=== PATIENT | male | born 1935 | race Caucasian/White ===

== ENCOUNTER 2017-05-15 23:10 | Emergency (ER) | payer MEDICARE, OTHER, SELFPAY ==
[2017-05-15 23:11] VITALS: BP 159/75; PULSE 98; RESP 16; TEMP 39.4; O2SAT 93; BMI 19.3
[2017-05-15 23:41] VITALS: BP 149/88; PULSE 94; RESP 26; O2SAT 94
--- NOTE | 2017-05-15 23:47 | RAD_ITS ---
STUDY: X-RAY CHEST REASON FOR EXAM: Male, 81 years old. Cough and fever TECHNIQUE: Frontal and lateral views of the chest were obtained. COMPARISON: None. FINDINGS: The lungs are hyperinflated. There are no focal airspace opacities. There is no demonstrated pleural abnormality. The cardiac silhouette is normal in size. The mediastinum and hilar regions are unremarkable. Normal visualized pulmonary arteries. There is atherosclerotic tortuosity of the thoracic aorta. There are diffuse degenerative changes of the visualized spine. There is marked decreased height of a lower thoracic vertebral body. The visualized ribs, clavicles, and shoulders are unremarkable. There is no demonstrated abnormality of the visualized upper abdomen. RAD/Chest PA and Lateral IMPRESSION: There is no evidence of focal consolidation or pleural effusion. Hyperinflation is consistent with COPD. There is marked compression of a lower thoracic vertebral body, acuity unknown without prior studies. Electronically Signed: Emily Ulloa MD at 2:07 EST Tel Direct: [phone], Service support ,
[2017-05-16] MEDS: Acetaminophen 500 MG Tablet 1000 MG PO (00:04)
[2017-05-16] MEDS: 0.9% Normal Saline 1,000 ML 150 ML IV (00:04)
[2017-05-16 00:33] LABS: Mucous, Urine 0 SEEN /hpf (<or=2+); Red Blood Cells-Urine 0 SEEN /hpf (0-5)
[2017-05-16 00:39] LABS: Absolute Lymphocyte Count 0.46 X10^3/ul (0.83-4.51); Absolute Neutrophil Count 4.2 X10^3/uL (2.0-7.7); Eosinophil# 0.01 X10^3/uL; Eosinophils% 0.2 % (0-5); Hematocrit 36.9 % (40-54); Hemoglobin 12.1 g/dl (13.0-16.5); Lymphocyte # 0.46 X10^3/ul (4.0); Lymphocyte % 9.4 % (19-41); Mean Corp Hgb Conc 32.8 g/gl (32-36); Mean Corpuscular Hgb 29.3 pg (27.0-32.0); Mean Corpuscular Volume 89.3 fL (80-94); Monocyte# 0.24 X10^3/uL; Monocyte% 4.9 % (0-10); Neutrophil # 4.16 X10^3/uL (2.7-7.7); Neutrophil % 85.3 % (47-70); Platelet Count 156 K/mm3 (150-450); RBC Distribution Width CV 14.9 % (11.6-14.6); RBC Distribution Width SD 47.8 fl (35.1-43.9); Red Blood Count 4.13 M/mm3 (4.6-6.2); White Blood Count 4.9 K/mm3 (4.4-11.0)
[2017-05-16 00:40] LABS: Differential Indicated SCAN CRITERIA MET; POSITIVE COUNT NO; POSITIVE DIFFERENTIAL YES; POSITIVE MORPHOLOGY NO
[2017-05-16 00:49] LABS: Color, Urine Yellow (Yellow); Glucose, Dipstick Normal (Normal); Ketone-Dipstick Negative (Negative); Leukocyte Esterase-Dipstick 100 /ul (Negative); Nitrite-Dipstick Negative (Negative); Occult Blood-Urine 150 /ul (Negative); Protein-Dipstick 30 mg/dl (Negative); Urine Bilirubin Dipstick Negative (Negative); Urine Clarity Clear (Clear); Urine Urobilinogen Normal (Normal)
[2017-05-16 00:53] LABS: Anion Gap 8 (5-15); BUN 21 mg/dL (7-18); BUN/Creat Ratio 19.4 RATIO (10-20); Calcium,Total 7.9 mg/dL (8.5-10.1); Chloride 99 mmol/L (98-107); Creatinine, Serum 1.08 mg/dL (0.70-1.30); EST Glomerular Filtration Rate 70 mL/min (>60); Est Glom Filt Rate - Afr Amer 84 mL/min (>60); Estimated Creatinine Clearance 46.46 ml/min; Glucose 109 mg/dL (74-106); Potassium 4.5 mmol/L (3.5-5.1); Sodium Level 133 mmol/L (136-145)
[2017-05-16 01:00] LABS: Bacteria RARE /hpf (None Seen); White Blood Cells 5-10 SEEN /hpf (0-5)
[2017-05-16 01:01] LABS: Squamous Epithelial Cells - UA 0-5 SEEN /hpf (0-5)
[2017-05-16 01:05] LABS: Anisocytosis RARE; Platelet Estimate ADEQUATE (ADEQ)
[2017-05-16 01:10] VITALS: BP 112/57; PULSE 79; RESP 19; O2SAT 96
[2017-05-16 01:53] VITALS: TEMP 37.7
--- NOTE | 2017-05-16 02:41 | ED.DCSUM_ITS ---
- ER Visit Summary Date of Service: 05/16/17 Chief Complaint: [] Fever and chills History of Present Illness: The patient is a 81 M complaining of fever chills weakness decreased energy cough occasional with yellow phlegm that started today. No flu shot. No home treatment. Comes in for further evaluation. Physical Examination: Vital signs reviewed. Temperature 102.9 General: Well-nourished well-developed Head: Normocephalic atraumatic Eyes: Pupils equal round and reactive to light extraocular movements intact ENT: TMs clear no hemotympanum no trauma Neck: Nontender full range of motion Cardiovascular: Regular rate rhythm no murmurs normal S1-S2 Respiratory: No distress clear to auscultation bilaterally chest nontender Abdomen: Soft nontender nondistended normal bowel sounds no masses Back: Nontender no CVA tenderness Extremities: Nontender active range of motion ?4 extremities no trauma Skin: Normal color no trauma Neuro alert oriented cranial nerves II through XII intact normal strength sensation reflexes Test Results: [] Emergency Department Course and Treatment: [] CBC normal except hemoglobin 12.1. 85 segs. Chemistries normal except sodium 133. Urinalysis shows only rare bacteria 5-10 white blood cells. Urine culture pending. Influenza negative. Chest x-ray shows no infiltrate. Chronic changes noted. Compression of his thoracic vertebral body noted. Patient given IV fluids Tylenol levofloxacin. Repeat temperature 99.8. He ambulated without difficulty after IV fluids. At this time I he likely has an early pneumonia. Is not showing up on chest x-ray yet but his symptoms are started today. He does not appear septic. No elevation in his white blood cell count. Will be discharged with levofloxacin. He will return if he worsens despite treatment. Treatment Plan: [] Disposition: [] Impression: [] Fever Respiratory illness suspected early pneumonia Mild hyponatremia This note was generated with [employer] dictation software. It may contain incorrect words, spelling, and punctuation that were not noted in review of the chart prior to signing ED Disposition - Plan for ED Patient: Chief Complaint: Weakness Referrals: Hakeem Frank III, MD [Primary Care Provider] -
--- NOTE | 2017-05-16 02:41 | ED.DEP ---
ED Disposition - Plan for ED Patient: Disposition: Home or Assisted Living Chief Complaint: Weakness Instructions: Pneumonia Treatment Prescriptions: Levofloxacin [Levaquin] 750 mg PO DAILY #7 tab Referrals: Hakeem Frank III, MD [Primary Care Provider] -
[2017-05-16] MEDS: levoFLOXacin 750 MG Tablet PO (02:47)
[2017-05-16 03:03] VITALS: BP 128/64; PULSE 79; RESP 18; O2SAT 95
== END 2017-05-16 03:04 | disposition home or self-care (01) ==
PROVIDERS: Emergency Provider Emergency Medicine; Family Provider Family Medicine; PCP Family Medicine
DX: J98.9 Respiratory disorder, unspecified (principal); E87.1 Hypo-osmolality and hyponatremia; R50.9 Fever, unspecified; C61 Malignant neoplasm of prostate; Z79.899 Other long term (current) drug therapy; Z72.0 Tobacco use
CPT/HCPCS: 71046; 80048; 81001; 85025; 87086; 87088; 87804; 96360; 96361; 99285; J7030; A4216

== ENCOUNTER 2017-05-18 07:13 | Inpatient (IN) | payer MEDICARE, OTHER, SELFPAY ==
[2017-05-18] VITALS (10 sets, daily range): BP systolic 114–158; BP diastolic 56–109; PULSE 82–105; RESP 18–90; TEMP 36.6–37.9; O2SAT 26–98; BMI 19.3; BMI 19.2
--- NOTE | 2017-05-18 07:58 | RAD_ITS ---
STUDY: X-RAY CHEST REASON FOR EXAM: Male, 81 years old. Cough. TECHNIQUE: Single AP portable view of the chest. COMPARISON: Comparison is made with prior examination dated May 16, 2017. FINDINGS: EKG electrodes are seen. Hyperinflation. Stable increased markings at the left lung base suggestive of scarring. There is no demonstrated pleural abnormality. Normal size heart. Normal mediastinum and bryan. There is prominence of the pulmonary hilar arteries without peripheral pulmonary vascular congestion, suggesting pulmonary hypertension. There is atherosclerotic tortuosity of the aortic arch and descending thoracic aorta. There is a mild levoscoliosis of the thoracic spine. Normal visualized ribs, clavicles, and shoulders. There is no demonstrated abnormality of the visualized soft tissue structures of the upper abdomen. RAD/Chest 1 View (Portable) IMPRESSION: Hyperinflation. Prominence of the pulmonary arteries bilaterally. Stable increased markings at the left lung base suggestive of scarring. Electronically Signed: Andres Rojas MD at 8:35 EST Tel [phone], Service support ,
--- NOTE | 2017-05-18 07:59 | EKG12_ITS ---
Test Reason : SOB Blood Pressure : / mmHG Vent. Rate : 090 BPM Atrial Rate : 090 BPM P-R Int : 130 ms QRS Dur : 080 ms QT Int : 348 ms P-R-T Axes : 087 081 076 degrees QTc Int : 425 ms Normal sinus rhythm Low voltage QRS (limb leads) Confirmed by MAGUI CRABTREE, EMIL ([id number]), editor news IRMA JUNIOR ([id number]) on 05/20/2017 1:22:07 PM Referred By: RENE Confirmed By:EMIL KILGORE MD
--- NOTE | 2017-05-18 08:06 | ED.DCSUM_ITS ---
- ER Visit Summary Date of Service: 05/18/17 Chief Complaint: Shortness of breath History of Present Illness: The patient is a 81 M presenting with shortness of breath. Patient was seen in the ED 2 days ago for fever and was diagnosed with pneumonia. He was sent home on Levaquin. Family states he has not been doing well since that time. He complains of generalized weakness and fatigue. He has increasing shortness of breath which is worse with exertion. He has had decreased appetite. He denies chest pain. Physical Examination: Vitals are stable. Patient is afebrile. Alert no acute distress. HEENT exam is unremarkable. Neck is supple. Lungs expiratory wheezing bilaterally Heart is regular rate and rhythm. Abdomen is soft nontender nondistended. Extremities are unremarkable. Skin is warm and dry. No focal neurologic deficit. Remainder of exam is unremarkable. Emergency Department Course and Treatment: He was given albuterol and atrovent aerosols. He has no diagnosis of COPD but he has a long history of smoking. He is given Solu-Medrol IV. EKG is sinus rate of 90 unchanged from previous. Chest x-ray shows hyperinflation. Influenza B positive. Chemistries show sodium 129. Troponin is negative. Lactic acid is normal. With ambulation after very short distance pulse ox went to 87% on room air. Discussed with Dr. Dey. Will be started on Tamiflu. He will be admitted. Disposition: Admission Impression: Influenza, hypoxia This note was generated with [employer] dictation software. It may contain incorrect words, spelling, and punctuation that were not noted in review of the chart prior to signing ED Disposition - Plan for ED Patient: Chief Complaint: Shortness of Breath Referrals: Hakeem Frank III, MD [Primary Care Provider] -
[2017-05-18] MEDS: Albuterol 2.5 MG/3 ML VIAL.NEB. INHALATION ×2 (08:16)
[2017-05-18] MEDS: Ipratropium/Albuterol Sulfate 3 ML AMPUL.NEB INHALATION (08:16)
[2017-05-18 09:09] LABS: Anion Gap 8 (5-15); BUN 13 mg/dL (7-18); BUN/Creat Ratio 13.4 RATIO (10-20); Calcium,Total 8.1 mg/dL (8.5-10.1); Chloride 95 mmol/L (98-107); Creatinine, Serum 0.97 mg/dL (0.70-1.30); EST Glomerular Filtration Rate 79 mL/min (>60); Est Glom Filt Rate - Afr Amer 96 mL/min (>60); Estimated Creatinine Clearance 51.73 ml/min; Glucose 86 mg/dL (74-106); Lactic Acid 1.1 mmol/L (0.4-2.0); Potassium 4.1 mmol/L (3.5-5.1); Sodium Level 129 mmol/L (136-145)
[2017-05-18 09:21] LABS: Absolute Lymphocyte Count 0.37 X10^3/ul (0.83-4.51); Absolute Neutrophil Count 1.3 X10^3/uL (2.0-7.7); Basophil# 0.01 X10^3/uL; Basophil% 0.5 % (0-1); Hematocrit 39.2 % (40-54); Hemoglobin 12.9 g/dl (13.0-16.5); Lymphocyte # 0.37 X10^3/ul (4.0); Lymphocyte % 19.5 % (19-41); Mean Corp Hgb Conc 32.9 g/gl (32-36); Mean Corpuscular Hgb 28.9 pg (27.0-32.0); Mean Corpuscular Volume 87.7 fL (80-94); Mean Platelet Vol. 9.6 fl (6.2-12.0); Monocyte# 0.18 X10^3/uL; Monocyte% 9.5 % (0-10); Neutrophil # 1.33 X10^3/uL (2.7-7.7); Platelet Count 115 K/mm3 (150-450); RBC Distribution Width CV 14.3 % (11.6-14.6); RBC Distribution Width SD 45.9 fl (35.1-43.9); Red Blood Count 4.47 M/mm3 (4.6-6.2); White Blood Count 1.9 K/mm3 (4.4-11.0)
[2017-05-18 09:51] LABS: Differential Comment SCANNED; Differential Indicated SCAN CRITERIA MET; POSITIVE COUNT NO; POSITIVE DIFFERENTIAL YES; POSITIVE MORPHOLOGY NO
[2017-05-18 10:11] LABS: Mucous, Urine 0 SEEN /hpf (<or=2+)
--- NOTE | 2017-05-18 10:18 | ED.RN ---
Report received, care of patient assumed.
[2017-05-18 10:24] LABS: Color, Urine Yellow (Yellow); Glucose, Dipstick Normal (Normal); Ketone-Dipstick 50 mg/dl (Negative); Leukocyte Esterase-Dipstick 100 /ul (Negative); Nitrite-Dipstick Negative (Negative); Occult Blood-Urine 250 /ul (Negative); Protein-Dipstick 30 mg/dl (Negative); Urine Bilirubin Dipstick Negative (Negative); Urine Clarity Clear (Clear); Urine Urobilinogen Normal (Normal)
[2017-05-18] MEDS: MethylPREDNISolone 125 MG/2 ML Vial IV (10:26)
[2017-05-18 10:41] LABS: Bacteria RARE /hpf (None Seen); Red Blood Cells-Urine 10-25 SEEN /hpf (0-5); Squamous Epithelial Cells - UA 0-5 SEEN /hpf (0-5); White Blood Cells 0-5 SEEN /hpf (0-5)
--- NOTE | 2017-05-18 13:16 | HP.PCM_ITS ---
Problem List (1) Influenza Status: Acute (2) Acute bronchitis Status: Acute (3) Prostatic cancer Status: Acute History of Present Illness Date of Admission: 05/18/17 Chief Complaint: Shortness of breath and cough shortness of breath and cough The patient is an 81 year old M who presented to the emergency room with shortness of breath and cough, he was seen in the emergency room on 05/16/2017 and diagnosed with early pneumonia and discharged home with oral Levaquin. He presented with worsening of his symptoms and hypoxia and tested positive for influenza today. Chest x-ray done today does not reveal any infiltrates consolidation to suggest pneumonia. The patient was started on Tamiflu, IV steroids, bronchodilator therapy an and admitted to the hospital for further management. When I saw him, he denied any fever , chills, chest pain, hemoptysis , nausea or vomiting. Past Medical History Allergies No Known Allergies Allergy (Verified 05/15/17 23:14) Home Medications: Ambulatory Orders Medication Instructions Recorded Bicalutamide [Casodex] 50 mg PO DAILY 05/18/17 Levofloxacin [Levaquin] 750 mg PO DAILY 05/18/17 Smoking Status: Current every day smoker - *Family History Maternal History Items: No pertinent history Review of Systems Comment: All Systems were reviewed with pertinent positives mentioned in the HPI above. VTE Information - Inpt Only VTE Present on Admission: Yes VTE Mechan Device Prophylaxis: SCD's VTE Pharm Prophylaxis ordered?: Yes VTE Suspected: Suspected DVT Patient Problems: Active and Suspected Problems Influenza (Acute) Acute bronchitis (Acute) Prostatic cancer (Acute) - Physical Exam General: Alert, Oriented x3 Neck: Supple, No JVD Lungs: Clear to auscultation, No wheeze Cardiovascular: Regular rate, Regular Rhythm, Normal S1, Normal S2 Abdomen: Bowel Sounds Present, Soft, Non Tender, Non-Distended Extremities: No edema Vital Signs Temp Pulse Resp BP Pulse Ox 100.2 F H 88 18 118/56 L 93 05/18/17 11:59 05/18/17 11:59 05/18/17 11:59 05/18/17 11:59 05/18/17 11:59 Oxygen Flow Rate 1.5 Oxygen Delivery Method Nasal Cannula Weight: 60.8 kg Body Mass Index (BMI) 19.2 Assessment/Plan Active and Suspected Problems Influenza (Acute) Acute bronchitis (Acute) Prostatic cancer (Acute) 1. Acute respiratory failure with hypoxia; continue on supplemental oxygen and wean as tolerated. 2. Acute Bronchitis due to influenza infection; we will continue on Tamiflu, IV steroids, antibiotics and BDLs. 3. History of prostatic CA; on Casodex 4. DVT Prophylaxis with Lovenox. Code Visit Inpatient E&M: 68804 Init Hosp L2
[2017-05-18] MEDS: levoFLOXacin 750 MG Tablet PO (14:01)
[2017-05-18] MEDS: Heparin Injection 5,000 UNITS/ML Syringe 5000 UNITS SC ×2 (14:02→21:12)
[2017-05-18] MEDS: Oseltamivir Phosphate 30 MG Capsule PO ×2 (14:02→21:13)
--- NOTE | 2017-05-18 14:04 | NURSING ---
Addendum entered by Elise Walter 05/18/17 14:06: Patient 93% spo2 when at rest in bed- per ER spo2 dropped to 87% when up walking. Original Note: Patient states that he had 44 radiation treatments for his prostate cancer and that he has a history of having a TURP. Notified that the cancer is in remission at this time. 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 Hollingsworth per patient and his .
[2017-05-18] MEDS: 0.9% Normal Saline 1,000 ML 100 ML IV (16:04)
[2017-05-18] MEDS: MethylPREDNISolone 125 MG/2 ML Vial 60 MG IV ×2 (16:26→21:13)
[2017-05-18] MEDS: 0.9% NaCl Peripheral Flush Adult/Peds IV (16:29)
[2017-05-19 02:00] VITALS: BP 138/72; PULSE 87; RESP 20; TEMP 36.3; O2SAT 93
[2017-05-19] MEDS: 0.9% Normal Saline 1,000 ML 100 ML IV ×3 (02:08→22:34)
[2017-05-19] MEDS: MethylPREDNISolone 125 MG/2 ML Vial 60 MG IV (06:08)
[2017-05-19 07:45] VITALS: O2SAT 94
[2017-05-19 07:55] VITALS: BP 134/78; PULSE 75; RESP 18; TEMP 36.9; O2SAT 95
[2017-05-19] MEDS: levoFLOXacin 750 MG Tablet PO (10:23)
[2017-05-19] MEDS: Heparin Injection 5,000 UNITS/ML Syringe 5000 UNITS SC ×2 (10:23→20:48)
[2017-05-19] MEDS: Oseltamivir Phosphate 30 MG Capsule PO ×2 (10:23→20:48)
--- NOTE | 2017-05-19 10:40 | CASEMGMT ---
NIMCO ROSENBERG ASSESSMENT: Complete. See attached link for complete assessment. Transition Planning: Patient will return home with support of his ; will be taking the next 10 days off work to stay with patient. Per nursing report, patient may need a walker at discharge. Per pt report, he wants to use a family member's walker. NIMCO ROSENBERG spoke to hospitalist, ordered PT/OT per verbal order. RN CHET will review PT/OT recommendations for DME, and if recommended will provide patient with script for DME, and patient can fill if he chooses. Verbal handoff provided to DANIEL ROSENBERG, POLINA HannahN, RN-BC, CCM
--- NOTE | 2017-05-19 10:46 | PCM.PN.HOSP ---
Patient Problems: Active and Suspected Problems Influenza (Acute) Acute bronchitis (Acute) Prostatic cancer (Acute) Subjective: CC: Cough and shortness of breath The patient's symptoms have improved with current therapy . He denies any fever or chills his appetite has improved. Vitals/I&O's: Vital Signs Temp Pulse Resp BP Pulse Ox 98.4 F 75 18 134/78 H 95 05/19/17 07:55 05/19/17 07:55 05/19/17 07:55 05/19/17 07:55 05/19/17 07:55 Oxygen Flow Rate 1 Oxygen Delivery Method Nasal Cannula Weight: 60.8 kg Body Mass Index (BMI) 19.2 Intake and Output for Last 24 Hours 05/17/17 05/18/17 05/19/17 23:59 23:59 23:59 Intake Total 690 / 690 1601 / 1601 Output Total 100 / 100 575 / 575 Balance 590 / 590 1026 / 1026 HEENT: Atraumatic Neck: Supple, No JVD Lungs: Clear to auscultation, Normal air movement Cardiovascular: Regular rate, Normal S1, Normal S2 Abdomen: Bowel Sounds Present, Soft, Non Tender Current Medications Bicalutamide (Casodex) 50 mg PO DAILY [facility] Last Admin: 05/19/17 10:23 Dose: 50 mg Heparin Sodium (Porcine) () 5,000 units SC BID [facility] Last Admin: 05/19/17 10:23 Dose: 5,000 units Sodium Chloride () 1,000 mls @ 100 mls/hr IV .Q10H [facility] Last Admin: 05/19/17 02:08 Dose: 100 mls/hr Levofloxacin (Levaquin) 750 mg PO DAILY [facility] Last Admin: 05/19/17 10:23 Dose: 750 mg Magnesium Hydroxide (Milk Of Magnesia) 30 ml PO DAILY PRN PRN PRN Reason: Constipation Methylprednisolone (Solu-Medrol) 60 mg IV Q8 [facility] Last Admin: 05/19/17 06:08 Dose: 60 mg Nutritional Formula (Lactose Free) (Ensure Enlive) 120 ml PO 4X/DAY [facility] Last Admin: 05/19/17 10:23 Dose: 120 ml Oseltamivir Phosphate (Tamiflu) 30 mg PO BID [facility] Stop: 05/22/17 22:01 Last Admin: 05/19/17 10:23 Dose: 30 mg Sodium Chloride () 5 - 30 ml IV UD PRN PRN Reason: SALINE FLUSH Last Admin: 05/18/17 16:29 Dose: 5 ml Assessment/Plan Active and Suspected Problems Influenza (Acute) Acute bronchitis (Acute) Prostatic cancer (Acute) 1. Acute respiratory failure with hypoxia; continue on supplemental oxygen and wean as tolerated. 2. Acute Bronchitis due to influenza infection; we will continue on Tamiflu, IV steroids, antibiotics and BDLs. 3. History of prostatic CA; on Casodex 4. DVT Prophylaxis with Lovenox. Code Visit Inpatient E&M: 94015 Subs Hosp L2
[2017-05-19 10:53] VITALS: O2SAT 92
--- NOTE | 2017-05-19 10:53 | PCM.PN.HOSP ---
Patient Problems: Active and Suspected Problems Influenza (Acute) Acute bronchitis (Acute) Prostatic cancer (Acute) Subjective: cc: Vitals/I&O's: Vital Signs Temp Pulse Resp BP Pulse Ox 98.4 F 75 18 134/78 H 92 05/19/17 07:55 05/19/17 07:55 05/19/17 07:55 05/19/17 07:55 05/19/17 10:53 Oxygen Flow Rate 1 Oxygen Delivery Method Room Air Weight: 60.8 kg Body Mass Index (BMI) 19.2 Intake and Output for Last 24 Hours 05/17/17 05/18/17 05/19/17 23:59 23:59 23:59 Intake Total 690 / 690 1601 / 1601 Output Total 100 / 100 575 / 575 Balance 590 / 590 1026 / 1026 Current Medications Bicalutamide (Casodex) 50 mg PO DAILY [facility] Last Admin: 05/19/17 10:23 Dose: 50 mg Heparin Sodium (Porcine) () 5,000 units SC BID [facility] Last Admin: 05/19/17 10:23 Dose: 5,000 units Sodium Chloride () 1,000 mls @ 100 mls/hr IV .Q10H [facility] Last Admin: 05/19/17 02:08 Dose: 100 mls/hr Levofloxacin (Levaquin) 750 mg PO DAILY [facility] Last Admin: 05/19/17 10:23 Dose: 750 mg Magnesium Hydroxide (Milk Of Magnesia) 30 ml PO DAILY PRN PRN PRN Reason: Constipation Methylprednisolone (Solu-Medrol) 60 mg IV Q8 [facility] Last Admin: 05/19/17 06:08 Dose: 60 mg Nutritional Formula (Lactose Free) (Ensure Enlive) 120 ml PO 4X/DAY [facility] Last Admin: 05/19/17 10:23 Dose: 120 ml Oseltamivir Phosphate (Tamiflu) 30 mg PO BID [facility] Stop: 05/22/17 22:01 Last Admin: 05/19/17 10:23 Dose: 30 mg Sodium Chloride () 5 - 30 ml IV UD PRN PRN Reason: SALINE FLUSH Last Admin: 05/18/17 16:29 Dose: 5 ml Assessment/Plan Active and Suspected Problems Influenza (Acute) Acute bronchitis (Acute) Prostatic cancer (Acute)
--- NOTE | 2017-05-19 11:11 | PN_ITS ---
Patient Problems: Active and Suspected Problems Influenza (Acute) Acute bronchitis (Acute) Prostatic cancer (Acute) Subjective: CC: Cough and shortness of breath The patient's symptoms have improved with current therapy . He denies any fever or chills his appetite has improved. Vitals/I&O's: Vital Signs Temp Pulse Resp BP Pulse Ox 98.4 F 75 18 134/78 H 95 05/19/17 07:55 05/19/17 07:55 05/19/17 07:55 05/19/17 07:55 05/19/17 07:55 Oxygen Flow Rate 1 Oxygen Delivery Method Nasal Cannula Weight: 60.8 kg Body Mass Index (BMI) 19.2 Intake and Output for Last 24 Hours 05/17/17 05/18/17 05/19/17 23:59 23:59 23:59 Intake Total 690 / 690 1601 / 1601 Output Total 100 / 100 575 / 575 Balance 590 / 590 1026 / 1026 HEENT: Atraumatic Neck: Supple, No JVD Lungs: Clear to auscultation, Normal air movement Cardiovascular: Regular rate, Normal S1, Normal S2 Abdomen: Bowel Sounds Present, Soft, Non Tender Current Medications Bicalutamide (Casodex) 50 mg PO DAILY [facility] Last Admin: 05/19/17 10:23 Dose: 50 mg Heparin Sodium (Porcine) () 5,000 units SC BID [facility] Last Admin: 05/19/17 10:23 Dose: 5,000 units Sodium Chloride () 1,000 mls @ 100 mls/hr IV .Q10H [facility] Last Admin: 05/19/17 02:08 Dose: 100 mls/hr Levofloxacin (Levaquin) 750 mg PO DAILY [facility] Last Admin: 05/19/17 10:23 Dose: 750 mg Magnesium Hydroxide (Milk Of Magnesia) 30 ml PO DAILY PRN PRN PRN Reason: Constipation Methylprednisolone (Solu-Medrol) 60 mg IV Q8 [facility] Last Admin: 05/19/17 06:08 Dose: 60 mg Nutritional Formula (Lactose Free) (Ensure Enlive) 120 ml PO 4X/DAY [facility] Last Admin: 05/19/17 10:23 Dose: 120 ml Oseltamivir Phosphate (Tamiflu) 30 mg PO BID [facility] Stop: 05/22/17 22:01 Last Admin: 05/19/17 10:23 Dose: 30 mg Sodium Chloride () 5 - 30 ml IV UD PRN PRN Reason: SALINE FLUSH Last Admin: 05/18/17 16:29 Dose: 5 ml Assessment/Plan Active and Suspected Problems Influenza (Acute) Acute bronchitis (Acute) Prostatic cancer (Acute) 1. Acute respiratory failure with hypoxia; continue on supplemental oxygen and wean as tolerated. 2. Acute Bronchitis due to influenza infection; we will continue on Tamiflu, IV steroids, antibiotics and BDLs. 3. History of prostatic CA; on Casodex 4. DVT Prophylaxis with Lovenox. Code Visit Inpatient E&M: 25909 Subs Hosp L2
[2017-05-19 14:15] VITALS: BP 121/70; PULSE 76; RESP 16; TEMP 36.8; O2SAT 95
[2017-05-19 14:41] LABS: Pathologist Review Reviewed
[2017-05-19 20:15] VITALS: BP 119/70; PULSE 72; RESP 20; TEMP 36.7; O2SAT 94
[2017-05-19] MEDS: 0.9% NaCl Peripheral Flush Adult/Peds IV (21:11)
[2017-05-20 02:15] VITALS: BP 127/71; PULSE 72; RESP 20; TEMP 37.1; O2SAT 92
[2017-05-20 07:20] VITALS: O2SAT 91
[2017-05-20 07:27] VITALS: BP 132/75; PULSE 65; RESP 16; TEMP 37; O2SAT 98
[2017-05-20] MEDS: 0.9% Normal Saline 1,000 ML 100 ML IV (08:38)
[2017-05-20] MEDS: levoFLOXacin 750 MG Tablet PO (08:39)
[2017-05-20] MEDS: Oseltamivir Phosphate 30 MG Capsule PO (08:39)
[2017-05-20] MEDS: Heparin Injection 5,000 UNITS/ML Syringe 5000 UNITS SC (08:39)
--- NOTE | 2017-05-20 10:23 | PCM.DC ---
- Discharge Diagnoses Current Active Problems: Current Active and Chronic Problems Influenza (Acute) Acute bronchitis (Acute) Prostatic cancer (Acute) You will use the following diet at home:: No restrictions Your food should be the consistency of: Regular Discharge Activity: Return to Normal Activity Allergies/Adverse Reactions: Allergies No Known Allergies Allergy (Verified 05/15/17 23:14) Medications to take at Discharge Bicalutamide [Casodex] 50 mg PO DAILY 05/18/17 Levofloxacin [Levaquin] 750 mg PO DAILY 05/18/17 Oseltamivir Phosphate [Tamiflu] 30 mg PO BID 3 Days cap 05/20/17 The following prescriptions were given: Oseltamivir Phosphate [Tamiflu] 30 mg PO BID 3 Days cap Primary Care Physician: Hakeem Frank III, MD [Primary Care Provider] - In 1 Week Proposed Discharge Date: 05/20/17
--- NOTE | 2017-05-20 10:29 | DS.PCM_ITS ---
Discharge Date and Diagnosis - Problem List Patient Problems: Active and Suspected Problems Influenza (Acute) Acute bronchitis (Acute) Prostatic cancer (Acute) Date of Admission: 05/18/17 Date of Discharge: 05/20/17 - Primary Discharge Diagnosis Active and Suspected Problems Influenza (Acute) Acute bronchitis (Acute) Prostatic cancer (Acute) Hospital Course and Treatment Consultations 05/18/17 12:31 Consult: Onc/Wound/public health physician Routine Comment: Admitted 05/18 at 1200 Reason for Consult:: Coccyx wound Comments:: Stage II, painful. Butterfly-shaped mepilex applied. Summary of Care Provided: The patient is an 81 year old M who presented to the emergency room with shortness of breath and cough, he was seen in the emergency room on 05/16/2017 and diagnosed with early pneumonia and discharged home with oral Levaquin. He presented with worsening of his symptoms and hypoxia and tested positive for influenza today. Chest x-ray done in the ED did not show any infiltrates consolidation to suggest pneumonia. The patient was started on Tamiflu, IV steroids, bronchodilator therapy an and admitted to the hospital for further management. The patient improved with treatment he is currently at his baseline he remains clinically stable and was then discharged home in a stable condition. Physical exam at the time of discharge; vital signs were stable. He was alert and oriented to time place and person. He did not appear to be any form of distress. S1 and S2 heard no murmur or gallop Lung exam was clear to auscultation with no adventitious sounds. Abdomen was soft nontender with normal bowel sounds. extremity exam did not reveal any edema, palpable pulses bilaterally. Neurologic exam was grossly intact. Discharge Diet: No Restrictions Discharge Activity: Return to Normal Activity Home Medications: Medications to take at Discharge Bicalutamide [Casodex] 50 mg PO DAILY 05/18/17 Levofloxacin [Levaquin] 750 mg PO DAILY 05/18/17 Oseltamivir Phosphate [Tamiflu] 30 mg PO BID 3 Days cap 05/20/17 Following Prescrptions Were Given to Patient: Oseltamivir Phosphate [Tamiflu] 30 mg PO BID 3 Days cap Primary Care Physician: Hakeem Frank III, MD [Primary Care Provider] - In 1 Week Disposition: Home Meaningful Use Info Meaningful Use Diagnoses (Choose all that apply): None applicable Code Visit Inpatient E&M: 29995 Disch Hosp
--- NOTE | 2017-05-20 11:40 | CASEMGMT ---
Script for wheeled walker given to . they do not wish to have a walker delivered to hospital. Reviewed DC needs. Declined any further assistance. Pt has ride home and assistance at home if needed. Romelia FISHN RN ACM
== END 2017-05-20 12:25 | disposition home or self-care (01) | DRG 193 ==
LOC: ED 07:53 → MS2 10:48
PROVIDERS: Admitting Provider Internal Medicine; Emergency Provider Emergency Medicine; Family Provider Family Medicine; PCP Family Medicine; Visit Provider Internal Medicine
DX: J10.1 Influenza due to other identified influenza virus with other respiratory manifestations (principal); J96.01 Acute respiratory failure with hypoxia; C61 Malignant neoplasm of prostate; Z79.899 Other long term (current) drug therapy; J20.9 Acute bronchitis, unspecified; F17.200 Nicotine dependence, unspecified, uncomplicated
CPT/HCPCS: 71045; 71046; 80048; 81001; 83605; 84484; 85025; 87086; 87088; 87804; 93005; 94640; 96360; 96361; 97162; 97165; 97802; 99285; 99406; J7030; A4216

== ENCOUNTER → 2017-07-09 10:40 | Outpatient (CLI) | payer MEDICARE, OTHER, SELFPAY ==
[2017-07-09 11:53] LABS: PSA,Total- Diagnostic < 0.01 ng/mL (0.0-4.0)
== END ==
PROVIDERS: Family Provider Family Medicine; PCP Family Medicine; Visit Provider Urology
DX: C61 Malignant neoplasm of prostate (principal)
CPT/HCPCS: 36415; 84153

== ENCOUNTER 2017-10-22 00:40 | Emergency (ER) | payer MEDICARE, OTHER, SELFPAY ==
[2017-10-22 00:44] VITALS: BP 149/79; PULSE 72; RESP 17; TEMP 36.8; O2SAT 95; BMI 18.4
--- NOTE | 2017-10-22 01:47 | ED.VISSUMM ---
- ER Visit Summary Date of Service: 10/22/17 Chief Complaint: Unable to urinate History of Present Illness: The patient is a 81 M presents with complaints of difficulty with urination. He states he has had only dribbling of urine since noon today. He states he was having suprapubic pain associated with this. While in the emergency department he states his pain is completely resolved. He is able to urinate. He does not want to have a Vargas catheter placed at this time. He states he has had multiple catheters in the past. He denies other complaints. Physical Examination: Vitals are stable. Patient is afebrile. Alert no acute distress. HEENT exam is unremarkable. Lungs are clear and equal bilaterally. Heart is regular rate and rhythm. Abdomen is soft nontender nondistended. No guarding or rebound Extremities are unremarkable. Skin is warm and dry. Remainder of exam is unremarkable. Emergency Department Course and Treatment: Patient was able to urinate in the emergency department. Urinalysis shows 5-10 white blood cells, 25-50 red blood cells. Urine culture was sent. He was started on Keflex. He is advised to follow-up with Dr. Hollingsworth. Advised to return to ED for any worsening complaints. Disposition: Discharge home Impression: UTI This note was generated with [employer] dictation software. It may contain incorrect words, spelling, and punctuation that were not noted in review of the chart prior to signing ED Disposition - Plan for ED Patient: Chief Complaint: Complaint Referrals: Hakeem Frank III, MD [Primary Care Provider] -
[2017-10-22 02:00] LABS: Mucous, Urine 0 SEEN /hpf (<or=2+)
[2017-10-22 02:01] LABS: Color, Urine Yellow (Yellow); Glucose, Dipstick Normal (Normal); Ketone-Dipstick 5 mg/dl (Negative); Leukocyte Esterase-Dipstick 500 /ul (Negative); Nitrite-Dipstick Negative (Negative); Occult Blood-Urine 250 /ul (Negative); Protein-Dipstick 100 mg/dl (Negative); Urine Bilirubin Dipstick Negative (Negative); Urine Clarity Sl. Cloudy (Clear); Urine Urobilinogen 1 mg/dl (Normal)
[2017-10-22 02:08] LABS: Bacteria RARE /hpf (None Seen); Red Blood Cells-Urine 25-50 SEEN /hpf (0-5); Squamous Epithelial Cells - UA 0-5 SEEN /hpf (0-5); White Blood Cells 5-10 SEEN /hpf (0-5)
--- NOTE | 2017-10-22 02:21 | ED.DEP ---
ED Disposition - Plan for ED Patient: Chief Complaint: Complaint Instructions: ED UTI Cystitis Male Prescriptions: Cephalexin [Keflex] 500 mg PO BID #14 capsule Referrals: Hakeem Frank III, MD [Primary Care Provider] - Gildardo Hollingsworth MD [STAFF PHYSICIAN] -
[2017-10-22] MEDS: Cephalexin 250 MG Capsule 500 MG PO (02:27)
[2017-10-22 02:30] VITALS: BP 135/96; PULSE 72; RESP 15; O2SAT 97
== END 2017-10-22 02:31 | disposition home or self-care (01) ==
LOC: ED 01:37
PROVIDERS: Emergency Provider Emergency Medicine; Family Provider Family Medicine; PCP Family Medicine
DX: N39.0 Urinary tract infection, site not specified (principal); Z85.46 Personal history of malignant neoplasm of prostate; Z72.0 Tobacco use
CPT/HCPCS: 81001; 87086; 87088; 99283

== ENCOUNTER 2017-12-16 05:38 | Day surgery (SDC) | payer MEDICARE, OTHER, SELFPAY ==
[2017-12-16 06:10] VITALS: BP 124/71; PULSE 74; RESP 16; TEMP 36.5; O2SAT 96; BMI 18.9
[2017-12-16] MEDS: Cefazolin 2 GM in 0.9% Normal Saline 100 ML IV (07:00)
--- NOTE | 2017-12-16 07:29 | DCINST_ITS ---
Discharge Diet: Light diet - advance as tolerated Discharge Activity: Return to Normal Activity Allergies/Adverse Reactions: Allergies No Known Allergies Allergy (Verified 12/09/17 10:57) Medications to take at Discharge Ciprofloxacin [Cipro] 500 mg PO BID #6 tab 12/16/17 The following prescriptions were given: Ciprofloxacin [Cipro] 500 mg PO BID #6 tab Primary Care Physician: Hakeem Frank III, MD [Primary Care Provider] - Test Results: Test results from this visit will be discussed in further detail at your follow- up appointment, if applicable. Please Follow Up With: Gildardo Hollingsworth MD When: COME IN ON THURSDAY TO HAVE NURSE MATILDA RHODES
--- NOTE | 2017-12-16 07:55 | OP.PCM_ITS ---
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 82-year-old male taken back to the operating room after smooth induction of MAC local he is placed in dorsal lithotomy position the penis testicles are prepped and draped in usual sterile fashion I went into the bladder with a 21 Croatian rigid cystourethroscope when along the course of the urethra get into the bladder grabbed the existing stent pulled out the meatus advanced a wire up into the kidney under fluoroscopic guidance once a wire was in good position within the kidney backloaded over the wire with the scope and then advanced a new stent 6 Croatian by 26 centimeter stent into the left kidney. Once a stent was in good position and the kidney pulled the wire stent coiled in The kidney and bladder good position I drain the bladder put a 16 catheter in the bladder in patient anesthetic was reversed and he will see us on Thursday to get the catheter out. Type of Anesthesia:: Local MAC Drains: stent - Admit VTE Documentation VTE Present on Admission: No VTE Mechan Device Prophylaxis: SCD's
[2017-12-16 08:04] VITALS: BP 124/71; BP 128/69; PULSE 70; RESP 16; TEMP 36.3; O2SAT 100
[2017-12-16 08:09] VITALS: BP 124/71; BP 138/64; PULSE 71; RESP 17; O2SAT 100
[2017-12-16 08:14] VITALS: BP 124/71; BP 129/75; PULSE 76; RESP 16; O2SAT 100
[2017-12-16 08:19] VITALS: BP 124/71; BP 135/74; PULSE 81; RESP 16; TEMP 36.4; O2SAT 97
[2017-12-16] MEDS: Acetaminophen 325 MG Tablet 650 MG PO (08:42)
[2017-12-16 08:58] VITALS: BP 124/71
== END 2017-12-16 09:01 | disposition home or self-care (01) ==
LOC: SDC 05:38 → AC 05:39
PROVIDERS: Family Provider Family Medicine; PCP Family Medicine; Visit Provider Urology
PROC: (CPT 52310; principal; 2017-12-16 07:20)
DX: N13.1 Hydronephrosis with ureteral stricture, not elsewhere classified (principal); Z85.46 Personal history of malignant neoplasm of prostate; N40.1 Benign prostatic hyperplasia with lower urinary tract symptoms; R35.1 Nocturia; F17.200 Nicotine dependence, unspecified, uncomplicated
CPT/HCPCS: 51702; 52332; 76000; J7120; C1769; C2617

== ENCOUNTER → 2018-04-12 14:47 | Outpatient (CLI) | payer MEDICARE, OTHER, SELFPAY ==
[2018-04-12 15:44] LABS: Hematocrit 41.5 % (40-54); Hemoglobin 13.3 g/dl (13.0-16.5); Mean Corpuscular Hgb 30.4 pg (27.0-32.0); Mean Platelet Vol. 9.1 fl (6.2-12.0); Platelet Count 232 K/mm3 (150-450); RBC Distribution Width CV 13.3 % (11.6-14.6); RBC Distribution Width SD 46.1 fl (35.1-43.9); Red Blood Count 4.37 M/mm3 (4.6-6.2); White Blood Count 4.6 K/mm3 (4.4-11.0)
[2018-04-12 15:51] LABS: Scan Indicated on CBC? Y/N NO
[2018-04-12 16:28] LABS: Anion Gap 8 (5-15); BUN 15 mg/dL (7-18); BUN/Creat Ratio 14.6 RATIO (10-20); Calcium,Total 8.8 mg/dL (8.5-10.1); Chloride 99 mmol/L (98-107); Creatinine, Serum 1.03 mg/dL (0.70-1.30); EST Glomerular Filtration Rate 73 mL/min (>60); Est Glom Filt Rate - Afr Amer 89 mL/min (>60); Glucose 80 mg/dL (74-106); PSA,Total- Diagnostic 0.05 ng/mL (0.0-4.0); Potassium 4.4 mmol/L (3.5-5.1); Sodium Level 136 mmol/L (136-145)
== END ==
PROVIDERS: Family Provider Family Medicine; PCP Family Medicine; Referring Provider Urology; Visit Provider Urology
DX: C61 Malignant neoplasm of prostate (principal)
CPT/HCPCS: 36415; 80048; 84153; 85027

== ENCOUNTER → 2018-05-10 17:29 | Outpatient (CLI) | payer MEDICARE, OTHER, SELFPAY ==
--- NOTE | 2018-05-10 17:32 | CT_ITS ---
We are attempting to reach Nithin Thurston to discuss findings. An addendum with communication details will be sent when the communication is complete. STUDY: LOW DOSE CT LUNG CANCER SCREENING REASON FOR EXAM: Male, 82 years old. RADIATION DOSAGE (If Supplied By Facility): CTDIvol = ( 2.01 ) mGy, DLP = ( 78.26 ) mGycm TECHNIQUE: No contrast was administered. Low dose technique was utilized (average mAS-38 and kVp 120). 1.25 mm axial source images with a slice interval of 1.25-mm were reconstructed in lung windows. 2.5 mm axial source images with a slice interval of 2.5-mm were reconstructed in lung windows. 5.0 mm axial source images with a slice interval of 5.0-mm were reconstructed in soft tissue windows. Nodule measured using lung windows on PACS and/or independent workstation with automated measurement of minimum and maximum diameter. Nodule measurement reported as average diameter rounded to the nearest whole number. Growth is defined as an increase ins size of greater than 1.5 mm. COMPARISON: None. NODULES: There is a suspicious spiculated nodule in the posterior basal segment of the left lung lower lobe axial image #173 measures 17 mm suggesting a neoplastic process. There is irregular scarring in the right lung lower lobe. There is no demonstrated pleural abnormality. Normal heart and pericardium. Normal mediastinum. Normal hilar regions. Normal unenhanced pulmonary arteries. Normal aorta arch and descending thoracic aorta. There is demineralization of the thoracic spine. Multiple old compression fractures are seen in the lower thoracic and upper lumbar spine. There is no demonstrated abnormality of the visualized upper abdomen. CT/Low Dose CT Lung Screening IMPRESSION: Lung-RADS category 4. There is a suspicious spiculated nodule in the posterior basal segment of the left lung lower lobe axial image #173 measures 17 mm suggesting a neoplastic process. Recommendation: CT-guided biopsy. IMPORTANT NOTES FOR USE: ACR Lung-RADS Version 1.0 Assessment Categories Release Date: July 25, 2013 Category: Coded 0-4 bases on nodule(s) with highest degree of suspicion. Negative screen is defined as categories 1 and 2; a positive screen is defined as categories 3 and 4. Category 3 and 4A nodules that are unchanged on interval CT should be coded as category 2, and individuals returned to screening in 12 months. Category 4X: Category 3 or 4 nodules with additional imaging findings that increase the suspicion of lung cancer, such as spiculation, GGN that doubles in size in 1 year, enlarged lymph notes, etc. Category Modifiers: S (significant finding unrelated to lung cancer) and C (prior history of treated lung cancer) may be added to the 0-4 Lung-RADS Electronically Signed: Kike Finnegan MD at 6:14 EST Tel , Service support ,
== END ==
PROVIDERS: Family Provider Family Medicine; PCP Family Medicine; Referring Provider Radiology Radiation Oncology; Visit Provider Radiology Radiation Oncology
DX: Z12.2 Encounter for screening for malignant neoplasm of respiratory organs (principal); Z87.891 Personal history of nicotine dependence; Z85.46 Personal history of malignant neoplasm of prostate
CPT/HCPCS: G0297

== ENCOUNTER → 2018-06-14 08:25 | Outpatient (CLI) | payer MEDICARE, OTHER, SELFPAY ==
--- NOTE | 2018-06-14 07:06 | PET_ITS ---
EXAMINATION: FDG PET CT INDICATIONS: An 82-year-old male with history of carcinoma of the prostate and apparent pulmonary nodularity. COMPARISON EXAMINATION: CT of the chest report dated 05/10/18. INDEX LESION SIZE SUV INTERPRETATION Left mid posterior lung field, left lower lobe 13.5 mm (frame 176) 1.6 Quantitative criteria for viable neoplasm are not fulfilled, sequential radiologic investigation recommended Left lower posterobasilar hemithorax pulmonary parenchyma, left lower lobe 32.7 mm (frame 142) 1.9 Quantitative criteria for viable neoplasm are not fulfilled, sequential radiologic investigation recommended TECHNIQUE: Following the intravenous administration of 16.5 mCi of F-18 deoxyglucose via the left forearm, multiplanar image acquisitions of the neck, chest, abdomen and pelvis to level of mid thigh, obtained at one hour post radiopharmaceutical administration contemporaneously interpreted with the current CT of the neck, chest, abdomen and pelvis to level of mid thigh, dated 06/14/[address] of the chest report dated 05/10/18 reveal: SERUM GLUCOSE LEVEL: 96 mg/dl. HEIGHT: 69 inches. WEIGHT: 135 lbs. FINDINGS: 1. An increase in glucose metabolism, nodular in presentation, is defined in the left mid posterior lung zone. The calculated maximum standard uptake value is 1.6. Uptake corresponds to a noncalcified approximately 13.5 mm spiculated density localized to the superior segment of the left lower lobe. 2. There is enhanced FDG concentration demonstrated in the left lower posterobasilar hemithorax pulmonary parenchyma generating a calculated maximum standard uptake value of 1.9. The maximal axial diameter of the largest parenchymal density on review of CT of the chest dated 06/14/18 is 32.7 mm (transverse). 3. Normal physiologic distribution of the radiopharmaceutical is apparent in the hepatic (2.6) and splenic parenchyma, both renal units, bladder and visualized intestinal tract. There is uniform distribution of the radiopharmaceutical concentration defined in the visualized cerebellar hemispheres and cerebral cortical structures.? Diffuse intestinal tract activity is noted throughout all four quadrants of the abdominal-pelvic retroperitoneum, mesentery consistent with normal physiologic distribution of the radiopharmaceutical. Pertinent CT findings are as follows. CHEST: Emphysematous change is noted in the bilateral upper lung zones. Parenchymal densities previously described in the bilateral hemithorax demonstrate no evidence of quantitatively significant increased glucose metabolism. Atherosclerotic calcification is defined in the thoracic aorta without evidence of dilatation, aneurysm formation. Coronary arterial calcification is observed. Mediastinal soft tissue densities are ametabolic. ABDOMEN AND PELVIS: Cholelithiasis is defined. A right ureteral stent is visualized. Surgical clips are identified in the lower pelvis. Atherosclerotic calcification is defined in the abdominal aorta without evidence of dilatation, aneurysm formation. Pelvic arterial calcification is observed. SKELETAL: Degenerative changes defined in the cervical, thoracic and lumbar spine demonstrate no evidence for glucose hypermetabolism. Diffuse demineralization is defined. PET/PET/CT Tumor Base -Thigh Init IMPRESSION: 1. NEGATIVE EXAMINATION. There is no definitive quantitative scintigraphic evidence of recurrent-metastatic viable neoplasm. 2. Subtle increased glucose concentration noted in several locations within the left hemithorax pulmonary parenchyma, left lower lobe does not fulfill quantitative criteria for viable neoplasm. (Jess et al, Annals of Internal Medicine, 138:724, 2003). 3. Metabolic and/or anatomic stability may be ensured in the left hemithorax pulmonary parenchymal-left lower lobe abnormalities with repeat FDG PET study and/or CT of the thorax in three months. (Xiu, Journal of Nuclear Medicine 45:88, P2004. Natasha, Seminars in Thoracic and Cardiovascular Surgery 14:292, 2002). Electronic Signature Bigg Yan D.O. Electronically Signed: Bigg Yan DO at 23:20 EDT Tel , Service support ,
== END ==
PROVIDERS: Family Provider Family Medicine; PCP Family Medicine; Visit Provider Internal Medicine Pulmonary Disease
DX: R91.1 Solitary pulmonary nodule (principal)
CPT/HCPCS: 78815; A9552

== ENCOUNTER → 2018-08-30 | Outpatient (CLI) | payer MEDICARE, OTHER, SELFPAY ==
[2018-08-30 10:05] LABS: Hematocrit 42.9 % (40-54); Hemoglobin 14.2 g/dl (13.0-16.5); Mean Corp Hgb Conc 33.1 g/gl (32-36); Mean Corpuscular Hgb 30.3 pg (27.0-32.0); Mean Corpuscular Volume 91.7 fL (80-94); Mean Platelet Vol. 9.1 fl (6.2-12.0); Platelet Count 204 K/mm3 (150-450); RBC Distribution Width CV 14.5 % (11.6-14.6); RBC Distribution Width SD 48.8 fl (35.1-43.9); Red Blood Count 4.68 M/mm3 (4.6-6.2); White Blood Count 4.4 K/mm3 (4.4-11.0)
[2018-08-30 10:10] LABS: Scan Indicated on CBC? Y/N NO
[2018-08-30 10:31] LABS: Anion Gap 8 (5-15); BUN 15 mg/dL (7-18); BUN/Creat Ratio 15.3 RATIO (10-20); Calcium,Total 8.8 mg/dL (8.5-10.1); Chloride 98 mmol/L (98-107); Creatinine, Serum 0.98 mg/dL (0.70-1.30); EST Glomerular Filtration Rate 78 mL/min (>60); Est Glom Filt Rate - Afr Amer 94 mL/min (>60); Glucose 86 mg/dL (74-106); PSA,Total- Diagnostic 0.03 ng/mL (0.0-4.0); Potassium 4.3 mmol/L (3.5-5.1); Sodium Level 136 mmol/L (136-145)
== END | disposition home or self-care (01) ==
LOC: LAB 09:32
PROVIDERS: Family Provider Family Medicine; PCP Family Medicine; Referring Provider Urology; Visit Provider Urology
DX: C61 Malignant neoplasm of prostate (principal)
CPT/HCPCS: 36415; 80048; 84153; 85027

== ENCOUNTER → 2018-09-13 09:13 | Outpatient (CLI) | payer MEDICARE, OTHER, SELFPAY ==
--- NOTE | 2018-09-13 09:19 | EKG12_ITS ---
Test Reason : PRE-OP Blood Pressure : / mmHG Vent. Rate : 088 BPM Atrial Rate : 088 BPM P-R Int : 142 ms QRS Dur : 086 ms QT Int : 348 ms P-R-T Axes : 087 088 081 degrees QTc Int : 421 ms Sinus rhythm with occasional Premature ventricular complexes Otherwise normal ECG Confirmed by SHA CRABTREE, MAVIS ([id number]), publication editor ALLISON ROSADO ([id number]) on 09/14/2018 9:33:52 AM Referred By: Gildardo Hollingsworth Confirmed By:MAVIS DALTON MD
== END ==
PROVIDERS: Family Provider Family Medicine; PCP Family Medicine; Referring Provider Urology; Visit Provider Urology
DX: Z01.812 Encounter for preprocedural laboratory examination (principal)
CPT/HCPCS: 93005

== ENCOUNTER → 2018-10-14 12:27 | Outpatient (CLI) | payer MEDICARE, OTHER, SELFPAY ==
--- NOTE | 2018-10-14 12:29 | CT_ITS ---
STUDY: CT CHEST WITHOUT CONTRAST REASON FOR EXAM: Male, 82 years old. History of lung nodule. Prostate cancer. RADIATION DOSAGE (If Supplied By Facility): CTDIvol = ( 7.62 ) mGy, DLP = ( 302.61 ) mGycm TECHNIQUE: Transaxial imaging was performed without the administration of intravenous contrast material. Multiplanar coronal and sagittal images were reformatted. Individualized dose optimization techniques were used for this CT. COMPARISON: Comparison is made with prior examination dated May 10, 2018. FINDINGS: Mild degree of emphysematous changes worse in the upper lobes. Stable mild linear scarring at the lung apices. Stable stable 1.6 cm x 0.6 cm spiculated nodule in the superior segment of the left lower lobe. Stable 4 mm noncalcified nodule in the posterior medial aspect of the superior segment of the right lower lobe. Once again, there is evidence of a 1.5 cm x 0.9 cm speckled air nodule in the posteromedial segment of the left lower lobe as seen on axial image #89. Since prior study, there has been progressive bronchiectasis and scarring in the right lower lobe with at least 2 nodular densities measuring 1.2 cm and 2.3 cm and a second measuring 1.5 cm x 0.9 cm. These are new as compared to prior study. Correlation with PET scan is recommended for further evaluation. There is no demonstrated pleural abnormality. There are calcifications of the coronary arteries. Normal mediastinum. Normal hilar regions. Normal unenhanced pulmonary arteries. There is atherosclerotic calcification of the aortic arch. There are multi-level degenerative changes of the thoracic spine. Loss of height of the T11 and T12 vertebrae. These are unchanged. There is no demonstrated abnormality of the visualized upper abdomen. CT/Chest without Contrast IMPRESSION: Interval enlargement of nodular densities in the right lower lobe with progressive bronchiectasis and scarring in the right lower lobe. Stable nodule in the left lung. Correlation with a PET scan is recommended for further evaluation. Electronically Signed: Andres Rojas, at 8:40 EDT , Service support ,
== END ==
PROVIDERS: Family Provider Family Medicine; PCP Family Medicine; Referring Provider Internal Medicine Pulmonary Disease; Visit Provider Internal Medicine Pulmonary Disease
DX: R91.1 Solitary pulmonary nodule (principal)
CPT/HCPCS: 71250

== ENCOUNTER → 2018-10-28 16:12 | Outpatient (CLI) | payer MEDICARE, OTHER, SELFPAY | PROVIDERS: Family Provider Family Medicine; PCP Family Medicine; Referring Provider Urology; Visit Provider Urology | DX: N39.0 Urinary tract infection, site not specified (principal) | CPT/HCPCS: 87077; 87086; 87088; 87186 ==

== ENCOUNTER → 2018-11-08 10:19 | Outpatient (CLI) | payer MEDICARE, OTHER, SELFPAY ==
--- NOTE | 2018-11-08 11:00 | PET_ITS ---
EXAMINATION: FDG PET/CT INDICATIONS: An 83-year-old male with reported history of carcinoma of the prostate presenting for restaging examination and reevaluation of pulmonary nodularity. COMPARISON EXAMINATION: Prior FDG PET study dated 06/14/18, CT of the chest report dated 10/14/18 INDEX LESION SIZE SUV INTERPRETATION PERSISTENT: left mid posterior lung field, left lower lobe 13.3-mm (frame 174) comp. to 13.5-mm (06/14/18) 1.5 comp. to 1.6 (06/14/18) Quantitative criteria for viable neoplasm are not fulfilled, sequential radiologic investigation recommended NEW: right lower posteromedial hemithorax pulmonary parenchyma, right lower lobe 31.5-mm (frame 141) 1.6 Quantitative criteria for viable neoplasm are not fulfilled, sequential radiologic investigation recommended PREVIOUS: left lower post-basilar hemithorax pulmonary parenchyma, left lower lobe Demonstrates metabolic resolution on the current examination NON-INDEX LESION SIZE SUV INTERPRETATION Tenth thoracic vertebra anterior element, vertebral body 1.7 Quantitative criteria for viable neoplasm are not fulfilled TECHNIQUE: Following the intravenous administration of 16.9 mCi of F-18 deoxyglucose via the left forearm, multiplanar image acquisitions of the neck, chest, abdomen and pelvis to level of mid thigh, obtained at one hour post radiopharmaceutical administration contemporaneously interpreted with the current CT of the neck, chest, abdomen and pelvis to level of mid thigh, dated 11/08/18 via coregistration and previous FDG PET study dated 06/14/18, CT of the chest report dated 10/14/18 reveal: SERUM GLUCOSE LEVEL: 89 mg/dl. HEIGHT: 70 inches. WEIGHT: 130 lbs. FINDINGS: 1. Persistent increased glucose metabolism is defined in the left mid posterior lung field, left lower lobe, generating a current calculated maximal standard uptake value of 1.5, compared to 1.6 defined on the FDG PET study dated 06/14/18. The current maximal axial diameter of the corresponding parenchymal density on review of CT of the chest dated 11/08/18 is 13.3-mm (AP). 2. Newly identified enhanced FDG concentration is noted in the right lower posterior, posteromedial hemithorax pulmonary parenchyma rendering a calculated maximal standard uptake value of 1.6. Quantitative criteria for viable neoplasm are not fulfilled. The maximal axial diameter of the linear density on review of CT of the chest dated 11/08/18 is 31.5-mm (transverse). 3. Normal physiologic distribution of the radiopharmaceutical is apparent in the hepatic (2.9/2.6) and splenic parenchyma, both renal units, bladder and visualized intestinal tract. The visualized portion of the cerebral cortex demonstrate symmetric and preserved glucose metabolism. Diffuse radiopharmaceutical concentration is noted in all four quadrants of the abdomen and pelvis. The prior defined left lower post-basilar hemithorax pulmonary parenchymal metabolic, morphologic abnormality is not apparent on the current examination. Additional persistently defined parenchymal densities noted in the right and left hemithorax demonstrate no evidence of quantitatively significant enhanced FDG uptake. A persistent right ureteral stent is defined. Mild increased glucose concentration is observed in the tenth thoracic vertebra contiguous to the vertebral body, anterior element, generating a calculated maximal standard uptake value of 1.7. Quantitative criteria for viable neoplasm are not fulfilled. Enhanced radiopharmaceutical distribution remains apparent in the left hip commensurate with activated leukocytes associated with an inflammatory component-arthritis. Otherwise, previously defined morphologic-anatomic changes noted on review of CT of the neck, chest, abdomen and pelvis on the FDG PET-CT report dated 06/14/18, are essentially unchanged on the current examination. PET/PET/CT Tumor Base -Thigh Init IMPRESSION: 1. NEGATIVE EXAMINATION. There is no definitive quantitative scintigraphic evidence of recurrent-metastatic/viable neoplasm. 2. Enhanced FDG uptake remaining apparent in the left mid posterior lung field, left lower lobe, does not fulfill quantitative criteria for viable neoplasm. (Mercado et al, Annals of Internal Medicine, 138:724, 2003). 3. Newly visualized enhanced FDG uptake noted in the right lower posteromedial lung field, right lower lobe, does not fulfill quantitative criteria for viable neoplasm. 4. Metabolic and/or anatomic stability may be ensured in the bilateral hemithorax pulmonary parenchymal abnormality with repeat FDG PET study and/or CT of the thorax in three-six months. (Xiu, Journal of Nuclear Medicine 45:88, P2004 Natasha, Seminars in Thoracic and Cardiovascular Surgery 14:292, 2002). 5. There is interim metabolic resolution of the left lower post-basilar hemithorax pulmonary parenchymal hypermetabolic abnormality. 6. Facilitated radiopharmaceutical concentration noted in the tenth thoracic vertebra does not fulfill quantitative criteria for viable neoplasm. 7. Overall, compared to the prior FDG PET study dated 06/14/18, there is current continued absence of defined viable neoplastic disease. Electronic Signature Bigg Yan D.O. Electronically Signed: Bigg Yan DO at 22:21 EDT Tel , Service support ,
== END ==
PROVIDERS: Family Provider Family Medicine; PCP Family Medicine; Referring Provider Internal Medicine Pulmonary Disease; Visit Provider Internal Medicine Pulmonary Disease
DX: R91.8 Other nonspecific abnormal finding of lung field (principal)
CPT/HCPCS: 78815; A9552

== ENCOUNTER → 2019-02-15 09:17 | Outpatient (CLI) | payer MEDICARE, OTHER, SELFPAY ==
[2019-02-15 10:49] LABS: Anion Gap 3 (5-15); BUN 15 mg/dL (7-18); BUN/Creat Ratio 14.6 RATIO (10-20); Calcium,Total 8.9 mg/dL (8.5-10.1); Chloride 101 mmol/L (98-107); Creatinine, Serum 1.03 mg/dL (0.70-1.30); EST Glomerular Filtration Rate 73 mL/min (>60); Est Glom Filt Rate - Afr Amer 89 mL/min (>60); Glucose 73 mg/dL (74-106); PSA,Total- Diagnostic 0.03 ng/mL (0.0-4.0); Potassium 4.3 mmol/L (3.5-5.1); Sodium Level 135 mmol/L (136-145)
== END ==
PROVIDERS: Family Provider Family Medicine; PCP Family Medicine; Referring Provider Urology; Visit Provider Urology
DX: C61 Malignant neoplasm of prostate (principal)
CPT/HCPCS: 36415; 80048; 84153

== ENCOUNTER 2019-03-28 10:29 | Inpatient (IN) | payer MEDICARE, OTHER, SELFPAY ==
[2019-03-28] VITALS (7 sets, daily range): BP systolic 115–138; BP diastolic 52–71; PULSE 90–103; RESP 16–19; TEMP 36.1–37.1; O2SAT 92–97; BMI 19.3; BMI 18.8; BMI 18.9
--- NOTE | 2019-03-28 10:56 | RAD_ITS ---
STUDY: X-RAY CHEST REASON FOR EXAM: Male, 83 years old. COUGH TECHNIQUE: Single AP portable view of the chest. COMPARISON: 05/18/2017 FINDINGS: There is hyperinflation of the lungs consistent with chronic obstructive lung disease (COPD). Alveolar opacity in the lower right lung consistent with right middle lobe pneumonia. There is no demonstrated pleural abnormality. Normal size heart. Normal mediastinum and bryan. Normal visualized pulmonary arteries. There is atherosclerotic tortuosity of the aortic arch and descending thoracic aorta. Normal visualized thoracic spine. Normal visualized ribs, clavicles, and shoulders. There is no demonstrated abnormality of the visualized soft tissue structures of the upper abdomen. RAD/Chest 1 View (Portable) IMPRESSION: Emphysema with right middle lobe pneumonia. Electronically Signed: Bigg Styles MD at 11:28 EST Tel , Service support ,
[2019-03-28 11:19] LABS: Absolute Lymphocyte Count 0.38 X10^3/uL (0.83-4.51); Absolute Neutrophil Count 5.9 X10^3/uL (2.0-7.7); Basophil# 0.01 X10^3/uL; Basophil% 0.1 % (0-1); Differential Indicated SCAN CRITERIA MET; Eosinophil# 0.01 X10^3/uL; Eosinophils% 0.1 % (0-5); Hematocrit 39.5 % (40-54); Hemoglobin 13.4 g/dL (13.0-16.5); Lymphocyte # 0.38 X10^3/ul (4.0); Lymphocyte % 5.5 % (19-41); Mean Corp Hgb Conc 33.9 g/dL (32-36); Mean Corpuscular Hgb 31.1 pg (27.0-32.0); Mean Corpuscular Volume 91.6 fL (80-94); Monocyte# 0.53 X10^3/uL; Monocyte% 7.6 % (0-10); NRBC Flagged by Analyzer 0 % (0-5); Neutrophil # 5.92 X10^3/uL (2.7-7.7); Neutrophil % 85.5 % (47-70); POSITIVE DIFFERENTIAL YES; Platelet Count 244 K/mm3 (150-450); RBC Distribution Width CV 12.1 % (11.6-14.6); Red Blood Count 4.31 M/mm3 (4.6-6.2); White Blood Count 6.9 K/mm3 (4.4-11.0)
[2019-03-28 11:34] LABS: Anion Gap 7 (5-15); BUN 11 mg/dL (7-18); BUN/Creat Ratio 13.2 RATIO (10-20); Calcium,Total 8.2 mg/dL (8.5-10.1); Chloride 92 mmol/L (98-107); Creatinine, Serum 0.83 mg/dL (0.70-1.30); EST Glomerular Filtration Rate 93 mL/min (>60); Est Glom Filt Rate - Afr Amer 113 mL/min (>60); Estimated Creatinine Clearance 58.41 ml/min; Glucose 89 mg/dL (74-106); Potassium 3.7 mmol/L (3.5-5.1); Sodium Level 126 mmol/L (136-145)
[2019-03-28 11:44] LABS: Lactic Acid 1.2 mmol/L (0.4-1.9)
[2019-03-28] MEDS: 0.9% Normal Saline 1,000 ML 1000 ML IV (12:38)
--- NOTE | 2019-03-28 13:05 | ED.VISSUMM ---
- ER Visit Summary Date of Service: 03/28/19 Chief Complaint: [Diarrhea, cough, and weakness] History of Present Illness: The patient is a 83 M [to the emergency department with 3-day history of watery stools. Patient had over 7 episodes of watery stool yesterday and 2 today. Patient denies any abdominal pain. Denies any fever. Patient also states that he is been coughing for over 2 weeks and bringing up thick sputum. Patient feels very fatigued and is having a hard time getting out of bed. He is currently not on any antibiotics and has not been on antibiotics recently. He denies recent travel. Patient does have history of prostate cancer.] Physical Examination: [HEENT-PERRLA, EOMI. Cranial nerves II through XII grossly intact. TMs clear. Mucous membranes moist. No adenopathy. Cardiovascular-regular rate and rhythm without murmur or ectopy Lungs-aeration bilaterally with some coarse breath sounds throughout. No significant tachypnea. No excessive muscle use or retractions. Abdomen-normoactive bowel sounds, soft, nontender, no rebound or rigidity, no peritoneal signs. Extremities-intact ?4, normal range of motion, normal pulses, atraumatic] Test Results: [CBC with differential obtained showing a 6.9, hemoglobin 13, hematocrit 39, platelets 244. Chemistries unremarkable other than a low sodium of 126. Lactate was normal 1.2. Chest x-ray showed a right middle lobe pneumonia. Stool for enteric pathogens and C. difficile ordered however patient has not produced a sample] Emergency Department Course and Treatment: [She was treated with normal saline in the department and was ordered Rocephin and Zithromax IV. Treatment Plan: [Admit] Disposition: [Admit] Impression: [Pneumonia Hyponatremia Diarrhea-etiology uncertain ] This note was generated with [employer] software. It may contain incorrect words, spelling, and punctuation that were not noted in review of the chart prior to signing ED Disposition - Plan for ED Patient: Referrals: Hakeem Frank III, MD [Primary Care Provider] -
--- NOTE | 2019-03-28 13:12 | HP.PCM_ITS ---
Problem List (1) Pneumonia Status: Acute Qualifiers: Pneumonia type: due to unspecified organism Laterality: right Lung location: middle lobe of lung Qualified Code(s): J18.9 - Pneumonia, unspecified organism (2) Gastroenteritis Status: Acute (3) Hyponatremia Status: Acute (4) Malnutrition Status: Chronic Qualifiers: Malnutrition type: protein-calorie malnutrition Protein-calorie malnutrition severity: severe Qualified Code(s): E43 - Unspecified severe protein-calorie malnutrition (5) Tobacco use Status: Chronic (6) Prostatic cancer Status: Chronic History of Present Illness Date of Admission: 03/28/19 Chief Complaint: Weakness, diarrhea, productive cough. The patient is a 83 y/o M w/ PMHx: Hx Prostate CA, Chronic back pain, Hx ? ureteral stent following w/ Dr. Hollingsworth who presents to the [facility] ED on 03/28/19 with history of diarrhea x 3 days, notes has been lessening, specifically had 7 episodes the day prior, and 2 on day of presentation thus far with concurrent notably worsening fatigue, malaise, productive cough with URI symptoms x 2 weeks without fever or chills. He denies any marked abdominal pain with the diarrhea. Work-up in the ED included T 98.5, heart rate 96, BP 127/65, respiratory rate 19, 94% on room air, CBC with WBC 6.9, hemoglobin 13.4, platelet 244 with left shift, BMP with sodium 126, chloride 92, lactic acid 1.2, chest x-ray with chronic emphysematous changes with evidence of right middle lobe pneumonia. In the ED patient ministered normal saline, azithromycin and Rocephin therapy. Past Medical History Past Medical History (Chronic Problems): Chronic Problems Prostatic cancer (Chronic) Malnutrition (Chronic) Tobacco use (Chronic) Allergies No Known Allergies Allergy (Verified 03/28/19 10:29) Home Medications: Ambulatory Orders Medication Instructions Recorded Cholecalciferol (Vitamin D3) 2,000 unit PO DAILY 03/28/19 [Vitamin D3] Surgical History: - - Appendectomy. Psychiatric History: No pertinent psych hx Lives: Spouse/ Significant Other Smoking Status: Current every day smoker - Patient with ongoing 1/2 pack/day cigarette tobacco usage. Tobacco Use: Cigarettes Alcohol: Occasional Drugs: None - *Family History Maternal History Items: Cancer Paternal History Items: Cancer Review of Systems Constitutional: Reports: Anorexia, Malaise, Weakness, Fatigue. Denies: Chills, Fever, Weight Change HEENT: Reports: Nasal Congestion, Sinus Congestion, Sinus Drainage, Sore Throat. Denies: Head Aches Cardiovascular: Denies: Chest Pain, Palpitations Respiratory: Reports: Cough, Shortness of Breath, Shortness of breath at rest, Shortness of breath upon exertion, Sputum production Gastrointestinal: Reports: Diarrhea, Nausea. Denies: Abdominal Pain, Vomiting Genitourinary: Denies: Dysuria Musculoskeletal: Reports: Joint Pain. Denies: Joint Tenderness Skin: Reports: Skin Changes. Denies: Rash, Wounds Neurological: Denies: Numbness, Tingling, Focal weakness Psychiatric: Denies: Anxiety, Depression, Homicidal Ideations, Suicidal Ideations Hematologic/ Lymphatic: Denies: Easy Bruising, Easy Bleeding VTE Information - Inpt Only VTE Present on Admission: No VTE Mechan Device Prophylaxis: SCD's VTE Pharm Prophylaxis ordered?: Yes Patient Problems: Active and Suspected Problems Pneumonia (Acute) Gastroenteritis (Acute) Hyponatremia (Acute) Subjective: Seated upright in ED bed, fatigued appearance, coughing during examination, no diarrhea since ED presentation. Objective: Physical Examination: General: awake, alert, oriented x 3 and cooperative, seated upright in the ED bed, fatigued appearance, intermittent harsh coughing during examination. Skin: normal color, turgor, no icterus, cyanosis except posterior coccyx irritation, redness without marked breakdown. HEENT: AT/NC, EOMI, PERRLA, dry MM, posterior OP erythema without exudate, no carotid bruits or JVD noted. Lungs: Diminished breath sounds, greater right mid and posterior base, moderate effort, harsh coughing during examination, no obvious wheezing or rales. Heart: Regular rate and rhythm; no gallop, rub audible. Abdomen: soft, cachectic habitus, NTTP, ND, mildly hyperactive BS, no HSM. Extremities: no cyanosis, clubbing, bilateral lower extremity ankle and pedal 1+ edema. Neurological: patient awake, alert, oriented x 3; cognitive function intact; pupils equally reactive to light and accomodation; cranial nerves II-XII grossly normal, moving all 4 extremities, no focal deficits, strength moderately to severely global decrease secondary to acute presentation. Psychiatric: affect appears fatigued, mildly flat, no acute evidence of depressive or anxiety feelings. - Physical Exam Vitals/I&O's: Vital Signs Temp Pulse Resp BP Pulse Ox 98.5 F 95 17 138/71 H 93 03/28/19 12:38 03/28/19 12:38 03/28/19 12:38 03/28/19 12:38 03/28/19 12:38 Oxygen Delivery Method Room Air Weight: 135 lb Body Mass Index (BMI) 19.3 Laboratory Results 03/28/19 11:10: WBC 6.9, RBC 4.31 L, Hgb 13.4, Hct 39.5 L, MCV 91.6, MCH 31.1, MCHC 33.9, RDW Std Deviation 41.0, RDW Coeff of Michael 12.1, Plt Count 244, MPV 9.0, Immature Gran % (Auto) 1.200 H, Neut % (Auto) 85.5 H, Lymph % (Auto) 5.5 L, [place] % (Auto) 7.6, Eos % (Auto) 0.1, Baso % (Auto) 0.1, Absolute Neuts (auto) 5.9, Absolute Lymphs (auto) 0.38 L, Nucleated RBC % 0, Differential Comment COMMENT 03/28/19 11:10: Sodium 126 L, Potassium 3.7, Chloride 92 L, Carbon Dioxide 27.0, Anion Gap 7, BUN 11, Creatinine 0.83, Estim Creat Clear Calc 58.41, Est GFR (MDRD) Af Amer 113, Est GFR (MDRD) Non-Af 93, BUN/Creatinine Ratio 13.2, Glucose 89, Calcium 8.2 L 03/28/19 11:10: Lactic Acid 1.2 Current Medications Azithromycin 500 mg/ Dextrose 255 mls @ 250 mls/hr IV X1 ONE Stop: 03/28/19 14:03 Ceftriaxone Sodium (Rocephin) 1 gm in 50 mls @ 100 mls/hr IV X1 ONE Stop: 03/28/19 13:31 Assessment/Plan All Active Problems Influenza (Acute) Acute bronchitis (Acute) Pneumonia (Acute) Gastroenteritis (Acute) Hyponatremia (Acute) The patient is a 83 y/o M w/ PMHx: Hx Prostate CA, Chronic back pain, Hx ? ureteral stent following w/ Dr. Hollingsworth who presents to the [facility] ED on 03/28/19 with history of diarrhea x 3 days, notes has been lessening, specifically had 7 episodes the day prior, and 2 on day of presentation thus far with concurrent notably worsening fatigue, malaise, productive cough with URI symptoms x 2 weeks without fever or chills. 1. Community Acquired Pneumonia: Will admit to [facility], maintain on oxygen with wean as tolerated to room air, continue ATC duonebs, PRN albuterol, maintained on IV Rocephin and Azithromycin, HOB, IS parameters w/ pending sputum cultures, respiratory viral panel and urine antigens. 2. Ongoing Diarrhea, Unclear if Viral Preceding Illness w/ Acute Gastroenteritis versus #1: Will continue hydration, will obtain c diff, stool cx with repeat AM CBC if recurrent loose stools. Anti-emetics, pain regimen PRN. 3. Hyponatremia, acute, hypovolemic: Admission sodium 126, given ongoing diarrhea and acute illness as noted #1 suspected hypovolemia, continue hydration, repeat BMP in AM. 4. Tobacco Abuse: Encouraged cessation, inpatient consultation per RT, NR if desired. 5. Severe protein calorie malnutrition: Evidenced per BMI, habitus, obvious muscle and fat loss, nutrition consulted. 6. Stage I decubitus ulcer: Encouraged patient to continue offloading, will have calmoseptine, continue close follow-up with PCP, wound RN consultation for family education. PCP had recommended barrier cream usage but family had not performed this as felt that it likely would make a difference. Education given to family. 7. History of prostate cancer: Remission, stable. 8. History ureteral stent: Patient following with urology, notes intermittently change of ureteral stent, continue follow-up. Noted to patient that likely he would need to have these acute issues resolved prior to urology intervention. 9. DVT Prophylaxis: SCDs, lovenox. 10. CODE status: Patient family present. Discussed CODE status at length including difference between FULL code, DNR-CCA and DNR-CC status. Following discussions about the differences in these status, requested FULL CODE status. Advanced Care Planning Face to Face Time: 16 minutes. Code Visit Inpatient E&M: 30069 Init Hosp L3 Procedures: 57511 Advncd Care Plan 30 Min
[2019-03-28] MEDS: Ceftriaxone 1 GM/50 ML BAG IV (13:59)
--- NOTE | 2019-03-28 15:04 | CPS ---
0435...ATTEMPTED TO START AEROSOL RX....MEDICATION UNAVAILABLE...RX NOT STARTED AT THIS TIME
[2019-03-28] MEDS: 0.9% Normal Saline 1,000 ML 100 ML IV (16:01)
[2019-03-28] MEDS: Menthol/Lanolin/Calamine/Znox 113 GM Tube 1 APPLIC TOPICAL ×2 (18:33→22:20)
[2019-03-28] MEDS: Ipratropium/Albuterol Sulfate 3 ML AMPUL.NEB INHALATION (19:46)
[2019-03-29] VITALS (8 sets, daily range): BP systolic 105–121; BP diastolic 40–64; PULSE 78–92; RESP 12–18; TEMP 36.7–37.2; O2SAT 91–100
[2019-03-29] MEDS: 0.9% Normal Saline 1,000 ML 100 ML IV ×3 (02:08→23:00)
[2019-03-29] MEDS: Ipratropium/Albuterol Sulfate 3 ML AMPUL.NEB INHALATION ×3 (07:19→18:59)
[2019-03-29 08:04] LABS: Absolute Lymphocyte Count 0.41 X10^3/uL (0.83-4.51); Absolute Neutrophil Count 3.7 X10^3/uL (2.0-7.7); Basophil# 0.01 X10^3/uL; Basophil% 0.2 % (0-1); Eosinophil# 0.03 X10^3/uL; Eosinophils% 0.6 % (0-5); Hematocrit 33.7 % (40-54); Hemoglobin 11.5 g/dL (13.0-16.5); Lymphocyte # 0.41 X10^3/ul (4.0); Lymphocyte % 8.7 % (19-41); Mean Corp Hgb Conc 34.1 g/dL (32-36); Mean Corpuscular Hgb 31.3 pg (27.0-32.0); Mean Corpuscular Volume 91.8 fL (80-94); Mean Platelet Vol. 8.9 fl (6.2-12.0); Monocyte# 0.52 X10^3/uL; Monocyte% 11.1 % (0-10); NRBC Flagged by Analyzer 0 % (0-5); Neutrophil # 3.66 X10^3/uL (2.7-7.7); Neutrophil % 77.9 % (47-70); POSITIVE DIFFERENTIAL YES; Platelet Count 196 K/mm3 (150-450); RBC Distribution Width CV 11.9 % (11.6-14.6); RBC Distribution Width SD 40.6 fl (35.1-43.9); Red Blood Count 3.67 M/mm3 (4.6-6.2); White Blood Count 4.7 K/mm3 (4.4-11.0)
[2019-03-29 08:07] LABS: Differential Indicated SCAN CRITERIA MET
[2019-03-29 08:48] LABS: ALB/GLOB Ratio 0.6 RATIO (0.9-2.4); AST(SGOT) 16 U/L (15-37); Alanine Aminotransfer ALT/SGPT 16 U/L (16-61); Albumin, Serum 2.1 g/dL (3.2-5.0); Alkaline Phosphatase 88 U/L (45-117); Anion Gap 6 (5-15); BUN 10 mg/dL (7-18); BUN/Creat Ratio 14.2 RATIO (10-20); Calcium,Total 7.8 mg/dL (8.5-10.1); Chloride 100 mmol/L (98-107); EST Glomerular Filtration Rate 114 mL/min (>60); Est Glom Filt Rate - Afr Amer 138 mL/min (>60); Estimated Creatinine Clearance 47.33 ml/min; Globulin 3.3 g/dL (2.2-4.2); Glucose 98 mg/dL (74-106); Potassium 3.7 mmol/L (3.5-5.1); Protein, Total 5.4 g/dL (6.4-8.2); Sodium Level 131 mmol/L (136-145)
[2019-03-29] MEDS: Enoxaparin 40 MG/0.4 ML Syringe SC (10:08)
--- NOTE | 2019-03-29 10:47 | PCM.PN.HOSP ---
Patient Problems: Active and Suspected Problems Pneumonia (Acute) Gastroenteritis (Acute) Hyponatremia (Acute) Reason for Visit: Follow-up pneumonia Subjective: Patient is an 83-year-old gentleman admitted with progressive generalized weakness with associated productive cough. Chest x-ray obtained in the emergency department was consistent Emphysema with right middle lobe pneumonia. Patient was also found to be hyponatremic on admission Objective: GENERAL: cooperative HEENT: Atraumatic; EYES; Anicteric, Normal Conjunctiva NECK; supple, normal thyroid, RESPIRATORY: Diminished to auscultation some wheezing CARDIOVASCULAR: Regular S1 S2, GI: soft, normoactive bowel sounds, : No Renal angle tenderness; EXTREMITIES: No edema, no clubbing, MUSCULOSKELETAL: no muscle waisting NEURO: Awake; no lateralizing signs. SKIN: No Rash PSYCH; Flat affect Vitals/I&O's: Vital Signs Temp Pulse Resp BP Pulse Ox 98.1 F 86 16 120/64 94 03/29/19 08:08 03/29/19 08:08 03/29/19 08:08 03/29/19 08:08 03/29/19 08:08 Oxygen Delivery Method Room Air Weight: 59.783 kg Body Mass Index (BMI) 18.8 Intake and Output for Last 24 Hours 03/27/19 03/28/19 03/29/19 23:59 23:59 23:59 Intake Total 1545 / 1545 1350 / 1350 Output Total 400 / 400 Balance 1545 / 1545 950 / 950 Microbiology Past 72 Hours 03/28/19 16:05 Sputum, Expectorated/Coughed Respiratory Culture - Preliminary Appears to be normal respiratory franky. Further studies to follow. 03/28/19 21:20 Mucosa - Nasopharyngeal Respiratory Panel (PCR) - Final 03/28/19 18:49 Urine, Clean Catch Streptococcus pneumoniae Antigen (M - Final 03/28/19 18:49 Urine, Clean Catch Legionella Antigen - Final Laboratory Results 03/28/19 11:10: WBC 6.9, RBC 4.31 L, Hgb 13.4, Hct 39.5 L, MCV 91.6, MCH 31.1, MCHC 33.9, RDW Std Deviation 41.0, RDW Coeff of Michael 12.1, Plt Count 244, MPV 9.0, Immature Gran % (Auto) 1.200 H, Neut % (Auto) 85.5 H, Lymph % (Auto) 5.5 L, [place] % (Auto) 7.6, Eos % (Auto) 0.1, Baso % (Auto) 0.1, Absolute Neuts (auto) 5.9, Absolute Lymphs (auto) 0.38 L, Nucleated RBC % 0, Differential Comment COMMENT 03/28/19 11:10: Sodium 126 L, Potassium 3.7, Chloride 92 L, Carbon Dioxide 27.0, Anion Gap 7, BUN 11, Creatinine 0.83, Estim Creat Clear Calc 58.41, Est GFR (MDRD) Af Amer 113, Est GFR (MDRD) Non-Af 93, BUN/Creatinine Ratio 13.2, Glucose 89, Calcium 8.2 L 03/28/19 11:10: Lactic Acid 1.2 03/29/19 07:16: WBC 4.7, RBC 3.67 L, Hgb 11.5 L, Hct 33.7 L, MCV 91.8, MCH 31.3, MCHC 34.1, RDW Std Deviation 40.6, RDW Coeff of Michael 11.9, Plt Count 196, MPV 8.9, Immature Gran % (Auto) 1.500 H, Neut % (Auto) 77.9 H, Lymph % (Auto) 8.7 L, [place] % (Auto) 11.1 H, Eos % (Auto) 0.6, Baso % (Auto) 0.2, Absolute Neuts (auto) 3.7, Absolute Lymphs (auto) 0.41 L, Nucleated RBC % 0 03/29/19 07:16: Sodium 131 L, Potassium 3.7, Chloride 100, Carbon Dioxide 25.0, Anion Gap 6, BUN 10, Creatinine 0.70, Estim Creat Clear Calc 47.33, Est GFR (MDRD) Af Amer 138, Est GFR (MDRD) Non-Af 114, BUN/Creatinine Ratio 14.2, Glucose 98, Calcium 7.8 L, Total Bilirubin 0.60, AST 16, ALT 16, Alkaline Phosphatase 88, Total Protein 5.4 L, Albumin 2.1 L, Globulin 3.3, Albumin/Globulin Ratio 0.6 L Current Medications Acetaminophen (Tylenol) 650 mg PO Q6H PRN PRN PRN Reason: Non-cardiac pain (-01/06) Al Hydroxide/Mg Hydroxide (Mylanta Ii) 15 - 30 ml PO Q4H PRN PRN PRN Reason: INDIGESTION Albuterol Sulfate (Ventolin Aerosols) 2.5 mg INHALATION Q2H PRN PRN PRN Reason: dyspnea, wheezing Albuterol/Ipratropium (Duoneb) 3 ml INHALATION Q6HWA.RT [facility] Last Admin: 03/29/19 07:19 Dose: 3 ml Documented by: Calamine/Phenol (Calmoseptine Ointment) 1 applic TOPICAL 4X/DAY [facility]; Protocol Last Admin: 03/29/19 10:08 Dose: Not Given Documented by: Dextrose (D50w Syringe) 0 gm IV X1 PRN; Protocol PRN Reason: Hypoglycemia Enoxaparin Sodium (Lovenox) 40 mg SC DAILY [facility] Last Admin: 03/29/19 10:08 Dose: 40 mg Documented by: Glucagon () 1 mg IM .X1 PRN PRN Reason: Hypoglycemia Guaifenesin (Robitussin) 20 ml PO Q4H PRN PRN PRN Reason: COUGH Hydralazine HCl (Apresoline Iv) 10 mg IV Q4H PRN PRN PRN Reason: SBP > 160 Sodium Chloride () 1,000 mls @ 100 mls/hr IV .Q10H [facility] Last Admin: 03/29/19 02:08 Dose: 100 mls/hr Documented by: Azithromycin 500 mg/ Dextrose 255 mls @ 250 mls/hr IV Q24 [facility] Stop: 04/03/19 10:01 Ceftriaxone Sodium 2 gm/ (Sodium Chloride) 50 mls @ 100 mls/hr IV Q24 [facility] Stop: 04/05/19 10:01 Last Infusion: 03/29/19 10:43 Dose: Infused Documented by: Melatonin (Melatonin) 3 mg PO QHS PRN PRN PRN Reason: INSOMNIA Nutritional Formula (Lactose Free) (Ensure Enlive) 120 ml PO 4X/DAY [facility] Last Admin: 03/29/19 10:00 Dose: Not Given Documented by: Ondansetron HCl (Zofran) 4 mg IV Q8H PRN PRN PRN Reason: NAUSEA/VOMITING Sodium Chloride () 10 - 40 ml IV UD PRN PRN Reason: SALINE FLUSH Throat Lozenges (Cepacol Sore Throat Lozenge) 1 lozenge MUCOUS MEM Q2H PRN PRN PRN Reason: Sore throat or cough STROKE Vital Signs/Narrative: Vital Signs Temp Pulse Resp BP Pulse Ox 03/29/19 08:08 98.1 F 86 16 120/64 94 03/29/19 07:56 94 03/29/19 07:19 79 12 91 Medical Necessity - Tobacco Use Smoking Status: Current every day smoker Tobacco Use: Cigarettes Assessment/Plan All Active Problems Influenza (Acute) Acute bronchitis (Acute) Pneumonia (Acute) Gastroenteritis (Acute) Hyponatremia (Acute) Patient is an 83-year-old gentleman admitted with progressive generalized weakness with associated productive cough. Chest x-ray obtained in the emergency department was consistent Emphysema with right middle lobe pneumonia. Patient was also found to be hyponatremic on admission 1. Pneumonia ~ Suspected to be secondary to streptococci pneumonia, Blood and sputum cultures sent. Patient placed on Rocephin and Zithromax and placed on oxygen titrated to keep also is greater than 90 2. Hyponatremia ~ Secondary to hypovolemic hyponatremia from fluid losses from patient's diarrhea sodium level 126 started on saline patient still remains hyponatremic ordered serial BMP for close monitoring 3. Diarrhea ~Suspected to be secondary to viral gastroenteritis did resolve the day prior to patient being admitted 4. Severe protein calorie malnutrition ~As evidenced by decreased energy level low BMI and muscle wasting. Did request for dietary consultation 5. History of prostate CA Currently in remission 6. Tobacco dependence ~counseled on cessation, offered nicotine patch for tobacco cravings patient has over a 70-year history of smoking. requested for CT order placed. 7. Emphysema From patient prolonged years of smoking. Placed on aerosol treatment as needed 8. DVT Prophylaxis: SCDs, lovenox. Clinical Impression(s) from Imaging Studies Chest X-Ray 03/28/19 10:56 IMPRESSION: Emphysema with right middle lobe pneumonia. Electronically Signed: Bigg Styles MD at 11:28 EST Tel , Service support , Code Visit Inpatient E&M: 49021 Subs Hosp L3
--- NOTE | 2019-03-29 11:01 | CT_ITS ---
STUDY: CT CHEST WITHOUT CONTRAST REASON FOR EXAM: Male, 83 years old. Persistent cough, pneumonia, general weakness, ? bronchiectasis. Hx emphysema, smoking, prostate cancer. RADIATION DOSAGE (If Supplied By Facility): CTDIvol = ( 9.34 ) mGy, DLP = ( 354.31 ) mGycm TECHNIQUE: Transaxial imaging was performed without the administration of intravenous contrast material. Individualized dose optimization techniques were used for this CT. COMPARISON: 10/14/2018, 05/10/2018. FINDINGS: Normal thyroid gland. Heart size is normal. No pericardial effusion. Aorta is normal in caliber. Borderline pretracheal lymph node. Small bilateral pleural effusions. Patchy airspace disease in the lower lobes bilaterally. Upper lobes are clear. 4 mm nonobstructing left renal stone. Low-attenuation lesions in the upper pole of the left kidney are not characterized without contrast. Right ureteral stent is present. Punctate splenic calcifications consistent with old granulomatous disease. No change in abdominal findings compared to the prior study. CT/Chest without Contrast IMPRESSION: 1. Bibasilar pneumonia. 2. Small bilateral pleural effusions. 3. Nonobstructing left renal stone. No change from prior. 4. Old healed granulomatous disease. Electronically Signed: Anne Sanchez MD at 18:45 EST Tel , Service support ,
--- NOTE | 2019-03-29 14:20 | CASEMGMT ---
Assessment- SW spoke with patient and his . Introduced self and role at [facility]. Patient was a bit irritated SW was coming in, but he was willing to answer questions. Living situation- Patient lives with his in a 2 story home with 3 entry steps. They are set up on the first floor so do not need to use second floor. PCP: Dr Hakeem Frank Specialists: None Pharmacy: [facility] DME: [facility] ADL's/IADL's: Patient is independent in all activities. He drives. He is only on 1 medication. Past SNF/rehab: None Past HH: None LW: No and not interested POA: No and not interested Plan: Patient nor his feel they will need anything at d/c. They are aware SW and RN CM available should this change. Roxanna KEITH [employer]
[2019-03-30] VITALS (9 sets, daily range): BP systolic 103–133; BP diastolic 53–72; PULSE 80–99; RESP 16–20; TEMP 36.9–37.3; O2SAT 90–97
[2019-03-30 05:31] LABS: Absolute Lymphocyte Count 0.52 X10^3/uL (0.83-4.51); Absolute Neutrophil Count 2.8 X10^3/uL (2.0-7.7); Basophil# 0.02 X10^3/uL; Basophil% 0.5 % (0-1); Eosinophil# 0.07 X10^3/uL; Eosinophils% 1.8 % (0-5); Hematocrit 34.3 % (40-54); Hemoglobin 11.5 g/dL (13.0-16.5); Lymphocyte # 0.52 X10^3/ul (4.0); Lymphocyte % 13.3 % (19-41); Mean Corp Hgb Conc 33.5 g/dL (32-36); Mean Corpuscular Volume 92.5 fL (80-94); Mean Platelet Vol. 8.5 fl (6.2-12.0); Monocyte# 0.47 X10^3/uL; Monocyte% 12.1 % (0-10); NRBC Flagged by Analyzer 0 % (0-5); Neutrophil # 2.77 X10^3/uL (2.7-7.7); POSITIVE DIFFERENTIAL YES; Platelet Count 204 K/mm3 (150-450); RBC Distribution Width CV 12.2 % (11.6-14.6); RBC Distribution Width SD 41.7 fl (35.1-43.9); Red Blood Count 3.71 M/mm3 (4.6-6.2); White Blood Count 3.9 K/mm3 (4.4-11.0)
[2019-03-30 05:42] LABS: Anion Gap 3 (5-15); BUN 10 mg/dL (7-18); BUN/Creat Ratio 13.4 RATIO (10-20); Calcium,Total 7.6 mg/dL (8.5-10.1); Chloride 102 mmol/L (98-107); Creatinine, Serum 0.74 mg/dL (0.70-1.30); EST Glomerular Filtration Rate 107 mL/min (>60); Est Glom Filt Rate - Afr Amer 129 mL/min (>60); Estimated Creatinine Clearance 47.33 ml/min; Glucose 104 mg/dL (74-106); Magnesium 1.8 mg/dL (1.6-2.6); Potassium 4.1 mmol/L (3.5-5.1); Sodium Level 134 mmol/L (136-145)
[2019-03-30 05:53] LABS: Differential Indicated SCAN CRITERIA MET
[2019-03-30] MEDS: Ipratropium/Albuterol Sulfate 3 ML AMPUL.NEB INHALATION ×3 (06:48→19:30)
[2019-03-30 07:23] LABS: Differential Comment SCANNED
[2019-03-30] MEDS: 0.9% Normal Saline 1,000 ML 100 ML IV (07:51)
--- NOTE | 2019-03-30 08:57 | PN_ITS ---
Patient Problems: Active and Suspected Problems Pneumonia (Acute) Gastroenteritis (Acute) Hyponatremia (Acute) Reason for Visit: Follow-up pneumonia Subjective: Patient seen still has a productive cough and complains of feeling fatigued Objective: GENERAL: cooperative HEENT: Atraumatic; EYES; Anicteric, Normal Conjunctiva NECK; supple, normal thyroid, RESPIRATORY: Diminished to auscultation some wheezing CARDIOVASCULAR: Regular S1 S2, GI: soft, normoactive bowel sounds, : No Renal angle tenderness; EXTREMITIES: No edema, no clubbing, MUSCULOSKELETAL: no muscle waisting NEURO: Awake; no lateralizing signs. SKIN: No Rash PSYCH; Flat affect Vitals/I&O's: Vital Signs Temp Pulse Resp BP Pulse Ox 98.4 F 91 16 133/66 H 92 03/30/19 07:45 03/30/19 07:45 03/30/19 07:45 03/30/19 07:45 03/30/19 07:45 Oxygen Delivery Method Room Air Weight: 59.783 kg Body Mass Index (BMI) 18.8 Intake and Output for Last 24 Hours 03/28/19 03/29/19 03/30/19 23:59 23:59 23:59 Intake Total 1545 / 1545 4293.34 / 4293.34 888.33 / 888.33 Output Total 850 / 850 725 / 725 Balance 1545 / 1545 3443.34 / 3443.34 163.33 / 163.33 Microbiology Past 72 Hours 03/28/19 13:55 Blood Culture (Wb) - Anticubital Right Blood Culture - Preliminary No growth in 48 hours. 03/28/19 13:50 Blood Culture (Wb) - Anticubital Left Blood Culture - Preliminary No growth in 48 hours. 03/28/19 16:05 Sputum, Expectorated/Coughed Gram Stain - Final 03/28/19 16:05 Sputum, Expectorated/Coughed Respiratory Culture - Preliminary Appears to be normal respiratory franky. Further studies to follow. 03/28/19 21:20 Mucosa - Nasopharyngeal Respiratory Panel (PCR) - Final 03/28/19 18:49 Urine, Clean Catch Streptococcus pneumoniae Antigen (M - Final 03/28/19 18:49 Urine, Clean Catch Legionella Antigen - Final Laboratory Results 03/30/19 05:15: WBC 3.9 L, RBC 3.71 L, Hgb 11.5 L, Hct 34.3 L, MCV 92.5, MCH 31.0, MCHC 33.5, RDW Std Deviation 41.7, RDW Coeff of Michael 12.2, Plt Count 204, MPV 8.5, Immature Gran % (Auto) 1.300 H, Neut % (Auto) 71.0 H, Lymph % (Auto) 13.3 L, Millard % (Auto) 12.1 H, Eos % (Auto) 1.8, Baso % (Auto) 0.5, Absolute Neuts (auto) 2.8, Absolute Lymphs (auto) 0.52 L, Nucleated RBC % 0, Differential Comment SCANNED, Diff Path Review July03/30/19 05:15: Sodium 134 L, Potassium 4.1, Chloride 102, Carbon Dioxide 29.0, Anion Gap 3 L, BUN 10, Creatinine 0.74, Estim Creat Clear Calc 47.33, Est GFR (MDRD) Af Amer 129, Est GFR (MDRD) Non-Af 107, BUN/Creatinine Ratio 13.4, Glucose 104, Calcium 7.6 L, Magnesium 1.8 Current Medications Acetaminophen (Tylenol) 650 mg PO Q6H PRN PRN PRN Reason: Non-cardiac pain (-01/06) Al Hydroxide/Mg Hydroxide (Mylanta Ii) 15 - 30 ml PO Q4H PRN PRN PRN Reason: INDIGESTION Albuterol Sulfate (Ventolin Aerosols) 2.5 mg INHALATION Q2H PRN PRN PRN Reason: dyspnea, wheezing Albuterol/Ipratropium (Duoneb) 3 ml INHALATION Q6HWA.RT [facility] Last Admin: 03/30/19 06:48 Dose: 3 ml Documented by: Calamine/Phenol (Calmoseptine Ointment) 1 applic TOPICAL 4X/DAY [facility]; Protocol Last Admin: 03/29/19 23:02 Dose: Not Given Documented by: Dextrose (D50w Syringe) 0 gm IV X1 PRN; Protocol PRN Reason: Hypoglycemia Enoxaparin Sodium (Lovenox) 40 mg SC DAILY [facility] Last Admin: 03/29/19 10:08 Dose: 40 mg Documented by: Glucagon () 1 mg IM .X1 PRN PRN Reason: Hypoglycemia Guaifenesin (Robitussin) 20 ml PO Q4H PRN PRN PRN Reason: COUGH Hydralazine HCl (Apresoline Iv) 10 mg IV Q4H PRN PRN PRN Reason: SBP > 160 Sodium Chloride () 1,000 mls @ 100 mls/hr IV .Q10H [facility] Last Admin: 03/30/19 07:51 Dose: 100 mls/hr Documented by: Azithromycin 500 mg/ Dextrose 255 mls @ 250 mls/hr IV Q24 [facility] Stop: 04/03/19 10:01 Last Infusion: 03/29/19 12:48 Dose: Infused Documented by: Ceftriaxone Sodium 2 gm/ (Sodium Chloride) 50 mls @ 100 mls/hr IV Q24 [facility] Stop: 04/05/19 10:01 Last Infusion: 03/29/19 10:43 Dose: Infused Documented by: Melatonin (Melatonin) 3 mg PO QHS PRN PRN PRN Reason: INSOMNIA Nutritional Formula (Lactose Free) (Ensure Enlive) 120 ml PO 4X/DAY [facility] Last Admin: 03/29/19 23:00 Dose: 120 ml Documented by: Ondansetron HCl (Zofran) 4 mg IV Q8H PRN PRN PRN Reason: NAUSEA/VOMITING Sodium Chloride () 10 - 40 ml IV UD PRN PRN Reason: SALINE FLUSH Throat Lozenges (Cepacol Sore Throat Lozenge) 1 lozenge MUCOUS MEM Q2H PRN PRN PRN Reason: Sore throat or cough STROKE Vital Signs/Narrative: Vital Signs Temp Pulse Resp BP Pulse Ox 03/30/19 07:45 98.4 F 91 16 133/66 H 92 Medical Necessity - Tobacco Use Smoking Status: Current every day smoker Tobacco Use: Cigarettes Assessment/Plan All Active Problems Influenza (Acute) Acute bronchitis (Acute) Pneumonia (Acute) Gastroenteritis (Acute) Hyponatremia (Acute) Patient is an 83-year-old gentleman admitted with progressive generalized w eakness with associated productive cough. Chest x-ray obtained in the emergency department was consistent Emphysema with right middle lobe pneumonia. Patient was also found to be hyponatremic on admission 1. Pneumonia ~ Suspected to be secondary to streptococci pneumonia, Blood and sputum cultures sent. Patient placed on Rocephin and Zithromax and placed on oxygen titrated to keep also is greater than 90 120;Patient seen still has a productive cough and complains of feeling fatigued 2. Hyponatremia ~ Secondary to hypovolemic hyponatremia from fluid losses from patient's diarrhea sodium level 126 started on saline patient still remains hyponatremic ordered serial BMP for close monitoring ?03/30/2019; sodium levels up to 134 3. Diarrhea ~Suspected to be secondary to viral gastroenteritis did resolve the day prior to patient being admitted 4. Severe protein calorie malnutrition ~As evidenced by decreased energy level low BMI and muscle wasting. Did request for dietary consultation 5. History of prostate CA Currently in remission 6. Tobacco dependence ~counseled on cessation, offered nicotine patch for tobacco cravings patient has over a 70-year history of smoking. requested for CT order placed. 7. Emphysema From patient prolonged years of smoking. Placed on aerosol treatment as needed 8. DVT Prophylaxis: SCDs, lovenox. 9. Physical deconditioning ?Requested for PT OT eval Clinical Impression(s) from Imaging Studies Chest CT 03/29/19 11:01 IMPRESSION: 1. Bibasilar pneumonia. 2. Small bilateral pleural effusions. 3. Nonobstructing left renal stone. No change from prior. 4. Old healed granulomatous disease. Electronically Signed: Anne Sanchez MD at 18:45 EST Tel , Service support , Code Visit Inpatient E&M: 02905 Subs Hosp L2
[2019-03-30] MEDS: Enoxaparin 40 MG/0.4 ML Syringe SC (10:14)
[2019-03-30] MEDS: 0.9% Saline Lock 10 ML Syringe IV (20:33)
[2019-03-31 00:30] VITALS: BP 136/70; PULSE 83; RESP 18; TEMP 37.2; O2SAT 94
[2019-03-31 04:30] VITALS: BP 126/66; PULSE 89; RESP 18; TEMP 36.7; O2SAT 92
[2019-03-31 06:20] LABS: Absolute Lymphocyte Count 0.59 X10^3/uL (0.83-4.51); Absolute Neutrophil Count 3.3 X10^3/uL (2.0-7.7); Basophil# 0.02 X10^3/uL; Basophil% 0.4 % (0-1); Eosinophil# 0.12 X10^3/uL; Eosinophils% 2.6 % (0-5); Hematocrit 34.2 % (40-54); Hemoglobin 11.5 g/dL (13.0-16.5); Lymphocyte # 0.59 X10^3/ul (4.0); Lymphocyte % 12.9 % (19-41); Mean Corp Hgb Conc 33.6 g/dL (32-36); Mean Corpuscular Hgb 30.6 pg (27.0-32.0); Mean Platelet Vol. 8.3 fl (6.2-12.0); Monocyte# 0.49 X10^3/uL; Monocyte% 10.7 % (0-10); NRBC Flagged by Analyzer 0 % (0-5); Neutrophil # 3.27 X10^3/uL (2.7-7.7); Neutrophil % 71.6 % (47-70); POSITIVE DIFFERENTIAL YES; Platelet Count 210 K/mm3 (150-450); RBC Distribution Width CV 12.2 % (11.6-14.6); RBC Distribution Width SD 40.8 fl (35.1-43.9); Red Blood Count 3.76 M/mm3 (4.6-6.2); White Blood Count 4.6 K/mm3 (4.4-11.0)
[2019-03-31 06:22] LABS: Differential Indicated SCAN CRITERIA MET
[2019-03-31 06:44] LABS: Anion Gap 5 (5-15); BUN 13 mg/dL (7-18); BUN/Creat Ratio 17.2 RATIO (10-20); Calcium,Total 7.8 mg/dL (8.5-10.1); Chloride 98 mmol/L (98-107); Creatinine, Serum 0.76 mg/dL (0.70-1.30); EST Glomerular Filtration Rate 105 mL/min (>60); Est Glom Filt Rate - Afr Amer 127 mL/min (>60); Estimated Creatinine Clearance 47.33 ml/min; Glucose 94 mg/dL (74-106); Potassium 4.2 mmol/L (3.5-5.1); Sodium Level 132 mmol/L (136-145)
[2019-03-31 07:04] VITALS: PULSE 89; RESP 20; O2SAT 94
[2019-03-31] MEDS: Ipratropium/Albuterol Sulfate 3 ML AMPUL.NEB INHALATION ×2 (07:04→12:45)
[2019-03-31 09:14] VITALS: BP 122/63; PULSE 90; RESP 18; TEMP 37.1; O2SAT 95
[2019-03-31] MEDS: Enoxaparin 40 MG/0.4 ML Syringe SC (09:18)
--- NOTE | 2019-03-31 10:19 | CASEMGMT ---
NIMCO ROSENBERG NOTE: Reviewed PT/OT eval and notes. Additional therapy recommended/HHC recommended. To room to talk with pt. Introduced self and role of NIMCO ROSENBERG. Discussed discharge planning with pt and therapies recommendations. Discussed [facility]'s guidelines for homebound for HHC. Pt states he is not homebound, stating, I can get around pretty well. Pt states he has went to OP therapy in the past @ [facility] and is interested in OP therapy again. Script for OP therapy obtained from Dr Oviedo and given to pt. He was made aware he can take the script to any OP therapy location of his choice. Pt voices understanding. Pt states has no other discharge needs. Amira ENGEL RN, CM.
--- NOTE | 2019-03-31 10:23 | PCM.DC ---
- Discharge Diagnoses Current Active Problems: Current Active and Chronic Problems Pneumonia (Acute) Gastroenteritis (Acute) Hyponatremia (Acute) Malnutrition (Chronic) Tobacco use (Chronic) You will use the following diet at home:: No restrictions Allergies/Adverse Reactions: Allergies No Known Allergies Allergy (Verified 03/28/19 10:29) Medications to take at Discharge Cholecalciferol (Vitamin D3) [Vitamin D3] 2,000 unit PO DAILY 03/28/19 Cefdinir 300 mg PO BID #14 cap 03/31/19 Guaifenesin [Mucinex] 1,200 mg PO BID #14 tab 03/31/19 Prednisone 20 mg PO BID #10 tab 03/31/19 The following prescriptions were given: Cefdinir 300 mg PO BID #14 cap Transmission Status: Pending to [facility] Guaifenesin [Mucinex] 1,200 mg PO BID #14 tab Transmission Status: Pending to [facility] Prednisone 20 mg PO BID #10 tab Transmission Status: Pending to [facility] Primary Care Physician: Hakeem Frank III, MD [Primary Care Provider] - Please follow up with your Primary Care Physician in: in 5-7 days Test Results: Test results from this visit will be discussed in further detail at your follow-up appointment, if applicable. Proposed Discharge Date: 03/31/19
--- NOTE | 2019-03-31 10:25 | PCM.DC.SUM ---
Discharge Date and Diagnosis - Problem List Patient Problems: Active and Suspected Problems Pneumonia (Acute) Gastroenteritis (Acute) Hyponatremia (Acute) Date of Admission: 03/28/19 Date of Discharge: 03/31/19 - Primary Discharge Diagnosis Active and Suspected Problems Pneumonia (Acute) Gastroenteritis (Acute) Hyponatremia (Acute) - Secondary Discharge Diagnosis Chronic Problems Prostatic cancer (Chronic) Malnutrition (Chronic) Tobacco use (Chronic) Hospital Course and Treatment Imaging Results: Clinical Impression(s) from Imaging Studies Chest X-Ray 03/28/19 10:56 IMPRESSION: Emphysema with right middle lobe pneumonia. Electronically Signed: Bigg Styles MD at 11:28 EST Tel , Service support , Chest CT 03/29/19 11:01 IMPRESSION: 1. Bibasilar pneumonia. 2. Small bilateral pleural effusions. 3. Nonobstructing left renal stone. No change from prior. 4. Old healed granulomatous disease. 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 Chest x-ray obtained in the emergency department was consistent Emphysema with right middle lobe pneumonia. Patient was also found to be hyponatremic on admission 1. Pneumonia ~ Suspected to be secondary to streptococci pneumonia, Blood and sputum cultures sent. Patient placed on Rocephin and Zithromax and placed on oxygen titrated to keep also is greater than 90. Patient was discharged home on cefdinir 300 mg p.o. twice daily for 7 additional days. 2. Hyponatremia ~ Secondary to hypovolemic hyponatremia from fluid losses from patient's diarrhea sodium level 126 started on saline patient still remains hyponatremic ordered serial BMP for close monitoring ?03/30/2019; sodium levels up to 134 3. Diarrhea ~Suspected to be secondary to viral gastroenteritis did resolve the day prior to patient being admitted 4. Severe protein calorie malnutrition ~As evidenced by decreased energy level low BMI and muscle wasting. Did request for dietary consultation 5. History of prostate CA Currently in remission 6. Tobacco dependence ~counseled on cessation, offered nicotine patch for tobacco cravings patient has over a 70-year history of smoking. requested for CT order placed. CT results are as above. 7. Emphysema From patient prolonged years of smoking. Placed on aerosol treatment as needed 8. DVT Prophylaxis: SCDs, lovenox. 9. Physical deconditioning ?Requested for PT OT eval; patient was discharged home with outpatient PT. Patient Problems: Active and Suspected Problems Pneumonia (Acute) Gastroenteritis (Acute) Hyponatremia (Acute) Objective: GENERAL: cooperative HEENT: Atraumatic; EYES; Anicteric, Normal Conjunctiva NECK; supple, normal thyroid, RESPIRATORY: Diminished to auscultation some wheezing CARDIOVASCULAR: Regular S1 S2, GI: soft, normoactive bowel sounds, : No Renal angle tenderness; EXTREMITIES: No edema, no clubbing, MUSCULOSKELETAL: no muscle waisting NEURO: Awake; no lateralizing signs. SKIN: No Rash PSYCH; Flat affect - Physical Exam Vitals/I&O's: Vital Signs Temp Pulse Resp BP Pulse Ox 98.8 F 90 18 122/63 H 95 03/31/19 09:14 03/31/19 09:14 03/31/19 09:14 03/31/19 09:14 03/31/19 09:14 Oxygen Flow Rate (L/min) 92 Oxygen Delivery Method Room Air Weight: 59.783 kg Body Mass Index (BMI) 18.8 Intake and Output for Last 24 Hours 03/29/19 03/30/19 03/31/19 23:59 23:59 23:59 Intake Total 4293.34 / 4293.34 2108.33 / 2348.33 290 / 290 Output Total 850 / 850 1275 / 1800 1250 / 1250 Balance 3443.34 / 3443.34 833.33 / 548.33 -960 / -960 Microbiology Past 72 Hours 03/28/19 16:05 Sputum, Expectorated/Coughed Gram Stain - Final 03/28/19 16:05 Sputum, Expectorated/Coughed Respiratory Culture - Preliminary Streptococcus pneumoniae 03/28/19 13:55 Blood Culture (Wb) - Anticubital Right Blood Culture - Preliminary No growth in 48 hours. 03/28/19 13:50 Blood Culture (Wb) - Anticubital Left Blood Culture - Preliminary No growth in 48 hours. 03/28/19 21:20 Mucosa - Nasopharyngeal Respiratory Panel (PCR) - Final 03/28/19 18:49 Urine, Clean Catch Streptococcus pneumoniae Antigen (M - Final 03/28/19 18:49 Urine, Clean Catch Legionella Antigen - Final Laboratory Results 03/31/19 05:55: WBC 4.6, RBC 3.76 L, Hgb 11.5 L, Hct 34.2 L, MCV 91.0, MCH 30.6, MCHC 33.6, RDW Std Deviation 40.8, RDW Coeff of Michael 12.2, Plt Count 210, MPV 8.3, Immature Gran % (Auto) 1.800 H, Neut % (Auto) 71.6 H, Lymph % (Auto) 12.9 L, Milam % (Auto) 10.7 H, Eos % (Auto) 2.6, Baso % (Auto) 0.4, Absolute Neuts (auto) 3.3, Absolute Lymphs (auto) 0.59 L, Nucleated RBC % 0 03/31/19 05:55: Sodium 132 L, Potassium 4.2, Chloride 98, Carbon Dioxide 29.0, Anion Gap 5, BUN 13, Creatinine 0.76, Estim Creat Clear Calc 47.33, Est GFR (MDRD) Af Amer 127, Est GFR (MDRD) Non-Af 105, BUN/Creatinine Ratio 17.2, Glucose 94, Calcium 7.8 L Current Medications Acetaminophen (Tylenol) 650 mg PO Q6H PRN PRN PRN Reason: Non-cardiac pain (-01/06) Al Hydroxide/Mg Hydroxide (Mylanta Ii) 15 - 30 ml PO Q4H PRN PRN PRN Reason: INDIGESTION Albuterol Sulfate (Ventolin Aerosols) 2.5 mg INHALATION Q2H PRN PRN PRN Reason: dyspnea, wheezing Albuterol/Ipratropium (Duoneb) 3 ml INHALATION Q6HWA.RT [facility] Last Admin: 03/31/19 07:04 Dose: 3 ml Documented by: Calamine/Phenol (Calmoseptine Ointment) 1 applic TOPICAL 4X/DAY [facility]; Protocol Last Admin: 03/31/19 09:53 Dose: Not Given Documented by: Dextrose (D50w Syringe) 0 gm IV X1 PRN; Protocol PRN Reason: Hypoglycemia Enoxaparin Sodium (Lovenox) 40 mg SC DAILY [facility] Last Admin: 03/31/19 09:18 Dose: 40 mg Documented by: Glucagon () 1 mg IM .X1 PRN PRN Reason: Hypoglycemia Guaifenesin (Robitussin) 20 ml PO Q4H PRN PRN PRN Reason: COUGH Hydralazine HCl (Apresoline Iv) 10 mg IV Q4H PRN PRN PRN Reason: SBP > 160 Azithromycin 500 mg/ Dextrose 255 mls @ 250 mls/hr IV Q24 [facility] Stop: 04/03/19 10:01 Last Admin: 03/31/19 09:17 Dose: 250 mls/hr Documented by: Ceftriaxone Sodium 2 gm/ (Sodium Chloride) 50 mls @ 100 mls/hr IV Q24 [facility] Stop: 04/05/19 10:01 Last Infusion: 03/31/19 09:50 Dose: Infused Documented by: Melatonin (Melatonin) 3 mg PO QHS PRN PRN PRN Reason: INSOMNIA Nutritional Formula (Lactose Free) (Ensure Enlive) 120 ml PO 4X/DAY [facility] Last Admin: 03/31/19 09:18 Dose: 120 ml Documented by: Ondansetron HCl (Zofran) 4 mg IV Q8H PRN PRN PRN Reason: NAUSEA/VOMITING Sodium Chloride () 10 - 40 ml IV UD PRN PRN Reason: SALINE FLUSH Last Admin: 03/30/19 20:33 Dose: 10 ml Documented by: Throat Lozenges (Cepacol Sore Throat Lozenge) 1 lozenge MUCOUS MEM Q2H PRN PRN PRN Reason: Sore throat or cough Discharge Diet: No Restrictions Discharge Activity: Return to Normal Activity Home Medications: Medications to take at Discharge Cholecalciferol (Vitamin D3) [Vitamin D3] 2,000 unit PO DAILY 03/28/19 Cefdinir 300 mg PO BID #14 cap 03/31/19 Guaifenesin [Mucinex] 1,200 mg PO BID #14 tab 03/31/19 Prednisone 20 mg PO BID #10 tab 03/31/19 Following Prescrptions Were Given to Patient: Cefdinir 300 mg PO BID #14 cap Transmission Status: Pending to [facility] Guaifenesin [Mucinex] 1,200 mg PO BID #14 tab [facility] Prednisone 20 mg PO BID #10 tab [facility] Primary Care Physician: Hakeem Frank III, MD [Primary Care Provider] - Please follow up with your Primary Care Physician in: in 5-7 days Disposition: Home Minutes spent on discharge:: 38 Patient Condition:: Stable Medical Necessity - Tobacco Use Smoking Status: Current every day smoker Tobacco Use: Cigarettes Meaningful Use Info Meaningful Use Diagnoses (Choose all that apply): None applicable Code Visit Inpatient E&M: 64190 Disch Hosp
--- NOTE | 2019-03-31 11:20 | PHA.DC.MC ---
Pharmacy Service has performed discharge medication reconciliation and counseling for this patient. 1. CEFDINIR 300MG PO BID X 7 DAYS 2. GUAIFENESIN 1200MG PO BID X 7 DAYS 3. PREDNISONE 20MG PO BID X 5 DAYS The patient's discharge medication list was reviewed for discrepancies and discrepancies were resolved. Home Medications Cholecalciferol (Vitamin D3) [Vitamin D3] 2,000 unit PO DAILY 03/28/19 Cefdinir 300 mg PO BID #14 cap 03/31/19 Guaifenesin [Mucinex] 1,200 mg PO BID #14 tab 03/31/19 Prednisone 20 mg PO BID #10 tab 03/31/19 The patient was counseled on the following discharge medications and changes in medications for homegoing were reviewed. The Reason for Use, instructions for use, and potential side effects were reviewed for all new medications. The patient's questions regarding all of their medications were answered. The patient was able to verbally demonstrate an understanding of their discharge medications.
[2019-03-31 12:45] VITALS: PULSE 88; RESP 20
[2019-03-31 15:46] LABS: Pathologist Review Reviewed
--- NOTE | 2019-04-01 16:15 | CASEMGMT ---
NIMCO ROSENBERG Discharge F/U Phone Call LACE: 11 Strata: 3 Discharge date: 03/31/19 Call date: 04/01/18 Call time: [id number] Admission dx: Pna, hyponatremia Pt states he has been 'doing good' since discharge. Pt states no questions regarding discharge instructions or medications at this time. Pt states has f/u scheduled with Dr. Frank on 04/08/19 and plans to keep. Pt states no suggestions for [facility] at this time. Pt voices no further questions/concerns/needs at this time. [place] NIMCO ROSENBERG
== END 2019-03-31 13:27 | disposition home or self-care (01) | DRG 193 ==
LOC: ED 13:26 → PCU 13:44
PROVIDERS: Admitting Provider Family Medicine; Emergency Provider Emergency Medicine; Family Provider Family Medicine; PCP Family Medicine; Referring Provider Family Medicine; Visit Provider Internal Medicine
DX: J13 Pneumonia due to Streptococcus pneumoniae (principal); E43 Unspecified severe protein-calorie malnutrition; E87.1 Hypo-osmolality and hyponatremia; Z68.1 Body mass index [BMI] 19.9 or less, adult; Z85.46 Personal history of malignant neoplasm of prostate; J43.9 Emphysema, unspecified; F17.210 Nicotine dependence, cigarettes, uncomplicated; L89.151 Pressure ulcer of sacral region, stage 1; A08.4 Viral intestinal infection, unspecified
CPT/HCPCS: 36415; 71045; 71250; 80048; 80053; 83605; 83735; 85025; 87040; 87070; 87077; 87186; 87205; 87449; 87633; 94640; 97116; 97162; 97166; 97530; 97535; 97802; 99251; 99284; J7030; A4216; G0463; J0696

== ENCOUNTER → 2019-07-19 09:09 | Outpatient (CLI) | payer MEDICARE, OTHER, SELFPAY ==
[2019-03-28 14:30] VITALS: BMI 18.8
== END ==
PROVIDERS: PCP Family Medicine; Referring Provider Urology; Visit Provider Urology
DX: N39.0 Urinary tract infection, site not specified (principal)
CPT/HCPCS: 87086; 87088

== ENCOUNTER 2019-08-03 11:40 | Day surgery (SDC) | payer MEDICARE, OTHER, SELFPAY ==
[2019-03-28 14:30] VITALS: BMI 18.8
[2019-08-03] VITALS (7 sets, daily range): BP systolic 130–151; BP diastolic 80–94; PULSE 70–80; RESP 15–18; TEMP 36.4–37.1; O2SAT 97–998; BMI 19.8
[2019-08-03] MEDS: Lactated Ringers 1,000 ML 100 ML IV (12:25)
[2019-08-03] MEDS: Cefazolin 2 GM in 0.9% Normal Saline 100 ML IV (14:36)
--- NOTE | 2019-08-03 14:47 | HP.PCM_ITS ---
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 Past Medical History Past Medical History (Chronic Problems): Chronic Problems Prostatic cancer (Chronic) Malnutrition (Chronic) Tobacco use (Chronic) Allergies No Known Allergies Allergy (Verified 08/03/19 12:07) Home Medications: Ambulatory Orders Medication Instructions Recorded Cholecalciferol (Vitamin D3) 2,000 unit PO DAILY 03/28/19 [Vitamin D3] Surgical History: - - Appendectomy. Psychiatric History: No pertinent psych hx Smoking Status: Former smoker - *Family History Maternal History Items: Cancer Paternal History Items: Cancer Review of Systems Constitutional: Denies: Chills, Fever, Weight Change HEENT: Denies: Head Aches, Sinus Congestion, Sinus Drainage Cardiovascular: Denies: Chest Pain, Palpitations Respiratory: Denies: Cough, Shortness of breath at rest, Sputum production Gastrointestinal: Denies: Abdominal Pain, Nausea, Vomiting Genitourinary: Denies: Dysuria Musculoskeletal: Denies: Joint Pain, Joint Tenderness Skin: Denies: Rash, Wounds Neurological: Denies: Numbness, Tingling, Focal weakness Psychiatric: Denies: Anxiety, Depression, Homicidal Ideations, Suicidal Ideations Hematologic/ Lymphatic: Denies: Easy Bruising, Easy Bleeding VTE Information - Inpt Only VTE Present on Admission: No VTE Mechan Device Prophylaxis: SCD's Patient Problems: Active and Suspected Problems Right hydronephrosis (Acute) - Physical Exam Vitals/I&O's: Vital Signs Temp Pulse Resp BP Pulse Ox 97.5 F L 70 15 140/84 H 97 08/03/19 12:07 08/03/19 12:07 08/03/19 12:07 08/03/19 12:07 08/03/19 12:07 Oxygen Delivery Method Room Air Weight: 62.6 kg Body Mass Index (BMI) 19.8 General: Alert, Oriented x3, Cooperative HEENT: Atraumatic, PERRLA, EOMI, Normocephalic Neck: Supple, No JVD, Negative Carotid Bruits Lungs: Clear to auscultation, Normal air movement Cardiovascular: Regular rate, No murmurs Abdomen: Bowel Sounds Present, Soft, Non Tender Extremities: No edema, Capillary Refill Less than 3 Seconds Skin: No rashes, No breakdown Musculoskeletal: No Tenderness to Palpation of Joints or Extremities Neurological: Cranial nerves II-XII grossly intact Psych/Mental Status: Normal Affect, Appropriate Current Medications Lactated Ringer's () 1,000 mls @ 100 mls/hr IV .Q10H [facility] Last Admin: 08/03/19 12:25 Dose: 100 mls/hr Documented by: Assessment/Plan All Active Problems Right hydronephrosis (Acute) Influenza (Resolved) Acute bronchitis (Acute) Pneumonia (Acute) Gastroenteritis (Acute) Hyponatremia (Acute) Plan proceed with cystoscopy and right stent change and right retrograde guerrero logram.
--- NOTE | 2019-08-03 14:49 | DCINST_ITS ---
Discharge Diet: Light diet - advance as tolerated Discharge Activity: Return to Normal Activity Call your doctor if your incision/area has: Sudden Increased Bleeding Call your doctor if you observe: Fever of 101 or Higher Suture Line Care: Avoid Pulling/Pushing, Avoid Pinching/Bending Allergies/Adverse Reactions: Allergies No Known Allergies Allergy (Verified 08/03/19 12:07) Medications to take at Discharge Cholecalciferol (Vitamin D3) [Vitamin D3] 2,000 unit PO DAILY 03/28/19 Ciprofloxacin [Cipro] 500 mg PO BID #6 tab 08/03/19 The following prescriptions were given: Ciprofloxacin [Cipro] 500 mg PO BID #6 tab Prescription Printed Primary Care Physician: Hakeem Frank III, MD [Primary Care Provider] - Test Results: Test results from this visit will be discussed in further detail at your follow- up appointment, if applicable. Please Follow Up With: Gildardo Hollingsworth MD
[2019-08-03] MEDS: Lidocaine Jelly 2% 20 ML Syringe (URO-JET) 20 APPLIC (15:00)
--- NOTE | 2019-08-03 15:02 | PCM.OPRPT ---
Problem List (1) Prostatic cancer Status: Chronic (2) Right hydronephrosis Status: Acute Report of Operation Date of Procedure: 08/03/19 Pre-Operative Diagnosis: Right hydronephrosis obstruction of the distal right ureter history of prostate cancer Post-Operative Diagnosis: Same Surgery/Procedure Performed:: Cystoscopy right retrograde pyelogram, interpretation of fluoroscopic images, right stent placement. Description of Surgical Findings:: 83-year-old male with a history of prostate cancer treated with radiation therapy, has a history of high-grade cancer fortunately some in in remission but he has scar tissue in the distal ureter causing obstruction and chronic obstruction of the right kidney which is been managed with a stent we talked about other management options including a nephrectomy, reconstructive surgery but given his age and comorbidities he is willing to undergo stent placement and management of the stent of his kidney. Most recently is been having more pain in the right side is got increasing hydronephrosis. Renal proceed with a right stent placement today under MAC local in the hospital to go home with a catheter today. Patient was taken back to the operating room at the smooth induction of anesthesia he was placed supine on the table with the legs in dorsolithotomy position, the penis testicles were prepped and draped in usual fashion went into the bladder with a 21 [place]ian rigid cystourethroscope the entire length the urethra is normal the sphincter was normal the prostate was firm and hard but had a nice wide open channel minimal obstruction inside the bladder I grabbed the existing stent pulled out to the meatus advance a wire up the stent and then over the wire advance a Pollack catheter performed a retrograde pyelogram could see pretty severe hydronephrosis of the right kidney I then advanced a new stent up into the kidney it was a 6 Mont[place]erratian by 26 cm stent was stent was in good position of the kidney and bladder pulled the wire of the kidney was draining well and the drain the bladder placed a Vargas catheter and bladder 16 [place]erratian catheter he will go home with a catheter he can have removed in the office in a few days. Patient tolerated procedure well was taken back to the PACU in good condition. Type of Anesthesia:: General Drains: stent right side - Admit VTE Documentation VTE Present on Admission: No VTE Mechan Device Prophylaxis: SCD's
== END 2019-08-03 16:18 | disposition home or self-care (01) ==
LOC: SDC 11:41 → AC 11:42
PROVIDERS: PCP Family Medicine; Referring Provider Urology; Visit Provider Urology
PROC: (CPT 52332; principal; 2019-08-03 13:40)
DX: N13.1 Hydronephrosis with ureteral stricture, not elsewhere classified (principal); Z85.46 Personal history of malignant neoplasm of prostate; Z92.3 Personal history of irradiation; Z87.891 Personal history of nicotine dependence
CPT/HCPCS: 52332; 76000; J7120; C1769; C2617

== ENCOUNTER → 2019-08-05 13:55 | Outpatient (CLI) | payer MEDICARE, OTHER, SELFPAY ==
[2019-03-28 14:30] VITALS: BMI 18.8
[2019-08-03 12:07] VITALS: BMI 19.8
--- NOTE | 2019-08-05 14:00 | CT_ITS ---
STUDY: CT ABDOMEN AND PELVIS WITHOUT CONTRAST REASON FOR EXAM: Male, 83 years old. STENT REPLACED R SIDE URETER. RADIATION DOSAGE (If Supplied By Facility): CTDIvol = ( 7.13 ) mGy, DLP = ( 336.77 ) mGycm TECHNIQUE: Transaxial images were obtained from the dome of the diaphragm to the symphysis pubis without oral contrast, and without intravenous contrast. Sagittal and coronal images were reconstructed. Individualized dose optimization techniques were used for this CT. COMPARISON: Comparison is made with prior study dated October 04, 2014. FINDINGS: There is a 3.1 cm x 3.6 cm area of the irregular infiltrate in the posteromedial segment of the right lower lobe. A metastatic deposit with scarring should be ruled out. Coronary calcification. Normal liver. There are multiple small gallstones. Normal spleen. Normal pancreas. Normal bilateral adrenal glands. A right-sided double-J stent catheter is seen. The proximal tip is in the right renal pelvis and the distal tip is in the urinary bladder. Mild left hydronephrosis. A 3 mm calculus is seen in the posterior midpole calyx. 2 small cysts are seen in the left kidney. The larger measures 1.2 cm. There is a small hiatal hernia. Normal small intestine. There are multiple colonic diverticula consistent with diverticulosis. The appendix is visualized and appears normal. There is diffuse atherosclerotic calcification of the abdominal aorta, without a demonstrated aneurysm. Normal inferior vena cava. Normal retroperitoneum. Mild degree of bladder wall thickening although the bladder is not completely distended. The prostate measures 4.2 cm x 4.6 cm. radiation seeds are seen within the prostate. Normal abdominal wall. There are diffuse degenerative changes of the visualized lumbar spine. There is almost complete collapse of the T12, L1 and L3 vertebrae. Multilevel disc space narrowing and disc degeneration. Healed right superior pubic ramus fracture. CT/Abdomen/Pelvis without Cont IMPRESSION: Right-sided double-J stent catheter in good position. Left renal cyst with a 3 mm nonobstructive calculus in the posterior midpole calyx. Multiple small gallstones. Mild degree of bladder wall thickening. Prostatic enlargement. Electronically Signed: Andres Rojas, at 14:41 EDT , Service support ,
== END ==
PROVIDERS: PCP Family Medicine; Referring Provider Urology; Visit Provider Urology
DX: R10.31 Right lower quadrant pain (principal)
CPT/HCPCS: 74176

== ENCOUNTER → 2019-09-08 13:18 | Outpatient (CLI) | payer MEDICARE, OTHER, SELFPAY ==
[2019-08-03 12:07] VITALS: BMI 19.8
--- NOTE | 2019-09-08 13:22 | CT_ITS ---
STUDY: CT CHEST WITHOUT CONTRAST REASON FOR EXAM: Male, 83 years old. LUNG NODULE F/U, HX-EMPHYSEMA, PROSTATE CA- RAD TX RADIATION DOSAGE (If Supplied By Facility): CTDIvol = ( 8.22 ) mGy, DLP = ( 324.42 ) mGycm TECHNIQUE: Transaxial imaging was performed without the administration of intravenous contrast material. Multiplanar coronal and sagittal images were reformatted. Individualized dose optimization techniques were used for this CT. COMPARISON: Comparison is made with prior examination dated March 29, 2019 and October 14, 2018. FINDINGS: Stable emphysematous changes worse in the upper lobes. There is a 1.5 cm spiculated nodule in the superior segment of the left lower lobe. This has increased in size as compared to prior study. There is a 1.9 cm x 1.5 cm noncalcified nodule in the posterior segment of the left lower lobe. This was not seen on prior study due to the bibasilar pulmonary infiltrates. Mild degree of residual increased markings are seen at the posterior medial segment of the right lower lobe. There is no demonstrated pleural abnormality. There are calcifications of the coronary arteries. There are multiple small lymph nodes within the mediastinum, which are normal in size and morphology most compatible with reactive lymph hyperplasia. The largest measures 1.7 cm and is located in the precarinal space. Normal hilar regions. Normal unenhanced pulmonary arteries. There is atherosclerotic calcification of the aortic arch with tortuosity and elongation of the aortic arch and descending thoracic aorta. There are multi-level degenerative changes of the thoracic spine. There is no demonstrated abnormality of the visualized upper abdomen. CT/Chest without Contrast IMPRESSION: The previously seen bibasilar infiltrations with small effusions have almost completely resolved. There is a 1.5 cm spiculated nodule in the superior tip of the left lower lobe as well as a 1.9 cm x 1.5 cm noncalcified nodule in the posterior medial segment of the left lower. Electronically Signed: Andres Rojas, at 15:12 EDT , Service support ,
== END ==
PROVIDERS: Family Provider Family Medicine; PCP Family Medicine; Referring Provider Internal Medicine Pulmonary Disease; Visit Provider Internal Medicine Pulmonary Disease
DX: R91.1 Solitary pulmonary nodule (principal)
CPT/HCPCS: 71250

== ENCOUNTER → 2020-02-13 13:10 | Outpatient (CLI) | payer MEDICARE, OTHER, SELFPAY ==
[2019-08-03 12:07] VITALS: BMI 19.8
[2019-09-22 09:28] VITALS: BMI 19.5
--- NOTE | 2020-02-13 13:11 | CT_ITS ---
STUDY: CT CHEST WITHOUT CONTRAST REASON FOR EXAM: Male, 84 years old. Treated lung cancer follow-up, prostate cancer RADIATION DOSAGE (If Supplied By Facility): CTDIvol = ( 7.81 ) mGy, DLP = ( 283.74 ) mGycm TECHNIQUE: Transaxial imaging was performed without the administration of intravenous contrast material. Individualized dose optimization techniques were used for this CT. COMPARISON: 04 October 2019, 08 September 2019, 29 March 2019, 14 October 2018 FINDINGS: Examination is technically limited due to lack of IV contrast. Evaluation of vascular and soft tissue pathology is limited. Some general diagnostic information is available. Lungs are moderately emphysematous. Left lower lobe superior segment spiculated approximately 1.1 cm lesion is stable. Right lower lobe irregular focal parenchymal solid opacity and surrounding groundglass of mildly increased since prior. Lungs are severely emphysematous. Aorta is of normal caliber. Right and left pulmonary arteries are moderately enlarged. Right heart is mildly enlarged. Left ventricle is normal. Coronary arteries are severely diseased. Evaluation of mediastinal contents is limited. However, there is precarinal 1.2 x 2.2 cm lymph node. There is diffuse osteoporosis with multilevel lower thoracic and upper lumbar chronic compression fractures. Adrenals are normal. Gallbladder contains multiple calcified stones. CT/Chest without Contrast IMPRESSION: 1. Stable left lower lobe 1.1 cm solid nodule, probably lung cancer. 2. Increasing right lower lobe irregular mixed density opacity, possibly posttreatment focal radiation pneumonitis versus infectious pneumonitis/progressive focal scarring. 3. Mediastinal lymph nodes, refer to definitive examination such as CT PET or CT of the chest with IV contrast for mediastinal status assessment. Appearance is nonspecific and can be reactive versus neoplastic. 4. Severe coronary artery disease. 5. Moderate pulmonary arterial hypertension. 6. Severe emphysema. Electronically Signed: Dariana Moise, at 17:01 EST Tel , Service support ,
== END ==
PROVIDERS: PCP Family Medicine; Referring Provider Student in an Organized Health Care Education/Training Program; Visit Provider Student in an Organized Health Care Education/Training Program
DX: C34.92 Malignant neoplasm of unspecified part of left bronchus or lung (principal)
CPT/HCPCS: 71250

== ENCOUNTER → 2020-05-10 15:10 | Outpatient (CLI) | payer MEDICARE, OTHER, SELFPAY ==
[2019-08-03 12:07] VITALS: BMI 19.8
[2019-09-22 09:28] VITALS: BMI 19.5
[2020-05-10 17:41] LABS: PSA,Total- Diagnostic 0.08 ng/mL (0.0-4.0)
== END ==
PROVIDERS: PCP Family Medicine; Referring Provider Radiology Radiation Oncology; Visit Provider Radiology Radiation Oncology
DX: Z85.46 Personal history of malignant neoplasm of prostate (principal)
CPT/HCPCS: 36415; 84153

== ENCOUNTER 2021-05-26 18:20 | Emergency (ER) | payer MEDICARE, OTHER, SELFPAY ==
[2019-09-22 09:28] VITALS: BMI 19.5
[2021-05-26 18:21] VITALS: BP 130/89; PULSE 114; RESP 16; TEMP 37.2; O2SAT 90; BMI 19.3
[2021-05-26 18:59] VITALS: O2SAT 92
--- NOTE | 2021-05-26 19:14 | EKG12_ITS ---
Test Reason : DYSRHYTHMIA Blood Pressure : / mmHG Vent. Rate : 097 BPM Atrial Rate : 097 BPM P-R Int : 132 ms QRS Dur : 078 ms QT Int : 332 ms P-R-T Axes : 072 074 071 degrees QTc Int : 421 ms Normal sinus rhythm Normal ECG Confirmed by SHA CRABTREE, MAVIS ([id number]), tape editor ALLISON ROSADO ([id number]) on 05/28/2021 11:06:47 AM Referred By: SIM Confirmed By:MAVIS DALTON MD
--- NOTE | 2021-05-26 19:16 | EX.ED.VIS.UR ---
HPI HPI - URI History of Present Illness Chief Complaint: Cough Informant: patient Onset/Context/Timing Onset: Days Context: Gradual Onset Timing: Continuous Current Severity: Mild Maximum Severity: Mild Associated Symptoms Associated Symptoms: Positive for Shortness of Breath and Productive Cough Narrative Narrative: 85-year-old male past medical history of right ureteral stent. Patient states about 2 years ago was admitted for respiratory infection. States that since Thursday he has had a cough of cloudy sputum. He denies any nausea, vomiting or diarrhea. No fever. He denies any hemoptysis. No chest pain. He was vaccinated against COVID. He denies any recent travel, surgery or immobilization. He is never had a DVT or PE. He has chronic ankle swelling but that is not new or worse. He denies any calf pain. Prior similar symptoms: Yes Recent Illness/Hospitalization: No ROS ROS ED ROS Narrative Cough. Shortness of breath. Review of Systems ROS Unobtainable: Denies due to encephalopathy Constitutional Constitutional ED: Denies fever(s) Eyes Eyes: Denies change in vision ENT ENT ED: Denies ear pain Cardiovascular Cardiovascular: Denies chest pain Respiratory/Chest Respiratory/Chest: Reports cough, dyspnea and sputum Gastrointestinal Gastrointestinal: Denies abdominal pain Genitourinary Genitourinary ED: Denies dysuria Musculoskeletal Musculoskeletal: Denies myalgias Integumentary Denies rash Neurologic Neurologic: Denies headache(s) Psychiatric Psychiatric: Denies depression Endocrine Endocrinology: Denies polyuria Hematologic/Lymphatic Hematologic/Lymphatic: Denies easy bruising Allergic/Immunologic Allergic/Immunologic ED: Denies urticaria PFSH PFSH Medical History Kidney failure Prostate cancer Home Medications azithromycin [Zithromax] 250 mg PO DAILY 4 Days #4 tab 05/26/21 [Rx Last Taken Unknown] Allergy/AdvReac Type Severity Reaction Status Date / Time No Known Allergies Allergy Verified 05/26/21 18:21 Surgical History H/O hernia repair History of renal stent Social History Smoking Status: Former smoker EXAM Physical Exam Narrative Exam Narrative: 85-year-old male no acute distress vital signs stable his temperature is 99. His heart rate is 114. His pulse ox is 90% on room air with hypoxia. He does not look septic or toxic. H EENT exam unremarkable. Moist mucous memories. Neck nontender. No lymphadenopathy. No JVD. Lungs clear to auscultation bilaterally. Heart tachycardic rate of 114 no murmur. Chest were nontender. Abdomen soft nontender. Moving all 4 extremities. Trace ankle edema bilaterally. 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 Normal dorsi plantar flexion. Back nontender. Neurologically is awake and alert with no focal motor deficits. Const Vital Signs: 05/26/21 18:21 05/26/21 18:59 05/26/21 19:59 Temperature 99.0 F Temperature Source Temporal Pulse Rate 114 H 96 Respiratory Rate 16 22 H Respiratory Effort Short of Breath Respiratory Depth Normal Respiratory Pattern Normal Blood Pressure 130/89 H 126/70 H Blood Pressure Mean 102 88 Pulse Ox 90 91 Oxygen Delivery Method Room Air Room Air Room Air Positive well nourished and well developed; Negative for obese, cachectic or contractures General Appearance ED: well developed and NAD; Negative for cachectic, contractures, cyanotic, diaphoretic or pallor Nutritional Appearance: Negative for cachectic or obese HEENT Reports moist mucous membranes normocephalic and atraumatic Eyes PERRL and EOMs intact bilaterally General Eye ED: Negative for pale conjunctiva or scleral icterus Neck no lymphadenopathy, supple, no meningeal signs and no JVD General: Negative for anterior neck swelling or lymphadenopathy Resp normal respiratory effort and clear to auscultation bilaterally Effort and Inspection: Negative for retractions Auscultation: Negative for rales, rhonchi, wheezes or diminished lung sounds Cardio S1 normal heart sound, S2 normal heart sound and no murmurs Rate: tachycardic; Negative for regular rate Rhythm: regular rhythm GI non-tender, non-distended and no masses Inspection: Negative for abdominal distention Auscultation: normoactive bowel sounds Palpation: soft; Negative for tender or guarding Back/Spine no CVA tenderness General Back: Negative for CVA tenderness Cervical Spine: Negative for cervical spine tenderness Thoracic Spine / Upper Back: Negative for thoracic spinal tenderness Extremity normal to inspection and full ROM Extremity Narrative: Bilateral mild ankle edema. General Extremety ED: Negative for cyanosis or tenderness General Extremity: Negative for cyanosis Neuro oriented x3 Sensorium / Orientation: alert, oriented to person, oriented to place and oriented to time; Negative for orientation impaired, lethargic or stuporous Psych mental status grossly normal Attitude: No agitated Mood & Affect: Negative for depressed, anxious or tearful Skin General Skin Exam: Negative for jaundice or pallor Lesions: no lesions Rashes: no rashes MDM MDM MDM Narrative Medical decision making narrative: 85-year-old male with cough and shortness of breath. Differential would include COVID/pneumonia/URI/CHF versus other etiologies. No undergo a cardiac work-up with Covid test. Repeat exam patient is doing well at 8:30 PM. Due to his chest x-ray being a possible right lower lobe infiltrate, is cough and sputum production of be started on Zithromax. His vital signs are stable. He will be discharged home. Lab Data Attestation: I reviewed the patient's lab results. Lab results narrative: CBC normal. White count of 6.7. H&H of 14 and 41. Platelets are slightly low at 146,000. Electrolytes sodium 134 gap of 7 BUN and creatinine of 21.1. Glucose 118. Troponin normal at 9. Lactic acid normal 1.1. Labs: Laboratory Results - last 24 hr 05/26/21 05/26/21 05/26/21 19:15 19:15 19:15 WBC 6.7 RBC 4.40 L Hgb 14.4 Hct 41.8 MCV 95.0 H MCH 32.7 H MCHC 34.4 RDW Std Deviation 43.8 RDW Coeff of Michael 12.5 Plt Count 146 L MPV 9.6 Immature Gran % (Auto) 1.200 H Neut % (Auto) 88.7 H Lymph % (Auto) 3.7 L Toombs % (Auto) 6.0 Eos % (Auto) 0.3 Baso % (Auto) 0.1 Absolute Neuts (auto) 5.9 Absolute Lymphs (auto) 0.25 L Nucleated RBC % 0 Differential Comment SCANNED Sodium 134 L Potassium 4.0 Chloride 102 Carbon Dioxide 25.0 Anion Gap 7 BUN 20 H Creatinine 1.10 Estim Creat Clear Calc 42.52 Est GFR (MDRD) Af Amer 82 Est GFR (MDRD) Non-Af 68 BUN/Creatinine Ratio 18.2 Glucose 118 H Lactic Acid 1.1 Calcium 8.7 Troponin I High Sens 9 Radiography Diagnostic Testing: Clinical Impression(s) from Imaging Studies Chest X-Ray 05/26/21 20:00 IMPRESSION: 1. Bibasilar scarlike opacities and reticular opacities suspected to represent chronic post radiation changes and/or scarring. Atypical infection not completely excluded. 2. Limited changes. Electronically Signed: Nithin Keys DO at 21:05 EST Reading Location ID and State: [facility] / [place] Tel , Service support , Chest x-ray portable single view, interpreted by myself shows either atelectasis, chronic changes or right lower lobe infiltrate. Rhythm Strip Rhythm Strip: Sinus Rhythm Rate: 97 Ectopy: None EKG Initial EKG: Attestation: I personally reviewed and interpreted this EKG as follows: Interpretation: Sinus Rhythm and No Acute Injury Pattern Comments: Normal sinus rhythm rate of 97 no acute signs of [place] or ischemia. Unchanged from a prior from August 2018. Prior EKG tracings: available for review Prior: Unchanged Discharge Plan Triage Chief Complaint: Cough ED Provider: Abhishek Isabel Dx/Rx/DC Orders Clinical Impression: Pneumonia Instructions: ED Pneumonia (Adult) Prescriptions: New azithromycin [Zithromax] 250 mg tablet 250 mg PO DAILY 4 Days Qty: 4 RF: 0 Primary Care Provider: Care Physician,No Primary Referrals: Carrie Cleary MD [STAFF PHYSICIAN] - 3-5 Days if not improving Care Physician,No Primary [Primary Care Provider] - Activity Restrictions/Additional Instructions: Plenty of fluids and rest. You may possibly have either bronchitis or early pneumonia is difficulty turning your chest x-ray. You will be started on antibiotic Zithromax. Start taking tomorrow after lunch. 1 pill a day for 4 more days. First dose given here in the ER. Return if you are feeling worse otherwise follow-up with a local primary care physician. Disposition Disposition: Home, Self Care
[2021-05-26 19:27] LABS: Absolute Lymphocyte Count 0.25 X10^3/uL (0.83-4.51); Absolute Neutrophil Count 5.9 X10^3/uL (2.0-7.7); Basophil# 0.01 X10^3/uL; Basophil% 0.1 % (0-1); Eosinophil# 0.02 X10^3/uL; Eosinophils% 0.3 % (0-5); Hematocrit 41.8 % (40-54); Hemoglobin 14.4 g/dL (13.0-16.5); Lymphocyte # 0.25 X10^3/ul (0.83-4.51); Lymphocyte % 3.7 % (19-41); Mean Corp Hgb Conc 34.4 g/dL (32-36); Mean Corpuscular Hgb 32.7 pg (27.0-32.0); Mean Platelet Vol. 9.6 fl (6.2-12.0); NRBC Flagged by Analyzer 0 % (0-5); Neutrophil # 5.91 X10^3/uL (2.7-7.7); Neutrophil % 88.7 % (47-70); POSITIVE DIFFERENTIAL YES; Platelet Count 146 K/mm3 (150-450); RBC Distribution Width CV 12.5 % (11.6-14.6); RBC Distribution Width SD 43.8 fl (35.1-43.9); White Blood Count 6.7 K/mm3 (4.4-11.0)
[2021-05-26 19:33] LABS: Differential Indicated SCAN CRITERIA MET
[2021-05-26 19:50] LABS: Anion Gap 7 (5-15); BUN 20 mg/dL (7-18); BUN/Creat Ratio 18.2 RATIO (10-20); Calcium,Total 8.7 mg/dL (8.5-10.1); Chloride 102 mmol/L (98-107); EST Glomerular Filtration Rate 68 mL/min (>60); Est Glom Filt Rate - Afr Amer 82 mL/min (>60); Estimated Creatinine Clearance 42.52 ml/min; Glucose 118 mg/dL (74-106); Sodium Level 134 mmol/L (136-145); Troponin-I HS 9 pg/mL (3.0-78.0)
[2021-05-26 19:59] VITALS: BP 126/70; PULSE 96; RESP 22; O2SAT 91
[2021-05-26 20:00] LABS: Lactic Acid 1.1 mmol/L (0.4-1.9)
--- NOTE | 2021-05-26 20:00 | RAD_ITS ---
INDICATION: cough EXAMINATION/TECHNIQUE: X-RAY - XR Chest 1 View COMPARISON: CT chest 02/13/2020. FINDINGS: LINES/DEVICES: None. LUNGS: Left lower lobe, superior segment and inferior segmental pulmonary nodules seen on the prior CT chest not visible on this exam. Scarlike opacity in the right lower lobe suspected represents scarring and/or radiation changes with appearance at least partially present on prior CT. New left lower lobe retrocardiac reticular opacities suspected represent postradiation changes. Atypical infection cannot be completely excluded. No focal consolidation. No pleural effusion. No pneumothorax. Increased lung volumes with hyperlucency in the upper lobes suggesting emphysema. MEDIASTINUM AND CARDIOVASCULAR STRUCTURES: Normal size and contour of the cardiomediastinal silhouette. No evidence of pulmonary vascular congestion. BONES AND SOFT TISSUES: Vertebral body height loss proximal lumbar vertebral body, not appreciably changed compared to comparison CT. Soft tissue drain projects over the right upper quadrant, incompletely visualized. RAD/Chest 1 View (Portable) IMPRESSION: 1. Bibasilar scarlike opacities and reticular opacities suspected to represent chronic post radiation changes and/or scarring. Atypical infection not completely excluded. 2. Limited changes. Electronically Signed: Nithin Keys DO at 21:05 EST ,
[2021-05-26] MEDS: 0.9% Normal Saline 1,000 ML 1000 ML IV (20:18)
[2021-05-26 20:47] LABS: Differential Comment SCANNED
[2021-05-26 21:55] VITALS: BP 133/67; PULSE 92; RESP 22; O2SAT 97
--- NOTE | 2021-05-27 11:45 | CASEMGMT ---
NIMCO ROSENBERG ED follow-up: Date of ER visit: 05/26/2021 Presenting ER complaint: cough NIMCO ROSENBERG placed call to patient's telephone number listed on demographics and patient answered. NIMCO ROSENBERG introduced self and role at [facility]. Patient states feeling a little better today. Denies fever. Patient reports to episode of diarrhea this morning. Instructed on bland diet and to push fluids to remain hydrated. Patient reports is currently at pharmacy to machine pecan picker prescription medication. Patient educated on medication. Patient states he does not have access to SpO2 monitor for home use. Patient reports he does not have a PCP as his previous PCP retired and he has never been established with anyone else. Patient encouraged to call Dr. Cleary as listed on discharge instructions to schedule follow-up appointment. Voices understanding. Patient denies questions, needs or concerns. NIMCO Cintron CM
== END 2021-05-26 21:57 | disposition home or self-care (01) ==
PROVIDERS: Emergency Provider Emergency Medicine; Visit Provider Emergency Medicine
DX: J18.9 Pneumonia, unspecified organism (principal); Z87.891 Personal history of nicotine dependence
CPT/HCPCS: 71045; 80048; 83605; 84484; 85025; 87426; 93005; 99284; J7030; A4216

== ENCOUNTER → 2021-06-19 | Outpatient (CLI) | payer MEDICARE, OTHER, SELFPAY ==
[2019-09-22 09:28] VITALS: BMI 19.5
[2021-06-19 16:48] LABS: PSA,Total- Diagnostic 0.16 ng/mL (0.0-4.0)
== END | disposition home or self-care (01) ==
LOC: LAB 15:46
PROVIDERS: Visit Provider Internal Medicine Pulmonary Disease
DX: C61 Malignant neoplasm of prostate (principal)
CPT/HCPCS: 36415; 84153

== ENCOUNTER 2021-06-27 13:43 | Outpatient (CLI) | payer MEDICARE, OTHER, SELFPAY ==
[2019-09-22 09:28] VITALS: BMI 19.5
--- NOTE | 2021-06-27 13:50 | CT_ITS ---
STUDY: CT CHEST WITHOUT CONTRAST REASON FOR EXAM: Male, 85 years old. SOLITARY PULMONARY NODULE RADIATION DOSAGE (If Supplied By Facility): CTDIvol = ( 7.97 ) mGy, DLP = ( 312.88 ) mGycm TECHNIQUE: Transaxial imaging was performed without the administration of intravenous contrast material. Multiplanar coronal and sagittal images were reformatted. Individualized dose optimization techniques were used for this CT. COMPARISON: Comparison is made with prior study dated 02/13/2020. FINDINGS: Stable small benign-appearing bilateral axillary lymph nodes. Hyperinflation. Stable mild scarring at the lung apices slightly more prominent on the right side. There now is evidence of 2 noncalcified nodules in the posterior medial segment of the left lower lobe. One nodule measures 1.8 x 1.2 cm. A second irregular nodule is seen with anterior lucency measuring 2.3 cm x 2.3 cm. Increased markings in the posterior medial segment of the right lower lobe with evidence of a nodular appearance along its peripheral aspects. Correlation with the PET scan is recommended. There is no demonstrated pleural abnormality. There are calcifications of the coronary arteries. There are multiple small lymph nodes within the mediastinum, which are normal in size and morphology most compatible with reactive lymph hyperplasia. Normal hilar regions. Normal unenhanced pulmonary arteries. There is atherosclerotic calcification of the aortic arch with tortuosity and elongation of the aortic arch and descending thoracic aorta. There are multi-level degenerative changes of the thoracic spine. There is no demonstrated abnormality of the visualized upper abdomen. CT/Chest without Contrast IMPRESSION: 2 nodular densities are seen in the left lower lobe with the increased markings in the posterior medial segment of the right lower lobe with a nodular appearance along the pleural surface. Correlation with the PET scan is recommended for further evaluation. Electronically Signed: Andres Rojas MD at 14:44 EDT ,
== END 2021-06-27 23:59 | disposition home or self-care (01) ==
LOC: CT 13:45
PROVIDERS: Referring Provider Internal Medicine Pulmonary Disease; Visit Provider Internal Medicine Pulmonary Disease
DX: R91.1 Solitary pulmonary nodule (principal)
CPT/HCPCS: 71250

== ENCOUNTER → 2021-07-24 | Outpatient (CLI) | payer MEDICARE, OTHER, SELFPAY ==
[2019-09-22 09:28] VITALS: BMI 19.5
--- NOTE | 2021-07-24 12:00 | PET_ITS ---
STUDY: WHOLE-BODY PET/CT REASON FOR EXAM: Male, 85 years old. Prostate cancer, restaging RADIATION DOSAGE (If Supplied By Facility): CTDIvol = ( 5.57 ) mGy, DLP = ( 482.74 ) mGycm. Individualized dose optimization techniques were used for this CT.? TECHNIQUE: Whole body multiplanar PET study performed after administration of 12.5 mCi of F-18 FDG. COMPARISON: Previous studies from 10/04/2019, and 11/08/2018 FINDINGS: No suspicious increased PET activity is identified. There are some subtle areas of activity within the left chest wall and in both lower lung manzo but uptake levels measure no greater than 2.05. This suggests physiologic activity. Normal activity noted within the brain, salivary glands, heart, liver, spleen, GI and systems. There is however significant dilatation and intense activity within the right collecting system. On the CT scan there is evidence of a JJ stent within the right collecting system. Findings represent improvement compared to the previous study which showed abnormal PET activity in the left lower lung field. The noncontrasted CT scan shows no suspicious adenopathy in the brain parenchyma. No suspicious bulky adenopathy in the neck. There is a normal thyroid gland. The lung windows show underlying emphysema with chronic interstitial changes. There are noncalcified nodules in the left lung base and fibrotic scarring in the right lung base but there is no corresponding abnormal PET activity identified in these areas. There is no suspicious axillary, mediastinal, or perihilar adenopathy. Liver is unremarkable there are multiple gallstones present spleen and pancreas and left kidney are unremarkable there is as mentioned right-sided hydronephrosis and hydroureter with the presence of a right-sided JJ stent. No suspicious mesenteric or retroperitoneal adenopathy bony structures show extensive degenerative change with end-stage left hip arthrosis and subchondral changes suggesting AVN. There has been an old healed left femoral fracture. PET/PET/CT Tumor Base -Thigh Init IMPRESSION: Improvement since the previous study, there is no suspicious abnormal PET activity identified to suspect a metabolically active process. Electronically Signed: Pavel Kapadia MD at 10:53 EDT ,
== END | disposition home or self-care (01) ==
LOC: ONC 11:32
PROVIDERS: Referring Provider Internal Medicine Pulmonary Disease; Visit Provider Internal Medicine Pulmonary Disease
DX: C61 Malignant neoplasm of prostate (principal)
CPT/HCPCS: 78814; 78815; A9588

== ENCOUNTER 2021-08-26 10:31 | Emergency (ER) | payer MEDICARE, OTHER, SELFPAY ==
[2019-09-22 09:28] VITALS: BMI 19.5
[2021-08-26 10:32] VITALS: BP 123/86; PULSE 102; RESP 18; TEMP 37.2; O2SAT 95; BMI 19.3
--- NOTE | 2021-08-26 10:58 | RAD_ITS ---
STUDY: X-RAY CHEST REASON FOR EXAM: Male, 85 years old. cough TECHNIQUE: AP COMPARISON: 05/26/2021 FINDINGS: EKG leads project over the chest. Fibrotic scarring in the lung bases stable. No airspace consolidation. There is no demonstrated pleural abnormality. Normal size heart. Normal mediastinum and bryan. Normal visualized pulmonary arteries. There is atherosclerotic tortuosity of the aortic arch and descending thoracic aorta. No acute bony process. Left shoulder periarticular calcifications stable. There is no demonstrated abnormality of the visualized soft tissue structures of the upper abdomen. RAD/Chest 1 View (Portable) IMPRESSION: Stable, nonacute portable x-ray examination of the chest. Electronically Signed: Nicolás Esparza MD ([place]) at 14:09 EDT ,
--- NOTE | 2021-08-26 11:00 | EDS_ITS ---
HPI History of Present Illness Chief Complaint: Shortness of Breath Informant: patient and spouse/S.O. Onset/Context/Timing Onset: Days (5 days) Context: Gradual Onset Current Severity: Mild Maximum Severity: Moderate Narrative Narrative: Patient presents with shortness of breath, weakness, congestion, cough. Symptoms started 4 days ago. He has not take his temperature at home but did not believe he had a fever. He is coughing up altman-colored sputum. Denies chest pain. He has had nausea with dry heaves as well as diarrhea. No known exposure to COVID. He did have the COVID-vaccine and booster. [facility] Medical History Kidney failure Prostate cancer Home Medications azithromycin [Zithromax] 250 mg PO DAILY 4 Days #4 tab 08/26/21 [Rx Last Taken Unknown] Allergy/AdvReac Type Severity Reaction Status Date / Time No Known Allergies Allergy Verified 08/26/21 10:36 Surgical History H/O hernia repair History of renal stent Social History Smoking Status: Former smoker ROS ROS ED Constitutional Constitutional ED: Denies chills or fever(s) Eyes Eyes: Denies change in vision ENT ENT ED: Denies sore throat Cardiovascular Cardiovascular: Denies chest pain Respiratory/Chest Respiratory/Chest: Reports cough, dyspnea and sputum Gastrointestinal Gastrointestinal: Reports diarrhea and nausea; Denies abdominal pain Genitourinary Genitourinary ED: Denies dysuria Musculoskeletal Musculoskeletal: Denies back pain or neck pain Integumentary Denies rash Neurologic Neurologic: Reports weakness; Denies headache(s) Allergic/Immunologic Allergic/Immunologic ED: Denies urticaria EXAM Physical Exam Const Vital Signs: 08/26/21 10:32 08/26/21 11:20 08/26/21 11:22 Temperature 99 F 97.9 F Temperature Source Temporal Temporal Pulse Rate 102 H 96 Respiratory Rate 18 16 Respiratory Effort Normal Non-Labored Respiratory Depth Normal Respiratory Pattern Normal Blood Pressure 123/86 H 132/64 H Blood Pressure Mean 98 86 Pulse Ox 95 92 Oxygen Delivery Method Room Air Room Air Room Air 08/26/21 12:00 08/26/21 13:00 Temperature 98.1 F 98.2 F Temperature Source Temporal Temporal Pulse Rate 85 97 Respiratory Rate 19 H 26 H Respiratory Effort Respiratory Depth Respiratory Pattern Blood Pressure 116/60 123/78 H Blood Pressure Mean 78 93 Pulse Ox 92 93 Oxygen Delivery Method Room Air Room Air Positive well nourished and well developed General Appearance ED: well developed HEENT Reports moist mucous membranes Eyes PERRL and EOMs intact bilaterally Neck supple Chest Wall inspection of chest normal and palpation of chest normal Resp normal respiratory effort and clear to auscultation bilaterally Cardio regular rate GI non-tender Auscultation: hypoactive bowel sounds Palpation: soft Extremity normal to inspection Neuro oriented x3 Sensorium / Orientation: alert Psych mental status grossly normal Skin no rashes or lesions noted MDM MDM MDM Narrative Medical decision making narrative: Chest x-ray and lab work obtained. COVID and influenza swabs ordered. Lab Data Attestation: I reviewed the patient's lab results. Labs: Laboratory Results - last 24 hr 08/26/21 08/26/21 08/26/21 11:10 11:10 11:35 WBC 5.4 RBC 4.52 L Hgb 14.7 Hct 42.3 MCV 93.6 MCH 32.5 H MCHC 34.8 RDW Std Deviation 42.7 RDW Coeff of Michael 12.3 Plt Count 159 MPV 9.8 Immature Gran % (Auto) 1.300 H Neut % (Auto) 79.6 H Lymph % (Auto) 7.6 L [place] % (Auto) 10.7 H Eos % (Auto) 0.4 Baso % (Auto) 0.4 Absolute Neuts (auto) 4.3 Absolute Lymphs (auto) 0.41 L Nucleated RBC % 0 Sodium Cancelled 126 L Potassium Cancelled 4.0 Chloride Cancelled 93 L Carbon Dioxide Cancelled 28.0 Anion Gap Cancelled 5 BUN Cancelled 14 Creatinine Cancelled 0.83 Estim Creat Clear Calc Cancelled 56.36 Est GFR (MDRD) Af Amer Cancelled 112 Est GFR (MDRD) Non-Af Cancelled 93 BUN/Creatinine Ratio Cancelled 16.8 Glucose Cancelled 124 H Calcium Cancelled 8.5 Total Bilirubin Cancelled 0.70 Direct Bilirubin Cancelled 0.24 AST Cancelled 23 ALT Cancelled 23 Alkaline Phosphatase Cancelled 116 Total Protein Cancelled 6.9 Albumin Cancelled 2.7 L Globulin Cancelled 4.2 Rapid COVID: Negative Influenza: Negative Radiography Chest X-Ray - ED: 1 View, Read by ED Physician and Chronic Changes Diagnostic Testing: Clinical Impression(s) from Imaging Studies Chest X-Ray 08/26/21 10:58 IMPRESSION: Stable, nonacute portable x-ray examination of the chest. Electronically Signed: Nicolás Esparza MD ([place]) at 14:09 EDT , Treatment and Re-Evaluation Narrative: CBC is unremarkable. Chemistry studies significant for a sodium of 126. On review of prior records he has been low in the past as well but most recently was 134 in April. LFTs unremarkable. Chest x-ray reveals chronic changes on the right per my interpretation. Radiology feels x-ray is stable fr om prior. With patient having significant cough and sputum production with questionable COPD history I will cover him with Zithromax, first dose given here. He did receive a full liter of IV fluids to help with sodium replacement. We discussed drinking Gatorade or Powerade instead of plain water to help replenish his electrolytes. He is to follow-up within the next week or so for repeat labs. Discharge Plan Triage Chief Complaint: Shortness of Breath ED Provider: Emily Baltazar Dx/Rx/DC Orders Clinical Impression: Bronchitis, Hyponatremia Instructions: Acute Bronchitis, ED Hyponatremia Prescriptions: New azithromycin [Zithromax] 250 mg tablet 250 mg PO DAILY 4 Days Qty: 4 RF: 0 Primary Care Provider: Care Physician,No Primary Referrals: Care Physician,No Primary [Primary Care Provider] - Activity Restrictions/Additional Instructions: Follow-up with your doctor at [facility]. Disposition Disposition: Home, Self Care
[2021-08-26 11:15] LABS: Absolute Lymphocyte Count 0.41 X10^3/uL (0.83-4.51); Absolute Neutrophil Count 4.3 X10^3/uL (2.0-7.7); Basophil# 0.02 X10^3/uL; Basophil% 0.4 % (0-1); Eosinophil# 0.02 X10^3/uL; Eosinophils% 0.4 % (0-5); Hematocrit 42.3 % (40-54); Hemoglobin 14.7 g/dL (13.0-16.5); Lymphocyte # 0.41 X10^3/ul (0.83-4.51); Lymphocyte % 7.6 % (19-41); Mean Corp Hgb Conc 34.8 g/dL (32-36); Mean Corpuscular Hgb 32.5 pg (27.0-32.0); Mean Corpuscular Volume 93.6 fL (80-94); Mean Platelet Vol. 9.8 fl (6.2-12.0); Monocyte# 0.58 X10^3/uL; Monocyte% 10.7 % (0-10); NRBC Flagged by Analyzer 0 % (0-5); Neutrophil # 4.32 X10^3/uL (2.7-7.7); Neutrophil % 79.6 % (47-70); POSITIVE DIFFERENTIAL YES; Platelet Count 159 K/mm3 (150-450); RBC Distribution Width CV 12.3 % (11.6-14.6); RBC Distribution Width SD 42.7 fl (35.1-43.9); Red Blood Count 4.52 M/mm3 (4.6-6.2); White Blood Count 5.4 K/mm3 (4.4-11.0)
[2021-08-26] MEDS: Ondansetron 4 MG/2 ML Vial IV (11:17)
[2021-08-26] MEDS: 0.9% Normal Saline 1,000 ML 150 ML IV (11:17)
[2021-08-26 11:20] VITALS: BP 132/64; PULSE 94; PULSE 96; RESP 16; RESP 17; TEMP 36.6; O2SAT 92; O2SAT 95
[2021-08-26 11:22] VITALS: O2SAT 93
[2021-08-26 11:23] LABS: Differential Indicated SCAN CRITERIA MET
[2021-08-26 12:00] VITALS: BP 116/60; PULSE 85; RESP 19; TEMP 36.7; O2SAT 92
[2021-08-26 12:04] LABS: AST(SGOT) 23 U/L (15-37); Alanine Aminotransfer ALT/SGPT 23 U/L (16-61); Albumin, Serum 2.7 g/dL (3.2-5.0); Alkaline Phosphatase 116 U/L (45-117); Anion Gap 5 (5-15); BUN 14 mg/dL (7-18); BUN/Creat Ratio 16.8 RATIO (10-20); Bilirubin, Direct 0.24 mg/dL (0.00-0.30); Calcium,Total 8.5 mg/dL (8.5-10.1); Chloride 93 mmol/L (98-107); Creatinine, Serum 0.83 mg/dL (0.70-1.30); EST Glomerular Filtration Rate 93 mL/min (>60); Est Glom Filt Rate - Afr Amer 112 mL/min (>60); Estimated Creatinine Clearance 56.36 ml/min; Globulin 4.2 g/dL (2.2-4.2); Glucose 124 mg/dL (74-106); Protein, Total 6.9 g/dL (6.4-8.2); Sodium Level 126 mmol/L (136-145)
[2021-08-26 13:00] VITALS: BP 123/78; PULSE 86; PULSE 97; RESP 24; RESP 26; TEMP 36.8; O2SAT 93; O2SAT 94
[2021-08-26 14:52] VITALS: BP 120/71; PULSE 94; RESP 22; TEMP 36.6; O2SAT 92
[2021-08-26] MEDS: Azithromycin 250 MG Tablet 500 MG PO (14:58)
== END 2021-08-26 15:03 | disposition home or self-care (01) ==
PROVIDERS: Emergency Provider Emergency Medicine; Visit Provider Emergency Medicine
DX: J40 Bronchitis, not specified as acute or chronic (principal); E87.1 Hypo-osmolality and hyponatremia; Z87.891 Personal history of nicotine dependence
CPT/HCPCS: 71045; 80048; 80076; 85025; 87428; 96374; 99285; J7030; A4216; J2405

== ENCOUNTER 2021-09-05 01:14 | Inpatient (IN) | payer MEDICARE, OTHER, SELFPAY ==
[2019-09-22 09:28] VITALS: BMI 19.5
[2021-09-05] VITALS (11 sets, daily range): BP systolic 118–149; BP diastolic 57–89; PULSE 72–118; RESP 16–18; TEMP 36.2–36.9; O2SAT 93–98; BMI 19.9; BMI 19.3
--- NOTE | 2021-09-05 01:15 | RAD_ITS ---
STUDY: X-RAY CHEST REASON FOR EXAM: Male, 85 years old. Preop clearance TECHNIQUE: 1 view COMPARISON: 08/26/2021 FINDINGS: Cardiomediastinal silhouette is unremarkable. Costophrenic angles are sharp. Lungs are hyperinflated, compatible with steatosis. The trachea is midline. There is questionable right-sided pneumothorax in the lower hemithorax, approximately 10-20%. The bones are grossly intact. RAD/Chest 1 View (Portable) IMPRESSION: Questionable new right-sided pneumothorax in the lower hemithorax, approximately 10-20%. CT scan may be obtained to confirm. I discussed the findings by phone with Dr. THOMPSON at 11:50 PM PDT on 09/04/2021 N.B. : The above Results were Read Back by Hardy Champion MD to Dr. Butch MD, and understanding confirmed on 09/05/2021 02:50:59 (ET). Electronically Signed: Hardy Champion MD at 2:51 EDT ,
--- NOTE | 2021-09-05 01:15 | RAD_ITS ---
STUDY: X-RAY - PELVIS AND LEFT HIP REASON FOR EXAM: Male, 85 years old. Injury/Pain TECHNIQUE: 3 views of the pelvis and hip. COMPARISON: None. FINDINGS: Please see the impression. RAD/HIP, UNI W/ Pelvis 2-3 Views IMPRESSION: Acute nondisplaced intertrochanteric fracture of the left femur. Advanced degenerative changes of the left and moderate degenerative changes of the right hip joints. Lower lumbar spondylosis. Diffuse osteopenia. Right double-J ureteral stent in place. Electronically Signed: Hardy Champion MD at 2:56 EDT ,
--- NOTE | 2021-09-05 01:15 | EKG12_ITS ---
Test Reason : FALL Blood Pressure : / mmHG Vent. Rate : 068 BPM Atrial Rate : 068 BPM P-R Int : 148 ms QRS Dur : 080 ms QT Int : 394 ms P-R-T Axes : 074 063 064 degrees QTc Int : 418 ms Normal sinus rhythm Normal ECG Confirmed by SHA CRABTREE, MAVIS ([id number]), brands editor ALLISON ROSADO ([id number]) on 09/09/2021 10:11:18 AM Referred By: GABE Confirmed By:MAVIS DALTON MD
--- NOTE | 2021-09-05 01:17 | EX.ED.GENINJ ---
HPI History of Present Illness Chief Complaint: Fall Detail of Chief Complaint: Missed commode and fell onto left side Informant: patient Onset/Context/Timing Onset: Hours Mechanism/Context: Blunt Injury and Fall (Fall from sitting position) Location of pain/injuries: Left hip Current Severity: Mild Maximum Severity: Severe Worsened by: Movement Relieved by: Nothing Associated Symptoms Associated Symptoms: Positive for Loss of function and Inability to ambulate; Negative for Parasthesias, Weakness, Loss of consciousness and Amnesia Narrative Narrative: Patient is a 85-year-old male on no medicines with no allergies who presents by ambulance after missing the commode. He landed on his left side. He had severe pain. Upon presentation he his left lower extremity is shortened and externally rotated. He points to the inguinal area when asked where it hurts. He denies head trauma. He denies loss conscious or being amnestic. He denies ear pain or ringing his ears. Denies ocular, visual or auditory symptoms. He denies neck pain. He denies paresthesia, anesthesia or motor weakness. He denies cardiac or respiratory symptoms. He denies urologic symptoms. He is not on an anticoagulant. Tetanus Immunization: 5-10 years Prior similar symptoms: No Recent Illness/Hospitalization: No PFSH PFSH Medical History Kidney failure Prostate cancer Home Medications NK 09/05/21 [History Last Taken Unknown] Allergy/AdvReac Type Severity Reaction Status Date / Time No Known Allergies Allergy Verified 09/05/21 01:20 Surgical History H/O hernia repair History of renal stent Social History (Updated 09/05/21 @ 01:[address] Xavier Rae MD) household members: spouse Smoking Status: Former smoker alcohol intake: current alcohol intake frequency: holidays/special occasions only substance use type: does not use ROS ROS ED Constitutional Constitutional ED: Denies chills, fever(s) or sweats Eyes Eyes: Denies blurry vision or change in vision ENT ENT ED: Denies ear pain, rhinorrhea or sore throat Cardiovascular Cardiovascular: Denies chest pain or palpitations Respiratory/Chest Respiratory/Chest: Denies cough, dyspnea or dyspnea on exertion Gastrointestinal Gastrointestinal: Denies abdominal pain, diarrhea, melena, nausea or vomiting Genitourinary Genitourinary ED: Denies dysuria, hematuria or urinary frequency Musculoskeletal Musculoskeletal: Reports other Details: Left hip pain that patient localizes to the left inguinal area ; Denies arthralgias, back pain, myalgias or neck pain Integumentary Denies Abrasions or rash Neurologic Neurologic: Denies headache(s) or paresthesias Psychiatric Psychiatric: Denies depression Hematologic/Lymphatic Hematologic/Lymphatic: Denies easy bleeding, easy bruising or lymphadenopathy EXAM Physical Exam Const Vital Signs: 09/05/21 01:14 09/05/21 01:17 Temperature 97.2 F L Temperature Source Temporal Pulse Rate 72 Respiratory Rate 16 Respiratory Effort Normal Non-Labored Respiratory Depth Normal Respiratory Pattern Normal Blood Pressure 149/89 H Blood Pressure Mean 109 Pulse Ox 94 Oxygen Delivery Method Room Air Patient did receive fentanyl prior to arrival intranasal. Positive well nourished and well developed General Appearance ED: well developed and NAD HEENT Reports TM's clear HEENT Narrative: Uvula midline. Posterior pharynx is normal. atraumatic; Negative for tenderness Nose: Negative for septum abnormal Tympanic Membrane ED: Yes TM's clear Eyes PERRL and EOMs intact bilaterally General Eye ED: Yes other Other Details: Sclera is anicteric. Conjunctive is pink. Neck full ROM General: tenderness Resp normal respiratory effort and clear to auscultation bilaterally Cardio regular rhythm, S1 normal heart sound, S2 normal heart sound and no murmurs Rate: regular rate GI normal to inspection, nondistended, normoactive bowel sounds and non-tender Palpation: soft Back/Spine normal to inspection and no thoracic nor lumbar tenderness Extremity Negative for normal to inspection or full ROM Extremity Narrative: Left lower extremity is externally rotated and shortened. General Extremety ED: Yes deformity and tenderness General Extremity: deformity Neuro oriented x3, CN's II-XII intact bilaterally and moves all extremities Sensorium / Orientation: alert Psych mental status grossly normal and thought process normal Skin no rashes or lesions noted, no wounds and No no jaundice MDM MDM MDM Narrative Medical decision making narrative: Clinically patient has a hip fracture. X-ray was a obtained to determine if this is a femoral neck versus intertrochanteric. Appropriate blood work, EKG and chest x-ray were obtained for preoperative risk stratification. He was typed and screened. Patient states his pain is tolerable presently. Case was discussed with Dr. Holguin. Plan is operation later today. Patient's were made NPO. Hospitalist made aware. Lab Data Attestation: I reviewed the patient's lab results. Labs: Laboratory Results - last 24 hr 09/05/21 09/05/21 09/05/21 01:30 01:30 01:30 WBC 5.0 RBC 4.16 L Hgb 13.0 Hct 38.7 L MCV 93.0 MCH 31.3 MCHC 33.6 RDW Std Deviation 41.3 RDW Coeff of Michael 12.1 Plt Count 272 MPV 8.3 Immature Gran % (Auto) 3.600 H Neut % (Auto) 70.6 H Lymph % (Auto) 13.1 L [place] % (Auto) 9.1 Eos % (Auto) 2.8 Baso % (Auto) 0.8 Absolute Neuts (auto) 3.6 Absolute Lymphs (auto) 0.66 L Nucleated RBC % 0 PT 13.1 INR 1.0 APTT 26.0 Sodium 128 L Potassium 4.3 Chloride 93 L Carbon Dioxide 29.0 Anion Gap 6 BUN 10 Creatinine 0.97 Estim Creat Clear Calc 49.61 Est GFR (MDRD) Af Amer 94 Est GFR (MDRD) Non-Af 78 BUN/Creatinine Ratio 10.3 Glucose 106 Calcium 8.6 Total Bilirubin 0.50 AST 22 ALT 30 Alkaline Phosphatase 119 H Total Protein 6.8 Albumin 2.9 L Globulin 3.9 Albumin/Globulin Ratio 0.7 L Blood Type Antibody Screen 09/05/21 01:30 WBC RBC Hgb Hct MCV MCH MCHC RDW Std Deviation RDW Coeff of Michael Plt Count MPV Immature Gran % (Auto) Neut % (Auto) Lymph % (Auto) [place] % (Auto) Eos % (Auto) Baso % (Auto) Absolute Neuts (auto) Absolute Lymphs (auto) Nucleated RBC % PT INR APTT Sodium Potassium Chloride Carbon Dioxide Anion Gap BUN Creatinine Estim Creat Clear Calc Est GFR (MDRD) Af Amer Est GFR (MDRD) Non-Af BUN/Creatinine Ratio Glucose Calcium Total Bilirubin AST ALT Alkaline Phosphatase Total Protein Albumin Globulin Albumin/Globulin Ratio Blood Type O POSITIVE Antibody Screen NEGATIVE Radiography Diagnostic Testing: Single view chest x-ray interpreted by me at 0200 reveals chronic changes and unchanged from August 26, 2021. Cardiac silhouette and size normal. There is increased interstitial markings right lower lobe. Osseous structures are unremarkable. Three-view x-ray of the left hip reveals a intertrochanteric fracture. There is also significant arthritis of the hip joint. There is no evidence of dislocation. This was interpreted by me at 0200 as well. EKG Initial EKG: Attestation: I personally reviewed and interpreted this EKG as follows: Interpretation: Sinus Rhythm (Ventricular rate is 68. EKG is normal. HI intervals 148 ms. QS duration 80 ms. QT duration 394 ms. [place] is) Discharge Plan Triage Chief Complaint: Fall ED Provider: Xavier Rae Dx/Rx/DC Orders Clinical Impression: Closed intertrochanteric fracture of left femur Prescriptions: No Action NK RF: 0 Primary Care Provider: Care Physician,No Primary Referrals: Care Physician,No Primary [Primary Care Provider] - Disposition Disposition: Acute Care [facility]
[2021-09-05 01:40] LABS: Absolute Lymphocyte Count 0.66 X10^3/uL (0.83-4.51); Absolute Neutrophil Count 3.6 X10^3/uL (2.0-7.7); Basophil# 0.04 X10^3/uL; Basophil% 0.8 % (0-1); Eosinophil# 0.14 X10^3/uL; Eosinophils% 2.8 % (0-5); Hematocrit 38.7 % (40-54); Lymphocyte # 0.66 X10^3/ul (0.83-4.51); Lymphocyte % 13.1 % (19-41); Mean Corp Hgb Conc 33.6 g/dL (32-36); Mean Corpuscular Hgb 31.3 pg (27.0-32.0); Mean Platelet Vol. 8.3 fl (6.2-12.0); Monocyte# 0.46 X10^3/uL; Monocyte% 9.1 % (0-10); NRBC Flagged by Analyzer 0 % (0-5); Neutrophil # 3.56 X10^3/uL (2.7-7.7); Neutrophil % 70.6 % (47-70); Platelet Count 272 K/mm3 (150-450); RBC Distribution Width CV 12.1 % (11.6-14.6); RBC Distribution Width SD 41.3 fl (35.1-43.9); Red Blood Count 4.16 M/mm3 (4.6-6.2)
[2021-09-05 01:59] LABS: ALB/GLOB Ratio 0.7 RATIO (0.9-2.4); AST(SGOT) 22 U/L (15-37); Alanine Aminotransfer ALT/SGPT 30 U/L (16-61); Albumin, Serum 2.9 g/dL (3.2-5.0); Alkaline Phosphatase 119 U/L (45-117); Anion Gap 6 (5-15); BUN 10 mg/dL (7-18); BUN/Creat Ratio 10.3 RATIO (10-20); Calcium,Total 8.6 mg/dL (8.5-10.1); Chloride 93 mmol/L (98-107); Creatinine, Serum 0.97 mg/dL (0.70-1.30); EST Glomerular Filtration Rate 78 mL/min (>60); Est Glom Filt Rate - Afr Amer 94 mL/min (>60); Estimated Creatinine Clearance 49.61 ml/min; Globulin 3.9 g/dL (2.2-4.2); Glucose 106 mg/dL (74-106); Potassium 4.3 mmol/L (3.5-5.1); Protein, Total 6.8 g/dL (6.4-8.2); Sodium Level 128 mmol/L (136-145)
[2021-09-05 02:18] LABS: Prothrombin Time (Protime)PT. 13.1 SECONDS (11.7-14.9)
--- NOTE | 2021-09-05 02:50 | CT_ITS ---
INDICATION: Concern for localized pneumothorax right lower lung EXAMINATION: CT CHEST WITHOUT CONTRAST - CT Chest W/O Contrast Injection TECHNIQUE: Helically acquired images were obtained of the chest. A radiation dose optimization technique was used for this scan. IV Contrast dosage and agent: None. COMPARISON: September 05, 2021 chest x-ray CT abdomen and pelvis August 05, 2019, September 08, 2019 CT scan chest FINDINGS: LUNGS, PLEURA AND LARGE AIRWAYS: There is worsening focal patchy multifocal opacities within the right lower lobe. There is no visualized pneumothorax. There are peripheral patchy nodular densities with peribronchial inflammatory change. There is a blunted and narrowed appearance of the distal right lower lobe bronchial structures which may indicate aspiration. In the left lower lobe there is a focus of nodular density measuring 2.0 x 1.2 cm stable since prior study September 08, 2019. There are a few scattered emphysematous blebs. THYROID: No thyroid lesions. HEART AND PERICARDIUM: The heart is within normal limits of size. There are coronary calcifications. No pericardial effusion. CORONARY ARTERIES: Coronary artery calcification is seen. VESSELS: There is atherosclerotic disease of the aorta. MEDIASTINUM AND LOIDA: There is a precarinal lymph node measuring 1.9 x 1.1 cm. Esophagus is unremarkable. There is a minimal hiatal hernia. UPPER ABDOMEN: There is a stable visualized right side double J stent. There is a stable visualized left side peripelvic cyst measuring 2.1 x 1.5 cm. There is a stable visualized punctate stone in the left kidney. BONES: There is multilevel degenerative change within the thoracolumbar spine. There is chronic appearing loss of height at the level of T11, T12, L1 and to a lesser degree L2. The visualized stones in the gallbladder. The visualized atherosclerotic disease of the abdominal aorta. CT/Chest without Contrast IMPRESSION: Endobronchial opacification of the right lower lobe bronchial structures and associated inflammatory change patchy appearing peripheral consolidation suspicious for pneumonia possible aspiration pneumonia. There is a visualized nodular density on the in the left lower lobe similar to the prior study which may represent chronic inflammatory change associated with peribronchial thickening and possible mucous plugging and/or aspiration. No visualized pneumothorax. Coronary calcification. Partially visualized stable left renal cyst, right-sided double-J stent. Multilevel degenerative change and loss of height in the thoracolumbar junction stable since prior study September 08, 2019. Electronically Signed: Melissa Corona MD at 4:19 EDT ,
--- NOTE | 2021-09-05 03:08 | PCM.HP.STD ---
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 Reportedly patient went to the toilet in the dark. He missed sitting on the commode and fell. Following the fall he reports pain in his left hip. Imaging the emergency department showed left hip intertrochanteric fracture. [facility] Medical History Former smoker Kidney failure Prostate cancer Home Medications NK 09/05/21 [History Last Taken Unknown] Allergy/AdvReac Type Severity Reaction Status Date / Time No Known Allergies Allergy Verified 09/05/21 01:20 Family History Other Heart disease Surgical History H/O hernia repair History of renal stent Social History household members: spouse Smoking Status: Former smoker alcohol intake: current alcohol intake frequency: holidays/special occasions only substance use type: does not use ROS ROS Narrative Pertinent positives and pertinent negatives as noted in HPI. All other systems were reviewed and are negative. Vital Signs Vital Signs Vital Signs: 09/05/21 01:14 09/05/21 01:17 09/05/21 02:59 Temperature 97.2 F L 98 F Temperature Source Temporal Temporal Pulse Rate 72 82 Respiratory Rate 16 17 Respiratory Effort Normal Non-Labored Respiratory Depth Normal Respiratory Pattern Normal Blood Pressure 149/89 H 122/73 H Blood Pressure Mean 109 89 Pulse Ox 94 94 Oxygen Delivery Method Room Air Room Air Weight Weight: 63 kg Body Mass Index (BMI) 19.9 Physical Exam Narrative Physical exam: General: Well-nourished, well-developed. Head: Normocephalic, atraumatic, no tenderness Eyes: Vision is grossly intact. EOMI ENT, no trauma, moist mucous membranes, no rhinorrhea Neck: Nontender, full range of motion. CVS: Regular rate and rhythm. S1-S2 present. No murmur, gallop or rub. Respiratory : Left base with mild rales. Chest wall nontender, no wheezing Abdomen: Soft, nontender, nondistended, normal bowel sounds, no masses : Deferred Back: Nontender, no CVA tenderness, no midline spinal tenderness, deformities, step-offs Extremities: Nontender bilateral lower legs. No visible trauma. Skin: Normal color, no trauma, abrasions Neuro: Alert, oriented, cranial nerves II through XII grossly intact. Psychiatry: Normal mood. Normal affect. Not depressed. Not anxious. Results Lab / Micro Data Result Diagrams: 09/05/21 01:30 09/05/21 01:30 Labs: Laboratory Results - last 24 hr 09/05/21 01:30: WBC 5.0, RBC 4.16 L, Hgb 13.0, Hct 38.7 L, MCV 93.0, MCH 31.3, MCHC 33.6, RDW Std Deviation 41.3, RDW Coeff of Michael 12.1, Plt Count 272, MPV 8.3, Immature Gran % (Auto) 3.600 H, Neut % (Auto) 70.6 H, Lymph % (Auto) 13.1 L, [place] % (Auto) 9.1, Eos % (Auto) 2.8, Baso % (Auto) 0.8, Absolute Neuts (auto) 3.6, Absolute Lymphs (auto) 0.66 L, Nucleated RBC % 0 09/05/21 01:30: PT 13.1, INR 1.0, APTT 26.0 09/05/21 01:30: Sodium 128 L, Potassium 4.3, Chloride 93 L, Carbon Dioxide 29.0, Anion Gap 6, BUN 10, Creatinine 0.97, Estim Creat Clear Calc 49.61, Est GFR (MDRD) Af Amer 94, Est GFR (MDRD) Non-Af 78, BUN/Creatinine Ratio 10.3, Glucose 106, Calcium 8.6, Total Bilirubin 0.50, AST 22, ALT 30, Alkaline Phosphatase 119 H, Total Protein 6.8, Albumin 2.9 L, Globulin 3.9, Albumin/Globulin Ratio 0.7 L 09/05/21 01:30: Blood Type O POSITIVE, Antibody Screen NEGATIVE Radiology Impression Chest X-Ray 09/05/21 01:15 IMPRESSION: Questionable new right-sided pneumothorax in the lower hemithorax, approximately 10-20%. CT scan may be obtained to confirm. I discussed the findings by phone with Dr. THOMPSON at 11:50 PM PDT on 09/04/2021 N.B. : The above Results were Read Back by Hardy Champion MD to Dr. Butch MD, and understanding confirmed on 09/05/2021 02:50:59 (ET). Electronically Signed: Hardy Champion MD at 2:51 EDT Reading Location ID and State: [facility] / [place] Tel , Service support , ADDENDUM: 09/05/21 0258 IMPRESSION: Questionable new right-sided pneumothorax in the lower hemithorax, approximately 10-20%. CT scan may be obtained to confirm. I discussed the findings by phone with Dr. THOMPSON at 11:50 PM PDT on 09/04/2021 N.B. : The above Results were Read Back by Hardy Champion MD to Dr. Butch MD, and understanding confirmed on 09/05/2021 02:50:59 (ET). Electronically Signed: Hardy Champion MD at 2:51 EDT , Hip/Pelvis X-Ray 09/05/21 01:15 IMPRESSION: Acute nondisplaced intertrochanteric fracture of the left femur. Advanced degenerative changes of the left and moderate degenerative changes of the right hip joints. Lower lumbar spondylosis. Diffuse osteopenia. Right double-J ureteral stent in place. Electronically Signed: Hardy Champion MD at 2:56 EDT , Assessment & Plan Assessment/Plan (1) Intertrochanteric fracture: PLAN: Closed intertrochanteric left hip fracture. Hip/pelvis x-ray showed left intertrochanteric hip fracture. Hip/pelvis x-ray was visualized and independent interpreted and I agree radiology interpretation. Chest x-ray was interpreted by radiologist as questionable new right pneumothorax in the lower hemithorax at 10 to 20%. A CT scan was recommended. CT scan was done at the emergency department. CT scan independently interpreted showed no pneumothorax. Follow-up official radiologist interpretation. Emergent department doctor discussed the case with Dr. Holguin. Inpatient consult for orthopedic surgery. Morphine IV and oxycodone as needed ordered. Tylenol as needed ordered. Bowel protocol and antiemetics IV ordered. Keep n.p.o. While n.p.o. lactated Ringer's ordered. Check vitamin D level. Preoperative EKG unremarkable ACS NSQIP surgical risk calculator with below surgical risk for cardiopulmonary complications. PT and OT consult. Orthopedic consult. CBC showed normal white counts but with chronic bandemia which is worse than before. Trend CBC. Acute on chronic hyponatremia Sodium of 128 on presentation. Asymptomatic. Review of record showed chronic hyponatremia. Lactated Ringer's ordered. Trend BMP. CKD stage II Stable Trend BMP. History of prostate cancer with metastatic lung lesions PET scan on 07/24/2021 was reviewed. PET scan showed no metabolic active process. Stable. DVT prophylaxis SCDs ordered Charges/Coding Visit Charges Inpatient E&M: 67120 Init Hosp L3
--- NOTE | 2021-09-05 03:55 | NURSING ---
patient states he has had 3 covid vaccines but unsure of the dates. to bring card today.
[2021-09-05] MEDS: oxyCODONE 5 MG Tablet PO ×2 (03:58→12:16)
[2021-09-05] MEDS: Lactated Ringers 1,000 ML 60 ML IV ×2 (03:58→23:44)
[2021-09-05] MEDS: 0.9% Saline Lock 10 ML Syringe IV ×2 (03:59→09:01)
[2021-09-05] MEDS: Menthol/Lanolin/Calamine/Znox 113 GM Tube 1 APPLIC TOPICAL ×2 (06:33→14:08)
--- NOTE | 2021-09-05 06:38 | RAD_ITS ---
INDICATION: ORIF, HIP, GAMMA NAIL EXAMINATION/TECHNIQUE: X-RAY - LEFT XR Hip Unilateral with Pelvis when performed; 1 View 7 VIEWS COMPARISON: 09/05/2021. FINDINGS: Redemonstration of right femoral neck fracture. Intraoperative fluoroscopic images demonstrate intramedullary jd and dynamic hip screw placement with distal fixation screws. Please refer to the operative report for additional findings. RAD/Hip 1 view with Pelvis IMPRESSION: Intraoperative surgical images as detailed above. Please refer to the operative report for additional findings. Electronically Signed: Terrance Rojas MD at 23:49 EDT ,
--- NOTE | 2021-09-05 06:56 | CONS.ORTHO ---
HPI Consult Data Date of Consult: 09/05/21 HPI Narrative HPI Narrative: ELIESER VILLEGAS, is a 85 M who presentsTo [facility] emergency department after a mechanical fall while using the toilet. He states he was pinned between the toilet and his bathtub at his home where he resides with his . He states he was stuck there for approximately 40 minutes until his daughter found him. Patient was subsequently brought to [facility] emergency department via squad. X-rays revealed a left intertrochanteric proximal femur fracture. I was consulted from the emergency department. Patient was admitted under the service of the hospitalist. At time of examination, patient reported pain in his left hip but denied associated injury. Reported some antecedent left hip pain but states he has never sought treatment and states he is a community ambulator without assistive device. He states he occasion has taken Tylenol but does not report that pain limits his day-to-day function with regards to his left hip. Of note, patient has metastatic prostate cancer with several lesions found in his lungs. He is status post chemoradiation. Denies any trouble urinating. Denies fevers, chills, nausea or vomiting, chest pain or shortness of breath. [facility] Medical History Former smoker Kidney failure Prostate cancer Home Medications NK 09/05/21 [History Last Taken Unknown] Allergy/AdvReac Type Severity Reaction Status Date / Time No Known Allergies Allergy Verified 09/05/21 01:20 Family History Other Heart disease Surgical History H/O hernia repair History of renal stent Social History household members: spouse Smoking Status: Former smoker alcohol intake: current alcohol intake frequency: holidays/special occasions only substance use type: does not use ROS ROS Narrative 12 point review of systems, negative unless otherwise noted in HPI. Vital Signs Vital Signs Vital Signs: 09/05/21 01:14 09/05/21 01:17 09/05/21 02:59 Temperature 97.2 F L 98 F Temperature Source Temporal Temporal Pulse Rate 72 82 Respiratory Rate 16 17 Respiratory Effort Normal Non-Labored Respiratory Depth Normal Respiratory Pattern Normal Blood Pressure 149/89 H 122/73 H Blood Pressure Mean 109 89 Blood Pressure Source Blood Pressure Position Blood Pressure Location Pulse Ox 94 94 Oxygen Delivery Method Room Air Room Air 09/05/21 03:33 09/05/21 03:47 Temperature 98.1 F Temperature Source Oral Pulse Rate 85 Respiratory Rate 18 Respiratory Effort Normal Non-Labored Respiratory Depth Respiratory Pattern Blood Pressure 136/73 H Blood Pressure Mean 94 Blood Pressure Source Monitor Blood Pressure Position Semi-Fowlers Blood Pressure Location Left Arm Pulse Ox 96 Oxygen Delivery Method Room Air Room Air Weight Weight: 134 lb 11.239 oz Body Mass Index (BMI) 19.3 Physical Exam Narrative General -A&Ox3, NAD, appears stated age. Vital signs stable, afebrile. Respiratory -normal work of breathing, no intercostal retractions. CV -pulses regular, brisk capillary refill ?4 limbs. Abdomen-soft, nontender, nondistended. No guarding, rigidity, rebound tenderness. Musculoskeletal/neurologic -full range of motion nontender throughout bilateral upper extremities, right lower extremity with full sensation and strength in all dermatomes and myotomes. No midline cervical tenderness. Left lower extremity-no obvious deformity. Pain with logroll of the left lower extremity. Nontender throughout the left knee femoral shaft, tibial shaft and left foot/ankle. Brisk capillary refill. Sensation intact light touch L3-S1 dermatomes. DF, PF, EHL intact. DP, PT 2+. Pelvis is stable, nontender. Skin is intact without lacerations, abrasions. No ecchymosis noted. Lab / Micro Data Result Diagrams: 09/05/21 01:30 09/05/21 01:30 Labs: Laboratory Results - last 24 hr 09/05/21 01:30: WBC 5.0, RBC 4.16 L, Hgb 13.0, Hct 38.7 L, MCV 93.0, MCH 31.3, MCHC 33.6, RDW Std Deviation 41.3, RDW Coeff of Michael 12.1, Plt Count 272, MPV 8.3, Immature Gran % (Auto) 3.600 H, Neut % (Auto) 70.6 H, Lymph % (Auto) 13.1 L, [place] % (Auto) 9.1, Eos % (Auto) 2.8, Baso % (Auto) 0.8, Absolute Neuts (auto) 3.6, Absolute Lymphs (auto) 0.66 L, Nucleated RBC % 0 09/05/21 01:30: PT 13.1, INR 1.0, APTT 26.0 09/05/21 01:30: Sodium 128 L, Potassium 4.3, Chloride 93 L, Carbon Dioxide 29.0, Anion Gap 6, BUN 10, Creatinine 0.97, Estim Creat Clear Calc 49.61, Est GFR (MDRD) Af Amer 94, Est GFR (MDRD) Non-Af 78, BUN/Creatinine Ratio 10.3, Glucose 106, Calcium 8.6, Total Bilirubin 0.50, AST 22, ALT 30, Alkaline Phosphatase 119 H, Total Protein 6.8, Albumin 2.9 L, Globulin 3.9, Albumin/Globulin Ratio 0.7 L 09/05/21 01:30: Blood Type O POSITIVE, Antibody Screen NEGATIVE Radiology Impression Chest X-Ray 09/05/21 01:15 IMPRESSION: Questionable new right-sided pneumothorax in the lower hemithorax, approximately 10-20%. CT scan may be obtained to confirm. I discussed the findings by phone with Dr. THOMPSON at 11:50 PM PDT on 09/04/2021 N.B. : The above Results were Read Back by Hardy Champion MD to Dr. Butch MD, and understanding confirmed on 09/05/2021 02:50:59 (ET). Electronically Signed: Hardy Champion MD at 2:51 EDT , ADDENDUM: 09/05/21 0258 IMPRESSION: Questionable new right-sided pneumothorax in the lower hemithorax, approximately 10-20%. CT scan may be obtained to confirm. I discussed the findings by phone with Dr. THOMPSON at 11:50 PM PDT on 09/04/2021 N.B. : The above Results were Read Back by Hardy Champion MD to Dr. Butch MD, and understanding confirmed on 09/05/2021 02:50:59 (ET). Electronically Signed: Hardy Champion MD at 2:51 EDT , Hip/Pelvis X-Ray 09/05/21 01:15 IMPRESSION: Acute nondisplaced intertrochanteric fracture of the left femur. Advanced degenerative changes of the left and moderate degenerative changes of the right hip joints. Lower lumbar spondylosis. Diffuse osteopenia. Right double-J ureteral stent in place. Electronically Signed: Hardy Champion MD at 2:56 EDT , Chest CT 09/05/21 02:50 IMPRESSION: Endobronchial opacification of the right lower lobe bronchial structures and associated inflammatory change patchy appearing peripheral consolidation suspicious for pneumonia possible aspiration pneumonia. There is a visualized nodular density on the in the left lower lobe similar to the prior study which may represent chronic inflammatory change associated with peribronchial thickening and possible mucous plugging and/or aspiration. No visualized pneumothorax. Coronary calcification. Partially visualized stable left renal cyst, right-sided double-J stent. Multilevel degenerative change and loss of height in the thoracolumbar junction stable since prior study September 08, 2019. Electronically Signed: Melissa Corona MD at 4:19 EDT , Assessment & Plan Assessment/Plan (1) Intertrochanteric fracture: QUALIFIERS: Encounter type: initial encounter Fracture type: closed Fracture alignment: nondisplaced Laterality: left Qualified Code(s): S72.145A - Nondisplaced intertrochanteric fracture of left femur, initial encounter for closed fracture PLAN: Patient sustained a left intertrochanteric proximal femur fracture. -Closed, neurovascularly intact -Isolated injury -Recommending surgical intervention in the form of left femur cephalomedullary nailing -I discussed the procedure-its risks, benefits and alternatives. Risks include but are not limited to bleeding, infection, loss of life or limb, risk of anesthesia, persistent pain or disability, need for additional surgery, nonunion, malunion, failure of orthopedic hardware, neurovascular injury, DVT or PE. Patient expressed understanding these risks and wished proceed with surgery. We discussed total hip arthroplasty given his severe left hip osteoarthritis. I explained the risks of the surgery including the need for revision hardware, extensive dissection, increased blood loss and morbidity. His insight regarding life expectancy given his metastatic prostate cancer led to a shared decision to proceed with fracture fixation in the form of hip nailing to mitigate some of the above risks. He expressed understanding that his hip arthritis would remain and his antecedent hip or groin pain would remain as well. He was content with this decision. -Maintenance IV fluids, clear liquid diet after midnight n.p.o. at 2 hours prior to surgery -Type and screen -2 g Ancef on-call to the OR -Bedrest, heel protectors -Plan to proceed with surgery later today when OR becomes available Thank you for this consultation.
--- NOTE | 2021-09-05 07:38 | RAD_ITS ---
STUDY: X-RAY - LEFT FEMUR REASON FOR STUDY: Male, 85 years old. Fall TECHNIQUE: 4 view(s) of the femur. COMPARISON: None. FINDINGS: Nondisplaced left intertrochanteric fracture. Marked degree of osteoarthritis of the hip joint with subchondral geodes. This is suggestive of avascular necrosis. A right-sided double-J stent catheter is seen. Metallic prosthetic seeds are present. RAD/Femur Min 2 Views IMPRESSION: Nondisplaced intra-articular fracture of the left proximal femur. Electronically Signed: Anrdes Rojas MD at 9:10 EDT ,
[2021-09-05] MEDS: Acetaminophen 500 MG Tablet 1000 MG PO ×2 (07:41→14:07)
[2021-09-05 08:15] LABS: ALB/GLOB Ratio 0.6 RATIO (0.9-2.4); AST(SGOT) 25 U/L (15-37); Alanine Aminotransfer ALT/SGPT 28 U/L (16-61); Albumin, Serum 2.4 g/dL (3.2-5.0); Alkaline Phosphatase 113 U/L (45-117); Anion Gap 6 (5-15); BUN 10 mg/dL (7-18); BUN/Creat Ratio 13.4 RATIO (10-20); Calcium,Total 8.1 mg/dL (8.5-10.1); Chloride 95 mmol/L (98-107); Creatinine, Serum 0.75 mg/dL (0.70-1.30); EST Glomerular Filtration Rate 105 mL/min (>60); Est Glom Filt Rate - Afr Amer 127 mL/min (>60); Estimated Creatinine Clearance 46.67 ml/min; Glucose 96 mg/dL (74-106); Potassium 4.2 mmol/L (3.5-5.1); Protein, Total 6.4 g/dL (6.4-8.2); Sodium Level 123 mmol/L (136-145)
[2021-09-05 08:31] LABS: Vitamin D,25 Hydroxy 35.4 ng/mL
--- NOTE | 2021-09-05 13:59 | PCM.HOSP.N ---
Hospitalist Note 85-year-old white male presents emergency department early this morning after suffering a mechanical fall. He evidently got up in the middle the night to go to the bathroom and he missed sitting on the toilet and fell. Upon falling he suffered from left hip pain and imaging in the emergency department showed a left intertrochanteric fracture of the femur. He has a history of metastatic prostate cancer and has had chemo and radiation for this. He is on no chronic medications. Dr. Holguin evaluated the patient and has taken him to the OR on 09/05/2021 for a cephalomedullary nail placement. He lives with his and states he has 2 daughters that live within 5 minutes. He would ideally like to go home however I really think he is going to have to be evaluated postoperatively by physical and Occupational Therapy to see really what his needs are. I did discuss with him that he may need placement at discharge versus home health care.
--- NOTE | 2021-09-05 15:37 | CASEMGMT ---
Social Work Consult: senior care consult Referral source: Dr. Pacheco (Hospitalist) Met with patient and patient spouse in room. Introduced self and social services manager role. Patient agreeable to meet with this social services manager. Main support person and sales assistants and salespersons for patient is patient spouse, Mulu. This social services manager broached conversation of long-term placement for patient in the event that patient is not able to return to home after surgery. Patient to have surgery today. Patient is not open to long-term placement. Patient was open to this social services manager providing patient with list of correction homes that are local to patient geographical region. Current plan will be for social work to follow up with patient after patient has surgery and has been seen my therapy. Patient agreeable with plan. Will continue to follow. Richard CALDERON, VESNA
--- NOTE | 2021-09-05 20:10 | NURSING ---
Patient was taken to surgery about 1929.
[2021-09-05] MEDS: Cefazolin 2 GM in 0.9% Normal Saline 100 ML IV (21:37)
--- NOTE | 2021-09-05 23:09 | OP.PCM_ITS ---
Report of Operation Date of Procedure: 09/05/21 Description of Surgical Findings:: Preoperative diagnosis: Left int ertrochanteric proximal femur fracture Postoperative diagnosis: Left intertrochanteric proximal femur fracture Procedure: Treatment of intertrochanteric hip fracture with intramedullary nail left femur Surgeon: Hitesh Holguin DO Anesthesia: General endotracheal Anesthesiologist: Dr. Moreira Complications: None Drains: None Estimated blood loss: 100 cc Urinary output: None recorded IV fluids: Per anesthesia record Specimens: None Surgical implants: [place] Gamma3 Cephalomedullary Nail 125 degree 113 mm x 400 mm left, 10.5 mm x 110 mm lag screw, Interlocking screws size 5 mm x 45 mm, 5 mm x 47.5 mm Surgical indications: This is an 85 male who presents presented to [facility] emergency department after a mechanical fall last evening. Patient lives at home with his . He had gone to the bathroom late at night. He attended/tolerate too soon and missed the commode. He was stuck between the commode and the bathtub for approximately 45 minutes until his daughter found him. He was brought to [facility] emergency department where x- rays in the emergency department revealed a left intertrochanteric proximal femur fracture. Orthopedics was consulted for surgical recommendations.I recommended cephalomedullary nail fixation of his left intertrochanteric proximal femur fracture. He was admitted and preoperatively optimized by the hospitalist service. I discussed the procedure with the patient. The risks, benefits, alternatives to procedure reviewed with the patient. The risks of the surgery included bleeding, infection, loss of life or limb, malunion, nonunion, damage to vital structures, neurovascular injury, failure of orthopedic hardware, need for additional surgery, persistent pain or disability, risk of anesthesia. The patient expressed understanding of these risks and agreed to proceed with surgery. Blood consent was also obtained. Description of procedure: Patient was seen in preoperative holding area. He was identified by name, medical record number, date of . The operative extremity was marked with a surgical marker. We confirmed informed consent with the patient and questions were answered to his satisfaction. Patient was brought to the operative suite, and general anesthesia was induced on his hospital bed. Endotracheal tube was secured. After adequate anesthesia, patient was transferred to a fracture table with all bony prominences being well-padded. A perineal post was placed to secure the patient on the table. We then applied a ski boot which was well-padded to the operative extremity. The well leg was dropped into extension and secured to the axial post of the fracture table with a pillow and [place]. The left arm was brought across patient's chest with a blanket on her chest. We then performed a closed reduction maneuver with external rotation, traction, internal rotation and adduction. Fluoroscopic images were obtained. Fracture appeared to be acceptably reduced following closed reduction. We then prepped and draped the left lower extremity in normal, sterile orthopedic fashion. A timeout was performed with all parties in attendance in agreement with the side, site, and operation be performed. 2 g Ancef was administered prior to incision. No concerns were voiced and we elected to proceed. I first used fluoroscopy to flavia the level of the fracture and planned incision for insertion of the cephalomedullary nail device. In line with the long axis of the femur, 4 fingerbreadths proximal to the tip of the greater trochanter, a full-thickness skin incision was planned.. Skin was sharply incised with 10 blade scalpel, carried into the subcutaneous tissues. The IT band was encountered and split in planned trajectory of the nail placement. The greater trochanter was then able to be palpated digitally. I then placed a threaded guidewire just medial to the tip of the greater trochanter and in the anterior third of it on the lateral. Opening reamer was then placed over top of the guidewire after placement was confirmed on C arm. A ball-tipped guidewire then was passed into the intramedullary canal after reamer was removed. We used C arm to confirm our placement within the bone. We then sequentially reamed to a final diameter of 14.5 mm using flexible reamers. Reduction was again confirmed. Depth gauge was used to measure the length of the ball-tipped guidewire from the superior pole of patella to be 400 mm. Reamers were removed. Nail was assembled on the back table. We placed it over the ball-tipped guidewire and impacted to an appropriate depth. Rotation was confirmed on the lateral. Drill sleeve was placed through the targeting guide. Lateral incision was made for the drill pin. Extending excision to place a bone hook around the femoral neck to apply a lateral force to better reduce the fracture. We drilled the pin for the lag screw at an appropriate position and depth, tip to apex distance less than 25 mm on AP and lateral combined. Depth gauge was used to measure the length of the screw, 110 mm. We then used the cannulated drill to drill to an appropriate depth. Drill was removed, drill pin left in place. Lag screw was placed over top of the drill pin and tightened to an appropriate depth. Setscrew was then placed and tightened, and then turned back a quarter turn to allow the lag screw to slide. We then turned our attention distally to insert 2 interlocking screws via perfect stebbins technique. C-arm was brought in perpendicular to the limb to obtain perfect stebbins images. Stab incisions were made along the lateral distal aspect of the femur. I drilled bicortically ensuring passage through the interlocking slots of the nail. Depth gauge was used to measure length of interlocking screws. Interlocking screws were then placed with excellent cortical purchase. Appropriate positioning and size were confirmed on orthogonal fluoroscopy. Instruments were removed as well as the outrigger for the nail. Final fluoroscopic images were obtained at the hip, which demonstrated a stable construct with appropriate alignment. I then irrigated the wounds copiously with normal saline solution. Hemostasis was excellent at this point. I then closed the deeper layers, IT band with 0 Vicryl. Intradermal buried stitches of 2-0 Vicryl were utilized and skin finally reapproximated with skin migue. Sterile compression dressing of Xeroform, 4 x 4's, and Tegaderm was applied. Patient tolerated procedure well without complication. He was transferred back to his hospital bed and subsequently to PACU in stable condition. Intraoperative medications: 2 g Ancef IV Post Operative Plan: Weightbearing: Weightbearing as tolerated left lower extremity with a walker Antibiotics: Ancef 2 g x 3 doses postoperatively, 1 dose given preoperatively DVT Prophylaxis: Aspirin 81 mg twice daily to start tomorrow morning Vargas: None Dressing: Dry sterile dressing changes daily and as needed for saturation X-Rays: 2 weeks postop in the office Follow-up: 2 weeks post-operatively with me in the office
[2021-09-06] VITALS (8 sets, daily range): BP systolic 82–136; BP diastolic 47–73; PULSE 77–112; RESP 16–20; TEMP 36.7–37.1; O2SAT 91–98
[2021-09-06] MEDS: Cefazolin 2 GM in 0.9% Normal Saline 100 ML IV ×3 (05:00→19:58)
[2021-09-06] MEDS: Lactated Ringers 1,000 ML 60 ML IV ×2 (05:00→19:59)
[2021-09-06] MEDS: Acetaminophen 500 MG Tablet 1000 MG PO ×3 (05:04→21:53)
[2021-09-06] MEDS: Menthol/Lanolin/Calamine/Znox 113 GM Tube 1 APPLIC TOPICAL (05:04)
[2021-09-06 05:50] LABS: Absolute Lymphocyte Count 0.35 X10^3/uL (0.83-4.51); Absolute Neutrophil Count 10.5 X10^3/uL (2.0-7.7); Basophil# 0.02 X10^3/uL; Basophil% 0.2 % (0-1); Eosinophil# 0.01 X10^3/uL; Eosinophils% 0.1 % (0-5); Hematocrit 32.3 % (40-54); Hemoglobin 11.1 g/dL (13.0-16.5); Lymphocyte # 0.35 X10^3/ul (0.83-4.51); Mean Corp Hgb Conc 34.4 g/dL (32-36); Mean Corpuscular Hgb 31.9 pg (27.0-32.0); Mean Corpuscular Volume 92.8 fL (80-94); Mean Platelet Vol. 8.6 fl (6.2-12.0); Monocyte# 0.59 X10^3/uL; Monocyte% 5.1 % (0-10); NRBC Flagged by Analyzer 0 % (0-5); Neutrophil # 10.53 X10^3/uL (2.7-7.7); Neutrophil % 90.8 % (47-70); POSITIVE DIFFERENTIAL YES; Platelet Count 231 K/mm3 (150-450); RBC Distribution Width CV 12.2 % (11.6-14.6); RBC Distribution Width SD 41.7 fl (35.1-43.9); Red Blood Count 3.48 M/mm3 (4.6-6.2); White Blood Count 11.6 K/mm3 (4.4-11.0)
[2021-09-06 05:56] LABS: Differential Indicated SCAN CRITERIA MET
[2021-09-06 06:12] LABS: Anion Gap 6 (5-15); BUN 12 mg/dL (7-18); BUN/Creat Ratio 11.9 RATIO (10-20); Calcium,Total 8.1 mg/dL (8.5-10.1); Chloride 95 mmol/L (98-107); Creatinine, Serum 1.01 mg/dL (0.70-1.30); EST Glomerular Filtration Rate 75 mL/min (>60); Est Glom Filt Rate - Afr Amer 90 mL/min (>60); Estimated Creatinine Clearance 46.21 ml/min; Glucose 122 mg/dL (74-106); Sodium Level 128 mmol/L (136-145)
[2021-09-06 06:33] LABS: Differential Comment SCANNED
--- NOTE | 2021-09-06 07:37 | PCM.PN.HOSP ---
Subjective Subjective Follow-up for left intertrochanteric fracture. Objective Data Objective Data Vital Signs: Vital Signs Temp Pulse Resp BP Pulse Ox 98.0 F 102 H 18 115/60 97 09/06/21 04:42 09/06/21 04:42 09/06/21 04:42 09/06/21 04:42 09/06/21 04:42 Oxygen Flow Rate (L/min) 2 Oxygen Delivery Method Nasal Cannula Weight: 134 lb 11.239 oz Body Mass Index (BMI) 19.3 Intake & Output: Intake and Output for Last 24 Hours 09/04/21 09/05/21 09/06/21 23:59 23:59 23:59 Intake Total 1000 / 1000 536 / 536 Output Total 975 / 975 200 / 200 Balance 336 / 336 Lab / Micro Data Result Diagrams: 09/06/21 05:05 09/06/21 05:05 Labs: Laboratory Results - last 24 hr 09/05/21 07:25: Vitamin D 25-Hydroxy 35.4 09/05/21 07:30: Sodium 123 L, Potassium 4.2, Chloride 95 L, Carbon Dioxide 22.0, Anion Gap 6, BUN 10, Creatinine 0.75, Estim Creat Clear Calc 46.67, Est GFR (MDRD) Af Amer 127, Est GFR (MDRD) Non-Af 105, BUN/Creatinine Ratio 13.4, Glucose 96, Calcium 8.1 L, Total Bilirubin 0.70, AST 25, ALT 28, Alkaline Phosphatase 113, Total Protein 6.4, Albumin 2.4 L, Globulin 4.0, Albumin/Globulin Ratio 0.6 L 09/06/21 05:05: WBC 11.6 H, RBC 3.48 L, Hgb 11.1 L, Hct 32.3 L, MCV 92.8, MCH 31.9, MCHC 34.4, RDW Std Deviation 41.7, RDW Coeff of Michael 12.2, Plt Count 231, MPV 8.6, Immature Gran % (Auto) 0.800, Neut % (Auto) 90.8 H, Lymph % (Auto) 3.0 L, [place] % (Auto) 5.1, Eos % (Auto) 0.1, Baso % (Auto) 0.2, Absolute Neuts (auto) 10.5 H, Absolute Lymphs (auto) 0.35 L, Nucleated RBC % 0, Differential Comment SCANNED 09/06/21 05:05: Sodium 128 L, Potassium 4.0, Chloride 95 L, Carbon Dioxide 27.0, Anion Gap 6, BUN 12, Creatinine 1.01, Estim Creat Clear Calc 46.21, Est GFR (MDRD) Af Amer 90, Est GFR (MDRD) Non-Af 75, BUN/Creatinine Ratio 11.9, Glucose 122 H, Calcium 8.1 L Radiography Diagnostic Testing: Radiology Impression Hip/Pelvis X-Ray 09/05/21 06:38 IMPRESSION: Intraoperative surgical images as detailed above. Please refer to the operative report for additional findings. Femur X-Ray 09/05/21 07:38 IMPRESSION: Nondisplaced intra-articular fracture of the left proximal femur. Physical Exam Narrative Seen and examined. Patient denies any pain over left hip joint. Patient walked up and had physical therapy in the morning. No chest pain or shortness of breath. No fever. Physical exam General: Alert, Oriented x3, Cooperative HEENT: Atraumatic, PERRLA, EOMI, Normocephalic Oral: No Gingival or Mucosal Lesions/ Ulcerations Neck: Supple, No JVD, Negative Carotid Bruits Lungs: Air entry diminished in bilateral lung bases. No crepitation/rhonchi Cardiovascular: Regular rate, Regular Rhythm, Normal S1, Normal S2, No murmurs Abdomen: Bowel Sounds Present, Soft, Non Tender, Non-Distended : No renal angle tenderness. No suprapubic tenderness. Extremities: No edema, Capillary Refill Less than 3 Seconds Skin: No rashes, No breakdown Musculoskeletal: Surgical dressing dry over left hip. No tenderness or hematoma. No tenderness around surgical area. Neurological: Cranial nerves II-XII grossly intact, DTR 2+/4 and Symmetrical, Neuro grossly intact Psych/Mental Status: Normal Affect, Appropriate. Assessment & Plan Assessment/Plan (1) Intertrochanteric fracture: QUALIFIERS: Encounter type: initial encounter Fracture alignment: nondisplaced Fracture type: closed Laterality: left Qualified Code(s): S72.145A - Nondisplaced intertrochanteric fracture of left femur, initial encounter for closed fracture PLAN: Closed intertrochanteric left hip fracture, most likely pathological as he fell from standing height: Patient is being admitted to [facility]. Patient had intramedullary nail left femur under [place]. PT and OT. Discussed with home health care case manager. Plan for discharge to acute rehab tomorrow. Bowel and bladder care. Vitamin D is 35.4. On vitamin D 5 cm daily. Preop EKG unremarkable. ACS NSQIP surgical risk showed acceptable/moderate perioperative cardiac. 2. Abnormal chest CT finding: Chest CT scan ruled out pneumothorax. It shows worsening right lower lobe patchy multifocal opacity, peribronchial inflammatory change with nodular densities. Nodular density in left lower lobe 2 x 1.2 cm stable since prior study September 08, 2019. CBC showed normal white counts but with chronic bandemia which is worse than before. Trend CBC. Acute on chronic hyponatremia Sodium of 128 on presentation. Asymptomatic. Review of record showed chronic hyponatremia. Sodium still 128 on IV fluid replacement CKD stage II Creatinine normal range Trend BMP. History of prostate cancer with metastatic lung lesions PET scan on 07/24/2021 was reviewed. PET scan showed no metabolic active process. Stable. DVT prophylaxis SCDs ordered Charges/Coding Visit Charges Inpatient E&M: 72778 Subs Hosp L2
--- NOTE | 2021-09-06 07:51 | PCM.PN.ORT ---
Subjective Subjective Patient seen and examined. He denies significant pain at this time. Has not been out of bed. Denies fevers, chills, nausea vomiting, chest pain or shortness of breath. Understanding that he will likely require custodial facility placement. Objective Data Objective Data Vital Signs: Vital Signs Temp Pulse Resp BP Pulse Ox 98.5 F 90 16 98/52 L 98 09/06/21 07:46 09/06/21 07:46 09/06/21 07:46 09/06/21 07:46 09/06/21 07:46 Oxygen Flow Rate (L/min) 2 Oxygen Delivery Method Nasal Cannula Weight: 134 lb 11.239 oz Body Mass Index (BMI) 19.3 Intake & Output: Intake and Output for Last 24 Hours 09/04/21 09/05/21 09/06/21 23:59 23:59 23:59 Intake Total 1000 / 1000 536 / 536 Output Total 975 / 975 200 / 200 Balance 25 / 336 / 336 Lab / Micro Data Result Diagrams: 09/06/21 05:05 09/06/21 05:05 Labs: Laboratory Results - last 24 hr 09/05/21 07:25: Vitamin D 25-Hydroxy 35.4 09/05/21 07:30: Sodium 123 L, Potassium 4.2, Chloride 95 L, Carbon Dioxide 22.0, Anion Gap 6, BUN 10, Creatinine 0.75, Estim Creat Clear Calc 46.67, Est GFR (MDRD) Af Amer 127, Est GFR (MDRD) Non-Af 105, BUN/Creatinine Ratio 13.4, Glucose 96, Calcium 8.1 L, Total Bilirubin 0.70, AST 25, ALT 28, Alkaline Phosphatase 113, Total Protein 6.4, Albumin 2.4 L, Globulin 4.0, Albumin/Globulin Ratio 0.6 L 09/06/21 05:05: WBC 11.6 H, RBC 3.48 L, Hgb 11.1 L, Hct 32.3 L, MCV 92.8, MCH 31.9, MCHC 34.4, RDW Std Deviation 41.7, RDW Coeff of Michael 12.2, Plt Count 231, MPV 8.6, Immature Gran % (Auto) 0.800, Neut % (Auto) 90.8 H, Lymph % (Auto) 3.0 L, [place] % (Auto) 5.1, Eos % (Auto) 0.1, Baso % (Auto) 0.2, Absolute Neuts (auto) 10.5 H, Absolute Lymphs (auto) 0.35 L, Nucleated RBC % 0, Differential Comment SCANNED 09/06/21 05:05: Sodium 128 L, Potassium 4.0, Chloride 95 L, Carbon Dioxide 27.0, Anion Gap 6, BUN 12, Creatinine 1.01, Estim Creat Clear Calc 46.21, Est GFR (MDRD) Af Amer 90, Est GFR (MDRD) Non-Af 75, BUN/Creatinine Ratio 11.9, Glucose 122 H, Calcium 8.1 L Radiography Diagnostic Testing: Radiology Impression Hip/Pelvis X-Ray 09/05/21 06:38 IMPRESSION: Intraoperative surgical images as detailed above. Please refer to the operative report for additional findings. Electronically Signed: Terrance Rojas MD at 23:49 EDT , Femur X-Ray 09/05/21 07:38 IMPRESSION: Nondisplaced intra-articular fracture of the left proximal femur. Electronically Signed: Andres Rojas MD at 9:10 EDT , Physical Exam Narrative General - A&Ox3, NAD. VSS/AF Left lower extremity -central incision shows saturated serosanguineous drainage, otherwise incisional dressings C/D/I. SILT Sural, Saphenous, SPN, DPN, Tibial N. distributions. DP, PT 2+. BCR. DF, PF, EHL 5/5. No calf TTP. Assessment & Plan Assessment/Plan (1) Closed intertrochanteric fracture of left femur: PLAN: POD#1 s/p left femur CMN - Pain control - Medicine following for medical management - PT/OT-weightbearing as tolerated left lower extremity - DVT PPX -SCDs, TORIN hose, early mobilization, aspirin 81 mg twice daily -Dry sterile dressing changes daily - Case management - D/C planning. Likely requiring placement -Patient doing well from an orthopedic standpoint. We will mobilize him with therapy. Follow-up in 2 weeks with me in the office for x-rays and staple removal. I will sign off at this time. Please not hesitate to call if any questions or concerns arise. Discharge instructions placed in the chart.
[2021-09-06] MEDS: Calcium Carbonate 500 MG Tablet PO ×3 (08:02→15:44)
--- NOTE | 2021-09-06 10:18 | CASEMGMT ---
Addendum entered by Danna Harris 09/06/21 14:35: Green sheet placed on chart in anticipation of weekend discharge. VESNA De Paz Original Note: Social Work SW spoke w/pt this morning about rehab options, provided a list with quality and resource use data in pt's preferred geographic area for rehab facilities. Pt initially not agreeable to rehab, SW explained would speak to him again after therapy. SW spoke w/PT, they are recommending rehab. SW spoke w/pt again, he is now agreeable to rehab at [facility] for a short stay. SW called rehab, referral made and pt accepted. They can take pt when ready. It is anticipated he will be able to go tomorrow. VESNA De Paz
[2021-09-06] MEDS: Cholecalciferol (Vit D3) 125 MCG CAPSULE (5,000 UNITS) PO (15:43)
[2021-09-07] VITALS: BP 112/62; PULSE 89; RESP 16; TEMP 36.6; O2SAT 92
[2021-09-07 06:00] VITALS: BP 106/68; PULSE 98; RESP 18; TEMP 36.4; O2SAT 96
[2021-09-07] MEDS: Acetaminophen 500 MG Tablet 1000 MG PO (06:19)
--- NOTE | 2021-09-07 07:20 | PCM.DC ---
Discharge Instructions Diet Discharge Diet: No restrictions Activity Discharge Activity: May Not Drive Dressing / Incision Call your doctor if you observe: Fever of 101 or Higher, Coldness, Increased Pain, Numbness or Tingling, Change in Color, Inability to urinate, Inability to have a bowel movement, Shortness of breath, Dizziness, Fainting spells, Swelling in the ankles, Chest pain, Prolonged hiccupping, Increased palpitations (irregular heartbeat), Calf discomfort and Uncontrolled pain Follow Up Care Test Results: Test results from this visit will be discussed in further detail at your follow-up appointment, if applicable. Discharge Plan Admission Admit Date/Time: 09/05/21 02:40 Primary Reason for Your Visit: acute left hip fracture Attending Provider: Sung Sharma Primary Care Provider: Care Physician,No Primary Consulting Providers: Gamaliel Herring ; Hitesh Holguin ; Shira Pacheco Instructions Additional Instructions / Restrictions: Weightbearing as tolerated left lower extremity with a walker. Dry sterile dressing changes daily left hip. Okay to shower on postoperative day #5 if no drainage. No tub soaks. Discharge Orders/Prescriptions Prescriptions: New calcium carbonate 200 mg calcium (500 mg) Tablet,Chewable 500 mg PO TIDCM Qty: 0 RF: 0 acetaminophen 500 mg Tablet 1,000 mg PO Q8 Qty: 0 RF: 0 sennosides-docusate sodium [Stool Softener-Stimulant Laxat] 8.6-50 mg Tablet 2 tab PO BID PRN PRN (Reason: Constipation) Qty: 0 RF: 0 oxycodone 5 mg Tablet 5 mg PO Q4H PRN PRN (Reason: Pain Score 4-5) Qty: 0 RF: 0 cholecalciferol (vitamin D3) 125 mcg (5,000 unit) Capsule 125 mcg PO DAILY Qty: 0 RF: 0 Eliquis 2.5 mg Tablet 2.5 mg PO BID Qty: 60 RF: 0 ascorbic acid (vitamin C) 500 mg Tablet 500 mg PO BIDCM Qty: 0 RF: 0 ferrous sulfate [FeroSul] 325 mg (65 mg iron) Tablet 325 mg PO QODAY Qty: 0 RF: 0 Referrals / Follow Up: Hitesh Holguin DO [STAFF PHYSICIAN] - 09/23/21 Care Physician,No Primary [Primary Care Provider] - Within 2 Weeks Disposition Disposition (needs filled in before D/C Order can be placed): Inpatient Rehab Unit/Facility
[2021-09-07 07:25] VITALS: BP 114/61; PULSE 92; RESP 18; TEMP 36.9; O2SAT 100
[2021-09-07 09:09] LABS: Absolute Neutrophil Count 6.2 X10^3/uL (2.0-7.7); Basophil# 0.01 X10^3/uL; Basophil% 0.1 % (0-1); Eosinophils% 1.4 % (0-5); Hematocrit 24.9 % (40-54); Hemoglobin 8.4 g/dL (13.0-16.5); Lymphocyte % 5.5 % (19-41); Mean Corp Hgb Conc 33.7 g/dL (32-36); Mean Corpuscular Hgb 31.6 pg (27.0-32.0); Mean Corpuscular Volume 93.6 fL (80-94); Mean Platelet Vol. 9.1 fl (6.2-12.0); Monocyte# 0.39 X10^3/uL; Monocyte% 5.4 % (0-10); NRBC Flagged by Analyzer 0 % (0-5); Neutrophil # 6.23 X10^3/uL (2.7-7.7); Neutrophil % 86.5 % (47-70); POSITIVE DIFFERENTIAL YES; Platelet Count 160 K/mm3 (150-450); RBC Distribution Width CV 12.3 % (11.6-14.6); RBC Distribution Width SD 41.5 fl (35.1-43.9); Red Blood Count 2.66 M/mm3 (4.6-6.2); White Blood Count 7.2 K/mm3 (4.4-11.0)
[2021-09-07 09:10] LABS: Differential Indicated SCAN CRITERIA MET
[2021-09-07] MEDS: Cholecalciferol (Vit D3) 125 MCG CAPSULE (5,000 UNITS) PO (09:20)
[2021-09-07] MEDS: Calcium Carbonate 500 MG Tablet PO ×2 (09:20→12:22)
[2021-09-07 09:24] LABS: Anion Gap 5 (5-15); BUN 14 mg/dL (7-18); BUN/Creat Ratio 16.7 RATIO (10-20); Calcium,Total 7.8 mg/dL (8.5-10.1); Chloride 95 mmol/L (98-107); Creatinine, Serum 0.84 mg/dL (0.70-1.30); EST Glomerular Filtration Rate 92 mL/min (>60); Est Glom Filt Rate - Afr Amer 112 mL/min (>60); Estimated Creatinine Clearance 55.56 ml/min; Glucose 165 mg/dL (74-106); Potassium 4.2 mmol/L (3.5-5.1); Sodium Level 127 mmol/L (136-145)
[2021-09-07 09:35] LABS: Platelet Estimate ADEQUATE (ADEQ); Red Cell Morphology NORM C+C NORMAL (NORM C&C)
--- NOTE | 2021-09-07 10:20 | PCM.DC.SUM ---
Providers Date of Admission: 09/05/21 Date of Discharge: 09/07/21 Primary Care Physician: Traci Primary Care Phys Consultations 09/05/21 05:56 Consult: Orthopedics Routine Consulting Provider: Hitesh Holguin Reason for Consult: left intertrochanteric fracture EMERGENT Consult: No MD Notified: Yes Date Notified: 09/05/21 Time Notified: 02:00 Method of Notification: ED Physician Initiated Reason For Visit: LEFT INTERTROCHANTERIC FRACTURE Diagnosis Discharge Diagnosis (1) Intertrochanteric fracture: Status: Acute Code(s): S72.143A - Displaced intertrochanteric fracture of unspecified femur, initial encounter for closed fracture Qualifiers: Encounter type: initial encounter Fracture alignment: nondisplaced Fracture type: closed Laterality: left Qualified Code(s): S72.145A - Nondisplaced intertrochanteric fracture of left femur, initial encounter for closed fracture Medications at Discharge Home Medications acetaminophen 1,000 mg PO Q8 #0 tab 09/07/21 apixaban [Eliquis] 2.5 mg PO BID #60 tab 09/07/21 ascorbic acid (vitamin C) 500 mg PO BIDCM #0 tab 09/07/21 calcium carbonate 500 mg PO TIDCM #0 tab 09/07/21 cholecalciferol (vitamin D3) 125 mcg PO DAILY #0 cap 09/07/21 ferrous sulfate [FeroSul] 325 mg PO QODAY #0 tab 09/07/21 oxycodone 5 mg PO Q4H PRN PRN #0 tab 09/07/21 sennosides-docusate sodium [Stool Softener-Stimulant Laxat] 2 tab PO BID PRN PRN #0 tab 09/07/21 Hospital Course Summary of Care Provided Hospital Course: This is an 85-year-old gentleman with 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 He fell on his left leg. In the ED, he was found to have left hip fracture on imaging 1. Acute, closed, nondisplaced intertrochanteric left hip fracture, most likely pathological as he fell from standing height: [facility]. Patient had intramedullary nail left femur under GA. PT and OT. Discussed with disease case manager rn. Plan for discharge to acute rehab tomorrow. Bowel and bladder care. Vitamin D is 35.4. On vitamin D 5 cm daily. Preop EKG unremarkable. ACS NSQIP surgical risk showed acceptable/moderate perioperative cardiac. 2. Acute blood loss anemia secondary to surgery/procedure: Hemoglobin dropped from 11.1-8.4. No need for blood transfusion. MCV normal. Patient is discharged on ferrous sulfate and vitamin C. 3.. Abnormal chest CT finding: Chest CT scan ruled out pneumothorax. It shows worsening right lower lobe patchy multifocal opacity, peribronchial inflammatory change with nodular densities. Nodular density in left lower lobe 2 x 1.2 cm stable since prior study September 08, 2019. CBC showed normal white counts but with chronic bandemia which is worse than before. Trend CBC. 4. Acute on chronic hyponatremia Sodium of 128 on presentation. Asymptomatic. Review of record showed chronic hyponatremia. Sodium still 128 on IV fluid replacement Sodium is still 127. 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 History of prostate cancer with metastatic lung lesions PET scan on 07/24/2021 was reviewed. PET scan showed no metabolic active process. Stable. DVT prophylaxis SCDs ordered. Eliquis 2.5 mg p.o. twice daily for 35 days. Discharge medication reconciliation done. Discharge follow-up instructions completed. Discharge process discussed with the patient and all questions were answered to patient's satisfaction. Total time spent, exact 35 minutes on discharge meds reconciliation, examination, coordination of care with nurses and ancillary staff, review of imaging and blood test and discussion with the patient on follow-up instructions. Physical Exam Narrative Seen and examined. No pain or fever. Had BM on 09/05. Patient had little bit physical therapy yesterday Physical exam General: Alert, Oriented x3, Cooperative HEENT: Atraumatic, PERRLA, EOMI, Normocephalic Oral: No Gingival or Mucosal Lesions/ Ulcerations Neck: Supple, No JVD, Negative Carotid Bruits Lungs: Air entry diminished in bilateral lung bases. No crepitation/rhonchi Cardiovascular: Regular rate, Regular Rhythm, Normal S1, Normal S2, No murmurs Abdomen: Bowel Sounds Present, Soft, Non Tender, Non-Distended : Spontaneous voiding, clear urine. No renal angle tenderness. No suprapubic tenderness. Extremities: No edema, Capillary Refill Less than 3 Seconds Skin: No rashes, No breakdown Musculoskeletal: Surgical dressing dry over left hip. No tenderness or hematoma. No tenderness around surgical area. Neurological: Cranial nerves II-XII grossly intact, DTR 2+/4 and Symmetrical, Neuro grossly intact Psych/Mental Status: Normal Affect, Appropriate. Weight / BMI Weight Weight: 134 lb 11.239 oz Body Mass Index (BMI) 19.3 ABG / Lab / Microbiology Data Result Diagrams: 09/07/21 08:50 09/07/21 08:50 D/C Instructions Discharge Diet: No restrictions Call your doctor if you observe: Fever of 101 or Higher, Coldness, Increased Pain, Numbness or Tingling, Change in Color, Inability to urinate, Inability to have a bowel movement, Shortness of breath, Dizziness, Fainting spells, Swelling in the ankles, Chest pain, Prolonged hiccupping, Increased palpitations (irregular heartbeat), Calf discomfort and Uncontrolled pain Meaningful Use Info Meaningful Use Diagnoses (Choose all that apply): None applicable Discharge Plan Admission Admit Date/Time: 09/05/21 02:40 Primary Reason for Your Visit: acute left hip fracture Attending Provider: Sung Shrama Primary Care Provider: Care Physician,No Primary Consulting Providers: Gamaliel Herring ; Hitesh Holguin ; Shira Pacheco Instructions Additional Instructions / Restrictions: Weightbearing as tolerated left lower extremity with a walker. Dry sterile dressing changes daily left hip. Okay to shower on postoperative day #5 if no drainage. No tub soaks. Discharge Orders/Prescriptions Prescriptions: New calcium carbonate 200 mg calcium (500 mg) Tablet,Chewable 500 mg PO TIDCM Qty: 0 RF: 0 acetaminophen 500 mg Tablet 1,000 mg PO Q8 Qty: 0 RF: 0 sennosides-docusate sodium [Stool Softener-Stimulant Laxat] 8.6-50 mg Tablet 2 tab PO BID PRN PRN (Reason: Constipation) Qty: 0 RF: 0 oxycodone 5 mg Tablet 5 mg PO Q4H PRN PRN (Reason: Pain Score 4-5) Qty: 0 RF: 0 cholecalciferol (vitamin D3) 125 mcg (5,000 unit) Capsule 125 mcg PO DAILY Qty: 0 RF: 0 Eliquis 2.5 mg Tablet 2.5 mg PO BID Qty: 60 RF: 0 ascorbic acid (vitamin C) 500 mg Tablet 500 mg PO BIDCM Qty: 0 RF: 0 ferrous sulfate [FeroSul] 325 mg (65 mg iron) Tablet 325 mg PO QODAY Qty: 0 RF: 0 Referrals / Follow Up: Hitesh Holguin DO [STAFF PHYSICIAN] - 09/23/21 Care Physician,No Primary [Primary Care Provider] - Within 2 Weeks Disposition Disposition (needs filled in before D/C Order can be placed): Inpatient Rehab Unit/Facility Charges/Coding Visit Charges Inpatient E&M: 18317 Disch Hosp
[2021-09-07] MEDS: Ferrous Sulfate 325 MG Tablet PO (12:22)
== END 2021-09-07 13:47 | DRG 481 ==
LOC: ED 02:41 → MS3 03:04
PROVIDERS: Student in an Organized Health Care Education/Training Program; Admitting Provider Hospitalist; Emergency Provider Emergency Medicine; Visit Provider Internal Medicine
PROC: 0QS736Z Reposition Left Upper Femur with Intramedullary Internal Fixation Device, Percutaneous Approach (ICD-10-PCS; CPT 27245; principal; 2021-09-05 14:30)
DX: S72.145A Nondisplaced intertrochanteric fracture of left femur, initial encounter for closed fracture (principal); E22.2 Syndrome of inappropriate secretion of antidiuretic hormone; D72.825 Bandemia; N18.2 Chronic kidney disease, stage 2 (mild); W18.11XA Fall from or off toilet without subsequent striking against object, initial encounter; R91.8 Other nonspecific abnormal finding of lung field; Z87.891 Personal history of nicotine dependence; Z92.3 Personal history of irradiation; Y93.9 Activity, unspecified; Y92.9 Unspecified place or not applicable; Z85.46 Personal history of malignant neoplasm of prostate; Z85.118 Personal history of other malignant neoplasm of bronchus and lung
CPT/HCPCS: 36415; 71045; 71250; 73501; 73502; 73552; 76000; 80048; 80053; 82306; 85025; 85610; 85730; 86850; 86900; 86901; 93005; 97162; 97165; 99251; 99285; C1776; J7120; A4216; G0463

== ENCOUNTER 2021-09-07 14:15 | Inpatient (IN) | payer MEDICARE, OTHER, SELFPAY ==
[2019-09-22 09:28] VITALS: BMI 19.5
[2021-09-07 14:31] VITALS: BP 111/56; PULSE 104; RESP 18; TEMP 36.9; O2SAT 90; BMI 19.3
[2021-09-07] MEDS: Calcium Carbonate 500 MG Tablet PO (16:47)
[2021-09-07] MEDS: Ascorbic Acid 500 MG Tablet PO (16:48)
--- NOTE | 2021-09-07 18:19 | HP.PCM_ITS ---
HPI - General General Date of Admission: 09/07/21 HPI Narrative ELIESER VILLEGAS, is a 85 YO M with a PMH of Tobacco dependence in remission, history of prostate CA (with lung mets), hyponatremia and early kidney failure who presented to the ED at [facility] on 09/05/21 complaining of L hip pain after a fall. Imaging in the ED showed a non-displaced L hip intertrochanteric Fx and diffuse osteopenia. He was admitted to the hospital and Dr. Holguin was consulted. He recommended a cephalomedullary nailing and he Elieser was taken to surgery on 09/05/[address] Holguin. Post operatively he was evaluated by PT/OT and admission to acute inpt rehab. He has DJD of the hips but, was ambulatory with out an AD prior to the fall. There is no BMD in the EMR going back to 2014. Elieser was transferred to the inpt rehab unit on 09/07/21 for 3 hours of therapy daily to restore function/independence at or near his prior level. He lives with his in a first floor dwelling. He has 3 steps to enter his home and there are HR's. All lab from today was personally reviewed. Reason for the hyponatremia is unclear. He has been told this is the past but, some have told him to drink less water and some have told him to drink Gatorade and salt his food. He does not have a PCP....he used to see Dr. Hakeem Frakn before he retired. PET scan was negative on 07/25/21. He had radiation to a nodule in the R lung in the past and he follows with Dr. Guerrero for this. Has never used an inhaler. Has a lot of mucous in the AM with a cough.....then he is good for the rest of the day. Wt is stable. He tells me that his pain is controlled adequately. He does not sleep well because he gets up frequently at night to urinate. Has never been on any medication for this. [facility] Medical History (Updated 09/09/21 @ 09:[address] Karla Gauthier DO) Cholelithiasis Chronic bronchitis Former smoker Hydronephrosis Kidney failure Prostate cancer Home Medications acetaminophen 1,000 mg PO Q8 09/07/21 [History Last Taken Unknown] apixaban [Eliquis] 2.5 mg PO BID 09/07/21 [History Last Taken Unknown] ascorbic acid (vitamin C) 500 mg PO BIDCM 09/07/21 [History Last Taken Unknown] calcium carbonate 500 mg PO TIDCM 09/07/21 [History Last Taken Unknown] cholecalciferol (vitamin D3) 125 mcg PO DAILY 09/07/21 [History Last Taken Unknown] ferrous sulfate [FeroSul] 325 mg PO QODAY 09/07/21 [History Last Taken Unknown] oxycodone 5 mg PO Q4H PRN PRN 09/07/21 [History Last Taken Unknown] sennosides-docusate sodium [Stool Softener-Stimulant Laxat] 2 tab PO BID 09/07/21 [History Last Taken Unknown] Allergy/AdvReac Type Severity Reaction Status Date / Time No Known Allergies Allergy Verified 09/05/21 01:20 Family History Other Heart disease Surgical History (Updated 09/09/21 @ 09:[address] Karla Gauthier DO) H/O hernia repair History of renal stent History of transurethral resection of prostate Status post appendectomy Social History (Updated 09/07/21 @ 19:[address] Karla Gauthier DO) household members: spouse and other details: 2 st0ry house. He sleeps downstairs in a recliner. 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 Tobacco: How many years used: 67 how long ago did patient quit smoking: He quit in 2019 alcohol intake: current alcohol intake frequency: holidays/special occasions only substance use type: does not use ROS Constitutional Constitutional: Reports fatigue; Denies anorexia, change in weight, chills, fever(s), night sweats or weakness Eyes Eyes: Denies blurry vision, change in vision, eye pain or loss of vision ENT HEENT: Reports hearing loss; Denies dysphagia, headache(s), nasal congestion or sore throat Cardiovascular Cardiovascular: Reports dyspnea on exertion and edema; Denies chest pain, lightheadedness, orthopnea, palpitations, paroxysmal nocturnal dyspnea or syncope Respiratory/Chest Respiratory/Chest: Reports cough; Denies change in phlegm color, chest tightness, dyspnea, hoarseness, portable oxygen @ home, shortness of breath at rest, shortness of breath with exertion or wheezing Gastrointestinal Gastrointestinal: Denies abdominal pain, constipation, diarrhea, dyspepsia, hematemesis, hematochezia, nausea or vomiting Genitourinary Genitourinary: Reports other Details: He is having difficulty urinating when lying in bed ; Denies dysuria, hematuria, nocturia, urinary frequency, urinary hesitancy, urinary incontinence or urinary urgency Musculoskeletal Musculoskeletal: Reports joint pain and joint stiffness; Denies back pain, joint swelling or neck pain Neurologic Neurologic: Denies confusion, disequilibrium, dizziness, focal weakness, headache(s), paresthesias, seizures or tremor(s) Psychiatric Psychiatric: Denies anxiety, depression, homicidal ideation or suicidal ideation Endocrine Endocrinology: Denies change in body appearance, polydipsia or polyuria Hematologic/Lymphatic Hematologic/Lymphatic: Denies easy bleeding, easy bruising or lymphadenopathy Allergic/Immunologic Allergic/Immunologic: Denies rhinitis, eczemia or asthma Vital Signs Vital Signs Vital Signs: 09/07/21 14:31 Temperature 98.4 F Temperature Source Temporal Pulse Rate 104 H Respiratory Rate 18 Blood Pressure 111/56 L Blood Pressure Mean 74 Blood Pressure Source Monitor Blood Pressure Position Semi-Fowlers Blood Pressure Location Right Arm Pulse Ox 90 Oxygen Delivery Method Room Air Weight Weight: 134 lb 11.239 oz Body Mass Index (BMI) 19.3 Physical Exam Const alert, oriented x3 and no apparent distress Constitutional Narrative: Making good eye contact, appropriate, pleasant. General Appearance: cooperative and comfortable HEENT head/scalp atraumatic HEENT Narrative: Dry MM Head and Scalp: normocephalic Face and Sinus: face symmetric External Ear: other Other Details: Mildly [place] Eyes EOMs intact bilaterally, conjunctivae normal and no scleral icterus General Eye: normal appearance of both eyes Neck no lymphadenopathy, supple, no JVD and no carotid bruits Resp normal respiratory effort and no use of accessory muscles Resp Narrative: Not tachypneic and no conversational dyspnea. Has a few rhonchi but no crackles and no wheezes. No increase in the AP diameter of the chest. Effort and Inspection: able to speak in complete sentences Cardio regular rate, regular rhythm, S1 normal heart sound, S2 normal heart sound, no murmurs, no rub and no gallops Cardio Narrative: the PMI is displaced medially and inferior (vertical heart) GI normal to inspection, nondistended, normoactive bowel sounds and non-tender GI Narrative: No guarding with palpation. Narrative: Bladder is not distended Extremity no clubbing, cyanosis or edema and no calf tenderness Peripheral Pulses: Yes pulses 2+ throughout Skin Skin Narrative: No rashes, no skin breakdown. He has a incision from the recent hip surgery on the left. Neuro oriented x3, CN's II-XII intact bilaterally and no focal motor deficits Motor Exam: strength 5/5 throughout Psych affect normal Psych Narrative: Appropriate, making good eye contact. Able to stay on topic and focus. No flight of ideas. Does not appear anxious or depressed. Conversant and relating well to staff. Results Lab / Micro Data Result Diagrams: 09/08/21 05:55 09/08/21 05:55 Assessment & Plan Assessment/Plan (1) Physical debility: (2) Closed intertrochanteric fracture of left femur: QUALIFIERS: Encounter type: subsequent encounter Fracture alignment: nondisplaced (3) History of open reduction and internal fixation (ORIF) procedure: (4) DVT prophylaxis: (5) Acute blood loss anemia: (6) Prostatic cancer: (7) Hydronephrosis: QUALIFIERS: Hydronephrosis type: unspecified Qualified Code(s): N13.30 - Unspecified hydronephrosis (8) Hyponatremia: (9) Chronic bronchitis: QUALIFIERS: Chronic bronchitis type: simple Qualified Code(s): J41.0 - Simple chronic bronchitis PLAN: PLAN PT for gait stability OT for ADL's Analgesics as needed Bowel protocol Fall precautions Assess for Anxiety/Depression GI prophylaxis not necessary at this time.....he is asymptomatic DVT prophylaxis with 2.5 mg of Eliquis twice daily for 4 weeks from the date of surgery. Follow up with Dr. Holguin following DC from Rehab. Will need to get a PCP because Dr. Hakeem Frank has retired. He should follow up with Dr. Hollignsworth re: R hydronephrosis and hydroureter AM lab including CMP, CBC, Mag and Phos - personally reviewed. Urine sodium and osmolality and serum osmolality. Check TSH and cortisol. Continue the iron supplement and Vitamin D started by Dr. Sharma. UA and urine culture Unit Exclusion This patient is an acute care inpatient being housed in the excluded unit because of capacity issues related to the disaster or emergency.: Yes Charges/Coding Visit Charges Inpatient E&M: 21267 Init Hosp L3
[2021-09-07 19:25] VITALS: BP 112/70; PULSE 81; RESP 15; TEMP 36.8; O2SAT 96
[2021-09-07 20:55] VITALS: O2SAT 96
[2021-09-07] MEDS: Acetaminophen 500 MG Tablet 1000 MG PO (21:03)
[2021-09-07] MEDS: APIXABAN 2.5 MG TABLET PO (21:03)
[2021-09-07] MEDS: 0.9% Saline Lock 10 ML Syringe IV (21:09)
[2021-09-07 21:12] VITALS: O2SAT 96
[2021-09-08 01:10] LABS: Mucous, Urine 0 SEEN /hpf (<or=2+)
[2021-09-08 01:20] LABS: Color, Urine Yellow (Yellow); Glucose, Dipstick Normal (Normal); Ketone-Dipstick Negative (Negative); Leukocyte Esterase-Dipstick 100 /ul (Negative); Nitrite-Dipstick Negative (Negative); Occult Blood-Urine 250 /ul (Negative); Protein-Dipstick 30 mg/dl (Negative); Urine Bilirubin Dipstick Negative (Negative); Urine Clarity Clear (Clear); Urine Urobilinogen Normal (Normal); Urine pH 6.5 (5.0 - 8.0)
[2021-09-08 01:22] LABS: Urine Sodium 42 mmol/L (Not Establ.)
[2021-09-08 01:29] LABS: Amorphous Sediment RARE; Bacteria 1+ /hpf (None Seen); Red Blood Cells-Urine 10-25 SEEN /hpf (0-5); Squamous Epithelial Cells - UA 0-5 SEEN /hpf (0-5); White Blood Cells 5-10 SEEN /hpf (0-5)
[2021-09-08 02:53] LABS: Osmolality, Urine 406 mOsm/KG
[2021-09-08] MEDS: Acetaminophen 500 MG Tablet 1000 MG PO ×3 (05:21→21:33)
[2021-09-08 06:15] LABS: Hematocrit 24.7 % (40-54); Hemoglobin 8.4 g/dL (13.0-16.5); Mean Corpuscular Hgb 31.7 pg (27.0-32.0); Mean Corpuscular Volume 93.2 fL (80-94); Mean Platelet Vol. 8.9 fl (6.2-12.0); Platelet Count 178 K/mm3 (150-450); RBC Distribution Width CV 12.5 % (11.6-14.6); RBC Distribution Width SD 42.3 fl (35.1-43.9); Red Blood Count 2.65 M/mm3 (4.6-6.2); White Blood Count 5.8 K/mm3 (4.4-11.0)
[2021-09-08 06:51] LABS: Osmolality, Serum 267 mOsm/KG (280-301)
[2021-09-08 06:52] LABS: ALB/GLOB Ratio 0.6 RATIO (0.9-2.4); AST(SGOT) 26 U/L (15-37); Alanine Aminotransfer ALT/SGPT 11 U/L (16-61); Albumin, Serum 2.1 g/dL (3.2-5.0); Alkaline Phosphatase 93 U/L (45-117); Anion Gap 7 (5-15); BUN 16 mg/dL (7-18); BUN/Creat Ratio 20.4 RATIO (10-20); Calcium,Total 8.2 mg/dL (8.5-10.1); Chloride 94 mmol/L (98-107); Creatinine, Serum 0.78 mg/dL (0.70-1.30); EST Glomerular Filtration Rate 100 mL/min (>60); Est Glom Filt Rate - Afr Amer 121 mL/min (>60); Estimated Creatinine Clearance 46.67 ml/min; Globulin 3.4 g/dL (2.2-4.2); Glucose 99 mg/dL (74-106); Magnesium 1.7 mg/dL (1.6-2.6); Phosphorus 2.4 mg/dL (2.5-4.9); Potassium 4.1 mmol/L (3.5-5.1); Protein, Total 5.5 g/dL (6.4-8.2); Sodium Level 128 mmol/L (136-145); Thyroid Stim Hormone (TSH) 0.25 uIU/mL (0.358-3.74)
[2021-09-08 08:00] VITALS: BP 108/57; PULSE 88; RESP 20; TEMP 37; O2SAT 92
[2021-09-08] MEDS: Cholecalciferol (Vit D3) 125 MCG CAPSULE (5,000 UNITS) PO (08:43)
[2021-09-08] MEDS: Ascorbic Acid 500 MG Tablet PO ×2 (08:43→16:52)
[2021-09-08] MEDS: Calcium Carbonate 500 MG Tablet PO ×3 (08:43→16:51)
[2021-09-08] MEDS: Nystatin Powder 15gm Bottle 1 APPLIC TOPICAL ×2 (08:44→21:33)
[2021-09-08] MEDS: Menthol/Lanolin/Calamine/Znox 113 GM Tube 1 APPLIC TOPICAL ×2 (08:45→21:31)
[2021-09-08] MEDS: APIXABAN 2.5 MG TABLET PO ×2 (08:52→21:32)
[2021-09-08 12:06] LABS: T4 Free Direct 1.74 ng/dL (0.76-1.46)
[2021-09-08] MEDS: 0.9% Saline Lock 10 ML Syringe IV ×2 (16:58→20:59)
[2021-09-08 20:37] VITALS: BP 116/54; PULSE 87; RESP 16; TEMP 36.7; O2SAT 92
[2021-09-08 21:16] VITALS: PULSE 87
--- NOTE | 2021-09-09 03:37 | NURSING ---
REVIEWED AND AGREE WITH STRATEGIC PARTNER DEVELOPMENT MANAGER'S FUNCTIONAL ASSESSMENT AND HANDOFF CHARTING.
[2021-09-09] MEDS: Acetaminophen 500 MG Tablet 1000 MG PO ×3 (06:33→22:31)
[2021-09-09 08:00] VITALS: BP 124/63; PULSE 85; RESP 19; TEMP 36.7; O2SAT 92
[2021-09-09] MEDS: Calcium Carbonate 500 MG Tablet PO (08:02)
[2021-09-09] MEDS: Ferrous Sulfate 325 MG Tablet PO ×2 (08:02→08:09)
[2021-09-09] MEDS: Ascorbic Acid 500 MG Tablet PO ×2 (08:03→17:23)
[2021-09-09] MEDS: APIXABAN 2.5 MG TABLET PO ×2 (08:03→22:31)
[2021-09-09] MEDS: Cholecalciferol (Vit D3) 125 MCG CAPSULE (5,000 UNITS) PO (08:03)
[2021-09-09] MEDS: Nystatin Powder 15gm Bottle 1 APPLIC TOPICAL ×2 (08:07→22:31)
[2021-09-09] MEDS: Menthol/Lanolin/Calamine/Znox 113 GM Tube 1 APPLIC TOPICAL ×2 (08:07→22:29)
--- NOTE | 2021-09-09 10:14 | PCM.RU.PYE ---
Admission Information Primary Diagnosis:: Debility due to a fall resulting in a L hip fx with ORIF of the left hip by Dr. Holguin. Status Changes from Prescreening?: No changes Identified Actual Problem List:: Bleeding, Skin Intergrity, Pain, ALteration in Cmfrt, Mobility Impaired, Self Care Deficit, Know.Dfct/Disease Process, Alteration/ Air Exchange and Alteration-Leisure Activ. Potential Problem List:: DVT, Bleeding, Infection, UTI, Aspiration, Falls, Skin Integrity and Depression Risk of Complications DVT: TORIN Hose and - (Eliquis 2.5 mg BID for 28 days) Bleeding: Monitor Lab Values, Nursing to Teach Precautions for anti-coagulation therapy., Wound, if applicable, to be assessed every shift. and Stroke patients assessed for lethargy or change in status. Infection: Clinical Staff to Monitor for S/S of infection: and S/S of infection include fever, redness, warmth, etc. Urinary Tract Infection: Monitor for frequency, burning, discomfort, or incontinence. and Nursing will obtain urine sample for urinalysis and C&S when ordered. Aspiration: Clinical staff will monitor for coughing, drooling, congestion., Speech will evaluate swallowing and dsyphasia. and Nursing will monitor patient swallowing during meals. Falls: Patient will be evaluated for Fall Precautions and Patient will be placed on Fall Precautions as indicated per protocol. Skin Breakdown: Nursing will assess skin daily using assessment tool. and Nursing will place on Skin Breakdown Precautions as indicated. Pain: Clinical staff will assess patient's pain level per protocol., Medications will be given, if needed, and the pain level reassessed. and Other methods: Massage, distraction, decrease stimulus, etc. used PRN. Plan of Care Patient requires physician specializing in physical medicine and rehab oversight to provide close medical supervision of rehab issues including: Pain Management, Sleep Problems, Bowel and Bladder, Medical and co-morbidity Management, DVT prophylaxis, Rehabilitation Leadership and Coordination of treatment team Patient needs Physical Therapy: For a minimum of 1 hour and At least 5 out of 7 days Patient needs Physical Therapy to improve:: Mobility, Strengthening, Transfers, Stretching, ROM, Endurance, Stairs, Gait and Balance Patient needs Occupational Therapy: For a minimum of 1 hour and At least 5 out of 7 days Patient needs Occupational Therapy to improve ADL's incl.: Eating, Grooming, Bathing, Dressing, Toileting, Toilet transfers, Community Reintegration, Higher functioning activities, Household tasks, Adaptive Equipment, Splinting and Other activities as determined Patient requires 24/7 Rehabilitation Nursing for: Pain Issues, Identifying and preventing risk factors, Monitoring and reporting current medical conditions, Assisting with ambulation, transfer, and all ADL's, Teaching patients about disease process and medications, Family teaching, Providing safe environment, Bowel and Bladder Issues, Skin integrity and Medication Management Patient needs Animal Attendants And Trainers/ Case Management for: Discharge Planning, Arranging Home Equipment or Services and Family Interventions Patient needs Dietary and Nutrition Services for: Adequate Nutrition, Nutritional Supplements and Nutritional Education Goals Patient will remain: free from falls and or injury at time of discharge. Patient will perform bed mobility at: MOD I level of assist. Patient will complete transfers from bed to chair at: MOD I level of assist. Patient will ambulate: 100 feet, with LRD and - (> 300' with LRD ) Patient will complete upper body dressing at: MOD I level of assist. Patient will complete lower body dressing at: MOD I level of assist. (with AE as needed) Patient will complete toileting at: MOD I level of assist. Patient will perform bathing at: - (supervision/assist using AE as needed) Patient will complete grooming at: MOD I level of assist. Patient will complete home management skills at: MOD I level of assist. Patient will achieve: - (1 curb step and 3 regular steps with 2 HR's to gain access to his house) Patient will have pain level of: of 3 or less Patient's skin will: remain intact Patient will receive: adequate nutrition. Discharge Planning Pt Prognosis for Sig. Practical Improv. w/in Reasonable Time: Good Estimated Length of stay (days): 14 Anticipated D/C Destination: Home with Home Health Was Preadmission Assessment Accurate?: Yes
--- NOTE | 2021-09-09 10:16 | PN_ITS ---
Progress Note Afebrile VSS Maintaining appropriate oxygen saturation on RA Oral intake restricted to 1200 cc/day due to suspected SIADH. Discussed with nursing - no problems that need addressed Reviewed the PT/OT notes Medication list reviewed. All lab form 09/08 has been personally reviewed. HGB is low at 8.4 but stable. He has normochromic normocytic indices and a normal platelet count. White blood cell count is within normal limits however he had a left shift during the acute hospital stay. Sodium is stable at 128. The BUN is 16 with a creatinine of 0.78. Serum osmolality is low at 267 and the urine osmolality is less than maximally dilute at 406. Urine sodium was 42. Calcium corrected for hypoalbuminemia is within normal limits. Phosphorus is low at 2.4 and the magnesium is 1.7. TSH is low and T4 is high. He is not on a thyroid supplement as an OP. His only complaint continues to be pain in the Left buttock which he associates with a sore on his Left buttock. Kofi denies chest pain, shortness of breath, palpitations, lightheadedness, nausea/vomiting/abdominal pain, dysuria, urinary hesitancy and LOPEZ. Physical Exam Narrative alert and oriented X 3. Lying in bed and appears comfortable. He is sitting on a donut due to the pain in the left buttock. Denies Hip pain. Const Constitutional Narrative: He is well kempt and appropriate. HEENT HEENT Narrative: MM are dry. No facial asymmetry. Eyes Eyes Narrative: No scleral icterus, no conjunctival irritation and no discharge from the eyes. Neck Neck Narrative: No carotid bruits, the neck is supple, no JVD. Resp Resp Narrative: Breath sounds are diminished however the lungs are clear to auscultation and he is able to speak in complete sentences. Cardio Cardio Narrative: Regular rate and rhythm, no murmurs, no gallops, no rubs. No ectopy. No pain with palpation of the chest wall. GI GI Narrative: Flat, soft, normal bowel sounds, no guarding with palpation. Extremity Extremity Narrative: No peripheral edema, no calf pain. No cyanosis. Skin Wound Narrative: The incisions in the left hip/lateral thigh are intact with no erythema, no purulent discharge and no significant swelling in the area. Psych Attitude: calm and engaged Speech: normal speech Thought Process: normal thought process Attention / Concentration: attention grossly intact Memory / Cognition: memory grossly intact Assessment & Plan Assessment/Plan (1) Closed intertrochanteric fracture of left femur: QUALIFIERS: Encounter type: subsequent encounter Fracture a lignment: nondisplaced (2) History of open reduction and internal fixation (ORIF) procedure: (3) Hyperthyroidism: (4) History of SIADH: (5) Hyponatremia: (6) Hypophosphatemia: PLAN: 1. Continue PT/OT 2. Will need to follow up with endocrinology post DC. Will check anti-thyroid antibodies 3. Continue fluid restriction for SIADH 4. HGB is stable - Continue the iron supplement 5. Needs a BMD going forward - Likely has significant bone loss due to age and to hyperthyroidism. 6. Await the results of the urine culture.......He is AF and has a nl WBC but he has a left shift. Visit Charges Inpatient E&M: 44267 Subs Hosp L2
[2021-09-09 10:18] VITALS: O2SAT 94
--- NOTE | 2021-09-09 10:54 | NURSING ---
Recorded trending pulse ox while walking, pt maintained 94% on RA
[2021-09-09 11:01] VITALS: O2SAT 92
[2021-09-09] MEDS: Na Biphos/Potassium Phosphate PACKET 1 PACKET PO ×2 (13:00→22:28)
[2021-09-09] MEDS: Magnesium Chloride 64 MG Delay Rel.Tablet 128 MG PO (13:00)
[2021-09-09] MEDS: 0.9% Saline Lock 10 ML Syringe IV (13:01)
--- NOTE | 2021-09-10 03:46 | NURSING ---
Reviewed and agree with GROUP ACCOUNT DIRECTOR documentation and assessment charting
[2021-09-10] MEDS: Na Biphos/Potassium Phosphate PACKET 1 PACKET PO ×3 (05:11→20:10)
[2021-09-10] MEDS: Acetaminophen 500 MG Tablet 1000 MG PO ×3 (05:11→20:10)
[2021-09-10 07:01] VITALS: O2SAT 92
[2021-09-10] MEDS: Magnesium Chloride 64 MG Delay Rel.Tablet 128 MG PO (08:18)
[2021-09-10] MEDS: APIXABAN 2.5 MG TABLET PO ×2 (08:18→20:10)
[2021-09-10] MEDS: Cholecalciferol (Vit D3) 125 MCG CAPSULE (5,000 UNITS) PO (08:18)
[2021-09-10] MEDS: Ascorbic Acid 500 MG Tablet PO ×2 (08:18→15:59)
[2021-09-10] MEDS: Senna/Docusate Sodium 1 Tablet 2 TABLET PO (08:19)
[2021-09-10] MEDS: Nystatin Powder 15gm Bottle 1 APPLIC TOPICAL ×2 (08:21→20:10)
[2021-09-10] MEDS: Menthol/Lanolin/Calamine/Znox 113 GM Tube 1 APPLIC TOPICAL (08:22)
[2021-09-10 09:18] VITALS: BP 120/62; PULSE 86; RESP 18; TEMP 36.8; O2SAT 92
[2021-09-10 20:00] VITALS: BP 120/63; PULSE 87; RESP 17; TEMP 36.7; O2SAT 94
--- NOTE | 2021-09-11 01:10 | NURSING ---
Reviewed and agree with ELEVATOR CONSTRUCTOR HYDRAULIC documentation and assessment charting.
[2021-09-11] MEDS: Na Biphos/Potassium Phosphate PACKET 1 PACKET PO ×3 (06:07→19:50)
[2021-09-11] MEDS: Acetaminophen 500 MG Tablet 1000 MG PO ×3 (06:07→19:49)
[2021-09-11 08:02] VITALS: BP 112/67; PULSE 83; RESP 16; TEMP 36.2; O2SAT 93
[2021-09-11] MEDS: Nystatin Powder 15gm Bottle 1 APPLIC TOPICAL ×2 (08:27→19:48)
[2021-09-11] MEDS: Ascorbic Acid 500 MG Tablet PO ×2 (08:28→17:06)
[2021-09-11] MEDS: Ferrous Sulfate 325 MG Tablet PO (08:28)
[2021-09-11] MEDS: Magnesium Chloride 64 MG Delay Rel.Tablet 128 MG PO (08:28)
[2021-09-11] MEDS: APIXABAN 2.5 MG TABLET PO ×2 (08:28→19:50)
[2021-09-11] MEDS: Cholecalciferol (Vit D3) 125 MCG CAPSULE (5,000 UNITS) PO (08:29)
[2021-09-11] MEDS: Menthol/Lanolin/Calamine/Znox 113 GM Tube 1 APPLIC TOPICAL ×2 (08:31→19:47)
[2021-09-11 19:30] VITALS: BP 128/61; PULSE 81; RESP 17; TEMP 36.3; O2SAT 94
[2021-09-12] MEDS: Acetaminophen 500 MG Tablet 1000 MG PO ×3 (05:28→20:01)
[2021-09-12] MEDS: Calcium Carbonate 500 MG Tablet PO ×2 (08:00→17:35)
[2021-09-12] MEDS: Ascorbic Acid 500 MG Tablet PO ×2 (08:01→17:35)
[2021-09-12] MEDS: Magnesium Chloride 64 MG Delay Rel.Tablet 128 MG PO (08:01)
[2021-09-12] MEDS: Cholecalciferol (Vit D3) 125 MCG CAPSULE (5,000 UNITS) PO (08:01)
[2021-09-12] MEDS: APIXABAN 2.5 MG TABLET PO ×2 (08:01→20:01)
[2021-09-12] MEDS: Menthol/Lanolin/Calamine/Znox 113 GM Tube 1 APPLIC TOPICAL ×2 (08:02→20:02)
[2021-09-12] MEDS: Nystatin Powder 15gm Bottle 1 APPLIC TOPICAL ×2 (08:02→20:01)
[2021-09-12 08:37] VITALS: BP 136/72; PULSE 87; RESP 16; TEMP 36.1; O2SAT 92
--- NOTE | 2021-09-12 13:44 | CASEMGMT ---
Social Work IDT met with patient, and sister for Team meeting. Discussed patients progress in PT/OT/SN. Explained Medicare approved 14 days with DC 09/21. The goal is for pt to return home with . SW to order continued therapy and DME as needed. Will Reteam. SW to continue to follow. Lizzy Benson, POWERHOUSE OPERATOR MOTTLER MACHINE FEEDER
--- NOTE | 2021-09-12 18:30 | PN_ITS ---
Subjective Subjective Kofi was seen on team rounds today. His was present in the room for rounds. Afebrile VSS-blood pressure is well controlled. Heart rate is within normal limits. Maintaining appropriate oxygen saturation on - to 94% Oral intake is adequate Discussed with nursing - no problems that need addressed Reviewed the PT/OT notes Medication list reviewed. He did not sleep well again last night. He tells me the pain in the R buttock keeps him awake. He has had this prior to the fall and hip fx. Sometimes it goes away for a few weeks at a time. There are no openings in the skin over the right buttock and the pain is localized to the sciatic notch. I suspect it is radicular pain. He denies CP, SOB, palpitations, LOPEZ, calf pain, dysuria,N/V/abd pain. He tells me that pain in the hip is well controlled. He is using a donut to keep the painful area in the R buttock from contacting the bed. Objective Data Objective Data Vital Signs: Vital Signs Temp Pulse Resp BP Pulse Ox 97.0 F L 87 16 136/72 H 92 09/12/21 08:37 09/12/21 08:37 09/12/21 08:37 09/12/21 08:37 09/12/21 08:37 Oxygen Delivery Method Room Air Weight: 138 lb 14.259 oz Body Mass Index (BMI) 19.3 Intake & Output: Intake and Output for Last 24 Hours 09/10/21 09/11/21 09/12/21 23:59 23:59 23:59 Intake Total 1120 / 1120 1420 / 1420 1160 / 1160 Output Total 925 / 925 825 / 825 1075 / 1075 Balance 195 / 195 595 / 595 85 / 85 Lab / Micro Data Result Diagrams: 09/08/21 05:55 09/08/21 05:55 Micro: Microbiology 09/08/21 00:55 Urine, Clean Catch Urine Culture - Final GNR Poss Pseudomonas sp Physical Exam Const alert, oriented x3 and no apparent distress Constitutional Narrative: Making good eye contact, appropriate, pleasant. General Appearance: cooperative and comfortable Neck supple, no JVD and no carotid bruits Resp normal respiratory effort Resp Narrative: Not tachypneic and no conversational dyspnea. Has a few rhonchi but no crackles and no wheezes. No increase in the AP diameter of the chest. Effort and Inspection: able to speak in complete sentences Cardio regular rate, regular rhythm, S1 normal heart sound, S2 normal heart sound, no murmurs, no rub and no gallops Cardio Narrative: the PMI is displaced medially and inferior (vertical heart) GI normal to inspection, nondistended, normoactive bowel sounds and non-tender GI Narrative: No guarding with palpation. Narrative: Bladder is not distended Extremity no calf tenderness Extremity Narrative: There is edema of the Left upper thigh around the incision and there is also ecchymosis in the later hip and buttock that is resolving. There is no significant ankle edema on the left General Extremity: Negative for clubbing or cyanosis Skin Skin Narrative: No rashes, no skin breakdown. He has a incision from the recent hip surgery on the left. There is no purulent DC from the incision and no erythema. There is no opening in the skin of the buttock. General Skin Exam: no breakdown Neuro oriented x3, CN's II-XII intact bilaterally and no focal motor deficits Psych affect normal Psych Narrative: Appropriate, making good eye contact. Able to stay on topic and focus. No flight of ideas. Does not appear anxious or depressed. Conversant and relating well to staff. Assessment & Plan Assessment/Plan (1) Closed intertrochanteric fracture of left femur: QUALIFIERS: Encounter type: subsequent encounter Fracture alignment: nondisplaced (2) History of open reduction and internal fixation (ORIF) procedure: (3) Hyperthyroidism: PLAN: Will follow up with Dr. Walters and needs a BMD following DC from rehab. No tx at this time. Antithyroid antibodies are negative. will need imaging of the thyroid post DC. (4) History of SIADH: PLAN: He is now on fluid restriction. Will recheck a BMP in the AM. (5) Hyponatremia: (6) Hypophosphatemia: PLAN: Recheck the phos in the AM PLAN: Plan 1. Continue PT/OT 2. Will need to follow up with endocrinology post DC. Antithyroid antibodies are negative. 3. Continue fluid restriction for SIADH -1200 cc daily 4. CBC with diff in the a.m. 5. Needs a BMD going forward - Likely has significant bone loss due to age and to hyperthyroidism. 6. The urine culture grew less than 1,000 colonies of Pseudomonas. He is AF and asymptomatic with no dysuria and no flank pain or nausea. No indication to treat at this time. Should he become symptomatic Will need to consider the urinary tract the source. He has a JJ stent in the R ureter and this is to be changed every 6 months and it has been 2 years since he has been to see Dr. Hollingsworth. 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 will recommend he follow up with Dr. Hollingsworth following DC from rehab. 7. Anticipate that he will able to DC home from rehab with [facility]. Charges/Coding Visit Charges Inpatient E&M: 62791 Subs Hosp L2
[2021-09-12] MEDS: Senna/Docusate Sodium 1 Tablet 2 TABLET PO (20:01)
[2021-09-12 21:21] VITALS: BP 126/65; PULSE 73; RESP 16; TEMP 36.6; O2SAT 95
[2021-09-13] MEDS: Acetaminophen 500 MG Tablet 1000 MG PO ×3 (05:03→21:16)
[2021-09-13 06:10] LABS: Absolute Lymphocyte Count 0.45 X10^3/uL (0.83-4.51); Absolute Neutrophil Count 2.5 X10^3/uL (2.0-7.7); Basophil# 0.02 X10^3/uL; Basophil% 0.5 % (0-1); Eosinophil# 0.15 X10^3/uL; Eosinophils% 4.1 % (0-5); Hematocrit 26.8 % (40-54); Hemoglobin 8.7 g/dL (13.0-16.5); Lymphocyte # 0.45 X10^3/ul (0.83-4.51); Lymphocyte % 12.3 % (19-41); Mean Corp Hgb Conc 32.5 g/dL (32-36); Mean Corpuscular Volume 95.4 fL (80-94); Mean Platelet Vol. 8.5 fl (6.2-12.0); Monocyte# 0.44 X10^3/uL; NRBC Flagged by Analyzer 0 % (0-5); Neutrophil # 2.51 X10^3/uL (2.7-7.7); Neutrophil % 68.4 % (47-70); POSITIVE DIFFERENTIAL YES; Platelet Count 253 K/mm3 (150-450); RBC Distribution Width CV 13.5 % (11.6-14.6); RBC Distribution Width SD 45.8 fl (35.1-43.9); Red Blood Count 2.81 M/mm3 (4.6-6.2); White Blood Count 3.7 K/mm3 (4.4-11.0)
[2021-09-13 06:21] LABS: Differential Indicated SCAN CRITERIA MET
[2021-09-13 06:38] LABS: Anion Gap 5 (5-15); Anisocytosis 1+; BUN 15 mg/dL (7-18); BUN/Creat Ratio 17.8 RATIO (10-20); Calcium,Total 8.4 mg/dL (8.5-10.1); Chloride 96 mmol/L (98-107); Creatinine, Serum 0.84 mg/dL (0.70-1.30); EST Glomerular Filtration Rate 92 mL/min (>60); Est Glom Filt Rate - Afr Amer 111 mL/min (>60); Estimated Creatinine Clearance 57.29 ml/min; Glucose 96 mg/dL (74-106); Macrocytosis 1+; Phosphorus 3.2 mg/dL (2.5-4.9); Potassium 4.5 mmol/L (3.5-5.1); Sodium Level 128 mmol/L (136-145)
[2021-09-13 07:36] VITALS: BP 130/60; PULSE 82; RESP 16; TEMP 36.3; O2SAT 95
[2021-09-13] MEDS: Magnesium Chloride 64 MG Delay Rel.Tablet 128 MG PO (08:04)
[2021-09-13] MEDS: Menthol/Lanolin/Calamine/Znox 113 GM Tube 1 APPLIC TOPICAL ×2 (08:04→21:14)
[2021-09-13] MEDS: APIXABAN 2.5 MG TABLET PO ×2 (08:04→21:15)
[2021-09-13] MEDS: Ascorbic Acid 500 MG Tablet PO ×2 (08:04→17:15)
[2021-09-13] MEDS: Cholecalciferol (Vit D3) 125 MCG CAPSULE (5,000 UNITS) PO (08:04)
[2021-09-13] MEDS: Calcium Carbonate 500 MG Tablet PO ×2 (08:04→17:15)
[2021-09-13] MEDS: Ferrous Sulfate 325 MG Tablet PO (08:04)
[2021-09-13] MEDS: Nystatin Powder 15gm Bottle 1 APPLIC TOPICAL ×2 (08:05→21:15)
--- NOTE | 2021-09-13 13:42 | PCM.PN.BLA ---
Progress Note Afebrile VSS Maintaining appropriate oxygen saturation on RA Oral intake is usually adequate. He is eating well. Discussed with nursing - no problems that need addressed Reviewed the PT/OT notes - He is walking 50' with a WW - had to take some rest breaks today. Medication list reviewed. He is on scheduled Tylenol for pain control and has not taken any Oxycodone. All lab was personally reviewed. HGB is stable to 8.7(down from 13 prior to the hip fx/ORIF). WBC is low at 3.7 and the platelets are normal. Sodium is stable at 128. Creatinine is stable at 0.84 and this is within his baseline. Calcium corrected for hypoalbuminemia is within normal limits. Kofi denies CP, SIB, palpitations, N/V/abd pain, lightheadedness, dysuria. His only real complaint is the pain in the R buttock. Physical Exam Const alert, oriented x3 and no apparent distress General Appearance: cooperative HEENT Mouth: oral and palatal mucosa normal Eyes General Eye: normal appearance of both eyes Conjunctiva: conjunctiva normal Sclera: sclera normal Neck no JVD General: trachea midline Chest Chest: symmetrical chest wall rise Resp normal respiratory effort, no use of accessory muscles and clear to auscultation bilaterally Effort and Inspection: able to speak in complete sentences Cardio regular rate, regular rhythm, S1 normal heart sound, S2 normal heart sound, no murmurs, no rub and no gallops Cardio Narrative: vertical heart due to suspected COPD......has never had PFT's GI normal to inspection, nondistended, normoactive bowel sounds, non-tender and non-distended GI Narrative: no guarding with palpation Extremity normal capillary refill, no calf tenderness and no pedal edema Skin no rashes or lesions noted and no jaundice Skin Narrative: the Left hip incisions are intact with no erythema and no purulent DC. The ecchymosis is resolving. Neuro oriented x3, CN's II-XII intact bilaterally and no focal motor deficits Sensorium / Orientation: alert Psych affect normal Psych Narrative: appropriate, makes good eye contact Assessment & Plan Assessment/Plan (1) Physical debility: PLAN: Doing well in therapy. Will continued PT/OT. His more likely than not has dementia and she will not be able to assist him much. Will need to be MOD I with ambulation, bathing, and toileting prior to going home. Must be able to do 3 steps to gain entry into his home. Continue Eliquis for DVT prophylaxis. (2) Closed intertrochanteric fracture of left femur: QUALIFIERS: Encounter type: subsequent encounter Fracture alignment: nondisplaced (3) History of open reduction and internal fixation (ORIF) procedure: (4) Acute blood loss anemia: PLAN: Stable. will recheck on 09/20/21. He also had some mild leukopenia on the last CBC......etiology? (5) Hyperthyroidism: PLAN: Low TSH with an increased T4 but, asymptomatic. He is going to follow up with Dr. King sariah THAYER. (6) Hydronephrosis: QUALIFIERS: Hydronephrosis type: unspecified Qualified Code(s): N13.30 - Unspecified hydronephrosis PLAN: The current JJ stent on the R side has been in for 2 years.......he has hydronephrosis and hydroureter. 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 Will recommend he follow up with Dr. Darrick rolle DC from rehab. Visit Charges Inpatient E&M: 62765 Subs Hosp L2
[2021-09-13 13:55] LABS: Pathologist Review Reviewed
[2021-09-13 19:21] VITALS: BP 105/60; PULSE 79; RESP 16; TEMP 36.7; O2SAT 95
[2021-09-13] MEDS: Gabapentin 100 MG Capsule 200 MG PO (19:40)
[2021-09-13 22:15] VITALS: O2SAT 95
[2021-09-14] MEDS: Acetaminophen 500 MG Tablet 1000 MG PO ×3 (06:22→21:48)
[2021-09-14 08:15] VITALS: BP 110/56; PULSE 78; RESP 16; TEMP 36.4; O2SAT 92
[2021-09-14] MEDS: Calcium Carbonate 500 MG Tablet PO ×2 (09:21→16:30)
[2021-09-14] MEDS: Ascorbic Acid 500 MG Tablet PO ×2 (09:22→16:30)
[2021-09-14] MEDS: APIXABAN 2.5 MG TABLET PO ×2 (09:22→21:47)
[2021-09-14] MEDS: Magnesium Chloride 64 MG Delay Rel.Tablet 128 MG PO (09:23)
[2021-09-14] MEDS: Cholecalciferol (Vit D3) 125 MCG CAPSULE (5,000 UNITS) PO (10:43)
[2021-09-14] MEDS: Menthol/Lanolin/Calamine/Znox 113 GM Tube 1 APPLIC TOPICAL ×2 (10:44→21:51)
[2021-09-14] MEDS: Nystatin Powder 15gm Bottle 1 APPLIC TOPICAL ×2 (10:44→21:51)
[2021-09-14 19:30] VITALS: BP 107/51; PULSE 88; RESP 16; TEMP 36.6; O2SAT 93
[2021-09-14] MEDS: Gabapentin 100 MG Capsule 200 MG PO (21:45)
[2021-09-14] MEDS: Senna/Docusate Sodium 1 Tablet 2 TABLET PO (21:47)
[2021-09-14 22:00] VITALS: O2SAT 93
--- NOTE | 2021-09-15 04:41 | NURSING ---
Reviewed and agree with BIOFUELS ENGINEERING MANAGER documentation and assessment charting.
[2021-09-15] MEDS: Acetaminophen 500 MG Tablet 1000 MG PO ×3 (04:59→21:36)
[2021-09-15 07:18] VITALS: BP 94/48; PULSE 79; RESP 16; TEMP 35.7; O2SAT 94
[2021-09-15] MEDS: Ascorbic Acid 500 MG Tablet PO ×2 (08:05→16:33)
[2021-09-15] MEDS: Calcium Carbonate 500 MG Tablet PO ×2 (08:05→16:33)
[2021-09-15] MEDS: APIXABAN 2.5 MG TABLET PO ×2 (08:05→21:36)
[2021-09-15] MEDS: Senna/Docusate Sodium 1 Tablet 2 TABLET PO (08:06)
[2021-09-15] MEDS: Ferrous Sulfate 325 MG Tablet PO (08:06)
[2021-09-15] MEDS: Cholecalciferol (Vit D3) 125 MCG CAPSULE (5,000 UNITS) PO (08:06)
[2021-09-15] MEDS: Magnesium Chloride 64 MG Delay Rel.Tablet 128 MG PO (08:06)
[2021-09-15] MEDS: Nystatin Powder 15gm Bottle 1 APPLIC TOPICAL ×2 (08:07→21:35)
[2021-09-15] MEDS: Menthol/Lanolin/Calamine/Znox 113 GM Tube 1 APPLIC TOPICAL ×2 (08:08→21:34)
[2021-09-15 08:30] VITALS: BP 110/63
[2021-09-15 18:56] VITALS: BP 124/61; PULSE 79; RESP 14; TEMP 36.8; O2SAT 97
[2021-09-15 19:21] VITALS: PULSE 76; RESP 16; O2SAT 97
[2021-09-15] MEDS: Gabapentin 100 MG Capsule 200 MG PO (21:34)
[2021-09-16] MEDS: Calcium Carbonate 500 MG Tablet PO ×2 (07:35→17:23)
[2021-09-16] MEDS: Acetaminophen 500 MG Tablet 1000 MG PO ×3 (07:35→22:23)
[2021-09-16] MEDS: Magnesium Chloride 64 MG Delay Rel.Tablet 128 MG PO (07:35)
[2021-09-16] MEDS: Cholecalciferol (Vit D3) 125 MCG CAPSULE (5,000 UNITS) PO (07:35)
[2021-09-16] MEDS: Ascorbic Acid 500 MG Tablet PO ×2 (07:37→17:24)
[2021-09-16] MEDS: APIXABAN 2.5 MG TABLET PO ×2 (07:37→22:23)
[2021-09-16] MEDS: Senna/Docusate Sodium 1 Tablet 2 TABLET PO (07:38)
[2021-09-16] MEDS: Menthol/Lanolin/Calamine/Znox 113 GM Tube 1 APPLIC TOPICAL ×2 (07:38→22:24)
[2021-09-16] MEDS: Nystatin Powder 15gm Bottle 1 APPLIC TOPICAL ×2 (07:39→22:23)
[2021-09-16 08:00] VITALS: BP 125/58; PULSE 70; RESP 16; TEMP 36.3; O2SAT 95
--- NOTE | 2021-09-16 10:42 | PCM.PROGNOTE ---
Subjective Subjective Afebrile VSS Maintaining appropriate oxygen saturation on RA Oral intake is fair Discussed with nursing - no problems that need addressed Reviewed the PT/OT/ST notes Medication list reviewed. Pain is controlled with Tylenol and he has not taken any oxycodone since arriving on rehab. Kofi tells me that he does not sleep well at night. He attributes this to pain in his left buttock which he believes is from a wound however, there is no wound on PE. He sits on a donut and this helps somewhat with the pain. Pain increases with sitting. He denies calf pain, chest pain, shortness of breath, palpitations, lightheadedness, nausea/vomiting/abdominal pain, dysuria. Objective Data Objective Data Vital Signs: Vital Signs Temp Pulse Resp BP Pulse Ox 97.3 F L 70 16 125/58 H 95 09/16/21 08:00 09/16/21 08:00 09/16/21 08:00 09/16/21 08:00 09/16/21 08:00 Oxygen Delivery Method Room Air Weight: 139 lb 8.842 oz Body Mass Index (BMI) 19.3 Intake & Output: Intake and Output for Last 24 Hours 09/14/21 09/15/21 09/16/21 23:59 23:59 23:59 Intake Total 1120 / 1120 850 / 910 180 / 180 Output Total 1225 / 1225 850 / 1000 350 / 350 Balance -105 / -105 0 / -90 -170 / -170 Lab / Micro Data Result Diagrams: 09/20/21 05:27 09/20/21 05:27 Micro: Microbiology 09/08/21 00:55 Urine, Clean Catch Urine Culture - Final GNR Poss Pseudomonas sp Physical Exam Const alert and oriented x3 Constitutional Narrative: He is lying in bed. He appears comfortable. He is thin but well-developed. General Appearance: cooperative HEENT normocephalic Mouth: dry mucous membranes Neck No nuchal rigidity and supple General: trachea midline Resp normal respiratory effort and clear to auscultation bilaterally Auscultation: diminished lung sounds Cardio regular rate, regular rhythm, no murmurs, no rub and no gallops GI normal to inspection, nondistended, normoactive bowel sounds and soft to palpation Extremity General Extremity: edema left (he has edema of the upper lateral L thigh due to injury/fx and ORIF. There is ecchymosis which is resolving. There is no erythema and no DC. ); Negative for clubbing or cyanosis Skin General Skin Exam: no breakdown Rashes: no rashes Neuro CN's II-XII intact bilaterally and no focal motor deficits Assessment & Plan Assessment/Plan (1) Physical debility: (2) Closed intertrochanteric fracture of left femur: QUALIFIERS: Encounter type: subsequent encounter Fracture alignment: nondisplaced (3) History of open reduction and internal fixation (ORIF) procedure: (4) DVT prophylaxis: (5) History of SIADH: (6) Hydronephrosis: QUALIFIERS: Hydronephrosis type: unspecified Qualified Code(s): N13.30 - Unspecified hydronephrosis PLAN: 1. Continue PT/OT so that he will be able to return home at discharge. 2. No change to the current medications. 3. He will need to follow-up with Dr. 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 4. consider increasing the dose of the Gabapentin. Charges/Coding Visit Charges Inpatient E&M: 60625 Subs Hosp L1
[2021-09-16 19:31] VITALS: BP 109/56; PULSE 75; RESP 15; TEMP 36.7; O2SAT 94
[2021-09-16 22:00] VITALS: PULSE 82; RESP 15; O2SAT 96
[2021-09-16] MEDS: Gabapentin 100 MG Capsule 200 MG PO (22:21)
[2021-09-17] MEDS: Acetaminophen 500 MG Tablet 1000 MG PO ×3 (06:10→21:04)
[2021-09-17 07:15] VITALS: BP 114/53; PULSE 78; RESP 18; TEMP 36; O2SAT 94
[2021-09-17] MEDS: Calcium Carbonate 500 MG Tablet PO ×2 (07:52→16:35)
[2021-09-17] MEDS: Cholecalciferol (Vit D3) 125 MCG CAPSULE (5,000 UNITS) PO (07:52)
[2021-09-17] MEDS: APIXABAN 2.5 MG TABLET PO ×2 (07:52→21:05)
[2021-09-17] MEDS: Magnesium Chloride 64 MG Delay Rel.Tablet 128 MG PO (07:53)
[2021-09-17] MEDS: Ferrous Sulfate 325 MG Tablet PO (07:53)
[2021-09-17] MEDS: Nystatin Powder 15gm Bottle 1 APPLIC TOPICAL ×2 (10:28→21:05)
[2021-09-17] MEDS: Menthol/Lanolin/Calamine/Znox 113 GM Tube 1 APPLIC TOPICAL ×2 (10:28→21:05)
--- NOTE | 2021-09-17 11:26 | PCM.PN.BLA ---
Progress Note Afebrile VSS Maintaining appropriate oxygen saturation on RA Oral intake is good Discussed with nursing - He is having some urinary urgency and had a small amount of hematuria today per nursing. Reviewed the PT/OT/ST notes Medication list reviewed. He tells me that he had some burning with urination today but after breakfast the burning went away. He has no hx of nephrolithiasis. He denies chest pain, shortness of breath, palpitations, lightheadedness, nausea/vomiting/abdominal pain, flank pain, calf pain and cephalgia. Physical Exam Const alert, oriented x3 and no apparent distress General Appearance: cooperative HEENT HEENT Narrative: Mucous membranes are dry. Resp Resp Narrative: Diminished in all lung manzo but clear to auscultation. No conversational dyspnea. Not tachypneic and no accessory muscle use. Not tachypneic with ambulation. Cardio Cardio Narrative: Regular rate and rhythm, no ectopy, no murmur, no gallop, no rub. GI GI Narrative: Soft, nontender, nondistended, no guarding with palpation, no masses. Extremity Extremity Narrative: No peripheral edema. Skin Wound Narrative: Incisions are intact without dehiscence. There is no erythema, discharge or increased warmth to touch in the joshua-incisional area. Swelling has decreased significantly and the ecchymosis is resolving. Assessment & Plan Assessment/Plan (1) Closed intertrochanteric fracture of left femur: QUALIFIERS: Encounter type: subsequent encounter Fracture alignment: nondisplaced (2) History of open reduction and internal fixation (ORIF) procedure: (3) Hematuria: (4) History of SIADH: (5) Prostatic cancer: PLAN: Plan 1. Send a clean catch for a UA 2. Continue PT/OT. Patient will be able to discharge home from rehab. 3. He is going to need to follow up with Dr. Darrick rolle [place]. Visit Charges Inpatient E&M: 04923 Subs Hosp L2
[2021-09-17] MEDS: Ascorbic Acid 500 MG Tablet PO ×2 (12:01→16:36)
[2021-09-17 12:39] LABS: Mucous, Urine 0 SEEN /hpf (<or=2+)
[2021-09-17 12:53] LABS: Color, Urine Yellow (Yellow); Glucose, Dipstick Normal (Normal); Ketone-Dipstick Negative (Negative); Leukocyte Esterase-Dipstick 500 /ul (Negative); Nitrite-Dipstick Negative (Negative); Occult Blood-Urine 250 /ul (Negative); Protein-Dipstick 100 mg/dl (Negative); Specific Gravity, Urine 1.015 (1.002-1.030); Urine Bilirubin Dipstick Negative (Negative); Urine Clarity Sl. Cloudy (Clear); Urine Urobilinogen Normal (Normal)
[2021-09-17 13:01] LABS: Bacteria 1+ /hpf (None Seen); Red Blood Cells-Urine 25-50 SEEN /hpf (0-5); Squamous Epithelial Cells - UA 0-5 SEEN /hpf (0-5); White Blood Cells 25-50 SEEN /hpf (0-5)
--- NOTE | 2021-09-17 14:44 | NURSING ---
dr gonzales aware of ua results. pt denies any more burning this afternoon. cx pending.
[2021-09-17 19:37] VITALS: BP 113/56; PULSE 84; RESP 14; TEMP 36.8; O2SAT 94
[2021-09-17] MEDS: Senna/Docusate Sodium 1 Tablet 2 TABLET PO (21:04)
[2021-09-17] MEDS: Gabapentin 100 MG Capsule 200 MG PO (21:05)
[2021-09-17] MEDS: 0.9% Saline Lock 10 ML Syringe IV (21:16)
[2021-09-18] MEDS: Acetaminophen 500 MG Tablet 1000 MG PO ×3 (05:51→21:32)
[2021-09-18] MEDS: Ascorbic Acid 500 MG Tablet PO ×2 (07:44→16:01)
[2021-09-18] MEDS: Calcium Carbonate 500 MG Tablet PO ×2 (07:45→16:00)
[2021-09-18 07:58] VITALS: BP 125/58; PULSE 73; RESP 12; TEMP 36.2; O2SAT 95
[2021-09-18] MEDS: APIXABAN 2.5 MG TABLET PO ×2 (09:23→21:33)
[2021-09-18] MEDS: Senna/Docusate Sodium 1 Tablet 2 TABLET PO (09:23)
[2021-09-18] MEDS: Cholecalciferol (Vit D3) 125 MCG CAPSULE (5,000 UNITS) PO (09:23)
[2021-09-18] MEDS: Magnesium Chloride 64 MG Delay Rel.Tablet 128 MG PO (09:23)
[2021-09-18] MEDS: Menthol/Lanolin/Calamine/Znox 113 GM Tube 1 APPLIC TOPICAL ×2 (09:30→21:33)
[2021-09-18] MEDS: Nystatin Powder 15gm Bottle 1 APPLIC TOPICAL ×2 (09:31→21:33)
[2021-09-18] MEDS: Gabapentin 100 MG Capsule 200 MG PO (21:31)
[2021-09-18 21:40] VITALS: BP 116/63; PULSE 80; RESP 16; TEMP 36.7; O2SAT 95
[2021-09-19] MEDS: Acetaminophen 500 MG Tablet 1000 MG PO ×3 (05:50→21:32)
[2021-09-19] MEDS: Ascorbic Acid 500 MG Tablet PO ×2 (07:30→16:39)
[2021-09-19] MEDS: Calcium Carbonate 500 MG Tablet PO ×2 (07:30→16:39)
[2021-09-19 07:36] VITALS: BP 141/69; PULSE 80; RESP 18; TEMP 36.3; O2SAT 94
[2021-09-19] MEDS: APIXABAN 2.5 MG TABLET PO ×2 (09:42→21:32)
[2021-09-19] MEDS: Magnesium Chloride 64 MG Delay Rel.Tablet 128 MG PO (09:42)
[2021-09-19] MEDS: Cholecalciferol (Vit D3) 125 MCG CAPSULE (5,000 UNITS) PO (09:42)
[2021-09-19] MEDS: Senna/Docusate Sodium 1 Tablet 2 TABLET PO ×2 (09:42→21:33)
[2021-09-19] MEDS: Ferrous Sulfate 325 MG Tablet PO (09:42)
[2021-09-19] MEDS: Menthol/Lanolin/Calamine/Znox 113 GM Tube 1 APPLIC TOPICAL ×2 (09:46→21:33)
[2021-09-19] MEDS: Nystatin Powder 15gm Bottle 1 APPLIC TOPICAL ×2 (09:49→21:34)
--- NOTE | 2021-09-19 12:15 | PN_ITS ---
Subjective Subjective Day #3 cefepime. Kofi was seen on TEAM rounds today. Afebrile VSS Maintaining appropriate oxygen saturation on RA Oral intake is good Discussed with nursing - urine is thalia and concentrated. He is on fluid re striction for SIADH BUT, on 09/18 he had 1490 in (1200 cc restriction) The day before he only took 750. Reviewed the PT/OT notes Medication list reviewed. The urine culture grew mixed GM +'s and GM negatives. He is AF and asymptomatic. the previous culture at admission grew Pseudomonas and he has in the past had intermediate resistance to FW's. He denies dysuria today. He also denies chest pain, shortness of breath, palpitations, lightheadedness, nausea/vomiting/abdominal pain/flank pain, urinary frequency. He has been taking only Tylenol for pain. Objective Data Objective Data Vital Signs: Vital Signs Temp Pulse Resp BP Pulse Ox 97.4 F L 80 18 141/69 H 94 09/19/21 07:36 09/19/21 07:36 09/19/21 07:36 09/19/21 07:36 09/19/21 07:36 Oxygen Delivery Method Room Air Weight: 139 lb 8.842 oz Body Mass Index (BMI) 19.3 Intake & Output: Intake and Output for Last 24 Hours 09/17/21 09/18/21 09/19/21 23:59 23:59 23:59 Intake Total 753.5 / 753.5 1490 / 1490 600 / 600 Output Total 600 / 600 1125 / 1125 500 / 500 Balance 153.5 / 153.5 365 / 365 100 / 100 Lab / Micro Data Result Diagrams: 09/20/21 05:27 09/20/21 05:27 Micro: Microbiology 09/17/21 12:30 Urine, Random Urine Culture - Final Mixed Gram Pos & Gram Neg Org 09/08/21 00:55 Urine, Clean Catch Urine Culture - Final GNR Poss Pseudomonas sp Physical Exam Narrative alert and oriented X 3. Lying in bed and appears comfortable. Const alert, oriented x3 and no apparent distress Constitutional Narrative: He is well kempt and appropriate. General Appearance: cooperative and comfortable HEENT head/scalp atraumatic Eyes EOMs intact bilaterally, conjunctivae normal and no scleral icterus Eyes Narrative: No scleral icterus, no conjunctival irritation and no discharge from the eyes. General Eye: normal appearance of both eyes Conjunctiva: conjunctiva normal Sclera: sclera normal Neck no lymphadenopathy, supple, no JVD and no carotid bruits Neck Narrative: No carotid bruits, the neck is supple, no JVD. General: trachea midline Chest Chest: symmetrical chest wall rise Resp normal respiratory effort, no use of accessory muscles and clear to auscultation bilaterally Resp Narrative: Diminished in all lung manzo but clear to auscultation. No conversational dyspnea. Not tachypneic and no accessory muscle use. Not tachypneic with ambulation. Effort and Inspection: able to speak in complete sentences Cardio regular rate, regular rhythm, S1 normal heart sound, S2 normal heart sound, no murmurs, no rub and no gallops GI normal to inspection, nondistended, normoactive bowel sounds, non-tender and non-distended Narrative: Bladder is not distended Extremity normal capillary refill, no clubbing, cyanosis or edema, no calf tenderness and no pedal edema Extremity Narrative: No peripheral edema. Skin General Skin Exam: no breakdown Wound Narrative: Incisions are intact without dehiscence. There is no erythema, discharge or increased warmth to touch in the josuha-incisional area. Swelling has decreased significantly and the ecchymosis is resolving. Neuro oriented x3, CN's II-XII intact bilaterally and no focal motor deficits Sensorium / Orientation: alert Motor Exam: strength 5/5 throughout Psych affect normal Psych Narrative: appropriate, makes good eye contact Attitude: calm and engaged Speech: normal speech Thought Process: normal thought process Attention / Concentration: attention grossly intact Memory / Cognition: memory grossly intact Assessment & Plan Assessment/Plan (1) Closed intertrochanteric fracture of left femur: QUALIFIERS: Encounter type: subsequent encounter Fracture alignment: nondisplaced PLAN: Making good progress in therapy and will be ready to go home with [facility] on Thursday (2) History of open reduction and internal fixation (ORIF) procedure: PLAN: He will follow up with Dr. Holugin post discharge to get the migue out. He knows the hip precautions. (3) Hematuria: PLAN: microscopic. (4) History of SIADH: PLAN: the sodium is stable at 128 (5) Prostatic cancer: PLAN: Plan 1. BMP, CBC, mag and Phos in the a.m. 2. Continue therapy in anticipation of discharging home with [facility]. 3. He will follow-up with Dr. Holguin for staple removal, Dr. Walters to treat hyper thyroidism and SIADH, Dr. Hollingsworth for R hydroureter and hydronephrosis and a JJ stent that he has not had checked in 2 years. Charges/Coding Visit Charges Inpatient E&M: 32963 Subs Hosp L2
--- NOTE | 2021-09-19 14:35 | CASEMGMT ---
Social Work IDT met with patient, , dtr and ROBIN for Team meeting. Discussed patient's progress in PT/OT/SN. Medicare approved 15 days. Pt to DC home with 09/21. Pt requesting HHC. Provided HH list with quality and resource data. Pt prefers [facility]. Referral made for PT/OT/SN/LOPEZ. Pt needing FWW. Referral made to [facility]. to transport pt. Plan: DC home with 09/21, [facility] PT/OT/SN/LOPEZ, FWW Lizzy Benson, CELLOPHANER OIL RAG WASHER
[2021-09-19 19:27] VITALS: BP 110/64; PULSE 76; RESP 18; TEMP 36.7; O2SAT 95
[2021-09-19] MEDS: Gabapentin 100 MG Capsule 200 MG PO (21:32)
[2021-09-19 21:35] VITALS: PULSE 76; RESP 18; O2SAT 95
[2021-09-20] MEDS: Acetaminophen 500 MG Tablet 1000 MG PO ×3 (05:30→21:55)
[2021-09-20 05:49] LABS: Hematocrit 27.9 % (40-54); Hemoglobin 9.1 g/dL (13.0-16.5); Mean Corp Hgb Conc 32.6 g/dL (32-36); Mean Corpuscular Volume 98.2 fL (80-94); Mean Platelet Vol. 8.3 fl (6.2-12.0); Platelet Count 276 K/mm3 (150-450); RBC Distribution Width CV 15.3 % (11.6-14.6); RBC Distribution Width SD 54.4 fl (35.1-43.9); Red Blood Count 2.84 M/mm3 (4.6-6.2)
[2021-09-20 06:19] LABS: Anion Gap 6 (5-15); BUN 24 mg/dL (7-18); BUN/Creat Ratio 28.3 RATIO (10-20); Calcium,Total 8.5 mg/dL (8.5-10.1); Chloride 100 mmol/L (98-107); Creatinine, Serum 0.85 mg/dL (0.70-1.30); EST Glomerular Filtration Rate 91 mL/min (>60); Est Glom Filt Rate - Afr Amer 110 mL/min (>60); Estimated Creatinine Clearance 56.89 ml/min; Glucose 89 mg/dL (74-106); Magnesium 2.3 mg/dL (1.6-2.6); Potassium 4.1 mmol/L (3.5-5.1); Sodium Level 133 mmol/L (136-145)
[2021-09-20 06:26] LABS: Phosphorus 2.9 mg/dL (2.5-4.9)
[2021-09-20 07:51] VITALS: BP 120/64; PULSE 70; RESP 16; TEMP 36.7; O2SAT 96
[2021-09-20] MEDS: Calcium Carbonate 500 MG Tablet PO ×2 (09:21→16:44)
[2021-09-20] MEDS: APIXABAN 2.5 MG TABLET PO ×2 (09:22→20:31)
[2021-09-20] MEDS: Magnesium Chloride 64 MG Delay Rel.Tablet 128 MG PO (09:22)
[2021-09-20] MEDS: Senna/Docusate Sodium 1 Tablet 2 TABLET PO (09:22)
[2021-09-20] MEDS: Ascorbic Acid 500 MG Tablet PO ×2 (09:22→16:44)
[2021-09-20] MEDS: Cholecalciferol (Vit D3) 125 MCG CAPSULE (5,000 UNITS) PO (09:23)
[2021-09-20] MEDS: Menthol/Lanolin/Calamine/Znox 113 GM Tube 1 APPLIC TOPICAL ×2 (09:28→20:31)
[2021-09-20] MEDS: Nystatin Powder 15gm Bottle 1 APPLIC TOPICAL ×2 (09:29→20:31)
--- NOTE | 2021-09-20 12:48 | PCM.PN.BLA ---
Progress Note Afebrile VSS Maintaining appropriate oxygen saturation on RA Oral intake yesterday was 2500 and output was 1300. Discussed with nursing - no problems that need addressed Reviewed the PT/OT notes Medication list reviewed. All lab was personally reviewed. Sodium is up to 133 today. Potassium is 4.1. The BUN is 24 and the creatinine is stable at 0.85. Calcium, phosphorus and magnesium are all within normal limits. Tells me that his pain is adequately controlled with just Tylenol. He does not want oxycodone to go home with. He is sleeping well. No complaints today. Denies CP, SOB, calf pain. Feels ready to get home. His is going to quit here job to be home with him. Physical Exam Const alert, oriented x3 and no apparent distress Constitutional Narrative: pleasant, talkative, good eye contact. I observed him walking today and he is walking in a reciprocal patter with the WW and pace has increased and is not leaning heaVily on the walker any more. General Appearance: cooperative and comfortable HEENT normocephalic HEENT Narrative: MM are less dry today and he seems to have more energy. Not napping today. Resp Resp Narrative: Diminished but CTA. No tachypnea, even with ambulation. No conversational dyspnea. Cardio Cardio Narrative: RRR, no gallop and no MM GI GI Narrative: soft, NT, ND with normal BS's Extremity Extremity Narrative: The left hip incision is intact with no purulent DC and no erythema. the bruising is resolving and the edema is down considerably since admission. Skin Skin Narrative: No rashes and no breakdown Assessment & Plan Assessment/Plan (1) History of open reduction and internal fixation (ORIF) procedure: (2) History of SIADH: (3) DVT prophylaxis: (4) Acute blood loss anemia: (5) Hydronephrosis: QUALIFIERS: Hydronephrosis type: unspecified Qualified Code(s): N13.30 - Unspecified hydronephrosis (6) Closed intertrochanteric fracture of left femur: QUALIFIERS: Encounter type: subsequent encounter Fracture alignment: nondisplaced (7) Hyperthyroidism: PLAN: Plan 1. Plan DC for tomorrow - home with [facility]. 2. Follow up with Dr. Holguin, Dr. Walters and Dr. Hollingsworth. 3. Doing very well. Visit Charges Inpatient E&M: 93622 Subs Hosp L1
--- NOTE | 2021-09-20 15:28 | PCM.DC ---
Discharge Instructions Diet Discharge Diet: No restrictions and - (Do Not drink more than 50 ounces of fluid a day. ) Activity Discharge Activity: May Not Drive, May Shower (No tub baths. ) and Use Walker Weight Bearing Status: Full weight bearing Keep extremity elevated above heart level: Left Leg Dressing / Incision Call your doctor if your incision/area has: Continuous Slow Oozing, Sudden Increased Bleeding, Increased Pain/ Swelling, Increased Redness and Foul Smelling Discharge Call your doctor if you observe: Fever of 101 or Higher (Fever > 100.4 F), Inability to urinate, Shortness of breath, Dizziness, Fainting spells, Chest pain, Increased palpitations (irregular heartbeat), Calf discomfort and Uncontrolled pain Suture Line Care: Avoid Pulling/Pushing and Avoid Pinching/Bending Change Dressing in: 1 day Remove Dressing in: 1 day (You do not need to apply a dressing but, if it keeps it from getting irritated by your pants you can apply a dry dressing. ) Cleanse incision/area with: Soap & Water Follow Up Care Please Follow Up With: Hitesh Holguin DO When: Thursday in the office to have the migue removed. Test Results: Test results from this visit will be discussed in further detail at your follow-up appointment, if applicable. Pending Tests Upon Discharge: none Discharge Plan Admission Admit Date/Time: 09/07/21 14:15 Primary Reason for Your Visit: Left hip fracture due to a fall. Attending Provider: Karla Gauthier Primary Care Provider: Care Physician,No Primary Instructions Additional Instructions / Restrictions: 1. You did great in therapy! I do not think you will have any problems transitioning home. remember your hip precautions. a. No flexing of the hip greater than 90 degrees b. Do not cross your legs c. No twisting 2. Use the walker to keep your balance and prevent falls. 3. You really need to see Dr. Hollingsworth. 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 4. Your thyroid gland is overactive. At least the lab is abnormal. I am referring you to Dr. Walters who is an analog circuit designer (that is a doctor who takes care of patients with gland problems). She can also take care of you for the low Sodium/SIADH. Her office is on [address]. 5. Your new family doctor will be Dr. Johnny Shelton. He is a great nellie and will take good care of you. His office is on [address] behind [employer] [employer]. It will be the first office on the left after you turn onto [address]. 6. It has been a pleasure to meet you Kofi. If you have any questions after you leave the rehab unit please do not hesitate to call me. Office: [phone] If you or Nori ever need our services in the future we will be happy to care for you guys anytime. Discharge Orders/Prescriptions Prescriptions: New calcium carbonate 200 mg calcium (500 mg) Tablet,Chewable 500 mg PO BIDCM Qty: 0 0RF gabapentin 100 mg Capsule 300 mg PO 1999 Qty: 30 0RF Rx Instructions: take this 1 hour prior to going to bed Mag 64 64 mg Tablet,Delayed Release (Dr/Ec) 64 mg PO DAILY Qty: 30 0RF Continued Eliquis 2.5 mg tablet 2.5 mg PO BID Qty: 16 0RF Changed sennosides-docusate sodium [Stool Softener-Stimulant Laxat] 8.6-50 mg tablet 1 tab PO BID Qty: 60 0RF ascorbic acid (vitamin C) 500 mg tablet 500 mg PO LUNCH Qty: 30 0RF Rx Instructions: Take with the iron supplement calcitriol 0.25 mcg capsule 0.25 mcg PO DAILY Qty: 30 0RF Auryxia 210 mg iron tablet 210 mg PO LUNCH Qty: 90 0RF Rx Instructions: administer with lunch and the vitamin C tablet acetaminophen 500 mg tablet 1,000 mg PO Q8 PRN (Reason: pain) Qty: 1 0RF Discontinued calcium carbonate 200 mg calcium (500 mg) tablet,chewable 500 mg PO TIDCM oxycodone 5 mg tablet 5 mg PO Q4H PRN PRN (Reason: Pain (Scale Score 7-10)) Referrals / Follow Up: Gildardo Hollingsworth MD [STAFF PHYSICIAN] - (the office will call you to make appt. if you don't hear from them in a week call the office) Johnny Shelton DO [STAFF PHYSICIAN] - In 1 Week Hitesh Holguin DO [STAFF PHYSICIAN] - 06/27/22 1:30 pm Heriberto Walters MD [STAFF PHYSICIAN] - (referral sent to Dr walters the office will call you to make appt.) Disposition Disposition (needs filled in before D/C Order can be placed): Home Health Service
--- NOTE | 2021-09-20 16:09 | DS.PCM_ITS ---
Providers Date of Admission: 09/07/21 Date of Discharge: 09/21/21 Primary Care Physician: Dr. Johnny Shelton DO Reason For Visit: HIP FRACTURE DUE TO A FALL Diagnosis Discharge Diagnosis (1) Closed intertrochanteric fracture of left femur: Status: Acute Code(s): S72.142A - Displaced intertrochanteric fracture of left femur, initial encounter for closed fracture Qualifiers: Encounter type: subsequent encounter Fracture alignment: nondisplaced (2) History of open reduction and internal fixation (ORIF) procedure: Status: Acute Code(s): Z98.890 - Other specified postprocedural states Plan: Left hip by Dr. Holguin on 09/05/21......cephalomeduallary nailing. Has appt with Dr. Holguin on 09/23/21 to have the migue removed. (3) Acute blood loss anemia: Status: Acute Code(s): D62 - Acute posthemorrhagic anemia Plan: Stable, the hemoglobin is 9.7 1-day prior to discharge. He will continue an iron supplement with vitamin C once daily. (4) DVT prophylaxis: Status: Acute Code(s): Z29.9 - Encounter for prophylactic measures, unspecified Plan: Elquis 2.5 mg BID for 35 days post op. #16 tabs at [place]. (5) History of SIADH: Status: Acute Code(s): Z86.39 - Personal history of other endocrine, nutritional and metabolic disease Plan: Sodium is 133 at [place] from rehab. Will follow up with Dr. Mckay for this in addition to the elevated T4 and decreased TSH. (6) Hydronephrosis: Status: Chronic Code(s): N13.30 - Unspecified hydronephrosis Qualifiers: Hydronephrosis type: unspecified Qualified Code(s): N13.30 - Unspecifi ed hydronephrosis Plan: R hydronephrosis and hydroureter. Has a JJ stent on the R and has not seen Dr. Hollingsworth in 2 years (since [facility]). Will follow up with Dr. Hollingsworth. (7) Hyperthyroidism: Status: Acute Code(s): E05.90 - Thyrotoxicosis, unspecified without thyrotoxic crisis or storm Plan: TSH is low at 0.25. The free T4 is elevated at 1.74. Antithyroid antibodies are negative. He is going to follow up with Dr. Mckay. (8) Leukopenia: Status: Acute Code(s): D72.819 - Decreased white blood cell count, unspecified Plan: Etiology undetermined at the time of DC from rehab. He will follow up with Dr. Johnny Shelton for his new PCP and he will address this. (9) Sciatica of left side: Status: Acute Code(s): M54.32 - Sciatica, left side Plan: No complaints of L buttock pain since Gabapentin was started at Bedtime and he is sleeping much better. Plan DC home on 09/21/21 with [facility]. Medications at Discharge Home Medications acetaminophen 500 mg tablet 1,000 mg PO Q8 PRN pain #1 TAB 09/20/21 apixaban 2.5 mg tablet (Eliquis) 2.5 mg PO BID blood thinner #16 tabs 09/20/21 ascorbic acid (vitamin C) 500 mg tablet 500 mg PO LUNCH vitamin #30 tabs 09/20/21 calcitriol 0.25 mcg capsule 0.25 mcg PO DAILY #30 caps 09/20/21 calcium carbonate 200 mg calcium (500 mg) chewable tablet 500 mg PO BIDCM #0 tabs 09/20/21 ferric citrate 210 mg iron tablet (Auryxia) 210 mg PO LUNCH #90 tabs 09/20/21 gabapentin 100 mg capsule 300 mg PO 2000 #30 caps 09/20/21 magnesium chloride 64 mg (magnesium chloride) tablet,delayed release (Mag 64) 64 mg PO DAILY #30 tabs 09/20/21 sennosides 8.6 mg-docusate sodium 50 mg tablet (Stool Softener-Stimulant Laxative) 1 tab PO BID stool softener #60 tabs 09/20/21 Hospital Course Operations - (Open reduction internal fixation with cephalomedullary nailing on 09/05/[address] Hitesh Holguin) Procedures None Summary of Care Provided Minutes Spent on Discharge: 40 Physical Exam Narrative alert and oriented X 3. Lying in bed and appears comfortable. Const alert, oriented x3 and no apparent distress Constitutional Narrative: pleasant, talkative, good eye contact. I observed him walking and he is walking in a reciprocal patter with the WW and pace has increased and is not leaning heaVily on the walker any more. General Appearance: cooperative and comfortable HEENT normocephalic and head/scalp atraumatic Eyes EOMs intact bilaterally, conjunctivae normal and no scleral icterus Eyes Narrative: No scleral icterus, no conjunctival irritation and no discharge from the eyes. General Eye: normal appearance of both eyes Conjunctiva: conjunctiva normal Sclera: sclera normal Neck no lymphadenopathy, supple, no JVD and no carotid bruits Neck Narrative: No carotid bruits, the neck is supple, no JVD. General: trachea midline Lymph Lymphatic: no lymphadenopathy noted Chest Chest: symmetrical chest wall rise Resp normal respiratory effort, no use of accessory muscles and clear to auscultation bilaterally Resp Narrative: Diminished but CTA. No tachypnea, even with ambulation. No conversational dy spnea. Effort and Inspection: able to speak in complete sentences Cardio regular rate, regular rhythm, S1 normal heart sound, S2 normal heart sound, no murmurs, no rub and no gallops Cardio Narrative: RRR, no gallop and no MM GI normal to inspection, nondistended, normoactive bowel sounds, non-tender and non-distended GI Narrative: soft, NT, ND with normal BS's Narrative: Bladder is not distended Extremity normal capillary refill, no clubbing, cyanosis or edema, no calf tenderness and no pedal edema Extremity Narrative: The left hip incision is intact with no purulent DC and no erythema. the bruising is resolving and the edema is down considerably since admission. Skin no rashes or lesions noted and no jaundice Skin Narrative: No rashes and no breakdown General Skin Exam: no breakdown Wound Narrative: Incisions are intact without dehiscence. There is no erythema, discharge or increased warmth to touch in the joshua-incisional area. Swelling has decreased significantly and the ecchymosis is resolving. Neuro oriented x3, CN's II-XII intact bilaterally and no focal motor deficits Sensorium / Orientation: alert Motor Exam: strength 5/5 throughout Psych affect normal Psych Narrative: appropriate, makes good eye contact Appearance: appropriate Attitude: calm and engaged Speech: normal speech Thought Process: normal thought process Attention / Concentration: attention grossly intact Memory / Cognition: memory grossly intact Weight / BMI Weight Weight: 135 lb 12.876 oz Body Mass Index (BMI) 19.3 ABG / Lab / Microbiology Data Result Diagrams: 09/20/21 05:27 09/20/21 05:27 Laboratory: Laboratory Results - last 24 hr 09/20/21 05:27: WBC 4.0 L, RBC 2.84 L, Hgb 9.1 L, Hct 27.9 L, MCV 98.2 H, MCH 32.0, MCHC 32.6, RDW Std Deviation 54.4 H, RDW Coeff of Michael 15.3 H, Plt Count 276, MPV 8.3 09/20/21 05:27: Sodium 133 L, Potassium 4.1, Chloride 100, Carbon Dioxide 27.0, Anion Gap 6, BUN 24 H, Creatinine 0.85, Estim Creat Clear Calc 56.89, Est GFR (MDRD) Af Amer 110, Est GFR (MDRD) Non-Af 91, BUN/Creatinine Ratio 28.3 H, Glucose 89, Calcium 8.5, Magnesium 2.3 09/20/21 05:27: Phosphorus 2.9 Microbiology: Microbiology 09/17/21 12:30 Urine, Random Urine Culture - Final Mixed Gram Pos & Gram Neg Org 09/08/21 00:55 Urine, Clean Catch Urine Culture - Final GNR Poss Pseudomonas sp D/C Instructions Discharge Diet: No restrictions and - (Do Not drink more than 50 ounces of fluid a day. ) Weight Bearing Status: Full weight bearing Keep extremity elevated above heart level: Left Leg Call your doctor if your incision/area has: Continuous Slow Oozing, Sudden Increased Bleeding, Increased Pain/ Swelling, Increased Redness and Foul Smelling Discharge Call your doctor if you observe: Fever of 101 or Higher (Fever > 100.4 F), Inability to urinate, Shortness of breath, Dizziness, Fainting spells, Chest pain, Increased palpitations (irregular heartbeat), Calf discomfort and Uncontrolled pain Suture Line Care: Avoid Pulling/Pushing and Avoid Pinching/Bending Cleanse incision/area with: Soap & Water Pending Tests Upon Discharge: none Please Follow Up With: Hitesh Holguin DO When: Thursday in the office to have the migue removed. Meaningful Use Info Meaningful Use Diagnoses (Choose all that apply): None applicable Discharge Plan Admission Admit Date/Time: 09/07/21 14:15 Primary Reason for Your Visit: Left hip fracture due to a fall. Attending Provider: Karla Gauthier Primary Care Provider: Care Physician,No Primary Instructions Additional Instructions / Restrictions: 1. You did great in therapy! I do not think you will have any problems transitioning home. remember your hip precautions. a. No flexing of the hip greater than 90 degrees b. Do not cross your legs c. No twisting 2. Use the walker to keep your balance and prevent falls. 3. You really need to see Dr. Hollingsworth. 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 4. Your thyroid gland is overactive. At least the lab is abnormal. I am referring you to Dr. Mckay who is an events associate (that is a doctor who takes care of patients with gland problems). She can also take care of you for the low Sodium/SIADH. Her office is on [address] 5. Your new family doctor will be Dr. Johnny Shelton. He is a great nellie and will take good care of you. His office is on [address] behind [address]. It will be the first office on the left after you turn onto [address]. 6. It has been a pleasure to meet you Okfi. If you have any questions after you leave the rehab unit please do not hesitate to call me. Office: [phone] If you or Nori ever need our services in the future we will be happy to care for you guhilary anytime. Discharge Orders/Prescriptions Prescriptions: New calcium carbonate 200 mg calcium (500 mg) Tablet,Chewable 500 mg PO BIDCM Qty: 0 0RF gabapentin 100 mg Capsule 300 mg PO 1999 Qty: 30 0RF Rx Instructions: take this 1 hour prior to going to bed Mag 64 64 mg Tablet,Delayed Release (Dr/Ec) 64 mg PO DAILY Qty: 30 0RF Continued Eliquis 2.5 mg tablet 2.5 mg PO BID Qty: 16 0RF Changed sennosides-docusate sodium [Stool Softener-Stimulant Laxat] 8.6-50 mg tablet 1 tab PO BID Qty: 60 0RF ascorbic acid (vitamin C) 500 mg tablet 500 mg PO LUNCH Qty: 30 0RF Rx Instructions: Take with the iron supplement calcitriol 0.25 mcg capsule 0.25 mcg PO DAILY Qty: 30 0RF Auryxia 210 mg iron tablet 210 mg PO LUNCH Qty: 90 0RF Rx Instructions: administer with lunch and the vitamin C tablet acetaminophen 500 mg tablet 1,000 mg PO Q8 PRN (Reason: pain) Qty: 1 0RF Discontinued calcium carbonate 200 mg calcium (500 mg) tablet,chewable 500 mg PO TIDCM oxycodone 5 mg tablet 5 mg PO Q4H PRN PRN (Reason: Pain (Scale Score 7-10)) Referrals / Follow Up: Gildardo Hollingsworth MD [STAFF PHYSICIAN] - (the office will call you to make appt. if you don't hear from them in a week call the office) Johnny Shelton DO [STAFF PHYSICIAN] - In 1 Week Hitesh Holguin DO [STAFF PHYSICIAN] - 09/23/21 1:30 pm Heriberto Mckay MD [STAFF PHYSICIAN] - (referral sent to Dr mckay the office will call you to make appt.) Disposition Disposition (needs filled in before D/C Order can be placed): Home Health Service Charges/Coding Visit Charges Inpatient E&M: 90668 Disch Hosp
[2021-09-20 19:19] VITALS: BP 116/62; PULSE 76; RESP 16; TEMP 36.7; O2SAT 97
[2021-09-20] MEDS: Gabapentin 100 MG Capsule 200 MG PO (20:28)
[2021-09-20] MEDS: 0.9% Saline Lock 10 ML Syringe IV (20:29)
[2021-09-20 22:00] VITALS: PULSE 78; RESP 16; O2SAT 100
[2021-09-21] MEDS: Acetaminophen 500 MG Tablet 1000 MG PO ×2 (05:14→13:45)
[2021-09-21] MEDS: Calcium Carbonate 500 MG Tablet PO (09:58)
[2021-09-21] MEDS: Ascorbic Acid 500 MG Tablet PO (09:58)
[2021-09-21] MEDS: APIXABAN 2.5 MG TABLET PO (09:58)
[2021-09-21] MEDS: Ferrous Sulfate 325 MG Tablet PO (09:59)
[2021-09-21] MEDS: Senna/Docusate Sodium 1 Tablet 2 TABLET PO (09:59)
[2021-09-21] MEDS: Cholecalciferol (Vit D3) 125 MCG CAPSULE (5,000 UNITS) PO (09:59)
[2021-09-21] MEDS: Magnesium Chloride 64 MG Delay Rel.Tablet 128 MG PO (09:59)
[2021-09-21 10:00] VITALS: BP 129/67; PULSE 66; RESP 16; TEMP 36.3; O2SAT 97
[2021-09-21] MEDS: Menthol/Lanolin/Calamine/Znox 113 GM Tube 1 APPLIC TOPICAL (10:02)
[2021-09-21] MEDS: Nystatin Powder 15gm Bottle 1 APPLIC TOPICAL (10:03)
[2021-09-21 10:07] VITALS: RESP 16
== END 2021-09-21 14:36 | disposition home health service (06) | DRG 560 ==
PROVIDERS: Admitting Provider Internal Medicine; Visit Provider Internal Medicine
DX: S72.142D Displaced intertrochanteric fracture of left femur, subsequent encounter for closed fracture with routine healing (principal); E22.2 Syndrome of inappropriate secretion of antidiuretic hormone; D62 Acute posthemorrhagic anemia; N13.30 Unspecified hydronephrosis; J41.0 Simple chronic bronchitis; M16.0 Bilateral primary osteoarthritis of hip; E05.90 Thyrotoxicosis, unspecified without thyrotoxic crisis or storm; W19.XXXD Unspecified fall, subsequent encounter; Z85.46 Personal history of malignant neoplasm of prostate; Z87.891 Personal history of nicotine dependence; Z79.01 Long term (current) use of anticoagulants; Z79.899 Other long term (current) drug therapy; Z85.118 Personal history of other malignant neoplasm of bronchus and lung
CPT/HCPCS: 36415; 80048; 80053; 81001; 82533; 83735; 83930; 83935; 84100; 84300; 84439; 84443; 85025; 85027; 87086; 87088; 97110; 97116; 97162; 97165; 97530; 97535; 97802; 97803; 99406; J7050; A4216

== ENCOUNTER 2021-10-02 05:57 | Day surgery (SDC) | payer MEDICARE, OTHER, SELFPAY ==
[2021-09-09 14:02] VITALS: BMI 19.5
[2021-10-02] MEDS: Lactated Ringers 1,000 ML 15 ML IV (06:38)
[2021-10-02 06:39] VITALS: BP 128/68; PULSE 79; RESP 16; TEMP 37.2; O2SAT 97; BMI 19.5
[2021-10-02] MEDS: Cefazolin 2 GM in 0.9% Normal Saline 100 ML IV (07:29)
[2021-10-02] MEDS: Lidocaine Jelly 2% 20 ML Syringe (URO-JET) 1 APPLIC (07:41)
--- NOTE | 2021-10-02 07:59 | DCINST_ITS ---
Discharge Instructions Diet Discharge Diet: No restrictions Activity Discharge Activity: Return to Normal Activity Follow Up Care Please Follow Up With: Gildardo Hollingsworth MD When: next week to d/c cecilio then I need to see him in 4 months to plan next change of stent Test Results: Test results from this visit will be discussed in further detail at your follow- up appointment, if applicable. Discharge Plan Admission Primary Reason for Your Visit: stent change Attending Provider: Gildardo Hollingsworth Primary Care Provider: Care Physician,No Primary Discharge Orders/Prescriptions Prescriptions: New ciprofloxacin HCl [Cipro] 500 mg tablet 500 mg PO BID Qty: 10 0RF Continued Mag 64 64 mg Tablet,Delayed Release (Dr/Ec) 64 mg PO DAILY Qty: 30 0RF calcitriol 0.25 mcg capsule 0.25 mcg PO DAILY Qty: 30 0RF acetaminophen 500 mg tablet 1,000 mg PO Q8 PRN (Reason: pain) Qty: 1 0RF ferrous sulfate 325 mg (65 mg iron) Tablet 325 mg PO DAILY gabapentin 100 mg capsule 300 mg PO QHS Rx Instructions: take this 1 hour prior to going to bed Referrals / Follow Up: Gildardo Hollingsworth MD [STAFF PHYSICIAN] - Care Physician,No Primary [Primary Care Provider] - Disposition Disposition (needs filled in before D/C Order can be placed): Home, Self Care
--- NOTE | 2021-10-02 07:59 | PCM.OPRPT ---
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 Description of Surgical Findings:: Patient was taken back to the operating room after induction of general anesthesia, the patient was placed in dorsolithotomy position. The urethra and genitals were prepped and draped in usual sterile fashion. Using a 21 Tamazight rigid cystourethroscope the entire length of the urethra was normal then went into the bladder. Identified the trigone the left and right ureteral orifice. I then cannulated the Right orifice and advanced a wire up into the kidney. I then backloaded a 5 Tamazight open ended catheter over the wire and injected contrast to delineate the anatomy. He had severe hydronephrosis. After the retrograde was performed I then used fluoroscopic images and guidance to advanced a wire up into the kidney and over the 0.038 glidewire I advanced a 6 Tamazight by 26 cm double pigtail stent. I then pulled the 0.038 Glidewire off and the stent coiled in the kidney bladder good position. The bladder was then drained. We confirmed the position of the stent by fluoroscopy. Patient anesthetic was reversed and was taken back to the PACU in good condition. Surgeon: Gildardo Hollingsworth Type of Anesthesia: General Drains: stent Admit VTE Documentation VTE Present on Admission: No VTE Mechan Device Prophylaxis: SCD's
[2021-10-02 08:00] VITALS: BP 106/63; BP 128/68; PULSE 66; RESP 16; TEMP 36.6; O2SAT 99
[2021-10-02 08:05] VITALS: BP 106/71; BP 128/68; PULSE 66; RESP 16; O2SAT 100
[2021-10-02 08:10] VITALS: BP 108/63; BP 128/68; PULSE 69; RESP 16; O2SAT 95
[2021-10-02 08:15] VITALS: BP 128/68
[2021-10-02 08:35] VITALS: BP 128/68
== END 2021-10-02 09:01 | disposition home or self-care (01) ==
LOC: SDC 06:00 → AC 06:00
PROVIDERS: Referring Provider Urology; Visit Provider Urology
PROC: (CPT 52332; principal; 2021-10-02 07:20)
DX: N13.1 Hydronephrosis with ureteral stricture, not elsewhere classified (principal); C61 Malignant neoplasm of prostate; N40.1 Benign prostatic hyperplasia with lower urinary tract symptoms; M19.90 Unspecified osteoarthritis, unspecified site; Z79.01 Long term (current) use of anticoagulants; Z79.82 Long term (current) use of aspirin; Z79.899 Other long term (current) drug therapy; Z87.891 Personal history of nicotine dependence
CPT/HCPCS: 52332; 00910; 76000; J7120; C1769; C2617; J2405

== ENCOUNTER → 2021-10-10 | Outpatient (CLI) | payer MEDICARE, OTHER, SELFPAY ==
[2021-09-09 14:02] VITALS: BMI 19.5
[2021-10-10 16:34] LABS: ALB/GLOB Ratio 0.8 RATIO (0.9-2.4); AST(SGOT) 19 U/L (15-37); Alanine Aminotransfer ALT/SGPT 14 U/L (16-61); Albumin, Serum 3.1 g/dL (3.2-5.0); Alkaline Phosphatase 173 U/L (45-117); Anion Gap 3 (5-15); BUN 12 mg/dL (7-18); BUN/Creat Ratio 12.4 RATIO (10-20); Calcium,Total 8.6 mg/dL (8.5-10.1); Chloride 103 mmol/L (98-107); Creatinine, Serum 0.97 mg/dL (0.70-1.30); EST Glomerular Filtration Rate 78 mL/min (>60); Est Glom Filt Rate - Afr Amer 95 mL/min (>60); Free T3 2.3 pg/mL (2.18-3.98); Globulin 3.8 g/dL (2.2-4.2); Glucose 94 mg/dL (74-106); Osmolality, Serum 282 mOsm/KG (280-301); Potassium 4.2 mmol/L (3.5-5.1); Protein, Total 6.9 g/dL (6.4-8.2); Sodium Level 137 mmol/L (136-145); Thyroid Stim Hormone (TSH) 0.77 uIU/mL (0.358-3.74)
== END | disposition home or self-care (01) ==
LOC: LAB 15:20
PROVIDERS: Visit Provider Internal Medicine Endocrinology, Diabetes & Metabolism
DX: E87.1 Hypo-osmolality and hyponatremia (principal); E05.90 Thyrotoxicosis, unspecified without thyrotoxic crisis or storm; Z86.39 Personal history of other endocrine, nutritional and metabolic disease
CPT/HCPCS: 36415; 80053; 83930; 84439; 84443; 84481

== ENCOUNTER → 2021-10-15 | Outpatient (CLI) | payer MEDICARE, OTHER, SELFPAY ==
[2021-09-09 14:02] VITALS: BMI 19.5
[2021-10-15 12:11] LABS: PSA,Total- Diagnostic 0.15 ng/mL (0.0-4.0)
== END | disposition home or self-care (01) ==
LOC: LAB 11:00
PROVIDERS: Referring Provider Internal Medicine Pulmonary Disease; Visit Provider Internal Medicine Pulmonary Disease
DX: C61 Malignant neoplasm of prostate (principal)
CPT/HCPCS: 36415; 84153

== ENCOUNTER → 2021-11-13 | Outpatient (CLI) | payer MEDICARE, OTHER, SELFPAY ==
[2021-09-09 14:02] VITALS: BMI 19.5
--- NOTE | 2021-11-13 13:51 | RAD_ITS ---
EXAM: XR CHEST, 2 VIEWS CLINICAL INDICATION: R91.1/J44.9 TECHNIQUE: Frontal and lateral views of the chest. This report was created using [employer] report generation technology. COMPARISON: XR Chest dated may 26 2021 FINDINGS: LUNGS AND PLEURAL SPACES: Hyperinflation suggesting emphysema. Reticular density right lung base unchanged consistent with pulmonary scarring. No pneumothorax. No effusion. HEART: Normal. Normal heart size. MEDIASTINUM: Central airways and mediastinal contour are unremarkable. BONES/JOINTS: No acute abnormality. SOFT TISSUES: Normal. TUBES, LINES AND DEVICES: Portion of a right double-J ureteral stent catheter is noted. RAD/Chest PA and Lateral IMPRESSION: COPD. Right basilar pulmonary scarring. Electronically Signed: Hakeem Damon MD at 14:39 EDT ,
== END | disposition home or self-care (01) ==
LOC: RAD 13:50
PROVIDERS: Referring Provider Internal Medicine Pulmonary Disease; Visit Provider Internal Medicine Pulmonary Disease
DX: J44.9 Chronic obstructive pulmonary disease, unspecified (principal); R91.1 Solitary pulmonary nodule
CPT/HCPCS: 71046

== ENCOUNTER → 2022-02-03 | Outpatient (CLI) | payer MEDICARE, OTHER, SELFPAY ==
[2021-09-09 14:02] VITALS: BMI 19.5
[2022-02-03 14:43] LABS: PSA,Total- Diagnostic 0.19 ng/mL (0.0-4.0)
== END | disposition home or self-care (01) ==
LOC: LAB 13:46
PROVIDERS: Referring Provider Urology; Visit Provider Urology
DX: C61 Malignant neoplasm of prostate (principal)
CPT/HCPCS: 36415; 84153

== ENCOUNTER 2022-02-23 17:30 | Emergency (ER) | payer MEDICARE, OTHER, SELFPAY ==
[2021-09-09 14:02] VITALS: BMI 19.5
[2022-02-23 17:32] VITALS: BP 121/78; PULSE 93; RESP 20; TEMP 37.1; O2SAT 94; BMI 18.8
[2022-02-23 18:07] VITALS: BP 121/78; PULSE 93; RESP 20; TEMP 37.1; O2SAT 94
--- NOTE | 2022-02-23 18:15 | RAD_ITS ---
STUDY: XR Chest 1 View 02/23/2022 6:11 PM REASON FOR EXAM: Male, 86 years old. CHEST PAIN Cough, bilateral rales, positive COVID test COMPARISON: 11/13/2021 TECHNIQUE: XR Chest 1 View FINDINGS: There is no demonstrated pleural abnormality. Normal heart size. Normal mediastinum. Normal bryan. Prominent appearing increased interstitial lung markings. Normal visualized pulmonary arteries. There is atherosclerotic calcification of the aortic arch with tortuosity. There are diffuse degenerative changes of the visualized thoracic spine. There is degenerative osteoarthritis of the bilateral shoulders. There is no demonstrated abnormality of the visualized soft tissue structures of the upper abdomen. RAD/Chest 1 View (Portable) IMPRESSION: There are no acute findings. Electronically Signed: Leo Lawrence MD at 18:33 EST ,
--- NOTE | 2022-02-23 18:17 | EX.ED.VIS.UR ---
HPI HPI - URI History of Present Illness Chief Complaint: Cough Detail of Chief Complaint: Cough for several weeks, fatigue and positive COVID test Informant: patient and family Onset/Context/Timing Onset: Yesterday (Fatigued in general weakness started yesterday) and Weeks (Upper respiratory symptoms 4 weeks) Context: Sudden Onset (Regarding vague generalized symptoms) Timing: Continuous Quality: Lack of appetite, no energy, productive cough of colored sputum Current Severity: Mild Maximum Severity: Moderate Worsened by: Not Worsened By Swallowing or Eating Solids Relieved by: Not Relieved By Tylenol Associated Symptoms Associated Symptoms: Positive for Nasal Congestion, Headache, Myalgias, Nausea and Productive Cough (Greenish-altman); Negative for Sinus Pressure, Vomiting, Diarrhea, Shortness of Breath, Chest Pain, Nonproductive cough or Hemoptysis Narrative Narrative: Patient is a 86-year-old male with history of smoking until 3 years ago who presents with cough productive of colored sputum. Also reports Roland exertion and wheezing. He reports subjective fever with chills. Gas from [place] were positive for COVID. Patient had a COVID test today which was positive. He reports decreased appetite. Prior similar symptoms: Yes Recent Illness/Hospitalization: No ROS ROS ED Constitutional Constitutional ED: Reports chills and fever(s); Denies subjective, sweats or weight loss Eyes Eyes: Denies blurry vision, change in vision or diplopia ENT ENT ED: Reports rhinorrhea and sore throat; Denies ear pain Cardiovascular Cardiovascular: Denies chest pain, orthopnea, palpitations, paroxysmal nocturnal dyspnea or racing heartbeat Respiratory/Chest Respiratory/Chest: Reports cough, dyspnea, dyspnea on exertion and sputum; Denies orthopnea or paroxysmal nocturnal dyspnea Gastrointestinal Gastrointestinal: Reports nausea; Denies abdominal pain, constipation, diarrhea, melena or vomiting Genitourinary Genitourinary ED: Denies dysuria, hematuria or urinary frequency Musculoskeletal Musculoskeletal: Reports myalgias; Denies arthralgias, back pain or neck pain Integumentary Denies Abrasions or rash Neurologic Neurologic: Reports weakness; Denies headache(s) or paresthesias Hematologic/Lymphatic Hematologic/Lymphatic: Denies easy bleeding or easy bruising PFSH [facility] Medical History Abnormal results of thyroid function studies Alcohol use Arthritis Back pain Cancer Cholelithiasis Chronic bronchitis Former smoker Heartburn History of edema History of SIADH Hydronephrosis Kidney failure Loss of hearing Low iron Prostate cancer Prostatic cancer Shortness of breath on exertion Wears glasses Wears partial dentures Home Medications acetaminophen 500 mg tablet 1,000 mg PO Q8 PRN pain #1 TAB 09/20/21 [Rx Last Taken Unknown] calcitriol 0.25 mcg capsule 0.25 mcg PO DAILY #30 caps 09/20/21 [Rx Last Taken Unknown] magnesium chloride 64 mg (magnesium chloride) tablet,delayed release (Mag 64) 64 mg PO DAILY #30 tabs 09/20/21 [Rx Last Taken Unknown] ferrous sulfate 325 mg (65 mg iron) tablet 325 mg PO DAILY 09/27/21 [History Last Taken Unknown] gabapentin 100 mg capsule 300 mg PO QHS 09/27/21 [History Last Taken Unknown] ciprofloxacin HCl 500 mg tablet (Cipro) 500 mg PO BID #10 tabs 10/02/21 [Rx Last Taken Unknown] doxycycline monohydrate 100 mg capsule 100 mg PO BID #10 CAPSULES 02/23/22 [Rx Last Taken Unknown] nirmatrelvir 300 mg (150 mg x2)-ritonavir 100 mg tablet,dose pack(EUA) (Paxlovid) See Rx Instructions PO .COMPLEX #30 tabs 02/23/22 [Rx Last Taken Unknown] Allergy/AdvReac Type Severity Reaction Status Date / Time No Known Allergies Allergy Verified 02/23/22 17:31 Family History Other Heart disease Surgical History H/O hernia repair History of open reduction and internal fixation (ORIF) procedure History of renal stent History of transurethral resection of prostate Status post appendectomy Social History household members: spouse and other details: 2 st0ry house. He sleeps downstairs in a recliner. 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 Tobacco: How many years used: 67 how long ago did patient quit smoking: He quit in 2019 alcohol intake: current alcohol intake frequency: holidays/special occasions only substance use type: does not use EXAM Physical Exam Const Vital Signs: 02/23/22 17:32 02/23/22 18:07 02/23/22 18:07 Temperature 98.8 F 98.8 F Temperature Source Temporal Temporal Pulse Rate 93 93 Respiratory Rate 20 H 20 H Respiratory Effort Short of Breath Respiratory Depth Normal Respiratory Pattern Normal Blood Pressure 121/78 H 121/78 H Blood Pressure Mean 92 92 Pulse Ox 94 94 Oxygen Delivery Method Room Air Room Air Room Air 02/23/22 18:45 Temperature Temperature Source Pulse Rate 89 Respiratory Rate 18 Respiratory Effort Respiratory Depth Respiratory Pattern Normal Blood Pressure Blood Pressure Mean Pulse Ox Oxygen Delivery Method Positive well nourished and well developed Constitutional Narrative: Patient appears slightly pale. General Appearance ED: well developed and NAD; Negative for cyanotic, diaphoretic or pallor HEENT Reports moist mucous membranes normocephalic and atraumatic Face and Sinus: Negative for sinus tenderness, maxillary instability or facial tenderness Throat: posterior oropharynx normal Eyes PERRL and EOMs intact bilaterally General Eye ED: Negative for pale conjunctiva or scleral icterus Neck no lymphadenopathy, supple, no meningeal signs and no JVD Resp normal respiratory effort and No clear to auscultation bilaterally Auscultation: rales bilateral mid and wheezes Cardio S1 normal heart sound, S2 normal heart sound and no murmurs Rate: regular rate Rhythm: regular rhythm GI non-tender, non-distended and no masses Back/Spine no CVA tenderness Thoracic Spine / Upper Back: Negative for thoracic spinal tenderness Lumbar Spine / Lower Back: Negative for lumbar spinal tenderness Neuro oriented x3, CN's II-XII intact bilaterally and no sensory deficits noted Sensorium / Orientation: alert Psych mental status grossly normal Skin General Skin Exam: Negative for jaundice or pallor Lesions: no lesions Rashes: no rashes MDM MDM MDM Narrative Medical decision making narrative: With bilateral rales and positive COVID test today x-ray was obtained because of concern of COVID-pneumonia. Suspect patient has also exacerbation of chronic bronchitis. Will obtain chest x-ray, appropriate blood work and treat with aerosols Lab Data Attestation: I reviewed the patient's lab results. Lab results narrative: Patient is neutropenic consistent with COVID infection. Patient's GFR is greater than 60. We will treat with Paxil abed for his COVID-19 infection. Since he is wheeze free will not discharged on prednisone. Since his had a productive cough of green-colored sputum for 1 month and has history of COPD will treat with short course of antibiotics. Labs: Laboratory Results - last 24 hr 02/23/22 02/23/22 18:04 18:04 WBC 2.7 L RBC 4.52 L Hgb 14.0 Hct 42.8 MCV 94.7 H MCH 31.0 MCHC 32.7 RDW Std Deviation 51.5 H RDW Coeff of Michael 14.8 H Plt Count 153 MPV 9.7 Immature Gran % (Auto) 1.100 H Neut % (Auto) 76.1 H Lymph % (Auto) 9.7 L [place] % (Auto) 12.7 H Eos % (Auto) 0.0 Baso % (Auto) 0.4 Absolute Neuts (auto) 2.0 Absolute Lymphs (auto) 0.26 L Nucleated RBC % 0 Differential Comment SCANNED Sodium 135 L Potassium 4.4 Chloride 100 Carbon Dioxide 31.0 Anion Gap 4 L BUN 18 Creatinine 1.14 Estim Creat Clear Calc 40.29 Est GFR (MDRD) Af Amer 78 Est GFR (MDRD) Non-Af 65 BUN/Creatinine Ratio 15.8 Glucose 108 H Calcium 8.3 L Radiography Diagnostic Testing: Clinical Impression(s) from Imaging Studies Chest X-Ray 02/23/22 18:15 IMPRESSION: There are no acute findings. Electronically Signed: Leo Lawrence MD at 18:33 EST Reading Location ID and State: [facility] / [place] , Service support , Single view portable chest x-ray shows chronic changes. There is no infiltrate or effusion. Cardiac silhouette size unremarkable. Perihilar regions unremarkable. Osseous trucks unremarkable. This was independent reviewed interpreted by me. Discharge Plan Triage Chief Complaint: Cough ED Provider: Xavier Rae Dx/Rx/DC Orders Clinical Impression: COVID-19 virus infection, Asthma exacerbation in COPD Instructions: Coronavirus Disease 2019 (COVID-19): Caring for Yourself or Others, ED COPD Flare Prescriptions: New doxycycline monohydrate 100 mg capsule 100 mg PO BID Qty: 10 0RF Paxlovid (EUA) 300 mg (150 mg x 2)-100 mg tablets,dose pack See Rx Instructions .ROUTE .COMPLEX Qty: 30 0RF Rx Instructions: take TWO 150 mg tablets of nirmatrelvir with ONE 100 mg tablet of ritonavir twice daily for 5 days No Action Mag 64 64 mg Tablet,Delayed Release (Dr/Ec) 64 mg PO DAILY Qty: 30 0RF calcitriol 0.25 mcg capsule 0.25 mcg PO DAILY Qty: 30 0RF acetaminophen 500 mg tablet 1,000 mg PO Q8 PRN (Reason: pain) Qty: 1 0RF ferrous sulfate 325 mg (65 mg iron) Tablet 325 mg PO DAILY gabapentin 100 mg capsule 300 mg PO QHS Rx Instructions: take this 1 hour prior to going to bed ciprofloxacin HCl [Cipro] 500 mg tablet 500 mg PO BID Qty: 10 0RF Primary Care Provider: Care Physician,No Primary Referrals: Pascual Shelby MD [Med Staff - Active Staff] - 3-5 Days if not improving Care Physician,No Primary [Primary Care Provider] - Disposition Disposition: Home, Self Care
[2022-02-23 18:28] LABS: Absolute Lymphocyte Count 0.26 X10^3/uL (0.83-4.51); Basophil# 0.01 X10^3/uL; Basophil% 0.4 % (0-1); Hematocrit 42.8 % (40-54); Lymphocyte # 0.26 X10^3/ul (0.83-4.51); Lymphocyte % 9.7 % (19-41); Mean Corp Hgb Conc 32.7 g/dL (32-36); Mean Corpuscular Volume 94.7 fL (80-94); Mean Platelet Vol. 9.7 fl (6.2-12.0); Monocyte# 0.34 X10^3/uL; Monocyte% 12.7 % (0-10); NRBC Flagged by Analyzer 0 % (0-5); Neutrophil # 2.04 X10^3/uL (2.7-7.7); Neutrophil % 76.1 % (47-70); POSITIVE DIFFERENTIAL YES; Platelet Count 153 K/mm3 (150-450); RBC Distribution Width CV 14.8 % (11.6-14.6); RBC Distribution Width SD 51.5 fl (35.1-43.9); Red Blood Count 4.52 M/mm3 (4.6-6.2); White Blood Count 2.7 K/mm3 (4.4-11.0)
[2022-02-23 18:30] LABS: Differential Indicated SCAN CRITERIA MET
[2022-02-23 18:31] LABS: Anion Gap 4 (5-15); BUN 18 mg/dL (7-18); BUN/Creat Ratio 15.8 RATIO (10-20); Calcium,Total 8.3 mg/dL (8.5-10.1); Chloride 100 mmol/L (98-107); Creatinine, Serum 1.14 mg/dL (0.70-1.30); EST Glomerular Filtration Rate 65 mL/min (>60); Est Glom Filt Rate - Afr Amer 78 mL/min (>60); Estimated Creatinine Clearance 40.29 ml/min; Glucose 108 mg/dL (74-106); Potassium 4.4 mmol/L (3.5-5.1); Sodium Level 135 mmol/L (136-145)
[2022-02-23 18:45] VITALS: PULSE 89; RESP 18
[2022-02-23] MEDS: Albuterol 2.5 MG/3 ML VIAL.NEB. INHALATION (18:45)
[2022-02-23] MEDS: Ipratropium/Albuterol Sulfate 3 ML AMPUL.NEB INHALATION (18:45)
[2022-02-23 18:53] LABS: Differential Comment SCANNED
[2022-02-23] MEDS: Doxycycline 100 MG CAPSULE PO (19:48)
[2022-02-23 19:52] VITALS: BP 119/90; PULSE 92; RESP 18; TEMP 37.2; O2SAT 93
[2022-02-24 13:03] LABS: Pathologist Review Reviewed
== END 2022-02-23 20:40 | disposition home or self-care (01) ==
PROVIDERS: Emergency Provider Emergency Medicine; Visit Provider Emergency Medicine
DX: U07.1 COVID-19 (principal); J44.1 Chronic obstructive pulmonary disease with (acute) exacerbation; Z87.891 Personal history of nicotine dependence
CPT/HCPCS: 71045; 80048; 85025; 94640; 99283; A4216

== ENCOUNTER → 2022-03-12 | Outpatient (CLI) | payer MEDICARE, OTHER, SELFPAY ==
[2021-09-09 14:02] VITALS: BMI 19.5
--- NOTE | 2022-03-12 13:48 | ST.MBS ---
Modified Barium Swallow - Patient Information Study Date: 03/12/22 Study Time: 13:00 Direct Billable Minutes: 95 Total Minutes procedure & reportin Diagnosis: Dysphagia, unspecified (R13.10) Referring Physician: Gabriel Guerrero V Reason for Referral: Objectively assess swallow function, assess risk for aspiration, and determine recommendations for least restrictive diet textures and compensatory strategies to improve safety of swallow. Medical History: The patient is an 86-year-old male with PMH including chronic bronchitis, chronic cough, COVID-19 (3 weeks ago), heartburn, and prostate cancer (SEE EMR for full PMH). The patient is not concerned for difficulty swallowing. His reagent tender helper referred him for MBSS to assess concerns for dysphagia and aspiration risk. Current Diet Ordered: Regular textures / Thin liquids Dentition: Partials - upper Mental Status: WNL Respiratory Status: Oxygenating on Room Air - Penetration-Aspiration Scale Penetration-Aspiration Scale: OBJECTIVE ASSESSMENT OF SWALLOW FUNCTION (QUANTITATIVE ? PER TRIAL): PENETRATION / ASPIRATION SCALE (HASKINS): 1 = does not enter airway 2 = enters airway/above vocal folds/ejected 3 = enters airway/above vocal folds/not ejected 4 = enters airway/contacts vocal folds/ejected 5 = enters airway/contacts vocal folds/not ejected 6 = enters airway/below vocal folds/ejected 7 = enters airway/below vocal folds/not ejected despite effort 8 = enters airway/below vocal folds/no effort VIDEOFLOROSCOPIC SCALE SCORE (HASKINS): Grade I = aspiration of material that has penetrated into the laryngeal vestibule, intact cough reflex Grade II = aspiration < 10 % of the bolus, intact cough reflex Grade III = aspiration of < 10 % of the bolus, reduced cough reflex or aspiration of > 10 % of the bolus, intact cough reflex Grade IV = aspiration of > 10 % of the bolus, reduced cough reflex - Penetration-Aspiration Scale Score Thin Liquid via teaspoon Result: 1= does not enter airway Thin Liquid via teaspoon Trial 2 Result: 1= does not enter airway Thin Liquid via small single sip from cup Result: 1= does not enter airway Thin Liquid via sequential sips from cup Result: 1= does not enter airway [place] Thick Liquid via small single sip from cup Result: 1= does not enter airway Honey Thick Liquid via small single sip from cup Result: 1= does not enter airway Pudding via teaspoon with esophageal screen Result: 1= does not enter airway 1/2 Cookie Result: 1= does not enter airway Thin Liquid via single sip from straw Result: 2= enter airway/above vocal folds/ejected - Oral Phase Labial Seal: No Labial Escape Tongue Control During Bolus Hold: Cohesive bolus between tongue to palatal seal Bolus Preparation/Mastication: Slow prolonged chewing/mashing with complete recollection Bolus Transport/Lingual Motion: Brisk tongue motion Oral Residue: Trace residue lining oral structures - Pharyngeal Phase Initiation of Pharyngeal Swallow: Bolus head in valleculae Laryngeal Elevation: Comp. Superior move thyroid cart w/comp. apprx arytenoid cart-epig pet Laryngeal Vestibule Closure at Height of Swallow: Incomplete; narrow column of air/contrast in laryngeal vestibule Pharyngeal Stripping Wave: Present - diminished Tongue Base Retraction: Narrow column of contrast between tongue base & post. pharyngeal wall Pharyngeal Residue: Collection of residue within or on pharyngeal structures - Esophageal Phase Esophageal Clearance: Esophageal retention w/ retrograde flow below pharyngoesophageal seg. - Diagnosis/Impression Diagnosis: Mild pharyngeal dysphagia (R13.12) Impression: The pharyngeal phase is marked by... -Mildly decreased tongue base retraction and mildly decreased pharyngeal contraction with resulting mild pharyngeal residues in the vallecula after the swallow. He independently cleared residues from pharynx with use of double swallows when needed. -Mildly decreased anterior hyoid excursion; however, the patient maintained good airway closure during the study. He presented with no aspiration and only trace laryngeal penetration of thin liquids via straw with full ejection from the laryngeal vestibule. -Pharyngeal residue in the pyriforms mostly due to mild retrograde flow of liquid boluses through the upper esophageal sphincter. Of note, the patient's pyriform sinuses appear to extend anteriorly in the pharynx at the level of the vocal folds - [facility] reviewed images with radiologist, Dr. Rojas, who was not concerned about the shape or position of the pyriforms. Pt has a CP-bar at the level of C6 with trace-mild retention of various liquid consistencies in the UES with retrograde flow to the pharynx as mentioned above. Independent use of double swallows would mostly clear this trace-mild residue in the pyriforms. Pudding cleared from the esophagus in a timely manner. - Recommendations Diet: Regular Textures, Thin Liquids Compensatory Strategies: Small Bites, Small Sips, Slow Rate, Multiple Swallows, Sitting upright, Remain sitting upright for 30 minutes after PO intake Recommend Repeat Modified Barium Swallow: No Need for Skilled Speech Therapy Services: No Comment: Although the patient has mild pharyngeal deficits, he demonstrated good airway protection throughout study, no aspiration, trace laryngeal penetration with full ejection with one trial of thin via straw, and independent use of double swallows as needed to clear oral and pharyngeal residues. He also states that at home he is always the last one finished because he eats and drinks so slowly and takes his time. He did have trace to mild residues in UES with retrograde flow to the pyriforms, which mostly cleared with independent use of a second swallow as needed.The patient denies experiencing any regurgitation of liquids or foods. No GI consult warranted at this time as pt appears to be managing mild retrograde flow with use of a compensatory strategy. If pt begins having sensation of pharyngeal/esophageal retention or regurgitation, would consider GI consult. Education Completed: 1. Described result of evaluation., 5. Patient demonstrates recommended strategies. - Status Active ST Patient: Active - Contact Information [facility] Speech Therapy:: [place] Jasso M.A. [facility] Speech-Language Pathologist [facility] [address] [place] [address] [email or web address] [phone] 03/12/22 14:10
== END | disposition home or self-care (01) ==
LOC: RAD 12:37
PROVIDERS: PCP Family Medicine; Referring Provider Internal Medicine Pulmonary Disease; Visit Provider Internal Medicine Pulmonary Disease
DX: R13.10 Dysphagia, unspecified (principal); R05.9 Cough, unspecified
CPT/HCPCS: 74230; 92611

== ENCOUNTER → 2022-07-02 | Outpatient (CLI) | payer MEDICARE, OTHER, SELFPAY ==
[2021-09-09 14:02] VITALS: BMI 19.5
--- NOTE | 2022-07-02 06:48 | CT_ITS ---
STUDY: CT CHEST WITHOUT CONTRAST REASON FOR EXAM: Male, 86 years old. FOLLOW UP LUNG NODULE RADIATION DOSAGE (If Supplied By Facility): CTDIvol = ( 7.30 ) mGy, DLP = ( 281.00 ) mGycm TECHNIQUE: Transaxial imaging was performed without the administration of intravenous contrast material. Multiplanar coronal and sagittal images were reformatted. Individualized dose optimization techniques were used for this CT. COMPARISON: Comparison is made with prior study dated September 05, 2021. FINDINGS: CHEST Hyperinflation. Emphysematous changes more prominent in the upper lobes. Since prior study, the previously seen irregular infiltrate in the posterior lateral aspect of the right lower lobe adjacent to the right major fissure as clear. Residual soft tissue density and bronchiectasis persist in the posterior medial segment of the right lower lobe although the infiltration has improved. Stable 1.8 signed by 1.1 cm nodule in the posterior medial segment of the left lower lobe. The previously seen adjacent the interstitial markings and bronchiectasis have improved. There is no demonstrated pleural abnormality. There are calcifications of the coronary arteries. Stable mildly enlarged pretracheal lymph node measuring 2 cm x 1.1 cm. Normal hilar regions. Normal unenhanced pulmonary arteries. There is atherosclerotic calcification of the aortic arch with tortuosity and elongation of the aortic arch and descending thoracic aorta. There are multi-level degenerative changes of the thoracic spine. Stable hyperplasia of the left adrenal gland. Small left renal cyst. Nonobstructive 4 mm calculus in the upper pole calyx of the left kidney. A right-sided double-J stent catheter is seen. Multiple small gallstones. CT/Chest without Contrast IMPRESSION: Interval improvement in the patchy infiltrates in the right lower lobe as described with persistent infiltrate in the posteromedial segment of the right lower lobe. Stable nodular density in the posteromedial segment of the left lower lobe with improved aeration and decrease in the surrounding areas of bronchiectasis and scarring. Electronically Signed: Andres Rojas MD at 8:37 EDT ,
== END | disposition home or self-care (01) ==
PROVIDERS: PCP Family Medicine; Referring Provider Internal Medicine Pulmonary Disease; Visit Provider Internal Medicine Pulmonary Disease
DX: R91.1 Solitary pulmonary nodule (principal)
CPT/HCPCS: 71250

== ENCOUNTER → 2022-08-04 | Outpatient (CLI) | payer MEDICARE, OTHER, SELFPAY ==
[2021-09-09 14:02] VITALS: BMI 19.5
== END | disposition home or self-care (01) ==
PROVIDERS: PCP Family Medicine; Visit Provider Urology
DX: R31.9 Hematuria, unspecified (principal)
CPT/HCPCS: 87086; 87088

== ENCOUNTER 2022-10-08 09:19 | Day surgery (SDC) | payer MEDICARE, OTHER, SELFPAY ==
[2021-09-09 14:02] VITALS: BMI 19.5
[2022-10-08 09:58] VITALS: BP 105/77; PULSE 76; RESP 18; TEMP 36.6; O2SAT 97; BMI 18.4
--- NOTE | 2022-10-08 11:12 | DCINST_ITS ---
Discharge Instructions Diet Discharge Diet: No restrictions Activity Discharge Activity: Return to Normal Activity Follow Up Care Please Follow Up With: Gildardo Hollingsworth MD When: 6 months for appt. Test Results: Test results from this visit will be discussed in further detail at your follow- up appointment, if applicable. Discharge Plan Admission Primary Reason for Your Visit: change stent Attending Provider: Gildardo Hollingsworth Primary Care Provider: Johnny Shelton Discharge Orders/Prescriptions Prescriptions: New cephalexin 500 mg capsule 500 mg PO BID Qty: 10 0RF Continued acetaminophen 500 mg tablet 1,000 mg PO Q8 PRN (Reason: pain) Qty: 1 0RF Referrals / Follow Up: Gildardo Hollingsworth MD [Med Staff - Active Staff] - Johnny Shelton DO [Primary Care Provider] - Disposition Disposition (needs filled in before D/C Order can be placed): Home, Self Care
--- NOTE | 2022-10-08 11:12 | HP.PCM_ITS ---
HPI - General General Date of Service: 10/08/22 Chief Complaint: Chronic stent needs changed HPI Narrative ELIESER VILLEGAS, is a 86 M who presents for stent change [facility] Medical History (Updated 03/03/22 @ 00:01 by Maldonado Torrez) Abnormal results of thyroid function studies Alcohol use Arthritis Back pain Cancer Cholelithiasis Chronic bronchitis Former smoker Heartburn History of edema History of SIADH Hydronephrosis Kidney failure Loss of hearing Low iron Prostate cancer Prostatic cancer Shortness of breath on exertion Wears glasses Wears partial dentures Home Medications acetaminophen 500 mg tablet 1,000 mg (2 x 500 mg) PO Q8 PRN pain #1 TAB 09/20/21 [Rx Last Taken Unknown] cephalexin 500 mg capsule 500 mg PO BID #10 caps 10/08/22 [Rx Last Taken Unknown] Allergy/AdvReac Type Severity Reaction Status Date / Time No Known Allergies Allergy Verified 10/08/22 09:57 Family History Other Heart disease Surgical History (Updated 09/29/22 @ 10:48 by Melva Darling) H/O hernia repair History of open reduction and internal fixation (ORIF) procedure History of renal stent History of transurethral resection of prostate Hx of cystoscopy Status post appendectomy Social History household members: spouse and other details: 2 st0ry house. He sleeps downstairs in a recliner. 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 Tobacco: How many years used: 67 how long ago did patient quit smoking: He quit in 2019 alcohol intake: current alcohol intake frequency: holidays/special occasions only substance use type: does not use Vital Signs Vital Signs Vital Signs: 10/08/22 09:58 10/08/22 09:58 Temperature 97.8 F Temperature Source Temporal Pulse Rate 76 Respiratory Rate 18 Respiratory Pattern Normal Blood Pressure 105/77 Blood Pressure Mean 86 Blood Pressure Source Monitor Blood Pressure Position Sitting Blood Pressure Location Left Arm Pulse Ox 97 Oxygen Delivery Method Room Air Weight Weight: 55 kg Body Mass Index (BMI) 18.4
[2022-10-08] MEDS: Cefazolin 2 GM in 0.9% Normal Saline 100 ML IV (11:20)
--- NOTE | 2022-10-08 11:40 | OP.PCM_ITS ---
Report of Operation Date of Procedure: 10/08/22 Pre-Operative Diagnosis: History of prostate cancer with radiation chronic right ureteral stricture with stent Post-Operative Diagnosis: Same Surgery/Procedure Performed:: Cystoscopy and right stent placement Description of Surgical Findings:: Patient was taken back to the operating room after induction of general anesthesia, the patient was placed in dorsolithotomy position. The urethra and genitals were prepped and draped in usual sterile fashion. Using a 21 [place] rigid cystourethroscope the entire length of the urethra was normal then went into the bladder. Identified the trigone the left and right ureteral orifice. The old stent was removed. I then cannulated the Right orifice and advanced a wire up into the kidney. I then backloaded a 5 [place] open ended catheter over the wire and injected contrast to delineate the anatomy. After the retrograde was performed I then used fluoroscopic images and guidance to advanced a wire up into the kidney and over the 0.038 glidewire I advanced a 6 [place] by 26 cm double pigtail stent. I then pulled the 0.038 Glidewire off and the stent coiled in the kidney bladder good position. The bladder was then drained. We confirmed the position of the stent by fluoroscopy. Patient anesthetic was reversed and was taken back to the PACU in good condition. Hernandes placed in bladder per pt request Surgeon: Gildardo Hollingsworth Type of Anesthesia: MAC Drains: hernandes Admit VTE Documentation VTE Present on Admission: No VTE Mechan Device Prophylaxis: SCD's VTE Pharm Prophylaxis ordered?: No
[2022-10-08 11:49] VITALS: BP 105/77
[2022-10-08 12:00] VITALS: BP 102/88; BP 105/77; PULSE 73; RESP 18; O2SAT 96
[2022-10-08 12:05] VITALS: BP 105/77; BP 124/66; PULSE 67; RESP 18; O2SAT 95
[2022-10-08 12:07] VITALS: BP 105/77; BP 133/95; PULSE 65; RESP 18; TEMP 36.4; O2SAT 97
[2022-10-08 13:10] VITALS: BP 105/77; BP 130/64; PULSE 70; RESP 16; O2SAT 97
== END 2022-10-08 13:16 | disposition home or self-care (01) ==
LOC: SDC 09:19 → AC 09:20
PROVIDERS: PCP Family Medicine; Referring Provider Urology; Visit Provider Urology
PROC: (CPT 52332; principal; 2022-10-08 11:15)
DX: C61 Malignant neoplasm of prostate (principal); N13.5 Crossing vessel and stricture of ureter without hydronephrosis; Z87.891 Personal history of nicotine dependence; Z46.6 Encounter for fitting and adjustment of urinary device
CPT/HCPCS: 52332; 00910; 76000; J7120; C1769; C2617; J2405

== ENCOUNTER 2022-11-25 05:35 | Inpatient (IN) | payer MEDICARE, OTHER, SELFPAY ==
[2021-09-09 14:02] VITALS: BMI 19.5
[2022-11-25] VITALS (11 sets, daily range): BP systolic 94–137; BP diastolic 48–89; PULSE 75–90; RESP 14–18; TEMP 36.4–37.3; O2SAT 93–98
--- NOTE | 2022-11-25 05:50 | RAD_ITS ---
INDICATION: fall EXAMINATION: Frontal view of the chest COMPARISON: Chest x-ray February 23, 2022. FINDINGS: Frontal view of the chest was obtained. Hyperinflation. The cardiac silhouette is not enlarged. Opacity in the medial aspect of the right lower lobe is similar to slightly increased since the prior exam. No pneumothorax. A skinfold projects over the left upper and lateral hemithorax. Multilevel compression deformity in the visualized spine, similar to the prior exam. No acute fracture identified. RAD/Chest 1 View (Portable) IMPRESSION: No acute fracture identified. Atelectasis/scarring in the medial aspect of the right lower lobe with possible superimposed infection or aspiration. Electronically Signed: Greg Landa MD at 7:15 EDT ,
--- NOTE | 2022-11-25 05:50 | RAD_ITS ---
INDICATION: fall EXAMINATION/TECHNIQUE: X-RAY - XR Hip Unilateral with Pelvis when performed; 2-3 Views COMPARISON: None. FINDINGS: A frontal view of the pelvis was obtained as well as frontal and lateral views of the right hip. There is an intertrochanteric fracture of the right hip. No gross displacement or angular deformity. No hip dislocation. Old fracture of the left femur with orthopedic rods. Advanced degenerative changes of the left hip. Right ureteral stent. Few prostate seeds. RAD/HIP, UNI W/ Pelvis 2-3 Views IMPRESSION: Intertrochanteric fracture of the right femur. Electronically Signed: Greg Landa MD at 7:20 EDT ,
--- NOTE | 2022-11-25 05:51 | EDS_ITS ---
HPI History of Present Illness Chief Complaint: Fall Informant: patient, spouse/S.O., family and EMS Onset/Context/Timing Onset: Today Narrative Narrative: Patient presents after a fall at home. He states he woke up early this morning and smelled something hot. He got up to investigate. He stumbled and fell to the ground. He does not know what made him fall. He landed on his right side and complains of pain to his right elbow and right hip. He denies striking his head. He is not on anticoagulants. [facility] Medical History Abnormal results of thyroid function studies Alcohol use Arthritis Back pain Cancer Cholelithiasis Chronic bronchitis Former smoker Heartburn History of edema History of SIADH Hydronephrosis Kidney failure Loss of hearing Low iron Prostate cancer Prostatic cancer Shortness of breath on exertion Wears glasses Wears partial dentures Home Medications NK 11/25/22 [History Last Taken Unknown] Allergy/AdvReac Type Severity Reaction Status Date / Time No Known Allergies Allergy Verified 11/25/22 05:40 Family History Other Heart disease Surgical History H/O hernia repair History of open reduction and internal fixation (ORIF) procedure History of renal stent History of transurethral resection of prostate Hx of cystoscopy Status post appendectomy Social History household members: spouse and other details: 2 st0ry house. He sleeps downstairs in a recliner. 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 Tobacco: How many years used: 67 how long ago did patient quit smoking: He quit in 2019 alcohol intake: current alcohol intake frequency: holidays/special occasions only substance use type: does not use ROS ROS ED Constitutional Constitutional ED: Denies chills or fever(s) Eyes Eyes: Denies discharge from eye(s) ENT ENT ED: Denies discharge from eye(s), rhinorrhea or sore throat Cardiovascular Cardiovascular: Denies chest pain or palpitations Respiratory/Chest Respiratory/Chest: Denies cough or dyspnea Gastrointestinal Gastrointestinal: Denies abdominal pain, nausea or vomiting Musculoskeletal Musculoskeletal: Reports extremity pain; Denies back pain Integumentary Reports Abrasions; Denies rash Neurologic Neurologic: Denies headache(s) or weakness Psychiatric Psychiatric: Denies anxiety or depression Allergic/Immunologic Allergic/Immunologic ED: Denies lip swelling or urticaria EXAM Physical Exam Const Vital Signs: 11/25/22 05:36 11/25/22 05:40 Temperature 97.5 F L Temperature Source Temporal Pulse Rate 75 Respiratory Rate 16 Respiratory Effort Normal Non-Labored Respiratory Depth Normal Respiratory Pattern Normal Blood Pressure 136/81 H Blood Pressure Mean 99 Pulse Ox 96 Oxygen Delivery Method Room Air Room Air Positive well nourished and well developed General Appearance ED: well developed HEENT Reports normocephalic and head/scalp atraumatic Eyes PERRL and EOMs intact bilaterally Neck supple Chest Wall inspection of chest normal and palpation of chest normal Resp normal respiratory effort and clear to auscultation bilaterally Cardio regular rate and regular rhythm GI non-tender Palpation: soft Extremity Extremity Narrative: Right upper extremity: Patient has a abrasion to the extensor surface of the right elbow in a crosshatch pattern consistent with hitting it on a floor vent. No full-thickness laceration noted. He does have evidence of a traumatic bursitis. There is no bony tenderness with full range of motion of the elbow. Right lower extremity: Right leg is laid in external rotation. Leg lengths are roughly equal. He can wiggle his toes on the right. He has pain with palpation over the right hip and with any attempt at logroll. Neuro oriented x3 and no sensory deficits noted Sensorium / Orientation: alert Psych mental status grossly normal MDM MDM MDM Narrative Medical decision making narrative: Patient initially declines anything for pain. Dressing applied to the right elbow with Kenneth wrap to give slight pressure. EKG obtained to evaluate for cardiac arrhythmia/ischemia. Chest x-ray obtained to evaluate for acute lung pathology, cardiac size, or mediastinal abnormality. X-ray of the pelvis and right hip obtained to evaluate for fracture. Labwork obtained to evaluate for leukocytosis, anemia, and electrolyte derangement. Lab Data Labs: Laboratory Results - last 24 hr 11/25/22 06:10 WBC 3.8 L RBC 4.62 Hgb 14.8 Hct 44.1 MCV 95.5 H MCH 32.0 MCHC 33.6 RDW Std Deviation 47.1 H RDW Coeff of Michael 13.3 Plt Count 171 MPV 9.2 Immature Gran % (Auto) 1.100 H Neut % (Auto) 66.8 Lymph % (Auto) 19.4 [place] % (Auto) 8.5 Eos % (Auto) 3.7 Baso % (Auto) 0.5 Absolute Neuts (auto) 2.5 Absolute Lymphs (auto) 0.73 L Nucleated RBC % 0 PT 12.7 INR 1.0 APTT 27.5 Sodium 136 Potassium 4.3 Chloride 102 Carbon Dioxide 30.0 Anion Gap 4 L BUN 14 Creatinine 1.02 Est GFR (MDRD) Af Amer 89 Est GFR (MDRD) Non-Af 73 BUN/Creatinine Ratio 13.7 Glucose 90 Calcium 8.5 Treatment and Re-Evaluation Narrative: Patient did agree to some pain medication prior to x-ray. He was given 25 mcg of fentanyl. Chest x-ray per my interpretation reveals chronic changes with hyperinflation. No focal infiltrate. Right hip and pelvis x-rays reveal a right intertrochanteric hip fracture. EKG is sinus at 78 with no acute ischemia. CBC reveals white count of 3.8 with a hemoglobin of 14.8. Coags are unremarkable. Chemistry studies are pending at this time. I spoke with Dr. Holguin, who the patient has seen in the past. He asked the patient be kept n.p.o. today and he will talk to the OR and try to arrange surgery today. Patient and family have been updated with this plan. I will speak with hospitalist. Discharge Plan Dx/Rx/DC Orders Clinical Impression: Fracture of right hip Disposition Disposition: Acute Care Hospital [facility]
--- NOTE | 2022-11-25 05:58 | EKG12_ITS ---
Test Reason : Dysrhythmia Blood Pressure : / mmHG Vent. Rate : 078 BPM Atrial Rate : 078 BPM P-R Int : 142 ms QRS Dur : 076 ms QT Int : 364 ms P-R-T Axes : 087 085 081 degrees QTc Int : 414 ms Normal sinus rhythm Normal ECG Confirmed by ADRIEL CRABTREE, AUGUSTO ([id number]), mapping editor AMBROCIO ENRIQUEZ ([id number]) on 12/18/2022 2:24:34 PM Referred By: Confirmed By:TOD MOREL MD
[2022-11-25] MEDS: fentaNYL 100 MCG/2 ML Ampul 25 MCG IV (06:10)
[2022-11-25 06:23] LABS: Absolute Lymphocyte Count 0.73 X10^3/uL (0.83-4.51); Absolute Neutrophil Count 2.5 X10^3/uL (2.0-7.7); Basophil# 0.02 X10^3/uL; Basophil% 0.5 % (0-1); Eosinophil# 0.14 X10^3/uL; Eosinophils% 3.7 % (0-5); Hematocrit 44.1 % (40-54); Hemoglobin 14.8 g/dL (13.0-16.5); Lymphocyte # 0.73 X10^3/ul (0.83-4.51); Lymphocyte % 19.4 % (19-41); Mean Corp Hgb Conc 33.6 g/dL (32-36); Mean Corpuscular Volume 95.5 fL (80-94); Mean Platelet Vol. 9.2 fl (6.2-12.0); Monocyte# 0.32 X10^3/uL; Monocyte% 8.5 % (0-10); NRBC Flagged by Analyzer 0 % (0-5); Neutrophil # 2.52 X10^3/uL (2.7-7.7); Neutrophil % 66.8 % (47-70); Platelet Count 171 K/mm3 (150-450); RBC Distribution Width CV 13.3 % (11.6-14.6); RBC Distribution Width SD 47.1 fl (35.1-43.9); Red Blood Count 4.62 M/mm3 (4.6-6.2); White Blood Count 3.8 K/mm3 (4.4-11.0)
[2022-11-25 06:39] LABS: Partial Thromboplast Time 27.5 Seconds (24.1-36.2); Prothrombin Time (Protime)PT. 12.7 SECONDS (11.7-14.9)
[2022-11-25 06:43] LABS: Anion Gap 4 (5-15); BUN 14 mg/dL (7-18); BUN/Creat Ratio 13.7 RATIO (10-20); Calcium,Total 8.5 mg/dL (8.5-10.1); Chloride 102 mmol/L (98-107); Creatinine, Serum 1.02 mg/dL (0.70-1.30); EST Glomerular Filtration Rate 73 mL/min (>60); Est Glom Filt Rate - Afr Amer 89 mL/min (>60); Glucose 90 mg/dL (74-106); Potassium 4.3 mmol/L (3.5-5.1); Sodium Level 136 mmol/L (136-145)
--- NOTE | 2022-11-25 07:39 | HP.PCM.HOS_ITS ---
HPI - General General Date of Admission: 11/25/22 Date of Service: 11/25/22 Chief Complaint: Right hip pain HPI Narrative ELIESER VILLEGAS, is a 87 M who presents to the emergency room at [facility] after sustaining a fall at home, patient was going from his kitchen to the next room and tripped on the divider for the rooms, he landed on his right hip and cannot bear weight and has right hip pain. Patient has no medical issues, he does not take any prescription medication, patient had a previous left intertrochanteric fracture approximately a year ago. Work-up in the emergency room included x-rays of the pelvis and hips, there is noted to be an intertrochanteric fracture of the right femur, labs were obtained, patient's white blood cell count was slightly low at 3.8, previous white blood cell count done in 2021 was low at 2.7. Patient's chemistry panel was unremarkable. Patient had an EKG performed which showed a normal sinus rhythm without evidence of ischemic changes or previous myocardial infarction. Chest x-ray showed atelectasis or scarring in the medial aspect of the right lower lobe with possible superimposed infection or aspiration. Patient has no complaints of any shortness of breath, he has no complaints of cough, fever, chills, or chest discomfort. Patient will be admitted to [facility] and will be seen in consultation by orthopedic surgery, it is believed that he will go to surgery today for ORIF of the right hip. [facility] Medical History Abnormal results of thyroid function studies Alcohol use Arthritis Back pain Cancer Cholelithiasis Chronic bronchitis Former smoker Heartburn History of edema History of SIADH Hydronephrosis Kidney failure Loss of hearing Low iron Prostate cancer Prostatic cancer Shortness of breath on exertion Wears glasses Wears partial dentures Home Medications NK 11/25/22 [History Last Taken Unknown] Allergy/AdvReac Type Severity Reaction Status Date / Time No Known Allergies Allergy Verified 11/25/22 05:40 Family History Other Heart disease Surgical History H/O hernia repair History of open reduction and internal fixation (ORIF) procedure History of renal stent History of transurethral resection of prostate Hx of cystoscopy Status post appendectomy Social History household members: spouse and other details: 2 st0ry house. He sleeps downstairs in a recliner. 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 Tobacco: How many years used: 67 how long ago did patient quit smoking: He quit in 2019 alcohol intake: current alcohol intake frequency: holidays/special occasions only substance use type: does not use ROS Constitutional Constitutional: Denies anorexia, change in weight, chills, fatigue, fever(s), malaise, night sweats or weakness Eyes Eyes: Denies blurry vision, change in vision, discharge from eye(s) or eye pain Cardiovascular Cardiovascular: Denies chest pain, claudication, edema or palpitations Respiratory/Chest Respiratory/Chest: Denies cough, hemoptysis, shortness of breath at rest or shortness of breath with exertion Gastrointestinal Gastrointestinal: Denies abdominal pain, constipation, diarrhea, hematemesis, hematochezia, melena, nausea or vomiting Genitourinary Genitourinary: Denies dysuria, hematuria, urinary frequency, urinary hesitancy, urinary incontinence or urinary urgency Musculoskeletal Musculoskeletal: Reports joint pain and other Details: Right hip pain and inability to bear weight on right hip ; Denies back pain, joint stiffness, joint swelling, myalgias or neck pain Neurologic Neurologic: Denies abnormal gait, abnormal speech, confusion, disequilibrium, dizziness, focal weakness, headache(s), loss of vision, numbness, other visual disturbances, paresthesias, syncope or tingling Psychiatric Psychiatric: Denies anxiety, cognitive impairment, depression, irritability, mood swings or suicidal ideation Endocrine Endocrinology: Denies change in body appearance, cold intolerance, excessive sweating, heat intolerance, polydipsia or polyuria Hematologic/Lymphatic Hematologic/Lymphatic: Denies none, anemia, easy bleeding, easy bruising or lymphadenopathy Allergic/Immunologic Allergic/Immunologic: Denies rhinitis, urticaria, eczemia or asthma Vital Signs Vital Signs Vital Signs: 11/25/22 05:36 11/25/22 05:40 11/25/22 07:23 Temperature 97.5 F L 98 F Temperature Source Temporal Temporal Pulse Rate 75 75 Respiratory Rate 16 14 Respiratory Effort Normal Non-Labored Respiratory Depth Normal Respiratory Pattern Normal Blood Pressure 136/81 H 137/89 H Blood Pressure Mean 99 105 Pulse Ox 96 98 Oxygen Delivery Method Room Air Room Air Room Air Physical Exam Const alert, oriented x3, no apparent distress and healthy appearing General Appearance: cooperative, well kempt and well developed Orientation / Consciousness: awake, oriented to person, oriented to place and oriented to time HEENT normocephalic and moist oral mucous membranes Eyes PERRL, EOMs intact bilaterally and conjunctivae normal Neck supple, no JVD, thyroid normal and no carotid bruits General: trachea midline Resp normal respiratory effort, no retractions and no use of accessory muscles Resp Narrative: Lungs are clear to auscultation anterior bilaterally Auscultation: Negative for rales, rhonchi or wheezes Cardio regular rate, regular rhythm, S1 normal heart sound, S2 normal heart sound, no murmurs, no rub and no gallops GI normal to inspection, nondistended, normoactive bowel sounds, soft to palpation, non-tender and non-distended Extremity Extremity Narrative: Patient has right hip discomfort with any movement of his right hip, it appears slightly externally rotated. Skin no rashes or lesions noted General Skin Exam: no breakdown Neuro oriented x3, CN's II-XII intact bilaterally, no focal motor deficits and no sensory deficits noted Sensorium / Orientation: awake and alert Speech: speech normal Psych affect normal Results Lab / Micro Data 11/25/22 06:10 11/25/22 06:10 Labs: Laboratory Results - last 24 hr 11/25/22 06:10: WBC 3.8 L, RBC 4.62, Hgb 14.8, Hct 44.1, MCV 95.5 H, MCH 32.0, MCHC 33.6, RDW Std Deviation 47.1 H, RDW Coeff of Michael 13.3, Plt Count 171, MPV 9.2, Immature Gran % (Auto) 1.100 H, Neut % (Auto) 66.8, Lymph % (Auto) 19.4, [place] % (Auto) 8.5, Eos % (Auto) 3.7, Baso % (Auto) 0.5, Absolute Neuts (auto) 2.5, Absolute Lymphs (auto) 0.73 L, Nucleated RBC % 0, PT 12.7, INR 1.0, APTT 27.5, Sodium 136, Potassium 4.3, Chloride 102, Carbon Dioxide 30.0, Anion Gap 4 L, BUN 14, Creatinine 1.02, Est GFR (MDRD) Af Amer 89, Est GFR (MDRD) Non-Af 73, BUN/Creatinine Ratio 13.7, Glucose 90, Calcium 8.5 Radiology Impression Chest X-Ray 11/25/22 05:50 IMPRESSION: No acute fracture identified. Atelectasis/scarring in the medial aspect of the right lower lobe with possible superimposed infection or aspiration. Electronically Signed: Greg Landa MD at 7:15 EDT , Hip/Pelvis X-Ray 11/25/22 05:50 IMPRESSION: Intertrochanteric fracture of the right femur. Electronically Signed: Greg Landa MD at 7:20 EDT , Assessment & Plan Assessment/Plan (1) Fracture of right hip: PLAN: Plan 1. Intertrochanteric fracture of the right hip secondary to mechanical fall- patient will be admitted to [place] [id number], he will be seen in consultation by orthopedic surgery, he will be seen by PT and OT, it is planned that he will have surgery today for repair of his right hip fracture. Patient appears medically stable at this time to undergo surgery, he is at moderate risk for complications due to his age but he is on no medications at this time and does not have any known medical problems. #2 neutropenia-patient has slight neutropenia, this appears to be chronic over the past 2 years, I do not think this will impact his surgery. #3 evidence of scarring of the lung-I do not feel the patient has any active pulmonary disease such as pneumonia or lung cancer Total clinical time spent by myself addressing patient's medical issues, reviewing all of the data, collaborating with patient's care team: 75 minutes Charges/Coding Visit Charges Inpatient E&M: [id number] Init Hosp L3
--- NOTE | 2022-11-25 08:28 | ED.RN ---
12/26/22@0825- UNABLE TO GET PTS WEIGHT. ER CART WEIGHT FUNCTION IS NOT WORKING. PT UNABLE TO STAND ON SCALE DUE TO FX RIGHT HIP. PT WILL BE WEIGHED ONCE IN INPATIENT BED OR NEW ER CART.
--- NOTE | 2022-11-25 09:03 | CONS.ORTHO ---
HPI Consult Data Date of Consult: 11/25/22 HPI Narrative Reason for Consultation: Right hip fracture HPI Narrative: ELIESER VILLEGAS, is a 87 M who presents after a fall from standing height at home. He is unsure if this was a syncopal episode after he tripped and fell. He denies right hip and is able to bear weight. Patient also states he scraped his right elbow. Patient denies any antecedent right hip or groin pain. Patient is a community ambulator with a cane. Patient underwent left femur cephalomedullary nailing with myself 09/05/2021. He recovered well without complication. Patient lives at home with his . He denies any fevers, chills, nausea vomiting, chest pain, shortness of breath, numbness or tingling. Patient denies any head injury or neck injury. [facility] Medical History Abnormal results of thyroid function studies Alcohol use Arthritis Back pain Cancer Cholelithiasis Chronic bronchitis Former smoker Heartburn History of edema History of SIADH Hydronephrosis Kidney failure Loss of hearing Low iron Prostate cancer Prostatic cancer Shortness of breath on exertion Wears glasses Wears partial dentures Home Medications NK 11/25/22 [History Last Taken Unknown] Allergy/AdvReac Type Severity Reaction Status Date / Time No Known Allergies Allergy Verified 11/25/22 05:40 Family History Other Heart disease Surgical History H/O hernia repair History of open reduction and internal fixation (ORIF) procedure History of renal stent History of transurethral resection of prostate Hx of cystoscopy Status post appendectomy Social History household members: spouse and other details: 2 st0ry house. He sleeps downstairs in a recliner. 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 Vital Signs Vital Signs Vital Signs: 11/25/22 05:36 11/25/22 05:40 11/25/22 07:23 Temperature 97.5 F L 98 F Temperature Source Temporal Temporal Pulse Rate 75 75 Respiratory Rate 16 14 Respiratory Effort Normal Non-Labored Respiratory Depth Normal Respiratory Pattern Normal Blood Pressure 136/81 H 137/89 H Blood Pressure Mean 99 105 Pulse Ox 96 98 Oxygen Delivery Method Room Air Room Air Room Air Physical Exam Narrative General -A&Ox3, NAD, appears stated age. Vital signs stable, afebrile. Respiratory -normal work of breathing, no intercostal retractions. CV -pulses regular, brisk capillary refill ?4 limbs. Abdomen-soft, nontender, nondistended. No guarding, rigidity, rebound tenderness. Musculoskeletal/neurologic -full range of motion nontender throughout bilateral upper extremities, left lower extremity with full sensation and strength in all dermatomes and myotomes. No midline cervical tenderness. Apparent skin tears were dressed by emergency department to the right upper extremity. Minimally tender about the right elbow. Right lower extremity-no obvious deformity. Pain with logroll of the right lower extremity. Nontender throughout the right knee femoral shaft, tibial shaft and left foot/ankle. Brisk capillary refill. Sensation intact light touch L3-S1 dermatomes. DF, PF, EHL intact. DP, PT 2+. Pelvis is stable, nontender. Skin is intact without lacerations, abrasions. No ecchymosis noted. Lab / Micro Data 11/25/22 06:10 11/25/22 06:10 Labs: Laboratory Results - last 24 hr 11/25/22 06:10: WBC 3.8 L, RBC 4.62, Hgb 14.8, Hct 44.1, MCV 95.5 H, MCH 32.0, MCHC 33.6, RDW Std Deviation 47.1 H, RDW Coeff of Michael 13.3, Plt Count 171, MPV 9.2, Immature Gran % (Auto) 1.100 H, Neut % (Auto) 66.8, Lymph % (Auto) 19.4, [place] % (Auto) 8.5, Eos % (Auto) 3.7, Baso % (Auto) 0.5, Absolute Neuts (auto) 2.5, Absolute Lymphs (auto) 0.73 L, Nucleated RBC % 0, PT 12.7, INR 1.0, APTT 27.5, Sodium 136, Potassium 4.3, Chloride 102, Carbon Dioxide 30.0, Anion Gap 4 L, BUN 14, Creatinine 1.02, Est GFR (MDRD) Af Amer 89, Est GFR (MDRD) Non-Af 73, BUN/Creatinine Ratio 13.7, Glucose 90, Calcium 8.5 Radiology Impression Chest X-Ray 11/25/22 05:50 IMPRESSION: No acute fracture identified. Atelectasis/scarring in the medial aspect of the right lower lobe with possible superimposed infection or aspiration. Electronically Signed: Greg Landa MD at 7:15 EDT , Hip/Pelvis X-Ray 11/25/22 05:50 IMPRESSION: Intertrochanteric fracture of the right femur. Electronically Signed: Greg Landa MD at 7:20 EDT , Assessment & Plan Assessment/Plan (1) Fracture of right hip: QUALIFIERS: Encounter type: initial encounter Fracture type: closed Qualified Code(s): S72.001A - Fracture of unspecified part of neck of right femur, initial encounter for closed fracture PLAN: Patient sustained a right intertrochanteric proximal femur fracture. -Closed, neurovascularly intact -Isolated injury -Recommending surgical intervention in the form of right femur cephalomedullary nailing -I discussed the procedure-its risks, benefits and alternative. Risks include but are not limited to bleeding, infection, loss of life or limb, risk of anesthesia, persistent pain or disability, need for additional surgery, nonunion, malunion, failure of orthopedic hardware, neurovascular injury, DVT or PE. Patient expressed understanding these risks and wished proceed with surgery. -Maintenance IV fluids, clear liquid diet after midnight n.p.o. at 2 hours prior to surgery -Type and screen -2 g Ancef on-call to the OR -Bedrest, heel protectors -Plan to proceed with surgery later today when OR becomes available Thank you for this consultation.
[2022-11-25 10:11] LABS: ALB/GLOB Ratio 0.9 RATIO (0.9-2.4); AST(SGOT) 19 U/L (15-37); Alanine Aminotransfer ALT/SGPT 17 U/L (16-61); Alkaline Phosphatase 119 U/L (45-117); Anion Gap 6 (5-15); BUN 14 mg/dL (7-18); BUN/Creat Ratio 14.7 RATIO (10-20); Calcium,Total 8.3 mg/dL (8.5-10.1); Chloride 103 mmol/L (98-107); Creatinine, Serum 0.96 mg/dL (0.70-1.30); EST Glomerular Filtration Rate 79 mL/min (>60); Est Glom Filt Rate - Afr Amer 96 mL/min (>60); Globulin 3.5 g/dL (2.2-4.2); Glucose 84 mg/dL (74-106); Potassium 4.1 mmol/L (3.5-5.1); Protein, Total 6.5 g/dL (6.4-8.2); Sodium Level 136 mmol/L (136-145)
[2022-11-25 10:16] LABS: Vitamin D,25 Hydroxy 23.5 ng/mL
[2022-11-25] MEDS: Morphine 4 MG/ML Syringe IV (11:23)
[2022-11-25] MEDS: Lactated Ringers 1,000 ML 75 ML IV (11:23)
[2022-11-25] MEDS: 0.9% Saline Lock 10 ML Syringe IV (11:23)
[2022-11-25] MEDS: Senna/Docusate Sodium 1 Tablet 2 TABLET PO ×2 (11:24→21:28)
--- NOTE | 2022-11-25 13:05 | RAD_ITS ---
STUDY: X-RAY - PELVIS AND RIGHT HIP REASON FOR EXAM: Male, 87 years old. ORIF, GAMMA NAIL TECHNIQUE: 6 C-arm views of the pelvis and hip. 94.7 seconds fluoroscopy. COMPARISON: None. FINDINGS: These images show grossly satisfactory positioning of intramedullary jd and femoral neck nail fixating previous fracture. Correlate with procedure note. Electronically Signed: Gopal Levin MD at 17:07 EDT , RAD/Hip Min 2 Views (Portable) IMPRESSION: undefined
[2022-11-25] MEDS: Cefazolin 2 GM in 0.9% Normal Saline 100 ML IV (13:15)
--- NOTE | 2022-11-25 14:46 | OP.PCM_ITS ---
Report of Operation Date of Procedure: 11/25/22 Description of Surgical Findings:: Preoperative diagnosis: Right intertrochanteric proximal femur fracture Postoperative diagnosis: Right intertrochanteric proximal femur fracture Procedure: Treatment of intertrochanteric hip fracture with intramedullary nail right femur Surgeon: Hitesh Holguin DO Anesthesia: General endotracheal Anesthesiologist: Dr. Jones Complications: None Drains: None Estimated blood loss: 150 cc Urinary output: None recorded IV fluids: 300 cc crystalloid Specimens: None Surgical implants: [employer] Gamma3 Cephalomedullary Nail 125 degree 11 mm x 180 mm right, 10.5 mm x 95 mm lag screw, Interlocking screw size 5 mm x 37.5 mm Surgical indications: This is a 87 F who presents presented to [facility] emergency department this morning after a fall at home onto his right side. X-rays revealed a displaced intertrochanteric femur fracture. He was admitted under the service of the hospitalist. I saw the patient in consultation. Recommended surgical invention in the form of right femur cephalomedullary nailing. He was medically optimized. The risks, benefits, alternatives to procedure reviewed with the patient. The risks of the surgery included bleeding, infection, loss of life or limb, malunion, nonunion, damage to vital structures, neurovascular injury, failure of orthopedic hardware, need for additional surgery, persistent pain or disability, risk of anesthesia. The patient expressed understanding of these risks and agreed to proceed with surgery. Blood consent was also obtained. Description of procedure: Patient was seen in preoperative holding area. He was identified by name, medical record number, date of . The operative extremity was marked with a surgical marker. We confirmed informed consent with the patient and questions were answered to his satisfaction. Patient was brought to the operative suite, and general anesthesia was induced on his hospital bed. Endotracheal tube was secured. After adequate anesthesia, patient was transferred to a fracture table with all bony prominences being well-padded. A perineal post was placed to secure the patient on the table. We then applied a ski boot which was well-padded to the operative extremity. The well leg was dropped into extension and secured to the axial post of the fracture table with a pillow and Coban. The right arm was brought across patient's chest with a blanket on his chest. We then performed a closed reduction maneuver with external rotation, traction, internal rotation and adduction. Fluoroscopic images were obtained. Fracture appeared to be acceptably reduced following closed reduction. We then prepped and draped the right lower extremity in normal, sterile orthopedic fashion. A timeout was performed with all parties in attendance in agreement with the side, site, and operation be performed. 2 g Ancef was administered prior to incision. No concerns were voiced and we elected to proceed. I first used fluoroscopy to flavia the level of the fracture and planned incision for insertion of the cephalomedullary nail device. In line with the long axis of the femur, 4 fingerbreadths proximal to the tip of the greater trochanter, a full-thickness skin incision was planned.. Skin was sharply incised with 10 blade scalpel, carried into the subcutaneous tissues. The IT band was encountered and split and planned trajectory of the nail placement. The greater trochanter was then able to be palpated digitally. I then placed a threaded guidewire just medial to the tip of the greater trochanter and in the anterior third of it on the lateral. Opening reamer was then placed over top of the guidewire after placement was confirmed on C arm. A ball-tipped guidewire then was passed into the intramedullary canal after reamer was removed. We used C arm to confirm our placement within the bone. Reduction was again confirmed. We selected his nail to be 18 cm x 11 mm diameter. Reamers were removed. Nail was assembled on the back table. We placed it over the ball-tipped guidewire and impacted to an appropriate depth. Rotation was confirmed on the lateral. Drill sleeve was placed through the targeting guide. We drilled the pin for the lag screw at an appropriate position and depth, tip to apex distance less than 25 mm on AP and lateral combined. Depth gauge was used to measure the length of the screw, 90 mm. Prior to drilling, I applied a lateral translation of the femoral neck with a bone hook placed to the lag screw incision. We then used the cannulated drill to drill to an appropriate depth. Drill was removed, drill pin left in place. Lag screw was placed over top of the drill pin and tightened to an appropriate depth. Setscrew was then placed and tightened. I then drilled for a static interlocking screw in the distal portion of the screw utilizing the outrigger. Skin was incised full-thickness down the level of the IT band which was also split in line with the skin incision. I drilled bicortically through the distal interlocking slot of the nail. I measured for a 37.5 mm interlocking screw which was placed by hand with excellent purchase. Instruments were removed as well as the outrigger for the nail. Final fluoroscopic images were obtained at the hip. Final fluoroscopic images were obtained. We irrigated the wounds copiously with normal saline solution. Hemostasis was excellent at this point. We then closed the deeper layers, IT band with 0 Vicryl. Intradermal buried stitches of 2-0 Vicryl were utilized and skin finally reapproximated with skin migue. Sterile compression dressing of Xeroform, 4 x 4's, and Tegaderm was applied. Patient tolerated procedure well without complication. Patient was transferred back to her hospital bed and subsequently to PACU in stable condition. Intraoperative medications: 2 g Ancef IV Post Operative Plan: Weightbearing: Weightbearing as tolerated right lower extremity with a walker Antibiotics: Ancef 1 g x 3 doses postoperatively, 1 dose given preoperatively DVT Prophylaxis: Prophylactic heparin to start this evening Vargas: None Dressing: Dry sterile dressing changes daily and as needed for saturation X-Rays: 2 weeks postop in the office Follow-up: 2 weeks post-operatively with me in the office
[2022-11-25] MEDS: Calcium Carbonate 500 MG Tablet PO (18:21)
[2022-11-25] MEDS: Cefazolin 1 GM/50 ML BAG IV (21:27)
[2022-11-25] MEDS: Heparin Injection (Vial) 5,000 UNIT/ML VIAL 5000 UNIT SC (21:27)
[2022-11-26] VITALS (8 sets, daily range): BP systolic 90–125; BP diastolic 54–77; PULSE 75–96; RESP 16–18; TEMP 36.7–37.7; O2SAT 92–96
[2022-11-26] MEDS: Cefazolin 1 GM/50 ML BAG IV ×2 (04:02→12:50)
[2022-11-26 06:05] LABS: Absolute Lymphocyte Count 0.63 X10^3/uL (0.83-4.51); Basophil# 0.02 X10^3/uL; Basophil% 0.3 % (0-1); Eosinophil# 0.03 X10^3/uL; Eosinophils% 0.5 % (0-5); Hematocrit 32.8 % (40-54); Hemoglobin 10.4 g/dL (13.0-16.5); Lymphocyte # 0.63 X10^3/ul (0.83-4.51); Lymphocyte % 10.1 % (19-41); Mean Corp Hgb Conc 31.7 g/dL (32-36); Mean Corpuscular Hgb 30.9 pg (27.0-32.0); Mean Corpuscular Volume 97.3 fL (80-94); Mean Platelet Vol. 9.6 fl (6.2-12.0); Monocyte# 0.54 X10^3/uL; Monocyte% 8.6 % (0-10); NRBC Flagged by Analyzer 0 % (0-5); Neutrophil # 4.98 X10^3/uL (2.7-7.7); Neutrophil % 79.7 % (47-70); Platelet Count 149 K/mm3 (150-450); RBC Distribution Width CV 13.5 % (11.6-14.6); RBC Distribution Width SD 48.6 fl (35.1-43.9); Red Blood Count 3.37 M/mm3 (4.6-6.2); White Blood Count 6.3 K/mm3 (4.4-11.0)
[2022-11-26 06:28] LABS: Anion Gap 4 (5-15); BUN 26 mg/dL (7-18); BUN/Creat Ratio 26.9 RATIO (10-20); Calcium,Total 8.1 mg/dL (8.5-10.1); Chloride 101 mmol/L (98-107); Creatinine, Serum 0.96 mg/dL (0.70-1.30); EST Glomerular Filtration Rate 78 mL/min (>60); Est Glom Filt Rate - Afr Amer 95 mL/min (>60); Glucose 126 mg/dL (74-106); Sodium Level 135 mmol/L (136-145)
[2022-11-26] MEDS: Acetaminophen 325 MG Tablet 650 MG PO ×2 (06:28→14:07)
--- NOTE | 2022-11-26 07:25 | PN.ORTHO_ITS ---
Subjective Subjective Patient seen and examined. Denies significant pain. Denies fevers, chills, nausea or vomiting, chest pain or shortness of breath. Up with nursing to stand at bedside, did note some lightheadedness which resolved after laying back down.. Objective Data Objective Data Vital Signs: Vital Signs Temp Pulse Resp BP Pulse Ox O2 Del Method 99.2 F H 88 18 93/65 93 Room Air 11/26/22 06:10 11/26/22 06:10 11/26/22 06:10 11/26/22 06:10 11/26/22 06:10 11/26/22 06:10 Oxygen Delivery Method Room Air Intake & Output: Intake and Output for Last 24 Hours 11/24/22 11/25/22 11/26/22 23:59 23:59 23:59 Intake Total 916.25 / 916.25 181.75 / 181.75 Output Total 125 / 125 Balance 791.25 / 791.25 181.75 / 181.75 Lab / Micro Data 11/26/22 05:45 11/26/22 05:45 Labs: Laboratory Results - last 24 hr 11/25/22 09:27: Sodium 136, Potassium 4.1, Chloride 103, Carbon Dioxide 27.0, Anion Gap 6, BUN 14, Creatinine 0.96, Est GFR (MDRD) Af Amer 96, Est GFR (MDRD) Non-Af 79, BUN/Creatinine Ratio 14.7, Glucose 84, Calcium 8.3 L, Total Bilirubin 0.50, AST 19, ALT 17, Alkaline Phosphatase 119 H, Total Protein 6.5, Albumin 3.0 L, Globulin 3.5, Albumin/Globulin Ratio 0.9, Vitamin D 25-Hydroxy 23.5, Blood Type O POSITIVE, Antibody Screen NEGATIVE 11/26/22 05:45: WBC 6.3, RBC 3.37 L, Hgb 10.4 L, Hct 32.8 L, MCV 97.3 H, MCH 30.9, MCHC 31.7 L D, RDW Std Deviation 48.6 H, RDW Coeff of Michael 13.5, Plt Count 149 L, MPV 9.6, Immature Gran % (Auto) 0.800, Neut % (Auto) 79.7 H, Lymph % (Auto) 10.1 L, [place] % (Auto) 8.6, Eos % (Auto) 0.5, Baso % (Auto) 0.3, Absolute Neuts (auto) 5.0, Absolute Lymphs (auto) 0.63 L, Nucleated RBC % 0, Sodium 135 L , Potassium 5.0, Chloride 101, Carbon Dioxide 30.0, Anion Gap 4 L, BUN 26 H, Creatinine 0.96, Est GFR (MDRD) Af Amer 95, Est GFR (MDRD) Non-Af 78, BUN/Creatinine Ratio 26.9 H, Glucose 126 H, Calcium 8.1 L Radiography Diagnostic Testing: Radiology Impression Hip X-Ray 11/25/22 13:05 IMPRESSION: undefined Physical Exam Narrative General - A&Ox3, NAD. VSS/AF Right lower extremity -incisional dressing C/D/I. SILT Sural, Saphenous, SPN, DPN, Tibial N. distributions. DP, PT 2+. BCR. DF, PF, EHL 5/5. No calf TTP. Assessment & Plan Assessment/Plan (1) Fracture of right hip: QUALIFIERS: Encounter type: initial encounter Fracture type: closed Qualified Code(s): S72.001A - Fracture of unspecified part of neck of right femur, initial encounter for closed fracture PLAN: POD#1 s/p right femur CMN -Patient doing well this morning. Acute blood loss anemia is noted secondary to expected blood loss with surgery, some dilutional component is suspected. No indication for transfusion. - Pain control - Medicine following for medical management - PT/OT-weightbearing as tolerated right lower extremity - DVT PPX -heparin, SCDs, TORIN hose, early mobilization - Case management - D/C planning
[2022-11-26] MEDS: Calcium Carbonate 500 MG Tablet PO ×3 (08:57→17:49)
[2022-11-26] MEDS: Senna/Docusate Sodium 1 Tablet 2 TABLET PO (10:03)
[2022-11-26] MEDS: Heparin Injection (Vial) 5,000 UNIT/ML VIAL 5000 UNIT SC ×2 (10:04→22:37)
--- NOTE | 2022-11-26 10:45 | CASEMGMT ---
NIMCO ROSENBERG Assessment: Face to Face with pt for initial transition planning/care coordination assessment. RN CHET introduced self and role at [facility], pt voices understanding and consents to assessment. Pt is A/O x4 and answers all questions appropriately at this time. Pt sitting up in chair in no distress. Pt very talkative and pleasant. Care providers, pharmacy, and demographics verified/updated. Admitting Dx: hip fx PCP:Cat Specialists:Darrick, uro; Geniattserene, ortho [facility]acy[facility] Insurance: [facility], [facility] Prescription Benefit: yes LNOK: Mulu Tenorio, Living Arrangements: Pt lives with in a two story home with 3 steps to enter with a rail. Pt reports he does not go upstairs. Pt reports he was I in ADL's prior to surgery. Pt prepares meals, gets groceries and does laundry. Pt denies concerns at home. Transportation: Pt drives during the day. Pt is able to transport him until he can drive again. DME/HHC/SNF: Pt has a grab bar in the shower/tub, cane and FWW. Pt denies hx of HHC but has been at [facility] Rehab. Pt states no concerns with going home at time of dc. He states he would like to go home SARAH. Discussed options for having therapy. Pt states he does not want therapy. He states that he has exercises from being in rehab. Pt states his will not be happy about this but it is his choice. Agreed with pt that it ultimately is his choice but therapy will help him gain back his independence faster. He states he will think about this. NIMCO CM to check back today to see if pt agreeable. Pt states no further concerns/needs. CM to follow. Advised pt to ask CM if any further question/concerns/needs arise, voices understanding. Pt Goal: Home Plan: Home, will check back with pt to see if he is agreeable to outpt or home therapy.
[2022-11-26] MEDS: 0.9% Saline Lock 10 ML Syringe IV ×2 (12:50→14:08)
--- NOTE | 2022-11-26 13:58 | CASEMGMT ---
Addendum entered by Ml Cisneros 11/26/22 15:41: Pt accepted by [facility] and SOC will be on Thursday. Pt updated and verbalized understanding. Addendum entered by Ml Cisneros 11/26/22 15:06: NIMCO ROSENBERG into pt room, pt has chosen [facility] as first choice. TC to Kaitlin at [facility], left message with referral, will await decision to accept. Original Note: NIMCO ROSENBERG into pt room, pt present. Pt is now agreeable to [facility]. He states he does not want to have therapy in a facility. Patient was provided a list of [facility] providers including quality and resource use data and consistent with the patient?s preferred geographic region, medical needs, and insurance network were provided from the [employer]Port Guide. Pt to review for top three preferences and NIMCO ROSENBERG to check back.
[2022-11-26] MEDS: Nystatin/Triamcin Cream Tube 1 APPLIC TOPICAL ×2 (14:08→22:38)
[2022-11-26] MEDS: Nystatin Powder 15gm Bottle 1 APPLIC TOPICAL ×2 (17:48→22:37)
--- NOTE | 2022-11-26 18:31 | PN.HOSP_ITS ---
Reason for Visit Reason for Visit: Diagnoses Fracture of unspecified part of neck of right femur, initial encounter for clos ed fracture (11/25/22) Subjective Subjective Patient was seen and examined today, and a brief conversation with him about diony gonzalezng to the rehab unit here, patient would rather not do it but he states that if he has to he will go. would like him to go and is concerned that he will not be safe at home. Patient's hemoglobin today was 10.4 Objective Data Objective Data Vital Signs: Vital Signs Temp Pulse Resp BP Pulse Ox O2 Del Method 98.0 F 75 18 113/55 L 95 Room Air 11/26/22 18:00 11/26/22 18:00 11/26/22 18:00 11/26/22 18:00 11/26/22 18:00 11/26/22 18:00 Oxygen Delivery Method Room Air Intake & Output: Intake and Output for Last 24 Hours 11/24/22 11/25/22 11/26/22 23:59 23:59 23:59 Intake Total 916.25 / 916.25 1081.75 / 1081.75 Output Total 125 / 125 Balance 791.25 / 791.25 1081.75 / 1081.75 Lab / Micro Data 11/26/22 05:45 11/26/22 05:45 Labs: Laboratory Results - last 24 hr 11/26/22 05:45: WBC 6.3, RBC 3.37 L, Hgb 10.4 L, Hct 32.8 L, MCV 97.3 H, MCH 30.9, MCHC 31.7 L D, RDW Std Deviation 48.6 H, RDW Coeff of Michael 13.5, Plt Count 149 L, MPV 9.6, Immature Gran % (Auto) 0.800, Neut % (Auto) 79.7 H, Lymph % (Auto) 10.1 L, [place] % (Auto) 8.6, Eos % (Auto) 0.5, Baso % (Auto) 0.3, Absolute Neuts (auto) 5.0, Absolute Lymphs (auto) 0.63 L, Nucleated RBC % 0, Sodium 135 L , Potassium 5.0, Chloride 101, Carbon Dioxide 30.0, Anion Gap 4 L, BUN 26 H, Creatinine 0.96, Est GFR (MDRD) Af Amer 95, Est GFR (MDRD) Non-Af 78, BUN/Creatinine Ratio 26.9 H, Glucose 126 H, Calcium 8.1 L Physical Exam Const alert, oriented x3 and no apparent distress General Appearance: cooperative, well kempt and well developed Orientation / Consciousness: awake, oriented to person, oriented to place and oriented to time HEENT normocephalic, head/scalp atraumatic and moist oral mucous membranes Eyes PERRL, EOMs intact bilaterally and conjunctivae normal Neck supple, no JVD, thyroid normal and no carotid bruits General: trachea midline Resp normal respiratory effort, no retractions, no use of accessory muscles and clear to auscultation bilaterally Auscultation: Negative for rales, rhonchi or wheezes Cardio regular rate, regular rhythm, S1 normal heart sound, S2 normal heart sound, no murmurs, no rub and no gallops GI normal to inspection, nondistended, normoactive bowel sounds, soft to palpation, non-tender and non-distended Extremity no clubbing, cyanosis or edema Skin no rashes or lesions noted General Skin Exam: no breakdown Neuro oriented x3, CN's II-XII intact bilaterally, moves all extremities, no focal motor deficits and no sensory deficits noted Sensorium / Orientation: awake, alert, oriented to person, oriented to place and oriented to time Speech: speech normal Psych affect normal Assessment & Plan Assessment/Plan (1) Fracture of right hip: QUALIFIERS: Encounter type: initial encounter Fracture type: closed Qualified Code(s): S72.001A - Fracture of unspecified part of neck of right femur, initial encounter for closed fracture PLAN: Plan 1. Intertrochanteric fracture of the right hip secondary to mechanical fall- postop day #1 intramedullary nail insertion right femur-continue PT and OT, I will see if the patient makes adequate progress to go home tomorrow, if not, I would recommend to go to the rehab unit for short-term rehab services, patient understands this. #2 neutropenia, resolved at this time-continue to monitor CBC as appropriate #3 evidence of scarring of the lung-I do not feel the patient has any active pulmonary disease such as pneumonia or lung cancer #4 expected acute blood loss anemia secondary to right femoral fracture-monitor H&H, I will repeat the patient's hemoglobin tomorrow. Total clinical time spent by myself addressing patient's medical issues, reviewing all of the data, collaborating with patient's care team: 35 minutes Charges/Coding Visit Charges Inpatient E&M: 23229 Subs Hosp L2
[2022-11-27 06:11] VITALS: BP 98/54; PULSE 65; RESP 16; TEMP 36.4; O2SAT 96
[2022-11-27 06:18] LABS: Hematocrit 26.9 % (40-54); Hemoglobin 8.7 g/dL (13.0-16.5); Mean Corp Hgb Conc 32.3 g/dL (32-36); Mean Corpuscular Hgb 31.3 pg (27.0-32.0); Mean Corpuscular Volume 96.8 fL (80-94); Mean Platelet Vol. 9.9 fl (6.2-12.0); Platelet Count 123 K/mm3 (150-450); RBC Distribution Width CV 13.4 % (11.6-14.6); RBC Distribution Width SD 48.4 fl (35.1-43.9); Red Blood Count 2.78 M/mm3 (4.6-6.2); White Blood Count 5.6 K/mm3 (4.4-11.0)
[2022-11-27] MEDS: Heparin Injection (Vial) 5,000 UNIT/ML VIAL 5000 UNIT SC ×2 (09:38→20:51)
[2022-11-27] MEDS: Acetaminophen 325 MG Tablet 650 MG PO (09:38)
[2022-11-27] MEDS: Calcium Carbonate 500 MG Tablet PO ×3 (09:38→18:02)
[2022-11-27] MEDS: Nystatin Powder 15gm Bottle 1 APPLIC TOPICAL ×2 (09:39→20:51)
[2022-11-27 09:45] VITALS: BP 110/72; PULSE 92; RESP 18; TEMP 36.4; O2SAT 96
[2022-11-27 10:03] VITALS: BP 110/72; PULSE 92; RESP 18; TEMP 36.4; O2SAT 96
[2022-11-27] MEDS: Menthol/Lanolin/Calamine/Znox 113 GM Tube 1 APPLIC TOPICAL ×3 (11:10→20:51)
--- NOTE | 2022-11-27 12:56 | CASEMGMT ---
Addendum entered by Ml Cisneros 11/27/22 15:21: Updated Kaitlin at [facility] that pt will dc to the rehab unit, HHC cancelled. Original Note: RN CM into pt room, pt present, pt is now agreeable to going to the Rehab unit. Updated SW.
--- NOTE | 2022-11-27 13:36 | CASEMGMT ---
Social Work Per marlon and RNCM, pt will need rehab prior to return home. SW met with pt and and introduced self and role of SW. : A list of Inpatient Rehab providers including quality and resource use data and consistent with the patient?s preferred geographic region, medical needs, and insurance network were provided from the CarePort Guide. Pt prefers [facility]. Referral made to Anastasia in [facility]. SW will await determination of acceptance. Plan: Inpatient Rehab, pending acceptance ISABELL Piedra
[2022-11-27 15:23] VITALS: BP 119/59; PULSE 89; RESP 18; TEMP 36.6; O2SAT 95
[2022-11-27 20:30] VITALS: BP 113/63; PULSE 94; PULSE 98; RESP 18; TEMP 37; O2SAT 94; O2SAT 98
[2022-11-28] MEDS: Nystatin Powder 15gm Bottle 1 APPLIC TOPICAL (05:15)
[2022-11-28 05:24] VITALS: BP 109/63; PULSE 92; RESP 18; TEMP 37.2; O2SAT 94
[2022-11-28] MEDS: Acetaminophen 325 MG Tablet 650 MG PO (06:51)
[2022-11-28 07:07] LABS: Hematocrit 27.1 % (40-54); Hemoglobin 8.7 g/dL (13.0-16.5); Mean Corp Hgb Conc 32.1 g/dL (32-36); Mean Corpuscular Hgb 31.3 pg (27.0-32.0); Mean Corpuscular Volume 97.5 fL (80-94); Mean Platelet Vol. 10.4 fl (6.2-12.0); Platelet Count 124 K/mm3 (150-450); RBC Distribution Width CV 13.6 % (11.6-14.6); RBC Distribution Width SD 48.7 fl (35.1-43.9); Red Blood Count 2.78 M/mm3 (4.6-6.2); White Blood Count 4.6 K/mm3 (4.4-11.0)
[2022-11-28 07:45] VITALS: O2SAT 95
[2022-11-28 09:02] VITALS: O2SAT 94
[2022-11-28 09:17] VITALS: O2SAT 96
[2022-11-28 09:40] VITALS: BP 117/59; PULSE 88; RESP 18; TEMP 36.8; O2SAT 98
[2022-11-28] MEDS: Heparin Injection (Vial) 5,000 UNIT/ML VIAL 5000 UNIT SC (09:44)
[2022-11-28] MEDS: Calcium Carbonate 500 MG Tablet PO ×2 (09:44→12:20)
[2022-11-28] MEDS: Menthol/Lanolin/Calamine/Znox 113 GM Tube 1 APPLIC TOPICAL (09:44)
--- NOTE | 2022-11-28 10:40 | TREXTCAR_ITS ---
Diet Diet Order/Speech Therapy: 11/25/22 16:39 Diet: Regular - General Type of Dietary Supplement:: Ensure Plus High Protein Routine Orders/Code Status Code Status: Full Code Wound(s) RIGHT ELBOW: Wound Type: Skin Tear RIGHT HIP: Wound Type: Surgical Incision Therapies Weight Bearing: Weight bearing as tolerated Physical Therapy: Eval and Treat Occupational Therapy: Eval and Treat Problem/Diagnosis (1) Fracture of right hip: Status: Acute Code(s): S72.001A - Fracture of unspecified part of neck of right femur, initial encounter for closed fracture Plan 1. Intertrochanteric fracture of the right hip secondary to mechanical fall- postop day #2 intramedullary nail insertion right femur-continue PT and OT, I will see if the patient makes adequate progress to go home tomorrow, if not, I would recommend to go to the rehab unit for short-term rehab services, patient understands this. #2 neutropenia, resolved at this time-continue to monitor CBC as appropriate #3 evidence of scarring of the lung-I do not feel the patient has any active pulmonary disease such as pneumonia or lung cancer #4 expected acute blood loss anemia secondary to right femoral fracture Total clinical time spent by myself addressing patient's medical issues, reviewing all of the data, collaborating with patient's care team: 35 minutes Allergies/Procedures Done in Hospital Allergies No Known Allergies Allergy (Verified 11/25/22 05:40) Procedures: - (Intramedullary nail insertion right hip) Type of Care/Length of Stay Estimated LOS: Convalescent Care Less Than 30 days Type of Care Needed: Acute Rehab Rehab Potential: Good Prognosis: Good Additional Orders/Day of Discharge H&P will serve as current which was dated: 11/25/22 Day of Discharge: 11/28/22 Discharge Plan Admission Admit Date/Time: 11/25/22 08:01 Primary Reason for Your Visit: right hip fracture Attending Provider: Johnny Aguillon Primary Care Provider: Johnny Shelton Consulting Providers: Hitesh Holguin Instructions Additional Instructions / Restrictions: Patient may shower, leave incision area open to air Discharge Orders/Prescriptions Prescriptions: New acetaminophen 325 mg Tablet 650 mg PO Q6H PRN PRN (Reason: Pain 1-10 Or Fever >100.7) Qty: 0 0RF calcium carbonate 200 mg calcium (500 mg) Tablet,Chewable 500 mg PO TIDCM Qty: 0 0RF heparin (porcine) 5,000 unit/mL Solution 5,000 unit subcut Q12 Qty: 0 0RF menthol-zinc oxide [Calmoseptine] 0.44-20.6 % Ointment 1 applic topical 4X/DAY Qty: 0 0RF Protocol: *Topical Application Instructions APPLICATION INSTRUCTIONS: apply to buttock Rx Instructions: Apply to affected areas 4 times a day sennosides-docusate sodium [Stool Softener-Stimulant Laxat] 8.6-50 mg Tablet 2 tab PO BID Qty: 1 0RF nystatin [Nyamyc] 100,000 unit/gram Powder 1 applic topical TID Qty: 0 0RF Protocol: *Topical Application Instructions APPLICATION INSTRUCTIONS: GROIN oxycodone 5 mg Tablet 10 mg PO Q4H PRN PRN (Reason: Pain Score 4-10) Qty: 0 0RF No Action NK Referrals / Follow Up: Johnny Shelton DO [Primary Care Provider] - Hitesh Holguin DO [Med Staff - Active Staff] - See Referral Note (In 2 weeks, Dr. Holguin will see the patient in the rehab unit) Disposition Disposition (needs filled in before D/C Order can be placed): Inpatient Rehab Unit/Facility (1) Fracture of right hip Qualifiers: Encounter type: initial encounter Fracture type: closed Qualified Code(s): S72.001A - Fracture of unspecified part of neck of right femur, initial encounter for closed fracture
--- NOTE | 2022-11-28 10:56 | CASEMGMT ---
Social Work Received notice from Anastasia in admissions at [facility]. Patient is accepted and be admitted today if medically ready. Updated Dr. Aguillon who will discharge today. Updated Anastasia, patient, and patient's RNs (Lucita and Carol). Asked patient if would like for this financial underwriter to call the . Patient reports is out getting her hair done, and children know to check at front line supervisor as to which room patient is located; no need for SW to call family. PLAN: [facility] inpatient Rehab unit today. No further SW needs requested or indicated. -DONNA Rivera
--- NOTE | 2022-11-28 11:01 | DS.PCM_ITS ---
Providers Date of Admission: 11/25/22 Date of Discharge: 11/28/22 Primary Care Physician: Dr. Johnny Shelton, DO Consultations 11/25/22 08:20 Consult: Orthopedics Routine Consulting Provider: Hitesh Holguin Reason for Consult: right hip fracture EMERGENT Consult: No MD Notified: Yes Date Notified: 11/25/22 Time Notified: 08:08 Method of Notification: Verbal Reason For Visit: RIGHT INTERTROCHANTERIC FRACTURE Diagnosis Discharge Diagnosis (1) Fracture of right hip: Status: Acute Code(s): S72.001A - Fracture of unspecified part of neck of right femur, initial encounter for closed fracture Qualifiers: Encounter type: initial encounter Fracture type: closed Qualified Code(s): S72.001A - Fracture of unspecified part of neck of right femur, initial encounter for closed fracture Plan 1. Intertrochanteric fracture of the right hip secondary to mechanical fall- postop day #2 intramedullary nail insertion right femur-continue PT and OT, I will see if the patient makes adequate progress to go home tomorrow, if not, I would recommend to go to the rehab unit for short-term rehab services, patient understands this. #2 neutropenia, resolved at this time-continue to monitor CBC as appropriate #3 evidence of scarring of the lung-I do not feel the patient has any active pulmonary disease such as pneumonia or lung cancer #4 expected acute blood loss anemia secondary to right femoral fracture Total clinical time spent by myself addressing patient's medical issues, reviewing all of the data, collaborating with patient's care team: 35 minutes Medications at Discharge Home Medications acetaminophen 325 mg tablet 650 mg (2 x 325 mg) PO Q6H PRN PRN Pain 1-10 Or Fever >100.7 #0 tabs 11/28/22 calcium carbonate 200 mg calcium (500 mg) chewable tablet 500 mg (2.5 x 200 mg calcium (500 mg)) PO TIDCM Supplement #0 tabs 11/28/22 heparin (porcine) 5,000 unit/mL injection solution 5,000 unit subcut Q12 Blood thinner #0 mL 11/28/22 menthol 0.44 %-zinc oxide 20.6 % topical ointment (Calmoseptine) 1 applic topical 4X/DAY Skin protection #0 grams 11/28/22 nystatin 100,000 unit/gram topical powder ([facility]) 1 applic topical TID Skin protection #0 grams 11/28/22 oxycodone 5 mg tablet 10 mg (2 x 5 mg) PO Q4H PRN PRN Pain Score 4-10 #0 tabs 11/28/22 sennosides 8.6 mg-docusate sodium 50 mg tablet (Stool Softener-Stimulant Laxative) 2 tab PO BID Constipation #1 TAB 11/28/22 Hospital Course Operations - (Intramedullary nail insertion right hip) Procedures None Summary of Care Provided Minutes Spent on Discharge: 31 Hospital Course: This 87-year-old white male was seen in the emergency room at [facility] with complaints of right hip pain following a mechanical fall at ground level at home. Work-up in the emergency room revealed the patient to have a right intertrochanteric hip fracture, patient was admitted to [facility] and seen in consultation by orthopedic surgery. He underwent an intramedullary nail insertion of the right hip, he did well postop and was seen by PT and OT. It was recommended that he continue skilled therapy and arranges were made for the patient to go to the rehab unit at [facility] and he consented to do so. On 11/28/2022, patient was seen and examined: On examination he appeared in good health and spirits. Vital signs as documented. Skin warm and dry and without overt rashes. Neck without JVD, neck was supple, trachea midline, thyroid was normal. Lungs clear bilaterally, normal air movement was noted. Heart exam notable for regular rhythm, normal sounds and absence of murmurs, rubs or gallops. Abdomen unremarkable and without evidence of organomegaly, masses, or abdominal aortic enlargement. Bowel sounds are present, abdomen is not distended. Extremities nonedematous, no cyanosis was noted, no clubbing was noted. Neuro: Cranial nerves II through XII are grossly intact, no focal motor deficits were noted, sensation to light touch and pinprick intact, motor exam 5/5 throughout. Psych: Patient is alert and oriented x3, he does not appear anxious or depressed, he does not appear agitated. Patient appears stable for transfer to the rehab unit at [facility] on 11/28/2022 in stable condition. Weight / BMI Weight Weight: 61.099 kg ABG / Lab / Microbiology Data 11/28/22 05:55 11/26/22 05:45 Laboratory: Laboratory Results - last 24 hr 11/28/22 05:55: WBC 4.6, RBC 2.78 L, Hgb 8.7 L, Hct 27.1 L, MCV 97.5 H, MCH 31.3, MCHC 32.1, RDW Std Deviation 48.7 H, RDW Coeff of Michael 13.6, Plt Count 124 L, MPV 10.4 Meaningful Use Info Meaningful Use Diagnoses (Choose all that apply): None applicable Discharge Plan Admission Admit Date/Time: 11/25/22 08:01 Primary Reason for Your Visit: right hip fracture Attending Provider: Johnny Aguillon Primary Care Provider: Johnny Shelton Consulting Providers: Hitesh Holguin Instructions Additional Instructions / Restrictions: Patient may shower, leave incision area open to air Discharge Orders/Prescriptions Prescriptions: New acetaminophen 325 mg Tablet 650 mg PO Q6H PRN PRN (Reason: Pain 1-10 Or Fever >100.7) Qty: 0 0RF calcium carbonate 200 mg calcium (500 mg) Tablet,Chewable 500 mg PO TIDCM Qty: 0 0RF heparin (porcine) 5,000 unit/mL Solution 5,000 unit subcut Q12 Qty: 0 0RF menthol-zinc oxide [Calmoseptine] 0.44-20.6 % Ointment 1 applic topical 4X/DAY Qty: 0 0RF Protocol: *Topical Application Instructions APPLICATION INSTRUCTIONS: apply to buttock Rx Instructions: Apply to affected areas 4 times a day sennosides-docusate sodium [Stool Softener-Stimulant Laxat] 8.6-50 mg Tablet 2 tab PO BID Qty: 1 0RF nystatin [Nyamyc] 100,000 unit/gram Powder 1 applic topical TID Qty: 0 0RF Protocol: *Topical Application Instructions APPLICATION INSTRUCTIONS: GROIN oxycodone 5 mg Tablet 10 mg PO Q4H PRN PRN (Reason: Pain Score 4-10) Qty: 0 0RF Referrals / Follow Up: Johnny Shelton DO [Primary Care Provider] - Hitesh Holguin DO [Med Staff - Active Staff] - See Referral Note (In 2 weeks, Dr. Holguin will see the patient in the rehab unit) Disposition Disposition (needs filled in before D/C Order can be placed): Inpatient Rehab Unit/Facility Charges/Coding Visit Charges Inpatient E&M: 17454 Disch Hosp >30min
--- NOTE | 2022-11-28 11:11 | NURSING ---
Report called to Mayela cerrato in rehab unit, will transfer after lunch
[2022-11-28 12:21] VITALS: PULSE 82; RESP 18; TEMP 37; O2SAT 93
== END 2022-11-28 12:45 | DRG 482 ==
LOC: ED 07:13 → MS3 08:21
PROVIDERS: Student in an Organized Health Care Education/Training Program; Admitting Provider Internal Medicine; Emergency Provider Emergency Medicine; PCP Family Medicine; Visit Provider Internal Medicine
PROC: 0QS606Z Reposition Right Upper Femur with Intramedullary Internal Fixation Device, Open Approach (ICD-10-PCS; CPT 27245; principal; 2022-11-25 12:30)
DX: S72.141A Displaced intertrochanteric fracture of right femur, initial encounter for closed fracture (principal); D70.9 Neutropenia, unspecified; W01.0XXA Fall on same level from slipping, tripping and stumbling without subsequent striking against object, initial encounter; J98.4 Other disorders of lung; Z87.891 Personal history of nicotine dependence
CPT/HCPCS: 36415; 71045; 73502; 76000; 80048; 80053; 82306; 85025; 85027; 85610; 85730; 86850; 86900; 86901; 93005; 97162; 97166; 97530; 97535; 99285; C1713; J7120; A4216; J2405

== ENCOUNTER 2022-11-28 12:58 | Inpatient (IN) | payer MEDICARE, OTHER, SELFPAY ==
[2021-09-09 14:02] VITALS: BMI 19.5
[2022-11-28 13:53] VITALS: BP 109/51; PULSE 76; RESP 16; TEMP 36.2; O2SAT 96; BMI 18.2
[2022-11-28 18:42] VITALS: O2SAT 94
[2022-11-28] MEDS: Calcium Carbonate 500 MG Tablet PO (18:54)
[2022-11-28] MEDS: Acetaminophen 325 MG Tablet 650 MG PO (18:59)
[2022-11-28 19:53] VITALS: BP 130/56; PULSE 85; RESP 15; TEMP 36.9; O2SAT 96
[2022-11-28 21:35] VITALS: O2SAT 96
[2022-11-28] MEDS: Heparin Injection (Vial) 5,000 UNIT/ML VIAL 5000 UNIT SC (21:46)
[2022-11-28] MEDS: Menthol/Lanolin/Calamine/Znox 113 GM Tube 1 APPLIC TOPICAL (21:49)
[2022-11-29 05:58] LABS: Hematocrit 27.3 % (40-54); Hemoglobin 8.9 g/dL (13.0-16.5); Mean Corp Hgb Conc 32.6 g/dL (32-36); Mean Corpuscular Hgb 31.1 pg (27.0-32.0); Mean Corpuscular Volume 95.5 fL (80-94); Mean Platelet Vol. 9.3 fl (6.2-12.0); Platelet Count 165 K/mm3 (150-450); RBC Distribution Width CV 13.4 % (11.6-14.6); RBC Distribution Width SD 47.7 fl (35.1-43.9); Red Blood Count 2.86 M/mm3 (4.6-6.2)
[2022-11-29 06:24] LABS: ALB/GLOB Ratio 0.6 RATIO (0.9-2.4); AST(SGOT) 40 U/L (15-37); Alanine Aminotransfer ALT/SGPT 29 U/L (16-61); Albumin, Serum 2.2 g/dL (3.2-5.0); Alkaline Phosphatase 90 U/L (45-117); Anion Gap 5 (5-15); BUN 24 mg/dL (7-18); BUN/Creat Ratio 31.1 RATIO (10-20); Calcium,Total 8.2 mg/dL (8.5-10.1); Chloride 100 mmol/L (98-107); Creatinine, Serum 0.77 mg/dL (0.70-1.30); EST Glomerular Filtration Rate 101 mL/min (>60); Est Glom Filt Rate - Afr Amer 123 mL/min (>60); Estimated Creatinine Clearance 42.51 ml/min; Globulin 3.7 g/dL (2.2-4.2); Glucose 97 mg/dL (74-106); Magnesium 2.1 mg/dL (1.6-2.6); Phosphorus 3.1 mg/dL (2.5-4.9); Potassium 4.5 mmol/L (3.5-5.1); Protein, Total 5.9 g/dL (6.4-8.2); Sodium Level 133 mmol/L (136-145)
[2022-11-29] MEDS: Senna/Docusate Sodium 1 Tablet 2 TABLET PO ×2 (08:10→21:53)
[2022-11-29] MEDS: Menthol/Lanolin/Calamine/Znox 113 GM Tube 1 APPLIC TOPICAL ×2 (08:10→21:54)
[2022-11-29] MEDS: Calcium Carbonate 500 MG Tablet PO ×3 (08:10→17:20)
[2022-11-29] MEDS: Heparin Injection (Vial) 5,000 UNIT/ML VIAL 5000 UNIT SC ×2 (08:11→21:52)
[2022-11-29 09:25] VITALS: BP 120/79; PULSE 78; RESP 15; TEMP 36.1; O2SAT 96
[2022-11-29] MEDS: Acetaminophen 325 MG Tablet 650 MG PO (11:32)
--- NOTE | 2022-11-29 13:12 | HP.PCM_ITS ---
[facility] - General General Date of Admission: 11/28/22 Date of Service: 11/29/22 Chief Complaint: Debility secondary to right hip fracture/ORIF HPI Narrative ELIESER VILLEGAS, is a 87 YO M well known to me from an admission to rehab in August of 2021 for Left hip fracture. 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 Hollingsworth in the past (the stent was changed in September of 2021 and again in September 2022). Elieser presented to the emergency department at [facility] on 11/25/2022 after a fall at home. X-rays revealed a right intertrochanteric fracture of the right femur. He was admitted to the hospitalist service and Dr. Holguin was consulted. He was taken to the OR by Dr. Holguin on 11/25/2022 for placement of an intramedullary nail in the right femur. Postoperatively the hemoglobin was 10.4, down from 14.8 at admission. Postoperatively he was seen by PT/OT and the recommendation was made for acute inpatient rehab following discharge. He was admitted to the acute inpatient rehab unit at [facility] on 11/28/2022 for 3 hours of therapy daily to restore function/independence at or near his level prior to his most recent fall. All lab from today was personally reviewed. White blood cell count today is 4.0 which is low. Hemoglobin is stable at 8.9 and platelets are within normal limits. They had been mildly decreased the past few days. Sodium is low at 133 which is chronic and the potassium is 4.5. The BUN is 24 with a creatinine of 0.77 which is within his baseline. Potassium and magnesium are within normal limits. Calcium corrected for hypoalbuminemia is within normal limits. A recent vitamin D level is low at 23.5. [facility] Medical History (Updated 11/29/22 @ 17:[address] Karla Gauthier DO) Abnormal results of thyroid function studies Alcohol use Arthritis Back pain Cancer Cholelithiasis Chronic bronchitis Closed intertrochanteric fracture of left femur Former smoker Heartburn History of edema History of SIADH Hydronephrosis Kidney failure Loss of hearing Low iron Prostate cancer Prostatic cancer Shortness of breath on exertion Wears glasses Wears partial dentures Home Medications acetaminophen 325 mg tablet 650 mg (2 x 325 mg) PO Q6H PRN PRN Pain 1-10 Or Fever >100.7 #0 tabs 11/28/22 [Rx Last Taken Unknown] calcium carbonate 200 mg calcium (500 mg) chewable tablet 500 mg (2.5 x 200 mg calcium (500 mg)) PO TIDCM Supplement #0 tabs 11/28/22 [Rx Last Taken Unknown] heparin (porcine) 5,000 unit/mL injection solution 5,000 unit subcut Q12 Blood thinner #0 mL 11/28/22 [Rx Last Taken Unknown] menthol 0.44 %-zinc oxide 20.6 % topical ointment (Calmoseptine) 1 applic topical 4X/DAY Skin protection #0 grams 11/28/22 [Rx Last Taken Unknown] nystatin 100,000 unit/gram topical powder (Nyamyc) 1 applic topical TID Skin protection #0 grams 11/28/22 [Rx Last Taken Unknown] oxycodone 5 mg tablet 10 mg (2 x 5 mg) PO Q4H PRN PRN Pain Score 4-10 #0 tabs 11/28/22 [Rx Last Taken Unknown] sennosides 8.6 mg-docusate sodium 50 mg tablet (Stool Softener-Stimulant Laxative) 2 tab PO BID Constipation #1 TAB 11/28/22 [Rx Last Taken Unknown] Allergy/AdvReac Type Severity Reaction Status Date / Time No Known Allergies Allergy Verified 11/25/22 05:40 Family History Other Heart disease Surgical History (Updated 11/29/22 @ 17:[address] Karla Gauthier DO) H/O hernia repair History of cystoscopy History of open reduction and internal fixation (ORIF) procedure History of open reduction and internal fixation (ORIF) procedure History of renal stent History of transurethral resection of prostate Hx of cystoscopy Status post appendectomy Social History household members: spouse and other details: 2 st0ry house. He sleeps downsta irs in a recliner. 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 PVR's are normal. Denies swollen legs during the day. Tells me he goes a large amount. ; Denies anorexia, change in weight or chills Eyes Eyes: Denies blurry vision, double vision, exophthalmos, nystagmus or ptosis ENT HEENT: Reports abnormal hearing; Denies dysphagia, headache(s), hearing loss, nasal congestion or sore throat Cardiovascular Cardiovascular: Denies chest pain, dyspnea on exertion, edema, lightheadedness, orthopnea, palpitations, paroxysmal nocturnal dyspnea or syncope Respiratory/Chest Respiratory/Chest: Reports cough and other Details: chronic productive cough, mostly in the AM ; Denies dyspnea, shortness of breath at rest, shortness of breath with exertion or wheezing Gastrointestinal Gastrointestinal: Reports constipation; Denies abdominal pain, diarrhea, dyspepsia, hematemesis, hematochezia, nausea or vomiting Genitourinary Genitourinary: Reports nocturia; Denies dysuria, hematuria, urinary frequency, urinary hesitancy, urinary incontinence or urinary urgency Musculoskeletal Musculoskeletal: Reports joint pain; Denies back pain, joint swelling or neck pain Integumentary Integumentary: Denies alopecia, jaundice, pruritus or rash Neurologic Neurologic: Denies confusion, disequilibrium, dizziness, focal weakness, headache(s), paresthesias, seizures or tremor(s) Psychiatric Psychiatric: Denies anxiety, depression, homicidal ideation or suicidal ideation Endocrine Endocrinology: Denies change in body appearance, polydipsia or polyuria Hematologic/Lymphatic Hematologic/Lymphatic: Reports easy bruising; Denies easy bleeding or lymphadenopathy Allergic/Immunologic Allergic/Immunologic: Denies rhinitis, eczemia or asthma Vital Signs Vital Signs Vital Signs: 11/28/22 13:53 11/28/22 19:53 11/28/22 18:42 Temperature 97.1 F L 98.4 F Temperature Source Temporal Temporal Pulse Rate 76 85 Respiratory Rate 16 15 Respiratory Effort Respiratory Depth Respiratory Pattern Blood Pressure 109/51 L 130/56 H Blood Pressure Mean 70 80 Blood Pressure Source Monitor Monitor Blood Pressure Position Semi-Fowlers Semi-Fowlers Blood Pressure Location Left Arm Left Arm Pulse Ox 96 96 94 Oxygen Delivery Method Room Air Room Air Room Air 11/28/22 21:35 11/29/22 09:25 Temperature 96.9 F L Temperature Source Temporal Pulse Rate 78 Respiratory Rate 15 Respiratory Effort Normal Non-Labored Respiratory Depth Normal Respiratory Pattern Normal Blood Pressure 120/79 Blood Pressure Mean 92 Blood Pressure Source Monitor Blood Pressure Position Semi-Fowlers Blood Pressure Location Left Arm Pulse Ox 96 96 Oxygen Delivery Method Room Air Room Air Weight Weight: 127 lb 5 oz Body Mass Index (BMI) 18.2 Physical Exam Const alert, oriented x3 and no apparent distress Constitutional Narrative: Making good eye contact, appropriate. Lying in bed watching TV. Pleasant and appropriate. General Appearance: cooperative, comfortable, well kempt and well developed HEENT moist oral mucous membranes Head and Scalp: normal to inspection, normocephalic and atraumatic Face and Sinus: face symmetric Eyes EOMs intact bilaterally, conjunctivae normal and no scleral icterus Eyes Narrative: wears glasses General Eye: normal appearance of both eyes Neck no lymphadenopathy, supple, no JVD and no carotid bruits General: trachea midline Chest Chest: symmetrical chest wall rise Resp normal respiratory effort, no use of accessory muscles and clear to auscultation bilaterally Resp Narrative: Not tachypneic and no conversational dyspnea. Diminished in the bases. Effort and Inspection: able to speak in complete sentences Cardio regular rate, regular rhythm, S1 normal heart sound, S2 normal heart sound, no murmurs, no rub and no gallops GI normal to inspection, nondistended, normoactive bowel sounds and non-tender GI Narrative: No guarding with palpation. Extremity no clubbing, cyanosis or edema Extremity Narrative: Negative Julio's and Teo's signs. Intact sensation to both feet. Peripheral Pulses: Yes pulses 2+ throughout Skin Skin Narrative: No rashes, no skin breakdown. General Skin Exam: no breakdown Rashes: no rashes Wound Narrative: Will examine the incision the next time the dressing is changed. Neuro oriented x3, CN's II-XII intact bilaterally and no focal motor deficits Motor Exam: strength 5/5 throughout Psych affect normal Psych Narrative: Appropriate, making good eye contact. Able to stay on topic and focus. No flight of ideas. Does not appear anxious or depressed. Conversant and relating well to staff. Results Lab / Micro Data 11/29/22 05:52 11/29/22 05:52 Labs: Laboratory Results - last 24 hr 11/29/22 05:52: WBC 4.0 L, RBC 2.86 L, Hgb 8.9 L, Hct 27.3 L, MCV 95.5 H, MCH 31.1, MCHC 32.6, RDW Std Deviation 47.7 H, RDW Coeff of Michael 13.4, Plt Count 165, MPV 9.3, Sodium 133 L, Potassium 4.5, Chloride 100, Carbon Dioxide 28.0, Anion Gap 5, BUN 24 H, Creatinine 0.77, Estim Creat Clear Calc 42.51, Est GFR (MDRD) Af Amer 123, Est GFR (MDRD) Non-Af 101, BUN/Creatinine Ratio 31.1 H, Glucose 97, Calcium 8.2 L, Phosphorus 3.1, Magnesium 2.1, Total Bilirubin 0.70, AST 40 H, ALT 29, Alkaline Phosphatase 90, Total Protein 5.9 L, Albumin 2.2 L, Globulin 3.7, Albumin/Globulin Ratio 0.6 L Assessment & Plan Assessment/Plan (1) Debility: (2) Fracture of right hip: QUALIFIERS: Encounter type: initial encounter Fracture type: closed Qualified Code(s): S72.001A - Fracture of unspecified part of neck of right femur, initial encounter for closed fracture (3) History of open reduction and internal fixation (ORIF) procedure: (4) History of open reduction and internal fixation (ORIF) procedure: (5) Acute blood loss anemia: (6) Vitamin D insufficiency: (7) Leukopenia: (8) Hyponatremia: (9) History of SIADH: (10) Hydronephrosis: QUALIFIERS: Hydronephrosis type: unspecified Qualified Code(s): N13.30 - Unspecified hydronephrosis (11) Former smoker: (12) Chronic bronchitis: QUALIFIERS: Chronic bronchitis type: simple Qualified Code(s): J41.0 - Simple chronic bronchitis (13) Prostatic cancer: PLAN: Plan PLAN PT for gait stability OT for ADL's ST for evaluation Analgesics as needed Bowel protocol Fall precautions Assess for Anxiety/Depression GI prophylaxis not necessary at this time, patient is asymptomatic with no history of peptic ulcer disease. DVT prophylaxis with Lovenox 40 mg subcu daily and following DC from rehab will use ASA 81 mg BID for a total of 4 weeks post op Follow up with PCP and Dr. Holguin following DC from IP Rehab AM lab including CMP, CBC, Mag and Phos-all personally reviewed Try Elavil 10 mg @ HS to help with nocturia and sleep disturbance. Start him on a vitamin D supplement Monitor for urine retention after initiation of Elavil.
--- NOTE | 2022-11-29 17:33 | PCM.RU.PYE ---
Admission Information Primary Diagnosis:: Debility secondary to a fall resulting in a right hip fracture/ORIF Status Changes from Prescreening?: No changes Identified Actual Problem List:: Skin Intergrity, Pain, ALteration in Cmfrt, Bowel, Constipation, Alteration in Sleep, Mobility Impaired and Self Care Deficit Potential Problem List:: DVT, Bleeding, Infection, UTI, Aspiration, Falls, Skin Integrity and Depression Risk of Complications DVT: LMWH and TORIN Hose Bleeding: Monitor Lab Values, Nursing to Teach Precautions for anti-coagulation therapy., Wound, if applicable, to be assessed every shift. and Stroke patients assessed for lethargy or change in status. Infection: Clinical Staff to Monitor for S/S of infection: and S/S of infection include fever, redness, warmth, etc. Urinary Tract Infection: Monitor for frequency, burning, discomfort, or incontinence. and Nursing will obtain urine sample for urinalysis and C&S when ordered. Aspiration: Clinical staff will monitor for coughing, drooling, congestion., Speech will evaluate swallowing and dsyphasia. and Nursing will monitor patient swallowing during meals. Falls: Patient will be evaluated for Fall Precautions and Patient will be placed on Fall Precautions as indicated per protocol. Skin Breakdown: Nursing will assess skin daily using assessment tool. and Nursing will place on Skin Breakdown Precautions as indicated. Pain: Clinical staff will assess patient's pain level per protocol., Medications will be given, if needed, and the pain level reassessed. and Other methods: Massage, distraction, decrease stimulus, etc. used PRN. Plan of Care Patient requires physician specializing in physical medicine and rehab oversight to provide close medical supervision of rehab issues including: Pain Management, Sleep Problems, Bowel and Bladder, Medical and co-morbidity Management, DVT prophylaxis, Rehabilitation Leadership and Coordination of treatment team Patient needs Physical Therapy: For a minimum of 1 hour and At least 5 out of 7 days Patient needs Physical Therapy to improve:: Mobility, Strengthening, Transfers, Stretching, ROM, Endurance, Stairs, Gait and Balance Patient needs Occupational Therapy: For a minimum of 1 hour and At least 5 out of 7 days Patient needs Occupational Therapy to improve ADL's incl.: Eating, Grooming, Bathing, Dressing, Toileting, Toilet transfers, Community Reintegration, Higher functioning activities, Household tasks, Adaptive Equipment, Splinting and Other activities as determined Patient requires 24/ Rehabilitation Nursing for: Pain Issues, Identifying and preventing risk factors, Monitoring and reporting current medical conditions, Assisting with ambulation, transfer, and all ADL's, Teaching patients about disease process and medications, Family teaching, Providing safe environment, Bowel and Bladder Issues, Skin integrity and Medication Management Patient needs Photographic Colorist/ Case Management for: Discharge Planning, Arranging Home Equipment or Services and Family Interventions Patient needs Dietary and Nutrition Services for: Adequate Nutrition, Nutritional Supplements and Nutritional Education Goals Patient will remain: free from falls and or injury at time of discharge. Patient will perform bed mobility at: MOD I level of assist. Patient will complete transfers from bed to chair at: MOD I level of assist. Patient will ambulate: 100 feet and with LRD Patient will complete upper body dressing at: MOD I level of assist. Patient will complete lower body dressing at: MOD I level of assist. Patient will complete toileting at: MOD I level of assist. Patient will perform bathing at: MOD I level of assist. Patient will complete grooming at: MOD I level of assist. Patient will complete home management skills at: MOD I level of assist. Patient will achieve: - (1 curb step and 3 steps with 1 handrail and a straight cane to allow access to his home.) Patient will have pain level of: of 3 or less Patient's skin will: remain intact Patient will receive: adequate nutrition. Discharge Planning Pt Prognosis for Sig. Practical Improv. w/in Reasonable Time: Good Estimated Length of stay (days): 14 Was Preadmission Assessment Accurate?: Yes
[2022-11-29 19:45] VITALS: BP 107/58; PULSE 85; RESP 16; TEMP 36.2; O2SAT 96
[2022-11-29] MEDS: Amitriptyline 10 MG Tablet PO (21:53)
[2022-11-29 22:00] VITALS: PULSE 85; RESP 16; O2SAT 96
[2022-11-30 07:30] VITALS: O2SAT 96
[2022-11-30 08:04] VITALS: BP 110/71; PULSE 81; RESP 16; TEMP 36.8; O2SAT 93
[2022-11-30] MEDS: Calcium Carbonate 500 MG Tablet PO ×3 (08:27→17:36)
[2022-11-30] MEDS: Senna/Docusate Sodium 1 Tablet 2 TABLET PO (08:27)
[2022-11-30] MEDS: Cholecalciferol (Vit D3) 125 MCG CAPSULE (5,000 UNITS) PO (08:28)
[2022-11-30] MEDS: Heparin Injection (Vial) 5,000 UNIT/ML VIAL 5000 UNIT SC ×2 (08:29→21:16)
[2022-11-30] MEDS: Menthol/Lanolin/Calamine/Znox 113 GM Tube 1 APPLIC TOPICAL ×2 (08:31→21:07)
[2022-11-30] MEDS: Acetaminophen 325 MG Tablet 650 MG PO (13:09)
[2022-11-30 19:49] VITALS: BP 100/55; PULSE 86; RESP 18; TEMP 36.7; O2SAT 94
[2022-11-30 20:34] VITALS: O2SAT 96
[2022-11-30 20:35] VITALS: O2SAT 94
[2022-11-30] MEDS: Amitriptyline 10 MG Tablet PO (21:06)
[2022-12-01 06:45] VITALS: O2SAT 96
[2022-12-01 08:00] VITALS: BP 134/61; PULSE 94; RESP 16; TEMP 36.8; O2SAT 93
[2022-12-01] MEDS: Cholecalciferol (Vit D3) 125 MCG CAPSULE (5,000 UNITS) PO (08:28)
[2022-12-01] MEDS: Calcium Carbonate 500 MG Tablet PO ×3 (08:28→17:19)
[2022-12-01] MEDS: Menthol/Lanolin/Calamine/Znox 113 GM Tube 1 APPLIC TOPICAL (08:28)
[2022-12-01] MEDS: Heparin Injection (Vial) 5,000 UNIT/ML VIAL 5000 UNIT SC ×2 (08:28→20:32)
[2022-12-01] MEDS: Acetaminophen 325 MG Tablet 650 MG PO (09:55)
[2022-12-01 19:26] VITALS: BP 113/52; PULSE 83; RESP 16; TEMP 36.3; O2SAT 96
[2022-12-01] MEDS: Amitriptyline 10 MG Tablet PO (20:37)
[2022-12-02 07:43] VITALS: BP 111/51; PULSE 83; RESP 16; TEMP 36.1; O2SAT 95
[2022-12-02] MEDS: Cholecalciferol (Vit D3) 125 MCG CAPSULE (5,000 UNITS) PO (09:20)
[2022-12-02] MEDS: Menthol/Lanolin/Calamine/Znox 113 GM Tube 1 APPLIC TOPICAL ×2 (09:20→20:46)
[2022-12-02] MEDS: Calcium Carbonate 500 MG Tablet PO ×3 (09:20→17:03)
[2022-12-02] MEDS: Heparin Injection (Vial) 5,000 UNIT/ML VIAL 5000 UNIT SC ×2 (09:20→20:45)
--- NOTE | 2022-12-02 15:43 | PCM.PROGNOTE ---
Subjective Subjective Afebrile VSS Maintaining appropriate oxygen saturation on RA Oral intake is good Discussed with nursing - no problems that need addressed Reviewed the PT/OT notes Medication list reviewed. Has refused to do ADL with OT so OT is doing strengthening exercises with the UE's and walking. He complains that he is not sleeping well at night.....the bed is uncomfortable. He does not want a sleep aid prescribed. Gets up multiple times a night to urinate and he is used to it. Tells me that the Amytriptyline is not helping. Does not want to try anything else because he wants to keep everything flowing because of the ureteral stent. If he changes his mind we could try a dose of Desmopressin at Bedtime. Kofi denies cough, lightheadedness, shortness of breath, chest pain, nausea/vomiting, constipation, calf pain and dysuria. He has not taken any oxycodone since arriving on rehab. Objective Data Objective Data Vital Signs: Vital Signs Temp Pulse Resp BP Pulse Ox O2 Del Method 96.9 F L 83 16 111/51 L 95 Room Air 12/02/22 07:43 12/02/22 07:43 12/02/22 07:43 12/02/22 07:43 12/02/22 07:43 12/02/22 07:43 Oxygen Delivery Method Room Air Weight: 127 lb 5 oz Body Mass Index (BMI) 18.2 Intake & Output: Intake and Output for Last 24 Hours 11/30/22 12/01/22 12/02/22 23:59 23:59 23:59 Intake Total 300 / 300 960 / 960 300 / 300 Output Total 1175 / 1175 450 / 450 620 / 620 Balance -875 / -875 510 / 510 -320 / -320 Lab / Micro Data 11/29/22 05:52 11/29/22 05:52 Physical Exam Const alert, oriented x3 and no apparent distress General Appearance: cooperative and well kempt HEENT moist oral mucous membranes Chest Chest: symmetrical chest wall rise Resp clear to auscultation bilaterally Resp Narrative: Not tachypneic and no conversational dyspnea. Diminished in the bases. Effort and Inspection: able to speak in complete sentences Cardio regular rate, regular rhythm, S1 normal heart sound, S2 normal heart sound, no murmurs, no rub and no gallops GI normal to inspection, nondistended, normoactive bowel sounds and non-tender GI Narrative: No guarding with palpation. Skin Skin Narrative: No rashes, no skin breakdown. General Skin Exam: no breakdown Rashes: no rashes Psych affect normal Assessment & Plan Assessment/Plan (1) Debility: (2) Fracture of right hip: QUALIFIERS: Encounter type: initial encounter Fracture type: closed Qualified Code(s): S72.001A - Fracture of unspecified part of neck of right femur, initial encounter for closed fracture (3) History of open reduction and internal fixation (ORIF) procedure: (4) Acute blood loss anemia: (5) Vitamin D insufficiency: (6) Leukopenia: (7) Hyponatremia: (8) History of SIADH: (9) Hydronephrosis: QUALIFIERS: Hydronephrosis type: unspecified Qualified Code(s): N13.30 - Unspecified hydronephrosis (10) Former smoker: (11) Chronic bronchitis: QUALIFIERS: Chronic bronchitis type: simple Qualified Code(s): J41.0 - Simple chronic bronchitis (12) Prostatic cancer: PLAN: Plan 1. Continue therapy 2. DC Elavil since it is not decreasing the nocturia Charges/Coding Visit Charges Inpatient E&M: 82776 Subs Hosp L2
[2022-12-02 19:31] VITALS: BP 104/53; PULSE 92; RESP 14; TEMP 37; O2SAT 96
[2022-12-02 20:45] VITALS: PULSE 92; RESP 14; O2SAT 96
[2022-12-02] MEDS: Amitriptyline 10 MG Tablet PO (20:45)
[2022-12-03 07:17] VITALS: BP 118/60; PULSE 77; RESP 18; TEMP 35.8; O2SAT 96
[2022-12-03] MEDS: Calcium Carbonate 500 MG Tablet PO ×3 (09:05→17:38)
[2022-12-03] MEDS: Heparin Injection (Vial) 5,000 UNIT/ML VIAL 5000 UNIT SC ×2 (09:06→21:20)
[2022-12-03] MEDS: Cholecalciferol (Vit D3) 125 MCG CAPSULE (5,000 UNITS) PO (09:06)
[2022-12-03] MEDS: Menthol/Lanolin/Calamine/Znox 113 GM Tube 1 APPLIC TOPICAL ×2 (09:11→21:22)
[2022-12-03] MEDS: Acetaminophen 325 MG Tablet 650 MG PO (10:45)
--- NOTE | 2022-12-03 14:47 | PCM.PROGNOTE ---
Subjective Subjective Kofi was seen on team rounds today. His and other family were present in the room. AF VSS maintaining appropriate O2 sat on RA He takes Tylenol for pain but, he is not taking anything else and tells me that his pain is minimal. He denies chest pain, shortness of breath, cough, palpitations, lightheadedness, nausea/vomiting, dysuria and calf tenderness. Tells me he feels pretty good and he is ready to go home. He told the nursing staff that he wants to go home tomorrow. Objective Data Objective Data Vital Signs: Vital Signs Temp Pulse Resp BP Pulse Ox O2 Del Method 96.4 F L 77 18 118/60 96 Room Air 12/03/22 07:17 12/03/22 07:17 12/03/22 07:17 12/03/22 07:17 12/03/22 07:17 12/03/22 07:17 Oxygen Delivery Method Room Air Weight: 127 lb 5 oz Body Mass Index (BMI) 18.2 Intake & Output: Intake and Output for Last 24 Hours 12/01/22 12/02/22 12/03/22 23:59 23:59 23:59 Intake Total 960 / 960 720 / 720 250 / 250 Output Total 450 / 450 920 / 920 900 / 900 Balance 510 / 510 -200 / -200 -650 / -650 Lab / Micro Data 11/29/22 05:52 11/29/22 05:52 Physical Exam Const alert, oriented x3 and no apparent distress General Appearance: cooperative and comfortable HEENT moist oral mucous membranes Resp normal respiratory effort, no use of accessory muscles and clear to auscultation bilaterally Resp Narrative: Not tachypneic and no conversational dyspnea. Diminished in the bases. Effort and Inspection: able to speak in complete sentences Cardio regular rate, regular rhythm, no murmurs, no rub and no gallops GI normal to inspection, nondistended, normoactive bowel sounds and non-tender GI Narrative: No guarding with palpation. Extremity no clubbing, cyanosis or edema and no calf tenderness General Extremity: Negative for edema Skin Skin Narrative: No rashes, no skin breakdown. Psych affect normal Psych Narrative: Appropriate, making good eye contact. Able to stay on topic and focus. No flight of ideas. Does not appear anxious or depressed. Conversant and relating well to staff. Assessment & Plan Assessment/Plan (1) Debility: (2) Fracture of right hip: QUALIFIERS: Encounter type: initial encounter Fracture type: closed Qualified Code(s): S72.001A - Fracture of unspecified part of neck of right femur, initial encounter for closed fracture (3) History of open reduction and internal fixation (ORIF) procedure: (4) Acute blood loss anemia: (5) Vitamin D insufficiency: (6) Leukopenia: (7) Hyponatremia: (8) History of SIADH: (9) Hydronephrosis: QUALIFIERS: Hydronephrosis type: unspecified Qualified Code(s): N13.30 - Unspecified hydronephrosis (10) Former smoker: (11) Chronic bronchitis: QUALIFIERS: Chronic bronchitis type: simple Qualified Code(s): J41.0 - Simple chronic bronchitis (12) Prostatic cancer: PLAN: Plan 1. Continue therapy 2. Kofi's thinks that he should stay until the DC date given by Medicare which is next Thursday. He tells me he will do what his thinks is best and he is agreeable to staying. Charges/Coding Visit Charges Inpatient E&M: 33600 Subs Hosp L2
[2022-12-03 19:32] VITALS: BP 119/53; PULSE 82; RESP 16; TEMP 36.6; O2SAT 93
[2022-12-03] MEDS: Senna/Docusate Sodium 1 Tablet 2 TABLET PO (21:22)
[2022-12-03] MEDS: Amitriptyline 10 MG Tablet PO (21:22)
[2022-12-03 22:00] VITALS: PULSE 93; RESP 16; O2SAT 95
[2022-12-04 07:35] VITALS: BP 120/59; PULSE 73; RESP 16; TEMP 36.2; O2SAT 96
[2022-12-04] MEDS: Calcium Carbonate 500 MG Tablet PO ×3 (09:02→18:02)
[2022-12-04] MEDS: Menthol/Lanolin/Calamine/Znox 113 GM Tube 1 APPLIC TOPICAL ×2 (09:04→22:28)
[2022-12-04] MEDS: Heparin Injection (Vial) 5,000 UNIT/ML VIAL 5000 UNIT SC ×2 (09:06→21:58)
[2022-12-04] MEDS: Cholecalciferol (Vit D3) 125 MCG CAPSULE (5,000 UNITS) PO (09:06)
--- NOTE | 2022-12-04 12:00 | PCM.PROGNOTE ---
Subjective Subjective Kofi was seen on team rounds today. His , dtr and son-in-law were present in the room for rounds. Afebrile VSS Maintaining appropriate oxygen saturation on RA Oral intake is good Discussed with nursing - Gets up frequently at night to urinate.......this is chronic. He denies dysuria and he tells me that Dr. Hollingsworth told him there is not anything he can do about this. I offered to try a few different medications to help with sleep and to cut down on the nocturia but, he refused and told me that he does not want his JJ stent to get blocked. Reviewed the PT/OT/ST notes Medication list reviewed. Denies cephalgia, lightheadedness, vertigo, shortness of breath at rest, nausea/vomiting/abdominal pain/diarrhea/constipation, dysuria and calf pain. He has shortness of of breath with exertion which is chronic and unchanged recently. He also has nocturia which is also chronic and has not changed recently. He tells me that the pain is minimal and Tylenol is working for him. Objective Data Objective Data Vital Signs: Vital Signs Temp Pulse Resp BP Pulse Ox O2 Del Method 97.2 F L 73 16 120/59 L 96 Room Air 12/04/22 07:35 12/04/22 07:35 12/04/22 07:35 12/04/22 07:35 12/04/22 07:35 12/04/22 07:35 Oxygen Delivery Method Room Air Weight: 127 lb 5 oz Body Mass Index (BMI) 18.2 Intake & Output: Intake and Output for Last 24 Hours 12/02/22 12/03/22 12/04/22 23:59 23:59 23:59 Intake Total 720 / 720 790 / 790 460 / 460 Output Total 920 / 920 1800 / 1800 630 / 630 Balance -200 / -200 -1010 / -1010 -170 / -170 Lab / Micro Data 12/09/22 05:19 12/09/22 05:19 Physical Exam Const alert Constitutional Narrative: Grumpy and refusing to do OT other than lifting arm weights. Likes to lay in bed when he is not doing therapy. Resp Resp Narrative: Markedly diminished throughout. Cough is unchanged and chronic. No wheezing and no rales. He is not tachypneic at rest and has no conversational dyspnea at rest. Cardio regular rate, regular rhythm, no murmurs and no gallops GI normal to inspection, nondistended, normoactive bowel sounds, soft to palpation and non-tender Extremity no calf tenderness Skin General Skin Exam: no breakdown Rashes: no rashes Psych Psych Narrative: Not depressed or anxious.......grumpy at times. Assessment & Plan Assessment/Plan (1) Debility: (2) Fracture of right hip: QUALIFIERS: Encounter type: initial encounter Fracture type: closed Qualified Code(s): S72.001A - Fracture of unspecified part of neck of right femur, initial encounter for closed fracture (3) History of open reduction and internal fixation (ORIF) procedure: PLAN: Will follow up with Dr. Holguin. (4) Acute blood loss anemia: PLAN: HGB is stable at OR from rehab. (5) Vitamin D insufficiency: PLAN: He was started on a calcium and vitamin D supplement....calcium 500 mg and Vitamin 400 mg BID with food. (6) Leukopenia: PLAN: Chronic (7) Hyponatremia: PLAN: Stable (8) History of SIADH: (9) Hydronephrosis: QUALIFIERS: Hydronephrosis type: unspecified Qualified Code(s): N13.30 - Unspecified hydronephrosis PLAN: Has a JJ stent and will continue to follow up with Dr. Hollingsworth. (10) Former smoker: PLAN: Quit in 2019. (11) Chronic bronchitis: QUALIFIERS: Chronic bronchitis type: simple Qualified Code(s): J41.0 - Simple chronic bronchitis PLAN: Chronic cough. Uses no inhalers. Sees Dr. Guerrero. Has chronic emphysematous changes, primarily in the upper lobes, on chest CT done this year and has a chronic productive cough. (12) Prostatic cancer: (13) Decubitus ulcer: QUALIFIERS: Pressure injury location: buttock Pressure injury stage: stage 2 Laterality: left Qualified Code(s): L89.322 - Pressure ulcer of left buttock, stage 2 PLAN: Has decubitus ulcers on both buttocks. Nursing is using Mepilex and Calmoseptine. PLAN: Plan 1. Continue therapy 2. Continue Mepilex and try to get him out of bed more. Usually is lying on his back. I instructed him to turn from side to side to keep the pressure off the buttocks. 3. Kofi wants to go home as soon as possible but, his family want him to stay to the 15th which is how long Medicare gave him......he does not want to stay but, will defer to his 's wishes. Plan on DC the to home with [facility]. Charges/Coding Visit Charges Inpatient E&M: 83483 Subs Hosp L2
--- NOTE | 2022-12-04 13:02 | CASEMGMT ---
Social Work IDT met with patient, , dtr and ROBIN for Team meeting. Discussed patient's progress in PT/OT/SN. Educated to Medicare approval of 14 days with [facility]C 12/12. Pt would like to DC sooner, but knows he can get stronger. SW offered HHC vs OP therapy at DC and inquired about DME. Pt prefers HHC and needs an elevated toilet seat and shower chair. Educated to purchasing the DME since insurance does not cover those. SW provided list of skilled HHC agencies via [employer]. CHUN will continue to follow for DC planning. YUMIKO BlakeW
[2022-12-04] MEDS: Acetaminophen 325 MG Tablet 650 MG PO (14:45)
[2022-12-04] MEDS: Amitriptyline 10 MG Tablet PO (21:59)
[2022-12-04] MEDS: Senna/Docusate Sodium 1 Tablet 2 TABLET PO (21:59)
[2022-12-04 22:00] VITALS: BP 134/64; PULSE 78; PULSE 85; RESP 15; RESP 17; TEMP 36.3; O2SAT 93
[2022-12-05 06:46] VITALS: BMI 18.1
[2022-12-05 07:42] VITALS: BP 122/57; PULSE 75; RESP 15; TEMP 36.2; O2SAT 94
[2022-12-05] MEDS: Calcium Carbonate 500 MG Tablet PO ×3 (08:51→16:31)
[2022-12-05] MEDS: Menthol/Lanolin/Calamine/Znox 113 GM Tube 1 APPLIC TOPICAL ×2 (09:01→20:44)
[2022-12-05] MEDS: Cholecalciferol (Vit D3) 125 MCG CAPSULE (5,000 UNITS) PO (09:02)
[2022-12-05] MEDS: Heparin Injection (Vial) 5,000 UNIT/ML VIAL 5000 UNIT SC ×2 (09:02→20:43)
--- NOTE | 2022-12-05 10:10 | NURSING ---
left massage at Dr Roa office regarding staple dc date and to see if can be removed while pt is in rehab
[2022-12-05] MEDS: Acetaminophen 325 MG Tablet 650 MG PO ×2 (14:04→20:42)
[2022-12-05 19:38] VITALS: BP 102/56; PULSE 79; RESP 16; TEMP 36.2; O2SAT 96
[2022-12-05] MEDS: Amitriptyline 10 MG Tablet PO (20:44)
[2022-12-05 22:00] VITALS: PULSE 79; RESP 16; O2SAT 94
[2022-12-06 07:57] VITALS: BP 106/57; PULSE 70; RESP 16; TEMP 36.3; O2SAT 95
[2022-12-06] MEDS: Calcium Carbonate 500 MG Tablet PO ×3 (08:39→17:52)
[2022-12-06] MEDS: Cholecalciferol (Vit D3) 125 MCG CAPSULE (5,000 UNITS) PO (08:40)
[2022-12-06] MEDS: Heparin Injection (Vial) 5,000 UNIT/ML VIAL 5000 UNIT SC ×2 (08:40→20:54)
[2022-12-06 10:00] VITALS: PULSE 82; RESP 16; O2SAT 96
[2022-12-06] MEDS: Menthol/Lanolin/Calamine/Znox 113 GM Tube 1 APPLIC TOPICAL ×2 (12:07→20:56)
[2022-12-06 19:04] VITALS: BP 116/50; PULSE 83; RESP 16; TEMP 36.2; O2SAT 96
[2022-12-06 20:15] VITALS: PULSE 83
[2022-12-06] MEDS: Amitriptyline 10 MG Tablet PO (20:54)
[2022-12-07 07:54] VITALS: BP 112/51; PULSE 72; RESP 16; TEMP 36.3; O2SAT 96
[2022-12-07] MEDS: Calcium Carbonate 500 MG Tablet PO ×3 (08:33→16:38)
[2022-12-07] MEDS: Heparin Injection (Vial) 5,000 UNIT/ML VIAL 5000 UNIT SC ×2 (08:33→20:29)
[2022-12-07] MEDS: Cholecalciferol (Vit D3) 125 MCG CAPSULE (5,000 UNITS) PO (08:34)
[2022-12-07] MEDS: Menthol/Lanolin/Calamine/Znox 113 GM Tube 1 APPLIC TOPICAL ×2 (08:39→20:32)
[2022-12-07 10:00] VITALS: PULSE 82; RESP 14
[2022-12-07 19:30] VITALS: BP 115/52; PULSE 52; RESP 17; TEMP 36.8; O2SAT 92
[2022-12-07] MEDS: Amitriptyline 10 MG Tablet PO (20:30)
[2022-12-08 07:50] VITALS: BP 125/62; PULSE 74; RESP 16; TEMP 35.9; O2SAT 98
[2022-12-08] MEDS: Cholecalciferol (Vit D3) 125 MCG CAPSULE (5,000 UNITS) PO (09:04)
[2022-12-08] MEDS: Calcium Carbonate 500 MG Tablet PO ×3 (09:04→16:26)
[2022-12-08] MEDS: Heparin Injection (Vial) 5,000 UNIT/ML VIAL 5000 UNIT SC ×2 (09:04→20:33)
[2022-12-08 11:13] VITALS: BMI 18.1
--- NOTE | 2022-12-08 17:24 | PCM.PROGNOTE ---
Subjective Subjective Afebrile VSS Maintaining appropriate oxygen saturation on RA Oral intake is good Discussed with nursing - no problems that need addressed Reviewed the PT/OT/ST notes Medication list reviewed. No complaints today. Rarely takes anything for pain. He is sleeping as well as can be expected with nocturia 4-[address] Hollingsworth told him there is nothing to do about this. He tells me 4-5 times a night but, there are only 2 urine ouptputs recorded last night from 10 PM to 8AM today. Denies dysuria. Denies hematuria Kofi denies lightheadedness, chest pain, shortness of breath at rest, palpitations, nausea/vomiting, dysuria and calf pain. Sutures are supposed to come out tomorrow. Objective Data Objective Data Vital Signs: Vital Signs Temp Pulse Resp BP Pulse Ox O2 Del Method 96.6 F L 74 16 125/62 H 98 Room Air 12/08/22 07:50 12/08/22 07:50 12/08/22 07:50 12/08/22 07:50 12/08/22 07:50 12/08/22 07:50 Oxygen Delivery Method Room Air Weight: 126 lb 15.78 oz Body Mass Index (BMI) 18.1 Intake & Output: Intake and Output for Last 24 Hours 12/06/22 12/07/22 12/08/22 23:59 23:59 23:59 Intake Total 1525 / 1525 1645 / 1645 700 / 700 Output Total 455 / 455 550 / 550 350 / 350 Balance 1070 / 1070 1095 / 1095 350 / 350 Lab / Micro Data 12/09/22 05:19 12/09/22 05:19 Physical Exam Const alert and no apparent distress Constitutional Narrative: He is cooperative when he wants to be but, sometimes he just says he is not doing anymore therapy and the therapists have to try and talk him into it. General Appearance: cooperative HEENT moist oral mucous membranes Resp normal respiratory effort, no use of accessory muscles and clear to auscultation bilaterally Resp Narrative: Not tachypneic and no conversational dyspnea. Diminished in the bases. Effort and Inspection: able to speak in complete sentences Cardio regular rate, regular rhythm, no murmurs, no rub and no gallops GI normal to inspection, nondistended, normoactive bowel sounds and non-tender GI Narrative: No guarding with palpation. Extremity no calf tenderness General Extremity: Negative for edema Skin Skin Narrative: No rashes, no skin breakdown. Psych affect normal Psych Narrative: Appropriate, making good eye contact. Able to stay on topic and focus. No flight of ideas. Does not appear anxious or depressed. Conversant and relating well to staff. Assessment & Plan Assessment/Plan (1) Debility: (2) Fracture of right hip: QUALIFIERS: Encounter type: initial encounter Fracture type: closed Qualified Code(s): S72.001A - Fracture of unspecified part of neck of right femur, initial encounter for closed fracture (3) History of open reduction and internal fixation (ORIF) procedure: (4) Acute blood loss anemia: (5) Vitamin D insufficiency: (6) Leukopenia: (7) Hyponatremia: (8) History of SIADH: (9) Hydronephrosis: QUALIFIERS: Hydronephrosis type: unspecified Qualified Code(s): N13.30 - Unspecified hydronephrosis (10) Former smoker: (11) Chronic bronchitis: QUALIFIERS: Chronic bronchitis type: simple Qualified Code(s): J41.0 - Simple chronic bronchitis (12) Prostatic cancer: PLAN: Plan 1. Continue therapy 2. Check a CBC and a BMP in the a.m. Charges/Coding Visit Charges Inpatient E&M: 34374 Subs Hosp L2
[2022-12-08 19:07] VITALS: BP 116/56; PULSE 75; RESP 17; TEMP 36.7; O2SAT 96
[2022-12-08] MEDS: Amitriptyline 10 MG Tablet PO (20:33)
[2022-12-09 05:26] LABS: Hematocrit 30.8 % (40-54); Hemoglobin 9.7 g/dL (13.0-16.5); Mean Corp Hgb Conc 31.5 g/dL (32-36); Mean Corpuscular Volume 98.4 fL (80-94); Mean Platelet Vol. 8.7 fl (6.2-12.0); Platelet Count 282 K/mm3 (150-450); RBC Distribution Width CV 14.6 % (11.6-14.6); RBC Distribution Width SD 52.2 fl (35.1-43.9); Red Blood Count 3.13 M/mm3 (4.6-6.2); White Blood Count 4.3 K/mm3 (4.4-11.0)
[2022-12-09 06:06] LABS: Anion Gap 4 (5-15); BUN 28 mg/dL (7-18); BUN/Creat Ratio 34.9 RATIO (10-20); Calcium,Total 8.4 mg/dL (8.5-10.1); Chloride 100 mmol/L (98-107); EST Glomerular Filtration Rate 97 mL/min (>60); Est Glom Filt Rate - Afr Amer 117 mL/min (>60); Glucose 98 mg/dL (74-106); Potassium 4.7 mmol/L (3.5-5.1); Sodium Level 134 mmol/L (136-145)
[2022-12-09 08:00] VITALS: BP 131/56; PULSE 67; RESP 18; TEMP 36.6; O2SAT 95
[2022-12-09] MEDS: Calcium Carbonate 500 MG Tablet PO ×3 (08:15→16:54)
--- NOTE | 2022-12-09 09:18 | NURSING ---
spoke with dr Roa office r/t Xray order for xrays that the doctor wants completed today prior to him seeing pt. office is to fax order to rehab
--- NOTE | 2022-12-09 09:24 | RAD_ITS ---
STUDY: X-RAY - PELVIS AND RIGHT HIP REASON FOR EXAM: Male, 87 years old. Recheck after surgery. TECHNIQUE: 2 views of the pelvis and hip. COMPARISON: Pelvis and hips dated November 25, 2022. FINDINGS: There is a non-specific bowel gas pattern. Clips projected over the symphysis and pigtail catheter projected over the mid pelvis. Superficial skin migue in the proximal right thigh and pelvis. Osteopenia. Intramedullary jd with interlocking dynamic cancellus screw at the previously described intertrochanteric fracture site. Anatomic alignment at the fracture site with callus formation. No complicating features. RAD/HIP, UNI W/ Pelvis 2-3 Views IMPRESSION: ORIF of right proximal femur with no complicating features. Electronically Signed: Ahmet Ardon MD at 14:54 EDT ,
[2022-12-09] MEDS: Cholecalciferol (Vit D3) 125 MCG CAPSULE (5,000 UNITS) PO (10:04)
[2022-12-09] MEDS: Senna/Docusate Sodium 1 Tablet 2 TABLET PO ×2 (10:05→20:19)
[2022-12-09] MEDS: Heparin Injection (Vial) 5,000 UNIT/ML VIAL 5000 UNIT SC ×2 (10:05→20:18)
[2022-12-09] MEDS: Menthol/Lanolin/Calamine/Znox 113 GM Tube 1 APPLIC TOPICAL ×2 (10:06→20:16)
[2022-12-09 11:22] VITALS: PULSE 91; RESP 16
[2022-12-09 15:54] VITALS: BP 124/58; PULSE 74; RESP 16; TEMP 36.8; O2SAT 94
--- NOTE | 2022-12-09 16:59 | PCM.PN.ORT ---
Subjective Subjective Patient seen and examined. He reports some soreness in his right hip but states his pain is well controlled. He denies any fevers, chills, nausea vomiting, chest pain or shortness of breath. He states he has been walking with physical therapy with the assistance of a walker. Objective Data Objective Data Vital Signs: Vital Signs Temp Pulse Resp BP Pulse Ox O2 Del Method 98.2 F 74 16 124/58 H 94 Room Air 12/09/22 15:54 12/09/22 15:54 12/09/22 15:54 12/09/22 15:54 12/09/22 15:54 12/09/22 15:54 Oxygen Delivery Method Room Air Weight: 126 lb 15.78 oz Body Mass Index (BMI) 18.1 Intake & Output: Intake and Output for Last 24 Hours 12/07/22 12/08/22 12/09/22 23:59 23:59 23:59 Intake Total 1645 / 1645 1790 / 1790 680 / 680 Output Total 550 / 550 600 / 600 600 / 600 Balance 1095 / 1095 1190 / 1190 80 / 80 Lab / Micro Data 12/09/22 05:19 12/09/22 05:19 Labs: Laboratory Results - last 24 hr 12/09/22 05:19: WBC 4.3 L, RBC 3.13 L, Hgb 9.7 L, Hct 30.8 L, MCV 98.4 H, MCH 31.0, MCHC 31.5 L, RDW Std Deviation 52.2 H, RDW Coeff of Michael 14.6, Plt Count 282, MPV 8.7, Sodium 134 L, Potassium 4.7, Chloride 100, Carbon Dioxide 30.0, Anion Gap 4 L, BUN 28 H, Creatinine 0.80, Estim Creat Clear Calc 53.00, Est GFR (MDRD) Af Amer 117, Est GFR (MDRD) Non-Af 97, BUN/Creatinine Ratio 34.9 H, Glucose 98, Calcium 8.4 L Radiography Diagnostic Testing: Radiology Impression Hip/Pelvis X-Ray 12/09/22 09:24 IMPRESSION: ORIF of right proximal femur with no complicating features. Electronically Signed: Ahmet Ardon MD at 14:54 EDT , Physical Exam Narrative General - A&Ox3, NAD. VSS/AF Right lower extremity -lateral hip and thigh incisions are well approximated with migue. No erythema or drainage. No pain with logroll of right hip. SILT Sural, Saphenous, SPN, DPN, Tibial N. distributions. DP, PT 2+. BCR. DF, PF, EHL 5/5. No calf TTP. Assessment & Plan Assessment/Plan (1) History of open reduction and internal fixation (ORIF) procedure: PLAN: Patient doing well 2 weeks status post right femur CMN -Continue weightbearing as tolerated right lower extremity -Staple removal today -X-rays reviewed from today 12/09/2022 demonstrate maintained alignment of the right hip fracture without evidence of screw cut out. No interval healing is noted as expected. -Continue to mobilize with PT/OT -Defer to primary team regarding when safe for discharge home -Plan to follow-up with me in the outpatient setting in 1 month with x-rays upon arrival -Okay for shower and leave incisions open to air. No tub soaks until 6 weeks postoperatively. -Please not hesitate to call if any questions or concerns arise.
--- NOTE | 2022-12-09 17:45 | PN_ITS ---
Subjective Subjective Afebrile VSS Maintaining appropriate oxygen saturation on RA Oral intake is good Discussed with nursing - no problems that need addressed Reviewed the PT/OT notes Medication list reviewed. All lab drawn this morning was personally reviewed. White blood cell count is low at 4.3 and the hemoglobin is 9.7 which is stable. Platelets are normal at 282,000 today. Sodium is mildly decreased at 134 but is stable. Potassium is 4.7 and the BUN is 28 with a creatinine of 0.8. Ed has no complaints today. He denies chest pain, lightheadedness, palpitations, nausea/vomiting/abdominal pain, calf pain and dysuria. He has not taken anything for pain since 12/05/2022. He has a stage II decubitus on the left buttock but denies pain in the area. Objective Data Objective Data Vital Signs: Vital Signs Temp Pulse Resp BP Pulse Ox O2 Del Method 98.2 F 74 16 124/58 H 94 Room Air 12/09/22 15:54 12/09/22 15:54 12/09/22 15:54 12/09/22 15:54 12/09/22 15:54 12/09/22 15:54 Oxygen Delivery Method Room Air Weight: 126 lb 15.78 oz Body Mass Index (BMI) 18.1 Intake & Output: Intake and Output for Last 24 Hours 12/07/22 12/08/22 12/09/22 23:59 23:59 23:59 Intake Total 1645 / 1645 1790 / 1790 680 / 680 Output Total 550 / 550 600 / 600 700 / 700 Balance 1095 / 1095 1190 / 1190 -20 / -20 Lab / Micro Data 12/09/22 05:19 12/09/22 05:19 Labs: Laboratory Results - last 24 hr 12/09/22 05:19: WBC 4.3 L, RBC 3.13 L, Hgb 9.7 L, Hct 30.8 L, MCV 98.4 H, MCH 31.0, MCHC 31.5 L, RDW Std Deviation 52.2 H, RDW Coeff of Michael 14.6, Plt Count 282, MPV 8.7, Sodium 134 L, Potassium 4.7, Chloride 100, Carbon Dioxide 30.0, Anion Gap 4 L, BUN 28 H, Creatinine 0.80, Estim Creat Clear Calc 53.00, Est GFR (MDRD) Af Amer 117, Est GFR (MDRD) Non-Af 97, BUN/Creatinine Ratio 34.9 H, Glucose 98, Calcium 8.4 L Radiography Diagnostic Testing: Radiology Impression Hip/Pelvis X-Ray 12/09/22 09:24 IMPRESSION: ORIF of right proximal femur with no complicating features. Electronically Signed: Ahmet Ardon MD at 14:54 EDT Reading Location ID and State: [facility] / [place] , Service support , Physical Exam Const alert, oriented x3 and no apparent distress Resp normal respiratory effort, no use of accessory muscles and clear to auscultation bilaterally Resp Narrative: RR increases with exertion. Effort and Inspection: able to speak in complete sentences Auscultation: diminished lung sounds diffuse Cardio regular rate, regular rhythm, no murmurs and no gallops GI normal to inspection, nondistended, normoactive bowel sounds, soft to palpation and non-tender GI Narrative: No guarding with palpation Extremity no clubbing, cyanosis or edema and no calf tenderness Extremity Narrative: No ankle edema but, he does have edema in the Left posterior upper thigh and behind the knee. No calf pain. Skin General Skin Exam: no breakdown Rashes: no rashes Wound Narrative: the decubitus ulcer on the R buttock is healed. The stage 2 on the left buttock does not have any erythema around the wound and there is no DC or swelling around the area. I once again told him he needs to keep the Mepilex on and quit taking it off to Air/dry out. Psych Psych Narrative: Appropriate, making good eye contact. Able to stay on topic and focus. No flight of ideas. Does not appear anxious or depressed. Conversant and relating well to staff. Assessment & Plan Assessment/Plan (1) Debility: (2) Fracture of right hip: QUALIFIERS: Encounter type: initial encounter Fracture type: closed Qualified Code(s): S72.001A - Fracture of unspecified part of neck of right femur, initial encounter for closed fracture (3) History of open reduction and internal fixation (ORIF) procedure: (4) Acute blood loss anemia: (5) Vitamin D insufficiency: (6) Leukopenia: PLAN: Chronic (7) Hyponatremia: PLAN: Stable (8) History of SIADH: (9) Hydronephrosis: QUALIFIERS: Hydronephrosis type: unspecified Qualified Code(s): N13.30 - Unspecified hydronephrosis PLAN: Has a JJ stent (10) Former smoker: (11) Chronic bronchitis: QUALIFIERS: Chronic bronchitis type: simple Qualified Code(s): J41.0 - Simple chronic bronchitis PLAN: Chronic cough. Use no inhalers. sees Dr. Guerrero. Has chronic emphysematous changes, primarily in the upper lobes, on chest CT done this year. (12) Prostatic cancer: (13) Decubitus ulcer: QUALIFIERS: Pressure injury location: buttock Pressure injury stage: stage 2 Laterality: left Qualified Code(s): L89.322 - Pressure ulcer of left buttock, stage 2 PLAN: Plan 1. Continue therapy 2. Continue Mepilex and have the patient turn side to side every 1-2 hours during the day to decrease the pressure on his buttocks. 3. Plan discharge on 12/12/2022 Home with home health care. Charges/Coding Visit Charges Inpatient E&M: 20342 Subs Hosp L2
[2022-12-09 19:48] VITALS: BP 120/61; PULSE 69; RESP 16; TEMP 36.6; O2SAT 95
[2022-12-09] MEDS: Amitriptyline 10 MG Tablet PO (20:17)
[2022-12-09 22:00] VITALS: PULSE 84; RESP 15; O2SAT 94
[2022-12-10 07:36] VITALS: BP 109/60; PULSE 70; RESP 15; TEMP 36.2; O2SAT 91
[2022-12-10] MEDS: Cholecalciferol (Vit D3) 125 MCG CAPSULE (5,000 UNITS) PO (08:32)
[2022-12-10] MEDS: Heparin Injection (Vial) 5,000 UNIT/ML VIAL 5000 UNIT SC ×2 (08:33→20:45)
[2022-12-10] MEDS: Senna/Docusate Sodium 1 Tablet 2 TABLET PO ×2 (08:33→20:55)
[2022-12-10] MEDS: Calcium Carbonate 500 MG Tablet PO ×2 (08:33→12:08)
[2022-12-10] MEDS: Menthol/Lanolin/Calamine/Znox 113 GM Tube 1 APPLIC TOPICAL ×2 (08:39→20:55)
--- NOTE | 2022-12-10 10:08 | CASEMGMT ---
Social Work SW phoned to notify of change in time for Team meeting. Confirmed pt's DC 12/12 and pt still wanting [facility] PT. confirmed. SW offered to provide list of skilled HHC agencies but denied and agreed to [facility]. Confirmed no DME needs. SW phoned referral to [facility] for PT. Plan: DC home with 12/12, [facility] PT Lizzy Benson [employer]
[2022-12-10 19:21] VITALS: BP 126/56; PULSE 82; RESP 95; TEMP 36.7; O2SAT 95
[2022-12-10] MEDS: Amitriptyline 10 MG Tablet PO (20:46)
[2022-12-10 21:28] VITALS: PULSE 83; RESP 15; O2SAT 95
[2022-12-11 07:31] VITALS: BP 114/60; PULSE 73; RESP 16; TEMP 36.3; O2SAT 94
[2022-12-11] MEDS: Cholecalciferol (Vit D3) 125 MCG CAPSULE (5,000 UNITS) PO (08:01)
[2022-12-11] MEDS: Heparin Injection (Vial) 5,000 UNIT/ML VIAL 5000 UNIT SC ×2 (08:01→20:02)
[2022-12-11] MEDS: Calcium Carbonate 500 MG Tablet PO ×3 (08:01→17:02)
[2022-12-11] MEDS: Menthol/Lanolin/Calamine/Znox 113 GM Tube 1 APPLIC TOPICAL ×2 (08:04→20:05)
--- NOTE | 2022-12-11 10:00 | CASEMGMT ---
Addendum entered by Lizzy Benson 12/11/22 14:20: requesting SN to be added to [facility] order for dressing change on buttock. SW phoned [facility] and they can do SOC 12/14. Original Note: Social Work IDT met with patient, , dtr and ROBIN for Team meeting. Discussed patient's progress in PT/OT/SN. Confirmed pt will DC home with 12/12 with [facility] PT. No other needs. Lizzy Benson, SIMULATION TECH GAS APPLIANCE INSTALLER
--- NOTE | 2022-12-11 10:13 | PCM.PROGNOTE ---
Subjective Subjective Kofi was seen on team rounds today. His , daughter and son-in-law are present in the room. All questions were answered to their satisfaction. Afebrile VSS Maintaining appropriate oxygen saturation on RA Oral intake is good Discussed with nursing - the decub on the Left buttock is not healing per nursing. He insists on taking the Mepilex off to air it out. I explained what the Mepilex does to cut down friction and it helps to keep the area moist so that epithelialization can occur. It will not heal if it is dried out. Reviewed the PT/OT notes Medication list reviewed. Has not had any Tylenol since 12/05/2022 and has not taken any oxycodone since arrival on rehab. Denies pain, CP, SOB, palpitations, dysuria and calf pain. He has a chronic cough and there has been no change in his cough. I asked him about vaccines and he told me he last had a flu shot a few years ago. He has hyperinflation on the CXR and also has scarring and atelectasis in the R mid lung.......possibly from PNA he had a few years ago. CT chest in june BS's are very diminished, suman in the bases. Has never had PFT's at [facility]. CT chest done in June of this year showed emphysematous changes suman in the upper lobes. He has a stable 1.8X1.1 cm nodule in the posterior medial segment of the KKK. There was a stable mildly enlarged pretracheal lymph node measuring 2X1.1 cm. 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 He sees Dr. Guerrero. He denies pain in the hip. He also denies pain in the left buttock. No CP and no SOB at rest. He gets SOB with exertion and this limits he is able to ambulate. He tells me that he feels ready to go home. Objective Data Objective Data Vital Signs: Vital Signs Temp Pulse Resp BP Pulse Ox O2 Del Method 97.3 F L 73 16 114/60 94 Room Air 12/11/22 07:31 12/11/22 07:31 12/11/22 07:31 12/11/22 07:31 12/11/22 07:31 12/11/22 07:31 Oxygen Delivery Method Room Air Weight: 126 lb 15.78 oz Body Mass Index (BMI) 18.1 Intake & Output: Intake and Output for Last 24 Hours 12/09/22 12/10/22 12/11/22 23:59 23:59 23:59 Intake Total 1200 / 1200 1140 / 1140 490 / 490 Output Total 1100 / 1200 1385 / 1385 350 / 350 Balance 100 / 0 -245 / -245 140 / 140 Lab / Micro Data 12/09/22 05:19 12/09/22 05:19 Physical Exam Const alert and no apparent distress Constitutional Narrative: He is cooperative when he wants to be but, sometimes he just says he is not doing anymore therapy and the therapists have to try and talk him into it. General Appearance: cooperative HEENT moist oral mucous membranes Eyes EOMs intact bilaterally, conjunctivae normal and no scleral icterus Eyes Narrative: wears glasses General Eye: normal appearance of both eyes Neck no lymphadenopathy, supple, no JVD and no carotid bruits General: trachea midline Chest Chest: symmetrical chest wall rise Resp normal respiratory effort and clear to auscultation bilaterally Resp Narrative: RR increases with exertion. Effort and Inspection: Negative for tachypneic, respiratory distress or labored Auscultation: diminished lung sounds diffuse Cardio regular rate, regular rhythm and no gallops GI normal to inspection, nondistended, normoactive bowel sounds, soft to palpation and non-tender GI Narrative: No guarding with palpation Extremity no clubbing, cyanosis or edema and no calf tenderness Extremity Narrative: No ankle edema but, he does have edema in the Left posterior upper thigh and behind the knee. No calf pain. General Extremity: Negative for cyanosis Skin Skin Narrative: No rashes, no skin breakdown. General Skin Exam: no breakdown Rashes: no rashes Wound Narrative: the decubitus ulcer on the R buttock is healed. The stage 2 on the left buttock does not have any erythema around the wound and there is no DC or swelling around the area. I once again told him he needs to keep the Mepilex on and quit taking it off to Air/dry out. Neuro oriented x3, CN's II-XII intact bilaterally and no focal motor deficits Motor Exam: strength 5/5 throughout Psych affect normal Psych Narrative: Appropriate, making good eye contact. Able to stay on topic and focus. No flight of ideas. Does not appear anxious or depressed. Conversant and relating well to staff. Assessment & Plan Assessment/Plan (1) Debility: (2) Fracture of right hip: QUALIFIERS: Encounter type: initial encounter Fracture type: closed Qualified Code(s): S72.001A - Fracture of unspecified part of neck of right femur, initial encounter for closed fracture (3) History of open reduction and internal fixation (ORIF) procedure: (4) Acute blood loss anemia: (5) Vitamin D insufficiency: (6) Leukopenia: (7) Hyponatremia: (8) History of SIADH: (9) Hydronephrosis: QUALIFIERS: Hydronephrosis type: unspecified Qualified Code(s): N13.30 - Unspecified hydronephrosis (10) Former smoker: (11) Chronic bronchitis: QUALIFIERS: Chronic bronchitis type: simple Qualified Code(s): J41.0 - Simple chronic bronchitis (12) Prostatic cancer: (13) Decubitus ulcer: QUALIFIERS: Pressure injury location: buttock Pressure injury stage: stage 2 Laterality: left Qualified Code(s): L89.322 - Pressure ulcer of left buttock, stage 2 PLAN: Plan 1. Plan DC home tomorrow with [facility]. I asked the SW to have wound care follow up with him at home to make sure the decub on the left buttock is healing. He is very susceptible to decubitus ulcers because he spends a large part of the day in bed and he has muscle atrophy and not much subcutaneous padding in the buttocks. I am going to recommend that he continue the Ensure Plus BID post DC. 2. Since he has significant lung disease I recommended to him that he consider vaccines for RSV, influenza and COVID this fall. He will discuss with PCP and/or Dr. Guerrero. Charges/Coding Visit Charges Inpatient E&M: 37809 Subs Hosp L2
--- NOTE | 2022-12-11 13:52 | DCINST_ITS ---
Discharge Instructions Diet Discharge Diet: - (Regular diet. Please continue to drink Ensure Plus twice a day to promote healing of both the fracture and the ulcer on the left buttock. ) Activity Discharge Activity: May Not Drive, May Shower and Use Walker Weight Bearing Status: Full weight bearing Keep extremity elevated above heart level: Left Leg Dressing / Incision Call your doctor if your incision/area has: Sudden Increased Bleeding, Increased Pain/ Swelling, Increased Redness, Foul Smelling Discharge and Swelling at the incision site Call your doctor if you observe: Fever of 101 or Higher, Inability to urinate, Shortness of breath, Fainting spells, Chest pain, Increased palpitations (irregular heartbeat), Calf discomfort and Uncontrolled pain Suture Line Care: Avoid Pulling/Pushing and Avoid Pinching/Bending Cleanse incision/area with: Soap & Water Follow Up Care Please Follow Up With: Hitesh Holguin DO When: January 12 at 10 AM. You will also need to follow up with Dr. Shelton on 12/17/22 at 11 AM. Test Results: Test results from this visit will be discussed in further detail at your follow- up appointment, if applicable. Pending Tests Upon Discharge: none Discharge Plan Admission Admit Date/Time: 11/28/22 12:58 Primary Reason for Your Visit: Debiity due to a left hip fracture. Attending Provider: Karla Gauthier Primary Care Provider: Johnny Shelton Instructions Patient Instructions: Adult Immunization Schedule, Caring for Your Incision Additional Instructions / Restrictions: 1. It was good to have you back Kofi. You have done well in rehab and I think you will be safe going home. 2. I looked at the recent CT of the chest you had in June of this year and the recent chest XRAY when you came into the hospital. You have some significant chronic lung disease.......your CT scan shows changes consistent with emphysema and your sx with chronic productive cough are consistent with chronic bronchitis. I recommend you consider getting vaccinated for Flu, COVID and RSV (respiratory syncytial virus). These viruses are very dangerous for people with chronic lungs disease and are associated with a lot of pts with COPD from these viruses every year. It would be best to get vaccinated and also to stay away from anyone who is sick with sore throat, cough, congestion and sneezing.......or you could wear a mask when you are out in public. When people were wearing masks during COVID the Flu was almost non-existent. Masks work. 3. Try and get up every hour when you get home and talk a walk in the house........it keeps the stiffness in the hip under control and it is good to move to prevent blood clots. 4. After a hip surgery you are at increased risk for blood clots for 4 weeks after surgery, due to inactivity and lying in bed a lot. you have been getting a shot of Heparin, which is an anticoagulant, twice a day to prevent blood clots. You are now 16 days post op. That means you need to take something to prevent blood clots for another 14 days. I am sending you home on 1 baby aspirin twice a day with food for the next 2 weeks. December 25 will be the last day you need to take the aspirin. Take it with food so it does not upset your stomach. 5. I am sending you home with a small amount of pain medication, just in case, you have some pain after getting home. 6. If you or your family have any questions after leaving rehab please do not hesitate to call me. OFFICE: [phone] CELL: [phone] Discharge Orders/Prescriptions Prescriptions: New calcium carbonate-vitamin D3 [Calcium 500 With D] 500 mg-10 mcg (400 unit) tablet 1 tab PO BID Qty: 60 0RF Rx Instructions: 1 tab twice a day with food to prevent bone loss oxycodone 5 mg tablet 5 mg PO Q6H PRN (Reason: pain) 7 Days Qty: 12 0RF Continued menthol-zinc oxide [Calmoseptine] 0.44-20.6 % Ointment 1 applic topical 4X/DAY Qty: 113 3RF Protocol: *Topical Application Instructions APPLICATION INSTRUCTIONS: apply to buttock Rx Instructions: Apply to affected areas 4 times a day acetaminophen 325 mg Tablet 650 mg PO Q6H PRN PRN (Reason: Pain 1-10 Or Fever >100.7) Qty: 0 0RF Discontinued calcium carbonate 200 mg calcium (500 mg) Tablet,Chewable 500 mg PO TIDCM Qty: 0 0RF heparin (porcine) 5,000 unit/mL Solution 5,000 unit subcut Q12 Qty: 0 0RF sennosides-docusate sodium [Stool Softener-Stimulant Laxat] 8.6-50 mg Tablet 2 tab PO BID Qty: 1 0RF nystatin [Nyamyc] 100,000 unit/gram Powder 1 applic topical TID Qty: 0 0RF Protocol: *Topical Application Instructions APPLICATION INSTRUCTIONS: GROIN oxycodone 5 mg Tablet 10 mg PO Q4H PRN PRN (Reason: Pain Score 4-10) Qty: 0 0RF Referrals / Follow Up: Johnny Shelton DO [Primary Care Provider] - 12/17/22 11:00 am Hitesh Holguin DO [Med Staff - Active Staff] - 01/12/23 10:00 am Disposition Disposition (needs filled in before D/C Order can be placed): Home Health Service
--- NOTE | 2022-12-11 14:52 | PCM.DC.SUM ---
Providers Date of Admission: 11/28/22 Date of Discharge: 12/12/22 Primary Care Physician: Dr. Johnny Shelton DO Reason For Visit: RIGHT HIP FRACTURE Diagnosis Discharge Diagnosis (1) Debility: Status: Acute Code(s): R53.81 - Other malaise (2) Fracture of right hip: Status: Acute Code(s): S72.001A - Fracture of unspecified part of neck of right femur, initial encounter for closed fracture Qualifiers: Encounter type: initial encounter Fracture type: closed Qualified Code(s): S72.001A - Fracture of unspecified part of neck of right femur, initial encounter for closed fracture (3) History of open reduction and internal fixation (ORIF) procedure: Status: Deleted Code(s): Z98.890 - Other specified postprocedural states Plan: Will follow up with Dr. Holguin. (4) Acute blood loss anemia: Status: Acute Code(s): D62 - Acute posthemorrhagic anemia Plan: HGB is stable at MA from rehab. (5) Vitamin D insufficiency: Status: Acute Code(s): E55.9 - Vitamin D deficiency, unspecified Plan: He was started on a calcium and vitamin D supplement....calcium 500 mg and Vitamin 400 mg BID with food. (6) Leukopenia: Status: Acute Code(s): D72.819 - Decreased white blood cell count, unspecified Plan: Chronic (7) Hyponatremia: Status: Inactive Code(s): E87.1 - Hypo-osmolality and hyponatremia Plan: Stable (8) History of SIADH: Status: Inactive Code(s): Z86.39 - Personal history of other endocrine, nutritional and metabolic disease (9) Hydronephrosis: Status: Inactive Code(s): N13.30 - Unspecified hydronephrosis Qualifiers: Hydronephrosis type: unspecified Qualified Code(s): N13.30 - Unspecified hydronephrosis Plan: Has a JJ stent and will continue to follow up with Dr. Hollingsworth. (10) Former smoker: Status: Inactive Code(s): Z87.891 - Personal history of nicotine dependence Plan: Quit in 2019. (11) Chronic bronchitis: Status: Inactive Code(s): J42 - Unspecified chronic bronchitis Qualifiers: Chronic bronchitis type: simple Qualified Code(s): J41.0 - Simple chronic bronchitis Plan: Chronic cough. Uses no inhalers. Sees Dr. Guerrero. Has chronic emphysematous changes, primarily in the upper lobes, on chest CT done this year and has a chronic productive cough. (12) Prostatic cancer: Status: Inactive Code(s): C61 - Malignant neoplasm of prostate (13) Decubitus ulcer: Status: Acute Code(s): L89.90 - Pressure ulcer of unspecified site, unspecified stage Qualifiers: Laterality: left Pressure injury location: buttock Pressure injury stage: stage 2 Qualified Code(s): L89.322 - Pressure ulcer of left buttock, stage 2 Plan: Stage II L buttock. Will have wound care nursing with [facility] to follow the wound. Discharged on Mepilex patch - change Q 3 days and PRN. Plan 1. DC home with [facility] PT and SN for changing the dressing on the wound on the buttock. Medications at Discharge Home Medications acetaminophen 325 mg tablet 650 mg (2 x 325 mg) PO Q6H PRN PRN Pain 1-10 Or Fever >100.7 #0 tabs 11/28/22 aspirin 81 mg capsule 81 mg PO BID #28 caps 12/11/22 calcium carbonate 500 mg-vitamin D3 10 mcg (400 unit) tablet (Calcium 500 With D) 1 tab PO BID #60 tabs 12/11/22 menthol 0.44 %-zinc oxide 20.6 % topical ointment (Calmoseptine) 1 applic topical 4X/DAY Skin protection #113 grams 12/11/22 Hospital Course Operations - (11/25/2022-placement of an intramedullary nail in the right femur by Dr. Holguin.) Procedures None Summary of Care Provided Minutes Spent on Discharge: 35 Hospital Course: ELIESER VILLEGAS, is a 87 YO M well known to me from an admission to rehab in August of 2021 for Left hip fracture. 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 Hollingsworth in the past (the stent was changed in September of 2021 and again in September 2022). Elieser presented to the emergency department at [facility] on 11/25/2022 after a fall at home. X-rays revealed a right intertrochanteric fracture of the right femur. He was admitted to the hospitalist service and Dr. Holguin was consulted. He was taken to the OR by Dr. Holguin on 11/25/2022 for placement of an intramedullary nail in the right femur. Postoperatively the hemoglobin was 10.4, down from 14.8 at admission. Postoperatively he was seen by PT/OT and the recommendation was made for acute inpatient rehab following discharge. He was admitted to the acute inpatient rehab unit at [facility] on 11/28/2022 for 3 hours of therapy daily to restore function/independence at or near his level prior to his most recent fall. Elieser used minimal pain medications and told me he did not have pain most of the time. He developed a decubitus ulcers on his buttocks. the decub on the R buttock was healed by the time of DC but, he still had a stage II ulcer on the Left buttock which was treated with a Mepilex dressing which he repeatedly removed to allow air to get to the sore. There was no sign of infection at the time of DC. Lab prior to discharge showed a white blood cell count of 4.3 and he periodically has leukopenia for a few years now. He had no fever. Hemoglobin was improving and was up to 9.7 at discharge. Platelet count had recovered and was 282,000. Sodium was stable and it was 134 prior to discharge. Potassium was within normal limits. BUN was elevated at 28 but the creatinine was within his baseline at 0.8. He does not drink enough fluids despite staff telling him to increase his fluids to prevent lightheadedness and falls. Calcium corrected for hypoalbuminemia was within normal limits. Elieser did well in therapy. He worked primarily with PT, he did not think OT was appropriate because he was there for his hip and walking so he mostly lifted weights for OT. At the time of discharge he was supervision/set up for eating and grooming. He required minimal assistance with bathing. He was supervision/set up for upper body dressing and standby assist for lower body dressing. He was also standby assist for toileting, toilet transfer and tub/shower transfer. Prior to discharge he was ambulating up to 163 feet with a front wheeled walker and standby assist. He was able to go from sitting to standing on various surfaces at standby assist. He had completed three 4 inch steps and two 6 inch steps with 1 handrail and a straight cane at contact-guard assist. He was discharged home on 12/12/2022 and will follow-up with Dr. Johnny Shelton in the next 7 to 14 days. He will also follow-up with Dr. Holguin from orthopedics and Dr. Hollingsworth for urology. Home health care for PT and dressing changes on the left buttock decubitus ulcer were arranged by the social work specialist. Weight / BMI Weight Weight: 126 lb 15.78 oz Body Mass Index (BMI) 18.1 ABG / Lab / Microbiology Data 12/09/22 05:19 12/09/22 05:19 D/C Instructions Discharge Diet: - (Regular diet. Please continue to drink Ensure Plus twice a day to promote healing of both the fracture and the ulcer on the left buttock. ) Weight Bearing Status: Full weight bearing Keep extremity elevated above heart level: Left Leg Call your doctor if your incision/area has: Sudden Increased Bleeding, Increased Pain/ Swelling, Increased Redness, Foul Smelling Discharge and Swelling at the incision site Call your doctor if you observe: Fever of 101 or Higher, Inability to urinate, Shortness of breath, Fainting spells, Chest pain, Increased palpitations (irregular heartbeat), Calf discomfort and Uncontrolled pain Suture Line Care: Avoid Pulling/Pushing and Avoid Pinching/Bending Cleanse incision/area with: Soap & Water Pending Tests Upon Discharge: none Please Follow Up With: Hitesh Holguin DO When: January 12 at 10 AM. You will also need to follow up with Dr. Shelton on 12/17/22 at 11 AM. Meaningful Use Info Meaningful Use Diagnoses (Choose all that apply): None applicable Discharge Plan Admission Admit Date/Time: 11/28/22 12:58 Primary Reason for Your Visit: Debiity due to a left hip fracture. Attending Provider: Karla Gauthier Primary Care Provider: Johnny Shelton Instructions Patient Instructions: Adult Immunization Schedule, Caring for Your Incision Additional Instructions / Restrictions: 1. It was good to have you back Elieser. You have done well in rehab and I think you will be safe going home. 2. I looked at the recent CT of the chest you had in June of this year and the recent chest XRAY when you came into the hospital. You have some significant chronic lung disease.......your CT scan shows changes consistent with emphysema and your sx with chronic productive cough are consistent with chronic bronchitis. I recommend you consider getting vaccinated for Flu, COVID and RSV (respiratory syncytial virus). These viruses are very dangerous for people with chronic lungs disease and are associated with a lot of pts with COPD from these viruses every year. It would be best to get vaccinated and also to stay away from anyone who is sick with sore throat, cough, congestion and sneezing.......or you could wear a mask when you are out in public. When people were wearing masks during COVID the Flu was almost non-existent. Masks work. 3. Try and get up every hour when you get home and talk a walk in the house........it keeps the stiffness in the hip under control and it is good to move to prevent blood clots. 4. After a hip surgery you are at increased risk for blood clots for 4 weeks after surgery, due to inactivity and lying in bed a lot. you have been getting a shot of Heparin, which is an anticoagulant, twice a day to prevent blood clots. You are now 16 days post op. That means you need to take something to prevent blood clots for another 14 days. I am sending you home on 1 baby aspirin twice a day with food for the next 2 weeks. December 25 will be the last day you need to take the aspirin. Take it with food so it does not upset your stomach. 5. I am sending you home with a small amount of pain medication, just in case, you have some pain after getting home. 6. If you or your family have any questions after leaving rehab please do not hesitate to call me. OFFICE: [phone] CELL: [phone] Discharge Orders/Prescriptions Prescriptions: New calcium carbonate-vitamin D3 [Calcium 500 With D] 500 mg-10 mcg (400 unit) tablet 1 tab PO BID Qty: 60 0RF Hold Instructions: Ordered Rx Instructions: 1 tab twice a day with food to prevent bone loss aspirin 81 mg capsule 81 mg PO BID Qty: 28 0RF Rx Instructions: Take with food. Can discontinue after 12/26/22 Continued menthol-zinc oxide [Calmoseptine] 0.44-20.6 % Ointment 1 applic topical 4X/DAY Qty: 113 3RF Protocol: *Topical Application Instructions APPLICATION INSTRUCTIONS: apply to buttock Rx Instructions: Apply to affected areas 4 times a day acetaminophen 325 mg Tablet 650 mg PO Q6H PRN PRN (Reason: Pain 1-10 Or Fever >100.7) Qty: 0 0RF Discontinued calcium carbonate 200 mg calcium (500 mg) Tablet,Chewable 500 mg PO TIDCM Qty: 0 0RF heparin (porcine) 5,000 unit/mL Solution 5,000 unit subcut Q12 Qty: 0 0RF sennosides-docusate sodium [Stool Softener-Stimulant Laxat] 8.6-50 mg Tablet 2 tab PO BID Qty: 1 0RF nystatin [Nyamyc] 100,000 unit/gram Powder 1 applic topical TID Qty: 0 0RF Protocol: *Topical Application Instructions APPLICATION INSTRUCTIONS: GROIN oxycodone 5 mg Tablet 10 mg PO Q4H PRN PRN (Reason: Pain Score 4-10) Qty: 0 0RF Referrals / Follow Up: Johnny Shelton DO [Primary Care Provider] - 12/17/22 11:00 am Hitesh Holguin DO [Med Staff - Active Staff] - 01/12/23 10:00 am Disposition Disposition (needs filled in before D/C Order can be placed): Home Health Service Charges/Coding Visit Charges Inpatient E&M: 73750 Disch Hosp >30min
[2022-12-11 19:24] VITALS: BP 134/53; PULSE 82; RESP 18; TEMP 36.7; O2SAT 94
[2022-12-11 22:00] VITALS: PULSE 82; RESP 17; O2SAT 94
[2022-12-12] MEDS: Cholecalciferol (Vit D3) 125 MCG CAPSULE (5,000 UNITS) PO (08:03)
[2022-12-12] MEDS: Calcium Carbonate 500 MG Tablet PO ×2 (08:03→11:57)
[2022-12-12] MEDS: Heparin Injection (Vial) 5,000 UNIT/ML VIAL 5000 UNIT SC (08:04)
[2022-12-12] MEDS: Menthol/Lanolin/Calamine/Znox 113 GM Tube 1 APPLIC TOPICAL (08:04)
[2022-12-12 08:37] VITALS: BP 116/58; PULSE 74; RESP 15; TEMP 36.4; O2SAT 94
[2022-12-12 12:28] VITALS: BP 124/56; PULSE 74; RESP 18; TEMP 36.4; O2SAT 95
== END 2022-12-12 13:20 | disposition home health service (06) | DRG 560 ==
PROVIDERS: Admitting Provider Internal Medicine; PCP Family Medicine; Referring Provider Internal Medicine; Visit Provider Internal Medicine
DX: S72.001D Fracture of unspecified part of neck of right femur, subsequent encounter for closed fracture with routine healing (principal); E87.1 Hypo-osmolality and hyponatremia; D62 Acute posthemorrhagic anemia; N13.30 Unspecified hydronephrosis; L89.319 Pressure ulcer of right buttock, unspecified stage; C61 Malignant neoplasm of prostate; L89.322 Pressure ulcer of left buttock, stage 2; J41.0 Simple chronic bronchitis; E55.9 Vitamin D deficiency, unspecified; D72.819 Decreased white blood cell count, unspecified; W19.XXXD Unspecified fall, subsequent encounter; Z87.891 Personal history of nicotine dependence; Z79.899 Other long term (current) drug therapy; Z79.01 Long term (current) use of anticoagulants
CPT/HCPCS: 36415; 73502; 80048; 80053; 83735; 84100; 85027; 94668; 97110; 97112; 97116; 97162; 97166; 97530; 97535; 97802

== ENCOUNTER 2022-12-26 09:02 | Outpatient (RCR) | payer MEDICARE, OTHER, SELFPAY ==
[2021-09-09 14:02] VITALS: BMI 19.5
[2022-12-26 09:29] VITALS: BP 123/64; PULSE 84; RESP 18; TEMP 35.8
--- NOTE | 2022-12-26 13:47 | PCM.WC.HP ---
History of Present Illness Date of Service: 12/26/22 Chief Complaint: Stage 2 pressure ulcer left buttock History of Wound: Kofi is a very pleasant 87 yo gentleman that presents to the wound healing center today for evaluation and treatment of a left buttock ulcer that has been present for many years and comes and goes. He has used many topical treatments including calmoseptine and Aquaphor to the area. He sits on a donut cushion when he is sitting in his recliner which is where he spends the majority of his time during the day. He has lost approx. 40 lbs over the last several years which he attributes to some of the cause of the ulcer as he does not have as much subcutaneous tissue between his skin and his ischium. He does eat well but does not like protein shakes or yogurt. He is otherwise healthy and does not have any chronic medical problems. He was referred here by a Rehab facility where he was receiving therapy after a hip fracture and repair. He is doing well and mobility is improving. There has been no wound cultures done on the wound and he is currently not on any antibiotic treatment. He denies drainage but states the the area is painful unless it is covered with a bandage. [facility] Medical History Abnormal results of thyroid function studies Alcohol use Arthritis Back pain Cancer Cholelithiasis Chronic bronchitis Closed intertrochanteric fracture of left femur Former smoker Heartburn History of edema History of SIADH Hydronephrosis Hyponatremia Kidney failure Loss of hearing Low iron Prostate cancer Prostatic cancer Shortness of breath on exertion Wears glasses Wears partial dentures Home Medications acetaminophen 325 mg tablet 650 mg (2 x 325 mg) PO Q6H PRN PRN Pain 1-10 Or Fever >100.7 #0 tabs 11/28/22 [Rx Last Taken Unknown] aspirin 81 mg capsule 81 mg PO BID #28 caps 12/11/22 [Rx Last Taken Unknown] calcium carbonate 500 mg-vitamin D3 10 mcg (400 unit) tablet (Calcium 500 With D) 1 tab PO BID #60 tabs 12/11/22 [Rx Last Taken Unknown] menthol 0.44 %-zinc oxide 20.6 % topical ointment (Calmoseptine) 1 applic topical 4X/DAY Skin protection #113 grams 12/11/22 [Rx Last Taken Unknown] Allergy/AdvReac Type Severity Reaction Status Date / Time No Known Allergies Allergy Verified 11/25/22 05:40 Family History Other Heart disease Surgical History H/O hernia repair History of cystoscopy History of open reduction and internal fixation (ORIF) procedure History of open reduction and internal fixation (ORIF) procedure History of renal stent History of transurethral resection of prostate Hx of cystoscopy Status post appendectomy Social History household members: spouse and other details: 2 stry house. He sleeps downstairs in a recliner. 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 Tobacco: How many years used: 67 how long ago did patient quit smoking: He quit in 2019 alcohol intake: current alcohol intake frequency: holidays/special occasions only substance use type: does not use ROS Constitutional Constitutional: Denies chills, fatigue or fever(s) Eyes Eyes: Denies blurry vision, change in vision or loss of vision ENT HEENT: Denies dysphagia, hearing loss or sore throat Cardiovascular Cardiovascular: Denies chest pain, edema or palpitations Respiratory/Chest Respiratory/Chest: Denies dry cough, dyspnea, dyspnea on exertion, productive cough or wheezing Gastrointestinal Gastrointestinal: Denies diarrhea, nausea or vomiting Genitourinary Genitourinary: Denies dysuria or polyuria Musculoskeletal Musculoskeletal: Denies arthralgias, joint stiffness or muscle weakness Integumentary Integumentary: Reports erythema and wounds Neurologic Neurologic: Denies dizziness, memory loss or weakness Psychiatric Psychiatric: Denies homicidal ideation or suicidal ideation Endocrine Endocrinology: Denies polydipsia, polyphagia or polyuria Hematologic/Lymphatic Hematologic/Lymphatic: Denies easy bleeding or easy bruising Allergic/Immunologic Allergic/Immunologic: Denies throat swelling, tongue swelling or urticaria Vital Signs Vital Signs Vital Signs: 12/26/22 09:29 Temperature 96.4 F L Temperature Source Temporal Pulse Rate 84 Respiratory Rate 18 Blood Pressure 123/64 H Blood Pressure Mean 83 Blood Pressure Source Monitor Blood Pressure Position Semi-Fowlers Blood Pressure Location Left Arm Physical Exam Const alert, oriented x3 and no apparent distress General Appearance: cooperative and comfortable Nutritional Appearance: underweight HEENT normocephalic and head/scalp atraumatic Resp normal respiratory effort Effort and Inspection: able to speak in complete sentences Cardio regular rate and regular rhythm Skin Wounds: wounds noted Wound Narrative: as in clinical panel Psych mental status grossly normal, thought process normal, cooperative and affect normal Debridement Note Debridement Note Wound debrided: left buttock ulcer Laterality: Left Wound Grade/Stage: Stage 2 Type of Debridement: Excisional debridement Anesthesia Used: 4% Lidocaine Solution and 5% Lidocaine Gel Depth: Down to and including healthy tissue and in the subcutaneous layer Percentage of wound debrided: 100 Instrument Used: 3mm curette Tissue Removed: Yellow slough, devitalized tissue Severity: Fat Layer Exposed Amount of bleeding with debridement: Mild Bleeding Controlled with: Compression and gauze Patient tolerated procedure: Patient tolerated procedure well Post-Debridement Measurements and Additional Note: Post-Debridement Measurements/Treatment - Nurse 1 - General Ulcer Assessment Start: 12/26/22 09:29 Freq: Status: Active Protocol: MAGALY Activity Type Activity Date Activity User E-sign Co-sign Detail Recorded Client Recorded Date Recorded By Document 12/26/22 09:29 Desktop 12/26/22 09:35 12/26/22 09:29 - Today's Visit Information Type of service Follow-up Visit (Physician/LEAD SOFTWARE ARCHITECT ) Arrival Mode Ambulatory,Cane Transfer Assistance None Patient Identification Verified (Name & Yes ) Patient Requires Transmission-Based No Precautions Vital Signs Temperature (97.8 F-99.1 F) 96.4 F L Temperature Source Temporal Pulse Rate (60-100) 84 Pulse Location Monitor Respiratory Rate (12-18) 18 Respiratory rate source Observation Blood Pressure (90/60-120/80) 123/64 H Blood Pressure Mean 83 Source Monitor Position Semi-Fowlers Blood Pressure Location Left Arm History Since Last Visit- (Skip if this is Patient's initial visit) Have you changed medications since your No last visit? Any new allergies or adverse reactions No Had a fall/change in ADL's that may No increase risk of falls Signs or symptoms of abuse and/or No neglect since last visit Have you been in the hospital since your No last visit? Has dressing in place as prescribed Yes Has compression in place as prescribed No Has offloadiing in place as prescribed No Experienced any changes in pain level or No management Pain Scale: 0-10 Numeric Is Patient Pain Free? No buttocks -Description Burning,Aching -Intensity 7 -Duration (hours) Acute -Pain Behavior Guarding -Pain Aggravating Factors Exercise/ Activity, Sitting -Alleviating Factors/Interventions Medication -Effectiveness of Alleviating Factor/ Minimally Intervention effective Teaching: Wound Center *Welcome to the Wound Center -Person Taught Patient -Teaching Method Discussion, Demonstration -Response to teaching Verbalize understanding WC - Nurse 1 - General Ulcer Measurement Start: 12/26/22 09:29 Freq: Status: Active Protocol: Activity Type Activity Date Activity User E-sign Co-sign Detail Recorded Client Recorded Date Recorded By Document 12/26/22 09:29 RB Desktop 12/26/22 09:35 RB 12/26/22 09:29 Wound Center Nurse 1 2. R buttock -Combined with other wound No -Current Size (cm) - Length 0.1 -Current Size (cm) - Width 0.1 -Current Size (cm) - Depth 0.1 -Total Square Cm 0.01 -Tunneling No -Undermining/Tunneling No -Circular Undermining No -Exudate Amt Medium -Exudate Type Serosanguineous -Wound Margin Distinct, Outline Attached -Granulation Amt Medium (34-66%) -Granulation Quality [place] -Slough/Fibrin Yes -Necrosis Amt Medium (34-66%) -Necrotic Tissue Type Adherent Slough -Structure Exposed N/A -Texture (Ela-wound Skin Appearance) Assessed -Moisture (Ela-wound Skin Appearance) Assessed -Color (Ela-wound Skin Appearance) Assessed -Temperature (Ela-wound Skin No Abnormality Appearance) (Pt Warm) -Tenderness on Palpation (Ela-wound No Skin Appearance) -Ulcer Cleansing Wound Cleanser -Foul Odor after Cleansing No -Anesthetic Used 5% Lidocaine Gel 1. L buttock -Combined with other wound No -Current Size (cm) - Length 2.2 -Current Size (cm) - Width 1 -Current Size (cm) - Depth 0.1 -Total Square Cm 2.2 -Photo Taken Yes -Tunneling No -Undermining/Tunneling No -Circular Undermining No -Exudate Amt Medium -Exudate Type Serosanguineous -Wound Margin Distinct, Outline Attached -Granulation Amt Medium (34-66%) -Granulation Quality [place] -Slough/Fibrin Yes -Necrosis Amt Medium (34-66%) -Necrotic Tissue Type Adherent Slough -Structure Exposed N/A -Texture (Ela-wound Skin Appearance) Assessed -Moisture (Ela-wound Skin Appearance) Assessed -Color (Ela-wound Skin Appearance) Assessed -Temperature (Ela-wound Skin No Abnormality Appearance) (Pt Warm) -Tenderness on Palpation (Ela-wound No Skin Appearance) -Ulcer Cleansing Wound Cleanser -Foul Odor after Cleansing No -Anesthetic Used 5% Lidocaine Gel - Nurse 3 - General Ulcer D/C NN Start: 12/26/22 09:29 Freq: Status: Active Protocol: Activity Type Activity Date Activity User E-sign Co-sign Detail Recorded Client Recorded Date Recorded By Document 12/26/22 12:41 [email or web address] [id number] 12/26/22 12:42 SAWYER 12/26/22 12:41 Wound Care Center Nurse 3 2. R buttock -Primary Dressing Applied Mepilex Border, Promogran -Mepilex Border 1 -Promogran 1 1. L buttock -Primary Dressing Applied Mepilex Border -Other Dressing promogran -Mepilex Border 1 Treatment Response Procedure Tolerated Well Pain Scale: 0-10 Numeric Is Patient Pain Free? Yes WC - Visit Discharge Discharge Condition Stable Ambulatory Status Ambulatory Transportation Private Auto Medication Reconcilliation completed & No provided to patient/care provider Clinical Summary of Care Provided Yes Assessment/Plan Assessment/Plan (1) Decubitus ulcer: CODE(S): L89.90 - Pressure ulcer of unspecified site, unspecified stage QUALIFIERS: Pressure injury location: buttock Pressure injury stage: stage 2 Laterality: left Qualified Code(s): L89.322 - Pressure ulcer of left buttock, stage 2 (2) History of open reduction and internal fixation (ORIF) procedure: CODE(S): Z98.890 - Other specified postprocedural states (3) Debility: CODE(S): R53.81 - Other malaise PLAN: Plan Debridement performed today in clinic as annotated above. At home wound-care instructions: Will have his apply Promogran and foam dressing to the ulcer for moderate drainage daily. Keep dressing clean and dry. Encouraged off loading with propping up his hip instead of sitting on the donut cushion. Off-loading: The patient was instructed to avoid pressure and friction on the affected areas. Reposition every 2 hours at minimum. Avoid prolonged standing and/or dangling of legs. When seated, feet should be elevated at chest level. Frequent ambulation is encouraged. Diet: Patient encouraged to increase protein intake while taking caution to avoid high carbohydrate and/or sugar intake. Labs/cultures/imaging: Wound culture taken today to evaluate for infection. Follow-up: Return in 1 week for wound care follow up. Return sooner or report to the emergency room should symptoms worsen, or new symptoms arise. Note: [employer] speech recognition metal molder software was used to create portions of this document. Sound-alike and misspelled words, as well as other metal molder errors may be contained in the documentation.
== END 2022-12-27 23:59 | disposition home or self-care (01) ==
LOC: WC 09:02
PROVIDERS: PCP Family Medicine; Referring Provider Family Medicine; Visit Provider Family Medicine
DX: L89.322 Pressure ulcer of left buttock, stage 2 (principal); Z79.82 Long term (current) use of aspirin; Z87.891 Personal history of nicotine dependence; R53.81 Other malaise; Z98.890 Other specified postprocedural states
CPT/HCPCS: 11042; 87070; 87075; 87077; 87186; 87205

== ENCOUNTER 2023-01-23 09:00 | Outpatient (RCR) | payer MEDICARE, OTHER, SELFPAY ==
[2021-09-09 14:02] VITALS: BMI 19.5
[2022-12-28 00:48] VITALS: BP 123/64; PULSE 84; RESP 18; TEMP 35.8
[2023-01-02 08:59] VITALS: BP 106/51; PULSE 70; RESP 18; TEMP 36
--- NOTE | 2023-01-02 13:20 | PN.PCM_ITS ---
History of Present Illness Date of Service: 01/02/23 Chief Complaint: Stage 2 pressure ulcer left buttock History of Wound: Kofi is a very pleasant 87 yo gentleman that presents to the wound healing center today for evaluation and treatment of a left buttock ulcer that has been present for many years and comes and goes. He has used many topical treatments including calmoseptine and Aquaphor to the area. He sits on a donut cushion when he is sitting in his recliner which is where he spends the majority of his time during the day. He has lost approx. 40 lbs over the last several years which he attributes to some of the cause of the ulcer as he does not have as much subcutaneous tissue between his skin and his ischium. He does eat well but does not like protein shakes or yogurt. He is otherwise healthy and does not have any chronic medical problems. He was referred here by a Rehab facility where he was receiving therapy after a hip fracture and repair. He is doing well and mobility is improving. There has been no wound cultures done on the wound and he is currently not on any antibiotic treatment. He denies drainage but states the the area is painful unless it is covered with a bandage. Subjective Subjective Kofi is here today for follow up of a nonhealing pressure ulcer on his left buttock. His ulcer is relatively unchanged. His wound culture was positive for Klebsiella and Staph warneri. They did not receive foam dressings but have been applying the Promogran and covering with a dressing they got at [facility]. He denies any increased drainage, pain or erythema. Objective Data Objective Data Vital Signs: Vital Signs Temp Pulse Resp BP 96.8 F L 70 18 106/51 L 01/02/23 08:59 01/02/23 08:59 01/02/23 08:59 01/02/23 08:59 Physical Exam Const alert, oriented x3 and no apparent distress General Appearance: cooperative and comfortable Nutritional Appearance: underweight HEENT normocephalic and head/scalp atraumatic Resp normal respiratory effort Effort and Inspection: able to speak in complete sentences Cardio regular rate and regular rhythm Skin Wounds: wounds noted Wound Narrative: as in clinical panel Psych mental status grossly normal, thought process normal, cooperative and affect normal Debridement Note Debridement Note Wound debrided: left buttock Laterality: Left Wound Grade/Stage: Stage 2 Type of Debridement: Excisional debridement Anesthesia Used: 4% Lidocaine Solution and 5% Lidocaine Gel Depth: Down to and including healthy tissue and in the subcutaneous layer Percentage of wound debrided: 100 Instrument Used: 3mm curette Tissue Removed: Yellow slough, devitalized tissue Severity: Fat Layer Exposed Amount of bleeding with debridement: Mild Bleeding Controlled with: Compression and gauze Patient tolerated procedure: Patient tolerated procedure well Post-Debridement Measurements and Additional Note: Post-Debridement Measurements/Treatment WC - Nurse 1 - General Ulcer Assessment Start: 01/02/23 08:59 Freq: Status: Active Protocol: MAGALY Activity Type Activity Date Activity User E-sign Co-sign Detail Recorded Client Recorded Date Recorded By Document 01/02/23 08:59 RB Desktop 01/02/23 09:02 RB 01/02/23 08:59 WC - Today's Visit Information Type of service Follow-up Visit (Physician/IT HELP DESK TECHNICIAN ) Arrival Mode Ambulatory,Cane Transfer Assistance None Patient Identification Verified (Name & Yes ) Patient Requires Transmission-Based No Precautions Vital Signs Temperature (97.8 F-99.1 F) 96.8 F L Temperature Source Temporal Pulse Rate (60-100) 70 Pulse Location Monitor Respiratory Rate (12-18) 18 Respiratory rate source Observation Blood Pressure (90/60-120/80) 106/51 L Blood Pressure Mean (mm Hg) 69 Source Monitor Position Semi-Fowlers Blood Pressure Location Left Arm History Since Last Visit- (Skip if this is Patient's initial visit) Have you changed medications since your No last visit? Any new allergies or adverse reactions No Had a fall/change in ADL's that may No increase risk of falls Signs or symptoms of abuse and/or No neglect since last visit Have you been in the hospital since your No last visit? Has dressing in place as prescribed Yes Has compression in place as prescribed No Has offloadiing in place as prescribed No Experienced any changes in pain level or No management Pain Scale: 0-10 Numeric Is Patient Pain Free? No buttocks -Description Aching -Intensity 5 -Duration (hours) Acute -Pain Behavior Withdrawal from Touch -Pain Aggravating Factors Sitting, Debridement -Alleviating Factors/Interventions None WC - Nurse 1 - General Ulcer Measurement Start: 01/02/23 08:59 Freq: Status: Active Protocol: Activity Type Activity Date Activity User E-sign Co-sign Detail Recorded Client Recorded Date Recorded By Document 01/02/23 08:59 RB Desktop 01/02/23 09:02 RB 01/02/23 08:59 Wound Center Nurse 1 2. R buttock -Combined with other wound No -Current Size (cm) - Length 0.1 -Current Size (cm) - Width 0.1 -Current Size (cm) - Depth 0.1 -Total Square Cm 0.01 -Epithelialization Large 67-100% -Tunneling No -Undermining/Tunneling No -Circular Undermining No -Exudate Amt None Present -Wound Margin Distinct, Outline Attached -Granulation Amt Large (67-100%) -Granulation Quality [place] -Slough/Fibrin Yes -Necrosis Amt Small (1-33%) -Necrotic Tissue Type Adherent Slough -Structure Exposed N/A -Texture (Ela-wound Skin Appearance) Assessed -Moisture (Ela-wound Skin Appearance) Assessed -Color (Ela-wound Skin Appearance) Assessed -Temperature (Ela-wound Skin No Abnormality Appearance) (Pt Warm) -Tenderness on Palpation (Ela-wound No Skin Appearance) -Ulcer Cleansing Wound Cleanser -Foul Odor after Cleansing No 1. L buttock -Combined with other wound No -Current Size (cm) - Length 1.5 -Current Size (cm) - Width 0.3 -Current Size (cm) - Depth 0.1 -Total Square Cm 0.45 -Tunneling No -Undermining/Tunneling No -Circular Undermining No -Exudate Amt Medium -Exudate Type Serosanguineous -Wound Margin Distinct, Outline Attached -Granulation Amt Medium (34-66%) -Granulation Quality [place] -Slough/Fibrin Yes -Necrosis Amt Medium (34-66%) -Necrotic Tissue Type Adherent Slough -Structure Exposed N/A -Texture (Ela-wound Skin Appearance) Assessed -Moisture (Ela-wound Skin Appearance) Assessed -Color (Ela-wound Skin Appearance) Assessed -Temperature (Ela-wound Skin No Abnormality Appearance) (Pt Warm) -Tenderness on Palpation (Ela-wound No Skin Appearance) -Ulcer Cleansing Wound Cleanser -Foul Odor after Cleansing No -Anesthetic Used 5% Lidocaine Gel WC - Nurse 2 - General Ulcer CM Notes Start: 01/02/23 08:59 Freq: Status: Active Protocol: Activity Type Activity Date Activity User E-sign Co-sign Detail Recorded Client Recorded Date Recorded By Document 01/02/23 09:11 GM Desktop 01/02/23 09:20 GM 01/02/23 09:11 Wound Center Nurse 2 2. R buttock -Time 09:11 -Correct Patient Yes -Correct Side, Site, Position Yes -Correct Procedure Yes -Tunneling No -Undermining/Tunneling No -Circular Undermining No -Wound/Ulcer Outcome Healed- Epithelialized -Other Pressure Reduction repositioning frequently 1. L buttock -Time 09:12 -Correct Patient Yes -Correct Side, Site, Position Yes -Correct Procedure Yes -Procedure Performed Yes -Type of Procedure Debridement -Clinical Debridement Subcutaneous -Tissue Removed Subcutaneous -Post Debridement (cm) - Length 1.6 -Post Debridement (cm) - Width 0.2 -Post Debridement (cm) - Depth 0.1 -Total Square (Post) (cm) 0.32 -Area of Debridement (cm) - Length 1.6 -Area of Debridement (cm) - Width 0.2 -Total Square (Area) (cm) 0.32 -Tunneling No -Undermining/Tunneling No -Circular Undermining No -Wound/Ulcer Outcome Not Healed -Ulcer Cleansing Rinsed/ Irrigated with Saline -Foul Odor after Cleansing No -Bioengineered Tissue No -Bleeding Controlled with Silver Nitrate -Treatment Response Procedure Tolerated Well -Debridement - Subq, 1st 20sq cm Yes Pain Scale: 0-10 Numeric Is Patient Pain Free? Yes - Nurse 3 - General Ulcer D/C NN Start: 01/02/23 08:59 Freq: Status: Active Protocol: Activity Type Activity Date Activity User E-sign Co-sign Detail Recorded Client Recorded Date Recorded By Document 01/02/23 09:27 MW Desktop 01/02/23 09:28 MW 01/02/23 09:27 Wound Care Center Nurse 3 1. L buttock -Ulcer Cleansing Rinsed/ Irrigated with Saline -Foul Odor after Cleansing No -Negative Pressure Wound Therapy N/A -Primary Dressing Applied Mepilex Border, Promogran -Mepilex Border 1 -Promogran 1 Treatment Response Procedure Tolerated Well Pain Scale: 0-10 Numeric Is Patient Pain Free? Yes Teaching: Wound Center Dressing Your Wound -Person Taught Patient,Family -Teaching Method Discussion, Demonstration -Response to teaching Verbalize understanding WC - Visit Discharge Discharge Condition Stable Ambulatory Status Ambulatory Transportation Private Auto Accompanied by Medication Reconcilliation completed & No provided to patient/care provider Clinical Summary of Care Provided Yes Assessment/Plan Assessment/Plan (1) Decubitus ulcer: CODE(S): L89.90 - Pressure ulcer of unspecified site, unspecified stage QUALIFIERS: Pressure injury location: buttock Pressure injury stage: stage 2 Laterality: left Qualified Code(s): L89.322 - Pressure ulcer of left buttock, stage 2 (2) History of open reduction and internal fixation (ORIF) procedure: CODE(S): Z98.890 - Other specified postprocedural states (3) Debility: CODE(S): R53.81 - Other malaise PLAN: Plan Debridement performed today in clinic as annotated above. At home wound-care instructions: Will have his continue to apply Promogran and foam dressing to the ulcer for moderate drainage daily. Keep dressing clean and dry. Encouraged off loading with propping up his hip instead of sitting on the donut cushion and increase protein intake. Off-loading: The patient was instructed to avoid pressure and friction on the affected areas. Reposition every 2 hours at minimum. Avoid prolonged standing and/or dangling of legs. When seated, feet should be elevated at chest level. Frequent ambulation is encouraged. Diet: Patient encouraged to increase protein intake while taking caution to avoid high carbohydrate and/or sugar intake. Labs/cultures/imaging: Wound culture taken today to evaluate for infection. Follow-up: Return in 1 week for wound care follow up. Return sooner or report to the emergency room should symptoms worsen, or new symptoms arise. Note: [employer] speech recognition cyber security consultant software was used to create portions of this document. Sound-alike and misspelled words, as well as other cyber security consultant errors may be contained in the documentation.
[2023-01-09 08:50] VITALS: BP 117/36; PULSE 72; RESP 18; TEMP 36
--- NOTE | 2023-01-09 12:59 | PN.PCM_ITS ---
History of Present Illness Date of Service: 01/09/23 Chief Complaint: Stage 2 pressure ulcer left buttock History of Wound: Kofi is a very pleasant 87 yo gentleman that presents to the wound healing center today for evaluation and treatment of a left buttock ulcer that has been present for many years and comes and goes. He has used many topical treatments including calmoseptine and Aquaphor to the area. He sits on a donut cushion when he is sitting in his recliner which is where he spends the majority of his time during the day. He has lost approx. 40 lbs over the last several years which he attributes to some of the cause of the ulcer as he does not have as much subcutaneous tissue between his skin and his ischium. He does eat well but does not like protein shakes or yogurt. He is otherwise healthy and does not have any chronic medical problems. He was referred here by a Rehab facility where he was receiving therapy after a hip fracture and repair. He is doing well and mobility is improving. There has been no wound cultures done on the wound and he is currently not on any antibiotic treatment. He denies drainage but states the the area is painful unless it is covered with a bandage. Subjective Subjective Kofi is here today for follow up of a nonhealing pressure ulcer on his left buttock. His ulcer is slightly improved. His wound culture was positive for Klebsiella and Staph warneri. He is tolerating antibiotic treatment and dressings with Promogran and foam bordered dressing for moderate drainage. He denies any increased drainage, pain or erythema. Objective Data Objective Data Vital Signs: Vital Signs Temp Pulse Resp BP O2 Del Method 96.8 F L 72 18 117/36 L Room Air 01/09/23 08:50 01/09/23 08:50 01/09/23 08:50 01/09/23 08:50 01/09/23 08:50 Oxygen Delivery Method Room Air Physical Exam Const alert, oriented x3 and no apparent distress General Appearance: cooperative and comfortable Nutritional Appearance: underweight HEENT normocephalic and head/scalp atraumatic Resp normal respiratory effort Effort and Inspection: able to speak in complete sentences Cardio regular rate and regular rhythm Skin Wounds: wounds noted Wound Narrative: as in clinical panel Psych mental status grossly normal, thought process normal, cooperative and affect normal Debridement Note Debridement Note Wound debrided: left buttock Laterality: Left Wound Grade/Stage: Stage 2 Type of Debridement: Excisional debridement Anesthesia Used: 4% Lidocaine Solution and 5% Lidocaine Gel Depth: Down to and including healthy tissue and in the subcutaneous layer Percentage of wound debrided: 100 Instrument Used: 3mm curette Tissue Removed: Yellow slough, devitalized tissue Severity: Fat Layer Exposed Amount of bleeding with debridement: Mild Bleeding Controlled with: Compression and gauze Patient tolerated procedure: Patient tolerated procedure well Post-Debridement Measurements and Additional Note: Post-Debridement Measurements/Treatment - Nurse 1 - General Ulcer Assessment Start: 01/02/23 08:59 Freq: Status: Active Protocol: [facility]TOOTIE Activity Type Activity Date Activity User E-sign Co-sign Detail Recorded Client Recorded Date Recorded By Document 01/02/23 08:59 RB Desktop 01/02/23 09:02 RB Document 01/09/23 08:50 KW Desktop 01/09/23 09:05 KW 01/02/23 01/09/23 08:59 08:50 - Today's Visit Information Type of service Follow-up Visit Follow-up Visit (Physician/FLAGMAN (Physician/FLAGMAN ) ) Arrival Mode Ambulatory,Cane Ambulatory,Cane Transfer Assistance None Patient Identification Verified (Name & Yes Yes ) Patient Requires Transmission-Based No Precautions Vital Signs Temperature (97.8 F-99.1 F) 96.8 F L 96.8 F L Temperature Source Temporal Temporal Pulse Rate (60-100) 70 72 Pulse Location Monitor Monitor Respiratory Rate (12-18) 18 18 Respiratory rate source Observation Observation Oxygen Delivery Method Room Air Blood Pressure (90/60-120/80) 106/51 L 117/36 L Blood Pressure Mean (mm Hg) 69 63 Source Monitor Monitor Position Semi-Fowlers Sitting Blood Pressure Location Left Arm Right Arm History Since Last Visit- (Skip if this is Patient's initial visit) Have you changed medications since your No No last visit? Any new allergies or adverse reactions No No Had a fall/change in ADL's that may No No increase risk of falls Signs or symptoms of abuse and/or No No neglect since last visit Have you been in the hospital since your No No last visit? Has dressing in place as prescribed Yes Yes Has compression in place as prescribed No N/A Has offloadiing in place as prescribed No N/A Experienced any changes in pain level or No No management Left Footwear Regular Shoe Right Footwear Regular Shoe Pain Scale: 0-10 Numeric Is Patient Pain Free? No Yes buttocks -Description Aching -Intensity 5 -Duration (hours) Acute -Pain Behavior Withdrawal from Touch -Pain Aggravating Factors Sitting, Debridement -Alleviating Factors/Interventions None WC - Nurse 1 - General Ulcer Measurement Start: 01/02/23 08:59 Freq: Status: Active Protocol: Activity Type Activity Date Activity User E-sign Co-sign Detail Recorded Client Recorded Date Recorded By Document 01/02/23 08:59 RB Desktop 01/02/23 09:02 RB Document 01/09/23 08:50 KW Desktop 01/09/23 09:05 KW 01/02/23 01/09/23 08:59 08:50 Wound Center Nurse 1 2. R buttock -Combined with other wound No -Current Size (cm) - Length 0.1 -Current Size (cm) - Width 0.1 -Current Size (cm) - Depth 0.1 -Total Square Cm 0.01 -Epithelialization Large 67-100% -Tunneling No -Undermining/Tunneling No -Circular Undermining No -Exudate Amt None Present -Wound Margin Distinct, Outline Attached -Granulation Amt Large (67-100%) -Granulation Quality [place] -Slough/Fibrin Yes -Necrosis Amt Small (1-33%) -Necrotic Tissue Type Adherent Slough -Structure Exposed N/A -Texture (Ela-wound Skin Appearance) Assessed -Moisture (Ela-wound Skin Appearance) Assessed -Color (Ela-wound Skin Appearance) Assessed -Temperature (Ela-wound Skin No Abnormality Appearance) (Pt Warm) -Tenderness on Palpation (Ela-wound No Skin Appearance) -Ulcer Cleansing Wound Cleanser -Foul Odor after Cleansing No 1. L buttock -Combined with other wound No -Current Size (cm) - Length 1.5 1.5 -Current Size (cm) - Width 0.3 0.1 -Current Size (cm) - Depth 0.1 0.1 -Total Square Cm 0.45 0.15 -Tunneling No -Undermining/Tunneling No -Circular Undermining No -Exudate Amt Medium -Exudate Type Serosanguineous -Wound Margin Distinct, Distinct, Outline Outline Attached Attached -Granulation Amt Medium (34-66%) Large (67-100%) -Granulation Quality [place] Red -Slough/Fibrin Yes -Necrosis Amt Medium (34-66%) -Necrotic Tissue Type Adherent Slough -Structure Exposed N/A -Texture (Ela-wound Skin Appearance) Assessed Assessed -Moisture (Ela-wound Skin Appearance) Assessed Assessed -Color (Ela-wound Skin Appearance) Assessed Assessed, Erythema -Temperature (Ela-wound Skin No Abnormality No Abnormality Appearance) (Pt Warm) (Pt Warm) -Tenderness on Palpation (Ela-wound No Skin Appearance) -Ulcer Cleansing Wound Cleanser -Foul Odor after Cleansing No No -Anesthetic Used 5% Lidocaine 5% Lidocaine Gel Gel WC - Nurse 2 - General Ulcer CM Notes Start: 01/02/23 08:59 Freq: Status: Active Protocol: Activity Type Activity Date Activity User E-sign Co-sign Detail Recorded Client Recorded Date Recorded By Document 01/02/23 09:11 GM Desktop 01/02/23 09:20 GM Document 01/09/23 09:31 GM Desktop 01/09/23 09:36 GM 01/02/23 01/09/23 09:11 09:31 Wound Center Nurse 2 2. R buttock -Time 09:11 -Correct Patient Yes -Correct Side, Site, Position Yes -Correct Procedure Yes -Tunneling No -Undermining/Tunneling No -Circular Undermining No -Wound/Ulcer Outcome Healed- Epithelialized -Other Pressure Reduction repositioning frequently 1. L buttock -Time 09:12 09:31 -Correct Patient Yes Yes -Correct Side, Site, Position Yes Yes -Correct Procedure Yes Yes -Procedure Performed Yes Yes -Type of Procedure Debridement Debridement -Clinical Debridement Subcutaneous Subcutaneous -Tissue Removed Subcutaneous Subcutaneous -Post Debridement (cm) - Length 1.6 1.2 -Post Debridement (cm) - Width 0.2 0.1 -Post Debridement (cm) - Depth 0.1 0.1 -Total Square (Post) (cm) 0.32 0.12 -Area of Debridement (cm) - Length 1.6 1.2 -Area of Debridement (cm) - Width 0.2 0.1 -Total Square (Area) (cm) 0.32 0.12 -Tunneling No No -Undermining/Tunneling No No -Circular Undermining No No -Wound/Ulcer Outcome Not Healed Not Healed -Ulcer Cleansing Rinsed/ Rinsed/ Irrigated with Irrigated with Saline Saline -Foul Odor after Cleansing No No -Bioengineered Tissue No No -Bleeding Controlled with Silver Nitrate Pressure -Treatment Response Procedure Procedure Tolerated Well Tolerated Well -Debridement - Subq, 1st 20sq cm Yes Yes Pain Scale: 0-10 Numeric Is Patient Pain Free? Yes Yes - Nurse 3 - General Ulcer D/C NN Start: 01/02/23 08:59 Freq: Status: Active Protocol: Activity Type Activity Date Activity User E-sign Co-sign Detail Recorded Client Recorded Date Recorded By Document 01/02/23 09:27 MW Desktop 01/02/23 09:28 MW Document 01/09/23 09:43 GM Desktop 01/09/23 09:44 GM 01/02/23 01/09/23 09:27 09:43 Wound Care Center Nurse 3 1. L buttock -Ulcer Cleansing Rinsed/ Not Cleansed Irrigated with Saline -Foul Odor after Cleansing No No -Negative Pressure Wound Therapy N/A -Primary Dressing Applied Mepilex Border, Mepilex Border, Promogran Promogran -Mepilex Border 1 1 -Promogran 1 1 Treatment Response Procedure Tolerated Well Pain Scale: 0-10 Numeric Is Patient Pain Free? Yes Yes Teaching: Wound Center Dressing Your Wound -Person Taught Patient,Family -Teaching Method Discussion, Demonstration -Response to teaching Verbalize understanding WC - Visit Discharge Discharge Condition Stable Stable Ambulatory Status Ambulatory Ambulatory,Cane Transportation Private Auto Private Auto Accompanied by Medication Reconcilliation completed & No Yes provided to patient/care provider Clinical Summary of Care Provided Yes Yes Assessment/Plan Assessment/Plan (1) Decubitus ulcer: CODE(S): L89.90 - Pressure ulcer of unspecified site, unspecified stage QUALIFIERS: Pressure injury location: buttock Pressure injury stage: stage 2 Laterality: left Qualified Code(s): L89.322 - Pressure ulcer of left buttock, stage 2 (2) History of open reduction and internal fixation (ORIF) procedure: CODE(S): Z98.890 - Other specified postprocedural states (3) Debility: CODE(S): R53.81 - Other malaise PLAN: Plan Debridement performed today in clinic as annotated above. At home wound-care instructions: Will have his continue to apply Promogran and foam dressing to the ulcer for moderate drainage daily. Keep dressing clean and dry. Encouraged off loading with propping up his hip instead of sitting on the donut cushion and increase protein intake. Off-loading: The patient was instructed to avoid pressure and friction on the affected areas. Reposition every 2 hours at minimum. Avoid prolonged standing and/or dangling of legs. When seated, feet should be elevated at chest level. Frequent ambulation is encouraged. Diet: Patient encouraged to increase protein intake while taking caution to avoid high carbohydrate and/or sugar intake. Labs/cultures/imaging: Wound culture taken today to evaluate for infection. Follow-up: Return in 1 week for wound care follow up. Return sooner or report to the emergency room should symptoms worsen, or new symptoms arise. Note: [employer] speech recognition mitochondrial disorders counselor software was used to create portions of this document. Sound-alike and misspelled words, as well as other mitochondrial disorders counselor errors may be contained in the documentation.
[2023-01-23 08:58] VITALS: BP 134/69; PULSE 72; RESP 18; TEMP 36.6
--- NOTE | 2023-01-23 13:56 | PN.PCM_ITS ---
History of Present Illness Date of Service: 01/23/23 Chief Complaint: Stage 2 pressure ulcer left buttock History of Wound: Kofi is a very pleasant 87 yo gentleman that presents to the wound healing center today for evaluation and treatment of a left buttock ulcer that has been present for many years and comes and goes. He has used many topical treatments including calmoseptine and Aquaphor to the area. He sits on a donut cushion when he is sitting in his recliner which is where he spends the majority of his time during the day. He has lost approx. 40 lbs over the last several years which he attributes to some of the cause of the ulcer as he does not have as much subcutaneous tissue between his skin and his ischium. He does eat well but does not like protein shakes or yogurt. He is otherwise healthy and does not have any chronic medical problems. He was referred here by a Rehab facility where he was receiving therapy after a hip fracture and repair. He is doing well and mobility is improving. There has been no wound cultures done on the wound and he is currently not on any antibiotic treatment. He denies drainage but states the the area is painful unless it is covered with a bandage. Subjective Subjective Kofi is here today for follow up of a nonhealing pressure ulcer on his left buttock. His ulcer is slightly improved. He is tolerating antibiotic treatment and dressings with Promogran and foam bordered dressing for moderate drainage. He denies any increased drainage, pain or erythema. Objective Data Objective Data Vital Signs: Vital Signs Temp Pulse Resp BP O2 Del Method 98 F 72 18 134/69 H Room Air 01/23/23 08:58 01/23/23 08:58 01/23/23 08:58 01/23/23 08:58 01/23/23 08:58 Oxygen Delivery Method Room Air Physical Exam Const alert, oriented x3 and no apparent distress General Appearance: cooperative and comfortable Nutritional Appearance: underweight HEENT normocephalic and head/scalp atraumatic Resp normal respiratory effort Effort and Inspection: able to speak in complete sentences Cardio regular rate and regular rhythm Skin Wounds: wounds noted Wound Narrative: as in clinical panel Psych mental status grossly normal, thought process normal, cooperative and affect normal Debridement Note Debridement Note Wound debrided: left buttock Laterality: Left Wound Grade/Stage: Stage 2 Type of Debridement: Selective debridement Anesthesia Used: 4% Lidocaine Solution and 5% Lidocaine Gel Depth: Down to and including healthy tissue and in the subcutaneous layer Percentage of wound debrided: 100 Instrument Used: - (gauze) Tissue Removed: Yellow slough, devitalized tissue Severity: Fat Layer Exposed Amount of bleeding with debridement: Mild Bleeding Controlled with: Compression and gauze Patient tolerated procedure: Patient tolerated procedure well Post-Debridement Measurements and Additional Note: Post-Debridement Measurements/Treatment - Nurse 1 - General Ulcer Assessment Start: 01/02/23 08:59 Freq: Status: Active Protocol: MAGALY Activity Type Activity Date Activity User E-sign Co-sign Detail Recorded Client Recorded Date Recorded By Document 01/02/23 08:59 RB Desktop 01/02/23 09:02 RB Document 01/09/23 08:50 KW Desktop 01/09/23 09:05 KW Document 01/23/23 08:58 MT Desktop 01/23/23 09:02 MT 01/02/23 01/09/23 01/23/23 08:59 08:50 08:58 - Today's Visit Information Type of service Follow-up Visit Follow-up Visit Follow-up Visit (Physician/COPPER PLATE PRINTER (Physician/COPPER PLATE PRINTER (Physician/COPPER PLATE PRINTER ) ) ) Arrival Mode Ambulatory,Cane Ambulatory,Cane Ambulatory Transfer Assistance None Accompanied by self Patient Identification Verified (Name & Yes Yes Yes ) Patient Requires Transmission-Based No Precautions Safety Precautions Fall Prevention Vital Signs Temperature (97.8 F-99.1 F) 96.8 F L 96.8 F L 98 F Temperature Source Temporal Temporal Temporal Pulse Rate (60-100) 70 72 72 Pulse Location Monitor Monitor Monitor Respiratory Rate (12-18) 18 18 18 Respiratory rate source Observation Observation Observation Oxygen Delivery Method Room Air Room Air Blood Pressure (90/60-120/80) 106/51 L 117/36 L 134/69 H Blood Pressure Mean (mm Hg) 69 63 90 Source Monitor Monitor Monitor Position Semi-Fowlers Sitting Sitting Blood Pressure Location Left Arm Right Arm Right Arm History Since Last Visit- (Skip if this is Patient's initial visit) Have you changed medications since your No No last visit? Any new allergies or adverse reactions No No Had a fall/change in ADL's that may No No increase risk of falls Signs or symptoms of abuse and/or No No neglect since last visit Have you been in the hospital since your No No last visit? Has dressing in place as prescribed Yes Yes Yes Has compression in place as prescribed No N/A N/A Has offloadiing in place as prescribed No N/A N/A Experienced any changes in pain level or No No No management Left Footwear Regular Shoe Regular Shoe Right Footwear Regular Shoe Regular Shoe Pain Scale: 0-10 Numeric Is Patient Pain Free? No Yes Yes buttocks -Description Aching -Intensity 5 -Duration (hours) Acute -Pain Behavior Withdrawal from Touch -Pain Aggravating Factors Sitting, Debridement -Alleviating Factors/Interventions None WC - Nurse 1 - General Ulcer Measurement Start: 01/02/23 08:59 Freq: Status: Active Protocol: Activity Type Activity Date Activity User E-sign Co-sign Detail Recorded Client Recorded Date Recorded By Document 01/02/23 08:59 RB Desktop 01/02/23 09:02 RB Document 01/09/23 08:50 KW Desktop 01/09/23 09:05 KW Document 01/23/23 08:58 MT Desktop 01/23/23 09:02 MT 01/02/23 01/09/23 01/23/23 08:59 08:50 08:58 Wound Center Nurse 1 2. R buttock -Combined with other wound No -Current Size (cm) - Length 0.1 -Current Size (cm) - Width 0.1 -Current Size (cm) - Depth 0.1 -Total Square Cm 0.01 -Epithelialization Large 67-100% -Tunneling No -Undermining/Tunneling No -Circular Undermining No -Exudate Amt None Present -Wound Margin Distinct, Outline Attached -Granulation Amt Large (67-100%) -Granulation Quality [place] -Slough/Fibrin Yes -Necrosis Amt Small (1-33%) -Necrotic Tissue Type Adherent Slough -Structure Exposed N/A -Texture (Ela-wound Skin Appearance) Assessed -Moisture (Ela-wound Skin Appearance) Assessed -Color (Ela-wound Skin Appearance) Assessed -Temperature (Ela-wound Skin No Abnormality Appearance) (Pt Warm) -Tenderness on Palpation (Ela-wound No Skin Appearance) -Ulcer Cleansing Wound Cleanser -Foul Odor after Cleansing No 1. L buttock -Combined with other wound No -Current Size (cm) - Length 1.5 1.5 0.1 -Current Size (cm) - Width 0.3 0.1 0.1 -Current Size (cm) - Depth 0.1 0.1 0.1 -Total Square Cm 0.45 0.15 0.01 -Photo Taken No -Epithelialization Large 67-100% -Tunneling No No -Undermining/Tunneling No No -Circular Undermining No No -Exudate Amt Medium None Present -Exudate Type Serosanguineous -Wound Margin Distinct, Distinct, Flat & Intact Outline Outline Attached Attached -Granulation Amt Medium (34-66%) Large (67-100%) Large (67-100%) -Granulation Quality [place] Red Pale,[place],Red -Slough/Fibrin Yes -Necrosis Amt Medium (34-66%) -Necrotic Tissue Type Adherent Slough -Structure Exposed N/A -Texture (Ela-wound Skin Appearance) Assessed Assessed Assessed -Moisture (Ela-wound Skin Appearance) Assessed Assessed Assessed -Color (Ela-wound Skin Appearance) Assessed Assessed, Assessed Erythema -Temperature (Ela-wound Skin No Abnormality No Abnormality No Abnormality Appearance) (Pt Warm) (Pt Warm) (Pt Warm) -Tenderness on Palpation (Ela-wound No No Skin Appearance) -Ulcer Cleansing Wound Cleanser Rinsed/ Irrigated with Saline -Foul Odor after Cleansing No No -Anesthetic Used 5% Lidocaine 5% Lidocaine 5% Lidocaine Gel Gel Gel -Wound Comment(s) looks healed Lower Limb Edema Present NA WC - Nurse 2 - General Ulcer CM Notes Start: 01/02/23 08:59 Freq: Status: Active Protocol: Activity Type Activity Date Activity User E-sign Co-sign Detail Recorded Client Recorded Date Recorded By Document 01/02/23 09:11 Desktop 01/02/23 09:20 Document 01/09/23 09:31 Desktop 01/09/23 09:36 Document 01/23/23 09:26 Desktop 01/23/23 09:27 01/02/23 01/09/23 01/23/23 09:11 09:31 09:26 Wound Center Nurse 2 2. R buttock -Time 09:11 -Correct Patient Yes -Correct Side, Site, Position Yes -Correct Procedure Yes -Tunneling No -Undermining/Tunneling No -Circular Undermining No -Wound/Ulcer Outcome Healed- Epithelialized -Other Pressure Reduction repositioning frequently 1. L buttock -Time 09:12 09:31 09:26 -Correct Patient Yes Yes Yes -Correct Side, Site, Position Yes Yes Yes -Correct Procedure Yes Yes -Procedure Performed Yes Yes No -Type of Procedure Debridement Debridement -Clinical Debridement Subcutaneous Subcutaneous -Tissue Removed Subcutaneous Subcutaneous -Post Debridement (cm) - Length 1.6 1.2 0.2 -Post Debridement (cm) - Width 0.2 0.1 0.3 -Post Debridement (cm) - Depth 0.1 0.1 0.1 -Total Square (Post) (cm) 0.32 0.12 0.06 -Area of Debridement (cm) - Length 1.6 1.2 -Area of Debridement (cm) - Width 0.2 0.1 -Total Square (Area) (cm) 0.32 0.12 -Tunneling No No -Undermining/Tunneling No No -Circular Undermining No No -Wound/Ulcer Outcome Not Healed Not Healed Not Healed -Ulcer Cleansing Rinsed/ Rinsed/ Rinsed/ Irrigated with Irrigated with Irrigated with Saline Saline Saline -Foul Odor after Cleansing No No No -Bioengineered Tissue No No No -Bleeding Controlled with Silver Nitrate Pressure NA -Treatment Response Procedure Procedure Tolerated Well Tolerated Well -Debridement - Subq, 1st 20sq cm Yes Yes No Pain Scale: 0-10 Numeric Is Patient Pain Free? Yes Yes Yes WC - Nurse 3 - General Ulcer D/C NN Start: 01/02/23 08:59 Freq: Status: Active Protocol: Activity Type Activity Date Activity User E-sign Co-sign Detail Recorded Client Recorded Date Recorded By Document 01/02/23 09:27 Desktop 01/02/23 09:28 MW Document 01/09/23 09:43 Desktop 01/09/23 09:44 GM Document 01/23/23 09:28 Desktop 01/23/23 09:29 01/02/23 01/09/23 01/23/23 09:27 09:43 09:28 Wound Care Center Nurse 3 1. L buttock -Ulcer Cleansing Rinsed/ Not Cleansed Not Cleansed Irrigated with Saline -Foul Odor after Cleansing No No No -Negative Pressure Wound Therapy N/A -Primary Dressing Applied Mepilex Border, Mepilex Border, Promogran Promogran Promogran -Mepilex Border 1 1 -Promogran 1 1 1 Treatment Response Procedure Tolerated Well Pain Scale: 0-10 Numeric Is Patient Pain Free? Yes Yes Yes Teaching: Wound Center Dressing Your Wound -Person Taught Patient,Family -Teaching Method Discussion, Demonstration -Response to teaching Verbalize understanding WC - Visit Discharge Discharge Condition Stable Stable Stable Ambulatory Status Ambulatory Ambulatory,Cane Ambulatory,Cane Transportation Private Auto Private Auto Private Auto Accompanied by Medication Reconcilliation completed & No Yes Yes provided to patient/care provider Clinical Summary of Care Provided Yes Yes Yes Assessment/Plan Assessment/Plan (1) Decubitus ulcer: CODE(S): L89.90 - Pressure ulcer of unspecified site, unspecified stage QUALIFIERS: Pressure injury location: buttock Pressure injury stage: stage 2 Laterality: left Qualified Code(s): L89.322 - Pressure ulcer of left buttock, stage 2 (2) History of open reduction and internal fixation (ORIF) procedure: CODE(S): Z98.890 - Other specified postprocedural states (3) Debility: CODE(S): R53.81 - Other malaise PLAN: Plan Debridement performed today in clinic as annotated above. At home wound-care instructions: Will have his continue to apply Promogran and foam dressing to the ulcer for moderate drainage daily. Keep dressing clean and dry. Encouraged off loading with propping up his hip instead of sitting on the donut cushion and increase protein intake. Off-loading: The patient was instructed to avoid pressure and friction on the affected areas. Reposition every 2 hours at minimum. Avoid prolonged standing and/or dangling of legs. When seated, feet should be elevated at chest level. Frequent ambulation is encouraged. Diet: Patient encouraged to increase protein intake while taking caution to avoid high carbohydrate and/or sugar intake. Labs/cultures/imaging: Wound culture taken today to evaluate for infection. Follow-up: Return in 2 weeks for wound care follow up. Return sooner or report to the emergency room should symptoms worsen, or new symptoms arise. Note: [employer] speech recognition electrical mechanical technician software was used to create portions of this document. Sound-alike and misspelled words, as well as other electrical mechanical technician errors may be contained in the documentation.
== END 2023-01-27 23:59 | disposition home or self-care (01) ==
LOC: WC 09:00
PROVIDERS: PCP Family Medicine; Referring Provider Family Medicine; Visit Provider Family Medicine
DX: L89.322 Pressure ulcer of left buttock, stage 2 (principal)
CPT/HCPCS: 11042; 97597

== ENCOUNTER 2023-02-06 08:47 | Outpatient (RCR) | payer MEDICARE, OTHER, SELFPAY ==
[2021-09-09 14:02] VITALS: BMI 19.5
[2023-01-28 00:51] VITALS: BP 134/69; PULSE 72; RESP 18; TEMP 36.6
[2023-02-06 08:58] VITALS: BP 122/61; PULSE 78; RESP 18; TEMP 36.6
--- NOTE | 2023-02-06 09:31 | PN.PCM_ITS ---
History of Present Illness Date of Service: 02/06/23 Chief Complaint: Stage 2 pressure ulcer left buttock History of Wound: Kofi is a very pleasant 87 yo gentleman that presents to the wound healing center today for evaluation and treatment of a left buttock ulcer that has been present for many years and comes and goes. He has used many topical treatments including calmoseptine and Aquaphor to the area. He sits on a donut cushion when he is sitting in his recliner which is where he spends the majority of his time during the day. He has lost approx. 40 lbs over the last several years which he attributes to some of the cause of the ulcer as he does not have as much subcutaneous tissue between his skin and his ischium. He does eat well but does not like protein shakes or yogurt. He is otherwise healthy and does not have any chronic medical problems. He was referred here by a Rehab facility where he was receiving therapy after a hip fracture and repair. He is doing well and mobility is improving. There has been no wound cultures done on the wound and he is currently not on any antibiotic treatment. He denies drainage but states the the area is painful unless it is covered with a bandage. Subjective Subjective Kofi is here today for follow up of a nonhealing pressure ulcer on his left buttock. His ulcer is slightly improved. He is tolerating dressings with Promogran and foam bordered dressing for moderate drainage. He denies any increased drainage, pain or erythema. Objective Data Objective Data Vital Signs: Vital Signs Temp Pulse Resp BP O2 Del Method 98 F 78 18 122/61 H Room Air 02/06/23 08:58 02/06/23 08:58 02/06/23 08:58 02/06/23 08:58 02/06/23 08:58 Oxygen Delivery Method Room Air Physical Exam Const alert, oriented x3 and no apparent distress General Appearance: cooperative and comfortable HEENT normocephalic and head/scalp atraumatic Resp normal respiratory effort Effort and Inspection: able to speak in complete sentences Cardio regular rate and regular rhythm Skin Wounds: wounds noted Wound Narrative: as in clinical panel Psych mental status grossly normal, thought process normal, cooperative and affect normal Debridement Note Debridement Note Wound debrided: left buttock Laterality: Left Wound Grade/Stage: Stage 2 Type of Debridement: Selective debridement Anesthesia Used: 4% Lidocaine Solution and 5% Lidocaine Gel Depth: Down to and including healthy tissue and in the subcutaneous layer Percentage of wound debrided: 100 Instrument Used: - (gauze) Tissue Removed: Yellow slough, devitalized tissue Severity: Fat Layer Exposed Amount of bleeding with debridement: Mild Bleeding Controlled with: Compression and gauze Patient tolerated procedure: Patient tolerated procedure well Post-Debridement Measurements and Additional Note: Post-Debridement Measurements/Treatment DEXTER - Nurse 1 - General Ulcer Assessment Start: 02/06/23 08:58 Freq: Status: Active Protocol: MAGALY Activity Type Activity Date Activity User E-sign Co-sign Detail Recorded Client Recorded Date Recorded By Document 02/06/23 08:58 UT [employer] 02/06/23 09:06 UT 02/06/23 08:58 - Today's Visit Information Type of service Follow-up Visit (Physician/ENVIRONMENTAL FIELD TECHNICIAN ) Arrival Mode Ambulatory Accompanied by self Patient Identification Verified (Name & Yes ) Safety Precautions Fall Prevention Vital Signs Temperature (97.8 F-99.1 F) 98 F Temperature Source Temporal Pulse Rate (60-100) 78 Pulse Location Monitor Respiratory Rate (12-18) 18 Respiratory rate source Observation Oxygen Delivery Method Room Air Blood Pressure (90/60-120/80) 122/61 H Blood Pressure Mean (mm Hg) 81 Source Monitor Position Sitting Blood Pressure Location Left Arm History Since Last Visit- (Skip if this is Patient's initial visit) Has dressing in place as prescribed Yes Has compression in place as prescribed N/A Has offloadiing in place as prescribed N/A Experienced any changes in pain level or No management Left Footwear Regular Shoe Right Footwear Regular Shoe Pain Scale: 0-10 Numeric Is Patient Pain Free? Yes Fredis Nurse 1 - General Ulcer Measurement Start: 02/06/23 08:58 Freq: Status: Active Protocol: Activity Type Activity Date Activity User E-sign Co-sign Detail Recorded Client Recorded Date Recorded By Document 02/06/23 08:58 [facility] [employer] 02/06/23 09:06 UT 02/06/23 08:58 Wound Center Nurse 1 1. L buttock -Current Size (cm) - Length 0.1 -Current Size (cm) - Width 0.1 -Current Size (cm) - Depth 0.1 -Total Square Cm 0.01 -Tunneling No -Undermining/Tunneling No -Circular Undermining No -Exudate Amt None Present -Wound Margin Flat & Intact -Granulation Amt Large (67-100%) -Granulation Quality Pale,[place] -Slough/Fibrin No -Necrosis Amt None Present (0 %) -Texture (Ela-wound Skin Appearance) Assessed,Rash -Moisture (Ela-wound Skin Appearance) Assessed, Maceration,Dry/ Scaly -Color (Ela-wound Skin Appearance) Assessed -Temperature (Ela-wound Skin No Abnormality Appearance) (Pt Warm) -Tenderness on Palpation (Ela-wound No Skin Appearance) -Ulcer Cleansing Rinsed/ Irrigated with Saline -Foul Odor after Cleansing No -Anesthetic Used 5% Lidocaine Gel Lower Limb Edema Present NA WC - Nurse 2 - General Ulcer CM Notes Start: 02/06/23 08:58 Freq: Status: Active Protocol: Activity Type Activity Date Activity User E-sign Co-sign Detail Recorded Client Recorded Date Recorded By Document 02/06/23 09:12 Desktop 02/06/23 09:20 02/06/23 09:12 Wound Center Nurse 2 1. L buttock -Time 09:12 -Correct Patient Yes -Correct Side, Site, Position Yes -Correct Procedure Yes -Procedure Performed Yes -Type of Procedure Debridement -Clinical Debridement Epidermis / Dermis -Tissue Removed Epidermis -Post Debridement (cm) - Length 0.2 -Post Debridement (cm) - Width 0.2 -Post Debridement (cm) - Depth 0.2 -Total Square (Post) (cm) 0.04 -Area of Debridement (cm) - Length 0.2 -Area of Debridement (cm) - Width 0.2 -Total Square (Area) (cm) 0.04 -Tunneling No -Undermining/Tunneling No -Circular Undermining No -Ulcer Cleansing Rinsed/ Irrigated with Saline -Foul Odor after Cleansing No -Bleeding Controlled with Pressure -Treatment Response Procedure Tolerated Well -Debridement - Open, 1st 20sq cm Yes Pain Scale: 0-10 Numeric Is Patient Pain Free? Yes - Nurse 3 - General Ulcer D/C NN Start: 02/06/23 08:58 Freq: Status: Active Protocol: Activity Type Activity Date Activity User E-sign Co-sign Detail Recorded Client Recorded Date Recorded By Document 02/06/23 09:20 Desktop 02/06/23 09:21 02/06/23 09:20 Wound Care Center Nurse 3 1. L buttock -Ulcer Cleansing Not Cleansed -Foul Odor after Cleansing No -Primary Dressing Applied Mepilex Border, Promogran -Mepilex Border 1 -Promogran 1 Pain Scale: 0-10 Numeric Is Patient Pain Free? Yes Teaching: Wound Center Increased protein -Person Taught Patient -Teaching Method Discussion -Response to teaching Verbalize understanding WC - Visit Discharge Discharge Condition Stable Ambulatory Status Ambulatory,Cane Transportation Private Auto Medication Reconcilliation completed & Yes provided to patient/care provider Clinical Summary of Care Provided Yes Assessment/Plan Assessment/Plan (1) Decubitus ulcer: CODE(S): L89.90 - Pressure ulcer of unspecified site, unspecified stage QUALIFIERS: Pressure injury location: buttock Pressure injury stage: stage 2 Laterality: left Qualified Code(s): L89.322 - Pressure ulcer of left buttock, stage 2 (2) History of open reduction and internal fixation (ORIF) procedure: CODE(S): Z98.890 - Other specified postprocedural states (3) Debility: CODE(S): R53.81 - Other malaise PLAN: Plan Debridement performed today in clinic as annotated above. At home wound-care instructions: Will have he or his continue to apply Promogran and foam dressing to the ulcer for moderate drainage daily. Keep dressing clean and dry. Encouraged off loading with propping up his hip instead of sitting on the donut cushion and increase protein intake. Off-loading: The patient was instructed to avoid pressure and friction on the affected areas. Reposition every 2 hours at minimum. Avoid prolonged standing and/or dangling of legs. When seated, feet should be elevated at chest level. Frequent ambulation is encouraged. Diet: Patient encouraged to increase protein intake while taking caution to avoid high carbohydrate and/or sugar intake. Labs/cultures/imaging: Follow-up: Return in 3 weeks for wound care follow up. Return sooner or report to the emergency room should symptoms worsen, or new symptoms arise. Note: [employer] speech recognition provider service representative software was used to create port ions of this document. Sound-alike and misspelled words, as well as other provider service representative errors may be contained in the documentation.
== END 2023-02-26 23:59 | disposition home or self-care (01) ==
LOC: WC 08:47
PROVIDERS: PCP Family Medicine; Referring Provider Family Medicine; Visit Provider Family Medicine
DX: L89.322 Pressure ulcer of left buttock, stage 2 (principal); Z98.890 Other specified postprocedural states; R53.81 Other malaise
CPT/HCPCS: 97597

== ENCOUNTER 2023-02-27 08:24 | Outpatient (RCR) | payer MEDICARE, OTHER, SELFPAY ==
[2021-09-09 14:02] VITALS: BMI 19.5
[2023-02-27 00:49] VITALS: BP 122/61; PULSE 78; RESP 18; TEMP 36.6
== END 2023-03-29 23:59 | disposition home or self-care (01) ==
LOC: WC 08:24
PROVIDERS: PCP Family Medicine; Referring Provider Family Medicine; Visit Provider Family Medicine
DX: Z09 Encounter for follow-up examination after completed treatment for conditions other than malignant neoplasm (principal)

== ENCOUNTER → 2023-03-05 | Outpatient (CLI) | payer MEDICARE, OTHER, SELFPAY ==
[2021-09-09 14:02] VITALS: BMI 19.5
== END | disposition home or self-care (01) ==
PROVIDERS: PCP Family Medicine; Referring Provider Urology; Visit Provider Urology
DX: Z01.810 Encounter for preprocedural cardiovascular examination (principal); R31.0 Gross hematuria
CPT/HCPCS: 87077; 87086; 87088; 87186

== ENCOUNTER 2023-03-08 19:01 | Emergency (ER) | payer MEDICARE, OTHER, SELFPAY ==
[2021-09-09 14:02] VITALS: BMI 19.5
[2023-03-08 19:01] VITALS: PULSE 98; RESP 20; TEMP 36.7; O2SAT 91; BMI 17.9
[2023-03-08 19:12] VITALS: BP 155/90; PULSE 99; RESP 20; O2SAT 91
[2023-03-08 19:14] VITALS: O2SAT 94
--- NOTE | 2023-03-08 19:19 | EKG12_ITS ---
Test Reason : SOB Blood Pressure : / mmHG Vent. Rate : 089 BPM Atrial Rate : 089 BPM P-R Int : 136 ms QRS Dur : 076 ms QT Int : 340 ms P-R-T Axes : 079 075 075 degrees QTc Int : 413 ms Sinus rhythm with occasional Premature ventricular complexes Otherwise normal ECG Confirmed by ADRIEL CRABTREE, AUGUSTO ([id number]), online editor AMBROCIO ENRIQUEZ ([id number]) on 03/16/2023 6:48:43 AM Referred By: Confirmed By:TOD MOREL MD
--- NOTE | 2023-03-08 19:20 | EX.ED.DYSGE1 ---
HPI History of Present Illness Chief Complaint: Shortness of Breath Informant: patient, spouse/S.O. and family Narrative Narrative: Presents just not feeling well. He has not felt well for 2 or 3 days. Triage note says short of breath but he states that might be a little bit worse than normal but is not a big deal. He does not have any pain or myalgias. No headache. His appetite is a little bit down but no nausea vomiting. He does state he is mildly constipated but no abdominal pain at any time. After extensive questioning I find out that he saw his urologist recently and was placed on tamsulosin and ciprofloxacin for UTI. He filled this on the seventh of this month. But he denies burning with urination. He does admit to frequent urination. I cannot get a real specific symptom out of him other than not feeling well. He states he feels like the iron and my blood is turned to lead in my butt. PFSH PFSH Medical History Abnormal results of thyroid function studies Alcohol use Arthritis Back pain Cancer Cholelithiasis Chronic bronchitis Closed intertrochanteric fracture of left femur Former smoker Heartburn History of edema History of SIADH Hydronephrosis Hyponatremia Kidney failure Loss of hearing Low iron Prostate cancer Prostatic cancer Shortness of breath on exertion Vitamin D insufficiency Wears glasses Wears partial dentures Home Medications ciprofloxacin HCl 500 mg tablet 500 mg PO Q12H 03/08/23 [History Last Taken Unknown] levofloxacin 500 mg tablet 500 mg PO DAILY #7 tabs 03/08/23 [Rx Last Taken Unknown] tamsulosin 0.4 mg capsule 0.4 mg PO Q24H 03/08/23 [History Last Taken Unknown] Allergy/AdvReac Type Severity Reaction Status Date / Time No Known Allergies Allergy Verified 11/25/22 05:40 Family History Other Heart disease Surgical History H/O hernia repair History of cystoscopy History of open reduction and internal fixation (ORIF) procedure History of open reduction and internal fixation (ORIF) procedure History of renal stent History of transurethral resection of prostate Hx of cystoscopy Status post appendectomy Social History household members: spouse and other details: 2 st0ry house. He sleeps downstairs in a recliner. 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 Tobacco: How many years used: 67 how long ago did patient quit smoking: He quit in 2019 alcohol intake: current alcohol intake frequency: holidays/special occasions only substance use type: does not use ROS ROS ED ROS Narrative A complete review of systems was performed and is negative except as documented in the history of present illness. Some specific details below. Constitutional: No recent fevers or chills. Malaise but no myalgias. EYE: No discharge, visual complaints, or pain. Discharge. ENT: No difficulty swallowing. No swelling. No pain. No reflux symptoms. Able to eat and swallow without difficulty. CV: No chest pain or palpitations. No syncope or near syncope. Respiratory: See history of present illness. He states his breathing is never good. It might be a little worse than normal but no great change. He states he coughs up sputum every day but this is unchanged and has been going on for years. No different color or amount. GI: No abdominal pain. No nausea vomiting diarrhea. No blood in stool. He does have constipation. : No dysuria or hematuria. He does have frequent urination. See history of present illness. Musculoskeletal: No recent trauma. No pains. No swelling. Skin: No rash. Nondiaphoretic. Neuro: No weakness or numbness. Endocrine: No polyuria or polydipsia. EXAM Physical Exam Narrative Exam Narrative: CONSTITUTIONAL: Patient is nontoxic in appearance. The patient looks comfortable he does look a bit tired. He admits he did not sleep well last night but cannot think why. Work of breathing looks normal. HEENT: No notable trauma. Mucous membranes only dry. No sinus tenderness. No indication of pain with swallowing. EYES: No conjunctival injection. No proptosis. NECK:No JVD. No stridor. CARDIOVASCULAR: Regular rate. Regular rhythm. No notable murmur. No JVD. RESPIRATORY: No respiratory distress. Breathing is unlabored. No wheezes does not sound like he is moving a lot of air. When I have him do a forced expiration there is a hint of a wheeze. No rhonchi. No rales. No pain with a deep breath. No chest wall tenderness. GASTROINTESTINAL: Not distended. Bowel sounds are normal. No tenderness. No guarding. No rebound. No palpable mass. No bruit is heard. GENITOURINARY: No tenderness over the bladder. No CVA tenderness. MUSCULOSKELETAL: Atraumatic. No peripheral edema. No cord. No tenderness along the deep venous system. No asymmetry. No distended veins. NEUROLOGICAL: Patient is alert and appropriate. No focal deficit noted. SKIN: No noted rashes. No diaphoresis. PSYCHIATRIC: Patient is calm. Mood is appropriate. Const Vital Signs: 03/08/23 19:01 03/08/23 19:12 03/08/23 19:14 Temperature 98.1 F Temperature Source Oral Pulse Rate 98 99 Respiratory Rate 20 H 20 H Respiratory Effort Normal Non-Labored Respiratory Depth Normal Respiratory Pattern Normal Blood Pressure 155/90 H Blood Pressure Mean 111 Pulse Ox 91 91 Oxygen Delivery Method Room Air Room Air Room Air 03/08/23 19:28 Temperature Temperature Source Pulse Rate 90 Respiratory Rate 14 Respiratory Effort Respiratory Depth Respiratory Pattern Blood Pressure Blood Pressure Mean Pulse Ox Oxygen Delivery Method MDM MDM MDM Narrative Medical decision making narrative: Pen interpretation of his chest x-ray does appear to have a right lower lobe pneumonia. I reviewed prior films and including a CT of the chest from earlier this year. This is in the same area but it looks to be more. Final reading does show infiltrate. Patient's CBC is overall normal. White count hemoglobin and platelets are normal. Patient's electrolytes show minimally low sodium at 133. Glucose is just slightly up at 124. Patient's COVID and influenza are normal. Urinalysis is clear. No nitrites. There is some leukocyte Estrace. But there are only 5-10 white cells and a few red cells. We got the patient up and walk. He actually walked quite quickly in the halls. He was stable. Lowest saturation was 93%. At this point I think we can get him home. He is eating and he is drinking. No confusion. No hypoxia. I will switch him from ciprofloxacin to Levaquin. This should cover both urinary and pulmonary sources. We discussed reasons to return. Lab Data Attestation: I reviewed the patient's lab results. Labs: Laboratory Results - last 24 hr 03/08/23 03/08/23 19:33 20:21 WBC 5.9 RBC 4.64 Hgb 13.5 Hct 42.6 MCV 91.8 MCH 29.1 MCHC 31.7 L RDW Std Deviation 46.2 H RDW Coeff of Michael 13.6 Plt Count 251 MPV 8.7 Immature Gran % (Auto) 1.000 H Neut % (Auto) 82.4 H Lymph % (Auto) 7.[address] [place] % (Auto) 8.5 Eos % (Auto) 0.0 Baso % (Auto) 0.3 Absolute Neuts (auto) 4.8 Absolute Lymphs (auto) 0.46 L Nucleated RBC % 0 Differential Comment SCANNED Sodium 133 L Potassium 3.8 Chloride 99 Carbon Dioxide 31.0 Anion Gap 3 L BUN 15 Creatinine 1.05 Estim Creat Clear Calc 38.56 Est GFR (MDRD) Af Amer 86 Est GFR (MDRD) Non-Af 71 BUN/Creatinine Ratio 14.3 Glucose 124 H Calcium 8.7 Urine Color Yellow Urine Clarity Clear Urine pH 7.0 Ur Specific [place] 1.015 Urine Protein 100 H Urine Glucose (UA) Normal Urine Ketones 5 H Urine Occult Blood 250 H Urine Nitrite Negative Urine Bilirubin Negative Urine Urobilinogen Normal Ur Leukocyte Esterase 500 H Urine RBC 25-50 SEEN Urine WBC 5-10 SEEN Ur Squamous Epith Cells 0-5 SEEN Urine Bacteria 0 SEEN Urine Mucus 1+ Radiography Diagnostic Testing: Clinical Impression(s) from Imaging Studies Chest X-Ray 03/08/23 19:50 IMPRESSION: Right posterior lower lobe pneumonia. Electronically Signed: Leo Lawrence MD at 20:07 EST Reading Location ID and State: [facility] / MD , Service support , EKG Initial EKG: Comments: My independent interpretation of the patient's EKG shows a sinus rhythm with overall rate of 89. There is an occasional PVC. No acute ST elevation or depression. MA interval, QRS duration and QTc are normal. Discharge Plan Triage Chief Complaint: Shortness of Breath ED Provider: Albert Briscoe Dx/Rx/DC Orders Clinical Impression: Generalized weakness, History of UTI, Right lower lobe pneumonia Instructions: ED Pneumonia (Adult) Prescriptions: New levofloxacin [levofloxacin] 500 mg tablet 500 mg PO DAILY Qty: 7 0RF No Action tamsulosin 0.4 mg capsule 0.4 mg PO Q24H ciprofloxacin HCl 500 mg tablet 500 mg PO Q12H Primary Care Provider: Johnny Shelton Referrals: Johnny Shelton DO [Primary Care Provider] - 3-5 Days Activity Restrictions/Additional Instructions: The ciprofloxacin antibiotic that you are currently taking. Start the levofloxacin that is being prescribed tonight. The new antibiotic is only once a day for 7 days. Disposition Disposition: Home, Self Care
[2023-03-08] MEDS: Ipratropium/Albuterol Sulfate 3 ML AMPUL.NEB INHALATION (19:25)
[2023-03-08 19:28] VITALS: PULSE 90; RESP 14
[2023-03-08 19:41] LABS: Absolute Lymphocyte Count 0.46 X10^3/uL (0.83-4.51); Absolute Neutrophil Count 4.8 X10^3/uL (2.0-7.7); Basophil# 0.02 X10^3/uL; Basophil% 0.3 % (0-1); Hematocrit 42.6 % (40-54); Hemoglobin 13.5 g/dL (13.0-16.5); Lymphocyte # 0.46 X10^3/ul (0.83-4.51); Lymphocyte % 7.8 % (19-41); Mean Corp Hgb Conc 31.7 g/dL (32-36); Mean Corpuscular Hgb 29.1 pg (27.0-32.0); Mean Corpuscular Volume 91.8 fL (80-94); Mean Platelet Vol. 8.7 fl (6.2-12.0); Monocyte% 8.5 % (0-10); NRBC Flagged by Analyzer 0 % (0-5); Neutrophil # 4.82 X10^3/uL (2.7-7.7); Neutrophil % 82.4 % (47-70); POSITIVE DIFFERENTIAL YES; Platelet Count 251 K/mm3 (150-450); RBC Distribution Width CV 13.6 % (11.6-14.6); RBC Distribution Width SD 46.2 fl (35.1-43.9); Red Blood Count 4.64 M/mm3 (4.6-6.2); White Blood Count 5.9 K/mm3 (4.4-11.0)
[2023-03-08 19:43] LABS: Differential Indicated SCAN CRITERIA MET
[2023-03-08 19:44] LABS: Differential Comment SCANNED
[2023-03-08] MEDS: 0.9% Normal Saline (500mL Bag) 500 ML 999 ML IV (19:47)
--- NOTE | 2023-03-08 19:50 | RAD_ITS ---
STUDY: XR Chest 2 Views 03/08/2023 7:49 PM REASON FOR EXAM: Male, 87 years old. cough COMPARISON: 11/25/2022 TECHNIQUE: XR Chest 2 Views FINDINGS: There is no demonstrated pleural abnormality. Right posterior lower lobe pneumonia. Normal heart size. Normal mediastinum. Normal bryan. Prominent appearing increased interstitial lung markings. Normal visualized pulmonary arteries. There is atherosclerotic calcification of the aortic arch with tortuosity. There are diffuse degenerative changes of the visualized thoracic spine. There is degenerative osteoarthritis of the bilateral shoulders. There are no acute findings of the upper abdomen. RAD/Chest PA and Lateral IMPRESSION: Right posterior lower lobe pneumonia. Electronically Signed: Leo Lawrence MD at 20:07 EST ,
[2023-03-08 19:57] LABS: Anion Gap 3 (5-15); BUN 15 mg/dL (7-18); BUN/Creat Ratio 14.3 RATIO (10-20); Calcium,Total 8.7 mg/dL (8.5-10.1); Chloride 99 mmol/L (98-107); Creatinine, Serum 1.05 mg/dL (0.70-1.30); EST Glomerular Filtration Rate 71 mL/min (>60); Est Glom Filt Rate - Afr Amer 86 mL/min (>60); Estimated Creatinine Clearance 38.56 ml/min; Glucose 124 mg/dL (74-106); Potassium 3.8 mmol/L (3.5-5.1); Sodium Level 133 mmol/L (136-145)
[2023-03-08 20:28] LABS: Bacteria 0 SEEN /hpf (None Seen)
[2023-03-08 20:48] LABS: Color, Urine Yellow (Yellow); Glucose, Dipstick Normal (Normal); Ketone-Dipstick 5 mg/dl (Negative); Leukocyte Esterase-Dipstick 500 /ul (Negative); Nitrite-Dipstick Negative (Negative); Occult Blood-Urine 250 /ul (Negative); Protein-Dipstick 100 mg/dl (Negative); Specific Gravity, Urine 1.015 (1.002-1.030); Urine Bilirubin Dipstick Negative (Negative); Urine Clarity Clear (Clear); Urine Urobilinogen Normal (Normal)
[2023-03-08] MEDS: Ceftriaxone 1 GM/50 ML BAG IV (21:03)
[2023-03-08 21:07] LABS: Red Blood Cells-Urine 25-50 SEEN /hpf (0-5)
[2023-03-08 21:08] LABS: Mucous, Urine 1+ /hpf (<or=2+); Squamous Epithelial Cells - UA 0-5 SEEN /hpf (0-5); White Blood Cells 5-10 SEEN /hpf (0-5)
[2023-03-08 21:11] VITALS: O2SAT 96
[2023-03-08 21:35] VITALS: BP 165/78; PULSE 97; RESP 18; O2SAT 95
[2023-03-08 22:08] LABS: Lactic Acid 1.3 mmol/L (0.4-1.9)
== END 2023-03-08 21:54 | disposition home or self-care (01) ==
PROVIDERS: Emergency Provider Emergency Medicine; PCP Family Medicine; Visit Provider Emergency Medicine
DX: R53.1 Weakness (principal); J18.9 Pneumonia, unspecified organism; Z87.891 Personal history of nicotine dependence; Z79.899 Other long term (current) drug therapy
CPT/HCPCS: 71046; 80048; 81001; 83605; 85025; 87040; 87428; 93005; 94640; 96365; 99285; J7040; A4216

== ENCOUNTER → 2023-03-16 | Outpatient (CLI) | payer MEDICARE, OTHER, SELFPAY ==
[2021-09-09 14:02] VITALS: BMI 19.5
[2023-03-16 14:35] LABS: Hematocrit 44.4 % (40-54); Hemoglobin 13.4 g/dL (13.0-16.5); Mean Corp Hgb Conc 30.2 g/dL (32-36); Mean Corpuscular Hgb 29.1 pg (27.0-32.0); Mean Corpuscular Volume 96.3 fL (80-94); Mean Platelet Vol. 8.9 fl (6.2-12.0); Platelet Count 235 K/mm3 (150-450); RBC Distribution Width CV 13.8 % (11.6-14.6); Red Blood Count 4.61 M/mm3 (4.6-6.2); White Blood Count 4.8 K/mm3 (4.4-11.0)
[2023-03-16 15:10] LABS: Anion Gap 5 (5-15); BUN 19 mg/dL (7-18); BUN/Creat Ratio 17.4 RATIO (10-20); Calcium,Total 8.3 mg/dL (8.5-10.1); Chloride 103 mmol/L (98-107); Creatinine, Serum 1.09 mg/dL (0.70-1.30); EST Glomerular Filtration Rate 68 mL/min (>60); Est Glom Filt Rate - Afr Amer 82 mL/min (>60); Glucose 93 mg/dL (74-106); Potassium 4.2 mmol/L (3.5-5.1); Sodium Level 136 mmol/L (136-145)
== END | disposition home or self-care (01) ==
LOC: LAB 14:11
PROVIDERS: PCP Family Medicine; Referring Provider Urology; Visit Provider Urology
DX: Z01.818 Encounter for other preprocedural examination (principal)
CPT/HCPCS: 36415; 80048; 85027

== ENCOUNTER 2023-04-09 21:03 | Inpatient (IN) | payer MEDICARE, OTHER, SELFPAY ==
[2021-09-09 14:02] VITALS: BMI 19.5
[2023-04-09] VITALS (7 sets, daily range): BP systolic 110–155; BP diastolic 57–92; PULSE 81–108; RESP 18–23; TEMP 37–39.3; O2SAT 88–98; BMI 18.0
--- NOTE | 2023-04-09 21:20 | RAD_ITS ---
STUDY: X-RAY CHEST REASON FOR EXAM: Male, 87 years old. cough TECHNIQUE: Single AP portable view of the chest. COMPARISON: 03/08/2023. FINDINGS: Right-sided basilar density, decreased in size in the interval and suggestive of residual infiltrate versus atelectasis. Remainder of the lung manzo are clear. There is no demonstrated pleural abnormality. Normal size heart. Normal mediastinum and bryan. Normal visualized pulmonary arteries. There is atherosclerotic calcification of the aortic arch with tortuosity. There are diffuse degenerative changes of the visualized thoracic spine. There is degenerative osteoarthritis of the bilateral shoulders. Possible diffuse osteopenia. There is no demonstrated abnormality of the visualized soft tissue structures of the upper abdomen. RAD/Chest 1 View (Portable) IMPRESSION: Right-sided basilar density, slightly decreased in the interval is suggestive of residual infiltrate versus atelectasis. Clinical correlation recommended. Electronically Signed: Lucila Bhatti MD at 22:02 EST ,
[2023-04-09 21:22] LABS: Absolute Lymphocyte Count 0.54 X10^3/uL (0.83-4.51); Absolute Neutrophil Count 3.9 X10^3/uL (2.0-7.7); Basophil# 0.03 X10^3/uL; Basophil% 0.6 % (0-1); Hematocrit 40.4 % (40-54); Hemoglobin 13.5 g/dL (13.0-16.5); Lymphocyte # 0.54 X10^3/ul (0.83-4.51); Lymphocyte % 10.8 % (19-41); Mean Corp Hgb Conc 33.4 g/dL (32-36); Mean Corpuscular Hgb 29.9 pg (27.0-32.0); Mean Corpuscular Volume 89.6 fL (80-94); Mean Platelet Vol. 8.9 fl (6.2-12.0); Monocyte# 0.49 X10^3/uL; Monocyte% 9.8 % (0-10); NRBC Flagged by Analyzer 0 % (0-5); Neutrophil # 3.87 X10^3/uL (2.7-7.7); Neutrophil % 77.6 % (47-70); POSITIVE DIFFERENTIAL YES; Platelet Count 210 K/mm3 (150-450); RBC Distribution Width SD 48.8 fl (35.1-43.9); Red Blood Count 4.51 M/mm3 (4.6-6.2)
[2023-04-09 21:30] LABS: Differential Indicated SCAN CRITERIA MET
[2023-04-09] MEDS: Acetaminophen 500 MG Tablet 1000 MG PO (21:30)
[2023-04-09 21:35] LABS: Anisocytosis RARE; Platelet Estimate ADEQUATE (ADEQ); Red Cell Morphology NORM C+C NORMAL (NORM C&C)
--- OUTSIDE RECORDS SUMMARY | 2023-04-09 21:36 | XMS RPT_ITS | CCD ---
Author Name Unknown Address [address] [place] [address] Organization [facility] Care Team Providers Care Taker Out Name Role Phone Unavailable Primary Care Provider Dejah Aviles, Physician Primary Care Provider MADISON Caputo Attending Unavaila ble MADISON PEREZ Attending Unavaila ble NO, PHYSICIAN Primary Care Unavailable MADISON PEREZ Attending Unavaila ble NO, PHYSICIAN Primary Care Unavailable Zac HEBERT MD, Frank A Primary Care Provider Lela vailable Medications Completed/Discontinued Medications Medication Drug Class(es) Dates Sig (Normalized) Sig (Original) B cmplx 4/vit D3/C/folic/zinc (VITAL-D RX ORAL) (1 source) B cmplx 4/vit D3/C/folic/zinc (VITAL-D RX ORAL) Take by mouth once daily. 0 Active Problems Active Problems Problem Classification Problem Date Documented Da te Episodic/Chronic Cancer of bronchus; lung (1 source) Non-small cell lung cancer; Translations: [Malignant neoplasm of unspecified part of left bronchus or lung] Onset: 01-26-2020 01-26-2020 Chronic Cancer of prostate (5 sources) Malignant tumor of prostate; Translations: [Malignant neoplasm of prostate] Chronic Cataract (4 sources) Bilateral cataracts; Translations: [Unspecified cataract] 09-18-2020 Chronic Chronic ulcer of skin (1 source) Pressure ulcer of sacral region; Translations: [Pressure ulcer of sacral region, stage 1] Onset: 05-26-2017 05-26-2017 Chronic Hyperplasia of prostate (1 source) Benign prostatic hyperplasia; Translations: [Benign prostatic hyperplasia with lower urinary tract symptoms] Onset: 09-20-2014 09-20-2014 Chronic Mycoses (6 sources) Onychomycosis; Translations: [Tinea unguium] Episodic Nutritional deficiencies (1 source) Undernutrition; Translations: [Mild protein-calorie malnutrition] Onset: 05-26-2017 05-26-2017 Chronic Other connective tissue disease (1 source) Pain of toe of right foot; Translations: [Pain in right toe(s)] Episodic Other connective tissue disease (1 source) Pain of toe of left foot; Translations: [Pain in left toe(s)] Episodic Other diseases of kidney and ureters (5 sources) Kidney disease; Translations: [Disorder of kidney and ureter, unspecified] Episodic Other non-traumatic joint disorders (5 sources) Swelling of bilateral feet; Translations: [Effusion, right ankle] Episodic Other skin disorders (1 source) Disorder of nail; Translations: [Nail disorder, unspecified] Episodic Varicose veins of lower extremity (1 source) Varicose veins of lower extremity; Translations: [Varicose veins of bilateral lower extremities with other complications] Episodic Past or Other Problems Problem Classification Problem Date Documented Da te Episodic/Chronic Abdominal hernia (2 sources) Irreducible inguinal hernia; Translations: [Unilateral inguinal hernia, with obstruction, without gangrene, not specified as recurrent] Onset: 09-20-2014 09-20-2014 Episodic Allergic reactions (1 source) Psoriasiform eczema; 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] Onset: 09-20-2014 09-20-2014 Episodic Other non-traumatic joint disorders (1 source) Pain in right hip joint; Translations: [Pain in right hip] Onset: 09-10-2015 09-10-2015 Episodic Residual codes; unclassified (1 source) Tobacco user; Translations: [Tobacco use] Onset: 09-20-2014 09-20-2014 Episodic Spondylosis; intervertebral disc disorders; other back problems (1 source) Chronic low back pain; Translations: [Lumbago with sciatica, right side] Onset: 09-10-2015 09-10-2015 Episodic Results Test Name Value Interpretation Reference Range Facil ity Vital Signs Date Time Vital Sign Value Performing Clinician Faci lity 02-28-2021 15:02-0500 Body temperature 97.9 [degF] Madison Perez DPM Work Phone: [facility] 02-28-2021 15:02-0500 Diastolic blood pressure 74 mm[Hg] Madison Perez DPM Work Phone: [facility] 02-28-2021 15:02-0500 Heart rate 84 /min Madison Manzanomerman DPM Work Phone: [facility] 02-28-2021 15:02-0500 Systolic blood pressure 133 mm[Hg] Madisontal ManzanoPerez DPM Work Phone: [facility] 11-29-2020 15:13-0400 Body height 177.8 cm Madisontal ManzanoPerez DPM Work Phone: [facility] 11-29-2020 15:13-0400 Body mass index (BMI) [Ratio] 19.37 kg/m2 Madisontal ManzanoPerez DPM Work Phone: [facility] 11-29-2020 15:13-0400 Body temperature 97.81 [degF] Madison Manzanomerman DPM Work Phone: [facility] 11-29-2020 15:13-0400 Body weight 61.24 kg Madison Manzanomerman DPM Work Phone: [facility] 11-29-2020 15:13-0400 Diastolic blood pressure 57 mm[Hg] Madison Mnazanomerman DPM Work Phone: [facility] 11-29-2020 15:13-0400 Heart rate 83 /min Madison Manzanomerman DPM Work Phone: [facility] 11-29-2020 15:13-0400 Systolic blood pressure 124 mm[Hg] Madisontal ManzanoPerez DPM Work Phone: [facility] 06-28-2020 14:59-0400 Body height 177.8 cm Madisontal ManzanoPerez DPM Work Phone: [facility] 06-28-2020 14:59-0400 Body mass index (BMI) [Ratio] 19.37 kg/m2 Madisontal ManzanoPerez DPM Work Phone: [facility] 06-28-2020 14:59-0400 Body weight 61.24 kg Madisontal ManzanoPerez DPM Work Phone: [facility] 06-28-2020 14:59-0400 Diastolic blood pressure 72 mm[Hg] Madison Perez DPM Work Phone: [facility] 06-28-2020 14:59-0400 Systolic blood pressure 137 mm[Hg] Madison Perez DPM Work Phone: [facility] Encounters Encounter Date Encounter Type Care Provider Facility Start: 05-01-2021 Telephone encounter Hakeem Frank MD [facility] Plan of Treatment Date Care Activity Detail Author Start: 03-14-2029 Tetanus vaccination Tetanus: Every 10yrs [facility] Start: 03-14-2029 Urine microalbumin profile DTAP,TDAP,TD (2 - Td or Tdap) [facility] Start: 05-09-2022 DIABETES SCREEN DIABETES SCREEN [facility] Start: 09-27-2021 COVID-19 VACCINE (3 - Booster for Pfizer series) COVID-19 VACCINE (3 - Booster for Pfizer series) [facility] Start: 03-30-2021 ADVANCE DIRECTIVE DISCUSSION ADVANCE DIRECTIVE DISCUSSION [facility] Start: 02-28-2021 End: 02-28-2021 Patient encounter procedure 02/28/2021 Office Visit Podiatry Madison Perez DPM [address] [place] [address] [facility] Start: 11-28-2020 Influenza vaccination Sequential Influenza Vaccine (#1) [facility] Start: 10-11-2020 End: 10-11-2020 Patient encounter procedure 10/11/2020 Office Visit Podiatry Madison Perez DPM [address] [place] [address] [phone] [facility] Start: 01-31-2015 Pneumococcal Vaccine: Age 65+ (2 of 4 - PPSV23) Pneumococcal Vaccine: Age 65+ (2 of 4 - PPSV23) [facility] Start: 11-05-2000 Fall risk assessment Falls Risk Assessment [facility] Start: 11-05-1985 Administration of herpes zoster vaccine Zoster Vaccines (1 of 2) [facility] Start: 11-05-1954 SHINGRIX VACCINE (1 of 2) SHINGRIX VACCINE (1 of 2) [facility] Start: 1947 COVID-19 Vaccine (1) COVID-19 Vaccine (1) [facility] Start: 1947 Depression screening using PHQ-9 (Patient Health Questionnaire 9) score [facility] Start: 11-05-1938 History and physical examination, annual for health maintenance Wellness Visit [facility] Start: 1935 Tetanus vaccination Tetanus: Every 10yrs [facility] Immunizations Immunization Date Immunization Notes Care Provider Fa shanique 04-30-2021 COVID-19 vaccine, ag e 12+ yr (PFIZER-BIONTECH - PURPLE TOP) Hakeem Frank III, MD [facility] 04-09-2021 COVID-19 vaccine, ag e 12+ yr (PFIZER-BIONTECH - PURPLE TOP) Hakeem Frank III, MD [facility] 04-09-2021 influenza, high dose seasonal, preservative-free Hakeem Frank III, MD [facility] 02-06-2020 influenza, high dose seasonal, preservative-free Madison Perez DPM Work Phone: [facility] 01-19-2020 influenza, high dose seasonal, preservative-free Hakeem Frank III, MD [facility] 03-14-2019 influenza, high dose seasonal, preservative-free Hakeem Frank III, MD [facility] 03-14-2019 tetanus toxoid, redu mila diphtheria toxoid, and acellular pertussis vaccine, adsorbed Hakeem Frank III, MD [facility] 01-07-2018 influenza, high dose olivier, preservative-free Hakeem Frank III, MD [facility] 05-18-2017 influenza, high dose seasonal, preservative-free Hakeem Frank III, MD [facility] 05-15-2017 pneumococcal polysaccharide vaccine, 23 valent Hakeem Frank III, MD [facility] 12-06-2014 pneumococcal conjuga te vaccine, 13 valent Madison Perez DPM Work Phone: [facility] 09-20-2014 pneumococcal conjuga te vaccine, 13 valent Hakeem Frank III, MD [facility] Payers Date Payer Category Payer Unknown AARP A[employer] [id number] 2020-Present [phone] [address] [place] [address] [id number] 2020 Unknown [id number] 2017 Private Health Insurance [facility] AARP SUPPLEMENT [id number] 2017-Present [phone] [address] [place] [address] Indemnity [id number] 2000 Medicare [id number] 2000 Medicare MEDICARE MEDICAR E PART A & B [id number] 2000-Present [phone] CGS [id number] PART [place] [address] [id number] 2000 Medicare [id number] 1935 Unknown [id number] 1935 Unknown [id number] Social History Date Type Detail Facility Start: 05-26-2017 End: 09-18-2020 Tobacco smoking status NHIS Former smoker [facility] Start: 01-26-2020 End: 09-18-2020 Alcohol intake Current drinker of alcohol (finding) [facility] Start: 1935 Sex Assigned At Not on file O hiVTeal Start: 05-26-2017 End: 09-18-2020 Tobacco use and exposure Smokeless tobacco non-user [facility] Exposure to SARS-CoV -2 (event) Not sure [facility] Start: [birth year]30-1954 End: 05-12-2017 History of tobacco use Current smoker [facility] Start: 05-26-2017 Cigarettes smoked cu rrent (pack per day) - Reported 0.9 [facility] Clinical Note 04-01-2021 Note Date & Type Note Facility 04-01-2021 Note Patient Outreach (LINDA STEVEN) ELIESER VILLEGAS ([id number]) 1935 M BLD Date Time Provider Department 04/01/21 MARIFER CALLES During your visit today, we recorded the following information about you: Marifer Calles MA 04/01/2021 10:44 AM Signed POPULATION HEALTH NAVIGATION OUTREACH Action/FYI Attempted to contact patient, no answer and left message requesting a return call to update PCP and schedule Wellness Visit. Contact made with patient or family member? NO Pt identified by name and : NO Outreach Outcome/Action Unable to reach patient: Left message Reason for Outreach Attribution: Provider Off-boarding Payer: Payor: [facility] / Plan: [employer] [facility] SUPPLEMENT / Product Type: Indemnity / Care Gap Reviewed:: Annual Wellness visit Flu vaccine Reminder: Reminder note to check Health Maintenance for items below Health Maintenance items due: COVID-19 VACCINE(1) Never done SHINGRIX VACCINE(1 of 2) Never done ADVANCE DIRECTIVE DISCUSSION Never done INFLUENZA(1) due on 11/28/2020 Advanced Directives Completed: Have you ever planned for future healthcare decisions with a power of trademark attorney, living will, or advance directives? Referrals: Message Sent to Practice: Navigation Signature: Marifer Calles MA April 01, 2021 10:43 AM Allergies As of Date: 04/01/2021 (No Known Allergies) Date Reviewed: 04/08/2019 Reviewed by: Jim Kevin LPN - Fully Assessed Reason for Visit: Population Health Navigation Outreach [3910] Cmt: PCP Offboarding Prescriptions as of 04/01/2021 - B cmplx 4/vit D3/C/folic/zinc (VITAL-D RX ORAL) Take by mouth once daily. 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 Author Type: Manager [employer]ing Type: Progress Notes Filed: 04/01/2021 10:44 AM Note Text: POPULATION HEALTH NAVIGATION OUTREACH Action/FYI Attempted to contact patient, no answer and left message requesting a return call to update PCP and schedule Wellness Visit. Contact made with patient or family member? NO Pt identified by name and : NO Outreach Outcome/Action Unable to reach patient: Left message Reason for Outreach Attribution: Provider Off-boarding Payer: Payor: [facility] / Plan: [facility] AAR SUPPLEMENT / Product Type: Indemnity / Care Gap Reviewed:: Annual Wellness visit Flu vaccine Reminder: Reminder note to check Health Maintenance for items below Health Maintenance items due: COVID-19 VACCINE(1) Never done SHINGRIX VACCINE(1 of 2) Never done ADVANCE DIRECTIVE DISCUSSION Never done INFLUENZA(1) due on 11/28/2020 Advanced Directives Completed: Have you ever planned for future healthcare decisions with a power of trademark attorney, living will, or advance directives? Referrals: Message Sent to Practice: Navigation Signature: Marifer Calles MA April 01, 2021 10:43 AM [facility] History of Present illness Narrative 02-28-2021 Madison Perez DPM - 02/28/2021 4:23 PM EST Note Date & Type Note Facility 02-28-2021 History of Presen t illness Narrative I attempted to see patient Who was in a hurry to leave after 38 minutes. Patient refused care. documented in this encounter [facility] History of Present illness Narrative 11-29-2020 Madison Perez DPM - 11/29/2020 4:17 PM EDT Note Date & Type Note Facility 11-29-2020 History of Presen t illness Narrative Subjective :Pt is a 85 y.o. male seen at the office complaining of painful fungal toe nails . Pt is wanting treatment today. Objective: Int: Toe nails 1both feet Thick, yellow, dystrophic, crumbly , painful with subungal debris Neuro: Intact Vas: DP - palpable, both feetPTpalpable, both feet Assessment: lesser than 6 painful fungal toe nails Plan: I debrided toe nails 1-5 stefania feet with nail nippers. I also discussed treatment for the nail fungus which includes topical , oral or surgical removal. RTC 3 months. documented in this encounter [facility] Evaluation note Note Date & Type Note Facility documented in this encounter [facility] Evaluation note Note Date & Type Note Facility documented in this encounter [facility] Evaluation note Note Date & Type Note Facility documented in this encounter 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 PCP - General 11/29/20 Taker Out Relationship Specialty Start Date End Date Hakeem Frank III, MD PCP - General Family Practice 09/15/14 (unrecognized sect ion and content) No Status Records FoundNo Status Records Found INFORMATION SOURCE (unrecogn ized section and content) DATE CREATED AUTHOR AUTHOR'S ORGANIZ ATION 09/04/2021 [facility] Source Comments (unrecognize d section and content) In the event this informatio n is protected by the Federal Confidentiality of Alcohol and Drug Abuse Patient Records regulations: The Federal rules restrict any use of the information to criminally investigate or prosecute any alcohol or drug abuse patient.[facility] FOR RECORDS PERTAINING TO PATIENTS WHO ARE OR HAVE BEEN ENROLLED IN A CHEMICAL DEPENDENCY/SUBSTANCEABUSE PROGRAM, SOME INFORMATION MAY BE OMITTED. This clinical summary was aggregated from multiple sources. Caution should be exercised in using it in the provision of clinical care. This summary normalizes information from multiple sources, and as a consequence, information in this document may materially change the coding, format and clinical context of patient data. In addition, data may be omitted in some cases. CLINICAL DECISIONS SHOULD BE BASED ON THE PRIMARY CLINICAL RECORDS. [employer] [facility]. provides no warranty or guarantee of the accuracy or completeness of information in this document.
[2023-04-09 21:38] LABS: Anion Gap 5 (5-15); BUN 17 mg/dL (7-18); BUN/Creat Ratio 17.9 RATIO (10-20); Calcium,Total 8.7 mg/dL (8.5-10.1); Chloride 101 mmol/L (98-107); Creatinine, Serum 0.95 mg/dL (0.70-1.30); EST Glomerular Filtration Rate 80 mL/min (>60); Est Glom Filt Rate - Afr Amer 96 mL/min (>60); Estimated Creatinine Clearance 42.93 ml/min; Glucose 114 mg/dL (74-106); Potassium 4.1 mmol/L (3.5-5.1); Sodium Level 135 mmol/L (136-145)
--- NOTE | 2023-04-09 21:38 | EKG12_ITS ---
Test Reason : DYSRHYTHMIA Blood Pressure : / mmHG Vent. Rate : 087 BPM Atrial Rate : 087 BPM P-R Int : 130 ms QRS Dur : 078 ms QT Int : 338 ms P-R-T Axes : 077 067 071 degrees QTc Int : 406 ms Normal sinus rhythm Normal ECG Confirmed by SHA CRABTREE, MAVIS ([id number]), editor farm journal ALLISON ROSADO ([id number]) on 04/13/2023 9:21:13 AM Referred By: Confirmed By:MAVIS DALTON MD
[2023-04-09] MEDS: 0.9% Normal Saline (1000mL) 1,000 ML 999 ML IV (21:46)
[2023-04-09 21:56] LABS: International Normalized Ratio 1.1
[2023-04-09 21:57] LABS: Partial Thromboplast Time 34.9 Seconds (24.1-36.2)
[2023-04-09 22:06] LABS: ALB/GLOB Ratio 0.6 RATIO (0.9-2.4); AST(SGOT) 15 U/L (15-37); Alanine Aminotransfer ALT/SGPT 15 U/L (16-61); Albumin, Serum 2.6 g/dL (3.2-5.0); Alkaline Phosphatase 128 U/L (45-117); Globulin 4.3 g/dL (2.2-4.2); Protein, Total 6.9 g/dL (6.4-8.2)
[2023-04-09 22:21] LABS: Lactic Acid 1.1 mmol/L (0.4-1.9)
[2023-04-09 22:53] LABS: Mucous, Urine 0 SEEN /hpf (<or=2+); Squamous Epithelial Cells - UA 0 SEEN /hpf (0-5)
--- NOTE | 2023-04-09 22:59 | EX.ED.VIS.UR ---
HPI HPI - URI History of Present Illness Chief Complaint: Shortness of Breath Detail of Chief Complaint: Fever and shortness of breath. Cough of greenish sputum. Informant: patient, spouse/S.O. and family Onset/Context/Timing Onset: Days Context: Gradual Onset Timing: Continuous Current Severity: Moderate Maximum Severity: Moderate Associated Symptoms Associated Symptoms: Positive for Shortness of Breath and Productive Cough; Negative for Nasal Congestion, Nausea, Vomiting or Diarrhea Narrative Narrative: 87-year-old male history of ureteral stent, SI ADH, recent pneumonia in the past 2 months and prostate cancer. Patient is complaining of fever of 102 with a cough and shortness of breath and generalized weakness. Says been feeling ill for the last 3 days. Denies any vomiting or diarrhea. No dysuria. No abdominal pain. Patient states that he was admitted to this facility with pneumonia in February. Prior similar symptoms: Yes Recent Illness/Hospitalization: Yes ROS ROS ED ROS Narrative Fever, cough and shortness of breath. Review of Systems ROS Unobtainable: Denies due to encephalopathy Constitutional Constitutional ED: Reports fever(s); Denies chills Eyes Eyes: Denies blurry vision ENT ENT ED: Denies ear pain Cardiovascular Cardiovascular: Denies chest pain Respiratory/Chest Respiratory/Chest: Reports cough and dyspnea Gastrointestinal Gastrointestinal: Denies abdominal pain Genitourinary Genitourinary ED: Denies dysuria or hematuria Musculoskeletal Musculoskeletal: Denies arthralgias Integumentary Denies abscess Neurologic Neurologic: Denies headache(s) Psychiatric Psychiatric: Denies anxiety Endocrine Endocrinology: Denies cold intolerance Hematologic/Lymphatic Hematologic/Lymphatic: Denies easy bleeding or easy bruising Allergic/Immunologic Allergic/Immunologic ED: Denies mouth swelling or tongue swelling [facility] Medical History Abnormal results of thyroid function studies Alcohol use Arthritis Back pain Cancer Cholelithiasis Chronic bronchitis Closed intertrochanteric fracture of left femur Former smoker Heartburn History of edema History of SIADH Hydronephrosis Hyponatremia Kidney failure Loss of hearing Low iron Prostate cancer Prostatic cancer Shortness of breath on exertion Vitamin D insufficiency Wears glasses Wears partial dentures Home Medications NK 04/09/23 [History Last Taken Unknown] Allergy/AdvReac Type Severity Reaction Status Date / Time No Known Allergies Allergy Verified 04/09/23 21:06 Family History Other Heart disease Surgical History H/O hernia repair History of cystoscopy History of open reduction and internal fixation (ORIF) procedure History of open reduction and internal fixation (ORIF) procedure History of renal stent History of transurethral resection of prostate Hx of cystoscopy Status post appendectomy Social History household members: spouse and other details: 2 st0ry house. He sleeps downstairs in a recliner. 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 Pulse ox is 88% on room air consistent with hypoxia and 92% on 2 L.. He looks ill and weak. H EENT exam dry mucous membranes. Neck nontender JVD. Lungs coarse breath sounds. But I do not appreciate any obvious rales, rhonchi or wheezing. Heart. Tachycardic rate about 105. Abdomen soft and nontender. No peritoneal signs. No distention. Chest wall is nontender. Back nontender. Moving all 4 extremities. Calves are nontender without edema or cords. There is no petechiae or purpura. No rashes. Neurologically is awake alert. Answering questions following commands. Family at bedside. Const Vital Signs: 04/09/23 21:03 04/09/23 21:03 04/09/23 21:14 Temperature 102.8 F H Temperature Source Temporal Pulse Rate 108 H Respiratory Rate Respiratory Effort Short of Breath Respiratory Depth Deep Respiratory Pattern Tachypnea Blood Pressure 155/84 H Blood Pressure Mean 107 Pulse Ox 91 92 Oxygen Delivery Method Room Air Room Air Nasal Cannula Oxygen Flow Rate (L/min) 2 04/09/23 21:14 04/09/23 21:58 04/09/23 21:58 Temperature Temperature Source Pulse Rate 89 Respiratory Rate 22 H 20 H Respiratory Effort Respiratory Depth Respiratory Pattern Blood Pressure 131/92 H Blood Pressure Mean 105 Pulse Ox 88 93 93 Oxygen Delivery Method Room Air Nasal Cannula Nasal Cannula Oxygen Flow Rate (L/min) 2 2 04/09/23 22:11 04/09/23 22:50 04/09/23 23:00 Temperature 99.6 F H 98.6 F 98.6 F Temperature Source Temporal Oral Oral Pulse Rate 88 88 Respiratory Rate 23 H 18 Respiratory Effort Respiratory Depth Respiratory Pattern Blood Pressure 115/59 L 113/57 L Blood Pressure Mean 77 75 Pulse Ox 93 97 Oxygen Delivery Method Nasal Cannula Nasal Cannula Oxygen Flow Rate (L/min) 2 0 Positive well nourished and well developed; Negative for obese, cachectic or contractures General Appearance ED: well developed and NAD; Negative for cachectic, contractures, cyanotic, diaphoretic or pallor Nutritional Appearance: Negative for cachectic or obese HEENT Reports dry mucous membranes HEENT Narrative: . normocephalic and atraumatic Face and Sinus: Negative for sinus tenderness or maxillary instability Mouth ED: Yes dry mucous membranes Mouth: dry mucous membranes Throat: posterior oropharynx normal Eyes PERRL and EOMs intact bilaterally General Eye ED: Negative for pale conjunctiva or scleral icterus Neck no lymphadenopathy, supple, no meningeal signs and no JVD General: Negative for anterior neck swelling or lymphadenopathy Resp normal respiratory effort and clear to auscultation bilaterally Effort and Inspection: Negative for retractions Auscultation: Negative for rales, rhonchi or wheezes Cardio S1 normal heart sound, S2 normal heart sound and no murmurs Rate: tachycardic Rhythm: regular rhythm GI non-tender and non-distended Inspection: Negative for abdominal distention Auscultation: normoactive bowel sounds Palpation: soft; Negative for tender or guarding Back/Spine no CVA tenderness and normal ROM General Back: Negative for CVA tenderness Cervical Spine: Negative for cervical spine tenderness Thoracic Spine / Upper Back: Negative for thoracic spinal tenderness Lumbar Spine / Lower Back: Negative for lumbar spinal tenderness Sacrum: Negative for tenderness Extremity normal to inspection and full ROM General Extremety ED: Negative for cyanosis, tenderness or other findings General Extremity: Negative for cyanosis or other findings Neuro oriented x3 and CN's II-XII intact bilaterally Sensorium / Orientation: alert, oriented to person, oriented to place and oriented to time; Negative for orientation impaired, lethargic or stuporous Motor Exam: strength 5/5 throughout Psych mental status grossly normal Appearance: Negative for other Attitude: No agitated Mood & Affect: Negative for depressed, anxious or tearful Skin General Skin Exam: Negative for jaundice or pallor Lesions: no lesions Rashes: no rashes Trauma: Negative for abrasion MDM MDM MDM Narrative Medical decision making narrative: 87-year-old male hypoxic with fever rule out viral syndrome versus pneumonia versus other etiologies. Treated with IV fluids. Tylenol for fever and a septic workup. Repeat exam at 11:08 PM patient doing better. Fevers broke with Tylenol. He is receiving IV fluids. History & Record Review Discussion w/independent historian: Patient and Family Additional record(s) reviewed:: Prior inpatient record, Prior outpatient record, Prior ED visit and Prior labs Lab Data Attestation: I reviewed the patient's lab results. Lab results narrative: CBC shows a white count of 5. H&H 13.5 and 40. Platelets 210. PT/INR of 14 and 1. PTT of 34. Electrolytes show sodium 135. Gap of 5. Normal BUN of 17 creatinine 0.95. Liver enzymes are unremarkable. Alk phos of 128. Glucose 114. Lactic acid is normal at 1.1. COVID flu and RSV are all negative. Labs: Laboratory Results - last 24 hr 04/09/23 21:15 WBC 5.0 RBC 4.51 L Hgb 13.5 Hct 40.4 MCV 89.6 MCH 29.9 MCHC 33.4 RDW Std Deviation 48.8 H RDW Coeff of Michael 15.0 H Plt Count 210 MPV 8.9 Immature Gran % (Auto) 1.200 H Neut % (Auto) 77.6 H Lymph % (Auto) 10.8 L [place] % (Auto) 9.8 Eos % (Auto) 0.0 Baso % (Auto) 0.6 Absolute Neuts (auto) 3.9 Absolute Lymphs (auto) 0.54 L Nucleated RBC % 0 Differential Comment SEE COMMENT Platelet Estimate ADEQUATE RBC Morphology NORM C+C Anisocytosis RARE PT 14.0 INR 1.1 APTT 34.9 Sodium 135 L Potassium 4.1 Chloride 101 Carbon Dioxide 29.0 Anion Gap 5 BUN 17 Creatinine 0.95 Estim Creat Clear Calc 42.93 Est GFR (MDRD) Af Amer 96 Est GFR (MDRD) Non-Af 80 BUN/Creatinine Ratio 17.9 Glucose 114 H Lactic Acid 1.1 Calcium 8.7 Total Bilirubin 0.80 AST 15 ALT 15 L Alkaline Phosphatase 128 H Total Protein 6.9 Albumin 2.6 L Globulin 4.3 H Albumin/Globulin Ratio 0.6 L Radiography Chest X-Ray - ED: 1 View, Read by ED Physician, Read by Radiologist, Mediastinum, Bony Structures and Chronic Changes Diagnostic Testing: Clinical Impression(s) from Imaging Studies Chest X-Ray 04/09/23 21:20 IMPRESSION: Right-sided basilar density, slightly decreased in the interval is suggestive of residual infiltrate versus atelectasis. Clinical correlation recommended. Electronically Signed: Lucila Bhatti MD at 22:02 EST , Chest x-ray, portable, single view interpreted both by myself and the radiologist. Patient has a right lower lobe density it looks very from a to a prior chest x-ray about a month ago that was called pneumonia but this could also be just chronic changes and/or atelectasis. With his fever and his white count obviously pneumonia is a strong possibility also. Rhythm Strip Rhythm Strip: Sinus Rhythm Rate: 87 Ectopy: None EKG Initial EKG: Attestation: I personally reviewed and interpreted this EKG as follows: Interpretation: No Acute Injury Pattern Comments: Normal sinus rhythm rate 87 no acute signs of DE or ischemia. Discharge Plan Triage Chief Complaint: Shortness of Breath ED Provider: Abhishek Isabel Dx/Rx/DC Orders Prescriptions: No Action NK Primary Care Provider: Johnny Shelton Referrals: Johnny Shelton DO [Primary Care Provider] -
[2023-04-09 23:18] LABS: Color, Urine Yellow (Yellow); Glucose, Dipstick Normal (Normal); Ketone-Dipstick 5 mg/dl (Negative); Leukocyte Esterase-Dipstick 500 /ul (Negative); Nitrite-Dipstick Negative (Negative); Occult Blood-Urine 250 /ul (Negative); Protein-Dipstick 100 mg/dl (Negative); Urine Bilirubin Dipstick Negative (Negative); Urine Clarity Cloudy (Clear); Urine Urobilinogen Normal (Normal)
[2023-04-09 23:31] LABS: Bacteria RARE /hpf (None Seen); Red Blood Cells-Urine 50-100 SEEN /hpf (0-5); White Blood Cells 10-25 SEEN /hpf (0-5)
[2023-04-09] MEDS: Ceftriaxone 1 GM/50 ML BAG IV (23:38)
--- NOTE | 2023-04-09 23:51 | HP.PCM_ITS ---
HPI - General General Date of Admission: 04/09/23 Date of Service: 04/09/23 Chief Complaint: shortness of breath, fever HPI Narrative ELIESER VILLEGAS, is a 87 M with a PMH as outlined who presents via the ED on 04/10/2023 with a complaitn of generalised weakness. HE said he tried to get off the cough at home but he felt too weak. He had associated cough productive of grayish sputum. He said he felt warm but didnt think he had a fever; he however says he was told his temperature went up to 102F. He denied any palpitations, dizziness, nausea, vomiting or any other symptoms. Review of systems is otherwise negative. He has been admitted to our facility in February 2023 for pneumonia also. Vitals in the ED were BP of 110/63, [place] of 81, RR of 19 and temp of 98.9F. He was saturating at 98% on room air. CBC showed hb of 13.5, wbc of 5 and platelets of 210. INR is 1.1. Chemistry showed sodium of 135, potassium of 4.1, bicarb of 29 and Cr of 0.95. Urinalysis showed no evidence of UTI. COVID, flu and RSV tests were negative. CXR showed evidence of right lower lobe infiltrate. He is being admitted to be managed for presumptive community acquired pneumonia. [facility] Medical History Abnormal results of thyroid function studies Alcohol use Arthritis Back pain Cancer Cholelithiasis Chronic bronchitis Closed intertrochanteric fracture of left femur Former smoker Heartburn History of edema History of SIADH Hydronephrosis Hyponatremia Kidney failure Loss of hearing Low iron Prostate cancer Prostatic cancer Shortness of breath on exertion Vitamin D insufficiency Wears glasses Wears partial dentures Home Medications NK 04/09/23 [History Last Taken Unknown] Allergy/AdvReac Type Severity Reaction Status Date / Time No Known Allergies Allergy Verified 04/09/23 21:06 Family History Other Heart disease Surgical History H/O hernia repair History of cystoscopy History of open reduction and internal fixation (ORIF) procedure History of open reduction and internal fixation (ORIF) procedure History of renal stent History of transurethral resection of prostate Hx of cystoscopy Status post appendectomy Social History household members: spouse and other details: 2 st0ry house. He sleeps downstairs in a recliner. 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 Tobacco: How many years used: 67 how long ago did patient quit smoking: He quit in 2019 alcohol intake: current alcohol intake frequency: holidays/special occasions only substance use type: does not use ROS Constitutional Constitutional: Reports fatigue, fever(s), malaise and weakness; Denies anorexia, change in weight or chills Eyes Eyes: Denies change in vision ENT HEENT: Denies dysphagia or headache(s) Cardiovascular Cardiovascular: Denies chest pain, edema, orthopnea, palpitations or paroxysmal nocturnal dyspnea Respiratory/Chest Respiratory/Chest: Denies cough, shortness of breath at rest or shortness of breath with exertion Gastrointestinal Gastrointestinal: Denies abdominal pain, nausea or vomiting Genitourinary Genitourinary: Denies dysuria Musculoskeletal Musculoskeletal: Denies back pain or joint pain Neurologic Neurologic: Denies confusion, dizziness, focal weakness, headache(s) or weakness Psychiatric Psychiatric: Denies anxiety or depression Endocrine Endocrinology: Denies change in body appearance Hematologic/Lymphatic Hematologic/Lymphatic: Denies anemia Vital Signs Vital Signs Vital Signs: 04/09/23 21:03 04/09/23 21:03 04/09/23 21:14 Temperature 102.8 F H Temperature Source Temporal Pulse Rate 108 H Respiratory Rate Respiratory Effort Short of Breath Respiratory Depth Deep Respiratory Pattern Tachypnea Blood Pressure 155/84 H Blood Pressure Mean 107 Pulse Ox 91 92 Oxygen Delivery Method Room Air Room Air Nasal Cannula Oxygen Flow Rate (L/min) 2 04/09/23 21:14 04/09/23 21:58 04/09/23 21:58 Temperature Temperature Source Pulse Rate 89 Respiratory Rate 22 H 20 H Respiratory Effort Respiratory Depth Respiratory Pattern Blood Pressure 131/92 H Blood Pressure Mean 105 Pulse Ox 88 93 93 Oxygen Delivery Method Room Air Nasal Cannula Nasal Cannula Oxygen Flow Rate (L/min) 2 2 04/09/23 22:11 04/09/23 22:50 04/09/23 23:00 Temperature 99.6 F H 98.6 F 98.6 F Temperature Source Temporal Oral Oral Pulse Rate 88 88 Respiratory Rate 23 H 18 Respiratory Effort Respiratory Depth Respiratory Pattern Blood Pressure 115/59 L 113/57 L Blood Pressure Mean 77 75 Pulse Ox 93 97 Oxygen Delivery Method Nasal Cannula Nasal Cannula Oxygen Flow Rate (L/min) 2 0 04/09/23 23:42 Temperature 98.9 F Temperature Source Pulse Rate 81 Respiratory Rate 19 H Respiratory Effort Respiratory Depth Respiratory Pattern Blood Pressure 110/63 Blood Pressure Mean 78 Pulse Ox 98 Oxygen Delivery Method Oxygen Flow Rate (L/min) Weight Weight: 122 lb 2.177 oz Body Mass Index (BMI) 18.0 Physical Exam Const alert, oriented x3 and no apparent distress Constitutional Narrative: frail General Appearance: cooperative and well developed HEENT normocephalic, head/scalp atraumatic, moist oral mucous membranes and oropharynx normal Eyes PERRL and EOMs intact bilaterally Neck no lymphadenopathy, supple and no JVD Lymph Lymphatic: no lymphadenopathy noted and no lymphedema noted Resp Resp Narrative: diminished breath sounds bibasally, few crackles in right lower lung manzo, no wheezing. on 2L of oxygen. Cardio regular rate, regular rhythm, S1 normal heart sound, S2 normal heart sound and no murmurs GI normal to inspection, nondistended, normoactive bowel sounds, soft to palpation and non-tender Extremity normal capillary refill, no clubbing, cyanosis or edema and no calf tenderness General Extremity: no tenderness to palpation of joints or extremities Skin General Skin Exam: no breakdown Neuro CN's II-XII intact bilaterally, no focal motor deficits and no sensory deficits noted Motor Exam: strength 5/5 throughout and general weakness Psych thought process normal, cooperative and affect normal Results Lab / Micro Data 04/09/23 21:15 04/09/23 21:15 Labs: Laboratory Results - last 24 hr 04/09/23 21:15: WBC 5.0, RBC 4.51 L, Hgb 13.5, Hct 40.4, MCV 89.6, MCH 29.9, MCHC 33.4, RDW Std Deviation 48.8 H, RDW Coeff of Michael 15.0 H, Plt Count 210, MPV 8.9, Immature Gran % (Auto) 1.200 H, Neut % (Auto) 77.6 H, Lymph % (Auto) 10.8 L , [place] % (Auto) 9.8, Eos % (Auto) 0.0, Baso % (Auto) 0.6, Absolute Neuts (auto) 3.9, Absolute Lymphs (auto) 0.54 L, Nucleated RBC % 0, Differential Comment SEE COMMENT, Platelet Estimate ADEQUATE, RBC Morphology NORM C+C, Anisocytosis RARE, PT 14.0, INR 1.1, APTT 34.9, Sodium 135 L, Potassium 4.1, Chloride 101, Carbon Dioxide 29.0, Anion Gap 5, BUN 17, Creatinine 0.95, Estim Creat Clear Calc 4 2.93, Est GFR (MDRD) Af Amer 96, Est GFR (MDRD) Non-Af 80, BUN/Creatinine Ratio 17.9, Glucose 114 H, Lactic Acid 1.1, Calcium 8.7, Total Bilirubin 0.80, AST 15, ALT 15 L, Alkaline Phosphatase 128 H, Total Protein 6.9, Albumin 2.6 L, Globulin 4.3 H, Albumin/Globulin Ratio 0.6 L 04/09/23 22:49: Urine Color Yellow, Urine Clarity Cloudy, Urine pH 6.0, Ur Specific [place] 1.020, Urine Protein 100 H, Urine Glucose (UA) Normal, Urine Ketones 5 H, Urine Occult Blood 250 H, Urine Nitrite Negative, Urine Bilirubin Negative, Urine Urobilinogen Normal, Ur Leukocyte Esterase 500 H, Urine RBC 50- 100 SEEN, Urine WBC 10-25 SEEN, Ur Squamous Epith Cells 0 SEEN, Urine Bacteria RARE, Urine Mucus 0 SEEN Micro: Microbiology 04/09/23 21:20 Mucosa - Nasopharyngeal SARS-CoV-2, Influenza & RSV (PCR) - Final Rhythm Strip Rhythm Strip: Sinus Rhythm Rate: 87 Ectopy: None Imagaing Radiology Impression Chest X-Ray 04/09/23 21:20 IMPRESSION: Right-sided basilar density, slightly decreased in the interval is suggestive of residual infiltrate versus atelectasis. Clinical correlation recommended. Electronically Signed: Lucila Bhatti MD at 22:02 EST , Assessment & Plan Assessment/Plan (1) Pneumonia: PLAN: Plan #Community acquired pneumonia * admit to med surg * admitted with a complaitn of weakness and found to have right sided pneumonia and a fever * COVID, flu and RSV negative * CXR showed right lower lobe infiltrate * check urine for strep and legionella as well as sputum culture. * get blood culture in light of fever of 102 * start on IV ceftriaxone and azithromycin * hydrate very gently with IVF NS @ 125cc/hr x 2 bags * breathing treatment with bronchodilators * titrate oxygen as needed to maintain sats >90% * * #History of prostate cancer: stable. #DVT prophylaxis: lovenox Code status: full code * Patient counseled extensively about different types of CODE STATUS including full code, DNR CCA and DNR CCA. Patient elects to be full code; patient says he feels he is still in very good health and wants to have CPR and be intubated for a short period if needed. Total [id number] time 17 minutes. * Total time spent on evaluation and management of patient, reviewing chart, discussing plan with patient, discussion with nursing and ancillary staff as well as documentation: 77 mins Charges/Coding Visit Charges Inpatient E&M: 70896 Init Hosp L3 Procedures Hospitalists Procedures: 71532 Advncd Care Plan 30 Min
[2023-04-10] VITALS (7 sets, daily range): BP systolic 107–132; BP diastolic 54–67; PULSE 68–88; RESP 16–20; TEMP 36.6–37.2; O2SAT 93–99; BMI 17.4
[2023-04-10] MEDS: Azithromycin 500 MG in Dextrose 5%-Water (250mL Bag) 250 ML 250 MG IV ×2 (00:30→22:08)
--- OUTSIDE RECORDS SUMMARY | 2023-04-10 00:30 | XMS RPT_ITS | CCD ---
Author Name Unknown Address [address] [place] [address] Organization [facility] Care Team Providers Care Software Security Architect Name Role Phone Unavailable Primary Care Provider [...] 97.9 [degF] Madison Perez DPM Work Phone: [facility] 02-28-2021 15:02-0500 Diastolic blood pressure 74 mm[Hg] Madison Perez DPM Work Phone: [facility] 02-28-2021 15:02-0500 Heart rate 84 /min Madison Manzanomerman DPM Work Phone: [facility] 02-28-2021 15:02-0500 Systolic blood pressure 133 mm[Hg] Madisontal ManzanoPerez DPM Work Phone: [facility] 11-29-2020 15:13-0400 Body height 177.8 cm Madisontal ManzanoPerez DPM Work Phone: [facility] 11-29-2020 15:13-0400 Body mass index (BMI) [Ratio] 19.37 kg/m2 Madisontal ManzanoPerez DPM Work Phone: [facility] 11-29-2020 15:13-0400 Body temperature 97.81 [degF] Madison Manzanomerman DPM Work Phone: [facility] 11-29-2020 15:13-0400 Body weight 61.24 kg Madison Manzanomerman DPM Work Phone: [facility] 11-29-2020 15:13-0400 Diastolic blood pressure 57 mm[Hg] Madison Manzanomerman DPM Work Phone: [facility] 11-29-2020 15:13-0400 Heart rate 83 /min Madison Manzanomerman DPM Work Phone: [facility] 11-29-2020 15:13-0400 Systolic blood pressure 124 mm[Hg] Madisontal ManzanoPerez DPM Work Phone: [facility] 06-28-2020 14:59-0400 Body height 177.8 cm Madisontal ManzanoPerez DPM Work Phone: [facility] 06-28-2020 14:59-0400 Body mass index (BMI) [Ratio] 19.37 kg/m2 Madisontal ManzanoPerez DPM Work Phone: [facility] 06-28-2020 14:59-0400 Body weight 61.24 kg Madisontal ManzanoPerez DPM Work Phone: [facility] 06-28-2020 14:59-0400 Diastolic blood pressure 72 mm[Hg] Madison Perez DPM Work Phone: [facility] 06-28-2020 14:59-0400 Systolic blood pressure 137 mm[Hg] Madison Perez DPM Work Phone: [facility] Encounters Encounter Date Encounter Type Care Provider Facility Start: 05-01-2021 Telephone encounter Hakeem Frank MD [facility] Plan of Treatment Date Care Activity Detail Author Start: 03-14-2029 Tetanus vaccination Tetanus: Every 10yrs [facility] Start: 03-14-2029 Urine microalbumin profile DTAP,TDAP,TD (2 - Td or Tdap) [facility] Start: 05-09-2022 DIABETES SCREEN DIABETES SCREEN [facility] Start: 09-27-2021 COVID-19 VACCINE (3 - Booster for Pfizer series) COVID-19 VACCINE (3 - Booster for Pfizer series) [facility] Start: 03-30-2021 ADVANCE DIRECTIVE DISCUSSION ADVANCE DIRECTIVE DISCUSSION [facility] Start: 02-28-2021 End: 02-28-2021 Patient encounter procedure 02/28/2021 Office Visit Podiatry Madison Perez DPM [address] [place] [address] [facility] Start: 11-28-2020 Influenza vaccination Sequential Influenza Vaccine (#1) [facility] Start: 10-11-2020 End: 10-11-2020 Patient encounter procedure 10/11/2020 Office Visit Podiatry Madison Perez DPM [address] [place] [address] [phone] [facility] Start: 01-31-2015 Pneumococcal Vaccine: Age 65+ (2 of 4 - PPSV23) Pneumococcal Vaccine: Age 65+ (2 of 4 - PPSV23) [facility] Start: 11-05-2000 Fall risk assessment Falls Risk Assessment [facility] Start: 11-05-1985 Administration of herpes zoster vaccine Zoster Vaccines (1 of 2) [facility] Start: 11-05-1954 SHINGRIX VACCINE (1 of 2) SHINGRIX VACCINE (1 of 2) [facility] Start: 1947 COVID-19 Vaccine (1) COVID-19 Vaccine (1) [facility] Start: 1947 Depression screening using PHQ-9 (Patient Health Questionnaire 9) score [facility] Start: 11-05-1938 History and physical examination, annual for health maintenance Wellness Visit [facility] Start: 1935 Tetanus vaccination Tetanus: Every 10yrs [facility] Immunizations Immunization Date Immunization Notes Care Provider Fa shanique 04-30-2021 COVID-19 vaccine, ag e 12+ yr (PFIZER-BIONTECH - PURPLE TOP) Hakeem Frank III, MD [facility] 04-09-2021 COVID-19 vaccine, ag e 12+ yr (PFIZER-BIONTECH - PURPLE TOP) Hakeem Frank III, MD [facility] 04-09-2021 influenza, high dose seasonal, preservative-free Hakeem Frank III, MD [facility] 02-06-2020 influenza, high dose seasonal, preservative-free Madison Perez DPM Work Phone: [facility] 01-19-2020 influenza, high dose seasonal, preservative-free Hakeem Frank III, MD [facility] 03-14-2019 influenza, high dose seasonal, preservative-free Hakeem Frank III, MD [facility] 03-14-2019 tetanus toxoid, redu mila diphtheria toxoid, and acellular pertussis vaccine, adsorbed Hakeem Frank III, MD [facility] 01-07-2018 influenza, high dose olivier, preservative-free Hakeem Frank III, MD [facility] 05-18-2017 influenza, high dose seasonal, preservative-free Hakeem Frank III, MD [facility] 05-15-2017 pneumococcal polysaccharide vaccine, 23 valent Hakeem Frank III, MD [facility] 12-06-2014 pneumococcal conjuga te vaccine, 13 valent Madison Perez DPM Work Phone: [facility] 09-20-2014 pneumococcal conjuga te vaccine, 13 valent Hakeem Frank III, MD [facility] Payers Date Payer Category Payer Unknown AARP A[employer] [id number] 2020-Present [phone] [address] [place] [address] [id number] 2020 Unknown [id number] 2017 Private Health Insurance [facility] AARP SUPPLEMENT [id number] 2017-Present [phone] [address] [place] [address] Indemnity [id number] 2000 Medicare [id number] 2000 Medicare MEDICARE MEDICAR E PART A & B [id number] 2000-Present [phone] CGS [id number] [place] [address] [place] [address] [id number] 2000 Medicare [id number] 1935 Unknown [id number] 1935 Unknown [id number] Social History Date Type Detail Facility Start: 05-26-2017 End: 09-18-2020 Tobacco smoking status NHIS Former smoker [facility] Start: 01-26-2020 End: 09-18-2020 Alcohol intake Current drinker of alcohol (finding) [facility] Start: 1935 Sex Assigned At Not on file O hiPAeal Start: 05-26-2017 End: 09-18-2020 Tobacco use and exposure Smokeless tobacco non-user [facility] Exposure to SARS-CoV -2 (event) Not sure [facility] Start: 03-30-1954 End: 05-12-2017 History of tobacco use Current smoker [facility] Start: 05-26-2017 Cigarettes smoked cu rrent (pack per day) - Reported 0.9 [facility] Clinical Note 04-01-2021 Note Date & Type Note Facility 04-01-2021 Note Patient Outreach (LINDA STEVEN) ELIESER VILELGAS ([id number]) 1935 M BLD Date Time Provider Department [...] for Outreach Attribution: Provider Off-boarding Payer: Payor: [facility] / Plan: [facility] SUPPLEMENT / Product Type: Indemnity / Care Gap Reviewed:: Annual Wellness visit Flu vaccine Reminder: Reminder note to check Health Maintenance for items below Health Maintenance items due: COVID-19 VACCINE(1) Never done SHINGRIX VACCINE(1 of 2) Never done ADVANCE DIRECTIVE DISCUSSION Never done INFLUENZA(1) due on 11/28/2020 Advanced Directives Completed: Have you ever planned for future healthcare decisions with a power of divorce attorney, living will, or advance directives? Referrals: [...] Encounter Status:Closed by MARIFER CALLES on 04/01/21 [facility] Progress note 04-01-2021 Note Date & Type Note Facility 04-01-2021 Note HNO ID: [id number] Author: Marifer Calles MA Service: ? Author Type: Consumer Attorney Type: Progress Notes Filed: 04/01/2021 10:44 AM [...] for Outreach Attribution: Provider Off-boarding Payer: Payor: [facility] / Plan: [facility] AAR SUPPLEMENT / Product Type: Indemnity / Care Gap Reviewed:: Annual Wellness visit Flu vaccine Reminder: Reminder note to check Health Maintenance for items below Health Maintenance items due: COVID-19 VACCINE(1) Never done SHINGRIX VACCINE(1 of 2) Never done ADVANCE DIRECTIVE DISCUSSION Never done INFLUENZA(1) due on 11/28/2020 Advanced Directives Completed: Have you ever planned for future healthcare decisions with a power of divorce attorney, living will, or advance directives? Referrals: Message Sent to Practice: Navigation Signature: Marifer Calles MA April 01, 2021 10:43 AM [facility] History of Present illness Narrative 02-28-2021 Madison Perez DPM - 02/28/2021 4:23 PM EST Note Date & Type Note Facility 02-28-2021 History of Presen t illness Narrative I attempted to see patient Who was in a hurry to leave after 38 minutes. Patient refused care. documented in this encounter [facility] History of Present illness Narrative 11-29-2020 Madison [...] RTC 3 months. 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 Advance Directives and Livin g Will 09/08/2020 12:00 AM Documents on File Type Date 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 Advance Directives and Living Will Summary Purpose Family History No Family History Records FoundNo Family History Records Found Additional Source Comments Reason for Visit (unrecogniz ed section and content) Reason Comments Patient Update Care Teams (unrecognized sec tion and content) Software Security Architect Relationship Specialty Start Date End Date No, Physician [facility] PCP - General 11/29/20 Software Security Architect Relationship Specialty Start Date End Date Hakeem Frank III, MD PCP - General Family Practice 09/15/14 (unrecognized sect ion and content) No Status Records FoundNo Status Records Found INFORMATION SOURCE (unrecogn ized section and content) DATE CREATED AUTHOR AUTHOR'S ORGANIZ ATION 09/04/2021 [facility] Source Comments (unrecognize d section and content) In the event this informatio n is protected by the Federal Confidentiality of Alcohol and Drug Abuse Patient Records regulations: The Federal rules restrict any use of the information to criminally investigate or prosecute any alcohol or drug abuse patient.[facility] FOR RECORDS PERTAINING TO PATIENTS WHO [...] BE BASED ON THE PRIMARY CLINICAL RECORDS. [facility]. provides no warranty or guarantee of the accuracy or completeness of information in this document.
[2023-04-10] MEDS: 0.9% Normal Saline (1000mL) 1,000 ML 125 ML IV ×2 (03:14→10:09)
[2023-04-10] MEDS: 0.9% Saline Lock 10 ML Syringe IV (03:17)
[2023-04-10 05:51] LABS: Absolute Lymphocyte Count 0.49 X10^3/uL (0.83-4.51); Absolute Neutrophil Count 3.1 X10^3/uL (2.0-7.7); Basophil# 0.01 X10^3/uL; Basophil% 0.2 % (0-1); Eosinophil# 0.03 X10^3/uL; Eosinophils% 0.7 % (0-5); Hematocrit 32.9 % (40-54); Hemoglobin 10.8 g/dL (13.0-16.5); Lymphocyte # 0.49 X10^3/ul (0.83-4.51); Mean Corp Hgb Conc 32.8 g/dL (32-36); Mean Corpuscular Hgb 30.2 pg (27.0-32.0); Mean Corpuscular Volume 91.9 fL (80-94); Mean Platelet Vol. 9.2 fl (6.2-12.0); Monocyte# 0.47 X10^3/uL; Monocyte% 11.5 % (0-10); NRBC Flagged by Analyzer 0 % (0-5); Neutrophil # 3.05 X10^3/uL (2.7-7.7); Neutrophil % 74.9 % (47-70); POSITIVE DIFFERENTIAL YES; Platelet Count 171 K/mm3 (150-450); RBC Distribution Width CV 14.9 % (11.6-14.6); RBC Distribution Width SD 50.4 fl (35.1-43.9); Red Blood Count 3.58 M/mm3 (4.6-6.2); White Blood Count 4.1 K/mm3 (4.4-11.0)
[2023-04-10 06:30] LABS: Differential Indicated SCAN CRITERIA MET
[2023-04-10 06:34] LABS: Differential Comment SCANNED
[2023-04-10 06:47] LABS: Anion Gap 4 (5-15); BUN 15 mg/dL (7-18); BUN/Creat Ratio 18.5 RATIO (10-20); Calcium,Total 7.5 mg/dL (8.5-10.1); Chloride 104 mmol/L (98-107); Creatinine, Serum 0.81 mg/dL (0.70-1.30); EST Glomerular Filtration Rate 95 mL/min (>60); Est Glom Filt Rate - Afr Amer 116 mL/min (>60); Estimated Creatinine Clearance 49.96 ml/min; Glucose 131 mg/dL (74-106); Sodium Level 135 mmol/L (136-145)
--- NOTE | 2023-04-10 07:41 | PCM.PN.HOSP ---
Reason for Visit Reason for Visit: Diagnoses Pneumonia, unspecified organism (04/09/23) Objective Data Objective Data Vital Signs: Vital Signs Temp Pulse Resp BP Pulse Ox O2 Del Method O2 Flow Rate 97.9 F 73 16 119/61 93 Room Air 2 04/10/23 06:35 04/10/23 06:35 04/10/23 06:35 04/10/23 06:35 04/10/23 06:35 04/10/23 06:35 04/10/23 02:15 Oxygen Flow Rate (L/min) 2 Oxygen Delivery Method Room Air Weight: 121 lb 3.2 oz Body Mass Index (BMI) 17.4 Intake & Output: Intake and Output for Last 24 Hours 04/08/23 04/09/23 04/10/23 23:59 23:59 23:59 Intake Total 1000 / 1000 425 / 425 Output Total 150 / 150 Balance 1000 / 1000 275 / 275 Lab / Micro Data 04/10/23 05:43 04/10/23 05:43 Labs: Laboratory Results - last 24 hr 04/09/23 21:15: WBC 5.0, RBC 4.51 L, Hgb 13.5, Hct 40.4, MCV 89.6, MCH 29.9, MCHC 33.4, RDW Std Deviation 48.8 H, RDW Coeff of Michael 15.0 H, Plt Count 210, MPV 8.9, Immature Gran % (Auto) 1.200 H, Neut % (Auto) 77.6 H, Lymph % (Auto) 10.8 L, Glynn % (Auto) 9.8, Eos % (Auto) 0.0, Baso % (Auto) 0.6, Absolute Neuts (auto) 3.9, Absolute Lymphs (auto) 0.54 L, Nucleated RBC % 0, Differential Comment SEE COMMENT, Platelet Estimate ADEQUATE, RBC Morphology NORM C+C, Anisocytosis RARE, PT 14.0, INR 1.1, APTT 34.9, Sodium 135 L, Potassium 4.1, Chloride 101, Carbon Dioxide 29.0, Anion Gap 5, BUN 17, Creatinine 0.95, Estim Creat Clear Calc 42.93, Est GFR (MDRD) Af Amer 96, Est GFR (MDRD) Non-Af 80, BUN/Creatinine Ratio 17.9, Glucose 114 H, Lactic Acid 1.1, Calcium 8.7, Total Bilirubin 0.80, AST 15, ALT 15 L, Alkaline Phosphatase 128 H, Total Protein 6.9, Albumin 2.6 L, Globulin 4.3 H, Albumin/Globulin Ratio 0.6 L 04/09/23 22:49: Urine Color Yellow, Urine Clarity Cloudy, Urine pH 6.0, Ur Specific [place] 1.020, Urine Protein 100 H, Urine Glucose (UA) Normal, Urine Ketones 5 H, Urine Occult Blood 250 H, Urine Nitrite Negative, Urine Bilirubin Negative, Urine Urobilinogen Normal, Ur Leukocyte Esterase 500 H, Urine RBC 50-100 SEEN, Urine WBC 10-25 SEEN, Ur Squamous Epith Cells 0 SEEN, Urine Bacteria RARE, Urine Mucus 0 SEEN 04/10/23 05:43: WBC 4.1 L, RBC 3.58 L, Hgb 10.8 L, Hct 32.9 L, MCV 91.9, MCH 30.2, MCHC 32.8, RDW Std Deviation 50.4 H, RDW Coeff of Michael 14.9 H, Plt Count 171, MPV 9.2, Immature Gran % (Auto) 0.700, Neut % (Auto) 74.9 H, Lymph % (Auto) 12.0 L, Glynn % (Auto) 11.5 H, Eos % (Auto) 0.7, Baso % (Auto) 0.2, Absolute Neuts (auto) 3.1, Absolute Lymphs (auto) 0.49 L, Nucleated RBC % 0, Differential Comment SCANNED, Diff Path Review July, Sodium 135 L, Potassium 4.0, Chloride 104, Carbon Dioxide 27.0, Anion Gap 4 L, BUN 15, Creatinine 0.81, Estim Creat Clear Calc 49.96, Est GFR (MDRD) Af Amer 116, Est GFR (MDRD) Non-Af 95, BUN/Creatinine Ratio 18.5, Glucose 131 H, Calcium 7.5 L Micro: Microbiology 04/09/23 22:49 Urine Catheter - Catheter Legionella Antigen - Final 04/09/23 22:49 Urine Catheter - Catheter Streptococcus pneumoniae Antigen (M - Final 04/09/23 21:20 Mucosa - Nasopharyngeal SARS-CoV-2, Influenza & RSV (PCR) - Final Radiography Diagnostic Testing: Radiology Impression Chest X-Ray 04/09/23 21:20 IMPRESSION: Right-sided basilar density, slightly decreased in the interval is suggestive of residual infiltrate versus atelectasis. Clinical correlation recommended. Electronically Signed: Lucila Bhatti MD at 22:02 EST , Rhythm Strip Rhythm Strip: Sinus Rhythm Rate: 87 Ectopy: None Physical Exam Narrative Seen and examined. Patient states he has shortness of breath for more than 10 years along with cough and sputum production. For last1 week he is more short of breath, dyspnea at rest. Denies any acute change in his sputum production which is grayish in coloration. He history is vague and he states that he is always short of breath. Physical exam General: Alert, Oriented x3, Cooperative, BMI 17.40 kg/m? HEENT: Atraumatic, PERRLA, EOMI, Normocephalic Oral: No Gingival or Mucosal Lesions/ Ulcerations Neck: Supple, No JVD, Negative Carotid Bruits Lungs: Air entry diminished in bilateral lung bases. Dyspnea on mild exertion. Coarse crepitations worse on the right lung base. Cardiovascular: Regular rate, Regular Rhythm, Normal S1, Normal S2, No murmurs Abdomen: Bowel Sounds Present, Soft, Non Tender, Non-Distended : No renal angle tenderness. No suprapubic tenderness. Extremities: No edema, Capillary Refill Less than 3 Seconds Skin: No rashes, No breakdown Musculoskeletal: No Tenderness to Palpation of Joints or Extremities. Mild decreased muscle bulk of thighs and calf, mild chronic malnutrition Neurological: Cranial nerves II-XII grossly intact, DTR 2+/4. No acute focal neurological deficit. Psych/Mental Status: Flat affect. Assessment & Plan Assessment/Plan (1) Pneumonia: PLAN: Plan #Community acquired pneumonia admit to med surg admitted with a complaitn of weakness and found to have right sided pneumonia and a fever COVID, flu and RSV negative Urinary antigens are negative for Legionella and Streptococcus. Patient is dehydrated and continue IV fluid. On empiric IV ceftriaxone and azithromycin. Chest x-ray individually reviewed and shows right lower lobe infiltrate consistent with pneumonia. Aggressive bronchopulmonary hygiene with incentive spirometry and PEP. Mild chronic malnutrition: Patient has loss of subcutaneous fat. Decreased bulk of muscles of extremities. BMI 17.4 kg/m?. #History of prostate cancer: stable. #DVT prophylaxis: lovenox Code status: full code Patient counseled extensively about different types of CODE STATUS including full code, DNR CCA and DNR CCA. Patient elects to be full code; patient says he feels he is still in very good health and wants to have CPR and be intubated for a short period if needed. Charges/Coding Visit Charges Inpatient E&M: 55190 Subs Hosp L2
[2023-04-10] MEDS: Enoxaparin 40 MG/0.4 ML Syringe SC (08:58)
--- NOTE | 2023-04-10 10:11 | WOUNDNOTE ---
wound photo: left inner buttock
--- NOTE | 2023-04-10 10:15 | CASEMGMT ---
RN CM Assessment: Face to Face with pt for initial transition planning/care coordination assessment. RN CM introduced self and role at [facility], pt voices understanding and consents to assessment. Pt is A&O x4 and answers all questions. Pt sitting up on room air with EVS in room. Pt states this RN CM asks trivial questions just to earn your keep . Pt asked RN CM to leave room, explained further the RN CM role and pt reluctantly agreed to assessment although states he doesn't need anything nor does he want anything at dc. Care providers, pharmacy, and demographics verified/updated. Admitting Dx:pneumonia PCP:Cat Specialists:jacki Hollingsworth Preferred Pharmacy:[facility] Insurance:[facility], AARP Prescription Benefit: no and pt states cost of meds is not an issue for him LNOK:Mulu Tenorio, ; Aileen Milagros, dtr Living Arrangements: Pt lives with in a 2 story home with FFSU and 3 steps to enter the home with a rail on the back entrance. Pt reports he is I in ADL's and denies concerns at home. Transportation: Pt drives self and denies concerns with transportation. DME:grab bar in the bathroom, elevated toilet seat, cane, FWW- pt states only uses the cane HHC/SNF:Pt states he had HHC in the past but he did not feel it was important and cancelled it. It was through [facility]. Denies SNF stays. Pt states no concerns with going home at time of dc. Pt states no further concerns/needs. CM to follow. Therapy evals pending. Advised pt to ask CM if any further question/concerns/needs arise, voices understanding. Pt Goal:Home Plan:Home, follow therapy
[2023-04-10] MEDS: Ensure Plus High Protein 120 ML LIQUID PO ×3 (13:57→20:45)
[2023-04-10] MEDS: Ceftriaxone 1 GM/50 ML BAG IV (20:41)
[2023-04-10] MEDS: Acetaminophen 325 MG Tablet 650 MG PO (21:02)
[2023-04-10] MEDS: Menthol/Lanolin/Calamine/Znox 113 GM Tube 1 APPLIC TOPICAL (22:34)
[2023-04-11 05:19] VITALS: BP 122/79; PULSE 73; RESP 18; TEMP 37.1; O2SAT 94
[2023-04-11] MEDS: Menthol/Lanolin/Calamine/Znox 113 GM Tube 1 APPLIC TOPICAL ×3 (05:23→20:31)
[2023-04-11 08:19] VITALS: O2SAT 96
[2023-04-11] MEDS: Enoxaparin 40 MG/0.4 ML Syringe SC (09:45)
[2023-04-11] MEDS: Ensure Plus High Protein 120 ML LIQUID PO ×2 (09:45→20:33)
[2023-04-11 10:00] VITALS: BP 126/57; PULSE 76; RESP 18; TEMP 36.9; O2SAT 93
[2023-04-11 14:50] VITALS: BP 112/87; PULSE 86; RESP 18; TEMP 37.2; O2SAT 97
--- NOTE | 2023-04-11 15:07 | PN.HOSP_ITS ---
Reason for Visit Reason for Visit: Diagnoses Pneumonia, unspecified organism (04/09/23) Objective Data Objective Data Vital Signs: Vital Signs Temp Pulse Resp BP Pulse Ox O2 Del Method O2 Flow Rate 98.9 F 86 18 112/87 H 97 Room Air 2 04/11/23 14:50 04/11/23 14:50 04/11/23 14:50 04/11/23 14:50 04/11/23 14:50 04/11/23 14:50 04/10/23 02:15 Oxygen Flow Rate (L/min) 2 Oxygen Delivery Method Room Air Weight: 121 lb 3.2 oz Body Mass Index (BMI) 17.4 Intake & Output: Intake and Output for Last 24 Hours 04/09/23 04/10/23 04/11/23 23:59 23:59 23:59 Intake Total 1000 / 1000 2339.58 / 2339.58 555 / 555 Output Total 150 / 150 350 / 350 Balance 1000 / 1000 2189.58 / 2189.58 205 / 205 Lab / Micro Data 04/10/23 05:43 04/10/23 05:43 Micro: Microbiology 04/10/23 10:15 Sputum, Expectorated/Coughed Gram Stain - Final 04/09/23 22:49 Urine Catheter - Catheter Legionella Antigen - Final 04/09/23 22:49 Urine Catheter - Catheter Streptococcus pneumoniae Antigen (M - Final 04/09/23 21:20 Mucosa - Nasopharyngeal SARS-CoV-2, Influenza & RSV (PCR) - Final Rhythm Strip Rhythm Strip: Sinus Rhythm Rate: 87 Ectopy: None Physical Exam Narrative Seen and examined. Shortness of breath is better. Dyspnea is also good. Patient does not look restless. Prelim sputum culture growing GPC and rare GNR. No fever Physical exam General: Alert, Oriented x3, Cooperative, BMI 17.40 kg/m? HEENT: Atraumatic, PERRLA, EOMI, Normocephalic Oral: No Gingival or Mucosal Lesions/ Ulcerations Neck: Supple, No JVD, Negative Carotid Bruits Lungs: Air entry diminished in bilateral lung bases. Mild dyspnea on exertion. Coarse crepitations worse on the right lung base. Cardiovascular: Regular rate, Regular Rhythm, Normal S1, Normal S2, No murmurs Abdomen: Bowel Sounds Present, Soft, Non Tender, Non-Distended : No renal angle tenderness. No suprapubic tenderness. Extremities: No edema, Capillary Refill Less than 3 Seconds Skin: No rashes, No breakdown Musculoskeletal: No Tenderness to Palpation of Joints or Extremities. Mild decreased muscle bulk of thighs and calf, mild chronic malnutrition Neurological: Cranial nerves II-XII grossly intact, DTR 2+/4. No acute focal neurological deficit. Psych/Mental Status: Flat affect. Assessment & Plan Assessment/Plan (1) Pneumonia: PLAN: Plan This is a 87-year-old gentleman has shortness of breath for more than 10 years along with cough and sputum production. For last1 week, his symptoms got worse with short of breath, dyspnea at rest. Denies any acute change in his sputum production which is grayish in coloration. #Community acquired pneumonia * admit to med surg * admitted with a complaitn of weakness and found to have right sided pneumonia and a fever * COVID, flu and RSV negative Urinary antigens are negative for Legionella and Streptococcus. Patient is dehydrated and continue IV fluid. On empiric IV ceftriaxone and azithromycin. Chest x-ray individually reviewed and shows right lower lobe infiltrate consistent with pneumonia. Aggressive bronchopulmonary hygiene with incentive spirometry and PEP. 04/11: As per prelim sputum culture grows 2+ GPC and rare GNR. Full culture to follow. Continue antibiotics. Mild chronic malnutrition: Patient has loss of subcutaneous fat. Decreased bulk of muscles of extremities. BMI 17.4 kg/m?. [employer] consult. #History of prostate cancer: stable. #DVT prophylaxis: lovenox Code status: full code * Patient counseled extensively about different types of CODE STATUS including full code, DNR CCA and DNR CCA. Patient elects to be full code; patient says he feels he is still in very good health and wants to have CPR and be intubated for a short period if needed. Charges/Coding Visit Charges Inpatient E&M: 81075 Subs Hosp L2
[2023-04-11] MEDS: Ceftriaxone 1 GM/50 ML BAG IV (20:30)
[2023-04-11] MEDS: 0.9% Saline Lock 10 ML Syringe IV (20:33)
[2023-04-11 21:04] VITALS: BP 110/69; PULSE 84; RESP 17; TEMP 37.3; O2SAT 96
[2023-04-11] MEDS: Azithromycin 500 MG in Dextrose 5%-Water (250mL Bag) 250 ML 250 MG IV (22:17)
[2023-04-12 03:00] VITALS: BP 131/75; PULSE 81; RESP 16; TEMP 36.8; O2SAT 95
[2023-04-12] MEDS: Menthol/Lanolin/Calamine/Znox 113 GM Tube 1 APPLIC TOPICAL ×3 (03:07→21:26)
[2023-04-12] MEDS: Ensure Plus High Protein 120 ML LIQUID PO ×4 (08:28→21:26)
[2023-04-12] MEDS: Enoxaparin 40 MG/0.4 ML Syringe SC (08:28)
[2023-04-12 08:49] VITALS: BP 124/78; PULSE 85; RESP 16; TEMP 36.5; O2SAT 97
[2023-04-12 09:01] VITALS: PULSE 90
[2023-04-12 11:36] VITALS: BP 113/59; PULSE 82; RESP 16; TEMP 36.9; O2SAT 96
--- NOTE | 2023-04-12 12:14 | PN.HOSP_ITS ---
Reason for Visit Reason for Visit: Diagnoses Pneumonia, unspecified organism (04/09/23) Objective Data Objective Data Vital Signs: Vital Signs Temp Pulse Resp BP Pulse Ox O2 Del Method O2 Flow Rate 98.4 F 82 16 113/59 L 96 Room Air 2 04/12/23 11:36 04/12/23 11:36 04/12/23 11:36 04/12/23 11:36 04/12/23 11:36 04/12/23 11:36 04/10/23 02:15 Oxygen Flow Rate (L/min) 2 Oxygen Delivery Method Room Air Weight: 121 lb 3.2 oz Body Mass Index (BMI) 17.4 Intake & Output: Intake and Output for Last 24 Hours 04/10/23 04/11/23 04/12/23 23:59 23:59 23:59 Intake Total 2339.58 / 2339.58 1100 / 1100 350 / 350 Output Total 150 / 150 350 / 350 200 / 200 Balance 2189.58 / 2189.58 750 / 750 150 / 150 Lab / Micro Data 04/10/23 05:43 04/10/23 05:43 Micro: Microbiology 04/10/23 10:15 Sputum, Expectorated/Coughed Gram Stain - Final 04/10/23 10:15 Sputum, Expectorated/Coughed Respiratory Culture - Final Beta streptococcus 04/09/23 22:49 Urine, Clean Catch Urine Culture - Final Corynebacterium amycolatum 04/09/23 22:49 Urine Catheter - Catheter Legionella Antigen - Final 04/09/23 22:49 Urine Catheter - Catheter Streptococcus pneumoniae Antigen (M - Final 04/09/23 21:20 Mucosa - Nasopharyngeal SARS-CoV-2, Influenza & RSV (PCR) - Final Rhythm Strip Rhythm Strip: Sinus Rhythm Rate: 87 Ectopy: None Physical Exam Narrative Seen and examined. Shortness of breath is better. Dyspnea is better but still gets short of breath on mild exertion going to bathroom. Patient does not look restless. Prelim sputum culture growing GPC and rare GNR. No fever patient is coughing up phlegm. Physical exam General: Alert, Oriented x3, Cooperative, BMI 17.40 kg/m? HEENT: Atraumatic, PERRLA, EOMI, Normocephalic Oral: No Gingival or Mucosal Lesions/ Ulcerations Neck: Supple, No JVD, Negative Carotid Bruits Lungs: Air entry diminished in bilateral lung bases. Mild dyspnea on exertion. Coarse crepitations crepitation on right lung base. Cardiovascular: Regular rate, Regular Rhythm, Normal S1, Normal S2, No murmurs Abdomen: Bowel Sounds Present, Soft, Non Tender, Non-Distended : No renal angle tenderness. No suprapubic tenderness. Extremities: No edema, Capillary Refill Less than 3 Seconds Skin: No rashes, No breakdown Musculoskeletal: No Tenderness to Palpation of Joints or Extremities. Mild decreased muscle bulk of thighs and calf, mild chronic malnutrition Neurological: Cranial nerves II-XII grossly intact, DTR 2+/4. No acute focal neurological deficit. Psych/Mental Status: Flat affect. Assessment & Plan Assessment/Plan (1) Pneumonia: PLAN: Plan This is a 87-year-old gentleman has shortness of breath for more than 10 years along with cough and sputum production. For last1 week, his symptoms got worse with short of breath, dyspnea at rest. Denies any acute change in his sputum production which is grayish in coloration. #Community acquired pneumonia * admit to med surg * admitted with a complaitn of weakness and found to have right sided pneumonia and a fever * COVID, flu and RSV negative Urinary antigens are negative for Legionella and Streptococcus. Patient is dehydrated and continue IV fluid. On empiric IV ceftriaxone and azithromycin. Chest x-ray individually reviewed and shows right lower lobe infiltrate consistent with pneumonia. Aggressive bronchopulmonary hygiene with incentive spirometry and PEP. 04/11: As per prelim sputum culture grows 2+ GPC and rare GNR. Full culture to follow. Continue antibiotics. 04/12: Prelim culture shows beta Streptococcus 2+. Continue IV ceftriaxone till full culture comes up and discharge possible tomorrow on final culture and sensitivity. Mild chronic malnutrition: Patient has loss of subcutaneous fat. Decreased bulk of muscles of extremities. BMI 17.4 kg/m?. 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 #History of prostate cancer: stable. #DVT prophylaxis: lovenox Code status: full code * Patient counseled extensively about different types of CODE STATUS including full code, DNR CCA and DNR CCA. Patient elects to be full code; patient says he feels he is still in very good health and wants to have CPR and be intubated for a short period if needed. Charges/Coding Visit Charges Inpatient E&M: 30550 Subs Hosp L2
[2023-04-12 14:38] VITALS: BP 133/65; PULSE 81; RESP 16; TEMP 36.6; O2SAT 97
[2023-04-12] MEDS: Ceftriaxone 1 GM/50 ML BAG IV (21:25)
[2023-04-12] MEDS: 0.9% Saline Lock 10 ML Syringe IV (21:26)
[2023-04-12 21:45] VITALS: BP 135/66; PULSE 76; RESP 17; TEMP 36.6; O2SAT 97
[2023-04-12] MEDS: Azithromycin 500 MG in Dextrose 5%-Water (250mL Bag) 250 ML 250 MG IV (22:07)
[2023-04-13] VITALS (7 sets, daily range): BP systolic 115–148; BP diastolic 58–88; PULSE 76–88; RESP 16–20; TEMP 36.2–36.8; O2SAT 92–97
[2023-04-13] MEDS: Acetaminophen 325 MG Tablet 650 MG PO (05:09)
[2023-04-13] MEDS: Menthol/Lanolin/Calamine/Znox 113 GM Tube 1 APPLIC TOPICAL ×3 (05:10→20:36)
[2023-04-13 05:43] LABS: Absolute Lymphocyte Count 0.69 X10^3/uL (0.83-4.51); Absolute Neutrophil Count 3.2 X10^3/uL (2.0-7.7); Basophil# 0.05 X10^3/uL; Basophil% 1.1 % (0-1); Eosinophil# 0.11 X10^3/uL; Eosinophils% 2.4 % (0-5); Hematocrit 37.6 % (40-54); Hemoglobin 12.1 g/dL (13.0-16.5); Lymphocyte # 0.69 X10^3/ul (0.83-4.51); Lymphocyte % 14.8 % (19-41); Mean Corp Hgb Conc 32.2 g/dL (32-36); Mean Corpuscular Hgb 29.4 pg (27.0-32.0); Mean Corpuscular Volume 91.5 fL (80-94); Monocyte# 0.45 X10^3/uL; Monocyte% 9.7 % (0-10); NRBC Flagged by Analyzer 0 % (0-5); Neutrophil # 3.24 X10^3/uL (2.7-7.7); Neutrophil % 69.6 % (47-70); Platelet Count 230 K/mm3 (150-450); RBC Distribution Width CV 14.7 % (11.6-14.6); RBC Distribution Width SD 49.4 fl (35.1-43.9); Red Blood Count 4.11 M/mm3 (4.6-6.2); White Blood Count 4.7 K/mm3 (4.4-11.0)
[2023-04-13 06:03] LABS: Anion Gap 6 (5-15); BUN 19 mg/dL (7-18); BUN/Creat Ratio 28.7 RATIO (10-20); Calcium,Total 8.2 mg/dL (8.5-10.1); Chloride 100 mmol/L (98-107); Creatinine, Serum 0.66 mg/dL (0.70-1.30); EST Glomerular Filtration Rate 121 mL/min (>60); Est Glom Filt Rate - Afr Amer 146 mL/min (>60); Estimated Creatinine Clearance 50.58 ml/min; Glucose 96 mg/dL (74-106); Potassium 4.3 mmol/L (3.5-5.1); Sodium Level 135 mmol/L (136-145)
[2023-04-13] MEDS: Ensure Plus High Protein 120 ML LIQUID PO ×4 (08:16→20:36)
[2023-04-13] MEDS: Enoxaparin 40 MG/0.4 ML Syringe SC (08:16)
--- NOTE | 2023-04-13 14:55 | CASEMGMT ---
NIMCO ROSENBERG NOTE: RN CM to room. Pt resting in bed. Introduced self and role. Discussed discharge planning. Pt declines wanting HHC, stating, They have come before and I told them it's a waste of time . He denies having other discharge needs. Amira BSN NIMCO ROSENBERG
--- NOTE | 2023-04-13 16:21 | PN.HOSP_ITS ---
Reason for Visit Reason for Visit: Diagnoses Pneumonia, unspecified organism (04/09/23) Subjective Subjective Feeling somewhat worse than yesterday, still has productive cough and shortness of breath though does feel better than previous. Patient reports he has history of ureteral stenting and was supposed to have an exchange on Thursday, presently does not have any burning or urinary complaints concerning for UTI Objective Data Objective Data Vital Signs: Vital Signs Temp Pulse Resp BP Pulse Ox O2 Del Method O2 Flow Rate 98.3 F 78 16 115/58 L 97 Room Air 2 04/13/23 15:52 04/13/23 15:52 04/13/23 15:52 04/13/23 15:52 04/13/23 15:52 04/13/23 15:52 04/10/23 02:15 Oxygen Flow Rate (L/min) 2 Oxygen Delivery Method Room Air Weight: 54.975 kg Body Mass Index (BMI) 17.4 Intake & Output: Intake and Output for Last 24 Hours 04/11/23 04/12/23 04/13/23 23:59 23:59 23:59 Intake Total 1100 / 1100 1005 / 1005 200 / 200 Output Total 350 / 350 200 / 200 100 / 100 Balance 750 / 750 805 / 805 100 / 100 Medical Nutrition Assessment Dietitian: Malnutrition Criteria Met Start: 04/10/23 10:30 Freq: Status: Active Protocol: Document 04/13/23 11:54 ROSENDO (Rec: 04/13/23 11:54 ROSENDO Desktop) Nutrition Malnutrition Evidence of Malnutrition Exists Yes Malnutrition (severe): Chronic Evidenced By Suboptimal Energy Intake ( Severe),Weight Loss (Severe) Clinical Problem Chronic Disease or Condition Related Malnutrition Etiology related to suboptimal energy intake at meals Signs/Symptoms as evidenced by <50% po intake of est nutritional needs and 10.5% unintended wt loss x 6-7 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 Also w/ muscle/fat loss throughout body and face; BMI < 18 Status Active Problem Recommendation Dietitian Recommendations/Changes Will continue liberal regular diet d/t signs and symptoms of malnutrition Will continue 4 oz ensure plus high protein 4x/day w/ medpass Lab / Micro Data 04/13/23 05:25 04/13/23 05:25 Labs: Laboratory Results - last 24 hr 04/13/23 05:25: WBC 4.7, RBC 4.11 L, Hgb 12.1 L, Hct 37.6 L, MCV 91.5, MCH 29.4, MCHC 32.2, RDW Std Deviation 49.4 H, RDW Coeff of Michael 14.7 H, Plt Count 230, MPV 9.0, Immature Gran % (Auto) 2.400 H, Neut % (Auto) 69.6, Lymph % (Auto) 14.8 L, [place] % (Auto) 9.7, Eos % (Auto) 2.4, Baso % (Auto) 1.1 H, Absolute Neuts (auto) 3.2, Absolute Lymphs (auto) 0.69 L, Nucleated RBC % 0, Sodium 135 L, Potassium 4.3, Chloride 100, Carbon Dioxide 29.0, Anion Gap 6, BUN 19 H, Creatinine 0.66 L , Estim Creat Clear Calc 50.58, Est GFR (MDRD) Af Amer 146, Est GFR (MDRD) Non- Af 121, BUN/Creatinine Ratio 28.7 H, Glucose 96, Calcium 8.2 L Micro: Microbiology 04/09/23 21:45 Blood Culture (Wb) - Left Forearm Blood Culture - Preliminary No growth in 48 hours. 04/09/23 21:15 Blood Culture (Wb) - Left Forearm Blood Culture - Preliminary No growth in 48 hours. 04/10/23 10:15 Sputum, Expectorated/Coughed Gram Stain - Final 04/10/23 10:15 Sputum, Expectorated/Coughed Respiratory Culture - Final Beta streptococcus 04/09/23 22:49 Urine, Clean Catch Urine Culture - Final Corynebacterium amycolatum 04/09/23 22:49 Urine Catheter - Catheter Legionella Antigen - Final 04/09/23 22:49 Urine Catheter - Catheter Streptococcus pneumoniae Antigen (M - Final 04/09/23 21:20 Mucosa - Nasopharyngeal SARS-CoV-2, Influenza & RSV (PCR) - Final Rhythm Strip Rhythm Strip: Sinus Rhythm Rate: 87 Ectopy: None Physical Exam Narrative General: Alert, oriented, no apparent distress HEENT: Atraumatic, normocephalic Eyes: Anicteric, normal conjunctiva, extraocular movements grossly intact Neck: Supple Respiratory: Slight increased respiratory effort, somewhat diminished at the bases Cardiovascular: Regular rate GI: Soft, nontender, nondistended Extremities: No edema Musculoskeletal: Moving all extremities Neuro: No overt focal neurological deficits Skin: No rashes appreciated Psych: Cooperative Assessment & Plan Assessment/Plan (1) Pneumonia: PLAN: Plan This is a 87-year-old gentleman has shortness of breath for more than 10 years along with cough and sputum production. For last1 week, his symptoms got worse with short of breath, dyspnea at rest. Denies any acute change in his sputum production which is grayish in coloration. #Community acquired pneumonia with beta Streptococcus in sputum * admit to med surg * admitted with a complaint of weakness and found to have right sided pneumonia and a fever * COVID, flu and RSV negative Urinary antigens are negative for Legionella and Streptococcus. Patient is dehydrated and continue IV fluid. On empiric IV ceftriaxone and azithromycin. Chest x-ray individually reviewed and shows right lower lobe infiltrate consistent with pneumonia. Aggressive bronchopulmonary hygiene with incentive spirometry and PEP. 04/11: As per prelim sputum culture grows 2+ GPC and rare GNR. Full culture to follow. Continue antibiotics. 04/12: Prelim culture shows beta Streptococcus 2+. Continue IV ceftriaxone till full culture comes up and discharge possible tomorrow on final culture and sensitivity. -04/13: Patient with beta strep 2+ has been on Rocephin and has done well on this, anticipate patient can DC in next 1 to 2 days if continued improvement #Corynebacterium in urine -UA obtained on admission and growing corynebacterium amycolatum -W/ history of ureteral stent/ stent presently in place -No sx of UTI but has foreign material present, will c/s ID for further recommendations #Mild chronic malnutrition: Patient has loss of subcutaneous fat. Decreased bulk of muscles of extremities. BMI 17.4 kg/m?. 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 #History of prostate cancer: stable. #DVT prophylaxis: lovenox subq Time spent in the patient's overall evaluation,decision-making process, review of diagnostic data, adjustment of management, discussion with other providers, nursing nursing and ancillary staff involved in patient's care documentation, 35 minutes Capacity Legal Bell Cleaner Reflex Medical hold order details:: IF a medical hold is selected below, a suggested order for a MEDICAL HOLD will reflex upon signing the document. Next of kin: [place] law dictates a PRIORITY LIST for identifying legal decision-maker/legal next of kin in the following order (LNOK): 1st: The patient?s legal guardian, if any 2nd: The patient's spouse (if status is questionable, consult Risk Management) 3rd: The patient?s adult child(joe) (majority, if multiple children) 4th: The patient?s parents 5th: The patient?s adult siblings (majority, if multiple children siblings) Charges/Coding Visit Charges Inpatient E&M: 57963 Subs Hosp L2
[2023-04-13] MEDS: Ceftriaxone 1 GM/50 ML BAG IV (21:57)
[2023-04-13] MEDS: Azithromycin 500 MG in Dextrose 5%-Water (250mL Bag) 250 ML 250 MG IV (22:37)
[2023-04-14 02:15] VITALS: BP 133/61; PULSE 76; RESP 20; TEMP 36.5; O2SAT 95
[2023-04-14] MEDS: Menthol/Lanolin/Calamine/Znox 113 GM Tube 1 APPLIC TOPICAL (05:37)
[2023-04-14 07:23] LABS: Absolute Lymphocyte Count 0.62 X10^3/uL (0.83-4.51); Absolute Neutrophil Count 3.2 X10^3/uL (2.0-7.7); Basophil# 0.03 X10^3/uL; Basophil% 0.7 % (0-1); Eosinophil# 0.11 X10^3/uL; Eosinophils% 2.4 % (0-5); Hematocrit 37.3 % (40-54); Hemoglobin 12.3 g/dL (13.0-16.5); Lymphocyte # 0.62 X10^3/ul (0.83-4.51); Lymphocyte % 13.7 % (19-41); Mean Platelet Vol. 8.8 fl (6.2-12.0); Monocyte# 0.37 X10^3/uL; Monocyte% 8.2 % (0-10); NRBC Flagged by Analyzer 0 % (0-5); Neutrophil # 3.23 X10^3/uL (2.7-7.7); Neutrophil % 71.5 % (47-70); Platelet Count 238 K/mm3 (150-450); RBC Distribution Width CV 14.7 % (11.6-14.6); RBC Distribution Width SD 49.1 fl (35.1-43.9); White Blood Count 4.5 K/mm3 (4.4-11.0)
[2023-04-14 08:10] LABS: Anion Gap 4 (5-15); BUN 23 mg/dL (7-18); BUN/Creat Ratio 32.9 RATIO (10-20); Calcium,Total 8.8 mg/dL (8.5-10.1); Chloride 99 mmol/L (98-107); EST Glomerular Filtration Rate 113 mL/min (>60); Est Glom Filt Rate - Afr Amer 137 mL/min (>60); Estimated Creatinine Clearance 50.58 ml/min; Glucose 98 mg/dL (74-106); Potassium 4.4 mmol/L (3.5-5.1); Sodium Level 132 mmol/L (136-145)
[2023-04-14 08:15] VITALS: BP 116/71; PULSE 81; RESP 17; TEMP 36.8; O2SAT 96
[2023-04-14] MEDS: Ensure Plus High Protein 120 ML LIQUID PO (09:19)
[2023-04-14] MEDS: Enoxaparin 40 MG/0.4 ML Syringe SC (09:19)
[2023-04-14] MEDS: 0.9% Saline Lock 10 ML Syringe IV (09:20)
[2023-04-14 09:29] LABS: Pathologist Review Reviewed
--- NOTE | 2023-04-14 10:30 | CON.PCM.ID_ITS ---
Assessment & Plan Assessment/Plan (1) Pneumonia: PLAN: strep CAP - fever resolved, feeling better. Will stop azithro. Cont ceftriaxone while inpatient. Ok for home with 2 more days po augmentin 875mg bid. Will follow, thank you HPI Consult Data Date of Consult: 04/14/23 HPI Narrative Reason for Consultation: CAP HPI Narrative: ELIESER VILLEGAS, is a 87 M who presented 04/09 with several days fever, cough, weakness, sputum at home. Came to ED, admitted on azithro/ceftriaxone, feeling better. No congestion, no n/v/d. Full ROS performed and neg except as noted above. [facility] Medical History Abnormal results of thyroid function studies Alcohol use Arthritis Back pain Cancer Cholelithiasis Chronic bronchitis Closed intertrochanteric fracture of left femur Former smoker Heartburn History of edema History of SIADH Hydronephrosis Hyponatremia Kidney failure Loss of hearing Low iron Prostate cancer Prostatic cancer Shortness of breath on exertion Vitamin D insufficiency Wears glasses Wears partial dentures Home Medications NK 04/09/23 [History Last Taken Unknown] Allergy/AdvReac Type Severity Reaction Status Date / Time No Known Allergies Allergy Verified 04/09/23 21:06 Family History Other Heart disease Surgical History H/O hernia repair History of cystoscopy History of open reduction and internal fixation (ORIF) procedure History of open reduction and internal fixation (ORIF) procedure History of renal stent History of transurethral resection of prostate Hx of cystoscopy Status post appendectomy Social History household members: spouse and other details: 2 st0ry house. He sleeps downstairs in a recliner. 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 Tobacco: How many years used: 67 how long ago did patient quit smoking: He quit in 2019 alcohol intake: current alcohol intake frequency: holidays/special occasions only substance use type: does not use Physical Exam Const alert and no apparent distress General Appearance: cooperative HEENT normocephalic and head/scalp atraumatic Eyes PERRL and EOMs intact bilaterally Neck supple and No nodes Resp Auscultation: rhonchi Cardio regular rate and regular rhythm GI soft to palpation, non-tender and non-distended Extremity General Extremity: Negative for edema Skin no rashes or lesions noted Medical Records Data Medical Nutrition Assessment Dietitian: Malnutrition Criteria Met Start: 04/10/23 10:30 Freq: Status: Active Protocol: Document 04/13/23 11:54 SLA (Rec: 04/13/23 11:54 SLA Desktop) Nutrition Malnutrition Evidence of Malnutrition Exists Yes Malnutrition (severe): Chronic Evidenced By Suboptimal Energy Intake ( Severe),Weight Loss (Severe) Clinical Problem Chronic Disease or Condition Related Malnutrition Etiology related to suboptimal energy intake at meals Signs/Symptoms as evidenced by <50% po intake of est nutritional needs and 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 Also w/ muscle/fat loss throughout body and face; BMI < 18 Status Active Problem Recommendation Dietitian Recommendations/Changes Will continue liberal regular diet d/t signs and symptoms of malnutrition Will continue 4 oz ensure plus high protein 4x/day w/ medpass Lab / Micro Data Attestation: I reviewed the patient's lab results. 04/14/23 07:06 04/14/23 07:06 Labs: Laboratory Results - last 24 hr 04/10/23 05:43: Diff Path Review Reviewed 04/14/23 07:06: WBC 4.5, RBC 4.10 L, Hgb 12.3 L, Hct 37.3 L, MCV 91.0, MCH 30.0, MCHC 33.0, RDW Std Deviation 49.1 H, RDW Coeff of Michael 14.7 H, Plt Count 238, MPV 8.8, Immature Gran % (Auto) 3.500 H, Neut % (Auto) 71.5 H, Lymph % (Auto) 13.7 L , [place] % (Auto) 8.2, Eos % (Auto) 2.4, Baso % (Auto) 0.7, Absolute Neuts (auto) 3.2, Absolute Lymphs (auto) 0.62 L, Nucleated RBC % 0, Sodium 132 L, Potassium 4.4, Chloride 99, Carbon Dioxide 29.0, Anion Gap 4 L, BUN 23 H, Creatinine 0.70, Estim Creat Clear Calc 50.58, Est GFR (MDRD) Af Amer 137, Est GFR (MDRD) Non-Af 113, BUN/Creatinine Ratio 32.9 H, Glucose 98, Calcium 8.8 Rhythm Strip Rhythm Strip: Sinus Rhythm Rate: 87 Ectopy: None Capacity Legal Ecommerce Project Manager Reflex Medical hold order details:: IF a medical hold is selected below, a suggested order for a MEDICAL HOLD will reflex upon signing the document. Next of kin: [place] law dictates a PRIORITY LIST for identifying legal decision-maker/legal next of kin in the following order (LNOK): 1st: The patient?s legal guardian, if any 2nd: The patient's spouse (if status is questionable, consult Risk Management) 3rd: The patient?s adult child(joe) (majority, if multiple children) 4th: The patient?s parents 5th: The patient?s adult siblings (majority, if multiple children siblings)
--- NOTE | 2023-04-14 13:05 | CASEMGMT ---
RN CM into pt room, pt sitting up in bed, pt denies any homegoing needs. He states that his family will transport him home.
--- NOTE | 2023-04-14 14:25 | DCINST_ITS ---
Discharge Instructions Diet Discharge Diet: - (DASH diet) Activity Discharge Activity: Return to Normal Activity Follow Up Care Test Results: Test results from this visit will be discussed in further detail at your follow- up appointment, if applicable. Discharge Plan Admission Admit Date/Time: 04/09/23 23:52 Primary Reason for Your Visit: Shortness of breath Attending Provider: Sarita Melgar Primary Care Provider: Johnny Shelton Consulting Providers: Twila Humphreys; Sung Sharma; Gabriel Duckworth Instructions Patient Instructions: ED Fall Prevention Additional Instructions / Restrictions: DISCHARGE INSTRUCTIONS PLEASE READ *Please take this with you to your next doctors appointment* -Please follow with Dr. Hollingsworth for stent exchange -You will be discharged on Augmentin 875 mg for 2 more days, this prescription was sent to preferred pharmacy on file -Please call your primary care provider's office upon discharge to schedule a hospital follow up within 1 week. -For any concerning signs or symptoms please call 911 or proceed to the nearest emergency department Discharge Orders/Prescriptions Prescriptions: New amoxicillin-pot clavulanate 875-125 mg tablet 1 tab PO BID 2 Days Qty: 4 0RF No Action NK Referrals / Follow Up: Gildardo Hollingsworth MD [Med Staff - Active Staff] - Within 1 Week Johnny Shelton DO [Primary Care Provider] - Within 1 Week Disposition Disposition (needs filled in before D/C Order can be placed): Home, Self Care
--- NOTE | 2023-04-14 14:31 | DS.PCM_ITS ---
Providers Date of Admission: 04/09/23 Date of Discharge: 04/14/23 Primary Care Physician: Dr. Johnny Shelton, Consultations 04/10/23 03:34 Consult: Onc/Wound/orange grower Routine Comment: Reason for Consult:: pressure injury to L buttock Comments:: non urgent, applied mepilex 04/13/23 16:37 Consult: Infectious Disease Routine Consulting Provider: Gabriel Duckworth Reason for Consult: No UTI sx but corynebact in ucx w/ ureteral stent, also B eta strep in sputu EMERGENT Consult: No MD Notified: Yes Date Notified: 04/13/23 Time Notified: 16:37 Method of Notification: Text Reason For Visit: PNEUMONIA Diagnosis Discharge Diagnosis (1) Pneumonia: Status: Acute Code(s): J18.9 - Pneumonia, unspecified organism Plan #Community acquired pneumonia with beta Streptococcus in sputum #Corynebacterium in urine #Ureteral stent #Mild chronic malnutrition #History of prostate cancer Medications at Discharge Home Medications NK 04/09/23 amoxicillin 875 mg-potassium clavulanate 125 mg tablet 1 tab PO BID 2 days #4 tabs 04/14/23 Hospital Course Summary of Care Provided Minutes Spent on Discharge: 31 Hospital Course: 87-year-old male with history of prostate cancer, chronic ureteral stent, arthritis presented to [facility] 04/14/2023 with generalized weakness, shortness of breath, fever. He was found to have pneumonia and was positive for beta strep. Additionally was found to have corynebacterium in urine and revealed he has a ureteral stent that was supposed to be changed on Thursday but will need to be rescheduled as he was in the hospital. ID consulted given corynebacterium in urine with his stent for further input in addition to his beta strep pneumonia he was recommended to further days of Augmentin and to follow-up outpatient with urology for stent exchange. Patient with no urinary symptoms and feeling much better on day of discharge, no new or acute complaints. Discharged home in stable condition Physical Exam Narrative General: Alert, oriented, no apparent distress HEENT: Atraumatic, normocephalic Eyes: Anicteric, normal conjunctiva, extraocular movements grossly intact Neck: Supple Respiratory: Improved aeration, no increased work of breathing Cardiovascular: Regular rate GI: Soft, nontender, nondistended Extremities: No edema Musculoskeletal: Moving all extremities Neuro: No overt focal neurological deficits Skin: No rashes appreciated Psych: Cooperative Medical Records Data Medical Nutrition Assessment Dietitian: Malnutrition Criteria Met Start: 04/10/23 10:30 Freq: Status: Active Protocol: Document 04/13/23 11:54 SLA (Rec: 04/13/23 11:54 SLA Desktop) Nutrition Malnutrition Evidence of Malnutrition Exists Yes Malnutrition (severe): Chronic Evidenced By Suboptimal Energy Intake ( Severe),Weight Loss (Severe) Clinical Problem Chronic Disease or Condition Related Malnutrition Etiology related to suboptimal energy intake at meals Signs/Symptoms as evidenced by <50% po intake of est nutritional needs and 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 Also w/ muscle/fat loss throughout body and face; BMI < 18 Status Active Problem Recommendation Dietitian Recommendations/Changes Will continue liberal regular diet d/t signs and symptoms of malnutrition Will continue 4 oz ensure plus high protein 4x/day w/ medpass Weight / BMI Weight Weight: 54.975 kg Body Mass Index (BMI) 17.4 ABG / Lab / Microbiology Data 04/14/23 07:06 04/14/23 07:06 Laboratory: Laboratory Results - last 24 hr 04/10/23 05:43: Diff Path Review Reviewed 04/14/23 07:06: WBC 4.5, RBC 4.10 L, Hgb 12.3 L, Hct 37.3 L, MCV 91.0, MCH 30.0, MCHC 33.0, RDW Std Deviation 49.1 H, RDW Coeff of Michael 14.7 H, Plt Count 238, MPV 8.8, Immature Gran % (Auto) 3.500 H, Neut % (Auto) 71.5 H, Lymph % (Auto) 13.7 L , [place] % (Auto) 8.2, Eos % (Auto) 2.4, Baso % (Auto) 0.7, Absolute Neuts (auto) 3.2, Absolute Lymphs (auto) 0.62 L, Nucleated RBC % 0, Sodium 132 L, Potassium 4.4, Chloride 99, Carbon Dioxide 29.0, Anion Gap 4 L, BUN 23 H, Creatinine 0.70, Estim Creat Clear Calc 50.58, Est GFR (MDRD) Af Amer 137, Est GFR (MDRD) Non-Af 113, BUN/Creatinine Ratio 32.9 H, Glucose 98, Calcium 8.8 Microbiology: Microbiology 04/09/23 21:45 Blood Culture (Wb) - Left Forearm Blood Culture - Preliminary No growth in 48 hours. 04/09/23 21:15 Blood Culture (Wb) - Left Forearm Blood Culture - Preliminary No growth in 48 hours. 04/10/23 10:15 Sputum, Expectorated/Coughed Gram Stain - Final 04/10/23 10:15 Sputum, Expectorated/Coughed Respiratory Culture - Final Beta streptococcus 04/09/23 22:49 Urine, Clean Catch Urine Culture - Final Corynebacterium amycolatum 04/09/23 22:49 Urine Catheter - Catheter Legionella Antigen - Final 04/09/23 22:49 Urine Catheter - Catheter Streptococcus pneumoniae Antigen (M - Final 04/09/23 21:20 Mucosa - Nasopharyngeal SARS-CoV-2, Influenza & RSV (PCR) - Final D/C Instructions Discharge Diet: - (DASH diet) Meaningful Use Info Meaningful Use Diagnoses (Choose all that apply): None applicable Discharge Plan Admission Admit Date/Time: 04/09/23 23:52 Primary Reason for Your Visit: Shortness of breath Attending Provider: Sarita Melgar Primary Care Provider: Johnny Shelton Consulting Providers: Twila Humphreys; Sung Sharma; Gabriel Duckworth Instructions Patient Instructions: ED Fall Prevention Additional Instructions / Restrictions: DISCHARGE INSTRUCTIONS PLEASE READ *Please take this with you to your next doctors appointment* -Please follow with Dr. Hollingsworth for stent exchange -You will be discharged on Augmentin 875 mg for 2 more days, this prescription was sent to preferred pharmacy on file -Please call your primary care provider's office upon discharge to schedule a hospital follow up within 1 week. -For any concerning signs or symptoms please call 911 or proceed to the nearest emergency department Discharge Orders/Prescriptions Prescriptions: New amoxicillin-pot clavulanate 875-125 mg tablet 1 tab PO BID 2 Days Qty: 4 0RF No Action NK Referrals / Follow Up: Gildardo Hollingsworth MD [Med Staff - Active Staff] - Within 1 Week Johnny Shelton DO [Primary Care Provider] - Within 1 Week Disposition Disposition (needs filled in before D/C Order can be placed): Home, Self Care Charges/Coding Visit Charges Inpatient E&M: 52398 Disch Hosp >30min
--- NOTE | 2023-04-14 15:22 | PHA.DC.MC.R ---
Pharmacy [facility] Service has performed discharge medication reconciliation and counseling for this patient. 1. AUGMENTIN 875MG PO BID X 2 DAYS The patient's discharge medication list was reviewed for discrepancies and discrepancies were resolved. The patient was counseled on the following discharge medications and changes in medications for homegoing were reviewed. The Reason for Use, instructions for use, and potential side effects were reviewed for all new medications. The patient's questions regarding all of their medications were answered. The patient was able to verbally demonstrate an understanding of their discharge medications. Medications at Discharge Home Medications NK 04/09/23 amoxicillin 875 mg-potassium clavulanate 125 mg tablet 1 tab PO BID 2 days #4 tabs 04/14/23
[2023-04-14 15:27] VITALS: BP 136/66; PULSE 76; RESP 16; O2SAT 95
== END 2023-04-14 15:35 | disposition home or self-care (01) | DRG 194 ==
LOC: ED 23:26 → MS2 04-10 00:25
PROVIDERS: Internal Medicine; Admitting Provider Student in an Organized Health Care Education/Training Program; Emergency Provider Emergency Medicine; PCP Family Medicine; Visit Provider Internal Medicine
DX: J15.3 Pneumonia due to streptococcus, group B (principal); E44.1 Mild protein-calorie malnutrition; Z68.1 Body mass index [BMI] 19.9 or less, adult; E86.0 Dehydration; R82.71 Bacteriuria; Z96.0 Presence of urogenital implants; Z85.46 Personal history of malignant neoplasm of prostate; Z87.891 Personal history of nicotine dependence
CPT/HCPCS: 36415; 71045; 80048; 80053; 81001; 83605; 85025; 85610; 85730; 87040; 87070; 87077; 87086; 87088; 87205; 87449; 87631; 93005; 94760; 97161; 97166; 97802; 99285; J7030; J7050; A4216

== ENCOUNTER → 2023-05-05 | Outpatient (CLI) | payer MEDICARE, OTHER, SELFPAY ==
[2021-09-09 14:02] VITALS: BMI 19.5
[2023-05-05 10:47] LABS: Hematocrit 45.5 % (40-54); Hemoglobin 14.6 g/dL (13.0-16.5); Mean Corp Hgb Conc 32.1 g/dL (32-36); Mean Corpuscular Volume 93.6 fL (80-94); Mean Platelet Vol. 9.2 fl (6.2-12.0); Platelet Count 201 K/mm3 (150-450); RBC Distribution Width CV 15.8 % (11.6-14.6); RBC Distribution Width SD 53.7 fl (35.1-43.9); Red Blood Count 4.86 M/mm3 (4.6-6.2); White Blood Count 4.9 K/mm3 (4.4-11.0)
[2023-05-05 11:15] LABS: Anion Gap 2 (5-15); BUN 19 mg/dL (7-18); BUN/Creat Ratio 17.8 RATIO (10-20); Calcium,Total 8.9 mg/dL (8.5-10.1); Chloride 101 mmol/L (98-107); Creatinine, Serum 1.07 mg/dL (0.70-1.30); EST Glomerular Filtration Rate 69 mL/min (>60); Est Glom Filt Rate - Afr Amer 84 mL/min (>60); Glucose 116 mg/dL (74-106); Potassium 4.1 mmol/L (3.5-5.1); Sodium Level 135 mmol/L (136-145)
--- OUTSIDE RECORDS SUMMARY | 2023-05-05 11:17 | XMS RPT_ITS | CCD ---
Author Name Unknown Address [address] [place] [address] Organization [facility] Care Team Providers Care Trichologist Name Role Phone Unavailable Primary Care Provider [...] 97.9 [degF] Madison Perez DPM Work Phone: [facility] 02-28-2021 15:02-0500 Diastolic blood pressure 74 mm[Hg] Madison Perez DPM Work Phone: [facility] 02-28-2021 15:02-0500 Heart rate 84 /min Madison Manzanomerman DPM Work Phone: [facility] 02-28-2021 15:02-0500 Systolic blood pressure 133 mm[Hg] Madisontal ManzanoPerez DPM Work Phone: [facility] 11-29-2020 15:13-0400 Body height 177.8 cm Madisontal ManzanoPerez DPM Work Phone: [facility] 11-29-2020 15:13-0400 Body mass index (BMI) [Ratio] 19.37 kg/m2 Madisontal ManzanoPerez DPM Work Phone: [facility] 11-29-2020 15:13-0400 Body temperature 97.81 [degF] Madison Manzanomerman DPM Work Phone: [facility] 11-29-2020 15:13-0400 Body weight 61.24 kg Madison Manzanomerman DPM Work Phone: [facility] 11-29-2020 15:13-0400 Diastolic blood pressure 57 mm[Hg] Madison Manzanomerman DPM Work Phone: [facility] 11-29-2020 15:13-0400 Heart rate 83 /min Madison Manzanomerman DPM Work Phone: [facility] 11-29-2020 15:13-0400 Systolic blood pressure 124 mm[Hg] Madisontal ManzanoPerez DPM Work Phone: [facility] 06-28-2020 14:59-0400 Body height 177.8 cm Madisontal ManzanoPerez DPM Work Phone: [facility] 06-28-2020 14:59-0400 Body mass index (BMI) [Ratio] 19.37 kg/m2 Madisontal ManzanoPerez DPM Work Phone: [facility] 06-28-2020 14:59-0400 Body weight 61.24 kg Madisontal ManzanoPerez DPM Work Phone: [facility] 06-28-2020 14:59-0400 Diastolic blood pressure 72 mm[Hg] Madison Perez DPM Work Phone: [facility] 06-28-2020 14:59-0400 Systolic blood pressure 137 mm[Hg] Madison Perez DPM Work Phone: [facility] Encounters Encounter Date Encounter Type Care Provider Facility Start: 05-01-2021 Telephone encounter Hakeem Frank MD [facility] Plan of Treatment Date Care Activity Detail Author Start: 03-14-2029 Tetanus vaccination Tetanus: Every 10yrs [facility] Start: 03-14-2029 Urine microalbumin profile DTAP,TDAP,TD (2 - Td or Tdap) [facility] Start: 05-09-2022 DIABETES SCREEN DIABETES SCREEN [facility] Start: 09-27-2021 COVID-19 VACCINE (3 - Booster for Pfizer series) COVID-19 VACCINE (3 - Booster for Pfizer series) [facility] Start: 03-30-2021 ADVANCE DIRECTIVE DISCUSSION ADVANCE DIRECTIVE DISCUSSION [facility] Start: 02-28-2021 End: 02-28-2021 Patient encounter procedure 02/28/2021 Office Visit Podiatry Madison Perez DPM [address] [place] [address] [facility] Start: 11-28-2020 Influenza vaccination Sequential Influenza Vaccine (#1) [facility] Start: 10-11-2020 End: 10-11-2020 Patient encounter procedure 10/11/2020 Office Visit Podiatry Madison Perez DPM [address] [place] [address] [phone] [facility] Start: 01-31-2015 Pneumococcal Vaccine: Age 65+ (2 of 4 - PPSV23) Pneumococcal Vaccine: Age 65+ (2 of 4 - PPSV23) [facility] Start: 11-05-2000 Fall risk assessment Falls Risk Assessment [facility] Start: 11-05-1985 Administration of herpes zoster vaccine Zoster Vaccines (1 of 2) [facility] Start: 11-05-1954 SHINGRIX VACCINE (1 of 2) SHINGRIX VACCINE (1 of 2) [facility] Start: 1947 COVID-19 Vaccine (1) COVID-19 Vaccine (1) [facility] Start: 1947 Depression screening using PHQ-9 (Patient Health Questionnaire 9) score [facility] Start: 11-05-1938 History and physical examination, annual for health maintenance Wellness Visit [facility] Start: 1935 Tetanus vaccination Tetanus: Every 10yrs [facility] Immunizations Immunization Date Immunization Notes Care Provider Fa shanique 04-30-2021 COVID-19 vaccine, ag e 12+ yr (PFIZER-BIONTECH - PURPLE TOP) Hakeem Frank III, MD [facility] 04-09-2021 COVID-19 vaccine, ag e 12+ yr (PFIZER-BIONTECH - PURPLE TOP) Hakeem Frank III, MD [facility] 04-09-2021 influenza, high dose seasonal, preservative-free Hakeem Frank III, MD [facility] 02-06-2020 influenza, high dose seasonal, preservative-free Madison Perez DPM Work Phone: [facility] 01-19-2020 influenza, high dose seasonal, preservative-free Hakeem Frank III, MD [facility] 03-14-2019 influenza, high dose seasonal, preservative-free Hakeem Frank III, MD [facility] 03-14-2019 tetanus toxoid, redu mila diphtheria toxoid, and acellular pertussis vaccine, adsorbed Hakeem Frank III, MD [facility] 01-07-2018 influenza, high dose olivier, preservative-free Hakeem Frank III, MD [facility] 05-18-2017 influenza, high dose seasonal, preservative-free Hakeem Frank III, MD [facility] 05-15-2017 pneumococcal polysaccharide vaccine, 23 valent Hakeem Frank III, MD [facility] 12-06-2014 pneumococcal conjuga te vaccine, 13 valent Madison Perez DPM Work Phone: [facility] 09-20-2014 pneumococcal conjuga te vaccine, 13 valent Hakeem Frank III, MD [facility] Payers Date Payer Category Payer Unknown AARP A[employer] [id number] 2020-Present [phone] [address] [place] [address] [id number] 2020 Unknown [id number] 2017 Private Health Insurance [facility] AARP SUPPLEMENT [id number] 2017-Present [phone] [address] [place] [address] Indemnity [id number] 2000 Medicare [id number] 2000 Medicare MEDICARE MEDICAR E PART A & B [id number] 2000-Present [phone] CGS [id number] PART [place] [address] [id number] 2000 Medicare [id number] 1935 Unknown [id number] 1935 Unknown [id number] Social History Date Type Detail Facility Start: 05-26-2017 End: 09-18-2020 Tobacco smoking status NHIS Former smoker [facility] Start: 01-26-2020 End: 09-18-2020 Alcohol intake Current drinker of alcohol (finding) [facility] Start: 1935 Sex Assigned At Not on file O hiNEeal Start: 05-26-2017 End: 09-18-2020 Tobacco use and exposure Smokeless tobacco non-user [facility] Exposure to SARS-CoV -2 (event) Not sure [facility] Start: [birth year]30-1954 End: 05-12-2017 History of tobacco use Current smoker [facility] Start: 05-26-2017 Cigarettes smoked cu rrent (pack per day) - Reported 0.9 [facility] Clinical Note 04-01-2021 Note Date & Type Note Facility 04-01-2021 Note Patient Outreach (LINDA STEVEN) ELIESER VILLEGAS ([id number]) 1935 M BLD Date Time Provider Department [...] for Outreach Attribution: Provider Off-boarding Payer: Payor: [facility] / Plan: FORMERLY [facility] SUPPLEMENT / Product Type: Indemnity / Care Gap Reviewed:: Annual Wellness visit Flu vaccine Reminder: Reminder note to check Health Maintenance for items below Health Maintenance items due: COVID-19 VACCINE(1) Never done SHINGRIX VACCINE(1 of 2) Never done ADVANCE DIRECTIVE DISCUSSION Never done INFLUENZA(1) due on 11/28/2020 Advanced Directives Completed: Have you ever planned for future healthcare decisions with a power of tax associate attorney, living will, or advance directives? Referrals: [...] Encounter Status:Closed by MARIFER CALLES on 04/01/21 [facility] Progress note 04-01-2021 Note Date & Type Note Facility 04-01-2021 Note HNO ID: [id number] Author: Marifer Calles MA Service: ? Author Type: Controls Designer Type: Progress Notes Filed: 04/01/2021 10:44 AM [...] for Outreach Attribution: Provider Off-boarding Payer: Payor: [facility] / Plan: [facility] AAR SUPPLEMENT / Product Type: Indemnity / Care Gap Reviewed:: Annual Wellness visit Flu vaccine Reminder: Reminder note to check Health Maintenance for items below Health Maintenance items due: COVID-19 VACCINE(1) Never done SHINGRIX VACCINE(1 of 2) Never done ADVANCE DIRECTIVE DISCUSSION Never done INFLUENZA(1) due on 11/28/2020 Advanced Directives Completed: Have you ever planned for future healthcare decisions with a power of tax associate attorney, living will, or advance directives? Referrals: Message Sent to Practice: Navigation Signature: Marifer Calles MA April 01, 2021 10:43 AM [facility] History of Present illness Narrative 02-28-2021 Madison Perez DPM - 02/28/2021 4:23 PM EST Note Date & Type Note Facility 02-28-2021 History of Presen t illness Narrative I attempted to see patient Who was in a hurry to leave after 38 minutes. Patient refused care. documented in this encounter [facility] History of Present illness Narrative 11-29-2020 Madison [...] RTC 3 months. documented in this encounter [facility] Evaluation note Note Date & Type Note Facility documented in this encounter [facility] Evaluation note Note Date & Type Note Facility documented in this encounter [facility] Evaluation note Note Date & Type Note Facility documented in this encounter [facility] Advance Directives No Advanced Directives Records FoundDocuments on File Type Date Recorded Patient Manager Logistic Expl anation Advance Directives and Livin g Will 09/08/2020 12:00 AM Documents on File Type Date Recorded Patient Manager Logistic Expl anation Advance Directives and Living Will Summary Purpose Family History No Family History Records FoundNo Family History Records Found Additional Source Comments Reason for Visit (unrecogniz ed section and content) Reason Comments Patient Update Care Teams (unrecognized sec tion and content) Trichologist Relationship Specialty Start Date End Date No, Physician [facility] PCP - General 11/29/20 Trichologist Relationship Specialty Start Date End Date Hakeem Frank III, MD PCP - General Family Practice 09/15/14 (unrecognized sect ion and content) No Status Records FoundNo Status Records Found INFORMATION SOURCE (unrecogn ized section and content) DATE CREATED AUTHOR AUTHOR'S ORGANIZ ATION 09/04/2021 [facility] Source Comments (unrecognize d section and content) In the event this informatio n is protected by the Federal Confidentiality of Alcohol and Drug Abuse Patient Records regulations: The Federal rules restrict any use of the information to criminally investigate or prosecute any alcohol or drug abuse patient.[facility] FOR RECORDS PERTAINING TO PATIENTS WHO [...] BE BASED ON THE PRIMARY CLINICAL RECORDS. [employer] [facility]. provides no warranty or guarantee of the accuracy or completeness of information in this document.
== END | disposition home or self-care (01) ==
LOC: LAB 10:10
PROVIDERS: PCP Family Medicine; Referring Provider Urology; Visit Provider Urology
DX: Z01.818 Encounter for other preprocedural examination (principal)
CPT/HCPCS: 36415; 80048; 85027

== ENCOUNTER → 2023-06-30 | Outpatient (CLI) | payer MEDICARE, OTHER, SELFPAY ==
[2021-09-09 14:02] VITALS: BMI 19.5
[2023-06-30 09:11] LABS: PSA,Total- Diagnostic 0.25 ng/mL (0.0-4.0)
== END | disposition home or self-care (01) ==
LOC: LAB 08:24
PROVIDERS: PCP Family Medicine; Referring Provider Urology; Visit Provider Urology
DX: C61 Malignant neoplasm of prostate (principal)
CPT/HCPCS: 36415; 84153

== ENCOUNTER → 2023-07-27 | Outpatient (CLI) | payer MEDICARE, OTHER, SELFPAY ==
[2021-09-09 14:02] VITALS: BMI 19.5
--- NOTE | 2023-07-27 14:57 | CT_ITS ---
STUDY: CT CHEST WITHOUT CONTRAST REASON FOR EXAM: Male, 87 years old. COPD RADIATION DOSAGE (If Supplied By Facility): CTDIvol = ( 8.48 ) mGy, DLP = ( 339.00 ) mGycm TECHNIQUE: Transaxial imaging was performed without the administration of intravenous contrast material. Multiplanar coronal and sagittal images were reformatted. Individualized dose optimization techniques were used for this CT. COMPARISON: Comparison is made with prior examination dated July 02, 2022. FINDINGS: CHEST Hyperinflation. Diffuse emphysematous changes. Stable 1.8 cm x 1.1 cm irregular nodule in the posterior medial segment of the left lower lobe. This is seen in axial image #82. There is a new 1.8 cm x 1 cm noncalcified nodule in the posteromedial segment of the left lower lobe as seen on axial image #93. Progressive pleural-parenchymal changes in the posterior medial segment of the right lower lobe. This may represent a focal area of rounded atelectasis. There are calcifications of the coronary arteries. Normal mediastinum. Normal hilar regions. Normal unenhanced pulmonary arteries. There is atherosclerotic calcification of the aortic arch with tortuosity and elongation of the aortic arch and descending thoracic aorta. There are multi-level degenerative changes of the thoracic spine. Right-sided double-J stent catheter. Nonobstructive calculus in the upper pole of the left kidney. Stable left renal cyst. Mild left hydronephrosis. Multiple small gallstones. CT/Chest without Contrast IMPRESSION: Progressive pleural parenchymal changes at the right lung base as described suggestive of round atelectasis. Stable 1.8 cm x 1.1 cm nodule in the posteromedial segment of the left lower lobe. There is a new 1.8 cm x 1 cm noncalcified nodule in the posteromedial segment of the left lower lobe axial image #93. Electronically Signed: Andres Rojas MD at 10:41 EDT ,
== END | disposition home or self-care (01) ==
LOC: CT 14:46
PROVIDERS: PCP Family Medicine; Referring Provider Internal Medicine Pulmonary Disease; Visit Provider Internal Medicine Pulmonary Disease
DX: J44.9 Chronic obstructive pulmonary disease, unspecified (principal); J47.9 Bronchiectasis, uncomplicated; R91.1 Solitary pulmonary nodule
CPT/HCPCS: 71250

== ENCOUNTER → 2023-09-01 | Outpatient (CLI) | payer MEDICARE, OTHER, SELFPAY ==
[2021-09-09 14:02] VITALS: BMI 19.5
--- NOTE | 2023-09-01 11:00 | PET_ITS ---
EXAMINATION: FDG PET-CT INDICATIONS: A 87-year-old male with a history of pulmonary nodularity. COMPARISON EXAMINATION: Previous FDG PET CT study dated 07/24/21. INDEX LESION SIZE SUV INTERPRETATION NEW: Right lower lung field, right lower lobe heterogeneous 2.7 Most consistent with an inflammatory process (pneumonitis). Sequential radiologic investigation may be of benefit. NEW: Left lower lung field, left lower lobe 1.2 max Quantitative criteria for viable neoplasm are not fulfilled, sequential radiologic investigation TECHNIQUE: Following the intravenous administration of 14.1 mCi of F-18 deoxyglucose via the right wrist, multiplanar image acquisitions of the head, neck, chest, abdomen and pelvis to level of mid-thigh, lower extremities obtained at one hour post radiopharmaceutical administration contemporaneously interpreted with the current CT of the head, neck, chest, abdomen and pelvis to level of mid-thigh, lower extremities dated 08/31/21 via coregistration and previous FDG PET CT study dated 07/24/21 reveal: SERUM GLUCOSE LEVEL: 79 mg/dl. HEIGHT: 70 inches. WEIGHT: 120 lbs. FINDINGS: Head/Neck: There is no evidence of abnormal increased glucose metabolism in the pharyngeal mucosal space, parapharyngeal space, bilateral-lateral and anterior neck, hypopharynx and distribution of the laryngeal structures. The visualized portion of the cerebral cortical-subcortical structures demonstrate symmetric and preserved glucose metabolism. CHEST: Facilitated FDG concentration is manifest in the right lower posterior lung zone. The calculated maximum standard uptake value is 2.7. A nodular focus of enhanced tracer uptake is noted in the left lower posterior lung field generating a calculated maximum standard uptake value of 1.[address] findings are as follows. There is atherosclerotic calcification defined in the thoracic aorta without evidence of dilatation-aneurysm formation. Coronary arterial calcification is observed. Mediastinal and scattered bilateral axillary soft tissue densities are ametabolic. Abdomen/Pelvis: Normal physiologic distribution of the radiopharmaceutical is apparent in the hepatic (2.9) and splenic parenchyma, both renal units, bladder and visualized intestinal tract. Diffuse radiopharmaceutical concentration is noted in all four quadrants of the abdomen and pelvis. Prominent collecting system activity is noted in the right kidney. Pertinent abdomen and pelvis CT findings are as follows. Calcified granuloma formation is noted in the splenic parenchyma. A right ureteral stent is demonstrated. Apparent post procedural change is noted in the prostatic bed. Cholelithiasis is defined. Calcifications manifest within the pancreatic tail. There is atherosclerotic calcification defined in the abdominal aorta without evidence of dilatation-aneurysm formation. Pelvic arterial calcification is defined. Skeletal: Degenerative changes are noted in the cervical, thoracic and lumbar spine. There is no visualized sclerotic-lytic changes manifest on review of the appendicular-axial skeletal structures. PET/PET/CT Tumor Base -Thigh Init IMPRESSION: 1. Facilitated radiopharmaceutical concentration is heterogeneously apparent in the right lower lung field and likely represents an inflammatory process, (pneumonitis). Histopathologic analysis may be indicated secondary to the quantitative degree of uptake. 2. If a conservative management approach is undertaken regarding the right hemithorax parenchymal abnormality, repeat FDG PET CT imaging and/or CT of the chest in 3-6 months is recommended to ensure stability, involution. 3. Focal increased FDG concentration manifest in the left lower lung field, left lower lobe does not fulfill quantitative criteria for malignant transformation. 4. Metabolic, morphologic stability regarding the left lung abnormality may be undertaken with repeat CT of the chest in 3-6 months if clinically indicated. Electronic Signature Bigg Yan D.O. Accurate Quantification of SUVs for this report are calculated using the exclusive [employer] Technology, (U.S. Patent No. [phone] [id number] [id number] [phone] patent [phone] ). Standardization and correction of the FDG SUV metric exclusively available with [employer] intellectual property, allow for vendor non-specific objective quantitative sequential FDG PET-CT comparison and otherwise unobtainable optimization of the sensitivity and specificity of the examination. [email or web address] Electronically Signed: Bigg Yan DO at 7:33 EDT ,
== END | disposition home or self-care (01) ==
LOC: ONC 09:59
PROVIDERS: PCP Family Medicine; Referring Provider Internal Medicine Pulmonary Disease; Visit Provider Internal Medicine Pulmonary Disease
DX: R91.1 Solitary pulmonary nodule (principal)
CPT/HCPCS: 78815; A9552

== ENCOUNTER → 2023-11-07 | Outpatient (CLI) | payer MEDICARE, OTHER, SELFPAY ==
[2021-09-09 14:02] VITALS: BMI 19.5
--- NOTE | 2023-11-07 08:36 | CT_ITS ---
INDICATION: COPD, PULMONARY NODULE EXAMINATION: CT CHEST WITHOUT CONTRAST - CT Chest W/O Contrast Injection TECHNIQUE: Helically acquired images were obtained of the chest. The protocol utilizes one or more of the following dose reduction techniques: automated exposure control, adjustment of mA and/or kV according to patient size,and/or use of iterative reconstruction technique. IV Contrast dosage and agent: None. RADIATION DOSAGE (If Supplied By Facility): CTDIvol = ( 10.07 ) mGy, DLP = ( 372.28 ) mGycm COMPARISON: CT chest 07/27/2023 FINDINGS: LUNGS: Emphysematous changes. Nodules: Left lower lobe, 2.0 cm nodule, axial image #85, unchanged. Left lower lobe, 1.9 cm oval-shaped nodule, axial image 98, unchanged. Left lower lobe, 2.0 x 1.4 cm with spiculated margins, axial image #101, is new. Focal opacity in the right lower lobe with adjacent pleural thickening is not significantly changed. Small 0.5 cm subpleural nodule right lower lobe unchanged. No consolidation. LARGE AIRWAYS: Unremarkable. PLEURA: No pleural effusion. No pneumothorax. MEDIASTINUM: Unremarkable. HEART: Not enlarged. CORONARY ARTERIES: Coronary artery calcification is seen. AORTA/VESSELS: No aortic aneurysm. ESOPHAGUS: Unremarkable. UPPER ABDOMEN: Right ureteral stent unchanged with right hydronephrosis increased compared to prior. Multiple gallstones in the gallbladder BONES/SOFT TISSUES: No acute abnormality. OTHER/LINES: None.. CT/Chest without Contrast IMPRESSION: New 2 cm nodule left lower lobe. Other nodules left lower lobe unchanged. Right lower lobe focal opacity with adjacent pleural thickening unchanged. Reevaluation with PET CT may be helpful. Right ureteral stent with increased right hydronephrosis compared to prior. Electronically Signed: Selena Maloney MD at 8:14 EDT ,
== END | disposition home or self-care (01) ==
PROVIDERS: PCP Family Medicine; Referring Provider Internal Medicine Pulmonary Disease; Visit Provider Internal Medicine Pulmonary Disease
DX: J44.9 Chronic obstructive pulmonary disease, unspecified (principal); R91.1 Solitary pulmonary nodule
CPT/HCPCS: 71250

== ENCOUNTER → 2023-12-15 | Outpatient (CLI) | payer MEDICARE, OTHER, SELFPAY ==
[2021-09-09 14:02] VITALS: BMI 19.5
--- NOTE | 2023-12-15 07:30 | PET_ITS ---
EXAMINATION: FDG-PET/CT ? INDICATIONS: 88-year-old male with a history of pulmonary nodularity. ? COMPARISON EXAMINATION: FDG-PET CT study dated 09/01/2023. ? INDEX LESION SIZE SUV INTERPRETATION PERSISTENT Right lower lung, right thoracic perihilum ? 2.2 compared to 2.7 Quantitative criteria for viable neoplasm are not fulfilled ? PERSISTENT Left lower lung field ? 0.8 compared to 1.2 Quantitative criteria for viable neoplasm are not fulfilled ? TECHNIQUE: Following the intravenous administration of 13.67 mCi of F-18 deoxyglucose via the right antecubital fossa, multiplanar image acquisitions of the head, neck, chest, abdomen and pelvis to the level of the midthigh, obtained at one-hour post radiopharmaceutical administration contemporaneously interpreted with the current CT of the chest, abdomen and pelvis dated 12/15/2023 and prior FDG-PET CT study dated 09/01/2023 via coregistration reveal: ? SERUM GLUCOSE LEVEL:? 91 mg/dL? HEIGHT:?? 70 inches WEIGHT:?? 119 pounds ? FINDINGS: ? HEAD/NECK:? There is no evidence of abnormal increased glucose metabolism in the pharyngeal mucosal space, parapharyngeal space, oropharynx, bilateral-lateral and anterior neck, hypopharynx and distribution of the larynx. ? The visualized portion of the cerebral cortical-subcortical structures demonstrate symmetric and preserved glucose metabolism. ? CHEST:? Persistent increased tracer uptake is noted in the right lower posteromedial lung zone, right lower lobe and right thoracic perihilum. The current calculated standard uptake value is 2.2 compared to 2.7. Persistent nodular increased uptake is barely discernable in the left lower lung field, left lower lobe with a current calculated standard uptake value of 0.8 compared to 1.2. ? CT of the chest demonstrates the following anatomic characteristics: On review of CT of the chest, there is no definitive interval change compared to the study dated 09/01/2023. ? ABDOMEN/PELVIS:? Normal physiologic distribution of the radiopharmaceutical is identified in the hepatic (2.9/2.9) and splenic parenchyma, both renal units, urinary bladder, and visualized intestinal tract. Diffuse intestinal tract is identified in all four quadrants of the abdominal-pelvic mesentery. ? CT of the abdomen and pelvis is remarkable for the following: On review of CT of the abdomen/pelvis there is no definitive interval change compared to the study dated 09/01/2023. ? SKELETAL:? There is no evidence of quantitatively significant enhanced glucose metabolism on meticulous inspection of the appendicular and axial skeletal structures. ? Degenerative changes defined in the thoracic and lumbar spine demonstrate no evidence of increased glucose metabolism. There are no sclerotic, mixed sclerotic-lytic, or primarily lytic changes defined in the axial skeletal structures with evidence of increased FDG uptake. ? PET/PET/CT Tumor Base -Thigh Init IMPRESSION: 1. NEGATIVE EXAMINATION. There is no definitive quantitative significance of viable neoplasm. 2. Enhanced radiotracer defined in the right and left thorax pulmonary parenchyma does not fulfill quantitative criteria for viable neoplasm. Metabolic-morphologic stability may be ensured in the bilateral hemithorax with repeat FDG PET CT imaging in 3-6 months if clinically indicated. 2. Overall, compared to the prior FDG-PET CT study dated 09/01/2023, there is current absence of defined viable neoplastic disease. Electronic Signature Bigg Yan D.O. Accurate Quantification of SUVs for this report are calculated using the exclusive [employer] Technology. (U.S. Patent No. [phone] [id number] 983 [phone] [phone] [place] patent [phone]). Standardization and correction of the FDG SUV metric via [employer] technology allow for vendor non-specific objective quantitative examination comparison and optimization of the sensitivity and specificity of the FDG PET-CT examination. [email or web address] Electronically Signed: Bigg Yan DO at 22:26 EDT ,
== END | disposition home or self-care (01) ==
LOC: ONC 07:10
PROVIDERS: PCP Family Medicine; Referring Provider Internal Medicine Pulmonary Disease; Visit Provider Internal Medicine Pulmonary Disease
DX: R91.1 Solitary pulmonary nodule (principal)
CPT/HCPCS: 78815; A9552

== ENCOUNTER 2024-01-31 07:33 | Emergency (ER) | payer MEDICARE, OTHER, SELFPAY ==
[2021-09-09 14:02] VITALS: BMI 19.5
[2024-01-31 07:34] VITALS: BP 132/78; PULSE 82; RESP 16; TEMP 36.6; O2SAT 97; BMI 17.3
--- NOTE | 2024-01-31 07:57 | EX.ED.DYSGE1 ---
HPI History of Present Illness Chief Complaint: Complaint Informant: patient Narrative Narrative: 88-year-old male presenting to the emergency room with back pain. Patient states that yesterday afternoon into the evening he developed pain on the right back that is now across both sides of the mid back. States it is worse with movement. He states he has had this before when he has had a problem with his chronic right renal stent. He does not know why he has a renal stent. 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 He follows with Dr. Hollingsworth. He states he has not had anything to eat for 12 hours because he typically does not drink anything in the evening and nighttime because of frequent nocturnal urination. He denies any fevers. Denies any trauma. He denies any abdominal pain. He states when this has happened in the past he has had to have his stent replaced. [facility] Medical History History of renal disease Former smoker Vitamin D insufficiency Abnormal results of thyroid function studies Loss of hearing Wears glasses Wears partial dentures Cancer Alcohol use Arthritis Low iron Back pain Heartburn Shortness of breath on exertion History of edema History of SIADH Chronic bronchitis Hydronephrosis Cholelithiasis Former smoker Closed intertrochanteric fracture of left femur Kidney failure Prostate cancer Hyponatremia Prostatic cancer Home Medications ?Medication ?Instructions ?Recorded ?Last Taken ?Type oxycodone-acetaminophen 5 mg-325 1 tab PO Q6H PRN PRN Pain 3 days 01/31/24 Unknown Rx mg tablet #12 TABLETS Allergy/AdvReac Type Severity Reaction Status Date / Time No Known Allergies Allergy Verified 01/31/24 07:34 Family History Other Heart disease Surgical History History of cystoscopy Hx of cystoscopy History of open reduction and internal fixation (ORIF) procedure History of open reduction and internal fixation (ORIF) procedure History of transurethral resection of prostate Status post appendectomy History of renal stent H/O hernia repair Social History household members: spouse and other details: 2 st0ry house. He sleeps downstairs in a recliner. 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 Tobacco: How many years used: 67 how long ago did patient quit smoking: He quit in 2019 alcohol intake: current alcohol intake frequency: holidays/special occasions only substance use type: does not use ROS ROS ED Constitutional Constitutional ED: Denies chills, fever(s) or weight loss Eyes Eyes: Denies change in vision or diplopia ENT ENT ED: Denies ear pain, rhinorrhea or sore throat Cardiovascular Cardiovascular: Denies chest pain, orthopnea, palpitations or racing heartbeat Respiratory/Chest Respiratory/Chest: Denies cough, dyspnea or orthopnea Gastrointestinal Gastrointestinal: Denies abdominal pain, diarrhea, nausea or vomiting Genitourinary Genitourinary ED: Denies dysuria, hematuria or urinary frequency Musculoskeletal Musculoskeletal: Reports back pain; Denies arthralgias or myalgias Integumentary Denies abscess or rash Neurologic Neurologic: Denies headache(s) or weakness Psychiatric Psychiatric: Denies anxiety, depression, suicidal ideation or suicidal thoughts Endocrine Endocrinology: Denies polydipsia, polyphagia or polyuria Allergic/Immunologic Allergic/Immunologic ED: Denies mouth swelling, tongue swelling or urticaria EXAM Physical Exam Const Vital Signs: 01/31/24 07:34 01/31/24 09:49 Temperature 97.9 F Temperature Source Oral Pulse Rate 82 75 Respiratory Rate 16 16 Blood Pressure 132/78 H 161/83 H Blood Pressure Mean 96 109 Pulse Ox 97 95 Oxygen Delivery Method Room Air Room Air Positive well nourished and well developed General Appearance ED: well developed and NAD HEENT Reports normocephalic, head/scalp atraumatic and moist mucous membranes Eyes PERRL and EOMs intact bilaterally Neck no lymphadenopathy, supple and no JVD Resp normal respiratory effort and clear to auscultation bilaterally Cardio regular rate, regular rhythm and no murmurs GI normal to inspection, nondistended, normoactive bowel sounds and non-tender GI Narrative: The bladder is decompressed Palpation: soft Back/Spine no CVA tenderness Back/Spine Narrative: Patient has painful range of motion of the back. No particular tenderness to palpation. No swelling ecchymosis or rashes noted. Patient points to the lower thoracic region bilaterally as the area that hurts Extremity normal to inspection General Extremety ED: Negative for edema General Extremity: Negative for edema Neuro oriented x3 and CN's II-XII intact bilaterally Sensorium / Orientation: alert Motor Exam: strength 5/5 throughout Psych mental status grossly normal Mood & Affect: Negative for depressed or tearful Skin no rashes or lesions noted and no wounds MDM MDM MDM Narrative Medical decision making narrative: Differential diagnosis includes but not limited to UTI obstructed ureter urinary retention acute renal failure musculoskeletal back pain pancreatitis biliary disease White count 3.5 with a hemoglobin of 13.2 platelet count 178. BMP shows a creatinine 1.15 BUN of 19 lipase is 19 liver enzymes showed an alkaline phosphatase of 130. CT abdomen pelvis demonstrates right-sided hydronephrosis with a right sided ureteral stent. This appears in adequate positioning. With delayed imaging there is no contrast present within the right ureter. Patient received IV fluid bolus. He is yet to produce a urine specimen. I spoke with the patient's urologist Dr. Hollingsworth. Patient will be given pain medication will call the office tomorrow for early follow-up for stent replacement. Patient is comfortable with this plan. He would prefer this over being transferred. History & Record Review Discussion w/independent historian: Patient and Family Additional record(s) reviewed:: Prior ED visit and Prior labs Lab Data Attestation: I reviewed the patient's lab results. Labs: Laboratory Results - last 24 hr 01/31/24 01/31/24 08:10 09:50 WBC 3.5 L RBC 4.26 L Hgb 13.2 Hct 40.6 MCV 95.3 H MCH 31.0 MCHC 32.5 RDW Std Deviation 46.2 H RDW Coeff of Michael 13.2 Plt Count 178 MPV 9.4 Immature Gran % (Auto) 0.900 Neut % (Auto) 68.0 Lymph % (Auto) 18.7 L Dolores % (Auto) 8.9 Eos % (Auto) 2.9 Baso % (Auto) 0.6 Absolute Neuts (auto) 2.4 Absolute Lymphs (auto) 0.65 L Nucleated RBC % 0 Sodium 142 Potassium 4.2 Chloride 108 H Carbon Dioxide 28.0 Anion Gap 6 BUN 19 H Creatinine 1.15 Estim Creat Clear Calc 34.47 Est GFR (MDRD) Af Amer 77 Est GFR (MDRD) Non-Af 64 BUN/Creatinine Ratio 16.5 Glucose 99 Calcium 8.7 Total Bilirubin 0.40 Direct Bilirubin 0.14 AST 17 ALT 13 L Alkaline Phosphatase 130 H Total Protein 6.5 Albumin 3.0 L Globulin 3.5 Lipase 19 Urine Color Yellow Urine Clarity Clear Urine pH 7.0 Ur Specific [place] 1.005 Urine Protein 30 H Urine Glucose (UA) Normal Urine Ketones Negative Urine Occult Blood 10 H Urine Nitrite Negative Urine Bilirubin Negative Urine Urobilinogen Normal Ur Leukocyte Esterase 100 H Urine RBC 0 SEEN Urine WBC 0-5 SEEN Ur Squamous Epith Cells 0 SEEN Urine Bacteria 0 SEEN Urine Mucus 0 SEEN Radiography Diagnostic Testing: Clinical Impression(s) from Imaging Studies Abdomen/Pelvis CT 01/31/24 08:41 IMPRESSION: 1. Right-sided hydroureteronephrosis with right-sided ureteral stent appearing well positioned. On delayed imaging, no contrast is present within the right ureter. 2. Bilateral lower lobe consolidative airspace disease, likely pneumonia. Superimposed centrilobular emphysema. 3. Likely sacral decubitus ulcer which can be correlated on examination. 4. Moderate amount of colorectal stool retention. No evidence of bowel obstruction. 5. Multiple lumbar compression fractures and lower thoracic compression fractures appear chronic some which correlate with the prior CT chest. Electronically Signed: Akash Mendoza DO at 9:27 EST , Management Discussion w/another healthcare provider: [employer] (Urology (Dr. Hollingsworth)) Discharge Plan Triage Chief Complaint: Complaint ED Provider: Heriberto Gomez Dx/Rx/DC Orders Clinical Impression: Occlusion of ureteral stent, Back pain Prescriptions: New oxycodone-acetaminophen 5-325 mg tablet 1 tab PO Q6H PRN PRN (Reason: Pain) 3 Days Qty: 12 0RF Primary Care Provider: Johnny Shelton Referrals: Gildardo Hollingsworth MD [Med Staff - Active Staff] - As soon as possible (Call the office tomorrow and tell them you need your ureteral stent changed soon as possible) Johnny Shelton DO [Primary Care Provider] - Print Language: [place] Disposition Disposition: Home, Self Care
[2024-01-31 08:22] LABS: Absolute Lymphocyte Count 0.65 X10^3/uL (0.83-4.51); Absolute Neutrophil Count 2.4 X10^3/uL (2.0-7.7); Basophil# 0.02 X10^3/uL; Basophil% 0.6 % (0-1); Eosinophils% 2.9 % (0-5); Hematocrit 40.6 % (40-54); Hemoglobin 13.2 g/dL (13.0-16.5); Lymphocyte # 0.65 X10^3/ul (0.83-4.51); Lymphocyte % 18.7 % (19-41); Mean Corp Hgb Conc 32.5 g/dL (32-36); Mean Corpuscular Volume 95.3 fL (80-94); Mean Platelet Vol. 9.4 fl (6.2-12.0); Monocyte# 0.31 X10^3/uL; Monocyte% 8.9 % (0-10); NRBC Flagged by Analyzer 0 % (0-5); Neutrophil # 2.37 X10^3/uL (2.7-7.7); Platelet Count 178 K/mm3 (150-450); RBC Distribution Width CV 13.2 % (11.6-14.6); RBC Distribution Width SD 46.2 fl (35.1-43.9); Red Blood Count 4.26 M/mm3 (4.6-6.2); White Blood Count 3.5 K/mm3 (4.4-11.0)
[2024-01-31 08:33] LABS: AST(SGOT) 17 U/L (15-37); Alanine Aminotransfer ALT/SGPT 13 U/L (16-61); Alkaline Phosphatase 130 U/L (45-117); Anion Gap 6 (5-15); BUN 19 mg/dL (7-18); BUN/Creat Ratio 16.5 RATIO (10-20); Bilirubin, Direct 0.14 mg/dL (0.00-0.30); Calcium,Total 8.7 mg/dL (8.5-10.1); Chloride 108 mmol/L (98-107); Creatinine, Serum 1.15 mg/dL (0.70-1.30); EST Glomerular Filtration Rate 64 mL/min (>60); Est Glom Filt Rate - Afr Amer 77 mL/min (>60); Estimated Creatinine Clearance 34.47 ml/min; Globulin 3.5 g/dL (2.2-4.2); Glucose 99 mg/dL (74-106); Lipase 19 U/L (13-75); Potassium 4.2 mmol/L (3.5-5.1); Protein, Total 6.5 g/dL (6.4-8.2); Sodium Level 142 mmol/L (136-145)
--- NOTE | 2024-01-31 08:41 | CT_ITS ---
EXAM: CT ABDOMEN AND PELVIS WITH INTRAVENOUS CONTRAST CLINICAL INDICATION: Chronic R ureteral stent Back pain R and gt;L TECHNIQUE: Helically acquired images were obtained of the abdomen and pelvis with intravenous contrast. This CT exam was performed using one or more of the following dose reduction techniques: automated exposure control, adjustment of the mA and/or kV according to patient size, and/or use of iterative reconstruction technique. CONTRAST: IV 100mL Isovue-370 COMPARISON: PET/CT, 12/15/2023; CT chest, 09/05/2021. FINDINGS: LOWER THORAX: Coronary artery calcifications and/or stents. Bilateral lower lobe consolidative airspace disease, likely pneumonia. Superimposed centrilobular emphysema. No cardiomegaly. No significant pericardial effusion. ABDOMEN: LIVER: No significant abnormality. Homogeneous. No focal mass. GALLBLADDER AND BILE DUCTS: No significant abnormality. No calcified gallstones. No gallbladder distention or wall edema. No intra- or extrahepatic biliary ductal dilation. PANCREAS: No significant abnormality. No focal cystic or solid mass. SPLEEN: No significant abnormality. Normal size without focal cystic or solid mass. ADRENALS: No significant abnormality. No nodules. KIDNEYS AND URETERS: Right-sided hydroureteronephrosis with right-sided ureteral stent appearing well positioned. On delayed imaging, no contrast is present within the right ureter. Left renal cysts are present for which no follow-up is indicated. Normal renal size and position. STOMACH AND BOWEL: Moderate amount of colorectal stool retention. No stomach or bowel distention. No focal inflammatory change. PELVIS: APPENDIX: No evidence of acute appendicitis. BLADDER: No significant abnormality. REPRODUCTIVE: Normal as visualized. No mass. ABDOMEN and PELVIS: INTRAPERITONEAL SPACE: No significant abnormality. No ascites or other fluid collection. No free air. BONES/JOINTS: Intramedullary fixation of the bilateral femora. Likely sacral decubitus ulcer which can be correlated on examination. Chronic appearing fracture of the right pubic bone. Degenerative changes in the spine. Multiple lumbar compression fractures and lower thoracic compression fractures appear chronic some which correlate with the prior CT chest. No suspicious lytic or blastic abnormality. SOFT TISSUES: No significant abnormality. No discrete abdominal or pelvic wall hernia. VASCULATURE: Atherosclerosis of the aorta and its branch vessels. LYMPH NODES: No significant abnormality. No enlarged lymph nodes. CT/Abdomen/Pelvis W IV Cont ONLY IMPRESSION: 1. Right-sided hydroureteronephrosis with right-sided ureteral stent appearing well positioned. On delayed imaging, no contrast is present within the right ureter. 2. Bilateral lower lobe consolidative airspace disease, likely pneumonia. Superimposed centrilobular emphysema. 3. Likely sacral decubitus ulcer which can be correlated on examination. 4. Moderate amount of colorectal stool retention. No evidence of bowel obstruction. 5. Multiple lumbar compression fractures and lower thoracic compression fractures appear chronic some which correlate with the prior CT chest. Electronically Signed: Akash Mendoza DO at 9:27 EST ,
[2024-01-31] MEDS: 0.9% Normal Saline (500mL Bag) 500 ML 999 ML IV (09:06)
[2024-01-31 09:49] VITALS: BP 161/83; PULSE 75; RESP 16; O2SAT 95
[2024-01-31 09:54] LABS: Bacteria 0 SEEN /hpf (None Seen); Mucous, Urine 0 SEEN /hpf (<or=2+); Red Blood Cells-Urine 0 SEEN /hpf (0-5); Squamous Epithelial Cells - UA 0 SEEN /hpf (0-5)
[2024-01-31 10:10] LABS: Color, Urine Yellow (Yellow); Glucose, Dipstick Normal (Normal); Ketone-Dipstick Negative (Negative); Leukocyte Esterase-Dipstick 100 /ul (Negative); Nitrite-Dipstick Negative (Negative); Occult Blood-Urine 10 /ul (Negative); Protein-Dipstick 30 mg/dl (Negative); Specific Gravity, Urine 1.005 (1.002-1.030); Urine Bilirubin Dipstick Negative (Negative); Urine Clarity Clear (Clear); Urine Urobilinogen Normal (Normal)
[2024-01-31 10:23] LABS: White Blood Cells 0-5 SEEN /hpf (0-5)
[2024-01-31] MEDS: Ketorolac 15 MG/ML Vial IV (11:08)
[2024-01-31] MEDS: Morphine 2 MG/ML Syringe IV (11:08)
[2024-01-31 11:37] VITALS: BP 118/107; PULSE 77; RESP 18; TEMP 36.1; O2SAT 93
== END 2024-01-31 11:40 | disposition home or self-care (01) ==
PROVIDERS: Emergency Provider Emergency Medicine; PCP Family Medicine; Visit Provider Emergency Medicine
DX: T83.89XA Other specified complication of genitourinary prosthetic devices, implants and grafts, initial encounter (principal); M54.9 Dorsalgia, unspecified; Z87.891 Personal history of nicotine dependence; X58.XXXA Exposure to other specified factors, initial encounter
CPT/HCPCS: 74177; 80048; 80076; 81001; 83690; 85025; 96361; 96374; 96375; 99282; J7040; Q9967; A4216

== ENCOUNTER 2024-02-03 12:47 | Day surgery (SDC) | payer MEDICARE, OTHER, SELFPAY ==
[2021-09-09 14:02] VITALS: BMI 19.5
[2024-02-03] VITALS (7 sets, daily range): BP systolic 98–154; BP diastolic 52–76; PULSE 89–100; RESP 14–20; TEMP 36.8–37; O2SAT 92–100; BMI 17.0
[2024-02-03] MEDS: Lactated Ringers 1,000 ML 15 ML IV (13:12)
[2024-02-03] MEDS: Cefazolin 2 GM in Syringe IV (16:08)
== END 2024-02-03 17:54 | disposition home or self-care (01) ==
LOC: SDC 12:48 → AC 13:33
PROVIDERS: PCP Family Medicine; Referring Provider Urology; Visit Provider Urology
PROC: (CPT 52332; principal; 2024-02-03 15:00)
DX: N28.89 Other specified disorders of kidney and ureter (principal); Z87.891 Personal history of nicotine dependence
CPT/HCPCS: 52332; 00910; 76000; J7120; C1769; C2617; J2405

== ENCOUNTER 2024-02-10 09:46 | Emergency (ER) | payer MEDICARE, OTHER, SELFPAY ==
[2021-09-09 14:02] VITALS: BMI 19.5
[2024-02-10 09:47] VITALS: BP 128/51; PULSE 72; RESP 16; TEMP 36.5; O2SAT 99
--- NOTE | 2024-02-10 10:04 | EKG12_ITS ---
Test Reason : ABD PAIN Blood Pressure : */* mmHG Vent. Rate : 68 BPM Atrial Rate : 68 BPM P-R Int : 140 ms QRS Dur : 82 ms QT Int : 386 ms P-R-T Axes : 78 72 72 degrees QTcB Int : 410 ms Normal sinus rhythm Possible Lateral infarct , age undetermined Abnormal ECG Confirmed by ADRIEL CRABTREE, AUGUSTO ([id number]), editor map ALLISON ROSADO ([id number]) on 02/11/2024 1:47:41 P M Referred By: Confirmed By: AUGUSTO MOREL MD
--- NOTE | 2024-02-10 10:05 | CT_ITS ---
INDICATION: chest/abdomen pain EXAMINATION: CTA CHEST, ABDOMEN AND PELVIS WITH CONTRAST - TECHNIQUE: A CTA of the chest, abdomen, and pelvis is obtained with sagittal and coronal reconstructed MIP views. Three-dimensional surface rendered sequence of the thoracic and abdominal aorta was obtained. A radiation dose optimization technique was used for this scan. 100 mL of Isovue-370. Oral contrast: None. COMPARISON: Comparison is made with prior CT scan of the chest dated November 07, 2023. FINDINGS: CT CHEST: THORACIC AORTA: Atherosclerotic plaque formation of the aortic arch and descending thoracic aorta. ABDOMINAL AORTA: No aneurysm or dissection. No significant atheromatous disease. The iliac arteries are unremarkable. LUNGS: Stable irregular opacity in the medial segment of the right lower lobe with areas of bronchiectasis and scarring. Stable pulmonary nodules in the posterior medial segment of the left lower lobe. MEDIASTINUM: The thyroid gland is normal. No mediastinal or hilar adenopathy. HEART: Heart is normal size. No pericardial effusion. Corner artery calcification. CT ABDOMEN AND PELVIS: LIVER: The liver enhances homogeneously. No masses identified. GALLBLADDER: The CBD is normal. Small gallstones. SPLEEN: Normal. PANCREAS: No masses or inflammation. ADRENAL GLANDS: Normal. KIDNEYS AND URETERS: A right-sided double-J stent catheter is seen with the proximal tip in the renal pelvis and distal tip in the bladder. Prostatic enlargement with a metallic seeds within the prostate. Stable small bilateral renal cysts. STOMACH: Normal. SMALL BOWEL: No abnormal distention of the small bowel. MESENTERY: No mesenteric inflammation. No ascites. COLON: Diffuse sigmoid diverticulosis. The colon otherwise is normal. There is a large fatty ileocecal valve. IVC: Normal. RETROPERITONEUM: No retroperitoneal lymphadenopathy. PELVIC STRUCTURES: Normal bladder. Patient is status post appendectomy. SOFT TISSUES ABDOMEN: The anterior abdominal wall is normal. SOFT TISSUE CHEST: The extrathoracic soft tissues are normal. BONES: Degenerative changes of the lumbar spine as well as the symphysis pubis. Prior open reduction and internal fixation of the bilateral proximal femurs. Diffuse osteopenia of the visualized dorsal and lumbar vertebrae with multiple vertebrae with loss of height suggestive of compression fractures. CT/CTA Chst, Abd, Pel W and/or WO IMPRESSION: Stable bilateral pulmonary nodules as described with scarring and bronchiectasis. Stable right ureteral stent. Scattered atherosclerotic changes of the thoracic and abdominal aorta. Normal contrast-enhanced CT of the abdomen and pelvis. Electronically Signed: Andres Rojas MD at 11:40 EST ,
--- NOTE | 2024-02-10 10:06 | EX.ED.DYSGE1 ---
HPI History of Present Illness Chief Complaint: Chest Other Detail of Chief Complaint: Left side pain Informant: patient Narrative Narrative: Patient presents with complaint of pain underneath the left ribs that started 4 days ago. Pain worse with certain movements. Does not seem to be worse with breathing. Patient states he quit smoking 5 years ago[address] Patient sees Dr. Flynn of pulmonology and states that he has had 2 PET scans in the last 2 months. Initially was told the first PET scan had some abnormality on his we got a second scan but has not heard the results of the second scan back. Patient denies fevers or chills or sweats. He tells me is always a little bit short of breath. Also recently had a right ureteral stent placed by his urologist which he chronically has a stent to that side. Last stent was placed about a week ago. He denies urinary symptoms. PFSH PFSH Medical History Chronic cough Hx of fracture of hip History of renal disease Former smoker Vitamin D insufficiency Abnormal results of thyroid function studies Loss of hearing Wears glasses Wears partial dentures Cancer Alcohol use Arthritis Low iron Back pain Heartburn Shortness of breath on exertion History of edema History of SIADH Chronic bronchitis Hydronephrosis Former smoker Closed intertrochanteric fracture of left femur Kidney failure Prostate cancer Hyponatremia Prostatic cancer Home Medications ?Medication ?Instructions ?Recorded ?Last Taken ?Type oxycodone-acetaminophen 5 mg-325 1 tab PO Q6H PRN PRN Pain 3 days 01/31/24 Unknown Rx mg tablet #12 TABLETS ciprofloxacin HCl 500 mg tablet 500 mg PO BID #10 tabs 02/03/24 Unknown Rx (Cipro) hydrocodone-acetaminophen 5-325mg 1 tab PO Q4H PRN PRN Pain 2 days 02/10/24 Unknown Rx 5mg-325mg #12 TABLETS Allergy/AdvReac Type Severity Reaction Status Date / Time No Known Allergies Allergy Verified 02/03/24 13:04 Family History Other Heart disease Surgical History History of cystoscopy Hx of cystoscopy History of open reduction and internal fixation (ORIF) procedure History of open reduction and internal fixation (ORIF) procedure History of transurethral resection of prostate Status post appendectomy History of renal stent H/O hernia repair Social History household members: spouse and other details: 2 st0ry house. He sleeps downstairs in a recliner. 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 Tobacco: How many years used: 67 how long ago did patient quit smoking: He quit in 2019 alcohol intake: current alcohol intake frequency: holidays/special occasions only substance use type: does not use ROS ROS ED Review of Systems ROS Unobtainable: other Constitutional Constitutional ED: Reports lethargy; Denies chills, fever(s), sweats or weight loss Eyes Eyes: Denies blurry vision, change in vision or diplopia ENT ENT ED: Denies rhinorrhea or sore throat Cardiovascular Cardiovascular: Reports chest pain; Denies orthopnea or racing heartbeat Respiratory/Chest Respiratory/Chest: Denies cough, dyspnea, dyspnea on exertion, orthopnea or sputum Gastrointestinal Gastrointestinal: Reports abdominal pain; Denies diarrhea, nausea or vomiting Genitourinary Genitourinary ED: Denies dysuria, hematuria or urinary frequency Musculoskeletal Musculoskeletal: Denies arthralgias, back pain, myalgias or neck pain Integumentary Denies abscess, Abrasions or rash Neurologic Neurologic: Denies headache(s) or weakness Psychiatric Psychiatric: Denies anxiety, depression or suicidal thoughts Endocrine Endocrinology: Denies polydipsia, polyphagia or polyuria Hematologic/Lymphatic Hematologic/Lymphatic: Denies easy bleeding, easy bruising or lymphadenopathy Allergic/Immunologic Allergic/Immunologic ED: Denies mouth swelling, tongue swelling or urticaria EXAM Physical Exam Const Vital Signs: 02/10/24 09:46 02/10/24 09:47 02/10/24 11:46 Temperature 97.7 F L Temperature Source Oral Pulse Rate 72 71 Respiratory Rate 16 18 Respiratory Effort Normal Blood Pressure 128/51 H 118/68 Blood Pressure Mean 76 84 Pulse Ox 99 Oxygen Delivery Method Room Air Positive well nourished and well developed General Appearance ED: well developed and NAD HEENT Reports TM's clear and moist mucous membranes normocephalic and atraumatic; Negative for trauma or tenderness Tympanic Membrane ED: Yes TM's clear Eyes PERRL and EOMs intact bilaterally General Eye ED: Negative for pale conjunctiva or scleral icterus Neck no lymphadenopathy, supple and no JVD General: Negative for tenderness Chest Wall inspection of chest normal and palpation of chest normal Chest: Negative for tenderness Resp normal respiratory effort and clear to auscultation bilaterally Effort and Inspection: Negative for respiratory distress or pain with movement Auscultation: Negative for rhonchi, wheezes or diminished lung sounds Cardio regular rate, regular rhythm, S1 normal heart sound, S2 normal heart sound and no murmurs Peripheral Pulses: pulses 2+ throughout GI normal to inspection, nondistended, normoactive bowel sounds, soft to palpation, non-distended and no masses GI Narrative: Mild tenderness over left upper quadrant and epigastric region. This does not completely reproduce his pain. There is no rebound, rigidity, or. No signs. No mass palpated. Back/Spine no CVA tenderness and no thoracic nor lumbar tenderness Extremity normal to inspection General Extremety ED: Negative for edema General Extremity: Negative for edema Neuro oriented x3, CN's II-XII intact bilaterally, no sensory deficits noted and gait normal Sensorium / Orientation: awake, alert, oriented to person, oriented to place and oriented to time Motor Exam: strength 5/5 throughout and strength abnormal Psych mental status grossly normal Skin no rashes or lesions noted and no wounds MDM MDM MDM Narrative Medical decision making narrative: Patient presents with upper abdomen pain that is at times positional at times worse with certain deep breaths. There are certain positions he can get into that he has no pain whatsoever. He has had no fever and no vomiting. He denies blood in his stool or black tarry stool. Does have remote history of prostate cancer. He has had prior appendectomy and prior hernia repair. Currently has a renal stent on the right. In the differential would be bowel obstruction or bowel perforation versus peptic ulcer disease or inflammatory bowel disease. Also based on the location of the pain is unclear if there could be a lung etiology. PE would be in the differential. IV line established. CBC with differential obtained showed a white count of 4.8 with hemoglobin 12.8 and platelet count of 233. Chemistries unremarkable. LFTs were normal. Lipase normal at 20. Urinalysis normal. EKG obtained arrival showed a sinus rhythm with rate of 68 bpm with no acute ST segment changes. CTA of the chest abdomen and pelvis obtained showed stable bilateral pulmonary nodules with scarring and bronchiectasis. He had a stable right ureteral stent and scattered atherosclerotic changes of the thoracic and abdominal aorta. At this point etiology of his pain unclear. Discussed results with patient and family members. I will write him a prescription for [place] for pain. He is advised to take it with food and take a daily stool softener. Advised to follow-up with his primary care physician within next 3 to 5 days. Patient to return if worsening pain, fever, vomiting, or condition should worsen anyway Lab Data Attestation: I reviewed the patient's lab results. Labs: Laboratory Results - last 24 hr 02/10/24 02/10/24 10:14 11:18 WBC 4.8 RBC 4.10 L Hgb 12.8 L Hct 39.2 L MCV 95.6 H MCH 31.2 MCHC 32.7 RDW Std Deviation 45.5 H RDW Coeff of Michael 13.0 Plt Count 233 MPV 8.8 Immature Gran % (Auto) 1.500 H Neut % (Auto) 73.7 H Lymph % (Auto) 14.2 L Pender % (Auto) 7.5 Eos % (Auto) 2.3 Baso % (Auto) 0.8 Absolute Neuts (auto) 3.5 Absolute Lymphs (auto) 0.68 L Nucleated RBC % 0 Sodium 137 Potassium 3.7 Chloride 103 Carbon Dioxide 28.0 Anion Gap 6 BUN 17 Creatinine 0.99 Est GFR (MDRD) Af Amer 92 Est GFR (MDRD) Non-Af 76 BUN/Creatinine Ratio 17.2 Glucose 93 Calcium 8.6 Total Bilirubin 0.30 AST 17 ALT 16 Alkaline Phosphatase 126 H Total Protein 6.8 Albumin 2.8 L Globulin 4.0 Albumin/Globulin Ratio 0.7 L Lipase 20 Urine Color Yellow Urine Clarity Clear Urine pH 7.0 Ur Specific [place] 1.010 Urine Protein 100 H Urine Glucose (UA) Normal Urine Ketones Negative Urine Occult Blood 150 H Urine Nitrite Negative Urine Bilirubin Negative Urine Urobilinogen 1 H Ur Leukocyte Esterase 100 H Urine RBC 5-10 SEEN Urine WBC 5-10 SEEN Ur Squamous Epith Cells 0 SEEN Urine Bacteria 0 SEEN Urine Mucus 0 SEEN Radiography Diagnostic Testing: Clinical Impression(s) from Imaging Studies Chest/Abdomen/Pelvis CTA 02/10/24 10:05 IMPRESSION: Stable bilateral pulmonary nodules as described with scarring and bronchiectasis. Stable right ureteral stent. Scattered atherosclerotic changes of the thoracic and abdominal aorta. Normal contrast-enhanced CT of the abdomen and pelvis. Electronically Signed: Andres Rojas MD at 11:40 EST , EKG Initial EKG: Attestation: I personally reviewed and interpreted this EKG as follows: Comments: Sinus rhythm with ventricular rate of 68 bpm with no acute ST segment changes Discharge Plan Triage Chief Complaint: Chest Other ED Provider: Justin Aldrich Dx/Rx/DC Orders Clinical Impression: Abdominal pain Instructions: ED Abdominal Pain Unkn Cause Male... Prescriptions: New hydrocodone-acetaminophen 5-325 mg tablet 1 tab PO Q4H PRN PRN (Reason: Pain) 2 Days Qty: 12 0RF No Action oxycodone-acetaminophen 5-325 mg tablet 1 tab PO Q6H PRN PRN (Reason: Pain) 3 Days Qty: 12 0RF ciprofloxacin HCl [Cipro] 500 mg tablet 500 mg PO BID Qty: 10 0RF Primary Care Provider: Johnny Shelton Referrals: Johnny Shelton DO [Primary Care Provider] - 3-5 Days Print Language: Nigerien Disposition Disposition: Home, Self Care
[2024-02-10 10:27] LABS: Absolute Lymphocyte Count 0.68 X10^3/uL (0.83-4.51); Absolute Neutrophil Count 3.5 X10^3/uL (2.0-7.7); Basophil# 0.04 X10^3/uL; Basophil% 0.8 % (0-1); Eosinophil# 0.11 X10^3/uL; Eosinophils% 2.3 % (0-5); Hematocrit 39.2 % (40-54); Hemoglobin 12.8 g/dL (13.0-16.5); Lymphocyte # 0.68 X10^3/ul (0.83-4.51); Lymphocyte % 14.2 % (19-41); Mean Corp Hgb Conc 32.7 g/dL (32-36); Mean Corpuscular Hgb 31.2 pg (27.0-32.0); Mean Corpuscular Volume 95.6 fL (80-94); Mean Platelet Vol. 8.8 fl (6.2-12.0); Monocyte# 0.36 X10^3/uL; Monocyte% 7.5 % (0-10); NRBC Flagged by Analyzer 0 % (0-5); Neutrophil # 3.53 X10^3/uL (2.7-7.7); Neutrophil % 73.7 % (47-70); Platelet Count 233 K/mm3 (150-450); RBC Distribution Width SD 45.5 fl (35.1-43.9); White Blood Count 4.8 K/mm3 (4.4-11.0)
[2024-02-10 11:02] LABS: ALB/GLOB Ratio 0.7 RATIO (0.9-2.4); AST(SGOT) 17 U/L (15-37); Alanine Aminotransfer ALT/SGPT 16 U/L (16-61); Albumin, Serum 2.8 g/dL (3.2-5.0); Alkaline Phosphatase 126 U/L (45-117); Anion Gap 6 (5-15); BUN 17 mg/dL (7-18); BUN/Creat Ratio 17.2 RATIO (10-20); Calcium,Total 8.6 mg/dL (8.5-10.1); Chloride 103 mmol/L (98-107); Creatinine, Serum 0.99 mg/dL (0.70-1.30); EST Glomerular Filtration Rate 76 mL/min (>60); Est Glom Filt Rate - Afr Amer 92 mL/min (>60); Glucose 93 mg/dL (74-106); Lipase 20 U/L (13-75); Potassium 3.7 mmol/L (3.5-5.1); Protein, Total 6.8 g/dL (6.4-8.2); Sodium Level 137 mmol/L (136-145)
[2024-02-10 11:22] LABS: Bacteria 0 SEEN /hpf (None Seen); Mucous, Urine 0 SEEN /hpf (<or=2+); Squamous Epithelial Cells - UA 0 SEEN /hpf (0-5)
[2024-02-10 11:26] LABS: Color, Urine Yellow (Yellow); Glucose, Dipstick Normal (Normal); Ketone-Dipstick Negative (Negative); Leukocyte Esterase-Dipstick 100 /ul (Negative); Nitrite-Dipstick Negative (Negative); Occult Blood-Urine 150 /ul (Negative); Protein-Dipstick 100 mg/dl (Negative); Urine Bilirubin Dipstick Negative (Negative); Urine Clarity Clear (Clear); Urine Urobilinogen 1 mg/dl (Normal)
[2024-02-10 11:37] LABS: Red Blood Cells-Urine 5-10 SEEN /hpf (0-5); White Blood Cells 5-10 SEEN /hpf (0-5)
[2024-02-10 11:46] VITALS: BP 118/68; PULSE 71; RESP 18
[2024-02-10 12:11] VITALS: BP 118/68; PULSE 71; RESP 18; TEMP 36.6; O2SAT 99
== END 2024-02-10 12:15 | disposition home or self-care (01) ==
PROVIDERS: Emergency Provider Emergency Medicine; PCP Family Medicine; Visit Provider Emergency Medicine
DX: R10.9 Unspecified abdominal pain (principal); Z87.891 Personal history of nicotine dependence
CPT/HCPCS: 71275; 74174; 80053; 81001; 83690; 85025; 93005; 99283; Q9967; A4216

== ENCOUNTER 2024-02-24 07:52 | Outpatient (RCR) | payer MEDICARE, OTHER, SELFPAY ==
[2021-09-09 14:02] VITALS: BMI 19.5
[2024-02-24 08:05] VITALS: BP 92/42; PULSE 78; RESP 18; TEMP 36.3; BMI 17.2
--- NOTE | 2024-02-24 11:51 | PCM.WC.HP ---
History of Present Illness Date of Service: 02/24/24 Chief Complaint: Stage 2 pressure ulcer left buttock History of Wound: Kofi is a very pleasant 87 yo gentleman that presents to the wound healing center today for evaluation and treatment of a left buttock ulcer that has been present for many years and comes and goes. He has used many topical treatments including calmoseptine and Aquaphor to the area. He sits on a donut cushion when he is sitting on his couch which is where he spends the majority of his time during the day. He has lost approx. 40 lbs over the last several years which he attributes to some of the cause of the ulcer as he does not have as much subcutaneous tissue between his skin and his ischium. Looking at his labs his albumin's are low. He does eat well but does not like protein shakes or yogurt. He is currently drinking boost. He is otherwise healthy and does not have any chronic medical problems. He was referred here by a family . There has been no wound cultures done on the wound and he is currently not on any antibiotic treatment. He denies drainage but states the the area is painful unless it is covered with a bandage. [facility] Medical History Chronic cough Hx of fracture of hip History of renal disease Former smoker Vitamin D insufficiency Abnormal results of thyroid function studies Loss of hearing Wears glasses Wears partial dentures Cancer Alcohol use Arthritis Low iron Back pain Heartburn Shortness of breath on exertion History of edema History of SIADH Chronic bronchitis Hydronephrosis Former smoker Closed intertrochanteric fracture of left femur Kidney failure Prostate cancer Hyponatremia Prostatic cancer Allergy/AdvReac Type Severity Reaction Status Date / Time No Known Allergies Allergy Verified 02/24/24 08:25 Family History Other Heart disease Surgical History History of cystoscopy Hx of cystoscopy History of open reduction and internal fixation (ORIF) procedure History of open reduction and internal fixation (ORIF) procedure History of transurethral resection of prostate Status post appendectomy History of renal stent H/O hernia repair Social History household members: spouse and other details: 2 st0ry house. He sleeps downstairs in a recliner. 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 Tobacco: How many years used: 67 how long ago did patient quit smoking: He quit in 2019 alcohol intake: current alcohol intake frequency: holidays/special occasions only substance use type: does not use ROS Constitutional Constitutional: Reports systems reviewed and no addt'l complaints, except as documented Eyes Eyes: Reports systems reviewed and no addt'l complaints, except as documented ENT HEENT: Reports systems reviewed and no addt'l complaints, except as documented Cardiovascular Cardiovascular: Reports systems reviewed and no addt'l complaints, except as documented Respiratory/Chest Respiratory/Chest: Reports systems reviewed and no addt'l complaints, except as documented Gastrointestinal Gastrointestinal: Reports systems reviewed and no addt'l complaints, except as documented Genitourinary Genitourinary: Reports systems reviewed and no addt'l complaints, except as documented Musculoskeletal Musculoskeletal: Reports systems reviewed and no addt'l complaints, except as documented Integumentary Integumentary: Reports wounds and other Details: Rather large 4 x 4 open area with a depth of 0.2 on his left buttocks cheek with darkened erythema around it. Neurologic Neurologic: Reports systems reviewed and no addt'l complaints, except as documented Psychiatric Psychiatric: Reports systems reviewed and no addt'l complaints, except as documented Endocrine Endocrinology: Reports systems reviewed and no addt'l complaints, except as documented Hematologic/Lymphatic Hematologic/Lymphatic: Reports systems reviewed and no addt'l complaints, except as documented Allergic/Immunologic Allergic/Immunologic: Reports systems reviewed and no addt'l complaints, except as documented Vital Signs Vital Signs Vital Signs: 02/24/24 08:05 Temperature 97.4 F L Temperature Source Oral Pulse Rate 78 Respiratory Rate 18 Blood Pressure 92/42 L Blood Pressure Mean 58 Blood Pressure Source Monitor Weight Weight: 116 lb 11.779 oz Body Mass Index (BMI) 17.2 Physical Exam Const oriented x3 General Appearance: cooperative Exam Limitations: no limitations HEENT normocephalic Head and Scalp: normal to inspection General Ear: hearing grossly impaired and other Other Details: Wears hearing aid External Ear: external ears normal Eyes General Eye: normal appearance of both eyes Neck full ROM Resp normal respiratory effort Effort and Inspection: able to speak in complete sentences Auscultation: clear to auscultation bilaterally, diminished lung sounds and other Loose cough clears throat Cardio regular rate and regular rhythm Palpation: normal PMI Rate: regular rate Rhythm: regular rhythm GI Palpation: soft and no hepatosplenomegaly external exam normal Back/Spine Cervical Spine: cervical ROM normal Thoracic Spine / Upper Back: normal to inspection Lumbar Spine / Lower Back: normal to inspection Extremity General Extremity: normal exam except as noted Skin Skin Narrative: Wounds noted on left buttocks open positive depth darkened erythema around the edge Lesions: no lesions Rashes: rashes noted Wounds: wounds noted Wound Narrative: Open wound left buttocks Neuro oriented x3 Meningeal Signs: no meningeal signs Speech: speech normal Psych Appearance: grossly normal Speech: normal speech Thought Content: normal thought content Judgement: judgement good Debridement Note Debridement Note Wound debrided: Left buttocks cluster Laterality: Left Wound Grade/Stage: Decubitus ulcer stage II Type of Debridement: Excisional debridement Anesthesia Used: 5% Lidocaine Gel Depth: Down to and including healthy tissue and in the subcutaneous layer Percentage of wound debrided: 100 Instrument Used: 7mm curette Tissue Removed: Fibrin Severity: Fat Layer Exposed Amount of bleeding with debridement: Mild Bleeding Controlled with: Compression and gauze Patient tolerated procedure: Patient tolerated procedure well Post-Debridement Measurements and Additional Note: Post-Debridement Measurements/Treatment DEXTER - Nurse 1 - General Ulcer Assessment Start: 02/24/24 08:00 Freq: Status: Active Protocol: MAGALY Activity Type Activity Date Activity User E-sign Co-sign Detail Recorded Client Recorded Date Recorded By Document 02/24/24 08:05 GIGI [id number] 02/24/24 08:22 GIGI 02/24/24 08:05 - Today's Visit Information Type of service Initial Visit Arrival Mode Ambulatory,Cane Transfer Assistance None Patient Identification Verified (Name & Yes ) Patient Requires Transmission-Based No Precautions Height and Weight Height 5 ft 9 in Weight 116 lb 11.779 oz Weight in Pounds 116.7 lbs Body Mass Index (BMI) 17.2 BMI Classification Underweight BSA - Ki 1.64 Vital Signs Temperature (97.8 F-99.1 F) 97.4 F L Temperature Source Oral Pulse Rate (60-100) 78 Pulse Location Monitor Respiratory Rate (12-18) 18 Respiratory rate source Observation Blood Pressure (90/60-120/80) 92/42 L Blood Pressure Mean 58 Source Monitor Pain Scale: 0-10 Numeric Is Patient Pain Free? Yes Communication Assessment Preferred language Citizen Of [place] Able to Read Yes Able to Write No Right Hearing Abillity Use of Hearing Aid Left Hearing Abillity Use of Hearing Aid Visual Assistive Devices Glasses Teaching Assessment Preferences Verbal,Written, Demonstration Barriers to Learning None Readiness To Learn Excellent Willingness to Engage in Self Management Med Activies Readiness to Engage in Self Management Med Activities Anxiety Level Calm Cooperation Cooperative Perception Confused Interest in Health Problem Asks Questions Education Importance Acknowledges Need Does Patient Smoke tobacco or other No substances Smoking Status Former smoker Is Patient Diabetic No Functional Assessment Recent Decline in Ability to Perform Denies Any Declines Culture/Samaritan/Plate Maker Cultural/Samaritan Needs that may affect No Treatment Plan Would you allow our the [facility] resort host to No meet you for the purpose of spiritual/ emotional support? Plate Maker to contact place of adventist No Teaching: Wound Center Dressing Your Wound -Person Taught Patient Increased protein -Person Taught Patient dressing changes -Person Taught Patient *Welcome to the Wound Center -Person Taught Patient WC - Nurse 1 - General Ulcer Measurement Start: 02/24/24 08:00 Freq: Status: Active Protocol: Activity Type Activity Date Activity User E-sign Co-sign Detail Recorded Client Recorded Date Recorded By Document 02/24/24 08:05 DL [id number] 02/24/24 08:22 DL 02/24/24 08:05 Wound Center Nurse 1 #3 L Buttock Cluster -Current Size (cm) - Length 4 -Current Size (cm) - Width 4.4 -Current Size (cm) - Depth 0.1 -Total Square Cm 17.6 -Photo Taken Yes -Classification - Thickness Full Thickness without Exposed Support Structure -Exudate Amt Medium -Exudate Type Serosanguineous -Wound Margin Distinct, Outline Attached -Granulation Amt Large (67-100%) -Granulation Quality [place] -Necrosis Amt None Present (0 %) -Structure Exposed N/A -Texture (Ela-wound Skin Appearance) Localized Edema -Moisture (Ela-wound Skin Appearance) No Abnormality -Color (Ela-wound Skin Appearance) Erythema -Temperature (Ela-wound Skin No Abnormality Appearance) (Pt Warm) -Tenderness on Palpation (Ela-wound No Skin Appearance) -Ulcer Cleansing Soap and Water -Foul Odor after Cleansing No -Anesthetic Used 5% Lidocaine Gel WC - Nurse 2 - General Ulcer CM Notes Start: 02/24/24 08:00 Freq: Status: Active Protocol: Activity Type Activity Date Activity User E-sign Co-sign Detail Recorded Client Recorded Date Recorded By Document 02/24/24 08:35 [id number] 02/24/24 08:54 CP 02/24/24 08:35 Wound Center Nurse 2 -Time 08:36 -Correct Patient Yes -Correct Side, Site, Position Yes -Correct Procedure Yes -Procedure Performed Yes -Type of Procedure Debridement -Clinical Debridement Subcutaneous -Tissue Removed Subcutaneous -Post Debridement (cm) - Length 5 -Post Debridement (cm) - Width 2 -Post Debridement (cm) - Depth 0.2 -Total Square (Post) (cm) 10 -Area of Debridement (cm) - Length 5 -Area of Debridement (cm) - Width 2 -Total Square (Area) (cm) 10 -Tunneling No -Undermining/Tunneling No -Circular Undermining No -Wound/Ulcer Outcome Not Healed -Bleeding Controlled with Pressure -Treatment Response Procedure Tolerated Well -Debridement - Subq, 1st 20sq cm Yes Pain Scale: 0-10 Numeric Is Patient Pain Free? No buttock -Description Sharp -Duration (hours) Acute -Pain Behavior Facial Grimacing -Pain Aggravating Factors Debridement -Alleviating Factors/Interventions Distraction -Effectiveness of Alleviating Factor/ Minimally Intervention effective WC - Nurse 3 - General Ulcer D/C NN Start: 02/24/24 08:00 Freq: Status: Active Protocol: Activity Type Activity Date Activity User E-sign Co-sign Detail Recorded Client Recorded Date Recorded By Document 02/24/24 09:13 DL [id number] 02/24/24 09:14 DL 02/24/24 09:13 Wound Care Center Nurse 3 #3 L Buttock Cluster -Ulcer Cleansing Rinsed/ Irrigated with Saline -Foul Odor after Cleansing No -Primary Dressing Applied Fibracol Plus 4x4,Mepilex Border, NonAdherent Contact Layer -Fibracol Plus 4x4 1 -Mepilex Border 1 Treatment Response Procedure Tolerated Well Pain Scale: 0-10 Numeric Is Patient Pain Free? Yes WC - Visit Discharge Discharge Condition Stable Ambulatory Status Ambulatory,Cane Transportation Private Auto Assessment/Plan Assessment/Plan (1) Decubitus ulcer of left buttock, stage 2: CODE(S): L89.322 - Pressure ulcer of left buttock, stage 2 PLAN: Wash buttocks area with antibacterial soap pat dry and apply fibber call to wound base moistened with Adaptic and a foam dressing over top. Every day Patient is to get rid of the phone with the donut shaped and buy a gel cushion that is completely flat. Patient is to lay on the couch not sit on the couch. Follow-up in 2 weeks (2) Debility: CODE(S): R53.81 - Other malaise (3) Malnutrition: CODE(S): E46 - Unspecified protein-calorie malnutrition QUALIFIERS: Malnutrition type: protein-calorie malnutrition Protein-calorie malnutrition severity: moderate Qualified Code(s): E44.0 - Moderate protein-calorie malnutrition PLAN: Is taking boost at this point we will recheck a prealbumin follow-up in 2 weeks
[2024-02-25 04:08] LABS: Prealbumin 17 mg/dL (9-32)
--- NOTE | 2024-03-01 14:57 | WC ---
PHOTO BUTTOCKS 02/24/24
== END 2024-02-27 23:59 | disposition home or self-care (01) ==
LOC: WC 07:52
PROVIDERS: PCP Family Medicine; Referring Provider Family Medicine; Visit Provider Nurse Practitioner
DX: L89.322 Pressure ulcer of left buttock, stage 2 (principal); R53.81 Other malaise; Z87.891 Personal history of nicotine dependence
CPT/HCPCS: 11042; 36415; 84134; 99212; G0463

== ENCOUNTER 2024-03-08 23:43 | Inpatient (IN) | payer MEDICARE, OTHER, SELFPAY ==
[2021-09-09 14:02] VITALS: BMI 19.5
[2024-03-08 23:44] VITALS: BP 137/97; PULSE 121; RESP 18; TEMP 38.2; O2SAT 94; BMI 17.0
[2024-03-08 23:47] VITALS: BP 137/97; PULSE 122; RESP 16; TEMP 38.2; O2SAT 94
[2024-03-09] VITALS (11 sets, daily range): BP systolic 95–120; BP diastolic 55–96; PULSE 65–109; RESP 15–18; TEMP 36.6–37.7; O2SAT 93–99; BMI 16.7
--- NOTE | 2024-03-09 00:02 | RAD_ITS ---
EXAM: XR CHEST, 1 VIEW CLINICAL INDICATION: cough TECHNIQUE: Frontal view of the chest. COMPARISON: Single view chest 04/09/2023 FINDINGS: LUNGS AND PLEURAL SPACES: Hyperinflation. Scarring in the lung bases. No pneumothorax. No effusion. HEART: Unremarkable. Cardiac silhouette not enlarged. MEDIASTINUM: Central airways and mediastinal contour are unremarkable. BONES/JOINTS: Unremarkable. No acute fracture. SOFT TISSUES: Unremarkable. RAD/Chest 1 View (Portable) IMPRESSION: No acute findings in the chest. COPD changes, and scarring in the lung bases. Electronically Signed: Leo Art MD at 1:05 EST ,
[2024-03-09] MEDS: 0.9% Normal Saline (1000mL) 1,000 ML 999 ML IV ×2 (00:22→01:10)
[2024-03-09 00:23] LABS: Absolute Lymphocyte Count 0.46 X10^3/uL (0.83-4.51); Absolute Neutrophil Count 9.1 X10^3/uL (2.0-7.7); Basophil# 0.05 X10^3/uL; Basophil% 0.5 % (0-1); Hematocrit 38.8 % (40-54); Hemoglobin 13.1 g/dL (13.0-16.5); Lymphocyte # 0.46 X10^3/ul (0.83-4.51); Lymphocyte % 4.3 % (19-41); Mean Corp Hgb Conc 33.8 g/dL (32-36); Mean Corpuscular Hgb 30.9 pg (27.0-32.0); Mean Corpuscular Volume 91.5 fL (80-94); Mean Platelet Vol. 9.3 fl (6.2-12.0); Monocyte# 0.75 X10^3/uL; Monocyte% 7.1 % (0-10); NRBC Flagged by Analyzer 0 % (0-5); Neutrophil # 9.13 X10^3/uL (2.7-7.7); Neutrophil % 86.3 % (47-70); POSITIVE DIFFERENTIAL YES; Platelet Count 286 K/mm3 (150-450); RBC Distribution Width CV 12.6 % (11.6-14.6); RBC Distribution Width SD 42.2 fl (35.1-43.9); Red Blood Count 4.24 M/mm3 (4.6-6.2); White Blood Count 10.6 K/mm3 (4.4-11.0)
[2024-03-09] MEDS: Piperacil/Tazobactam 3.375 GM in 0.9% Normal Saline (50mL MB+) 50 ML IV (00:28)
[2024-03-09] MEDS: Acetaminophen 500 MG Tablet 1000 MG PO (00:28)
[2024-03-09 00:46] LABS: AST(SGOT) 26 U/L (15-37); Alanine Aminotransfer ALT/SGPT 30 U/L (16-61); Albumin, Serum 2.8 g/dL (3.2-5.0); Alkaline Phosphatase 152 U/L (45-117); Anion Gap 6 (5-15); BUN 24 mg/dL (7-18); BUN/Creat Ratio 25.7 RATIO (10-20); Bilirubin, Direct 0.17 mg/dL (0.00-0.30); Calcium,Total 9.3 mg/dL (8.5-10.1); Chloride 95 mmol/L (98-107); Creatinine, Serum 0.93 mg/dL (0.70-1.30); EST Glomerular Filtration Rate 81 mL/min (>60); Est Glom Filt Rate - Afr Amer 98 mL/min (>60); Estimated Creatinine Clearance 40.61 ml/min; Glucose 120 mg/dL (74-106); Potassium 4.8 mmol/L (3.5-5.1); Protein, Total 7.8 g/dL (6.4-8.2); Sodium Level 128 mmol/L (136-145)
[2024-03-09 00:53] LABS: Procalcitonin 0.15 ng/mL (0.00-0.09)
[2024-03-09] MEDS: Vancomycin HCl 750 MG in 0.9% Normal Saline (250mL Bag) 250 ML 250 MG IV (01:10)
[2024-03-09 01:15] LABS: Lactic Acid 0.8 mmol/L (0.4-1.9)
[2024-03-09 02:22] LABS: Bacteria 0 SEEN /hpf (None Seen); Mucous, Urine 0 SEEN /hpf (<or=2+)
[2024-03-09 02:26] LABS: Color, Urine Yellow (Yellow); Glucose, Dipstick Normal (Normal); Ketone-Dipstick Negative (Negative); Leukocyte Esterase-Dipstick 100 /ul (Negative); Nitrite-Dipstick Negative (Negative); Occult Blood-Urine 50 /ul (Negative); Protein-Dipstick 30 mg/dl (Negative); Specific Gravity, Urine 1.005 (1.002-1.030); Urine Bilirubin Dipstick Negative (Negative); Urine Clarity Clear (Clear); Urine Urobilinogen Normal (Normal)
[2024-03-09 03:28] LABS: Red Blood Cells-Urine 5-10 SEEN /hpf (0-5); Squamous Epithelial Cells - UA 0-5 SEEN /hpf (0-5); White Blood Cells 10-25 SEEN /hpf (0-5)
--- NOTE | 2024-03-09 03:58 | EDS_ITS ---
HPI History of Present Illness Chief Complaint: Weakness Informant: patient, spouse/S.O. and family Narrative Narrative: Patient is an 88-year-old male who lives at home with his . She states he takes no medications. They report that he has been having increased generalized weakness for the past few months however in the past week his weakness has worsened to the point where he is now unable to stand and ambulate. He reports that he has congestion and cough at baseline. He states it is not worse than normal. He denies any dysuria. He states he is a chronic wound around his buttocks but sees wound care for this. As the patient is having increasing weakness to the point where he is no longer able to care for himself he was brought in for evaluation [facility] Medical History Chronic cough Hx of fracture of hip History of renal disease Former smoker Vitamin D insufficiency Abnormal results of thyroid function studies Loss of hearing Wears glasses Wears partial dentures Cancer Alcohol use Arthritis Low iron Back pain Heartburn Shortness of breath on exertion History of edema History of SIADH Chronic bronchitis Hydronephrosis Former smoker Closed intertrochanteric fracture of left femur Kidney failure Prostate cancer Hyponatremia Prostatic cancer Home Medications ?Medication ?Instructions ?Recorded ?Last Taken ?Type NK 03/08/24 Unknown History Allergy/AdvReac Type Severity Reaction Status Date / Time No Known Allergies Allergy Verified 03/08/24 23:43 Family History Mother Heart disease Father Heart disease Surgical History History of cystoscopy Hx of cystoscopy History of open reduction and internal fixation (ORIF) procedure History of open reduction and internal fixation (ORIF) procedure History of transurethral resection of prostate Status post appendectomy History of renal stent H/O hernia repair Social History household members: spouse and other details: 2 st0ry house. He sleeps downstairs in a recliner. 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 Tobacco: How many years used: 67 how long ago did patient quit smoking: He quit in 2019 alcohol intake: current alcohol intake frequency: holidays/special occasions only substance use type: does not use ROS ROS ED Constitutional Constitutional ED: Denies chills or fever(s) Eyes Eyes: Denies change in vision ENT ENT ED: Reports rhinorrhea Cardiovascular Cardiovascular: Denies chest pain Respiratory/Chest Respiratory/Chest: Reports cough; Denies dyspnea Gastrointestinal Gastrointestinal: Denies abdominal pain, diarrhea, nausea or vomiting Genitourinary Genitourinary ED: Denies dysuria Musculoskeletal Musculoskeletal: Denies myalgias Integumentary Reports other Details: Positive chronic wound left buttocks Neurologic Neurologic: Reports weakness; Denies headache(s) Hematologic/Lymphatic Hematologic/Lymphatic: Denies easy bleeding or easy bruising EXAM Physical Exam Const Vital Signs: 03/08/24 23:44 03/08/24 23:47 03/09/24 00:47 Temperature 100.8 F H 100.8 F H 99.9 F H Temperature Source Oral Oral Oral Pulse Rate 121 H 122 H 109 H Respiratory Rate 18 16 18 Blood Pressure 137/97 H 137/97 H 120/80 Blood Pressure Mean 110 110 93 Pulse Ox 94 94 93 Oxygen Delivery Method Room Air 03/09/24 01:00 03/09/24 02:00 03/09/24 03:00 Temperature 99.9 F H 98.4 F 99.1 F Temperature Source Oral Oral Oral Pulse Rate 109 H 96 87 Respiratory Rate 18 18 18 Blood Pressure 112/94 H 112/96 H 100/59 L Blood Pressure Mean 100 101 72 Pulse Ox 93 95 94 Oxygen Delivery Method Room Air Room Air Room Air 03/09/24 04:00 03/09/24 04:03 Temperature 99.1 F 99.1 F Temperature Source Oral Pulse Rate 80 86 Respiratory Rate 15 18 Blood Pressure 95/58 L 95/58 L Blood Pressure Mean 70 70 Pulse Ox 94 94 Oxygen Delivery Method Positive well nourished and well developed General Appearance ED: well developed HEENT HEENT Narrative: No tongue or lip swelling no oral lesions no airway edema or compromise Patient has cobblestoning present in the posterior pharynx consistent with sinus drainage without secondary findings to suggest infection Eyes PERRL and EOMs intact bilaterally General Eye ED: Negative for scleral icterus Neck supple Neck Narrative: No nuchal rigidity or meningeal signs noted Chest Wall palpation of chest normal Resp normal respiratory effort Resp Narrative: Breath sounds are diminished throughout with faint rhonchi noted in the right lower lobe No nasal flaring retractions tachypnea or accessory muscle use Cardio regular rhythm Rate: tachycardic and other Other Details: Tachycardic rate with regular rhythm Radial and carotid pulses are equal and symmetric GI normal to inspection, nondistended, normoactive bowel sounds, non-tender, non- distended and no masses GI Narrative: No voluntary guarding or rigidity or pulsatile mass No fluid wave noted Auscultation: normoactive bowel sounds Palpation: soft Extremity normal to inspection Extremity Narrative: No asymmetric edema no pitting edema negative Homans' sign bilaterally No signs of long bone injury No joint effusion Neuro oriented x3, CN's II-XII intact bilaterally and no sensory deficits noted Sensorium / Orientation: alert Psych mental status grossly normal Skin Skin Narrative: Patient has a grade 2 sacral decubitus ulcer present along the left side of the sacrum/buttocks without surrounding secondary findings to suggest infection. MDM MDM MDM Narrative Medical decision making narrative: Patient presented to the ER tachycardic and febrile. With this he reported increased generalized weakness over the past 7 days. As the patient is febrile and tachycardic he is triggering SIRS criteria and therefore a septic workup was performed. The patient was given over the 30 mL/kg fluid bolus as his physical exam did show changes concerning for dehydration and was medicated with Tylenol secondary to the fever. After IV hydration and Tylenol the patient's temperature resolved as well as his tachycardia. He was started on vancomycin and Zosyn with concern for potential infection. With his cough and congestion there was concern for pneumonia versus COVID versus influenza versus RSV. There is also concern for potential UTI. He does not have abdominal discomfort nor is there any organomegaly or guarding or rigidity so my concern that this is related to an intestinal infection such as colitis or diverticulitis pancreatitis or biliary issue is low and therefore did not feel the need for a CT scan of the abdomen and pelvis. Also the wound along his buttock/sacrum is chronic he follows with wound care and does not show overt signs of secondary infection so do not feel the need for a CT scan through the pelvis. Patient's white count is normal but there is mild left shift with a absolute neutrophil count of 9.1. However his lactic acid is also normal and the lack of leukocytosis or lactic acidosis go against systemic infection. Patient's chest x-ray did not reveal obvious pneumonia and his urine sample does not reveal bacteria. At this time as he is SIRS positive and is unable to ambulate I have concern for an infectious process that is not presenting at this time. Therefore do not feel it is safe for him to be discharged and I discussed the case with the hospitalist Dr. Langley. She agrees with continuing monitoring the patient while blood cultures are pending and will accept the patient to the hospital for further care. Plan of care was discussed with the patient and family and they are agreeable to it History & Record Review Discussion w/independent historian: Patient, Family and Significant other Lab Data Attestation: I reviewed the patient's lab results. Labs: Laboratory Results - last 24 hr 03/09/24 03/09/24 00:15 02:15 WBC 10.6 RBC 4.24 L Hgb 13.1 Hct 38.8 L MCV 91.5 MCH 30.9 MCHC 33.8 RDW Std Deviation 42.2 RDW Coeff of Michael 12.6 Plt Count 286 MPV 9.3 Immature Gran % (Auto) 1.800 H Neut % (Auto) 86.3 H Lymph % (Auto) 4.3 L [place] % (Auto) 7.1 Eos % (Auto) 0.0 Baso % (Auto) 0.5 Absolute Neuts (auto) 9.1 H Absolute Lymphs (auto) 0.46 L Nucleated RBC % 0 Sodium 128 L Potassium 4.8 Chloride 95 L Carbon Dioxide 27.0 Anion Gap 6 BUN 24 H Creatinine 0.93 Estim Creat Clear Calc 40.61 Est GFR (MDRD) Af Amer 98 Est GFR (MDRD) Non-Af 81 BUN/Creatinine Ratio 25.7 H Glucose 120 H Lactic Acid 0.8 Calcium 9.3 Phosphorus 3.0 Magnesium 2.1 Total Bilirubin 0.40 Direct Bilirubin 0.17 AST 26 ALT 30 Alkaline Phosphatase 152 H Total Protein 7.8 Albumin 2.8 L Globulin 5.0 H Procalcitonin 0.15 H Urine Color Yellow Urine Clarity Clear Urine pH 7.0 Ur Specific [place] 1.005 Urine Protein 30 H Urine Glucose (UA) Normal Urine Ketones Negative Urine Occult Blood 50 H Urine Nitrite Negative Urine Bilirubin Negative Urine Urobilinogen Normal Ur Leukocyte Esterase 100 H Urine RBC 5-10 SEEN Urine WBC 10-25 SEEN Ur Squamous Epith Cells 0-5 SEEN Urine Bacteria 0 SEEN Urine Mucus 0 SEEN Radiography Diagnostic Testing: Clinical Impression(s) from Imaging Studies Chest X-Ray 03/09/24 00:02 IMPRESSION: No acute findings in the chest. COPD changes, and scarring in the lung bases. Electronically Signed: Leo Art MD at 1:05 EST , Chest x-ray as interpreted by the emergency medicine physician reveals no acute infiltrate pneumothorax or pleural effusion Discharge Plan Dx/Rx/DC Orders Clinical Impression: Debility, Decubitus ulcer of left buttock, stage 2, Malnutrition, FUO (fever of unknown origin), SIRS (systemic inflammatory response syndrome) Disposition Disposition: Acute Care Hospital [facility] Discharge Date/Time: 03/09/24 04:34
--- NOTE | 2024-03-09 03:58 | PCM.HP.STD ---
HPI - General General Date of Admission: 03/09/24 Date of Service: 03/09/24 Chief Complaint: Fever, debility HPI Narrative The patient is an 88 y/o M w/ PMHx: Hx Prostate CA s/p radiation 2015 in remission, Hx Lung CA unclear type/location s/p radiation considered in remission, History SIADH w/ Chronic Hyponatremia, Former tobacco use, GERD, Chronic back pain, CKD stage II per GFR trending, COPD, chronic obstruction of the right kidney with most recent noted cystoscopy and right stent change 02/03/[address] 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 Patient does have ongoing chronic cough and dyspnea but feels as this is unchanged. Patient had denied any recent fevers but upon ED arrival was noted to be febrile. Workup in the ED included T1 100.8 orally, heart rate 121, BP 137/97, respiratory rate 18, 94% on room air with most recent repeat vital signs T99.1, heart rate 87, BP 100/59, respiratory rate 18, 94% on room air, CBC with WBC 10.6, human 13.1, platelet 286 with left shift and lymphopenia, CMP with sodium 128, chloride 95, BUN/creatinine 24/0.93, GFR 81, glucose 120, lactic acid 0.8, hepatic profile with alk phos 152 otherwise not marked appearing, procalcitonin 0.15, urinalysis with specific gravity 1.005, protein 30, occult blood 50, nitrite negative, leukocyte Estrace 100 with urine RBCs 5-10 and urine WBCs 10-25 with no urine bacteria noted, blood culture pending per ED, rapid SARS COVID/influenza/RSV PCR negative, chest x-ray with COPD type changes with scarring in the lung bases with no acute cardiopulmonary findings otherwise. In the ED patient ministered Tylenol 1000 mg p.o. x 1, IV vancomycin and IV Zosyn. Per most recent wound care evaluation patient is to continue to wash the region with antibacterial soap, pat dry, apply Fibracol to the wound base moistened with Adaptic and foam dressing over the top daily, recommended continued gel cushion, avoidance of prolonged sitting, nutrition supplementations also encouraged. [facility] Medical History Chronic cough Hx of fracture of hip History of renal disease Former smoker Vitamin D insufficiency Abnormal results of thyroid function studies Loss of hearing Wears glasses Wears partial dentures Cancer Alcohol use Arthritis Low iron Back pain Heartburn Shortness of breath on exertion History of edema History of SIADH Chronic bronchitis Hydronephrosis Former smoker Closed intertrochanteric fracture of left femur Kidney failure Prostate cancer Hyponatremia Prostatic cancer Home Medications ?Medication ?Instructions ?Recorded ?Last Taken ?Type NK 03/08/24 Unknown History Allergy/AdvReac Type Severity Reaction Status Date / Time No Known Allergies Allergy Verified 03/08/24 23:43 Family History Mother Heart disease Father Heart disease Surgical History History of cystoscopy Hx of cystoscopy History of open reduction and internal fixation (ORIF) procedure History of open reduction and internal fixation (ORIF) procedure History of transurethral resection of prostate Status post appendectomy History of renal stent H/O hernia repair Social History household members: spouse and other details: 2 stry house. He sleeps downstairs in a recliner. 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 HEENT: Eyes: No visual loss, blurred vision, double vision or yellow sclerae. Ears, Nose, Throat: No hearing loss, sneezing, congestion, runny nose or sore throat. SKIN: No rash or itching, lesions except + very staged ecchymoses, abrasion, stage II decubitus ulcer. CARDIOVASCULAR: No chest pain, chest pressure or chest discomfort, palpitations, edema, orthopnea, syncopal events. RESPIRATORY: + Chronic dyspnea and cough, occasional productive sputum which is chronic, occasional wheezing. No hemoptysis. GASTROINTESTINAL: No anorexia, nausea, vomiting, diarrhea, abdominal pain, melena, BRBPR. GENITOURINARY: No dysuria, frequency, urgency or retention. NEUROLOGICAL: + Increased fatigue, malaise. No headache, dizziness, syncope, paralysis, ataxia, numbness or tingling in the extremities, focal weakness, change in bowel or bladder control, seizure. MUSCULOSKELETAL: + muscle, back pain, joint pain or stiffness. HEMATOLOGIC: No anemia. + Easy bleeding/bruising. LYMPHATICS: No enlarged nodes. No history of splenectomy. PSYCHIATRIC: No history of depression or anxiety. ENDOCRINOLOGIC: No reports of sweating, cold or heat intolerance. No polyuria or polydipsia. ALLERGIES: No history of asthma, hives, eczema or rhinitis. Vital Signs Vital Signs Vital Signs: 03/08/24 23:44 03/08/24 23:47 03/09/24 00:47 Temperature 100.8 F H 100.8 F H 99.9 F H Temperature Source Oral Oral Oral Pulse Rate 121 H 122 H 109 H Respiratory Rate 18 16 18 Blood Pressure 137/97 H 137/97 H 120/80 Blood Pressure Mean 110 110 93 Pulse Ox 94 94 93 Oxygen Delivery Method Room Air 03/09/24 01:00 03/09/24 02:00 03/09/24 03:00 Temperature 99.9 F H 98.4 F 99.1 F Temperature Source Oral Oral Oral Pulse Rate 109 H 96 87 Respiratory Rate 18 18 18 Blood Pressure 112/94 H 112/96 H 100/59 L Blood Pressure Mean 100 101 72 Pulse Ox 93 95 94 Oxygen Delivery Method Room Air Room Air Room Air Weight Weight: 115 lb 4.8 oz Body Mass Index (BMI) 17.0 Physical Exam Narrative Physical Examination: General: Awakens to stimuli, alert during the conversation, oriented x 3, remains cooperative, laying in the ED bed, fatigued, no acute distress. Skin: Normal color, normal turgor, no icterus, no cyanosis except very staged ecchymoses, abrasions, stage II decubitus ulcer with no marked periwound erythema or drainage or foul smell. HEENT: AT/NC, EOMI, PERRLA, dry MM, no carotid bruits or JVD noted. Lungs: Diminished, greater bases, appropriate effort, no rales, ronchi or wheezing. Heart: Regular rate and rhythm; no gallop, rub audible. Abdomen: Soft, thin cachectic habitus, NTTP, ND, mildly hyperactive BS, no appreciated HSM. Extremities: No cyanosis, no marked clubbing or peripheral edema. Neurological: Awakens to stimuli, alert during the conversation, oriented as noted, cognitive function intact although mildly decreased from baseline likely from fatigue but still interactive; pupils equally reactive to light and accommodation, cranial nerves grossly normal, moving all 4 extremities, no focal deficits, strength severely globally decreased. Psychiatric: Affect appears flat, fatigued, no acute evidence of depressive or anxiety feelings. Results Lab / Micro Data 03/09/24 00:15 03/09/24 00:15 Labs: Laboratory Results - last 24 hr 03/09/24 00:15: WBC 10.6, RBC 4.24 L, Hgb 13.1, Hct 38.8 L, MCV 91.5, MCH 30.9, MCHC 33.8, RDW Std Deviation 42.2, RDW Coeff of Michael 12.6, Plt Count 286, MPV 9.3, Immature Gran % (Auto) 1.800 H, Neut % (Auto) 86.3 H, Lymph % (Auto) 4.3 L, [place] % (Auto) 7.1, Eos % (Auto) 0.0, Baso % (Auto) 0.5, Absolute Neuts (auto) 9.1 H, Absolute Lymphs (auto) 0.46 L, Nucleated RBC % 0, Sodium 128 L, Potassium 4.8, Chloride 95 L, Carbon Dioxide 27.0, Anion Gap 6, BUN 24 H, Creatinine 0.93, Estim Creat Clear Calc 40.61, Est GFR (MDRD) Af Amer 98, Est GFR (MDRD) Non-Af 81, BUN/Creatinine Ratio 25.7 H, Glucose 120 H, Lactic Acid 0.8, Calcium 9.3, Total Bilirubin 0.40, Direct Bilirubin 0.17, AST 26, ALT 30, Alkaline Phosphatase 152 H, Total Protein 7.8, Albumin 2.8 L, Globulin 5.0 H, Procalcitonin 0.15 H 03/09/24 02:15: Urine Color Yellow, Urine Clarity Clear, Urine pH 7.0, Ur Specific [place] 1.005, Urine Protein 30 H, Urine Glucose (UA) Normal, Urine Ketones Negative, Urine Occult Blood 50 H, Urine Nitrite Negative, Urine Bilirubin Negative, Urine Urobilinogen Normal, Ur Leukocyte Esterase 100 H, Urine RBC 5-10 SEEN, Urine WBC 10-25 SEEN, Ur Squamous Epith Cells 0-5 SEEN, Urine Bacteria 0 SEEN, Urine Mucus 0 SEEN Micro: Microbiology 03/09/24 00:30 Mucosa - Nose SARS-CoV-2, Influenza & RSV (PCR) - Final Imaging Radiology Impression Chest X-Ray 03/09/24 00:02 IMPRESSION: No acute findings in the chest. COPD changes, and scarring in the lung bases. Electronically Signed: Leo Art MD at 1:05 EST , Assessment & Plan Assessment/Plan (1) FUO (fever of unknown origin): PLAN: Plan The patient is an 88 y/o M w/ PMHx: History SIADH w/ Chronic Hyponatremia, Former tobacco use, GERD, Chronic back pain, CKD stage II per GFR trending, COPD, chronic obstruction of the right kidney with most recent noted cystoscopy and right stent change 02/03/[address] 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 #1. Fever of unclear etiology, possibly Acute Viral Syndrome with SIRS, unclear source with Adult FTT: Will admit to PCU given presentation with initial tachycardia and now mild low BP, patient with significant SIRS but no obvious source, will maintain on IV fluids with 30 cc/kg IV fluid bolus ordered per ED physician and administered broad-spectrum with IV vancomycin and IV Zosyn, pending urine culture, pending blood culture, will plan repeat chest x-ray in a.m. following overnight hydration, PT/OT/case management consulted for discharge planning, will obtain full respiratory viral panel as patient presentation certainly could be viral etiology, will hold off on immediate continuation of IV antibiotic therapy as patient just received IV vancomycin and IV Zosyn but pending findings may need to restart empiric broad-spectrum antibiotic therapy. #2. Acute on Chronic hyponatremia with suspected currently some hypovolemic component given acute on chronic with worsened status and poor intake with Hx SIADH: Admission sodium 128, chloride 95, baseline sodium has been corrected with most recent prior to this 02/10/2024 137 but primarily more recently when low has ranged 132-135, some concern for mild hypovolemic component, will judiciously hydrate and repeat CMP in AM. #3. 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 #4. Chronic Kidney Disease Stage II per GFR trending: Admission BUN/Cr 24/0.93, GFR 81, baseline renal function primarily 0.7-1.1, repeat BMP in AM. #5. Chronic COPD: Will maintain on ATC budesonide therapy, PRN albuterol, HOB, IS parameters. #6. Severe protein calorie malnutrition: Evidenced by significantly reduced BMI, obvious muscle and fat loss, nutrition consulted for recommendations. #7. Former tobacco use: Encourage continued tobacco cessation. #8. DVT prophylaxis: Heparin. #9. CODE status: Patient HCPOA and living will are not in place but his who is present would be his medical decision-maker. Discussed CODE status at length including difference between FULL code, DNR-CCA and DNR-CC status. Following discussions about the differences in these status, requested DNR-CCA, no intubation status. Advanced Care Planning Face to Face Time: 16 minutes. Charges/Coding Visit Charges Inpatient E&M: 72075 Init Hosp L2 Procedures Hospitalists Procedures: 25962 Advncd Care Plan 30 Min
[2024-03-09 04:31] LABS: Magnesium 2.1 mg/dL (1.6-2.6)
[2024-03-09] MEDS: 0.9% Normal Saline (1000mL) 1,000 ML 100 ML IV (05:00)
[2024-03-09] MEDS: Budesonide Respules 0.5 MG/2 ML AMPUL.NEB. INHALATION (07:06)
--- NOTE | 2024-03-09 07:34 | PCM.PN.HOSP ---
Reason for Visit Reason for Visit: Diagnoses Fever, unspecified (03/09/24) Subjective Subjective Feels well. Breathing better. Objective Data Objective Data Vital Signs: Vital Signs Temp Pulse Resp BP Pulse Ox O2 Del Method 36.9 C 68 16 95/55 L 96 Room Air 03/09/24 04:45 03/09/24 07:08 03/09/24 07:08 03/09/24 04:45 03/09/24 07:08 03/09/24 07:08 Oxygen Delivery Method Room Air Weight: 51.5 kg Body Mass Index (BMI) 16.7 Intake & Output: Intake and Output for Last 24 Hours 03/07/24 03/08/24 03/09/24 23:59 23:59 23:59 Intake Total 2114.2 / 2113.2 Output Total 100 / 100 Balance 2013. / 2013. Lab / Micro Data 03/09/24 06:22 03/09/24 06:22 Labs: Laboratory Results - last 24 hr 03/09/24 00:15: WBC 10.6, RBC 4.24 L, Hgb 13.1, Hct 38.8 L, MCV 91.5, MCH 30.9, MCHC 33.8, RDW Std Deviation 42.2, RDW Coeff of Michael 12.6, Plt Count 286, MPV 9.3, Immature Gran % (Auto) 1.800 H, Neut % (Auto) 86.3 H, Lymph % (Auto) 4.3 L, [place] % (Auto) 7.1, Eos % (Auto) 0.0, Baso % (Auto) 0.5, Absolute Neuts (auto) 9.1 H, Absolute Lymphs (auto) 0.46 L, Nucleated RBC % 0, Sodium 128 L, Potassium 4.8, Chloride 95 L, Carbon Dioxide 27.0, Anion Gap 6, BUN 24 H, Creatinine 0.93, Estim Creat Clear Calc 40.61, Est GFR (MDRD) Af Amer 98, Est GFR (MDRD) Non-Af 81, BUN/Creatinine Ratio 25.7 H, Glucose 120 H, Lactic Acid 0.8, Calcium 9.3, Phosphorus 3.0, Magnesium 2.1, Total Bilirubin 0.40, Direct Bilirubin 0.17, AST 26, ALT 30, Alkaline Phosphatase 152 H, Total Protein 7.8, Albumin 2.8 L, Globulin 5.0 H, Procalcitonin 0.15 H 03/09/24 02:15: Urine Color Yellow, Urine Clarity Clear, Urine pH 7.0, Ur Specific [place] 1.005, Urine Protein 30 H, Urine Glucose (UA) Normal, Urine Ketones Negative, Urine Occult Blood 50 H, Urine Nitrite Negative, Urine Bilirubin Negative, Urine Urobilinogen Normal, Ur Leukocyte Esterase 100 H, Urine RBC 5-10 SEEN, Urine WBC 10-25 SEEN, Ur Squamous Epith Cells 0-5 SEEN, Urine Bacteria 0 SEEN, Urine Mucus 0 SEEN Micro: Microbiology 03/09/24 00:30 Mucosa - Nose SARS-CoV-2, Influenza & RSV (PCR) - Final Radiography Diagnostic Testing: Radiology Impression Chest X-Ray 03/09/24 00:02 IMPRESSION: No acute findings in the chest. COPD changes, and scarring in the lung bases. Electronically Signed: Leo Art MD at 1:05 EST , Physical Exam Const alert and no apparent distress HEENT head/scalp atraumatic and moist oral mucous membranes Resp normal respiratory effort, no retractions, no use of accessory muscles and clear to auscultation bilaterally Cardio regular rate, regular rhythm, S1 normal heart sound and S2 normal heart sound GI normal to inspection, nondistended, normoactive bowel sounds, soft to palpation, non-tender and non-distended Assessment & Plan Assessment/Plan (1) FUO (fever of unknown origin): PLAN: Plan Fever COVID, influenza, RSV negative. CXR shows chronic basilar scarring. UA unremarkable. Resp panel pending. Received pip/tazo and vanc in ED. Hold off on additional abx for now. Hyponatremia known SIADH. pt received IVF and sodium improved. 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 Chronic Kidney Disease Stage II per GFR trending: Admission BUN/Cr 24/0.93, GFR 81, baseline renal function primarily 0.7-1.1, repeat BMP in AM. Chronic COPD: Will maintain on ATC budesonide therapy, PRN albuterol, HOB, IS parameters. Severe protein calorie malnutrition: Evidenced by significantly reduced BMI, obvious muscle and fat loss, nutrition consulted for recommendations. DVT prophylaxis: Heparin. He is not interested in a SNF. DC home.
[2024-03-09 07:42] LABS: Basophil# 0.06 X10^3/uL; Basophil% 0.6 % (0-1); Hematocrit 34.3 % (40-54); Hemoglobin 11.3 g/dL (13.0-16.5); Lymphocyte % 5.3 % (19-41); Mean Corp Hgb Conc 32.9 g/dL (32-36); Mean Corpuscular Volume 94.2 fL (80-94); Mean Platelet Vol. 8.8 fl (6.2-12.0); Monocyte# 0.61 X10^3/uL; Monocyte% 6.5 % (0-10); NRBC Flagged by Analyzer 0 % (0-5); Neutrophil # 8.03 X10^3/uL (2.7-7.7); Neutrophil % 85.6 % (47-70); POSITIVE COUNT YES; POSITIVE DIFFERENTIAL YES; Platelet Count 263 K/mm3 (150-450); RBC Distribution Width CV 12.6 % (11.6-14.6); RBC Distribution Width SD 43.6 fl (35.1-43.9); Red Blood Count 3.64 M/mm3 (4.6-6.2); White Blood Count 9.4 K/mm3 (4.4-11.0)
[2024-03-09 08:05] LABS: Differential Indicated SCAN CRITERIA MET
[2024-03-09 08:06] LABS: Differential Comment SCANNED
[2024-03-09 08:13] LABS: ALB/GLOB Ratio 0.6 RATIO (0.9-2.4); AST(SGOT) 18 U/L (15-37); Alanine Aminotransfer ALT/SGPT 20 U/L (16-61); Albumin, Serum 2.1 g/dL (3.2-5.0); Alkaline Phosphatase 114 U/L (45-117); Anion Gap 6 (5-15); BUN 21 mg/dL (7-18); BUN/Creat Ratio 24.9 RATIO (10-20); Calcium,Total 8.3 mg/dL (8.5-10.1); Chloride 103 mmol/L (98-107); Creatinine, Serum 0.84 mg/dL (0.70-1.30); EST Glomerular Filtration Rate 91 mL/min (>60); Est Glom Filt Rate - Afr Amer 110 mL/min (>60); Estimated Creatinine Clearance 44.28 ml/min; Globulin 3.8 g/dL (2.2-4.2); Glucose 104 mg/dL (74-106); Potassium 4.2 mmol/L (3.5-5.1); Protein, Total 5.9 g/dL (6.4-8.2); Sodium Level 134 mmol/L (136-145)
--- NOTE | 2024-03-09 10:10 | CASEMGMT ---
NIMCO ROSENBERG Assessment: NIMCO ROSENBERG to room to meet with pt for initial transition planning/care coordination assessment. NIMCO ROSENBERG introduced self and role at [facility], pt voices understanding and consents to assessment. Pt is A&O and answers all questions appropriately. Care providers, pharmacy, and demographics verified/updated. PCP: Dr Shelton Specialists: Dr Hollingsworth, uro. Dr Guerrero, pulmonology (states he has an appt next week). Preferred Pharmacy:[facility] Insurance:[facility], [facility] Prescription Benefit: Pt states yes LNOK:Mulu Tenorio, ; Aileen Linares, dtr. Pt has 2 other daughters as well. Living Arrangements: Pt lives with in a 2 story home with 3 steps to enter. FFSU. Denies difficulty w/the stairs. Pt reports he was indep w/ADL's. DME:grab bar in the bathroom, raised toilet seat, cane. Pt states he has a walker that he just started using 2-3 days ago d/t weakness. He states he has a treadmill that he wants to start using again. HHC/SNF:Pt states he had [facility] HHC in the past but he did not feel it was important and told them not to come back. He has been to [facility] x 2 (2021 and 2022). Disussed discharge planning. Pt does not want to go to a SNF, he wishes to discharge home. He also declines wanting HHC or OP therapy, stating, No more therapy. Pt states no concerns with going home at time of dc. Pt states no further concerns/needs. CM to follow. Therapy evals pending. Advised pt to ask CM if any further question/concerns/needs arise, voices understanding. Pt goal: Home Plan: TBD by progress w/therapy. Amira ENGEL RN, CM
--- NOTE | 2024-03-09 10:10 | RAD_ITS ---
STUDY: X-RAY CHEST REASON FOR EXAM: Male, 88 years old. Fever TECHNIQUE: Single AP portable view of the chest. COMPARISON: Comparison is made with prior examination dated March 09, 2024 at 12:37 AM. FINDINGS: EKG electrodes are seen. Progressive infiltration in the right lower lobe suggestive of a pneumonic infiltration superimposed on bibasilar scarring. There is no demonstrated pleural abnormality. Normal size heart. Normal mediastinum and bryan. Normal visualized pulmonary arteries. There is atherosclerotic calcification of the aortic arch with tortuosity. There are diffuse degenerative changes of the visualized thoracic spine. Normal visualized ribs, clavicles, and shoulders. There is no demonstrated abnormality of the visualized soft tissue structures of the upper abdomen. RAD/Chest 1 View (Portable) IMPRESSION: Right lower lobe infiltrate superimposed on basilar scarring. Electronically Signed: Andres Rojas MD at 10:23 EST ,
[2024-03-09] MEDS: Heparin Injection (Vial) 5,000 UNIT/ML VIAL 5000 UNIT SC (10:31)
[2024-03-09] MEDS: Ensure Plus High Protein 120 ML LIQUID PO (12:42)
[2024-03-09] MEDS: Menthol/Lanolin/Calamine/Znox 113 GM Tube 1 APPLIC TOPICAL (12:42)
--- NOTE | 2024-03-09 13:44 | WOUNDNOTE ---
wound photo: left buttock
--- NOTE | 2024-03-09 14:08 | DS.PCM_ITS ---
Providers Date of Admission: 03/09/24 Primary Care Physician: Dr. Johnny Shelton, DO Consultations 03/09/24 04:45 Consult: Onc/Wound/entertainment musician Routine Comment: Reason for Consult:: Stage II buttock decub Reason For Visit: SIRS, FUO Diagnosis Discharge Diagnosis (1) FUO (fever of unknown origin): Status: Acute Code(s): R50.9 - Fever, unspecified Plan Fever * COVID, influenza, RSV negative. CXR shows chronic basilar scarring. UA unremarkable. Resp panel pending. * Received pip/tazo and vanc in ED. Hold off on additional abx for now. Hyponatremia * known SIADH. * pt received IVF and sodium improved. 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 * Chronic Kidney Disease Stage II per GFR trending: Admission BUN/Cr 24/0.93, GFR 81, baseline renal function primarily 0.7-1.1, repeat BMP in AM. * Chronic COPD: Will maintain on ATC budesonide therapy, PRN albuterol, HOB, IS parameters. * Severe protein calorie malnutrition: Evidenced by significantly reduced BMI, obvious muscle and fat loss, nutrition consulted for recommendations. DVT prophylaxis: Heparin. He is not interested in a SNF. NM home. Patient improved much faster than initially anticipated. Medications at Discharge Home Medications NK 03/08/24 Hospital Course Operations None Procedures None Weight / BMI Weight Weight: 51.5 kg Body Mass Index (BMI) 16.7 ABG / Lab / Microbiology Data 03/09/24 06:22 03/09/24 06:22 Laboratory: Laboratory Results - last 24 hr 03/09/24 00:15: WBC 10.6, RBC 4.24 L, Hgb 13.1, Hct 38.8 L, MCV 91.5, MCH 30.9, MCHC 33.8, RDW Std Deviation 42.2, RDW Coeff of Michael 12.6, Plt Count 286, MPV 9.3, Immature Gran % (Auto) 1.800 H, Neut % (Auto) 86.3 H, Lymph % (Auto) 4.3 L, [place] % (Auto) 7.1, Eos % (Auto) 0.0, Baso % (Auto) 0.5, Absolute Neuts (auto) 9.1 H, Absolute Lymphs (auto) 0.46 L, Nucleated RBC % 0, Sodium 128 L, Potassium 4.8, Chloride 95 L, Carbon Dioxide 27.0, Anion Gap 6, BUN 24 H, Creatinine 0.93, Estim Creat Clear Calc 40.61, Est GFR (MDRD) Af Amer 98, Est GFR (MDRD) Non-Af 81, BUN/Creatinine Ratio 25.7 H, Glucose 120 H, Lactic Acid 0.8, Calcium 9.3, Phosphorus 3.0, Magnesium 2.1, Total Bilirubin 0.40, Direct Bilirubin 0.17, AST 26, ALT 30, Alkaline Phosphatase 152 H, Total Protein 7.8, Albumin 2.8 L, G lobulin 5.0 H, Procalcitonin 0.15 H 03/09/24 02:15: Urine Color Yellow, Urine Clarity Clear, Urine pH 7.0, Ur Specific [place] 1.005, Urine Protein 30 H, Urine Glucose (UA) Normal, Urine Ketones Negative, Urine Occult Blood 50 H, Urine Nitrite Negative, Urine Bilirubin Negative, Urine Urobilinogen Normal, Ur Leukocyte Esterase 100 H, Urine RBC 5-10 SEEN, Urine WBC 10-25 SEEN, Ur Squamous Epith Cells 0-5 SEEN, Urine Bacteria 0 SEEN, Urine Mucus 0 SEEN 03/09/24 06:22: WBC 9.4, RBC 3.64 L, Hgb 11.3 L, Hct 34.3 L, MCV 94.2 H, MCH 31.0, MCHC 32.9, RDW Std Deviation 43.6, RDW Coeff of Michael 12.6, Plt Count 263, MPV 8.8, Immature Gran % (Auto) 2.000 H, Neut % (Auto) 85.6 H, Lymph % (Auto) 5.3 L, [place] % (Auto) 6.5, Eos % (Auto) 0.0, Baso % (Auto) 0.6, Absolute Neuts (auto) 8.0 H, Absolute Lymphs (auto) 0.50 L, Nucleated RBC % 0, Differential Comment SCANNED, Sodium 134 L, Potassium 4.2, Chloride 103, Carbon Dioxide 25.0, Anion Gap 6, BUN 21 H, Creatinine 0.84, Estim Creat Clear Calc 44.28, Est GFR (MDRD) Af Amer 110, Est GFR (MDRD) Non-Af 91, BUN/Creatinine Ratio 24.9 H, Glucose 104, Calcium 8.3 L, Total Bilirubin 0.60, AST 18, ALT 20, Alkaline Phosphatase 114, Total Protein 5.9 L, Albumin 2.1 L, Globulin 3.8, A lbumin/Globulin Ratio 0.6 L Microbiology: Microbiology 03/09/24 05:35 Mucosa - Nasopharyngeal Respiratory Panel (PCR) - Final 03/09/24 00:30 Mucosa - Nose SARS-CoV-2, Influenza & RSV (PCR) - Final Radiography Diagnostic Testing: Radiology Impression Chest X-Ray 03/09/24 00:02 IMPRESSION: No acute findings in the chest. COPD changes, and scarring in the lung bases. Electronically Signed: Leo Art MD at 1:05 EST , Chest X-Ray 03/09/24 10:10 IMPRESSION: Right lower lobe infiltrate superimposed on basilar scarring. Electronically Signed: Andres Rojas MD at 10:23 EST , D/C Instructions Discharge Diet: No restrictions DC O2, CPAP, BIPAP Needs Additional Home O2 Discharge instructions: No DC home with Oxygen: No Meaningful Use Info Meaningful Use Meaningful Use Diagnoses (Choose all that apply): None applicable Ischemic Stroke Statin Dosing Therapy Reference: STATIN DOSE THERAPY REFERENCE: * Patients > 75 years receive moderate or high dose statin therapy. * Patients 75 years or YOUNGER should receive HIGH intensity statin dose unless contraindicated. You will be required to document reason for non-treatment if statin daily dose does not meet guidelines. HIGH DOSE STATIN THERAPY DAILY Atorvastatin > than or = to 40 mg Rosuvastatin > than or = to 20 mg Amlodipine + Atorvastatin > than or = to 2.5/40 mg Ezetimibe + Simvastatin 10/80 mg Simvastatin 80mg Discharge Plan Admission Admit Date/Time: 03/09/24 04:04 Primary Reason for Your Visit: Fever Attending Provider: Chet Ulloa Primary Care Provider: Johnny Shelton Consulting Providers: Tiff Langley Discharge Orders/Prescriptions Prescriptions: No Action NK Referrals / Follow Up: Johnny Shelton DO [Primary Care Provider] - Within 2 Weeks Disposition Disposition (needs filled in before D/C Order can be placed): Home, Self Care Charges/Coding Visit Charges Inpatient E&M: 14312 Disch Hosp
== END 2024-03-09 15:58 | disposition home or self-care (01) | DRG 864 ==
LOC: ED 03-09 03:58 → PCU 03-09 05:37
PROVIDERS: Admitting Provider Family Medicine; Emergency Provider Emergency Medicine; PCP Family Medicine
DX: R50.9 Fever, unspecified (principal); E43 Unspecified severe protein-calorie malnutrition; E87.1 Hypo-osmolality and hyponatremia; Z68.1 Body mass index [BMI] 19.9 or less, adult; L89.322 Pressure ulcer of left buttock, stage 2; Z66 Do not resuscitate; J44.9 Chronic obstructive pulmonary disease, unspecified; N18.2 Chronic kidney disease, stage 2 (mild); Z87.891 Personal history of nicotine dependence
CPT/HCPCS: 36415; 71045; 80048; 80053; 80076; 81001; 83605; 83735; 84100; 84145; 85025; 87040; 87086; 87088; 87631; 87633; 94640; 97162; 97802; 99285; J7030; J7050; P9612; A4216

== ENCOUNTER 2024-03-14 22:24 | Emergency (ER) | payer MEDICARE, OTHER, SELFPAY ==
[2021-09-09 14:02] VITALS: BMI 19.5
[2024-03-14 22:30] VITALS: BP 149/105; PULSE 80; RESP 24; TEMP 36.7; O2SAT 91; O2SAT 92
[2024-03-14 22:48] LABS: Absolute Lymphocyte Count 0.56 X10^3/uL (0.83-4.51); Absolute Neutrophil Count 10.3 X10^3/uL (2.0-7.7); Basophil# 0.04 X10^3/uL; Basophil% 0.3 % (0-1); Hematocrit 35.9 % (40-54); Hemoglobin 11.9 g/dL (13.0-16.5); Lymphocyte # 0.56 X10^3/ul (0.83-4.51); Lymphocyte % 4.6 % (19-41); Mean Corp Hgb Conc 33.1 g/dL (32-36); Mean Corpuscular Hgb 30.3 pg (27.0-32.0); Mean Corpuscular Volume 91.3 fL (80-94); Mean Platelet Vol. 8.4 fl (6.2-12.0); Monocyte# 1.01 X10^3/uL; Monocyte% 8.4 % (0-10); NRBC Flagged by Analyzer 0 % (0-5); Neutrophil # 10.27 X10^3/uL (2.7-7.7); Neutrophil % 85.1 % (47-70); POSITIVE DIFFERENTIAL YES; Platelet Count 376 K/mm3 (150-450); RBC Distribution Width CV 12.3 % (11.6-14.6); RBC Distribution Width SD 41.4 fl (35.1-43.9); Red Blood Count 3.93 M/mm3 (4.6-6.2); White Blood Count 12.1 K/mm3 (4.4-11.0)
[2024-03-14 23:09] LABS: Anion Gap 6 (5-15); BUN 21 mg/dL (7-18); BUN/Creat Ratio 22.2 RATIO (10-20); Calcium,Total 8.7 mg/dL (8.5-10.1); Chloride 96 mmol/L (98-107); Creatinine, Serum 0.94 mg/dL (0.70-1.30); EST Glomerular Filtration Rate 80 mL/min (>60); Est Glom Filt Rate - Afr Amer 97 mL/min (>60); Glucose 123 mg/dL (74-106); Potassium 4.7 mmol/L (3.5-5.1); Sodium Level 130 mmol/L (136-145); Troponin-I HS 13 pg/mL (3.0-78.0)
--- NOTE | 2024-03-14 23:22 | EKG12_ITS ---
Test Reason : DYSRHYTHMIA Blood Pressure : */* mmHG Vent. Rate : 123 BPM Atrial Rate : 123 BPM P-R Int : 160 ms QRS Dur : 70 ms QT Int : 288 ms P-R-T Axes : 84 77 76 degrees QTcB Int : 412 ms Sinus tachycardia with Premature atrial complexes Otherwise normal ECG Confirmed by SHA CRABTREE, MAVIS ([id number]), editor trade journal ALLISON ROSADO ([id number]) on 03/17/2024 10:31:03 AM Referred By: TL Confirmed By: MAVIS DALTON MD
--- NOTE | 2024-03-14 23:26 | EX.ED.DYSGE1 ---
HPI History of Present Illness Chief Complaint: Weakness Informant: patient, spouse/S.O. and family Narrative Narrative: Presents by EMS from home increasing weakness. States he has filled drained. He does not take any daily medication. Chronic cough with production. Daughter reports went up to the restroom 4 times yesterday. Denies dysuria. Ambulating at home up till this evening. No recent vomiting or diarrhea. Reported admitted a week ago for similar however sent home the following day on antibiotics. Unclear what he is being treated for. Denies chest or abdominal pain. Brought in on 3 L nasal cannula he does not wear home oxygen. Denies fevers, chills, sweats. Prior similar symptoms: Yes PFSH PFSH Medical History Chronic cough Hx of fracture of hip History of renal disease Former smoker Vitamin D insufficiency Abnormal results of thyroid function studies Loss of hearing Wears glasses Wears partial dentures Cancer Alcohol use Arthritis Low iron Back pain Heartburn Shortness of breath on exertion History of edema History of SIADH Chronic bronchitis Hydronephrosis Former smoker Closed intertrochanteric fracture of left femur Kidney failure Prostate cancer Hyponatremia Prostatic cancer Home Medications ?Medication ?Instructions ?Recorded ?Last Taken ?Type cefdinir 300 mg capsule 300 mg PO Q12H #14 caps 03/15/24 Unknown Rx Allergy/AdvReac Type Severity Reaction Status Date / Time No Known Allergies Allergy Verified 03/09/24 05:16 Family History Mother Heart disease Father Heart disease Surgical History History of cystoscopy Hx of cystoscopy History of open reduction and internal fixation (ORIF) procedure History of open reduction and internal fixation (ORIF) procedure History of transurethral resection of prostate Status post appendectomy History of renal stent H/O hernia repair Social History household members: spouse and other details: 2 st0ry house. He sleeps downstairs in a recliner. 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 Smoking Status: Former smoker Tobacco: How many years used: 67 how long ago did patient quit smoking: He quit in 2019 alcohol intake: current alcohol intake frequency: holidays/special occasions only substance use type: does not use ROS ROS ED Constitutional Constitutional ED: Denies chills, fever(s) or sweats Eyes Eyes: Denies change in vision ENT ENT ED: Denies dysphagia or sore throat Cardiovascular Cardiovascular: Denies chest pain, leg edema, palpitations or racing heartbeat Respiratory/Chest Respiratory/Chest: Reports cough; Denies dyspnea or dyspnea on exertion Gastrointestinal Gastrointestinal: Denies abdominal pain, diarrhea, nausea or vomiting Genitourinary Genitourinary ED: Denies dysuria, hematuria or urinary frequency Musculoskeletal Musculoskeletal: Denies back pain, extremity pain or neck pain Integumentary Denies rash or wounds Neurologic Neurologic: Reports weakness; Denies headache(s) or paresthesias EXAM Physical Exam Const Vital Signs: 03/14/24 22:30 03/14/24 23:46 03/14/24 23:46 Temperature 98.1 F 101.4 F H Temperature Source Temporal Oral Pulse Rate 80 72 Respiratory Rate 24 H 19 H Respiratory Effort Respiratory Pattern Blood Pressure 149/105 H 141/76 H Blood Pressure Mean 119 97 Pulse Ox 92 94 94 Oxygen Delivery Method Nasal Cannula Room Air Room Air Oxygen Flow Rate (L/min) 3 03/14/24 23:46 03/15/24 00:00 03/15/24 01:00 Temperature 101.6 F H 101 F H Temperature Source Oral Oral Pulse Rate 119 H 121 H Respiratory Rate 19 H 31 H Respiratory Effort Short of Breath Respiratory Pattern Tachypnea Blood Pressure 145/92 H 128/92 H Blood Pressure Mean 109 104 Pulse Ox 92 96 Oxygen Delivery Method Room Air Oxygen Flow Rate (L/min) 03/15/24 02:00 03/15/24 03:00 03/15/24 04:00 Temperature 97.8 F Temperature Source Temporal Pulse Rate 97 96 106 H Respiratory Rate 20 H 20 H 19 H Respiratory Effort Respiratory Pattern Blood Pressure 90/50 L 105/49 L 108/61 Blood Pressure Mean 63 67 76 Pulse Ox 94 96 96 Oxygen Delivery Method Room Air Room Air Oxygen Flow Rate (L/min) 03/15/24 05:00 03/15/24 05:43 Temperature 98.9 F Temperature Source Pulse Rate 88 69 Respiratory Rate 18 17 Respiratory Effort Respiratory Pattern Blood Pressure 113/63 98/59 L Blood Pressure Mean 79 72 Pulse Ox 97 97 Oxygen Delivery Method Room Air Oxygen Flow Rate (L/min) Positive well nourished and well developed Constitutional Narrative: 3 L nasal cannula, he felt warm to palpation. General Appearance ED: well developed and NAD HEENT Reports moist mucous membranes normocephalic and atraumatic Eyes EOMs intact bilaterally and conjunctivae normal General Eye ED: Yes normal appearance of both eyes Neck no lymphadenopathy and supple General: Negative for tenderness Chest Wall Chest: Negative for tenderness Resp normal respiratory effort and normal air movement Effort and Inspection: symmetric chest movement; Negative for respiratory distress Cardio regular rhythm and no murmurs Rate: tachycardic Peripheral Pulses: pulses 2+ throughout GI normal to inspection, nondistended, normoactive bowel sounds and non-tender Palpation: Negative for guarding or rebound tenderness present Back/Spine no CVA tenderness and no thoracic nor lumbar tenderness Extremity normal to inspection General Extremety ED: Negative for edema or tenderness General Extremity: Negative for edema Neuro oriented x3 and no sensory deficits noted Sensorium / Orientation: awake and alert Skin Skin Narrative: Sacrum, half dollar size sacral ulcer subcutaneous exposure no exudative drainage mild erythema around the region. Sepsis Attestation Sepsis Attestation: Sepsis Ruled Out MDM MDM MDM Narrative Medical decision making narrative: Interventions / MDM: Differential diagnosis: Weakness, UTI, febrile illness Diagnosis considered but do not suspect: no cough for concerns of pneumonia. My EKG interpretation: Sinus tachycardia rate of 123, no ST changes. T wave inversions anterior leads. Similar to February 10, 2024. Imaging independently reviewed and interpreted by myself: External documents reviewed: N/A Test considered but not ordered:N/A ED course: Patient increasing weakness and fatigue symptoms. Afebrile on arrival however felt warm on palpation. Initial laboratory studies sent and urine. He is given IV fluids due to tachycardia. 0015: Recheck temp nursing 101.4. He is tachycardic. I added sepsis labs. Patient taken off oxygen was stable on room air. 0300: White count 12.1 lactic acid normal at 1.1 procalcitonin 0.2. Creatinine 0.94. Urine notes red cells white cells and rare bacteria. Positive leukocytes negative nitrites. Urine culture sent. He is given IV Rocephin. Nurse will place Mepilex dressing to his sacral ulcer. Reported weakness, will attempt to ambulate for evaluation of his weakness. Patient ambulated without any difficulties. Considered admission, however patient not hypoxic not weak and is ambulating. He is continued on antibiotics for UTI concerns. COVID flu and RSV were negative. Return precautions discussed with patient and family. Re-evaluation: stable Disposition discussed with patient/family/significant other: Patient and family Case discussed with consulting clinician: N/A This note was generated with [employer] dictation software. It may contain incorrect words, spelling, and punctuation that were not noted in checking the note before signing. Lab Data Attestation: I reviewed the patient's lab results. Labs: Laboratory Results - last 24 hr 03/14/24 03/15/24 03/15/24 22:40 00:55 01:57 WBC 12.1 H RBC 3.93 L Hgb 11.9 L Hct 35.9 L MCV 91.3 MCH 30.3 MCHC 33.1 RDW Std Deviation 41.4 RDW Coeff of Michael 12.3 Plt Count 376 MPV 8.4 Immature Gran % (Auto) 1.600 H Neut % (Auto) 85.1 H Lymph % (Auto) 4.6 L [place] % (Auto) 8.4 Eos % (Auto) 0.0 Baso % (Auto) 0.3 Absolute Neuts (auto) 10.3 H Absolute Lymphs (auto) 0.56 L Nucleated RBC % 0 Sodium 130 L Potassium 4.7 Chloride 96 L Carbon Dioxide 28.0 Anion Gap 6 BUN 21 H Creatinine 0.94 Est GFR (MDRD) Af Amer 97 Est GFR (MDRD) Non-Af 80 BUN/Creatinine Ratio 22.2 H Glucose 123 H Lactic Acid 1.1 Calcium 8.7 Total Bilirubin 0.30 Direct Bilirubin 0.13 AST 22 ALT 26 Alkaline Phosphatase 133 H Troponin I High Sens 13 Total Protein 6.8 Albumin 2.2 L Globulin 4.6 H Procalcitonin 0.20 H Urine Color Yellow Urine Clarity Clear Urine pH 7.0 Ur Specific [place] 1.010 Urine Protein 30 H Urine Glucose (UA) Normal Urine Ketones Negative Urine Occult Blood 150 H Urine Nitrite Negative Urine Bilirubin Negative Urine Urobilinogen Normal Ur Leukocyte Esterase 100 H Urine RBC 50-100 SEEN Urine WBC 25-50 SEEN Ur Squamous Epith Cells 0-5 SEEN Urine Bacteria RARE Hyaline Casts 0-5 SEEN Urine Mucus 1+ Discharge Plan Triage Chief Complaint: Weakness ED Provider: Vitaliy Malloy Dx/Rx/DC Orders Clinical Impression: Acute UTI, Fever, Weakness, Ulcer of sacral region, stage 2 Instructions: UTIs Understanding, Pressure Injury Dc, ED Fever Control (Adult), ED Weakness (Uncertain Cause) Prescriptions: New cefdinir 300 mg capsule 300 mg PO Q12H Qty: 14 0RF Primary Care Provider: Johnny Shelton Referrals: Johnny Shelton DO [Primary Care Provider] - [facility] and [Non-Staff] - 3-5 Days Activity Restrictions/Additional Instructions: Fever in the ED improved with Tylenol. Your workup negative COVID, influenza, RSV. Lactic acid normal. Urine with signs of infection. Your creatinine 0.94. White count 12.1. Hemoglobin 11.9. Urine culture pending. Blood cultures pending. You have a sacral ulcer with dressing placed in the ED. Follow-up with wound care for this. Follow-up with your PCP. You have worsening symptoms, return to the ED for reevaluation. Print Language: Slovenian Disposition Disposition: Home, Self Care Discharge Date/Time: 03/15/24 05:45
[2024-03-14 23:46] VITALS: BP 141/76; PULSE 72; RESP 19; TEMP 38.6; O2SAT 94
[2024-03-15] VITALS (7 sets, daily range): BP systolic 90–145; BP diastolic 49–92; PULSE 69–121; RESP 17–31; TEMP 36.6–38.7; O2SAT 92–97; BMI 18.0
[2024-03-15 00:39] LABS: AST(SGOT) 22 U/L (15-37); Alanine Aminotransfer ALT/SGPT 26 U/L (16-61); Albumin, Serum 2.2 g/dL (3.2-5.0); Alkaline Phosphatase 133 U/L (45-117); Bilirubin, Direct 0.13 mg/dL (0.00-0.30); Globulin 4.6 g/dL (2.2-4.2); Protein, Total 6.8 g/dL (6.4-8.2)
[2024-03-15] MEDS: Acetaminophen 325 MG Tablet 650 MG PO (00:49)
[2024-03-15 01:28] LABS: Lactic Acid 1.1 mmol/L (0.4-1.9)
[2024-03-15 02:08] LABS: Color, Urine Yellow (Yellow); Glucose, Dipstick Normal (Normal); Ketone-Dipstick Negative (Negative); Leukocyte Esterase-Dipstick 100 /ul (Negative); Nitrite-Dipstick Negative (Negative); Occult Blood-Urine 150 /ul (Negative); Protein-Dipstick 30 mg/dl (Negative); Urine Bilirubin Dipstick Negative (Negative); Urine Clarity Clear (Clear); Urine Urobilinogen Normal (Normal)
[2024-03-15 02:15] LABS: Bacteria RARE /hpf (None Seen); Hyaline Cast 0-5 SEEN /lpf (0-5); Mucous, Urine 1+ /hpf (<or=2+); Red Blood Cells-Urine 50-100 SEEN /hpf (0-5); Squamous Epithelial Cells - UA 0-5 SEEN /hpf (0-5); White Blood Cells 25-50 SEEN /hpf (0-5)
[2024-03-15] MEDS: 0.9% Normal Saline (1000mL) 1,000 ML 999 ML IV (02:44)
[2024-03-15] MEDS: Ceftriaxone 1 GM/50 ML BAG IV (04:09)
== END 2024-03-15 05:45 | disposition home or self-care (01) ==
PROVIDERS: Emergency Provider Emergency Medicine; PCP Family Medicine; Visit Provider Emergency Medicine
DX: N39.0 Urinary tract infection, site not specified (principal); L89.152 Pressure ulcer of sacral region, stage 2; R50.9 Fever, unspecified; R53.1 Weakness; Z87.891 Personal history of nicotine dependence
CPT/HCPCS: 80048; 80076; 81001; 83605; 84145; 84484; 85025; 87040; 87086; 87631; 93005; 96365; 96366; 99285; A4216

== ENCOUNTER 2024-03-31 16:03 | Emergency (ER) | payer MEDICARE, OTHER, SELFPAY ==
[2021-09-09 14:02] VITALS: BMI 19.5
[2024-03-31 16:12] VITALS: BP 110/72; PULSE 73; RESP 16; TEMP 36.6; O2SAT 97
--- NOTE | 2024-03-31 17:42 | RAD_ITS ---
EXAM: XR LEFT CLAVICLE COMPLETE, 2 VIEWS CLINICAL INDICATION: TRAUMA TECHNIQUE: Frontal and lordotic views of the left clavicle. COMPARISON: No relevant prior studies available. FINDINGS: BONES/JOINTS: There is short oblique fracture of the distal third of the left clavicle, minimally visible, not significantly distracted or displaced. Maximal displacement of roughly 2.6 mm. Intact acromioclavicular and glenohumeral joints. Heterogeneous bone density. SOFT TISSUES: Mild left supraclavicular soft tissue swelling. No radiopaque foreign body. RAD/Clavicle IMPRESSION: Minimally displaced and fairly simple-appearing fracture of the distal third of the left clavicle. Electronically Signed: Shira Chatterjee MD at 18:29 EST ,
[2024-03-31 19:49] VITALS: O2SAT 96
--- NOTE | 2024-03-31 19:51 | EDS_ITS ---
HPI HPI - Fall History of Present Illness Chief Complaint: Fall PFSH PFSH Medical History Chronic cough Hx of fracture of hip History of renal disease Former smoker Vitamin D insufficiency Abnormal results of thyroid function studies Loss of hearing Wears glasses Wears partial dentures Cancer Alcohol use Arthritis Low iron Back pain Heartburn Shortness of breath on exertion History of edema History of SIADH Chronic bronchitis Hydronephrosis Former smoker Closed intertrochanteric fracture of left femur Kidney failure Prostate cancer Hyponatremia Prostatic cancer Home Medications ?Medication ?Instructions ?Recorded ?Last Taken ?Type NK 03/31/24 Unknown History Allergy/AdvReac Type Severity Reaction Status Date / Time No Known Allergies Allergy Verified 03/31/24 16:12 Family History Mother Heart disease Father Heart disease Surgical History History of cystoscopy Hx of cystoscopy History of open reduction and internal fixation (ORIF) procedure History of open reduction and internal fixation (ORIF) procedure History of transurethral resection of prostate Status post appendectomy History of renal stent H/O hernia repair Social History household members: spouse and other details: 2 [address] house. He sleeps downstairs in a recliner. 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 Notes he fell in the garage and laid on his left shoulder for approximate 20 minutes. Denies head trauma, loss of consciousness. Denies taking blood thinners REVIEW OF SYSTEMS: Pertinent positives: Left shoulder pain Pertinent negatives: Headache, neck pain, pelvis pain PHYSICAL EXAM: Nursing triage notes reviewed, Vital signs reviewed Primary Survey Airway: Intact Breathing: Bilateral breath sounds Circulation: Palpable bilateral femorals, Palpable bilateral radial, Palpable bilateral DP and Palpable bilateral PT Disability / Spine precautions GCS Score: Eye Openin Verbal Response: 5 Motor Response: 6 Secondary Survey Constitutional: Please see MDM Head: Atraumatic, Midface stable, NO jaw malocclusion, No Cephalohematoma, and No Lacerations noted Eye: Pupils equal round and reactive to light, Extraocular muscles intact and No periorbital ecchymosis or stepoff, no evidence of entrapment ENT: Oropharynx clear, no lacerations, no hemotympanum, no raccoon eyes or hurt sign Cervical spine / Neck: No cervical spine bony tenderness, crepitance, or stepoff deformity Trachea midline Lungs: Clear to auscultation, No asymmetric rise and No crepitus, no flail chest Cardiac: Regular rate and rhythm and No murmurs Abdomen: Soft, Nontender and No rebound Pelvis: Pelvis stable to compression : No evidence of genital injury Back: No midline bony tenderness to thoracic/lumbar/sacral spines Neuro: At baseline, intact strength and sensation in bilateral upper and lower extremities. 2+ patellar reflexes bilaterally. Extremities: NO gross Deformities Psych: Normal affect Nursing triage notes reviewed, Vital signs reviewed MEDICAL DECISION MAKING: Chief Complaint: Shoulder pain External records reviewed: Reviewed prior imaging studies Factors affecting care: none Social determinants of health: none History obtained from others: none Consults: none [facility] Narrative: The patient was initially hemodynamically stable, afebrile and nontoxic- appearing. Exam with TTP over distal clavicle. But intact range of motion left upper extremity. Left lower extremity neurovascular intact. No other evidence of trauma including trauma to the head, shoulders, abdomen, pelvis, legs or hips. I considered the following differential diagnosis: Shoulder fracture, dislocation, clavicular fracture, musculoskeletal pain, AC joint separation ALL IMAGES (IF OBTAINED) HAVE BEEN PERSONALLY REVIEWED AND INTERPRETED BY MYS ELF. X-ray of the left shoulder is read and reviewed person myself shows evidence of a distal clavicular fracture, no obvious significant displacement or evidence of shoulder fracture dislocation. For PCP follow-up. Discussed giving narcotic prescription however did not prescribe narcotic as this would likely lead to increased falls. Sling provided. Early progressive mobilization recommended to prevent adhesive capsulitis The patient and/or family, caregivers express understanding. The patient and/or family, caregivers agrees with the plan. Shared decision making: I will have a discussion with the patient and or visitors regarding risk/benefits of further testing or admission. They will be made aware of of the risk/benefits inherent in this decision they will be given the opportunity to voice understanding. Total critical care time today provided was at least 0 minutes. This excludes separately billable procedures. Critical care time (if documented) is secondary to the patient having high probability of clinically significant/life threatening deterioration in the patient's condition which required my urgent intervention. Impression: 1. Left clavicular fracture 2. Acute shoulder pain Dispo: discharge This note was generated with [employer] dictation software. It may contain incorrect words, spelling, and punctuation that were not noted in review of the chart krysetn or to signing. Radiography Diagnostic Testing: Clinical Impression(s) from Imaging Studies Clavicle X-Ray 03/31/24 17:42 IMPRESSION: Minimally displaced and fairly simple-appearing fracture of the distal third of the left clavicle. Electronically Signed: Shira Chatterjee MD at 18:29 EST , Discharge Plan Triage Chief Complaint: Fall ED Provider: Raphael Dee Dx/Rx/DC Orders Prescriptions: No Action NK Primary Care Provider: Johnny Shelton Referrals: Johnny Shelton, [Primary Care Provider] - Print Language: Spanish
[2024-03-31 20:00] VITALS: BP 133/81; PULSE 98; RESP 18; O2SAT 96
[2024-03-31 20:15] VITALS: BP 133/81; PULSE 90; RESP 16; TEMP 36.7; O2SAT 97
[2024-03-31] MEDS: Acetaminophen 325 MG Tablet 650 MG PO (20:33)
== END 2024-03-31 20:39 | disposition home or self-care (01) ==
PROVIDERS: Emergency Provider Emergency Medicine; PCP Family Medicine; Visit Provider Emergency Medicine
DX: S42.032A Displaced fracture of lateral end of left clavicle, initial encounter for closed fracture (principal); W19.XXXA Unspecified fall, initial encounter; Z87.891 Personal history of nicotine dependence
CPT/HCPCS: 73000; 99284

== ENCOUNTER 2024-04-06 06:40 | Outpatient (RCR) | payer MEDICARE, OTHER, SELFPAY ==
[2021-09-09 14:02] VITALS: BMI 19.5
[2024-02-28 00:57] VITALS: BP 92/42; PULSE 78; RESP 18; TEMP 36.3; BMI 17.2
== END 2024-04-29 23:59 | disposition home or self-care (01) ==
LOC: WC 06:40
PROVIDERS: PCP Family Medicine; Referring Provider Family Medicine; Visit Provider Internal Medicine
DX: Z09 Encounter for follow-up examination after completed treatment for conditions other than malignant neoplasm (principal)

== ENCOUNTER 2024-05-23 09:30 | Outpatient (RCR) | payer MEDICARE, OTHER, SELFPAY ==
[2021-09-09 14:02] VITALS: BMI 19.5
[2024-04-30 01:33] VITALS: BP 92/42; PULSE 78; RESP 18; TEMP 36.3; BMI 17.2
[2024-05-09 09:40] VITALS: BP 110/50; PULSE 87; RESP 18; TEMP 36.6; BMI 17.2
--- NOTE | 2024-05-09 12:16 | PCM.WC.HP ---
History of Present Illness Date of Service: 05/09/24 Chief Complaint: Stage 2 pressure ulcer left buttock History of Wound: Kofi is a very pleasant 87 yo gentleman that presents to the wound healing center for evaluation and treatment of a left buttock ulcer. He has been seen in the past by another provider but had transportation issues and was not consistent with follow up. This ulcer has come and gone over the several years. He has used many topical treatments including Calmoseptine and Aquaphor to the area. He sits on a donut cushion when he is sitting on his couch which is where he spends the majority of his time during the day. He has lost approx. 40 lbs over the last several years which he attributes to some of the cause of the ulcer as he does not have as much subcutaneous tissue between his skin and his ischium. Labs from 03/14/24 showed Albumin 2.2. He does eat well but does not like protein shakes or yogurt. He is currently drinking boost. He history of CKD Stage II, COPD, reduced BMI/malnutrition, on Eliquis, and frequent falls and recurrent trips to the ED. PCP is Dr. Shelton. He has home health. He tends to be non compliant in his care. Today he denies fever, chills, nausea and vomiting. Progress of Wound: Ulcer on his left buttock is a stage 2, superficial. The ulcer is painful. He admits to sitting on a donut pillow to off load. Expressed concern that a donut pillow may actually cause more pressure and make his ulcer worse. [facility] Medical History (Reviewed 05/13/24 @ 10:32 by Marine Hubbard PHOTO MASK PATTERN GENERATOR, PHOTO MASK PATTERN GENERATOR-C) Chronic cough Hx of fracture of hip History of renal disease Former smoker Vitamin D insufficiency Abnormal results of thyroid function studies Loss of hearing Wears glasses Wears partial dentures Cancer Alcohol use Arthritis Low iron Back pain Heartburn Shortness of breath on exertion History of edema History of SIADH Chronic bronchitis Hydronephrosis Former smoker Closed intertrochanteric fracture of left femur Kidney failure Prostate cancer Hyponatremia Prostatic cancer Home Medications ?Medication ?Instructions ?Recorded ?Last Taken ?Type NK 03/31/24 Unknown History Allergy/AdvReac Type Severity Reaction Status Date / Time No Known Allergies Allergy Verified 03/31/24 16:12 Family History (Reviewed 02/14/25 @ 10:32 by Marine Hubbard PHOTO MASK PATTERN GENERATOR, PHOTO MASK PATTERN GENERATOR-C) Mother Heart disease Father Heart disease Surgical History History of cystoscopy Hx of cystoscopy History of open reduction and internal fixation (ORIF) procedure History of open reduction and internal fixation (ORIF) procedure History of transurethral resection of prostate Status post appendectomy History of renal stent H/O hernia repair Social History (Reviewed 05/13/24 @ 10:32 by Marine Hubbard PHOTO MASK PATTERN GENERATOR, PHOTO MASK PATTERN GENERATOR-C) household members: spouse and other details: [address]. He sleeps downstairs in a recliner. 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 Tobacco: How many years used: 67 how long ago did patient quit smoking: He quit in 2019 alcohol intake: current alcohol intake frequency: holidays/special occasions only substance use type: does not use ROS Constitutional Constitutional: Reports frequent falls; Denies chills or fever(s) Eyes Eyes: Reports none ENT HEENT: Reports none Cardiovascular Cardiovascular: Denies chest pain or dyspnea Respiratory/Chest Respiratory/Chest: Denies cough or dyspnea Gastrointestinal Gastrointestinal: Denies nausea or vomiting Genitourinary Genitourinary: Reports none Musculoskeletal Musculoskeletal: Reports difficulty walking and joint pain Integumentary Integumentary: Reports skin ulcer Neurologic Neurologic: Denies confusion or dizziness Psychiatric Psychiatric: Reports systems reviewed and no addt'l complaints, except as documented Endocrine Endocrinology: Reports systems reviewed and no addt'l complaints, except as documented Hematologic/Lymphatic Hematologic/Lymphatic: Reports none Allergic/Immunologic Allergic/Immunologic: Reports none Vital Signs Vital Signs Vital Signs: 05/09/24 09:40 Temperature 97.9 F Temperature Source Temporal Pulse Rate 87 Respiratory Rate 18 Blood Pressure 110/50 L Blood Pressure Mean 70 Blood Pressure Source Monitor Blood Pressure Position Sitting Blood Pressure Location Right Arm Oxygen Delivery Method Room Air Weight Weight: 116 lb 11.779 oz Body Mass Index (BMI) 17.2 Physical Exam Const alert and no apparent distress General Appearance: cooperative and comfortable HEENT normocephalic Head and Scalp: atraumatic Eyes General Eye: normal appearance of both eyes Lymph Lymphatic: no lymphedema noted Resp normal respiratory effort, normal air movement and clear to auscultation bilaterally Effort and Inspection: able to speak in complete sentences Cardio regular rate and regular rhythm GI soft to palpation Back/Spine normal ROM Extremity full ROM and normal capillary refill Skin Wound Narrative: Ulcer on left buttock that is superficial, stage 2. He is thin with bony prominences present with loose, thin, fragile skin. Neuro oriented x3 and moves all extremities Psych mental status grossly normal Appearance: appropriate Debridement Note Debridement Note Wound debrided: buttocks ulcer Laterality: Left Wound Grade/Stage: Stage 2 Type of Debridement: Excisional debridement Anesthesia Used: 5% Lidocaine Gel Depth: Down to and including healthy tissue and in the subcutaneous layer Percentage of wound debrided: 100 Instrument Used: 3mm curette Tissue Removed: Non viable tissue and slough Severity: Fat Layer Exposed Amount of bleeding with debridement: Mild Bleeding Controlled with: Pressure Patient tolerated procedure: Patient tolerated procedure well Post-Debridement Measurements and Additional Note: Post-Debridement Measurements/Treatment DEXTER - Nurse 1 - General Ulcer Assessment Start: 05/09/24 09:40 Freq: Status: Active Protocol: MAGALY Activity Type Activity Date Activity User E-sign Co-sign Detail Recorded Client Recorded Date Recorded By Document 05/09/24 09:40 KW [id number] 05/09/24 09:47 KW 05/09/24 09:40 - Today's Visit Information Type of service 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 ) Arrival Mode Ambulatory,Cane Patient Identification Verified (Name & Yes ) Height and Weight Body Mass Index (BMI) 17.2 BMI Classification Underweight Vital Signs Temperature (97.8 F-99.1 F) 97.9 F Temperature Source Temporal Pulse Rate (60-100) 87 Pulse Location Monitor Respiratory Rate (12-18) 18 Respiratory rate source Observation Oxygen Delivery Method Room Air Blood Pressure (90/60-120/80) 110/50 L Blood Pressure Mean 70 Source Monitor Position Sitting Blood Pressure Location Right Arm History Since Last Visit- (Skip if this is Patient's initial visit) Have you changed medications since your No last visit? Any new allergies or adverse reactions No Had a fall/change in ADL's that may No increase risk of falls Signs or symptoms of abuse and/or No neglect since last visit Have you been in the hospital since your No last visit? Has dressing in place as prescribed Yes Has compression in place as prescribed N/A Has offloadiing in place as prescribed N/A Experienced any changes in pain level or No management Left Footwear Regular Shoe Right Footwear Regular Shoe Pain Scale: 0-10 Numeric Is Patient Pain Free? Yes - Nurse 1 - General Ulcer Measurement Start: 05/09/24 09:40 Freq: Status: Active Protocol: Activity Type Activity Date Activity User E-sign Co-sign Detail Recorded Client Recorded Date Recorded By Document 05/09/24 09:40 WILMER [id number] 05/09/24 09:47 05/09/24 09:40 Wound Center Nurse 1 #3 L Buttock Cluster -Current Size (cm) - Length 2.5 -Current Size (cm) - Width 2 -Current Size (cm) - Depth 0.1 -Total Square Cm 5.0 -Exudate Amt Small -Exudate Type Serosanguineous -Wound Margin Distinct, Outline Attached -Granulation Amt Large (67-100%) -Granulation Quality Red -Texture (Ela-wound Skin Appearance) Assessed -Moisture (Ela-wound Skin Appearance) Assessed -Color (Ela-wound Skin Appearance) Assessed -Temperature (Ela-wound Skin No Abnormality Appearance) (Pt Warm) -Tenderness on Palpation (Ela-wound No Skin Appearance) -Ulcer Cleansing Rinsed/ Irrigated with Saline -Foul Odor after Cleansing No -Anesthetic Used 5% Lidocaine Gel - Nurse 2 - General Ulcer CM Notes Start: 05/09/24 09:40 Freq: Status: Active Protocol: Activity Type Activity Date Activity User E-sign Co-sign Detail Recorded Client Recorded Date Recorded By Document 05/09/24 10:15 BETH [id number] 05/09/24 10:20 BETH 05/09/24 10:15 Wound Center Nurse 2 -Time 10:16 -Correct Patient Yes -Correct Side, Site, Position Yes -Correct Procedure Yes -Procedure Performed Yes -Type of Procedure Debridement -Clinical Debridement Subcutaneous -Tissue Removed Subcutaneous -Post Debridement (cm) - Length 2 -Post Debridement (cm) - Width 2 -Post Debridement (cm) - Depth 0.1 -Total Square (Post) (cm) 4 -Area of Debridement (cm) - Length 2 -Area of Debridement (cm) - Width 2 -Total Square (Area) (cm) 4 -Tunneling No -Undermining/Tunneling No -Circular Undermining No -Wound/Ulcer Outcome Not Healed -Ulcer Cleansing Rinsed/ Irrigated with Saline -Foul Odor after Cleansing No -Bioengineered Tissue No -Bleeding Controlled with Pressure -Treatment Response Procedure Tolerated Well -Offloading No -Debridement - Subq, 1st 20sq cm Yes Pain Scale: 0-10 Numeric Is Patient Pain Free? Yes - Nurse 3 - General Ulcer D/C NN Start: 05/09/24 09:40 Freq: Status: Active Protocol: Activity Type Activity Date Activity User E-sign Co-sign Detail Recorded Client Recorded Date Recorded By Document 05/09/24 10:25 KW [id number] 05/09/24 10:25 KW 05/09/24 10:25 Wound Care Center Nurse 3 #3 L Buttock Cluster -Primary Dressing Applied Promogran Pilar Matter, Silicone Border Foam 4x4 -Promogran Pilar Matter 1 -Silicone Border Foam 4x4 1 Pain Scale: 0-10 Numeric Is Patient Pain Free? Yes WC - Visit Discharge Discharge Condition Stable Ambulatory Status Ambulatory Transportation Private Auto Medication Reconcilliation completed & No provided to patient/care provider Clinical Summary of Care Provided Yes Charges/Coding Visit Charges Office Visits / Consults: [id number] OV L4 Est 30min (25) Procedures Integumentary [id number]: [id number] Odette subq tissue 20 sq cm/< Assessment/Plan Assessment/Plan (1) Decubitus ulcer of left buttock, stage 2: CODE(S): L89.322 - Pressure ulcer of left buttock, stage 2 (2) Malnutrition: CODE(S): E46 - Unspecified protein-calorie malnutrition QUALIFIERS: Malnutrition type: protein-calorie malnutrition Protein-calorie malnutrition severity: moderate Qualified Code(s): E44.0 - Moderate protein-calorie malnutrition (3) Debility: CODE(S): R53.81 - Other malaise (4) DVT prophylaxis: CODE(S): Z29.9 - Encounter for prophylactic measures, unspecified PLAN: Plan Patient evaluated at the wound healing center today. He has home health to assist with with his dressing changes. Wound care - Moistened Pilar covered with [employer] daily after washing with soap and water. He states he sits on a donut pillow. Recommend using a regular egg crate or gel cushion with no hole in it. Discussed how the donut pillow may be placing extra pressure on his buttocks which can make his ulcer worse. Will discuss at his next visit about having a nutritional consult. He drinks a boost a day but he needs better protein intake. Follow up one week. Spent over 35 minutes with patient, educating patient, reviewing old records and plan of care.
[2024-05-23 09:28] VITALS: BP 90/65; PULSE 81; RESP 16; TEMP 36.2; BMI 17.2
--- NOTE | 2024-05-23 13:17 | PCM.WC.PN ---
History of Present Illness Date of Service: 05/23/24 Chief Complaint: Stage 2 pressure ulcer left buttock History of Wound: Kofi is a very pleasant 87 yo gentleman that presents to the wound healing center for evaluation and treatment of a left buttock ulcer. He has been seen in the past by another provider but had transportation issues and was not consistent with follow up. This ulcer has come and gone over the several years. He has used many topical treatments including Calmoseptine and Aquaphor to the area. He sits on a donut cushion when he is sitting on his couch which is where he spends the majority of his time during the day. He has lost approx. 40 lbs over the last several years which he attributes to some of the cause of the ulcer as he does not have as much subcutaneous tissue between his skin and his ischium. Labs from 03/14/24 showed Albumin 2.2. He does eat well but does not like protein shakes or yogurt. He is currently drinking boost. He history of CKD Stage II, COPD, reduced BMI/malnutrition, on Eliquis, and frequent falls and recurrent trips to the ED. PCP is Dr. Shelton. He has home health. He tends to be non compliant in his care. Today he denies fever, chills, nausea and vomiting. Progress of Wound: New ulcer in the skin crease of his left superior buttocks. It is open and painful. It is a small slit that the base is pink. Ela wound is clear. The other area on his left buttocks is healed. He stopped sitting on a donut pillow and states that it is more painful not on the donut. Objective Data Objective Data Vital Signs: Vital Signs Temp Pulse Resp BP O2 Del Method 97.1 F L 81 16 90/65 Room Air 05/23/24 09:28 05/23/24 09:28 05/23/24 09:28 05/23/24 09:28 05/23/24 09:28 Oxygen Delivery Method Room Air Weight: 116 lb 11.779 oz Body Mass Index (BMI) 17.2 Charges/Coding Procedures Integumentary 111xxx-113xx: 92881 Odette subq tissue 20 sq cm/< Debridement Note Debridement Note Wound debrided: buttocks ulcer, near coccyx Laterality: Left Type of Debridement: Excisional debridement Anesthesia Used: 5% Lidocaine Gel Depth: Down to and including healthy tissue and in the subcutaneous layer Percentage of wound debrided: 100 Instrument Used: 3mm curette Tissue Removed: Non viable tissue and slough Severity: Fat Layer Exposed Amount of bleeding with debridement: Mild Bleeding Controlled with: Compression and gauze Patient tolerated procedure: Patient tolerated procedure well Post-Debridement Measurements and Additional Note: Post-Debridement Measurements/Treatment - Nurse 1 - General Ulcer Assessment Start: 05/09/24 09:40 Freq: Status: Active Protocol: MAGALY Activity Type Activity Date Activity User E-sign Co-sign Detail Recorded Client Recorded Date Recorded By Document 05/09/24 09:40 KW [id number] 05/09/24 09:47 KW Document 05/23/24 09:28 BM [id number] 05/23/24 09:33 BM 05/09/24 05/23/24 09:40 09:28 - Today's Visit Information Type of service Follow-up Visit Follow-up Visit (Physician/DIP TUBE ASSEMBLER MACHINE (Physician/DIP TUBE ASSEMBLER MACHINE ) ) Arrival Mode Ambulatory,Cane Ambulatory,Cane Transfer Assistance None Patient Identification Verified (Name & Yes Yes ) Patient Requires Transmission-Based No Precautions Height and Weight Body Mass Index (BMI) 17.2 17.2 BMI Classification Underweight Underweight Vital Signs Temperature (97.8 F-99.1 F) 97.9 F 97.1 F L Temperature Source Temporal Temporal Pulse Rate (60-100) 87 81 Pulse Location Monitor Monitor Respiratory Rate (12-18) 18 16 Respiratory rate source Observation Observation Oxygen Delivery Method Room Air Room Air Blood Pressure (90/60-120/80) 110/50 L 90/65 Blood Pressure Mean (mm Hg) 70 73 Source Monitor Monitor Position Sitting Sitting Blood Pressure Location Right Arm Right Arm History Since Last Visit- (Skip if this is Patient's initial visit) Have you changed medications since your No No last visit? Any new allergies or adverse reactions No No Had a fall/change in ADL's that may No No increase risk of falls Signs or symptoms of abuse and/or No No neglect since last visit Have you been in the hospital since your No No last visit? Has dressing in place as prescribed Yes Yes Has compression in place as prescribed N/A N/A Has offloadiing in place as prescribed N/A N/A Experienced any changes in pain level or No No management Left Footwear Regular Shoe Regular Shoe Right Footwear Regular Shoe Regular Shoe Pain Scale: 0-10 Numeric Is Patient Pain Free? Yes Yes WC - Nurse 1 - General Ulcer Measurement Start: 05/09/24 09:40 Freq: Status: Active Protocol: Activity Type Activity Date Activity User E-sign Co-sign Detail Recorded Client Recorded Date Recorded By Document 05/09/24 09:40 KW [id number] 05/09/24 09:47 KW Document 05/23/24 09:28 BM [id number] 05/23/24 09:33 BM 05/09/24 05/23/24 09:40 09:28 Wound Center Nurse 1 #3 L Buttock Cluster -Combined with other wound No -Current Size (cm) - Length 2.5 0.1 -Current Size (cm) - Width 2 0.1 -Current Size (cm) - Depth 0.1 0.1 -Total Square Cm 5.0 0.01 -Date of Last Picture (Recall this 05/23/24 field) -Photo Taken Yes -Epithelialization Large 67-100% -Tunneling No -Undermining/Tunneling No -Circular Undermining No -Exudate Amt Small None Present -Exudate Type Serosanguineous -Wound Margin Distinct, Outline Attached -Granulation Amt Large (67-100%) -Granulation Quality Red -Texture (Ela-wound Skin Appearance) Assessed Assessed, Scarring -Moisture (Ela-wound Skin Appearance) Assessed Assessed,Dry/ Scaly -Color (Ela-wound Skin Appearance) Assessed Assessed -Temperature (Ela-wound Skin No Abnormality No Abnormality Appearance) (Pt Warm) (Pt Warm) -Tenderness on Palpation (Ela-wound No No Skin Appearance) -Ulcer Cleansing Rinsed/ Rinsed/ Irrigated with Irrigated with Saline Saline -Foul Odor after Cleansing No No -Anesthetic Used 5% Lidocaine 5% Lidocaine Gel Gel WC - Nurse 2 - General Ulcer CM Notes Start: 05/09/24 09:40 Freq: Status: Active Protocol: Activity Type Activity Date Activity User E-sign Co-sign Detail Recorded Client Recorded Date Recorded By Document 05/09/24 10:15 [id number] 05/09/24 10:20 JF Document 05/23/24 09:44 [id number] 05/23/24 09:46 JF 05/09/24 05/23/24 10:15 09:44 Wound Center Nurse 2 #3 L Buttock Cluster -Time 10:16 09:45 -Correct Patient Yes Yes -Correct Side, Site, Position Yes Yes -Correct Procedure Yes Yes -Procedure Performed Yes Yes -Type of Procedure Debridement Debridement -Clinical Debridement Subcutaneous Subcutaneous -Tissue Removed Subcutaneous Subcutaneous -Post Debridement (cm) - Length 2 0.5 -Post Debridement (cm) - Width 2 0.7 -Post Debridement (cm) - Depth 0.1 0.2 -Total Square (Post) (cm) 4 0.35 -Area of Debridement (cm) - Length 2 0.5 -Area of Debridement (cm) - Width 2 0.7 -Total Square (Area) (cm) 4 0.35 -Tunneling No No -Undermining/Tunneling No No -Circular Undermining No No -Wound/Ulcer Outcome Not Healed Not Healed -Ulcer Cleansing Rinsed/ Rinsed/ Irrigated with Irrigated with Saline Saline -Foul Odor after Cleansing No No -Bioengineered Tissue No No -Bleeding Controlled with Pressure Pressure -Treatment Response Procedure Procedure Tolerated Well Tolerated Well -Offloading No No -Pressure Reduction Other -Other Pressure Reduction gel cushion for recycliner -Debridement - Subq, 1st 20sq cm Yes Yes Pain Scale: 0-10 Numeric Is Patient Pain Free? Yes Yes - Nurse 3 - General Ulcer D/C NN Start: 05/09/24 09:40 Freq: Status: Active Protocol: Activity Type Activity Date Activity User E-sign Co-sign Detail Recorded Client Recorded Date Recorded By Document 05/09/24 10:25 [id number] 05/09/24 10:25 KW Document 05/23/24 09:55 [facility] [id number] 05/23/24 09:55 [facility] 05/09/24 05/23/24 10:25 09:55 Wound Care Center Nurse 3 #3 L Buttock Cluster -Primary Dressing Applied Promogran Pilar Matter, Silicone Border Foam 4x4 -Promogran Pilar Matter 1 -Silicone Border Foam 4x4 1 Pain Scale: 0-10 Numeric Is Patient Pain Free? Yes Yes - Visit Discharge Discharge Condition Stable Stable Ambulatory Status Ambulatory Ambulatory,Cane Transportation Private Auto Private Auto Accompanied by ashley waits in [facility] Medication Reconcilliation completed & No provided to patient/care provider Clinical Summary of Care Provided Yes #3 L Buttock Cluster -Ulcer Cleansing Rinsed/ Irrigated with Saline -Foul Odor after Cleansing No -Primary Dressing Applied Promogran Pilar Matter, Silicone Border Foam 4x4 -Promogran Pilar Matter 1 -Silicone Border Foam 4x4 1 Treatment Response Procedure Tolerated Well Assessment/Plan Assessment/Plan (1) Decubitus ulcer of left buttock, stage 2: CODE(S): L89.322 - Pressure ulcer of left buttock, stage 2 (2) Malnutrition: CODE(S): E46 - Unspecified protein-calorie malnutrition QUALIFIERS: Malnutrition type: protein-calorie malnutrition Protein-calorie malnutrition severity: moderate Qualified Code(s): E44.0 - Moderate protein-calorie malnutrition (3) Debility: CODE(S): R53.81 - Other malaise (4) DVT prophylaxis: CODE(S): Z29.9 - Encounter for prophylactic measures, unspecified PLAN: Plan Patient evaluated at the wound healing center today. He has home health to assist with with his dressing changes. Wound care - To ulcer in skin crease superior buttocks Moistened Pilar covered with [place] SAP daily after washing with soap and water. Barrier cream to bilateral buttocks to protect healed skin He states he stopped sitting on donut pillow and has a new cushion that he doesn't think it is as comfortable as his donut pillow. He drinks a boost a day but he needs better protein intake. Follow up one week.
--- NOTE | 2024-05-24 10:33 | WC ---
PHOTO 05/23/24 BUTTOCK
== END 2024-05-27 23:59 | disposition home or self-care (01) ==
LOC: WC 09:30
PROVIDERS: PCP Family Medicine; Referring Provider Family Medicine; Visit Provider Nurse Practitioner Family
DX: L89.322 Pressure ulcer of left buttock, stage 2 (principal); J44.9 Chronic obstructive pulmonary disease, unspecified; E44.0 Moderate protein-calorie malnutrition; N18.2 Chronic kidney disease, stage 2 (mild); R53.81 Other malaise; Z87.891 Personal history of nicotine dependence; Z79.01 Long term (current) use of anticoagulants; Z68.1 Body mass index [BMI] 19.9 or less, adult
CPT/HCPCS: 11042; 99214; G0463

== ENCOUNTER 2024-06-08 15:30 | Outpatient (RCR) | payer MEDICARE, OTHER, SELFPAY ==
[2021-09-09 14:02] VITALS: BMI 19.5
[2024-05-28 02:00] VITALS: BP 90/65; PULSE 81; RESP 16; TEMP 36.2; BMI 17.2
[2024-06-01 13:41] VITALS: BP 93/50; PULSE 92; RESP 18; TEMP 36.6; BMI 17.2
--- NOTE | 2024-06-01 14:43 | WC ---
PHOTO 06/01/24 LEFT BUTTOCK
--- NOTE | 2024-06-04 20:20 | PCM.WC.HP ---
History of Present Illness Date of Service: 06/01/24 Chief Complaint: Stage 2 pressure ulcer left buttock History of Wound: This is an 88-year-old male that presented to the [facility] for evaluation and treatment of a left buttock ulcer. He has been seen in the past by another provider but had transportation issues and was not consistent with follow up. This ulcer has come and gone over the several years. He has used many topical treatments including Calmoseptine and Aquaphor to the area. He sits on a donut cushion when he is sitting on his couch which is where he spends the majority of his time during the day. He has lost approx. 40 lbs over the last several years which he attributes to some of the cause of the ulcer as he does not have as much subcutaneous tissue between his skin and his ischium. Labs from 03/14/24 showed Albumin 2.2. He does eat well but does not like protein shakes or yogurt. He is currently drinking Boost. He has a history of CKD Stage II, COPD, reduced BMI/malnutrition, on Eliquis, and frequent falls and recurrent trips to the ED. PCP is Dr. Shelton. He has [facility]. He tends to be non compliant in his care. [facility] Medical History Chronic bronchitis Hydronephrosis Chronic cough Hx of fracture of hip History of renal disease Former smoker Vitamin D insufficiency Abnormal results of thyroid function studies Loss of hearing Wears glasses Wears partial dentures Cancer Alcohol use Arthritis Low iron Back pain Heartburn Shortness of breath on exertion History of edema History of SIADH Former smoker Closed intertrochanteric fracture of left femur Kidney failure Prostate cancer Hyponatremia Prostatic cancer Home Medications ?Medication ?Instructions ?Recorded ?Last Taken ?Type NK 03/31/24 Unknown History Allergy/AdvReac Type Severity Reaction Status Date / Time No Known Allergies Allergy Verified 03/31/24 16:12 Family History Mother Heart disease Father Heart disease Surgical History Status post appendectomy History of cystoscopy Hx of cystoscopy History of open reduction and internal fixation (ORIF) procedure History of open reduction and internal fixation (ORIF) procedure History of transurethral resection of prostate History of renal stent H/O hernia repair Social History household members: spouse and other details: 2 stry house. He sleeps downstairs in a recliner. 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 He appears thin and frail. General Appearance: cooperative and comfortable Orientation / Consciousness: awake Exam Limitations: no limitations HEENT normocephalic and head/scalp atraumatic Head and Scalp: normal to inspection, normocephalic and atraumatic Face and Sinus: normal facial exam Nose: external nose normal Eyes General Eye: normal appearance of both eyes Resp normal respiratory effort, normal air movement, no retractions and no use of accessory muscles Effort and Inspection: able to speak in complete sentences Cardio regular rate and regular rhythm Back/Spine normal ROM Skin Wound Narrative: A stage II pressure ulceration is noted on the left buttock. Dimensions are documented elsewhere. The base of the ulcer is generally pink and healthy in appearance, with a moderate amount of bioburden. There is no sign of infection or cellulitis. Neuro oriented x3 and moves all extremities Sensorium / Orientation: awake, alert, oriented to person, oriented to place and oriented to time Psych mental status grossly normal Appearance: appropriate Debridement Note Debridement Note Wound debrided: Left buttock ulceration Laterality: Left Wound Grade/Stage: Stage II Type of Debridement: Excisional debridement Anesthesia Used: 5% Lidocaine Gel Depth: Down to and including healthy tissue and in the subcutaneous layer Percentage of wound debrided: 100 Instrument Used: 3mm curette Tissue Removed: Non viable tissue and bioburden Severity: Fat Layer Exposed Amount of bleeding with debridement: Mild Bleeding Controlled with: Compression and gauze Patient tolerated procedure: Patient tolerated procedure well Post-Debridement Measurements and Additional Note: Post-Debridement Measurements/Treatment DEXTER - Nurse 1 - General Ulcer Assessment Start: 06/01/24 13:41 Freq: Status: Active Protocol: MAGALY Activity Type Activity Date Activity User E-sign Co-sign Detail Recorded Client Recorded Date Recorded By Document 06/01/24 13:41 IA [id number] 06/01/24 13:43 IA 06/01/24 13:41 WC - Today's Visit Information Type of service Follow-up Visit (Physician/TERRAZZO TILE SETTER ) Arrival Mode Ambulatory Accompanied by self Patient Identification Verified (Name & Yes ) Safety Precautions Fall Prevention Height and Weight Body Mass Index (BMI) 17.2 BMI Classification Underweight Vital Signs Temperature (97.8 F-99.1 F) 97.8 F Temperature Source Temporal Pulse Rate (60-100) 92 Pulse Location Monitor Respiratory Rate (12-18) 18 Respiratory rate source Observation Oxygen Delivery Method Room Air Blood Pressure (90/60-120/80) 93/50 L Blood Pressure Mean 64 Source Monitor Position Sitting Blood Pressure Location Right Arm History Since Last Visit- (Skip if this is Patient's initial visit) Has dressing in place as prescribed Yes Has compression in place as prescribed Yes Has offloadiing in place as prescribed Yes Experienced any changes in pain level or Yes management Left Footwear Regular Shoe Right Footwear Regular Shoe Pain Scale: 0-10 Numeric Is Patient Pain Free? Yes DEXTER Mcneal Nurse 1 - General Ulcer Measurement Start: 06/01/24 13:41 Freq: Status: Active Protocol: Activity Type Activity Date Activity User E-sign Co-sign Detail Recorded Client Recorded Date Recorded By Document 06/01/24 13:41 IA [id number] 06/01/24 13:43 IA 06/01/24 13:41 Wound Center Nurse 1 #3 L Buttock Cluster -Current Size (cm) - Length 0.3 -Current Size (cm) - Width 1.0 -Current Size (cm) - Depth 0.2 -Total Square Cm 0.30 -Photo Taken No -Tunneling No -Undermining/Tunneling No -Circular Undermining No -Exudate Amt Medium -Exudate Type Serosanguineous -Wound Margin Flat & Intact -Granulation Amt Large (67-100%) -Granulation Quality Red -Slough/Fibrin No -Texture (Ela-wound Skin Appearance) Assessed -Moisture (Ela-wound Skin Appearance) Assessed -Color (Ela-wound Skin Appearance) No Abnormality -Temperature (Ela-wound Skin No Abnormality Appearance) (Pt Warm) -Tenderness on Palpation (Ela-wound No Skin Appearance) -Ulcer Cleansing Soap and Water -Foul Odor after Cleansing No -Anesthetic Used 5% Lidocaine Gel Lower Limb Edema Present NA - Nurse 2 - General Ulcer CM Notes Start: 06/01/24 13:41 Freq: Status: Active Protocol: Activity Type Activity Date Activity User E-sign Co-sign Detail Recorded Client Recorded Date Recorded By Document 06/01/24 13:54 [facility] [id number] 06/01/24 13:58 [facility] 06/01/24 13:54 Wound Center Nurse 2 #3 L Buttock Cluster -Time 13:54 -Correct Patient Yes -Correct Side, Site, Position Yes -Correct Procedure Yes -Procedure Performed Yes -Type of Procedure Debridement -Clinical Debridement Subcutaneous -Tissue Removed Subcutaneous -Post Debridement (cm) - Length 0.3 -Post Debridement (cm) - Width 1 -Post Debridement (cm) - Depth 0.2 -Total Square (Post) (cm) 0.3 -Area of Debridement (cm) - Length 0.3 -Area of Debridement (cm) - Width 1 -Total Square (Area) (cm) 0.3 -Tunneling No -Undermining/Tunneling No -Circular Undermining No -Wound/Ulcer Outcome Not Healed -Ulcer Cleansing Rinsed/ Irrigated with Saline -Foul Odor after Cleansing No -Bioengineered Tissue No -Bleeding Controlled with Pressure -Treatment Response Procedure Tolerated Well -Debridement - Subq, 1st 20sq cm Yes Pain Scale: 0-10 Numeric Is Patient Pain Free? Yes - Nurse 3 - General Ulcer D/C NN Start: 06/01/24 13:41 Freq: Status: Active Protocol: Activity Type Activity Date Activity User E-sign Co-sign Detail Recorded Client Recorded Date Recorded By Document 06/01/24 14:03 [facility] [id number] 06/01/24 14:04 [facility] 06/01/24 14:03 Wound Care Center Nurse 3 #3 L Buttock Cluster -Ulcer Cleansing Rinsed/ Irrigated with Saline -Foul Odor after Cleansing No -Primary Dressing Applied Promogran Pilar Matter, Silicone Border Foam 4x4 -Promogran Pilar Matter 1 -Silicone Border Foam 4x4 1 Treatment Response Procedure Tolerated Well Pain Scale: 0-10 Numeric Is Patient Pain Free? Yes WC - Visit Discharge Discharge Condition Stable Ambulatory Status Ambulatory,Cane Transportation Private Auto Facility Type Home Health Charges/Coding Multi Select Codes Visit Charges Office Visit/Consults: 60266 OV L3 New 30 min Integumentary Integumentary CPT Codes: 36762 Odette subq tissue 20 sq cm/< Assessment/Plan Assessment/Plan (1) Decubitus ulcer of left buttock, stage 2: CODE(S): L89.322 - Pressure ulcer of left buttock, stage 2 (2) Malnutrition: CODE(S): E46 - Unspecified protein-calorie malnutrition QUALIFIERS: Malnutrition type: protein-calorie malnutrition Protein-calorie malnutrition severity: moderate Qualified Code(s): E44.0 - Moderate protein-calorie malnutrition (3) Debility: CODE(S): R53.81 - Other malaise (4) DVT prophylaxis: CODE(S): Z29.9 - Encounter for prophylactic measures, unspecified (5) History of open reduction and internal fixation (ORIF) procedure: CODE(S): Z98.890 - Other specified postprocedural states (6) Hx of fracture of hip: CODE(S): Z87.81 - Personal history of (healed) traumatic fracture (7) Loss of hearing: CODE(S): H91.90 - Unspecified hearing loss, unspecified ear (8) Cancer: CODE(S): C80.1 - Malignant (primary) neoplasm, unspecified (9) Shortness of breath on exertion: CODE(S): R06.02 - Shortness of breath (10) Chronic bronchitis: CODE(S): J42 - Unspecified chronic bronchitis QUALIFIERS: Chronic bronchitis type: simple Qualified Code(s): J41.0 - Simple chronic bronchitis (11) Hydronephrosis: CODE(S): N13.30 - Unspecified hydronephrosis QUALIFIERS: Hydronephrosis type: unspecified Qualified Code(s): N13.30 - Unspecified hydronephrosis (12) Prostate cancer: CODE(S): C61 - Malignant neoplasm of prostate (13) History of transurethral resection of prostate: CODE(S): Z98.890 - Other specified postprocedural states; Z90.79 - Acquired absence of other genital organ(s) (14) Status post appendectomy: CODE(S): Z90.49 - Acquired absence of other specified parts of digestive tract (15) History of renal stent: (16) H/O hernia repair: CODE(S): Z98.890 - Other specified postprocedural states; Z87.19 - Personal history of other diseases of the digestive system PLAN: Plan This is an 88-year-old male with a stage II pressure ulceration of the left buttock. He has been advised to continue with offloading measures. He possesses a gel cushion which he is using on a regular basis. The patient has been advised to optimize his nutritional intake, including the use of protein supplements. We are to continue the use of moistened Pilar topically, to be applied on a daily basis. The patient is to be assisted by his and home health nursing personnel who assist at home 3 times weekly. Barrier cream is to be applied to the buttocks to protect healed skin. The patient is 1 week for review addition by his published Wound Center provider. Total time: 34 minutes
[2024-06-08 15:18] VITALS: BP 127/67; PULSE 91; RESP 16; TEMP 36.8; BMI 17.2
--- NOTE | 2024-06-08 16:03 | PCM.WC.PN ---
History of Present Illness Date of Service: 06/08/24 Chief Complaint: Stage 2 pressure ulcer left buttock History of Wound: This is an 88-year-old male that [facility] and [facility] of a left buttock ulcer. He has been seen in the past by another provider but had transportation issues and was not consistent with follow up. This ulcer has come and gone over the several years. He has used many topical treatments including Calmoseptine and Aquaphor to the area. He sits on a donut cushion when he is sitting on his couch which is where he spends the majority of his time during the day. He has lost approx. 40 lbs over the last several years which he attributes to some of the cause of the ulcer as he does not have as much subcutaneous tissue between his skin and his ischium. Labs from 03/14/24 showed Albumin 2.2. He does eat well but does not like protein shakes or yogurt. He is currently drinking Boost. He has a history of CKD Stage II, COPD, reduced BMI/malnutrition, on Eliquis, and frequent falls and recurrent trips to the ED. PCP is Dr. Shelton. He has home health. He tends to be non compliant in his care. Progress of Wound: Left buttock ulcer is now a cluster. Base of ulcer is pink. Ela wound is erythematous from pressure. Patient admits to sitting for long periods of time. No clinical signs of infection. Objective Data Objective Data Vital Signs: Vital Signs Temp Pulse Resp BP O2 Del Method 98.3 F 91 16 127/67 H Room Air 06/08/24 15:18 06/08/24 15:18 06/08/24 15:18 06/08/24 15:18 06/01/24 13:41 Oxygen Delivery Method Room Air Weight: 116 lb 11.779 oz Body Mass Index (BMI) 17.2 Charges/Coding Procedures Integumentary 111xxx-113xx: 65863 Odette subq tissue 20 sq cm/< Debridement Note Debridement Note Wound debrided: Left buttock ulceration Laterality: Left Wound Grade/Stage: Stage II Type of Debridement: Excisional debridement Anesthesia Used: 5% Lidocaine Gel Depth: Down to and including healthy tissue and in the subcutaneous layer Percentage of wound debrided: 100 Instrument Used: 3mm curette Tissue Removed: Non viable tissue and bioburden Severity: Fat Layer Exposed Amount of bleeding with debridement: Mild Bleeding Controlled with: Compression and gauze Patient tolerated procedure: Patient tolerated procedure well Post-Debridement Measurements and Additional Note: Post-Debridement Measurements/Treatment WC - Nurse 1 - General Ulcer Assessment Start: 06/01/24 13:41 Freq: Status: Active Protocol: MAGALY Activity Type Activity Date Activity User E-sign Co-sign Detail Recorded Client Recorded Date Recorded By Document 06/01/24 13:41 MT [id number] 06/01/24 13:43 MT Document 06/08/24 15:18 ML [id number] 06/08/24 15:26 ML 06/01/24 06/08/24 13:41 15:18 WC - Today's Visit Information Type of service Follow-up Visit Follow-up Visit (Physician/SURVEY RODMAN (Physician/SURVEY RODMAN ) ) Arrival Mode Ambulatory Ambulatory Transfer Assistance None Accompanied by self Patient Identification Verified (Name & Yes Yes ) Patient Requires Transmission-Based No Precautions Safety Precautions Fall Prevention Height and Weight Body Mass Index (BMI) 17.2 17.2 BMI Classification Underweight Underweight Vital Signs Temperature (97.8 F-99.1 F) 97.8 F 98.3 F Temperature Source Temporal Temporal Pulse Rate (60-100) 92 91 Pulse Location Monitor Monitor Respiratory Rate (12-18) 18 16 Respiratory rate source Observation Observation Oxygen Delivery Method Room Air Blood Pressure (90/60-120/80) 93/50 L 127/67 H Blood Pressure Mean (mm Hg) 64 87 Source Monitor Monitor Position Sitting Sitting Blood Pressure Location Right Arm Right Arm History Since Last Visit- (Skip if this is Patient's initial visit) Have you changed medications since your No last visit? Any new allergies or adverse reactions No Had a fall/change in ADL's that may No increase risk of falls Signs or symptoms of abuse and/or No neglect since last visit Has dressing in place as prescribed Yes Yes Has compression in place as prescribed Yes N/A Has offloadiing in place as prescribed Yes N/A Experienced any changes in pain level or Yes No management Left Footwear Regular Shoe Right Footwear Regular Shoe Pain Scale: 0-10 Numeric Is Patient Pain Free? Yes Yes DEXTER Mcneal Nurse 1 - General Ulcer Measurement Start: 06/01/24 13:41 Freq: Status: Active Protocol: Activity Type Activity Date Activity User E-sign Co-sign Detail Recorded Client Recorded Date Recorded By Document 06/01/24 13:41 MT [id number] 06/01/24 13:43 MT Document 06/08/24 15:18 ML [id number] 06/08/24 15:26 ML 06/01/24 06/08/24 13:41 15:18 Wound Center Nurse 1 #3 L Buttock Cluster -Current Size (cm) - Length 0.3 0.3 -Current Size (cm) - Width 1.0 0.3 -Current Size (cm) - Depth 0.2 0.1 -Total Square Cm 0.30 0.09 -Photo Taken No -Tunneling No -Undermining/Tunneling No -Circular Undermining No -Exudate Amt Medium Small -Exudate Type Serosanguineous Serous -Wound Margin Flat & Intact Distinct, Outline Attached -Granulation Amt Large (67-100%) Small (1-33%) -Granulation Quality Red -Slough/Fibrin No No -Necrosis Amt None Present (0 %) -Texture (Ela-wound Skin Appearance) Assessed Assessed -Moisture (Ela-wound Skin Appearance) Assessed Assessed -Color (Ela-wound Skin Appearance) No Abnormality Assessed -Temperature (Ela-wound Skin No Abnormality No Abnormality Appearance) (Pt Warm) (Pt Warm) -Tenderness on Palpation (Ela-wound No No Skin Appearance) -Ulcer Cleansing Soap and Water Rinsed/ Irrigated with Saline -Foul Odor after Cleansing No No -Anesthetic Used 5% Lidocaine 5% Lidocaine Gel Gel Lower Limb Edema Present NA WC - Nurse 2 - General Ulcer CM Notes Start: 06/01/24 13:41 Freq: Status: Active Protocol: Activity Type Activity Date Activity User E-sign Co-sign Detail Recorded Client Recorded Date Recorded By Document 06/01/24 13:54 [facility] [id number] 06/01/24 13:58 [facility] Document 06/08/24 15:47 DS [id number] 06/08/24 15:48 DS 06/01/24 06/08/24 13:54 15:47 Wound Center Nurse 2 #3 L Buttock Cluster -Time 13:54 15:45 -Correct Patient Yes Yes -Correct Side, Site, Position Yes Yes -Correct Procedure Yes Yes -Procedure Performed Yes Yes -Type of Procedure Debridement Debridement -Clinical Debridement Subcutaneous Subcutaneous -Tissue Removed Subcutaneous Subcutaneous -Post Debridement (cm) - Length 0.3 3.2 -Post Debridement (cm) - Width 1 0.5 -Post Debridement (cm) - Depth 0.2 0.1 -Total Square (Post) (cm) 0.3 1.60 -Area of Debridement (cm) - Length 0.3 3.2 -Area of Debridement (cm) - Width 1 0.5 -Total Square (Area) (cm) 0.3 1.60 -Tunneling No No -Undermining/Tunneling No No -Circular Undermining No No -Wound/Ulcer Outcome Not Healed Not Healed -Ulcer Cleansing Rinsed/ Rinsed/ Irrigated with Irrigated with Saline Saline -Foul Odor after Cleansing No No -Bioengineered Tissue No No -Bleeding Controlled with Pressure Pressure -Treatment Response Procedure Procedure Tolerated Well Tolerated Well -Debridement - Subq, 1st 20sq cm Yes Yes Pain Scale: 0-10 Numeric Is Patient Pain Free? Yes Yes - Nurse 3 - General Ulcer D/C NN Start: 06/01/24 13:41 Freq: Status: Active Protocol: Activity Type Activity Date Activity User E-sign Co-sign Detail Recorded Client Recorded Date Recorded By Document 06/01/24 14:03 [facility] [id number] 06/01/24 14:04 [facility] Document 06/08/24 15:55 [id number] 06/08/24 15:56 06/01/24 06/08/24 14:03 15:55 Wound Care Center Nurse 3 #3 L Buttock Cluster -Ulcer Cleansing Rinsed/ Irrigated with Saline -Foul Odor after Cleansing No -Primary Dressing Applied Promogran Promogran Hien Matter, Hien Matter, Silicone Border Silicone Border Foam 4x4 Foam 4x4 -Other Dressing MOISTEN HIEN -Promogran Hien Matter 1 1 -Silicone Border Foam 4x4 1 1 Treatment Response Procedure Tolerated Well Pain Scale: 0-10 Numeric Is Patient Pain Free? Yes Yes - Visit Discharge Discharge Condition Stable Stable Ambulatory Status Ambulatory,Cane Ambulatory,Cane Transportation Private Auto Private Auto Medication Reconcilliation completed & No provided to patient/care provider Clinical Summary of Care Provided Yes Facility Type Home Health Assessment/Plan Assessment/Plan (1) Decubitus ulcer of left buttock, stage 2: CODE(S): L89.322 - Pressure ulcer of left buttock, stage 2 (2) Malnutrition: CODE(S): E46 - Unspecified protein-calorie malnutrition QUALIFIERS: Malnutrition type: protein-calorie malnutrition Protein-calorie malnutrition severity: moderate Qualified Code(s): E44.0 - Moderate protein-calorie malnutrition (3) Debility: CODE(S): R53.81 - Other malaise (4) DVT prophylaxis: CODE(S): Z29.9 - Encounter for prophylactic measures, unspecified PLAN: Plan Patient evaluated at the wound healing center today. He has home health to assist with with his dressing changes 3 times per week. Wound care - To ulcer in skin crease superior buttocks Moistened Hien covered with [place] SAP ideally daily but he only has help 3 days a week, after washing with soap and water. Barrier cream to bilateral buttocks to protect healed skin Encouraged him to off load to help prevent pressure on the ulcer and the surrounding area. Encouraged him to walk and stand to help with off loading. He drinks a boost a day but he needs better protein intake. Follow up 3 weeks.
== END 2024-06-27 23:59 | disposition home or self-care (01) ==
LOC: WC 15:30
PROVIDERS: PCP Family Medicine; Referring Provider Family Medicine; Visit Provider Nurse Practitioner Family
DX: L89.322 Pressure ulcer of left buttock, stage 2 (principal); J41.0 Simple chronic bronchitis; J44.9 Chronic obstructive pulmonary disease, unspecified; C61 Malignant neoplasm of prostate; N18.2 Chronic kidney disease, stage 2 (mild); R53.81 Other malaise; H91.90 Unspecified hearing loss, unspecified ear; N13.30 Unspecified hydronephrosis; E44.0 Moderate protein-calorie malnutrition; Z87.891 Personal history of nicotine dependence; Z68.1 Body mass index [BMI] 19.9 or less, adult
CPT/HCPCS: 11042

== ENCOUNTER 2024-07-11 15:00 | Outpatient (RCR) | payer MEDICARE, OTHER, SELFPAY ==
[2021-09-09 14:02] VITALS: BMI 19.5
[2024-06-28 00:52] VITALS: BP 127/67; PULSE 91; RESP 16; TEMP 36.8; BMI 17.2
[2024-06-29 15:10] VITALS: BP 114/65; PULSE 84; RESP 18; TEMP 36; BMI 17.2
--- NOTE | 2024-06-30 10:18 | WC ---
PHOTO 06/29/24 LEFT BUTTOCK
--- NOTE | 2024-07-06 15:49 | WC ---
Marine Hubbard UPHOLSTERER INSIDE transfers care of this patient over to Dr. Roque as of 07/06/24
[2024-07-11 14:41] VITALS: BP 132/70; PULSE 97; RESP 18; BMI 17.2
--- NOTE | 2024-07-11 16:30 | PN.PCM_ITS ---
History of Present Illness Date of Service: 07/11/24 Chief Complaint: Stage 2 pressure ulcer left buttock History of Wound: This is an 88-year-old male that [facility] and treatment of a left buttock ulcer. He has been seen in the past by another provider but had transportation issues and was not consistent with follow up. This ulcer has come and gone over the several years. He has used many topical treatments including Calmoseptine and Aquaphor to the area. He sits on a donut cushion when he is sitting on his couch which is where he spends the majority of his time during the day. He has lost approx. 40 lbs over the last several years which he attributes to some of the cause of the ulcer as he does not have as much subcutaneous tissue between his skin and his ischium. Labs from 03/14/24 showed Albumin 2.2. He does eat well but does not like protein shakes or yogurt. He is currently drinking Boost. He has a history of CKD Stage II, COPD, reduced BMI/malnutrition, on Eliquis, and frequent falls and recurrent trips to the ED. PCP is Dr. Shelton. He has home health. He tends to be non compliant in his care. Subjective Subjective Current encounter, 11 July 2024: Doing well overall with wound care. Reports that he has been attempting to pressure offload with a cushion (uses a gel cushion). Objective Data Objective Data Vital Signs: Vital Signs Temp Pulse Resp BP O2 Del Method 96.8 F L 97 18 132/70 H Room Air 06/29/24 15:10 07/11/24 14:41 07/11/24 14:41 07/11/24 14:41 07/11/24 14:41 Oxygen Delivery Method Room Air Weight: 116 lb 11.779 oz Body Mass Index (BMI) 17.2 Charges/Coding Procedures Integumentary 111xxx-113xx: 76568 Odette subq tissue 20 sq cm/< Physical Exam Const alert and no apparent distress General Appearance: cooperative and comfortable Orientation / Consciousness: awake Exam Limitations: no limitations HEENT normocephalic and head/scalp atraumatic Head and Scalp: normal to inspection, normocephalic and atraumatic Face and Sinus: normal facial exam Nose: external nose normal Eyes General Eye: normal appearance of both eyes Resp normal respiratory effort, normal air movement, no retractions and no use of accessory muscles Effort and Inspection: able to speak in complete sentences Cardio regular rate and regular rhythm Back/Spine normal ROM Skin Wound Narrative: A stage III pressure ulceration is noted on the left buttock. Dimensions are documented elsewhere. The base of the ulcer is generally pink and healthy in appearance, with a moderate amount of bioburden and fibrinous exudate with fat layer exposed (through the dermis). There is no sign of infection or cellulitis. Neuro oriented x3 and moves all extremities Sensorium / Orientation: awake, alert, oriented to person, oriented to place and oriented to time Psych mental status grossly normal Appearance: appropriate Debridement Note Debridement Note Wound debrided: Left buttock Laterality: Left Wound Grade/Stage: Stage III Type of Debridement: Excisional debridement Anesthesia Used: 4% Lidocaine Solution Depth: in the subcutaneous layer Percentage of wound debrided: 100 Instrument Used: 5mm curette Tissue Removed: Fibrinous exudate and necrotic fat in the fat layer Severity: Fat Layer Exposed Amount of bleeding with debridement: None Bleeding Controlled with: Compression and gauze Patient tolerated procedure: Patient tolerated procedure well Post-Debridement Measurements and Additional Note: Post-Debridement Measurements/Treatment - Nurse 1 - General Ulcer Assessment Start: 06/29/24 15:10 Freq: Status: Active Protocol: MAGALY Activity Type Activity Date Activity User E-sign Co-sign Detail Recorded Client Recorded Date Recorded By Document 06/29/24 15:10 [id number] 06/29/24 15:18 Document 07/11/24 14:41 [facility] [id number] 07/11/24 14:51 [facility] 06/29/24 07/11/24 15:10 14:41 - Today's Visit Information Type of service Follow-up Visit Follow-up Visit (Physician/SHINGLE TRIMMER (Physician/SHINGLE TRIMMER ) ) Arrival Mode Ambulatory,Cane Ambulatory,Cane Transfer Assistance None Patient Identification Verified (Name & Yes No ) Patient Requires Transmission-Based No Precautions Height and Weight Body Mass Index (BMI) 17.2 17.2 BMI Classification Underweight Underweight Vital Signs Temperature (97.8 F-99.1 F) 96.8 F L Temperature Source Temporal Pulse Rate (60-100) 84 97 Pulse Location Monitor Monitor Respiratory Rate (12-18) 18 18 Respiratory rate source Observation Observation Oxygen Delivery Method Room Air Room Air Blood Pressure (90/60-120/80) 114/65 132/70 H Blood Pressure Mean (mm Hg) 81 90 Source Monitor Monitor Position Sitting Sitting Blood Pressure Location Right Arm Right Arm History Since Last Visit- (Skip if this is Patient's initial visit) Have you changed medications since your No No last visit? Any new allergies or adverse reactions No No Had a fall/change in ADL's that may No No increase risk of falls Signs or symptoms of abuse and/or No No neglect since last visit Have you been in the hospital since your No No last visit? Has dressing in place as prescribed Yes Yes Has compression in place as prescribed N/A N/A Has offloadiing in place as prescribed N/A N/A Experienced any changes in pain level or No No management Left Footwear Regular Shoe Regular Shoe Right Footwear Regular Shoe Regular Shoe Pain Scale: 0-10 Numeric Is Patient Pain Free? Yes Yes WC - Nurse 1 - General Ulcer Measurement Start: 06/29/24 15:10 Freq: Status: Active Protocol: Activity Type Activity Date Activity User E-sign Co-sign Detail Recorded Client Recorded Date Recorded By Document 06/29/24 15:10 [id number] 06/29/24 15:18 KW Document 07/11/24 14:41 [facility] [id number] 07/11/24 14:51 [facility] 06/29/24 07/11/24 15:10 14:41 Wound Center Nurse 1 #3 L Buttock Cluster -Combined with other wound No -Current Size (cm) - Length 4 3.1 -Current Size (cm) - Width 0.5 2 -Current Size (cm) - Depth 0.3 0.1 -Total Square Cm 2.0 6.2 -Date of Last Picture (Recall this 06/29/24 07/11/24 field) -Photo Taken Yes -Tunneling No -Undermining/Tunneling No -Circular Undermining No -Exudate Amt Small Medium -Exudate Type Serosanguineous Serosanguineous -Wound Margin Distinct, Distinct, Outline Outline Attached Attached -Granulation Amt Large (67-100%) Large (67-100%) -Granulation Quality Bowden,Red Bowden -Slough/Fibrin No -Necrosis Amt None Present (0 %) -Texture (Ela-wound Skin Appearance) Assessed Assessed, Scarring -Moisture (Ela-wound Skin Appearance) Assessed Assessed -Color (Ela-wound Skin Appearance) Assessed, Assessed Erythema -Temperature (Ela-wound Skin No Abnormality No Abnormality Appearance) (Pt Warm) (Pt Warm) -Tenderness on Palpation (Ela-wound No No Skin Appearance) -Ulcer Cleansing Rinsed/ Rinsed/ Irrigated with Irrigated with Saline Saline -Foul Odor after Cleansing No No -Anesthetic Used 5% Lidocaine 5% Lidocaine Gel Gel WC - Nurse 2 - General Ulcer CM Notes Start: 06/29/24 15:10 Freq: Status: Active Protocol: Activity Type Activity Date Activity User E-sign Co-sign Detail Recorded Client Recorded Date Recorded By Document 06/29/24 15:26 [facility] [id number] 06/29/24 15:32 [facility] Document 07/11/24 15:00 [id number] 07/11/24 15:03 06/29/24 07/11/24 15:26 15:00 Wound Center Nurse 2 #3 L Buttock Cluster -Time 15:26 15:02 -Correct Patient Yes Yes -Correct Side, Site, Position Yes Yes -Correct Procedure Yes Yes -Procedure Performed Yes Yes -Type of Procedure Debridement Debridement -Clinical Debridement Subcutaneous Subcutaneous -Tissue Removed Subcutaneous Subcutaneous -Post Debridement (cm) - Length 4 4 -Post Debridement (cm) - Width 0.6 0.6 -Post Debridement (cm) - Depth 0.1 0.1 -Total Square (Post) (cm) 2.4 2.4 -Area of Debridement (cm) - Length 4 4 -Area of Debridement (cm) - Width 0.6 0.6 -Total Square (Area) (cm) 2.4 2.4 -Tunneling No No -Undermining/Tunneling No No -Circular Undermining No No -Wound/Ulcer Outcome Not Healed Not Healed -Ulcer Cleansing Rinsed/ Rinsed/ Irrigated with Irrigated with Saline Saline -Foul Odor after Cleansing No No -Bioengineered Tissue No No -Bleeding Controlled with Pressure Pressure -Treatment Response Procedure Procedure Tolerated Well Tolerated Well -Offloading No -Debridement - Subq, 1st 20sq cm Yes Yes Pain Scale: 0-10 Numeric Is Patient Pain Free? Yes Yes DEXTER - Nurse 3 - General Ulcer D/C NN Start: 06/29/24 15:10 Freq: Status: Active Protocol: Activity Type Activity Date Activity User E-sign Co-sign Detail Recorded Client Recorded Date Recorded By Document 06/29/24 15:37 [id number] 06/29/24 15:38 Document 07/11/24 15:13 [facility] [id number] 07/11/24 15:14 [facility] 06/29/24 07/11/24 15:37 15:13 Wound Care Center Nurse 3 #3 L Buttock Cluster -Ulcer Cleansing Rinsed/ Rinsed/ Irrigated with Irrigated with Saline Saline -Foul Odor after Cleansing No -Primary Dressing Applied NonAdherent Contact Layer -Other Dressing xeroform -Primary Dressing Covered/Secured with Dry Gauze, Dry Gauze, Secured with Secured with Tape Tape Treatment Response Procedure Tolerated Well Pain Scale: 0-10 Numeric Is Patient Pain Free? Yes Yes WC - Visit Discharge Discharge Condition Stable Stable Ambulatory Status Ambulatory,Cane Ambulatory,Cane Transportation Private Auto Private Auto Accompanied by waits in [facility] Medication Reconcilliation completed & No provided to patient/care provider Clinical Summary of Care Provided Yes Assessment/Plan Assessment/Plan (1) Decubitus ulcer of left buttock, stage 2: CODE(S): L89.322 - Pressure ulcer of left buttock, stage 2 (2) Malnutrition: CODE(S): E46 - Unspecified protein-calorie malnutrition QUALIFIERS: Malnutrition type: protein-calorie malnutrition Protein-calorie malnutrition severity: moderate Qualified Code(s): E44.0 - Moderate protein-calorie malnutrition (3) Debility: CODE(S): R53.81 - Other malaise (4) DVT prophylaxis: CODE(S): Z29.9 - Encounter for prophylactic measures, unspecified PLAN: Plan Patient evaluated at the wound healing center today. He has home health to assist with with his dressing changes 3 times per week. Wound care - To ulcer in skin crease superior buttocks Moistened P[place] covered with [place] SAP ideally daily but he only has help 3 days a week, after washing with soap and water. Barrier cream to bilateral buttocks to protect healed skin Encouraged him to off load to help prevent pressure on the ulcer and the surrounding area. Encouraged him to walk and stand to help with off loading. He drinks a boost a day but he needs better protein intake. Follow up 3 weeks. Will have him see dietary next visit for nutrition consultation. Patient will follow up with Johnny Shelton for his regular cancer screening coordination.
--- NOTE | 2024-07-12 14:58 | WC ---
PHOTO 07/11/24 LEFT BUTTOCK
--- NOTE | 2024-07-12 14:59 | WC ---
PHOTO 07/11/24 LEFT BUTTOCK
== END 2024-07-27 23:59 | disposition home or self-care (01) ==
LOC: WC 15:00
PROVIDERS: PCP Family Medicine; Referring Provider Family Medicine; Visit Provider Surgery Plastic and Reconstructive Surgery
DX: L89.323 Pressure ulcer of left buttock, stage 3 (principal); J44.9 Chronic obstructive pulmonary disease, unspecified; N18.2 Chronic kidney disease, stage 2 (mild); R53.81 Other malaise; E44.0 Moderate protein-calorie malnutrition; Z68.1 Body mass index [BMI] 19.9 or less, adult
CPT/HCPCS: 11042

== ENCOUNTER 2024-08-01 13:19 | Outpatient (RCR) | payer MEDICARE, OTHER, SELFPAY ==
[2021-09-09 14:02] VITALS: BMI 19.5
[2024-07-28 00:39] VITALS: BP 132/70; PULSE 97; RESP 18; TEMP 36; BMI 17.2
[2024-08-01 14:33] VITALS: BP 120/51; PULSE 90; RESP 16; TEMP 36.3; BMI 17.2
--- NOTE | 2024-08-01 16:37 | NS ---
08/01/24: ANABELN attempted to meet with pt after his appointment with Dr. Roque today, however pt declined to meet with RDN at this time. RDN offered to reschedule for a different date and pt was agreeable. Will plan to call and set up a time to meet with pt on another date. Cyndi Robert RDN, LD
--- NOTE | 2024-08-02 13:28 | WC ---
photo 08/01/24 left buttock
--- NOTE | 2024-08-02 17:35 | PN.PCM_ITS ---
History of Present Illness Date of Service: 08/01/24 Chief Complaint: Stage 2 pressure ulcer left buttock History of Wound: This is an 88-year-old male that [facility] and treatment of a left buttock ulcer. He has been seen in the past by another provider but had transportation issues and was not consistent with follow up. This ulcer has come and gone over the several years. He has used many topical treatments including Calmoseptine and Aquaphor to the area. He sits on a donut cushion when he is sitting on his couch which is where he spends the majority of his time during the day. He has lost approx. 40 lbs over the last several years which he attributes to some of the cause of the ulcer as he does not have as much subcutaneous tissue between his skin and his ischium. Labs from 03/14/24 showed Albumin 2.2. He does eat well but does not like protein shakes or yogurt. He is currently drinking Boost. He has a history of CKD Stage II, COPD, reduced BMI/malnutrition, on Eliquis, and frequent falls and recurrent trips to the ED. PCP is Dr. Shelton. He has home health. He tends to be non compliant in his care. Subjective Subjective 11 July 2024: Doing well overall with wound care. Reports that he has been attempting to pressure offload with a cushion (uses a gel cushion). Current encounter, 01 Aug 2024: Reports excellent wound care and has been pressure offloading with a cushion; however, he sleeps sitting in a chair. We discussed sleeping in a different position so as to prevent constant pressure on the wound. Objective Data Objective Data Vital Signs: Vital Signs Temp Pulse Resp BP O2 Del Method 97.3 F L 90 16 120/51 L Room Air 08/01/24 14:33 08/01/24 14:33 08/01/24 14:33 08/01/24 14:33 08/01/24 14:33 Oxygen Delivery Method Room Air Weight: 116 lb 11.779 oz Body Mass Index (BMI) 17.2 Charges/Coding Wound Center CF Procedures [id number]: [id number] RMVL DEVITAL TIS 20 CM/< Multi Select Codes Wound Center CF Procedures [id number]: [id number] RMVL DEVITAL TIS 20 CM/< Physical Exam Const alert and no apparent distress General Appearance: cooperative and comfortable Orientation / Consciousness: awake Exam Limitations: no limitations HEENT normocephalic and head/scalp atraumatic Head and Scalp: normal to inspection, normocephalic and atraumatic Face and Sinus: normal facial exam Nose: external nose normal Eyes General Eye: normal appearance of both eyes Resp normal respiratory effort, normal air movement, no retractions and no use of accessory muscles Effort and Inspection: able to speak in complete sentences Cardio regular rate and regular rhythm Back/Spine normal ROM Skin Wound Narrative: A stage 2 pressure ulceration is noted on the left buttock. Dimensions are one by one and 0.1 cm. The base of the ulcer is generally pink and healthy in appearance, with a moderate amount of bioburden and fibrinous exudate with fat layer exposed (through the dermis). There is no sign of infection or cellulitis. Neuro oriented x3 and moves all extremities Sensorium / Orientation: awake, alert, oriented to person, oriented to place and oriented to time Psych mental status grossly normal Appearance: appropriate Debridement Note Debridement Note Wound debrided: Left buttock wound Laterality: Left Wound Grade/Stage: Stage II Type of Debridement: Excisional debridement Anesthesia Used: 4% Lidocaine Solution Depth: Down to and including healthy tissue Percentage of wound debrided: 100 Instrument Used: 5mm curette Tissue Removed: Necrotic fibrinous exudate and biofilm Severity: Limited To Skin Breakdown Amount of bleeding with debridement: Mild Bleeding Controlled with: Compression and gauze Patient tolerated procedure: Patient tolerated procedure well Post-Debridement Measurements and Additional Note: Post-Debridement Measurements/Treatment - Nurse 1 - General Ulcer Assessment Start: 08/01/24 14:33 Freq: Status: Active Protocol: MAGALY Activity Type Activity Date Activity User E-sign Co-sign Detail Recorded Client Recorded Date Recorded By Document 08/01/24 14:33 KW [id number] 08/01/24 14:37 KW 08/01/24 14:33 - Today's Visit Information Type of service 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 ) Arrival Mode Ambulatory,Cane Patient Identification Verified (Name & Yes ) Height and Weight Body Mass Index (BMI) 17.2 BMI Classification Underweight Vital Signs Temperature (97.8 F-99.1 F) 97.3 F L Temperature Source Temporal Pulse Rate (60-100) 90 Pulse Location Monitor Respiratory Rate (12-18) 16 Respiratory rate source Observation Oxygen Delivery Method Room Air Blood Pressure (90/60-120/80) 120/51 L Blood Pressure Mean (mm Hg) 74 Source Monitor Position Semi-Fowlers Blood Pressure Location Right Arm History Since Last Visit- (Skip if this is Patient's initial visit) Have you changed medications since your No last visit? Any new allergies or adverse reactions No Had a fall/change in ADL's that may No increase risk of falls Signs or symptoms of abuse and/or No neglect since last visit Have you been in the hospital since your No last visit? Has dressing in place as prescribed Yes Has compression in place as prescribed N/A Has offloadiing in place as prescribed N/A Experienced any changes in pain level or No management Left Footwear Regular Shoe Right Footwear Regular Shoe Pain Scale: 0-10 Numeric Is Patient Pain Free? Yes WC - Nurse 1 - General Ulcer Measurement Start: 08/01/24 14:33 Freq: Status: Active Protocol: Activity Type Activity Date Activity User E-sign Co-sign Detail Recorded Client Recorded Date Recorded By Document 08/01/24 14:33 KW [id number] 08/01/24 14:37 KW 08/01/24 14:33 Wound Center Nurse 1 #3 L Buttock Cluster -Current Size (cm) - Length 3 -Current Size (cm) - Width 2.4 -Current Size (cm) - Depth 0.1 -Total Square Cm 7.2 -Date of Last Picture (Recall this 08/01/24 field) -Exudate Amt Small -Exudate Type Serosanguineous -Wound Margin Distinct, Outline Attached -Granulation Amt Large (67-100%) -Granulation Quality Red -Texture (Ela-wound Skin Appearance) Assessed -Moisture (Ela-wound Skin Appearance) Assessed -Color (Ela-wound Skin Appearance) Assessed, Hemosiderin Staining -Temperature (Ela-wound Skin No Abnormality Appearance) (Pt Warm) -Tenderness on Palpation (Ela-wound No Skin Appearance) -Ulcer Cleansing Rinsed/ Irrigated with Saline -Foul Odor after Cleansing No -Anesthetic Used 5% Lidocaine Gel WC - Nurse 2 - General Ulcer CM Notes Start: 08/01/24 14:33 Freq: Status: Active Protocol: Activity Type Activity Date Activity User E-sign Co-sign Detail Recorded Client Recorded Date Recorded By Document 08/01/24 14:59 JF [id number] 08/01/24 15:00 JF 08/01/24 14:59 Wound Center Nurse 2 -Time 14:59 -Correct Patient Yes -Correct Side, Site, Position Yes -Correct Procedure Yes -Procedure Performed Yes -Type of Procedure Debridement -Clinical Debridement Epidermis / Dermis -Tissue Removed Epidermis -Post Debridement (cm) - Length 1 -Post Debridement (cm) - Width 1 -Post Debridement (cm) - Depth 0.1 -Total Square (Post) (cm) 1 -Area of Debridement (cm) - Length 1 -Area of Debridement (cm) - Width 1 -Total Square (Area) (cm) 1 -Tunneling No -Undermining/Tunneling No -Circular Undermining No -Wound/Ulcer Outcome Not Healed -Ulcer Cleansing Rinsed/ Irrigated with Saline -Foul Odor after Cleansing No -Bioengineered Tissue No -Bleeding Controlled with Pressure -Treatment Response Procedure Tolerated Well -Offloading No -Debridement - Open, 1st 20sq cm Yes Pain Scale: 0-10 Numeric Is Patient Pain Free? Yes WC - Nurse 3 - General Ulcer D/C NN Start: 08/01/24 14:33 Freq: Status: Active Protocol: Activity Type Activity Date Activity User E-sign Co-sign Detail Recorded Client Recorded Date Recorded By Document 08/01/24 15:05 [id number] 08/01/24 15:06 08/01/24 15:05 Wound Care Center Nurse 3 #3 L Buttock Cluster -Ulcer Cleansing Rinsed/ Irrigated with Saline -Other Dressing hydrogel -Primary Dressing Covered/Secured with Dry Gauze, Secured with Tape -Hydrogel 1 Pain Scale: 0-10 Numeric Is Patient Pain Free? Yes Assessment/Plan Assessment/Plan (1) Decubitus ulcer of left buttock, stage 2: CODE(S): L89.322 - Pressure ulcer of left buttock, stage 2 (2) Malnutrition: CODE(S): E46 - Unspecified protein-calorie malnutrition QUALIFIERS: Malnutrition type: protein-calorie malnutrition Protein-calorie malnutrition severity: moderate Qualified Code(s): E44.0 - Mo derate protein-calorie malnutrition (3) Debility: CODE(S): R53.81 - Other malaise (4) DVT prophylaxis: CODE(S): Z29.9 - Encounter for prophylactic measures, unspecified PLAN: Plan Patient evaluated at the wound healing center today. Hydrogel 3 times per day to the buttock wound Encouraged him to off load to help prevent pressure on the ulcer and the surrounding area. Encouraged him to walk and stand to help with off loading. He drinks a boost a day but he needs better protein intake. Plan for nutrition consultation at next appointment Follow-up in 3 weeks
== END 2024-08-27 23:59 | disposition home or self-care (01) ==
LOC: WC 13:19
PROVIDERS: PCP Family Medicine; Referring Provider Family Medicine; Visit Provider Surgery Plastic and Reconstructive Surgery
DX: L89.322 Pressure ulcer of left buttock, stage 2 (principal); J44.9 Chronic obstructive pulmonary disease, unspecified; N18.2 Chronic kidney disease, stage 2 (mild); R29.6 Repeated falls; R53.81 Other malaise; Z79.899 Other long term (current) drug therapy
CPT/HCPCS: 97597

== ENCOUNTER 2024-08-29 14:27 | Outpatient (RCR) | payer MEDICARE, OTHER, SELFPAY ==
[2021-09-09 14:02] VITALS: BMI 19.5
[2024-08-28 00:39] VITALS: BP 120/51; PULSE 90; RESP 16; TEMP 36.3; BMI 17.2
[2024-08-29 14:38] VITALS: BP 116/81; PULSE 84; RESP 18; TEMP 36.8; BMI 17.2
--- NOTE | 2024-08-29 16:47 | PCM.WC.PN ---
History of Present Illness Date of Service: 08/29/24 Chief Complaint: Stage 2 pressure ulcer left buttock History of Wound: This is an 88-year-old male that [facility] for evaluation and treatment of a left buttock ulcer. He has been seen in the past by another provider but had transportation issues and was not consistent with follow up. This ulcer has come and gone over the several years. He has used many topical treatments including Calmoseptine and Aquaphor to the area. He sits on a donut cushion when he is sitting on his couch which is where he spends the majority of his time during the day. He has lost approx. 40 lbs over the last several years which he attributes to some of the cause of the ulcer as he does not have as much subcutaneous tissue between his skin and his ischium. Labs from 03/14/24 showed Albumin 2.2. He does eat well but does not like protein shakes or yogurt. He is currently drinking Boost. He has a history of CKD Stage II, COPD, reduced BMI/malnutrition, on Eliquis, and frequent falls and recurrent trips to the ED. PCP is Dr. Shelton. He has home health. He tends to be non compliant in his care. Subjective Subjective 11 July 2024: Doing well overall with wound care. Reports that he has been attempting to pressure offload with a cushion (uses a gel cushion). 01 Aug 2024: Reports excellent wound care and has been pressure offloading with a cushion; however, he sleeps sitting in a chair. We discussed sleeping in a different position so as to prevent constant pressure on the wound. Current encounter, 29 August 2024: Doing well overall. Feels like he is healed. No concerns today. He is not interested in a screening such as a colonoscopy (he has had some unintentional weight loss, and we discussed this today). Objective Data Objective Data Vital Signs: Vital Signs Temp Pulse Resp BP O2 Del Method 98.2 F 84 18 116/81 H Room Air 08/29/24 14:38 08/29/24 14:38 08/29/24 14:38 08/29/24 14:38 08/29/24 14:38 Oxygen Delivery Method Room Air Weight: 116 lb 11.779 oz Body Mass Index (BMI) 17.2 Charges/Coding Visit Charges Office Visits / Consults: 53360 OV L3 Est 20min Physical Exam Narrative Gluteal wounds of healed Debridement Note Debridement Note No debridement was completed: No debridement was completed today Post-Debridement Measurements and Additional Note: Post-Debridement Measurements/Treatment - Nurse 1 - General Ulcer Assessment Start: 08/29/24 14:31 Freq: Status: Active Protocol: DEXTER.HEMANTH Activity Type Activity Date Activity User E-sign Co-sign Detail Recorded Client Recorded Date Recorded By Document 08/29/24 14:38 KW [id number] 08/29/24 14:43 08/29/24 14:38 WC - Today's Visit Information Type of service Follow-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 (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 [employer] ) Arrival Mode Ambulatory,Cane Patient Identification Verified (Name & Yes ) Height and Weight Body Mass Index (BMI) 17.2 BMI Classification Underweight Vital Signs Temperature (97.8 F-99.1 F) 98.2 F Temperature Source Temporal Pulse Rate (60-100) 84 Pulse Location Monitor Respiratory Rate (12-18) 18 Respiratory rate source Observation Oxygen Delivery Method Room Air Blood Pressure (90/60-120/80) 116/81 H Blood Pressure Mean (mm Hg) 92 Source Monitor Position Sitting Blood Pressure Location Right Arm History Since Last Visit- (Skip if this is Patient's initial visit) Have you changed medications since your No last visit? Any new allergies or adverse reactions No Had a fall/change in ADL's that may No increase risk of falls Signs or symptoms of abuse and/or No neglect since last visit Have you been in the hospital since your No last visit? Has dressing in place as prescribed Yes Has compression in place as prescribed N/A Has offloadiing in place as prescribed N/A Experienced any changes in pain level or No management Left Footwear Regular Shoe Right Footwear Regular Shoe Pain Scale: 0-10 Numeric Is Patient Pain Free? Yes - Nurse 1 - General Ulcer Measurement Start: 08/29/24 14:31 Freq: Status: Active Protocol: Activity Type Activity Date Activity User E-sign Co-sign Detail Recorded Client Recorded Date Recorded By Document 08/29/24 14:38 KW [id number] 08/29/24 14:43 08/29/24 14:38 Wound Center Nurse 1 #3 L Buttock Cluster -Current Size (cm) - Length 0.1 -Current Size (cm) - Width 0.1 -Current Size (cm) - Depth 0 -Total Square Cm 0.01 -Granulation Amt None Present (0 %) -Texture (Ela-wound Skin Appearance) Assessed -Moisture (Ela-wound Skin Appearance) Assessed,Dry/ Scaly -Color (Ela-wound Skin Appearance) Assessed, Erythema -Temperature (Ela-wound Skin No Abnormality Appearance) (Pt Warm) -Tenderness on Palpation (Ela-wound No Skin Appearance) -Ulcer Cleansing Soap and Water -Foul Odor after Cleansing No WC - Nurse 2 - General Ulcer CM Notes Start: 08/29/24 14:31 Freq: Status: Active Protocol: Activity Type Activity Date Activity User E-sign Co-sign Detail Recorded Client Recorded Date Recorded By Document 08/29/24 14:55 BETH [id number] 08/29/24 14:56 BETH 08/29/24 14:55 Wound Center Nurse 2 -Correct Patient Yes -Correct Side, Site, Position No -Correct Procedure No -Procedure Performed No -Post Debridement (cm) - Length 0 -Post Debridement (cm) - Width 0 -Post Debridement (cm) - Depth 0 -Total Square (Post) (cm) 0 -Area of Debridement (cm) - Length 0 -Area of Debridement (cm) - Width 0 -Total Square (Area) (cm) 0 -Wound/Ulcer Outcome Healed- Epithelialized Pain Scale: 0-10 Numeric Is Patient Pain Free? Yes Assessment/Plan Assessment/Plan (1) Decubitus ulcer of left buttock, stage 2: CODE(S): L89.322 - Pressure ulcer of left buttock, stage 2 (2) Malnutrition: CODE(S): E46 - Unspecified protein-calorie malnutrition QUALIFIERS: Malnutrition type: protein-calorie malnutrition Protein-calorie malnutrition severity: moderate Qualified Code(s): E44.0 - Moderate protein-calorie malnutrition (3) Debility: CODE(S): R53.81 - Other malaise (4) DVT prophylaxis: CODE(S): Z29.9 - Encounter for prophylactic measures, unspecified PLAN: Plan Patient healed Discussed protecting fresh skin Discussed nutrition and weight gain (patient met with our dietitian today) Follow-up as needed
== END 2024-09-26 23:59 | disposition home or self-care (01) ==
LOC: WC 14:27
PROVIDERS: PCP Family Medicine; Referring Provider Family Medicine; Visit Provider Surgery Plastic and Reconstructive Surgery
DX: Z09 Encounter for follow-up examination after completed treatment for conditions other than malignant neoplasm (principal); J44.9 Chronic obstructive pulmonary disease, unspecified; R53.81 Other malaise; N18.2 Chronic kidney disease, stage 2 (mild); E44.0 Moderate protein-calorie malnutrition; Z68.1 Body mass index [BMI] 19.9 or less, adult; Z91.199 Patient's noncompliance with other medical treatment and regimen due to unspecified reason
CPT/HCPCS: 97802; 99213; G0463

== ENCOUNTER → 2024-08-30 | Outpatient (CLI) | payer MEDICARE, OTHER, SELFPAY ==
[2021-09-09 14:02] VITALS: BMI 19.5
[2024-08-30 16:58] LABS: PSA,Total- Diagnostic 0.46 ng/mL (0.00-4.00)
== END | disposition home or self-care (01) ==
PROVIDERS: PCP Family Medicine; Referring Provider Urology; Visit Provider Nurse Practitioner
DX: C61 Malignant neoplasm of prostate (principal); R30.0 Dysuria
CPT/HCPCS: 36415; 84153; 87086; 87088

== ENCOUNTER 2024-09-14 09:11 | Day surgery (SDC) | payer MEDICARE, OTHER, SELFPAY ==
[2021-09-09 14:02] VITALS: BMI 19.5
--- NOTE | 2024-09-02 13:41 | PAT.ANESEVAL ---
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 When Was Last Pacemaker Check QUESTION #4 FULL TEXT: You/Your Family Experience fever (hyperthermia) with Anesthesia Last Oral Intake Last Oral intake: Last Oral Intake NPO since Meds taken in AM with sips of water? Meds patient instructed to take am of surgery PONV PONV - letter sorting machine operator: PONV - letter sorting machine operator Female No 09/02/24 13:29 HX of Motion Sickness No 09/02/24 13:29 HX of N/V After Surgery No 09/02/24 13:29 Non-Smoker Yes 09/02/24 13:29 Duration of Surgery greater No 09/02/24 13:29 than 60 minutes Number of Risk Factors 1 09/02/24 13:29 PONV Score Low Risk 09/02/24 13:29 Height & Weight Height & Weight: Anesthesia: Height & Weight Height 5 ft 9 in 08/29/24 15:18 Respiratory Assessment Respiratory Assessment - letter sorting machine operator: Respiratory Tract Infection Hx - letter sorting machine operator Hx Respiratory Tract Infection No 09/02/24 13:29 STOP Sleep Apnea STOP Sleep Apnea - letter sorting machine operator: STOP Sleep Apnea - letter sorting machine operator Hx Hypertension No 09/02/24 13:29 Hx Sleep Apnea No 09/02/24 13:29 CPAP No 02/03/24 16:40 BIPAP No 02/02/24 10:36 Do you snore loudly (louder No 09/02/24 13:29 than talking or can be heard Do you often feel tired/ Yes 09/02/24 13:29 fatigued/ sleepy during daytime? Has anyone observed you stop No 09/02/24 13:29 breathing during sleep? STOP Results Negative 09/02/24 13:29 QUESTION #5 FULL TEXT : Do you snore loudly (louder than talking or can be heard through closed doors)? 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 Specify any problems Hx of Preganancy in last 3 N/A 09/02/24 13:29 Months Nurse Filling Out Transfusion DSCHRIBER 09/02/24 13:29 & Questions: Date: 09/02/24 09/02/24 13:29 Time: 13:30 09/02/24 13:29 Patient unable to answer at this time (ie. confused, unrespo /Reproduction History /Reproductive History - letter sorting machine operator: /Reproductive Hx- letter sorting machine operator Hx Now No 09/02/24 13:29 Gestational Age (in weeks): EDC: Hx Hx Para Hx Section SAB No 09/02/24 13:29 PFSH Medical History (Updated 09/02/24 @ 13:37 by Cira Warner) Wears hearing aid Pressure ulcer Ambulates with cane Easy bruising History of broken collarbone Blackout Shortness of breath on exertion Hx of fracture of hip Former smoker Vitamin D insufficiency Abnormal results of thyroid function studies Loss of hearing Wears glasses Wears partial dentures Cancer Alcohol use Arthritis Back pain History of edema History of SIADH Chronic bronchitis Hydronephrosis Former smoker Closed intertrochanteric fracture of left femur Kidney failure Prostate cancer Hyponatremia Prostatic cancer Home Medications ?Medication ?Instructions ?Recorded ?Last Taken ?Type NK 03/31/24 Unknown History Allergy/AdvReac Type Severity Reaction Status Date / Time No Known Allergies Allergy Verified 09/02/24 13:27 Family History Mother Heart disease Father Heart disease Surgical History (Updated 09/02/24 @ 13:31 by Cira Warner) History of cystoscopy Hx of cystoscopy History of open reduction and internal fixation (ORIF) procedure History of open reduction and internal fixation (ORIF) procedure History of transurethral resection of prostate Status post appendectomy History of renal stent H/O hernia repair Social History household members: spouse and other details: [address]. He sleeps downstairs in a recliner. 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 Sinus tachycardia 123 bpm. With premature atrial complexes. Otherwise normal EKG. Recommendation Anesthesia Recommendation Anesthesia recommendation: OPTIMIZED for anesthesia
[2024-09-14] VITALS (10 sets, daily range): BP systolic 99–139; BP diastolic 68–93; PULSE 67–73; RESP 16–18; TEMP 36.1–36.4; O2SAT 96–100; BMI 15.6
[2024-09-14] MEDS: Lactated Ringers 1,000 ML 15 ML IV (09:44)
--- NOTE | 2024-09-14 10:27 | PCM.PRE.AN2 ---
ASA Classification* ASA Classification ASA Classification: 3 Assessment & Plan Anesthesia* Anesthesia Assessment Anesthesia Assessment: Discussed sedation and/or anesthesia options, risks, benefits, and alternatives with patient/parents/legal guardian/POA. Questions invited. The patient/parents/legal guardian/POA seems to understand and agrees to proceed with anesthesia plan. Reviewed the physical assessment, medical history, allergy history and patient home medications list prior to surgery/procedure/anesthetic and documented any changes. Performed airway and anesthesia risk assessments. Anesthesia Type Anesthesia Type: MAC History Source History Obtained from:: Patient and Chart Anesthesia Focused Assessment* Temperature: 97.6 F Pulse Rate: 72 Blood Pressure: 134/93 Respiratory Rate: 16 Pulse Ox: 97 Oxygen Delivery Method: Room Air Airway Assessment Mouth opens: >3 cm Mallampati Score: III Teeth Condition: Partial (Patient has upper partial.) Neck Range of motion (ROM): Limited ROM (Somewhat decreased extension) Labs Anesthesia Preop lab: CBC WBC 12.1 K/mm3 (4.4-11.0) H 03/14/24 22:40 03/14/24 RBC 3.93 M/mm3 (4.6-6.2) L 03/14/24 22:40 03/14/24 Hgb 11.9 g/dL (13.0-16.5) L 03/14/24 22:40 03/14/24 Hct 35.9 % (40-54) L 03/14/24 22:40 03/14/24 Plt Count 376 K/mm3 (150-450) 03/14/24 22:40 03/14/24 CHEMISTRY Potassium 4.7 mmol/L (3.5-5.1) 03/14/24 22:40 03/14/24 Sodium 130 mmol/L (136-145) L 03/14/24 22:40 03/14/24 Magnesium 2.1 mg/dL (1.6-2.6) 03/09/24 00:15 03/09/24 Phosphorus 3.0 mg/dL (2.5-4.9) 03/09/24 00:15 03/09/24 BUN 21 mg/dL (7-18) H 03/14/24 22:40 03/14/24 Creatinine 0.94 mg/dL (0.70-1.30) 03/14/24 22:40 03/14/24 Glucose 123 mg/dL (74-106) H 03/14/24 22:40 03/14/24 TSH 0.77 uIU/mL (0.358-3.74) 10/10/21 15:22 10/10/21 COAG PT 14.0 SECONDS (11.7-14.9) 04/09/23 21:15 04/09/23 Pre-Assessment Diagnosis/Proposed Procedure Planned Operative Procedure(s): RIGHT STENT CHANGE CYSTO Anesthesia History 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 When Was Last Pacemaker Check QUESTION #4 FULL TEXT: You/Your Family Experience fever (hyperthermia) with Anesthesia Last Oral Intake Last Oral intake: Last Oral Intake NPO since 18:00 09/14/24 09:39 Meds taken in AM with sips of No 09/14/24 09:39 water? Meds patient instructed to take am of surgery PONV PONV - production assembly supervisor: PONV - production assembly supervisor Female No 09/02/24 13:29 HX of Motion Sickness No 09/02/24 13:29 HX of N/V After Surgery No 09/02/24 13:29 Non-Smoker Yes 09/02/24 13:29 Duration of Surgery greater No 09/02/24 13:29 than 60 minutes Number of Risk Factors 1 09/02/24 13:29 PONV Score Low Risk 09/02/24 13:29 Height & Weight Height & Weight: Anesthesia: Height & Weight Height 5 ft 9 in 09/14/24 09:39 Weight: 48.1 kg 09/14/24 09:39 Body Mass Index (BMI) 15.6 09/14/24 09:39 Respiratory Assessment Respiratory Assessment - production assembly supervisor: Respiratory Tract Infection Hx - production assembly supervisor Hx Respiratory Tract Infection No 09/02/24 13:29 STOP Sleep Apnea STOP Sleep Apnea - production assembly supervisor: STOP Sleep Apnea - production assembly supervisor Hx Hypertension No 09/02/24 13:29 Hx Sleep Apnea No 09/02/24 13:29 CPAP No 02/03/24 16:40 BIPAP No 02/02/24 10:36 Do you snore loudly (louder No 09/02/24 13:29 than talking or can be heard Do you often feel tired/ Yes 09/02/24 13:29 fatigued/ sleepy during daytime? Has anyone observed you stop No 09/02/24 13:29 breathing during sleep? STOP Results Negative 09/02/24 13:29 QUESTION #5 FULL TEXT : Do you snore loudly (louder than talking or can be heard through closed doors)? Tobacco Use History Tobacco Use History - production assembly supervisor: Tobacco Use History - production assembly supervisor Tobacco Use Smoking Status Former smoker 09/02/24 13:29 Hx Tobacco Use No 09/02/24 13:29 Years Smoking Packs Smoked per Day Smoking Cessation Date was Yes - quit smoking within 15 09/02/24 13:29 within the last 15 years years Hx Smoking Cessation Date 05/26/19 09/02/24 13:29 Hx Smoking Cessation No 09/02/24 13:29 Counseling Hematologic Medial History Hematologic Hx - production assembly supervisor: Hematologic Medical Hx - rock splitter Hx of Blood Transfusion No 09/02/24 13:29 Hx of Transfusion in last 3 No 09/02/24 13:29 Months Date of Last Transfusion (if within last 3 months) Ever experience any problems No 09/02/24 13:29 with transfusion(s)? Specify any problems Hx of Preganancy in last 3 N/A 09/02/24 13:29 Months Nurse Filling Out Transfusion DSCHRIBER 09/02/24 13:29 & Questions: Date: 09/02/24 09/02/24 13:29 Time: 13:30 09/02/24 13:29 Patient unable to answer at this time (ie. confused, unrespo /Reproduction History /Reproductive History - production assembly supervisor: /Reproductive Hx- production assembly supervisor Hx Now No 09/02/24 13:29 Gestational Age (in weeks): EDC: Hx Hx Para Hx Section SAB No 09/02/24 13:29 Active Medications Active Medications: Current Medications Generic Name Dose Route Start Last Admin Trade Name Freq PRN Reason Stop Dose Admin Cefazolin Sodium 2 gm/ Sodium 110 mls @ 150 mls/hr 09/14/24 11:25 Chloride IV 09/14/24 12:08 INTRAOP ONE Lactated Ringer's 1,000 mls @ 15 mls/hr 09/14/24 09:15 09/14/24 09:44 IV 15 mls/hr .Q48H EDWARD Administration PFSH Medical History Wears hearing aid Pressure ulcer Ambulates with cane Easy bruising History of broken collarbone Blackout Shortness of breath on exertion Hx of fracture of hip Former smoker Vitamin D insufficiency Abnormal results of thyroid function studies Loss of hearing Wears glasses Wears partial dentures Cancer Alcohol use Arthritis Back pain History of edema History of SIADH Chronic bronchitis Hydronephrosis Former smoker Closed intertrochanteric fracture of left femur Kidney failure Prostate cancer Hyponatremia Prostatic cancer Home Medications ?Medication ?Instructions ?Recorded ?Last Taken ?Type NK 03/31/24 Unknown History Allergy/AdvReac Type Severity Reaction Status Date / Time No Known Allergies Allergy Verified 09/14/24 09:38 Family History Mother Heart disease Father Heart disease Surgical History History of cystoscopy Hx of cystoscopy History of open reduction and internal fixation (ORIF) procedure History of open reduction and internal fixation (ORIF) procedure History of transurethral resection of prostate Status post appendectomy History of renal stent H/O hernia repair Social History household members: spouse and other details: 2 st0ry house. He sleeps downstairs in a recliner. 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
--- NOTE | 2024-09-14 11:52 | OP.PCM_ITS ---
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 Post-Operative Diagnosis: Same Surgery/Procedure Performed: Cystoscopy and right stent change and retrograde pyelogram crystal cutter: No Type of Anesthesia: MAC RN Documented Start/Stop Times: Operation Date: 09/14/24 11:25 Case Time Into Pre-Op 09/14/24 09:14 Out of Pre-Op 09/14/24 11:21 Anesthesia Start 09/14/24 11:28 Into Room 09/14/24 11:28 Procedure Start Time: 11: Procedure Stop Time: 11:53 Select all DRAINS/GRAFTS/IMPLANTS that apply: Drains Drain details: 6 x 26 stent Estimated Blood Loss: 0 Specimen collected: No Description of surgery: Patient was taken back to the operating room after induction of general anesthesia, the patient was placed in dorsolithotomy position. The urethra and genitals were prepped and draped in usual sterile fashion. Using a 21 [place] Islander rigid cystourethroscope the entire length of the urethra was normal then went into the bladder. Identified the trigone the left and right ureteral orifice. I then cannulated the right ureteral orifice and advanced a wire up into the kidney. I then backloaded a 5 [place] Islander open ended catheter over the wire and injected contrast to delineate the anatomy. After the retrograde was performed I then used fluoroscopic images and guidance to advanced a wire up into the kidney and over the 0.038 glidewire I advanced a 6 [place] Islander by 26 cm double pigtail stent. I then pulled the 0.038 Glidewire off and the stent coiled in the kidney bladder good position. The bladder was then drained. We confirmed the position of the stent by fluoroscopy. Patient anesthetic was reversed and was taken back to the PACU in good condition. Surgical Findings: NEW STENT OLD STENT SIGNIFICANT ENCRUSTED Complications Complications: No Admit VTE Documentation VTE Present on Admission: No VTE Mechan Device Prophylaxis: SCD's VTE Pharm Prophylaxis ordered?: No
--- NOTE | 2024-09-14 11:52 | PCM.DC ---
Discharge Instructions Diet Discharge Diet: No restrictions DC O2, CPAP, BIPAP needs Home O2 Discharge instructions: No Dressing / Incision Discharge Activity: Return to Normal Activity and May Not Drive (while taking narcotic pain medications.) Additional Activity Instructions:: Patient can remove his own catheter in 2 days Dressing / Incision Call your doctor if you observe: Fever of 101 or Higher Follow Up Care Please Follow Up With: Gildardo Hollingsworth MD When: Call [phone] for an appointment Test Results: Test results from this visit will be discussed in further detail at your follow-up appointment, if applicable. Discharge Plan Admission Primary Reason for Your Visit: Stent change Attending Provider: Gildardo Hollingsworth Primary Care Provider: Johnny Shelton Instructions Print Language: Citizen Of [place] Discharge Orders/Prescriptions Prescriptions: No Action NK Referrals / Follow Up: Johnny Shelton DO [Primary Care Provider] - Disposition Disposition (needs filled in before D/C Order can be placed): Home, Self Care
--- NOTE | 2024-09-14 13:40 | PCM.POST.ANE ---
Anesthesia: Postop Eval I Current Vital Signs Temperature: 97 F Pulse Rate: 72 Blood Pressure: 128/72 Respiratory Rate: 18 Pulse Ox: 99 Oxygen Delivery Method: Room Air Assessment Airway patent: Yes Spontaneous unlabored respirations: Yes Mental status: Awake nausea: No Vomiting: No Anesthesia Complication: Yes Anesthesia Complication Comment:: no Fluid Hydration Crystalloid volume administer (ml): 200 Total IV fluid infused: 200 Progress Note Anesthesia document: Postop Eval 1 completed: Yes
--- NOTE | 2024-09-14 16:35 | POSTOPAN2_ITS ---
Anesthesia Postop Eval I Sum Postop Eval Completion status Anesthesia document: Postop Eval 1 completed: Yes Anesthesia Postop Eval I Summary Anesthesia Postop Eval I Summary: Anesthesia Postop Eval I: Assessment Summary Airway patent Yes 09/14/24 13:41 RESIZER OPERATOR.ACAR Spontaneous unlabored Yes 09/14/24 13:41 RESIZER OPERATOR.ACAR respirations Mental status Awake 09/14/24 13:41 RESIZER OPERATOR.ACAR nausea No 09/14/24 13:41 RESIZER OPERATOR.ACAR Vomiting No 09/14/24 13:41 RESIZER OPERATOR.ACAR Anesthesia Postop Eval I: Fluid Summary Crystalloid volume administer 200 09/14/24 13:41 RESIZER OPERATOR.ACAR (ml) Colloids volume administered ( ml) Blood Product volume administered (ml) Total IV fluid infused 200 09/14/24 13:41 RESIZER OPERATOR.ACAR Anesthesia Postop Eval I: Summary Notes Anesthesia Complication Yes 09/14/24 13:41 RESIZER OPERATOR.ACAR Anesthesia Complication no 09/14/24 13:41 RESIZER OPERATOR.ACAR Comment: Post-operative progress note Anesthesia: Postop Eval II Evaluation Mental status: Awake and Calm Pain Level: 0 nausea: No Vomiting: No Complications Anesthesia Complication: No
--- NOTE | 2024-09-14 16:35 | PCM.POSTANE2 ---
Anesthesia Postop Eval I Sum Postop Eval Completion status Anesthesia document: Postop Eval 1 completed: Yes Anesthesia Postop Eval I Summary Anesthesia Postop Eval I Summary: Anesthesia Postop Eval I: Assessment Summary Airway patent Yes 09/14/24 13:41 FINANCE CONSULTANT.ACAR Spontaneous unlabored Yes 09/14/24 13:41 FINANCE CONSULTANT.ACAR respirations Mental status Awake 09/14/24 13:41 FINANCE CONSULTANT.ACAR nausea No 09/14/24 13:41 FINANCE CONSULTANT.ACAR Vomiting No 09/14/24 13:41 FINANCE CONSULTANT.ACAR Anesthesia Postop Eval I: Fluid Summary Crystalloid volume administer 200 09/14/24 13:41 FINANCE CONSULTANT.ACAR (ml) Colloids volume administered ( ml) Blood Product volume administered (ml) Total IV fluid infused 200 09/14/24 13:41 FINANCE CONSULTANT.ACAR Anesthesia Postop Eval I: Summary Notes Anesthesia Complication Yes 09/14/24 13:41 FINANCE CONSULTANT.ACAR Anesthesia Complication no 09/14/24 13:41 FINANCE CONSULTANT.ACAR Comment: Post-operative progress note Anesthesia: Postop Eval II Evaluation Mental status: Awake and Calm Pain Level: 0 nausea: No Vomiting: No Complications Anesthesia Complication: No
== END 2024-09-14 13:28 | disposition home or self-care (01) ==
LOC: SDC 09:11 → AC 09:12
PROVIDERS: PCP Family Medicine; Referring Provider Urology; Visit Provider Urology
PROC: (CPT 52332; principal; 2024-09-14 11:15)
DX: N13.5 Crossing vessel and stricture of ureter without hydronephrosis (principal); C61 Malignant neoplasm of prostate; Z85.46 Personal history of malignant neoplasm of prostate; Z87.891 Personal history of nicotine dependence
CPT/HCPCS: 52351; 52332; 00910; 76000; 80048; 85025; 99283; A4216; C1769; C2617

== ENCOUNTER 2024-09-14 21:07 | Emergency (ER) | payer MEDICARE, OTHER, SELFPAY ==
[2021-09-09 14:02] VITALS: BMI 19.5
[2024-09-14 21:09] VITALS: BP 181/90; PULSE 93; RESP 16; TEMP 36.7; O2SAT 97; BMI 16.0
[2024-09-14] MEDS: 0.9% Normal Saline (1000mL) 1,000 ML 999 ML IV (22:28)
[2024-09-14 22:40] LABS: Absolute Lymphocyte Count 0.63 X10^3/uL (0.83-4.51); Absolute Neutrophil Count 5.5 X10^3/uL (2.0-7.7); Basophil# 0.02 X10^3/uL; Basophil% 0.3 % (0-1); Eosinophil# 0.06 X10^3/uL; Eosinophils% 0.9 % (0-5); Hematocrit 41.4 % (40-54); Hemoglobin 13.5 g/dL (13.0-16.5); Lymphocyte # 0.63 X10^3/ul (0.83-4.51); Lymphocyte % 9.3 % (19-41); Mean Corp Hgb Conc 32.6 g/dL (32-36); Mean Corpuscular Hgb 29.9 pg (27.0-32.0); Mean Corpuscular Volume 91.6 fL (80-94); Mean Platelet Vol. 9.3 fl (6.2-12.0); Monocyte# 0.48 X10^3/uL; Monocyte% 7.1 % (0-10); NRBC Flagged by Analyzer 0 % (0-5); Neutrophil # 5.53 X10^3/uL (2.7-7.7); Neutrophil % 81.4 % (47-70); Platelet Count 186 K/mm3 (150-450); RBC Distribution Width CV 14.7 % (11.6-14.6); RBC Distribution Width SD 49.8 fl (35.1-43.9); Red Blood Count 4.52 M/mm3 (4.6-6.2); White Blood Count 6.8 K/mm3 (4.4-11.0)
[2024-09-14 22:47] LABS: Anion Gap 9 (5-15); BUN 22 mg/dL (4-19); BUN/Creat Ratio 21.3 RATIO (10-20); Calcium,Total 8.8 mg/dL (7.6-11.0); Carbon Dioxide 27.1 mmol/L (21.0-32.0); Chloride 98 mmol/L (98-108); Creatinine, Serum 1.03 mg/dL (0.70-1.20); EST Glomerular Filtration Rate 70 (>60); Estimated Creatinine Clearance 34.67 ml/min (50-250); Glucose 91 mg/dL (70-99); Potassium 4.6 mmol/L (3.3-5.1); Sodium Level 134 mmol/L (133-145)
--- OUTSIDE RECORDS SUMMARY | 2024-09-14 22:57 | XMS RPT_ITS | CCD ---
Author Organization [facility] Care Team Providers Care Director Of Clinical Services Name Role Phone Unavailable Primary Care Provider Unavailabl e No, Physician Primary Care Provider Unavailabl e HAKEEM PEREZ Attending Unavaila ble HAKEEM PEREZ Attending Unavaila ble NO, PHYSICIAN Primary Care Unavailable HAKEEM PEREZ Attending Unavaila ble NO, PHYSICIAN Primary Care Unavailable Zac HEBERT MD, Iggy Mesa Primary Care Provider Lela vailable Care Physician, No Primary Primary Care Provider Unavailable Dr. Xavier Rae Emergency Provider Dr. Gamaliel Herring Admit Provider Dr. Gamaliel Herring Attending Provider Dr. Gamaliel Herring Other Provider Dr. Hitesh Holguin Other Provider Dr. Sung Sharma Attending Provider Dr. Sung Sharma Other Provider Dr. Shira Pacheco Other Provider Abrahan, Dr. Scott Macdonald Admit Provider Semenambrocio, Dr. Scott Macdonald Attending Provider Semenambrocio, Dr. Scott Macdonald Other Provider Care Physician, No Primary Referring Provider Un available Dr. Heriberto Walters Attending Provider Dr. Johnny Shelton Primary Care Provider Dr. Emily Baltazar Emergency Provider Dr. Johnny Aguillon Admit Provider Dr. Johnny Aguillon Attending Provider Pal, Dr. Turner Other Provider Dr. Hitesh Holguin Other Provider Sementi, Dr. Scott Macdonald Admit Provider Sementi, Dr. Scott Macdonald Attending Provider Sementi, Dr. Scott Macdonald Other Provider Sementi, Dr. Scott Macdonald Referring Provider Dr. Johnny Shelton Primary Care Provider Dr. Emily Baltazar Emergency Provider Pal, Dr. Turner Admit Provider Dr. Johnny Aguillon Attending Provider Terangelica, Dr. Turner Other Provider Dr. Hitesh Holguin Other Provider Sementi, Dr. Scott Macdonald Admit Provider Sementi, Dr. Scott Macdonald Attending Provider Sementi, Dr. Scott Macdonald Other Provider Dr. Johnny Shelton Primary Care Provider Sementi, Dr. Scott Macdonald Admit Provider Sementi, Dr. Scott Macdonald Attending Provider Sementi, Dr. Scott Macdonald Other Provider Dr. Johnny Shelton Primary Care Provider Dr. Abhishek Isabel Emergency Provider Koram, Dr. Twila Jain Admit Provider Kormorena, Dr. Twila Jain Other Provider Zachary, Dr. Almaraz Attending Provider Zachary, Dr. Almaraz Other Provider Dr. Sarita Melgar Attending Provider Ramón, Dr. Stein Other Provider Dr. Gabriel Duckworth Other Provider Dr. Johnny Shelton Primary Care Provider Dr. Abhishek Isabel Emergency Provider Petr, Dr. Twila Jain Admit Provider Kormorena, Dr. Twila Jain Other Provider Zachary, Dr. Almaraz Attending Provider Zachary, Dr. Almaraz Other Provider Ramón, Dr. Stein Attending Provider Ramón, Dr. Stein Other Provider Dr. Gabriel Duckworth Other Provider Cat GRIFFITH, Dr. Turner Primary Care Provider Dr. Abdulaziz Lopes DO Emergency Provider Dr. Tiff Langley MD Admit Provider Dr. Tiff Langley MD Other Provider Dr. Lucius Ulloa DO Attending Provider Shivam CRABTREE, Dr. Tiff Velásquez Attending Provider Dr. Vitaliy Malloy DO Attending Provider Dr. Vitaliy Malloy DO Emergency Provider Dr. Raphael Dee DO Attending Provider Dr. Raphael Dee DO Emergency Provider Dr. Johnny Shelton DO Referring Provider Afsaneh CRABTREE, Dr. Garner Attending Provider Stevie 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-C, Marine E Attending Provider Stevie 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-C, Marine E Other Provider Stevie 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-C, Marine E Referring Provider Benjamin CRABTREE, Dr. Franki Mesa Attending Provider Dr. Johnny Shelton DO Primary Care Provider Cat GRIFFITH, Dr. Turner Referring Provider Mya CRABTREE, Dr. Rios Attending Provider Mya CRABTREE, Dr. Rios Referring Provider Mya CRABTREE, Dr. Rios Other Provider [phone] Zayda Montero Attending Provider Darrick CRABTREE, Dr. Gildardo Barlow Referring Provider Gabriel Roque Consulting Unavailable Sishodan, Gabriel Referring Unavailable Siska, Gabriel Attending Unavailable Cat, Johnny Primary Care Unavailable Cat, Johnny Referring Unavailable Cat, Johnny Primary Care Unavailable Stevie 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, Marine E Attending Unavailabl e Cat, Johnny Primary Care Unavailable Cat, Johnny Referring Unavailable Chantale Mazariegos NP Attending Unavailable Cat, Johnny Primary Care Unavailable SibGabriel duffy V Referring Unavailable SibiliaGabriel V Attending Unavailable Cat, Johnny Primary Care Unavailable Zayda Montero Attending Unavailable Gildardo Hollingsworth Referring Unavailable Cat, Johnny Primary Care Unavailable Vitaliy Malloy Attending Unavailable Raphael Dee Attending Unavailable Cat, Johnny Primary Care Unavailable Cat, Johnny Referring Unavailable Cat, Johnny Primary Care Unavailable Stevie 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, Marine E Attending Unavailabl e Cat, Johnny Primary Care Unavailable Stevie 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, Marine E Referring Unavailabl e Stevie 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, Marine E Attending Unavailabl e Stevie 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, Marine E Consulting Unavailabl e Siska, Gabriel Consulting Unavailable Sishodan, Gabriel Referring Unavailable Sishodan, Gabriel Attending Unavailable Cat, Johnny Primary Care Unavailable Cat, Johnny Referring Unavailable Cat, Johnny Primary Care Unavailable Stevie 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, Marine E Attending Unavailabl e Stevie 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, Marine E Consulting Unavailabl e Cat, Johnny Primary Care Unavailable Stevie 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, Marine E Referring Unavailabl e Stevie 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, Marine E Attending Unavailabl e Stevie 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, Marine E Consulting Unavailabl e Cat, Johnny Primary Care Unavailable Mya, Gabriel Attending Unavailable Siska, Gabriel Consulting Unavailable Cat, Johnny Referring Unavailable Cat, Johnny Primary Care Unavailable Cat, Johnny Referring Unavailable Pascual Shelby Attending Unavailable Cat, Johnny Referring Unavailable Siska, Gabriel Attending Unavailable Cat, Johnny Primary Care Unavailable Cat, Johnny Primary Care Unavailable Heriberto Gomez Attending Unavailable Cat, Johnny Primary Care Unavailable White, Tiff L Consulting Unavailable White, Tiff L Admitting Unavailable Lucius Ulloa Attending Unavailable Cat, Johnny Primary Care Unavailable Gildardo Hollingsworth Referring Unavailable Darrick, Gildardo Barlow Attending Unavailable Cat, Johnny Primary Care Unavailable DarrickGildardo Attending Unavailable Cat, Johnny Primary Care Unavailable Sibilia, Gabriel V Referring Unavailable Sibilia, Gabriel Gaming Attending Unavailable Siska, Gabriel Attending Unavailable Cat, Johnny Referring Unavailable Cat, Johnny Primary Care Unavailable Cat, Johnny Referring Unavailable Siska, Gabriel Attending Unavailable Cat, Johnny Primary Care Unavailable Cat, Johnny Primary Care Unavailable Justin Aldrich Attending Unavailable White, Tiff L Attending Unavailable White, Tiff L Consulting Unavailable White, Tiff L Admitting Unavailable Cat, Johnny Primary Care Unavailable CatDr. Johnny pace DO Primary Care Provider Dr. Johnny Shelton DO Referring Provider [phone] Stevie CONTRERAS-Marine Lizama Attending Provider Stevie 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-CMarine Other Provider Darrick CRABTREE, Dr. Gildardo Barlow Attending Provider Medications Current Medications Medication Drug Class(es) Dates Sig (Normalized) Sig (Original) amoxicillin 875 mg / clavulanate 125 mg oral tablet (1 source) Penicillin-class Antibacterial Start: 04-14-2023 take 1 tablet by mouth twice daily Amoxicillin-Pot Clavulanate Active 1 TABLET PO TWICE A DAY 4 April 14, 2023 12:00am azithromycin 250 mg oral tablet (3 sources) Macrolide Antimicrobial Start: 08-26-2021 take 2 tablets by mouth once daily Azithromycin (Zithromax) 250 mg tablet Active 250 MG PO DAILY 4 August 26, 2021 2:43pm start on day 2 of therapy Start: 05-26-2021 take 2 tablets by mo [facility] once daily Azithromycin (Zithromax) 250 mg tablet Active 250 MG PO DAILY 4 May 26, 2021 10:08pm start on day 2 of therapy calcitriol 0.49746 mg oral capsule (8 sources) Vitamin D3 Analog Start: 09-20-2021 take 0.25 ug by mouth once daily Calcitriol Active 0.25 MCG PO DAILY September 20, 2021 4:01pm doxycycline monohydrate 100 mg oral capsule (3 sources) Tetracycline-cl ass Drug Start: 02-23-2022 take 100 mg by mouth twice daily Doxycycline Monohydrate Active 100 MG PO TWICE A DAY February 23, 2022 1:00am ferric citrate 1000 mg oral tablet (1 source) Start: 09-20-2021 take 1 tablet by mouth at lunch Ferric Citrate (Auryxia) 210 mg iron tablet Active 210 MG PO WITH LUNCH September 20, 2021 4:01pm administer with lunch and the vitamin C tablet ferrous sulfate 325 mg oral tablet (20 sources) Start: 09-27-2021 take 325 mg by mouth once daily Ferrous Sulfate Active 325 MG PO DAILY September 27, 2021 12:00am Start: 09-07-2021 End: 09-20-2021 take 1 tablet by mouth every other day Ferrous Sulfate (Ferosul) 325 mg (65 mg iron) tablet Discontinued 325 mg PO EVERY OTHER DAY September 07, 2021 2:36pm September 20, 2021 4:01pm FOR 3 MONTHS magnesium chloride 535 mg delayed release oral tablet (8 sources) Start: 09-20-2021 take 1 tablet by mouth once daily Magnesium Chloride (Mag 64) 64 mg Tablet,Delayed Release (Dr/Ec) Active 64 MG PO DAILY September 20, 2021 12:00am Nirmatrelvir-Ritonavi r (3 sources) Start: 02-23-2022 Nirmatrelvir-R itonavir (Paxlovid (Eua)) 300 mg (150 mg x 2)-100 mg tablets,dose pack Active 0 PO .COMPLEX February 23, 2022 1:00am take TWO 150 mg tablets of nirmatrelvir with ONE 100 mg tablet of ritonavir twice daily for 5 days Start: 02-23-2022 Nirmatrelvir-R itonavir (Paxlovid (Eua)) 300 mg (150 mg x 2)- 100 mg tablets,dose pack Active 0 PO .COMPLEX February 23, 2022 12:00am take TWO 150 mg tablets of nirmatrelvir with ONE 100 mg tablet of ritonavir twice daily for 5 days [place] (Nk) (10 sources) Start: 03-31-2024 [place] (Nk) A ctive March 31, 2024 1:00am Start: 04-09-2023 [place] (Nk) A ctive April 09, 2023 1:00am Start: 04-09-2023 [place] (Nk) A ctive April 09, 2023 12:00am Start: 11-25-2022 [place] (Nk) A ctive November 25, 2022 12:00am Completed/Discontinued Medications Medication Drug Class(es) Dates Sig (Normalized) Sig (Original) acetaminophen 325 mg oral tablet (20 sources) Start: 11-28-2022 End: 03-08-2023 Acetaminophen 325 mg Tablet Discontinued 650 mg PO EVERY 6 HOURS NEEDED as needed for Pain 1-10 Or Fever >100.7 0 November 28, 2022 12:00am March 08, 2023 8:10pm Start: 11-28-2022 End: 03-08-2023 take 650 mg by mouth every six hours as needed Acetaminophen Discontinued 650 MG PO EVERY 6 HOURS NEEDED 0 November 28, 2022 12:00am March 08, 2023 8:10pm Start: 09-07-2021 End: 11-25-2022 take 2 tablets by mouth every eight hours as needed for pain Acetaminophen 500 mg tablet Discontinued 1000 mg PO EVERY 8 HOURS as needed for pain September 20, 2021 4:01pm November 25, 2022 5:46am Start: 09-07-2021 End: 11-25-2022 take 1000 mg by mouth every eight hours Acetaminophen Discontinued 1000 MG PO EVERY 8 HOURS September 20, 2021 4:01pm November 25, 2022 5:46am acetaminophen 325 mg / HYDROcodone bitartrate 5 mg oral tablet (4 sources) Opioid Agonist Start: 02-10-2024 End: 02-24-2024 Hydrocodone-Acetaminophen 5-325 mg tablet Discontinued 1 {tbl} PO EVERY 4 HOURS NEEDED as needed for Pain 12 2 February 10, 2024 February 24, 2024 9:25am acetaminophen 325 mg / oxyCODONE hydrochloride 5 mg oral tablet (4 sources) Opioid Agonist Start: 01-31-2024 End: 02-24-2024 Oxycodone-Acetaminophen 5-325 mg tablet Discontinued 1 {tbl} PO EVERY 6 HOURS NEEDED as needed for Pain 12 January 31, 2024 February 24, 2024 9:26am apixaban 2.5 mg oral tablet (20 sources) Factor Xa Inhibitor Start: 09-07-2021 End: 09-20-2021 take 1 tablet by mouth twice daily Apixaban (Eliquis) 2.5 mg tablet Discontinued 2.5 mg PO TWICE A DAY September 07, 2021 2:34pm September 20, 2021 4:01pm DVT prophylaxis for 35 days. ascorbic acid 500 mg oral tablet (20 sources) Vitamin C Start: 09-07-2021 End: 09-20-2021 take 1 tablet by mouth twice daily at mealtime Ascorbic Acid (Vitamin C) 500 mg tablet Discontinued 500 mg PO TWICE DAILY WITH MEALS September 07, 2021 2:34pm September 20, 2021 4:01pm aspirin 81 mg oral tablet (14 sources) Platelet Aggregation Inhibitor, Nonsteroidal Anti-inflammator y Drug Start: 12-11-2022 End: 03-08-2023 take 1 capsule by mouth twice daily at mealtime Aspirin 81 mg capsule Discontinued 81 mg PO TWICE A DAY December 11, 2022 12:00am March 08, 2023 8:10pm Take with food. Can discontinue after 12/26/22 B cmplx 4/vit D3/C/folic/zinc (VITAL-D RX ORAL) (1 source) B cmplx 4/vit D3/C/folic/zinc (VITAL-D RX ORAL) Take by mouth once daily. 0 Active Comment on above: Take by mouth once d aily. bicalutamide 50 mg oral tablet (20 sources) Androgen Receptor Inhibitor Start: 10-05-2014 End: 05-18-2017 take 1 tablet by mouth once daily Bicalutamide 50 MG tablet Discontinued 50 mg PO DAILY October 05, 2014 12:00am May 18, 2017 12:38pm calcium carbonate 500 mg chewable tablet (20 sources) Start: 11-28-2022 End: 12-11-2022 take 1 tablet by mouth three times daily at mealtime Calcium Carbonate 200 mg calcium (500 mg) Tablet,Chewable Discontinued 500 mg PO 3 TIMES DAILY WITH MEALS 0 November 28, 2022 12:00am December 11, 2022 2:38pm Start: 09-20-2021 take 500 mg by mouth twice daily at mealtime Calcium Carbonate Active 500 MG PO TWICE DAILY WITH MEALS 0 September 20, 2021 12:00am Start: 09-07-2021 End: 09-20-2021 take 1 tablet by mouth three times daily at mealtime Calcium Carbonate 200 mg calcium (500 mg) tablet,chewable Discontinued 500 mg PO 3 TIMES DAILY WITH MEALS September 07, 2021 2:34pm September 20, 2021 3:52pm calcium carbonate 1250 mg / cholecalciferol 0.01 mg oral tablet (14 sources) Vitamin D Start: 12-11-2022 End: 03-08-2023 take 1 tablet by mouth twice daily at mealtime Calcium Carbonate-Vitamin D3 (Calcium 500 With D) 500 mg-10 mcg (400 unit) tablet Discontinued 1 {tbl} PO TWICE A DAY 60 December 11, 2022 12:00am March 08, 2023 8:09pm On Hold: MD Ordered 1 tab twice a day with food to prevent bone loss cefdinir 300 mg oral capsule (16 sources) Cephalosporin Antibacterial Start: 03-15-2024 End: 03-31-2024 take 1 capsule by mouth every twelve hours Cefdinir 300 mg capsule Discontinued 300 mg PO Q12H 14 March 15, 2024 1:00am March 31, 2024 8:48pm Start: 01-02-2023 End: 03-08-2023 take 1 capsule by mouth twice daily Cefdinir 300 mg capsule Discontinued 300 mg PO TWICE A DAY 14 January 02, 2023 12:00am March 08, 2023 8:10pm cephalexin 500 mg oral capsule (16 sources) Cephalosporin Antibacterial Start: 10-08-2022 End: 11-25-2022 take 1 capsule by mouth twice daily Cephalexin 500 mg capsule Discontinued 500 mg PO TWICE A DAY October 08, 2022 12:00am November 25, 2022 5:47am cholecalciferol 0.125 mg oral capsule (20 sources) Vitamin D Start: 09-07-2021 End: 09-20-2021 take 1 capsule by mouth once daily Cholecalciferol (Vitamin D3) 125 mcg (5,000 unit) capsule Discontinued 125 ug PO DAILY September 07, 2021 2:36pm September 20, 2021 4:01pm ciprofloxacin 500 mg oral tablet (20 sources) Quinolone Antimicrobial Start: 02-03-2024 End: 02-24-2024 take 1 tablet by mouth twice daily Ciprofloxacin Hcl (Cipro) 500 mg tablet Discontinued 500 mg PO TWICE A DAY February 03, 2024 1:00am February 24, 2024 9:25am Start: 03-08-2023 End: 04-09-2023 take 1 tablet by mouth every twelve hours Ciprofloxacin Hcl 500 mg tablet Discontinued 500 mg PO Q12H March 08, 2023 1:00am April 09, 2023 10:06pm Start: 10-02-2021 take 1 tablet by damián th twice daily Ciprofloxacin Hcl (Cipro) 500 mg tablet Active 500 MG PO TWICE A DAY October 02, 2021 12:00am docusate sodium 50 mg / sennosides, care home 8.6 mg oral tablet (20 sources) Start: 11-28-2022 End: 12-11-2022 Sennosides-Docusate Sodium ( Stool Softener-Stimulant Laxat) 8.6-50 mg Tablet Discontinued 2 {tbl} PO TWICE A DAY November 28, 2022 12:00am December 11, 2022 2:39pm Start: 09-07-2021 End: 09-20-2021 Sennosides-Docusate Sodium ( Stool Softener-Stimulant Laxat) 8.6-50 mg tablet Discontinued 2 {tbl} PO TWICE A DAY September 07, 2021 2:36pm September 20, 2021 4:01pm gabapentin 100 mg oral capsule (20 sources) Anti-epileptic Agent Start: 09-20-2021 End: 09-27-2021 take 3 capsules by mouth once Gabapentin 100 mg Capsule Discontinued 300 mg PO 1999September 20, 2021 12:00am September 27, 2021 10:49am take this 1 hour prior to going to bed Start: 09-20-2021 End: 09-27-2021 take 300 mg by mouth once Gabapentin Discontinued 300 MG PO 1999September 20, 2021 12:00am September 27, 2021 10:49am take this 1 hour prior to going to bed heparin sodium, porcine 5000 unt/ml injectable solution (15 sources) Unfractionated Heparin, Anti-coagulant Start: 11-28-2022 End: 12-11-2022 Heparin (Porcine) 5,000 unit/mL Solution Discontinued 5000 U SC EVERY 12 HOURS November 28, 2022 12:00am December 11, 2022 2:38pm levoFLOXacin 500 mg oral tablet (20 sources) Quinolone Antimicrobial Start: 03-08-2023 End: 04-09-2023 take 1 tablet by mouth once daily Levofloxacin 500 mg tablet Discontinued 500 mg PO DAILY March 08, 2023 1:00am April 09, 2023 10:06pm Start: 05-16-2017 End: 05-18-2017 take 1 tablet by mouth once daily Levofloxacin 750 MG tablet Discontinued 750 mg PO DAILY May 16, 2017 1:00am May 18, 2017 12:39pm Menthol / Zinc Oxide (20 sources) Start: 12-11-2022 End: 03-08-2023 Menthol-Zinc Oxide (Calmosep cass) 0.44-20.6 % Ointment Discontinued 1 NMA TOPICAL 4 TIMES DAILY December 11, 2022 2:44pm March 08, 2023 8:09pm Apply to affected areas 4 times a day Please contact the information source for Protocol details. Start: 12-11-2022 End: 03-08-2023 Menthol-Zinc Oxide (Calmosep cass) 0.44-20.6 % Ointment Discontinued 1 APPLIC TOPICAL 4 TIMES DAILY December 11, 2022 2:44pm March 08, 2023 8:09pm Apply to affected areas 4 times a day Start: 12-11-2022 End: 03-08-2023 Menthol-Zinc Oxide (Calmosep cass) 0.44-20.6 % Ointment Discontinued 1 APPLIC TOPICAL 4 TIMES DAILY December 11, 2022 1:44pm March 08, 2023 7:09pm Apply to affected areas 4 times a day Start: 12-11-2022 Menthol-Zinc O xide (Calmoseptine) 0.44-20.6 % Ointment Active 1 APPLIC TOPICAL 4 TIMES DAILY December 11, 2022 1:44pm Apply to affected areas 4 times a day Start: 12-11-2022 Menthol-Zinc O xide (Calmoseptine) 0.44-20.6 % Ointment Active 1 APPLIC TOPICAL 4 TIMES DAILY 113 December 11, 2022 2:44pm Apply to affected areas 4 times a day Start: 11-28-2022 End: 12-11-2022 Menthol-Zinc Oxide (Calmosep cass) 0.44-20.6 % Ointment Discontinued 1 NMA TOPICAL 4 TIMES DAILY 0 November 28, 2022 12:00am December 11, 2022 2:44pm Apply to affected areas 4 times a day Please contact the information source for Protocol details. Start: 11-28-2022 End: 12-11-2022 Menthol-Zinc Oxide (Calmosep cass) 0.44-20.6 % Ointment Discontinued 1 APPLIC TOPICAL 4 TIMES DAILY 0 November 27, 2022 11:00pm December 11, 2022 1:44pm Apply to affected areas 4 times a day Start: 11-28-2022 End: 12-11-2022 Menthol-Zinc Oxide (Calmosep cass) 0.44-20.6 % Ointment Discontinued 1 APPLIC TOPICAL 4 TIMES DAILY 0 November 28, 2022 12:00am December 11, 2022 2:44pm Apply to affected areas 4 times a day Start: 11-28-2022 Menthol-Zinc O xide (Calmoseptine) 0.44-20.6 % Ointment Active 1 APPLIC TOPICAL 4 TIMES DAILY 0 November 28, 2022 12:00am Apply to affected areas 4 times a day nystatin [id number] unt/ml topical cream (18 sources) Polyene Antifungal Start: 06-29-2024 End: 09-02-2024 Nystatin 100,000 unit/gram cream Discontinued 1 NMA TOPICAL TWICE A DAY 26 01June 29, 2024 12:00am September 02, 2024 1:28pm ela wound Start: 11-28-2022 End: 12-11-2022 Nystatin (Nyamyc) 100,000 un it/gram Powder Discontinued 1 NMA TOPICAL THREE TIMES A DAY 0 November 28, 2022 12:00am December 11, 2022 2:39pm Please contact the information source for Protocol details. Start: 11-28-2022 End: 12-11-2022 Nystatin ([facility]) 100,000 un it/gram Powder Discontinued 1 APPLIC TOPICAL THREE TIMES A DAY 0 November 28, 2022 12:00am December 11, 2022 2:39pm oxyCODONE hydrochloride 5 mg oral tablet (20 sources) Opioid Agonist Start: 12-11-2022 End: 12-26-2022 take 1 tablet by mouth every six hours as needed for pain Oxycodone 5 mg tablet Discontinued 5 mg PO EVERY 6 HOURS as needed for pain 12 7 December 11, 2022 December 26, 2022 9:37am Start: 11-28-2022 End: 12-11-2022 take 2 tablets by mouth every four hours as needed for pain Oxycodone 5 mg Tablet Discontinued 10 mg PO EVERY 4 HOURS NEEDED as needed for Pain Score 4-10 0 November 28, 2022 December 11, 2022 2:39pm Start: 11-28-2022 End: 12-11-2022 take 10 mg by mouth every four hours as needed Oxycodone Discontinued 10 MG PO EVERY 4 HOURS NEEDED 0 November 28, 2022 December 11, 2022 2:39pm Start: 09-07-2021 End: 09-20-2021 take 1 tablet by mouth every four hours as needed for pain Oxycodone 5 mg tablet Discontinued 5 mg PO EVERY 4 HOURS NEEDED as needed for Pain (Scale Score 7-10) September 07, 2021 2:36pm September 20, 2021 3:55pm tamsulosin hydrochloride 0.4 mg oral capsule (11 sources) alpha-Adrenergic Jin Start: 03-08-2023 End: 04-09-2023 take 1 capsule by mouth every twenty-four hours Tamsulosin 0.4 mg capsule Discontinued 0.4 mg PO Q24H March 08, 2023 1:00am April 09, 2023 10:06pm Problems Active Problems Problem Classification Problem Date Documented Da te Episodic/Chronic Abdominal pain (4 sources) Abdominal pain; Translations: [Unspecified abdominal pain] 02-18-2024 Episodic Acute bronchitis (5 sources) Acute bronchitis; Translations: [Acute bronchitis, unspecified] Episodic Acute posthemorrhagic anemia (20 sources) Acute posthemorrhagic anemia; Translations: [Acute posthemorrhagic anemia] Episodic Cancer of bronchus; lung (1 source) Non-small cell lung cancer; Translations: [Malignant neoplasm of unspecified part of left bronchus or lung] Onset: 0 01-26-2020 Chronic Cancer of prostate (20 sources) Malignant tumor of prostate; Translations: [Malignant neoplasm of prostate] Onset: 5 Chronic Comment on above: 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.....resolved on most recent PET scan Cataract (4 sources) Bilateral cataracts; Translations: [Unspecified cataract] 09-18-2020 Chronic Chronic obstructive pulmonary disease and bronchiectasis (20 sources) Chronic bronchitis; Translations: [Unspecified chronic bronchitis] Onset: 4 Chronic Chronic obstructive pulmonary disease and bronchiectasis (20 sources) Bronchitis; Translations: [Bronchitis, not specified as acute or chronic] 09-03-2021 Episodic Chronic ulcer of 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) Pressure ulcer of sacral region; Translations: [Pressure ulcer of sacral region, stage 1] Onset: 8 05-26-2017 Chronic Complication of device; implant or graft (4 sources) Obstruction of urinary stent; Translations: [Other mechanical complication of indwelling ureteral stent, initial encounter] 02-08-2024 Episodic Diseases of white blood cells (20 sources) Leukopenia; Translations: [Decreased white blood cell count, unspecified] Chronic Fever of unknown origin (11 sources) Fever; Translations: [Fever, unspecified] Onset: 4 03-23-2024 Episodic Fluid and electrolyte disorders (20 sources) Hyponatremia; Translations: [Hypo-osmolality and hyponatremia] Episodic Fracture of neck of femur (hip) (20 sources) Closed intertrochanteric fracture; Translations: [Displaced intertrochanteric fracture of left femur, initial encounter for closed fracture] Episodic Fracture of neck of femur (hip) (20 sources) Fracture of bone of hip region; Translations: [Fracture of unspecified part of neck of right femur, initial encounter for closed fracture] 11-25-2022 Episodic Genitourinary symptoms and ill-defined conditions (20 sources) Blood in urine; Translations: [Hematuria, unspecified] Episodic Hyperplasia of prostate (1 source) Benign prostatic hyperplasia; Translations: [Benign prostatic hyperplasia with lower urinary tract symptoms] Onset: 5 09-20-2014 Chronic Influenza (5 sources) Influenza; Translations: [Influenza due to unidentified influenza virus with other respiratory manifestations] Episodic Malaise and fatigue (20 sources) Asthenia; Translations: [Other malaise] Onset: 5 Episodic Malignant neoplasm without specification of site (10 sources) Malignant neoplastic disease; Translations: [Malignant (primary) neoplasm, unspecified] Onset: 5 06-04-2024 Chronic Comment on above: LUNG NODULE/HAD RADI ATION 2 YRS AGO LUNG NODULE/HAD RADI ATION 10 YRS AGO Mycoses (6 sources) Onychomycosis; Translations: [Tinea unguium] Episodic Noninfectious gastroenteritis (5 sources) Gastroenteritis; Translations: [Noninfective gastroenteritis and colitis, unspecified] Episodic Nutritional deficiencies (20 sources) Undernutrition; Translations: [Unspecified protein-calorie malnutrition] Onset: 8 05-26-2017 Chronic Other connective tissue disease (1 source) Pain of toe of right foot; Translations: [Pain in right toe(s)] Episodic Other connective tissue disease (1 source) Pain of toe of left foot; Translations: [Pain in left toe(s)] Episodic Other diseases of kidney and ureters (1 source) Other specified disorders of kidney and ureter; Translations: [Other specified disorders of kidney and ureter] Onset: 4 Chronic Other diseases of kidney and ureters (5 sources) Kidney disease; Translations: [Disorder of kidney and ureter, unspecified] Episodic Other diseases of kidney and ureters (20 sources) Hydronephrosis; Translations: [Unspecified hydronephrosis] 09-09-2021 Episodic Comment on above: R hydronephrosis and Hydroureter.....JJ stent is in place. The last change in the stent was September [address] Hollingsworth. Other diseases of kidney and ureters (7 sources) Unspecified hydronephrosis; Translations: [Hydronephrosis] Onset: 5 Episodic Other ear and sense organ disorders (8 sources) Hearing loss; Translations: [Unspecified hearing loss, unspecified ear] 06-04-2024 Chronic Other ear and sense organ disorders (2 sources) Unspecified hearing loss, unspecified ear; Translations: [Unspecified hearing loss, unspecified ear] Onset: 5 Chronic Other gastrointestinal disorders (2 sources) Personal history of other diseases of the digestive system; Translations: [Personal history of other diseases of the digestive system] Onset: 5 Episodic Other injuries and conditions due to external causes (8 sources) H/O: hip fracture; Translations: [Personal history of (healed) traumatic fracture] 06-04-2024 Episodic Comment on above: ORIF GAMMA NAIL RIGH T 11/25/2022 Other injuries and conditions due to external causes (4 sources) Systemic inflammatory response syndrome; Translations: [Systemic inflammatory response syndrome (SIRS) of non-infectious origin without acute organ dysfunction] 03-09-2024 Episodic Other injuries and conditions due to external causes (2 sources) Personal history of (healed) traumatic fracture; Translations: [Personal history of (healed) traumatic fracture] Onset: 5 Episodic Other lower respiratory disease (8 sources) Dyspnea on exertion; Translations: [Shortness of breath] 06-04-2024 Episodic Comment on above: WITH [address] AIRS Other lower respiratory disease (2 sources) Shortness of breath; Translations: [Shortness of breath] Onset: 5 Episodic Other non-traumatic joint disorders (5 sources) Swelling of bilateral feet; Translations: [Effusion, right ankle] Episodic Other nutritional; endocrine; and metabolic disorders (20 sources) Hypophosphatemia; 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-2021 Chronic Other nutritional; endocrine; and metabolic disorders (4 sources) Other disorders of phosphorus metabolism; 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 Other nutritional; endocrine; and metabolic disorders (20 sources) H/O: endocrine disorder; Translations: [Personal history of other endocrine, nutritional and metabolic disease] 09-09-2021 Episodic Other nutritional; endocrine; and metabolic disorders (7 sources) Personal history of other endocrine, nutritional and metabolic disease; Translations: [Personal history of other endocrine, metabolic, and immunity disorders] Episodic Other screening for suspected conditions (not mental disorders or infectious disease) (20 sources) Thyroid function tests abnormal; Translations: [Abnormal results of thyroid function studies] Onset: 4 Episodic Other skin disorders (1 source) Disorder of nail; Translations: [Nail disorder, unspecified] Episodic Pneumonia (except that caused by tuberculosis or sexually transmitted disease) (20 sources) Pneumonia; Translations: [Pneumonia, unspecified organism] 03-08-2023 Episodic Residual codes; unclassified (5 sources) Tobacco use and exposure - finding; Translations: [Tobacco use] Episodic Residual codes; unclassified (20 sources) History of operation on musculoskeletal system; Translations: [Other specified postprocedural states] 09-09-2021 Episodic Comment on above: Right hip nailing of intertrochanteric fracture on 11/25/[address] Hitesh holguin. left hip with Cephal omeduallary nailing by Dr. Holguin on 09/05/21 Residual codes; unclassified (20 sources) Patient encounter status; Translations: [Encounter for prophylactic measures, unspecified] 09-09-2021 Episodic Comment on above: Eliquis 2.5 mg twice daily Residual codes; unclassified (6 sources) Encounter for prophylactic measures, unspecified; Translations: [Unspecified prophylactic or treatment measure] Onset: 5 Episodic Residual codes; unclassified (20 sources) Other specified postprocedural states; Translations: [Personal history of surgery to other organs] Onset: 5 Episodic Residual codes; unclassified (20 sources) Past history of procedure; Translations: [Other specified postprocedural states] 11-29-2022 Episodic Comment on above: Double J on the R. Cystoscopy with peña ge of right stent in September 2022 Residual codes; unclassified (8 sources) History of hernia repair; Translations: [Other specified postprocedural states] 06-04-2024 Episodic Comment on above: BL......this had to be done prior to radiation of the prostate Residual codes; unclassified (2 sources) Acquired absence of other genital organ(s); Translations: [Acquired absence of other genital organ(s)] Onset: 5 Episodic Residual codes; unclassified (2 sources) Acquired absence of other specified parts of digestive tract; Translations: [Acquired absence of other specified parts of digestive tract] Onset: 5 Episodic Screening and history of mental health and substance abuse codes (20 sources) Ex-smoker; Translations: [Personal history of nicotine dependence] 09-09-2021 Episodic Comment on above: 60 years. quit 2020 Spondylosis; intervertebral disc disorders; other back problems (20 sources) Chronic low back pain; Translations: [Lumbago with sciatica, right side] Onset: 6 09-10-2015 Episodic Thyroid disorders (14 sources) Hyperthyroidism; Translations: [Thyrotoxicosis, unspecified without thyrotoxic crisis or storm] Chronic Unclassified (5 sources) Right hydronephrosis Unclassified (1 source) The office will be calling to schedule an appt for you. If you haven't heard from the office by Thursday03-11-24 please call the office to schedule an appt within the next 2 weeks. Urinary tract infections (4 sources) Acute urinary tract infection; Translations: [Urinary tract infection, site not specified] 03-23-2024 Episodic Varicose veins of lower extremity (1 source) Varicose veins of lower extremity; Translations: [Varicose veins of bilateral lower extremities with other complications] Episodic Viral infection (19 sources) Disease caused by 2019-nCoV; Translations: [COVID-19] 02-23-2022 Episodic Past or Other Problems Problem Classification Problem Date Documented Da te Episodic/Chronic Abdominal hernia (2 sources) Irreducible inguinal hernia; Translations: [Unilateral inguinal hernia, with obstruction, without gangrene, not specified as recurrent] Onset: 09-20-2014 09-20-2014 Episodic Allergic reactions (1 source) Psoriasiform eczema; 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] Onset: 09-20-2014 09-20-2014 Episodic Other aftercare (1 source) Encounter for follow-up examination after completed treatment for conditions other than malignant neoplasm; Translations: [Encounter for follow-up examination after completed treatment for conditions other than malignant neoplasm] Onset: 05-06-2024 Episodic Other lower respiratory disease (1 source) Solitary pulmonary nodule; Translations: [Solitary pulmonary nodule] Onset: 01-07-2024 Episodic Other non-traumatic joint disorders (1 source) Pain in right hip joint; Translations: [Pain in right hip] Onset: 09-10-2015 09-10-2015 Episodic Other non-traumatic joint disorders (1 source) Pain in left shoulder; Translations: [Pain in left shoulder] Onset: 04-19-2024 Episodic Residual codes; unclassified (1 source) Tobacco user; Translations: [Tobacco use] Onset: 09-20-2014 09-20-2014 Episodic Results Test Name Value Interpretation Reference Range Facility MR/PATLory 09-02-2024 MR/[facility] Medical Records Department [address] [place] [address] PAT - Anesthesia 09/02/24 1341 MR#: [id number] Acct: [id number] Name: ELIESER VILLEGAS Rep #: [id number] : 1935 88 From: Nash Moreira MD PCP: Dr. Johnny Shelton, DO Status:PRE SDC Y Race: C Location: SDC Pre-Assessment Diagnosis/Proposed Procedure Planned Operative Procedure(s): RIGHT STENT CHANGE CYSTO Anesthesia History Anesthesia History - emergency man: Anesthesia History - emergency man Hx Hospitalization No 09/02/24 13:29 Any Problems With Anesthesia No 09/02/24 13:29 Cholinesterase deficiency No 09/02/24 13:29 You/Your Family Experience No 09/02/24 13:29 fever (hyperthermia) with Relationship Recent Exposure to Contagious No 02/03/24 13:06 Disease Does patient have nerve No 09/02/24 13:29 stimulator Patient instructed to have device shut off --Does patient have Pacemaker or ICD? When Was Last Pacemaker Check QUESTION #4 FULL TEXT: You/Your Family Experience fever (hyperthermia) with Anesthesia Last Oral Intake Last Oral intake: Last Oral Intake NPO since Meds taken in AM with sips of water? Meds patient instructed to take am of surgery PONV PONV - emergency man: PONV - emergency man Female No 09/02/24 13:29 HX of Motion Sickness No 09/02/24 13:29 HX of N/V After Surgery No 09/02/24 13:29 Non-Smoker Yes 09/02/24 13:29 Duration of Surgery greater No 09/02/24 13:29 than 60 minutes Number of Risk Factors 1 09/02/24 13:29 PONV Score Low Risk 09/02/24 13:29 Height Weight Height Weight: Anesthesia: Height Weight Height 5 ft 9 in 08/29/24 15:18 Respiratory Assessment Respiratory Assessment - emergency man: Respiratory Tract Infection Hx - emergency man Hx Respiratory Tract Infection No 09/02/24 13:29 STOP Sleep Apnea STOP Sleep Apnea - emergency man: STOP Sleep Apnea - emergency man Hx Hypertension No 09/02/24 13:29 Hx Sleep Apnea No 09/02/24 13:29 CPAP No 02/03/24 16:40 BIPAP No 02/02/24 10:36 Do you snore loudly (louder No 09/02/24 13:29 than talking or can be heard Do you often feel tired/ Yes 09/02/24 13:29 fatigued/ sleepy during daytime? Has anyone observed you stop No 09/02/24 13:29 breathing during sleep? STOP Results Negative 09/02/24 13:29 QUESTION #5 FULL TEXT : Do you snore loudly (louder than talking or can be heard through closed doors)? 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 Specify any problems Hx of Preganancy in last 3 N/A 09/02/24 13:29 Months Nurse Filling Out Transfusion DSCHRIBER 09/02/24 13:29 Questions: Date: 09/02/24 09/02/24 13:29 Time: 13:30 09/02/24 13:29 Patient unable to answer at this time (ie. confused, unrespo /Reproduction History /Reproductive History - emergency man: /Reproductive Hx- emergency man Hx Now No 09/02/24 13:29 Gestational Age (in weeks): EDC: Hx Hx Para Hx Section SAB No 09/02/24 13:29 PFSH Medical History (Updated 06/06/25 @ 13:37 by Cira Warner) Wears hearing aid Pressure ulcer Ambulates with cane Easy bruising History of broken collarbone Blackout Shortness of breath on exertion Hx of fracture of hip Former smoker Vitamin D insufficiency Abnormal results of thyroid function studies Loss of hearing Wears glasses Wears partial dentures Cancer Alcohol use Arthritis Back pain History of edema History of SIADH Chronic bronchitis Hydronephrosis Former smoker Closed intertrochanteric fracture of left femur Kidney failure Prostate cancer Hyponatremia Prostatic cancer Home Medications ???Medication ???Instructions ???Recorded ???Last Taken ???Type NK 03/31/24 Unknown History Allergy/AdvReac Type Severity Reaction Status Date / Time No Known Allergies Allergy Verified 06 (more content not included)... Normal [facility] Urine Cultureon 09-01-2024 URC Mixed Gram Pos Gram Neg Org Ace Count 50,000-80,000 MIXC Mixed contaminants. Submit a new specimen if indicated. Normal [facility] Comment on above: Performed By: #### L 100.0100, L501.2450, L500.4050 #### [facility] [address] [place], [place], [address] PSA,Total- Diagnosticon 06-0 PSA, DIAGNOSTIC 0.46 ng/mL Normal 0.00-4.00 [facility] Comment on above: Result Comment: This test was performed using the [employer] tPSA method. Measured values of a patient??sample can vary depending on the testing procedure used. PSA values determined on patient samples by different testing procedures cannot be used interchangeably. If there is a change in PSA assays while monitoring therapy, sequential testing should be performed to confirm baseline values. Performed By: #### L 501.9940 #### [facility] [address] [place], [place], [address] Urine cultureOrdered By: Robin guan Mes[place] on 08-30-2024 Bacteria identified Cx Nom (U) Mixed Gram Pos & Gram Neg Org Abnormal [facility] Wound Ctr History AND Physic deborah 06-04-2024 Wound Ctr History & Physical [facility] [address] [place] [address] H P Exam - Wound Care 06/04/242019 MR#: [id number] Acct: [id number] Name: ELIESER VILLEGAS Rep #: [id number] : 1935 88 From: Franki Alexander MD PCP: Dr. Johnny hSelton, DO Status:REG RCR Location: History of Present Illness Date of Service: 06/01/24 Chief Complaint: Stage 2 pressure ulcer left buttock History of Wound: This is an 88-year-old male that presented to the Wound Healing Center for evaluation and treatment of a left buttock ulcer. He has been seen in the past by another provider but had transportation issues and was not consistent with follow up. This ulcer has come and gone over the several years. He has used many topical treatments including Calmoseptine and Aquaphor to the area. He sits on a donut cushion when he is sitting on his couch which is where he spends the majority of his time during the day. He has lost approx. 40 lbs over the last several years which he attributes to some of the cause of the ulcer as he does not have as much subcutaneous tissue between his skin and his ischium. Labs from 03/14/24 showed Albumin 2.2. He does eat well but does not like protein shakes or yogurt. He is currently drinking Boost. He has a history of CKD Stage II, COPD, reduced BMI/malnutrition, on Eliquis, and frequent falls and recurrent trips to the ED. PCP is Dr. Shelton. He has home health. He tends to be non compliant in his care. [facility] Medical History Chronic bronchitis Hydronephrosis Chronic cough Hx of fracture of hip History of renal disease Former smoker Vitamin D insufficiency Abnormal results of thyroid function studies Loss of hearing Wears glasses Wears partial dentures Cancer Alcohol use Arthritis Low iron Back pain Heartburn Shortness of breath on exertion History of edema History of SIADH Former smoker Closed intertrochanteric fracture of left femur Kidney failure Prostate cancer Hyponatremia Prostatic cancer Home Medications ???Medication ???Instructions ???Recorded ???Last Taken ???Type NK 03/31/24 Unknown History Allergy/AdvReac Type Severity Reaction Status Date / Time No Known Allergies Allergy Verified 03/31/24 16:12 Family History Mother Heart disease Father Heart disease Surgical History Status post appendectomy History of cystoscopy Hx of cystoscopy History of open reduction and internal fixation (ORIF) procedure History of open reduction and internal fixation (ORIF) procedure History of transurethral resection of prostate History of renal stent H/O hernia repair Social History household members: spouse and other details: 2 st0ry house. He sleeps downstairs in a recliner. 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 He appears thin and frail. General Appearance: cooperative and comfortable Orientation / Consciousness: awake Exam Limitations: no limitations HEENT normocephalic and head/scalp atraumatic Head and Scalp: normal to inspection, normocephalic and atraumatic Face and Sinus: normal facial exam Nose: external nose normal Eyes General Eye: normal appearance of both eyes Resp normal respiratory effort, normal air movement, no retractions and no use of accessory muscles Effort and Inspection: able to speak in complete sentences Cardio regular rate and regular rhythm Back/Spine normal ROM Skin Wound Narrative: A stage II pressure ulceration is noted on the left buttock. Dimensions are documented elsewhere. The base of the ulcer is generally pink and healthy in appearance, with a moderate amount of bioburden. There is no sign of infection or cellulitis. Neuro oriented x3 and moves all extremities Sensorium / Orientation: awake, alert, oriented to person, oriented to place and oriented to time Psych mental status grossly normal Appearance: appropriate Debridement Note Debridement Note Wound debrided: Left buttock ulceration Laterality: Left Wound Grade/Stage: Stage II Type of Debridement: Excisional debridement Anesthesia Used: 5% Lidoca (more content not included)... 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 Johnny Shelton, DO Status:REG RCR Location: History of Present Illness Date of Service: 05/09/24 Chief Complaint: Stage 2 pressure ulcer left buttock History of Wound: Eileser is a very pleasant 87 yo gentleman that presents to the wound healing center for evaluation and treatment of a left buttock ulcer. He has been seen in the past by another pr ovider but had transportation issues and was not consistent with follow up. This ulcer has come and gone over the several years. He has used many topical treatments including Calmoseptine and Aquaphor to the area. He sits on a donut cushion when he is sitting on his couch which is where he spends the majority of his time during the day. He has lost approx. 40 lbs over the last several years which he attributes to some of the cause of the ulcer as he does not have as much subcutaneous tissue between his skin and his ischium. Labs from 03/14/24 showed Albumin 2.2. He does eat well but does not like protein shakes or yogurt. He is currently drinking boost. He history of CKD Stage II, COPD, reduced BMI/malnutrition, on Eliquis, and frequent falls and recurrent trips to the ED. PCP is Dr. Shelton. He has home health. He tends to be non compliant in his care. Today he denies fever, chills, nausea and vomiting. Progress of Wound: Ulcer on his left buttock is a stage 2, superficial. The ulcer is painful. He admits to sitting on a donut pillow to off load. Expressed concern that a donut pillow may actually cause more pressure and make his ulcer worse. [facility] Medical History Chronic cough Hx of fracture of hip History of renal disease Former smoker Vitamin D insufficiency Abnormal results of thyroid function studies Loss of hearing Wears glasses Wears partial dentures Cancer Alcohol use Arthritis Low iron Back pain Heartburn Shortness of breath on exertion History of edema History of SIADH Chronic bronchitis Hydronephrosis Former smoker Closed intertrochanteric fracture of left femur Kidney failure Prostate cancer Hyponatremia Prostatic cancer Home Medications ???Medication ???Instructions ???Recorded ???Last Taken ???Type NK 03/31/24 Unknown History Allergy/AdvReac Type Severity Reaction Status Date / Time No Known Allergies Allergy Verified 03/31/24 16:12 Family History Mother Heart disease Father Heart disease Surgical History History of cystoscopy Hx of cystoscopy History of open reduction and internal fixation (ORIF) procedure History of open reduction and internal fixation (ORIF) procedure History of transurethral resection of prostate Status post appendectomy History of renal stent H/O hernia repair Social History household members: spouse and other details: 2 stry house. He sleeps downstairs in a recliner. 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 Tobacco: How many years used: 67 how long ago did patient quit smoking: He quit in 2019 alcohol intake: current alcohol intake frequency: holidays/special occasions only substance use type: does not use ROS Constitutional Constitutional: Reports frequent falls; Denies chills or fever(s) Eyes Eyes: Reports none ENT HEENT: Reports none Cardiovascular Cardiovascular: Denies chest pain or dyspnea Respiratory/Chest Respiratory/Chest: Denies cough or dyspnea Gastrointestinal Gastrointestinal: Denies nausea or vomiting Genitourinary Genitourinary: Reports none Musculoskeletal Musculoskeletal: Reports difficulty walking and joint pain Integumentary Integumentary: Reports skin ulcer Neurologic Neurologic: Denies confusion or dizziness Psychiatric Psychiatric: Reports systems reviewed and no addt'l complaints, except as documented Endocrine Endocrinology: Reports systems reviewed and no addt'l complaints, except as documented Hematologic/Lymphatic Hematologic/Lymphatic: Reports none Allergic/Immunologic Allergic/Immunologic: Reports none Vital Signs Vital Signs Vital Signs: 05/09/24 09:40 Temperature 97.9 F Temperature Source Temporal Pulse Rate 87 Respiratory Rate 18 Blood Pressure 110/50 L Blood Pressure Mean 70 Blood Pressure Source Monitor Blood Pressure Position Sitting Blood Pressure Locati (more content not included)... Normal [facility] Clavicleon 03-31-2024 Clavicle [facility] Imaging Services [address] [place] [address] Clavicle MR#: [id number] Acct: [id number] Name: ELIESER VILLEGAS Rep #: [id number] : 1935 M 88 From: Shira Chatterjee MD PCP: Dr. Johnny Shelton DO Status: PRE ER Study: Clavicle Date of Exam: 03/31/24 Exam# [id number] Ordering Dr: Provider,Ed P. [id number] EXAM: XR LEFT CLAVICLE COMPLETE, 2 VIEWS CLINICAL INDICATION: TRAUMA TECHNIQUE: Frontal and lordotic views of the left clavicle. COMPARISON: No relevant prior studies available. FINDINGS: BONES/JOINTS: There is short oblique fracture of the distal third of the left clavicle, minimally visible, not significantly distracted or displaced. Maximal displacement of roughly 2.6 mm. Intact acromioclavicular and glenohumeral joints. Heterogeneous bone density. SOFT TISSUES: Mild left supraclavicular soft tissue swelling. No radiopaque foreign body. RAD/Clavicle IMPRESSION: Minimally displaced and fairly simple-appearing fracture of the distal third of the left clavicle. Electronically Signed: Shira Chatterjee MD at 18:29 EST , CC: Dr. Johnny Shelton DO; ED PHYSICIAN PROVIDER Case Management Associate: Signed [facility] Emergency Department Summary on 03-31-2024 Emergency Department Summary [facility] Medical Records Department [address] [place] [address] Emergency Department Summary 03/31/24 MR#: [id number] Acct: [id number] Name: ELIESER VILLEGAS Rep #: [id number] : 1935 88 From: Raphael Dee DO PCP: Dr. Johnny Shelton DO Status:REG ER Location: ED HPI HPI - Fall History of Present Illness Chief Complaint: Fall PFSH PFSH Medical History Chronic cough Hx of fracture of hip History of renal disease Former smoker Vitamin D insufficiency Abnormal results of thyroid function studies Loss of hearing Wears glasses Wears partial dentures Cancer Alcohol use Arthritis Low iron Back pain Heartburn Shortness of breath on exertion History of edema History of SIADH Chronic bronchitis Hydronephrosis Former smoker Closed intertrochanteric fracture of left femur Kidney failure Prostate cancer Hyponatremia Prostatic cancer Home Medications ???Medication ???Instructions ???Recorded ???Last Taken ???Type NK 03/31/24 Unknown History Allergy/AdvReac Type Severity Reaction Status Date / Time No Known Allergies Allergy Verified 03/31/24 16:12 Family History Mother Heart disease Father Heart disease Surgical History History of cystoscopy Hx of cystoscopy History of open reduction and internal fixation (ORIF) procedure History of open reduction and internal fixation (ORIF) procedure History of transurethral resection of prostate Status post appendectomy History of renal stent H/O hernia repair Social History household members: spouse and other details: 2 st0ry house. He sleeps downstairs in a recliner. 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 Tobacco: How many years used: 67 how long ago did patient quit smoking: He quit in 2019 alcohol intake: current alcohol intake frequency: holidays/special occasions only substance use type: does not use EXAM Physical Exam Const Vital Signs: 03/31/24 16:12 Temperature 97.9 F Temperature Source Oral Pulse Rate 73 Respiratory Rate 16 Blood Pressure 110/72 Blood Pressure Mean 84 Pulse Ox 97 Oxygen Delivery Method Room Air [facility] Narrative Medical decision making narrative: HISTORY OF PRESENT ILLNESS: 88-year-old male notes left shoulder pain. Notes he fell in the garage and laid on his left shoulder for approximate 20 minutes. Denies head trauma, loss of consciousness. Denies taking blood thinners REVIEW OF SYSTEMS: Pertinent positives: Left shoulder pain Pertinent negatives: Headache, neck pain, pelvis pain PHYSICAL EXAM: Nursing triage notes reviewed, Vital signs reviewed Primary Survey Airway: Intact Breathing: Bilateral breath sounds Circulation: Palpable bilateral femorals, Palpable bilateral radial, Palpable bilateral DP and Palpable bilateral PT Disability / Spine precautions GCS Score: Eye Openin Verbal Response: 5 Motor Response: 6 Secondary Survey Constitutional: Please see MDM Head: Atraumatic, Midface stable, NO jaw malocclusion, No Cephalohematoma, and No Lacerations noted Eye: Pupils equal round and reactive to light, Extraocular muscles intact and No periorbital ecchymosis or stepoff, no evidence of entrapment ENT: Oropharynx clear, no lacerations, no hemotympanum, no raccoon eyes or hurt sign Cervical spine / Neck: No cervical spine bony tenderness, crepitance, or stepoff deformity Trachea midline Lungs: Clear to auscultation, No asymmetric rise and No crepitus, no flail chest Cardiac: Regular rate and rhythm and No murmurs Abdomen: Soft, Nontender and No rebound Pelvis: Pelvis stable to compression : No evidence of genital injury Back: No midline bony tenderness to thoracic/lumbar/sacral spines Neuro: At baseline, intact strength and sensation in bilateral upper and lower extremities. 2+ patellar reflexes bilaterally. Extremities: NO gross Deformities Psych: Normal affect Nursing triage notes reviewed, Vital signs reviewed MEDICAL DECISION MAKING: Chief Complaint: Shoulder pain External records reviewed: Reviewed prior imaging studies Factors affecting care: none Social determinants of health: none History obtained from others: none Consults: none [facility] Narrative: The patient was initially hemodynamically stable, afebrile and nontoxic-appearing. Exam with TTP over distal clavicle. But intact range of motion left upper extremity. Left lower extremity neurovascular intact. No other evidence of trauma including (more content not included)... Normal [facility] Urine Cultureon 03-24-2024 URC Identification and sensitivity performed at [facility]. Corynebacterium amycolatum Ace Count 11,000-25,000 Corynebacterium amycolatum: REACTION Erythromycin Islt VIVIAN Gentamicin Islt VIVIAN S rifAMPin Islt VIVIAN S Tetracycline Islt VIVIAN R Vancomycin Islt VIVIAN S Penicillin Islt VIVIAN R Normal [facility] Comment on above: Performed By: #### L 400.0001 #### [facility] Laboratory [address] [place], [address] Culture, Blood (WB)on 2023 CUB Blood cultures x2, f rom two different sites No growth in 5 days. Normal [facility] Comment on above: Performed By: #### L 509.7000, L503.6005, M200.1000 ####[facility] [address] [place], [address] CUB Blood cultures x2, f rom two different sites No growth in 5 days. Normal [facility] Comment on above: Performed By: #### L 100.0100, L501.2450, L500.4050 #### [facility] [address] [place], [address] Urine Cultureon 03-16-2024 URC Culture exhibits no growth. Normal [facility] Comment on above: Performed By: #### L 100.0100, L501.2450, L500.4050 #### [facility] [address] [place], [address] Bacteria LM.HPF (Urine sed) [#/Area]Ordered By: Vitaliy Malloy on 03-15-2024 Urine Bacteria RARE /hpf None Seen [facility] Bilirubin Test strip Ql (U)O rdered By: Vitaliy Malloy on 03-15-2024 Bilirubin Ql (U) Negative Negative [facility] Blood cultureOrdered By: Endy Malloy on 03-15-2024 Bacteria identified Cx Nom (Bld) No growth in 5 days. [facility] Epithelial cells.squamous LM Ql (Urine sed)Ordered By: Vitaliy Le on 03-15-2024 Epithelial cells.squamous LM.HPF (Urine sed) [#/Area] 0 /[HPF] 0-5 [facility] Glucose Ql (U)Ordered By: Antonio Malloy on 03-15-2024 Urine Glucose (UA) Normal mg/dl Normal [facility] Hyaline casts LM.LPF (Urine sed) [#/Area]Ordered By: Vitaliy Le on 03-15-2024 Hyaline casts LM Ql (Urine sed) 0-5 SEEN /lpf 0-5 [facility] Ketones Test strip Ql (U)Ord ered By: Vitaliy Le on 03-15-2024 Ketones Ql (U) Negative Negative [facility] Lactic Acidon 03-15-2024 Lactate [Moles/Vol] 1.1 mmol/L Normal 0.4-1.9 [facility] Comment on above: Order Comment: Y Performed By: #### L 509.7000, L503.6005, M200.1000 #### [facility] [address] [place], [address] Lactic acid measurementOrder ed By: Vitaliy Le on 03-15-2024 Lactate [Moles/Vol] 1.1 mmol/L 0.4-2.0 [facility] Liver Profileon 03-15-2024 Albumin [Mass/Vol] 2.2 g/dL Low 3.2-5.0 [facility] Comment on above: Performed By: #### L 500.3400 ####[facility] [address] [place], [address] ALK P 133 U/L High 45-117 [facility] Comment on above: Performed By: #### L 500.3400 ####[facility] [address] [place], [address] ALT [Catalytic activity/Vol] 26 U/L Normal 16-61 [facility] Comment on above: Performed By: #### L 500.3400 ####[facility] [address] [place], [address] AST [Catalytic activity/Vol] 22 U/L Normal 15-37 [facility] Comment on above: Performed By: #### L 500.3400 ####[facility] [address] [place], [address] Bilirubin [Mass/Vol] 0.30 mg/dL Normal 0.20-1.00 [facility] Comment on above: Result Comment: For patients on eltrombopag therapy, use of Dimension [place] TBIL is not recommended. Performed By: #### L 500.3400 ####[facility] [address] [place], [address] Bilirubin.direct [Mass/Vol] 0.13 mg/dL Normal 0.00-0.30 [facility] Comment on above: Performed By: #### L 500.3400 ####[facility] [address] [place], [address] Globulin (S) [Mass/Vol] 4.6 g/dL High 2.2-4.2 [facility] Comment on above: Performed By: #### L 500.3400 ####[facility] [address] [place], [address] T PROT 6.8 g/dL Normal 6.4-8.2 [facility] Comment on above: Performed By: #### L 500.3400 ####[facility] [address] [place], [address] M100.678on 03-15-2024 M100.678 Pending SARS-CoV-2 (COVID 19) Negative INFLUENZA A Negative INFLUENZA B Negative RSV PCR Negative Normal [facility] Comment on above: Performed By: #### L 100.0100, L501.2450, L500.4050 #### [facility] [address] [place], [place], [address] Microscopic analysis of urin e for red blood cells (RBC)Ordered By: Vitaliy Malloy on 03-15-2024 Urine RBC 50-100 SEEN /hpf 0-5 [facility] Mucus LM Ql (Urine sed)Order ed By: Vitaliy Malloy on 03-15-2024 Mucus Ql (Urine sed) 1+ /hpf [facility] Nitrite Test strip Ql (U)Ord ered By: Vitaliy Malloy on 03-15-2024 Nitrite Ql (U) Negative Negative [facility] Procalcitoninon 03-15-2024 Procalcitonin 0.20 ng/mL High 0.00-0.09 [facility] Comment on above: Result Comment: A procalcitonin (PCT) level above 2.0 ng/mL on the first day of ICU admission is associated with a high risk for progression to severe sepsis and/or septic shock. A PCT level below 0.5 ng/mL on the first day of ICU admission is associated with a low risk for progression to severe and/or septic shock. Note: Concentrations <0.5 ng/mL do not exclude an infection on account of localized infections (without systemic signs) which can be associated with such low concentrations, or a systemic infection in its initial stages (<6 hours). Furthermore, increased procalcitonin can occur without infection. PCT concentrations between 0.5 and 2.0 ng/mL should be interpreted taking into account the patient's history. It is recommended to retest PCT within 6-24 hours if any concentrations <2 ng/mL are obtained. Performed By: #### L 509.7000, L503.6005, M200.1000 #### [facility] [address] [place], [place], [address] Procalcitonin [Mass/Vol]Orde red By: Vitaliy Malloy on 03-15-2024 Procalcitonin 0.20 ng/mL High 0.00-0.09 [facility] Comment on above: A procalcitonin (PCT ) level above 2.0 ng/mL on the first day of ICU admission is associated with a high risk for progression to severe sepsis and/or septic shock. A PCT level below 0.5 ng/mL on the first day of ICU admission is associated with a low risk for progression to severe and/or septic shock. Note: Concentrations <0.5 ng/mL do not exclude an infection on account of localized infections (without systemic signs) which can be associated with such low concentrations, or a systemic infection in its initial stages (<6 hours). Furthermore, increased procalcitonin can occur without infection. PCT concentrations between 0.5 and 2.0 ng/mL should be interpreted taking into account the patient's history. It is recommended to retest PCT within 6-24 hours if any concentrations <2 ng/mL are obtained. Protein Test strip Ql (U)Ord ered By: Vitaliy Malloy on 03-15-2024 Protein Ql (U) 30 mg/dl High Negative [facility] Urinalysis, Completeon 03-15 BACTERIA RARE Normal None Seen [facility] Comment on above: Order Comment: CLEAN CATCH Performed By: #### L 100.0100, L501.2450, L500.4050 #### [facility] [address] [place], [address] CAST,HYALINE 0-5 SEEN Normal 0-5 [facility] Comment on above: Order Comment: CLEAN CATCH Performed By: #### L 100.0100, L501.2450, L500.4050 #### [facility] [address] [place], [address] EPI,SQUAMOUS 0-5 SEEN Normal 0-5 [facility] Comment on above: Order Comment: CLEAN CATCH Performed By: #### L 100.0100, L501.2450, L500.4050 #### [facility] [address] [place], [address] Mucus Ql (Urine sed) 1+ /hpf Normal [facility] Comment on above: Order Comment: CLEAN CATCH Performed By: #### L 100.0100, L501.2450, L500.4050 #### [facility] [address] [place], [address] RBC 50-100 SEEN Normal 0-5 [facility] Comment on above: Order Comment: CLEAN CATCH Performed By: #### L 100.0100, L501.2450, L500.4050 #### [facility] [address] [place], [address] WBC 25-50 SEEN Normal 0-5 [facility] Comment on above: Order Comment: CLEAN CATCH Performed By: #### L 100.0100, L501.2450, L500.4050 #### [facility] [address] [place], [address] BILIRUBIN URINE Negative Normal Negative [facility] Comment on above: Order Comment: CLEAN CATCH Performed By: #### L 100.0100, L501.2450, L500.4050 #### [facility] [address] [place], [address] Clarity (U) Clear Normal Clear [facility] Comment on above: Order Comment: CLEAN CATCH Performed By: #### L 100.0100, L501.2450, L500.4050 #### [facility] [address] [place], [address] Color (U) Yellow Normal Yellow [facility] Comment on above: Order Comment: CLEAN CATCH Performed By: #### L 100.0100, L501.2450, L500.4050 #### [facility] [address] [place], [address] GLUCOSE, UR Normal Normal Normal [facility] Comment on above: Order Comment: CLEAN CATCH Performed By: #### L 100.0100, L501.2450, L500.4050 #### [facility] [address] [place], [address] KETONE UR Negative Normal Negative [facility] Comment on above: Order Comment: CLEAN CATCH Performed By: #### L 100.0100, L501.2450, L500.4050 #### [facility] [address] [place], [address] LEUK ESTERASE 100 /ul Abnormal Negative [facility] Comment on above: Order Comment: CLEAN CATCH Performed By: #### L 100.0100, L501.2450, L500.4050 #### [facility] [address] [place], [address] Nitrite Ql (U) Negative Normal Negative [facility] Comment on above: Order Comment: CLEAN CATCH Performed By: #### L 100.0100, L501.2450, L500.4050 #### [facility] [address] [place], [address] OCCULT BLOOD-UR 150 /ul Abnormal Negative [facility] Comment on above: Order Comment: CLEAN CATCH Performed By: #### L 100.0100, L501.2450, L500.4050 #### [facility] [address] [place], [address] pH UR 7.0 Normal 5.0 - 8.0 [facility] Comment on above: Order Comment: CLEAN CATCH Performed By: #### L 100.0100, L501.2450, L500.4050 #### [facility] [address] [place], [address] PROT DIPSTX 30 mg/dl Abnormal Negative [facility] Comment on above: Order Comment: CLEAN CATCH Performed By: #### L 100.0100, L501.2450, L500.4050 #### [facility] [address] [place], [address] SP.GR. DIPSTX 1.010 Normal 1.002-1.030 [facility] Comment on above: Order Comment: CLEAN CATCH Performed By: #### L 100.0100, L501.2450, L500.4050 #### [facility] [address] [place], [address] UROBILI Normal Normal Normal [facility] Comment on above: Order Comment: CLEAN CATCH Performed By: #### L 100.0100, L501.2450, L500.4050 #### [facility] [address] [place], [address] Urine blood detectionOrdered By: Vitaliy Malloy on 03-15-2024 Urine Occult Blood 150 /ul High Negative [facility] Urine clarityOrdered By: Endy Malloy on 03-15-2024 Clarity (U) Clear Clear [facility] Urine color determinationOrd ered By: Vitaliy Malloy on 03-15-2024 Color (U) Yellow Yellow [facility] Urine cultureOrdered By: Endy Malloy on 03-15-2024 Bacteria identified Cx Nom (U) Culture exhibits no growth. [facility] Urine leukocyte esterase det ection by dipstickOrdered By: Vitaliy Malloy on 03-15-2024 Leukocyte esterase Test strip Ql (U) 100 /ul High Negative [facility] Urine pHOrdered By: Vitaliy Malloy on 03-15-2024 pH (U) 7.0 [pH] 5.0 - 8.0 [facility] Urine specific gravity measu rementOrdered By: Vitaliy Malloy on 03-15-2024 Specific gravity (U) [Rel density] 1.010 1.002-1.030 [facility] Urobilinogen Ql (U)Ordered B y: Vitaliy Malloy on 03-15-2024 Urine Urobilinogen Normal mg/dl Normal [facility] White blood cell countOrdere d By: Vitaliy Malloy on 03-15-2024 Urine WBC 25-50 SEEN /hpf 0-5 [facility] 12 Lead EKGon 03-14-2024 12 Lead EKG [facility] Cardiovascular Services [address] [place] [address] 12 Lead EKG 03/14/24 2303 MR#: [id number] Acct: [id number] Name: ELIESER VILLEGAS Rep #: [id number] : 1935 88 From: Pacheco Majano MD Attending Dr: Status: DEP ER Ordering Dr: Vitaliy Malloy DO Date: 03/14/24 Location: ED Sex: M C Admitted: Test Reason : DYSRHYTHMIA Blood Pressure : */* mmHG Vent. Rate : 123 BPM Atrial Rate : 123 BPM P-R Int : 160 ms QRS Dur : 70 ms QT Int : 288 ms P-R-T Axes : 84 77 76 degrees QTcB Int : 412 ms Sinus tachycardia with Premature atrial complexes Otherwise normal ECG Confirmed by SHA CRABTREE, PACHECO ([id number]), supervising editor news reel ALLISON ROSADO ([id number]) on 03/17/2024 10:31:03 AM Referred By: TL Confirmed By: PACHECO MAJANO MD 03/17/24 1031 Date Pacheco Majano MD CC: Dr. Johnny Shelton, DO; Dr. Vitaliy Malloy DO Signed Normal [facility] Absolute neutrophil countOrd ered By: ED PROVIDER on 03-14-2024 Neutrophils (Bld) [#/Vol] 10.3 10*3/uL High 2.0-7.7 [facility] Basic Metabolic Profile (BMP )on 03-14-2024 BUN/CRE 22.2 RATIO High 10-20 [facility] Comment on above: Order Comment: 'TROP ' Serial specimen #1, #2 or #3: 1 Performed By: #### L 100.0100, L501.2450, L500.4050 #### [facility] [address] [place], [address] CA,Total 8.7 mg/dL Normal 8.5-10.1 [facility] Comment on above: Order Comment: 'TROP ' Serial specimen #1, #2 or #3: 1 Performed By: #### L 100.0100, L501.2450, L500.4050 #### [facility] [address] [place], [address] Chloride [Moles/Vol] 96 mmol/L Low 98-107 [facility] Comment on above: Order Comment: 'TROP ' Serial specimen #1, #2 or #3: 1 Performed By: #### L 100.0100, L501.2450, L500.4050 #### [facility] [address] [place], [address] CO2 [Moles/Vol] 28.0 mmol/L Normal 21.0-32.0 [facility] Comment on above: Order Comment: 'TROP ' Serial specimen #1, #2 or #3: 1 Performed By: #### L 100.0100, L501.2450, L500.4050 #### [facility] [address] [place], [address] Creatinine [Mass/Vol] 0.94 mg/dL Normal 0.70-1.30 [facility] Comment on above: Order Comment: 'TROP ' Serial specimen #1, #2 or #3: 1 Result Comment: The validity of the calculated GFR GFRAA in patients over 70 years has not been determined. Clinical correlation is essential. Performed By: #### L 100.0100, L501.2450, L500.4050 #### [facility] [address] [place], [address] EST GFR - AA 97 mL/min Normal >60 [facility] Comment on above: Order Comment: 'TROP ' Serial specimen #1, #2 or #3: 1 Result Comment: Afri can Gibraltarian GFR Calc Performed By: #### L 100.0100, L501.2450, L500.4050 #### [facility] [address] [place], [address] GAP 6 Normal 5-15 [facility] Comment on above: Order Comment: 'TROP ' Serial specimen #1, #2 or #3: 1 Performed By: #### L 100.0100, L501.2450, L500.4050 #### [facility] [address] [place], [address] GFR/1.73 sq M.predicted among non-blacks MDRD (S/P/Bld) [Vol rate/Area] 80 mL/min/{1.73_m2} Normal >60 [facility] Comment on above: Order Comment: 'TROP ' Serial specimen #1, #2 or #3: 1 Result Comment: Non- GFR Calc Performed By: #### L 100.0100, L501.2450, L500.4050 #### [facility] [address] [place], [address] Glucose [Mass/Vol] 123 mg/dL High 74-106 [facility] Comment on above: Order Comment: 'TROP ' Serial specimen #1, #2 or #3: 1 Result Comment: Fast ing Glucose result from 100 to 125 mg/dL suggests IMPAIRED HOMEOSTASIS per A.D.A. criteria. Performed By: #### L 100.0100, L501.2450, L500.4050 #### [facility] [address] [place], [address] Potassium [Moles/Vol] 4.7 mmol/L Normal 3.5-5.1 [facility] Comment on above: Order Comment: 'TROP ' Serial specimen #1, #2 or #3: 1 Performed By: #### L 100.0100, L501.2450, L500.4050 #### [facility] [address] [place], [address] Sodium [Moles/Vol] 130 mmol/L Low 136-145 [facility] Comment on above: Order Comment: 'TROP ' Serial specimen #1, #2 or #3: 1 Performed By: #### L 100.0100, L501.2450, L500.4050 #### [facility] [address] [place], [address] Urea nitrogen [Mass/Vol] 21 mg/dL High 7-18 [facility] Comment on above: Order Comment: 'TROP ' Serial specimen #1, #2 or #3: 1 Performed By: #### L 100.0100, L501.2450, L500.4050 #### [facility] [address] [place], [address] Basophil percentageOrdered B y: ED PROVIDER on 03-14-2024 Basophils/100 WBC (Bld) 0.3 % 0-1 [facility] Bilirubin directOrdered By: Vitaliy Malloy on 03-14-2024 Bilirubin.direct [Mass/Vol] 0.13 mg/dL 0.00-0.30 [facility] Bilirubin, totalOrdered By: Vitaliy Malloy on 03-14-2024 Bilirubin [Mass/Vol] 0.30 mg/dL 0.20-1.00 [facility] Comment on above: For patients on eltr ombopag therapy, use of Dimension [place] TBIL is not recommended. Blood cultureOrdered By: Endy Malloy on 03-14-2024 Bacteria identified Cx Nom (Bld) No growth in 5 days. [facility] Blood urea nitrogen (BUN)/cr eatinine ratioOrdered By: ED PROVIDER on 03-14-2024 Urea nitrogen/Creatinine [Mass ratio] 22.2 mg/mg High 10-20 [facility] CBC W/Diff, Automatedon 02-27 Absolute Lymph 0.56 X10 3/uL Low 0.83-4.51 [facility] Comment on above: Performed By: #### L 100.0100, L501.2450, L500.4050 #### [facility] [address] [place], [address] Absolute Neut 10.3 X10 3/uL High 2.0-7.7 [facility] Comment on above: Performed By: #### L 100.0100, L501.2450, L500.4050 #### [facility] [address] [place], [address] Basophils/100 WBC (Bld) 0.3 % Normal 0-1 [facility] Comment on above: Performed By: #### L 100.0100, L501.2450, L500.4050 #### [facility] [address] [place], [address] Eosinophils/100 WBC (Bld) 0.0 % Normal 0-5 [facility] Comment on above: Performed By: #### L 100.0100, L501.2450, L500.4050 #### [facility] [address] [place], [address] Erythrocyte distribution width (RBC) [Ratio] 12.3 % Normal 11.6-14.6 [facility] Comment on above: Performed By: #### L 100.0100, L501.2450, L500.4050 #### [facility] [address] [place], [address] Hematocrit (Bld) [Volume fraction] 35.9 % Low 40-54 [facility] Comment on above: Performed By: #### L 100.0100, L501.2450, L500.4050 #### [facility] [address] [place], [address] Hemoglobin (Bld) [Mass/Vol] 11.9 g/dL Low 13.0-16.5 [facility] Comment on above: Performed By: #### L 100.0100, L501.2450, L500.4050 #### [facility] [address] [place], [address] IG% 1.600 High 0.0-0.9 [facility] Comment on above: Result Comment: IG% - Immature Granulocytes (promyelocytes, myelocytes and metamyelocytes) > 1% indicates that a LEFT SHIFT is Present. Performed By: #### L 100.0100, L501.2450, L500.4050 #### [facility] [address] [place], [address] Lymphocytes/100 WBC (Bld) 4.6 % Low 19-41 [facility] Comment on above: Performed By: #### L 100.0100, L501.2450, L500.4050 #### [facility] [address] [place], [address] MCH (RBC) [Entitic mass] 30.3 pg Normal 27.0-32.0 [facility] Comment on above: Performed By: #### L 100.0100, L501.2450, L500.4050 #### [facility] [address] [place], [address] MCHC (RBC) [Mass/Vol] 33.1 g/dL Normal 32-36 [facility] Comment on above: Performed By: #### L 100.0100, L501.2450, L500.4050 #### [facility] [address] [place], [address] MCV (RBC) [Entitic vol] 91.3 fL Normal 80-94 [facility] Comment on above: Performed By: #### L 100.0100, L501.2450, L500.4050 #### [facility] [address] [place], [address] Monocytes/100 WBC (Bld) 8.4 % Normal 0-10 [facility] Comment on above: Performed By: #### L 100.0100, L501.2450, L500.4050 #### [facility] [address] [place], [address] Neutrophils/100 WBC (Bld) 85.1 % High 47-70 [facility] Comment on above: Performed By: #### L 100.0100, L501.2450, L500.4050 #### [facility] [address] [place], [address] Nucleated RBC (Bld) [#/Vol] 0 10*3/uL Normal 0-5 [facility] Comment on above: Performed By: #### L 100.0100, L501.2450, L500.4050 #### [facility] [address] [place], [address] Platelet mean volume (Bld) [Entitic vol] 8.4 fL Normal 6.2-12.0 [facility] Comment on above: Performed By: #### L 100.0100, L501.2450, L500.4050 #### [facility] [address] [place], [address] Platelets (Bld) [#/Vol] 376 10*3/uL Normal 150-450 [facility] Comment on above: Performed By: #### L 100.0100, L501.2450, L500.4050 #### [facility] [address] [place], [address] RBC (Bld) [#/Vol] 3.93 10*6/uL Low 4.6-6.2 [facility] Comment on above: Performed By: #### L 100.0100, L501.2450, L500.4050 #### [facility] [address] [place], [address] RDW SD 41.4 fl Normal 35.1-43.9 [facility] Comment on above: Performed By: #### L 100.0100, L501.2450, L500.4050 #### [facility] [address] [place], [address] WBC (Bld) [#/Vol] 12.1 10*3/uL High 4.4-11.0 [facility] Comment on above: Performed By: #### L 100.0100, L501.2450, L500.4050 #### [facility] [address] [place], [address] Carbon dioxide measurementOr dered By: ED PROVIDER on 03-14-2024 CO2 [Moles/Vol] 28.0 mmol/L 21.0-32.0 [facility] Chloride measurementOrdered By: ED PROVIDER on 03-14-2024 Chloride [Moles/Vol] 96 mmol/L Low 98-107 [facility] Culture, Blood (WB)on 2023 CUB Blood cultures x2 fr om two different sites No growth in 5 days. Normal [facility] Comment on above: Performed By: #### L 100.0100, L500.3400, L500.2500, L503.6005, L509.7000, M200.1000 ####[facility] [address] [place], [address] Emergency Department Summary on 03-14-2024 Emergency Department Summary [facility] Medical Records Department [address] [place] [address] Emergency Department Summary 03/14/24 MR#: [id number] Acct: [id number] Name: ELIESER VILLEGAS Rep #: [id number] : 1935 88 From: Vitaliy Yañez PCP: Dr. Johnny Shelton DO Status:DEP ER Location: ED HPI History of Present Illness Chief Complaint: Weakness Informant: patient, spouse/S.O. and family Narrative Narrative: Presents by EMS from home increasing weakness. States he has filled drained. He does not take any daily medication. Chronic cough with production. Daughter reports went up to the restroom 4 times yesterday. Denies dysuria. Ambulating at home up till this evening. No recent vomiting or diarrhea. Reported admitted a week ago for similar however sent home the following day on antibiotics. Unclear what he is being treated for. Denies chest or abdominal pain. Brought in on 3 L nasal cannula he does not wear home oxygen. Denies fevers, chills, sweats. Prior similar symptoms: Yes PFSH PFSH Medical History Chronic cough Hx of fracture of hip History of renal disease Former smoker Vitamin D insufficiency Abnormal results of thyroid function studies Loss of hearing Wears glasses Wears partial dentures Cancer Alcohol use Arthritis Low iron Back pain Heartburn Shortness of breath on exertion History of edema History of SIADH Chronic bronchitis Hydronephrosis Former smoker Closed intertrochanteric fracture of left femur Kidney failure Prostate cancer Hyponatremia Prostatic cancer Home Medications ???Medication ???Instructions ???Recorded ???Last Taken ???Type cefdinir 300 mg capsule 300 mg PO Q12H #14 caps 03/15/24 Unknown Rx Allergy/AdvReac Type Severity Reaction Status Date / Time No Known Allergies Allergy Verified 03/09/24 05:16 Family History Mother Heart disease Father Heart disease Surgical History History of cystoscopy Hx of cystoscopy History of open reduction and internal fixation (ORIF) procedure History of open reduction and internal fixation (ORIF) procedure History of transurethral resection of prostate Status post appendectomy History of renal stent H/O hernia repair Social History household members: spouse and other details: 2 stry house. He sleeps downstairs in a recliner. 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 Tobacco: How many years used: 67 how long ago did patient quit smoking: He quit in 2019 alcohol intake: current alcohol intake frequency: holidays/special occasions only substance use type: does not use ROS ROS ED Constitutional Constitutional ED: Denies chills, fever(s) or sweats Eyes Eyes: Denies change in vision ENT ENT ED: Denies dysphagia or sore throat Cardiovascular Cardiovascular: Denies chest pain, leg edema, palpitations or racing heartbeat Respiratory/Chest Respiratory/Chest: Reports cough; Denies dyspnea or dyspnea on exertion Gastrointestinal Gastrointestinal: Denies abdominal pain, diarrhea, nausea or vomiting Genitourinary Genitourinary ED: Denies dysuria, hematuria or urinary frequency Musculoskeletal Musculoskeletal: Denies back pain, extremity pain or neck pain Integumentary Denies rash or wounds Neurologic Neurologic: Reports weakness; Denies headache(s) or paresthesias EXAM Physical Exam Const Vital Signs: 03/14/24 22:30 03/14/24 23:46 03/14/24 23:46 Temperature 98.1 F 101.4 F H Temperature Source Temporal Oral Pulse Rate 80 72 Respiratory Rate 24 H 19 H Respiratory Effort Respiratory Pattern Blood Pressure 149/105 H 141/76 H Blood Pressure Mean 119 97 Pulse Ox 92 94 94 Oxygen Delivery Method Nasal Cannula Room Air Room Air Oxygen Flow Rate (L/min) 3 03/14/24 23:46 03/15/24 00:00 03/15/24 01:00 Temperature 101.6 F H 101 F H Temperature Source Oral Oral Pulse Rate 119 H 121 H Respiratory Rate 19 H 31 H Respiratory Effort Short of Breath Respiratory Pattern Tachypnea Blood Pressure 145/92 H 128/92 H Blood Pressure Mean 109 104 Pulse Ox 92 96 Oxygen Delivery Method Room Air Oxygen Flow Rate (L/min) 03/15/24 02:00 03/15/24 03:00 03/15/24 04:00 Temperature 97.8 F Temperature Source Temporal Pulse Rate 97 96 106 H Respiratory Rate 20 H 20 H 19 H Respiratory Effort Respiratory Pattern Blood Pressure 90/50 L 105/49 L 108/61 Blood Pressure Mean 63 67 76 Pulse Ox 94 96 96 Oxygen Delivery Method Room Air Room Air Oxygen Flow (more content not included)... Normal [facility] Eosinophil percentageOrdered By: ED PROVIDER on 03-14-2024 Eosinophils/100 WBC (Bld) 0.0 % 0-5 [facility] Erythrocyte distribution wid th ratioOrdered By: ED PROVIDER on 03-14-2024 Erythrocyte distribution width (RBC) [Ratio] 12.3 % 11.6-14.6 [facility] Erythrocyte distribution wid th standard deviationOrdered By: ED PROVIDER on 03-14-2024 Erythrocyte distribution width (RBC) [Entitic vol] 41.4 fL 35.1-43.9 [facility] Estimated glomerular filtrat ion rate (GFR) AmericanOrdered By: ED PROVIDER on 03-14-2024 Estimated GFR (MDRD) Amer 97 mL/min >60 [facility] Comment on above: GFR Calc Glomerular filtration rate ( GFR) estimationOrdered By: ED PROVIDER on 03-14-2024 Estimated GFR (MDRD) Non-Af Amer 80 mL/min >60 [facility] Comment on above: Non- GFR Calc Glucose measurementOrdered B y: ED PROVIDER on 03-14-2024 Glucose [Mass/Vol] 123 mg/dL High 74-106 [facility] Comment on above: Fasting Glucose resu lt from 100 to 125 mg/dL suggests IMPAIRED HOMEOSTASIS per A.D.A. criteria. Hematocrit Auto (Bld) [Volum e fraction]Ordered By: ED PROVIDER on 03-14-2024 Hematocrit (Bld) [Volume fraction] 35.9 % Low 40-54 [facility] Hemoglobin measurementOrdere d By: ED PROVIDER on 03-14-2024 Hemoglobin (Bld) [Mass/Vol] 11.9 g/dL Low 13.0-16.5 [facility] Immature granulocytes/100 WB C Auto (Bld)Ordered By: ED PROVIDER on 03-14-2024 Immature granulocytes/100 WBC (Bld) 1.600 % High 0.0-0.9 [facility] Comment on above: IG% - Immature Granu locytes (promyelocytes, myelocytes and metamyelocytes) > 1% indicates that a LEFT SHIFT is Present. Influenza virus A and B and SARS-CoV-2 (COVID-19) and Respiratory syncytial virus RNAOrdered By: Vitaliy Malloy on 03-14-2024 SARS-CoV-2 (COVID-19) RNA ALEXANDRA+probe Ql (Unsp spec) [facility] L501.4020on 03-14-2024 TROPONIN-I HS 13 pg/mL Normal 3.0-78.0 [facility] Comment on above: Order Comment: 'TROP ' Serial specimen #1, #2 or #3: 1 Result Comment: Plea se Note: New Test Units and Gender Specific Reference Ranges. For more information see Policy Stat Procedure [place] High Sensitivity Troponin (TNIH) and attachments. Performed By: #### L 100.0100, L501.2450, L500.4050 #### [facility] [address] [place], [place] [address] [place], [address] Laboratory - Chemistry and C hemistry - challengeOrdered By: Vitaliy Malloy on 03-14-2024 AST [Catalytic activity/Vol] 22 U/L 15-37 [facility] Lymphocytes Auto (Unsp spec) [#/Vol]Ordered By: ED PROVIDER on 03-14-2024 Lymphocytes (Bld) [#/Vol] 0.56 10*3/uL Low 0.83-4.51 [facility] Lymphocytes/100 WBC Auto (Un sp spec)Ordered By: ED PROVIDER on 03-14-2024 Lymphocytes/100 WBC (Bld) 4.6 % Low 19-41 [facility] MCV (mean corpuscular volume ) determinationOrdered By: ED PROVIDER on 03-14-2024 MCV (RBC) [Entitic vol] 91.3 fL 80-94 [facility] [place] [facility] Mean corpuscular hemoglobin (MCH) determinationOrdered By: ED PROVIDER on 03-14-2024 MCH (RBC) [Entitic mass] 30.3 pg 27.0-32.0 [facility] Mean corpuscular hemoglobin concentration (MCHC) determinationOrdered By: ED PROVIDER on 03-14-2024 MCHC (RBC) [Mass/Vol] 33.1 g/dL 32-36 [facility] Mean platelet volume determi nationOrdered By: ED PROVIDER on 03-14-2024 Platelet mean volume (Bld) [Entitic vol] 8.4 fL 6.2-12.0 [facility] Monocyte percentageOrdered B y: ED PROVIDER on 03-14-2024 Monocytes/100 WBC (Bld) 8.4 % 0-10 [facility] [place] [facility] Neutrophil percentageOrdered By: ED PROVIDER on 03-14-2024 Neutrophils/100 WBC (Bld) 85.1 % High 47-70 [facility] Nucleated red blood cell per centageOrdered By: ED PROVIDER on 03-14-2024 Nucleated RBC/100 WBC (Bld) [Ratio] 0 % 0-5 [facility] Platelet countOrdered By: ED PROVIDER on 03-14-2024 Platelets (Bld) [#/Vol] 376 10*3/uL 150-450 [facility] Potassium measurementOrdered By: ED PROVIDER on 03-14-2024 Potassium [Moles/Vol] 4.7 mmol/L 3.5-5.1 [facility] RBC Auto (Bld) [#/Vol]Ordere d By: ED PROVIDER on 03-14-2024 RBC (Bld) [#/Vol] 3.93 10*6/uL Low 4.6-6.2 [facility] Serum anion gap measurementO rdered By: ED PROVIDER on 03-14-2024 Anion gap [Moles/Vol] 6 mmol/L 5-15 [facility] Serum globulin measurementOr dered By: Vitaliy Malloy on 03-14-2024 Globulin (S) [Mass/Vol] 4.6 g/dL High 2.2-4.2 [facility] Serum or plasma alanine cardona otransferase (ALT) measurementOrdered By: Vitaliy Malloy on 03-14-2024 ALT [Catalytic activity/Vol] 26 U/L 16-61 [facility] Serum or plasma albumin renetta urement (mass/volume)Ordered By: Vitaliy Malloy on 03-14-2024 Albumin [Mass/Vol] 2.2 g/dL Low 3.2-5.0 [facility] Serum or plasma alkaline janice sphatase measurementOrdered By: Vitaliy Malloy on 03-14-2024 ALP [Catalytic activity/Vol] 133 U/L High 45-117 [facility] Serum or plasma calcium renetta urement (mass/volume)Ordered By: ED PROVIDER on 03-14-2024 Calcium [Mass/Vol] 8.7 mg/dL 8.5-10.1 [facility] Serum or plasma creatinine m easurement (mass/volume)Ordered By: ED PROVIDER on 03-14-2024 Creatinine [Mass/Vol] 0.94 mg/dL 0.70-1.30 [facility] Comment on above: The validity of the calculated GFR & GFRAA in patients over 70 years has not been determined. Clinical correlation is essential. Serum or plasma urea nitroge n measurement (mass/volume)Ordered By: ED PROVIDER on 03-14-2024 Urea nitrogen [Mass/Vol] 21 mg/dL High 7-18 [facility] Sodium levelOrdered By: ED P ELMA on 03-14-2024 Sodium [Moles/Vol] 130 mmol/L Low 136-145 [facility] Total proteinOrdered By: Endy Malloy on 03-14-2024 Protein [Mass/Vol] 6.8 g/dL 6.4-8.2 [facility] Troponin IOrdered By: ED PRO VIDER on 03-14-2024 Troponin I High Sensitivity 13 pg/mL 3.0-78.0 [facility] Comment on above: Please Note: [place] t Units and Gender Specific Reference Ranges. For more information see Policy Stat Procedure [place] High Sensitivity Troponin (TNIH) and attachments. White blood cell (WBC) count Ordered By: ED PROVIDER on 03-14-2024 WBC (Bld) [#/Vol] 12.1 10*3/uL High 4.4-11.0 [facility] Absolute neutrophil countOrd ered By: Tiff White on 03-09-2024 Neutrophils (Bld) [#/Vol] 8.0 10*3/uL High 2.0-7.7 [facility] Albumin to globulin ratioOrd ered By: Tiff Langley on 03-09-2024 Albumin/Globulin [Mass ratio] 0.6 {ratio} Low 0.9-2.4 [facility] Basic Metabolic Profile (BMP )on 03-09-2024 BUN/CRE 25.7 RATIO High 10-20 [facility] Comment on above: Performed By: #### L 100.0100, L500.3400, L500.2500, L503.6005, L509.7000, M200.1000 ####[facility] [address] [place], [address] CA,Total 9.3 mg/dL Normal 8.5-10.1 [facility] Comment on above: Performed By: #### L 100.0100, L500.3400, L500.2500, L503.6005, L509.7000, M200.1000 ####[facility] [address] [place], [address] Chloride [Moles/Vol] 95 mmol/L Low 98-107 [facility] Comment on above: Performed By: #### L 100.0100, L500.3400, L500.2500, L503.6005, L509.7000, M200.1000 ####[facility] [address] [place], [address] CO2 [Moles/Vol] 27.0 mmol/L Normal 21.0-32.0 [facility] Comment on above: Performed By: #### L 100.0100, L500.3400, L500.2500, L503.6005, L509.7000, M200.1000 ####[facility] [address] [place], [address] Creatinine [Mass/Vol] 0.93 mg/dL Normal 0.70-1.30 [facility] Comment on above: Result Comment: The validity of the calculated GFR GFRAA in patients over 70 years has not been determined. Clinical correlation is essential. Performed By: #### L 100.0100, L500.3400, L500.2500, L503.6005, L509.7000, M200.1000 ####[facility] [address] [place], [address] ECRCL 40.61 ml/min Normal [facility] Comment on above: Performed By: #### L 100.0100, L500.3400, L500.2500, L503.6005, L509.7000, M200.1000 ####[facility] [address] [place], [place], [address] EST GFR - AA 98 mL/min Normal >60 [facility] Comment on above: Result Comment: Afri can [place]ral[place] GFR Calc Performed By: #### L 100.0100, L500.3400, L500.2500, L503.6005, L509.7000, M200.1000 ####[facility] [address] [place], [address] GAP 6 Normal 5-15 [facility] Comment on above: Performed By: #### L 100.0100, L500.3400, L500.2500, L503.6005, L509.7000, M200.1000 ####[facility] [address] [place], [address] GFR/1.73 sq M.predicted among non-blacks MDRD (S/P/Bld) [Vol rate/Area] 81 mL/min/{1.73_m2} Normal >60 [facility] Comment on above: Result Comment: Non- GFR Calc Performed By: #### L 100.0100, L500.3400, L500.2500, L503.6005, L509.7000, M200.1000 ####[facility] [address] [place], [address] Glucose [Mass/Vol] 120 mg/dL High 74-106 [facility] Comment on above: Result Comment: Fast ing Glucose result from 100 to 125 mg/dL suggests IMPAIRED HOMEOSTASIS per A.D.A. criteria. Performed By: #### L 100.0100, L500.3400, L500.2500, L503.6005, L509.7000, M200.1000 ####[facility] [address] [place], [address] Potassium [Moles/Vol] 4.8 mmol/L Normal 3.5-5.1 [facility] Comment on above: Performed By: #### L 100.0100, L500.3400, L500.2500, L503.6005, L509.7000, M200.1000 ####[facility] [address] [place], [address] Sodium [Moles/Vol] 128 mmol/L Low 136-145 [facility] Comment on above: Performed By: #### L 100.0100, L500.3400, L500.2500, L503.6005, L509.7000, M200.1000 ####[facility] [address] [place], [address] Urea nitrogen [Mass/Vol] 24 mg/dL High 7-18 [facility] Comment on above: Performed By: #### L 100.0100, L500.3400, L500.2500, L503.6005, L509.7000, M200.1000 ####[facility] [address] [place], [address] Basophil percentageOrdered B y: Tiff White on 03-09-2024 Basophils/100 WBC (Bld) 0.6 % 0-1 [facility] Bilirubin Test strip Ql (U)O rdered By: Abdulaziz Lopes on 03-09-2024 Bilirubin Ql (U) Negative Negative [facility] Bilirubin directOrdered By: Abdulaziz Moses on 03-09-2024 Bilirubin.direct [Mass/Vol] 0.17 mg/dL 0.00-0.30 [facility] Bilirubin, totalOrdered By: Tiff Langley on 03-09-2024 Bilirubin [Mass/Vol] 0.60 mg/dL 0.20-1.00 [facility] Comment on above: For patients on eltr ombopag therapy, use of Dimension [place] TBIL is not recommended. Blood urea nitrogen (BUN)/cr eatinine ratioOrdered By: Tiff Langley on 03-09-2024 Urea nitrogen/Creatinine [Mass ratio] 24.9 mg/mg High 10-20 [facility] CBC W/Diff, Automatedon 02-27 SMEAR COMMENT SCANNED Normal [facility] Comment on above: Result Comment: AUTO DIFF OK Performed By: #### L 100.0100, L500.4050 ####[facility] [address] [place], [address] Absolute Lymph 0.46 X10 3/uL Low 0.83-4.51 [facility] Comment on above: Performed By: #### L 100.0100, L500.3400, L500.2500, L503.6005, L509.7000, M200.1000 ####[facility] [address] [place], [address] Absolute Neut 9.1 X10 3/uL High 2.0-7.7 [facility] Comment on above: Performed By: #### L 100.0100, L500.3400, L500.2500, L503.6005, L509.7000, M200.1000 ####[facility] [address] [place], [address] Basophils/100 WBC (Bld) 0.5 % Normal 0-1 [facility] Comment on above: Performed By: #### L 100.0100, L500.3400, L500.2500, L503.6005, L509.7000, M200.1000 ####[facility] [address] [place], [address] Eosinophils/100 WBC (Bld) 0.0 % Normal 0-5 [facility] Comment on above: Performed By: #### L 100.0100, L500.3400, L500.2500, L503.6005, L509.7000, M200.1000 ####[facility] [address] [place], [address] Erythrocyte distribution width (RBC) [Ratio] 12.6 % Normal 11.6-14.6 [facility] Comment on above: Performed By: #### L 100.0100, L500.3400, L500.2500, L503.6005, L509.7000, M200.1000 ####[facility] [address] [place], [address] Hematocrit (Bld) [Volume fraction] 38.8 % Low 40-54 [facility] Comment on above: Performed By: #### L 100.0100, L500.3400, L500.2500, L503.6005, L509.7000, M200.1000 ####[facility] [address] [place], [address] Hemoglobin (Bld) [Mass/Vol] 13.1 g/dL Normal 13.0-16.5 [facility] Comment on above: Performed By: #### L 100.0100, L500.3400, L500.2500, L503.6005, L509.7000, M200.1000 ####[facility] [address] [place], [address] IG% 1.800 High 0.0-0.9 [facility] Comment on above: Result Comment: IG% - Immature Granulocytes (promyelocytes, myelocytes and metamyelocytes) > 1% indicates that a LEFT SHIFT is Present. Performed By: #### L 100.0100, L500.3400, L500.2500, L503.6005, L509.7000, M200.1000 ####[facility] [address] [place], [address] Lymphocytes/100 WBC (Bld) 4.3 % Low 19-41 [facility] Comment on above: Performed By: #### L 100.0100, L500.3400, L500.2500, L503.6005, L509.7000, M200.1000 ####[facility] [address] [place], [address] MCH (RBC) [Entitic mass] 30.9 pg Normal 27.0-32.0 [facility] Comment on above: Performed By: #### L 100.0100, L500.3400, L500.2500, L503.6005, L509.7000, M200.1000 ####[facility] [address] [place], [address] MCHC (RBC) [Mass/Vol] 33.8 g/dL Normal 32-36 [facility] Comment on above: Performed By: #### L 100.0100, L500.3400, L500.2500, L503.6005, L509.7000, M200.1000 ####[facility] [address] [place], [address] MCV (RBC) [Entitic vol] 91.5 fL Normal 80-94 [facility] Comment on above: Performed By: #### L 100.0100, L500.3400, L500.2500, L503.6005, L509.7000, M200.1000 ####[facility] [address] [place], [address] Monocytes/100 WBC (Bld) 7.1 % Normal 0-10 [facility] Comment on above: Performed By: #### L 100.0100, L500.3400, L500.2500, L503.6005, L509.7000, M200.1000 ####[facility] [address] [place], [address] Neutrophils/100 WBC (Bld) 86.3 % High 47-70 [facility] Comment on above: Performed By: #### L 100.0100, L500.3400, L500.2500, L503.6005, L509.7000, M200.1000 ####[facility] [address] [place], [address] Nucleated RBC (Bld) [#/Vol] 0 10*3/uL Normal 0-5 [facility] Comment on above: Performed By: #### L 100.0100, L500.3400, L500.2500, L503.6005, L509.7000, M200.1000 ####[facility] [address] [place], [address] Platelet mean volume (Bld) [Entitic vol] 9.3 fL Normal 6.2-12.0 [facility] Comment on above: Performed By: #### L 100.0100, L500.3400, L500.2500, L503.6005, L509.7000, M200.1000 ####[facility] [address] [place], [address] Platelets (Bld) [#/Vol] 286 10*3/uL Normal 150-450 [facility] Comment on above: Performed By: #### L 100.0100, L500.3400, L500.2500, L503.6005, L509.7000, M200.1000 ####[facility] [address] [place], [address] RBC (Bld) [#/Vol] 4.24 10*6/uL Low 4.6-6.2 [facility] Comment on above: Performed By: #### L 100.0100, L500.3400, L500.2500, L503.6005, L509.7000, M200.1000 ####[facility] [address] [place], [address] RDW SD 42.2 fl Normal 35.1-43.9 [facility] Comment on above: Performed By: #### L 100.0100, L500.3400, L500.2500, L503.6005, L509.7000, M200.1000 ####[facility] [address] [place], [address] WBC (Bld) [#/Vol] 10.6 10*3/uL Normal 4.4-11.0 [facility] Comment on above: Performed By: #### L 100.0100, L500.3400, L500.2500, L503.6005, L509.7000, M200.1000 ####[facility] [address] [facility] [place], [address] Carbon dioxide measurementOr dered By: Tiff Langley on 03-09-2024 CO2 [Moles/Vol] 25.0 mmol/L 21.0-32.0 [facility] Chest 1 View (Portable)on Chest 1 View (Portable) [facility] Imaging Services [address] [place] [address] Chest 1 View (Portable) MR#: [id number] Acct: [id number] Name: ELIESER VILLEGAS Rep #: [id number] : 1935 M 88 From: Andres chatterjee MD PCP: Dr. Johnny Shelton, DO Status: ADM IN Study: Chest 1 View (Portable) Date of Exam: 03/09/24 Exam# [id number] Ordering Dr: Tiff Langley MD [id number] STUDY: X-RAY CHEST REASON FOR EXAM: Male, 88 years old. Fever TECHNIQUE: Single AP portable view of the chest. COMPARISON: Comparison is made with prior examination dated March 09, 2024 at 12:37 AM. FINDINGS: EKG electrodes are seen. Progressive infiltration in the right lower lobe suggestive of a pneumonic infiltration superimposed on bibasilar scarring. There is no demonstrated pleural abnormality. Normal size heart. Normal mediastinum and bryan. Normal visualized pulmonary arteries. There is atherosclerotic calcification of the aortic arch with tortuosity. There are diffuse degenerative changes of the visualized thoracic spine. Normal visualized ribs, clavicles, and shoulders. There is no demonstrated abnormality of the visualized soft tissue structures of the upper abdomen. RAD/Chest 1 View (Portable) IMPRESSION: Right lower lobe infiltrate superimposed on basilar scarring. Electronically Signed: Andres Rojas MD at 10:23 [facility] Reading Location ID and State: [facility] / [place] , Service support , CC: Dr. Tiff Langley MD; Dr. Johnny Shelton DO Case Management Associate: Signed Normal [facility] Chest 1 View (Portable) [facility] Imaging Services [address] [place] [address] Chest 1 View (Portable) MR#: [id number] Acct: [id number] Name: ELIESER VILLEGAS Rep #: [id number] : 1935 88 From: Leo Art MD PCP: Dr. Johnny Shelton DO Status: REG ER Study: Chest 1 View (Portable) Date of Exam: 03/09/24 Exam# [id number] Ordering Dr: Abdulaziz Lopes DO [id number] EXAM: XR CHEST, 1 VIEW CLINICAL INDICATION: cough TECHNIQUE: Frontal view of the chest. COMPARISON: Single view chest 04/09/2023 FINDINGS: LUNGS AND PLEURAL SPACES: Hyperinflation. Scarring in the lung bases. No pneumothorax. No effusion. HEART: Unremarkable. Cardiac silhouette not enlarged. MEDIASTINUM: Central airways and mediastinal contour are unremarkable. BONES/JOINTS: Unremarkable. No acute fracture. SOFT TISSUES: Unremarkable. RAD/Chest 1 View (Portable) IMPRESSION: No acute findings in the chest. COPD changes, and scarring in the lung bases. Electronically Signed: Leo Art MD at 1:05 EST , CC: Dr. Johnny Shelton, ; Abdulaziz Lopes DO Case Management Associate: Signed Normal [facility] Chloride measurementOrdered By: Tiff Langley on 03-09-2024 Chloride [Moles/Vol] 103 mmol/L 98-107 [facility] Comprehensive Metabolic Prof ilon 03-09-2024 Albumin [Mass/Vol] 2.1 g/dL Low 3.2-5.0 [facility] Comment on above: Performed By: #### L 100.0100, L500.4050 ####[facility] [address] [place], [address] Albumin/Globulin [Mass ratio] 0.6 {ratio} Low 0.9-2.4 [facility] Comment on above: Performed By: #### L 100.0100, L500.4050 ####[facility] [address] [place], [address] ALK P 114 U/L Normal 45-117 [facility] Comment on above: Performed By: #### L 100.0100, L500.4050 ####[facility] [address] [place], [address] ALT [Catalytic activity/Vol] 20 U/L Normal 16-61 [facility] Comment on above: Performed By: #### L 100.0100, L500.4050 ####[facility] [address] [place], [address] AST [Catalytic activity/Vol] 18 U/L Normal 15-37 [facility] Comment on above: Performed By: #### L 100.0100, L500.4050 ####[facility] [address] [place], [address] Bilirubin [Mass/Vol] 0.60 mg/dL Normal 0.20-1.00 [facility] Comment on above: Result Comment: For patients on eltrombopag therapy, use of Dimension [place] TBIL is not recommended. Performed By: #### L 100.0100, L500.4050 ####[facility] [address] [place], [address] BUN/CRE 24.9 RATIO High 10-20 [facility] Comment on above: Performed By: #### L 100.0100, L500.4050 ####[facility] [address] [place], [address] CA,Total 8.3 mg/dL Low 8.5-10.1 [facility] Comment on above: Performed By: #### L 100.0100, L500.4050 ####[facility] [address] [place], [address] Chloride [Moles/Vol] 103 mmol/L Normal 98-107 [facility] Comment on above: Performed By: #### L 100.0100, L500.4050 ####[facility] [address] [place], [address] CO2 [Moles/Vol] 25.0 mmol/L Normal 21.0-32.0 [facility] Comment on above: Performed By: #### L 100.0100, L500.4050 ####[facility] [address] [place], [address] Creatinine [Mass/Vol] 0.84 mg/dL Normal 0.70-1.30 [facility] Comment on above: Result Comment: The validity of the calculated GFR GFRAA in patients over 70 years has not been determined. Clinical correlation is essential. Performed By: #### L 100.0100, L500.4050 ####[facility] [address] [place], [address] ECRCL 44.28 ml/min Normal [facility] Comment on above: Performed By: #### L 100.0100, L500.4050 ####[facility] [address] [place], [address] EST GFR - AA 110 mL/min Normal >60 [facility] Comment on above: Result Comment: Afri can Gibraltarian GFR Calc Performed By: #### L 100.0100, L500.4050 ####[facility] [address] [place], [address] GAP 6 Normal 5-15 [facility] Comment on above: Performed By: #### L 100.0100, L500.4050 ####[facility] [address] [place], [address] GFR/1.73 sq M.predicted among non-blacks MDRD (S/P/Bld) [Vol rate/Area] 91 mL/min/{1.73_m2} Normal >60 [facility] Comment on above: Result Comment: Non- GFR Calc Performed By: #### L 100.0100, L500.4050 ####[facility] [address] [place], [address] Globulin (S) [Mass/Vol] 3.8 g/dL Normal 2.2-4.2 [facility] Comment on above: Performed By: #### L 100.0100, L500.4050 ####[facility] [address] [place], [address] Glucose [Mass/Vol] 104 mg/dL Normal 74-106 [facility] Comment on above: Result Comment: Fast ing Glucose result from 100 to 125 mg/dL suggests IMPAIRED HOMEOSTASIS per A.D.A. criteria. Performed By: #### L 100.0100, L500.4050 ####[facility] [address] [place], [address] Potassium [Moles/Vol] 4.2 mmol/L Normal 3.5-5.1 [facility] Comment on above: Performed By: #### L 100.0100, L500.4050 ####[facility] [address] [place], [address] Sodium [Moles/Vol] 134 mmol/L Low 136-145 [facility] Comment on above: Performed By: #### L 100.0100, L500.4050 ####[facility] [address] [place], [address] T PROT 5.9 g/dL Low 6.4-8.2 [facility] Comment on above: Performed By: #### L 100.0100, L500.4050 ####[facility] [address], [address] Urea nitrogen [Mass/Vol] 21 mg/dL High 7-18 [facility] Comment on above: Performed By: #### L 100.0100, L500.4050 ####[facility] [address] [place], [address] Emergency Department Summary on 03-09-2024 Emergency Department Summary [facility] Medical Records Department [address] [place] [address] Emergency Department Summary 03/09/24 MR#: [id number] Acct: [id number] Name: ELIESER VILLEGAS Rep #: [id number] : 1935 88 From: Abdulaziz Lopes DO PCP: Dr. Johnny Shelton DO Status:ADM IN Location: [place] [address] HPI History of Present Illness Chief Complaint: Weakness Informant: patient, spouse/S.O. and family Narrative Narrative: Patient is an 88-year-old male who lives at home with his . She states he takes no medications. They report that he has been having increased generalized weakness for the past few months however in the past week his weakness has worsened to the point where he is now unable to stand and ambulate. He reports that he has congestion and cough at baseline. He states it is not worse than normal. He denies any dysuria. He states he is a chronic wound around his buttocks but sees wound care for this. As the patient is having increasing weakness to the point where he is no longer able to care for himself he was brought in for evaluation [facility] Medical History Chronic cough Hx of fracture of hip History of renal disease Former smoker Vitamin D insufficiency Abnormal results of thyroid function studies Loss of hearing Wears glasses Wears partial dentures Cancer Alcohol use Arthritis Low iron Back pain Heartburn Shortness of breath on exertion History of edema History of SIADH Chronic bronchitis Hydronephrosis Former smoker Closed intertrochanteric fracture of left femur Kidney failure Prostate cancer Hyponatremia Prostatic cancer Home Medications ???Medication ???Instructions ???Recorded ???Last Taken ???Type NK 03/08/24 Unknown History Allergy/AdvReac Type Severity Reaction Status Date / Time No Known Allergies Allergy Verified 03/08/24 23:43 Family History Mother Heart disease Father Heart disease Surgical History History of cystoscopy Hx of cystoscopy History of open reduction and internal fixation (ORIF) procedure History of open reduction and internal fixation (ORIF) procedure History of transurethral resection of prostate Status post appendectomy History of renal stent H/O hernia repair Social History household members: spouse and other details: 2 st0ry house. He sleeps downstairs in a recliner. 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 Tobacco: How many years used: 67 how long ago did patient quit smoking: He quit in 2019 alcohol intake: current alcohol intake frequency: holidays/special occasions only substance use type: does not use ROS ROS ED Constitutional Constitutional ED: Denies chills or fever(s) Eyes Eyes: Denies change in vision ENT ENT ED: Reports rhinorrhea Cardiovascular Cardiovascular: Denies chest pain Respiratory/Chest Respiratory/Chest: Reports cough; Denies dyspnea Gastrointestinal Gastrointestinal: Denies abdominal pain, diarrhea, nausea or vomiting Genitourinary Genitourinary ED: Denies dysuria Musculoskeletal Musculoskeletal: Denies myalgias Integumentary Reports other Details: Positive chronic wound left buttocks Neurologic Neurologic: Reports weakness; Denies headache(s) Hematologic/Lymphatic Hematologic/Lymphatic: Denies easy bleeding or easy bruising EXAM Physical Exam Const Vital Signs: 03/08/24 23:44 03/08/24 23:47 03/09/24 00:47 Temperature 100.8 F H 100.8 F H 99.9 F H Temperature Source Oral Oral Oral Pulse Rate 121 H 122 H 109 H Respiratory Rate 18 16 18 Blood Pressure 137/97 H 137/97 H 120/80 Blood Pressure Mean 110 110 93 Pulse Ox 94 94 93 Oxygen Delivery Method Room Air 03/09/24 01:00 03/09/24 02:00 03/09/24 03:00 Temperature 99.9 F H 98.4 F 99.1 F Temperature Source Oral Oral Oral Pulse Rate 109 H 96 87 Respiratory Rate 18 18 18 Blood Pressure 112/94 H 112/96 H 100/59 L Blood Pressure Mean 100 101 72 Pulse Ox 93 95 94 Oxygen Delivery Method Room Air Room Air Room Air 03/09/24 04:00 03/09/24 04:03 Temperature 99.1 F 99.1 F Temperature Source Oral Pulse Rate 80 86 Respiratory Rate 15 18 Blood Pressure 95/58 L 95/58 L Blood Pressure Mean 70 70 Pulse Ox 94 94 Oxygen Delivery Method Positive well nourished and well developed General Appearance ED: well developed HEENT HEENT Narrative: No tongue or lip swelling no oral lesions no airway edema or compromise Patient has cobblestoning presen (more content not included)... Normal [facility] Eosinophil percentageOrdered By: Tiff White on 03-09-2024 Eosinophils/100 WBC (Bld) 0.0 % 0-5 [facility] Epithelial cells.squamous LM Ql (Urine sed)Ordered By: Abdulaziz Lopes on 03-09-2024 Epithelial cells.squamous LM.HPF (Urine sed) [#/Area] 0 /[HPF] 0-5 [facility] Erythrocyte distribution wid th ratioOrdered By: Tiff Langley on 03-09-2024 Erythrocyte distribution width (RBC) [Ratio] 12.6 % 11.6-14.6 [facility] Erythrocyte distribution wid th standard deviationOrdered By: Tiff Langley on 03-09-2024 Erythrocyte distribution width (RBC) [Entitic vol] 43.6 fL 35.1-43.9 [facility] Estimated glomerular filtrat ion rate (GFR) AmericanOrdered By: Tiff Langley on 03-09-2024 Estimated GFR (MDRD) Amer 110 mL/min >60 [facility] Comment on above: GFR Calc Estimation of creatinine shanita aranceOrdered By: Tiff Langley on 03-09-2024 Estimated Creatinine Clearance Calc 44.28 ml/min [facility] Glomerular filtration rate ( GFR) estimationOrdered By: Tiff Langley on 03-09-2024 Estimated GFR (MDRD) Non-Af Amer 91 mL/min >60 [facility] Comment on above: Non- GFR Calc Glucose Ql (U)Ordered By: Tia Lopes on 03-09-2024 Urine Glucose (UA) Normal mg/dl Normal [facility] Glucose measurementOrdered B y: Tiff Langley on 03-09-2024 Glucose [Mass/Vol] 104 mg/dL 74-106 [facility] Comment on above: Fasting Glucose resu lt from 100 to 125 mg/dL suggests IMPAIRED HOMEOSTASIS per A.D.A. criteria. H AND P Exam - Hospitaliston 03-09-2024 H&P Exam - Hospitalist [facility] Medical Records Department [address] [place] [address] H P Exam - Hospitalist 03/09/24 0358 MR#: [id number] Acct: [id number] Name: ELIESER VILLEGAS Rep #: [id number] : 1935 88 From: Tiff Langley MD PCP: Dr. Johnny Shelton, DO Status:ADM IN Location: [facility] TAU084-3 HPI - General General Date of Admission: 03/09/24 Date of Service: 03/09/24 Chief Complaint: Fever, debility HPI Narrative The patient is an 88 y/o M w/ PMHx: Hx Prostate CA s/p radiation 2015 in remission, Hx Lung CA unclear type/location s/p radiation considered in remission, History SIADH w/ Chronic Hyponatremia, Former tobacco use, GERD, Chronic back pain, CKD stage II per GFR trending, COPD, chronic obstruction of the right kidney with most recent noted cystoscopy and right stent change 02/03/[address] 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 Patient does have ongoing chronic cough and dyspnea but feels as this is unchanged. Patient had denied any recent fevers but upon ED arrival was noted to be febrile. Workup in the ED included T1 100.8 orally, heart rate 121, BP 137/97, respiratory rate 18, 94% on room air with most recent repeat vital signs T99.1, heart rate 87, BP 100/59, respiratory rate 18, 94% on room air, CBC with WBC 10.6, human 13.1, platelet 286 with left shift and lymphopenia, CMP with sodium 128, chloride 95, BUN/creatinine 24/0.93, GFR 81, glucose 120, lactic acid 0.8, hepatic profile with alk phos 152 otherwise not marked appearing, procalcitonin 0.15, urinalysis with specific gravity 1.005, protein 30, occult blood 50, nitrite negative, leukocyte Estrace 100 with urine RBCs 5-10 and urine WBCs 10-25 with no urine bacteria noted, blood culture pending per ED, rapid SARS COVID/influenza/RSV PCR negative, chest x-ray with COPD type changes with scarring in the lung bases with no acute cardiopulmonary findings otherwise. In the ED patient ministered Tylenol 1000 mg p.o. x 1, IV vancomycin and IV Zosyn. Per most recent wound care evaluation patient is to continue to wash the region with antibacterial soap, pat dry, apply Fibracol to the wound base moistened with Adaptic and foam dressing over the top daily, recommended continued gel cushion, avoidance of prolonged sitting, nutrition supplementations also encouraged. [facility] Medical History Chronic cough Hx of fracture of hip History of renal disease Former smoker Vitamin D insufficiency Abnormal results of thyroid function studies Loss of hearing Wears glasses Wears partial dentures Cancer Alcohol use Arthritis Low iron Back pain Heartburn Shortness of breath on exertion History of edema History of SIADH Chronic bronchitis Hydronephrosis Former smoker Closed intertrochanteric fracture of left femur Kidney failure Prostate cancer Hyponatremia Prostatic cancer Home Medications ???Medication ???Instructions ???Recorded ???Last Taken ???Type NK 03/08/24 Unknown History Allergy/AdvReac Type Severity Reaction Status Date / Time No Known Allergies Allergy Verified 03/08/24 23:43 Family History Mother Heart disease Father Heart disease Surgical History History of cystoscopy Hx of cystoscopy History of open reduction and internal fixation (ORIF) procedure History of open reduction and internal fixation (ORIF) procedure History of transurethral resection of prostate Status post appendectomy History of renal stent H/O hernia repair Social History household members: spouse and other details: 2 stry house. He sleeps downstairs in a recliner. 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 HEENT: Eyes: No visual loss, blurred vision, double vision or yellow sclerae. Ears, Nose, Thro (more content not included)... Normal [facility] Hematocrit Auto (Bld) [Volum e fraction]Ordered By: Tiff Langley on 03-09-2024 Hematocrit (Bld) [Volume fraction] 34.3 % Low 40-54 [facility] Hemoglobin measurementOrdere d By: Tiff Langley on 03-09-2024 Hemoglobin (Bld) [Mass/Vol] 11.3 g/dL Low 13.0-16.5 [facility] Immature granulocytes/100 WB C Auto (Bld)Ordered By: Tiff Langley on 03-09-2024 Immature granulocytes/100 WBC (Bld) 2.000 % High 0.0-0.9 [facility] Comment on above: IG% - Immature Granu locytes (promyelocytes, myelocytes and metamyelocytes) > 1% indicates that a LEFT SHIFT is Present. Ketones Test strip Ql (U)Ord ered By: Abdulaziz Lopes on 03-09-2024 Ketones Ql (U) Negative Negative [facility] Laboratory - Chemistry and C hemistry - challengeOrdered By: Tiff Langley on 03-09-2024 AST [Catalytic activity/Vol] 18 U/L 15-37 [facility] Lactic Acidon 03-09-2024 Lactate [Moles/Vol] 0.8 mmol/L Normal 0.4-1.9 [facility] Comment on above: Order Comment: Y Performed By: #### L 100.0100, L500.3400, L500.2500, L503.6005, L509.7000, M200.1000 ####[facility] [address] [place], [place], [id number] Lactic acid measurementOrder ed By: Abdulaziz Lopes on 03-09-2024 Lactate [Moles/Vol] 0.8 mmol/L 0.4-2.0 [facility] Liver Profileon 03-09-2024 Albumin [Mass/Vol] 2.8 g/dL Low 3.2-5.0 [facility] Comment on above: Performed By: #### L 100.0100, L500.3400, L500.2500, L503.6005, L509.7000, M200.1000 ####[facility] [address] [place], [address] ALK P 152 U/L High 45-117 [facility] Comment on above: Performed By: #### L 100.0100, L500.3400, L500.2500, L503.6005, L509.7000, M200.1000 ####[facility] [address] [place], [address] ALT [Catalytic activity/Vol] 30 U/L Normal 16-61 [facility] Comment on above: Performed By: #### L 100.0100, L500.3400, L500.2500, L503.6005, L509.7000, M200.1000 ####[facility] [address] [place], [address] AST [Catalytic activity/Vol] 26 U/L Normal 15-37 [facility] Comment on above: Performed By: #### L 100.0100, L500.3400, L500.2500, L503.6005, L509.7000, M200.1000 ####[facility] [address] [place], [address] Bilirubin [Mass/Vol] 0.40 mg/dL Normal 0.20-1.00 [facility] Comment on above: Result Comment: For patients on eltrombopag therapy, use of Dimension [place] TBIL is not recommended. Performed By: #### L 100.0100, L500.3400, L500.2500, L503.6005, L509.7000, M200.1000 ####[facility] [address] [place], [address] Bilirubin.direct [Mass/Vol] 0.17 mg/dL Normal 0.00-0.30 [facility] Comment on above: Performed By: #### L 100.0100, L500.3400, L500.2500, L503.6005, L509.7000, M200.1000 ####[facility] [address] [place], [address] Globulin (S) [Mass/Vol] 5.0 g/dL High 2.2-4.2 [facility] Comment on above: Performed By: #### L 100.0100, L500.3400, L500.2500, L503.6005, L509.7000, M200.1000 ####[facility] [address] [place], [address] T PROT 7.8 g/dL Normal 6.4-8.2 [facility] Comment on above: Performed By: #### L 100.0100, L500.3400, L500.2500, L503.6005, L509.7000, M200.1000 ####[facility] [address] [place], [address] Lymphocytes Auto (Unsp spec) [#/Vol]Ordered By: Tiff Langley on 03-09-2024 Lymphocytes (Bld) [#/Vol] 0.50 10*3/uL Low 0.83-4.51 [facility] [facility] Lymphocytes/100 WBC Auto (Un sp spec)Ordered By: Shivam on 03-09-2024 Lymphocytes/100 WBC (Bld) 5.3 % Low 19-41 [facility] M100.678on 03-09-2024 M100.678 Pending SARS-CoV-2 (COVID 19) Negative INFLUENZA A Negative INFLUENZA B Negative RSV PCR Negative Normal [facility] Comment on above: Performed By: #### L 100.0100, L501.2450, L500.4050 #### [facility] [address] [place], [address] MCV (mean corpuscular volume ) determinationOrdered By: Tiff Langley on 03-09-2024 MCV (RBC) [Entitic vol] 94.2 fL High 80-94 [facility] Magnesiumon 03-09-2024 Magnesium [Mass/Vol] 2.1 mg/dL Normal 1.6-2.6 [facility] Comment on above: Order Comment: Comme nts: May add to ED labsComments: may add to ED labs Performed By: #### L 100.0100, L501.2450, L500.4050 #### [facility] [address] [place], [address] Magnesium measurementOrdered By: Tiff Langley on 03-09-2024 Magnesium [Mass/Vol] 2.1 mg/dL 1.6-2.6 [facility] Manual differential comment Haim (Bld) [Interp]Ordered By: Tiff Langley on 03-09-2024 Differential Comment SCANNED [facility] Comment on above: AUTO DIFF OK Mean corpuscular hemoglobin (MCH) determinationOrdered By: Tiff Langley on 03-09-2024 MCH (RBC) [Entitic mass] 31.0 pg 27.0-32.0 [facility] Mean corpuscular hemoglobin concentration (MCHC) determinationOrdered By: Tiff Langley on 03-09-2024 MCHC (RBC) [Mass/Vol] 32.9 g/dL 32-36 [facility] Mean platelet volume determi nationOrdered By: Tiff Langley on 03-09-2024 Platelet mean volume (Bld) [Entitic vol] 8.8 fL 6.2-12.0 [facility] Microscopic analysis of urin e for red blood cells (RBC)Ordered By: Abdulaziz Lopes on 03-09-2024 Urine RBC 5-10 SEEN /hpf 0-5 [facility] Monocyte percentageOrdered B y: Tiff Langley on 03-09-2024 Monocytes/100 WBC (Bld) 6.5 % 0-10 [facility] Mucus LM Ql (Urine sed)Order ed By: Abdulaziz Lopes on 03-09-2024 Mucus Ql (Urine sed) 0 SEEN /hpf [facility] Neutrophil percentageOrdered By: Tiff Langley on 03-09-2024 Neutrophils/100 WBC (Bld) 85.6 % High 47-70 [facility] Nitrite Test strip Ql (U)Ord ered By: Abdulaziz Lopes on 03-09-2024 Nitrite Ql (U) Negative Negative [facility] Nucleated red blood cell per centageOrdered By: Tiff Langley on 03-09-2024 Nucleated RBC/100 WBC (Bld) [Ratio] 0 % 0-5 [facility] Phosphoruson 03-09-2024 Phosphate [Mass/Vol] 3.0 mg/dL Normal 2.5-4.9 [facility] Comment on above: Order Comment: Comme nts: May add to ED labsComments: may add to ED labs Performed By: #### L 100.0100, L501.2450, L500.4050 #### [facility] [address] [place], [address] Phosphorus measurementOrdere d By: Tiff Shivam on 03-09-2024 Phosphorus Level 3.0 mg/dL 2.5-4.9 [facility] Platelet countOrdered By: Kelsey Langley on 03-09-2024 Platelets (Bld) [#/Vol] 263 10*3/uL 150-450 [facility] Potassium measurementOrdered By: Tiff Shivam on 03-09-2024 Potassium [Moles/Vol] 4.2 mmol/L 3.5-5.1 [facility] Procalcitoninon 03-09-2024 Procalcitonin 0.15 ng/mL High 0.00-0.09 [facility] Comment on above: Result Comment: A procalcitonin (PCT) level above 2.0 ng/mL on the first day of ICU admission is associated with a high risk for progression to severe sepsis and/or septic shock. A PCT level below 0.5 ng/mL on the first day of ICU admission is associated with a low risk for progression to severe and/or septic shock. Note: Concentrations <0.5 ng/mL do not exclude an infection on account of localized infections (without systemic signs) which can be associated with such low concentrations, or a systemic infection in its initial stages (<6 hours). Furthermore, increased procalcitonin can occur without infection. PCT concentrations between 0.5 and 2.0 ng/mL should be interpreted taking into account the patient's history. It is recommended to retest PCT within 6-24 hours if any concentrations <2 ng/mL are obtained. Performed By: #### L 100.0100, L500.3400, L500.2500, L503.6005, L509.7000, M200.1000 ####[facility] [id number] [place], [place], [id number] Procalcitonin [Mass/Vol]Orde red By: Abdulaziz Lopes on 03-09-2024 Procalcitonin 0.15 ng/mL High 0.00-0.09 [facility] Comment on above: A procalcitonin (PCT ) level above 2.0 ng/mL on the first day of ICU admission is associated with a high risk for progression to severe sepsis and/or septic shock. A PCT level below 0.5 ng/mL on the first day of ICU admission is associated with a low risk for progression to severe and/or septic shock. Note: Concentrations <0.5 ng/mL do not exclude an infection on account of localized infections (without systemic signs) which can be associated with such low concentrations, or a systemic infection in its initial stages (<6 hours). Furthermore, increased procalcitonin can occur without infection. PCT concentrations between 0.5 and 2.0 ng/mL should be interpreted taking into account the patient's history. It is recommended to retest PCT within 6-24 hours if any concentrations <2 ng/mL are obtained. Protein Test strip Ql (U)Ord ered By: Abdulaziz Lopes on 03-09-2024 Protein Ql (U) 30 mg/dl High Negative [facility] RBC Auto (Bld) [#/Vol]Ordere d By: Tiff White on 03-09-2024 RBC (Bld) [#/Vol] 3.64 10*6/uL Low 4.6-6.2 [facility] RESPIRATORY PANEL MOLECULARo n 03-09-2024 RP PANEL ADENOVIRUS Not Detected INFLUENZA A Not Detected INFLUENZA A (SUBTYPE H1) Not Detected INFLUENZA A (SUBTYPE H3) Not Detected INFLUENZA B Not Detected HUMAN METAPHNEUMO Not Detected PARAINFLUENZA 1 Not Detected PARAINFLUENZA 2 Not Detected PARAINFLUENZA 3 Not Detected PARAINFLUENZA 4 Not Detected RHINOVIRUS Not Detected RSV A Not Detected RSV B Not Detected Normal [facility] Comment on above: Performed By: #### M 100.638 ####[facility] [address] [place], [address] Respiratory pathogens DNA an d RNA panel ALEXANDRA+probe (Resp)Ordered By: Tiff Langley on 03-09-2024 Respiratory Panel (PCR) [facility] Serum anion gap measurementO rdered By: Tiff Shivam on 03-09-2024 Anion gap [Moles/Vol] 6 mmol/L 5-15 [facility] Serum globulin measurementOr dered By: Tiff Langley on 03-09-2024 Globulin (S) [Mass/Vol] 3.8 g/dL 2.2-4.2 [facility] Serum or plasma alanine cardona otransferase (ALT) measurementOrdered By: Tiff Langley on 03-09-2024 ALT [Catalytic activity/Vol] 20 U/L 16-61 [facility] Serum or plasma albumin renetta urement (mass/volume)Ordered By: Tiff Langley on 03-09-2024 Albumin [Mass/Vol] 2.1 g/dL Low 3.2-5.0 [facility] Serum or plasma alkaline janice sphatase measurementOrdered By: Tiff Langley on 03-09-2024 ALP [Catalytic activity/Vol] 114 U/L 45-117 [facility] Serum or plasma calcium renetta urement (mass/volume)Ordered By: Tiff Langley on 03-09-2024 Calcium [Mass/Vol] 8.3 mg/dL Low 8.5-10.1 [facility] Serum or plasma creatinine m easurement (mass/volume)Ordered By: Tiff Langley on 03-09-2024 Creatinine [Mass/Vol] 0.84 mg/dL 0.70-1.30 [facility] Comment on above: The validity of the calculated GFR & GFRAA in patients over 70 years has not been determined. Clinical correlation is essential. Serum or plasma urea nitroge n measurement (mass/volume)Ordered By: Tiff Langley on 03-09-2024 Urea nitrogen [Mass/Vol] 21 mg/dL High 7-18 [facility] Sodium levelOrdered By: Marcelinou mn Shivam on 03-09-2024 Sodium [Moles/Vol] 134 mmol/L Low 136-145 [facility] Total proteinOrdered By: Marcelino umn Shivam on 03-09-2024 Protein [Mass/Vol] 5.9 g/dL Low 6.4-8.2 [facility] Urinalysis, Completeon 03-09 EPI,SQUAMOUS 0-5 SEEN Normal 0-5 [facility] Comment on above: Order Comment: CLEAN CATCH Performed By: #### L 100.0100, L501.2450, L500.4050 #### [facility] [address] [place], [address] RBC 5-10 SEEN Normal 0-5 [facility] Comment on above: Order Comment: CLEAN CATCH Performed By: #### L 100.0100, L501.2450, L500.4050 #### [facility] [address] [place], [address] WBC 10-25 SEEN Normal 0-5 [facility] Comment on above: Order Comment: CLEAN CATCH Performed By: #### L 100.0100, L501.2450, L500.4050 #### [facility] [address] [place], [address] BACTERIA 0 SEEN Normal None Seen [facility] Comment on above: Order Comment: CLEAN CATCH Performed By: #### L 100.0100, L501.2450, L500.4050 #### [facility] [address] [place], [address] Mucus Ql (Urine sed) 0 SEEN Normal [facility] Comment on above: Order Comment: CLEAN CATCH Performed By: #### L 100.0100, L501.2450, L500.4050 #### [facility] [address] [place], [address] Urine blood detectionOrdered By: Abdulaziz Lopes on 03-09-2024 Urine Occult Blood 50 /ul High Negative [facility] Urine clarityOrdered By: Steve Lopes on 03-09-2024 Clarity (U) Clear Clear [facility] Urine color determinationOrd ered By: Abdulaziz Lopes on 03-09-2024 Color (U) Yellow Yellow [facility] Urine cultureOrdered By: Steve Lopes on 03-09-2024 Bacteria identified Cx Nom (U) Corynebacterium amycolatum Abnormal [facility] Urine leukocyte esterase det ection by dipstickOrdered By: Abdulaziz Lopes on 03-09-2024 Leukocyte esterase Test strip Ql (U) 100 /ul High Negative [facility] Urine pHOrdered By: Abdulaziz alcantars on 03-09-2024 pH (U) 7.0 [pH] 5.0 - 8.0 [facility] Urine sediment bacteria coun t by microscopy (number/high power field)Ordered By: Abdulaziz Lopes on 03-09-2024 Bacteria LM.HPF (Urine sed) [#/Area] 0 /[HPF] None Seen [facility] Urine specific gravity measu rementOrdered By: Abdulaziz Lopes on 03-09-2024 Specific gravity (U) [Rel density] 1.005 1.002-1.030 [facility] Urobilinogen Ql (U)Ordered B y: Abdulaziz Lopes on 03-09-2024 Urine Urobilinogen Normal mg/dl Normal [facility] White blood cell (WBC) count Ordered By: Tiff Langley on 03-09-2024 WBC (Bld) [#/Vol] 9.4 10*3/uL 4.4-11.0 [facility] White blood cell countOrdere d By: Abdulaziz Lopes on 03-09-2024 Urine WBC 10-25 SEEN /hpf 0-5 [facility] Blood cultureOrdered By: Steve Lopes on 03-08-2024 Bacteria identified Cx Nom (Bld) No growth in 5 days. [facility] Influenza virus A and B and SARS-CoV-2 (COVID-19) and Respiratory syncytial virus RNAOrdered By: Abdulaziz Lopes on 03-08-2024 SARS-CoV-2 (COVID-19) RNA ALEXANDRA+probe Ql (Unsp spec) [facility] Prealbumin [id number] 4 Prealbumin [Mass/Vol] 17 mg/dL Normal 9-32 [facility] Comment on above: Result Comment: Perf ormed at: - [facility] [address] [id number] Principal Strategist: Mikey Juarez PhD, Phone: [phone] Performed By: #### L 100.0106, E533.8522, B447.9997 #### [facility] [address] [place], [address] Wound Ctr History AND Physic deborah 02-24-2024 Wound Ctr History & Physical [facility] [address] [place] [address] H P Exam - Wound Care 02/24/24 1151 MR#: [id number] Acct: [id number] Name: ELIESER VILLEGAS Rep #: [id number] : 1935 88 From: Chantale Mazariegos NP 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 PCP: Dr. Johnny Shelton, DO Status:REG RCR Location: History of Present Illness Date of Service: 02/24/24 Chief Complaint: Stage 2 pressure ulcer left buttock History of Wound: Elieser is a very pleasant 87 yo gentleman that presents to the wound healing center today for evaluation and treatment of a left buttock ulcer that has been present for many years and comes and goes. He has used many topical treatments including calmoseptine and Aquaphor to the area. He sits on a donut cushion when he is sitting on his couch which is where he spends the majority of his time during the day. He has lost approx. 40 lbs over the last several years which he attributes to some of the cause of the ulcer as he does not have as much subcutaneous tissue between his skin and his ischium. Looking at his labs his albumin's are low. He does eat well but does not like protein shakes or yogurt. He is currently drinking boost. He is otherwise healthy and does not have any chronic medical problems. He was referred here by a family . There has been no wound cultures done on the wound and he is currently not on any antibiotic treatment. He denies drainage but states the the area is painful unless it is covered with a bandage. [facility] Medical History Chronic cough Hx of fracture of hip History of renal disease Former smoker Vitamin D insufficiency Abnormal results of thyroid function studies Loss of hearing Wears glasses Wears partial dentures Cancer Alcohol use Arthritis Low iron Back pain Heartburn Shortness of breath on exertion History of edema History of SIADH Chronic bronchitis Hydronephrosis Former smoker Closed intertrochanteric fracture of left femur Kidney failure Prostate cancer Hyponatremia Prostatic cancer Allergy/AdvReac Type Severity Reaction Status Date / Time No Known Allergies Allergy Verified 02/24/24 08:25 Family History Other Heart disease Surgical History History of cystoscopy Hx of cystoscopy History of open reduction and internal fixation (ORIF) procedure History of open reduction and internal fixation (ORIF) procedure History of transurethral resection of prostate Status post appendectomy History of renal stent H/O hernia repair Social History household members: spouse and other details: 2 stry house. He sleeps downstairs in a recliner. 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 Tobacco: How many years used: 67 how long ago did patient quit smoking: He quit in 2019 alcohol intake: current alcohol intake frequency: holidays/special occasions only substance use type: does not use ROS Constitutional Constitutional: Reports systems reviewed and no addt'l complaints, except as documented Eyes Eyes: Reports systems reviewed and no addt'l complaints, except as documented ENT HEENT: Reports systems reviewed and no addt'l complaints, except as documented Cardiovascular Cardiovascular: Reports systems reviewed and no addt'l complaints, except as documented Respiratory/Chest Respiratory/Chest: Reports systems reviewed and no addt'l complaints, except as documented Gastrointestinal Gastrointestinal: Reports systems reviewed and no addt'l complaints, except as documented Genitourinary Genitourinary: Reports systems reviewed and no addt'l complaints, except as documented Musculoskeletal Musculoskeletal: Reports systems reviewed and no addt'l complaints, except as documented Integumentary Integumentary: Reports wounds and other Details: Rather large 4 x 4 open area with a depth of 0.2 on his left buttocks cheek with darkened erythema around it. Neurologic Neurologic: Reports systems reviewed and no addt'l complaints, except as documented Psychiatric Psychiatric: Reports systems reviewed and no addt'l complaints, except as documented Endocrine Endocrinology: Reports systems reviewed and no addt'l complaints, except as documented Hematologic/Lymphatic Hematologic/Lymphatic: Reports systems reviewed and no addt'l complaints, except as documented Allergic/Immunologic Allergic/Immunologic: Reports systems reviewed and no addt'l complaints, except as documented Vital Signs Vital Signs Vital Signs: 02/24/24 08:05 Temperature 97.4 F L Temperature Source Oral Pulse Rate 7 (more content not included)... Normal [facility] 12 Lead EKGon 02-10-2024 12 Lead EKG [facility] Cardiovascular Services [address] [place] [address] 12 Lead EKG 02/10/24 1013 MR#: [id number] Acct: [id number] Name: ELIESER VILLEGAS Rep #: [id number] : 1935 88 From: Quentin Rankin MD Attending Dr: Status: DEP ER Ordering Dr: Justin Aldrich DO Date: 02/10/24 Location: ED Sex: M C Admitted: Test Reason : ABD PAIN Blood Pressure : */* mmHG Vent. Rate : 68 BPM Atrial Rate : 68 BPM P-R Int : 140 ms QRS Dur : 82 ms QT Int : 386 ms P-R-T Axes : 78 72 72 degrees QTcB Int : 410 ms Normal sinus rhythm Possible Lateral infarct , age undetermined Abnormal ECG Confirmed by ADRIEL CRABTREE, AUGUSTO ([id number]), supervising editor news reel ALLISON ROSADO ([id number]) on 02/11/2024 1:47:41 PM Referred By: Confirmed By: AUGUSTO RANKIN MD 02/11/24 1091 Date Quentin Rankin MD CC: Dr. Johnny Shelton DO; Dr. Justin Aldrich DO Signed Normal [facility] CBC W/Diff, Automatedon 01-28 Absolute Lymph 0.68 X10 3/uL Low 0.83-4.51 [facility] Comment on above: Performed By: #### L 100.0100, L501.2450, L500.4050 #### [facility] [address] [place], [address] Absolute Neut 3.5 X10 3/uL Normal 2.0-7.7 [facility] Comment on above: Performed By: #### L 100.0100, L501.2450, L500.4050 #### [facility] [address] [place], [address] Basophils/100 WBC (Bld) 0.8 % Normal 0-1 [facility] Comment on above: Performed By: #### L 100.0100, L501.2450, L500.4050 #### [facility] [address] [place], [address] Eosinophils/100 WBC (Bld) 2.3 % Normal 0-5 [facility] Comment on above: Performed By: #### L 100.0100, L501.2450, L500.4050 #### [facility] [address] [place], [address] Erythrocyte distribution width (RBC) [Ratio] 13.0 % Normal 11.6-14.6 [facility] Comment on above: Performed By: #### L 100.0100, L501.2450, L500.4050 #### [facility] [address] [place], [address] Hematocrit (Bld) [Volume fraction] 39.2 % Low 40-54 [facility] Comment on above: Performed By: #### L 100.0100, L501.2450, L500.4050 #### [facility] [address] [place], [address] Hemoglobin (Bld) [Mass/Vol] 12.8 g/dL Low 13.0-16.5 [facility] Comment on above: Performed By: #### L 100.0100, L501.2450, L500.4050 #### [facility] [address] [place], [address] IG% 1.500 High 0.0-0.9 [facility] Comment on above: Result Comment: IG% - Immature Granulocytes (promyelocytes, myelocytes and metamyelocytes) > 1% indicates that a LEFT SHIFT is Present. Performed By: #### L 100.0100, L501.2450, L500.4050 #### [facility] [address] [place], [address] Lymphocytes/100 WBC (Bld) 14.2 % Low 19-41 [facility] Comment on above: Performed By: #### L 100.0100, L501.2450, L500.4050 #### [facility] [address] [place], [address] MCH (RBC) [Entitic mass] 31.2 pg Normal 27.0-32.0 [facility] Comment on above: Performed By: #### L 100.0100, L501.2450, L500.4050 #### [facility] [address] [place], [address] MCHC (RBC) [Mass/Vol] 32.7 g/dL Normal 32-36 [facility] Comment on above: Performed By: #### L 100.0100, L501.2450, L500.4050 #### [facility] [address] [place], [address] MCV (RBC) [Entitic vol] 95.6 fL High 80-94 [facility] Comment on above: Performed By: #### L 100.0100, L501.2450, L500.4050 #### [facility] [address] [place], [address] Monocytes/100 WBC (Bld) 7.5 % Normal 0-10 [facility] Comment on above: Performed By: #### L 100.0100, L501.2450, L500.4050 #### [facility] [address] [place], [address] Neutrophils/100 WBC (Bld) 73.7 % High 47-70 [facility] Comment on above: Performed By: #### L 100.0100, L501.2450, L500.4050 #### [facility] [address] [place], [address] Nucleated RBC (Bld) [#/Vol] 0 10*3/uL Normal 0-5 [facility] Comment on above: Performed By: #### L 100.0100, L501.2450, L500.4050 #### [facility] [address] [place], [address] Platelet mean volume (Bld) [Entitic vol] 8.8 fL Normal 6.2-12.0 [facility] Comment on above: Performed By: #### L 100.0100, L501.2450, L500.4050 #### [facility] [address] [place], [address] Platelets (Bld) [#/Vol] 233 10*3/uL Normal 150-450 [facility] Comment on above: Performed By: #### L 100.0100, L501.2450, L500.4050 #### [facility] [address] [place], [address] RBC (Bld) [#/Vol] 4.10 10*6/uL Low 4.6-6.2 [facility] Comment on above: Performed By: #### L 100.0100, L501.2450, L500.4050 #### [facility] [address] [place], [address] RDW SD 45.5 fl High 35.1-43.9 [facility] Comment on above: Performed By: #### L 100.0100, L501.2450, L500.4050 #### [facility] [address] [place], [address] WBC (Bld) [#/Vol] 4.8 10*3/uL Normal 4.4-11.0 [facility] Comment on above: Performed By: #### L 100.0100, L501.2450, L500.4050 #### [facility] [address] [place], [address] CTA Chst, Abd, Pel W and/or WOon 02-10-2024 CTA Chst, Abd, Pel W and/or WO [facility] Imaging Services [address] [address] CTA Chst, Abd, Pel W and/or WO MR#: [id number] Acct: [id number] Name: ELIESER VILLEGAS Polo Rep #: [id number] : 1935 M 88 From: Andres chatterjee MD PCP: Dr. Johnny Shelton, DO Status: REG ER Study: CTA Chst, Abd, Pel W and/or WO Date of Exam: 04/11/23 Exam# [id number] Ordering Dr: Justin Aldrich DO [id number] INDICATION: chest/abdomen pain EXAMINATION: CTA CHEST, ABDOMEN AND PELVIS WITH CONTRAST - TECHNIQUE: A CTA of the chest, abdomen, and pelvis is obtained with sagittal and coronal reconstructed MIP views. Three-dimensional surface rendered sequence of the thoracic and abdominal aorta was obtained. A radiation dose optimization technique was used for this scan. 100 mL of Isovue-370. Oral contrast: None. COMPARISON: Comparison is made with prior CT scan of the chest dated November 07, 2023. FINDINGS: CT CHEST: THORACIC AORTA: Atherosclerotic plaque formation of the aortic arch and descending thoracic aorta. ABDOMINAL AORTA: No aneurysm or dissection. No significant atheromatous disease. The iliac arteries are unremarkable. LUNGS: Stable irregular opacity in the medial segment of the right lower lobe with areas of bronchiectasis and scarring. Stable pulmonary nodules in the posterior medial segment of the left lower lobe. MEDIASTINUM: The thyroid gland is normal. No mediastinal or hilar adenopathy. HEART: Heart is normal size. No pericardial effusion. Corner artery calcification. CT ABDOMEN AND PELVIS: LIVER: The liver enhances homogeneously. No masses identified. GALLBLADDER: The CBD is normal. Small gallstones. SPLEEN: Normal. PANCREAS: No masses or inflammation. ADRENAL GLANDS: Normal. KIDNEYS AND URETERS: A right-sided double-J stent catheter is seen with the proximal tip in the renal pelvis and distal tip in the bladder. Prostatic enlargement with a metallic seeds within the prostate. Stable small bilateral renal cysts. STOMACH: Normal. SMALL BOWEL: No abnormal distention of the small bowel. MESENTERY: No mesenteric inflammation. No ascites. COLON: Diffuse sigmoid diverticulosis. The colon otherwise is normal. There is a large fatty ileocecal valve. IVC: Normal. RETROPERITONEUM: No retroperitoneal lymphadenopathy. PELVIC STRUCTURES: Normal bladder. Patient is status post appendectomy. SOFT TISSUES ABDOMEN: The anterior abdominal wall is normal. SOFT TISSUE CHEST: The extrathoracic soft tissues are normal. BONES: Degenerative changes of the lumbar spine as well as the symphysis pubis. Prior open reduction and internal fixation of the bilateral proximal femurs. Diffuse osteopenia of the visualized dorsal and lumbar vertebrae with multiple vertebrae with loss of height suggestive of compression fractures. CT/CTA Chst, Abd, Pel W and/or WO IMPRESSION: Stable bilateral pulmonary nodules as described with scarring and bronchiectasis. Stable right ureteral stent. Scattered atherosclerotic changes of the thoracic and abdominal aorta. Normal contrast-enhanced CT of the abdomen and pelvis. Electronically Signed: Andres Rojas MD at 11:40 EST , CC: Dr. Johnny Shelton DO; Dr. Justin Aldrich DO Case Management Associate: Signed Normal [facility] Comprehensive Metabolic Prof yon 02-10-2024 Albumin [Mass/Vol] 2.8 g/dL Low 3.2-5.0 [facility] Comment on above: Performed By: #### L 100.0100, L501.2450, L500.4050 #### [facility] [address] [place], [address] Albumin/Globulin [Mass ratio] 0.7 {ratio} Low 0.9-2.4 [facility] Comment on above: Performed By: #### L 100.0100, L501.2450, L500.4050 #### [facility] [address] [place], [address] ALK P 126 U/L High 45-117 [facility] Comment on above: Performed By: #### L 100.0100, L501.2450, L500.4050 #### [facility] [address] [place], [address] ALT [Catalytic activity/Vol] 16 U/L Normal 16-61 [facility] Comment on above: Performed By: #### L 100.0100, L501.2450, L500.4050 #### [facility] [address] [place], [address] AST [Catalytic activity/Vol] 17 U/L Normal 15-37 [facility] Comment on above: Performed By: #### L 100.0100, L501.2450, L500.4050 #### [facility] [address] [place], [address] Bilirubin [Mass/Vol] 0.30 mg/dL Normal 0.20-1.00 [facility] Comment on above: Result Comment: For patients on eltrombopag therapy, use of Dimension [place] TBIL is not recommended. Performed By: #### L 100.0100, L501.2450, L500.4050 #### [facility] [address] [place], [address] BUN/CRE 17.2 RATIO Normal 10-20 [facility] Comment on above: Performed By: #### L 100.0100, L501.2450, L500.4050 #### [facility] [address] [place], [address] CA,Total 8.6 mg/dL Normal 8.5-10.1 [facility] Comment on above: Performed By: #### L 100.0100, L501.2450, L500.4050 #### [facility] [address] [place], [address] Chloride [Moles/Vol] 103 mmol/L Normal 98-107 [facility] Comment on above: Performed By: #### L 100.0100, L501.2450, L500.4050 #### [facility] [address] [place], [address] CO2 [Moles/Vol] 28.0 mmol/L Normal 21.0-32.0 [facility] Comment on above: Performed By: #### L 100.0100, L501.2450, L500.4050 #### [facility] [address] [place], [address] Creatinine [Mass/Vol] 0.99 mg/dL Normal 0.70-1.30 [facility] Comment on above: Result Comment: The validity of the calculated GFR GFRAA in patients over 70 years has not been determined. Clinical correlation is essential. Performed By: #### L 100.0100, L501.2450, L500.4050 #### [facility] [address] [place], [address] EST GFR - AA 92 mL/min Normal >60 [facility] Comment on above: Result Comment: Afri can Gibraltarian GFR Calc Performed By: #### L 100.0100, L501.2450, L500.4050 #### [facility] [address] [place], [address] GAP 6 Normal 5-15 [facility] Comment on above: Performed By: #### L 100.0100, L501.2450, L500.4050 #### [facility] [address] [place], [address] GFR/1.73 sq M.predicted among non-blacks MDRD (S/P/Bld) [Vol rate/Area] 76 mL/min/{1.73_m2} Normal >60 [facility] Comment on above: Result Comment: Non- GFR Calc Performed By: #### L 100.0100, L501.2450, L500.4050 #### [facility] [address] [place], [address] Globulin (S) [Mass/Vol] 4.0 g/dL Normal 2.2-4.2 [facility] Comment on above: Performed By: #### L 100.0100, L501.2450, L500.4050 #### [facility] [address] [place], [address] Glucose [Mass/Vol] 93 mg/dL Normal 74-106 [facility] Comment on above: Performed By: #### L 100.0100, L501.2450, L500.4050 #### [facility] [address] [place], [address] Potassium [Moles/Vol] 3.7 mmol/L Normal 3.5-5.1 [facility] Comment on above: Performed By: #### L 100.0100, L501.2450, L500.4050 #### [facility] [address] [place], [address] Sodium [Moles/Vol] 137 mmol/L Normal 136-145 [facility] Comment on above: Performed By: #### L 100.0100, L501.2450, L500.4050 #### [facility] [address] [place], [address] T PROT 6.8 g/dL Normal 6.4-8.2 [facility] Comment on above: Performed By: #### L 100.0100, L501.2450, L500.4050 #### [facility] [address] [place], [address] Urea nitrogen [Mass/Vol] 17 mg/dL Normal 7-18 [facility] Comment on above: Performed By: #### L 100.0100, L501.2450, L500.4050 #### [facility] [address] [place], [address] Emergency Department Summary on 02-10-2024 Emergency Department Summary [facility] Medical Records Department [address] [place] [address] Emergency Department Summary 02/10/24 MR#: [id number] Acct: [id number] Name: ELIESER VILLEGAS Rep #: [id number] : 1935 88 From: Justin Aldrich DO PCP: Dr. Johnny Shelton DO Status:DEP ER Location: ED HPI History of Present Illness Chief Complaint: Chest Other Detail of Chief Complaint: Left side pain Informant: patient Narrative Narrative: Patient presents with complaint of pain underneath the left ribs that started 4 days ago. Pain worse with certain movements. Does not seem to be worse with breathing. Patient states he quit smoking 5 years ago[address] Patient sees Dr. Flynn of pulmonology and states that he has had 2 PET scans in the last 2 months. Initially was told the first PET scan had some abnormality on his we got a second scan but has not heard the results of the second scan back. Patient denies fevers or chills or sweats. He tells me is always a little bit short of breath. Also recently had a right ureteral stent placed by his urologist which he chronically has a stent to that side. Last stent was placed about a week ago. He denies urinary symptoms. [facility] Medical History Chronic cough Hx of fracture of hip History of renal disease Former smoker Vitamin D insufficiency Abnormal results of thyroid function studies Loss of hearing Wears glasses Wears partial dentures Cancer Alcohol use Arthritis Low iron Back pain Heartburn Shortness of breath on exertion History of edema History of SIADH Chronic bronchitis Hydronephrosis Former smoker Closed intertrochanteric fracture of left femur Kidney failure Prostate cancer Hyponatremia Prostatic cancer Home Medications ???Medication ???Instructions ???Recorded ???Last Taken ???Type oxycodone-acetaminophen 5 mg-325 1 tab PO Q6H PRN PRN Pain 3 days 01/31/24 Unknown Rx mg tablet #12 TABLETS ciprofloxacin HCl 500 mg tablet 500 mg PO BID #10 tabs 02/03/24 Unknown Rx (Cipro) hydrocodone-acetaminophe n 5-325mg 1 tab PO Q4H PRN PRN Pain 2 days 02/10/24 Unknown Rx 5mg-325mg #12 TABLETS Allergy/AdvReac Type Severity Reaction Status Date / Time No Known Allergies Allergy Verified 02/03/24 13:04 Family History Other Heart disease Surgical History History of cystoscopy Hx of cystoscopy History of open reduction and internal fixation (ORIF) procedure History of open reduction and internal fixation (ORIF) procedure History of transurethral resection of prostate Status post appendectomy History of renal stent H/O hernia repair Social History household members: spouse and other details: 2 st0ry house. He sleeps downstairs in a recliner. 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 Tobacco: How many years used: 67 how long ago did patient quit smoking: He quit in 2019 alcohol intake: current alcohol intake frequency: holidays/special occasions only substance use type: does not use ROS ROS ED Review of Systems ROS Unobtainable: other Constitutional Constitutional ED: Reports lethargy; Denies chills, fever(s), sweats or weight loss Eyes Eyes: Denies blurry vision, change in vision or diplopia ENT ENT ED: Denies rhinorrhea or sore throat Cardiovascular Cardiovascular: Reports chest pain; Denies orthopnea or racing heartbeat Respiratory/Chest Respiratory/Chest: Denies cough, dyspnea, dyspnea on exertion, orthopnea or sputum Gastrointestinal Gastrointestinal: Reports abdominal pain; Denies diarrhea, nausea or vomiting Genitourinary Genitourinary ED: Denies dysuria, hematuria or urinary frequency Musculoskeletal Musculoskeletal: Denies arthralgias, back pain, myalgias or neck pain Integumentary Denies abscess, Abrasions or rash Neurologic Neurologic: Denies headache(s) or weakness Psychiatric Psychiatric: Denies anxiety, depression or suicidal thoughts Endocrine Endocrinology: Denies polydipsia, polyphagia or polyuria Hematologic/Lymphatic Hematologic/Lymphatic: Denies easy bleeding, easy bruising or lymphadenopathy Allergic/Immunologic Allergic/Immunologic ED: Denies mouth swelling, tongue swelling or urticaria EXAM Physical Exam Const Vital Signs: 02/10/24 09:46 02/10/24 09:47 02/10/24 11:46 Temperature 97.7 F L Temperature Source Oral Pulse Rate 72 71 Respiratory Rate 16 18 Respiratory Effort Normal Blood Pressure 128/51 H 118/68 Blood Pressure Mean 76 84 Pulse Ox 99 Oxygen Delivery Method (more content not included)... Normal [facility] Lipaseon 02-10-2024 Lipase [Catalytic activity/Vol] 20 U/L Normal 13-75 [facility] Comment on above: Result Comment: Awilda renteria note: LIPASE revised reference range effective 22. New Lipase methodology. Expected to produce lower values than the previous assay method. NEW Reference Range: 13 - 75 U/L Performed By: #### L 100.0100, L501.2450, L500.4050 #### [facility] [address] [place], [place], [address] Urinalysis, Completeon 02-09 RBC 5-10 SEEN Normal 0-5 [facility] Comment on above: Order Comment: COLLE CTOR TO SPECIFY Performed By: #### L 400.0001 #### [facility] [address] [place], [address] WBC 5-10 SEEN Normal 0-5 [facility] Comment on above: Order Comment: COLLE CTOR TO SPECIFY Performed By: #### L 400.0001 #### [facility] [address] [place], [address] BACTERIA 0 SEEN Normal None Seen [facility] Comment on above: Order Comment: PIETRO CTOR TO SPECIFY Performed By: #### L 400.0001 #### [facility] [address] [place], [address] EPI,SQUAMOUS 0 SEEN Normal 0-5 [facility] Comment on above: Order Comment: COLLE CTOR TO SPECIFY Performed By: #### L 400.0001 #### [facility] [address] [place], [address] Mucus Ql (Urine sed) 0 SEEN Normal [facility] Comment on above: Order Comment: COLLE CTOR TO SPECIFY Performed By: #### L 400.0001 #### [facility] [address] [place] [place], [address] Discharge Instructionon 11-0 Discharge Instruction [facility] Medical Records Department [address] [place] [address] Instructions for Home/Discharge Instructions 02/03/24 1633 MR#: [id number] Acct: [id number] Name: ELIESER VILLEGAS Rep #: [id number] : 1935 88 From: Gildardo Hollingsworth MD PCP: Dr. Johnny Shelton, DO Status[place] [facility] [place]charge Instructions Diet Discharge Diet: No restrictions Activity Discharge Activity: Return to Normal Activity and May Not Drive (while taking narcotic pain medications.) Dressing / Incision Call your doctor if you observe: Fever of 101 or Higher Follow Up Care Please Follow Up With: Gildardo Hollingsworth MD When: Call [phone] for an appointment Test Results: Test results from this visit will be discussed in further detail at your follow-up appointment, if applicable. Discharge Plan Admission Primary Reason for Your Visit: stent change Attending Provider: Gildardo Hollingsworth Primary Care Provider: Johnny Shelton Instructions Print Language: Faroese Discharge Orders/Prescriptions Prescriptions: New ciprofloxacin HCl [Cipro] 500 mg tablet 500 mg PO BID Qty: 10 0RF No Action oxycodone-acetaminophen 5-325 mg tablet 1 tab PO Q6H PRN PRN (Reason: Pain) 3 Days Qty: 12 0RF Referrals / Follow Up: Gildardo Hollingsworth MD [Med Staff - Active Staff] - Johnny Shelton DO [Primary Care Provider] - Disposition Disposition (needs filled in before D/C Order can be placed): Home, Self Care 02/03/24 1633 Gildardo Hollingsworth MD CC: Dr. Johnny Shelton DO Signed [facility] MR/POSTOP.[facility] 02-03-2024 MR/POSTOP.[facility] Medical Records Department [address] [place] [address] Anesthesia Postop Eval I 02/03/24 1640 MR#: [id number] Acct: [id number] Name: ELIESER VILLEGAS Rep #: [id number] : 1935 88 From: Jaden Aquino CRNA PCP: Dr. Johnny Shelton DO Status:REG SDC Y Race: C Location: [place] [address] Anesthesia: Postop Eval I Current Vital Signs Temperature: 98.2 F Pulse Rate: 89 Blood Pressure: 98/52 Respiratory Rate: 16 Pulse Ox: 94 Oxygen Delivery Method: Room Air Assessment Airway patent: Yes Spontaneous unlabored respirations: Yes Mental status: Awake and Calm nausea: No Vomiting: No Anesthesia Complication: No Fluid Hydration Crystalloid volume administer (ml): 1,000 Total IV fluid infused: 1,000 Progress Note Anesthesia document: Postop Eval 1 completed: Yes 02/03/24 1641 Date Jaden Aquino [employer] Cosigner Signature: Date CC: Signed Normal [facility] MR/[id number] 02-03-2024 MR/POSTOPAN2 [facility] Medical Records Department [address] [place] [address] Anesthesia Postop Eval II 02/03/241650 MR#: [id number] Acct: [id number] Name: ELIESER VILLEGAS Rep #: [id number] : 1935 88 From: Kamar Jones MD PCP: Dr. Johnny Shelton, DO Status:REG SDC Y Race: C Location: [address] Anesthesia Postop Eval I Sum Postop Eval Completion status Anesthesia document: Postop Eval 1 completed: Yes Anesthesia Postop Eval I Summary Anesthesia Postop Eval I Summary: Anesthesia Postop Eval I: Assessment Summary Airway patent Yes 02/03/24 16:41 [employer].JBLOU Spontaneous unlabored Yes 02/03/24 16:41 [employer].JBLOU respirations Mental status Awake,Calm 02/03/24 16:41 [employer].JBLOU nausea No 02/03/24 16:41 [employer].JBLOU Vomiting No 02/03/24 16:41 [employer].JBLOU Anesthesia Postop Eval I: Fluid Summary Crystalloid volume administer 1,000 02/03/24 16:41 [employer].JBLOU (ml) Colloids volume administered ( ml) Blood Product volume administered (ml) Total IV fluid infused 1,000 02/03/24 16:41 [employer].JBLOU Anesthesia Postop Eval I: Summary Notes Anesthesia Complication No 02/03/24 16:41 [employer].JBLOU Anesthesia Complication Comment: Post-operative progress note Anesthesia: Postop Eval II Evaluation Mental status: Awake and Calm Pain Level: 1 nausea: No Vomiting: No Complications Anesthesia Complication: No 02/03/241651 Kamar Jones MD Cosigner Signature: Date CC: Signed Normal [facility] Operative Reporton 4 Operative Report [facility] Medical Records Department [address] [place] [address] Operative Report 02/03/24 1634 MR#: [id number] Acct: [id number] Name: ELIESER VILLEGAS Rep #: [id number] : 1935 88 From: Gildardo Hollingsworth MD PCP: Dr. Johnny Shelton DO Status:[facility] Location: [place] [address] Operative Report (Standard) Operative Information Surgery/Procedure Performed: Cystoscopy and right stent change Surgeon: Gildardo Hollingsworth Date of Procedure: 02/03/24 Procedure Start Time: 16:08 Procedure Stop Time: 16:35 Pre-Operative Diagnosis: Chronic obstruction of the right kidney Post-Operative Diagnosis: Same Select all DRAINS/GRAFTS/IMPLANTS that apply: Drains Drain details: 6 Italian by 26 cm stent right side Type of Anesthesia: MAC and Topical Anesth Estimated Blood Loss: None Specimen collected: No Description of surgery: 88-year-old male was taken back to the operating room at this with induction of anesthesia he was placed in dorsolithotomy position. The penis stones were prepped and draped in usual sterile fashion within the bladder with a 21 Italian rigid cystourethroscope grabbed the existing stent pulled out the meatus went back into the bladder I cannulated the right ureter orifice went a wire all the way to the right kidney and then over the wire I placed a new stent it was a 6 Italian by 26 cm stent I pulled the wire stent coil in the kidney bladder good position I then drained the bladder I then placed a Vargas catheter into the bladder per the patient's request and he will go home with a catheter and follow-up next week in the office to have the catheter removed. 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 Gildardo Hollingsworth MD; Dr. Johnny Shelton DO Signed Normal [facility] [facility] Abdomen/Pelvis W IV Cont ONL Yon 01-31-2024 Abdomen/Pelvis W IV Cont ONLY [facility] Imaging Services [address] [place], [place] [address] Abdomen/Pelvis W IV Cont ONLY MR#: [id number] Acct: [id number] Name: ELIESER VILLEGAS Rep #: [id number] : 1935 M 88 From: Akash hdz DO PCP: Dr. Johnny Shelton, Status: REG ER Study: Abdomen/Pelvis W IV Cont ONLY Date of Exam: Exam# [id number] Ordering Dr: Heriberto Gomez DO [id number] EXAM: CT ABDOMEN AND PELVIS WITH INTRAVENOUS CONTRAST CLINICAL INDICATION: Chronic R ureteral stent Back pain R and gt;L TECHNIQUE: Helically acquired images were obtained of the abdomen and pelvis with intravenous contrast. This CT exam was performed using one or more of the following dose reduction techniques: automated exposure control, adjustment of the mA and/or kV according to patient size, and/or use of iterative reconstruction technique. CONTRAST: IV 100mL Isovue-370 COMPARISON: PET/CT, 12/15/2023; CT chest, 09/05/2021. FINDINGS: LOWER THORAX: Coronary artery calcifications and/or stents. Bilateral lower lobe consolidative airspace disease, likely pneumonia. Superimposed centrilobular emphysema. No cardiomegaly. No significant pericardial effusion. ABDOMEN: LIVER: No significant abnormality. Homogeneous. No focal mass. GALLBLADDER AND BILE DUCTS: No significant abnormality. No calcified gallstones. No gallbladder distention or wall edema. No intra- or extrahepatic biliary ductal dilation. PANCREAS: No significant abnormality. No focal cystic or solid mass. SPLEEN: No significant abnormality. Normal size without focal cystic or solid mass. ADRENALS: No significant abnormality. No nodules. KIDNEYS AND URETERS: Right-sided hydroureteronephrosis with right-sided ureteral stent appearing well positioned. On delayed imaging, no contrast is present within the right ureter. Left renal cysts are present for which no follow-up is indicated. Normal renal size and position. STOMACH AND BOWEL: Moderate amount of colorectal stool retention. No stomach or bowel distention. No focal inflammatory change. PELVIS: APPENDIX: No evidence of acute appendicitis. BLADDER: No significant abnormality. REPRODUCTIVE: Normal as visualized. No mass. ABDOMEN and PELVIS: INTRAPERITONEAL SPACE: No significant abnormality. No ascites or other fluid collection. No free air. BONES/JOINTS: Intramedullary fixation of the bilateral femora. Likely sacral decubitus ulcer which can be correlated on examination. Chronic appearing fracture of the right pubic bone. Degenerative changes in the spine. Multiple lumbar compression fractures and lower thoracic compression fractures appear chronic some which correlate with the prior CT chest. No suspicious lytic or blastic abnormality. SOFT TISSUES: No significant abnormality. No discrete abdominal or pelvic wall hernia. VASCULATURE: Atherosclerosis of the aorta and its branch vessels. LYMPH NODES: No significant abnormality. No enlarged lymph nodes. CT/Abdomen/Pelvis W IV Cont ONLY IMPRESSION: 1. Right-sided hydroureteronephrosis with right-sided ureteral stent appearing well positioned. On delayed imaging, no contrast is present within the right ureter. 2. Bilateral lower lobe consolidative airspace disease, likely pneumonia. Superimposed centrilobular emphysema. 3. Likely sacral decubitus ulcer which can be correlated on examination. 4. Moderate amount of colorectal stool retention. No evidence of bowel obstruction. 5. Multiple lumbar compression fractures and lower thoracic compression fractures appear chronic some which correlate with the prior CT chest. Electronically Signed: Akash Mendoza DO at 9:27 EST , CC: Dr. Heriberto Gomez DO; Dr. Johnny Shelton, Case Management Associate: Signed Normal [facility] Basic Metabolic Profile (BMP )on 01-31-2024 BUN/CRE 16.5 RATIO Normal 10-20 [facility] Comment on above: Performed By: #### L 100.0100, L501.2450, L500.4050 #### [facility] [address] [place], [address] CA,Total 8.7 mg/dL Normal 8.5-10.1 [facility] Comment on above: Performed By: #### L 100.0100, L501.2450, L500.4050 #### [facility] [address] [place], [address] Chloride [Moles/Vol] 108 mmol/L High 98-107 [facility] Comment on above: Performed By: #### L 100.0100, L501.2450, L500.4050 #### [facility] [address] [place], [address] CO2 [Moles/Vol] 28.0 mmol/L Normal 21.0-32.0 [facility] Comment on above: Performed By: #### L 100.0100, L501.2450, L500.4050 #### [facility] [address] [place], [address] Creatinine [Mass/Vol] 1.15 mg/dL Normal 0.70-1.30 [facility] Comment on above: Result Comment: The validity of the calculated GFR GFRAA in patients over 70 years has not been determined. Clinical correlation is essential. Performed By: #### L 100.0100, L501.2450, L500.4050 #### [facility] [address] [place], [address] ECRCL 34.47 ml/min Normal [facility] Comment on above: Performed By: #### L 100.0100, L501.2450, L500.4050 #### [facility] [address] [place], [address] EST GFR - AA 77 mL/min Normal >60 [facility] Comment on above: Result Comment: Afri can Gibraltarian GFR Calc Performed By: #### L 100.0100, L501.2450, L500.4050 #### [facility] [address] [place], [address] GAP 6 Normal 5-15 [facility] Comment on above: Performed By: #### L 100.0100, L501.2450, L500.4050 #### [facility] [address] [place], [address] GFR/1.73 sq M.predicted among non-blacks MDRD (S/P/Bld) [Vol rate/Area] 64 mL/min/{1.73_m2} Normal >60 [facility] Comment on above: Result Comment: Non- GFR Calc Performed By: #### L 100.0100, L501.2450, L500.4050 #### [facility] [address] [place], [address] Glucose [Mass/Vol] 99 mg/dL Normal 74-106 [facility] Comment on above: Performed By: #### L 100.0100, L501.2450, L500.4050 #### [facility] [address] [place], [address] Potassium [Moles/Vol] 4.2 mmol/L Normal 3.5-5.1 [facility] Comment on above: Performed By: #### L 100.0100, L501.2450, L500.4050 #### [facility] [address] [place], [address] Sodium [Moles/Vol] 142 mmol/L Normal 136-145 [facility] Comment on above: Performed By: #### L 100.0100, L501.2450, L500.4050 #### [facility] [address] [place], [address] Urea nitrogen [Mass/Vol] 19 mg/dL High 7-18 [facility] Comment on above: Performed By: #### L 100.0100, L501.2450, L500.4050 #### [facility] [address] [place], [address] CBC W/Diff, Automatedon 11-0 -2023 Absolute Lymph 0.65 X10 3/uL Low 0.83-4.51 [facility] Comment on above: Performed By: #### L 100.0100, L501.2450, L500.4050 #### [facility] [address] [place], [address] Absolute Neut 2.4 X10 3/uL Normal 2.0-7.7 [facility] Comment on above: Performed By: #### L 100.0100, L501.2450, L500.4050 #### [facility] [address] [place], [address] Basophils/100 WBC (Bld) 0.6 % Normal 0-1 [facility] Comment on above: Performed By: #### L 100.0100, L501.2450, L500.4050 #### [facility] [address] [place], [address] Eosinophils/100 WBC (Bld) 2.9 % Normal 0-5 [facility] Comment on above: Performed By: #### L 100.0100, L501.2450, L500.4050 #### [facility] [address] [place], [address] Erythrocyte distribution width (RBC) [Ratio] 13.2 % Normal 11.6-14.6 [facility] Comment on above: Performed By: #### L 100.0100, L501.2450, L500.4050 #### [facility] [address] [place], [address] Hematocrit (Bld) [Volume fraction] 40.6 % Normal 40-54 [facility] Comment on above: Performed By: #### L 100.0100, L501.2450, L500.4050 #### [facility] [address] [place], [address] Hemoglobin (Bld) [Mass/Vol] 13.2 g/dL Normal 13.0-16.5 [facility] Comment on above: Performed By: #### L 100.0100, L501.2450, L500.4050 #### [facility] [address] [place], [address] IG% 0.900 Normal 0.0-0.9 [facility] Comment on above: Result Comment: IG% - Immature Granulocytes (promyelocytes, myelocytes and metamyelocytes) > 1% indicates that a LEFT SHIFT is Present. Performed By: #### L 100.0100, L501.2450, L500.4050 #### [facility] [address] [place], [address] Lymphocytes/100 WBC (Bld) 18.7 % Low 19-41 [facility] Comment on above: Performed By: #### L 100.0100, L501.2450, L500.4050 #### [facility] [address] [place], [address] MCH (RBC) [Entitic mass] 31.0 pg Normal 27.0-32.0 [facility] Comment on above: Performed By: #### L 100.0100, L501.2450, L500.4050 #### [facility] [address] [place], [address] MCHC (RBC) [Mass/Vol] 32.5 g/dL Normal 32-36 [facility] Comment on above: Performed By: #### L 100.0100, L501.2450, L500.4050 #### [facility] [address] [place], [address] MCV (RBC) [Entitic vol] 95.3 fL High 80-94 [facility] Comment on above: Performed By: #### L 100.0100, L501.2450, L500.4050 #### [facility] [address] [place], [address] Monocytes/100 WBC (Bld) 8.9 % Normal 0-10 [facility] Comment on above: Performed By: #### L 100.0100, L501.2450, L500.4050 #### [facility] [address] [place], [address] Neutrophils/100 WBC (Bld) 68.0 % Normal 47-70 [facility] Comment on above: Performed By: #### L 100.0100, L501.2450, L500.4050 #### [facility] [address] [place], [address] Nucleated RBC (Bld) [#/Vol] 0 10*3/uL Normal 0-5 [facility] Comment on above: Performed By: #### L 100.0100, L501.2450, L500.4050 #### [facility] [address] [place], [address] Platelet mean volume (Bld) [Entitic vol] 9.4 fL Normal 6.2-12.0 [facility] Comment on above: Performed By: #### L 100.0100, L501.2450, L500.4050 #### [facility] [address] [place], [address] Platelets (Bld) [#/Vol] 178 10*3/uL Normal 150-450 [facility] Comment on above: Performed By: #### L 100.0100, L501.2450, L500.4050 #### [facility] [address] [place], [address] RBC (Bld) [#/Vol] 4.26 10*6/uL Low 4.6-6.2 [facility] Comment on above: Performed By: #### L 100.0100, L501.2450, L500.4050 #### [facility] [address] [place], [address] RDW SD 46.2 fl High 35.1-43.9 [facility] Comment on above: Performed By: #### L 100.0100, L501.2450, L500.4050 #### [facility] [address] [place], [address] WBC (Bld) [#/Vol] 3.5 10*3/uL Low 4.4-11.0 [facility] Comment on above: Performed By: #### L 100.0100, L501.2450, L500.4050 #### [facility] [address] [place], [address] Emergency Department Summary on 01-31-2024 Emergency Department Summary [facility] Medical Records Department [address] [place] [place] [address] Emergency Department Summary 01/31/24 MR#: [id number] Acct: [id number] Name: NELLYELISEER Polo Rep #: [id number] : 1935 88 From: Heriberto Gomez DO PCP: Dr. Johnny Shelton DO Status:DEP ER Location: ED HPI History of Present Illness Chief Complaint: Complaint Informant: patient Narrative Narrative: 88-year-old male presenting to the emergency room with back pain. Patient states that yesterday afternoon into the evening he developed pain on the right back that is now across both sides of the mid back. States it is worse with movement. He states he has had this before when he has had a problem with his chronic right renal stent. He does not know why he has a renal stent. 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 He follows with Dr. Hollingsworth. He states he has not had anything to eat for 12 hours because he typically does not drink anything in the evening and nighttime because of frequent nocturnal urination. He denies any fevers. Denies any trauma. He denies any abdominal pain. He states when this has happened in the past he has had to have his stent replaced. [facility] Medical History History of renal disease Former smoker Vitamin D insufficiency Abnormal results of thyroid function studies Loss of hearing Wears glasses Wears partial dentures Cancer Alcohol use Arthritis Low iron Back pain Heartburn Shortness of breath on exertion History of edema History of SIADH Chronic bronchitis Hydronephrosis Cholelithiasis Former smoker Closed intertrochanteric fracture of left femur Kidney failure Prostate cancer Hyponatremia Prostatic cancer Home Medications ???Medication ???Instructions ???Recorded ???Last Taken ???Type oxycodone-acetaminophen 5 mg-325 1 tab PO Q6H PRN PRN Pain 3 days 01/31/24 Unknown Rx mg tablet #12 TABLETS Allergy/AdvReac Type Severity Reaction Status Date / Time No Known Allergies Allergy Verified 01/31/24 07:34 Family History Other Heart disease Surgical History History of cystoscopy Hx of cystoscopy History of open reduction and internal fixation (ORIF) procedure History of open reduction and internal fixation (ORIF) procedure History of transurethral resection of prostate Status post appendectomy History of renal stent H/O hernia repair Social History household members: spouse and other details: 2 st0ry house. He sleeps downstairs in a recliner. 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 Tobacco: How many years used: 67 how long ago did patient quit smoking: He quit in 2019 alcohol intake: current alcohol intake frequency: holidays/special occasions only substance use type: does not use ROS ROS ED Constitutional Constitutional ED: Denies chills, fever(s) or weight loss Eyes Eyes: Denies change in vision or diplopia ENT ENT ED: Denies ear pain, rhinorrhea or sore throat Cardiovascular Cardiovascular: Denies chest pain, orthopnea, palpitations or racing heartbeat Respiratory/Chest Respiratory/Chest: Denies cough, dyspnea or orthopnea Gastrointestinal Gastrointestinal: Denies abdominal pain, diarrhea, nausea or vomiting Genitourinary Genitourinary ED: Denies dysuria, hematuria or urinary frequency Musculoskeletal Musculoskeletal: Reports back pain; Denies arthralgias or myalgias Integumentary Denies abscess or rash Neurologic Neurologic: Denies headache(s) or weakness Psychiatric Psychiatric: Denies anxiety, depression, suicidal ideation or suicidal thoughts Endocrine Endocrinology: Denies polydipsia, polyphagia or polyuria Allergic/Immunologic Allergic/Immunologic ED: Denies mouth swelling, tongue swelling or urticaria EXAM Physical Exam Const Vital Signs: 01/31/24 07:34 01/31/24 09:49 Temperature 97.9 F Temperature Source Oral Pulse Rate 82 75 Respiratory Rate 16 16 Blood Pressure 132/78 H 161/83 H Blood Pressure Mean 96 109 Pulse Ox 97 95 Oxygen Delivery Method Room Air Room Air Positive well nourished and well developed General Appearance ED: well developed and NAD HEENT Reports normocephalic, head/scalp atraumatic and moist mucous membranes Eyes PERRL and EOMs intact bilaterally Neck no lymphadenopathy, supple and no JVD Resp normal respiratory effort and clear to auscultation bilaterally Cardio regular rate, regular rhy (more content not included)... Normal [facility] Lipaseon 01-31-2024 Lipase [Catalytic activity/Vol] 19 U/L Normal 13-75 [facility] Comment on above: Result Comment: Awilda renteria note: LIPASE revised reference range effective 22. New Lipase methodology. Expected to produce lower values than the previous assay method. NEW Reference Range: 13 - 75 U/L Performed By: #### L 100.0100, L501.2450, L500.4050 #### [facility] [address] [place], [address] Liver Profileon 01-31-2024 Albumin [Mass/Vol] 3.0 g/dL Low 3.2-5.0 [facility] Comment on above: Performed By: #### L 100.0100, L501.2450, L500.4050 #### [facility] [address] [place], [address] ALK P 130 U/L High 45-117 [facility] Comment on above: Performed By: #### L 100.0100, L501.2450, L500.4050 #### [facility] [address] [place], [address] ALT [Catalytic activity/Vol] 13 U/L Low 16-61 [facility] Comment on above: Performed By: #### L 100.0100, L501.2450, L500.4050 #### [facility] [address] [place], [address] AST [Catalytic activity/Vol] 17 U/L Normal 15-37 [facility] Comment on above: Performed By: #### L 100.0100, L501.2450, L500.4050 #### [facility] [address] [place], [address] Bilirubin [Mass/Vol] 0.40 mg/dL Normal 0.20-1.00 [facility] Comment on above: Result Comment: For patients on eltrombopag therapy, use of Dimension [place] TBIL is not recommended. Performed By: #### L 100.0100, L501.2450, L500.4050 #### [facility] [address] [place], [address] Bilirubin.direct [Mass/Vol] 0.14 mg/dL Normal 0.00-0.30 [facility] Comment on above: Performed By: #### L 100.0100, L501.2450, L500.4050 #### [facility] [address] [place], [address] Globulin (S) [Mass/Vol] 3.5 g/dL Normal 2.2-4.2 [facility] Comment on above: Performed By: #### L 100.0100, L501.2450, L500.4050 #### [facility] [address] [place], [address] T PROT 6.5 g/dL Normal 6.4-8.2 [facility] Comment on above: Performed By: #### L 100.0100, L501.2450, L500.4050 #### [facility] [address] [place], [address] Urinalysis, Completeon 01-30 WBC 0-5 SEEN Normal 0-5 [facility] Comment on above: Order Comment: CLEAN CATCH Performed By: #### L 400.0001 ####[facility] [address] [place], [address] BACTERIA 0 SEEN Normal None Seen [facility] Comment on above: Order Comment: CLEAN CATCH Performed By: #### L 400.0001 ####[facility] [address] [place], [address] EPI,SQUAMOUS 0 SEEN Normal 0-5 [facility] Comment on above: Order Comment: CLEAN CATCH Performed By: #### L 400.0001 ####[facility] [address] [place], [address] Mucus Ql (Urine sed) 0 SEEN Normal [facility] Comment on above: Order Comment: CLEAN CATCH Performed By: #### L 400.0001 ####[facility] [address] [place], [address] RBC 0 SEEN Normal 0-5 [facility] Comment on above: Order Comment: CLEAN CATCH Performed By: #### L 400.0001 ####[facility] [address] [place], [address] PET/CT Tumor Base -Thigh Ini ton 12-15-2023 PET/CT Tumor Base -Thigh Init [facility] Imaging Services [address] [place] [address] PET/CT Tumor Base -Thigh Init MR#: [id number] Acct: [id number] Name: ELIESER VILLEGAS Rep #: [id number] : 1935 M 88 From: Bigg Garland PCP: Dr. Johnny Shelton, DO Status: REG CLI Study: PET/CT Tumor Base -Thigh Init Date of Exam: Exam# [id number] Ordering Dr: Gabriel Guerrero MD [id number] EXAMINATION: FDG-PET/CT ? INDICATIONS: 88-year-old male with a history of pulmonary nodularity. ? COMPARISON EXAMINATION: FDG-PET CT study dated 09/01/2023. ? INDEX LESION SIZE SUV INTERPRETATION PERSISTENT Right lower lung, right thoracic perihilum ? 2.2 compared to 2.7 Quantitative criteria for viable neoplasm are not fulfilled ? PERSISTENT Left lower lung field ? 0.8 compared to 1.2 Quantitative criteria for viable neoplasm are not fulfilled ? TECHNIQUE: Following the intravenous administration of 13.67 mCi of F-18 deoxyglucose via the right antecubital fossa, multiplanar image acquisitions of the head, neck, chest, abdomen and pelvis to the level of the midthigh, obtained at one-hour post radiopharmaceutical administration contemporaneously interpreted with the current CT of the chest, abdomen and pelvis dated 12/15/2023 and prior FDG-PET CT study dated 09/01/2023 via coregistration reveal: ? SERUM GLUCOSE LEVEL:? 91 mg/dL? HEIGHT:?? 70 inches WEIGHT:?? 119 pounds ? FINDINGS: ? HEAD/NECK:? There is no evidence of abnormal increased glucose metabolism in the pharyngeal mucosal space, parapharyngeal space, oropharynx, bilateral-lateral and anterior neck, hypopharynx and distribution of the larynx. ? The visualized portion of the cerebral cortical-subcortical structures demonstrate symmetric and preserved glucose metabolism. ? CHEST:? Persistent increased tracer uptake is noted in the right lower posteromedial lung zone, right lower lobe and right thoracic perihilum. The current calculated standard uptake value is 2.2 compared to 2.7. Persistent nodular increased uptake is barely discernable in the left lower lung field, left lower lobe with a current calculated standard uptake value of 0.8 compared to 1.2. ? CT of the chest demonstrates the following anatomic characteristics: On review of CT of the chest, there is no definitive interval change compared to the study dated 09/01/2023. ? ABDOMEN/PELVIS:? Normal physiologic distribution of the radiopharmaceutical is identified in the hepatic (2.9/2.9) and splenic parenchyma, both renal units, urinary bladder, and visualized intestinal tract. Diffuse intestinal tract is identified in all four quadrants of the abdominal-pelvic mesentery. ? CT of the abdomen and pelvis is remarkable for the following: On review of CT of the abdomen/pelvis there is no definitive interval change compared to the study dated 09/01/2023. ? SKELETAL:? There is no evidence of quantitatively significant enhanced glucose metabolism on meticulous inspection of the appendicular and axial skeletal structures. ? Degenerative changes defined in the thoracic and lumbar spine demonstrate no evidence of increased glucose metabolism. There are no sclerotic, mixed sclerotic-lytic, or primarily lytic changes defined in the axial skeletal structures with evidence of increased FDG uptake. ? PET/PET/CT Tumor Base -Thigh Init IMPRESSION: 1. NEGATIVE EXAMINATION. There is no definitive quantitative significance of viable neoplasm. 2. Enhanced radiotracer defined in the right and left thorax pulmonary parenchyma does not fulfill quantitative criteria for viable neoplasm. Metabolic-morphologic stability may be ensured in the bilateral hemithorax with repeat FDG PET CT imaging in 3-6 months if clinically indicated. 2. Overall, compared to the prior FDG-PET CT study dated 09/01/2023, there is current absence of defined viable neoplastic disease. Electronic Signature Bigg Yan D.O. Accurate Quantification of SUVs for this report are calculated using the exclusive [employer]. ([place].S. Patent No. 10, [phone] 983 B2 [phone] [place] patent [id number] [id number] [id number]). Standardization and correction of the FDG SUV metric via [employer] technology allow for vendor non-specific objective quantitative examination comparison and optimization of the sensitivity and specificity of the FDG PET-CT examination. [email or web address] Electronically Signed: Bigg Yan DO at 22:26 EDT , CC: Dr. Johnny Shelton DO; Dr. Gabriel Guerrero MD Case Management Associate: Signed Normal [facility] Chest without Contraston Chest without Contrast [facility] Imaging Services [address] [place], [place] [address] Chest without Contrast MR#: [id number] Acct: [id number] Name: ELIESER VILLEGAS Rep #: [id number] : 1935 M 88 From: Selena Cuellar PCP: Dr. Johnny Shelton, DO Status: REG CLI Study: Chest without Contrast Date of Exam: 11/07/23 Exam# [id number] Ordering Dr: Gabriel Guerrero MD [id number] INDICATION: COPD, PULMONARY NODULE EXAMINATION: CT CHEST WITHOUT CONTRAST - CT Chest W/O Contrast Injection TECHNIQUE: Helically acquired images were obtained of the chest. The protocol utilizes one or more of the following dose reduction techniques: automated exposure control, adjustment of mA and/or kV according to patient size,and/or use of iterative reconstruction technique. IV Contrast dosage and agent: None. RADIATION DOSAGE (If Supplied By Facility): CTDIvol = ( 10.07 ) mGy, DLP = ( 372.28 ) mGycm COMPARISON: CT chest 07/27/2023 FINDINGS: LUNGS: Emphysematous changes. Nodules: Left lower lobe, 2.0 cm nodule, axial image #85, unchanged. Left lower lobe, 1.9 cm oval-shaped nodule, axial image 98, unchanged. Left lower lobe, 2.0 x 1.4 cm with spiculated margins, axial image #101, is new. Focal opacity in the right lower lobe with adjacent pleural thickening is not significantly changed. Small 0.5 cm subpleural nodule right lower lobe unchanged. No consolidation. LARGE AIRWAYS: Unremarkable. PLEURA: No pleural effusion. No pneumothorax. MEDIASTINUM: Unremarkable. HEART: Not enlarged. CORONARY ARTERIES: Coronary artery calcification is seen. AORTA/VESSELS: No aortic aneurysm. ESOPHAGUS: Unremarkable. UPPER ABDOMEN: Right ureteral stent unchanged with right hydronephrosis increased compared to prior. Multiple gallstones in the gallbladder BONES/SOFT TISSUES: No acute abnormality. OTHER/LINES: None.. CT/Chest without Contrast IMPRESSION: New 2 cm nodule left lower lobe. Other nodules left lower lobe unchanged. Right lower lobe focal opacity with adjacent pleural thickening unchanged. Reevaluation with PET CT may be helpful. Right ureteral stent with increased right hydronephrosis compared to prior. Electronically Signed: Selena Maloney MD at 8:14 EDT , CC: Dr. Johnny Shelton DO; Dr. Gabriel Guerrero MD Case Management Associate: Signed Normal [facility] Basophil percentageOrdered B y: Gildardo Hollingsworth on 06-30-2023 Basophil percentage 0.25 ng/mL 0.0-4.0 [facility] Comment on above: This test was perfor med using the TPSA assay method for [employer] chemistry system. Values obtained with differentassay methods cannot be used interchangably.When changing PSA assays in the course of monitoring apatient, additional sequential testing should be carriedout to confirm baseline values. Basophil percentageOrdered B y: Gildardo Hollingsworth on 05-05-2023 Chloride [Moles/Vol] 101 mmol/L 98-107 [facility] Glucose [Mass/Vol] 116 mg/dL 74-106 [facility] Comment on above: Fasting Glucose resu lt from 100 to 125 mg/dL suggests IMPAIRED HOMEOSTASIS per A.D.A. criteria. Hemoglobin (Bld) [Mass/Vol] 14.6 g/dL 13.0-16.5 [facility] Potassium [Moles/Vol] 4.1 mmol/L 3.5-5.1 [facility] Sodium [Moles/Vol] 135 mmol/L 136-145 [facility] WBC (Bld) [#/Vol] 4.9 10*3/uL 4.4-11.0 [facility] Determination of erythrocyte mean corpuscular volume (MCV)Ordered By: Gildardo Hollingsworth on 05-05-2023 MCV (RBC) [Entitic vol] 93.6 fL 80-94 [facility] Erythrocyte distribution wid th ratioOrdered By: Gildardo Hollingsworth on 05-05-2023 Erythrocyte distribution width (RBC) [Ratio] 15.8 % 11.6-14.6 [facility] Erythrocyte distribution wid th standard deviationOrdered By: Gildardo Hollingsworth on 05-05-2023 Erythrocyte distribution width (RBC) [Entitic vol] 53.7 fL 35.1-43.9 [facility] Hematocrit Auto (Bld) [Volum e fraction]Ordered By: Gildardo Hollingsworth on 05-05-2023 Hematocrit (Bld) [Volume fraction] 45.5 % 40-54 [facility] - Chemistry and C hemistry - challengeOrdered By: Gildardo Hollingsworth on 05-05-2023 CO2 [Moles/Vol] 32.0 mmol/L 21.0-32.0 [facility] Urea nitrogen/Creatinine [Mass ratio] 17.8 mg/mg 10-20 [facility] - Hematology and Cell countsOrdered By: Gildardo Hollingsworth on 05-05-2023 MCH (RBC) [Entitic mass] 30.0 pg 27.0-32.0 [facility] MCHC (RBC) [Mass/Vol] 32.1 g/dL 32-36 [facility] Platelet mean volume (Bld) [Entitic vol] 9.2 fL 6.2-12.0 [facility] Platelets (Bld) [#/Vol] 201 10*3/uL 150-450 [facility] No Panel InformationOrdered By: Gildardo Hollingsworth on 05-05-2023 Estimated GFR (MDRD) Amer 84 mL/min >60 [facility] Comment on above: GFR Calc Estimated GFR (MDRD) Non-Af Amer 69 mL/min >60 [facility] Comment on above: Non- GFR Calc RBC Auto (Bld) [#/Vol]Ordere d By: Gildardo Hollingsworth on 05-05-2023 RBC (Bld) [#/Vol] 4.86 10*6/uL 4.6-6.2 [facility] Serum or plasma calcium renetta urement (mass/volume)Ordered By: Gildardo Hollingsworth on 05-05-2023 Calcium [Mass/Vol] 8.9 mg/dL 8.5-10.1 [facility] Serum or plasma creatinine m easurement (mass/volume)Ordered By: Gildardo Hollingsworth on 05-05-2023 Creatinine [Mass/Vol] 1.07 mg/dL 0.70-1.30 [facility] Comment on above: The validity of the calculated GFR & GFRAA in patients over 70 years has not been determined. Clinical correlation is essential. Serum or plasma urea nitroge n measurement (mass/volume)Ordered By: Gildardo Hollingsworth on 05-05-2023 Urea nitrogen [Mass/Vol] 19 mg/dL 7-18 [facility] Thin prep Papanicolaou smear with manual screeningOrdered By: Gildardo Hollingsworth on 05-05-2023 Thin prep Papanicolaou smear with manual screening 2 5-15 [facility] Absolute lymphocyte countOrd ered By: Sarita Melgar on 04-14-2023 Lymphocytes Auto (Unsp spec) [#/Vol] 0.62 10*3/uL 0.83-4.51 [facility] Basophil percentageOrdered B y: Sarita Melgar on 04-14-2023 Basophils/100 WBC (Bld) 0.7 % 0-1 [facility] Chloride [Moles/Vol] 99 mmol/L 98-107 [facility] Eosinophils/100 WBC (Bld) 2.4 % 0-5 [facility] Glucose [Mass/Vol] 98 mg/dL 74-106 [facility] Neutrophils (Bld) [#/Vol] 3.2 10*3/uL 2.0-7.7 [facility] Neutrophils/100 WBC (Bld) 71.5 % 47-70 [facility] Potassium [Moles/Vol] 4.4 mmol/L 3.5-5.1 [facility] Sodium [Moles/Vol] 132 mmol/L 136-145 [facility] WBC (Bld) [#/Vol] 4.5 10*3/uL 4.4-11.0 [facility] Blood erythrocytes count (nu mber/volume)Ordered By: Sarita Melgar on 04-14-2023 RBC (Bld) [#/Vol] 4.10 10*6/uL 4.6-6.2 [facility] Blood hemoglobin measurement (mass/volume)Ordered By: Sarita Melgar on 04-14-2023 Hemoglobin (Bld) [Mass/Vol] 12.3 g/dL 13.0-16.5 [facility] Blood lymphocytes/100 leukoc ytesOrdered By: Sarita Melgar on 04-14-2023 Lymphocytes/100 WBC (Bld) 13.7 % 19-41 [facility] Blood monocytes/100 leukocyt esOrdered By: Sarita Melgar on 04-14-2023 Monocytes/100 WBC (Bld) 8.2 % 0-10 [facility] Blood platelet mean volumeOr dered By: Sarita Melgar on 04-14-2023 Platelet mean volume (Bld) [Entitic vol] 8.8 fL 6.2-12.0 [facility] Determination of erythrocyte mean corpuscular volume (MCV)Ordered By: Sarita Melgar on 04-14-2023 MCV (RBC) [Entitic vol] 91.0 fL 80-94 [facility] Hematocrit Auto (Bld) [Volum e fraction]Ordered By: Sarita Melgar on 04-14-2023 Hematocrit (Bld) [Volume fraction] 37.3 % 40-54 [facility] Laboratory - Chemistry and C hemistry - challengeOrdered By: Sarita Melgar on 04-14-2023 CO2 [Moles/Vol] 29.0 mmol/L 21.0-32.0 [facility] Urea nitrogen/Creatinine [Mass ratio] 32.9 mg/mg 10-20 [facility] Laboratory - Hematology and Cell countsOrdered By: Sarita Melgar on 04-14-2023 Erythrocyte distribution width (RBC) [Entitic vol] 49.1 fL 35.1-43.9 [facility] Erythrocyte distribution width (RBC) [Ratio] 14.7 % 11.6-14.6 [facility] Immature granulocytes/100 WBC (Bld) 3.500 % 0.0-0.9 [facility] Comment on above: IG% - Immature Granu locytes (promyelocytes, myelocytes and metamyelocytes) > 1% indicates that a LEFT SHIFT is Present. MCH (RBC) [Entitic mass] 30.0 pg 27.0-32.0 [facility] Nucleated RBC/100 WBC (Bld) [Ratio] 0 % 0-5 [facility] MCHC Auto (RBC) [Mass/Vol]Or dered By: Sarita Melgar on 04-14-2023 MCHC (RBC) [Mass/Vol] 33.0 g/dL 32-36 [facility] No Panel InformationOrdered By: Sarita Melgar on 04-14-2023 Estimated Creatinine Clearance Calc 50.58 ml/min [facility] Estimated GFR (MDRD) Amer 137 mL/min >60 [facility] Comment on above: GFR Calc Estimated GFR (MDRD) Non-Af Amer 113 mL/min >60 [facility] Comment on above: Non- GFR Calc Platelets bldOrdered By: Harrison Melgar on 04-14-2023 Platelets (Bld) [#/Vol] 238 10*3/uL 150-450 [facility] Serum or plasma calcium renetta urement (mass/volume)Ordered By: Sarita Melgar on 04-14-2023 Calcium [Mass/Vol] 8.8 mg/dL 8.5-10.1 [facility] Serum or plasma creatinine m easurement (mass/volume)Ordered By: Sarita Melgar on 04-14-2023 Creatinine [Mass/Vol] 0.70 mg/dL 0.70-1.30 [facility] Comment on above: The validity of the calculated GFR & GFRAA in patients over 70 years has not been determined. Clinical correlation is essential. Serum or plasma urea nitroge n measurement (mass/volume)Ordered By: Sarita Melgar on 04-14-2023 Urea nitrogen [Mass/Vol] 23 mg/dL 7-18 [facility] Thin prep Papanicolaou smear with manual screeningOrdered By: Sarita Melgar on 04-14-2023 Thin prep Papanicolaou smear with manual screening 4 5-15 [facility] Bacteria identified Respirat ory culture Nom (Unsp spec)Ordered By: Twila Humhpreys on 04-10-2023 Respiratory Culture Beta streptococcus [facility] Respiratory Culture Beta streptococcus [facility] Blood manual differential co mment interpretation (narrative result)Ordered By: Twila Humphreys on 04-10-2023 Manual differential comment Haim (Bld) [Interp] SCANNED [facility] Gram stain for investigation of transfusion reactionOrdered By: Twila Humphreys on 04-10-2023 Microscopic observation Gram stain Nom (Unsp spec) [facility] Microscopic observation Gram stain Nom (Unsp spec) [facility] Review by pathologistOrdered By: Twila Humphreys on 04-10-2023 Pathologist review Haim (Unsp spec) [Interp] Reviewed [facility] Comment on above: Previous reported re sult: July cm Edited by: RICHARD on 04/14/23:0929Leukopenia.Normocytic anemia.Clinical correlation necessary.Waqas Maldonado M.D. 04/14/23 AMENDED REPORT 04/14/23 0929 PATH REV previously reported as: July cm Absolute lymphocyte countOrd ered By: Abhishek Isabel on 04-09-2023 Lymphocytes Auto (Unsp spec) [#/Vol] 0.54 10*3/uL 0.83-4.51 [facility] Basophil percentageOrdered B y: Abhishek Isabel on 04-09-2023 Basophil percentage 10-25 SEEN /hpf 0-5 [facility] Basophils/100 WBC (Bld) 0.6 % 0-1 [facility] Eosinophils/100 WBC (Bld) 0.0 % 0-5 [facility] Lactate [Moles/Vol] 1.1 mmol/L 0.4-2.0 [facility] Neutrophils (Bld) [#/Vol] 3.9 10*3/uL 2.0-7.7 [facility] Neutrophils/100 WBC (Bld) 77.6 % 47-70 [facility] WBC (Bld) [#/Vol] 5.0 10*3/uL 4.4-11.0 [facility] Basophil percentageOrdered B y: ED PROVIDER on 04-09-2023 Bilirubin [Mass/Vol] 0.80 mg/dL 0.20-1.00 [facility] Comment on above: For patients on eltr ombopag therapy, use of Dimension [place] TBIL is not recommended. Chloride [Moles/Vol] 101 mmol/L 98-107 [facility] Glucose [Mass/Vol] 114 mg/dL 74-106 [facility] Comment on above: Fasting Glucose resu lt from 100 to 125 mg/dL suggests IMPAIRED HOMEOSTASIS per A.D.A. criteria. Potassium [Moles/Vol] 4.1 mmol/L 3.5-5.1 [facility] Protein [Mass/Vol] 6.9 g/dL 6.4-8.2 [facility] Sodium [Moles/Vol] 135 mmol/L 136-145 [facility] Bilirubin Test strip Ql (U)O rdered By: Abhishek Isabel on 04-09-2023 Bilirubin Ql (U) Negative Negative [facility] Blood erythrocytes count (nu mber/volume)Ordered By: Abhishek Isabel on 04-09-2023 RBC (Bld) [#/Vol] 4.51 10*6/uL 4.6-6.2 [facility] Blood hemoglobin measurement (mass/volume)Ordered By: Abhishek Isabel on 04-09-2023 Hemoglobin (Bld) [Mass/Vol] 13.5 g/dL 13.0-16.5 [facility] Blood lymphocytes/100 leukoc ytesOrdered By: Abhishek Isabel on 04-09-2023 Lymphocytes/100 WBC (Bld) 10.8 % 19-41 [facility] Blood manual differential co mment interpretation (narrative result)Ordered By: Abhishek Isabel on 04-09-2023 Manual differential comment Haim (Bld) [Interp] SEE COMMENT [facility] Comment on above: LYMPHOPENIA NOTED Blood monocytes/100 leukocyt esOrdered By: Abhishek Isabel on 04-09-2023 Monocytes/100 WBC (Bld) 9.8 % 0-10 [facility] Blood platelet adequacy dete ction by light microscopyOrdered By: Abhishek Isabel on 04-09-2023 Platelets LM Ql (Bld) ADEQUATE ADEQ [facility] Blood platelet mean volumeOr dered By: Abhishek Isabel on 04-09-2023 Platelet mean volume (Bld) [Entitic vol] 8.9 fL 6.2-12.0 [facility] Culture, urineOrdered By: Ricardo Isabel on 04-09-2023 Bacteria identified Cx Nom (U) Corynebacterium amycolatum [facility] Bacteria identified Cx Nom (U) Corynebacterium amycolatum [facility] Determination of erythrocyte mean corpuscular volume (MCV)Ordered By: Abhishek Isabel on 04-09-2023 MCV (RBC) [Entitic vol] 89.6 fL 80-94 [facility] Hematocrit Auto (Bld) [Volum e fraction]Ordered By: Abhishek Isabel on 04-09-2023 Hematocrit (Bld) [Volume fraction] 40.4 % 40-54 [facility] INR in Blood by Coagulation assayOrdered By: Abhishek Isabel on 04-09-2023 INR Coag (Bld) [Relative time] 1.1 {INR} [facility] Ketones Test strip Ql (U)Ord ered By: Abhishek Isabel on 04-09-2023 Ketones Ql (U) 5 mg/dl Negative [facility] Laboratory - Chemistry and C hemistry - challengeOrdered By: ED PROVIDER on 04-09-2023 ALP [Catalytic activity/Vol] 128 U/L 45-117 [facility] ALT [Catalytic activity/Vol] 15 U/L 16-61 [facility] CO2 [Moles/Vol] 29.0 mmol/L 21.0-32.0 [facility] Globulin (S) [Mass/Vol] 4.3 g/dL 2.2-4.2 [facility] Urea nitrogen/Creatinine [Mass ratio] 17.9 mg/mg 10-20 [facility] Laboratory - CoagulationOrde red By: Abhishek Isabel on 04-09-2023 aPTT Coag (Bld) [Time] 34.9 s 24.1-36.2 [facility] PT Coag (PPP) [Time] 14.0 s 11.7-14.9 [facility] Laboratory - Hematology and Cell countsOrdered By: Abhishek Isabel on 04-09-2023 Anisocytosis Ql (Bld) RARE [facility] Erythrocyte distribution width (RBC) [Entitic vol] 48.8 fL 35.1-43.9 [facility] Erythrocyte distribution width (RBC) [Ratio] 15.0 % 11.6-14.6 [facility] Immature granulocytes/100 WBC (Bld) 1.200 % 0.0-0.9 [facility] Comment on above: IG% - Immature Granu locytes (promyelocytes, myelocytes and metamyelocytes) > 1% indicates that a LEFT SHIFT is Present. MCH (RBC) [Entitic mass] 29.9 pg 27.0-32.0 [facility] Nucleated RBC/100 WBC (Bld) [Ratio] 0 % 0-5 [facility] Laboratory - Microbiology an d Antimicrobial susceptibilityOrdered By: Abhishek Isabel on 04-09-2023 Bacteria identified Cx Nom (Bld) No growth in 5 days. [facility] SARS-CoV-2 (COVID-19) RNA ALEXANDRA+probe Ql (Unsp spec) [facility] Bacteria identified Cx Nom (Bld) No growth in 5 days. [facility] MCHC Auto (RBC) [Mass/Vol]Or dered By: Abhishek Isabel on 04-09-2023 MCHC (RBC) [Mass/Vol] 33.4 g/dL 32-36 [facility] Mucus LM Ql (Urine sed)Order ed By: Abhishek Isabel on 04-09-2023 Mucus Ql (Urine sed) 0 SEEN /hpf [facility] Nitrite Test strip Ql (U)Ord ered By: Abhishek Isabel on 04-09-2023 Nitrite Ql (U) Negative Negative [facility] No Panel InformationOrdered By: Twila Humphreys on 04-09-2023 Streptococcus pneumoniae Antigen (M [facility] No Panel InformationOrdered By: ED PROVIDER on 04-09-2023 Estimated Creatinine Clearance Calc 42.93 ml/min [facility] Estimated GFR (MDRD) Amer 96 mL/min >60 [facility] Comment on above: GFR Calc Estimated GFR (MDRD) Non-Af Amer 80 mL/min >60 [facility] Comment on above: Non- GFR Calc Platelets bldOrdered By: Clayton Isabel on 04-09-2023 Platelets (Bld) [#/Vol] 210 10*3/uL 150-450 [facility] Protein Test strip Ql (U)Ord ered By: Abhishek Isabel on 04-09-2023 Protein Ql (U) 100 mg/dl Negative [facility] RBC morphologyOrdered By: Ricardo Isabel on 04-09-2023 RBC morphology finding Nom (Bld) NORM C+C NORMAL NORM C&C [facility] Serum or plasma albumin renetta urement (mass/volume)Ordered By: ED PROVIDER on 04-09-2023 Albumin [Mass/Vol] 2.6 g/dL 3.2-5.0 [facility] Serum or plasma albumin/glob ulin mass ratioOrdered By: ED PROVIDER on 04-09-2023 Albumin/Globulin [Mass ratio] 0.6 {ratio} 0.9-2.4 [facility] Serum or plasma calcium renetta urement (mass/volume)Ordered By: ED PROVIDER on 04-09-2023 Calcium [Mass/Vol] 8.7 mg/dL 8.5-10.1 [facility] Serum or plasma creatinine m easurement (mass/volume)Ordered By: ED PROVIDER on 04-09-2023 Creatinine [Mass/Vol] 0.95 mg/dL 0.70-1.30 [facility] Comment on above: The validity of the calculated GFR & GFRAA in patients over 70 years has not been determined. Clinical correlation is essential. Serum or plasma urea nitroge n measurement (mass/volume)Ordered By: ED PROVIDER on 04-09-2023 Urea nitrogen [Mass/Vol] 17 mg/dL 7-18 [facility] Squamous epithelial cells de tection in urine sediment by light microscopyOrdered By: Abhishek Isabel on 04-09-2023 Epithelial cells.squamous LM Ql (Urine sed) 0 SEEN /hpf 0-5 [facility] Thin prep Papanicolaou smear with manual screeningOrdered By: ED PROVIDER on 04-09-2023 Thin prep Papanicolaou smear with manual screening 15 U/L 15-37 [facility] Thin prep Papanicolaou smear with manual screening 5 5-15 [facility] Urine Legionella pneumophila antigen detectionOrdered By: Twila Humphreys on 04-09-2023 L. pneumophila Ag Ql (U) [facility] Urine blood detectionOrdered By: Abhishek Isabel on 04-09-2023 RBC Ql (U) 250 /ul Negative [facility] RBC Ql (U) 50-100 SEEN /hpf 0-5 [facility] Urine clarityOrdered By: Clatyon Isabel on 04-09-2023 Clarity (U) Cloudy Clear [facility] Urine color determinationOrd ered By: Abhishek Isabel on 04-09-2023 Color (U) Yellow Yellow [facility] Urine glucose detectionOrder ed By: Abhishek Isabel on 04-09-2023 Glucose Ql (U) Normal mg/dl Normal [facility] Urine leukocyte esterase det ection by dipstickOrdered By: Abhishek Isabel on 04-09-2023 Leukocyte esterase Test strip Ql (U) 500 /ul Negative [facility] Urine pHOrdered By: Abhishek chaidez on 04-09-2023 pH (U) 6.0 [pH] 5.0 - 8.0 [facility] Urine sediment bacteria coun t by microscopy (number/high power field)Ordered By: Abhishek Isabel on 04-09-2023 Bacteria LM.HPF (Urine sed) [#/Area] RARE /hpf None Seen [facility] Urine specific gravity measu rementOrdered By: Abhishek Isabel on 04-09-2023 Specific gravity (U) [Rel density] 1.020 1.002-1.030 [facility] Urobilinogen Auto test strip Ql (U)Ordered By: Abhishek Isabel on 04-09-2023 Urobilinogen Ql (U) Normal mg/dl Normal [facility] Basophil percentageOrdered B y: Gildardo Hollingsworth on 03-16-2023 Chloride [Moles/Vol] 103 mmol/L 98-107 [facility] Glucose [Mass/Vol] 93 mg/dL 74-106 [facility] Potassium [Moles/Vol] 4.2 mmol/L 3.5-5.1 [facility] Sodium [Moles/Vol] 136 mmol/L 136-145 [facility] WBC (Bld) [#/Vol] 4.8 10*3/uL 4.4-11.0 [facility] Blood erythrocytes count (nu mber/volume)Ordered By: Gildardo Hollingsworth on 03-16-2023 RBC (Bld) [#/Vol] 4.61 10*6/uL 4.6-6.2 [facility] Blood hemoglobin measurement (mass/volume)Ordered By: Gildardo Hollingsworth on 03-16-2023 Hemoglobin (Bld) [Mass/Vol] 13.4 g/dL 13.0-16.5 [facility] Blood platelet mean volumeOr dered By: Gildardo Hollingsworth on 03-16-2023 Platelet mean volume (Bld) [Entitic vol] 8.9 fL 6.2-12.0 [facility] Determination of erythrocyte mean corpuscular volume (MCV)Ordered By: Gildardo Hollingsworth on 03-16-2023 MCV (RBC) [Entitic vol] 96.3 fL 80-94 [facility] Hematocrit Auto (Bld) [Volum e fraction]Ordered By: Gildardo Hollingsworth on 03-16-2023 Hematocrit (Bld) [Volume fraction] 44.4 % 40-54 [facility] Laboratory - Chemistry and C hemistry - challengeOrdered By: Gildardo Hollingsworth on 03-16-2023 CO2 [Moles/Vol] 28.0 mmol/L 21.0-32.0 [facility] Urea nitrogen/Creatinine [Mass ratio] 17.4 mg/mg 10-20 [facility] Laboratory - Hematology and Cell countsOrdered By: Gildardo Hollingsworth on 03-16-2023 Erythrocyte distribution width (RBC) [Entitic vol] 49.0 fL 35.1-43.9 [facility] Erythrocyte distribution width (RBC) [Ratio] 13.8 % 11.6-14.6 [facility] MCH (RBC) [Entitic mass] 29.1 pg 27.0-32.0 [facility] MCHC Auto (RBC) [Mass/Vol]Or dered By: Gildardo Hollingsworth on 03-16-2023 MCHC (RBC) [Mass/Vol] 30.2 g/dL 32-36 [facility] No Panel InformationOrdered By: Gildardo Hollingsworth on 03-16-2023 Estimated GFR (MDRD) Amer 82 mL/min >60 [facility] Comment on above: GFR Calc Estimated GFR (MDRD) Non-Af Amer 68 mL/min >60 [facility] Comment on above: Non- GFR Calc Platelets bldOrdered By: Stephane Hollingsworth on 03-16-2023 Platelets (Bld) [#/Vol] 235 10*3/uL 150-450 [facility] Serum or plasma calcium renetta urement (mass/volume)Ordered By: Gildardo Hollingsworth on 03-16-2023 Calcium [Mass/Vol] 8.3 mg/dL 8.5-10.1 [facility] Serum or plasma creatinine m easurement (mass/volume)Ordered By: Gildardo Hollingsworth on 03-16-2023 Creatinine [Mass/Vol] 1.09 mg/dL 0.70-1.30 [facility] Comment on above: The validity of the calculated GFR & GFRAA in patients over 70 years has not been determined. Clinical correlation is essential. Serum or plasma urea nitroge n measurement (mass/volume)Ordered By: Gildardo Hollingsworth on 03-16-2023 Urea nitrogen [Mass/Vol] 19 mg/dL 7-18 [facility] Thin prep Papanicolaou smear with manual screeningOrdered By: Gildardo Hollingsworth on 03-16-2023 Thin prep Papanicolaou smear with manual screening 5 5-15 [facility] Absolute lymphocyte countOrd ered By: Albert Briscoe on 03-08-2023 Lymphocytes Auto (Unsp spec) [#/Vol] 0.46 10*3/uL 0.83-4.51 [facility] Basophil percentageOrdered B y: Albert Briscoe on 03-08-2023 Lactate [Moles/Vol] 1.3 mmol/L 0.4-2.0 [facility] Basophil percentage 5-10 SEEN /hpf 0-5 [facility] Basophils/100 WBC (Bld) 0.3 % 0-1 [facility] Chloride [Moles/Vol] 99 mmol/L 98-107 [facility] Eosinophils/100 WBC (Bld) 0.0 % 0-5 [facility] Glucose [Mass/Vol] 124 mg/dL 74-106 [facility] Comment on above: Fasting Glucose resu lt from 100 to 125 mg/dL suggests IMPAIRED HOMEOSTASIS per A.D.A. criteria. Neutrophils (Bld) [#/Vol] 4.8 10*3/uL 2.0-7.7 [facility] Neutrophils/100 WBC (Bld) 82.4 % 47-70 [facility] Potassium [Moles/Vol] 3.8 mmol/L 3.5-5.1 [facility] Sodium [Moles/Vol] 133 mmol/L 136-145 [facility] WBC (Bld) [#/Vol] 5.9 10*3/uL 4.4-11.0 [facility] Bilirubin Test strip Ql (U)O rdered By: Albert Briscoe on 03-08-2023 Bilirubin Ql (U) Negative Negative [facility] Blood erythrocytes count (nu mber/volume)Ordered By: Albert Briscoe on 03-08-2023 RBC (Bld) [#/Vol] 4.64 10*6/uL 4.6-6.2 [facility] Blood hemoglobin measurement (mass/volume)Ordered By: Albert Briscoe on 03-08-2023 Hemoglobin (Bld) [Mass/Vol] 13.5 g/dL 13.0-16.5 [facility] Blood lymphocytes/100 leukoc ytesOrdered By: Albert Briscoe on 03-08-2023 Lymphocytes/100 WBC (Bld) 7.8 % 19-41 [facility] Blood manual differential co mment interpretation (narrative result)Ordered By: Albert Briscoe on 03-08-2023 Manual differential comment Haim (Bld) [Interp] SCANNED [facility] Blood monocytes/100 leukocyt esOrdered By: Albert Briscoe on 03-08-2023 Monocytes/100 WBC (Bld) 8.5 % 0-10 [facility] Blood platelet mean volumeOr dered By: Albert Briscoe on 03-08-2023 Platelet mean volume (Bld) [Entitic vol] 8.7 fL 6.2-12.0 [facility] Determination of erythrocyte mean corpuscular volume (MCV)Ordered By: Albert Briscoe on 03-08-2023 MCV (RBC) [Entitic vol] 91.8 fL 80-94 [facility] Hematocrit Auto (Bld) [Volum e fraction]Ordered By: Albert Briscoe on 03-08-2023 Hematocrit (Bld) [Volume fraction] 42.6 % 40-54 [facility] Influenza virus A and B and SARS-CoV-2 (COVID-19) Ag panel - Upper respiratory specimOrdered By: Albert Briscoe on 03-08-2023 SARS-CoV-2 (COVID-19) RNA ALEXANDRA+probe Ql (Resp) [facility] Ketones Test strip Ql (U)Ord ered By: Albert Briscoe on 03-08-2023 Ketones Ql (U) 5 mg/dl Negative [facility] Laboratory - Chemistry and C hemistry - challengeOrdered By: Albert Briscoe on 03-08-2023 CO2 [Moles/Vol] 31.0 mmol/L 21.0-32.0 [facility] Urea nitrogen/Creatinine [Mass ratio] 14.3 mg/mg 10-20 [facility] Laboratory - Hematology and Cell countsOrdered By: Albert Briscoe on 03-08-2023 Erythrocyte distribution width (RBC) [Entitic vol] 46.2 fL 35.1-43.9 [facility] Erythrocyte distribution width (RBC) [Ratio] 13.6 % 11.6-14.6 [facility] Immature granulocytes/100 WBC (Bld) 1.000 % 0.0-0.9 [facility] Comment on above: IG% - Immature Granu locytes (promyelocytes, myelocytes and metamyelocytes) > 1% indicates that a LEFT SHIFT is Present. MCH (RBC) [Entitic mass] 29.1 pg 27.0-32.0 [facility] Nucleated RBC/100 WBC (Bld) [Ratio] 0 % 0-5 [facility] Laboratory - Microbiology an d Antimicrobial susceptibilityOrdered By: Albert Briscoe on 03-08-2023 Bacteria identified Cx Nom (Bld) No growth in 5 days. [facility] MCHC Auto (RBC) [Mass/Vol]Or dered By: Albert Briscoe on 03-08-2023 MCHC (RBC) [Mass/Vol] 31.7 g/dL 32-36 [facility] Mucus LM Ql (Urine sed)Order ed By: Albert Briscoe on 03-08-2023 Mucus Ql (Urine sed) 1+ /hpf [facility] Nitrite Test strip Ql (U)Ord ered By: Albert Briscoe on 03-08-2023 Nitrite Ql (U) Negative Negative [facility] No Panel InformationOrdered By: Albert Briscoe on 03-08-2023 Estimated Creatinine Clearance Calc 38.56 ml/min [facility] Estimated GFR (MDRD) Amer 86 mL/min >60 [facility] Comment on above: GFR Calc Estimated GFR (MDRD) Non-Af Amer 71 mL/min >60 [facility] Comment on above: Non- GFR Calc Platelets bldOrdered By: Daniel Briscoe on 03-08-2023 Platelets (Bld) [#/Vol] 251 10*3/uL 150-450 [facility] Protein Test strip Ql (U)Ord ered By: Albert Briscoe on 03-08-2023 Protein Ql (U) 100 mg/dl Negative [facility] Serum or plasma calcium renetta urement (mass/volume)Ordered By: Albert Briscoe on 03-08-2023 Calcium [Mass/Vol] 8.7 mg/dL 8.5-10.1 [facility] Serum or plasma creatinine m easurement (mass/volume)Ordered By: Albert Briscoe on 03-08-2023 Creatinine [Mass/Vol] 1.05 mg/dL 0.70-1.30 [facility] Comment on above: The validity of the calculated GFR & GFRAA in patients over 70 years has not been determined. Clinical correlation is essential. Serum or plasma urea nitroge n measurement (mass/volume)Ordered By: Albert Briscoe on 03-08-2023 Urea nitrogen [Mass/Vol] 15 mg/dL 7-18 [facility] Squamous epithelial cells de tection in urine sediment by light microscopyOrdered By: Albert Briscoe on 03-08-2023 Epithelial cells.squamous LM Ql (Urine sed) 0-5 SEEN /hpf 0-5 [facility] Thin prep Papanicolaou smear with manual screeningOrdered By: Albert Briscoe on 03-08-2023 Thin prep Papanicolaou smear with manual screening 3 5-15 [facility] [facility] Upper respiratory specimen i nfluenza A virus, influenza B virus, and severe acute respiratory syndromOrdered By: Albert Briscoe on 03-08-2023 Upper respiratory specimen influenza A virus, influenza B virus, and severe acute respiratory syndrom [facility] Urine blood detectionOrdered By: Albert Briscoe on 03-08-2023 RBC Ql (U) 250 /ul Negative [facility] RBC Ql (U) 25-50 SEEN /hpf 0-5 [facility] Urine clarityOrdered By: Daniel Briscoe on 03-08-2023 Clarity (U) Clear Clear [facility] Urine color determinationOrd ered By: Albert Briscoe on 03-08-2023 Color (U) Yellow Yellow [facility] Urine glucose detectionOrder ed By: Albert Briscoe on 03-08-2023 Glucose Ql (U) Normal mg/dl Normal [facility] Urine leukocyte esterase det ection by dipstickOrdered By: Albert Briscoe on 03-08-2023 Leukocyte esterase Test strip Ql (U) 500 /ul Negative [facility] Urine pHOrdered By: Albert chris on 03-08-2023 pH (U) 7.0 [pH] 5.0 - 8.0 [facility] Urine sediment bacteria coun t by microscopy (number/high power field)Ordered By: Albert Briscoe on 03-08-2023 Bacteria LM.HPF (Urine sed) [#/Area] 0 /[HPF] None Seen [facility] Urine specific gravity measu rementOrdered By: Albert Briscoe on 03-08-2023 Specific gravity (U) [Rel density] 1.015 1.002-1.030 [facility] Urobilinogen Auto test strip Ql (U)Ordered By: Albert Briscoe on 03-08-2023 Urobilinogen Ql (U) Normal mg/dl Normal [facility] Culture, urineOrdered By: Tia Hollingsworth on 03-05-2023 Bacteria identified Cx Nom (U) Providencia rettgeri [facility] Bacteria identified Cx Nom (U) Serratia marcescens [facility] Anaerobic cultureOrdered By: Candice Truong on 12-26-2022 Bacteria identified Anaer cx Nom (Unsp spec) No anaerobic bacteria isolated. [facility] Bacteria identified Cx Nom ( Wound)Ordered By: Candice Truong on 12-26-2022 Wound Culture Staphylococcus warneri [facility] Wound Culture Klebsiella oxytoca [facility] Wound Culture Positive [facility] Gram stain for investigation of transfusion reactionOrdered By: Candice Truong on 12-26-2022 Microscopic observation Gram stain Nom (Unsp spec) [facility] Microscopic observation Gram stain Nom (Unsp spec) [facility] Basophil percentageOrdered B y: Scott Gauthier on 12-09-2022 Chloride [Moles/Vol] 100 mmol/L 98-107 [facility] Glucose [Mass/Vol] 98 mg/dL 74-106 [facility] Potassium [Moles/Vol] 4.7 mmol/L 3.5-5.1 [facility] Sodium [Moles/Vol] 134 mmol/L 136-145 [facility] WBC (Bld) [#/Vol] 4.3 10*3/uL 4.4-11.0 [facility] Blood erythrocytes count (nu mber/volume)Ordered By: Scott Gauthier on 12-09-2022 RBC (Bld) [#/Vol] 3.13 10*6/uL 4.6-6.2 [facility] Blood hemoglobin measurement (mass/volume)Ordered By: Scott Gauthier on 12-09-2022 Hemoglobin (Bld) [Mass/Vol] 9.7 g/dL 13.0-16.5 [facility] Blood platelet mean volumeOr dered By: Scott Gauthier on 12-09-2022 Platelet mean volume (Bld) [Entitic vol] 8.7 fL 6.2-12.0 [facility] Determination of erythrocyte mean corpuscular volume (MCV)Ordered By: Scott Gauthier on 12-09-2022 MCV (RBC) [Entitic vol] 98.4 fL 80-94 [facility] Hematocrit Auto (Bld) [Volum e fraction]Ordered By: Scott Gauthier on 12-09-2022 Hematocrit (Bld) [Volume fraction] 30.8 % 40-54 [facility] Laboratory - Chemistry and C hemistry - challengeOrdered By: Scott Gauthier on 12-09-2022 CO2 [Moles/Vol] 30.0 mmol/L 21.0-32.0 [facility] Urea nitrogen/Creatinine [Mass ratio] 34.9 mg/mg 10-20 [facility] Laboratory - Hematology and Cell countsOrdered By: Scott Gauthier on 12-09-2022 Erythrocyte distribution width (RBC) [Entitic vol] 52.2 fL 35.1-43.9 [facility] Erythrocyte distribution width (RBC) [Ratio] 14.6 % 11.6-14.6 [facility] MCH (RBC) [Entitic mass] 31.0 pg 27.0-32.0 [facility] MCHC Auto (RBC) [Mass/Vol]Or dered By: Scott Gauthier on 12-09-2022 MCHC (RBC) [Mass/Vol] 31.5 g/dL 32-36 [facility] No Panel InformationOrdered By: Scott Gauthier on 12-09-2022 Estimated Creatinine Clearance Calc 53.00 ml/min [facility] Estimated GFR (MDRD) Amer 117 mL/min >60 [facility] Comment on above: GFR Calc Estimated GFR (MDRD) Non-Af Amer 97 mL/min >60 [facility] Comment on above: Non- GFR Calc Platelets bldOrdered By: Jamia Gauthier on 12-09-2022 Platelets (Bld) [#/Vol] 282 10*3/uL 150-450 [facility] Serum or plasma calcium renetta urement (mass/volume)Ordered By: Scott Abrahan on 12-09-2022 Calcium [Mass/Vol] 8.4 mg/dL 8.5-10.1 [facility] Serum or plasma creatinine m easurement (mass/volume)Ordered By: Scott Abrahan on 12-09-2022 Creatinine [Mass/Vol] 0.80 mg/dL 0.70-1.30 [facility] Comment on above: The validity of the calculated GFR & GFRAA in patients over 70 years has not been determined. Clinical correlation is essential. Serum or plasma urea nitroge n measurement (mass/volume)Ordered By: Scott Abrahan on 12-09-2022 Urea nitrogen [Mass/Vol] 28 mg/dL 7-18 [facility] Thin prep Papanicolaou smear with manual screeningOrdered By: Scott Abrahan on 12-09-2022 Thin prep Papanicolaou smear with manual screening 4 5-15 [facility] Basophil percentageOrdered B y: Scott Olsenambrocio on 11-29-2022 Basophil percentage 3.1 mg/dL 2.5-4.9 [facility] Bilirubin [Mass/Vol] 0.70 mg/dL 0.20-1.00 [facility] Comment on above: For patients on eltr ombopag therapy, use of Dimension [place] TBIL is not recommended. Protein [Mass/Vol] 5.9 g/dL 6.4-8.2 [facility] Laboratory - Chemistry and C hemistry - challengeOrdered By: Scott Abrahan on 11-29-2022 ALP [Catalytic activity/Vol] 90 U/L 45-117 [facility] ALT [Catalytic activity/Vol] 29 U/L 16-61 [facility] Globulin (S) [Mass/Vol] 3.7 g/dL 2.2-4.2 [facility] Magnesium [Mass/Vol] 2.1 mg/dL 1.6-2.6 [facility] Serum or plasma albumin renetta urement (mass/volume)Ordered By: Scott Abrahan on 11-29-2022 Albumin [Mass/Vol] 2.2 g/dL 3.2-5.0 [facility] Serum or plasma albumin/glob ulin mass ratioOrdered By: Scott Gauthier on 11-29-2022 Albumin/Globulin [Mass ratio] 0.6 {ratio} 0.9-2.4 [facility] Thin prep Papanicolaou smear with manual screeningOrdered By: Scott Gauthier on 11-29-2022 Thin prep Papanicolaou smear with manual screening 40 U/L 15-37 [facility] Basophil percentageOrdered B y: Hitesh Holguin on 11-28-2022 WBC (Bld) [#/Vol] 4.6 10*3/uL 4.4-11.0 [facility] Blood erythrocytes count (nu mber/volume)Ordered By: Hitesh Holguin on 11-28-2022 RBC (Bld) [#/Vol] 2.78 10*6/uL 4.6-6.2 [facility] Blood hemoglobin measurement (mass/volume)Ordered By: Hitesh Holguin on 11-28-2022 Hemoglobin (Bld) [Mass/Vol] 8.7 g/dL 13.0-16.5 [facility] Blood platelet mean volumeOr dered By: Hitesh Holguin on 11-28-2022 Platelet mean volume (Bld) [Entitic vol] 10.4 fL 6.2-12.0 [facility] Determination of erythrocyte mean corpuscular volume (MCV)Ordered By: Hitesh Holguin on 11-28-2022 MCV (RBC) [Entitic vol] 97.5 fL 80-94 [facility] Hematocrit Auto (Bld) [Volum e fraction]Ordered By: Hitesh Holguin on 11-28-2022 Hematocrit (Bld) [Volume fraction] 27.1 % 40-54 [facility] Laboratory - Hematology and Cell countsOrdered By: Hitesh Holguin on 11-28-2022 Erythrocyte distribution width (RBC) [Entitic vol] 48.7 fL 35.1-43.9 [facility] Erythrocyte distribution width (RBC) [Ratio] 13.6 % 11.6-14.6 [facility] MCH (RBC) [Entitic mass] 31.3 pg 27.0-32.0 [facility] MCHC Auto (RBC) [Mass/Vol]Or dered By: Hitesh Holguin on 11-28-2022 MCHC (RBC) [Mass/Vol] 32.1 g/dL 32-36 [facility] Platelets bldOrdered By: Jose A Holguin on 11-28-2022 Platelets (Bld) [#/Vol] 124 10*3/uL 150-450 [facility] Absolute lymphocyte countOrd ered By: Johnny Aguillon on 11-26-2022 Lymphocytes Auto (Unsp spec) [#/Vol] 0.63 10*3/uL 0.83-4.51 [facility] Basophil percentageOrdered B y: Johnny Aguillon on 11-26-2022 Basophils/100 WBC (Bld) 0.3 % 0-1 [facility] Eosinophils/100 WBC (Bld) 0.5 % 0-5 [facility] Neutrophils (Bld) [#/Vol] 5.0 10*3/uL 2.0-7.7 [facility] Neutrophils/100 WBC (Bld) 79.7 % 47-70 [facility] Basophil percentageOrdered B y: Hitesh Holguin on 11-26-2022 Chloride [Moles/Vol] 101 mmol/L 98-107 [facility] Glucose [Mass/Vol] 126 mg/dL 74-106 [facility] Comment on above: Fasting Glucose resu lt greater than or equal to 126 mg/dL suggests DIABETES MELLITUS per A.D.A. criteria. Potassium [Moles/Vol] 5.0 mmol/L 3.5-5.1 [facility] Sodium [Moles/Vol] 135 mmol/L 136-145 [facility] Blood lymphocytes/100 leukoc ytesOrdered By: Johnny Aguillon on 11-26-2022 Lymphocytes/100 WBC (Bld) 10.1 % 19-41 [facility] Blood monocytes/100 leukocyt esOrdered By: Johnny Aguillon on 11-26-2022 Monocytes/100 WBC (Bld) 8.6 % 0-10 [facility] Laboratory - Chemistry and C hemistry - challengeOrdered By: Hitesh Holguin on 11-26-2022 CO2 [Moles/Vol] 30.0 mmol/L 21.0-32.0 [facility] Urea nitrogen/Creatinine [Mass ratio] 26.9 mg/mg 10-20 [facility] Laboratory - Hematology and Cell countsOrdered By: Johnny Aguillon on 11-26-2022 Immature granulocytes/100 WBC (Bld) 0.800 % 0.0-0.9 [facility] Comment on above: IG% - Immature Granu locytes (promyelocytes, myelocytes and metamyelocytes) > 1% indicates that a LEFT SHIFT is Present. Nucleated RBC/100 WBC (Bld) [Ratio] 0 % 0-5 [facility] No Panel InformationOrdered By: Hitesh Holguin on 11-26-2022 Estimated GFR (MDRD) Amer 95 mL/min >60 [facility] Comment on above: GFR Calc Estimated GFR (MDRD) Non-Af Amer 78 mL/min >60 [facility] Comment on above: Non- GFR Calc Serum or plasma calcium renetta urement (mass/volume)Ordered By: Hitesh Holguin on 11-26-2022 Calcium [Mass/Vol] 8.1 mg/dL 8.5-10.1 [facility] Serum or plasma creatinine m easurement (mass/volume)Ordered By: Hitesh Holguin on 11-26-2022 Creatinine [Mass/Vol] 0.96 mg/dL 0.70-1.30 [facility] Comment on above: The validity of the calculated GFR & GFRAA in patients over 70 years has not been determined. Clinical correlation is essential. Serum or plasma urea nitroge n measurement (mass/volume)Ordered By: Hitesh Holguin on 11-26-2022 Urea nitrogen [Mass/Vol] 26 mg/dL 7-18 [facility] Thin prep Papanicolaou smear with manual screeningOrdered By: Hitesh Holguin on 11-26-2022 Thin prep Papanicolaou smear with manual screening 4 5-15 [facility] Basophil percentageOrdered B y: Hitesh Holguin on 11-25-2022 Bilirubin [Mass/Vol] 0.50 mg/dL 0.20-1.00 [facility] Comment on above: For patients on eltr ombopag therapy, use of Dimension [place] TBIL is not recommended. Protein [Mass/Vol] 6.5 g/dL 6.4-8.2 [facility] INR in Blood by Coagulation assayOrdered By: Emily Baltazar on 11-25-2022 INR Coag (Bld) [Relative time] 1.0 {INR} [facility] Laboratory - Chemistry and C hemistry - challengeOrdered By: Hitesh Holguin on 11-25-2022 ALP [Catalytic activity/Vol] 119 U/L 45-117 [facility] ALT [Catalytic activity/Vol] 17 U/L 16-61 [facility] Globulin (S) [Mass/Vol] 3.5 g/dL 2.2-4.2 [facility] Laboratory - CoagulationOrde red By: Emily Baltazar on 11-25-2022 aPTT Coag (Bld) [Time] 27.5 s 24.1-36.2 [facility] PT Coag (PPP) [Time] 12.7 s 11.7-14.9 [facility] No Panel InformationOrdered By: Hitesh Holguin on 11-25-2022 Vitamin D 25-Hydroxy 23.5 ng/mL [facility] Comment on above: Vitamin D 25(OH) Sta tus Range Deficiency <20 ng/mL (50nmol/L) Insufficiency 20 - 30 ng/mL (50 - 75 nmol/L) Sufficiency 30 - 100 ng/mL (75 - 250 nmol/L) Toxicity >100 ng/mL (>250 nmol/L) Serum or plasma albumin renetta urement (mass/volume)Ordered By: Hitesh Holguin on 11-25-2022 Albumin [Mass/Vol] 3.0 g/dL 3.2-5.0 [facility] Serum or plasma albumin/glob ulin mass ratioOrdered By: Hitesh Holguin on 11-25-2022 Albumin/Globulin [Mass ratio] 0.9 {ratio} 0.9-2.4 [facility] Thin prep Papanicolaou smear with manual screeningOrdered By: Hitesh Holguin on 11-25-2022 Thin prep Papanicolaou smear with manual screening 19 U/L 15-37 [facility] Culture, urineOrdered By: Dr Oscar Hollingsworth on 08-06-2022 Bacteria identified Cx Nom (U) Mixed Gram Pos & Gram Neg Org [facility] Culture, urineOrdered By: Tia Hollingsworth on 08-04-2022 Bacteria identified Cx Nom (U) Mixed Gram Pos & Gram Neg Org [facility] Absolute lymphocyte counton 02-23-2022 Lymphocytes Auto (Unsp spec) [#/Vol] 0.26 10*3/uL 0.83-4.51 [facility] Work Phone: Basophil percentageon 2021 Basophils/100 WBC (Bld) 0.4 % 0-1 [facility] Work Phone: Chloride [Moles/Vol] 100 mmol/L 98-107 [facility] Work Phone: Eosinophils/100 WBC (Bld) 0.0 % 0-5 [facility] Work Phone: Glucose [Mass/Vol] 108 mg/dL 74-106 [facility] Work Phone: Comment on above: Fasting Glucose resu lt from 100 to 125 mg/dL suggests IMPAIRED HOMEOSTASIS per A.D.A. criteria. Neutrophils (Bld) [#/Vol] 2.0 10*3/uL 2.0-7.7 [facility] Work Phone: Neutrophils/100 WBC (Bld) 76.1 % 47-70 [facility] Work Phone: Potassium [Moles/Vol] 4.4 mmol/L 3.5-5.1 [facility] Work Phone: Comment on above: Slight Hemolysis, Re sult may be falsely increased. Sodium [Moles/Vol] 135 mmol/L 136-145 [facility] Work Phone: WBC (Bld) [#/Vol] 2.7 10*3/uL 4.4-11.0 [facility] Work Phone: Blood erythrocytes count (nu mber/volume)on 02-23-2022 RBC (Bld) [#/Vol] 4.52 10*6/uL 4.6-6.2 [facility] Work Phone: Blood hemoglobin measurement (mass/volume)on 02-23-2022 Hemoglobin (Bld) [Mass/Vol] 14.0 g/dL 13.0-16.5 [facility] Work Phone: Blood lymphocytes/100 leukoc yteson 02-23-2022 Lymphocytes/100 WBC (Bld) 9.7 % 19-41 [facility] Work Phone: Blood manual differential co mment interpretation (narrative result)on 02-23-2022 Manual differential comment Haim (Bld) [Interp] SCANNED [facility] Work Phone: Comment on above: LYMPHOPENIA NOTED Blood monocytes/100 leukocyt eson 02-23-2022 Monocytes/100 WBC (Bld) 12.7 % 0-10 [facility] Work Phone: Blood platelet mean volumeon 02-23-2022 Platelet mean volume (Bld) [Entitic vol] 9.7 fL 6.2-12.0 [facility] Work Phone: Determination of erythrocyte mean corpuscular volume (MCV)on 02-23-2022 MCV (RBC) [Entitic vol] 94.7 fL 80-94 [facility] Work Phone: Hematocrit Auto (Bld) [Volum e fraction]on 02-23-2022 Hematocrit (Bld) [Volume fraction] 42.8 % 40-54 [facility] Work Phone: Laboratory - Chemistry and C hemistry - challengeon 02-23-2022 CO2 [Moles/Vol] 31.0 mmol/L 21.0-32.0 [facility] Work Phone: Urea nitrogen/Creatinine [Mass ratio] 15.8 mg/mg 10-20 [facility] Work Phone: Laboratory - Hematology and Cell countson 02-23-2022 Erythrocyte distribution width (RBC) [Entitic vol] 51.5 fL 35.1-43.9 [facility] Work Phone: Erythrocyte distribution width (RBC) [Ratio] 14.8 % 11.6-14.6 [facility] Work Phone: Immature granulocytes/100 WBC (Bld) 1.100 % 0.0-0.9 [facility] Work Phone: Comment on above: IG% - Immature Granu locytes (promyelocytes, myelocytes and metamyelocytes) > 1% indicates that a LEFT SHIFT is Present. MCH (RBC) [Entitic mass] 31.0 pg 27.0-32.0 [facility] Work Phone: Nucleated RBC/100 WBC (Bld) [Ratio] 0 % 0-5 [facility] Work Phone: MCHC Auto (RBC) [Mass/Vol]on 02-23-2022 MCHC (RBC) [Mass/Vol] 32.7 g/dL 32-36 [facility] Work Phone: [phone] No Panel Informationon 02-23 Estimated Creatinine Clearance Calc 40.29 ml/min [facility] Work Phone: Estimated GFR (MDRD) Amer 78 mL/min >60 [facility] Work Phone: Comment on above: GFR Calc Estimated GFR (MDRD) Non-Af Amer 65 mL/min >60 [facility] Work Phone: Comment on above: Non- GFR Calc Platelets bldon 02-23-2022 Platelets (Bld) [#/Vol] 153 10*3/uL 150-450 [facility] Work Phone: Review by pathologiston - Pathologist review Haim (Unsp spec) [Interp] Reviewed [facility] Work Phone: Comment on above: Previous reported re sult: Kamala pabon Edited by: RGOOD on 02/24/22:1303LeukopeniaClinical correlation necessary.Waqas Maldonado M.D. 02/24/22 AMENDED REPORT 02/24/22 1303 PATH REV previously reported as: Kamala pabon Serum or plasma calcium renetta urement (mass/volume)on 02-23-2022 Calcium [Mass/Vol] 8.3 mg/dL 8.5-10.1 [facility] Work Phone: Serum or plasma creatinine m easurement (mass/volume)on 02-23-2022 Creatinine [Mass/Vol] 1.14 mg/dL 0.70-1.30 [facility] Work Phone: Comment on above: The validity of the calculated GFR & GFRAA in patients over 70 years has not been determined. Clinical correlation is essential. Serum or plasma urea nitroge n measurement (mass/volume)on 02-23-2022 Urea nitrogen [Mass/Vol] 18 mg/dL 7-18 [facility] Work Phone: Thin prep Papanicolaou smear with manual screeningon 02-23-2022 Thin prep Papanicolaou smear with manual screening 4 5-15 [facility] Work Phone: No Panel Informationon 02-03 Prostate Specific Antigen Total 0.19 ng/mL 0.0-4.0 [facility] Work Phone: Comment on above: This test was perfor med using the TPSA assay method for theDimension chemistry system. Values obtained with differentassay methods cannot be used interchangably.When changing PSA assays in the course of monitoring apatient, additional sequential testing should be carriedout to confirm baseline values. No Panel Informationon 10-15 Prostate Specific Antigen Total 0.15 ng/mL 0.0-4.0 [facility] Work Phone: Comment on above: This test was perfor med using the TPSA assay method for theDimension chemistry system. Values obtained with differentassay methods cannot be used interchangably.When changing PSA assays in the course of monitoring apatient, additional sequential testing should be carriedout to confirm baseline values. Basophil percentageon 2021 Bilirubin [Mass/Vol] 0.40 mg/dL 0.20-1.00 [facility] Work Phone: Comment on above: For patients on eltr ombopag therapy, use of Dimension [place] TBIL is not recommended. Chloride [Moles/Vol] 103 mmol/L 98-107 [facility] Work Phone: Glucose [Mass/Vol] 94 mg/dL 74-106 [facility] Work Phone: Potassium [Moles/Vol] 4.2 mmol/L 3.5-5.1 [facility] Work Phone: Protein [Mass/Vol] 6.9 g/dL 6.4-8.2 [facility] Work Phone: Sodium [Moles/Vol] 137 mmol/L 136-145 [facility] Work Phone: Laboratory - Chemistry and C hemistry - challengeon 10-10-2021 ALP [Catalytic activity/Vol] 173 U/L 45-117 [facility] Work Phone: ALT [Catalytic activity/Vol] 14 U/L 16-61 [facility] Work Phone: CO2 [Moles/Vol] 31.0 mmol/L 21.0-32.0 [facility] Work Phone: Free T4 [Mass/Vol] 1.30 ng/dL 0.76-1.46 [facility] Work Phone: Globulin (S) [Mass/Vol] 3.8 g/dL 2.2-4.2 [facility] Work Phone: Urea nitrogen/Creatinine [Mass ratio] 12.4 mg/mg 10-20 [facility] Work Phone: No Panel Informationon 10-10 Estimated GFR (MDRD) Amer 95 mL/min >60 [facility] Work Phone: Comment on above: GFR Calc Estimated GFR (MDRD) Non-Af Amer 78 mL/min >60 [facility] Work Phone: Comment on above: Non- GFR Calc Free Triiodothyronine (T3) pg/dL 2.3 pg/mL 2.18-3.98 [facility] Work Phone: Thyroid Stimulating Hormone (TSH) 0.77 uIU/mL 0.358-3.74 [facility] Work Phone: Serum or plasma albumin renetta urement (mass/volume)on 10-10-2021 Albumin [Mass/Vol] 3.1 g/dL 3.2-5.0 [facility] Work Phone: Serum or plasma albumin/glob ulin mass ratioon 10-10-2021 Albumin/Globulin [Mass ratio] 0.8 {ratio} 0.9-2.4 [facility] Work Phone: Serum or plasma calcium renetta urement (mass/volume)on 10-10-2021 Calcium [Mass/Vol] 8.6 mg/dL 8.5-10.1 [facility] Work Phone: Serum or plasma creatinine m easurement (mass/volume)on 10-10-2021 Creatinine [Mass/Vol] 0.97 mg/dL 0.70-1.30 [facility] Work Phone: Comment on above: The validity of the calculated GFR & GFRAA in patients over 70 years has not been determined. Clinical correlation is essential. Serum or plasma urea nitroge n measurement (mass/volume)on 10-10-2021 Urea nitrogen [Mass/Vol] 12 mg/dL 7-18 [facility] Work Phone: Thin prep Papanicolaou smear with manual screeningon 10-10-2021 Thin prep Papanicolaou smear with manual screening 19 U/L 15-37 [facility] Work Phone: Thin prep Papanicolaou smear with manual screening 3 5-15 [facility] Work Phone: Thin prep Papanicolaou smear with manual screening 282 mOsm/KG 280-301 [facility] Work Phone: Basophil percentageon 2021 Basophil percentage 2.9 mg/dL 2.5-4.9 [facility] Work Phone: Chloride [Moles/Vol] 100 mmol/L 98-[address] [facility] [facility] Work Phone: Glucose [Mass/Vol] 89 mg/dL 74-[address] [facility] [facility] Work Phone: Potassium [Moles/Vol] 4.1 mmol[facility]L 3.5-5.1 [facility]: Sodium [Moles/Vol] 133 mmol/L 136-145 [facility] Work Phone: WBC (Bld) [#/Vol] 4.0 10*3/uL 4.4-11.0 [facility] Work Phone: Blood erythrocytes count (nu mber/volume)on 09-20-2021 RBC (Bld) [#/Vol] 2.84 10*6/uL 4.6-6.2 [facility] Work Phone: Blood hemoglobin measurement (mass/volume)on 09-20-2021 Hemoglobin (Bld) [Mass/Vol] 9.1 g/dL 13.0-16.5 [facility] Work Phone: Blood platelet mean volumeon 09-20-2021 Platelet mean volume (Bld) [Entitic vol] 8.3 fL 6.2-12.0 [facility] Work Phone: Determination of erythrocyte mean corpuscular volume (MCV)on 09-20-2021 MCV (RBC) [Entitic vol] 98.2 fL 80-94 [facility] Work Phone: Hematocrit Auto (Bld) [Volum e fraction]on 09-20-2021 Hematocrit (Bld) [Volume fraction] 27.9 % 40-54 [facility] Work Phone: Laboratory - Chemistry and C hemistry - challengeon 09-20-2021 CO2 [Moles/Vol] 27.0 mmol/L 21.0-32.0 [facility] Work Phone: Magnesium [Mass/Vol] 2.3 mg/dL 1.6-2.6 [facility] Work Phone: Urea nitrogen/Creatinine [Mass ratio] 28.3 mg/mg 10-20 [facility] Work Phone: Laboratory - Hematology and Cell countson 09-20-2021 Erythrocyte distribution width (RBC) [Entitic vol] 54.4 fL 35.1-43.9 [facility] Work Phone: Erythrocyte distribution width (RBC) [Ratio] 15.3 % 11.6-14.6 [facility] Work Phone: MCH (RBC) [Entitic mass] 32.0 pg 27.0-32.0 [facility] Work Phone: MCHC Auto (RBC) [Mass/Vol]on 09-20-2021 MCHC (RBC) [Mass/Vol] 32.6 g/dL 32-36 [facility] Work Phone: No Panel Informationon 09-20 Estimated Creatinine Clearance Calc 56.89 ml/min [facility] [facility] Work Phone: Estimated GFR (MDRD) Amer 110 mL/min >60 [facility] Work Phone: Comment on above: GFR Calc Estimated GFR (MDRD) Non-Af Amer 91 mL/min >60 [facility] Work Phone: Comment on above: Non- GFR Calc Platelets bldon 09-20-2021 Platelets (Bld) [#/Vol] 276 10*3/uL 150-450 [facility] Work Phone: Serum or plasma calcium renetta urement (mass/volume)on 09-20-2021 Calcium [Mass/Vol] 8.5 mg/dL 8.5-10.1 [facility] Work Phone: Serum or plasma creatinine m easurement (mass/volume)on 09-20-2021 Creatinine [Mass/Vol] 0.85 mg/dL 0.70-1.30 [facility] Work Phone: Comment on above: The validity of the calculated GFR & GFRAA in patients over 70 years has not been determined. Clinical correlation is essential. Serum or plasma urea nitroge n measurement (mass/volume)on 09-20-2021 Urea nitrogen [Mass/Vol] 24 mg/dL 7-18 [facility] Work Phone: Thin prep Papanicolaou smear with manual screeningon 09-20-2021 Thin prep Papanicolaou smear with manual screening 6 5-15 [facility] Work Phone: Basophil percentageon 2021 Basophil percentage 25-50 SEEN /hpf 0-5 [facility] Work Phone: Bilirubin Test strip Ql (U)o n 09-17-2021 Bilirubin Ql (U) Negative Negative [facility] Work Phone: Ketones Test strip Ql (U)on 09-17-2021 Ketones Ql (U) Negative Negative [facility] Work Phone: Mucus LM Ql (Urine sed)on Mucus Ql (Urine sed) 0 SEEN /hpf [facility] Work Phone: Nitrite Test strip Ql (U)on 09-17-2021 Nitrite Ql (U) Negative Negative [facility] Work Phone: Protein Test strip Ql (U)on 09-17-2021 Protein Ql (U) 100 mg/dl Negative [facility] Work Phone: Squamous epithelial cells de tection in urine sediment by light microscopyon 09-17-2021 Epithelial cells.squamous LM Ql (Urine sed) 0-5 SEEN /hpf 0-5 [facility] Work Phone: Urine blood detectionon - RBC Ql (U) 250 /ul Negative [facility] Work Phone: RBC Ql (U) 25-50 SEEN /hpf 0-5 [facility] Work Phone: Urine clarityon 09-17-2021 Clarity (U) Sl. Cloudy Clear [facility] Work Phone: Urine color determinationon 09-17-2021 Color (U) Yellow Yellow [facility] Work Phone: Urine glucose detectionon Glucose Ql (U) Normal mg/dl Normal [facility] Work Phone: Urine leukocyte esterase det ection by dipstickon 09-17-2021 Leukocyte esterase Test strip Ql (U) 500 /ul Negative [facility] Work Phone: Urine pHon 09-17-2021 pH (U) 6.0 [pH] 5.0 - 8.0 [facility] Work Phone: Urine sediment bacteria coun t by microscopy (number/high power field)on 09-17-2021 Bacteria LM.HPF (Urine sed) [#/Area] 1 /[HPF] None Seen [facility] Work Phone: Urine specific gravity measu rementon 09-17-2021 Specific gravity (U) [Rel density] 1.015 1.002-1.030 [facility] Work Phone: Urobilinogen Auto test strip Ql (U)on 09-17-2021 Urobilinogen Ql (U) Normal mg/dl Normal [facility] Work Phone: Absolute lymphocyte counton 09-13-2021 Lymphocytes Auto (Unsp spec) [#/Vol] 0.45 10*3/uL 0.83-4.51 [facility] Work Phone: Basophil percentageon 2021 Basophils/100 WBC (Bld) 0.5 % 0-1 [facility] Work Phone: Eosinophils/100 WBC (Bld) 4.1 % 0-5 [facility] Work Phone: [phone] Neutrophils (Bld) [#/Vol] 2.5 10*3/uL 2.0-7.7 [facility] Work Phone: Neutrophils/100 WBC (Bld) 68.4 % 47-70 [facility] Work Phone: Blood lymphocytes/100 leukoc yteson 09-13-2021 Lymphocytes/100 WBC (Bld) 12.3 % 19-41 [facility] Work Phone: Blood monocytes/100 leukocyt eson 09-13-2021 Monocytes/100 WBC (Bld) 12.0 % 0-10 [facility] Work Phone: Laboratory - Hematology and Cell countson 09-13-2021 Anisocytosis Ql (Bld) 1+ [facility] Work Phone: Immature granulocytes/100 WBC (Bld) 2.700 % 0.0-0.9 [facility] Work Phone: Comment on above: IG% - Immature Granu locytes (promyelocytes, myelocytes and metamyelocytes) > 1% indicates that a LEFT SHIFT is Present. Nucleated RBC/100 WBC (Bld) [Ratio] 0 % 0-5 [facility] Work Phone: Macrocytes detectionon 09-13 Macrocytes Ql (Bld) 1+ [facility] Work Phone: Review by pathologiston 08-28 Pathologist review Haim (Unsp spec) [Interp] Reviewed [facility] Work Phone: Comment on above: Previous reported re sult: Kamala pabon Edited by: RICHARD on 09/13/21:1355Leukopenia.Macrocytic anemia.Clinical correlation necessary.Waqas Maldonado M.D. 09/13/21 AMENDED REPORT 09/13/21 1355 PATH REV previously reported as: Kamala pabon No Panel Informationon 09-09 Miscellaneous Test See comment [facility] Work Phone: Comment on above: TEST RESULT LIMITSTh yroid AntibodiesThyroid Peroxidase (TPO) Ab < 8 IU/mL 0 - 34Thyroglobulin Antibody <1.0 IU/mL 0.0 - 0.9 Thyroglobulin Antibody measured by Álvaro Woodward Methodology TESTING PERFORMED AT [facility]. ORIGINAL REPORT ON FILE IN LAB CONTAINS ADDITIONAL TEST SITE INFORMATION. Amorphous sediment detection in urine sediment by light microscopyon 09-08-2021 Amorphous sediment LM Ql (Urine sed) RARE [facility] Work Phone: Basophil percentageon 2021 Bilirubin [Mass/Vol] 0.70 mg/dL 0.20-1.00 [facility] Work Phone: Comment on above: For patients on eltr ombopag therapy, use of Dimension [place] TBIL is not recommended. Protein [Mass/Vol] 5.5 g/dL 6.4-8.2 [facility] Work Phone: Laboratory - Chemistry and C hemistry - challengeon 09-08-2021 ALP [Catalytic activity/Vol] 93 U/L 45-117 [facility] Work Phone: ALT [Catalytic activity/Vol] 11 U/L 16-61 [facility] Work Phone: Free T4 [Mass/Vol] 1.74 ng/dL 0.76-1.46 [facility] Work Phone: Globulin (S) [Mass/Vol] 3.4 g/dL 2.2-4.2 [facility] Work Phone: Sodium (U) [Moles/Vol] 42 mmol/L Not Establ. [facility] Work Phone: No Panel Informationon 09-08 Thyroid Stimulating Hormone (TSH) 0.25 uIU/mL 0.358-3.74 [facility] Work Phone: Serum or plasma albumin renetta urement (mass/volume)on 09-08-2021 Albumin [Mass/Vol] 2.1 g/dL 3.2-5.0 [facility] Work Phone: Serum or plasma albumin/glob ulin mass ratioon 09-08-2021 Albumin/Globulin [Mass ratio] 0.6 {ratio} 0.9-2.4 [facility] Work Phone: Serum or plasma cortisol don surement (mass/volume)on 09-08-2021 Cortisol [Mass/Vol] 20.80 ug/dL 3.44-22.45 [facility] Work Phone: Comment on above: Adult (AM) 5.27 - 22 .45 ug/dL Adult (PM) 3.44 - 16.76 ug/dLPlease note revised CORTISOL reference range effective 2019. Thin prep Papanicolaou smear with manual screeningon 09-08-2021 Thin prep Papanicolaou smear with manual screening 26 U/L 15-37 [facility] Work Phone: Thin prep Papanicolaou smear with manual screening 267 mOsm/KG 280-301 [facility] Work Phone: Urine osmolality measurement on 09-08-2021 Osmolality (U) [Osmolality] 406 mOsm/KG >50 [facility] Work Phone: Comment on above: Normal Urine Referen ce Ranges Random: 50 - 1200 mOsm/kg H20 depending on fluid intake Random: >850 mOsm/kg after 12 hour fluid restriction 24 hour: ~300 - 900 mOsm/kg H2O Absolute lymphocyte counton 09-07-2021 Lymphocytes Auto (Unsp spec) [#/Vol] 0.40 10*3/uL 0.83-4.51 [facility] Work Phone: Basophil percentageon 2021 Basophils/100 WBC (Bld) 0.1 % 0-1 [facility] Work Phone: Chloride [Moles/Vol] 95 mmol/L 98-107 [facility] Work Phone: Eosinophils/100 WBC (Bld) 1.4 % 0-5 [facility] Work Phone: [phone] Glucose [Mass/Vol] 165 mg/dL 74-106 [facility] Work Phone: Comment on above: Fasting Glucose resu lt greater than or equal to 126 mg/dL suggests DIABETES MELLITUS per A.D.A. criteria. Neutrophils (Bld) [#/Vol] 6.2 10*3/uL 2.0-7.7 [facility] Work Phone: [phone] Neutrophils/100 WBC (Bld) 86.5 % 47-70 [facility] Work Phone: [phone] Potassium [Moles/Vol] 4.2 mmol/L 3.5-5.1 [facility] Work Phone: Sodium [Moles/Vol] 127 mmol/L 136-145 [facility] Work Phone: WBC (Bld) [#/Vol] 7.2 10*3/uL 4.4-11.0 [facility] Work Phone: Blood erythrocytes count (nu mber/volume)on 09-07-2021 RBC (Bld) [#/Vol] 2.66 10*6/uL 4.6-6.2 [facility] Work Phone: [phone] Blood hemoglobin measurement (mass/volume)on 09-07-2021 Hemoglobin (Bld) [Mass/Vol] 8.4 g/dL 13.0-16.5 [facility] Work Phone: [phone] Blood lymphocytes/100 leukoc yteson 09-07-2021 Lymphocytes/100 WBC (Bld) 5.5 % 19-41 [facility] Work Phone: Blood monocytes/100 leukocyt eson 09-07-2021 Monocytes/100 WBC (Bld) 5.4 % 0-10 [facility] Work Phone: [phone] Blood platelet adequacy dete ction by light microscopyon 09-07-2021 Platelets LM Ql (Bld) ADEQUATE ADEQ [facility] Work Phone: [phone] Blood platelet mean volumeon 09-07-2021 Platelet mean volume (Bld) [Entitic vol] 9.1 fL 6.2-12.0 [facility] Work Phone: Determination of erythrocyte mean corpuscular volume (MCV)on 09-07-2021 MCV (RBC) [Entitic vol] 93.6 fL 80-94 [facility] Work Phone: Hematocrit Auto (Bld) [Volum e fraction]on 09-07-2021 Hematocrit (Bld) [Volume fraction] 24.9 % 40-54 [facility] Work Phone: Laboratory - Chemistry and C hemistry - challengeon 09-07-2021 CO2 [Moles/Vol] 27.0 mmol/L 21.0-32.0 [facility] Work Phone: Urea nitrogen/Creatinine [Mass ratio] 16.7 mg/mg 10-20 [facility] Work Phone: Laboratory - Hematology and Cell countson 09-07-2021 Erythrocyte distribution width (RBC) [Entitic vol] 41.5 fL 35.1-43.9 [facility] Work Phone: Erythrocyte distribution width (RBC) [Ratio] 12.3 % 11.6-14.6 [facility] Work Phone: Immature granulocytes/100 WBC (Bld) 1.100 % 0.0-0.9 [facility] Work Phone: Comment on above: IG% - Immature Granu locytes (promyelocytes, myelocytes and metamyelocytes) > 1% indicates that a LEFT SHIFT is Present. MCH (RBC) [Entitic mass] 31.6 pg 27.0-32.0 [facility] Work Phone: Nucleated RBC/100 WBC (Bld) [Ratio] 0 % 0-5 [facility] Work Phone: MCHC Auto (RBC) [Mass/Vol]on 09-07-2021 MCHC (RBC) [Mass/Vol] 33.7 g/dL 32-[facility]: No Panel Informationon 09-07 Estimated Creatinine Clearance Calc 55.56 ml/min [facility] Work Phone: Estimated GFR (MDRD) Amer 112 mL/min >60 [facility] Work Phone: Comment on above: GFR Calc Estimated GFR (MDRD) Non-Af Amer 92 mL/min >60 [facility] Work Phone: Comment on above: Non- GFR Calc Platelets bldon 09-07-2021 Platelets (Bld) [#/Vol] 160 10*3/uL 150-450 [facility] Work Phone: RBC morphologyon 09-07-2021 RBC morphology finding Nom (Bld) NORM C+C NORMAL NORM C&C [facility] Work Phone: Serum or plasma calcium renetta urement (mass/volume)on 09-07-2021 Calcium [Mass/Vol] 7.8 mg/dL 8.5-10.1 [facility] Work Phone: Serum or plasma creatinine m easurement (mass/volume)on 09-07-2021 Creatinine [Mass/Vol] 0.84 mg/dL 0.70-1.30 [facility] Work Phone: Comment on above: The validity of the calculated GFR & GFRAA in patients over 70 years has not been determined. Clinical correlation is essential. Serum or plasma urea nitroge n measurement (mass/volume)on 09-07-2021 Urea nitrogen [Mass/Vol] 14 mg/dL 7-18 [facility] Work Phone: Thin prep Papanicolaou smear with manual screeningon 09-07-2021 Thin prep Papanicolaou smear with manual screening 5 5-15 [facility] Work Phone: Blood manual differential co mment interpretation (narrative result)on 09-06-2021 Manual differential comment Haim (Bld) [Interp] SCANNED [facility] Work Phone: Absolute lymphocyte counton 09-05-2021 Lymphocytes Auto (Unsp spec) [#/Vol] 0.66 10*3/uL 0.83-4.51 [facility] Work Phone: [phone] Basophil percentageon 2021 Bilirubin [Mass/Vol] 0.70 mg/dL 0.20-1.00 [facility] Work Phone: Comment on above: For patients on eltr ombopag therapy, use of Dimension [place] TBIL is not recommended. Protein [Mass/Vol] 6.4 g/dL 6.4-8.2 [facility] Work Phone: [phone] Basophils/100 WBC (Bld) 0.8 % 0-1 [facility] Work Phone: Bilirubin [Mass/Vol] 0.50 mg/dL 0.20-1.00 [facility] Work Phone: Comment on above: For patients on eltr ombopag therapy, use of Dimension [place] TBIL is not recommended. Chloride [Moles/Vol] 93 mmol/L 98-107 [facility] Work Phone: Eosinophils/100 WBC (Bld) 2.8 % 0-5 [facility] Work Phone: Glucose [Mass/Vol] 106 mg/dL 74-106 [facility] Work Phone: [phone] Comment on above: Fasting Glucose resu lt from 100 to 125 mg/dL suggests IMPAIRED HOMEOSTASIS per A.D.A. criteria. Neutrophils (Bld) [#/Vol] 3.6 10*3/uL 2.0-7.7 [facility] Work Phone: Neutrophils/100 WBC (Bld) 70.6 % 47-70 [facility] Work Phone: [phone] Potassium [Moles/Vol] 4.3 mmol/L 3.5-5.1 [facility] Work Phone: Protein [Mass/Vol] 6.8 g/dL 6.4-8.2 [facility] Work Phone: Sodium [Moles/Vol] 128 mmol/L 136-145 [facility] Work Phone: WBC (Bld) [#/Vol] 5.0 10*3/uL 4.4-11.0 [facility] Work Phone: Blood erythrocytes count (nu mber/volume)on 09-05-2021 RBC (Bld) [#/Vol] 4.16 10*6/uL 4.6-6.2 [facility] Work Phone: Blood hemoglobin measurement (mass/volume)on 09-05-2021 Hemoglobin (Bld) [Mass/Vol] 13.0 g/dL 13.0-16.5 [facility] Work Phone: Blood lymphocytes/100 leukoc yteson 09-05-2021 Lymphocytes/100 WBC (Bld) 13.1 % 19-41 [facility] Work Phone: Blood monocytes/100 leukocyt eson 09-05-2021 Monocytes/100 WBC (Bld) 9.1 % 0-10 [facility] Work Phone: Blood platelet mean volumeon 09-05-2021 Platelet mean volume (Bld) [Entitic vol] 8.3 fL 6.2-12.0 [facility] Work Phone: Determination of erythrocyte mean corpuscular volume (MCV)on 09-05-2021 MCV (RBC) [Entitic vol] 93.0 fL 80-94 [facility] Work Phone: Hematocrit Auto (Bld) [Volum e fraction]on 09-05-2021 Hematocrit (Bld) [Volume fraction] 38.7 % 40-54 [facility] Work Phone: INR in Blood by Coagulation assayon 09-05-2021 INR Coag (Bld) [Relative time] 1.0 {INR} [facility] Work Phone: Laboratory - Chemistry and C hemistry - challengeon 09-05-2021 ALP [Catalytic activity/Vol] 113 U/L 45-117 [facility] Work Phone: ALT [Catalytic activity/Vol] 28 U/L 16- [facility] Work Phone: Globulin (S) [Mass/Vol] 4.0 g/dL 2.2-4.2 [facility] Work Phone: ALP [Catalytic activity/Vol] 119 U/L 45-117 [facility] Work Phone: ALT [Catalytic activity/Vol] 30 U/L 16-61 [facility] Work Phone: CO2 [Moles/Vol] 29.0 mmol/L 21.0-32.0 [facility] Work Phone: Globulin (S) [Mass/Vol] 3.9 g/dL 2.2-4.2 [facility] Work Phone: Urea nitrogen/Creatinine [Mass ratio] 10.3 mg/mg 10-20 [facility] Work Phone: Laboratory - Coagulationon 0 09-05-2021 aPTT Coag (Bld) [Time] 26.0 s 24.1-36.2 [facility] Work Phone: PT Coag (PPP) [Time] 13.1 s 11.7-14.9 [facility] Work Phone: Laboratory - Hematology and Cell countson 09-05-2021 Erythrocyte distribution width (RBC) [Entitic vol] 41.3 fL 35.1-43.9 [facility] Work Phone: Erythrocyte distribution width (RBC) [Ratio] 12.1 % 11.6-14.6 [facility] Work Phone: Immature granulocytes/100 WBC (Bld) 3.600 % 0.0-0.9 [facility] Work Phone: Comment on above: IG% - Immature Granu locytes (promyelocytes, myelocytes and metamyelocytes) > 1% indicates that a LEFT SHIFT is Present. MCH (RBC) [Entitic mass] 31.3 pg 27.0-32.0 [facility] Work Phone: Nucleated RBC/100 WBC (Bld) [Ratio] 0 % 0-5 [facility] Work Phone: MCHC Auto (RBC) [Mass/Vol]on 09-05-2021 MCHC (RBC) [Mass/Vol] 33.6 g/dL 32-36 [facility] Work Phone: No Panel Informationon 09-05 Vitamin D 25-Hydroxy 35.4 ng/mL [facility] Work Phone: Comment on above: Vitamin D 25(OH) Sta tus Range Deficiency <20 ng/mL (50nmol/L) Insufficiency 20 - 30 ng/mL (50 - 75 nmol/L) Sufficiency 30 - 100 ng/mL (75 - 250 nmol/L) Toxicity >100 ng/mL (>250 nmol/L) Estimated Creatinine Clearance Calc 49.61 ml/min [facility] Work Phone: Estimated GFR (MDRD) Amer 94 mL/min >60 [facility] Work Phone: Comment on above: GFR Calc Estimated GFR (MDRD) Non-Af Amer 78 mL/min >60 [facility] Work Phone: Comment on above: Non- GFR Calc Platelets bldon 09-05-2021 Platelets (Bld) [#/Vol] 272 10*3/uL 150-450 [facility] Work Phone: Serum or plasma albumin renetta urement (mass/volume)on 09-05-2021 Albumin [Mass/Vol] 2.4 g/dL 3.2-5.0 [facility] Work Phone: Albumin [Mass/Vol] 2.9 g/dL 3.2-5.0 [facility] Work Phone: Serum or plasma albumin/glob ulin mass ratioon 09-05-2021 Albumin/Globulin [Mass ratio] 0.6 {ratio} 0.9-2.4 [facility] Work Phone: Albumin/Globulin [Mass ratio] 0.7 {ratio} 0.9-2.4 [facility] Work Phone: Serum or plasma calcium renetta urement (mass/volume)on 09-05-2021 Calcium [Mass/Vol] 8.6 mg/dL 8.5-10.1 [facility] Work Phone: Serum or plasma creatinine m easurement (mass/volume)on 09-05-2021 Creatinine [Mass/Vol] 0.97 mg/dL 0.70-1.30 [facility] Work Phone: Comment on above: The validity of the calculated GFR & GFRAA in patients over 70 years has not been determined. Clinical correlation is essential. Serum or plasma urea nitroge n measurement (mass/volume)on 09-05-2021 Urea nitrogen [Mass/Vol] 10 mg/dL 7-18 [facility] Work Phone: Thin prep Papanicolaou smear with manual screeningon 09-05-2021 Thin prep Papanicolaou smear with manual screening 25 U/L 15-37 [facility] Work Phone: Thin prep Papanicolaou smear with manual screening 22 U/L 1537 [facility] Work Phone: Thin prep Papanicolaou smear with manual screening 6 5-15 [facility] Work Phone: Absolute lymphocyte counton 08-26-2021 Lymphocytes Auto (Unsp spec) [#/Vol] 0.41 10*3/uL 0.83-4.51 [facility] Work Phone: Basophil percentageon 2021 Bilirubin [Mass/Vol] 0.70 mg/dL 0.20-1.00 [facility] Work Phone: Comment on above: For patients on eltr ombopag therapy, use of Dimension [place] TBIL is not recommended. Chloride [Moles/Vol] 93 mmol/L 98-107 [facility] Work Phone: Glucose [Mass/Vol] 124 mg/dL 74-106 [facility] Work Phone: Comment on above: Fasting Glucose resu lt from 100 to 125 mg/dL suggests IMPAIRED HOMEOSTASIS per A.D.A. criteria. Potassium [Moles/Vol] 4.0 mmol[facility]L [facility] Work [facility]: Protein [Mass/Vol] 6.9 g/dL 6.4-8.2 [facility] Work Phone: [phone] Sodium [Moles/Vol] 126 mmol/L 136-145 [facility] Work Phone: Basophils/100 WBC (Bld) 0.4 % 0-1 [facility] Work Phone: Eosinophils/100 WBC (Bld) 0.4 % 0-5 [facility] Work Phone: [phone] Neutrophils (Bld) [#/Vol] 4.3 10*3/uL 2.0-7.7 [facility] Work Phone: [phone] Neutrophils/100 WBC (Bld) 79.6 % 47-70 [facility] Work Phone: WBC (Bld) [#/Vol] 5.4 10*3/uL 4.4-11.0 [facility] Work Phone: Blood erythrocytes count (nu mber/volume)on 08-26-2021 RBC (Bld) [#/Vol] 4.52 10*6/uL 4.6-6.2 [facility] Work Phone: Blood hemoglobin measurement (mass/volume)on 08-26-2021 Hemoglobin (Bld) [Mass/Vol] 14.7 g/dL 13.0-16.5 [facility] Work Phone: Blood lymphocytes/100 leukoc yteson 08-26-2021 Lymphocytes/100 WBC (Bld) 7.6 % 19-41 [facility] Work Phone: Blood monocytes/100 leukocyt eson 08-26-2021 Monocytes/100 WBC (Bld) 10.7 % 0-10 [facility] Work Phone: Blood platelet mean volumeon 08-26-2021 Platelet mean volume (Bld) [Entitic vol] 9.8 fL 6.2-12.0 [facility] Work Phone: Determination of erythrocyte mean corpuscular volume (MCV)on 08-26-2021 MCV (RBC) [Entitic vol] 93.6 fL 80-94 [facility] Work Phone: Direct bilirubinon 2 Bilirubin.direct [Mass/Vol] 0.24 mg/dL 0.00-0.30 [facility] Work Phone: Hematocrit Auto (Bld) [Volum e fraction]on 08-26-2021 Hematocrit (Bld) [Volume fraction] 42.3 % 40-54 [facility] Work Phone: Laboratory - Chemistry and C hemistry - challengeon 08-26-2021 ALP [Catalytic activity/Vol] 116 U/L 45-117 [facility] Work Phone: ALT [Catalytic activity/Vol] 23 U/L 16-61 [facility] Work Phone: CO2 [Moles/Vol] 28.0 mmol/L 21.0-32.0 [facility] Work Phone: Globulin (S) [Mass/Vol] 4.2 g/dL 2.2-4.2 [facility] Work Phone: Urea nitrogen/Creatinine [Mass ratio] 16.8 mg/mg 10-20 [facility] Work Phone: Laboratory - Hematology and Cell countson 08-26-2021 Erythrocyte distribution width (RBC) [Entitic vol] 42.7 fL 35.1-43.9 [facility] Work Phone: Erythrocyte distribution width (RBC) [Ratio] 12.3 % 11.6-14.6 [facility] Work Phone: Immature granulocytes/100 WBC (Bld) 1.300 % 0.0-0.9 [facility] Work Phone: Comment on above: IG% - Immature Granu locytes (promyelocytes, myelocytes and metamyelocytes) > 1% indicates that a LEFT SHIFT is Present. MCH (RBC) [Entitic mass] 32.5 pg 27.0-32.0 [facility] Work Phone: Nucleated RBC/100 WBC (Bld) [Ratio] 0 % 0-5 [facility] Work Phone: MCHC Auto (RBC) [Mass/Vol]on 08-26-2021 MCHC (RBC) [Mass/Vol] 34.8 g/dL 32-36 [facility] Work Phone: No Panel Informationon 08-26 Estimated Creatinine Clearance Calc 56.36 ml/min [facility] Work Phone: Estimated GFR (MDRD) Amer 112 mL/min >60 [facility] Work Phone: Comment on above: GFR Calc Estimated GFR (MDRD) Non-Af Amer 93 mL/min >60 [facility] Work Phone: Comment on above: Non- GFR Calc SARS-CoV-2 & FLU Antigen (Rapid) [facility] Work Phone: Platelets bldon 08-26-2021 Platelets (Bld) [#/Vol] 159 10*3/uL 150-450 [facility] Work Phone: Serum or plasma albumin renetta urement (mass/volume)on 08-26-2021 Albumin [Mass/Vol] 2.7 g/dL 3.2-5.0 [facility] Work Phone: Serum or plasma calcium renetta urement (mass/volume)on 08-26-2021 Calcium [Mass/Vol] 8.5 mg/dL 8.5-10.1 [facility] Work Phone: Serum or plasma creatinine m easurement (mass/volume)on 08-26-2021 Creatinine [Mass/Vol] 0.83 mg/dL 0.70-1.30 [facility] Work Phone: Comment on above: The validity of the calculated GFR & GFRAA in patients over 70 years has not been determined. Clinical correlation is essential. Serum or plasma urea nitroge n measurement (mass/volume)on 08-26-2021 Urea nitrogen [Mass/Vol] 14 mg/dL 7-18 [facility] Work Phone: Thin prep Papanicolaou smear with manual screeningon 08-26-2021 Thin prep Papanicolaou smear with manual screening 23 U/L 15-37 [facility] Work Phone: Thin prep Papanicolaou smear with manual screening 5 5-15 [facility] Work Phone: No Panel Informationon 06-19 Prostate Specific Antigen Total 0.16 ng/mL 0.0-4.0 [facility] Work Phone: Comment on above: This test was perfor med using the TPSA assay method for [employer] chemistry system. Values obtained with differentassay methods cannot be used interchangably.When changing PSA assays in the course of monitoring apatient, additional sequential testing should be carriedout to confirm baseline values. Absolute lymphocyte counton 05-26-2021 Lymphocytes Auto (Unsp spec) [#/Vol] 0.25 10*3/uL 0.83-4.51 [facility] Work Phone: Basophil percentageon 2021 Basophils/100 WBC (Bld) 0.1 % 0-1 [facility] Work Phone: Chloride [Moles/Vol] 102 mmol/L 98-[address] [facility] Work Phone: Eosinophils/100 WBC (Bld) 0.3 % 0-5 [facility] Work Phone: Glucose [Mass/Vol] 118 mg/dL 74-106 [facility] Work Phone: Comment on above: Fasting Glucose resu lt from 100 to 125 mg/dL suggests IMPAIRED HOMEOSTASIS per A.D.A. criteria. Lactate [Moles/Vol] 1.1 mmol/L 0.4-2.0 [facility] Work Phone: Neutrophils (Bld) [#/Vol] 5.9 10*3/uL 2.0-7.7 [facility] Work Phone: Neutrophils/100 WBC (Bld) 88.7 % 47-70 [facility] Work Phone: Potassium [Moles/Vol] 4.0 mmol/L 3.5-5.1 [facility]: Sodium [Moles/Vol] 134 mmol/L 136-145 [facility] Work Phone: WBC (Bld) [#/Vol] 6.7 10*3/uL 4.4-11.0 [facility] Work Phone: Blood erythrocytes count (nu mber/volume)on 05-26-2021 RBC (Bld) [#/Vol] 4.40 10*6/uL 4.6-6.2 [facility] Work Phone: Blood hemoglobin measurement (mass/volume)on 05-26-2021 Hemoglobin (Bld) [Mass/Vol] 14.4 g/dL 13.0-16.5 [facility] Work Phone: Blood lymphocytes/100 leukoc yteson 05-26-2021 Lymphocytes/100 WBC (Bld) 3.7 % 19-41 [facility] Work Phone: Blood manual differential co mment interpretation (narrative result)on 05-26-2021 Manual differential comment Haim (Bld) [Interp] SCANNED [facility] Work Phone: Comment on above: LYMPHOPENIA NOTED Blood monocytes/100 leukocyt eson 05-26-2021 Monocytes/100 WBC (Bld) 6.0 % 0-10 [facility] Work Phone: Blood platelet mean volumeon 05-26-2021 Platelet mean volume (Bld) [Entitic vol] 9.6 fL 6.2-12.0 [facility] Work Phone: Determination of erythrocyte mean corpuscular volume (MCV)on 05-26-2021 MCV (RBC) [Entitic vol] 95.0 fL 80-94 [facility] Work Phone: Hematocrit Auto (Bld) [Volum e fraction]on 05-26-2021 Hematocrit (Bld) [Volume fraction] 41.8 % 40-54 [facility] Work Phone: Laboratory - Chemistry and C hemistry - challengeon 05-26-2021 CO2 [Moles/Vol] 25.0 mmol/L 21.0-32.0 [facility] Work Phone: Urea nitrogen/Creatinine [Mass ratio] 18.2 mg/mg 10-20 [facility] Work Phone: Laboratory - Hematology and Cell countson 05-26-2021 Erythrocyte distribution width (RBC) [Entitic vol] 43.8 fL 35.1-43.9 [facility] Work Phone: Erythrocyte distribution width (RBC) [Ratio] 12.5 % 11.6-14.6 [facility] Work Phone: Immature granulocytes/100 WBC (Bld) 1.200 % 0.0-0.9 [facility] Work Phone: Comment on above: IG% - Immature Granu locytes (promyelocytes, myelocytes and metamyelocytes) > 1% indicates that a LEFT SHIFT is Present. MCH (RBC) [Entitic mass] 32.7 pg 27.0-32.0 [facility] Work Phone: Nucleated RBC/100 WBC (Bld) [Ratio] 0 % 0-5 [facility] Work Phone: MCHC Auto (RBC) [Mass/Vol]on 05-26-2021 MCHC (RBC) [Mass/Vol] 34.4 g/dL 32-36 [facility] Work [facility]: No Panel Informationon 05-26 Estimated Creatinine Clearance Calc 42.52 ml/min [facility] Work Phone: Estimated GFR (MDRD) Amer 82 mL/min >60 [facility] Work Phone: Comment on above: GFR Calc Estimated GFR (MDRD) Non-Af Amer 68 mL/min >60 [facility] Work Phone: Comment on above: Non- GFR Calc Troponin I High Sensitivity 9 pg/mL 3.0-78.0 [facility] Work Phone: Comment on above: Please Note: [place] t Units and Gender Specific Reference Ranges. For more information see Policy Stat Procedure [place] High Sensitivity Troponin (TNIH) and attachments. SARS-CoV-2 Antigen (Rapid) [facility] Work Phone: Platelets bldon 05-26-2021 Platelets (Bld) [#/Vol] 146 10*3/uL 150-450 [facility] Work Phone: Serum or plasma calcium renetta urement (mass/volume)on 05-26-2021 Calcium [Mass/Vol] 8.7 mg/dL 8.5-10.1 [facility] Work Phone: Serum or plasma creatinine m easurement (mass/volume)on 05-26-2021 Creatinine [Mass/Vol] 1.10 mg/dL 0.70-1.30 [facility] Work Phone: Comment on above: The validity of the calculated GFR & GFRAA in patients over 70 years has not been determined. Clinical correlation is essential. Serum or plasma urea nitroge n measurement (mass/volume)on 05-26-2021 Urea nitrogen [Mass/Vol] 20 mg/dL 7-18 [facility] Work Phone: Thin prep Papanicolaou smear with manual screeningon 05-26-2021 Thin prep Papanicolaou smear with manual screening 7 5-15 [facility] Work Phone: CNPNon 05-01-2021 CNPN Telephone (FAMPWS) -------- ELIESER VILLEGAS ([id number]) 1935 M Date Time Provider Department 05/01/21 IGGY EGAN III During your visit today, we recorded the following information about you: Allergies As of Date: 05/01/2021 (No Known Allergies) Date Reviewed: 04/08/2019 Reviewed by: Jim Kevin LPN - Fully Assessed Reason for Visit: Patient Update [1234] Prescriptions as of 09/03/2021 - B cmplx 4/vit D3/C/folic/zinc (VITAL-D RX ORAL) Take by mouth once daily. 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 Heriberto Walters of endocrinology. Patient diagnosed with osteopenia. Recommendation was for referral to [facility] bone health program with Dr. Heriberto Walters of [place] endocrinology. Consult placed for endocrinology at [facility]. Please fax over consult. Phone number to the bone health program is [phone]. ASSESSMENT/PLAN: 1. Age-related osteoporosis without current pathological fracture - ICD9: 733.01, ICD10: M81.0 - CONSULT TO ENDOCRINOLOGY Heriberto Sheldon APRN.CNP, DNP [facility] Ene Golden 09/06/2020 1:58 PM Signed TC to pt. Spouse and pt stated they do not know what where this came from. Last appt. was 03/[address] Egan. Please check for correct pt. Ene Sheldon APRN.CNP, DNP 09/07/2020 7:29 AM Signed Team: Please verify that patient had a DEXA or bone scan at [facility]. My assumption is this report that was sent to Dr. Egan is the recommendation from the DEXA/bone scan that was completed at [facility]. Heriberto Sheldon APRN.CNP, DNP [facility] 09/07/2020 10:04 AM Signed Verified that patient had bone scan done- patient states he is not interested in a referral to the bone health program. [facility]ib[facility] Sheldon APRN.CNP, DNP 09/07/2020 3:56 PM Signed Noted. Heriberto Sheldon APRN.CNP, DNP Allergies As of Date: 09/06/2020 (No Known Allergies) Date Reviewed: 04/08/2019 Reviewed by: Jim Kevin LPN - Fully Assessed Reason for Visit: Results [95] Orders [681] Primary Visit Diagnosis:Age-related osteoporosis without current pathological fracture [M81.0] Order(s):CONSULT TO ENDOCRINOLOGY [9007] Order #: [id number]: 1 FUTURE Prescriptions as of 09/06/2020 Sig: VITAL-D RX ORAL Take by mouth once daily. 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 Johnny Shelton DO Work Phone: [facility] 09-14-2024 13:00-0400 Diastolic blood pressure 72 mm[Hg] Dr. Johnny Shelton DO Work Phone: [facility] 09-14-2024 13:00-0400 Heart rate 72 /min Dr. Johnny Shelton DO Work Phone: [facility] 09-14-2024 13:00-0400 Respiratory rate 16 /min Dr. Johnny Shelton DO Work Phone: [facility] 09-14-2024 13:00-0400 SaO2% (BldA) [Mass fraction] 99 % Dr. Johnny Shelton DO Work Phone: [facility] 09-14-2024 13:00-0400 Systolic blood pressure 128 mm[Hg] Dr. Johnny Shelton DO Work Phone: [facility] 09-14-2024 09:39-0400 Body height 175.[address] Johnny Shelton DO Work Phone: [facility] 09-14-2024 09:39-0400 Body mass index (BMI) [Ratio] 15.6 kg/m2 Dr. Johnny Shelton DO Work Phone: [facility] 09-14-2024 09:39-0400 Body weight 48.[address] Johnny Shelton DO Work Phone: [facility] 08-29-2024 15:18-0400 Body height 175.[address] Johnny Shelton DO Work Phone: [facility] 08-29-2024 15:18-0400 Body weight 52.[address] Johnny Shelton DO Work Phone: [facility] 08-29-2024 14:38-0400 Body mass index (BMI) [Ratio] 17.2 kg/m2 Dr. Johnny Shelton DO Work Phone: [facility] 08-29-2024 14:38-0400 Body temperature 98.2 [degF] Dr. Johnny Shelton DO Work Phone: [facility] 08-29-2024 14:38-0400 Diastolic blood pressure 81 mm[Hg] Dr. Johnny Shelton DO Work Phone: [facility] 08-29-2024 14:38-0400 Heart rate 84 /min Dr. Johnny Shelton DO Work Phone: [facility] 08-29-2024 14:38-0400 Respiratory rate 18 /min Dr. Johnny Shelton DO Work Phone: [facility] 08-29-2024 14:38-0400 Systolic blood pressure 116 mm[Hg] Dr. Johnny Shelton DO Work Phone: [facility] 08-01-2024 14:33-0400 Body mass index (BMI) [Ratio] 17.2 kg/m2 Dr. Johnny Shelton DO Work Phone: [facility] 08-01-2024 14:33-0400 Body temperature 97.3 [degF] Dr. Johnny Shelton DO Work Phone: [facility] 08-01-2024 14:33-0400 Diastolic blood pressure 51 mm[Hg] Dr. Johnny Shelton DO Work Phone: [facility] 08-01-2024 14:33-0400 Heart rate 90 /min Dr. Johnny Shelton DO Work Phone: [facility] 08-01-2024 14:33-0400 Respiratory rate 16 /min Dr. Johnny Shelton DO Work Phone: [facility] 08-01-2024 14:33-0400 Systolic blood pressure 120 mm[Hg] Dr. Johnny Shelton DO Work Phone: [facility] 07-28-2024 00:39-0400 Body weight 52.[address] Johnny Shelton DO Work Phone: [facility] 07-11-2024 14:41-0400 Body mass index (BMI) [Ratio] 17.2 kg/m2 Dr. Johnny Shelton DO Work Phone: [facility] 07-11-2024 14:41-0400 Diastolic blood pressure 70 mm[Hg] Dr. Johnny Shelton DO Work Phone: [facility] 07-11-2024 14:41-0400 Heart rate 97 /min Dr. Johnny Shelton DO Work Phone: [facility] 07-11-2024 14:41-0400 Respiratory rate 18 /min Dr. Johnny Shelton DO Work Phone: [facility] 07-11-2024 14:41-0400 Systolic blood pressure 132 mm[Hg] Dr. Johnny Shelton DO Work Phone: [facility] 06-29-2024 15:10-0400 Body temperature 96.8 [degF] Dr. Johnny Shelton DO Work Phone: [facility] 06-28-2024 00:52-0400 Body weight 52.[address] Johnny Shelton DO Work Phone: [facility] 06-08-2024 15:18-0400 Body mass index (BMI) [Ratio] 17.2 kg/m2 Dr. Johnny Shelton DO Work Phone: [facility] 06-08-2024 15:18-0400 Body temperature 98.3 [degF] Dr. Johnny Shelton DO Work Phone: [facility] 06-08-2024 15:18-0400 Diastolic blood pressure 67 mm[Hg] Dr. Johnny Shelton DO Work Phone: [facility] 06-08-2024 15:18-0400 Heart rate 91 /min Dr. Johnny Shelton DO Work Phone: [facility] 06-08-2024 15:18-0400 Respiratory rate 16 /min Dr. Johnny Shelton DO Work Phone: [facility] 06-08-2024 15:18-0400 Systolic blood pressure 127 mm[Hg] Dr. Johnny Shelton DO Work Phone: [facility] 05-28-2024 14:00-0500 Body weight 52.[address] Johnny Shelton DO Work Phone: [facility] 05-23-2024 09:28-0500 Body mass index (BMI) [Ratio] 17.2 kg/m2 Dr. Johnny Shelton DO Work Phone: [facility] 05-23-2024 09:28-0500 Body temperature 97.1 [degF] Dr. Johnny Shelton DO Work Phone: [facility] 05-23-2024 09:28-0500 Diastolic blood pressure 65 mm[Hg] Dr. Johnny Shelton DO Work Phone: [facility] 05-23-2024 09:28-0500 Heart rate 81 /min Dr. Johnny Shelton DO Work Phone: [facility] 05-23-2024 09:28-0500 Respiratory rate 16 /min Dr. Johnny Shelton DO Work Phone: [facility] 05-23-2024 09:28-0500 Systolic blood pressure 90 mm[Hg] Dr. Johnny Shelton DO Work Phone: [facility] 04-30-2024 01:33-0500 Body weight 52.[address] Johnny Shelton DO Work Phone: [facility] 03-31-2024 20:15-0500 Body temperature 98 [degF] Dr. Johnny Shelton DO Work Phone: [facility] 03-31-2024 20:15-0500 Diastolic blood pressure 81 mm[Hg] Dr. Johnny Shelton DO Work Phone: [facility] 03-31-2024 20:15-0500 Heart rate 90 /min Dr. Johnny Shelton DO Work Phone: [facility] 03-31-2024 20:15-0500 Respiratory rate 16 /min Dr. Johnny Shelton DO Work Phone: [facility] 03-31-2024 20:15-0500 SaO2% (BldA) [Mass fraction] 97 % Dr. Johnny Shelton DO Work Phone: [facility] 03-31-2024 20:15-0500 Systolic blood pressure 133 mm[Hg] Dr. Johnny Shelton DO Work Phone: [facility] 03-31-2024 16:12-0500 Body height 175.[address] Johnny Shelton DO Work Phone: [facility] 03-15-2024 05:43-0500 Body temperature 98.9 [degF] Dr. Johnny Shelton DO Work Phone: [facility] 03-15-2024 05:43-0500 Diastolic blood pressure 59 mm[Hg] Dr. Johnny Shelton DO Work Phone: [facility] 03-15-2024 05:43-0500 Heart rate 69 /min Dr. Johnny Shelton DO Work Phone: [facility] 03-15-2024 05:43-0500 Respiratory rate 17 /min Dr. Johnny Shelton DO Work Phone: [facility] 03-15-2024 05:43-0500 SaO2% (BldA) [Mass fraction] 97 % Dr. Johnny Shelton DO Work Phone: [facility] 03-15-2024 05:43-0500 Systolic blood pressure 98 mm[Hg] Dr. Johnny Shelton DO Work Phone: [facility] 03-15-2024 00:00-0500 Body mass index (BMI) [Ratio] 18 kg/m2 Dr. Johnny Shelton DO Work Phone: [facility] 03-15-2024 00:00-0500 Body weight 55.[address] Johnny Shelton DO Work Phone: [facility] 03-14-2024 22:30-0500 Inhaled oxygen flow rate 3 L/min Dr. Johnny Shelton DO Work Phone: [facility] 03-09-2024 15:12-0500 Body temperature 97.8 [degF] Dr. Johnny Shelton DO Work Phone: [facility] 03-09-2024 15:12-0500 Diastolic blood pressure 66 mm[Hg] Dr. Johnny Shelton DO Work Phone: [facility] 03-09-2024 15:12-0500 Heart rate 72 /min Dr. Johnny Shelton DO Work Phone: [facility] 03-09-2024 15:12-0500 Respiratory rate 16 /min Dr. Johnny Shelton DO Work Phone: [facility] 03-09-2024 15:12-0500 SaO2% (BldA) [Mass fraction] 98 % Dr. Johnny Shelton DO Work Phone: [facility] 03-09-2024 15:12-0500 Systolic blood pressure 108 mm[Hg] Dr. Johnny Shelton DO Work Phone: [facility] 03-09-2024 13:35-0500 Body weight 51.[address] Johnny Shelton DO Work Phone: [facility] 03-09-2024 05:59-0500 Body mass index (BMI) [Ratio] 16.7 kg/m2 Dr. Johnny Shelton DO Work Phone: [facility] 02-28-2024 00:57-0500 Body mass index (BMI) [Ratio] 17.2 kg/m2 Dr. Johnny Shelton DO Work Phone: [facility] 02-28-2024 00:57-0500 Body temperature 97.4 [degF] Dr. Johnny Shelton DO Work Phone: [facility] 02-28-2024 00:57-0500 Body weight 52.[address] Johnny Shelton DO Work Phone: [facility] 02-28-2024 00:57-0500 Diastolic blood pressure 42 mm[Hg] Dr. Johnny Shelton DO Work Phone: [facility] 02-28-2024 00:57-0500 Heart rate 78 /min Dr. Johnny Shelton DO Work Phone: [facility] 02-28-2024 00:57-0500 Respiratory rate 18 /min Dr. Johnny Shelton DO Work Phone: [facility] 02-28-2024 00:57-0500 Systolic blood pressure 92 mm[Hg] Dr. Johnny Shelton DO Work Phone: [facility] 04-14-2023 15:27-0500 Diastolic blood pressure 66 mm[Hg] Dr. Johnny Shelton Work Phone: [facility] 04-14-2023 15:27-0500 Heart rate 76 /min Dr. Johnny Shelton Work Phone: [facility] 04-14-2023 15:27-0500 Respiratory rate 16 /min Dr. Johnny Shelton Work Phone: [facility] 04-14-2023 15:27-0500 SaO2% (BldA) [Mass fraction] 95 % Dr. Johnny Shelton Work Phone: [facility] 04-14-2023 15:27-0500 Systolic blood pressure 136 mm[Hg] Dr. Johnny Shelton Work Phone: [facility] 04-14-2023 08:15-0500 Body temperature 98.2 [degF] Dr. Johnny Shelton Work Phone: [facility] 04-13-2023 11:45-0500 Body height 177.[address] Johnny Shelton Work Phone: [facility] 04-13-2023 11:45-0500 Body weight 54.[address] Johnny Shelton Work Phone: [facility] 04-10-2023 02:20-0500 Body mass index (BMI) [Ratio] 17.4 kg/m2 Dr. Johnny Shelton Work Phone: [facility] 04-10-2023 02:15-0500 Inhaled oxygen flow rate 2 L/min Dr. Johnny Shelton Work Phone: [facility] 04-10-2023 01:00-0500 Body temperature 98.9 [degF] Dr. Johnny Shelton Work Phone: [facility] 04-10-2023 01:00-0500 Diastolic blood pressure 67 mm[Hg] Dr. Johnny Shelton Work Phone: [facility] 04-10-2023 01:00-0500 Heart rate 68 /min Dr. Johnny Shelton Work Phone: [facility] 04-10-2023 01:00-0500 Inhaled oxygen flow rate 2 L/min Dr. Johnny Shelton Work Phone: [facility] 04-10-2023 01:00-0500 Respiratory rate 18 /min Dr. Johnny Shelton Work Phone: [facility] 04-10-2023 01:00-0500 SaO2% (BldA) [Mass fraction] 96 % Dr. Johnny Shelton Work Phone: [facility] 04-10-2023 01:00-0500 Systolic blood pressure 107 mm[Hg] Dr. Johnny Shelton Work Phone: [facility] 04-09-2023 21:03-0500 Body height 175.[address] Johnny Shelton Work Phone: [facility] 04-09-2023 21:03-0500 Body mass index (BMI) [Ratio] 18 kg/m2 Dr. Johnny Shelton Work Phone: [facility] 04-09-2023 21:03-0500 Body weight 55.[address] Johnny Shelton Work Phone: [facility] 03-08-2023 21:35-0500 Diastolic blood pressure 78 mm[Hg] Dr. Johnny Shelton Work Phone: [facility] 03-08-2023 21:35-0500 Heart rate 97 /min Dr. Johnny Shelton Work Phone: [facility] 03-08-2023 21:35-0500 Respiratory rate 18 /min Dr. Johnny Shelton Work Phone: [facility] 03-08-2023 21:35-0500 SaO2% (BldA) [Mass fraction] 95 % Dr. Johnny Shelton Work Phone: [facility] 03-08-2023 21:35-0500 Systolic blood pressure 165 mm[Hg] Dr. Johnny Shelton Work Phone: [facility] 03-08-2023 19:01-0500 Body height 175.[address] Johnny Shelton Work Phone: [facility] 03-08-2023 19:01-0500 Body mass index (BMI) [Ratio] 17.9 kg/m2 Dr. Johnny Shelton Work Phone: [facility] 03-08-2023 19:01-0500 Body temperature 98.1 [degF] Dr. Johnny Shelton Work Phone: [facility] 03-08-2023 19:01-0500 Body weight [address] Johnny Shelton Work Phone: [facility] 02-27-2023 00:49-0500 Body temperature 98 [degF] Dr. Johnny Shelton Work Phone: [facility] 02-27-2023 00:49-0500 Diastolic blood pressure 61 mm[Hg] Dr. Johnny Shelton Work Phone: [facility] 02-27-2023 00:49-0500 Heart rate 78 /min Dr. Johnny Shelton Work Phone: [facility] 02-27-2023 00:49-0500 Respiratory rate 18 /min Dr. Johnny Shelton Work Phone: [facility] 02-27-2023 00:49-0500 Systolic blood pressure 122 mm[Hg] Dr. Johnny Shelton Work Phone: [facility] 02-06-2023 08:58-0500 Body temperature 98 [degF] Dr. Johnny Shelton Work Phone: [facility] 02-06-2023 08:58-0500 Diastolic blood pressure 61 mm[Hg] Dr. Johnny Shelton Work Phone: [facility] 02-06-2023 08:58-0500 Heart rate 78 /min Dr. Johnny Shelton Work Phone: [facility] 02-06-2023 08:58-0500 Respiratory rate 18 /min Dr. Johnny Shelton Work Phone: [facility] 02-06-2023 08:58-0500 Systolic blood pressure 122 mm[Hg] Dr. Johnny Shelton Work Phone: [facility] 01-23-2023 08:58-0400 Body temperature 98 [degF] Dr. Johnny Shelton Work Phone: [facility] 01-23-2023 08:58-0400 Diastolic blood pressure 69 mm[Hg] Dr. Johnny Shelton Work Phone: [facility] 01-23-2023 08:58-0400 Heart rate 72 /min Dr. Johnny Shelton Work Phone: [facility] 01-23-2023 08:58-0400 Respiratory rate 18 /min Dr. Johnny Shelton Work Phone: [facility] 01-23-2023 08:58-0400 Systolic blood pressure 134 mm[Hg] Dr. Johnny Shelton Work Phone: [facility] 12-26-2022 09:29-0400 Body temperature 96.4 [degF] Dr. Johnny Shelton Work Phone: [facility] 12-26-2022 09:29-0400 Diastolic blood pressure 64 mm[Hg] Dr. Johnny Shelton Work Phone: [facility] 12-26-2022 09:29-0400 Heart rate 84 /min Dr. Johnny Shelton Work Phone: [facility] 12-26-2022 09:29-0400 Respiratory rate 18 /min Dr. Johnny Shelton Work Phone: [facility] 12-26-2022 09:29-0400 Systolic blood pressure 123 mm[Hg] Dr. Johnny Shelton Work Phone: [facility] 12-12-2022 12:28-0400 Body temperature 97.6 [degF] Dr. Johnny Shelton Work Phone: [facility] 12-12-2022 12:28-0400 Diastolic blood pressure 56 mm[Hg] Dr. Johnny Shelton Work Phone: [facility] 12-12-2022 12:28-0400 Heart rate 74 /min Dr. Johnny Shelton Work Phone: [facility] 12-12-2022 12:28-0400 Respiratory rate 18 /min Dr. Johnny Shelton Work Phone: [facility] 12-12-2022 12:28-0400 SaO2% (BldA) [Mass fraction] 95 % Dr. Johnny Shelton Work Phone: [facility] 12-12-2022 12:28-0400 Systolic blood pressure 124 mm[Hg] Dr. Johnny Shelton Work Phone: [facility] 12-08-2022 15:06-0400 Body height [address] Johnny Shelton Work Phone: [facility] 12-08-2022 15:06-0400 Body weight 57.[address] Johnny Sheltno Work Phone: [facility] 12-08-2022 11:13-0400 Body mass index (BMI) [Ratio] 18.1 kg/m2 Dr. Johnny Shelton Work Phone: [facility] 11-28-2022 12:21-0400 Body temperature 98.6 [degF] Dr. Johnny Shelton Work Phone: [facility] 11-28-2022 12:21-0400 Heart rate 82 /min Dr. Johnny Shelton Work Phone: [facility] 11-28-2022 12:21-0400 Respiratory rate 18 /min Dr. Johnny Shelton Work Phone: [facility] 11-28-2022 12:21-0400 SaO2% (BldA) [Mass fraction] 93 % Dr. Johnny Shelton Work Phone: [facility] 11-28-2022 09:40-0400 Diastolic blood pressure 59 mm[Hg] Dr. Johnny Shelton Work Phone: [facility] 11-28-2022 09:40-0400 Systolic blood pressure 117 mm[Hg] Dr. Johnny Sheltno Work Phone: [facility] 11-28-2022 06:53-0400 Body weight 61.[address] Johnny Shelton Work Phone: [facility] 11-25-2022 08:25-0400 Body height 177.[address] Johnny Shelton Work Phone: [facility] 10-08-2022 13:10-0400 Diastolic blood pressure 64 mm[Hg] [facility] 10-08-2022 13:10-0400 Heart rate 70 /min [facility] 10-08-2022 13:10-0400 Respiratory rate 16 /min [facility] 10-08-2022 13:10-0400 SaO2% (BldA) [Mass fraction] 97 % [facility] 10-08-2022 13:10-0400 Systolic blood pressure 130 mm[Hg] [facility] 10-08-2022 12:07-0400 Body temperature 97.6 [degF] [facility] 10-08-2022 09:58-0400 Body height 172.72 cm [facility] 10-08-2022 09:58-0400 Body mass index (BMI) [Ratio] 18.4 kg/m2 [facility] 10-08-2022 09:58-0400 Body weight 55 kg [facility] 02-23-2022 19:52-0500 Body temperature 98.9 [degF] [facility] Work Phone: 02-23-2022 19:52-0500 Diastolic blood pressure 90 mm[Hg] [facility] Work Phone: 02-23-2022 19:52-0500 Heart rate 92 /min [facility] Work Phone: 02-23-2022 19:52-0500 Respiratory rate 18 /min [facility] Work Phone: 02-23-2022 19:52-0500 SaO2% (BldA) [Mass fraction] 93 % [facility] Work Phone: 02-23-2022 19:52-0500 Systolic blood pressure 119 mm[Hg] [facility] Work Phone: 02-23-2022 17:32-0500 Body height 180.34 cm [facility] Work Phone: 02-23-2022 17:32-0500 Body mass index (BMI) [Ratio] 18.8 kg/m2 [facility] Work Phone: 02-23-2022 17:32-0500 Body weight 61.23 kg [facility] Work Phone: 10-03-2021 16:08-0400 Body height 177.8 cm No Primary Care Physician [facility] Work Phone: 10-03-2021 16:08-0400 Body mass index (BMI) [Ratio] 18.6 kg/m2 No Primary Care Physician [facility] Work Phone: 10-03-2021 16:08-0400 Body temperature 96.3 [degF] No Primary Care Physician [facility] Work Phone: 10-03-2021 16:08-0400 Body weight 58.68 kg No Primary Care Physician [facility] Work Phone: 10-03-2021 16:08-0400 Diastolic blood pressure 60 mm[Hg] No Primary Care Physician [facility] Work Phone: 10-03-2021 16:08-0400 Heart rate 96 /min No Primary Care Physician [facility] Work Phone: 10-03-2021 16:08-0400 Respiratory rate 18 /min No Primary Care Physician [facility] Work Phone: 10-03-2021 16:08-0400 SaO2% (BldA) [Mass fraction] 93 % No Primary Care Physician [facility] Work Phone: 10-03-2021 16:08-0400 Systolic blood pressure 132 mm[Hg] No Primary Care Physician [facility] Work Phone: 10-02-2021 08:10-0400 Diastolic blood pressure 63 mm[Hg] No Primary Care Physician [facility] Work Phone: 10-02-2021 08:10-0400 Heart rate 69 /min No Primary Care Physician [facility] Work Phone: 10-02-2021 08:10-0400 Respiratory rate 16 /min No Primary Care Physician [facility] Work Phone: 10-02-2021 08:10-0400 SaO2% (BldA) [Mass fraction] 95 % No Primary Care Physician [facility] Work Phone: 10-02-2021 08:10-0400 Systolic blood pressure 108 mm[Hg] No Primary Care Physician [facility] Work Phone: 10-02-2021 08:00-0400 Body temperature 97.9 [degF] No Primary Care Physician [facility] Work Phone: 10-02-2021 06:39-0400 Body height 177.8 cm No Primary Care Physician [facility] Work Phone: 10-02-2021 06:39-0400 Body mass index (BMI) [Ratio] 19.5 kg/m2 No Primary Care Physician [facility] Work Phone: 10-02-2021 06:39-0400 Body weight 62 kg No Primary Care Physician [facility] Work Phone: 09-21-2021 10:07-0400 Respiratory rate 16 /min No Primary Care Physician [facility] Work Phone: 09-21-2021 10:00-0400 Body temperature 97.3 [degF] No Primary Care Physician [facility] Work Phone: 09-21-2021 10:00-0400 Diastolic blood pressure 67 mm[Hg] No Primary Care Physician [facility] Work Phone: 09-21-2021 10:00-0400 Heart rate 66 /min No Primary Care Physician [facility] Work Phone: 09-21-2021 10:00-0400 SaO2% (BldA) [Mass fraction] 97 % No Primary Care Physician [facility] Work Phone: 09-21-2021 10:00-0400 Systolic blood pressure 129 mm[Hg] No Primary Care Physician [facility] Work Phone: 09-20-2021 06:00-0400 Body weight 61.6 kg No Primary Care Physician [facility] Work Phone: 09-19-2021 15:31-0400 Body height 177.8 cm No Primary Care Physician [facility] Work Phone: 09-07-2021 14:31-0400 Body mass index (BMI) [Ratio] 19.3 kg/m2 No Primary Care Physician [facility] Work Phone: 09-07-2021 07:25-0400 Body temperature 98.5 [degF] No Primary Care Physician [facility] Work Phone: 09-07-2021 07:25-0400 Diastolic blood pressure 61 mm[Hg] No Primary Care Physician [facility] Work Phone: 09-07-2021 07:25-0400 Heart rate 92 /min No Primary Care Physician [facility] Work Phone: 09-07-2021 07:25-0400 Respiratory rate 18 /min No Primary Care Physician [facility] Work Phone: 09-07-2021 07:25-0400 SaO2% (BldA) [Mass fraction] 100 % No Primary Care Physician [facility] Work Phone: 09-07-2021 07:25-0400 Systolic blood pressure 114 mm[Hg] No Primary Care Physician [facility] Work Phone: 09-07-2021 06:00-0400 Inhaled oxygen flow rate 2 L/min No Primary Care Physician [facility] Work Phone: 09-05-2021 13:34-0400 Body height 177.8 cm No Primary Care Physician [facility] Work Phone: 09-05-2021 13:34-0400 Body weight 61.1 kg No Primary Care Physician [facility] Work Phone: 09-05-2021 10:44-0400 Body mass index (BMI) [Ratio] 19.3 kg/m2 No Primary Care Physician [facility] Work Phone: 09-05-2021 02:59-0400 Body temperature 98 [degF] [facility] Work Phone: 09-05-2021 02:59-0400 Diastolic blood pressure 73 mm[Hg] [facility] Work Phone: 09-05-2021 02:59-0400 Heart rate 82 /min [facility] Work Phone: 09-05-2021 02:59-0400 Respiratory rate 17 /min [facility] Work Phone: 09-05-2021 02:59-0400 SaO2% (BldA) [Mass fraction] 94 % [facility] Work Phone: 09-05-2021 02:59-0400 Systolic blood pressure 122 mm[Hg] [facility] Work Phone: 09-05-2021 01:14-0400 Body height 177.8 cm [facility] Work Phone: 09-05-2021 01:14-0400 Body mass index (BMI) [Ratio] 19.9 kg/m2 [facility] Work Phone: 09-05-2021 01:14-0400 Body weight 63 kg [facility] Work Phone: 08-26-2021 14:52-0400 Body temperature 98 [degF] [facility] Work Phone: 08-26-2021 14:52-0400 Diastolic blood pressure 71 mm[Hg] [facility] Work Phone: 08-26-2021 14:52-0400 Heart rate 94 /min [facility] Work Phone: 08-26-2021 14:52-0400 Respiratory rate 22 /min [facility] Work Phone: 08-26-2021 14:52-0400 SaO2% (BldA) [Mass fraction] 92 % [facility] Work Phone: 08-26-2021 14:52-0400 Systolic blood pressure 120 mm[Hg] [facility] Work Phone: 08-26-2021 10:32-0400 Body height 177.8 cm [facility] Work Phone: 08-26-2021 10:32-0400 Body mass index (BMI) [Ratio] 19.3 kg/m2 [facility] Work Phone: 08-26-2021 10:32-0400 Body weight 61.23 kg [facility] Work Phone: 05-26-2021 21:55-0500 Diastolic blood pressure 67 mm[Hg] No Primary Care Physician [facility] Work Phone: 05-26-2021 21:55-0500 Heart rate 92 /min No Primary Care Physician [facility] Work Phone: 05-26-2021 21:55-0500 Respiratory rate 22 /min No Primary Care Physician [facility] Work Phone: 05-26-2021 21:55-0500 SaO2% (BldA) [Mass fraction] 97 % No Primary Care Physician [facility] Work Phone: 05-26-2021 21:55-0500 Systolic blood pressure 133 mm[Hg] No Primary Care Physician [facility] Work Phone: 05-26-2021 20:55-0500 Diastolic blood pressure 67 mm[Hg] [facility] Work Phone: 05-26-2021 20:55-0500 Heart rate 92 /min [facility] Work Phone: 05-26-2021 20:55-0500 Respiratory rate 22 /min [facility] Work Phone: 05-26-2021 20:55-0500 SaO2% (BldA) [Mass fraction] 97 % [facility] Work Phone: 05-26-2021 20:55-0500 Systolic blood pressure 133 mm[Hg] [facility] Work Phone: 05-26-2021 18:21-0500 Body mass index (BMI) [Ratio] 19.3 kg/m2 No Primary Care Physician [facility] Work Phone: 05-26-2021 18:21-0500 Body temperature 99 [degF] No Primary Care Physician [facility] Work Phone: 05-26-2021 18:21-0500 Body weight 61.23 kg No Primary Care Physician [facility] Work Phone: 05-26-2021 17:21-0500 Body height 177.8 cm [facility] Work Phone: 05-26-2021 17:21-0500 Body mass index (BMI) [Ratio] 19.3 kg/m2 [facility] Work Phone: 05-26-2021 17:21-0500 Body temperature 99 [degF] [facility] Work Phone: 05-26-2021 17:21-0500 Body weight 61.23 kg [facility] Work Phone: 02-28-2021 15:02-0500 Body temperature 97.9 [degF] Hakeem Perez DPM Work Phone: [facility] 02-28-2021 15:02-0500 Diastolic blood pressure 74 mm[Hg] Hakeem Perez DPM Work Phone: [facility] 02-28-2021 15:02-0500 Heart rate 84 /min Hakeem Perez DPM Work Phone: [facility] 02-28-2021 15:02-0500 Systolic blood pressure 133 mm[Hg] Hakeem Perez DPM Work Phone: [facility] 11-29-2020 15:13-0400 Body height 177.8 cm Hakeem Perez DPM Work Phone: [facility] 11-29-2020 15:13-0400 Body mass index (BMI) [Ratio] 19.37 kg/m2 Hakeem Perez DPM Work Phone: [facility] 11-29-2020 15:13-0400 Body temperature 97.81 [degF] Hakeem Perez DPM Work Phone: [facility] 11-29-2020 15:13-0400 Body weight 61.24 kg Hakeem Perez DPM Work Phone: [facility] 11-29-2020 15:13-0400 Diastolic blood pressure 57 mm[Hg] Hakeem Manzanomerman DPM Work Phone: [facility] 11-29-2020 15:13-0400 Heart rate 83 /min Hakeem Perez DPM Work Phone: [facility] 11-29-2020 15:13-0400 Systolic blood pressure 124 mm[Hg] Hakeem Perez DPM Work Phone: [facility] 06-28-2020 14:59-0400 Body height 177.8 cm Hakeem Perez DPM Work Phone: [facility] 06-28-2020 14:59-0400 Body mass index (BMI) [Ratio] 19.37 kg/m2 Hakeem Perez DPM Work Phone: [facility] 06-28-2020 14:59-0400 Body weight 61.24 kg Hakeem Perez DPM Work Phone: [facility] 06-28-2020 14:59-0400 Diastolic blood pressure 72 mm[Hg] Hakeem Perez DPM Work Phone: [facility] 06-28-2020 14:59-0400 Systolic blood pressure 137 mm[Hg] Hakeem Perez DPM Work Phone: [facility] Encounters Encounter Date Encounter Type Care Provider Facility Start: 09-14-2024 End: 09-14-2024 Admission to same day surgery center Dr. Gildardo Hollingsworth MD -Surgical Day Care Start: 09-14-2024 End: 09-14-[address] Johnny Shelton DO Work Phone: [facility] Work Phone: Start: 09-14-2024 ambulatory Johnny Shelton Facility: [facility] Start: 08-30-2024 End: 08-30-[address] Johnny Shelton DO Work Phone: [facility] Work Phone: Start: 08-30-2024 End: 08-30-2024 Patient encounter procedure Zayda Montero -Laboratory Work Phone: Start: 08-29-2024 Non-patient / Non-visit Dr. Gabriel alves MD -[facility] Start: 08-29-[address] Gabriel mesa MD -[facility] [place] Work Phone: Start: 08-29-2024 End: 08-30-2024 ambulatory [facility] Facility:[facility] Start: 08-02-2024 Non-patient / Non-visit Dr. Gabriel alves MD -[facility] Start: 08-01-2024 End: 08-27-[address] Gabriel Roque MD -[facility] Work Phone: Start: 08-01-2024 End: 08-27-[address] Johnny Shelton DO Work Phone: [facility] Work Phone: Start: 08-01-2024 Non-patient / Non-visit Dr. Gabriel alves MD -[facility] Start: 07-11-2024 Non-patient / Non-visit Dr. Gabriel alves MD [facility] Start: 07-11-2024 End: 07-27-2024 ambulatory [facility] Facility:[facility] Start: 07-11-2024 End: 07-27-[address] Gabriel Roque MD -Wound He[facility] Work Phone: Start: 06-08-2024 Non-patient / Non-visit Marine Hubbard [facility] Start: 06-08-2024 End: 06-27-[address] 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 Franki Alexander MD -[facility] Start: 05-23-2024 ambulatory [facility] Facility: [facility] Start: 05-23-2024 Non-patient / Non-visit Marine Hubbard NP-C -[facility] Start: 05-23-2024 End: 05-27-2024 ambulatory [facility] Facility:[facility] Start: 05-23-2024 End: 05-27-2024 Discharged Recurring Marine ARTIS -Wound Healing Center Work Phone: Start: 05-09-2024 ambulatory [facility] Facility: [facility] Start: 05-09-2024 Non-patient / Non-visit Marine MANNC -[facility] Start: 04-06-2024 End: 04-29-[address] Pascual Shelby MD -Wound Healing Center Work Phone: Start: 04-06-2024 End: 04-29-2024 [facility] Facility:[facility] Start: 03-31-2024 End: 03-31-2024 Emergency department patient visit Dr. Raphael Dee DO -Emergency Department Work Phone: Start: 03-14-2024 End: 03-15-2024 Emergency department patient visit Dr. Vitaliy Yañez -Emergency Department Work Phone: Start: 03-09-2024 Non-patient / Non-visit Dr. Kelsey Langley MD -[place] [facility] Work Phone: Start: 03-09-2024 ambulatory Tiff Langley Facility :[facility] Start: 03-09-2024 End: 03-09-2024 Evaluation and management of inpatient Dr. Lucius Ulloa DO -Progressive Care Unit Work Phone: Start: 02-24-2024 End: 02-27-2024 ambulatory [facility] Facility:[facility] Start: 02-10-2024 End: 02-10-2024 Emergency department patient visit [facility] Facility:[facility] Start: 02-03-2024 End: 02-03-2024 ambulatory [facility] Facility:[facility] Start: 01-31-2024 End: 01-31-2024 Emergency department patient visit Johnny Shelton Facility:[facility] Start: 12-15-2023 End: 12-15-2023 ambulatory Johnny Shelton Facility:[facility] Start: 11-07-2023 End: 11-07-2023 ambulatory Johnny Cat Facility:[facility] Start: 07-27-2023 End: 07-27-[address] Johnny Shelton Work Phone: [facility] Work Phone: Start: 07-27-2023 End: 07-27-[address] Johnny Shelton Work Phone: [facility], [facility] Work Phone: Start: 06-30-2023 End: 06-30-[address] Johnny Shelton Work Phone: [facility] Work Phone: Start: 06-30-2023 End: 06-30-[address] Johnny Shelton Work Phone: [facility]-Laboratory Work Phone: Start: 05-05-2023 End: 05-05-[address] Johnny Shelton Work Phone: [facility] Work Phone: Start: 05-05-2023 End: 05-05-[address] Johnny Shelton Work Phone: [facility]-Laboratory Work Phone: Start: 04-14-2023 Non-patient / Non-visit Dr. Janet Shelton Work Phone: [facility] [facility] Work Phone: Start: 04-13-2023 Non-patient / Non-visit Dr. Janet Shelton Work Phone: [facility] [facility] Work Phone: Start: 04-12-2023 Non-patient / Non-visit Dr. Janet Shelton Work Phone: [facility] Work Phone: Start: 04-11-2023 Non-patient / Non-visit Dr. Janet Shelton Work Phone: [facility] Work Phone: Start: 04-10-2023 Non-patient / Non-visit Dr. Janet Shelton Work Phone: [facility] Work Phone: Start: 04-09-2023 End: 04-14-2023 Evaluation and management of inpatient Dr. Johnny Shelton Work Phone: [facility]-Medical Surgical 2 Work Phone: Start: 03-16-2023 End: 03-16-[address] Johnny Shelton Work Phone: [facility] Work Phone: Start: 03-16-2023 End: 03-16-[address] Johnny Shelton Work Phone: [facility]-Laboratory Work Phone: Start: 03-08-2023 End: 03-08-2023 Emergency department patient visit Dr. Johnny Shelton Work Phone: [facility]-Emergency Department Work Phone: Start: 03-05-2023 End: 03-05-[address] Johnny Shelton Work Phone: [facility] Work Phone: Start: 03-05-2023 End: 03-05-[address] Johnny Shelton Work Phone: [facility]-Pulmonary Services/Neurology Work Phone: Start: 02-27-2023 End: 03-29-[address] Johnny Shelton Work Phone: [facility] Work Phone: Start: 02-27-[address] Johnny Shelton Work Phone: [facility] Work Phone: Start: 02-06-2023 End: 02-26-[address] Johnny Shelton Work Phone: [facility] Work Phone: Start: 02-06-2023 End: 02-26-[address] Johnny Shelton Work Phone: [facility] Work Phone: Start: 01-23-2023 End: 01-27-[address] Johnny Shelton Work Phone: [facility] Work Phone: Start: 12-26-2022 End: 12-27-[address] Johnny Shelton Work Phone: [facility] Work Phone: Start: 12-26-2022 End: 12-27-[address] Johnny Shelton Work Phone: [facility] Work Phone: Start: 12-11-2022 Non-patient / Non-visit Dr. Janet Shelton Work Phone: [facility] Work Phone: Start: 12-09-2022 Non-patient / Non-visit Dr. Janet Shelton Work Phone: [facility] Work Phone: Start: 12-08-2022 Non-patient / Non-visit Dr. Janet Shelton Work Phone: [facility] Work Phone: Start: 12-04-2022 Non-patient / Non-visit Dr. Janet Shelton Work Phone: [facility] Work Phone: Start: 12-03-2022 Non-patient / Non-visit Dr. Janet Shelton Work Phone: [facility] Work Phone: Start: 12-02-2022 Non-patient / Non-visit Dr. Janet Shelton Work Phone: [facility] Work Phone: Start: 11-29-2022 Non-patient / Non-visit Dr. Janet Shelton Work Phone: [facility] Work Phone: Start: 11-28-2022 End: 12-12-2022 Evaluation and management of inpatient Dr. Johnny Shelton Work Phone: [facility]-Rehab Unit Work Phone: Start: 11-28-2022 Non-patient / Non-visit Dr. Janet Shelton Work Phone: [facility] Work Phone: Start: 11-26-2022 Non-patient / Non-visit Dr. Janet Shelton Work Phone: [facility] Work Phone: Start: 11-25-2022 End: 11-28-2022 Evaluation and management of inpatient Dr. Johnny Shelton Work Phone: [facility]-Medical Surgical 3 Work Phone: Start: 11-25-2022 Non-patient / Non-visit Dr. Janet Shelton Work Phone: [facility] Work Phone: Start: 10-08-2022 End: 10-08-2022 Admission to same day surgery center [facility]-Surgical Day Care Start: 10-08-2022 End: 10-08-2022 ambulatory [facility] Work Phone: Start: 08-04-2022 End: 08-04-2022 ambulatory [facility] Work Phone: Start: 08-04-2022 End: 08-04-2022 Patient encounter procedure [facility]-Laboratory, Specimen Start: 07-02-2022 End: 07-02-2022 Patient encounter procedure [facility]-Cat Scan, [facility] Start: 03-12-2022 End: 03-12-2022 ambulatory [facility] Work Phone: Start: 03-12-2022 End: 03-12-2022 Patient encounter procedure [facility]-Radiology, [facility] Start: 02-23-2022 End: 02-23-2022 Emergency department patient visit [facility]-Emergency Department Start: 02-03-2022 End: 02-03-2022 ambulatory [facility] Work Phone: Start: 02-03-2022 End: 02-03-2022 Patient encounter procedure [facility]-Laboratory Start: 11-13-2021 End: 11-13-2021 Patient encounter procedure No Primary Care Physician [facility]-Radiology, [facility] Start: 10-15-2021 End: 10-15-2021 Patient encounter procedure No Primary Care Physician [facility]-Laboratory Start: 10-10-2021 End: 10-10-2021 Patient encounter procedure No Primary Care Physician [facility]-Laboratory Start: 10-03-2021 End: 10-03-2021 Patient encounter procedure No Primary Care Physician [facility] Endocrinology Start: 10-02-2021 End: 10-02-2021 Admission to same day surgery center No Primary Care Physician [facility]-Surgical Day Care Start: 09-20-2021 Non-patient / Non-visit No Ginger scott Care Physician [facility] [facility] Start: 09-19-2021 Non-patient / Non-visit No Ginger chavez Care Physician [facility] Start: 09-17-2021 Non-patient / Non-visit No Ginger chavez Care Physician [facility] Start: 09-16-2021 Non-patient / Non-visit No Ginger chavez Care Physician [facility] Start: 09-13-2021 Non-patient / Non-visit No Ginger chavez Care Physician [facility] Start: 09-12-2021 Non-patient / Non-visit No Ginger chavez Care Physician [facility] Start: 09-09-2021 Non-patient / Non-visit No Ginger chavez Care Physician [facility] Start: 09-07-2021 End: 09-21-2021 Evaluation and management of inpatient No Primary Care Physician [facility]-Rehab Unit Start: 09-07-2021 Non-patient / Non-visit No Ginger chavez Care Physician [facility] Start: 09-06-2021 Non-patient / Non-visit No Ginger chavez Care Physician [facility] Start: 09-05-2021 Non-patient / Non-visit No Ginger chavez Care Physician [facility] Start: 09-05-2021 End: 09-07-2021 Evaluation and management of inpatient [facility]-Medical Surgical 3 Start: 08-26-2021 End: 08-26-2021 Emergency department patient visit [facility]-Emergency Department Start: 07-24-2021 End: 07-24-2021 Patient encounter procedure [facility] Oncology Start: 06-27-2021 End: 06-27-2021 Patient encounter procedure [facility]-Cat Scan, [facility] Start: 06-19-2021 Patient encounter procedure [facility]-Laboratory Start: 05-26-2021 End: 05-26-2021 Emergency department patient visit [facility]-Emergency Department Start: 05-01-2021 Telephone encounter Iggy Egan MD [facility] [place] Comment on above: Patient Update Start: 02-28-2021 End: 03-04-2021 ambulatory HAKEEM [facility] Start: 02-28-2021 End: 02-28-2021 Postop follow up visit related to original px Hakeem Gamaliel Perez DPM Work Phone: [facility] Comment on above: Nail abnormality (Pr imary Dx) Start: 11-29-2020 End: 11-29-2020 ambulatory HAKEEM PEREZ [facility] Amb[facility] Start: 11-29-2020 End: 11-29-2020 Office outpatient visit 10 minutes Hakeem Perez DPM Work Phone: [facility] Comment on above: Onychomycosis (Prima ry Dx); Pain in right toe(s); Pain in toe of left foot; Varicose veins of leg with swelling, bilateral Start: 10-31-2020 ambulatory HAKEEM PEREZ [facility] Start: 09-18-2020 End: 09-18-2020 Chart abstracting Hakeem GAONAM Work Phone: [facility] Comment on above: Bilateral swelling o f feet and ankles; Kidney problem; Prostate cancer (HCC); Onychomycosis Procedures Date Procedure Procedure Detail Performing Clinician Start: 09-14-2024 Fluoroscopic guidance Polo Shelton DO Work Phone: Start: 09-14-2024 Insertion of stent i nto ureter Dr. Johnny Shelton DO Work Phone: Start: 08-30-2024 Assay of prostate specific antigen total Dr. Johnny Shelton DO Work Phone: Comment on above: This test was perfor med using the [employer] tPSA method. Measured values of a patient sample can vary depending on the testing procedure used. PSA values determined on patient samples by different testing procedures cannot be used interchangeably. If there is a change in PSA assays while monitoring therapy, sequential testing should be performed to confirm baseline values. Start: 08-30-[address] Johnny Shelton DO Work Phone: Start: 03-31-2024 Plain X-ray of clavicle Dr. Johnny Shelton DO Work Phone: Start: 03-15-[address] Johnny Shelton DO Work Phone: Start: 03-15-[address] Johnny Shelton DO Work Phone: Start: 03-14-2024 SARS-CoV-2, Influenz a & RSV (PCR) Dr. Johnny Shelton DO Work Phone: Start: 03-09-[address] Johnny Shelton DO Work Phone: Start: 03-09-[address] Johnny Shelton DO Work Phone: Start: 03-09-2024 SARS-CoV-2, Influenz a & RSV (PCR) Dr. Johnny Shelton DO Work Phone: Start: 03-09-[address] Johnny Shelton DO Work Phone: Start: 03-09-2024 Plain chest X-ray Dr. Jeffrey Shelton DO Work Phone: Start: 03-09-2024 Plain chest X-ray Dr. Jeffrey Shelton DO Work Phone: Start: 07-27-2023 CT of chest without contrast Dr. Johnny Shelton Work Phone: Start: 04-10-2023 Investigation of transfusion reaction Dr. Johnny Shelton Work Phone: Start: 04-10-2023 Respiratory microbia l culture Dr. Johnny Shelton Work Phone: Start: 04-09-2023 Plain chest X-ray Dr. Jeffrey Shelton Work Phone: Start: 04-09-2023 Bacteria identified in Blood by Culture Dr. Johnny Shelton Work Phone: Start: 04-09-2023 Legionella pneumophi la antigen assay Dr. Johnny Shelton Work Phone: Start: 04-09-2023 SARS-CoV-2, Influenz a & RSV (PCR) Dr. Johnny Shelton Work Phone: Start: 04-09-2023 Streptococcus pneumo niae Antigen (M Dr. Johnny Shelton Work Phone: Start: 04-09-[address] Johnny Shelton Work Phone: Start: 03-08-2023 Plain chest X-ray Dr. Jeffrey Shelton Work Phone: Start: 03-08-2023 Bacteria identified in Blood by Culture Dr. Johnny Shelton Work Phone: Start: 03-08-2023 SARS-CoV-2 & FLU Ant igen (Rapid) Dr. Johnny Shelotn Work Phone: Start: 03-08-[address] Johnny Shelton Work Phone: Start: 03-05-[address] Johnny Shelton Work Phone: Start: 12-26-[address] Johnny Shelton Work Phone: Start: 12-26-2022 Investigation of transfusion reaction Dr. Johnny Shelton Work Phone: Start: 12-26-2022 Microbial culture, routine Dr. Johnny Shelton Work Phone: Start: 12-09-2022 Plain x-ray of pelvi s and lower extremity Dr. Johnny Shelton Work Phone: Start: 11-25-2022 Fluoroscopic guidance Polo Shelton Work Phone: Start: 11-25-2022 Plain X-ray of hip Dr. Johnny Shelton Work Phone: Start: 11-25-2022 Open reduction of fracture of femur with internal fixation Dr. Johnny Shelton Work Phone: Start: 11-25-2022 Plain chest X-ray Dr. Jeffrey Shelton Work Phone: Start: 11-25-2022 Plain x-ray of pelvi s and lower extremity Dr. Johnny Shelton Work Phone: Start: 10-08-2022 Insertion of stent i nto ureter Start: 10-08-2022 Fluoroscopic guidance Start: 08-04-2022 Urine culture Start: 07-02-2022 CT of chest without contrast Start: 03-12-2022 [facility] Start: 02-23-2022 Plain chest X-ray Start: 11-13-2021 Plain chest X-ray No Pr imary Care Physician Start: 10-02-2021 Insertion of stent i nto ureter No Primary Care Physician Start: 10-02-2021 Fluoroscopic guidance N o Primary Care Physician Start: 09-05-2021 Fluoroscopic guidance N o Primary Care Physician Start: 09-05-2021 Open reduction of fracture of femur with internal fixation No Primary Care Physician Start: 09-05-2021 Plain X-ray of femur No Primary Care Physician Start: 09-05-2021 Plain x-ray of pelvi s and lower extremity No Primary Care Physician Start: 09-05-2021 CT of chest without contrast No Primary Care Physician Start: 09-05-2021 Plain chest X-ray Start: 09-05-2021 Plain x-ray of pelvi s and lower extremity Start: 08-26-2021 SARS-CoV-2 & FLU Ant igen (Rapid) Start: 08-26-2021 Plain chest X-ray Start: 07-24-2021 Positron emission tomography with computed tomography Start: 06-27-2021 CT of chest without contrast Start: 05-26-2021 Plain chest X-ray Start: 05-26-2021 SARS-CoV-2 Antigen (Rapid) History of appendectomy Status p ost appendectomy History of appendectomy Status p ost appendectomy Marine Hubbard 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 History of transuret hral prostatectomy History of transurethral resection of prostate Dr. Johnny Shelton DO Work Phone: Comment on above: 2014 History of transuret hral prostatectomy History of transurethral resection of prostate Marineqasim Hubbard 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 SARS-CoV-2 & FLU Ant igen (Rapid) No Primary Care Physician SARS-CoV-2 Antigen (Rapid) No Primary Care Physician Urine culture No Primary Car e Physician Urine culture Plan of Treatment Date Care Activity Detail Author Start: 03-14-2029 Tetanus vaccination Tetanus: Every 10yrs [facility] Start: 03-14-2029 Urine microalbumin profile DTAP,TDAP,TD (2 - Td or Tdap) [facility] Start: 09-14-2024 Ambulation without limitation [facility] Start: 09-14-2024 Medication education [facility] Start: 09-14-2024 Patient discharge [facility] Start: 09-14-2024 Taking patient vital signs [facility] Start: 09-14-2024 [facility] Start: 03-31-2024 [facility] Start: 03-15-2024 [facility] Start: 03-15-2024 [facility] Start: 03-14-2024 End: 03-14-2024 [facility] Start: 03-09-2024 Patient discharge [facility] Start: 03-09-2024 Wound care [facility] Start: 03-09-2024 Following clinical pathway protocol [facility] Start: 03-09-2024 Aspiration precautions [facility] Start: 03-09-2024 Assessment of risk of venous thromboembolism [facility] Start: 03-09-2024 Consultation for treatment [facility] Start: 03-09-2024 Fall prevention [facility] Start: 03-09-2024 Incentive spirometry [facility] Start: 03-09-2024 Inhalation therapy procedure [facility] Start: 03-09-2024 Insertion of catheter into peripheral vein [facility] Start: 03-09-2024 Introduction of urinary catheter [facility] Start: 03-09-2024 Measuring intake and output [facility] Start: 03-09-2024 Oxygen therapy [facility] Start: 03-09-2024 Patient referral to dietitian [facility] Start: 03-09-2024 Providing care according to standard [facility] Start: 03-09-2024 Provision of activity privileges [facility] Start: 03-09-2024 Referral to occupational therapist [facility] Start: 03-09-2024 Referral to service [facility] Start: 03-09-2024 [facility] Start: 03-09-2024 Admission procedure [facility] Start: 03-09-2024 [facility] Start: 04-20-2023 Blood chemistry [facility] Start: 04-19-2023 Blood chemistry [facility] Start: 04-18-2023 Blood chemistry [facility] Start: 04-17-2023 Blood chemistry [facility] Start: 04-16-2023 Blood chemistry [facility] Start: 04-15-2023 Blood chemistry [facility] Start: 04-14-2023 Patient discharge [facility] Start: 04-13-2023 Consultation [facility] Start: 04-12-2023 Care planning and problem solving actions [facility] Start: 04-10-2023 Wound care [facility] Start: 04-10-2023 Consultation for treatment [facility] Start: 04-10-2023 Following clinical pathway protocol [facility] Start: 04-10-2023 Assessment of risk of venous thromboembolism [facility] Start: 04-10-2023 Insertion of catheter into peripheral vein [facility] Start: 04-10-2023 Measuring intake and output [facility] Start: 04-10-2023 Oxygen therapy [facility] Start: 04-10-2023 Providing care according to standard [facility] Start: 04-10-2023 Provision of activity privileges [facility] Start: 04-10-2023 Referral to occupational therapist [facility] Start: 04-10-2023 Referral to service [facility] Start: 04-10-2023 [facility] Start: 04-10-2023 Patient referral to [facility] Start: 04-09-2023 Admission procedure [facility] Start: 04-09-2023 Hospital admission, emergency, from emergency room, medical nature [facility] Start: 04-09-2023 [facility] Start: 04-09-2023 End: 04-09-2023 Blood culture [facility] Start: 04-09-2023 [facility] Start: 04-09-2023 Bacteria identified in Blood by Culture Blood Culture [facility] Start: 03-08-2023 [facility] Start: 03-08-2023 End: 03-08-2023 Blood culture [facility] Start: 03-08-2023 Bacteria identified in Blood by Culture Blood Culture [facility] Start: 12-26-2022 Anaerobic Culture Anaerobic Culture [facility] Start: 12-26-2022 Microbial culture, routine Wound Culture [facility] Start: 12-12-2022 Patient discharge [facility] Start: 12-12-2022 [facility] Start: 12-11-2022 Wound care [facility] Start: 12-11-2022 Referral to service [facility] Start: 12-10-2022 Referral to service [facility] Start: 12-09-2022 [facility] Start: 12-08-2022 [facility] Start: 11-29-2022 Provision of activity privileges [facility] Start: 11-28-2022 Recommendation to continue with treatment [facility] Start: 11-28-2022 Implementation of planned interventions [facility] Start: 11-28-2022 Wound care [facility] Start: 11-28-2022 Referral to service [facility] Start: 11-28-2022 Admission procedure [facility] Start: 11-28-2022 Patient referral to dietitian [facility] Start: 11-28-2022 Referral to occupational therapist [facility] Start: 11-28-2022 Vital signs measurements [facility] Start: 11-28-2022 End: 11-28-2022 [facility] Start: 11-28-2022 Patient discharge [facility] Start: 11-26-2022 Referral to service [facility] Start: 11-26-2022 Measuring intake and output [facility] Start: 11-25-2022 Measuring intake and output [facility] Start: 11-25-2022 Measuring intake and output [facility] Start: 11-25-2022 Ambulation therapy management [facility] Start: 11-25-2022 Application of device [facility] Start: 11-25-2022 Exercises [facility] Start: 11-25-2022 Following clinical pathway protocol [facility] Start: 11-25-2022 Introduction of urinary catheter [facility] Start: 11-25-2022 Neurovascular assessment [facility] Start: 11-25-2022 Oxygen therapy [facility] Start: 11-25-2022 Patient education [facility] Start: 11-25-2022 Provision of activity privileges [facility] Start: 11-25-2022 Recommendation to continue with treatment [facility] Start: 11-25-2022 Referral to occupational therapist [facility] Start: 11-25-2022 Referral to service [facility] Start: 11-25-2022 Vital signs measurements [facility] Start: 11-25-2022 Wound care [facility] Start: 11-25-2022 [facility] Start: 11-25-2022 Application of intermittent pneumatic compression device [facility] Start: 11-25-2022 Following clinical pathway protocol [facility] Start: 11-25-2022 Measuring intake and output [facility] Start: 11-25-2022 Application of ice collar, cap or bag [facility] Start: 11-25-2022 Neurovascular assessment [facility] Start: 11-25-2022 Skin care [facility] Start: 11-25-2022 End: 11-25-2022 [facility] Start: 11-25-2022 Assessment of risk of venous thromboembolism [facility] Start: 11-25-2022 Catheterization of vein [facility] Start: 11-25-2022 Consultation [facility] Start: 11-25-2022 Insertion of catheter into peripheral vein [facility] Start: 11-25-2022 Providing care according to standard [facility] Start: 11-25-2022 Provision of activity privileges [facility] Start: 11-25-2022 Referral to occupational therapist [facility] Start: 11-25-2022 Referral to service [facility] Start: 11-25-2022 Admission procedure [facility] Start: 10-08-2022 Anes transurethral w/urethrocystoscopy nos ANESTH BLADDER SURGERY [facility] Start: 10-08-2022 Cysto w/insert ureteral stent CYSTOSCOPY AND TREATMENT [facility] Start: 10-08-2022 Patient discharge [facility] Start: 10-08-2022 Ambulation without limitation [facility] Start: 10-08-2022 Medication education [facility] Start: 10-08-2022 Taking patient vital signs [facility] Start: 10-08-2022 End: 10-08-2022 [facility] Start: 05-09-2022 DIABETES SCREEN DIABETES SCREEN [facility] Start: 02-23-2022 [facility] Work Phone: Start: 10-02-2021 Anes transurethral w/urethrocystoscopy nos ANESTH BLADDER SURGERY [facility] Work Phone: Start: 10-02-2021 Cysto w/insert ureteral stent CYSTOSCOPY AND TREATMENT [facility] Work Phone: Start: 10-02-2021 Patient discharge [facility] Work Phone: Start: 09-27-2021 COVID-19 VACCINE (3 - Booster for Pfizer series) COVID-19 VACCINE (3 - Booster for Pfizer series) [facility] Start: 09-21-2021 Patient discharge [facility] Work Phone: Start: 09-21-2021 [facility] Work Phone: Start: 09-19-2021 Referral to service [facility] Work Phone: Start: 09-17-2021 Following clinical pathway protocol [facility] Work Phone: Start: 09-17-2021 [facility] Work Phone: Start: 09-10-2021 [facility] Work Phone: Start: 09-08-2021 Fluid restriction [facility] Work Phone: Start: 09-08-2021 Measuring intake and output [facility] Work Phone: Start: 09-07-2021 Provision of activity privileges [facility] Work Phone: Start: 09-07-2021 Wound care [facility] Work Phone: Start: 09-07-2021 Referral to service [facility] Work Phone: Start: 09-07-2021 Urinary bladder training [facility] Work Phone: Start: 09-07-2021 Admission procedure [facility] Work Phone: Start: 09-07-2021 Patient referral to dietitian [facility] Work Phone: Start: 09-07-2021 Referral to occupational therapist [facility] Work Phone: Start: 09-07-2021 Vital signs measurements [facility] Work Phone: Start: 09-07-2021 End: 09-07-2021 [facility] Work Phone: Start: 09-07-2021 Patient discharge [facility] Work Phone: Start: 09-07-2021 Incentive spirometry [facility] Work Phone: Start: 09-06-2021 [facility] Work Phone: Start: 09-05-2021 Ambulation therapy management [facility] Work Phone: Start: 09-05-2021 Application of device [facility] Work Phone: Start: 09-05-2021 Exercises [facility] Work Phone: Start: 09-05-2021 Following clinical pathway protocol [facility] Work Phone: Start: 09-05-2021 Introduction of urinary catheter [facility] Work Phone: Start: 09-05-2021 Neurovascular assessment [facility] Work Phone: Start: 09-05-2021 Oxygen therapy [facility] Work Phone: Start: 09-05-2021 Patient education [facility] Work Phone: Start: 09-05-2021 Provision of activity privileges [facility] Work Phone: Start: 09-05-2021 Vital signs measurements [facility] Work Phone: Start: 09-05-2021 Wound care [facility] Work Phone: Start: 09-05-2021 End: 09-05-2021 [facility] Work Phone: Start: 09-05-2021 Incentive spirometry [facility] Work Phone: Start: 09-05-2021 End: 09-06-2021 Measuring intake and output [facility] Work Phone: Start: 09-05-2021 Application of ice collar, cap or bag [facility] Work Phone: Start: 09-05-2021 Application of intermittent pneumatic compression device [facility] Work Phone: Start: 09-05-2021 Bedrest [facility] Work Phone: Start: 09-05-2021 Neurovascular assessment [facility] Work Phone: Start: 09-05-2021 Patient education [facility] Work Phone: Start: 09-05-2021 Skin care [facility] Work Phone: Start: 09-05-2021 [facility] Work Phone: Start: 09-05-2021 Consultation [facility] Work Phone: Start: 09-05-2021 Following clinical pathway protocol [facility] Work Phone: Start: 09-05-2021 Application of intermittent pneumatic compression device [facility] Work Phone: Start: 09-05-2021 Assessment of risk of venous thromboembolism [facility] Work Phone: Start: 09-05-2021 Insertion of catheter into peripheral vein [facility] Work Phone: Start: 09-05-2021 Providing care according to standard [facility] Work Phone: Start: 09-05-2021 Provision of activity privileges [facility] Work Phone: Start: 09-05-2021 Referral to occupational therapist [facility] Work Phone: Start: 09-05-2021 Referral to service [facility] Work Phone: Start: 09-05-2021 [facility] Work Phone: Start: 09-05-2021 CT of chest without contrast Chest without Contrast [facility] Work Phone: Start: 09-05-2021 Admission procedure [facility] Work Phone: Start: 08-26-2021 [facility] Work Phone: Start: 05-26-2021 [facility] Work Phone: Start: 03-30-2021 ADVANCE DIRECTIVE DISCUSSION ADVANCE DIRECTIVE DISCUSSION [facility] Start: 02-28-2021 End: 02-28-2021 Patient encounter procedure 02/28/2021 Office Visit Podiatry Hakeem Perez DPM [address] [place] [address] [facility] Start: 11-28-2020 Influenza vaccination Sequential Influenza Vaccine (#1) [facility] Start: 10-11-2020 End: 10-11-2020 Patient encounter procedure 10/11/2020 Office Visit Podiatry Hakeem Perez DPM [address] [place] [address] [phone] [facility] Start: 01-31-2015 Pneumococcal Vaccine: Age 65+ (2 of 4 - PPSV23) Pneumococcal Vaccine: Age 65+ (2 of 4 - PPSV23) [facility] Start: 11-05-2000 Fall risk assessment Falls Risk Assessment [facility] Start: 11-05-1985 Administration of herpes zoster vaccine Zoster Vaccines (1 of 2) [facility] Start: 11-05-1954 SHINGRIX VACCINE (1 of 2) SHINGRIX VACCINE (1 of 2) [facility] Start: 1947 COVID-19 Vaccine (1) COVID-19 Vaccine (1) [facility] Start: 1947 Depression screening using PHQ-9 (Patient Health Questionnaire 9) score [facility] Start: 11-05-1938 History and physical examination, annual for health maintenance Wellness Visit [facility] Start: 1935 Tetanus vaccination Tetanus: Every 10yrs [facility] Bacteria identified in Unspecified specimen by Anaerobe culture [facility] Patient Education [facility] Work Phone: Patient referral [facility] Work Phone: Immunizations Immunization Date Immunization Notes Care Provider [facility] 01-13-2024 influenza, high dose seasonal, preservative-free Dr. Johnny Shelton DO Work Phone: [facility] 01-13-2024 Pfizer Covid-19 (Comirnaty) Dr. Johnny Shelton DO Work Phone: [facility] 01-15-2023 Covid (Spikevax) Dr. Johnny Vasquez DO Work Phone: [facility] 01-05-2023 Influenza High-Dose Quadrivalent Dr. Johnny Shelton DO Work Phone: [facility] 04-30-2021 COVID-19 vaccine, ag e 12+ yr (PFIZER-BIONTECH - PURPLE TOP) Iggy Egan III, MD [facility] 04-09-2021 COVID-19 vaccine, ag e 12+ yr (PFIZER-BIONTECH - PURPLE TOP) Iggy Egan III, MD [facility] 04-09-2021 influenza, high dose seasonal, preservative-free Iggy Egan III, MD [facility] 04-09-2021 influenza, injectabl e, quadrivalent, preservative free Dr. Johnny Shelton Work Phone: [facility] 04-09-2021 influenza, seasonal, injectable No Primary Care Physician [facility] 02-06-2020 influenza, high dose seasonal, preservative-free Hakeem Perez DPM Work Phone: [facility] 01-19-2020 Influenza High-Dose Quadrivalent Dr. Johnny Shelton DO Work Phone: [facility] 01-19-2020 influenza, high dose seasonal, preservative-free Iggy Egan III, MD [facility] 03-14-2019 Influenza virus vaccine [facility] 03-14-2019 influenza, high dose seasonal, preservative-free Iggy Egan III, MD [facility] 03-14-2019 tetanus toxoid, redu mila diphtheria toxoid, and acellular pertussis vaccine, adsorbed Iggy Egan III, MD [facility] 01-07-2018 influenza, high dose seasonal, preservative-free Iggy Egan III, MD [facility] 05-18-2017 influenza, high dose seasonal, preservative-free Iggy Egan III, MD [facility] 05-15-2017 pneumococcal polysaccharide vaccine, 23 valent Iggy Egan III, MD [facility] 12-06-2014 pneumococcal conjuga te vaccine, 13 valent Hakeem Perez DPJeffrey Work Phone: [facility] 09-20-2014 pneumococcal conjuga te vaccine, 13 valent Iggy Egan III, MD [facility] Payers Date Payer Category Payer Self-pay [id number] 2020 Unknown AARP [employer] [id number] 2020-Present [phone] [address] [place] [address] [id number] 2020 Unknown [id number] 2017 Private Health Insurance [facility] AARP SUPPLEMENT [id number] 2017-Present [phone] [address] [place] [address] Indemnity [id number] .[id number] 2000 Medicare [id number] .7.3.620664.315 2000 Medicare MEDICARE MEDICAR E PART A & B [id number] 2000-Present [phone] [facility] J15 PART A CLAIMS [address] [address] [place] [address] [id number] .7.3.322129.315 2000 Medicare [id number] 1935 Unknown [id number] 2.16.840.1.379129.3.579.2 .903 1935 Unknown [id number] 2.16.840.1.561123.3.579.2 .903 Unknown [id number] 2.16.840.1.216943.3.579.2 .462 Unknown [id number] 2.16.840.1.686153.3.579.2 .462 Unknown [id number] 2.16.840.1.566342.3.579.2 .462 Unknown [id number] 2.16.840.1.741795.3.579.2 .462 Unknown [id number] 2.16.840.1.776321.3.579.2 .462 Unknown [id number] 2.16.840.1.025873.3.579.2 .462 Unknown [id number] 2.16.840.1.365007.3.579.2 .462 Unknown [id number] 2.16.840.1.040880.3.579.2 .462 Unknown [id number] 2.16.840.1.037222.3.579.2 .462 Unknown [id number] 2.16.840.1.923014.3.579.2 .462 Unknown [id number] 2.16.840.1.709962.3.579.2 .462 Unknown [id number] 2.16.840.1.621176.3.579.2 .462 Unknown [id number] 2.16.840.1.106251.3.579.2 .462 Unknown [id number] 2.16.840.1.507311.3.579.2 .462 Unknown [id number] 2.16.840.1.782918.3.579.2 .462 Unknown [id number] 2.16.840.1.841626.3.579.2 .462 Unknown [id number] 2.16.840.1.547818.3.579.2 .462 Unknown [id number] 2.16.840.1.440841.3.579.2 .462 Unknown [id number] 2.16.840.1.764140.3.579.2 .462 Unknown [id number] 2.16.840.1.905408.3.579.2 .462 Unknown [id number] 2.16.840.1.613176.3.579.2 .462 Unknown [id number] 2.16840.1.738536.3.579.2 .462 Unknown [id number] 2.16840.1.114580.3.579.2 .462 Unknown [id number] 2.16840.1.610995.3.579.2 .462 Social History Date Type Detail Facility Start: 09-18-2020 End: 09-02-2024 Tobacco smoking status WYIS Former smoker [facility] Start: 01-26-2020 End: 09-18-2020 Alcohol intake Current drinker of alcohol (finding) [facility] Start: 1935 Sex Assigned At Not on file O [facility] Start: 05-26-2017 End: 09-18-2020 Tobacco use and exposure Smokeless tobacco non-user [facility] Exposure to SARS-CoV -2 (event) Not sure [facility] Start: 05-26-2021 End: 04-21-2023 Tobacco smoking status NHIS Unknown if ever smoked [facility] Start: 03-28-2019 Occasional [facility] Start: 03-28-2019 None [facility] Start: 03-28-2019 Spouse/ Signif icant Other [facility] Start: 02-16-2020 Cigarettes [facility] Start: 1935 Sex Assigned At Male W [facility] Start: 03-30-1954 End: 05-12-2017 History of tobacco use Current smoker [facility] Start: 05-26-2017 Cigarettes smoked current (pack per day) - Reported 0.9 [facility] Start: 06-28-2024 Sex Male (finding) [facility] Medical Equipment Procedure Code Equipment Code Equipment Origin al Text Equipment Identifier Dates ORIF, hip, using Gamma nail Gamma Lag Screw FDA Start: 09-05-2021 ORIF, hip, using Gamma nail Gamma Long Nail FDA Start: 09-05-2021 ORIF, hip, using Gamma nail Locking Screw FDA Start: 09-05-2021 ORIF, hip, using Gamma nail Locking Screw FDA Start: 09-05-2021 ORIF, hip, using Gamma nail ([id number]) Orthopaedic bone screw, non-bioabsorbable, sterile [id number] FDA Start: 09-05-2021 ORIF, hip, using Gamma nail ([id number]) Orthopaedic bone screw, non-bioabsorbable, sterile [id number] FDA Start: 09-05-2021 ORIF, hip, using Gamma nail ([id number]) Orthopaedic bone screw, non-bioabsorbable, sterile [id number] FDA Start: 09-05-2021 ORIF, hip, using Gamma nail ([id number]) Femur nail, sterile [id number] FDA Start: 09-05-2021 ORIF, hip, using Gamma nail ([id number]) Orthopaedic bone screw, non-bioabsorbable, sterile [id number] FDA Start: 11-25-2022 ORIF, hip, using Gamma nail ([id number]) Femur nail, sterile [id number] FDA Start: 11-25-2022 ORIF, hip, using Gamma nail ([id number]) Orthopaedic bone screw, non-bioabsorbable, sterile [id number] FDA Start: 11-25-2022 Cystoscopy, with retrograde pyelogram and ureteral stent insertion STENT,URETERAL PIGTAIL 6FRx26 FDA Start: 10-02-2021 Cystoscopy, with retrograde pyelogram and ureteral stent insertion STENT,URETERAL PIGTAIL 6FRx26 FDA Start: 10-02-2021 Cystoscopy, with retrograde pyelogram and ureteral stent insertion STENT,URETERAL PIGTAIL 6FRx26 FDA Start: 10-02-2021 Cystoscopy, with retrograde pyelogram and ureteral stent insertion STENT,URETERAL PIGTAIL 6FRx26 FDA Start: 10-02-2021 Cystoscopy, with retrograde pyelogram and ureteral stent insertion STENT,URETERAL PIGTAIL 6FRx26 FDA Start: 10-02-2021 Cystoscopy, with retrograde pyelogram and ureteral stent insertion STENT,URETERAL PIGTAIL 6FRx26 FDA Start: 10-02-2021 Cystoscopy, with retrograde pyelogram and ureteral stent insertion STENT,URETERAL PIGTAIL 6FRx26 FDA Start: 10-02-2021 Cystoscopy, with retrograde pyelogram and ureteral stent insertion STENT,URETERAL PIGTAIL 6FRx26 FDA Start: 10-02-2021 Cystoscopy, with retrograde pyelogram and ureteral stent insertion STENT,URETERAL PIGTAIL 6FRx26 FDA Start: 10-08-2022 Cystoscopy, with retrograde pyelogram and ureteral stent insertion STENT,URETERAL PIGTAIL 6FRx26 FDA Start: 10-02-2021 Cystoscopy, with retrograde pyelogram and ureteral stent insertion STENT,URETERAL PIGTAIL 6FRx26 FDA Start: 10-08-2022 Cystoscopy, with retrograde pyelogram and ureteral stent insertion STENT,URETERAL PIGTAIL 6FRx26 FDA Start: 10-02-2021 Cystoscopy, with retrograde pyelogram and ureteral stent insertion STENT,URETERAL PIGTAIL 6FRx26 FDA Start: 10-08-2022 Cystoscopy, with retrograde pyelogram and ureteral stent insertion STENT,URETERAL PIGTAIL 6FRx26 FDA Start: 10-02-2021 Cystoscopy, with retrograde pyelogram and ureteral stent insertion STENT,URETERAL PIGTAIL 6FRx26 FDA Start: 10-08-2022 Cystoscopy, with retrograde pyelogram and ureteral stent insertion STENT,URETERAL PIGTAIL 6FRx26 FDA Start: 10-02-2021 Cystoscopy, with retrograde pyelogram and ureteral stent insertion STENT,URETERAL PIGTAIL 6FRx26 FDA Start: 10-08-2022 Cystoscopy, with retrograde pyelogram and ureteral stent insertion STENT,URETERAL PIGTAIL 6FRx26 FDA Start: 10-02-2021 Cystoscopy, with retrograde pyelogram and ureteral stent insertion STENT,URETERAL PIGTAIL 6FRx26 FDA Start: 10-08-2022 Cystoscopy, with retrograde pyelogram and ureteral stent insertion STENT,URETERAL PIGTAIL 6FRx26 FDA Start: 10-02-2021 Cystoscopy, with retrograde pyelogram and ureteral stent insertion STENT,URETERAL PIGTAIL 6FRx26 FDA Start: 10-08-2022 Cystoscopy, with retrograde pyelogram and ureteral stent insertion STENT,URETERAL PIGTAIL 6FRx26 FDA Start: 10-02-2021 Cystoscopy, with retrograde pyelogram and ureteral stent insertion STENT,URETERAL PIGTAIL 6FRx26 FDA Start: 10-08-2022 Cystoscopy, with retrograde pyelogram and ureteral stent insertion STENT,URETERAL PIGTAIL 6FRx26 FDA Start: 10-02-2021 Cystoscopy, with retrograde pyelogram and ureteral stent insertion STENT,URETERAL PIGTAIL 6FRx26 FDA Start: 10-08-2022 Cystoscopy, with retrograde pyelogram and ureteral stent insertion STENT,URETERAL PIGTAIL 6FRx26 FDA Start: 10-02-2021 Cystoscopy, with retrograde pyelogram and ureteral stent insertion STENT,URETERAL PIGTAIL 6FRx26 FDA Start: 10-08-2022 Cystoscopy, with retrograde pyelogram and ureteral stent insertion STENT,URETERAL PIGTAIL 6FRx26 FDA Start: 10-02-2021 Cystoscopy, with retrograde pyelogram and ureteral stent insertion STENT,URETERAL PIGTAIL 6FRx26 FDA Start: 10-08-2022 Cystoscopy, with retrograde pyelogram and ureteral stent insertion STENT,URETERAL PIGTAIL 6FRx26 FDA Start: 10-02-2021 Cystoscopy, with retrograde pyelogram and ureteral stent insertion STENT,URETERAL PIGTAIL 6FRx26 FDA Start: 10-08-2022 Cystoscopy, with retrograde pyelogram and ureteral stent insertion STENT,URETERAL PIGTAIL 6FRx26 FDA Start: 10-02-2021 Cystoscopy, with retrograde pyelogram and ureteral stent insertion STENT,URETERAL PIGTAIL 6FRx26 FDA Start: 10-08-2022 Cystoscopy, with retrograde pyelogram and ureteral stent insertion STENT,URETERAL PIGTAIL 6FRx26 FDA Start: 10-02-2021 Cystoscopy, with retrograde pyelogram and ureteral stent insertion STENT,URETERAL PIGTAIL 6FRx26 FDA Start: 10-08-2022 Cystoscopy, with retrograde pyelogram and ureteral stent insertion STENT,URETERAL PIGTAIL 6FRx26 FDA Start: 10-02-2021 Cystoscopy, with retrograde pyelogram and ureteral stent insertion STENT,URETERAL PIGTAIL 6FRx26 FDA Start: 10-08-2022 Cystoscopic insertion of stent STENT,URETERAL 6FR PIG 6X26 FDA Start: 08-03-2019 Cystoscopic insertion of stent STENT,URETERAL 6FR PIG 6X26 FDA Start: 08-03-2019 Cystoscopic insertion of stent STENT,URETERAL 6FR PIG 6X26 FDA Start: 08-03-2019 Cystoscopic insertion of stent STENT,URETERAL 6FR PIG 6X26 FDA Start: 08-03-2019 Cystoscopic insertion of stent STENT,URETERAL 6FR PIG 6X26 FDA Start: 08-03-2019 Cystoscopic insertion of stent STENT,URETERAL 6FR PIG 6X26 FDA Start: 08-03-2019 Cystoscopic insertion of stent STENT,URETERAL 6FR PIG 6X26 FDA Start: 08-03-2019 Cystoscopic insertion of stent STENT,URETERAL 6FR PIG 6X26 FDA Start: 08-03-2019 Cystoscopic insertion of stent STENT,URETERAL 6FR PIG 6X26 FDA Start: 08-03-2019 Cystoscopic insertion of stent STENT,URETERAL 6FR PIG 6X26 FDA Start: 08-03-2019 Cystoscopic insertion of stent STENT,URETERAL 6FR PIG 6X26 FDA Start: 08-03-2019 Cystoscopic insertion of stent STENT,URETERAL 6FR PIG 6X26 FDA Start: 08-03-2019 Cystoscopic insertion of stent STENT,URETERAL 6FR PIG 6X26 FDA Start: 08-03-2019 Cystoscopic insertion of stent STENT,URETERAL 6FR PIG 6X26 FDA Start: 08-03-2019 Cystoscopic insertion of stent STENT,URETERAL 6FR PIG 6X26 FDA Start: 08-03-2019 Cystoscopic insertion of stent STENT,URETERAL 6FR PIG 6X26 FDA Start: 08-03-2019 Cystoscopic insertion of stent STENT,URETERAL 6FR PIG 6X26 FDA Start: 08-03-2019 Cystoscopic insertion of stent STENT,URETERAL 6FR PIG 6X26 FDA Start: 08-03-2019 Cystoscopic insertion of stent STENT,URETERAL 6FR PIG 6X26 FDA Start: 08-03-2019 Cystoscopic insertion of stent STENT,URETERAL 6FR PIG 6X26 FDA Start: 08-03-2019 Cystoscopic insertion of stent STENT,URETERAL 6FR PIG 6X26 FDA Start: 08-03-2019 Cystoscopic insertion of stent STENT,URETERAL 6FR PIG 6X26 FDA Start: 08-03-2019 Cystoscopic insertion of stent STENT,URETERAL 6FR PIG 6X26 FDA Start: 08-03-2019 Cystoscopic insertion of stent STENT,URETERAL 6FR PIG 6X26 FDA Start: 08-03-2019 Cystoscopic insertion of stent STENT,URETERAL 6FR PIG 6X26 FDA Start: 08-03-2019 Cystoscopic insertion of stent STENT,URETERAL 6FR PIG 6X26 FDA Start: 08-03-2019 Cystoscopic insertion of stent STENT,URETERAL PIGTAIL 6FRx26 FDA Start: 02-03-2024 Cystoscopic insertion of stent STENT,URETERAL 6FR PIG 6X26 FDA Start: 08-03-2019 Cystoscopic insertion of stent STENT,URETERAL PIGTAIL 6FRx26 FDA Start: 02-03-2024 Cystoscopic insertion of stent STENT,URETERAL 6FR PIG 6X26 FDA Start: 08-03-2019 Cystoscopic insertion of stent STENT,URETERAL PIGTAIL 6FRx26 FDA Start: 02-03-2024 Cystoscopic insertion of stent STENT,URETERAL 6FR PIG 6X26 FDA Start: 08-03-2019 Cystoscopic insertion of stent STENT,URETERAL PIGTAIL 6FRx26 FDA Start: 02-03-2024 STENT,URETERAL 6 FR PIG 6X26 FDA Start: 12-16-2017 STENT,URETERAL 6 FR PIG 6X26 FDA Start: 12-16-2017 STENT,URETERAL 6 FR PIG 6X26 FDA Start: 12-16-2017 STENT,URETERAL 6 FR PIG 6X26 FDA Start: 12-16-2017 STENT,URETERAL 6 FR PIG 6X26 FDA Start: 12-16-2017 STENT,URETERAL 6 FR PIG 6X26 FDA Start: 12-16-2017 STENT,URETERAL 6 FR PIG 6X26 FDA Start: 12-16-2017 STENT,URETERAL 6 FR PIG 6X26 FDA Start: 12-16-2017 STENT,URETERAL 6 FR PIG 6X26 FDA Start: 12-16-2017 STENT,URETERAL 6 FR PIG 6X26 FDA Start: 12-16-2017 STENT,URETERAL 6 FR PIG 6X26 FDA Start: 12-16-2017 STENT,URETERAL 6 FR PIG 6X26 FDA Start: 12-16-2017 STENT,URETERAL 6 FR PIG 6X26 FDA Start: 12-16-2017 STENT,URETERAL 6 FR PIG 6X26 FDA Start: 12-16-2017 STENT,URETERAL 6 FR PIG 6X26 FDA Start: 12-16-2017 STENT,URETERAL 6 FR PIG 6X26 FDA Start: 12-16-2017 STENT,URETERAL 6 FR PIG 6X26 FDA Start: 12-16-2017 STENT,URETERAL 6 FR PIG 6X26 FDA Start: 12-16-2017 STENT,URETERAL 6 FR PIG 6X26 FDA Start: 12-16-2017 STENT,URETERAL 6 FR PIG 6X26 FDA Start: 12-16-2017 STENT,URETERAL 6 FR PIG 6X26 FDA Start: 12-16-2017 STENT,URETERAL 6 FR PIG 6X26 FDA Start: 12-16-2017 STENT,URETERAL 6 FR PIG 6X26 FDA Start: 12-16-2017 STENT,URETERAL 6 FR PIG 6X26 FDA Start: 12-16-2017 STENT,URETERAL 6 FR PIG 6X26 FDA Start: 12-16-2017 STENT,URETERAL 6 FR PIG 6X26 FDA Start: 12-16-2017 STENT,URETERAL 6 FR PIG 6X26 FDA Start: 12-16-2017 STENT,URETERAL 6 FR PIG 6X26 FDA Start: 12-16-2017 STENT,URETERAL 6 FR PIG 6X26 FDA Start: 12-16-2017 Goals Date Patient Goal Desired Activity /State Functional Status Date Assessment Result Facility 03-09-2024 Functional status With Assist of 1 [facility] Work Phone: 04-14-2023 Functional status Ambulates [facility] Work Phone: 12-12-2022 Functional status Bedrest [facility] Work Phone: 11-28-2022 Functional status Ambulates [facility] Work Phone: 09-21-2021 Functional status Ambulates;Bathroom Priv ilege [facility] Work Phone: 09-07-2021 Functional status Bedrest [facility] Work Phone: Mental Status Date Assessment Result Facility 09-14-2024 Cognitive function Level Of Cons ciousness Awake;Alert [facility] Work Phone: 09-14-2024 Cognitive function Voice/Name [facility] Work Phone: 03-14-2024 Cognitive function Level Of Cons ciousness Alert;Appropriate;Follows Commands;Drowsy [facility] Work Phone: 03-09-2024 Cognitive function Voice/Name [facility] Work Phone: 03-09-2024 Cognitive function Appropriate;Cooperativ e [facility] Work Phone: 04-14-2023 Cognitive function Voice/Name [facility] Work Phone: 12-12-2022 Cognitive function Voice/Name [facility] Work Phone: 11-28-2022 Cognitive function Voice/Name [facility] Work Phone: 10-08-2022 Cognitive function Voice/Name [facility] Work Phone: 10-02-2021 Cognitive function Voice/Name [facility] Work Phone: 09-21-2021 Cognitive function Voice/Name [facility] Work Phone: 09-07-2021 Cognitive function Voice/Name [facility] Work Phone: Clinical Notes 11-29-2020 to 09-14-2024 Note Date & Type Note Facility 09-14-2024 Discharge summary [facility] 09-14-2024 Consult note Note Date/Time September 14, 2024 10:32am [facility] Medical Records Department [address] [place] [address] Pre-Anesthesia Evaluation 09/14/24 1027 MR#: [id number] Acct: [id number] Name: ELIESER VILLEGAS Rep #:[id number] : 1935 88 From: Kamar Jones MD PCP: Dr. Johnny Shelton, DO Status:REG SDC Y Race: C Location: [place] [address] ASA Classification* ASA Classification ASA Classification: 3 Assessment & Plan Anesthesia* Anesthesia Assessment Anesthesia Assessment: Discussed sedation and/or anesthesia options, risks, benefits, and alternatives with patient/parents/legal guardian/POA. Questions invited. The patient/parents/legal guardian/POA seems to understand and agrees to proceedwith anesthesia plan. Reviewed the physical assessment, medical history, allergy history and patient home medications list prior to surgery/procedure/anesthetic and documented any changes. Performed airway and anesthesia risk assessments. Anesthesia Type Anesthesia Type: MAC History Source History Obtained from:: Patient and Chart Anesthesia Focused Assessment* Temperature: 97.6 F Pulse Rate: 72 Blood Pressure: 134/93 Respiratory Rate: 16 Pulse Ox: 97 Oxygen Delivery Method: Room Air Airway Assessment Mouth opens: >3 cm Mallampati Score: III Teeth Condition: Partial (Patient has upper partial.) Neck Range of motion (ROM): Limited ROM (Somewhat decreased extension) Labs Anesthesia Preop lab: CBC WBC 12.1 K/mm3 (4.4-11.0) H 03/14/24 22:40 4 RBC 3.93 M/mm3 (4.6-6.2) L 03/14/24 22:40 03/14/24 Hgb 11.9 g/dL (13.0-16.5) L 03/14/24 22:40 4 Hct 35.9 % (40-54) L 03/14/24 22:40 03/14/24 Plt Count 376 K/mm3 (150-450) 03/14/24 22:40 03/14/24 CHEMISTRY Potassium 4.7 mmol/L (3.5-5.1) 03/14/24 22:40 12/16/24 Sodium 130 mmol/L (136-145) L 03/14/24 22:40 03/14/24 Magnesium 2.1 mg/dL (1.6-2.6) 03/09/24 00:15 03/09/24 Phosphorus 3.0 mg/dL (2.5-4.9) 03/09/24 00:15 03/09/24 BUN 21 mg/dL (7-18) H 03/14/24 22:40 03/14/24 Creatinine 0.94 mg/dL (0.70-1.30) 03/14/24 22:40 03/14/24 Glucose 123 mg/dL (74-106) H 03/14/24 22:40 03/14/24 TSH 0.77 uIU/mL (0.358-3.74) 10/10/21 15:22 COAG PT 14.0 SECONDS (11.7-14.9) 04/09/23 21:15 Pre-Assessment Diagnosis/Proposed Procedure Planned Operative Procedure(s): RIGHT STENT CHANGE CYSTO Anesthesia History Anesthesia History - emergency man: Anesthesia History - emergency man Hx Hospitalization No 09/02/24 13:29 Any Problems With Anesthesia No 09/02/24 13:29 Cholinesterase deficiency No 09/02/24 13:29 You/Your Family Experience No 09/02/24 13:29 fever (hyperthermia) with Relationship Recent Exposure to Contagious No 09/14/24 09:39 Disease Does patient have nerve No 09/02/24 13:29 stimulator Patient instructed to have device shut off --Does patient have Pacemaker No 09/14/24 09:39 or ICD? When Was Last Pacemaker Check QUESTION #4 FULL TEXT: You/Your Family Experience fever (hyperthermia) with Anesthesia Last Oral Intake Last Oral intake: Last Oral Intake NPO since 18:00 09/14/24 09:39 Meds taken in AM with sips of No 09/14/24 09:39 water? Meds patient instructed to take am of surgery PONV PONV - emergency man: PONV - emergency man Female No 09/02/24 13:29 HX of Motion Sickness No 09/02/24 13:29 HX of N/V After Surgery No 09/02/24 13:29 Non-Smoker Yes 09/02/24 13:29 Duration of Surgery greater No 09/02/24 13:29 than 60 minutes Number of Risk Factors 1 09/02/24 13:29 PONV Score Low Risk 09/02/24 13:29 Height & Weight Height & Weight: Anesthesia: Height & Weight Height 5 ft 9 in 09/14/24 09:39 Weight: 48.1 kg 09/14/24 09:39 Body Mass Index (BMI) 15.6 09/14/24 09:39 Respiratory Assessment Respiratory Assessment - emergency man: Respiratory Tract Infection Hx - emergency man Hx Respiratory Tract Infection No 09/02/24 13:29 STOP Sleep Apnea STOP Sleep Apnea - emergency man: STOP Sleep Apnea - emergency man Hx Hypertension No 09/02/24 13:29 Hx Sleep Apnea No 09/02/24 13:29 CPAP No 02/03/24 16:40 BIPAP No 02/02/24 10:36 Do you snore loudly (louder No 09/02/24 13:29 than talking or can be heard Do you often feel tired/ Yes 09/02/24 13:29 fatigued/ sleepy during daytime? Has anyone observed you stop No 09/02/24 13:29 breathing during sleep? STOP Results Negative 09/02/24 13:29 QUESTION #5 FULL TEXT : Do you snore loudly (louder than talking or can be heard through closed doors)? 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 Specify any problems Hx of Preganancy in last 3 N/A 09/02/24 13:29 Months Nurse Filling Out Transfusion DSCHRIBER 09/02/24 13:29 & Questions: Date: 09/02/24 09/02/24 13:29 Time: 13:30 09/02/24 13:29 Patient unable to answer at this time (ie. confused, unrespo /Reproduction History /Reproductive History - emergency man: /Reproductive Hx- emergency man Hx Now No 09/02/24 13:29 Gestational Age (in weeks): EDC: Hx Hx Para Hx Section SAB No 09/02/24 13:29 Active Medications Active Medications: Current Medications Generic Name Dose Route Start Last Admin Trade Name Freq PRN Reason Stop Dose Admin Cefazolin Sodium 2 gm/ Sodium 110 mls @ 150 mls/hr 09/14/24 11:25 Chloride IV 09/14/24 12:08 INTRAOP ONE Lactated Ringer's 1,000 mls @ 15 mls/hr 09/14/24 09:15 09/14/24 09:44 IV 15 mls/hr .Q48H EDWARD Administration PFSH Medical History Wears hearing aid Pressure ulcer Ambulates with cane Easy bruising History of broken collarbone Blackout Shortness of breath on exertion Hx of fracture of hip Former smoker Vitamin D insufficiency Abnormal results of thyroid function studies Loss of hearing Wears glasses Wears partial dentures Cancer Alcohol use Arthritis Back pain History of edema History of SIADH Chronic bronchitis Hydronephrosis Former smoker Closed intertrochanteric fracture of left femur Kidney failure Prostate cancer Hyponatremia Prostatic cancer Home Medications ?Medication ?Instructions ?Recorded ?Last Taken ?Type NK 03/31/24 Unknown History Allergy/AdvReac Type Severity Reaction Status Date / Time No Known Allergies Allergy Verified 09/14/24 09:38 Family History Mother Heart disease Father Heart disease Surgical History History of cystoscopy Hx of cystoscopy History of open reduction and internal fixation (ORIF) procedure History of open reduction and internal fixation (ORIF) procedure History of transurethral resection of prostate Status post appendectomy History of renal stent H/O hernia repair Social History household members: spouse and other details: 2 st0ry house. He sleeps downstairs in a recliner. 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 09/14/24 1032 <Electronically signed by Kamar campo MD> Date _ Kamar Jones MD Cosigner Signature: Date CC: ~ Signed [facility] Work Phone: 1(828) 555-962906-18-2025 Procedure note [facility] Medical Records Department [address] [place] [address] Operative Report 09/14/24 1152 MR#: [id number] Acct: [id number] Name: ELIESER VILLEGAS Rep #:[id number] : 1935 88 From: Gildardo Hollingsworth MD PCP: Dr. 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 Post-Operative Diagnosis: Same Surgery/Procedure Performed: Cystoscopy and right stent change and retrograde pyelogram skidder: No Type of Anesthesia: MAC RN Documented Start/Stop Times: Operation Date: 09/14/24 11:25 Case Time Into Pre-Op 09/14/24 09:14 Out of Pre-Op 09/14/24 11:21 Anesthesia Start 09/14/24 11:28 Into Room 09/14/24 11:28 Procedure Start Time: 11:28 Procedure Stop Time: 11:53 Select all DRAINS/GRAFTS/IMPLANTS that apply: Drains Drain details: 6 x 26 stent Estimated Blood Loss: 0 Specimen collected: No Description of surgery: Patient was taken back to the operating room after induction of general anesthesia, the patient wasplaced in dorsolithotomy position. The urethra and genitals were prepped and draped in usual sterile fashion. Using a 21 Italian rigid cystourethroscope the entire length of the urethra was normal then went into the bladder. Identified the trigone the left and right ureteral orifice. I then cannulated the right ureteral orifice and advanced a wire up into the kidney. I then backloaded a 5 Italian open ended catheter over the wire and injected contrast to delineate the anatomy. After the retrograde was performed I then used fluoroscopic images and guidance to advanced a wire up into the kidney and over the 0.038 glidewire I advanced a 6 Italian by 26 cm double pigtail stent. I then pulled the 0.038 Glidewire off and the stent coiled in the kidney bladder good position. The bladder was then drained. We confirmed the position of the stent by fluoroscopy. Patient anesthetic was reversed and was taken back to the PACU in good condition. Surgical Findings: NEW STENT OLD STENT SIGNIFICANT ENCRUSTED Complications Complications: No Admit VTE Documentation VTE Present on Admission: No VTE Mechan Device Prophylaxis: SCD's VTE Pharm Prophylaxis ordered?: No 09/14/24 1154 Cosigner Signature (if applicable): CC: Dr. Gildardo Hollingsworth MD; Dr. Johnny Shelton DO~ Signed [facility]06-18-2025 Consult note [facility] Medical Records Department [address] [place] [address] Pre-Anesthesia Evaluation 09/14/24 1027 MR#: [id number] Acct: [id number] Name: ELIESER VILLEGAS Polo Rep #:[id number] : 1935 88 From: Kamar Jones MD PCP: Dr. Johnny Shelton DO Status:REG SDC Y Race: C Location: [facility]21-1 ASA Classification* ASA Classification ASA Classification: 3 Assessment & Plan Anesthesia* Anesthesia Assessment Anesthesia Assessment: Discussed sedation and/or anesthesia options, risks, benefits, and alternatives with patient/parents/legal guardian/POA. Questions invited. The patient/parents/legal guardian/POA seems to understand and agrees to proceedwith anesthesia plan. Reviewed the physical assessment, medical history, allergy history and patient home medications list prior to surgery/procedure/anesthetic and documented any changes. Performed airway and anesthesia risk assessments. Anesthesia Type Anesthesia Type: MAC History Source History Obtained from:: Patient and Chart Anesthesia Focused Assessment* Temperature: 97.6 F Pulse Rate: 72 Blood Pressure: 134/93 Respiratory Rate: 16 Pulse Ox: 97 Oxygen Delivery Method: Room Air Airway Assessment Mouth opens: >3 cm Mallampati Score: III Teeth Condition: Partial (Patient has upper partial.) Neck Range of motion (ROM): Limited ROM (Somewhat decreased extension) Labs Anesthesia Preop lab: CBC WBC 12.1 K/mm3 (4.4-11.0) H 03/14/24 22:40 4 RBC 3.93 M/mm3 (4.6-6.2) L 03/14/24 22:40 03/14/24 Hgb 11.9 g/dL (13.0-16.5) L 03/14/24 22:40 4 Hct 35.9 % (40-54) L 03/14/24 22:40 03/14/24 Plt Count 376 K/mm3 (150-450) 03/14/24 22:40 03/14/24 CHEMISTRY Potassium 4.7 mmol/L (3.5-5.1) 03/14/24 22:40 03/14/24 Sodium 130 mmol/L (136-145) L 03/14/24 22:40 03/14/24 Magnesium 2.1 mg/dL (1.6-2.6) 03/09/24 00:15 03/09/24 Phosphorus 3.0 mg/dL (2.5-4.9) 03/09/24 00:15 03/09/24 BUN 21 mg/dL (7-18) H 03/14/24 22:40 03/14/24 Creatinine 0.94 mg/dL (0.70-1.30) 03/14/24 22:40 03/14/24 Glucose 123 mg/dL (74-106) H 03/14/24 22:40 03/14/24 TSH 0.77 uIU/mL (0.358-3.74) 10/10/21 15:22 COAG PT 14.0 SECONDS (11.7-14.9) 04/09/23 21:15 Pre-Assessment Diagnosis/Proposed Procedure Planned Operative Procedure(s): RIGHT STENT CHANGE CYSTO Anesthesia History Anesthesia History - emergency man: Anesthesia History - emergency man Hx Hospitalization No 09/02/24 13:29 Any Problems With Anesthesia No 09/02/24 13:29 Cholinesterase deficiency No 09/02/24 13:29 You/Your Family Experience No 09/02/24 13:29 fever (hyperthermia) with Relationship Recent Exposure to Contagious No 09/14/24 09:39 Disease Does patient have nerve No 09/02/24 13:29 stimulator Patient instructed to have device shut off --Does patient have Pacemaker No 09/14/24 09:39 or ICD? When Was Last Pacemaker Check QUESTION #4 FULL TEXT: You/Your Family Experience fever (hyperthermia) with Anesthesia Last Oral Intake Last Oral intake: Last Oral Intake NPO since 18:00 09/14/24 09:39 Meds taken in AM with sips of No 09/14/24 09:39 water? Meds patient instructed to take am of surgery PONV PONV - emergency man: PONV - emergency man Female No 09/02/24 13:29 HX of Motion Sickness No 09/02/24 13:29 HX of N/V After Surgery No 09/02/24 13:29 Non-Smoker Yes 09/02/24 13:29 Duration of Surgery greater No 09/02/24 13:29 than 60 minutes Number of Risk Factors 1 09/02/24 13:29 PONV Score Low Risk 09/02/24 13:29 Height & Weight Height & Weight: Anesthesia: Height & Weight Height 5 ft 9 in 09/14/24 09:39 Weight: 48.1 kg 09/14/24 09:39 Body Mass Index (BMI) 15.6 09/14/24 09:39 Respiratory Assessment Respiratory Assessment - emergency man: Respiratory Tract Infection Hx - emergency man Hx Respiratory Tract Infection No 09/02/24 13:29 STOP Sleep Apnea STOP Sleep Apnea - emergency man: STOP Sleep Apnea - emergency man Hx Hypertension No 09/02/24 13:29 Hx Sleep Apnea No 09/02/24 13:29 CPAP No 02/03/24 16:40 BIPAP No 02/02/24 10:36 Do you snore loudly (louder No 09/02/24 13:29 than talking or can be heard Do you often feel tired/ Yes 09/02/24 13:29 fatigued/ sleepy during daytime? Has anyone observed you stop No 09/02/24 13:29 breathing during sleep? STOP Results Negative 09/02/24 13:29 QUESTION #5 FULL TEXT : Do you snore loudly (louder than talking or can be heard through closeddoors)? 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 Specify any problems Hx of Preganancy in last 3 N/A 09/02/24 13:29 Months Nurse Filling Out Transfusion DSCHRIBER 09/02/24 13:29 & Questions: Date: 09/02/24 09/02/24 13:29 Time: 13:30 09/02/24 13:29 Patient unable to answer at this time (ie. confused, unrespo /Reproduction History /Reproductive History - emergency man: /Reproductive Hx- emergency man Hx Now No 09/02/24 13:29 Gestational Age (in weeks): EDC: Hx Hx Para Hx Section SAB No 09/02/24 13:29 Active Medications Active Medications: Current Medications Generic Name Dose Route Start Last Admin Trade Name Freq PRN Reason Stop Dose Admin Cefazolin Sodium 2 gm/ Sodium 110 mls @ 150 mls/hr 09/14/24 11:25 Chloride IV 09/14/24 12:08 INTRAOP ONE Lactated Ringer's 1,000 mls @ 15 mls/hr 09/14/24 09:15 09/14/24 09:44 IV 15 mls/hr .Q48H EDWARD Administration PFSH Medical History Wears hearing aid Pressure ulcer Ambulates with cane Easy bruising History of broken collarbone Blackout Shortness of breath on exertion Hx of fracture of hip Former smoker Vitamin D insufficiency Abnormal results of thyroid function studies Loss of hearing Wears glasses Wears partial dentures Cancer Alcohol use Arthritis Back pain History of edema History of SIADH Chronic bronchitis Hydronephrosis Former smoker Closed intertrochanteric fracture of left femur Kidney failure Prostate cancer Hyponatremia Prostatic cancer Home Medications ?Medication ?Instructions ?Recorded ?Last Taken ?Type NK 03/31/24 Unknown History Allergy/AdvReac Type Severity Reaction Status Date / Time No Known Allergies Allergy Verified 09/14/24 09:38 Family History Mother Heart disease Father Heart disease Surgical History History of cystoscopy Hx of cystoscopy History of open reduction and internal fixation (ORIF) procedure History of open reduction and internal fixation (ORIF) procedure History of transurethral resection of prostate Status post appendectomy History of renal stent H/O hernia repair Social History household members: spouse and other details: 2 st0ry house. He sleeps downstairs in a recliner. 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 09/14/24 1032 jahaira CRABTREE> Date _ Kamar Jones MD Cosigner Signature: Date CC: ~ Signed [facility]05-06-2025 Progress note Author Gabriel Roque [facility] Note Date/Time August 02, 2024 5:38pm [facility] [address] [place] [address] Progress Note - Wound Care 08/02/24 1735 MR#: [id number] Acct: [id number] Name: ELIESER VILLEGAS Rep #:[id number] : 1935 88 From: Gabriel Roque MD PCP: Dr. Johnny Shelton, DO Status:REG RCR Location: History of Present Illness Date of Service: 08/01/24 Chief Complaint: Stage 2 pressure ulcer left buttock History of Wound: This is an 88-year-old male that presented to the Wound Healing Center for evaluation and treatment of a left buttock ulcer. He has been seen in the past by another provider but had transportation issues and was not consistent with follow up. This ulcer has come and gone over the several years. He has used many topical treatments including Calmoseptine and Aquaphor to the area. He sits on a donut cushion when he is sitting on his couch which iswhere he spends the majority of his time during the day. He has lost approx. 40 lbs over the last several years which he attributes to some of the cause of the ulcer as he does not have as much subcutaneous tissue between his skin and his ischium. Labs from 03/14/24 showed Albumin 2.2. He does eat well but does not like protein shakes or yogurt. He is currently drinking Boost. He has a history of CKD Stage II, COPD, reduced BMI/malnutrition, on Eliquis, and frequent falls and recurrent trips to the ED. PCP is Dr. Shelton. He has home health. He tends to be non compliant in his care. Subjective Subjective 11 July 2024: Doing well overall with wound care. Reports that he has been attempting to pressure offload with a cushion (uses a gel cushion). Current encounter, 01 Aug 2024: Reports excellent wound care and has been pressure offloading with a cushion; however, he sleeps sitting in a chair. We discussed sleeping in a different position so as to prevent constant pressure on the wound. Objective Data Objective Data Vital Signs: Vital Signs Temp Pulse Resp BP O2 Del Method 97.3 F L 90 16 120/51 L Room Air 08/01/24 14:33 08/01/24 14:33 08/01/24 14:33 08/01/24 14:33 08/01/24 14:33 Oxygen Delivery Method Room Air Weight: 116 lb 11.779 oz Body Mass Index (BMI) 17.2 Charges/Coding Wound Center CF Procedures 96XXX-98XXX: 39931 RMVL DEVITAL TIS 20 CM/< Multi Select Codes Wound Center CF Procedures 96XXX-98XXX: 43536 RMVL DEVITAL TIS 20 CM/< Physical Exam Const alert and no apparent distress General Appearance: cooperative and comfortable Orientation / Consciousness: awake Exam Limitations: no limitations HEENT normocephalic and head/scalp atraumatic Head and Scalp: normal to inspection, normocephalic and atraumatic Face and Sinus: normal facial exam Nose: external nose normal Eyes General Eye: normal appearance of both eyes Resp normal respiratory effort, normal air movement, no retractions and no use of accessory muscles Effort and Inspection: able to speak in complete sentences Cardio regular rate and regular rhythm Back/Spine normal ROM Skin Wound Narrative: A stage 2 pressure ulceration is noted on the left buttock. Dimensions are one by one and 0.1 cm. The base of the ulcer is generally pink and healthy in appearance, with a moderate amount of bioburden and fibrinous exudate with fat layer exposed (through the dermis). There is no sign of infection or cellulitis. Neuro oriented x3 and moves all extremities Sensorium / Orientation: awake, alert, oriented to person, oriented to place andoriented to time Psych mental status grossly normal Appearance: appropriate Debridement Note Debridement Note Wound debrided: Left buttock wound Laterality: Left Wound Grade/Stage: Stage II Type of Debridement: Excisional debridement Anesthesia Used: 4% Lidocaine Solution Depth: Down to and including healthy tissue Percentage of wound debrided: 100 Instrument Used: 5mm curette Tissue Removed: Necrotic fibrinous exudate and biofilm Severity: Limited To Skin Breakdown Amount of bleeding with debridement: Mild Bleeding Controlled with: Compression and gauze Patient tolerated procedure: Patient tolerated procedure well Post-Debridement Measurements and Additional Note: Post-Debridement Measurements/Treatment - Nurse 1 - General Ulcer Assessment Start: 08/01/24 14:33 Freq: Status: Active Protocol: MAGALY Activity Type Activity Date Activity User E-sign Co-sign Detail Recorded Client Recorded Date Recorded By Document 08/01/24 14:33 WILMER [id number] 08/01/24 14:37 WILMER 08/01/24 14:33 WC - Today's Visit Information Type of service Follow-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 ) Arrival Mode Ambulatory,Cane Patient Identification Verified (Name & Yes ) Height and Weight Body Mass Index (BMI) 17.2 BMI Classification Underweight Vital Signs Temperature (97.8 F-99.1 F) 97.3 F L Temperature Source Temporal Pulse Rate (60-100) 90 Pulse Location Monitor Respiratory Rate (12-18) 16 Respiratory rate source Observation Oxygen Delivery Method Room Air Blood Pressure (90/60-120/80) 120/51 L Blood Pressure Mean (mm Hg) 74 Source Monitor Position Semi-Fowlers Blood Pressure Location Right Arm History Since Last Visit- (Skip if this is Patient's initial visit) Have you changed medications since your No last visit? Any new allergies or adverse reactions No Had a fall/change in ADL's that may No increase risk of falls Signs or symptoms of abuse and/or No neglect since last visit Have you been in the hospital since your No last visit? Has dressing in place as prescribed Yes Has compression in place as prescribed N/A Has offloadiing in place as prescribed N/A Experienced any changes in pain level or No management Left Footwear Regular Shoe Right Footwear Regular Shoe Pain Scale: 0-10 Numeric Is Patient Pain Free? Yes - Nurse 1 - General Ulcer Measurement Start: 08/01/24 14:33 Freq: Status: Active Protocol: Activity Type Activity Date Activity User E-sign Co-sign Detail Recorded Client Recorded Date Recorded By Document 08/01/24 14:33 KW [id number] 08/01/24 14:37 08/01/24 14:33 Wound Center Nurse 1 #3 L Buttock Cluster -Current Size (cm) - Length 3 -Current Size (cm) - Width 2.4 -Current Size (cm) - Depth 0.1 -Total Square Cm 7.2 -Date of Last Picture (Recall this 08/01/24 field) -Exudate Amt Small -Exudate Type Serosanguineous -Wound Margin Distinct, Outline Attached -Granulation Amt Large (67-100%) -Granulation Quality Red -Texture (Ela-wound Skin Appearance) Assessed -Moisture (Ela-wound Skin Appearance) Assessed -Color (Ela-wound Skin Appearance) Assessed, Hemosiderin Staining -Temperature (Ela-wound Skin No Abnormality Appearance) (Pt Warm) -Tenderness on Palpation (Ela-wound No Skin Appearance) -Ulcer Cleansing Rinsed/ Irrigated with Saline -Foul Odor after Cleansing No -Anesthetic Used 5% Lidocaine Gel WC - Nurse 2 - General Ulcer CM Notes Start: 08/01/24 14:33 Freq: Status: Active Protocol: Activity Type Activity Date Activity User E-sign Co-sign Detail Recorded Client Recorded Date Recorded By Document 08/01/24 14:59 [id number] 08/01/24 15:00 08/01/24 14:59 Wound Center Nurse 2 -Time 14:59 -Correct Patient Yes -Correct Side, Site, Position Yes -Correct Procedure Yes -Procedure Performed Yes -Type of Procedure Debridement -Clinical Debridement Epidermis / Dermis -Tissue Removed Epidermis -Post Debridement (cm) - Length 1 -Post Debridement (cm) - Width 1 -Post Debridement (cm) - Depth 0.1 -Total Square (Post) (cm) 1 -Area of Debridement (cm) - Length 1 -Area of Debridement (cm) - Width 1 -Total Square (Area) (cm) 1 -Tunneling No -Undermining/Tunneling No -Circular Undermining No -Wound/Ulcer Outcome Not Healed -Ulcer Cleansing Rinsed/ Irrigated with Saline -Foul Odor after Cleansing No -Bioengineered Tissue No -Bleeding Controlled with Pressure -Treatment Response Procedure Tolerated Well -Offloading No -Debridement - Open, 1st 20sq cm Yes Pain Scale: 0-10 Numeric Is Patient Pain Free? Yes WC - Nurse 3 - General Ulcer D/C NN Start: 08/01/24 14:33 Freq: Status: Active Protocol: Activity Type Activity Date Activity User E-sign Co-sign Detail Recorded Client Recorded Date Recorded By Document 08/01/24 15:05 WILMER [id number] 08/01/24 15:06 KW 08/01/24 15:05 Wound Care Center Nurse 3 #3 L Buttock Cluster -Ulcer Cleansing Rinsed/ Irrigated with Saline -Other Dressing hydrogel -Primary Dressing Covered/Secured with Dry Gauze, Secured with Tape -Hydrogel 1 Pain Scale: 0-10 Numeric Is Patient Pain Free? Yes Assessment/Plan Assessment/Plan (1) Decubitus ulcer of left buttock, stage 2: CODE(S): L89.322 - Pressure ulcer of left buttock, stage 2 (2) Malnutrition: CODE(S): E46 - Unspecified protein-calorie malnutrition QUALIFIERS: Malnutrition type: protein-calorie malnutrition Protein-calorie malnutrition severity: moderate Qualified Code(s): E44.0 - Moderate protein- calorie malnutrition (3) Debility: CODE(S): R53.81 - Other malaise (4) DVT prophylaxis: CODE(S): Z29.9 - Encounter for prophylactic measures, unspecified PLAN: Plan Patient evaluated at the wound healing center today. Hydrogel 3 times per day to the buttock wound Encouraged him to off load to help prevent pressure on the ulcer and the surrounding area. Encouraged him to walk and stand to help with off loading. He drinks a boost a day but he needs better protein intake. Plan for nutrition consultation at next appointment Follow-up in 3 weeks 08/02/248 <Electronically signed by Gabriel Roque MD> Cosigner Signature (if applicable): CC: ~ Signed [facility] Work Phone: 1(500) 610-728905-06-2025 Progress note [facility] [address] [place] [address] Progress Note - Wound Care 08/02/24 1735 MR#: [id number] Acct: [id number] Name: ELIESER VILLEGAS Rep #:[id number] : 1935 88 From: Gabriel Roque MD PCP: Dr. Johnny Cat, DO Status:REG RCR Location: History of Present Illness Date of Service: 08/01/24 Chief Complaint: Stage 2 pressure ulcer left buttock History of Wound: This is an 88-year-old male that presented to the Wound Healing Center for evaluation and treatment of a left buttock ulcer. He has been seen in the past by another provider but hadtransportation issues and was not consistent with follow up. This ulcer has come and gone over the several years. He has used many topical treatments including Calmoseptine and Aquaphor to the area. He sits on a donut cushion when he is sitting on his couch which iswhere he spends the majority of his time during the day. He has lost approx. 40 lbs over the last several years which he attributes to some of the cause of the ulcer as he does not have as much subcutaneous tissue between his skin and his ischium. Labs from 03/14/24 showed Albumin 2.2. He does eat well but does not like protein shakes or yogurt. He is currently drinking Boost. He has a history of CKD Stage II, COPD, reduced BMI/malnutrition, on Eliquis, and frequent falls and recurrent trips to the ED. PCP is Dr. Shelton. He has home health. He tends to be non compliant in his care. Subjective Subjective 11 July 2024: Doing well overall with wound care. Reports that he has been attempting to pressure offload with a cushion (uses a gel cushion). Current encounter, 01 Aug 2024: Reports excellent wound care and has been pressure offloading with a cushion; however, he sleeps sitting in a chair. We discussed sleeping in a different position so as to prevent constant pressure on the wound. Objective Data Objective Data Vital Signs: Vital Signs Temp Pulse Resp BP O2 Del Method 97.3 F L 90 16 120/51 L Room Air 08/01/24 14:33 08/01/24 14:33 08/01/24 14:33 08/01/24 14:33 08/01/24 14:33 Oxygen Delivery Method Room Air Weight: 116 lb 11.779 oz Body Mass Index (BMI) 17.2 Charges/Coding Wound Center CF Procedures 96XXX-98XXX: [id number] RMVL DEVITAL TIS 20 CM/< Multi Select Codes Wound Center CF Procedures 96XXX-98XXX: 44056 RMVL DEVITAL TIS 20 CM/< Physical Exam Const alert and no apparent distress General Appearance: cooperative and comfortable Orientation / Consciousness: awake Exam Limitations: no limitations HEENT normocephalic and head/scalp atraumatic Head and Scalp: normal to inspection, normocephalic and atraumatic Face and Sinus: normal facial exam Nose: external nose normal Eyes General Eye: normal appearance of both eyes Resp normal respiratory effort, normal air movement, no retractions and no use of accessory muscles Effort and Inspection: able to speak in complete sentences Cardio regular rate and regular rhythm Back/Spine normal ROM Skin Wound Narrative: A stage 2 pressure ulceration is noted on the left buttock. Dimensions are one by one and 0.1 cm. The base of the ulcer is generally pink and healthy in appearance, with a moderate amount of bioburden and fibrinous exudate with fat layer exposed (through the dermis). There is no sign of infection or cellulitis. Neuro oriented x3 and moves all extremities Sensorium / Orientation: awake, alert, oriented to person, oriented to place andoriented to time Psych mental status grossly normal Appearance: appropriate Debridement Note Debridement Note Wound debrided: Left buttock wound Laterality: Left Wound Grade/Stage: Stage II Type of Debridement: Excisional debridement Anesthesia Used: 4% Lidocaine Solution Depth: Down to and including healthy tissue Percentage of wound debrided: 100 Instrument Used: 5mm curette Tissue Removed: Necrotic fibrinous exudate and biofilm Severity: Limited To Skin Breakdown Amount of bleeding with debridement: Mild Bleeding Controlled with: Compression and gauze Patient tolerated procedure: Patient tolerated procedure well Post-Debridement Measurements and Additional Note: Post-Debridement Measurements/Treatment - Nurse 1 - General Ulcer Assessment Start: 08/01/24 14:33 Freq: Status: Active Protocol: MAGALY Activity Type Activity Date Activity User E-sign Co-sign Detail Recorded Client Recorded Date Recorded By Document 08/01/24 14:33 WILMER [id number] 08/01/24 14:37 KW 08/01/24 14:33 - Today's Visit Information Type of service Follow-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 ) Arrival Mode Ambulatory,Cane Patient Identification Verified (Name & Yes ) Height and Weight Body Mass Index (BMI) 17.2 BMI Classification Underweight Vital Signs Temperature (97.8 F-99.1 F) 97.3 F L Temperature Source Temporal Pulse Rate (60-100) 90 Pulse Location Monitor Respiratory Rate (12-18) 16 Respiratory rate source Observation Oxygen Delivery Method Room Air Blood Pressure (90/60-120/80) 120/51 L Blood Pressure Mean (mm Hg) 74 Source Monitor Position Semi-Fowlers Blood Pressure Location Right Arm History Since Last Visit- (Skip if this is Patient's initial visit) Have you changed medications since your No last visit? Any new allergies or adverse reactions No Had a fall/change in ADL's that may No increase risk of falls Signs or symptoms of abuse and/or No neglect since last visit Have you been in the hospital since your No last visit? Has dressing in place as prescribed Yes Has compression in place as prescribed N/A Has offloadiing in place as prescribed N/A Experienced any changes in pain level or No management Left Footwear Regular Shoe Right Footwear Regular Shoe Pain Scale: 0-10 Numeric Is Patient Pain Free? Yes WC - Nurse 1 - General Ulcer Measurement Start: 08/01/24 14:33 Freq: Status: Active Protocol: Activity Type Activity Date Activity User E-sign Co-sign Detail Recorded Client Recorded Date Recorded By Document 08/01/24 14:33 KW [id number] 08/01/24 14:37 KW 08/01/24 14:33 Wound Center Nurse 1 #3 L Buttock Cluster -Current Size (cm) - Length 3 -Current Size (cm) - Width 2.4 -Current Size (cm) - Depth 0.1 -Total Square Cm 7.2 -Date of Last Picture (Recall this 08/01/24 field) -Exudate Amt Small -Exudate Type Serosanguineous -Wound Margin Distinct, Outline Attached -Granulation Amt Large (67-100%) -Granulation Quality Red -Texture (Ela-wound Skin Appearance) Assessed -Moisture (Ela-wound Skin Appearance) Assessed -Color (Ela-wound Skin Appearance) Assessed, Hemosiderin Staining -Temperature (Ela-wound Skin No Abnormality Appearance) (Pt Warm) -Tenderness on Palpation (Ela-wound No Skin Appearance) -Ulcer Cleansing Rinsed/ Irrigated with Saline -Foul Odor after Cleansing No -Anesthetic Used 5% Lidocaine Gel WC - Nurse 2 - General Ulcer CM Notes Start: 08/01/24 14:33 Freq: Status: Active Protocol: Activity Type Activity Date Activity User E-sign Co-sign Detail Recorded Client Recorded Date Recorded By Document 08/01/24 14:59 JF [id number] 08/01/24 15:00 08/01/24 14:59 Wound Center Nurse 2 -Time 14:59 -Correct Patient Yes -Correct Side, Site, Position Yes -Correct Procedure Yes -Procedure Performed Yes -Type of Procedure Debridement -Clinical Debridement Epidermis / Dermis -Tissue Removed Epidermis -Post Debridement (cm) - Length 1 -Post Debridement (cm) - Width 1 -Post Debridement (cm) - Depth 0.1 -Total Square (Post) (cm) 1 -Area of Debridement (cm) - Length 1 -Area of Debridement (cm) - Width 1 -Total Square (Area) (cm) 1 -Tunneling No -Undermining/Tunneling No -Circular Undermining No -Wound/Ulcer Outcome Not Healed -Ulcer Cleansing Rinsed/ Irrigated with Saline -Foul Odor after Cleansing No -Bioengineered Tissue No -Bleeding Controlled with Pressure -Treatment Response Procedure Tolerated Well -Offloading No -Debridement - Open, 1st 20sq cm Yes Pain Scale: 0-10 Numeric Is Patient Pain Free? Yes WC - Nurse 3 - General Ulcer D/C NN Start: 08/01/24 14:33 Freq: Status: Active Protocol: Activity Type Activity Date Activity User E-sign Co-sign Detail Recorded Client Recorded Date Recorded By Document 08/01/24 15:05 [id number] 08/01/24 15:06 08/01/24 15:05 Wound Care Center Nurse 3 #3 L Buttock Cluster -Ulcer Cleansing Rinsed/ Irrigated with Saline -Other Dressing hydrogel -Primary Dressing Covered/Secured with Dry Gauze, Secured with Tape -Hydrogel 1 Pain Scale: 0-10 Numeric Is Patient Pain Free? Yes Assessment/Plan Assessment/Plan (1) Decubitus ulcer of left buttock, stage 2: CODE(S): L89.322 - Pressure ulcer of left buttock, stage 2 (2) Malnutrition: CODE(S): E46 - Unspecified protein-calorie malnutrition QUALIFIERS: Malnutrition type: protein-calorie malnutrition Protein-calorie malnutrition severity: moderate Qualified Code(s): E44.0 - Moderate protein- calorie malnutrition (3) Debility: CODE(S): R53.81 - Other malaise (4) DVT prophylaxis: CODE(S): Z29.9 - Encounter for prophylactic measures, unspecified PLAN: Plan Patient evaluated at the wound healing center today. Hydrogel 3 times per day to the buttock wound Encouraged him to off load to help prevent pressure on the ulcer and the surrounding area. Encouraged him to walk and stand to help with off loading. He drinks a boost a day but he needs better protein intake. Plan for nutrition consultation at nextappointment Follow-up in 3 weeks 08/02/24 [id number] Cosigner Signature (if applicable): CC: ~ Signed [facility]03-13-2025 Progress note Author Marine Hubbard [facility] Note Date/Time June 09, 2024 10: 21am [facility] [address] [place] [address] Progress Note - Wound Care 06/08/24 1603 MR#: [id number] Acct: [id number] Name: ELIESER VILLEGAS Rep #:[id number] : 1935 88 From: Marine wei 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-C PCP: Dr. Johnny Shelton, DO Status:REG RCR Location: History of Present Illness Date of Service: 06/08/24 Chief Complaint: Stage 2 pressure ulcer left buttock History of Wound: This is an 88-year-old male that presented to the Wound Healing Center for evaluation and treatment of a left buttock ulcer. He has been seen in the past by another provider but had transportation issues and was not consistent with follow up. This ulcer has come and gone over the several years. He has used many topical treatments including Calmoseptine and Aquaphor to the area. He sits on a donut cushion when he is sitting on his couch which iswhere he spends the majority of his time during the day. He has lost approx. 40 lbs over the last several years which he attributes to some of the cause of the ulcer as he does not have as much subcutaneous tissue between his skin and his ischium. Labs from 03/14/24 showed Albumin 2.2. He does eat well but does not like protein shakes or yogurt. He is currently drinking Boost. He has a history of CKD Stage II, COPD, reduced BMI/malnutrition, on Eliquis, and frequent falls and recurrent trips to the ED. PCP is Dr. Shelton. He has home health. He tends to be non compliant in his care. Progress of Wound: Left buttock ulcer is now a cluster. Base of ulcer is pink. Ela wound is erythematous from pressure. Patient admits to sitting for long periods of time.No clinical signs of infection. Objective Data Objective Data Vital Signs: Vital Signs Temp Pulse Resp BP O2 Del Method 98.3 F 91 16 127/67 H Room Air 06/08/24 15:18 06/08/24 15:18 06/08/24 15:18 06/08/24 15:18 06/01/24 13:41 Oxygen Delivery Method Room Air Weight: 116 lb 11.779 oz Body Mass Index (BMI) 17.2 Charges/Coding Procedures Integumentary 111xxx-113xx: 49721 Odette subq tissue 20 sq cm/< Debridement Note Debridement Note Wound debrided: Left buttock ulceration Laterality: Left Wound Grade/Stage: Stage II Type of Debridement: Excisional debridement Anesthesia Used: 5% Lidocaine Gel Depth: Down to and including healthy tissue and in the subcutaneous layer Percentage of wound debrided: 100 Instrument Used: 3mm curette Tissue Removed: Non viable tissue and bioburden Severity: Fat Layer Exposed Amount of bleeding with debridement: Mild Bleeding Controlled with: Compression and gauze Patient tolerated procedure: Patient tolerated procedure well Post-Debridement Measurements and Additional Note: Post-Debridement Measurements/Treatment - Nurse 1 - General Ulcer Assessment Start: 06/01/24 13:41 Freq: Status: Active Protocol: MAGALY Activity Type Activity Date Activity User E-sign Co-sign Detail Recorded Client Recorded Date Recorded By Document 06/01/24 13:41 MT [id number] 06/01/24 13:43 MT Document 06/08/24 15:18 ML [id number] 06/08/24 15:26 ML 06/01/24 06/08/24 13:41 15:18 - Today's Visit Information Type of service Follow-up Visit Follow-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 (Physician/CHANNEL PROCESS SUPERVISOR ) ) Arrival Mode Ambulatory Ambulatory Transfer Assistance None Accompanied by self Patient Identification Verified (Name & Yes Yes ) Patient Requires Transmission-Based No Precautions Safety Precautions Fall Prevention Height and Weight Body Mass Index (BMI) 17.2 17.2 BMI Classification Underweight Underweight Vital Signs Temperature (97.8 F-99.1 F) 97.8 F 98.3 F Temperature Source Temporal Temporal Pulse Rate (60-100) 92 91 Pulse Location Monitor Monitor Respiratory Rate (12-18) 18 16 Respiratory rate source Observation Observation Oxygen Delivery Method Room Air Blood Pressure (90/60-120/80) 93/50 L 127/67 H Blood Pressure Mean (mm Hg) 64 87 Source Monitor Monitor Position Sitting Sitting Blood Pressure Location Right Arm Right Arm History Since Last Visit- (Skip if this is Patient's initial visit) Have you changed medications since your No last visit? Any new allergies or adverse reactions No Had a fall/change in ADL's that may No increase risk of falls Signs or symptoms of abuse and/or No neglect since last visit Has dressing in place as prescribed Yes Yes Has compression in place as prescribed Yes N/A Has offloadiing in place as prescribed Yes N/A Experienced any changes in pain level or Yes No management Left Footwear Regular Shoe Right Footwear Regular Shoe Pain Scale: 0-10 Numeric Is Patient Pain Free? Yes Yes WC - Nurse 1 - General Ulcer Measurement Start: 06/01/24 13:41 Freq: Status: Active Protocol: Activity Type Activity Date Activity User E-sign Co-sign Detail Recorded Client Recorded Date Recorded By Document 06/01/24 13:41 MT [id number] 06/01/24 13:43 MT Document 06/08/24 15:18 ML [id number] 06/08/24 15:26 ML 06/01/24 06/08/24 13:41 15:18 Wound Center Nurse 1 #3 L Buttock Cluster -Current Size (cm) - Length 0.3 0.3 -Current Size (cm) - Width 1.0 0.3 -Current Size (cm) - Depth 0.2 0.1 -Total Square Cm 0.30 0.09 -Photo Taken No -Tunneling No -Undermining/Tunneling No -Circular Undermining No -Exudate Amt Medium Small -Exudate Type Serosanguineous Serous -Wound Margin Flat & Intact Distinct, Outline Attached -Granulation Amt Large (67-100%) Small (1-33%) -Granulation Quality Red -Slough/Fibrin No No -Necrosis Amt None Present (0 %) -Texture (Ela-wound Skin Appearance) Assessed Assessed -Moisture (Ela-wound Skin Appearance) Assessed Assessed -Color (Ela-wound Skin Appearance) No Abnormality Assessed -Temperature (Ela-wound Skin No Abnormality No Abnormality Appearance) (Pt Warm) (Pt Warm) -Tenderness on Palpation (Ela-wound No No Skin Appearance) -Ulcer Cleansing Soap and Water Rinsed/ Irrigated with Saline -Foul Odor after Cleansing No No -Anesthetic Used 5% Lidocaine 5% Lidocaine Gel Gel Lower Limb Edema Present NA WC - Nurse 2 - General Ulcer CM Notes Start: 06/01/24 13:41 Freq: Status: Active Protocol: Activity Type Activity Date Activity User E-sign Co-sign Detail Recorded Client Recorded Date Recorded By Document 06/01/24 13:54 BM [id number] 06/01/24 13:58 BM Document 06/08/24 15:47 DS [id number] 06/08/24 15:48 DS 06/01/24 06/08/24 13:54 15:47 Wound Center Nurse 2 #3 L Buttock Cluster -Time 13:54 15:45 -Correct Patient Yes Yes -Correct Side, Site, Position Yes Yes -Correct Procedure Yes Yes -Procedure Performed Yes Yes -Type of Procedure Debridement Debridement -Clinical Debridement Subcutaneous Subcutaneous -Tissue Removed Subcutaneous Subcutaneous -Post Debridement (cm) - Length 0.3 3.2 -Post Debridement (cm) - Width 1 0.5 -Post Debridement (cm) - Depth 0.2 0.1 -Total Square (Post) (cm) 0.3 1.60 -Area of Debridement (cm) - Length 0.3 3.2 -Area of Debridement (cm) - Width 1 0.5 -Total Square (Area) (cm) 0.3 1.60 -Tunneling No No -Undermining/Tunneling No No -Circular Undermining No No -Wound/Ulcer Outcome Not Healed Not Healed -Ulcer Cleansing Rinsed/ Rinsed/ Irrigated with Irrigated with Saline Saline -Foul Odor after Cleansing No No -Bioengineered Tissue No No -Bleeding Controlled with Pressure Pressure -Treatment Response Procedure Procedure Tolerated Well Tolerated Well -Debridement - Subq, 1st 20sq cm Yes Yes Pain Scale: 0-10 Numeric Is Patient Pain Free? Yes Yes WC - Nurse 3 - General Ulcer D/C NN Start: 06/01/24 13:41 Freq: Status: Active Protocol: Activity Type Activity Date Activity User E-sign Co-sign Detail Recorded Client Recorded Date Recorded By Document 06/01/24 14:03 [facility] [id number] 06/01/24 14:04 [facility] Document 06/08/24 15:55 KW [id number] 06/08/24 15:56 KW 06/01/24 06/08/24 14:03 15:55 Wound Care Center Nurse 3 #3 L Buttock Cluster -Ulcer Cleansing Rinsed/ Irrigated with Saline -Foul Odor after Cleansing No -Primary Dressing Applied Promogran Promogran Hien Matter, Hien Matter, Silicone Border Silicone Border Foam 4x4 Foam 4x4 -Other Dressing MOISTEN HIEN -Promogran Hien Matter 1 1 -Silicone Border Foam 4x4 1 1 Treatment Response Procedure Tolerated Well Pain Scale: 0-10 Numeric Is Patient Pain Free? Yes Yes WC - Visit Discharge Discharge Condition Stable Stable Ambulatory Status Ambulatory,Cane Ambulatory,Cane Transportation Private Auto Private Auto Medication Reconcilliation completed & No provided to patient/care provider Clinical Summary of Care Provided Yes Facility Type Home Health Assessment/Plan Assessment/Plan (1) Decubitus ulcer of left buttock, stage 2: CODE(S): L89.322 - Pressure ulcer of left buttock, stage 2 (2) Malnutrition: CODE(S): E46 - Unspecified protein-calorie malnutrition QUALIFIERS: Malnutrition type: protein-calorie malnutrition Protein-calorie malnutrition severity: moderate Qualified Code(s): E44.0 - Moderate protein- calorie malnutrition (3) Debility: CODE(S): R53.81 - Other malaise (4) DVT prophylaxis: CODE(S): Z29.9 - Encounter for prophylactic measures, unspecified PLAN: Plan Patient evaluated at the wound healing center today. He has home health to assist with with his dressing changes 3 times per week. Wound care - To ulcer in skin crease superior buttocks Moistened Hien coveredwith Markle SAP ideally daily but he only has help 3 days a week, after washing with soap and water. Barrier cream to bilateral buttocks to protect healed skin Encouraged him to off load to help prevent pressure on the ulcer and the surrounding area. Encouraged him to walk and stand to help with off loading. He drinks a boost a day but he needs better protein intake. Follow up 3 weeks. 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 Johnny Shelton, DO Status:REG RCR Location: History of Present Illness Date of Service: 06/08/24 Chief Complaint: Stage 2 pressure ulcer left buttock History of Wound: This is an 88-year-old male that presented to the Wound Healing Center for evaluation and treatment of a left buttock ulcer. He has been seen in the past by another provider but hadtransportation issues and was not consistent with follow up. This ulcer has come and gone over the several years. He has used many topical treatments including Calmoseptine and Aquaphor to the area. He sits on a donut cushion when he is sitting on his couch which iswhere he spends the majority of his time during the day. He has lost approx. 40 lbs over the last several years which he attributes to some of the cause of the ulcer as he does not have as much subcutaneous tissue between his skin and his ischium. Labs from 03/14/24 showed Albumin 2.2. He does eat well but does not like protein shakes or yogurt. He is currently drinking Boost. He has a history of CKD Stage II, COPD, reduced BMI/malnutrition, on Eliquis, and frequent falls and recurrent trips to the ED. PCP is Dr. Shelton. He has home health. He tends to be non compliant in his care. Progress of Wound: Left buttock ulcer is now a cluster. Base of ulcer is pink. Ela wound is erythematous from pressure. Patient admits to sitting for long periods of time.No clinical signs of infection. Objective Data Objective Data Vital Signs: Vital Signs Temp Pulse Resp BP O2 Del Method 98.3 F 91 16 127/67 H Room Air 06/08/24 15:18 06/08/24 15:18 06/08/24 15:18 06/08/24 15:18 06/01/24 13:41 Oxygen Delivery Method Room Air Weight: 116 lb 11.779 oz Body Mass Index (BMI) 17.2 Charges/Coding Procedures Integumentary 111xxx-113xx: 78127 Odette subq tissue 20 sq cm/< Debridement Note Debridement Note Wound debrided: Left buttock ulceration Laterality: Left Wound Grade/Stage: Stage II Type of Debridement: Excisional debridement Anesthesia Used: 5% Lidocaine Gel Depth: Down to and including healthy tissue and in the subcutaneous layer Percentage of wound debrided: 100 Instrument Used: 3mm curette Tissue Removed: Non viable tissue and bioburden Severity: Fat Layer Exposed Amount of bleeding with debridement: Mild Bleeding Controlled with: Compression and gauze Patient tolerated procedure: Patient tolerated procedure well Post-Debridement Measurements and Additional Note: Post-Debridement Measurements/Treatment - Nurse 1 - General Ulcer Assessment Start: 06/01/24 13:41 Freq: Status: Active Protocol: MAGALY Activity Type Activity Date Activity User E-sign Co-sign Detail Recorded Client Recorded Date Recorded By Document 06/01/24 13:41 MT [id number] 06/01/24 13:43 MT Document 06/08/24 15:18 ML [id number] 06/08/24 15:26 ML 06/01/24 06/08/24 13:41 15:18 - Today's Visit Information Type of service Follow-up Visit Follow-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 (Physician/CHANNEL PROCESS SUPERVISOR ) ) Arrival Mode Ambulatory Ambulatory Transfer Assistance None Accompanied by self Patient Identification Verified (Name & Yes Yes ) Patient Requires Transmission-Based No Precautions Safety Precautions Fall Prevention Height and Weight Body Mass Index (BMI) 17.2 17.2 BMI Classification Underweight Underweight Vital Signs Temperature (97.8 F-99.1 F) 97.8 F 98.3 F Temperature Source Temporal Temporal Pulse Rate (60-100) 92 91 Pulse Location Monitor Monitor Respiratory Rate (12-18) 18 16 Respiratory rate source Observation Observation Oxygen Delivery Method Room Air Blood Pressure (90/60-120/80) 93/50 L 127/67 H Blood Pressure Mean (mm Hg) 64 87 Source Monitor Monitor Position Sitting Sitting Blood Pressure Location Right Arm Right Arm History Since Last Visit- (Skip if this is Patient's initial visit) Have you changed medications since your No last visit? Any new allergies or adverse reactions No Had a fall/change in ADL's that may No increase risk of falls Signs or symptoms of abuse and/or No neglect since last visit Has dressing in place as prescribed Yes Yes Has compression in place as prescribed Yes N/A Has offloadiing in place as prescribed Yes N/A Experienced any changes in pain level or Yes No management Left Footwear Regular Shoe Right Footwear Regular Shoe Pain Scale: 0-10 Numeric Is Patient Pain Free? Yes Yes WC - Nurse 1 - General Ulcer Measurement Start: 06/01/24 13:41 Freq: Status: Active Protocol: Activity Type Activity Date Activity User E-sign Co-sign Detail Recorded Client Recorded Date Recorded By Document 06/01/24 13:41 MT [id number] 06/01/24 13:43 MT Document 06/08/24 15:18 ML [id number] 06/08/24 15:26 ML 06/01/24 06/08/24 13:41 15:18 Wound Center Nurse 1 #3 L Buttock Cluster -Current Size (cm) - Length 0.3 0.3 -Current Size (cm) - Width 1.0 0.3 -Current Size (cm) - Depth 0.2 0.1 -Total Square Cm 0.30 0.09 -Photo Taken No -Tunneling No -Undermining/Tunneling No -Circular Undermining No -Exudate Amt Medium Small -Exudate Type Serosanguineous Serous -Wound Margin Flat & Intact Distinct, Outline Attached -Granulation Amt Large (67-100%) Small (1-33%) -Granulation Quality Red -Slough/Fibrin No No -Necrosis Amt None Present (0 %) -Texture (Ela-wound Skin Appearance) Assessed Assessed -Moisture (Ela-wound Skin Appearance) Assessed Assessed -Color (Ela-wound Skin Appearance) No Abnormality Assessed -Temperature (Ela-wound Skin No Abnormality No Abnormality Appearance) (Pt Warm) (Pt Warm) -Tenderness on Palpation (Ela-wound No No Skin Appearance) -Ulcer Cleansing Soap and Water Rinsed/ Irrigated with Saline -Foul Odor after Cleansing No No -Anesthetic Used 5% Lidocaine 5% Lidocaine Gel Gel Lower Limb Edema Present NA WC - Nurse 2 - General Ulcer CM Notes Start: 06/01/24 13:41 Freq: Status: Active Protocol: Activity Type Activity Date Activity User E-sign Co-sign Detail Recorded Client Recorded Date Recorded By Document 06/01/24 13:54 [facility] [id number] 06/01/24 13:58 [facility] Document 06/08/24 15:47 DS [id number] 06/08/24 15:48 DS 06/01/24 06/08/24 13:54 15:47 Wound Center Nurse 2 #3 L Buttock Cluster -Time 13:54 15:45 -Correct Patient Yes Yes -Correct Side, Site, Position Yes Yes -Correct Procedure Yes Yes -Procedure Performed Yes Yes -Type of Procedure Debridement Debridement -Clinical Debridement Subcutaneous Subcutaneous -Tissue Removed Subcutaneous Subcutaneous -Post Debridement (cm) - Length 0.3 3.2 -Post Debridement (cm) - Width 1 0.5 -Post Debridement (cm) - Depth 0.2 0.1 -Total Square (Post) (cm) 0.3 1.60 -Area of Debridement (cm) - Length 0.3 3.2 -Area of Debridement (cm) - Width 1 0.5 -Total Square (Area) (cm) 0.3 1.60 -Tunneling No No -Undermining/Tunneling No No -Circular Undermining No No -Wound/Ulcer Outcome Not Healed Not Healed -Ulcer Cleansing Rinsed/ Rinsed/ Irrigated with Irrigated with Saline Saline -Foul Odor after Cleansing No No -Bioengineered Tissue No No -Bleeding Controlled with Pressure Pressure -Treatment Response Procedure Procedure Tolerated Well Tolerated Well -Debridement - Subq, 1st 20sq cm Yes Yes Pain Scale: 0-10 Numeric Is Patient Pain Free? Yes Yes WC - Nurse 3 - General Ulcer D/C NN Start: 06/01/24 13:41 Freq: Status: Active Protocol: Activity Type Activity Date Activity User E-sign Co-sign Detail Recorded Client Recorded Date Recorded By Document 06/01/24 14:03 [facility] [id number] 06/01/24 14:04 [facility] Document 06/08/24 15:55 KW [id number] 06/08/24 15:56 KW 06/01/24 06/08/24 14:03 15:55 Wound Care Center Nurse 3 #3 L Buttock Cluster -Ulcer Cleansing Rinsed/ Irrigated with Saline -Foul Odor after Cleansing No -Primary Dressing Applied Promogran Promogran Hien Matter, Hien Matter, Silicone Border Silicone Border Foam 4x4 Foam 4x4 -Other Dressing MOISTEN HIEN -Promogran Hien Matter 1 1 -Silicone Border Foam 4x4 1 1 Treatment Response Procedure Tolerated Well Pain Scale: 0-10 Numeric Is Patient Pain Free? Yes Yes WC - Visit Discharge Discharge Condition Stable Stable Ambulatory Status Ambulatory,Cane Ambulatory,Cane Transportation Private Auto Private Auto Medication Reconcilliation completed & No provided to patient/care provider Clinical Summary of Care Provided Yes Facility Type Home Health Assessment/Plan Assessment/Plan (1) Decubitus ulcer of left buttock, stage 2: CODE(S): L89.322 - Pressure ulcer of left buttock, stage 2 (2) Malnutrition: CODE(S): E46 - Unspecified protein-calorie malnutrition QUALIFIERS: Malnutrition type: protein-calorie malnutrition Protein-calorie malnutrition severity: moderate Qualified Code(s): E44.0 - Moderate protein- calorie malnutrition (3) Debility: CODE(S): R53.81 - Other malaise (4) DVT prophylaxis: CODE(S): Z29.9 - Encounter for prophylactic measures, unspecified PLAN: Plan Patient evaluated at the wound healing center today. He has home health to assist with with his dressing changes 3 times per week. Wound care - To ulcer in skin crease superior buttocks Moistened Hien coveredwith Markle SAP ideally daily but he only has help 3 days a week, after washing with soap and water. Barrier cream to bilateral buttocks to protect healed skin Encouraged him to off load to help prevent pressure on the ulcer and the surrounding area. Encouraged him to walk and stand to help with off loading. He drinks a boost a day but he needs better protein intake. Follow up 3 weeks. 06/09/24 1021 Cosigner Signature (if applicable): CC: ~ Signed [facility]03-08-2025 History and physical note Author Franki Alexander [facility] Note Date/Time June 04, 2024 7:39 pm [facility] [address] [place] [address] H&P Exam - Wound Care 06/04/242019 MR#: [id number] Acct: [id number] Name: ELIESER VILLEGAS Rep #:[id number] : 1935 88 From: Franki Cuellar PCP: Dr. Johnny Shelton, DO Status:REG RCR Location: History of Present Illness Date of Service: 06/01/24 Chief Complaint: Stage 2 pressure ulcer left buttock History of Wound: This is an 88-year-old male that presented to the Wound Healing Center for evaluation and treatment of a left buttock ulcer. He has been seen in the past by another provider but had transportation issues and was not consistent with follow up. This ulcer has come and gone over the several years. He has used many topical treatments including Calmoseptine and Aquaphor to the area. He sits on a donut cushion when he is sitting on his couch which iswhere he spends the majority of his time during the day. He has lost approx. 40 lbs over the last several years which he attributes to some of the cause of the ulcer as he does not have as much subcutaneous tissue between his skin and his ischium. Labs from 03/14/24 showed Albumin 2.2. He does eat well but does not like protein shakes or yogurt. He is currently drinking Boost. He has a history of CKD Stage II, COPD, reduced BMI/malnutrition, on Eliquis, and frequent falls and recurrent trips to the ED. PCP is Dr. Shelton. He has home health. He tends to be non compliant in his care. [facility] Medical History Chronic bronchitis Hydronephrosis Chronic cough Hx of fracture of hip History of renal disease Former smoker Vitamin D insufficiency Abnormal results of thyroid function studies Loss of hearing Wears glasses Wears partial dentures Cancer Alcohol use Arthritis Low iron Back pain Heartburn Shortness of breath on exertion History of edema History of SIADH Former smoker Closed intertrochanteric fracture of left femur Kidney failure Prostate cancer Hyponatremia Prostatic cancer Home Medications ?Medication ?Instructions ?Recorded ?Last Taken ?Type NK 03/31/24 Unknown History Allergy/AdvReac Type Severity Reaction Status Date / Time No Known Allergies Allergy Verified 03/31/24 16:12 Family History Mother Heart disease Father Heart disease Surgical History Status post appendectomy History of cystoscopy Hx of cystoscopy History of open reduction and internal fixation (ORIF) procedure History of open reduction and internal fixation (ORIF) procedure History of transurethral resection of prostate History of renal stent H/O hernia repair Social History household members: spouse and other details: 2 stry house. He sleeps downstairs in a recliner. 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 He appears thin and frail. General Appearance: cooperative and comfortable Orientation / Consciousness: awake Exam Limitations: no limitations HEENT normocephalic and head/scalp atraumatic Head and Scalp: normal to inspection, normocephalic and atraumatic Face and Sinus: normal facial exam Nose: external nose normal Eyes General Eye: normal appearance of both eyes Resp normal respiratory effort, normal air movement, no retractions and no use of accessory muscles Effort and Inspection: able to speak in complete sentences Cardio regular rate and regular rhythm Back/Spine normal ROM Skin Wound Narrative: A stage II pressure ulceration is noted on the left buttock. Dimensions are documented elsewhere. The base of the ulcer is generally pink and healthy in appearance, with a moderate amount of bioburden. There is no sign of infection or cellulitis. Neuro oriented x3 and moves all extremities Sensorium / Orientation: awake, alert, oriented to person, oriented to place andoriented to time Psych mental status grossly normal Appearance: appropriate Debridement Note Debridement Note Wound debrided: Left buttock ulceration Laterality: Left Wound Grade/Stage: Stage II Type of Debridement: Excisional debridement Anesthesia Used: 5% Lidocaine Gel Depth: Down to and including healthy tissue and in the subcutaneous layer Percentage of wound debrided: 100 Instrument Used: 3mm curette Tissue Removed: Non viable tissue and bioburden Severity: Fat Layer Exposed Amount of bleeding with debridement: Mild Bleeding Controlled with: Compression and gauze Patient tolerated procedure: Patient tolerated procedure well Post-Debridement Measurements and Additional Note: Post-Debridement Measurements/Treatment - Nurse 1 - General Ulcer Assessment Start: 06/01/24 13:41 Freq: Status: Active Protocol: MAGALY Activity Type Activity Date Activity User E-sign Co-sign Detail Recorded Client Recorded Date Recorded By Document 06/01/24 13:41 CO [id number] 06/01/24 13:43 [facility] 06/01/24 13:41 - Today's Visit Information Type of service Follow-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 ) Arrival Mode Ambulatory Accompanied by self Patient Identification Verified (Name & Yes ) Safety Precautions Fall Prevention Height and Weight Body Mass Index (BMI) 17.2 BMI Classification Underweight Vital Signs Temperature (97.8 F-99.1 F) 97.8 F Temperature Source Temporal Pulse Rate (60-100) 92 Pulse Location Monitor Respiratory Rate (12-18) 18 Respiratory rate source Observation Oxygen Delivery Method Room Air Blood Pressure (90/60-120/80) 93/50 L Blood Pressure Mean 64 Source Monitor Position Sitting Blood Pressure Location Right Arm History Since Last Visit- (Skip if this is Patient's initial visit) Has dressing in place as prescribed Yes Has compression in place as prescribed Yes Has offloadiing in place as prescribed Yes Experienced any changes in pain level or Yes management Left Footwear Regular Shoe Right Footwear Regular Shoe Pain Scale: 0-10 Numeric Is Patient Pain Free? Yes - Nurse 1 - General Ulcer Measurement Start: 06/01/24 13:41 Freq: Status: Active Protocol: Activity Type Activity Date Activity User E-sign Co-sign Detail Recorded Client Recorded Date Recorded By Document 06/01/24 13:41 CO [id number] 06/01/24 13:43 [facility] 06/01/24 13:41 Wound Center Nurse 1 #3 L Buttock Cluster -Current Size (cm) - Length 0.3 -Current Size (cm) - Width 1.0 -Current Size (cm) - Depth 0.2 -Total Square Cm 0.30 -Photo Taken No -Tunneling No -Undermining/Tunneling No -Circular Undermining No -Exudate Amt Medium -Exudate Type Serosanguineous -Wound Margin Flat & Intact -Granulation Amt Large (67-100%) -Granulation Quality Red -Slough/Fibrin No -Texture (Ela-wound Skin Appearance) Assessed -Moisture (Ela-wound Skin Appearance) Assessed -Color (Ela-wound Skin Appearance) No Abnormality -Temperature (Ela-wound Skin No Abnormality Appearance) (Pt Warm) -Tenderness on Palpation (Ela-wound No Skin Appearance) -Ulcer Cleansing Soap and Water -Foul Odor after Cleansing No -Anesthetic Used 5% Lidocaine Gel Lower Limb Edema Present NA WC - Nurse 2 - General Ulcer CM Notes Start: 06/01/24 13:41 Freq: Status: Active Protocol: Activity Type Activity Date Activity User E-sign Co-sign Detail Recorded Client Recorded Date Recorded By Document 06/01/24 13:54 [facility] [id number] 06/01/24 13:58 [facility] 06/01/24 13:54 Wound Center Nurse 2 #3 L Buttock Cluster -Time 13:54 -Correct Patient Yes -Correct Side, Site, Position Yes -Correct Procedure Yes -Procedure Performed Yes -Type of Procedure Debridement -Clinical Debridement Subcutaneous -Tissue Removed Subcutaneous -Post Debridement (cm) - Length 0.3 -Post Debridement (cm) - Width 1 -Post Debridement (cm) - Depth 0.2 -Total Square (Post) (cm) 0.3 -Area of Debridement (cm) - Length 0.3 -Area of Debridement (cm) - Width 1 -Total Square (Area) (cm) 0.3 -Tunneling No -Undermining/Tunneling No -Circular Undermining No -Wound/Ulcer Outcome Not Healed -Ulcer Cleansing Rinsed/ Irrigated with Saline -Foul Odor after Cleansing No -Bioengineered Tissue No -Bleeding Controlled with Pressure -Treatment Response Procedure Tolerated Well -Debridement - Subq, 1st 20sq cm Yes Pain Scale: 0-10 Numeric Is Patient Pain Free? Yes - Nurse 3 - General Ulcer D/C NN Start: 06/01/24 13:41 Freq: Status: Active Protocol: Activity Type Activity Date Activity User E-sign Co-sign Detail Recorded Client Recorded Date Recorded By Document 06/01/24 14:03 [facility] [id number] 06/01/24 14:04 [facility] 06/01/24 14:03 Wound Care Center Nurse 3 #3 L Buttock Cluster -Ulcer Cleansing Rinsed/ Irrigated with Saline -Foul Odor after Cleansing No -Primary Dressing Applied Promogran Hien Matter, Silicone Border Foam 4x4 -Promogran Hien Matter 1 -Silicone Border Foam 4x4 1 Treatment Response Procedure Tolerated Well Pain Scale: 0-10 Numeric Is Patient Pain Free? Yes WC - Visit Discharge Discharge Condition Stable Ambulatory Status Ambulatory,Cane Transportation Private Auto Facility Type Home Health Charges/Coding Multi Select Codes Visit Charges Office Visit/Consults: 56144 OV L3 New 30 min Integumentary Integumentary CPT Codes: 01380 Odette subq tissue 20 sq cm/< Assessment/Plan Assessment/Plan (1) Decubitus ulcer of left buttock, stage 2: CODE(S): L89.322 - Pressure ulcer of left buttock, stage 2 (2) Malnutrition: CODE(S): E46 - Unspecified protein-calorie malnutrition QUALIFIERS: Malnutrition type: protein-calorie malnutrition Protein-calorie malnutrition severity: moderate Qualified Code(s): E44.0 - Moderate protein- calorie malnutrition (3) Debility: CODE(S): R53.81 - Other malaise (4) DVT prophylaxis: CODE(S): Z29.9 - Encounter for prophylactic measures, unspecified (5) History of open reduction and internal fixation (ORIF) procedure: CODE(S): Z98.890 - Other specified postprocedural states (6) Hx of fracture of hip: CODE(S): Z87.81 - Personal history of (healed) traumatic fracture (7) Loss of hearing: CODE(S): H91.90 - Unspecified hearing loss, unspecified ear (8) Cancer: CODE(S): C80.1 - Malignant (primary) neoplasm, unspecified (9) Shortness of breath on exertion: CODE(S): R06.02 - Shortness of breath (10) Chronic bronchitis: CODE(S): J42 - Unspecified chronic bronchitis QUALIFIERS: Chronic bronchitis type: simple Qualified Code(s): J41.0 - Simple chronic bronchitis (11) Hydronephrosis: CODE(S): N13.30 - Unspecified hydronephrosis QUALIFIERS: Hydronephrosis type: unspecified Qualified Code(s): N13.30 - Unspecified hydronephrosis (12) Prostate cancer: CODE(S): C61 - Malignant neoplasm of prostate (13) History of transurethral resection of prostate: CODE(S): Z98.890 - Other specified postprocedural states; Z90.79 - Acquired absence of other genital organ(s) (14) Status post appendectomy: CODE(S): Z90.49 - Acquired absence of other specified parts of digestive tract (15) History of renal stent: (16) H/O hernia repair: CODE(S): Z98.890 - Other specified postprocedural states; Z87.19 - Personal history of other diseases of the digestive system PLAN: Plan This is an 88-year-old male with a stage II pressure ulceration of the left buttock. He has been advised to continue with offloading measures. He possesses a gel cushion which he is using on a regular basis. The patient has been advised to optimize his nutritional intake, including the use of protein supplements. We are to continue the use of moistened Hien topically, to be applied on a daily basis. The patient is to be assisted by his and home health nursing personnel who assist at home 3 times weekly. Barrier cream is gerardo applied to the buttocks to protect healed skin. The patient is 1 week for review addition by his published Wound Center provider. Total time: 34 minutes 06/04/242038 <Electronically signed by Franki Alexander MD> Cosigner Signature (if applicable): CC: ~ Signed [facility] Work Phone: [phone] History and physical note [facility] [address] [place] [address] H&P Exam - Wound Care 06/04/242019 MR#: [id number] Acct: [id number] Name: ELIESER VILLEGAS Rep #:[id number] : 1935 88 From: Franki Cuellar PCP: Dr. Johnny Shelton, DO Status:REG RCR Location: History of Present Illness Date of Service: 06/01/24 Chief Complaint: Stage 2 pressure ulcer left buttock History of Wound: This is an 88-year-old male that presented to the Wound Healing Center for evaluation and treatment of a left buttock ulcer. He has been seen in the past by another provider but hadtransportation issues and was not consistent with follow up. This ulcer has come and gone over the several years. He has used many topical treatments including Calmoseptine and Aquaphor to the area. He sits on a donut cushion when he is sitting on his couch which iswhere he spends the majority of his time during the day. He has lost approx. 40 lbs over the last several years which he attributes to some of the cause of the ulcer as he does not have as much subcutaneous tissue between his skin and his ischium. Labs from 03/14/24 showed Albumin 2.2. He does eat well but does not like protein shakes or yogurt. He is currently drinking Boost. He has a history of CKD Stage II, COPD, reduced BMI/malnutrition, on Eliquis, and frequent falls and recurrent trips to the ED. PCP is Dr. Shelton. He has home health. He tends to be non compliant in his care. [facility] Medical History Chronic bronchitis Hydronephrosis Chronic cough Hx of fracture of hip History of renal disease Former smoker Vitamin D insufficiency Abnormal results of thyroid function studies Loss of hearing Wears glasses Wears partial dentures Cancer Alcohol use Arthritis Low iron Back pain Heartburn Shortness of breath on exertion History of edema History of SIADH Former smoker Closed intertrochanteric fracture of left femur Kidney failure Prostate cancer Hyponatremia Prostatic cancer Home Medications ?Medication ?Instructions ?Recorded ?Last Taken ?Type NK 03/31/24 Unknown History Allergy/AdvReac Type Severity Reaction Status Date / Time No Known Allergies Allergy Verified 03/31/24 16:12 Family History Mother Heart disease Father Heart disease Surgical History Status post appendectomy History of cystoscopy Hx of cystoscopy History of open reduction and internal fixation (ORIF) procedure History of open reduction and internal fixation (ORIF) procedure History of transurethral resection of prostate History of renal stent H/O hernia repair Social History household members: spouse and other details: 2 st0ry house. He sleeps downstairs in a recliner. 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 He appears thin and frail. General Appearance: cooperative and comfortable Orientation / Consciousness: awake Exam Limitations: no limitations HEENT normocephalic and head/scalp atraumatic Head and Scalp: normal to inspection, normocephalic and atraumatic Face and Sinus: normal facial exam Nose: external nose normal Eyes General Eye: normal appearance of both eyes Resp normal respiratory effort, normal air movement, no retractions and no use of accessory muscles Effort and Inspection: able to speak in complete sentences Cardio regular rate and regular rhythm Back/Spine normal ROM Skin Wound Narrative: A stage II pressure ulceration is noted on the left buttock. Dimensions are documented elsewhere. The base of the ulcer is generally pink and healthy in appearance, with a moderate amount of bioburden. There is no sign of infection or cellulitis. Neuro oriented x3 and moves all extremities Sensorium / Orientation: awake, alert, oriented to person, oriented to place andoriented to time Psych mental status grossly normal Appearance: appropriate Debridement Note Debridement Note Wound debrided: Left buttock ulceration Laterality: Left Wound Grade/Stage: Stage II Type of Debridement: Excisional debridement Anesthesia Used: 5% Lidocaine Gel Depth: Down to and including healthy tissue and in the subcutaneous layer Percentage of wound debrided: 100 Instrument Used: 3mm curette Tissue Removed: Non viable tissue and bioburden Severity: Fat Layer Exposed Amount of bleeding with debridement: Mild Bleeding Controlled with: Compression and gauze Patient tolerated procedure: Patient tolerated procedure well Post-Debridement Measurements and Additional Note: Post-Debridement Measurements/Treatment - Nurse 1 - General Ulcer Assessment Start: 06/01/24 13:41 Freq: Status: Active Protocol: MAGALY Activity Type Activity Date Activity User E-sign Co-sign Detail Recorded Client Recorded Date Recorded By Document 06/01/24 13:41 [facility] [id number] 06/01/24 13:43 [facility] 06/01/24 13:41 - Today's Visit Information Type of service Follow-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 ) Arrival Mode Ambulatory Accompanied by self Patient Identification Verified (Name & Yes ) Safety Precautions Fall Prevention Height and Weight Body Mass Index (BMI) 17.2 BMI Classification Underweight Vital Signs Temperature (97.8 F-99.1 F) 97.8 F Temperature Source Temporal Pulse Rate (60-100) 92 Pulse Location Monitor Respiratory Rate (12-18) 18 Respiratory rate source Observation Oxygen Delivery Method Room Air Blood Pressure (90/60-120/80) 93/50 L Blood Pressure Mean 64 Source Monitor Position Sitting Blood Pressure Location Right Arm History Since Last Visit- (Skip if this is Patient's initial visit) Has dressing in place as prescribed Yes Has compression in place as prescribed Yes Has offloadiing in place as prescribed Yes Experienced any changes in pain level or Yes management Left Footwear Regular Shoe Right Footwear Regular Shoe Pain Scale: 0-10 Numeric Is Patient Pain Free? Yes WC - Nurse 1 - General Ulcer Measurement Start: 06/01/24 13:41 Freq: Status: Active Protocol: Activity Type Activity Date Activity User E-sign Co-sign Detail Recorded Client Recorded Date Recorded By Document 06/01/24 13:41 [facility] [id number] 06/01/24 13:43 [facility] 06/01/24 13:41 Wound Center Nurse 1 #3 L Buttock Cluster -Current Size (cm) - Length 0.3 -Current Size (cm) - Width 1.0 -Current Size (cm) - Depth 0.2 -Total Square Cm 0.30 -Photo Taken No -Tunneling No -Undermining/Tunneling No -Circular Undermining No -Exudate Amt Medium -Exudate Type Serosanguineous -Wound Margin Flat & Intact -Granulation Amt Large (67-100%) -Granulation Quality Red -Slough/Fibrin No -Texture (Ela-wound Skin Appearance) Assessed -Moisture (Ela-wound Skin Appearance) Assessed -Color (Ela-wound Skin Appearance) No Abnormality -Temperature (Ela-wound Skin No Abnormality Appearance) (Pt Warm) -Tenderness on Palpation (Ela-wound No Skin Appearance) -Ulcer Cleansing Soap and Water -Foul Odor after Cleansing No -Anesthetic Used 5% Lidocaine Gel Lower Limb Edema Present NA WC - Nurse 2 - General Ulcer CM Notes Start: 06/01/24 13:41 Freq: Status: Active Protocol: Activity Type Activity Date Activity User E-sign Co-sign Detail Recorded Client Recorded Date Recorded By Document 06/01/24 13:54 [facility] [id number] 06/01/24 13:58 [facility] 06/01/24 13:54 Wound Center Nurse 2 #3 L Buttock Cluster -Time 13:54 -Correct Patient Yes -Correct Side, Site, Position Yes -Correct Procedure Yes -Procedure Performed Yes -Type of Procedure Debridement -Clinical Debridement Subcutaneous -Tissue Removed Subcutaneous -Post Debridement (cm) - Length 0.3 -Post Debridement (cm) - Width 1 -Post Debridement (cm) - Depth 0.2 -Total Square (Post) (cm) 0.3 -Area of Debridement (cm) - Length 0.3 -Area of Debridement (cm) - Width 1 -Total Square (Area) (cm) 0.3 -Tunneling No -Undermining/Tunneling No -Circular Undermining No -Wound/Ulcer Outcome Not Healed -Ulcer Cleansing Rinsed/ Irrigated with Saline -Foul Odor after Cleansing No -Bioengineered Tissue No -Bleeding Controlled with Pressure -Treatment Response Procedure Tolerated Well -Debridement - Subq, 1st 20sq cm Yes Pain Scale: 0-10 Numeric Is Patient Pain Free? Yes - Nurse 3 - General Ulcer D/C NN Start: 06/01/24 13:41 Freq: Status: Active Protocol: Activity Type Activity Date Activity User E-sign Co-sign Detail Recorded Client Recorded Date Recorded By Document 06/01/24 14:03 [facility] [id number] 06/01/24 14:04 [facility] 06/01/24 14:03 Wound Care Center Nurse 3 #3 L Buttock Cluster -Ulcer Cleansing Rinsed/ Irrigated with Saline -Foul Odor after Cleansing No -Primary Dressing Applied Promogran Hien Matter, Silicone Border Foam 4x4 -Promogran Hien Matter 1 -Silicone Border Foam 4x4 1 Treatment Response Procedure Tolerated Well Pain Scale: 0-10 Numeric Is Patient Pain Free? Yes - Visit Discharge Discharge Condition Stable Ambulatory Status Ambulatory,Cane Transportation Private Auto Facility Type Home Health Charges/Coding Multi Select Codes Visit Charges Office Visit/Consults: 73135 OV L3 New 30 min Integumentary Integumentary CPT Codes: 63196 Odette subq tissue 20 sq cm/< Assessment/Plan Assessment/Plan (1) Decubitus ulcer of left buttock, stage 2: CODE(S): L89.322 - Pressure ulcer of left buttock, stage 2 (2) Malnutrition: CODE(S): E46 - Unspecified protein-calorie malnutrition QUALIFIERS: Malnutrition type: protein-calorie malnutrition Protein-calorie malnutrition severity: moderate Qualified Code(s): E44.0 - Moderate protein- calorie malnutrition (3) Debility: CODE(S): R53.81 - Other malaise (4) DVT prophylaxis: CODE(S): Z29.9 - Encounter for prophylactic measures, unspecified (5) History of open reduction and internal fixation (ORIF) procedure: CODE(S): Z98.890 - Other specified postprocedural states (6) Hx of fracture of hip: CODE(S): Z87.81 - Personal history of (healed) traumatic fracture (7) Loss of hearing: CODE(S): H91.90 - Unspecified hearing loss, unspecified ear (8) Cancer: CODE(S): C80.1 - Malignant (primary) neoplasm, unspecified (9) Shortness of breath on exertion: CODE(S): R06.02 - Shortness of breath (10) Chronic bronchitis: CODE(S): J42 - Unspecified chronic bronchitis QUALIFIERS: Chronic bronchitis type: simple Qualified Code(s): J41.0 - Simple chronic bronchitis (11) Hydronephrosis: CODE(S): N13.30 - Unspecified hydronephrosis QUALIFIERS: Hydronephrosis type: unspecified Qualified Code(s): N13.30 - Unspecified hydronephrosis (12) Prostate cancer: CODE(S): C61 - Malignant neoplasm of prostate (13) History of transurethral resection of prostate: CODE(S): Z98.890 - Other specified postprocedural states; Z90.79 - Acquired absence of other genital organ(s) (14) Status post appendectomy: CODE(S): Z90.49 - Acquired absence of other specified parts of digestive tract (15) History of renal stent: (16) H/O hernia repair: CODE(S): Z98.890 - Other specified postprocedural states; Z87.19 - Personal history of other diseases of the digestive system PLAN: Plan This is an 88-year-old male with a stage II pressure ulceration of the left buttock. He has been advised to continue with offloading measures. He possesses a gel cushion which he is using on a regular basis. The patient has been advised to optimize his nutritional intake, including the use of protein supplements. We are to continue the use of moistened Hien topically, to be applied on a daily basis. The patient is to be assisted by his and home health nursing personnel who assist at home3 times weekly. Barrier cream is gerardo applied to the buttocks to protect healed skin. The patient is 1 week for review addition by his published Wound Center provider. Total time: 34 minutes 06/04/242038 Cosigner Signature (if applicable): CC: ~ Signed [facility]02-24-2025 Evaluation note* Diagnosis Onset Date Resolution Status Admit Date Debility acute May 23, 2024 9:30am Decubitus ulcer of left buttock, stage 2 acute May 23, 2024 9:30am DVT prophylaxis acute May 23, 2024 9:30am Malnutrition acute April 9:30am Cancer acute June 08 3:30pm Debility acute June 08 3:30pm Decubitus ulcer of left buttock, stage 2 acute June 08 3:30pm DVT prophylaxis acute May 3:30pm H/O hernia repair acute May 282024 3:30pm History of open reduction an d internal fixation (ORIF) procedure acute June 08, 2024 3:30pm History of renal stent acute [facility] 2024 3:30pm History of transurethral resection of prostate acute May 3:30pm Hx of fracture of hip acute [facility] 2024 3:30pm Hydronephrosis acute May 3:30pm Loss of hearing acute May 3:30pm Malnutrition acute June 08, 2024 3:30pm Prostate cancer acute May 3:30pm Shortness of breath on exertion acut e June 08, 2024 3:30pm Status post appendectomy acute June 08, 2024 3:30pm Chronic bronchitis chronic June 08, 2024 3:30pm Debility acute July 11 3:00pm Decubitus ulcer of left buttock, stage 2 acute July 11 3:00pm DVT prophylaxis acute June 3:00pm Malnutrition acute July 11, 2024 3:00pm Debility acute August 01, 2024 1:19pm Decubitus ulcer of left buttock, stage 2 acute August 01, 2024 1 :19pm DVT prophylaxis acute August 01, 2024 1:19pm Malnutrition acute August 01 1:19pm [facility] Work Phone: 1([phone]) 365-169802-24-2025 Evaluation note* Diagnosis Onset Date Resolution Status Admit Date Debility acute May 23, 2024 9:30am Decubitus ulcer of left buttock, stage 2 acute May 23, 2024 9:30am DVT prophylaxis acute May 23, 2024 9:30am Malnutrition acute April 9:30am Cancer acute June 08 3:30pm Debility acute June 08 3:30pm Decubitus ulcer of left buttock, stage 2 acute June 08 3:30pm DVT prophylaxis acute May 3:30pm H/O hernia repair acute May 282024 3:30pm History of open reduction an d internal fixation (ORIF) procedure acute June 08, 2024 3:30pm History of renal stent acute [facility] 2024 3:30pm History of transurethral resection of prostate acute May 3:30pm Hx of fracture of hip acute [facility] 2024 3:30pm Hydronephrosis acute May 3:30pm Loss of hearing acute May 3:30pm Malnutrition acute June 08, 2024 3:30pm Prostate cancer acute May 3:30pm Shortness of breath on exertion acut e June 08, 2024 3:30pm Status post appendectomy acute June 08, 2024 3:30pm Chronic bronchitis chronic June 08, 2024 3:30pm Debility acute July 11 3:00pm Decubitus ulcer of left buttock, stage 2 acute July 11 3:00pm DVT prophylaxis acute June 3:00pm Malnutrition acute July 11, 2024 3:00pm Debility acute August 01, 2024 1:19pm Decubitus ulcer of left buttock, stage 2 acute August 01, 2024 1 :19pm DVT prophylaxis acute August 01, 2024 1:19pm Malnutrition acute August 01 1:19pm Debility acute August 29, 2024 2:27pm Decubitus ulcer of left buttock, stage 2 acute August 29, 2024 2:27pm DVT prophylaxis acute August 29, 2024 2:27pm Malnutrition acute August 29 2:27pm [facility] Work Phone: 1(568) 563-230412-11-2024 [facility] Medical Records Department [address] [place] [address] Discharge Summary 03/09/24 1408 MR#: [id number] Acct: [id number] Name: ELIESER VILLEGAS Rep #: [id number] : 1935 88 From: Lucius Ulloa DO PCP: Dr. Johnny Shelton DO Status:ADM IN Location: [place] [address] Providers Date of Admission: 03/09/24 Primary Care Physician: Dr. Johnny Shelton DO Consultations 03/09/24 04:45 Consult: Onc/Wound/corporate job titles Routine Comment: Reason for Consult:: Stage II buttock decub Reason For Visit: SIRS, FUO Diagnosis Discharge Diagnosis (1) FUO (fever of unknown origin): Status: Acute Code(s): R50.9 - Fever, unspecified Plan Fever * COVID, influenza, RSV negative. CXR shows chronic basilar scarring. UA unremarkable. Resp panel pending. * Received pip/tazo and vanc in ED. Hold off on additional abx for now. Hyponatremia * known SIADH. * pt received IVF and sodium improved. 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 * Chronic Kidney Disease Stage II per GFR trending: Admission BUN/Cr 24/0.93, GFR 81, baseline renal function primarily 0.7-1.1, repeat BMP in AM. * Chronic COPD: Will maintain on ATC budesonide therapy, PRN albuterol, HOB, IS parameters. * Severe protein calorie malnutrition: Evidenced by significantly reduced BMI, obvious muscle and fat loss, nutrition consulted for recommendations. DVT prophylaxis: Heparin. He is not interested in a SNF. DC home. Patient improved much faster than initially anticipated. Medications at Discharge Home Medications NK 03/08/24 Hospital Course Operations None Procedures None Weight / BMI Weight Weight: 51.5 kg Body Mass Index (BMI) 16.7 ABG / Lab / Microbiology Data 03/09/24 06:22 03/09/24 06:22 Laboratory: Laboratory Results - last 24 hr 03/09/24 00:15: WBC 10.6, RBC 4.24 L, Hgb 13.1, Hct 38.8 L, MCV 91.5, MCH 30.9, MCHC 33.8, RDW Std Deviation 42.2, RDW Coeff of Michael 12.6, Plt Count 286, MPV 9.3, Immature Gran % (Auto) 1.800 H, Neut % (Auto) 86.3 H, Lymph % (Auto) 4.3 L, [place] % (Auto) 7.1, Eos % (Auto) 0.0, Baso % (Auto) 0.5, A bsolute Neuts (auto) 9.1 H, Absolute Lymphs (auto) 0.46 L, Nucleated RBC % 0, Sodium 128 L, Potassium 4.8, Chloride 95 L, Carbon Dioxide 27.0, Anion Gap 6, BUN 24 H, Creatinine 0.93, Estim Creat Clear Calc 40.61, Est GFR (MDRD) Af Amer 98, Est GFR (MDRD) Non-Af 81, BUN/Creatinine Ratio 25.7 H, Glucose 120 H, Lactic Acid 0.8, Calcium 9.3, Phosphorus 3.0, Magnesium 2.1, Total Bilirubin 0.40, Direct Bilirubin 0.17, AST 26, ALT 30, Alkaline Phosphatase 152 H, Total Protein 7.8, Albumin 2.8 L, Globulin 5.0 H, Procalcitonin 0.15 H 03/09/24 02:15: Urine Color Yellow, Urine Clarity Clear, Urine pH 7.0, Ur Specific Nixa 1.005, U rine Protein 30 H, Urine Glucose (UA) Normal, Urine Ketones Negative, Urine Occult Blood 50 H, Urine Nitrite Negative, Urine Bilirubin Negative, Urine Urobilinogen Normal, Ur Leukocyte Esterase 100 H, Urine RBC 5-10 SEEN, Urine WBC 10-25 SEEN, Ur Squamous Epith Cells 0-5 SEEN, Urine Bacteria 0 SEEN, Urine Mucus 0 SEEN 03/09/24 06:22: WBC 9.4, RBC 3.64 L, Hgb 11.3 L, Hct 34.3 L, MCV 94.2 H, MCH 31.0, MCHC 32.9, RDW Std Deviation 43.6, RDW Coeff of Michael 12.6, Plt Count 263, MPV 8.8, Immature Gran % (Auto) 2.000 H, N eut % (Auto) 85.6 H, Lymph % (Auto) 5.3 L, [place] % (Auto) 6.5, Eos % (Auto) 0.0, Baso % (Auto) 0.6, A bsolute Neuts (auto) 8.0 H, Absolute Lymphs (auto) 0.50 L, Nucleated RBC % 0, Differential Comment SCANNED, Sodium 134 L, Potassium 4.2, Chloride 103, Carbon Dioxide 25.0, Anion Gap 6, BUN 21 H, Creatinine 0.84, Estim Creat Clear Calc 44.28, Est GFR (MDRD) Af Amer 110, Est GFR (MDRD) Non-Af 91, BUN/Creatinine Ratio 24.9 H, Glucose 104, Calcium 8.3 L, Total Bilirubin 0.60, AST 18, ALT 20, Alkaline Phosphatase 114, Total Protein 5.9 L, Albumin 2.1 L, Globulin 3.8, Albumin/Globulin Ratio 0.6 L Microbiology: Microbiology 03/09/24 05:35 Mucosa - Nasopharyngeal Respiratory Panel (PCR) - Final 03/09/24 00:30 Mucosa - Nose SARS-CoV-2, Influenza RSV (PCR) - Final Radiography Diagnostic Testing: Radiology Impression Chest X-Ray 03/09/24 00:02 IMPRESSION: No acute findings in the chest. COPD changes, and scarring in the lung bases. Electronically Signed: Leo Art MD at 1:05 EST , Chest X-Ray 03/09/24 10:10 IMPRESSION: Right lower lobe infiltrate superimposed on basilar scarring. Electronically Signed: Andres Rojas MD at 10:23 EST Reading Loc (more content not included)...[facility]12-11-2024 Evaluation note* Diagnosis Onset Date Resolution Status Admit Date FUO (fever of unknown origin) resolv ed March 09, 2024 4:04am Debility acute May 23, 2024 9:30am Decubitus ulcer of left buttock, stage 2 acute May 23, 2024 9:30am DVT prophylaxis acute May 23, 2024 9:30am Malnutrition acute April 9:30am Cancer acute June 08 3:30pm Debility acute June 08 3:30pm Decubitus ulcer of left buttock, stage 2 acute June 08 3:30pm DVT prophylaxis acute May 3:30pm H/O hernia repair acute May 282024 3:30pm History of open reduction an d internal fixation (ORIF) procedure acute June 08, 2024 3:30pm History of renal stent acute [facility] 2024 3:30pm History of transurethral resection of prostate acute May 3:30pm Hx of fracture of hip acute May 3:30pm Hydronephrosis acute May 3:30pm Loss of hearing acute May 3:30pm Malnutrition acute June 08, 2024 3:30pm Prostate cancer acute May 3:30pm Shortness of breath on exertion acute June 08, 2024 3:30pm Status post appendectomy acute June 08, 2024 3:30pm Chronic bronchitis chronic June 08, 2024 3:30pm [facility] Work Phone: 1(300) 525-897611-06-2024 [facility] Medical Records Department [address] [place] [address] History Physical Exam 02/03/24 1435 MR#: [id number] Acct: [id number] Name: ELIESER VILLEGAS Polo Rep #: [id number] : 1935 88 From: Gildardo Hollingsworth MD PCP: Dr. Johnny Shelton, DO Status:[facility] Location: [place] [address] HPI - General General Date of Service: 02/03/24 Chief Complaint: right stent HPI Narrative ELIESER VILLEGAS, is a 88 M who presents for right stent change. [facility] Medical History Chronic cough Hx of fracture of hip History of renal disease Former smoker Vitamin D insufficiency Abnormal results of thyroid function studies Loss of hearing Wears glasses Wears partial dentures Cancer Alcohol use Arthritis Low iron Back pain Heartburn Shortness of breath on exertion History of edema History of SIADH Chronic bronchitis Hydronephrosis Former smoker Closed intertrochanteric fracture of left femur Kidney failure Prostate cancer Hyponatremia Prostatic cancer Home Medications ???Medication ???Instructions ???Recorded ???Last Taken ???Type oxycodone-acetaminophen 5 mg-325 1 tab PO Q6H PRN PRN Pain 3 days 01/31/24 Unknown Rx mg tablet #12 TABLETS Allergy/AdvReac Type Severity Reaction Status Date / Time No Known Allergies Allergy Verified 02/03/24 13:04 Family History Other Heart disease Surgical History History of cystoscopy Hx of cystoscopy History of open reduction and internal fixation (ORIF) procedure History of open reduction and internal fixation (ORIF) procedure History of transurethral resection of prostate Status post appendectomy History of renal stent H/O hernia repair Social History household members: spouse and other details: 2 st0ry house. He sleeps downstairs in a recliner. 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 Tobacco: How many years used: 67 how long ago did patient quit smoking: He quit in 2019 alcohol intake: current alcohol intake frequency: holidays/special occasions only substance use type: does not use Vital Signs Vital Signs Vital Signs: 02/03/24 13:06 02/03/24 13:06 02/03/24 14:05 Temperature 98.2 F 98.2 F Temperature Source Temporal Pulse Rate 92 92 Respiratory Rate 16 16 Respiratory Pattern Normal Blood Pressure 154/76 H 154/76 H Blood Pressure Mean 102 Blood Pressure Source Monitor Blood Pressure Position Sitting Blood Pressure Location Right Arm Pulse Ox 100 100 Oxygen Delivery Method Room Air Room Air Weight Weight: 54 kg Body Mass Index (BMI) 17.0 02/03/24 1436 Cosigner Signature (if applicable): CC: Dr. Gildardo Hollingsworth MD; Dr. Johnny Shelton DO [facility] Consult note Author Gabriel Duckworth [facility] April 14, 2023 10:34am Note Date/Time April 14, 2023 1 0:34am [facility] Medical Records Department [address] [place] [address] Consultation - Infectious Dx 04/14/23 1030 MR#: [id number] Acct: [id number] Name: ELIESER VILLEGAS Rep #:[id number] : 1935 87 From: Gabriel carmona MD PCP: Dr. Johnny Shelton, Status:ADM IN Location: [facility] [id number] Assessment & Plan Assessment/Plan (1) Pneumonia: PLAN: strep CAP - fever resolved, feeling better. Will stop azithro. Cont ceftriaxone while inpatient. Ok for home with 2 more days po augmentin 875mg bid. Will follow, thank you HPI Consult Data Date of Consult: 04/14/23 HPI Narrative Reason for Consultation: CAP HPI Narrative: ELIESER VILLEGAS, is a 87 M who presented 04/09 with several days fever, cough, weakness, sputum at home. Came to ED, admitted on azithro/ceftriaxone, feeling better. No congestion, no n/v/d. Full ROS performed and neg except as noted above. [facility] Medical History Abnormal results of thyroid function studies Alcohol use Arthritis Back pain Cancer Cholelithiasis Chronic bronchitis Closed intertrochanteric fracture of left femur Former smoker Heartburn History of edema History of SIADH Hydronephrosis Hyponatremia Kidney failure Loss of hearing Low iron Prostate cancer Prostatic cancer Shortness of breath on exertion Vitamin D insufficiency Wears glasses Wears partial dentures Home Medications NK 04/09/23 [History Last Taken Unknown] Allergy/AdvReac Type Severity Reaction Status Date / Time No Known Allergies Allergy Verified 04/09/23 21:06 Family History Other Heart disease Surgical History H/O hernia repair History of cystoscopy History of open reduction and internal fixation (ORIF) procedure History of open reduction and internal fixation (ORIF) procedure History of renal stent History of transurethral resection of prostate Hx of cystoscopy Status post appendectomy Social History household members: spouse and other details: 2 st0ry house. He sleeps downstairs in a recliner. 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 Tobacco: How many years used: 67 how long ago did patient quit smoking: He quit in 2019 alcohol intake: current alcohol intake frequency: holidays/special occasions only substance use type: does not use Physical Exam Const alert and no apparent distress General Appearance: cooperative HEENT normocephalic and head/scalp atraumatic Eyes PERRL and EOMs intact bilaterally Neck supple and No nodes Resp Auscultation: rhonchi Cardio regular rate and regular rhythm GI soft to palpation, non-tender and non-distended Extremity General Extremity: Negative for edema Skin no rashes or lesions noted Medical Records Data Medical Nutrition Assessment Dietitian: Malnutrition Criteria Met Start: 04/10/23 10:30 Freq: Status: Active Protocol: Document 04/13/23 11:54 SLA (Rec: 04/13/23 11:54 SLA Desktop) Nutrition Malnutrition Evidence of Malnutrition Exists Yes Malnutrition (severe): Chronic Evidenced By Suboptimal Energy Intake ( Severe),Weight Loss (Severe) Clinical Problem Chronic Disease or Condition Related Malnutrition Etiology related to suboptimal energy intake at meals Signs/Symptoms as evidenced by <50% po intake of est nutritional needs and 10.5% unintended wt loss x 6-7 mo [place]. Also w/ muscle/fat loss throughout body and face; BMI < 18 Status Active Problem Recommendation Dietitian Recommendations/Changes Will continue liberal regular diet d/t signs and symptoms of malnutrition Will continue 4 oz ensure plus high protein 4x/day w/ medpass Lab / Micro Data Attestation: I reviewed the patient's lab results. 04/14/23 07:06 04/14/23 07:06 Labs: Laboratory Results - last 24 hr 04/10/23 05:43: Diff Path Review Reviewed 04/14/23 07:06: WBC 4.5, RBC 4.10 L, Hgb 12.3 L, Hct 37.3 L, MCV 91.0, MCH 30.0,MCHC 33.0, RDW Std Deviation 49.1 H, RDW Coeff of Michael 14.7 H, Plt Count 238, MPV8.8, Immature Gran % (Auto) 3.500 H, Neut % (Auto) 71.5 H, Lymph % (Auto) 13.7 L, [place] % (Auto) 8.2, Eos % (Auto) 2.4, Baso % (Auto) 0.7, Absolute Neuts (auto) 3.2, Absolute Lymphs (auto) 0.62 L, Nucleated RBC % 0, Sodium 132 L, Potassium 4.4, Chloride 99, Carbon Dioxide 29.0, Anion Gap 4 L, BUN 23 H, Creatinine 0.70,Estim Creat Clear Calc 50.58, Est GFR (MDRD) Af Amer 137, Est GFR (MDRD) Non-Af 113, BUN/Creatinine Ratio 32.9 H, Glucose 98, Calcium 8.8 Rhythm Strip Rhythm Strip: Sinus Rhythm Rate: 87 Ectopy: None Capacity Legal Glove Boarder Reflex Medical hold order details:: IF a medical hold is selected below, a suggested order for a MEDICAL HOLD will reflex upon signing the document. Next of kin: [place] law dictates a PRIORITY LIST for identifying legal decision-maker/legal next of kin in the following order (LNOK): 1st: The patient?s legal guardian, if any 2nd: The patient's spouse (if status is questionable, consult Risk Management) 3rd: The patient?s adult child(joe) (majority, if multiple children) 4th: The patient?s parents 5th: The patient?s adult siblings (majority, if multiple children siblings) 04/14/23 1034 <Electronically signed by Gabriel Duckworth MD> Cosigner Signature (if applicable): CC: Dr. Johnny Shelton DO; Dr. Twila Humphreys MD; Dr. Sung Sharma MD; Dr. Gabriel Duckworth MD~ Signed [facility] Work Phone: 1(777) 594-304901-15-2024 Progress note Author Sarita Melgar [facility] April 13, 2023 4:39pm Note Date/Time April 13, 2023 4 :29pm [facility] Medical Records Department [address] [place] [address] Progress Note - Hospitalist 04/13/23 1621 MR#: [id number] Acct: [id number] Name: ELIESER VILLEGAS Rep #:[id number] : 1935 87 From: Sarita Melgar MD PCP: Dr. Johnny Shelton, DO Status:ADM IN Location: [facility] [id number] Reason for Visit Reason for Visit: Diagnoses Pneumonia, unspecified organism (04/09/23) Subjective Subjective Feeling somewhat worse than yesterday, still has productive cough and shortness of breath though does feel better than previous. Patient reports he has historyof ureteral stenting and was supposed to have an exchange on Thursday, presently does not have any burning or urinary complaints concerning for UTI Objective Data Objective Data Vital Signs: Vital Signs Temp Pulse Resp BP Pulse Ox O2 Del Method O2 Flow Rate 98.3 F 78 16 115/58 L 97 Room Air 2 04/13/23 15:52 04/13/23 15:52 04/13/23 15:52 04/13/23 15:52 04/13/23 15:52 04/13/23 15:52 04/10/23 02:15 Oxygen Flow Rate (L/min) 2 Oxygen Delivery Method Room Air Weight: 54.975 kg Body Mass Index (BMI) 17.4 Intake & Output: Intake and Output for Last 24 Hours 04/11/23 04/12/23 04/13/23 23:59 23:59 23:59 Intake Total 1100 / 1100 1005 / 1005 200 / 200 Output Total 350 / 350 200 / 200 100 / 100 Balance 750 / 750 805 / 805 100 / 100 Medical Nutrition Assessment Dietitian: Malnutrition Criteria Met Start: 04/10/23 10:30 Freq: Status: Active Protocol: Document 04/13/23 11:54 SLA (Rec: 04/13/23 11:54 SLA Desktop) Nutrition Malnutrition Evidence of Malnutrition Exists Yes Malnutrition (severe): Chronic Evidenced By Suboptimal Energy Intake ( Severe),Weight Loss (Severe) Clinical Problem Chronic Disease or Condition Related Malnutrition Etiology related to suboptimal energy intake at meals Signs/Symptoms as evidenced by <50% po intake of est nutritional needs and 10.5% unintended wt loss x 6-7 mo [place]. Also w/ muscle/fat loss throughout body and face; BMI < 18 Status Active Problem Recommendation Dietitian Recommendations/Changes Will continue liberal regular diet d/t signs and symptoms of malnutrition Will continue 4 oz ensure plus high protein 4x/day w/ medpass Lab / Micro Data 04/13/23 05:25 04/13/23 05:25 Labs: Laboratory Results - last 24 hr 04/13/23 05:25: WBC 4.7, RBC 4.11 L, Hgb 12.1 L, Hct 37.6 L, MCV 91.5, MCH 29.4,MCHC 32.2, RDW Std Deviation 49.4 H, RDW Coeff of Michael 14.7 H, Plt Count 230, MPV9.0, Immature Gran % (Auto) 2.400 H, Neut % (Auto) 69.6, Lymph % (Auto) 14.8 L, [place] % (Auto) 9.7, Eos % (Auto) 2.4, Baso % (Auto) 1.1 H, Absolute Neuts (auto) 3.2, Absolute Lymphs (auto) 0.69 L, Nucleated RBC % 0, Sodium 135 L, Potassium 4.3, Chloride 100, Carbon Dioxide 29.0, Anion Gap 6, BUN 19 H, Creatinine 0.66 L, Estim Creat Clear Calc 50.58, Est GFR (MDRD) Af Amer 146, Est GFR (MDRD) Non-Af 121, BUN/Creatinine Ratio 28.7 H, Glucose 96, Calcium 8.2 L Micro: Microbiology 04/09/23 21:45 Blood Culture (Wb) - Left Forearm Blood Culture - Preliminary No growth in 48 hours. 04/09/23 21:15 Blood Culture (Wb) - Left Forearm Blood Culture - Preliminary No growth in 48 hours. 04/10/23 10:15 Sputum, Expectorated/Coughed Gram Stain - Final 04/10/23 10:15 Sputum, Expectorated/Coughed Respiratory Culture - Final Beta streptococcus 04/09/23 22:49 Urine, Clean Catch Urine Culture - Final Corynebacterium amycolatum 04/09/23 22:49 Urine Catheter - Catheter Legionella Antigen - Final 04/09/23 22:49 Urine Catheter - Catheter Streptococcus pneumoniae Antigen (M- Final 04/09/23 21:20 Mucosa - Nasopharyngeal SARS-CoV-2, Influenza & RSV (PCR) - Final Rhythm Strip Rhythm Strip: Sinus Rhythm Rate: 87 Ectopy: None Physical Exam Narrative General: Alert, oriented, no apparent distress HEENT: Atraumatic, normocephalic Eyes: Anicteric, normal conjunctiva, extraocular movements grossly intact Neck: Supple Respiratory: Slight increased respiratory effort, somewhat diminished at the bases Cardiovascular: Regular rate GI: Soft, nontender, nondistended Extremities: No edema Musculoskeletal: Moving all extremities Neuro: No overt focal neurological deficits Skin: No rashes appreciated Psych: Cooperative Assessment & Plan Assessment/Plan (1) Pneumonia: PLAN: Plan This is a 87-year-old gentleman has shortness of breath for more than 10 years along with cough and sputum production. For last1 week, his symptoms got worse with short of breath, dyspnea at rest. Denies any acute change in his sputum production which is grayish in coloration. #Community acquired pneumonia with beta Streptococcus in sputum * admit to med surg * admitted with a complaint of weakness and found to have right sided pneumonia and a fever * COVID, flu and RSV negative Urinary antigens are negative for Legionella and Streptococcus. Patient is dehydrated and continue IV fluid. On empiric IV ceftriaxone and azithromycin. Chest x-ray individually reviewed and shows right lower lobe infiltrate consistent with pneumonia. Aggressive bronchopulmonary hygiene with incentive spirometry and PEP. 04/11: As per prelim sputum culture grows 2+ GPC and rare GNR. Full culture to follow. Continue antibiotics. 04/12: Prelim culture shows beta Streptococcus 2+. Continue IV ceftriaxone till full culture comes up and discharge possible tomorrow on final culture and sensitivity. -04/13: Patient with beta strep 2+ has been on Rocephin and has done well on this, anticipate patient can DC in next 1 to 2 days if continued improvement #Corynebacterium in urine -UA obtained on admission and growing corynebacterium amycolatum -W/ history of ureteral stent/ stent presently in place -No sx of UTI but has foreign material present, will c/s ID for further recommendations #Mild chronic malnutrition: Patient has loss of subcutaneous fat. Decreased bulk of muscles of extremities. BMI 17.4 kg/m?. [employer] consult. #History of prostate cancer: stable. #DVT prophylaxis: lovenox subq Time spent in the patient's overall evaluation,decision-making process, review of diagnostic data, adjustment of management, discussion with other providers, nursing nursing and ancillary staff involved in patient's care documentation, 35minutes Capacity Legal Glove Boarder Reflex Medical hold order details:: IF a medical hold is selected below, a suggested order for a MEDICAL HOLD will reflex upon signing the document. Next of kin: [place] law dictates a PRIORITY LIST for identifying legal decision-maker/legal next of kin in the following order (LNOK): 1st: The patient?s legal guardian, if any 2nd: The patient's spouse (if status is questionable, consult Risk Management) 3rd: The patient?s adult child(joe) (majority, if multiple children) 4th: The patient?s parents 5th: The patient?s adult siblings (majority, if multiple children siblings) Charges/Coding Visit Charges Inpatient E&M: 61091 Subs Hosp L2 04/13/23 1639 <Electronically signed by Sarita Melgar MD> Cosigner Signature (if applicable): CC: ~ Signed [facility] Work Phone: 1(613) 401-547301-14-2024 Progress note Author Sung Sharma [facility] April 12, 2023 12:15pm Note Date/Time April 12, 2023 1 2:16pm [facility] Medical Records Department [address] [place] [id number] Progress Note - Hospitalist 04/12/23 1214 MR#: [id number] Acct: [id number] Name: ELIESER VILLEGAS Rep #:[id number] : 1935 87 From: Sung Cuellar PCP: Dr. Johnny Shelton, DO Status:ADM IN Location: [facility] [id number] Reason for Visit Reason for Visit: Diagnoses Pneumonia, unspecified organism (04/09/23) Objective Data Objective Data Vital Signs: Vital Signs Temp Pulse Resp BP Pulse Ox O2 Del Method O2 Flow Rate 98.4 F 82 16 113/59 L 96 Room Air 2 04/12/23 11:36 04/12/23 11:36 04/12/23 11:36 04/12/23 11:36 04/12/23 11:36 04/12/23 11:36 04/10/23 02:15 Oxygen Flow Rate (L/min) 2 Oxygen Delivery Method Room Air Weight: 121 lb 3.2 oz Body Mass Index (BMI) 17.4 Intake & Output: Intake and Output for Last 24 Hours 04/10/23 04/11/23 04/12/23 23:59 23:59 23:59 Intake Total 2339.58 / 2339.58 1100 / 1100 350 / 350 Output Total 150 / 150 350 / 350 200 / 200 Balance 2189.58 / 2189.58 750 / 750 150 / 150 Lab / Micro Data 04/10/23 05:43 04/10/23 05:43 Micro: Microbiology 04/10/23 10:15 Sputum, Expectorated/Coughed Gram Stain - Final 04/10/23 10:15 Sputum, Expectorated/Coughed Respiratory Culture - Final Beta streptococcus 04/09/23 22:49 Urine, Clean Catch Urine Culture - Final Corynebacterium amycolatum 04/09/23 22:49 Urine Catheter - Catheter Legionella Antigen - Final 04/09/23 22:49 Urine Catheter - Catheter Streptococcus pneumoniae Antigen (M- Final 04/09/23 21:20 Mucosa - Nasopharyngeal SARS-CoV-2, Influenza & RSV (PCR) - Final Rhythm Strip Rhythm Strip: Sinus Rhythm Rate: 87 Ectopy: None Physical Exam Narrative Seen and examined. Shortness of breath is better. Dyspnea is better but still gets short of breathon mild exertion going to bathroom. Patient does not look restless. Prelim sputum culture growing GPC and rare GNR. No fever patient is coughing up phlegm. Physical exam General: Alert, Oriented x3, Cooperative, BMI 17.40 kg/m? HEENT: Atraumatic, PERRLA, EOMI, Normocephalic Oral: No Gingival or Mucosal Lesions/ Ulcerations Neck: Supple, No JVD, Negative Carotid Bruits Lungs: Air entry diminished in bilateral lung bases. Mild dyspnea on exertion. Coarse crepitations crepitation on right lung base. Cardiovascular: Regular rate, Regular Rhythm, Normal S1, Normal S2, No murmurs Abdomen: Bowel Sounds Present, Soft, Non Tender, Non-Distended : No renal angle tenderness. No suprapubic tenderness. Extremities: No edema, Capillary Refill Less than 3 Seconds Skin: No rashes, No breakdown Musculoskeletal: No Tenderness to Palpation of Joints or Extremities. Mild decreased muscle bulk of thighs and calf, mild chronic malnutrition Neurological: Cranial nerves II-XII grossly intact, DTR 2+/4. No acute focal neurological deficit. Psych/Mental Status: Flat affect. Assessment & Plan Assessment/Plan (1) Pneumonia: PLAN: Plan This is a 87-year-old gentleman has shortness of breath for more than 10 years along with cough and sputum production. For last1 week, his symptoms got worse with short of breath, dyspnea at rest. Denies any acute change in his sputum production which is grayish in coloration. #Community acquired pneumonia * admit to med surg * admitted with a complaitn of weakness and found to have right sided pneumonia and a fever * COVID, flu and RSV negative Urinary antigens are negative for Legionella and Streptococcus. Patient is dehydrated and continue IV fluid. On empiric IV ceftriaxone and azithromycin. Chest x-ray individually reviewed and shows right lower lobe infiltrate consistent with pneumonia. Aggressive bronchopulmonary hygiene with incentive spirometry and PEP. 04/11: As per prelim sputum culture grows 2+ GPC and rare GNR. Full culture to follow. Continue antibiotics. 04/12: Prelim culture shows beta Streptococcus 2+. Continue IV ceftriaxone till full culture comes up and discharge possible tomorrow on final culture and sensitivity. Mild chronic malnutrition: Patient has loss of subcutaneous fat. Decreased bulkof muscles of extremities. BMI 17.4 kg/m?. [employer] consult. #History of prostate cancer: stable. #DVT prophylaxis: lovenox Code status: full code * Patient counseled extensively about different types of CODE STATUS including full code, DNR CCA and DNR CCA. Patient elects to be full code; patient says he feels he is still in very good health and wants to have CPR and be intubated for a short period if needed. Charges/Coding Visit Charges Inpatient E&M: 12236 Subs Hosp L2 04/12/23 7933 <Electronically signed by Sung Sharma MD> Cosigner Signature (if applicable): CC: ~ Signed [facility] Work Phone: 1(405) 498-835401-13-2024 Progress note Author Sung Sharma [facility] April 11, 2023 3:12pm Note Date/Time April 11, 2023 3 :12pm [facility] Medical Records Department [address] [place] [address] Progress Note - Hospitalist 04/11/23 1507 MR#: [id number] Acct: [id number] Name: ELIESER VILLEGAS Polo Rep #:[id number] : 1935 87 From: Sung Cuellar PCP: Dr. Johnny Shelton, DO Status:ADM IN Location: [facility] [id number] Reason for Visit Reason for Visit: Diagnoses Pneumonia, unspecified organism (04/09/23) Objective Data Objective Data Vital Signs: Vital Signs Temp Pulse Resp BP Pulse Ox O2 Del Method O2 Flow Rate 98.9 F 86 18 112/87 H 97 Room Air 2 04/11/23 14:50 04/11/23 14:50 04/11/23 14:50 04/11/23 14:50 04/11/23 14:50 04/11/23 14:50 04/10/23 02:15 Oxygen Flow Rate (L/min) 2 Oxygen Delivery Method Room Air Weight: 121 lb 3.2 oz Body Mass Index (BMI) 17.4 Intake & Output: Intake and Output for Last 24 Hours 04/09/23 04/10/23 04/11/23 23:59 23:59 23:59 Intake Total 1000 / 1000 2339.58 / 2339.58 555 / 555 Output Total 150 / 150 350 / 350 Balance 1000 / 1000 2189.58 / 2189.58 205 / 205 Lab / Micro Data 04/10/23 05:43 04/10/23 05:43 Micro: Microbiology 04/10/23 10:15 Sputum, Expectorated/Coughed Gram Stain - Final 04/09/23 22:49 Urine Catheter - Catheter Legionella Antigen - Final 04/09/23 22:49 Urine Catheter - Catheter Streptococcus pneumoniae Antigen (M- Final 04/09/23 21:20 Mucosa - Nasopharyngeal SARS-CoV-2, Influenza & RSV (PCR) - Final Rhythm Strip Rhythm Strip: Sinus Rhythm Rate: 87 Ectopy: None Physical Exam Narrative Seen and examined. Shortness of breath is better. Dyspnea is also good. Patient does not look restless. Prelim sputum culture growing GPC and rare GNR. No fever Physical exam General: Alert, Oriented x3, Cooperative, BMI 17.40 kg/m? HEENT: Atraumatic, PERRLA, EOMI, Normocephalic Oral: No Gingival or Mucosal Lesions/ Ulcerations Neck: Supple, No JVD, Negative Carotid Bruits Lungs: Air entry diminished in bilateral lung bases. Mild dyspnea on exertion. Coarse crepitations worse on the right lung base. Cardiovascular: Regular rate, Regular Rhythm, Normal S1, Normal S2, No murmurs Abdomen: Bowel Sounds Present, Soft, Non Tender, Non-Distended : No renal angle tenderness. No suprapubic tenderness. Extremities: No edema, Capillary Refill Less than 3 Seconds Skin: No rashes, No breakdown Musculoskeletal: No Tenderness to Palpation of Joints or Extremities. Mild decreased muscle bulk of thighs and calf, mild chronic malnutrition Neurological: Cranial nerves II-XII grossly intact, DTR 2+/4. No acute focal neurological deficit. Psych/Mental Status: Flat affect. Assessment & Plan Assessment/Plan (1) Pneumonia: PLAN: Plan This is a 87-year-old gentleman has shortness of breath for more than 10 years along with cough and sputum production. For last1 week, his symptoms got worse with short of breath, dyspnea at rest. Denies any acute change in his sputum production which is grayish in coloration. #Community acquired pneumonia * admit to med surg * admitted with a complaitn of weakness and found to have right sided pneumonia and a fever * COVID, flu and RSV negative Urinary antigens are negative for Legionella and Streptococcus. Patient is dehydrated and continue IV fluid. On empiric IV ceftriaxone and azithromycin. Chest x-ray individually reviewed and shows right lower lobe infiltrate consistent with pneumonia. Aggressive bronchopulmonary hygiene with incentive spirometry and PEP. 04/11: As per prelim sputum culture grows 2+ GPC and rare GNR. Full culture to follow. Continue antibiotics. Mild chronic malnutrition: Patient has loss of subcutaneous fat. Decreased bulkof muscles of extremities. BMI 17.4 kg/m?. [employer] consult. #History of prostate cancer: stable. #DVT prophylaxis: lovenox Code status: full code * Patient counseled extensively about different types of CODE STATUS including full code, DNR CCA and DNR CCA. Patient elects to be full code; patient says he feels he is still in very good health and wants to have CPR and be intubated for a short period if needed. Charges/Coding Visit Charges Inpatient E&M: 06191 Subs Hosp L2 04/11/23 1512 <Electronically signed by Sung Sharma MD> Cosigner Signature (if applicable): CC: ~ Signed [facility] Work Phone: 1(351) 965-617201-12-2024 Progress note Author Sung Sharma [facility] April 10, 2023 4:59pm Note Date/Time April 10, 2023 7 :42am [facility] Medical Records Department [address] [place] [address] Progress Note - Hospitalist 04/10/23 0741 MR#: [id number] Acct: [id number] Name: ELIESER VILLEGAS Polo Rep #:[id number] : 1935 87 From: Sung Cuellar PCP: Dr. Johnny Shelton, DO Status:ADM IN Location: [place] [address]-1 Reason for Visit Reason for Visit: Diagnoses Pneumonia, unspecified organism (04/09/23) Objective Data Objective Data Vital Signs: Vital Signs Temp Pulse Resp BP Pulse Ox O2 Del Method O2 Flow Rate 97.9 F 73 16 119/61 93 Room Air 2 04/10/23 06:35 04/10/23 06:35 04/10/23 06:35 04/10/23 06:35 04/10/23 06:35 04/10/23 06:35 04/10/23 02:15 Oxygen Flow Rate (L/min) 2 Oxygen Delivery Method Room Air Weight: 121 lb 3.2 oz Body Mass Index (BMI) 17.4 Intake & Output: Intake and Output for Last 24 Hours 04/08/23 04/09/23 04/10/23 23:59 23:59 23:59 Intake Total 1000 / 1000 425 / 425 Output Total 150 / 150 Balance 1000 / 1000 275 / 275 Lab / Micro Data 04/10/23 05:43 04/10/23 05:43 Labs: Laboratory Results - last 24 hr 04/09/23 21:15: WBC 5.0, RBC 4.51 L, Hgb 13.5, Hct 40.4, MCV 89.6, MCH 29.9, MCHC 33.4, RDW Std Deviation 48.8 H, RDW Coeff of Michael 15.0 H, Plt Count 210, MPV8.9, Immature Gran % (Auto) 1.200 H, Neut % (Auto) 77.6 H, Lymph % (Auto) 10.8 L, [place] % (Auto) 9.8, Eos % (Auto) 0.0, Baso % (Auto) 0.6, Absolute Neuts (auto) 3.9, Absolute Lymphs (auto) 0.54 L, Nucleated RBC % 0, Differential Comment SEE COMMENT, Platelet Estimate ADEQUATE, RBC Morphology NORM C+C, Anisocytosis RARE,PT 14.0, INR 1.1, APTT 34.9, Sodium 135 L, Potassium 4.1, Chloride 101, Carbon Dioxide 29.0, Anion Gap 5, BUN 17, Creatinine 0.95, Estim Creat Clear Calc 42.93, Est GFR (MDRD) Af Amer 96, Est GFR (MDRD) Non-Af 80, BUN/Creatinine Ratio17.9, Glucose 114 H, Lactic Acid 1.1, Calcium 8.7, Total Bilirubin 0.80, AST 15,ALT 15 L, Alkaline Phosphatase 128 H, Total Protein 6.9, Albumin 2.6 L, Globulin4.3 H, Albumin/Globulin Ratio 0.6 L 04/09/23 22:49: Urine Color Yellow, Urine Clarity Cloudy, Urine pH 6.0, Ur Specific Nixa 1.020, Urine Protein 100 H, Urine Glucose (UA) Normal, Urine Ketones 5 H, Urine Occult Blood 250 H, Urine Nitrite Negative, Urine Bilirubin Negative, Urine Urobilinogen Normal, Ur Leukocyte Esterase 500 H, Urine RBC 50-100 SEEN, Urine WBC 10-25 SEEN, Ur Squamous Epith Cells 0 SEEN, Urine Bacteria RARE, Urine Mucus 0 SEEN 04/10/23 05:43: WBC 4.1 L, RBC 3.58 L, Hgb 10.8 L, Hct 32.9 L, MCV 91.9, MCH 30.2, MCHC 32.8, RDW Std Deviation 50.4 H, RDW Coeff of Michael 14.9 H, Plt Count 171, MPV 9.2, Immature Gran % (Auto) 0.700, Neut % (Auto) 74.9 H, Lymph % (Auto)12.0 L, [place] % (Auto) 11.5 H, Eos % (Auto) 0.7, Baso % (Auto) 0.2, Absolute Neuts (auto) 3.1, Absolute Lymphs (auto) 0.49 L, Nucleated RBC % 0, DifferentialComment SCANNED, Diff Path Review July, Sodium 135 L, Potassium 4.0, Chloride 104, Carbon Dioxide 27.0, Anion Gap 4 L, BUN 15, Creatinine 0.81, EstimCreat Clear Calc 49.96, Est GFR (MDRD) Af Amer 116, Est GFR (MDRD) Non-Af 95, BUN/Creatinine Ratio 18.5, Glucose 131 H, Calcium 7.5 L Micro: Microbiology 04/09/23 22:49 Urine Catheter - Catheter Legionella Antigen - Final 04/09/23 22:49 Urine Catheter - Catheter Streptococcus pneumoniae Antigen (M- Final 04/09/23 21:20 Mucosa - Nasopharyngeal SARS-CoV-2, Influenza & RSV (PCR) - Final Radiography Diagnostic Testing: Radiology Impression Chest X-Ray 04/09/23 21:20 IMPRESSION: Right-sided basilar density, slightly decreased in the interval is suggestive of residual infiltrate versus atelectasis. Clinical correlation recommended. Electronically Signed: Lucila Bhatti MD at 22:02 EST , Rhythm Strip Rhythm Strip: Sinus Rhythm Rate: 87 Ectopy: None Physical Exam Narrative Seen and examined. Patient states he has shortness of breath for more than 10 years along with cough and sputum production. For last1 week he is more short of breath, dyspneaat rest. Denies any acute change in his sputum production which is grayish in coloration. He history is vague and he states that he is always short of breath. Physical exam General: Alert, Oriented x3, Cooperative, BMI 17.40 kg/m? HEENT: Atraumatic, PERRLA, EOMI, Normocephalic Oral: No Gingival or Mucosal Lesions/ Ulcerations Neck: Supple, No JVD, Negative Carotid Bruits Lungs: Air entry diminished in bilateral lung bases. Dyspnea on mild exertion. Coarse crepitations worse on the right lung base. Cardiovascular: Regular rate, Regular Rhythm, Normal S1, Normal S2, No murmurs Abdomen: Bowel Sounds Present, Soft, Non Tender, Non-Distended : No renal angle tenderness. No suprapubic tenderness. Extremities: No edema, Capillary Refill Less than 3 Seconds Skin: No rashes, No breakdown Musculoskeletal: No Tenderness to Palpation of Joints or Extremities. Mild decreased muscle bulk of thighs and calf, mild chronic malnutrition Neurological: Cranial nerves II-XII grossly intact, DTR 2+/4. No acute focal neurological deficit. Psych/Mental Status: Flat affect. Assessment & Plan Assessment/Plan (1) Pneumonia: PLAN: Plan #Community acquired pneumonia * admit to med surg * admitted with a complaitn of weakness and found to have right sided pneumonia and a fever * COVID, flu and RSV negative Urinary antigens are negative for Legionella and Streptococcus. Patient is dehydrated and continue IV fluid. On empiric IV ceftriaxone and azithromycin. Chest x-ray individually reviewed and shows right lower lobe infiltrate consistent with pneumonia. Aggressive bronchopulmonary hygiene with incentive spirometry and PEP. Mild chronic malnutrition: Patient has loss of subcutaneous fat. Decreased bulkof muscles of extremities. BMI 17.4 kg/m?. #History of prostate cancer: stable. #DVT prophylaxis: lovenox Code status: full code * Patient counseled extensively about different types of CODE STATUS including full code, DNR CCA and DNR CCA. Patient elects to be full code; patient says he feels he is still in very good health and wants to have CPR and be intubated for a short period if needed. Charges/Coding Visit Charges Inpatient E&M: 93016 Subs Hosp L2 04/10/23 4594 <Electronically signed by Sung Sharma MD> Cosigner Signature (if applicable): CC: ~ Signed [facility] Work Phone: 1(111) 857-866201-12-2024 History and physical note Author Twila Humphreys [facility] April 10, 2023 2:08am Note Date/Time April 09, 2023 1 1:52pm [facility] Medical Records Department [address] [place] [address] History & Physical Exam 04/09/23 2351 MR#: [id number] Acct: [id number] Name: ELIESER VILLEGAS #:[id number] : 1935 87 From: Twila Humphreys MD PCP: Dr. Johnny Shelton, DO Status:ADM IN Location: [facility] [id number] HPI - General General Date of Admission: 04/09/23 Date of Service: 04/09/23 Chief Complaint: shortness of breath, fever HPI Narrative ELIESER VILLEGAS, is a 87 M with a PMH as outlined who presents via the ED on 04/10/2023 with a complaitn of generalised weakness. HE said he tried to get off the cough at home but he felt too weak. He had associated cough productive of grayish sputum. He said he felt warm but didnt think he had a fever; he however says he was told his temperature went up to 102F. He denied any palpitations, dizziness, nausea, vomiting or any other symptoms. Review of systems is otherwise negative. He has been admitted to our facility in February 2023 for pneumonia also. Vitals in the ED were BP of 110/63, KS of 81, RR of 19 and temp of 98.9F. He wassaturating at 98% on room air. CBC showed hb of 13.5, wbc of 5 and platelets of210. INR is 1.1. Chemistry showed sodium of 135, potassium of 4.1, bicarb of 29 and Cr of 0.95. Urinalysis showed no evidence of UTI. COVID, flu and RSV tests were negative. CXR showed evidence of right lower lobe infiltrate. He is being admitted to be managed for presumptive community acquired pneumonia. [facility] Medical History Abnormal results of thyroid function studies Alcohol use Arthritis Back pain Cancer Cholelithiasis Chronic bronchitis Closed intertrochanteric fracture of left femur Former smoker Heartburn History of edema History of SIADH Hydronephrosis Hyponatremia Kidney failure Loss of hearing Low iron Prostate cancer Prostatic cancer Shortness of breath on exertion Vitamin D insufficiency Wears glasses Wears partial dentures Home Medications NK 04/09/23 [History Last Taken Unknown] Allergy/AdvReac Type Severity Reaction Status Date / Time No Known Allergies Allergy Verified 04/09/23 21:06 Family History Other Heart disease Surgical History H/O hernia repair History of cystoscopy History of open reduction and internal fixation (ORIF) procedure History of open reduction and internal fixation (ORIF) procedure History of renal stent History of transurethral resection of prostate Hx of cystoscopy Status post appendectomy Social History household members: spouse and other details: 2 stry house. He sleeps downstairs in a recliner. 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 Tobacco: How many years used: 67 how long ago did patient quit smoking: He quit in 2019 alcohol intake: current alcohol intake frequency: holidays/special occasions only substance use type: does not use ROS Constitutional Constitutional: Reports fatigue, fever(s), malaise and weakness; Denies anorexia, change in weight or chills Eyes Eyes: Denies change in vision ENT HEENT: Denies dysphagia or headache(s) Cardiovascular Cardiovascular: Denies chest pain, edema, orthopnea, palpitations or paroxysmal nocturnal dyspnea Respiratory/Chest Respiratory/Chest: Denies cough, shortness of breath at rest or shortness of breath with exertion Gastrointestinal Gastrointestinal: Denies abdominal pain, nausea or vomiting Genitourinary Genitourinary: Denies dysuria Musculoskeletal Musculoskeletal: Denies back pain or joint pain Neurologic Neurologic: Denies confusion, dizziness, focal weakness, headache(s) or weakness Psychiatric Psychiatric: Denies anxiety or depression Endocrine Endocrinology: Denies change in body appearance Hematologic/Lymphatic Hematologic/Lymphatic: Denies anemia Vital Signs Vital Signs Vital Signs: 04/09/23 21:03 04/09/23 21:03 04/09/23 21:14 Temperature 102.8 F H Temperature Source Temporal Pulse Rate 108 H Respiratory Rate Respiratory Effort Short of Breath Respiratory Depth Deep Respiratory Pattern Tachypnea Blood Pressure 155/84 H Blood Pressure Mean 107 Pulse Ox 91 92 Oxygen Delivery Method Room Air Room Air Nasal Cannula Oxygen Flow Rate (L/min) 2 04/09/23 21:14 04/09/23 21:58 04/09/23 21:58 Temperature Temperature Source Pulse Rate 89 Respiratory Rate 22 H 20 H Respiratory Effort Respiratory Depth Respiratory Pattern Blood Pressure 131/92 H Blood Pressure Mean 105 Pulse Ox 88 93 93 Oxygen Delivery Method Room Air Nasal Cannula Nasal Cannula Oxygen Flow Rate (L/min) 2 2 04/09/23 22:11 04/09/23 22:50 04/09/23 23:00 Temperature 99.6 F H 98.6 F 98.6 F Temperature Source Temporal Oral Oral Pulse Rate 88 88 Respiratory Rate 23 H 18 Respiratory Effort Respiratory Depth Respiratory Pattern Blood Pressure 115/59 L 113/57 L Blood Pressure Mean 77 75 Pulse Ox 93 97 Oxygen Delivery Method Nasal Cannula Nasal Cannula Oxygen Flow Rate (L/min) 2 0 04/09/23 23:42 Temperature 98.9 F Temperature Source Pulse Rate 81 Respiratory Rate 19 H Respiratory Effort Respiratory Depth Respiratory Pattern Blood Pressure 110/63 Blood Pressure Mean 78 Pulse Ox 98 Oxygen Delivery Method Oxygen Flow Rate (L/min) Weight Weight: 122 lb 2.177 oz Body Mass Index (BMI) 18.0 Physical Exam Const alert, oriented x3 and no apparent distress Constitutional Narrative: frail General Appearance: cooperative and well developed HEENT normocephalic, head/scalp atraumatic, moist oral mucous membranes and oropharynxnormal Eyes PERRL and EOMs intact bilaterally Neck no lymphadenopathy, supple and no JVD Lymph Lymphatic: no lymphadenopathy noted and no lymphedema noted Resp Resp Narrative: diminished breath sounds bibasally, few crackles in right lower lung manzo, no wheezing. on 2L of oxygen. Cardio regular rate, regular rhythm, S1 normal heart sound, S2 normal heart sound and no murmurs GI normal to inspection, nondistended, normoactive bowel sounds, soft to palpation and non-tender Extremity normal capillary refill, no clubbing, cyanosis or edema and no calf tenderness General Extremity: no tenderness to palpation of joints or extremities Skin General Skin Exam: no breakdown Neuro CN's II-XII intact bilaterally, no focal motor deficits and no sensory deficits noted Motor Exam: strength 5/5 throughout and general weakness Psych thought process normal, cooperative and affect normal Results Lab / Micro Data 04/09/23 21:15 04/09/23 21:15 Labs: Laboratory Results - last 24 hr 04/09/23 21:15: WBC 5.0, RBC 4.51 L, Hgb 13.5, Hct 40.4, MCV 89.6, MCH 29.9, MCHC 33.4, RDW Std Deviation 48.8 H, RDW Coeff of Michael 15.0 H, Plt Count 210, MPV8.9, Immature Gran % (Auto) 1.200 H, Neut % (Auto) 77.6 H, Lymph % (Auto) 10.8 L, [place] % (Auto) 9.8, Eos % (Auto) 0.0, Baso % (Auto) 0.6, Absolute Neuts (auto) 3.9, Absolute Lymphs (auto) 0.54 L, Nucleated RBC % 0, Differential Comment SEE COMMENT, Platelet Estimate ADEQUATE, RBC Morphology NORM C+C, Anisocytosis RARE,PT 14.0, INR 1.1, APTT 34.9, Sodium 135 L, Potassium 4.1, Chloride 101, Carbon Dioxide 29.0, Anion Gap 5, BUN 17, Creatinine 0.95, Estim Creat Clear Calc 42.93, Est GFR (MDRD) Af Amer 96, Est GFR (MDRD) Non-Af 80, BUN/Creatinine Ratio 17.9, Glucose 114 H, Lactic Acid 1.1, Calcium 8.7, Total Bilirubin 0.80, AST 15,ALT 15 L, Alkaline Phosphatase 128 H, Total Protein 6.9, Albumin 2.6 L, Globulin4.3 H, Albumin/Globulin Ratio 0.6 L 04/09/23 22:49: Urine Color Yellow, Urine Clarity Cloudy, Urine pH 6.0, Ur Specific Nixa 1.020, Urine Protein 100 H, Urine Glucose (UA) Normal, Urine Ketones 5 H, Urine Occult Blood 250 H, Urine Nitrite Negative, Urine Bilirubin Negative, Urine Urobilinogen Normal, Ur Leukocyte Esterase 500 H, Urine RBC 50-100 SEEN, Urine WBC 10-25 SEEN, Ur Squamous Epith Cells 0 SEEN, Urine Bacteria RARE, Urine Mucus 0 SEEN Micro: Microbiology 04/09/23 21:20 Mucosa - Nasopharyngeal SARS-CoV-2, Influenza & RSV (PCR) - Final Rhythm Strip Rhythm Strip: Sinus Rhythm Rate: 87 Ectopy: None Imagaing Radiology Impression Chest X-Ray 04/09/23 21:20 IMPRESSION: Right-sided basilar density, slightly decreased in the interval is suggestive of residual infiltrate versus atelectasis. Clinical correlation recommended. Electronically Signed: Lucila Bhatti MD at 22:02 EST , Assessment & Plan Assessment/Plan (1) Pneumonia: PLAN: Plan #Community acquired pneumonia * admit to med surg * admitted with a complaitn of weakness and found to have right sided pneumonia and a fever * COVID, flu and RSV negative * CXR showed right lower lobe infiltrate * check urine for strep and legionella as well as sputum culture. * get blood culture in light of fever of 102 * start on IV ceftriaxone and azithromycin * hydrate very gently with IVF NS @ 125cc/hr x 2 bags * breathing treatment with bronchodilators * titrate oxygen as needed to maintain sats >90% * * #History of prostate cancer: stable. #DVT prophylaxis: lovenox Code status: full code * Patient counseled extensively about different types of CODE STATUS including full code, DNR CCA and DNR CCA. Patient elects to be full code; patient says he feels he is still in very good health and wants to have CPR and be intubated for a short period if needed. Total [id number] time 17 minutes. * Total time spent on evaluation and management of patient, reviewing chart, discussing plan with patient, discussion with nursing and ancillary staff as well as documentation: 77 mins Charges/Coding Visit Charges Inpatient E&M: 37092 Init Hosp L3 Procedures Hospitalists Procedures: 57576 Advncd Care Plan 30 Min 04/10/23 0208 <Electronically signed by Twila Humphreys MD> Cosigner Signature (if applicable): CC: Dr. Johnny Shelton DO; Dr. Twila Humphreys MD~ Signed [facility] Work Phone: 1(444) 145-397401-12-2024 Discharge summary Author Abhishek Isabel [facility] April 10, 2023 12:09am Note Date/Time April 09, 2023 1 1:08pm [facility] Medical Records Department [address] [place] [address] Emergency Department Summary 04/09/23 MR#: [id number] Acct: [id number] Name: ELIESER VILLEGAS Rep #:[id number] : 1935 87 From: Abhishek Isabel MD PCP: Dr. Johnny Shelton, DO Status:REG ER Location: ED HPI HPI - URI History of Present Illness Chief Complaint: Shortness of Breath Detail of Chief Complaint: Fever and shortness of breath. Cough of greenish sputum. Informant: patient, spouse/S.O. and family Onset/Context/Timing Onset: Days Context: Gradual Onset Timing: Continuous Current Severity: Moderate Maximum Severity: Moderate Associated Symptoms Associated Symptoms: Positive for Shortness of Breath and Productive Cough; Negative for Nasal Congestion, Nausea, Vomiting or Diarrhea Narrative Narrative: 87-year-old male history of ureteral stent, SI ADH, recent pneumonia in the past2 months and prostate cancer. Patient is complaining of fever of 102 with a cough and shortness of breath and generalized weakness. Says been feeling ill for the last 3 days. Denies any vomiting or diarrhea. No dysuria. No abdominal pain. Patient states that he was admitted to this facility with pneumonia in February. Prior similar symptoms: Yes Recent Illness/Hospitalization: Yes ROS ROS ED ROS Narrative Fever, cough and shortness of breath. Review of Systems ROS Unobtainable: Denies due to encephalopathy Constitutional Constitutional ED: Reports fever(s); Denies chills Eyes Eyes: Denies blurry vision ENT ENT ED: Denies ear pain Cardiovascular Cardiovascular: Denies chest pain Respiratory/Chest Respiratory/Chest: Reports cough and dyspnea Gastrointestinal Gastrointestinal: Denies abdominal pain Genitourinary Genitourinary ED: Denies dysuria or hematuria Musculoskeletal Musculoskeletal: Denies arthralgias Integumentary Denies abscess Neurologic Neurologic: Denies headache(s) Psychiatric Psychiatric: Denies anxiety Endocrine Endocrinology: Denies cold intolerance Hematologic/Lymphatic Hematologic/Lymphatic: Denies easy bleeding or easy bruising Allergic/Immunologic Allergic/Immunologic ED: Denies mouth swelling or tongue swelling [facility] Medical History Abnormal results of thyroid function studies Alcohol use Arthritis Back pain Cancer Cholelithiasis Chronic bronchitis Closed intertrochanteric fracture of left femur Former smoker Heartburn History of edema History of SIADH Hydronephrosis Hyponatremia Kidney failure Loss of hearing Low iron Prostate cancer Prostatic cancer Shortness of breath on exertion Vitamin D insufficiency Wears glasses Wears partial dentures Home Medications NK 04/09/23 [History Last Taken Unknown] Allergy/AdvReac Type Severity Reaction Status Date / Time No Known Allergies Allergy Verified 04/09/23 21:06 Family History Other Heart disease Surgical History H/O hernia repair History of cystoscopy History of open reduction and internal fixation (ORIF) procedure History of open reduction and internal fixation (ORIF) procedure History of renal stent History of transurethral resection of prostate Hx of cystoscopy Status post appendectomy Social History household members: spouse and other details: 2 st0ry house. He sleeps downstairs in a recliner. 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 Pulse ox is 88% on room air consistent with hypoxia and 92% on 2 L.. He looks ill and weak. H EENT exam dry mucous membranes. Neck nontender JVD. Lungs coarse breath sounds. But I do not appreciate any obvious rales, rhonchi or wheezing. Heart. Tachycardic rate about 105. Abdomen soft and nontender. No peritoneal signs. No distention. Chest wall is nontender. Back nontender. Moving all 4 extremities. Calves arenontender without edema or cords. There is no petechiae or purpura. No rashes. Neurologically is awake alert. Answering questions following commands. Familyat bedside. Const Vital Signs: 04/09/23 21:03 04/09/23 21:03 04/09/23 21:14 Temperature 102.8 F H Temperature Source Temporal Pulse Rate 108 H Respiratory Rate Respiratory Effort Short of Breath Respiratory Depth Deep Respiratory Pattern Tachypnea Blood Pressure 155/84 H Blood Pressure Mean 107 Pulse Ox 91 92 Oxygen Delivery Method Room Air Room Air Nasal Cannula Oxygen Flow Rate (L/min) 2 04/09/23 21:14 04/09/23 21:58 04/09/23 21:58 Temperature Temperature Source Pulse Rate 89 Respiratory Rate 22 H 20 H Respiratory Effort Respiratory Depth Respiratory Pattern Blood Pressure 131/92 H Blood Pressure Mean 105 Pulse Ox 88 93 93 Oxygen Delivery Method Room Air Nasal Cannula Nasal Cannula Oxygen Flow Rate (L/min) 2 2 04/09/23 22:11 04/09/23 22:50 04/09/23 23:00 Temperature 99.6 F H 98.6 F 98.6 F Temperature Source Temporal Oral Oral Pulse Rate 88 88 Respiratory Rate 23 H 18 Respiratory Effort Respiratory Depth Respiratory Pattern Blood Pressure 115/59 L 113/57 L Blood Pressure Mean 77 75 Pulse Ox 93 97 Oxygen Delivery Method Nasal Cannula Nasal Cannula Oxygen Flow Rate (L/min) 2 0 Positive well nourished and well developed; Negative for obese, cachectic or contractures General Appearance ED: well developed and NAD; Negative for cachectic, contractures, cyanotic, diaphoretic or pallor Nutritional Appearance: Negative for cachectic or obese HEENT Reports dry mucous membranes HEENT Narrative: . normocephalic and atraumatic Face and Sinus: Negative for sinus tenderness or maxillary instability Mouth ED: Yes dry mucous membranes Mouth: dry mucous membranes Throat: posterior oropharynx normal Eyes PERRL and EOMs intact bilaterally General Eye ED: Negative for pale conjunctiva or scleral icterus Neck no lymphadenopathy, supple, no meningeal signs and no JVD General: Negative for anterior neck swelling or lymphadenopathy Resp normal respiratory effort and clear to auscultation bilaterally Effort and Inspection: Negative for retractions Auscultation: Negative for rales, rhonchi or wheezes Cardio S1 normal heart sound, S2 normal heart sound and no murmurs Rate: tachycardic Rhythm: regular rhythm GI non-tender and non-distended Inspection: Negative for abdominal distention Auscultation: normoactive bowel sounds Palpation: soft; Negative for tender or guarding Back/Spine no CVA tenderness and normal ROM General Back: Negative for CVA tenderness Cervical Spine: Negative for cervical spine tenderness Thoracic Spine / Upper Back: Negative for thoracic spinal tenderness Lumbar Spine / Lower Back: Negative for lumbar spinal tenderness Sacrum: Negative for tenderness Extremity normal to inspection and full ROM General Extremety ED: Negative for cyanosis, tenderness or other findings General Extremity: Negative for cyanosis or other findings Neuro oriented x3 and CN's II-XII intact bilaterally Sensorium / Orientation: alert, oriented to person, oriented to place and oriented to time; Negative for orientation impaired, lethargic or stuporous Motor Exam: strength 5/5 throughout Psych mental status grossly normal Appearance: Negative for other Attitude: No agitated Mood & Affect: Negative for depressed, anxious or tearful Skin General Skin Exam: Negative for jaundice or pallor Lesions: no lesions Rashes: no rashes Trauma: Negative for abrasion MDM MDM MDM Narrative Medical decision making narrative: 87-year-old male hypoxic with fever rule out viral syndrome versus pneumonia versus other etiologies. Treated with IV fluids. Tylenol for fever and a septic workup. Repeat exam at 11:08 PM patient doing better. Fevers broke with Tylenol. He isreceiving IV fluids. History & Record Review Discussion w/independent historian: Patient and Family Additional record(s) reviewed:: Prior inpatient record, Prior outpatient record,Prior ED visit and Prior labs Lab Data Attestation: I reviewed the patient's lab results. Lab results narrative: CBC shows a white count of 5. H&H 13.5 and 40. Platelets 210. PT/INR of 14 and 1. PTT of 34. Electrolytes show sodium 135. Gap of 5. Normal BUN of 17 creatinine 0.95. Liver enzymes are unremarkable. Alk phos of 128. Glucose 114. Lactic acid is normal at 1.1. COVID flu and RSV are all negative. Labs: Laboratory Results - last 24 hr 04/09/23 21:15 WBC 5.0 RBC 4.51 L Hgb 13.5 Hct 40.4 MCV 89.6 MCH 29.9 MCHC 33.4 RDW Std Deviation 48.8 H RDW Coeff of Michael 15.0 H Plt Count 210 MPV 8.9 Immature Gran % (Auto) 1.200 H Neut % (Auto) 77.6 H Lymph % (Auto) 10.8 L [place] % (Auto) 9.8 Eos % (Auto) 0.0 Baso % (Auto) 0.6 Absolute Neuts (auto) 3.9 Absolute Lymphs (auto) 0.54 L Nucleated RBC % 0 Differential Comment SEE COMMENT Platelet Estimate ADEQUATE RBC Morphology NORM C+C Anisocytosis RARE PT 14.0 INR 1.1 APTT 34.9 Sodium 135 L Potassium 4.1 Chloride 101 Carbon Dioxide 29.0 Anion Gap 5 BUN 17 Creatinine 0.95 Estim Creat Clear Calc 42.93 Est GFR (MDRD) Af Amer 96 Est GFR (MDRD) Non-Af 80 BUN/Creatinine Ratio 17.9 Glucose 114 H Lactic Acid 1.1 Calcium 8.7 Total Bilirubin 0.80 AST 15 ALT 15 L Alkaline Phosphatase 128 H Total Protein 6.9 Albumin 2.6 L Globulin 4.3 H Albumin/Globulin Ratio 0.6 L Radiography Chest X-Ray - ED: 1 View, Read by ED Physician, Read by Radiologist, Mediastinum, Bony Structures and Chronic Changes Diagnostic Testing: Clinical Impression(s) from Imaging Studies Chest X-Ray 04/09/23 21:20 IMPRESSION: Right-sided basilar density, slightly decreased in the interval is suggestive of residual infiltrate versus atelectasis. Clinical correlation recommended. Electronically Signed: Lucila Bhatti MD at 22:02 EST , Chest x-ray, portable, single view interpreted both by myself and the radiologist. Patient has a right lower lobe density it looks very from a to a prior chest x- ray about a month ago that was called pneumonia but this could also be just chronic changes and/or atelectasis. With his fever and his white count obviously pneumonia is a strong possibility also. Rhythm Strip Rhythm Strip: Sinus Rhythm Rate: 87 Ectopy: None EKG Initial EKG: Attestation: I personally reviewed and interpreted this EKG as follows: Interpretation: No Acute Injury Pattern Comments: Normal sinus rhythm rate 87 no acute signs of NV or ischemia. Discharge Plan Triage Chief Complaint: Shortness of Breath ED Provider: Abhishek Isabel Dx/Rx/DC Orders Prescriptions: No Action NK Primary Care Provider: Johnny Shelton Referrals: Johnny Shelton DO [Primary Care Provider] - What to do if you have Problems For any increased pain, shortness of breath, bleeding, nausea or vomiting, chestpain, or any unexpected problems, contact your Primary Care Provider. Call [facility] ([phone]) or report to the closest Emergency Room. Call 911 if necessary. 04/10/23 0009 <Electronically signed by Abhishek Isabel MD> Cosigner Signature (if applicable): CC: Dr. Johnny Shelton DO ~ Signed [facility] Work Phone: 1(337) 582-751901-12-2024 Discharge summary Author Abhishek Isabel [facility] April 10, 2023 12:09am Note Date/Time April 09, 2023 1 1:08pm [facility] Medical Records Department [address] [place] [address] Emergency Department Summary 04/09/23 MR#: [id number] Acct: [id number] Name: ELIESER VILLEGAS Rep #:[id number] : 1935 87 From: Abhishek Isabel MD PCP: Dr. Johnny Shelton, DO Status:REG ER Location: ED HPI HPI - URI History of Present Illness Chief Complaint: Shortness of Breath Detail of Chief Complaint: Fever and shortness of breath. Cough of greenish sputum. Informant: patient, spouse/S.O. and family Onset/Context/Timing Onset: Days Context: Gradual Onset Timing: Continuous Current Severity: Moderate Maximum Severity: Moderate Associated Symptoms Associated Symptoms: Positive for Shortness of Breath and Productive Cough; Negative for Nasal Congestion, Nausea, Vomiting or Diarrhea Narrative Narrative: 87-year-old male history of ureteral stent, SI ADH, recent pneumonia in the past2 months and prostate cancer. Patient is complaining of fever of 102 with a cough and shortness of breath and generalized weakness. Says been feeling ill for the last 3 days. Denies any vomiting or diarrhea. No dysuria. No abdominal pain. Patient states that he was admitted to this facility with pneumonia in February. Prior similar symptoms: Yes Recent Illness/Hospitalization: Yes ROS ROS ED ROS Narrative Fever, cough and shortness of breath. Review of Systems ROS Unobtainable: Denies due to encephalopathy Constitutional Constitutional ED: Reports fever(s); Denies chills Eyes Eyes: Denies blurry vision ENT ENT ED: Denies ear pain Cardiovascular Cardiovascular: Denies chest pain Respiratory/Chest Respiratory/Chest: Reports cough and dyspnea Gastrointestinal Gastrointestinal: Denies abdominal pain Genitourinary Genitourinary ED: Denies dysuria or hematuria Musculoskeletal Musculoskeletal: Denies arthralgias Integumentary Denies abscess Neurologic Neurologic: Denies headache(s) Psychiatric Psychiatric: Denies anxiety Endocrine Endocrinology: Denies cold intolerance Hematologic/Lymphatic Hematologic/Lymphatic: Denies easy bleeding or easy bruising Allergic/Immunologic Allergic/Immunologic ED: Denies mouth swelling or tongue swelling PFSH PFSH Medical History Abnormal results of thyroid function studies Alcohol use Arthritis Back pain Cancer Cholelithiasis Chronic bronchitis Closed intertrochanteric fracture of left femur Former smoker Heartburn History of edema History of SIADH Hydronephrosis Hyponatremia Kidney failure Loss of hearing Low iron Prostate cancer Prostatic cancer Shortness of breath on exertion Vitamin D insufficiency Wears glasses Wears partial dentures Home Medications NK 04/09/23 [History Last Taken Unknown] Allergy/AdvReac Type Severity Reaction Status Date / Time No Known Allergies Allergy Verified 04/09/23 21:06 Family History Other Heart disease Surgical History H/O hernia repair History of cystoscopy History of open reduction and internal fixation (ORIF) procedure History of open reduction and internal fixation (ORIF) procedure History of renal stent History of transurethral resection of prostate Hx of cystoscopy Status post appendectomy Social History household members: spouse and other details: 2 st0ry house. He sleeps downstairs in a recliner. 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 Pulse ox is 88% on room air consistent with hypoxia and 92% on 2 L.. He looks ill and weak. H EENT exam dry mucous membranes. Neck nontender JVD. Lungs coarse breath sounds. But I do not appreciate any obvious rales, rhonchi or wheezing. Heart. Tachycardic rate about 105. Abdomen soft and nontender. No peritoneal signs. No distention. Chest wall is nontender. Back nontender. Moving all 4 extremities. Calves arenontender without edema or cords. There is no petechiae or purpura. No rashes. Neurologically is awake alert. Answering questions following commands. Familyat bedside. Const Vital Signs: 04/09/23 21:03 04/09/23 21:03 04/09/23 21:14 Temperature 102.8 F H Temperature Source Temporal Pulse Rate 108 H Respiratory Rate Respiratory Effort Short of Breath Respiratory Depth Deep Respiratory Pattern Tachypnea Blood Pressure 155/84 H Blood Pressure Mean 107 Pulse Ox 91 92 Oxygen Delivery Method Room Air Room Air Nasal Cannula Oxygen Flow Rate (L/min) 2 04/09/23 21:14 04/09/23 21:58 04/09/23 21:58 Temperature Temperature Source Pulse Rate 89 Respiratory Rate 22 H 20 H Respiratory Effort Respiratory Depth Respiratory Pattern Blood Pressure 131/92 H Blood Pressure Mean 105 Pulse Ox 88 93 93 Oxygen Delivery Method Room Air Nasal Cannula Nasal Cannula Oxygen Flow Rate (L/min) 2 2 04/09/23 22:11 04/09/23 22:50 04/09/23 23:00 Temperature 99.6 F H 98.6 F 98.6 F Temperature Source Temporal Oral Oral Pulse Rate 88 88 Respiratory Rate 23 H 18 Respiratory Effort Respiratory Depth Respiratory Pattern Blood Pressure 115/59 L 113/57 L Blood Pressure Mean 77 75 Pulse Ox 93 97 Oxygen Delivery Method Nasal Cannula Nasal Cannula Oxygen Flow Rate (L/min) 2 0 Positive well nourished and well developed; Negative for obese, cachectic or contractures General Appearance ED: well developed and NAD; Negative for cachectic, contractures, cyanotic, diaphoretic or pallor Nutritional Appearance: Negative for cachectic or obese HEENT Reports dry mucous membranes HEENT Narrative: . normocephalic and atraumatic Face and Sinus: Negative for sinus tenderness or maxillary instability Mouth ED: Yes dry mucous membranes Mouth: dry mucous membranes Throat: posterior oropharynx normal Eyes PERRL and EOMs intact bilaterally General Eye ED: Negative for pale conjunctiva or scleral icterus Neck no lymphadenopathy, supple, no meningeal signs and no JVD General: Negative for anterior neck swelling or lymphadenopathy Resp normal respiratory effort and clear to auscultation bilaterally Effort and Inspection: Negative for retractions Auscultation: Negative for rales, rhonchi or wheezes Cardio S1 normal heart sound, S2 normal heart sound and no murmurs Rate: tachycardic Rhythm: regular rhythm GI non-tender and non-distended Inspection: Negative for abdominal distention Auscultation: normoactive bowel sounds Palpation: soft; Negative for tender or guarding Back/Spine no CVA tenderness and normal ROM General Back: Negative for CVA tenderness Cervical Spine: Negative for cervical spine tenderness Thoracic Spine / Upper Back: Negative for thoracic spinal tenderness Lumbar Spine / Lower Back: Negative for lumbar spinal tenderness Sacrum: Negative for tenderness Extremity normal to inspection and full ROM General Extremety ED: Negative for cyanosis, tenderness or other findings General Extremity: Negative for cyanosis or other findings Neuro oriented x3 and CN's II-XII intact bilaterally Sensorium / Orientation: alert, oriented to person, oriented to place and oriented to time; Negative for orientation impaired, lethargic or stuporous Motor Exam: strength 5/5 throughout Psych mental status grossly normal Appearance: Negative for other Attitude: No agitated Mood & Affect: Negative for depressed, anxious or tearful Skin General Skin Exam: Negative for jaundice or pallor Lesions: no lesions Rashes: no rashes Trauma: Negative for abrasion MDM MDM MDM Narrative Medical decision making narrative: 87-year-old male hypoxic with fever rule out viral syndrome versus pneumonia versus other etiologies. Treated with IV fluids. Tylenol for fever and a septic workup. Repeat exam at 11:08 PM patient doing better. Fevers broke with Tylenol. He isreceiving IV fluids. History & Record Review Discussion w/independent historian: Patient and Family Additional record(s) reviewed:: Prior inpatient record, Prior outpatient record,Prior ED visit and Prior labs Lab Data Attestation: I reviewed the patient's lab results. Lab results narrative: CBC shows a white count of 5. H&H 13.5 and 40. Platelets 210. PT/INR of 14 and 1. PTT of 34. Electrolytes show sodium 135. Gap of 5. Normal BUN of 17 creatinine 0.95. Liver enzymes are unremarkable. Alk phos of 128. Glucose 114. Lactic acid is normal at 1.1. COVID flu and RSV are all negative. Labs: Laboratory Results - last 24 hr 04/09/23 21:15 WBC 5.0 RBC 4.51 L Hgb 13.5 Hct 40.4 MCV 89.6 MCH 29.9 MCHC 33.4 RDW Std Deviation 48.8 H RDW Coeff of Michael 15.0 H Plt Count 210 MPV 8.9 Immature Gran % (Auto) 1.200 H Neut % (Auto) 77.6 H Lymph % (Auto) 10.8 L [place] % (Auto) 9.8 Eos % (Auto) 0.0 Baso % (Auto) 0.6 Absolute Neuts (auto) 3.9 Absolute Lymphs (auto) 0.54 L Nucleated RBC % 0 Differential Comment SEE COMMENT Platelet Estimate ADEQUATE RBC Morphology NORM C+C Anisocytosis RARE PT 14.0 INR 1.1 APTT 34.9 Sodium 135 L Potassium 4.1 Chloride 101 Carbon Dioxide 29.0 Anion Gap 5 BUN 17 Creatinine 0.95 Estim Creat Clear Calc 42.93 Est GFR (MDRD) Af Amer 96 Est GFR (MDRD) Non-Af 80 BUN/Creatinine Ratio 17.9 Glucose 114 H Lactic Acid 1.1 Calcium 8.7 Total Bilirubin 0.80 AST 15 ALT 15 L Alkaline Phosphatase 128 H Total Protein 6.9 Albumin 2.6 L Globulin 4.3 H Albumin/Globulin Ratio 0.6 L Radiography Chest X-Ray - ED: 1 View, Read by ED Physician, Read by Radiologist, Mediastinum, Bony Structures and Chronic Changes Diagnostic Testing: Clinical Impression(s) from Imaging Studies Chest X-Ray 04/09/23 21:20 IMPRESSION: Right-sided basilar density, slightly decreased in the interval is suggestive of residual infiltrate versus atelectasis. Clinical correlation recommended. Electronically Signed: Lucila Bhatti MD at 22:02 EST , Chest x-ray, portable, single view interpreted both by myself and the radiologist. Patient has a right lower lobe density it looks very from a to a prior chest x- ray about a month ago that was called pneumonia but this could also be just chronic changes and/or atelectasis. With his fever and his white count obviously pneumonia is a strong possibility also. Rhythm Strip Rhythm Strip: Sinus Rhythm Rate: 87 Ectopy: None EKG Initial EKG: Attestation: I personally reviewed and interpreted this EKG as follows: Interpretation: No Acute Injury Pattern Comments: Normal sinus rhythm rate 87 no acute signs of NV or ischemia. Discharge Plan Triage Chief Complaint: Shortness of Breath ED Provider: Abhishek Isabel Dx/Rx/DC Orders Prescriptions: No Action NK Primary Care Provider: Johnny Shelton Referrals: Johnny Shelton DO [Primary Care Provider] - What to do if you have Problems For any increased pain, shortness of breath, bleeding, nausea or vomiting, chestpain, or any unexpected problems, contact your Primary Care Provider. Call [facility] ([phone]) or report to the closest Emergency Room. Call 911 if necessary. 04/10/23 0009 <Electronically signed by Abhishek Isabel MD> Cosigner Signature (if applicable): CC: Dr. Johnny Shelton DO ~ Signed [facility] Work Phone: 1(490) 220-150711-10-2023 Progress [facility] Author [facility] February 06, 2023 9:33am Note Date/Time February 06, 2023 9:33am [facility] [address] [place] [id number] Progress Note - Wound Care 02/06/23 0931 MR#: [id number] Acct: [id number] Name: ELIESER VILLEGAS Rep #:[id number] : 1935 87 From: Candice Truong DO PCP: Dr. Johnny Shelton DO Status:REG RCR Location: History of Present Illness Date of Service: 02/06/23 Chief Complaint: Stage 2 pressure ulcer left buttock History of Wound: Elieser is a very pleasant 87 yo gentleman that presents to the wound healing center today for evaluation and treatment of a left buttock ulcer that has been present for many years and comes and goes. He has used many topical treatments including calmoseptine and Aquaphor to the area. He sits on adonut cushion when he is sitting in his recliner which is where he spends the majority of his time during the day. He has lost approx. 40 lbs over the last several years which he attributes to some of the cause of the ulcer as he does not have as much subcutaneous tissue between his skin and his ischium. He does eat well but does not like protein shakes or yogurt. He is otherwise healthy anddoes not have any chronic medical problems. He was referred here by a Rehab facility where he was receiving therapy after a hip fracture and repair. He is doing well and mobility is improving. There has been no wound cultures done on the wound and he is currently not on any antibiotic treatment. He denies drainage but states the the area is painful unless it is covered with a bandage. Subjective Subjective Elieser is here today for follow up of a nonhealing pressure ulcer on his left buttock. His ulcer is slightly improved. He is tolerating dressings with Promogran and foam bordered dressing for moderate drainage. He denies any increased drainage, pain or erythema. Objective Data Objective Data Vital Signs: Vital Signs Temp Pulse Resp BP O2 Del Method 98 F 78 18 122/61 H Room Air 02/06/23 08:58 02/06/23 08:58 02/06/23 08:58 02/06/23 08:58 02/06/23 08:58 Oxygen Delivery Method Room Air Physical Exam Const alert, oriented x3 and no apparent distress General Appearance: cooperative and comfortable HEENT normocephalic and head/scalp atraumatic Resp normal respiratory effort Effort and Inspection: able to speak in complete sentences Cardio regular rate and regular rhythm Skin Wounds: wounds noted Wound Narrative: as in clinical panel Psych mental status grossly normal, thought process normal, cooperative and affect normal Debridement Note Debridement Note Wound debrided: left buttock Laterality: Left Wound Grade/Stage: Stage 2 Type of Debridement: Selective debridement Anesthesia Used: 4% Lidocaine Solution and 5% Lidocaine Gel Depth: Down to and including healthy tissue and in the subcutaneous layer Percentage of wound debrided: 100 Instrument Used: - (gauze) Tissue Removed: Yellow slough, devitalized tissue Severity: Fat Layer Exposed Amount of bleeding with debridement: Mild Bleeding Controlled with: Compression and gauze Patient tolerated procedure: Patient tolerated procedure well Post-Debridement Measurements and Additional Note: Post-Debridement Measurements/Treatment - Nurse 1 - General Ulcer Assessment Start: 02/06/23 08:58 Freq: Status: Active Protocol: DEXTER.[place] Activity Type Activity Date Activity User E-sign Co-sign Detail Recorded Client Recorded Date Recorded By Document 02/06/23 08:58 CO Desktop 02/06/23 09:06 CO 02/06/23 08:58 - Today's Visit Information Type of service Follow-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 ) Arrival Mode Ambulatory Accompanied by self Patient Identification Verified (Name & Yes ) Safety Precautions Fall Prevention Vital Signs Temperature (97.8 F-99.1 F) 98 F Temperature Source Temporal Pulse Rate (60-100) 78 Pulse Location Monitor Respiratory Rate (12-18) 18 Respiratory rate source Observation Oxygen Delivery Method Room Air Blood Pressure (90/60-120/80) 122/61 H Blood Pressure Mean (mm Hg) 81 Source Monitor Position Sitting Blood Pressure Location Left Arm History Since Last Visit- (Skip if this is Patient's initial visit) Has dressing in place as prescribed Yes Has compression in place as prescribed N/A Has offloadiing in place as prescribed N/A Experienced any changes in pain level or No management Left Footwear Regular Shoe Right Footwear Regular Shoe Pain Scale: 0-10 Numeric Is Patient Pain Free? Yes WC - Nurse 1 - General Ulcer Measurement Start: 02/06/23 08:58 Freq: Status: Active Protocol: Activity Type Activity Date Activity User E-sign Co-sign Detail Recorded Client Recorded Date Recorded By Document 02/06/23 08:58 CO [employer] 02/06/23 09:06 CO 02/06/23 08:58 Wound Center Nurse 1 1. L buttock -Current Size (cm) - Length 0.1 -Current Size (cm) - Width 0.1 -Current Size (cm) - Depth 0.1 -Total Square Cm 0.01 -Tunneling No -Undermining/Tunneling No -Circular Undermining No -Exudate Amt None Present -Wound Margin Flat & Intact -Granulation Amt Large (67-100%) -Granulation Quality Pale,Council -Slough/Fibrin No -Necrosis Amt None Present (0 %) -Texture (Ela-wound Skin Appearance) Assessed,Rash -Moisture (Ela-wound Skin Appearance) Assessed, Maceration,Dry/ Scaly -Color (Ela-wound Skin Appearance) Assessed -Temperature (Ela-wound Skin No Abnormality Appearance) (Pt Warm) -Tenderness on Palpation (Ela-wound No Skin Appearance) -Ulcer Cleansing Rinsed/ Irrigated with Saline -Foul Odor after Cleansing No -Anesthetic Used 5% Lidocaine Gel Lower Limb Edema Present NA DEXTER - Nurse 2 - General Ulcer CM Notes Start: 02/06/23 08:58 Freq: Status: Active Protocol: Activity Type Activity Date Activity User E-sign Co-sign Detail Recorded Client Recorded Date Recorded By Document 02/06/23 09:12 Desktop 02/06/23 09:20 02/06/23 09:12 Wound Center Nurse 2 1. L buttock -Time 09:12 -Correct Patient Yes -Correct Side, Site, Position Yes -Correct Procedure Yes -Procedure Performed Yes -Type of Procedure Debridement -Clinical Debridement Epidermis / Dermis -Tissue Removed Epidermis -Post Debridement (cm) - Length 0.2 -Post Debridement (cm) - Width 0.2 -Post Debridement (cm) - Depth 0.2 -Total Square (Post) (cm) 0.04 -Area of Debridement (cm) - Length 0.2 -Area of Debridement (cm) - Width 0.2 -Total Square (Area) (cm) 0.04 -Tunneling No -Undermining/Tunneling No -Circular Undermining No -Ulcer Cleansing Rinsed/ Irrigated with Saline -Foul Odor after Cleansing No -Bleeding Controlled with Pressure -Treatment Response Procedure Tolerated Well -Debridement - Open, 1st 20sq cm Yes Pain Scale: 0-10 Numeric Is Patient Pain Free? Yes - Nurse 3 - General Ulcer D/C NN Start: 02/06/23 08:58 Freq: Status: Active Protocol: Activity Type Activity Date Activity User E-sign Co-sign Detail Recorded Client Recorded Date Recorded By Document 02/06/23 09:20 Desktop 02/06/23 09:21 02/06/23 09:20 Wound Care Center Nurse 3 1. L buttock -Ulcer Cleansing Not Cleansed -Foul Odor after Cleansing No -Primary Dressing Applied Mepilex Border, Promogran -Mepilex Border 1 -Promogran 1 Pain Scale: 0-10 Numeric Is Patient Pain Free? Yes Teaching: Wound Center Increased protein -Person Taught Patient -Teaching Method Discussion -Response to teaching Verbalize understanding WC - Visit Discharge Discharge Condition Stable Ambulatory Status Ambulatory,Cane Transportation Private Auto Medication Reconcilliation completed & Yes provided to patient/care provider Clinical Summary of Care Provided Yes Assessment/Plan Assessment/Plan (1) Decubitus ulcer: CODE(S): L89.90 - Pressure ulcer of unspecified site, unspecified stage QUALIFIERS: Pressure injury location: buttock Pressure injury stage: stage 2 Laterality: left Qualified Code(s): L89.322 - Pressure ulcer ofleft buttock, stage 2 (2) History of open reduction and internal fixation (ORIF) procedure: CODE(S): Z98.890 - Other specified postprocedural states (3) Debility: CODE(S): R53.81 - Other malaise PLAN: Plan Debridement performed today in clinic as annotated above. At home wound-care instructions: Will have he or his continue to apply Promogran and foam dressing to the ulcer for moderate drainage daily. Keep dressing clean and dry. Encouraged off loading with propping up his hip instead of sitting on the donut cushion and increase protein intake. Off-loading: The patient was instructed to avoid pressure and friction on the affected areas. Reposition every 2 hours at minimum. Avoid prolonged standing and/or dangling of legs. When seated, feet should be elevated at chest level. Frequent ambulation is encouraged. Diet: Patient encouraged to increase protein intake while taking caution to avoid high carbohydrate and/or sugar intake. Labs/cultures/imaging: Follow-up: Return in 3 weeks for wound care follow up. Return sooner or report to the emergency room should symptoms worsen, or new symptoms arise. Note: [employer] SL speech recognition insulator helper software was used to create portions of this document. Sound-alike and misspelled words, as well as other insulator helper errors may be contained in the documentation. 02/06/2333 <Electronically signed by Candice Truong DO> Cosigner Signature (if applicable): CC: ~ Signed [facility] Work Phone: [phone] History and physical note Author Candice Truong [facility] December 26, 2022 2:08pm Note Date/Time December 26, 2022 2:00pm [facility] [address] [place] [id number] H&P Exam - Wound Care 12/26/22 1347 MR#: [id number] Acct: [id number] Name: ELIESER VILLEGAS [place]o Rep #:[id number] : 1935 87 From: Candice Truong DO PCP: Dr. Johnny Shelton, DO Status:REG RCR Location: History of Present Illness Date of Service: 12/26/22 Chief Complaint: Stage 2 pressure ulcer left buttock History of Wound: Elieser is a very pleasant 87 yo gentleman that presents to the wound healing center today for evaluation and treatment of a left buttock ulcer that has been present for many years and comes and goes. He has used many topical treatments including calmoseptine and Aquaphor to the area. He sits on adonut cushion when he is sitting in his recliner which is where he spends the majority of his time during the day. He has lost approx. 40 lbs over the last several years which he attributes to some of the cause of the ulcer as he does not have as much subcutaneous tissue between his skin and his ischium. He does eat well but does not like protein shakes or yogurt. He is otherwise healthy anddoes not have any chronic medical problems. He was referred here by a Rehab facility where he was receiving therapy after a hip fracture and repair. He is doing well and mobility is improving. There has been no wound cultures done on the wound and he is currently not on any antibiotic treatment. He denies drainage but states the the area is painful unless it is covered with a bandage. [facility] Medical History Abnormal results of thyroid function studies Alcohol use Arthritis Back pain Cancer Cholelithiasis Chronic bronchitis Closed intertrochanteric fracture of left femur Former smoker Heartburn History of edema History of SIADH Hydronephrosis Hyponatremia Kidney failure Loss of hearing Low iron Prostate cancer Prostatic cancer Shortness of breath on exertion Wears glasses Wears partial dentures Home Medications acetaminophen 325 mg tablet 650 mg (2 x 325 mg) PO Q6H PRN PRN Pain 1-10 Or Fever >100.7 #0 tabs 11/28/22 [Rx Last Taken Unknown] aspirin 81 mg capsule 81 mg PO BID #28 caps 12/11/22 [Rx Last Taken Unknown] calcium carbonate 500 mg-vitamin D3 10 mcg (400 unit) tablet (Calcium 500 With D) 1 tab PO BID #60 tabs 12/11/22 [Rx Last Taken Unknown] menthol 0.44 %-zinc oxide 20.6 % topical ointment (Calmoseptine) 1 applic topical 4X/DAY Skin protection #113 grams 12/11/22 [Rx Last Taken Unknown] Allergy/AdvReac Type Severity Reaction Status Date / Time No Known Allergies Allergy Verified 11/25/22 05:40 Family History Other Heart disease Surgical History H/O hernia repair History of cystoscopy History of open reduction and internal fixation (ORIF) procedure History of open reduction and internal fixation (ORIF) procedure History of renal stent History of transurethral resection of prostate Hx of cystoscopy Status post appendectomy Social History household members: spouse and other details: 2 stry house. He sleeps downstairs in a recliner. 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 Tobacco: How many years used: 67 how long ago did patient quit smoking: He quit in 2019 alcohol intake: current alcohol intake frequency: holidays/special occasions only substance use type: does not use ROS Constitutional Constitutional: Denies chills, fatigue or fever(s) Eyes Eyes: Denies blurry vision, change in vision or loss of vision ENT HEENT: Denies dysphagia, hearing loss or sore throat Cardiovascular Cardiovascular: Denies chest pain, edema or palpitations Respiratory/Chest Respiratory/Chest: Denies dry cough, dyspnea, dyspnea on exertion, productive cough or wheezing Gastrointestinal Gastrointestinal: Denies diarrhea, nausea or vomiting Genitourinary Genitourinary: Denies dysuria or polyuria Musculoskeletal Musculoskeletal: Denies arthralgias, joint stiffness or muscle weakness Integumentary Integumentary: Reports erythema and wounds Neurologic Neurologic: Denies dizziness, memory loss or weakness Psychiatric Psychiatric: Denies homicidal ideation or suicidal ideation Endocrine Endocrinology: Denies polydipsia, polyphagia or polyuria Hematologic/Lymphatic Hematologic/Lymphatic: Denies easy bleeding or easy bruising Allergic/Immunologic Allergic/Immunologic: Denies throat swelling, tongue swelling or urticaria Vital Signs Vital Signs Vital Signs: 12/26/22 09:29 Temperature 96.4 F L Temperature Source Temporal Pulse Rate 84 Respiratory Rate 18 Blood Pressure 123/64 H Blood Pressure Mean 83 Blood Pressure Source Monitor Blood Pressure Position Semi-Fowlers Blood Pressure Location Left Arm Physical Exam Const alert, oriented x3 and no apparent distress General Appearance: cooperative and comfortable Nutritional Appearance: underweight HEENT normocephalic and head/scalp atraumatic Resp normal respiratory effort Effort and Inspection: able to speak in complete sentences Cardio regular rate and regular rhythm Skin Wounds: wounds noted Wound Narrative: as in clinical panel Psych mental status grossly normal, thought process normal, cooperative and affect normal Debridement Note Debridement Note Wound debrided: left buttock ulcer Laterality: Left Wound Grade/Stage: Stage 2 Type of Debridement: Excisional debridement Anesthesia Used: 4% Lidocaine Solution and 5% Lidocaine Gel Depth: Down to and including healthy tissue and in the subcutaneous layer Percentage of wound debrided: 100 Instrument Used: 3mm curette Tissue Removed: Yellow slough, devitalized tissue Severity: Fat Layer Exposed Amount of bleeding with debridement: Mild Bleeding Controlled with: Compression and gauze Patient tolerated procedure: Patient tolerated procedure well Post-Debridement Measurements and Additional Note: Post-Debridement Measurements/Treatment - Nurse 1 - General Ulcer Assessment Start: 12/26/22 09:29 Freq: Status: Active Protocol: MAGALY Activity Type Activity Date Activity User E-sign Co-sign Detail Recorded Client Recorded Date Recorded By Document 12/26/22 09:29 Desktop 12/26/22 09:35 12/26/22 09:29 - Today's Visit Information Type of service Follow-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 ) Arrival Mode Ambulatory,Cane Transfer Assistance None Patient Identification Verified (Name & Yes ) Patient Requires Transmission-Based No Precautions Vital Signs Temperature (97.8 F-99.1 F) 96.4 F L Temperature Source Temporal Pulse Rate (60-100) 84 Pulse Location Monitor Respiratory Rate (12-18) 18 Respiratory rate source Observation Blood Pressure (90/60-120/80) 123/64 H Blood Pressure Mean 83 Source Monitor Position Semi-Fowlers Blood Pressure Location Left Arm History Since Last Visit- (Skip if this is Patient's initial visit) Have you changed medications since your No last visit? Any new allergies or adverse reactions No Had a fall/change in ADL's that may No increase risk of falls Signs or symptoms of abuse and/or No neglect since last visit Have you been in the hospital since your No last visit? Has dressing in place as prescribed Yes Has compression in place as prescribed No Has offloadiing in place as prescribed No Experienced any changes in pain level or No management Pain Scale: 0-10 Numeric Is Patient Pain Free? No buttocks -Description Burning,Aching -Intensity 7 -Duration (hours) Acute -Pain Behavior Guarding -Pain Aggravating Factors Exercise/ Activity, Sitting -Alleviating Factors/Interventions Medication -Effectiveness of Alleviating Factor/ Minimally Intervention effective Teaching: Wound Center *Welcome to the Wound Center -Person Taught Patient -Teaching Method Discussion, Demonstration -Response to teaching Verbalize understanding WC - Nurse 1 - General Ulcer Measurement Start: 12/26/22 09:29 Freq: Status: Active Protocol: Activity Type Activity Date Activity User E-sign Co-sign Detail Recorded Client Recorded Date Recorded By Document 12/26/22 09:29 RB Desktop 12/26/22 09:35 RB 12/26/22 09:29 Wound Center Nurse 1 2. R buttock -Combined with other wound No -Current Size (cm) - Length 0.1 -Current Size (cm) - Width 0.1 -Current Size (cm) - Depth 0.1 -Total Square Cm 0.01 -Tunneling No -Undermining/Tunneling No -Circular Undermining No -Exudate Amt Medium -Exudate Type Serosanguineous -Wound Margin Distinct, Outline Attached -Granulation Amt Medium (34-66%) -Granulation Quality Council -Slough/Fibrin Yes -Necrosis Amt Medium (34-66%) -Necrotic Tissue Type Adherent Slough -Structure Exposed N/A -Texture (Ela-wound Skin Appearance) Assessed -Moisture (Ela-wound Skin Appearance) Assessed -Color (Ela-wound Skin Appearance) Assessed -Temperature (Ela-wound Skin No Abnormality Appearance) (Pt Warm) -Tenderness on Palpation (Ela-wound No Skin Appearance) -Ulcer Cleansing Wound Cleanser -Foul Odor after Cleansing No -Anesthetic Used 5% Lidocaine Gel 1. L buttock -Combined with other wound No -Current Size (cm) - Length 2.2 -Current Size (cm) - Width 1 -Current Size (cm) - Depth 0.1 -Total Square Cm 2.2 -Photo Taken Yes -Tunneling No -Undermining/Tunneling No -Circular Undermining No -Exudate Amt Medium -Exudate Type Serosanguineous -Wound Margin Distinct, Outline Attached -Granulation Amt Medium (34-66%) -Granulation Quality Council -Slough/Fibrin Yes -Necrosis Amt Medium (34-66%) -Necrotic Tissue Type Adherent Slough -Structure Exposed N/A -Texture (Ela-wound Skin Appearance) Assessed -Moisture (Ela-wound Skin Appearance) Assessed -Color (Ela-wound Skin Appearance) Assessed -Temperature (Ela-wound Skin No Abnormality Appearance) (Pt Warm) -Tenderness on Palpation (Ela-wound No Skin Appearance) -Ulcer Cleansing Wound Cleanser -Foul Odor after Cleansing No -Anesthetic Used 5% Lidocaine Gel WC - Nurse 3 - General Ulcer D/C NN Start: 12/26/22 09:29 Freq: Status: Active Protocol: Activity Type Activity Date Activity User E-sign Co-sign Detail Recorded Client Recorded Date Recorded By Document 12/26/22 12:41 SAWYER [id number] 12/26/22 12:42 SAWYER 12/26/22 12:41 Wound Care Center Nurse 3 2. R buttock -Primary Dressing Applied Mepilex Border, Promogran -Mepilex Border 1 -Promogran 1 1. L buttock -Primary Dressing Applied Mepilex Border -Other Dressing promogran -Mepilex Border 1 Treatment Response Procedure Tolerated Well Pain Scale: 0-10 Numeric Is Patient Pain Free? Yes WC - Visit Discharge Discharge Condition Stable Ambulatory Status Ambulatory Transportation Private Auto Medication Reconcilliation completed & No provided to patient/care provider Clinical Summary of Care Provided Yes Assessment/Plan Assessment/Plan (1) Decubitus ulcer: CODE(S): L89.90 - Pressure ulcer of unspecified site, unspecified stage QUALIFIERS: Pressure injury location: buttock Pressure injury stage: stage 2 Laterality: left Qualified Code(s): L89.322 - Pressure ulcer ofleft buttock, stage 2 (2) History of open reduction and internal fixation (ORIF) procedure: CODE(S): Z98.890 - Other specified postprocedural states (3) Debility: CODE(S): R53.81 - Other malaise PLAN: Plan Debridement performed today in clinic as annotated above. At home wound-care instructions: Will have his apply Promogran and foam dressing to the ulcer for moderate drainage daily. Keep dressing clean and dry. Encouraged off loading with propping up his hip instead of sitting on the donut cushion. Off-loading: The patient was instructed to avoid pressure and friction on the affected areas. Reposition every 2 hours at minimum. Avoid prolonged standing and/or dangling of legs. When seated, feet should be elevated at chest level. Frequent ambulation is encouraged. Diet: Patient encouraged to increase protein intake while taking caution to avoid high carbohydrate and/or sugar intake. Labs/cultures/imaging: Wound culture taken today to evaluate for infection. Follow-up: Return in 1 week for wound care follow up. Return sooner or report tothe emergency room should symptoms worsen, or new symptoms arise. Note: [employer] SL speech recognition insulator helper software was used to create portions of this document. Sound-alike and misspelled words, as well as other insulator helper errors may be contained in the documentation. 12/26/22 1408 <Electronically signed by Candice Truong DO> Cosigner Signature (if applicable): CC: ~ Signed [facility] Work Phone: [phone] Progress note Author Scott Gauthier [facility] December 11, 2022 3:20pm Note Date/Time December 04, 2022 12:02pm [facility] Medical Records Department [address] [place] [address] Progress Note 12/04/22 1200 MR#: [id number] Acct: [id number] Name: ELIESER VILLEGAS Rep #:[id number] : 1935 87 From: Scott Gauthier DO PCP: Dr. Johnny Shelton, Status:ADM IN Location: [place] [address] Subjective Subjective Elieser was seen on team rounds today. His , dtr and son-in-law were present in the room for rounds. Afebrile VSS Maintaining appropriate oxygen saturation on RA Oral intake is good Discussed with nursing - Gets up frequently at night to urinate.......this is chronic. He denies dysuria and he tells me that Dr. Hollingsworth told him there is not anything he can do about this. I offered to try a few different medicationsto help with sleep and to cut down on the nocturia but, he refused and told me that he does not want his JJ stent to get blocked. Reviewed the PT/OT/ST notes Medication list reviewed. Denies cephalgia, lightheadedness, vertigo, shortness of breath at rest, nausea/vomiting/abdominal pain/diarrhea/constipation, dysuria and calf pain. Hehas shortness of of breath with exertion which is chronic and unchanged recently. He also has nocturia which is also chronic and has not changed recently. He tells me that the pain is minimal and Tylenol is working for him. Objective Data Objective Data Vital Signs: Vital Signs Temp Pulse Resp BP Pulse Ox O2 Del Method 97.2 F L 73 16 120/59 L 96 Room Air 12/04/22 07:35 12/04/22 07:35 12/04/22 07:35 12/04/22 07:35 12/04/22 07:35 12/04/22 07:35 Oxygen Delivery Method Room Air Weight: 127 lb 5 oz Body Mass Index (BMI) 18.2 Intake & Output: Intake and Output for Last 24 Hours 12/02/22 12/03/22 12/04/22 23:59 23:59 23:59 Intake Total 720 / 720 790 / 790 460 / 460 Output Total 920 / 920 1800 / 1800 630 / 630 Balance -200 / -200 -1010 / -1010 -170 / -170 Lab / Micro Data 12/09/22 05:19 12/09/22 05:19 Physical Exam Const alert Constitutional Narrative: Grumpy and refusing to do OT other than lifting arm weights. Likes to lay in bed when he is not doing therapy. Resp Resp Narrative: Markedly diminished throughout. Cough is unchanged and chronic. No wheezing and no rales. He is not tachypneic at rest and has no conversational dyspnea atrest. Cardio regular rate, regular rhythm, no murmurs and no gallops GI normal to inspection, nondistended, normoactive bowel sounds, soft to palpation and non-tender Extremity no calf tenderness Skin General Skin Exam: no breakdown Rashes: no rashes Psych Psych Narrative: Not depressed or anxious.......grumpy at times. Assessment & Plan Assessment/Plan (1) Debility: (2) Fracture of right hip: QUALIFIERS: Encounter type: initial encounter Fracture type: closed Qualified Code(s): S72.001A - Fracture of unspecified part of neck of right femur, initial encounter for closed fracture (3) History of open reduction and internal fixation (ORIF) procedure: PLAN: Will follow up with Dr. Holguin. (4) Acute blood loss anemia: PLAN: HGB is stable at [place] from rehab. (5) Vitamin D insufficiency: PLAN: He was started on a calcium and vitamin D supplement....calcium 500 mg andVitamin 400 mg BID with food. (6) Leukopenia: PLAN: Chronic (7) Hyponatremia: PLAN: Stable (8) History of SIADH: (9) Hydronephrosis: QUALIFIERS: Hydronephrosis type: unspecified Qualified Code(s): N13.30 - Unspecified hydronephrosis PLAN: Has a JJ stent and will continue to follow up with Dr. Hollingsworth. (10) Former smoker: PLAN: Quit in 2019. (11) Chronic bronchitis: QUALIFIERS: Chronic bronchitis type: simple Qualified Code(s): J41.0 - Simple chronic bronchitis PLAN: Chronic cough. Uses no inhalers. Sees Dr. Guerrero. Has chronic emphysematous changes, primarily in the upper lobes, on chest CT done this year and has a chronic productive cough. (12) Prostatic cancer: (13) Decubitus ulcer: QUALIFIERS: Pressure injury location: buttock Pressure injury stage: stage 2 Laterality: left Qualified Code(s): L89.322 - Pressure ulcer ofleft buttock, stage 2 PLAN: Has decubitus ulcers on both buttocks. Nursing is using Mepilex and Calmoseptine. PLAN: Plan 1. Continue therapy 2. Continue Mepilex and try to get him out of bed more. Usually is lying on his back. I instructed him to turn from side to side to keep the pressure off the buttocks. 3. Elieser wants to go home as soon as possible but, his family want him to stay to the 15th which is how long Medicare gave him......he does not want to stay but, will defer to his 's wishes. Plan on DC the 15th to home with [facility]. Charges/Coding Visit Charges Inpatient E&M: 17781 Subs Hosp L2 12/11/22 9560 <Electronically signed by Scott Gauthier DO> Scott Gauthier DO Cosigner Signature (if applicable): CC: ~ Signed [facility] Work Phone: 1(123) 298-771309-14-2023 Discharge summary Author Scott Gauthier [facility] December 11, 2022 2:52pm Note Date/Time December 11, 2022 1:59pm [facility] Medical Records Department [address] [place] [address] Instructions for Home/Discharge Instructions 12/11/22 1352 MR#: [id number] Acct: [id number] Name: ELIESER VILLEGAS Rep #:[id number] : 1935 87 From: Scott Gauthier DO PCP: Dr. Johnny Shelton DO Status:ADM IN Discharge Instructions Diet Discharge Diet: - (Regular diet. Please continue to drink Ensure Plus twice a day to promote healing of both the fracture and the ulcer on the left buttock. ) Activity Discharge Activity: May Not Drive, May Shower and Use Walker Weight Bearing Status: Full weight bearing Keep extremity elevated above heart level: Left Leg Dressing / Incision Call your doctor if your incision/area has: Sudden Increased Bleeding, IncreasedPain/ Swelling, Increased Redness, Foul Smelling Discharge and Swelling at the incision site Call your doctor if you observe: Fever of 101 or Higher, Inability to urinate, Shortness of breath, Fainting spells, Chest pain, Increased palpitations (irregular heartbeat), Calf discomfort and Uncontrolled pain Suture Line Care: Avoid Pulling/Pushing and Avoid Pinching/Bending Cleanse incision/area with: Soap & Water Follow Up Care Please Follow Up With: Hitesh Holguin DO When: January 12 at 10 AM. You will also need to follow up with Dr. Shelton on 12/17/22 at 11 AM. Test Results: Test results from this visit will be discussed in further detail at your follow- up appointment, if applicable. Pending Tests Upon Discharge: none Discharge Plan Admission Admit Date/Time: 11/28/22 12:58 Primary Reason for Your Visit: Debiity due to a left hip fracture. Attending Provider: Scott Gauthier Primary Care Provider: Johnny Shelton Instructions Patient Instructions: Adult Immunization Schedule, Caring for Your Incision Additional Instructions / Restrictions: 1. It was good to have you back [place]. You have done well in rehab and I think you will be safe going home. 2. I looked at the recent CT of the chest you had in June of this year and therecent chest XRAY when you came into the hospital. You have some significant chronic lung disease.......your CT scan shows changes consistent with emphysema and your sx with chronic productive cough are consistent with chronic bronchitis. I recommend you consider getting vaccinated for Flu, COVID and RSV (respiratory syncytial virus). These viruses are very dangerous for people withchronic lungs disease and are associated with a lot of pts with COPD from these viruses every year. It would be best to get vaccinated and also to stay away from anyone who is sick with sore throat, cough, congestion and sneezing.......or you could wear a mask when you are out in public. When peoplewere wearing masks during COVID the Flu was almost non-existent. Masks work. 3. Try and get up every hour when you get home and talk a walk in the house........it keeps the stiffness in the hip under control and it is good to move to prevent blood clots. 4. After a hip surgery you are at increased risk for blood clots for 4 weeks after surgery, due to inactivity and lying in bed a lot. you have been getting a shot of Heparin, which is an anticoagulant, twice a day to prevent blood clots. You are now 16 days post op. That means you need to take something to prevent blood clots for another 14 days. I am sending you home on 1 baby aspirin twice a day with food for the next 2 weeks. December 25 will be the last day you need to take the aspirin. Take it with food so it does not upset your stomach. 5. I am sending you home with a small amount of pain medication, just in case, you have some pain after getting home. 6. If you or your family have any questions after leaving rehab please do not hesitate to call me. OFFICE: [phone] CELL: [phone] Discharge Orders/Prescriptions Prescriptions: New calcium carbonate-vitamin D3 [Calcium 500 With D] 500 mg-10 mcg (400 unit) tablet 1 tab PO BID Qty: 60 0RF Rx Instructions: 1 tab twice a day with food to prevent bone loss oxycodone 5 mg tablet 5 mg PO Q6H PRN (Reason: pain) 7 Days Qty: 12 0RF Continued menthol-zinc oxide [Calmoseptine] 0.44-20.6 % Ointment 1 applic topical 4X/DAY Qty: 113 3RF Protocol: *Topical Application Instructions APPLICATION INSTRUCTIONS: apply to buttock Rx Instructions: Apply to affected areas 4 times a day acetaminophen 325 mg Tablet 650 mg PO Q6H PRN PRN (Reason: Pain 1-10 Or Fever >100.7) Qty: 0 0RF Discontinued calcium carbonate 200 mg calcium (500 mg) Tablet,Chewable 500 mg PO TIDCM Qty: 0 0RF heparin (porcine) 5,000 unit/mL Solution 5,000 unit subcut Q12 Qty: 0 0RF sennosides-docusate sodium [Stool Softener-Stimulant Laxat] 8.6-50 mg Tablet 2 tab PO BID Qty: 1 0RF nystatin [Nyamyc] 100,000 unit/gram Powder 1 applic topical TID Qty: 0 0RF Protocol: *Topical Application Instructions APPLICATION INSTRUCTIONS: GROIN oxycodone 5 mg Tablet 10 mg PO Q4H PRN PRN (Reason: Pain Score 4-10) Qty: 0 0RF Referrals / Follow Up: Johnny Shelton DO [Primary Care Provider] - 12/17/22 11:00 am Hitesh Holguin DO [Med Staff - Active Staff] - 01/12/23 10:00 am Disposition Disposition (needs filled in before D/C Order can be placed): Home Health Service 12/11/22 1452<Electronically signed by Scott Gauthier DO>Scott Gauthier DO CC: Dr. Johnny Shelton, ; Dr. Hitesh Holguin DO ~ Signed [facility] Work Phone: 1([phone]) 284-261309-14-2023 Progress note Author [facility] December 11, 2022 1:52pm Note Date/Time December 09, 2022 5:47pm [facility] Medical Records Department [address] [place] [address] Progress Note 12/09/22 1745 MR#: [id number] Acct: [id number] Name: ELIESER VILLEGAS Rep #:[id number] : 1935 87 From: Scott Gauthier DO PCP: Dr. Johnny Shelton DO Status:ADM IN Location: [place] [address] Subjective Subjective Afebrile VSS Maintaining appropriate oxygen saturation on RA Oral intake is good Discussed with nursing - no problems that need addressed Reviewed the PT/OT notes Medication list reviewed. All lab drawn this morning was personally reviewed. White blood cell count is low at 4.3 and the hemoglobin is 9.7 which is stable. Platelets are normal at 282,000 today. Sodium is mildly decreased at 134 but is stable. Potassium is 4.7 and the BUN is 28 with a creatinine of 0.8. Ed has no complaints today. He denies chest pain, lightheadedness, palpitations, nausea/vomiting/abdominal pain, calf pain and dysuria. He has not taken anything for pain since 12/05/2022. He has a stage II decubitus on the left buttock but denies pain in the area. Objective Data Objective Data Vital Signs: Vital Signs Temp Pulse Resp BP Pulse Ox O2 Del Method 98.2 F 74 16 124/58 H 94 Room Air 12/09/22 15:54 12/09/22 15:54 12/09/22 15:54 12/09/22 15:54 12/09/22 15:54 12/09/22 15:54 Oxygen Delivery Method Room Air Weight: 126 lb 15.78 oz Body Mass Index (BMI) 18.1 Intake & Output: Intake and Output for Last 24 Hours 12/07/22 12/08/22 12/09/22 23:59 23:59 23:59 Intake Total 1645 / 1645 1790 / 1790 680 / 680 Output Total 550 / 550 600 / 600 700 / 700 Balance 1095 / 1095 1190 / 1190 -20 / -20 Lab / Micro Data 12/09/22 05:19 12/09/22 05:19 Labs: Laboratory Results - last 24 hr 12/09/22 05:19: WBC 4.3 L, RBC 3.13 L, Hgb 9.7 L, Hct 30.8 L, MCV 98.4 H, MCH 31.0, MCHC 31.5 L, RDW Std Deviation 52.2 H, RDW Coeff of Michael 14.6, Plt Count 282, MPV 8.7, Sodium 134 L, Potassium 4.7, Chloride 100, Carbon Dioxide 30.0, Anion Gap 4 L, BUN 28 H, Creatinine 0.80, Estim Creat Clear Calc 53.00, Est GFR (MDRD) Af Amer 117, Est GFR (MDRD) Non-Af 97, BUN/Creatinine Ratio 34.9 H, Glucose 98, Calcium 8.4 L Radiography Diagnostic Testing: Radiology Impression Hip/Pelvis X-Ray 12/09/22 09:24 IMPRESSION: ORIF of right proximal femur with no complicating features. Electronically Signed: Ahmet Ardon MD at 14:54 EDT Reading Location ID and State: [address] [place] [address] , Service support , Physical Exam Const alert, oriented x3 and no apparent distress Resp normal respiratory effort, no use of accessory muscles and clear to auscultationbilaterally Resp Narrative: RR increases with exertion. Effort and Inspection: able to speak in complete sentences Auscultation: diminished lung sounds diffuse Cardio regular rate, regular rhythm, no murmurs and no gallops GI normal to inspection, nondistended, normoactive bowel sounds, soft to palpation and non-tender GI Narrative: No guarding with palpation Extremity no clubbing, cyanosis or edema and no calf tenderness Extremity Narrative: No ankle edema but, he does have edema in the Left posterior upper thigh and behind the knee. No calf pain. Skin General Skin Exam: no breakdown Rashes: no rashes Wound Narrative: the decubitus ulcer on the R buttock is healed. The stage 2 on the left buttockdoes not have any erythema around the wound and there is no DC or swelling around the area. I once again told him he needs to keep the Mepilex on and quittaking it off to Air/dry out. Psych Psych Narrative: Appropriate, making good eye contact. Able to stay on topic and focus. No flight of ideas. Does not appear anxious or depressed. Conversant and relating well to staff. Assessment & Plan Assessment/Plan (1) Debility: (2) Fracture of right hip: QUALIFIERS: Encounter type: initial encounter Fracture type: closed Qualified Code(s): S72.001A - Fracture of unspecified part of neck of right femur, initial encounter for closed fracture (3) History of open reduction and internal fixation (ORIF) procedure: (4) Acute blood loss anemia: (5) Vitamin D insufficiency: (6) Leukopenia: PLAN: Chronic (7) Hyponatremia: PLAN: Stable (8) History of SIADH: (9) Hydronephrosis: QUALIFIERS: Hydronephrosis type: unspecified Qualified Code(s): N13.30 - Unspecified hydronephrosis PLAN: Has a JJ stent (10) Former smoker: (11) Chronic bronchitis: QUALIFIERS: Chronic bronchitis type: simple Qualified Code(s): J41.0 - Simple chronic bronchitis PLAN: Chronic cough. Use no inhalers. sees Dr. Guerrero. Has chronic emphysematous changes, primarily in the upper lobes, on chest CT done this year. (12) Prostatic cancer: (13) Decubitus ulcer: QUALIFIERS: Pressure injury location: buttock Pressure injury stage: stage 2 Laterality: left Qualified Code(s): L89.322 - Pressure ulcer ofleft buttock, stage 2 PLAN: Plan 1. Continue therapy 2. Continue Mepilex and have the patient turn side to side every 1-2 hours during the day to decrease the pressure on his buttocks. 3. Plan discharge on 12/12/2022 Home with home health care. Charges/Coding Visit Charges Inpatient E&M: 42056 Subs Hosp L2 12/11/22 1352 <Electronically signed by Scott Gauthier DO> Scott Gauthier DO Cosigner Signature (if applicable): CC: ~ Signed [facility] Work Phone: [phone]) 787-824509-14-2023 Progress note Author [facility] December 11, 2022 12:36pm Note Date/Time December 11, 2022 10:18am [facility] Medical Records Department [address] [place] [address] Progress Note 12/11/22 1013 MR#: [id number] Acct: [id number] Name: ELIESER VILLEGAS Rep #:[id number] : 1935 87 From: Scott Gauthier DO PCP: Dr. Johnny Shelton, DO Status:ADM IN Location: [address] Subjective Subjective Elieser was seen on team rounds today. His , daughter and son-in-law are present in the room. All questions were answered to their satisfaction. Afebrile VSS Maintaining appropriate oxygen saturation on RA Oral intake is good Discussed with nursing - the decub on the Left buttock is not healing per nursing. He insists on taking the Mepilex off to air it out. I explained what the Mepilex does to cut down friction and it helps to keep the area moist so that epithelialization can occur. It will not heal if it is dried out. Reviewed the PT/OT notes Medication list reviewed. Has not had any Tylenol since 12/05/2022 and has not taken any oxycodone since arrival on rehab. Denies pain, CP, SOB, palpitations, dysuria and calf pain. He has a chronic cough and there has been no change in his cough. I asked him about vaccines andhe told me he last had a flu shot a few years ago. He has hyperinflation on the CXR and also has scarring and atelectasis in the R mid lung.......possibly from PNA he had a few years ago. CT chest in june BS's are very diminished, suman in the bases. Has never had PFT's at [facility]. CT chest done in June of this year showed emphysematous changes suman in the upper lobes. He has a stable 1.8X1.1 cm nodule in the posterior medial segment of the KKK. There was a stable mildly enlarged pretracheal lymph node measuring 2X1.1 cm. 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 He sees Dr. Guerrero. He denies pain in the hip. He also denies pain in the left buttock. No CP and no SOB at rest. He gets SOB with exertion and this limits he is able to ambulate. He tells me that he feels ready to go home. Objective Data Objective Data Vital Signs: Vital Signs Temp Pulse Resp BP Pulse Ox O2 Del Method 97.3 F L 73 16 114/60 94 Room Air 12/11/22 07:31 12/11/22 07:31 12/11/22 07:31 12/11/22 07:31 12/11/22 07:31 12/11/22 07:31 Oxygen Delivery Method Room Air Weight: 126 lb 15.78 oz Body Mass Index (BMI) 18.1 Intake & Output: Intake and Output for Last 24 Hours 12/09/22 12/10/22 12/11/22 23:59 23:59 23:59 Intake Total 1200 / 1200 1140 / 1140 490 / 490 Output Total 1100 / 1200 1385 / 1385 350 / 350 Balance 100 / 0 -245 / -245 140 / 140 Lab / Micro Data 12/09/22 05:19 12/09/22 05:19 Physical Exam Const alert and no apparent distress Constitutional Narrative: He is cooperative when he wants to be but, sometimes he just says he is not doing anymore therapy and the therapists have to try and talk him into it. General Appearance: cooperative HEENT moist oral mucous membranes Eyes EOMs intact bilaterally, conjunctivae normal and no scleral icterus Eyes Narrative: wears glasses General Eye: normal appearance of both eyes Neck no lymphadenopathy, supple, no JVD and no carotid bruits General: trachea midline Chest Chest: symmetrical chest wall rise Resp normal respiratory effort and clear to auscultation bilaterally Resp Narrative: RR increases with exertion. Effort and Inspection: Negative for tachypneic, respiratory distress or labored Auscultation: diminished lung sounds diffuse Cardio regular rate, regular rhythm and no gallops GI normal to inspection, nondistended, normoactive bowel sounds, soft to palpation and non-tender GI Narrative: No guarding with palpation Extremity no clubbing, cyanosis or edema and no calf tenderness Extremity Narrative: No ankle edema but, he does have edema in the Left posterior upper thigh and behind the knee. No calf pain. General Extremity: Negative for cyanosis Skin Skin Narrative: No rashes, no skin breakdown. General Skin Exam: no breakdown Rashes: no rashes Wound Narrative: the decubitus ulcer on the R buttock is healed. The stage 2 on the left buttockdoes not have any erythema around the wound and there is no DC or swelling around the area. I once again told him he needs to keep the Mepilex on and quittaking it off to Air/dry out. Neuro oriented x3, CN's II-XII intact bilaterally and no focal motor deficits Motor Exam: strength 5/5 throughout Psych affect normal Psych Narrative: Appropriate, making good eye contact. Able to stay on topic and focus. No flight of ideas. Does not appear anxious or depressed. Conversant and relating well to staff. Assessment & Plan Assessment/Plan (1) Debility: (2) Fracture of right hip: QUALIFIERS: Encounter type: initial encounter Fracture type: closed Qualified Code(s): S72.001A - Fracture of unspecified part of neck of right femur, initial encounter for closed fracture (3) History of open reduction and internal fixation (ORIF) procedure: (4) Acute blood loss anemia: (5) Vitamin D insufficiency: (6) Leukopenia: (7) Hyponatremia: (8) History of SIADH: (9) Hydronephrosis: QUALIFIERS: Hydronephrosis type: unspecified Qualified Code(s): N13.30 - Unspecified hydronephrosis (10) Former smoker: (11) Chronic bronchitis: QUALIFIERS: Chronic bronchitis type: simple Qualified Code(s): J41.0 - Simple chronic bronchitis (12) Prostatic cancer: (13) Decubitus ulcer: QUALIFIERS: Pressure injury location: buttock Pressure injury stage: stage 2 Laterality: left Qualified Code(s): L89.322 - Pressure ulcer ofleft buttock, stage 2 PLAN: Plan 1. Plan DC home tomorrow with C. I asked the SW to have wound care follow upwith him at home to make sure the decub on the left buttock is healing. He is very susceptible to decubitus ulcers because he spends a large part of the day in bed and he has muscle atrophy and not much subcutaneous padding in the buttocks. I am going to recommend that he continue the Ensure Plus BID post DC. 2. Since he has significant lung disease I recommended to him that he consider vaccines for RSV, influenza and COVID this fall. He will discuss with PCP and/or Dr. Guerrero. Charges/Coding Visit Charges Inpatient E&M: 12337 Subs Hosp L2 12/11/22 1236 <Electronically signed by Scott Gauthier DO> Scott Gauthier DO Cosigner Signature (if applicable): CC: ~ Signed [facility] Work Phone: 1(487) 513-630709-12-2023 Progress note Author Scott [facility]ambrocio [facility] December 09, 2022 5:45pm Note Date/Time December 08, 2022 5:26pm [facility] Medical Records Department [address] [place] [address] Progress Note 12/08/22 1724 MR#: [id number] Acct: [id number] Name: ELIESER VILLEGAS Rep #:[id number] : 1935 87 From: Scott Gauthier DO PCP: Dr. Johnny Shelton, DO Status:ADM IN Location: [facility]1 Subjective Subjective Afebrile VSS Maintaining appropriate oxygen saturation on RA Oral intake is good Discussed with nursing - no problems that need addressed Reviewed the PT/OT/ST notes Medication list reviewed. No complaints today. Rarely takes anything for pain. He is sleeping as well ascan be expected with nocturia 4-[address] Hollingsworth told him there is nothing to do about this. He tells me 4-5 times a night but, there are only 2 urine ouptputs recorded last night from 10 PM to 8AM today. Denies dysuria. Denies hematuria Elieser denies lightheadedness, chest pain, shortness of breath at rest, palpitations, nausea/vomiting, dysuria and calf pain. Sutures are supposed to come out tomorrow. Objective Data Objective Data Vital Signs: Vital Signs Temp Pulse Resp BP Pulse Ox O2 Del Method 96.6 F L 74 16 125/62 H 98 Room Air 12/08/22 07:50 12/08/22 07:50 12/08/22 07:50 12/08/22 07:50 12/08/22 07:50 12/08/22 07:50 Oxygen Delivery Method Room Air Weight: 126 lb 15.78 oz Body Mass Index (BMI) 18.1 Intake & Output: Intake and Output for Last 24 Hours 12/06/22 12/07/22 12/08/22 23:59 23:59 23:59 Intake Total 1525 / 1525 1645 / 1645 700 / 700 Output Total 455 / 455 550 / 550 350 / 350 Balance 1070 / 1070 1095 / 1095 350 / 350 Lab / Micro Data 12/09/22 05:19 12/09/22 05:19 Physical Exam Const alert and no apparent distress Constitutional Narrative: He is cooperative when he wants to be but, sometimes he just says he is not doing anymore therapy and the therapists have to try and talk him into it. General Appearance: cooperative HEENT moist oral mucous membranes Resp normal respiratory effort, no use of accessory muscles and clear to auscultationbilaterally Resp Narrative: Not tachypneic and no conversational dyspnea. Diminished in the bases. Effort and Inspection: able to speak in complete sentences Cardio regular rate, regular rhythm, no murmurs, no rub and no gallops GI normal to inspection, nondistended, normoactive bowel sounds and non-tender GI Narrative: No guarding with palpation. Extremity no calf tenderness General Extremity: Negative for edema Skin Skin Narrative: No rashes, no skin breakdown. Psych affect normal Psych Narrative: Appropriate, making good eye contact. Able to stay on topic and focus. No flight of ideas. Does not appear anxious or depressed. Conversant and relating well to staff. Assessment & Plan Assessment/Plan (1) Debility: (2) Fracture of right hip: QUALIFIERS: Encounter type: initial encounter Fracture type: closed Qualified Code(s): S72.001A - Fracture of unspecified part of neck of right femur, initial encounter for closed fracture (3) History of open reduction and internal fixation (ORIF) procedure: (4) Acute blood loss anemia: (5) Vitamin D insufficiency: (6) Leukopenia: (7) Hyponatremia: (8) History of SIADH: (9) Hydronephrosis: QUALIFIERS: Hydronephrosis type: unspecified Qualified Code(s): N13.30 - Unspecified hydronephrosis (10) Former smoker: (11) Chronic bronchitis: QUALIFIERS: Chronic bronchitis type: simple Qualified Code(s): J41.0 - Simple chronic bronchitis (12) Prostatic cancer: PLAN: Plan 1. Continue therapy 2. Check a CBC and a BMP in the a.m. Charges/Coding Visit Charges Inpatient E&M: 80215 Subs Hosp L2 12/09/22 1745 <Electronically signed by Scott Guathier DO> Scott Gauthier DO Cosigner Signature (if applicable): CC: ~ Signed [facility] Work Phone: 1(953) 788-773109-12-2023 Progress note Author Hitesh Holguin [facility] December 09, 2022 5:01pm Note Date/Time December 09, 2022 5:02pm [facility] Medical Records Department [address] [place] [address] Progress Note - Orthopedic 12/09/22 165 MR#: [id number] Acct: [id number] Name: ELIESER VILLEGAS Rep #:[id number] : 1935 87 From: Hitesh stevens DO PCP: Dr. Johnny Shelton DO Status:ADM IN Location: [place] [address] Subjective Subjective Patient seen and examined. He reports some soreness in his right hip but stateshis pain is well controlled. He denies any fevers, chills, nausea vomiting, chest pain or shortness of breath. He states he has been walking with physical therapy with the assistance of a walker. Objective Data Objective Data Vital Signs: Vital Signs Temp Pulse Resp BP Pulse Ox O2 Del Method 98.2 F 74 16 124/58 H 94 Room Air 12/09/22 15:54 12/09/22 15:54 12/09/22 15:54 12/09/22 15:54 12/09/22 15:54 12/09/22 15:54 Oxygen Delivery Method Room Air Weight: 126 lb 15.78 oz Body Mass Index (BMI) 18.1 Intake & Output: Intake and Output for Last 24 Hours 12/07/22 12/08/22 12/09/22 23:59 23:59 23:59 Intake Total 1645 / 1645 1790 / 1790 680 / 680 Output Total 550 / 550 600 / 600 600 / 600 Balance 1095 / 1095 1190 / 1190 80 / 80 Lab / Micro Data 12/09/22 05:19 12/09/22 05:19 Labs: Laboratory Results - last 24 hr 12/09/22 05:19: WBC 4.3 L, RBC 3.13 L, Hgb 9.7 L, Hct 30.8 L, MCV 98.4 H, MCH 31.0, MCHC 31.5 L, RDW Std Deviation 52.2 H, RDW Coeff of Michael 14.6, Plt Count 282, MPV 8.7, Sodium 134 L, Potassium 4.7, Chloride 100, Carbon Dioxide 30.0, Anion Gap 4 L, BUN 28 H, Creatinine 0.80, Estim Creat Clear Calc 53.00, Est GFR (MDRD) Af Amer 117, Est GFR (MDRD) Non-Af 97, BUN/Creatinine Ratio 34.9 H, Glucose 98, Calcium 8.4 L Radiography Diagnostic Testing: Radiology Impression Hip/Pelvis X-Ray 12/09/22 09:24 IMPRESSION: ORIF of right proximal femur with no complicating features. Electronically Signed: Ahmet Ardon MD at 14:54 EDT , Physical Exam Narrative General - A&Ox3, NAD. VSS/AF Right lower extremity -lateral hip and thigh incisions are well approximated with migue. No erythema or drainage. No pain with logroll of right hip. SILT Sural, Saphenous, SPN, DPN, Tibial N. distributions. DP, PT 2+. BCR. DF, PF, EHL5/5. No calf TTP. Assessment & Plan Assessment/Plan (1) History of open reduction and internal fixation (ORIF) procedure: PLAN: Patient doing well 2 weeks status post right femur CMN -Continue weightbearing as tolerated right lower extremity -Staple removal today -X-rays reviewed from today 12/09/2022 demonstrate maintained alignment of the right hip fracture without evidence of screw cut out. No interval healing is noted as expected. -Continue to mobilize with PT/OT -Defer to primary team regarding when safe for discharge home -Plan to follow-up with me in the outpatient setting in 1 month with x-rays uponarrival -Okay for shower and leave incisions open to air. No tub soaks until 6 weeks postoperatively. -Please not hesitate to call if any questions or concerns arise. 12/09/22 1701 <Electronically signed by Hitesh Holguin DO> Cosigner Signature (if applicable): CC: ~ Signed [facility] Work Phone: 1(531) 837-405809-11-2023 Progress note Author Scott Gauthier [facility] December 08, 2022 5:24pm Note Date/Time December 08, 2022 5:24pm [facility] Medical Records Department [address] [place] [address] Progress Note 12/03/22 1447 MR#: [id number] Acct: [id number] Name: ELIESER VILLEGAS Polo Rep #:[id number] : 1935 87 From: Scott Gauthier DO PCP: Dr. Johnny Shelton, DO Status:ADM IN Location: [place] [address] Subjective Subjective Elieser was seen on team rounds today. His and other family were present in the room. AF VSS maintaining appropriate O2 sat on RA He takes Tylenol for pain but, he is not taking anything else and tells me that his pain is minimal. He denies chest pain, shortness of breath, cough, palpitations, lightheadedness, nausea/vomiting, dysuria and calf tenderness. Tells me he feels pretty good and he is ready to go home. He told the nursing staff that he wants to go home tomorrow. Objective Data Objective Data Vital Signs: Vital Signs Temp Pulse Resp BP Pulse Ox O2 Del Method 96.4 F L 77 18 118/60 96 Room Air 12/03/22 07:17 12/03/22 07:17 12/03/22 07:17 12/03/22 07:17 12/03/22 07:17 12/03/22 07:17 Oxygen Delivery Method Room Air Weight: 127 lb 5 oz Body Mass Index (BMI) 18.2 Intake & Output: Intake and Output for Last 24 Hours 12/01/22 12/02/22 12/03/22 23:59 23:59 23:59 Intake Total 960 / 960 720 / 720 250 / 250 Output Total 450 / 450 920 / 920 900 / 900 Balance 510 / 510 -200 / -200 -650 / -650 Lab / Micro Data 11/29/22 05:52 11/29/22 05:52 Physical Exam Const alert, oriented x3 and no apparent distress General Appearance: cooperative and comfortable HEENT moist oral mucous membranes Resp normal respiratory effort, no use of accessory muscles and clear to auscultationbilaterally Resp Narrative: Not tachypneic and no conversational dyspnea. Diminished in the bases. Effort and Inspection: able to speak in complete sentences Cardio regular rate, regular rhythm, no murmurs, no rub and no gallops GI normal to inspection, nondistended, normoactive bowel sounds and non-tender GI Narrative: No guarding with palpation. Extremity no clubbing, cyanosis or edema and no calf tenderness General Extremity: Negative for edema Skin Skin Narrative: No rashes, no skin breakdown. Psych affect normal Psych Narrative: Appropriate, making good eye contact. Able to stay on topic and focus. No flight of ideas. Does not appear anxious or depressed. Conversant and relating well to staff. Assessment & Plan Assessment/Plan (1) Debility: (2) Fracture of right hip: QUALIFIERS: Encounter type: initial encounter Fracture type: closed Qualified Code(s): S72.001A - Fracture of unspecified part of neck of right femur, initial encounter for closed fracture (3) History of open reduction and internal fixation (ORIF) procedure: (4) Acute blood loss anemia: (5) Vitamin D insufficiency: (6) Leukopenia: (7) Hyponatremia: (8) History of SIADH: (9) Hydronephrosis: QUALIFIERS: Hydronephrosis type: unspecified Qualified Code(s): N13.30 - Unspecified hydronephrosis (10) Former smoker: (11) Chronic bronchitis: QUALIFIERS: Chronic bronchitis type: simple Qualified Code(s): J41.0 - Simple chronic bronchitis (12) Prostatic cancer: PLAN: Plan 1. Continue therapy 2. Elieser's thinks that he should stay until the DC date given by Medicare which is next Thursday. He tells me he will do what his thinks is best and he is agreeable to staying. Charges/Coding Visit Charges Inpatient E&M: 44662 Subs Hosp L2 12/08/22 1724 <Electronically signed by Scott Gauthier DO> Scott Gauthier DO Cosigner Signature (if applicable): CC: ~ Signed [facility] Work Phone: 1(728) 609-513909-05-2023 History and physical note [facility] December 02, 2022 3:59pm Note Date/Time November 29, 2022 5:34pm [facility] Medical Records Department [address] [place] [address] Post Admission Physician Jack 11/29/22 1733 MR#: [id number] Acct: [id number] Name: ELIESER VILLEGAS Polo Rep #:[id number] : 1935 87 From: Scott Gauthier DO PCP: Dr. Johnny Shelton, DO Status:ADM IN Location: [place] [address] Admission Information Primary Diagnosis:: Debility secondary to a fall resulting in a right hip fracture/ORIF Status Changes from Prescreening?: No changes Identified Actual Problem List:: Skin Intergrity, Pain, ALteration in Cmfrt, Bowel, Constipation, Alteration in Sleep, Mobility Impaired and Self Care Deficit Potential Problem List:: DVT, Bleeding, Infection, UTI, Aspiration, Falls, Skin Integrity and Depression Risk of Complications DVT: LMWH and TORIN Hose Bleeding: Monitor Lab Values, Nursing to Teach Precautions for anti-coagulation therapy., Wound, if applicable, to be assessed every shift. and Stroke patients assessed for lethargy or change in status. Infection: Clinical Staff to Monitor for S/S of infection: and S/S of infection include fever, redness, warmth, etc. Urinary Tract Infection: Monitor for frequency, burning, discomfort, or incontinence. and Nursing will obtain urine sample for urinalysis and C&S when ordered. Aspiration: Clinical staff will monitor for coughing, drooling, congestion., Speech will evaluate swallowing and dsyphasia. and Nursing will monitor patient swallowing during meals. Falls: Patient will be evaluated for Fall Precautions and Patient will be placedon Fall Precautions as indicated per protocol. Skin Breakdown: Nursing will assess skin daily using assessment tool. and Nursing will place on Skin Breakdown Precautions as indicated. Pain: Clinical staff will assess patient's pain level per protocol., Medicationswill be given, if needed, and the pain level reassessed. and Other methods: Massage, distraction, decrease stimulus, etc. used PRN. Plan of Care Patient requires physician specializing in physical medicine and rehab oversightto provide close medical supervision of rehab issues including: Pain Management,Sleep Problems, Bowel and Bladder, Medical and co-morbidity Management, DVT prophylaxis, Rehabilitation Leadership and Coordination of treatment team Patient needs Physical Therapy: For a minimum of 1 hour and At least 5 out of 7 days Patient needs Physical Therapy to improve:: Mobility, Strengthening, Transfers, Stretching, ROM, Endurance, Stairs, Gait and Balance Patient needs Occupational Therapy: For a minimum of 1 hour and At least 5 out of 7 days Patient needs Occupational Therapy to improve ADL's incl.: Eating, Grooming, Bathing, Dressing, Toileting, Toilet transfers, Community Reintegration, Higher functioning activities, Household tasks, Adaptive Equipment, Splinting and Otheractivities as determined Patient requires 24/7 Rehabilitation Nursing for: Pain Issues, Identifying and preventing risk factors, Monitoring and reporting current medical conditions, Assisting with ambulation, transfer, and all ADL's, Teaching patients about disease process and medications, Family teaching, Providing safe environment, Bowel and Bladder Issues, Skin integrity and Medication Management Patient needs Barrel Lathe Operator Outside/ Case Management for: Discharge Planning, Arranging Home Equipment or Services and Family Interventions Patient needs Dietary and Nutrition Services for: Adequate Nutrition, Nutritional Supplements and Nutritional Education Goals Patient will remain: free from falls and or injury at time of discharge. Patient will perform bed mobility at: MOD I level of assist. Patient will complete transfers from bed to chair at: MOD I level of assist. Patient will ambulate: 100 feet and with LRD Patient will complete upper body dressing at: MOD I level of assist. Patient will complete lower body dressing at: MOD I level of assist. Patient will complete toileting at: MOD I level of assist. Patient will perform bathing at: MOD I level of assist. Patient will complete grooming at: MOD I level of assist. Patient will complete home management skills at: MOD I level of assist. Patient will achieve: - (1 curb step and 3 steps with 1 handrail and a straight cane to allow access to his home.) Patient will have pain level of: of 3 or less Patient's skin will: remain intact Patient will receive: adequate nutrition. Discharge Planning Pt Prognosis for Sig. Practical Improv. w/in Reasonable Time: Good Estimated Length of stay (days): 14 Was Preadmission Assessment Accurate?: Yes 12/02/22 4619 <Electronically signed by Scott Gauthier DO> Cosigner Signature (if applicable): CC: ~ Signed [facility] Work Phone: 1(138) 507-792409-05-2023 Progress note Author [facility] December 02, 2022 3:51pm Note Date/Time December 02, 2022 3:51pm [facility] Medical Records Department [address] [place] [address] Progress Note 12/02/22 1543 MR#: [id number] Acct: [id number] Name: NELLYELIESER Cuellar Rep #:[id number] : 1935 87 From: Scott Gauthier DO PCP: Dr. Johnny Shelton, DO Status:ADM IN Location: [place] [address] Subjective Subjective Afebrile VSS Maintaining appropriate oxygen saturation on RA Oral intake is good Discussed with nursing - no problems that need addressed Reviewed the PT/OT notes Medication list reviewed. Has refused to do ADL with OT so OT is doing strengthening exercises with the UE's and walking. He complains that he is not sleeping well at night.....the bed is uncomfortable. He does not want a sleep aid prescribed. Gets up multiple times a night to urinate and he is used to it. Tells me that the Amytriptyline is not helping. Does not want to try anything else because he wants to keep everything flowing because of the ureteral stent. If he changeshis mind we could try a dose of Desmopressin at Bedtime. Elieser denies cough, lightheadedness, shortness of breath, chest pain, nausea/vomiting, constipation,calf pain and dysuria. He has not taken any oxycodone since arriving on rehab. Objective Data Objective Data Vital Signs: Vital Signs Temp Pulse Resp BP Pulse Ox O2 Del Method 96.9 F L 83 16 111/51 L 95 Room Air 12/02/22 07:43 12/02/22 07:43 12/02/22 07:43 12/02/22 07:43 12/02/22 07:43 12/02/22 07:43 Oxygen Delivery Method Room Air Weight: 127 lb 5 oz Body Mass Index (BMI) 18.2 Intake & Output: Intake and Output for Last 24 Hours 11/30/22 12/01/22 12/02/22 23:59 23:59 23:59 Intake Total 300 / 300 960 / 960 300 / 300 Output Total 1175 / 1175 450 / 450 620 / 620 Balance -875 / -875 510 / 510 -320 / -320 Lab / Micro Data 11/29/22 05:52 11/29/22 05:52 Physical Exam Const alert, oriented x3 and no apparent distress General Appearance: cooperative and well kempt HEENT moist oral mucous membranes Chest Chest: symmetrical chest wall rise Resp clear to auscultation bilaterally Resp Narrative: Not tachypneic and no conversational dyspnea. Diminished in the bases. Effort and Inspection: able to speak in complete sentences Cardio regular rate, regular rhythm, S1 normal heart sound, S2 normal heart sound, no murmurs, no rub and no gallops GI normal to inspection, nondistended, normoactive bowel sounds and non-tender GI Narrative: No guarding with palpation. Skin Skin Narrative: No rashes, no skin breakdown. General Skin Exam: no breakdown Rashes: no rashes Psych affect normal Assessment & Plan Assessment/Plan (1) Debility: (2) Fracture of right hip: QUALIFIERS: Encounter type: initial encounter Fracture type: closed Qualified Code(s): S72.001A - Fracture of unspecified part of neck of right femur, initial encounter for closed fracture (3) History of open reduction and internal fixation (ORIF) procedure: (4) Acute blood loss anemia: (5) Vitamin D insufficiency: (6) Leukopenia: (7) Hyponatremia: (8) History of SIADH: (9) Hydronephrosis: QUALIFIERS: Hydronephrosis type: unspecified Qualified Code(s): N13.30 - Unspecified hydronephrosis (10) Former smoker: (11) Chronic bronchitis: QUALIFIERS: Chronic bronchitis type: simple Qualified Code(s): J41.0 - Simple chronic bronchitis (12) Prostatic cancer: PLAN: Plan 1. Continue therapy 2. DC Elavil since it is not decreasing the nocturia Charges/Coding Visit Charges Inpatient E&M: 47206 Subs Hosp L2 12/02/22 1551 <Electronically signed by Scott Gauthier DO> Scott Gauthier DO Cosigner Signature (if applicable): CC: ~ Signed [facility] Work Phone: 1(854) 335-521109-02-2023 History and physical note [facility] November 29, 2022 5:33pm Note Date/Time November 29, 2022 1:21pm [facility] Medical Records Department [address] [place] [address] History & Physical Exam 11/29/22 1312 MR#: [id number] Acct: [id number] Name: ELIESER VILLEGAS Rep #:[id number] : 1935 87 From: Scott Gauthier DO PCP: Dr. Johnny Shelton, DO Status:ADM IN Location: [id number] HPI - General General Date of Admission: 11/28/22 Date of Service: 11/29/22 Chief Complaint: Debility secondary to right hip fracture/ORIF HPI Narrative ELIESER VILLEGAS, is a 87 YO M well known to me from an admission to rehab in August of 2021 for Left hip fracture. 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 Hollingsworth in the past (the stent was changed in September of 2021 and again in September 2022). Elieser presented to the emergency department at [facility] on 11/25/2022 after a fall at home. X-rays revealed a right intertrochanteric fracture of the right femur. He was admitted to the hospitalist service and Dr. Holguin was consulted. He was taken to the OR by Dr. Holguin on 11/25/2022 for placement of an intramedullary nail in the right femur. Postoperatively the hemoglobin was 10.4, down from 14.8 at admission. Postoperatively he was seen by PT/OT and therecommendation was made for acute inpatient rehab following discharge. He was admitted to the acute inpatient rehab unit at [facility] on 11/28/2022 for 3 hours of therapy daily to restore function/independence at or near his level prior to his most recent fall. All lab from today was personally reviewed. White blood cell count today is 4.0which is low. Hemoglobin is stable at 8.9 and platelets are within normal limits. They had been mildly decreased the past few days. Sodium is low at 133which is chronic and the potassium is 4.5. The BUN is 24 with a creatinine of 0.77 which is within his baseline. Potassium and magnesium are within normal limits. Calcium corrected for hypoalbuminemia is within normal limits. A recent vitamin D level is low at 23.5. [facility] Medical History (Updated 11/29/22 @ 17:[address] Scott Gauthier, ) Abnormal results of thyroid function studies Alcohol use Arthritis Back pain Cancer Cholelithiasis Chronic bronchitis Closed intertrochanteric fracture of left femur Former smoker Heartburn History of edema History of SIADH Hydronephrosis Kidney failure Loss of hearing Low iron Prostate cancer Prostatic cancer Shortness of breath on exertion Wears glasses Wears partial dentures Home Medications acetaminophen 325 mg tablet 650 mg (2 x 325 mg) PO Q6H PRN PRN Pain 1-10 Or Fever >100.7 #0 tabs 11/28/22 [Rx Last Taken Unknown] calcium carbonate 200 mg calcium (500 mg) chewable tablet 500 mg (2.5 x 200 mg calcium (500 mg)) PO TIDCM Supplement #0 tabs 11/28/22 [Rx Last Taken Unknown] heparin (porcine) 5,000 unit/mL injection solution 5,000 unit subcut Q12 Blood thinner #0 mL 11/28/22 [Rx Last Taken Unknown] menthol 0.44 %-zinc oxide 20.6 % topical ointment (Calmoseptine) 1 applic topical 4X/DAY Skin protection #0 grams 11/28/22 [Rx Last Taken Unknown] nystatin 100,000 unit/gram topical powder (Nyamyc) 1 applic topical TID Skin protection #0 grams 11/28/22 [Rx Last Taken Unknown] oxycodone 5 mg tablet 10 mg (2 x 5 mg) PO Q4H PRN PRN Pain Score 4-10 #0 tabs 11/28/22 [Rx Last Taken Unknown] sennosides 8.6 mg-docusate sodium 50 mg tablet (Stool Softener-Stimulant Laxative) 2 tab PO BID Constipation #1 TAB 11/28/22 [Rx Last Taken Unknown] Allergy/AdvReac Type Severity Reaction Status Date / Time No Known Allergies Allergy Verified 11/25/22 05:40 Family History Other Heart disease Surgical History (Updated 11/29/22 @ 17:[address] Scott Gauthier DO) H/O hernia repair History of cystoscopy History of open reduction and internal fixation (ORIF) procedure History of open reduction and internal fixation (ORIF) procedure History of renal stent History of transurethral resection of prostate Hx of cystoscopy Status post appendectomy Social History household members: spouse and other details: 2 st0ry house. He sleeps downstairs in a recliner. 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 PVR's are normal. Denies swollen legs during the day. Tells me he goes a large amount. ; Denies anorexia, change in weight or chills Eyes Eyes: Denies blurry vision, double vision, exophthalmos, nystagmus or ptosis ENT HEENT: Reports abnormal hearing; Denies dysphagia, headache(s), hearing loss, nasal congestion or sore throat Cardiovascular Cardiovascular: Denies chest pain, dyspnea on exertion, edema, lightheadedness, orthopnea, palpitations, paroxysmal nocturnal dyspnea or syncope Respiratory/Chest Respiratory/Chest: Reports cough and other Details: chronic productive cough, mostly in the AM ; Denies dyspnea, shortness of breath at rest, shortness of breath with exertion or wheezing Gastrointestinal Gastrointestinal: Reports constipation; Denies abdominal pain, diarrhea, dyspepsia, hematemesis, hematochezia, nausea or vomiting Genitourinary Genitourinary: Reports nocturia; Denies dysuria, hematuria, urinary frequency, urinary hesitancy, urinary incontinence or urinary urgency Musculoskeletal Musculoskeletal: Reports joint pain; Denies back pain, joint swelling or neck pain Integumentary Integumentary: Denies alopecia, jaundice, pruritus or rash Neurologic Neurologic: Denies confusion, disequilibrium, dizziness, focal weakness, headache(s), paresthesias, seizures or tremor(s) Psychiatric Psychiatric: Denies anxiety, depression, homicidal ideation or suicidal ideation Endocrine Endocrinology: Denies change in body appearance, polydipsia or polyuria Hematologic/Lymphatic Hematologic/Lymphatic: Reports easy bruising; Denies easy bleeding or lymphadenopathy Allergic/Immunologic Allergic/Immunologic: Denies rhinitis, eczemia or asthma Vital Signs Vital Signs Vital Signs: 11/28/22 13:53 11/28/22 19:53 11/28/22 18:42 Temperature 97.1 F L 98.4 F Temperature Source Temporal Temporal Pulse Rate 76 85 Respiratory Rate 16 15 Respiratory Effort Respiratory Depth Respiratory Pattern Blood Pressure 109/51 L 130/56 H Blood Pressure Mean 70 80 Blood Pressure Source Monitor Monitor Blood Pressure Position Semi-Fowlers Semi-Fowlers Blood Pressure Location Left Arm Left Arm Pulse Ox 96 96 94 Oxygen Delivery Method Room Air Room Air Room Air 11/28/22 21:35 11/29/22 09:25 Temperature 96.9 F L Temperature Source Temporal Pulse Rate 78 Respiratory Rate 15 Respiratory Effort Normal Non-Labored Respiratory Depth Normal Respiratory Pattern Normal Blood Pressure 120/79 Blood Pressure Mean 92 Blood Pressure Source Monitor Blood Pressure Position Semi-Fowlers Blood Pressure Location Left Arm Pulse Ox 96 96 Oxygen Delivery Method Room Air Room Air Weight Weight: 127 lb 5 oz Body Mass Index (BMI) 18.2 Physical Exam Const alert, oriented x3 and no apparent distress Constitutional Narrative: Making good eye contact, appropriate. Lying in bed watching TV. Pleasant and appropriate. General Appearance: cooperative, comfortable, well kempt and well developed HEENT moist oral mucous membranes Head and Scalp: normal to inspection, normocephalic and atraumatic Face and Sinus: face symmetric Eyes EOMs intact bilaterally, conjunctivae normal and no scleral icterus Eyes Narrative: wears glasses General Eye: normal appearance of both eyes Neck no lymphadenopathy, supple, no JVD and no carotid bruits General: trachea midline Chest Chest: symmetrical chest wall rise Resp normal respiratory effort, no use of accessory muscles and clear to auscultationbilaterally Resp Narrative: Not tachypneic and no conversational dyspnea. Diminished in the bases. Effort and Inspection: able to speak in complete sentences Cardio regular rate, regular rhythm, S1 normal heart sound, S2 normal heart sound, no murmurs, no rub and no gallops GI normal to inspection, nondistended, normoactive bowel sounds and non-tender GI Narrative: No guarding with palpation. Extremity no clubbing, cyanosis or edema Extremity Narrative: Negative Julio's and Teo's signs. Intact sensation to both feet. Peripheral Pulses: Yes pulses 2+ throughout Skin Skin Narrative: No rashes, no skin breakdown. General Skin Exam: no breakdown Rashes: no rashes Wound Narrative: Will examine the incision the next time the dressing is changed. Neuro oriented x3, CN's II-XII intact bilaterally and no focal motor deficits Motor Exam: strength 5/5 throughout Psych affect normal Psych Narrative: Appropriate, making good eye contact. Able to stay on topic and focus. No flight of ideas. Does not appear anxious or depressed. Conversant and relating well to staff. Results Lab / Micro Data 11/29/22 05:52 11/29/22 05:52 Labs: Laboratory Results - last 24 hr 11/29/22 05:52: WBC 4.0 L, RBC 2.86 L, Hgb 8.9 L, Hct 27.3 L, MCV 95.5 H, MCH 31.1, MCHC 32.6, RDW Std Deviation 47.7 H, RDW Coeff of Michael 13.4, Plt Count 165,MPV 9.3, Sodium 133 L, Potassium 4.5, Chloride 100, Carbon Dioxide 28.0, Anion Gap 5, BUN 24 H, Creatinine 0.77, Estim Creat Clear Calc 42.51, Est GFR (MDRD) Af Amer 123, Est GFR (MDRD) Non-Af 101, BUN/Creatinine Ratio 31.1 H, Glucose 97,Calcium 8.2 L, Phosphorus 3.1, Magnesium 2.1, Total Bilirubin 0.70, AST 40 H, ALT 29, Alkaline Phosphatase 90, Total Protein 5.9 L, Albumin 2.2 L, Globulin 3.7, Albumin/Globulin Ratio 0.6 L Assessment & Plan Assessment/Plan (1) Debility: (2) Fracture of right hip: QUALIFIERS: Encounter type: initial encounter Fracture type: closed Qualified Code(s): S72.001A - Fracture of unspecified part of neck of right femur, initial encounter for closed fracture (3) History of open reduction and internal fixation (ORIF) procedure: (4) History of open reduction and internal fixation (ORIF) procedure: (5) Acute blood loss anemia: (6) Vitamin D insufficiency: (7) Leukopenia: (8) Hyponatremia: (9) History of SIADH: (10) Hydronephrosis: QUALIFIERS: Hydronephrosis type: unspecified Qualified Code(s): N13.30 - Unspecified hydronephrosis (11) Former smoker: (12) Chronic bronchitis: QUALIFIERS: Chronic bronchitis type: simple Qualified Code(s): J41.0 - Simple chronic bronchitis (13) Prostatic cancer: PLAN: Plan PLAN PT for gait stability OT for ADL's ST for evaluation Analgesics as needed Bowel protocol Fall precautions Assess for Anxiety/Depression GI prophylaxis not necessary at this time, patient is asymptomatic with no history of peptic ulcer disease. DVT prophylaxis with Lovenox 40 mg subcu daily and following DC from rehab will use ASA 81 mg BID for a total of 4 weeks post op Follow up with PCP and Dr. Holguin following DC from IP Rehab AM lab including CMP, CBC, Mag and Phos-all personally reviewed Try Elavil 10 mg @ HS to help with nocturia and sleep disturbance. Start him on a vitamin D supplement Monitor for urine retention after initiation of Elavil. 11/29/22 1733 <Electronically signed by Scott Gauthier DO> Cosigner Signature (if applicable): CC: Dr. Johnny Shelton DO; Dr. Scott Gauthier DO; Dr. Hitesh Holguin, DO~ Signed [facility] Work Phone: 1(184) 721-372609-01-2023 Discharge summary Author Johnny Aguillon [facility] November 28, 2022 11:01am Note Date/Time November 28, 2022 10:41am [facility] Medical Records Department [address] [place] [address] Transfer to [facility] MR#: [id number] Acct: [id number] Name: ELIESER VILLEGAS Polo Rep #:[id number] : 1935 87 From: Johnny Aguillon DO PCP: Dr. Johnny Shelton DO Status:ADM IN Certification of patient admission REQUIRED AT TIME OF ADMISSION. I CERTIFY THAT POST-HOSPITAL F SERVICES ARE REQUIRED TO BE GIVEN ON AN IN-PATIENT BASIS BECAUSE OF THE ABOVE NAMED PATIENT'S NEED FOR [facility] CARE ON A CONTINUING BASIS FOR THE CONDITION(S) FOR WHICH HE/SHE WAS RECEIVING IN-PATIENT HOSPITAL SERVICES PRIOR TO HIS/HER TRANSFER TO THE [facility]. 11/28/22 1101<Electronically signed by Johnny Aguillon DO> Diet Diet Order/Speech Therapy: 11/25/22 16:39 Diet: Regular - General Type of Dietary Supplement:: Ensure Plus High Protein Routine Orders/Code Status Code Status: Full Code Wound(s) RIGHT ELBOW: Wound Type: Skin Tear RIGHT HIP: Wound Type: Surgical Incision Therapies Weight Bearing: Weight bearing as tolerated Physical Therapy: Eval and Treat Occupational Therapy: Eval and Treat Problem/Diagnosis (1) Fracture of right hip: Status: Acute Code(s): S72.001A - Fracture of unspecified part of neck of right femur, initial encounter for closed fracture Plan 1. Intertrochanteric fracture of the right hip secondary to mechanical fall- postop day #2 intramedullary nail insertion right femur-continue PT and OT, I will see if the patient makes adequate progress to go home tomorrow, if not, I would recommend to go to the rehab unit for short-term rehab services, patient understands this. #2 neutropenia, resolved at this time-continue to monitor CBC as appropriate #3 evidence of scarring of the lung-I do not feel the patient has any active pulmonary disease such as pneumonia or lung cancer #4 expected acute blood loss anemia secondary to right femoral fracture Total clinical time spent by myself addressing patient's medical issues, reviewing all of the data, collaborating with patient's care team: 35 minutes Allergies/Procedures Done in Hospital Allergies No Known Allergies Allergy (Verified 11/25/22 05:40) Procedures: - (Intramedullary nail insertion right hip) Type of Care/Length of Stay Estimated LOS: Convalescent Care Less Than 30 days Type of Care Needed: Acute Rehab Rehab Potential: Good Prognosis: Good Additional Orders/Day of Discharge H&P will serve as current which was dated: 11/25/22 Day of Discharge: 11/28/22 Discharge Plan Admission Admit Date/Time: 11/25/22 08:01 Primary Reason for Your Visit: right hip fracture Attending Provider: Johnny Aguillon Primary Care Provider: Johnny Shelton Consulting Providers: Hitesh Holguin Instructions Additional Instructions / Restrictions: Patient may shower, leave incision area open to air Discharge Orders/Prescriptions Prescriptions: New acetaminophen 325 mg Tablet 650 mg PO Q6H PRN PRN (Reason: Pain 1-10 Or Fever >100.7) Qty: 0 0RF calcium carbonate 200 mg calcium (500 mg) Tablet,Chewable 500 mg PO TIDCM Qty: 0 0RF heparin (porcine) 5,000 unit/mL Solution 5,000 unit subcut Q12 Qty: 0 0RF menthol-zinc oxide [Calmoseptine] 0.44-20.6 % Ointment 1 applic topical 4X/DAY Qty: 0 0RF Protocol: *Topical Application Instructions APPLICATION INSTRUCTIONS: apply to buttock Rx Instructions: Apply to affected areas 4 times a day sennosides-docusate sodium [Stool Softener-Stimulant Laxat] 8.6-50 mg Tablet 2 tab PO BID Qty: 1 0RF nystatin [Nyamyc] 100,000 unit/gram Powder 1 applic topical TID Qty: 0 0RF Protocol: *Topical Application Instructions APPLICATION INSTRUCTIONS: GROIN oxycodone 5 mg Tablet 10 mg PO Q4H PRN PRN (Reason: Pain Score 4-10) Qty: 0 0RF No Action NK Referrals / Follow Up: Johnny Shelton DO [Primary Care Provider] - Hitesh Holguin DO [Med Staff - Active Staff] - See Referral Note (In 2 weeks,Dr. Holguin will see the patient in the rehab unit) Disposition Disposition (needs filled in before D/C Order can be placed): Inpatient Rehab Unit/Facility (1) Fracture of right hip Qualifiers: Encounter type: initial encounter Fracture type: closed Qualified Code(s): S72.001A - Fracture of unspecified part of neck of right femur, initial encounter for closed fracture 11/28/22 1101 <Electronically signed by Johnny Aguillon DO> Cosigner Signature (if applicable): CC: Dr. Johnny Shelton DO; Dr. Hitesh Holguin DO ~ [facility] Work Phone: 1(987) 462-280308-30-2023 Progress note Author [facility] November 26, 2022 6:50pm Note Date/Time November 26, 2022 6: 33pm [facility] Medical Records Department [address] [place] [address] Progress Note - Hospitalist 11/26/22 1831 MR#: [id number] Acct: [id number] Name: ELIESER VILLEGAS Rep #:[id number] : 1935 87 From: Johnny Aguillon DO PCP: Dr. Johnny Shelton DO Status:ADM IN Location: [facility] IT515-4 Reason for Visit Reason for Visit: Diagnoses Fracture of unspecified part of neck of right femur, initial encounter for closed fracture (11/25/22) Subjective Subjective Patient was seen and examined today, and a brief conversation with him about going to the rehab unit here, patient would rather not do it but he states that if he has to he will go. would like him to go and is concerned that he will not be safe at home. Patient's hemoglobin today was 10.4 Objective Data Objective Data Vital Signs: Vital Signs Temp Pulse Resp BP Pulse Ox O2 Del Method 98.0 F 75 18 113/55 L 95 Room Air 11/26/22 18:00 11/26/22 18:00 11/26/22 18:00 11/26/22 18:00 11/26/22 18:00 11/26/22 18:00 Oxygen Delivery Method Room Air Intake & Output: Intake and Output for Last 24 Hours 11/24/22 11/25/22 11/26/22 23:59 23:59 23:59 Intake Total 916.25 / 916.25 1081.75 / 1081.75 Output Total 125 / 125 Balance 791.25 / 791.25 1081.75 / 1081.75 Lab / Micro Data 11/26/22 05:45 11/26/22 05:45 Labs: Laboratory Results - last 24 hr 11/26/22 05:45: WBC 6.3, RBC 3.37 L, Hgb 10.4 L, Hct 32.8 L, MCV 97.3 H, MCH 30.9, MCHC 31.7 L D, RDW Std Deviation 48.6 H, RDW Coeff of Michael 13.5, Plt Count 149 L, MPV 9.6, Immature Gran % (Auto) 0.800, Neut % (Auto) 79.7 H, Lymph % (Auto) 10.1 L, [place] % (Auto) 8.6, Eos % (Auto) 0.5, Baso % (Auto) 0.3, Absolute Neuts (auto) 5.0, Absolute Lymphs (auto) 0.63 L, Nucleated RBC % 0, Sodium 135 L, Potassium 5.0, Chloride 101, Carbon Dioxide 30.0, Anion Gap 4 L, BUN 26 H, Creatinine 0.96, Est GFR (MDRD) Af Amer 95, Est GFR (MDRD) Non-Af 78, BUN/Creatinine Ratio 26.9 H, Glucose 126 H, Calcium 8.1 L Physical Exam Const alert, oriented x3 and no apparent distress General Appearance: cooperative, well kempt and well developed Orientation / Consciousness: awake, oriented to person, oriented to place and oriented to time HEENT normocephalic, head/scalp atraumatic and moist oral mucous membranes Eyes PERRL, EOMs intact bilaterally and conjunctivae normal Neck supple, no JVD, thyroid normal and no carotid bruits General: trachea midline Resp normal respiratory effort, no retractions, no use of accessory muscles and clearto auscultation bilaterally Auscultation: Negative for rales, rhonchi or wheezes Cardio regular rate, regular rhythm, S1 normal heart sound, S2 normal heart sound, no murmurs, no rub and no gallops GI normal to inspection, nondistended, normoactive bowel sounds, soft to palpation,non-tender and non-distended Extremity no clubbing, cyanosis or edema Skin no rashes or lesions noted General Skin Exam: no breakdown Neuro oriented x3, CN's II-XII intact bilaterally, moves all extremities, no focal motor deficits and no sensory deficits noted Sensorium / Orientation: awake, alert, oriented to person, oriented to place andoriented to time Speech: speech normal Psych affect normal Assessment & Plan Assessment/Plan (1) Fracture of right hip: QUALIFIERS: Encounter type: initial encounter Fracture type: closed Qualified Code(s): S72.001A - Fracture of unspecified part of neck of right femur, initial encounter for closed fracture PLAN: Plan 1. Intertrochanteric fracture of the right hip secondary to mechanical fall- postop day #1 intramedullary nail insertion right femur-continue PT and OT, I will see if the patient makes adequate progress to go home tomorrow, if not, I would recommend to go to the rehab unit for short-term rehab services, patient understands this. #2 neutropenia, resolved at this time-continue to monitor CBC as appropriate #3 evidence of scarring of the lung-I do not feel the patient has any active pulmonary disease such as pneumonia or lung cancer #4 expected acute blood loss anemia secondary to right femoral fracture-monitor H&H, I will repeat the patient's hemoglobin tomorrow. Total clinical time spent by myself addressing patient's medical issues, reviewing all of the data, collaborating with patient's care team: 35 minutes Charges/Coding Visit Charges Inpatient E&M: 45089 Subs Hosp L2 11/26/22 1850 <Electronically signed by Johnny Aguillon DO> Cosigner Signature (if applicable): CC: ~ Signed [facility] Work Phone: 1(452) 604-283308-30-2023 Progress note Author Hitesh Holguin [facility] November 26, 2022 7:26am Note Date/Time November 26, 2022 7: 27am [facility] Medical Records Department [address] [place] [address] Progress Note - Orthopedic 11/26/22 0725 MR#: [id number] Acct: [id number] Name: ELIESER VILLEGAS Rep #:[id number] : 1935 87 From: Hitesh stevens DO PCP: Dr. Johnny Shelton, DO Status:ADM IN Location: [facility] GI755-8 Subjective Subjective Patient seen and examined. Denies significant pain. Denies fevers, chills, nausea or vomiting, chest pain or shortness of breath. Up with nursing to standat bedside, did note some lightheadedness which resolved after laying back down.. Objective Data Objective Data Vital Signs: Vital Signs Temp Pulse Resp BP Pulse Ox O2 Del Method 99.2 F H 88 18 93/65 93 Room Air 11/26/22 06:10 11/26/22 06:10 11/26/22 06:10 11/26/22 06:10 11/26/22 06:10 11/26/22 06:10 Oxygen Delivery Method Room Air Intake & Output: Intake and Output for Last 24 Hours 11/24/22 11/25/22 11/26/22 23:59 23:59 23:59 Intake Total 916.25 / 916.25 181.75 / 181.75 Output Total 125 / 125 Balance 791.25 / 791.25 181.75 / 181.75 Lab / Micro Data 11/26/22 05:45 11/26/22 05:45 Labs: Laboratory Results - last 24 hr 11/25/22 09:27: Sodium 136, Potassium 4.1, Chloride 103, Carbon Dioxide 27.0, Anion Gap 6, BUN 14, Creatinine 0.96, Est GFR (MDRD) Af Amer 96, Est GFR (MDRD) Non-Af 79, BUN/Creatinine Ratio 14.7, Glucose 84, Calcium 8.3 L, Total Bilirubin0.50, AST 19, ALT 17, Alkaline Phosphatase 119 H, Total Protein 6.5, Albumin 3.0L, Globulin 3.5, Albumin/Globulin Ratio 0.9, Vitamin D 25-Hydroxy 23.5, Blood Type O POSITIVE, Antibody Screen NEGATIVE 11/26/22 05:45: WBC 6.3, RBC 3.37 L, Hgb 10.4 L, Hct 32.8 L, MCV 97.3 H, MCH 30.9, MCHC 31.7 L D, RDW Std Deviation 48.6 H, RDW Coeff of Michael 13.5, Plt Count 149 L, MPV 9.6, Immature Gran % (Auto) 0.800, Neut % (Auto) 79.7 H, Lymph % (Auto) 10.1 L, [place] % (Auto) 8.6, Eos % (Auto) 0.5, Baso % (Auto) 0.3, Absolute Neuts (auto) 5.0, Absolute Lymphs (auto) 0.63 L, Nucleated RBC % 0, Sodium 135 L, Potassium 5.0, Chloride 101, Carbon Dioxide 30.0, Anion Gap 4 L, BUN 26 H, Creatinine 0.96, Est GFR (MDRD) Af Amer 95, Est GFR (MDRD) Non-Af 78, BUN/Creatinine Ratio 26.9 H, Glucose 126 H, Calcium 8.1 L Radiography Diagnostic Testing: Radiology Impression Hip X-Ray 11/25/22 13:05 IMPRESSION: undefined Physical Exam Narrative General - A&Ox3, NAD. VSS/AF Right lower extremity -incisional dressing C/D/I. SILT Sural, Saphenous, SPN, DPN, Tibial N. distributions. DP, PT 2+. BCR. DF, PF, EHL 5/5. No calf TTP. Assessment & Plan Assessment/Plan (1) Fracture of right hip: QUALIFIERS: Encounter type: initial encounter Fracture type: closed Qualified Code(s): S72.001A - Fracture of unspecified part of neck of right femur, initial encounter for closed fracture PLAN: POD#1 s/p right femur CMN -Patient doing well this morning. Acute blood loss anemia is noted secondary toexpected blood loss with surgery, some dilutional component is suspected. No indication for transfusion. - Pain control - Medicine following for medical management - PT/OT-weightbearing as tolerated right lower extremity - DVT PPX -heparin, SCDs, TORIN hose, early mobilization - Case management - D/C planning 11/26/22 0726 <Electronically signed by Hitesh Holguin DO> Cosigner Signature (if applicable): CC: ~ Signed [facility] Work Phone: [phone]) 461-401408-29-2023 Procedure [facility] 11-25-2022 Consult note Author Hitesh Holguin [facility] November 25, 2022 9:06am Note Date/Time November 25, 2022 9: 06am [facility] Medical Records Department [address] [place] [address] Consultation - Orthopedics 11/25/22 0903 MR#: [id number] Acct: [id number] Name: ELIESER VILLEGAS Rep #:[id number] : 1935 87 From: Hitesh stevens DO PCP: Dr. Johnny Shelton DO Status:ADM IN Location: [place] [address] HPI Consult Data Date of Consult: 11/25/22 HPI Narrative Reason for Consultation: Right hip fracture HPI Narrative: ELIESER VILLEGAS, is a 87 M who presents after a fall from standing height at home. He is unsure if this was a syncopal episode after he tripped and fell. He denies right hip and is able to bear weight. Patient also states he scraped hisright elbow. Patient denies any antecedent right hip or groin pain. Patient alisha community ambulator with a cane. Patient underwent left femur cephalomedullary nailing with myself 09/05/2021. He recovered well without complication. Patient lives at home with his . He denies any fevers, chills, nausea vomiting, chest pain, shortness of breath, numbness or tingling. Patient denies any head injury or neck injury. [facility] Medical History Abnormal results of thyroid function studies Alcohol use Arthritis Back pain Cancer Cholelithiasis Chronic bronchitis Former smoker Heartburn History of edema History of SIADH Hydronephrosis Kidney failure Loss of hearing Low iron Prostate cancer Prostatic cancer Shortness of breath on exertion Wears glasses Wears partial dentures Home Medications NK 11/25/22 [History Last Taken Unknown] Allergy/AdvReac Type Severity Reaction Status Date / Time No Known Allergies Allergy Verified 11/25/22 05:40 Family History Other Heart disease Surgical History H/O hernia repair History of open reduction and internal fixation (ORIF) procedure History of renal stent History of transurethral resection of prostate Hx of cystoscopy Status post appendectomy Social History household members: spouse and other details: 2 st0ry house. He sleeps downstairs in a recliner. 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 Vital Signs Vital Signs Vital Signs: 11/25/22 05:36 11/25/22 05:40 11/25/22 07:23 Temperature 97.5 F L 98 F Temperature Source Temporal Temporal Pulse Rate 75 75 Respiratory Rate 16 14 Respiratory Effort Normal Non-Labored Respiratory Depth Normal Respiratory Pattern Normal Blood Pressure 136/81 H 137/89 H Blood Pressure Mean 99 105 Pulse Ox 96 98 Oxygen Delivery Method Room Air Room Air Room Air Physical Exam Narrative General -A&Ox3, NAD, appears stated age. Vital signs stable, afebrile. Respiratory -normal work of breathing, no intercostal retractions. CV -pulses regular, brisk capillary refill ?4 limbs. Abdomen-soft, nontender, nondistended. No guarding, rigidity, rebound tenderness. Musculoskeletal/neurologic -full range of motion nontender throughout bilateral upper extremities, left lower extremity with full sensation and strength in all dermatomes and myotomes. No midline cervical tenderness. Apparent skin tears were dressed by emergency department to the right upper extremity. Minimally tender about the right elbow. Right lower extremity-no obvious deformity. Pain with logroll of the right lower extremity. Nontender throughout the right knee femoral shaft, tibial shaft and left foot/ankle. Brisk capillary refill. Sensation intact light touch L3-S1 dermatomes. DF, PF, EHL intact. DP, PT 2+. Pelvis is stable, nontender. Skin is intact without lacerations, abrasions. No ecchymosis noted. Lab / Micro Data 11/25/22 06:10 11/25/22 06:10 Labs: Laboratory Results - last 24 hr 11/25/22 06:10: WBC 3.8 L, RBC 4.62, Hgb 14.8, Hct 44.1, MCV 95.5 H, MCH 32.0, MCHC 33.6, RDW Std Deviation 47.1 H, RDW Coeff of Michael 13.3, Plt Count 171, MPV 9.2, Immature Gran % (Auto) 1.100 H, Neut % (Auto) 66.8, Lymph % (Auto) 19.4, [place] % (Auto) 8.5, Eos % (Auto) 3.7, Baso % (Auto) 0.5, Absolute Neuts (auto) 2.5, Absolute Lymphs (auto) 0.73 L, Nucleated RBC % 0, PT 12.7, INR 1.0, APTT 27.5, Sodium 136, Potassium 4.3, Chloride 102, Carbon Dioxide 30.0, Anion Gap 4 L, BUN 14, Creatinine 1.02, Est GFR (MDRD) Af Amer 89, Est GFR (MDRD) Non-Af 73,BUN/Creatinine Ratio 13.7, Glucose 90, Calcium 8.5 Radiology Impression Chest X-Ray 11/25/22 05:50 IMPRESSION: No acute fracture identified. Atelectasis/scarring in the medial aspect of the right lower lobe with possible superimposed infection or aspiration. Electronically Signed: Greg Landa MD at 7:15 EDT , Hip/Pelvis X-Ray 11/25/22 05:50 IMPRESSION: Intertrochanteric fracture of the right femur. Electronically Signed: Greg Landa MD at 7:20 EDT , Assessment & Plan Assessment/Plan (1) Fracture of right hip: QUALIFIERS: Encounter type: initial encounter Fracture type: closed Qualified Code(s): S72.001A - Fracture of unspecified part of neck of right femur, initial encounter for closed fracture PLAN: Patient sustained a right intertrochanteric proximal femur fracture. -Closed, neurovascularly intact -Isolated injury -Recommending surgical intervention in the form of right femur cephalomedullary nailing -I discussed the procedure-its risks, benefits and alternative. Risks include but are not limited to bleeding, infection, loss of life or limb, risk of anesthesia, persistent pain or disability, need for additional surgery, nonunion, malunion, failure of orthopedic hardware, neurovascular injury, DVT orPE. Patient expressed understanding these risks and wished proceed with surgery. -Maintenance IV fluids, clear liquid diet after midnight n.p.o. at 2 hours priorto surgery -Type and screen -2 g Ancef on-call to the OR -Bedrest, heel protectors -Plan to proceed with surgery later today when OR becomes available Thank you for this consultation. 11/25/22905 <Electronically signed by Hitesh Holguin DO> Cosigner Signature (if applicable): CC: Dr. Johnny Shelton DO; Dr. Hitesh Holguin DO~ Signed [facility] Work Phone: 1(891) 109-909908-29-2023 History and physical note Author Johnny Aguillon [facility] November 25, 2022 8:01am Note Date/Time November 25, 2022 7: 41am [facility] Medical Records Department [address] [place] [address] H&P Exam - Hospitalist 11/25/22 0739 MR#: [id number] Acct: [id number] Name: ELIESER VILLEGAS Rep #:[id number] : 1935 87 From: Johnny Aguillon DO PCP: Dr. Johnny Shelton DO Status:ADM IN Location: [place] [address] HPI - General General Date of Admission: 11/25/22 Date of Service: 11/25/22 Chief Complaint: Right hip pain HPI Narrative ELIESER VILLEGAS, is a 87 M who presents to the emergency room at [facility] after sustaining a fall at home, patient was going from his kitchen to the next room and tripped on the divider for the rooms, he landed on his right hip and cannot bear weight and has right hip pain. Patient has no medical issues, he does not take any prescription medication, patient had a previous left intertrochanteric fracture approximately a year ago. Work-up in the emergency room included x-rays of the pelvis and hips, there is noted to be an intertrochanteric fracture of the right femur, labs were obtained, patient's white blood cell count was slightly low at 3.8, previous white blood cell count done in 2021 was low at 2.7. Patient's chemistry panel was unremarkable. Patient had an EKG performed which showed a normal sinus rhythm without evidence of ischemic changes or previous myocardial infarction. Chest x-ray showed atelectasis or scarring in the medial aspect of the right lower lobe with possible superimposed infection or aspiration. Patient has no complaints of any shortness of breath, he has no complaints of cough, fever, chills, or chest discomfort. Patient will be admitted to [facility] and will be seen in consultation by orthopedic surgery, it is believed that he will go to surgery today for ORIF of the right hip. [facility] Medical History Abnormal results of thyroid function studies Alcohol use Arthritis Back pain Cancer Cholelithiasis Chronic bronchitis Former smoker Heartburn History of edema History of SIADH Hydronephrosis Kidney failure Loss of hearing Low iron Prostate cancer Prostatic cancer Shortness of breath on exertion Wears glasses Wears partial dentures Home Medications NK 11/25/22 [History Last Taken Unknown] Allergy/AdvReac Type Severity Reaction Status Date / Time No Known Allergies Allergy Verified 11/25/22 05:40 Family History Other Heart disease Surgical History H/O hernia repair History of open reduction and internal fixation (ORIF) procedure History of renal stent History of transurethral resection of prostate Hx of cystoscopy Status post appendectomy Social History household members: spouse and other details: 2 st0ry house. He sleeps downstairs in a recliner. 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 Tobacco: How many years used: 67 how long ago did patient quit smoking: He quit in 2019 alcohol intake: current alcohol intake frequency: holidays/special occasions only substance use type: does not use ROS Constitutional Constitutional: Denies anorexia, change in weight, chills, fatigue, fever(s), malaise, night sweats or weakness Eyes Eyes: Denies blurry vision, change in vision, discharge from eye(s) or eye pain Cardiovascular Cardiovascular: Denies chest pain, claudication, edema or palpitations Respiratory/Chest Respiratory/Chest: Denies cough, hemoptysis, shortness of breath at rest or shortness of breath with exertion Gastrointestinal Gastrointestinal: Denies abdominal pain, constipation, diarrhea, hematemesis, hematochezia, melena, nausea or vomiting Genitourinary Genitourinary: Denies dysuria, hematuria, urinary frequency, urinary hesitancy, urinary incontinence or urinary urgency Musculoskeletal Musculoskeletal: Reports joint pain and other Details: Right hip pain and inability to bear weight on right hip ; Denies back pain, joint stiffness, joint swelling, myalgias or neck pain Neurologic Neurologic: Denies abnormal gait, abnormal speech, confusion, disequilibrium, dizziness, focal weakness, headache(s), loss of vision, numbness, other visual disturbances, paresthesias, syncope or tingling Psychiatric Psychiatric: Denies anxiety, cognitive impairment, depression, irritability, mood swings or suicidal ideation Endocrine Endocrinology: Denies change in body appearance, cold intolerance, excessive sweating, heat intolerance, polydipsia or polyuria Hematologic/Lymphatic Hematologic/Lymphatic: Denies none, anemia, easy bleeding, easy bruising or lymphadenopathy Allergic/Immunologic Allergic/Immunologic: Denies rhinitis, urticaria, eczemia or asthma Vital Signs Vital Signs Vital Signs: 11/25/22 05:36 11/25/22 05:40 11/25/22 07:23 Temperature 97.5 F L 98 F Temperature Source Temporal Temporal Pulse Rate 75 75 Respiratory Rate 16 14 Respiratory Effort Normal Non-Labored Respiratory Depth Normal Respiratory Pattern Normal Blood Pressure 136/81 H 137/89 H Blood Pressure Mean 99 105 Pulse Ox 96 98 Oxygen Delivery Method Room Air Room Air Room Air Physical Exam Const alert, oriented x3, no apparent distress and healthy appearing General Appearance: cooperative, well kempt and well developed Orientation / Consciousness: awake, oriented to person, oriented to place and oriented to time HEENT normocephalic and moist oral mucous membranes Eyes PERRL, EOMs intact bilaterally and conjunctivae normal Neck supple, no JVD, thyroid normal and no carotid bruits General: trachea midline Resp normal respiratory effort, no retractions and no use of accessory muscles Resp Narrative: Lungs are clear to auscultation anterior bilaterally Auscultation: Negative for rales, rhonchi or wheezes Cardio regular rate, regular rhythm, S1 normal heart sound, S2 normal heart sound, no murmurs, no rub and no gallops GI normal to inspection, nondistended, normoactive bowel sounds, soft to palpation,non-tender and non-distended Extremity Extremity Narrative: Patient has right hip discomfort with any movement of his right hip, it appears slightly externally rotated. Skin no rashes or lesions noted General Skin Exam: no breakdown Neuro oriented x3, CN's II-XII intact bilaterally, no focal motor deficits and no sensory deficits noted Sensorium / Orientation: awake and alert Speech: speech normal Psych affect normal Results Lab / Micro Data 11/25/22 06:10 11/25/22 06:10 Labs: Laboratory Results - last 24 hr 11/25/22 06:10: WBC 3.8 L, RBC 4.62, Hgb 14.8, Hct 44.1, MCV 95.5 H, MCH 32.0, MCHC 33.6, RDW Std Deviation 47.1 H, RDW Coeff of Michael 13.3, Plt Count 171, MPV 9.2, Immature Gran % (Auto) 1.100 H, Neut % (Auto) 66.8, Lymph % (Auto) 19.4, [place] % (Auto) 8.5, Eos % (Auto) 3.7, Baso % (Auto) 0.5, Absolute Neuts (auto) 2.5, Absolute Lymphs (auto) 0.73 L, Nucleated RBC % 0, PT 12.7, INR 1.0, APTT 27.5, Sodium 136, Potassium 4.3, Chloride 102, Carbon Dioxide 30.0, Anion Gap 4 L, BUN 14, Creatinine 1.02, Est GFR (MDRD) Af Amer 89, Est GFR (MDRD) Non-Af 73,BUN/Creatinine Ratio 13.7, Glucose 90, Calcium 8.5 Radiology Impression Chest X-Ray 11/25/22 05:50 IMPRESSION: No acute fracture identified. Atelectasis/scarring in the medial aspect of the right lower lobe with possible superimposed infection or aspiration. Electronically Signed: Greg Landa MD at 7:15 EDT , Hip/Pelvis X-Ray 11/25/22 05:50 IMPRESSION: Intertrochanteric fracture of the right femur. Electronically Signed: Greg Landa MD at 7:20 EDT , Assessment & Plan Assessment/Plan (1) Fracture of right hip: PLAN: Plan 1. Intertrochanteric fracture of the right hip secondary to mechanical fall- patient will be admitted to [facility] 3, he will be seen in consultation by orthopedic surgery, he will be seen by PT and OT, it is planned that he will have surgery today for repair of his right hip fracture. Patient appears medically stable at this time to undergo surgery, he is at moderate risk for complications due to his age but he is on no medications at this time and does not have any known medical problems. #2 neutropenia-patient has slight neutropenia, this appears to be chronic over the past 2 years, I do not think this will impact his surgery. #3 evidence of scarring of the lung-I do not feel the patient has any active pulmonary disease such as pneumonia or lung cancer Total clinical time spent by myself addressing patient's medical issues, reviewing all of the data, collaborating with patient's care team: 75 minutes Charges/Coding Visit Charges Inpatient E&M: 97215 Init Hosp L3 11/25/22 0801 <Electronically signed by Johnny Aguillon DO> Cosigner Signature (if applicable): CC: Dr. Johnny Shelton, ; Dr. Johnny Aguillon DO~ Signed [facility] Work Phone: [phone]) 978-590208-29-2023 Discharge summary Author Emily Baltazar [facility] November 25, 2022 7:10am Note Date/Time November 25, 2022 5: 55am [facility] Medical Records Department [address] [place] [address] Emergency Department Summary 11/25/22 MR#: [id number] Acct: [id number] Name: ELIESER VILLEGAS Rep #:[id number] : 1935 87 From: Emily Baltazar MD PCP: Dr. Johnny Shelton DO Status:REG ER Location: ED HPI History of Present Illness Chief Complaint: Fall Informant: patient, spouse/S.O., family and EMS Onset/Context/Timing Onset: Today Narrative Narrative: Patient presents after a fall at home. He states he woke up early this morning and smelled something hot. He got up to investigate. He stumbled and fell to the ground. He does not know what made him fall. He landed on his right side and complains of pain to his right elbow and right hip. He denies striking his head. He is not on anticoagulants. [facility] Medical History Abnormal results of thyroid function studies Alcohol use Arthritis Back pain Cancer Cholelithiasis Chronic bronchitis Former smoker Heartburn History of edema History of SIADH Hydronephrosis Kidney failure Loss of hearing Low iron Prostate cancer Prostatic cancer Shortness of breath on exertion Wears glasses Wears partial dentures Home Medications NK 11/25/22 [History Last Taken Unknown] Allergy/AdvReac Type Severity Reaction Status Date / Time No Known Allergies Allergy Verified 11/25/22 05:40 Family History Other Heart disease Surgical History H/O hernia repair History of open reduction and internal fixation (ORIF) procedure History of renal stent History of transurethral resection of prostate Hx of cystoscopy Status post appendectomy Social History household members: spouse and other details: 2 st0ry house. He sleeps downstairs in a recliner. 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 Tobacco: How many years used: 67 how long ago did patient quit smoking: He quit in 2019 alcohol intake: current alcohol intake frequency: holidays/special occasions only substance use type: does not use ROS ROS ED Constitutional Constitutional ED: Denies chills or fever(s) Eyes Eyes: Denies discharge from eye(s) ENT ENT ED: Denies discharge from eye(s), rhinorrhea or sore throat Cardiovascular Cardiovascular: Denies chest pain or palpitations Respiratory/Chest Respiratory/Chest: Denies cough or dyspnea Gastrointestinal Gastrointestinal: Denies abdominal pain, nausea or vomiting Musculoskeletal Musculoskeletal: Reports extremity pain; Denies back pain Integumentary Reports Abrasions; Denies rash Neurologic Neurologic: Denies headache(s) or weakness Psychiatric Psychiatric: Denies anxiety or depression Allergic/Immunologic Allergic/Immunologic ED: Denies lip swelling or urticaria EXAM Physical Exam Const Vital Signs: 11/25/22 05:36 11/25/22 05:40 Temperature 97.5 F L Temperature Source Temporal Pulse Rate 75 Respiratory Rate 16 Respiratory Effort Normal Non-Labored Respiratory Depth Normal Respiratory Pattern Normal Blood Pressure 136/81 H Blood Pressure Mean 99 Pulse Ox 96 Oxygen Delivery Method Room Air Room Air Positive well nourished and well developed General Appearance ED: well developed HEENT Reports normocephalic and head/scalp atraumatic Eyes PERRL and EOMs intact bilaterally Neck supple Chest Wall inspection of chest normal and palpation of chest normal Resp normal respiratory effort and clear to auscultation bilaterally Cardio regular rate and regular rhythm GI non-tender Palpation: soft Extremity Extremity Narrative: Right upper extremity: Patient has a abrasion to the extensor surface of the right elbow in a crosshatch pattern consistent with hitting it on a floor vent. No full-thickness laceration noted. He does have evidence of a traumatic bursitis. There is no bony tenderness with full range of motion of the elbow. Right lower extremity: Right leg is laid in external rotation. Leg lengths are roughly equal. He can wiggle his toes on the right. He has pain with palpationover the right hip and with any attempt at logroll. Neuro oriented x3 and no sensory deficits noted Sensorium / Orientation: alert Psych mental status grossly normal MDM MDM MDM Narrative Medical decision making narrative: Patient initially declines anything for pain. Dressing applied to the right elbow with Kenneth wrap to give slight pressure. EKG obtained to evaluate for cardiac arrhythmia/ischemia. Chest x-ray obtained to evaluate for acute lung pathology, cardiac size, or mediastinal abnormality. X-ray of the pelvis and right hip obtained to evaluate for fracture. Labwork obtained to evaluate for leukocytosis, anemia, and electrolyte derangement. Lab Data Labs: Laboratory Results - last 24 hr 11/25/22 06:10 WBC 3.8 L RBC 4.62 Hgb 14.8 Hct 44.1 MCV 95.5 H MCH 32.0 MCHC 33.6 RDW Std Deviation 47.1 H RDW Coeff of Michael 13.3 Plt Count 171 MPV 9.2 Immature Gran % (Auto) 1.100 H Neut % (Auto) 66.8 Lymph % (Auto) 19.4 [place] % (Auto) 8.5 Eos % (Auto) 3.7 Baso % (Auto) 0.5 Absolute Neuts (auto) 2.5 Absolute Lymphs (auto) 0.73 L Nucleated RBC % 0 PT 12.7 INR 1.0 APTT 27.5 Sodium 136 Potassium 4.3 Chloride 102 Carbon Dioxide 30.0 Anion Gap 4 L BUN 14 Creatinine 1.02 Est GFR (MDRD) Af Amer 89 Est GFR (MDRD) Non-Af 73 BUN/Creatinine Ratio 13.7 Glucose 90 Calcium 8.5 Treatment and Re-Evaluation Narrative: Patient did agree to some pain medication prior to x-ray. He was given 25 mcg of fentanyl. Chest x-ray per my interpretation reveals chronic changes with hyperinflation. No focal infiltrate. Right hip and pelvis x-rays reveal a right intertrochanteric hip fracture. EKG is sinus at 78 with no acute ischemia. CBC reveals white count of 3.8 with a hemoglobin of 14.8. Coags are unremarkable. Chemistry studies are pending at this time. I spoke with Dr. Holguin, who the patient has seen in the past. He asked the patient be kept n.p.o. today and he will talk to the OR and try to arrange surgery today. Patient and family have been updated with this plan. I will speak with hospitalist. Discharge Plan Dx/Rx/DC Orders Clinical Impression: Fracture of right hip Disposition Disposition: Acute Care Hospital [facility] What to do if you have Problems For any increased pain, shortness of breath, bleeding, nausea or vomiting, chestpain, or any unexpected problems, contact your Primary Care Provider. Call [facility] ([phone]) or report to the closest Emergency Room. Call 911 if necessary. 11/25/22 0710 <Electronically signed by Emily Baltazar MD> Cosigner Signature (if applicable): CC: Dr. Johnny Shelton DO ~ Signed [facility] Work Phone: 1(166) 356-247607-12-2023 Discharge summary Author Gildardo Hollingsworth [facility] October 08, 2022 11:12am Note Date/Time October 08, 2022 11:1 2am [facility] Medical Records Department [address] [place] [id number] Instructions for Home/Discharge Instructions 10/08/22 1112 MR#: [id number] Acct: [id number] Name: ELIESER VILLEGAS Rep #:[id number] : 1935 86 From: Gildardo Hollingsworth MD PCP: Dr. Johnny Shelton DO Status[place] [facility] [place]charge Instructions Diet Discharge Diet: No restrictions Activity Discharge Activity: Return to Normal Activity Follow Up Care Please Follow Up With: Gildardo Hollingsworth MD When: 6 months for appt. Test Results: Test results from this visit will be discussed in further detail at your follow- up appointment, if applicable. Discharge Plan Admission Primary Reason for Your Visit: change stent Attending Provider: Gildardo Hollingsworth Primary Care Provider: Johnny Shelton Discharge Orders/Prescriptions Prescriptions: New cephalexin 500 mg capsule 500 mg PO BID Qty: 10 0RF Continued acetaminophen 500 mg tablet 1,000 mg PO Q8 PRN (Reason: pain) Qty: 1 0RF Referrals / Follow Up: Gildardo Hollingsworth MD [Med Staff - Active Staff] - Johnny Shelton DO [Primary Care Provider] - Disposition Disposition (needs filled in before D/C Order can be placed): Home, Self Care 10/08/22 1112<Electronically signed by Gildardo Hollingsworth MD>Gildardo Hollingsworth MD CC: Dr. Johnny Shelton, ~ Signed [facility] Work Phone: 1(953) 651-318507-12-2023 History and physical note Author Gildardo Hollingsworth [facility] October 08, 2022 11:12am Note Date/Time October 08, 2022 11:1 2am [facility] Medical Records Department [address] [place] [address] History & Physical Exam 10/08/221111 MR#: [id number] Acct: [id number] Name: ELIESER VILLEGAS Rep #:[id number] : 1935 86 From: Gildardo Hollingsworth MD PCP: Dr. Johnny Shelton DO Status:[facility] Location: [place] [address] HPI - General General Date of Service: 10/08/22 Chief Complaint: Chronic stent needs changed HPI Narrative ELIESER VILLEGAS, is a 86 M who presents for stent change [facility] Medical History (Updated 03/03/22 @ 00:01 by Maldonado Torrez) Abnormal results of thyroid function studies Alcohol use Arthritis Back pain Cancer Cholelithiasis Chronic bronchitis Former smoker Heartburn History of edema History of SIADH Hydronephrosis Kidney failure Loss of hearing Low iron Prostate cancer Prostatic cancer Shortness of breath on exertion Wears glasses Wears partial dentures Home Medications acetaminophen 500 mg tablet 1,000 mg (2 x 500 mg) PO Q8 PRN pain #1 TAB 09/20/21[Rx Last Taken Unknown] cephalexin 500 mg capsule 500 mg PO BID #10 caps 10/08/22 [Rx Last Taken Unknown] Allergy/AdvReac Type Severity Reaction Status Date / Time No Known Allergies Allergy Verified 10/08/22 09:57 Family History Other Heart disease Surgical History (Updated 09/29/22 @ 10:48 by Melva Darling) H/O hernia repair History of open reduction and internal fixation (ORIF) procedure History of renal stent History of transurethral resection of prostate Hx of cystoscopy Status post appendectomy Social History household members: spouse and other details: 2 stry house. He sleeps downstairs in a recliner. 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 Tobacco: How many years used: 67 how long ago did patient quit smoking: He quit in 2019 alcohol intake: current alcohol intake frequency: holidays/special occasions only substance use type: does not use Vital Signs Vital Signs Vital Signs: 10/08/22 09:58 10/08/22 09:58 Temperature 97.8 F Temperature Source Temporal Pulse Rate 76 Respiratory Rate 18 Respiratory Pattern Normal Blood Pressure 105/77 Blood Pressure Mean 86 Blood Pressure Source Monitor Blood Pressure Position Sitting Blood Pressure Location Left Arm Pulse Ox 97 Oxygen Delivery Method Room Air Weight Weight: 55 kg Body Mass Index (BMI) 18.4 10/08/22 1112 <Electronically signed by Gildardo Hollingsworth MD> Cosigner Signature (if applicable): CC: Dr. Gildardo Hollingsworth MD; Dr. Johnny Shelton DO~ Signed [facility] Work Phone: 1(720) 762-990507-12-2023 Procedure [facility] 04-01-2021 NotePatient Outreach (NETNAV) ELIESER VILLEGAS ([id number]) 1935 M BLD Date Time Provider Department 04/01/21 MARIFER MELENDEZ During your visit today, we recorded the following information about you: Marifer Melendez MA 04/01/2021 10:44 AM Signed [facility]RE[facility] Action/FYI Attempted to contact patient, no answer and left message requesting a return call to update PCP and schedule Wellness Visit. Contact made with patient or family member? NO Pt identified by name and : NO Outreach Outcome/Action Unable to reach patient: Left message Reason for Outreach Attribution: Provider Off-boarding Payer: Payor: [facility] / Plan: [facility] SUPPLEMENT / Product Type: Indemnity / Care Gap Reviewed:: Annual Wellness visit Flu vaccine Reminder: Reminder note to check Health Maintenance for items below Health Maintenance items due: COVID-19 VACCINE(1) Never done SHINGRIX VACCINE(1 of 2) Never done ADVANCE DIRECTIVE DISCUSSION Never done INFLUENZA(1) due on 11/28/2020 Advanced Directives Completed: Have you ever planned for future healthcare decisions with a power of commercial attorney, living will, or advance directives? Referrals: Message Sent to Practice: Navigation Signature: Marifer Melendez MA April 01, 2021 10:43 AM Allergies [...] lung (HCC) [C34.9*01/26/2020 Encounter Status:Closed by MARIFER MELENDEZ on 04/01/21[facility] 04-01-2021 NoteHNO ID: [id number] Author: Marifer Melendez MA Service: ? Author Type: Art Therapy Specialist Type: Progress Notes Filed: 04/01/2021 10:44 AM [...] for Outreach Attribution: Provider Off-boarding Payer: Payor: [facility] / Plan: [facility] SUPPLEMENT / Product Type: Indemnity [...] future healthcare decisions with a power of commercial attorney, living will, or advance directives? Referrals: Message Sent to Practice: Navigation Signature: Marifer Melendez MA April 01, 2021 10:43 [facility]12-02-2021 History of Present illness Narrative* Hakeem Perez DPM - 02/28/2021 4:23 PM EST I attempted to see patient Who was in a hurry to leave after 38 minutes. Patient refused care. documented in this [id number] History of Present illness Narrative* Hakeem Perez DPM - 11/29/2020 4:17 PM EDT Subjective :Pt is a 85 y.o. male seen at the office complaining of painful fungal toe nails . Pt iswanting treatment today. Objective: Int: Toe nails 1both [...] removal. RTC 3 months. documented in this encounterOhioHealthConsult note Author Meri Fischer [facility] April 14, 2023 3:22pm Note Date/Time April 14, 2023 3 :23pm [facility] Medical Records Department [address] [place] [address] Counseling Note - Pharmacy 04/14/23 1522 MR#: [id number] Acct: [id number] Name: NELLYELIESER Polo Rep #:[id number] : 1935 87 From: Meri Fischer PCP: Dr. Johnny Shelton, DO Status:ADM IN Y Location: [place] [address] Pharmacy [facility] Service has performed discharge medication reconciliation and counseling for this patient. 1. AUGMENTIN 875MG PO BID X 2 DAYS The patient's discharge medication list was reviewed for discrepancies and discrepancies were resolved. The patient was counseled on the following discharge medications and changes in medications for homegoing were reviewed. The Reason for Use, instructions for use, and potential side effects were reviewed for all new medications. The patient's questions regarding all of their medications were answered. The patient was able to verbally demonstrate an understanding of their dischargemedications. 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 Johnny Shelton DO Status:ADM IN Discharge Instructions Diet Discharge Diet: - (DASH diet) Activity Discharge Activity: Return to Normal Activity Follow Up Care Test Results: Test results from this visit will be discussed in further detail at your follow- up appointment, if applicable. Discharge Plan Admission Admit Date/Time: 04/09/23 23:52 Primary Reason for Your Visit: Shortness of breath Attending Provider: Sarita Melgar Primary Care Provider: Johnny Shelton Consulting Providers: Twila Humphreys; Sung Sharma; Gabriel Duckworth Instructions Patient Instructions: ED Fall Prevention Additional Instructions / Restrictions: DISCHARGE INSTRUCTIONS PLEASE READ *Please take this with you to your next doctors appointment* -Please follow with Dr. Hollingsworth for stent exchange -You will be discharged on Augmentin 875 mg for 2 more days, this prescription was sent to preferred pharmacy on file -Please call your primary care provider's office upon discharge to schedule a hospital follow up within 1 week. -For any concerning signs or symptoms please call 911 or proceed to the nearest emergency department Discharge Orders/Prescriptions Prescriptions: New amoxicillin-pot clavulanate 875-125 mg tablet 1 tab PO BID 2 Days Qty: 4 0RF No Action NK Referrals / Follow Up: Gildardo Hollingsworth MD [Med Staff - Active Staff] - Within 1 Week Johnny Shelton DO [Primary Care Provider] - Within 1 Week Disposition Disposition (needs filled in before D/C Order can be placed): Home, Self Care 04/14/23 1431<Electronically signed by Sarita Melgar MD>Sarita Melgar MD CC: Dr. Johnny Shelton DO; Dr. Twila Humphreys MD; Dr. Sung Sharma MD; Dr. Gabriel Duckworth MD ~ Signed [facility] Work Phone: Discharge summary Author Gildardo Hollingsworth [facility] Note Date/Time September 14, 2024 1:28 pm [facility] Medical Records Department [address] [place] [address] Instructions for Home/Discharge Instructions 09/14/24 1152 MR#: [id number] Acct: [id number] Name: ELIESER VILLEGAS Rep #:[id number] : 1935 88 From: Gildardo Hollingsworth MD PCP: Dr. Johnny Shelton DO Status:REG SDC Discharge Instructions Diet Discharge Diet: No restrictions DC O2, CPAP, BIPAP needs Home O2 Discharge instructions: No Dressing / Incision Discharge Activity: Return to Normal Activity and May Not Drive (while taking narcotic pain medications.) Additional Activity Instructions:: Patient can remove his own catheter in 2 days Dressing / Incision Call your doctor if you observe: Fever of 101 or Higher Follow Up Care Please Follow Up With: Gildardo Hollingsworth MD When: Call [phone] for an appointment Test Results: Test results from this visit will be discussed in further detail at your follow- up appointment, if applicable. Discharge Plan Admission Primary Reason for Your Visit: Stent change Attending Provider: Gildardo Hollingsworth Primary Care Provider: Johnny Shelton Instructions Print Language: Faroese Discharge Orders/Prescriptions Prescriptions: No Action NK Referrals / Follow Up: Johnny Shelton DO [Primary Care Provider] - Disposition Disposition (needs filled in before D/C Order can be placed): Home, Self Care 09/14/24 1152<Electronically signed by Gildardo Hollingsworth MD>Gildardo Hollingsworth MD CC: Dr. Johnny Shelton DO ~ Signed [facility] Work Phone: Evaluation note* Diagnosis Bilateral swelling of feet and ankles Kidney problem Prostate cancer (HCC) Malignant neoplasm of prostate Onychomycosis Dermatophytosis of nail [facility] Onychomycosis- Primary Dermatophytosis of nail Pain in right toe(s) Pain in toe of left foot Pain in soft tissues of limb Varicose veins of leg with swelling, bilateral [facility] Nail [facility]- Primary [facility]No assessment information [facility]* Diagnosis Onset Date Resolution Status Closed intertrochanteric fracture of left femur acute [facility] Work Phone: Evaluation note* Diagnosis Onset Date Resolution Status Closed intertrochanteric fracture of left femur acute Intertrochanteric fracture a cute [facility] Work Phone: Evaluation note* Diagnosis Onset Date Resolution Status Closed intertrochanteric fracture of left femur acute Acute blood loss anemia acut e Closed intertrochanteric fracture of left femur acute DVT prophylaxis acute Hematuria acute History of open reduction an d internal fixation (ORIF) procedure acute History of SIADH acute Hyperthyroidism acute Hyponatremia acute Leukopenia acute Physical debility acute Sciatica of left side acute Chronic bronchitis chronic Hydronephrosis chronic Prostatic cancer chronic Hypophosphatemia resolved [facility] Work Phone: Evaluation note* Diagnosis Onset Date Resolution Status Closed intertrochanteric fracture of left femur acute Acute blood loss anemia acut e Closed intertrochanteric fracture of left femur acute DVT prophylaxis acute Hematuria acute History of open reduction an d internal fixation (ORIF) procedure acute History of SIADH acute Hyperthyroidism acute Hyponatremia acute Leukopenia acute Sciatica of left side acute Hydronephrosis chronic Hypophosphatemia resolved Physical debility resolved [facility] Work Phone: Evaluation note* Diagnosis Onset Date Resolution Status Closed intertrochanteric fracture of left femur acute Acute blood loss anemia acut e Closed intertrochanteric fracture of left femur acute DVT prophylaxis acute Hematuria acute History of open reduction an d internal fixation (ORIF) procedure acute History of SIADH acute Hyperthyroidism acute Hyponatremia acute Leukopenia acute Sciatica of left side acute Hydronephrosis chronic Hypophosphatemia resolved Physical debility resolved Abnormal results of thyroid function studies acute History of SIADH acute Hyponatremia acute [facility] Work Phone: Evaluation note* Diagnosis Onset Date Resolution Status Fracture of right hip acute [facility] Work Phone: Evaluation note* Diagnosis Onset Date Resolution Status Fracture of right hip acute Acute blood loss anemia acut e Debility acute Decubitus ulcer acute Former smoker acute Fracture of right hip acute History of open reduction an d internal fixation (ORIF) procedure acute History of SIADH acute Hyponatremia acute Leukopenia acute Prostatic cancer acute Vitamin D insufficiency acut e Chronic bronchitis chronic Hydronephrosis chronic [facility] Work Phone: Evaluation note* Diagnosis Onset Date Resolution Status Fracture of right hip acute Acute blood loss anemia acut e Debility acute Decubitus ulcer acute Fracture of right hip acute History of open reduction an d internal fixation (ORIF) procedure acute Leukopenia acute Vitamin D insufficiency acut e Debility acute Decubitus ulcer acute History of open reduction an d internal fixation (ORIF) procedure acute [facility] Work Phone: Evaluation note* Diagnosis Onset Date Resolution Status Fracture of right hip acute Acute blood loss anemia acut e Debility acute Decubitus ulcer acute Fracture of right hip acute History of open reduction an d internal fixation (ORIF) procedure acute Leukopenia acute Debility acute Decubitus ulcer acute History of open reduction an d internal fixation (ORIF) procedure acute Debility acute Decubitus ulcer acute History of open reduction an d internal fixation (ORIF) procedure acute Debility acute Decubitus ulcer acute History of open reduction an d internal fixation (ORIF) procedure acute [facility] Work Phone: Evaluation note* Diagnosis Onset Date Resolution Status Acute blood loss anemia acut e Debility acute Decubitus ulcer acute Fracture of right hip acute History of open reduction an d internal fixation (ORIF) procedure acute Leukopenia acute Debility acute Decubitus ulcer acute History of open reduction an d internal fixation (ORIF) procedure acute Debility acute Decubitus ulcer acute History of open reduction an d internal fixation (ORIF) procedure acute Debility acute Decubitus ulcer acute History of open reduction an d internal fixation (ORIF) procedure acute Pneumonia acute [facility] Work Phone: Evaluation note* Diagnosis Onset Date Resolution Status Debility acute Decubitus ulcer acute History of open reduction an d internal fixation (ORIF) procedure acute Debility acute Decubitus ulcer acute History of open reduction an d internal fixation (ORIF) procedure acute Debility acute Decubitus ulcer acute History of open reduction an d internal fixation (ORIF) procedure acute Pneumonia acute [facility] Work Phone: Evaluation note* Diagnosis Onset Date Resolution Status Debility acute Decubitus ulcer acute History of open reduction an d internal fixation (ORIF) procedure acute Debility acute Decubitus ulcer acute History of open reduction an d internal fixation (ORIF) procedure acute Pneumonia acute [facility] Work Phone: Evaluation note* Diagnosis Onset Date Resolution Status Pneumonia acute [facility] Work Phone: [facility] Work Phone: Hospital Discharge instructions Additional Instructions Follow[facility]up with your doctor at [facility] Work Phone: [facility]: [facility] Work Phone[facility] Work Phone: Hospital Discharge instructions Additional Instructions May remove Vargas Cath on ThursdayOctober 10 Implant Used?: YesWAv[facility] Work Phone: Hospital Discharge instructions Additional Instructions The ciprofloxacin antibiotic that you are currently taking. Start the levofloxacin that is being prescribed tonight. 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 Expl anation Advance Directives and Living Will Advance Directive Response Recorded Date/ Time Advance Directives No April 1:27am Living Will No May 26, 2 022 7:58pm Power of Assistant Credit Manager No May 26, 2021 7:58pm Advance Directive Response Recorded Date/ Time Advance Directives No April 1:27am Living Will No August 26, 2021 1 1:19am Power of Assistant Credit Manager No August 26, 2021 11:19am Advance Directive Response Recorded Date/ Time Advance Directives No April 1:27am Living Will No September 05, 2021 1 :17am Power of Assistant Credit Manager No September 05, 2021 1:17am Advance Directive Response Recorded Date/ Time Advance Directives No April 1:27am Living Will Yes September 05, 2021 3 :52am Power of Assistant Credit Manager No September 05, 2021 3:52am Advance Directive Response Recorded Date/ Time Name of Medical Power of Assistant Credit Manager September 07, 2021 2:31pm Advance Directives No September 09 2:02pm Living Will Yes September 09, 2021 2:02pm Power of Assistant Credit Manager Yes September 09 2:02pm Advance Directive Response Recorded Date/ Time Name of Medical Power of Assistant Credit Manager September 07, 2021 2:31pm Name of Medical Power of Assistant Credit Manager September 27, 2021 10:51am Advance Directives No September 09 2:02pm Living Will Yes September 27, 2021 1 0:51am Power of Assistant Credit Manager Yes September 27, 2021 10:51am Advance Directive Response Recorded Date/ Time Advance Directives No September 09 1:02pm Living Will Yes September 27, 2021 9 :51am Power of Assistant Credit Manager Yes September 27, 2021 9:51am Advance Directive Response Recorded Date/ Time Advance Directives No September 09 1:02pm Living Will No February 23, 2 022 6:07pm Power of Assistant Credit Manager No February 23, 2022 6:07pm Advance Directive Response Recorded Date/ Time Advance Directives No September 09 2:02pm Living Will No February 23, 2 022 7:07pm Power of Assistant Credit Manager No February 23, 2022 7:07pm Advance Directive Response Recorded Date/ Time Advance Directives No September 09 2:02pm Living Will No September 29, 2022 1 0:48am Power of Assistant Credit Manager No September 29, 2022 10:48am Advance Directive Response Recorded Date/ Time Advance Directives No September 09 2:02pm Living Will No November 25 8:25am Power of Assistant Credit Manager No November 25 8:25am Advance Directive Response Recorded Date/ Time Advance Directives No September 09 2:02pm Living Will No December 03 11:34am Power of Assistant Credit Manager No December 03, 2022 11:34am Advance Directive Response Recorded Date/ Time Advance Directives No September 09 1:02pm Living Will No December 03 10:34am Power of Assistant Credit Manager No December 03, 2022 10:34am Advance Directive Response Recorded Date/ Time Advance Directives No September 09 1:02pm Living Will No March 08 7:12pm Power of Assistant Credit Manager No March 08, 2023 7:12pm Advance Directive Response Recorded Date/ Time Advance Directives No September 09 1:02pm Living Will No April 09 9:03pm Power of Assistant Credit Manager No April 09, 2023 9:03pm Advance Directive Response Recorded Date/ Time Advance Directives No September 09 1:02pm Living Will No April 10 2:25am Power of Assistant Credit Manager No April 10, 2023 2:25am Advance Directive Response Recorded Date/ Time Advance Directives No September 09 1:02pm Living Will No April 21 9:50am Power of Assistant Credit Manager No April 21, 2023 9:50am Advance Directive Response Recorded Date/ Time Advance Directives No September 09 2:02pm Living Will No April 21 10:50am Power of Assistant Credit Manager No April 21, 2023 10:50am Advance Directive Response Recorded Date/ Time Living Will No March 09 5:47am Do you have a Healthcare Pow er of Assistant Credit Manager? No March 09, 2024 5:47am Living Will No March 15 12:46am Do you have a Healthcare Pow er of Assistant Credit Manager? No March 15, 2024 12:46am Living Will Yes March 31 8:49pm Do you have a Healthcare Pow er of Assistant Credit Manager? Yes March 31, 2024 8:49pm Name of Medical Power of Assistant Credit Manager Pt. unaware of name March 31, 2024 8:49pm Advance Directives No September 09 2:02pm Advance Directive Response Recorded Date/ Time Advance Directives No September 09 2:02pm Advance Directive Response Recorded Date/ Time Do you have a Healthcare Power of Assistant Credit Manager? No September 02, 2024 1:29pm Advance Directives No September 09 2:02pm Summary Purpose Family History Relationship Condition Age at Onset Recorded Date/T lorenzo Unknown Family History?Cancer Unknown July 1:44pm Family History?Cancer Unknown July 1:44pm Family History?No pe rtinent history Unknown May 18, 2017 5:09pm Relationship Condition Age at Onset Recorded Date/T lorenzo Not Specified Cardiac disease Unknown Relationship Condition Age at Onset Recorded Date/T lorenzo mother Cardiac disease Unknown father Cardiac disease Unknown Chief Complaint and Reason for Visit Chief Complaint cough PULM NODULE Chief Complaint cough PULM NODULE HISTORY OF PROSTATE CANCER Chief Complaint cough PULM NODULE HISTORY OF PROSTATE CANCER WEAKNESS,SOB Chief Complaint cough PULM NODULE HISTORY OF PROSTATE CANCER WEAKNESS,SOB LEFT INTERTROCHANTERIC FRACTURE Reason for Visit Closed intertrochant lucius fracture of left femur Chief Complaint cough PULM NODULE HISTORY OF PROSTATE CANCER WEAKNESS,SOB LEFT INTERTROCHANTERIC FRACTURE LEFT INTERTROCHANTERIC FRACTURE LEFT INTERTROCHANTERIC FRACTURE LEFT INTERTROCHANTERIC FRACTURE Reason for Visit Closed intertrochant lucius fracture of left femur Intertrochanteric fracture Chief Complaint cough PULM NODULE HISTORY OF PROSTATE CANCER WEAKNESS,SOB LEFT INTERTROCHANTERIC FRACTURE LEFT INTERTROCHANTERIC FRACTURE LEFT INTERTROCHANTERIC FRACTURE LEFT INTERTROCHANTERIC FRACTURE HIP FRACTURE DUE TO A FALL HIP FRACTURE HIP FRACTURE HIP FRACTURE HIP FRACTURE DUE TO A FALL HIP FRACTURE HIP FRACTURE HIP FRACTURE Reason for Visit Closed intertrochant lucius fracture of left femur Acute blood loss anemia Closed intertrochanteric fracture of left femur DVT prophylaxis Hematuria History of open reduction and internal fixation (ORIF) procedure History of SIADH Hyperthyroidism Hyponatremia Leukopenia Physical debility Sciatica of left side Chronic bronchitis Hydronephrosis Prostatic cancer Hypophosphatemia Chief Complaint PULM NODULE HISTORY OF PROSTATE CANCER WEAKNESS,SOB LEFT INTERTROCHANTERIC FRACTURE LEFT INTERTROCHANTERIC FRACTURE LEFT INTERTROCHANTERIC FRACTURE LEFT INTERTROCHANTERIC FRACTURE HIP FRACTURE DUE TO A FALL HIP FRACTURE HIP FRACTURE HIP FRACTURE HIP FRACTURE DUE TO A FALL HIP FRACTURE HIP FRACTURE HIP FRACTURE CYSTO RT STENT CHANGE Reason for Visit Closed intertrochant lucius fracture of left femur Acute blood loss anemia Closed intertrochanteric fracture of left femur DVT prophylaxis Hematuria History of open reduction and internal fixation (ORIF) procedure History of SIADH Hyperthyroidism Hyponatremia Leukopenia Sciatica of left side Hydronephrosis Hypophosphatemia Physical debility Chief Complaint HISTORY OF PROSTATE CANCER WEAKNESS,SOB LEFT INTERTROCHANTERIC FRACTURE LEFT INTERTROCHANTERIC FRACTURE LEFT INTERTROCHANTERIC FRACTURE LEFT INTERTROCHANTERIC FRACTURE HIP FRACTURE DUE TO A FALL HIP FRACTURE HIP FRACTURE HIP FRACTURE HIP FRACTURE DUE TO A FALL HIP FRACTURE HIP FRACTURE HIP FRACTURE CYSTO RT STENT CHANGE 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, 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, 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 EORDERS Reason for Visit Closed intertrochant lucius fracture of left femur Acute blood loss anemia Closed intertrochanteric fracture of left femur DVT prophylaxis Hematuria History of open reduction and internal fixation (ORIF) procedure History of SIADH Hyperthyroidism Hyponatremia Leukopenia Sciatica of left side Hydronephrosis Hypophosphatemia Physical debility Abnormal results of thyroid function studies History of SIADH Hyponatremia Chief Complaint WEAKNESS,SOB LEFT INTERTROCHANTERIC FRACTURE LEFT INTERTROCHANTERIC FRACTURE LEFT INTERTROCHANTERIC FRACTURE LEFT INTERTROCHANTERIC FRACTURE HIP FRACTURE DUE TO A FALL HIP FRACTURE HIP FRACTURE HIP FRACTURE HIP FRACTURE DUE TO A FALL HIP FRACTURE HIP FRACTURE HIP FRACTURE CYSTO RT STENT CHANGE 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, 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, 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 EORDERS Reason for Visit Closed intertrochant lucius fracture of left femur Acute blood loss anemia Closed intertrochanteric fracture of left femur DVT prophylaxis Hematuria History of open reduction and internal fixation (ORIF) procedure History of SIADH Hyperthyroidism Hyponatremia Leukopenia Sciatica of left side Hydronephrosis Hypophosphatemia Physical debility Abnormal results of thyroid function studies History of SIADH Hyponatremia Chief Complaint EORDERS PSA Chief Complaint PSA COUGH, COVID +, FATIGUE Chief Complaint PSA COUGH, COVID +, FATIGUE DYSPHAGIA Chief Complaint Solitary pulmonary n odule Chief Complaint Solitary pulmonary n odule CYSTO RT STENT CHANGE CATHETER INSERTION Chief Complaint CYSTO RT STENT BERMAN E CATHETER INSERTION HIP FRACTURE RIGHT INTERTROCHANTERIC FRACTURE RIGHT INTERTROCHANTERIC FRACTURE RIGHT INTERTROCHANTERIC FRACTURE Reason for Visit Fracture of right hi p Chief Complaint CYSTO RT STENT BERMAN E CATHETER INSERTION HIP FRACTURE RIGHT INTERTROCHANTERIC FRACTURE RIGHT INTERTROCHANTERIC FRACTURE RIGHT INTERTROCHANTERIC FRACTURE RIGHT HIP FRACTURE RIGHT HIP FRACTURE RIGHT HIP FRACTURE RIGHT HIP FRACTURE RIGHT HIP FRACTURE RIGHT HIP FRACTURE RIGHT HIP FRACTURE RIGHT HIP FRACTURE Reason for Visit Fracture of right hi p Acute blood loss anemia Debility Decubitus ulcer Former smoker Fracture of right hip History of open reduction and internal fixation (ORIF) procedure History of SIADH Hyponatremia Leukopenia Prostatic cancer Vitamin D insufficiency Chronic bronchitis Hydronephrosis Chief Complaint CYSTO RT STENT BERMAN E CATHETER INSERTION HIP FRACTURE RIGHT INTERTROCHANTERIC FRACTURE RIGHT INTERTROCHANTERIC FRACTURE RIGHT INTERTROCHANTERIC FRACTURE RIGHT HIP FRACTURE RIGHT HIP FRACTURE RIGHT HIP FRACTURE RIGHT HIP FRACTURE RIGHT HIP FRACTURE RIGHT HIP FRACTURE RIGHT HIP FRACTURE RIGHT HIP FRACTURE wound Reason for Visit Fracture of right hi p Acute blood loss anemia Debility Decubitus ulcer Fracture of right hip History of open reduction and internal fixation (ORIF) procedure Leukopenia Vitamin D insufficiency Debility Decubitus ulcer History of open reduction and internal fixation (ORIF) procedure Chief Complaint HIP FRACTURE RIGHT INTERTROCHANTERIC FRACTURE RIGHT INTERTROCHANTERIC FRACTURE RIGHT INTERTROCHANTERIC FRACTURE RIGHT HIP FRACTURE RIGHT HIP FRACTURE RIGHT HIP FRACTURE RIGHT HIP FRACTURE RIGHT HIP FRACTURE RIGHT HIP FRACTURE RIGHT HIP FRACTURE RIGHT HIP FRACTURE wound wound wound Reason for Visit Fracture of right hi p Acute blood loss anemia Debility Decubitus ulcer Fracture of right hip History of open reduction and internal fixation (ORIF) procedure Leukopenia Debility Decubitus ulcer History of open reduction and internal fixation (ORIF) procedure Debility Decubitus ulcer History of open reduction and internal fixation (ORIF) procedure Debility Decubitus ulcer History of open reduction and internal fixation (ORIF) procedure Chief Complaint HIP FRACTURE RIGHT INTERTROCHANTERIC FRACTURE RIGHT INTERTROCHANTERIC FRACTURE RIGHT INTERTROCHANTERIC FRACTURE RIGHT HIP FRACTURE RIGHT HIP FRACTURE RIGHT HIP FRACTURE RIGHT HIP FRACTURE RIGHT HIP FRACTURE RIGHT HIP FRACTURE RIGHT HIP FRACTURE RIGHT HIP FRACTURE wound wound wound wound PREOP SOB Reason for Visit Fracture of right hi p Acute blood loss anemia Debility Decubitus ulcer Fracture of right hip History of open reduction and internal fixation (ORIF) procedure Leukopenia Debility Decubitus ulcer History of open reduction and internal fixation (ORIF) procedure Debility Decubitus ulcer History of open reduction and internal fixation (ORIF) procedure Debility Decubitus ulcer History of open reduction and internal fixation (ORIF) procedure Chief Complaint RIGHT HIP FRACTURE RIGHT HIP FRACTURE wound wound wound wound PREOP SOB PNEUMONIA Reason for Visit Acute blood loss ane enzo Debility Decubitus ulcer Fracture of right hip History of open reduction and internal fixation (ORIF) procedure Leukopenia Debility Decubitus ulcer History of open reduction and internal fixation (ORIF) procedure Debility Decubitus ulcer History of open reduction and internal fixation (ORIF) procedure Debility Decubitus ulcer History of open reduction and internal fixation (ORIF) procedure Pneumonia Chief Complaint wound wound wound wound PREOP SOB PNEUMONIA Pneumonia Pneumonia Pneumonia Pneumonia Reason for Visit Debility Decubitus ulcer History of open reduction and internal fixation (ORIF) procedure Debility Decubitus ulcer History of open reduction and internal fixation (ORIF) procedure Debility Decubitus ulcer History of open reduction and internal fixation (ORIF) procedure Pneumonia Chief Complaint wound wound wound PREOP SOB PNEUMONIA Pneumonia Pneumonia Pneumonia Pneumonia Pneumonia Reason for Visit Debility Decubitus ulcer History of open reduction and internal fixation (ORIF) procedure Debility Decubitus ulcer History of open reduction and internal fixation (ORIF) procedure Pneumonia Chief Complaint PNEUMONIA Pneumonia Pneumonia Pneumonia Pneumonia Pneumonia Reason for Visit Pneumonia Chief Complaint PNEUMONIA Pneumonia Pneumonia Pneumonia Pneumonia Pneumonia COPD Reason for Visit Pneumonia Chief Complaint Admit Date SIRS, FUO March 09, 2024 4:04am SIRS, FUO March 09, 2024 4:07am weakness March 14, 2024 10:24pm FALL March 31, 2024 4: 03pm WOUND April 06, 2024 6: 40am WOUND May 09, 2024 12:16pm WOUND May 23, 2024 9:30am WOUND May 23, 2024 1:17pm WOUND June 01, 2024 8:20 pm WOUND June 08, 2024 3:3 0pm WOUND June 08, 2024 4:0 3pm Reason for Visit Admit Date FUO (fever of unknown origin) February 272023 4:04am Debility May 23, 2024 9:30am Decubitus ulcer of left buttock, stage 2 May 23, 2024 9:30am DVT prophylaxis May 23, 2024 9:30am Malnutrition May 23, 2024 9:30am Cancer June 08, 2024 3:3 0pm Debility June 08, 2024 3:3 0pm Decubitus ulcer of left buttock, stage 2 June 08, 2024 3:30pm DVT prophylaxis June 08, 2024 3:3 0pm H/O hernia repair June 08, 2024 3:3 0pm History of open reduction an d internal fixation (ORIF) procedure June 08, 2024 3:30pm History of renal stent June 08, 2024 3:30pm History of transurethral resection of pr ostate June 08, 2024 3:30pm Hx of fracture of hip June 08, 2024 3 :30pm Hydronephrosis June 08, 2024 3:3 0pm Loss of hearing June 08, 2024 3:3 0pm Malnutrition June 08, 2024 3:3 0pm Prostate cancer June 08, 2024 3:3 0pm Shortness of breath on exertion June 082024 3:30pm Status post appendectomy June 08 3:30pm Chronic bronchitis June 08, 2024 3:3 0pm Chief Complaint Admit Date WOUND May 09, 2024 12:16pm WOUND May 23, 2024 9:30am WOUND May 23, 2024 1:17pm WOUND June 01, 2024 8:20 pm WOUND June 08, 2024 3:3 0pm WOUND June 08, 2024 4:0 3pm WOUND July 11, 2024 3:0 0pm WOUND July 11, 2024 4:3 0pm WOUND August 01, 2024 1:19pm WOUND August 02, 2024 5:35pm Reason for Visit Admit Date Debility May 23, 2024 9:30am Decubitus ulcer of left buttock, stage 2 May 23, 2024 9:30am DVT prophylaxis May 23, 2024 9:30am Malnutrition May 23, 2024 9:30am Cancer June 08, 2024 3:3 0pm Debility June 08, 2024 3:3 0pm Decubitus ulcer of left buttock, stage 2 June 08, 2024 3:30pm DVT prophylaxis June 08, 2024 3:3 0pm H/O hernia repair June 08, 2024 3:3 0pm History of open reduction an d internal fixation (ORIF) procedure June 08, 2024 3:30pm History of renal stent June 08, 2024 3:30pm History of transurethral resection of pr ostate June 08, 2024 3:30pm Hx of fracture of hip June 08, 2024 3 :30pm Hydronephrosis June 08, 2024 3:3 0pm Loss of hearing June 08, 2024 3:3 0pm Malnutrition June 08, 2024 3:3 0pm Prostate cancer June 08, 2024 3:3 0pm Shortness of breath on exertion June 082024 3:30pm Status post appendectomy June 08 3:30pm Chronic bronchitis June 08, 2024 3:3 0pm Debility July 11, 2024 3:0 0pm Decubitus ulcer of left buttock, stage 2 July 11, 2024 3:00pm DVT prophylaxis July 11, 2024 3:0 0pm Malnutrition July 11, 2024 3:0 0pm Debility August 01, 2024 1:19pm Decubitus ulcer of left buttock, stage 2 August 01, 2024 1:19pm DVT prophylaxis August 01, 2024 1:19pm Malnutrition August 01, 2024 1:19pm Chief Complaint Admit Date WOUND May 09, 2024 12:16pm WOUND May 23, 2024 9:30am WOUND May 23, 2024 1:17pm WOUND June 01, 2024 8:20 pm WOUND June 08, 2024 3:3 0pm WOUND June 08, 2024 4:0 3pm WOUND July 11, 2024 3:0 0pm WOUND July 11, 2024 4:3 0pm WOUND August 01, 2024 1:19pm WOUND August 02, 2024 5:35pm WOUND August 29, 2024 2:27p m WOUND August 29, 2024 4:47p m Reason for Visit Admit Date Debility May 23, 2024 9:30am Decubitus ulcer of left buttock, stage 2 May 23, 2024 9:30am DVT prophylaxis May 23, 2024 9:30am Malnutrition May 23, 2024 9:30am Cancer June 08, 2024 3:3 0pm Debility June 08, 2024 3:3 0pm Decubitus ulcer of left buttock, stage 2 June 08, 2024 3:30pm DVT prophylaxis June 08, 2024 3:3 0pm H/O hernia repair June 08, 2024 3:3 0pm History of open reduction an d internal fixation (ORIF) procedure June 08, 2024 3:30pm History of renal stent June 08, 2024 3:30pm History of transurethral resection of pr ostate June 08, 2024 3:30pm Hx of fracture of hip June 08, 2024 3 :30pm Hydronephrosis June 08, 2024 3:3 0pm Loss of hearing June 08, 2024 3:3 0pm Malnutrition June 08, 2024 3:3 0pm Prostate cancer June 08, 2024 3:3 0pm Shortness of breath on exertion June [id number] 3:30pm Status post appendectomy June 08 3:30pm Chronic bronchitis June 08, 2024 3:3 0pm Debility July 11, 2024 3:0 0pm Decubitus ulcer of left buttock, stage 2 July 11, 2024 3:00pm DVT prophylaxis July 11, 2024 3:0 0pm Malnutrition July 11, 2024 3:0 0pm Debility August 01, 2024 1:19pm Decubitus ulcer of left buttock, stage 2 August 01, 2024 1:19pm DVT prophylaxis August 01, 2024 1:19pm Malnutrition August 01, 2024 1:19pm Debility August 29, 2024 2:27p m Decubitus ulcer of left buttock, stage 2 August 29, 2024 2:27pm DVT prophylaxis August 29, 2024 2:27p m Malnutrition August 29, 2024 2:27p m Chief Complaint Admit Date WOUND May 23, 2024 9:30am WOUND May 23, 2024 1:17pm WOUND June 01, 2024 8:20 pm WOUND June 08, 2024 3:3 0pm WOUND June 08, 2024 4:0 3pm WOUND July 11, 2024 3:0 0pm WOUND July 11, 2024 4:3 0pm WOUND August 01, 2024 12:00p m WOUND August 01, 2024 1:19pm WOUND August 29, 2024 2:27p m WOUND August 29, 2024 4:47p m Cysto / stent September 14, 2024 9:11 am Additional Source Comments Reason for Visit (unrecogniz ed section and content) Reason Comments Nail Care Reason Comments Patient Update Care Teams (unrecognized sec tion and content) Team Status: Active Member Role Status Dates Dr. Johnny Shelton DO Primary Care Provider Active Team Status: Inactive Member Role Status Dates Dr. Johnny Shelton DO Primary Care Provider Active Start: May 23, 2024 End: May 27, 2024 Dr. Johnny Shelton DO Referring Provider Active Start: May 23, 2024 End: May 27, 2024 Marineqasim Hubbard 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, 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-C Attending Provider Active Start: May 23, 2024 End: May 27, 2024 Team Status: Active Member Role Status Dates Dr. Johnny Shelton DO Primary Care Provider Active Start: May 23, 2024 Marine E Stevie 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, 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-C Attending Provider Active Start: May 23, 2024 Marine E Stevie 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, 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-C Referring Provider Active Start: May 23, 2024 Mairne E Stevie 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, 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-C Other Provider Active Start: May 23, 2024 Team Status: Active Member Role Status Dates Dr. Johnny Shelton DO Primary Care Provider Active Start: June 01, 2024 Dr. Johnny Shelton DO Referring Provider Active Start: June 01, 2024 Marineduran Hubbard 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, 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-C Other Provider Active Start: June 01, 2024 Dr. Franki Alexander MD Attending Provider Active Start: June 01, 2024 Team Status: Inactive Member Role Status Dates Dr. Johnny Shelton DO Primary Care Provider Active Start: June 08, 2024 End: June 27, 2024 Dr. Johnny Shelton DO Referring Provider Active Start: June 08, 2024 End: June 27, 2024 Marineqasim RoachStevie 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, 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-C Attending Provider Active Start: June 08, 2024 End: June 27, 2024 Team Status: Active Member Role Status Dates Dr. Johnny Shelton DO Primary Care Provider Active Start: June 08, 2024 Marine Loraine RoachStevie 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, 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-C Attending Provider Active Start: June 08, 2024 Marineqasim RoachStevie 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, 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-C Referring Provider Active Start: June 08, 2024 Marine E Stevie 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, 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-C Other Provider Active Start: June 08, 2024 Team Status: Inactive Member Role Status Dates Dr. Johnny Shelton DO Primary Care Provider Active Start: July 11, 2024 End: July 27, 2024 Dr. Johnny Shelton DO Referring Provider Active Start: July 11, 2024 End: July 27, 2024 Dr. Gabriel Roque MD Attending Provider Active Start: July 11, 2024 End: July 27, 2024 Team Status: Active Member Role Status Dates Dr. Johnny Shelton DO Primary Care Provider Active Start: July 11, 2024 Dr. Gabriel Roque MD Attending Provider Active Start: July 11, 2024 Dr. Gabriel Roque MD Referring Provider Active Start: July 11, 2024 Dr. Gabriel Roque MD Other Provider Active Star t: July 11, 2024 Team Status: Active Member Role Status Dates Dr. Johnny Shelton DO Primary Care Provider Active Start: August 01, 2024 Dr. Gabriel Roque MD Attending Provider Active Start: August 01, 2024 Dr. Gabriel Roque MD Referring Provider Active Start: August 01, 2024 Dr. Gabriel Roque MD Other Provider Active Star t: August 01, 2024 Team Status: Inactive Member Role Status Dates Dr. Johnny Shelton DO Primary Care Provider Active Start: August 01, 2024 End: August 27, 2024 Dr. Johnny Shelton DO Referring Provider Active Start: August 01, 2024 End: August 27, 2024 Dr. Gabirel Roque MD Attending Provider Active Start: August 01, 2024 End: August 27, 2024 Team Status: Active Member Role Status Dates Dr. Johnny Shelton DO Primary Care Provider Active Start: August 29, 2024 Dr. Johnny Shelton DO Referring Provider Active Start: August 29, 2024 Dr. Gabriel Roque MD Attending Provider Active Start: August 29, 2024 Team Status: Active Member Role Status Dates Dr. Johnny Shelton DO Primary Care Provider Active Start: August 29, 2024 Dr. Johnny Shelton DO Referring Provider Active Start: August 29, 2024 Dr. Gabriel Roque MD Attending Provider Active Start: August 29, 2024 Dr. Gabriel Roque MD Other Provider Active Star t: August 29, 2024 Team Status: Inactive Member Role Status Dates Dr. Johnny Shelton DO Primary Care Provider Active Start: August 30, 2024 End: August 30, 2024 Zayda Montero Attending Provider Active Start : August 30, 2024 End: August 30, 2024 Dr. Gildardo Hollingsworth MD Referring Provider Active Start: August 30, 2024 End: August 30, 2024 Team Status: Inactive Member Role Status Dates Dr. Johnny Shelton DO Primary Care Provider Active Start: September 14, 2024 End: September 14, 2024 Dr. Gildardo Hollingsworth MD Attending Provider Active Start: September 14, 2024 End: September 14, 2024 Dr. Gildardo Hollingsworth MD Referring Provider Active Start: September 14, 2024 End: September 14, 2024 Team Status: Active Member Role Status Dates Dr. Johnny Shelton DO Primary Care Provider Active Team Status: Active Member Role Status Dates Dr. Johnny Shelton DO Primary Care Provider Active Start: May 09, 2024 Dr. Johnny Shelton DO Referring Provider Active Start: May 09, 2024 Marine Hubbard 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, 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-C Attending Provider Active Start: May 09, 2024 Marine Hubbard 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, 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-C Other Provider Active Start: May 09, 2024 Team Status: Inactive Member Role Status Dates Dr. Johnny Shelton DO Primary Care Provider Active Start: May 23, 2024 End: May 27, 2024 Dr. Johnny Shelton DO Referring Provider Active Start: May 23, 2024 End: May 27, 2024 Marineduran Hubbard 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, 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-C Attending Provider Active Start: May 23, 2024 End: May 27, 2024 Team Status: Active Member Role Status Dates Dr. Johnny Shelton DO Primary Care Provider Active Start: May 23, 2024 Marineduran Hubbard 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, 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-C Attending Provider Active Start: May 23, 2024 Marine Hubbard 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, 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-C Referring Provider Active Start: May 23, 2024 Marineduran Hubbard 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, 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-C Other Provider Active Start: May 23, 2024 Team Status: Active Member Role Status Dates Dr. Johnny Shelton DO Primary Care Provider Active Start: June 01, 2024 Dr. Johnny Shelton DO Referring Provider Active Start: June 01, 2024 Marine Hubbard 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, 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-C Other Provider Active Start: June 01, 2024 Dr. Franki Alexander MD Attending Provider Active Start: June 01, 2024 Team Status: Inactive Member Role Status Dates Dr. Johnny Shelton DO Primary Care Provider Active Start: June 08, 2024 End: June 27, 2024 Dr. Johnny Shelton DO Referring Provider Active Start: June 08, 2024 End: June 27, 2024 Marine Hubbard 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, 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-C Attending Provider Active Start: June 08, 2024 End: June 27, 2024 Team Status: Active Member Role Status Dates Dr. Johnny Shelton DO Primary Care Provider Active Start: June 08, 2024 Marine Hubbard 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, 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-C Attending Provider Active Start: June 08, 2024 Marine Hubbard 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, 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-C Referring Provider Active Start: June 08, 2024 Marine Hubbard 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, 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-C Other Provider Active Start: June 08, 2024 Team Status: Inactive Member Role Status Dates Dr. Johnny Shelton DO Primary Care Provider Active Start: July 11, 2024 End: July 27, 2024 Dr. Johnny Shelton DO Referring Provider Active Start: July 11, 2024 End: July 27, 2024 Dr. Gabriel Roque MD Attending Provider Active Start: July 11, 2024 End: July 27, 2024 Team Status: Active Member Role Status Dates Dr. Johnny Shelton DO Primary Care Provider Active Start: July 11, 2024 Dr. Gabriel Roque MD Attending Provider Active Start: July 11, 2024 Dr. Gabriel Roque MD Referring Provider Active Start: July 11, 2024 Dr. Gabriel Roque MD Other Provider Active Star t: July 11, 2024 Team Status: Inactive Member Role Status Dates Dr. Johnny Shelton DO Primary Care Provider Active Start: August 01, 2024 End: August 27, 2024 Dr. Johnny Shelton DO Referring Provider Active Start: August 01, 2024 End: August 27, 2024 Dr. Gabriel Roque MD Attending Provider Active Start: August 01, 2024 End: August 27, 2024 Team Status: Active Member Role Status Dates Dr. Johnny Shelton DO Primary Care Provider Active Start: August 02, 2024 Dr. Johnny Shelton DO Referring Provider Active Start: August 02, 2024 Dr. Gabriel Roque MD Attending Provider Active Start: August 02, 2024 Dr. Gabriel Roque MD Other Provider Active Star t: August 02, 2024 Director Of Clinical Services Relationship Specialty Start Date End Date No, Physician [facility] PCP - General 11/29/20 Director Of Clinical Services Relationship Specialty Start Date End Date No, Physician [facility] PCP - General 11/29/20 Director Of Clinical Services Relationship Specialty Start Date End Date Iggy Egan III, MD PCP - General Family Practice 09/15/14 Team Status: Active Member Role Status Dates Dr. Iggy Egan III, MD Family Provider Active Dr. Johnny Shelton , DO Primary Care Provider Active Team Status: Inactive Member Role Status Dates Dr. Johnny Shelton DO Primary Care Provider Active Dr. Gabriel Guerrero MD Attending Provider, Referrin g Provider Active Team Status: Inactive Member Role Status Dates Dr. Johnny Shelton DO Primary Care Provider Active Dr. Gildardo Hollingsworth MD Attending Provider Active Team Status: Inactive Member Role Status Dates Dr. Johnny Shelton DO Primary Care Provider Active Dr. Gildardo Hollingsworth MD Attending Provider, Referr ing Provider Active Team Status: Active Member Role Status Dates Dr. Johnny Shelton DO Primary Care Provider Active Dr. Emily Baltazar MD Emergency Provider Active Dr. Johnny Aguillon DO Admit Provider, Attending Provider, Other Provider Active Team Status: Active Member Role Status Dates Dr. Johnny Shelton DO Primary Care Provider Active Dr. Emily Baltazar MD Emergency Provider Active Dr. Johnny Aguillon DO Admit Provider, Attending Provider, Other Provider Active Dr. Hitesh Holguin DO Other Provider Active Team Status: Inactive Member Role Status Dates Dr. Johnny Shelton DO Primary Care Provider Active Dr. Emily Baltazar MD Emergency Provider Active Dr. Johnny Aguillon , DO Admit Provider, Attending Pro vider Active Dr. Hitesh Holguin DO Other Provider Active Team Status: Active Member Role Status Dates Dr. Johnny Shelton DO Primary Care Provider Active Dr. Scott Gauthier , DO Admit Pr ovider, Attending Provider, Other Provider Active Team Status: Active Member Role Status Dates Dr. Johnny Shelton DO Primary Care Provider Active Dr. Scott Gauthier , DO Admit Pr ovider, Attending Provider, Referring Provider, Other Provider Active Team Status: Inactive Member Role Status Dates Dr. Johnny Shelton DO Primary Care Provider Active Dr. Scott Gauthier DO Admit Pr ovider, Attending Provider, Referring Provider Active Team Status: Inactive Member Role Status Dates Dr. Johnny Shelton , DO Primary Care Provider, Referrin g Provider Active Dr. Candice Truong , DO Attending Provider Active Team Status: Active Member Role Status Dates Dr. Johnny Shelton DO Primary Care Provider, Referrin g Provider Active Dr. Candice Truong DO Attending Provider Active Team Status: Inactive Member Role Status Dates Dr. Johnny Shelton DO Primary Care Provider Active Dr. Albert Briscoe MD Emergency Provider Active Team Status: Inactive Member Role Status Dates Dr. Johnny Shelton DO Primary Care Provider Active Dr. Albert Briscoe MD Attending Provider, Emergency Provider Active Team Status: Active Member Role Status Dates Dr. Johnny Shelton DO Primary Care Provider Active Dr. Abhishek Isabel MD Emergency Provider Active Dr. Twila Humphreys MD Admit Provider, Attending Prov ider Active Team Status: Active Member Role Status Dates Dr. Johnny Shelton DO Primary Care Provider Active Dr. Abhishek Isabel MD Emergency Provider Active Dr. Twila Humphreys MD Admit Provider, Other Provider Active Dr. Sung Sharma MD Attending Provider, Other Provi mark Active Team Status: Active Member Role Status Dates Dr. Johnny Shelton DO Primary Care Provider Active Dr. Abhishek Isabel MD Emergency Provider Active Dr. Twila Humphreys MD Admit Provider, Other Provider Active Dr. Sarita Melgar MD Attending Provider, Other Provid er Active Dr. Sung Sharma MD Other Provider Active Team Status: Inactive Member Role Status Dates Dr. Johnny Shelton DO Primary Care Provider Active Dr. Abhishek Isabel MD Emergency Provider Active Dr. Twila Humphreys MD Admit Provider, Other Provider Active Dr. Sarita Melgar MD Attending Provider Active Dr. Sung Sharma MD Other Provider Active Dr. Gabriel Duckworth MD Other Provider Active Team Status: Active Member Role Status Dates Dr. Johnny Shelton DO Primary Care Provider Active Dr. Abhishek Isabel MD Emergency Provider Active Dr. Twila Humphreys MD Admit Provider, Other Provider Active Dr. Sarita Melgar MD Attending Provider, Other Provid er Active Dr. Sung Sharma MD Other Provider Active Dr. Gabriel Duckworth MD Other Provider Active Team Status: Inactive Member Role Status Dates Dr. Johnny Shelton DO Primary Care Provider Active Start: March 09, 2024 End: March 09, 2024 Dr. Abdulaziz Lopes DO Emergency Provider Active Start: March 09, 2024 End: March 09, 2024 Dr. Tiff Langley MD Admit Provider Active St art: March 09, 2024 End: March 09, 2024 Dr. Tiff Lanlgey MD Other Provider Active St art: March 09, 2024 End: March 09, 2024 Dr. Lucius Ulloa DO Attending Provider Active Start: March 09, 2024 End: March 09, 2024 Team Status: Active Member Role Status Dates Dr. Johnny Shelton DO Primary Care Provider Active Start: March 09, 2024 Dr. Abdulaziz Lopes DO Emergency Provider Active Start: March 09, 2024 Dr. Tiff Langley MD Admit Provider Active St art: March 09, 2024 Dr. Tiff Langley MD Attending Provider Active Start: March 09, 2024 Dr. Tiff Langley MD Other Provider Active St art: March 09, 2024 Team Status: Inactive Member Role Status Dates Dr. Johnny Shelton DO Primary Care Provider Active Start: March 14, 2024 End: March 15, 2024 Dr. Vitaliy Malloy DO Attending Provider Active Start : March 14, 2024 End: March 15, 2024 Dr. Vitaliy Malloy DO Emergency Provider Active Start : March 14, 2024 End: March 15, 2024 Team Status: Inactive Member Role Status Dates Dr. Johnny Shelton DO Primary Care Provider Active Start: March 31, 2024 End: March 31, 2024 Dr. Raphael Dee DO Attending Provider Active Start: March 31, 2024 End: March 31, 2024 Dr. Raphael Dee DO Emergency Provider Active Start: March 31, 2024 End: March 31, 2024 Team Status: Inactive Member Role Status Dates Dr. Johnny Shelton DO Primary Care Provider Active Start: April 06, 2024 End: April 29, 2024 Dr. Johnny Shelton DO Referring Provider Active Start: April 06, 2024 End: April 29, 2024 Dr. Pascual Shelby MD Attending Provider Active Start: April 06, 2024 End: April 29, 2024 Team Status: Active Member Role Status Dates Dr. Johnny Shelton DO Primary Care Provider Active Start: June 08, 2024 Dr. Johnny Shelton DO Referring Provider Active Start: June 08, 2024 Marine Hubbard 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, 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-C Attending Provider Active Start: June 08, 2024 Marine Hubbard 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, 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-C Other Provider Active Start: June 08, 2024 Team Status: Active Member Role Status Dates Dr. Johnny Shelton DO Primary Care Provider Active Start: August 29, 2024 Dr. Johnny Shelton DO Referring Provider Active Start: August 29, 2024 Dr. Gabriel Roque MD Attending Provider Active Start: August 29, 2024 Team Status: Active Member Role Status Dates Dr. Johnny Shelton DO Primary Care Provider Active Start: August 29, 2024 Dr. Johnny Shelton DO Referring Provider Active Start: August 29, 2024 Dr. Gabriel Roque MD Attending Provider Active Start: August 29, 2024 Dr. Gabriel Roque MD Other Provider Active Star t: August 29, 2024 Team Status: Inactive Member Role Status Dates Dr. Johnny Shelton DO Primary Care Provider Active Start: August 30, 2024 End: August 30, 2024 Zayda Montero Attending Provider Active Start : August 30, 2024 End: August 30, 2024 Dr. Gildardo Hollingsworth MD Referring Provider Active Start: August 30, 2024 End: August 30, 2024 Team Status: Active Member Role Status Dates Dr. Johnny Shelton DO Primary Care Provider Active Start: August 01, 2024 Dr. Gabriel Roque MD Attending Provider Active Start: August 01, 2024 Dr. Gabriel Roque MD Referring Provider Active Start: August 01, 2024 Dr. Gabriel Roque MD Other Provider Active Star t: August 01, 2024 Team Status: Inactive Member Role Status Dates Dr. Johnny Shelton DO Primary Care Provider Active Start: September 14, 2024 End: September 14, 2024 Dr. Gildardo Hollingsworth MD Attending Provider Active Start: September 14, 2024 End: September 14, 2024 Dr. Gildardo Hollingsworth MD Referring Provider Active Start: September 14, 2024 End: September 14, 2024 (unrecognized sect ion and content) No Status Records FoundNo Status Records FoundNo Status Records Found INFORMATION SOURCE (unrecogn ized section and content) DATE CREATED AUTHOR 03/04/2021 [facility] DATE CREATED AUTHOR AUTHOR'S ORGANIZ ATION 09/04/2021 [facility] DATE CREATED AUTHOR AUTHOR'S ORGANIZ ATION 09/10/2024 [facility] Goals (unrecognized section and content) Goals may be documented in a n alternate sectionGoals may be documented in an alternate sectionGoals may be documented in an alternate sectionGoals may be documented in an alternate sectionGoals may be documented in an alternate sectionGoals may be documented in an alternate sectionGoals may be documented in an alternate sectionGoals may be documented in an alternate sectionGoals may be documented in an alternate sectionGoals may be documented in an alternate sectionGoals may be documented in an alternate section Source Comments (unrecognize d section and content) In the event this informatio n is protected by the Federal Confidentiality of Alcohol and Drug Abuse Patient Records regulations: The Federal rules restrict any use of the information to criminally investigate or prosecute any alcohol or drug abuse patient.[facility] FOR RECORDS PERTAINING TO PATIENTS WHO ARE [...] BE BASED ON THE PRIMARY CLINICAL RECORDS. [employer] [facility]. provides no warranty or guarantee of the accuracy or completeness of information in this document.
[2024-09-14 23:08] VITALS: BP 156/82; PULSE 77; RESP 16; O2SAT 97
--- NOTE | 2024-09-14 23:27 | EX.ED.DYSGE1 ---
HPI History of Present Illness Chief Complaint: Complaint Informant: patient, spouse/S.O. and family Narrative Narrative: Patient is an 88-year-old male with past medical history of prostate cancer who requires right ureteral stent placement roughly every 6 months. He states it has been done multiple times and he typically will get urinary retention afterwards so he now has Vargas catheters placed after the procedure. He states procedure was done today and that there were no complications and his Vargas catheter was placed as he normally does. However he noticed that since returning home there has been minimal urine output. He denies any abdominal pain but has concern that the catheter is either displaced or clogged and secondary to this comes in for evaluation. [facility] Medical History Wears hearing aid Pressure ulcer Ambulates with cane Easy bruising History of broken collarbone Blackout Shortness of breath on exertion Hx of fracture of hip Former smoker Vitamin D insufficiency Abnormal results of thyroid function studies Loss of hearing Wears glasses Wears partial dentures Cancer Alcohol use Arthritis Back pain History of edema History of SIADH Chronic bronchitis Hydronephrosis Former smoker Closed intertrochanteric fracture of left femur Kidney failure Prostate cancer Hyponatremia Prostatic cancer Home Medications ?Medication ?Instructions ?Recorded ?Last Taken ?Type NK 03/31/24 Unknown History Allergy/AdvReac Type Severity Reaction Status Date / Time No Known Allergies Allergy Verified 09/14/24 21:14 Family History Mother Heart disease Father Heart disease Surgical History History of cystoscopy Hx of cystoscopy History of open reduction and internal fixation (ORIF) procedure History of open reduction and internal fixation (ORIF) procedure History of transurethral resection of prostate Status post appendectomy History of renal stent H/O hernia repair Social History household members: spouse and other details: 2 st0ry house. He sleeps downstairs in a recliner. 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 Tobacco: How many years used: 67 how long ago did patient quit smoking: He quit in 2019 alcohol intake: current alcohol intake frequency: holidays/special occasions only substance use type: does not use ROS ROS ED Constitutional Constitutional ED: Denies chills or fever(s) ENT ENT ED: Denies sore throat Cardiovascular Cardiovascular: Denies chest pain Respiratory/Chest Respiratory/Chest: Denies cough or dyspnea Gastrointestinal Gastrointestinal: Denies abdominal pain, diarrhea, nausea or vomiting Genitourinary Genitourinary ED: Reports other Details: Positive decreased urine output Musculoskeletal Musculoskeletal: Denies back pain Integumentary Denies rash Neurologic Neurologic: Denies headache(s) Hematologic/Lymphatic Hematologic/Lymphatic: Denies easy bleeding or easy bruising EXAM Physical Exam Const Vital Signs: 09/14/24 21:09 09/14/24 23:08 Temperature 98.0 F Temperature Source Temporal Pulse Rate 93 77 Respiratory Rate 16 16 Blood Pressure 181/90 H 156/82 H Blood Pressure Mean 120 106 Pulse Ox 97 97 Oxygen Delivery Method Room Air Positive well nourished and well developed General Appearance ED: well developed; Negative for pallor HEENT Reports dry mucous membranes HEENT Narrative: Mucous membranes are mildly dry and tacky Mouth ED: Yes dry mucous membranes Mouth: dry mucous membranes Eyes PERRL and EOMs intact bilaterally General Eye ED: Negative for scleral icterus Neck supple Resp normal respiratory effort and clear to auscultation bilaterally Cardio regular rate and regular rhythm GI normal to inspection, nondistended, normoactive bowel sounds, non-tender, non-distended and no masses GI Narrative: No organomegaly to suggest acute urinary retention No voluntary guarding or rigidity or pulsatile mass Auscultation: normoactive bowel sounds Palpation: soft Narrative: Normal uncircumcised male with Vargas catheter in place at the urethral meatus. There is no blood or leakage of urine from the insertion site. Extremity normal to inspection Neuro oriented x3 and CN's II-XII intact bilaterally Sensorium / Orientation: alert Psych mental status grossly normal Skin no rashes or lesions noted General Skin Exam: Negative for jaundice or pallor MDM MDM MDM Narrative Medical decision making narrative: Patient presented the ER mildly hypertensive otherwise with stable vital. He reported a standard procedure which she has had done multiple times but since catheter insertion minimal urine output. He reports he has had urinary retention from this in the past and is concerned that is happening once again. In order to ensure he does not have clinically significant electrolyte abnormality or acute kidney injury basic blood work was obtained. Labs revealed no clinically significant finding. The patient's Vargas catheter was irrigated and he was given IV fluid. After doing so the patient was now producing urine without leakage at the urethral meatus insertion site. Therefore now the catheter is functioning appropriately and the patient does not have signs of secondary infection or JENNA there is no need for further evaluation and he is otherwise safe for discharge. History & Record Review Discussion w/independent historian: Patient and Family Lab Data Attestation: I reviewed the patient's lab results. Labs: Laboratory Results - last 24 hr 09/14/24 22:23 WBC 6.8 RBC 4.52 L Hgb 13.5 Hct 41.4 MCV 91.6 MCH 29.9 MCHC 32.6 RDW Std Deviation 49.8 H RDW Coeff of Michael 14.7 H Plt Count 186 MPV 9.3 Immature Gran % (Auto) 1.000 H Neut % (Auto) 81.4 H Lymph % (Auto) 9.3 L [place] % (Auto) 7.1 Eos % (Auto) 0.9 Baso % (Auto) 0.3 Absolute Neuts (auto) 5.5 Absolute Lymphs (auto) 0.63 L Nucleated RBC % 0 Sodium 134 Potassium 4.6 Chloride 98 Carbon Dioxide 27.1 Anion Gap 9 BUN 22 H Creatinine 1.03 Estim Creat Clear Calc 34.67 L Est GFR (MDRD) Non-Af 70 BUN/Creatinine Ratio 21.3 H Glucose 91 Calcium 8.8 Discharge Plan Triage Chief Complaint: Complaint ED Provider: Abdulaziz Lopes Dx/Rx/DC Orders Clinical Impression: Vargas catheter problem, Mild dehydration, Prostate cancer, History of renal stent Instructions: ED Dehydration (Adult), ED Vargas Catheter, Care Prescriptions: No Action NK Primary Care Provider: Johnny Shelton Referrals: Gildardo Hollingsworth MD [Med Staff - Active Staff] - Johnny Shelton DO [Primary Care Provider] - Activity Restrictions/Additional Instructions: Please follow-up with your urologist for repeat evaluation. If your catheter stops functioning it may need completely replaced instead of just irrigated and therefore return to the ER for repeat evaluation. Print Language: Cameroonian Disposition Disposition: Home, Self Care
[2024-09-14 23:56] VITALS: BP 154/88; PULSE 77; RESP 17; TEMP 36.7; O2SAT 96
--- NOTE | 2024-09-14 23:57 | ED.RN ---
THIS NURSE TOOK OVER CARE FRO NURSE PILY Yuen. THIS NURSE D/C FLUIDS AND GOT D/C INSTRUCTIONS TO PT AND
--- NOTE | 2024-09-15 00:12 | ED.RN ---
PT WALKED OUT TO THE ED RAMP, TURNED AROUND AND CAME BACK IN SAYING HIS CATHETER WAS LEAKING. URINE WAS LEAKING AROUND THE NECK OF THE 16F CATH. DR GRAY WAS PRESENT AND TOLD THIS NURSE TO JUST EXCHANGE HIS CATH TO A LARGER MAURITIAN. EXCHANGED HIS 16 FR FOR AN 18FR
--- NOTE | 2024-09-15 00:14 | ED.RN ---
VERBAL ORDER TO CHANGE RHODES SIZE FROM 16FR TO 18FR
== END 2024-09-15 00:14 | disposition home or self-care (01) ==
PROVIDERS: Emergency Provider Emergency Medicine; PCP Family Medicine; Visit Provider Emergency Medicine
DX: T83.89XA Other specified complication of genitourinary prosthetic devices, implants and grafts, initial encounter (principal); C61 Malignant neoplasm of prostate; Z87.891 Personal history of nicotine dependence; X58.XXXA Exposure to other specified factors, initial encounter
CPT/HCPCS: 80048; 85025; A4216

== ENCOUNTER 2024-12-07 10:17 | Inpatient (IN) | payer MEDICARE, OTHER, SELFPAY ==
[2021-09-09 14:02] VITALS: BMI 19.5
[2024-12-07] VITALS (22 sets, daily range): BP systolic 90–151; BP diastolic 55–114; PULSE 64–101; RESP 14–28; TEMP 36.4–37.2; O2SAT 91–99; BMI 16.8; BMI 16.2
--- NOTE | 2024-12-07 10:53 | RAD_ITS ---
PROCEDURE: CHEST PA AND LATERAL 12/07/2024 REASON FOR EXAM: COUGH TECHNIQUE: Procedure Code: RADCXR Modality: DX Procedure: CHEST PA AND LATERAL COMPARISON: March 09, 2024 FINDINGS: Hardware: EKG leads are present. Heart: Normal Mediastinum: Unremarkable Lungs: Patchy airspace opacity inferior right upper lobe and airspace disease in the right lower lobe have worsened. Small volume pleural fluid on the right. Bones: Degenerative changes are identified within the thoracic spine. RAD/Chest PA and Lateral IMPRESSION: Worsening airspace disease and/or atelectasis in the inferior right upper lobe and right lower lobe. Small volume pleural fluid. Reading Location: [id number]
--- NOTE | 2024-12-07 10:54 | EDS_ITS ---
HPI HPI - GI History of Present Illness Chief Complaint: Diarrhea Informant: patient and spouse/S.O. Nausea/Vomiting/Emesis GI Symptom: Negative for Nausea or Vomiting Diarrhea/Melena/Hematochezia GI Symptom: Positive for Diarrhea Onset: Weeks Stool Quality: Positive for Loose Severity: Mild Associated Symptoms Associated Symptoms: Negative for Dysuria, Frequency or Hematuria Narrative Narrative: 89-year-old male lives at home with his no CeeNU past medical history currently not on medications. No recent hospitalization nor antibiotic use. Prior appendectomy. States she has had intermittent diarrhea for 2 to 3 weeks. It comes and goes. He is says I feel awful. Denies any melena. No fever. Says had about 50 pound weight loss over the months. He is eating and drinking. Denies any vomiting. Prior similar symptoms: No Recent Illness/Hospitalization: No PFSH PFSH Medical History Wears hearing aid Pressure ulcer Ambulates with cane Easy bruising History of broken collarbone Blackout Shortness of breath on exertion Hx of fracture of hip Former smoker Vitamin D insufficiency Abnormal results of thyroid function studies Loss of hearing Wears glasses Wears partial dentures Cancer Alcohol use Arthritis Back pain History of edema History of SIADH Chronic bronchitis Hydronephrosis Former smoker Closed intertrochanteric fracture of left femur Kidney failure Prostate cancer Hyponatremia Prostatic cancer Home Medications ?Medication ?Instructions ?Recorded ?Last Taken ?Type NK 03/31/24 Unknown History Allergy/AdvReac Type Severity Reaction Status Date / Time No Known Allergies Allergy Verified 12/07/24 10:18 Family History Mother Heart disease Father Heart disease Surgical History History of cystoscopy Hx of cystoscopy History of open reduction and internal fixation (ORIF) procedure History of open reduction and internal fixation (ORIF) procedure History of transurethral resection of prostate Status post appendectomy History of renal stent H/O hernia repair Social History household members: spouse and other details: 2 st0ry house. He sleeps downstairs in a recliner. 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 Tobacco: How many years used: 67 how long ago did patient quit smoking: He quit in 2019 alcohol intake: current alcohol intake frequency: holidays/special occasions only substance use type: does not use ROS ROS ED ROS Narrative Intermittent diarrhea for 2 to 3 weeks Constitutional Constitutional ED: Denies chills or fever(s) ENT ENT ED: Denies ear pain Cardiovascular Cardiovascular: Denies chest pain Respiratory/Chest Respiratory/Chest: Denies cough or dyspnea Gastrointestinal Gastrointestinal: Reports diarrhea; Denies abdominal pain, constipation, melena, nausea or vomiting Genitourinary Genitourinary ED: Denies dysuria or hematuria Musculoskeletal Musculoskeletal: Denies arthralgias or back pain Integumentary Denies abscess Neurologic Neurologic: Denies headache(s) Psychiatric Psychiatric: Denies anxiety Hematologic/Lymphatic Hematologic/Lymphatic: Denies easy bleeding, easy bruising or lymphadenopathy Allergic/Immunologic Allergic/Immunologic ED: Denies mouth swelling, tongue swelling or urticaria EXAM Physical Exam Narrative Exam Narrative: 89-year-old male sitting upright in bed. at bedside. Vital signs are stable afebrile. He does not look septic or toxic. He is in no distress. H EENT exam pupils round react to light. Moist mutes membranes. Neck nontender no JVD. No lymphadenopathy. No meningismus. No trauma to his face or scalp. Back nontender. Lungs clear to auscultation bilaterally. Heart regular rhythm no murmur rate about 70. Chest wall ribs nontender. Abdomen soft nondistended normal bowel sounds without peritoneal signs. No obstruction. No hernia or mass. He is thin. Moving all 4 extremities. Nontender no deformity. Normal range of motion and strength. Neurologically is awake alert. Answering questions following commands. His buttock area there is some breakdown of the skin. There is no deep ulcerations. Const Vital Signs: 12/07/24 10:18 12/07/24 10:31 12/07/24 11:49 Temperature 98.4 F 98.4 F 98.2 F Temperature Source Oral Oral Temporal Pulse Rate 64 101 H 85 Respiratory Rate 18 22 H 22 H Blood Pressure 151/114 H 136/69 H 125/70 H Blood Pressure Mean 126 91 88 Pulse Ox 95 94 93 Oxygen Delivery Method Room Air 12/07/24 12:23 09/10/25 13:00 Temperature 98.2 F 98 F Temperature Source Oral Temporal Pulse Rate 88 86 Respiratory Rate 24 H 23 H Blood Pressure 132/76 H 135/79 H Blood Pressure Mean 94 97 Pulse Ox 94 94 Oxygen Delivery Method Room Air Positive well nourished and well developed; Negative for obese, cachectic, contr actures or unkempt Constitutional Narrative: 7. General Appearance ED: well developed; Negative for unkempt, cachectic, contrac tures or pallor Nutritional Appearance: Negative for cachectic or obese HEENT Reports moist mucous membranes normocephalic and atraumatic Eyes PERRL and EOMs intact bilaterally General Eye ED: Negative for pale conjunctiva or scleral icterus Neck no lymphadenopathy, supple and no JVD Resp normal respiratory effort and clear to auscultation bilaterally Auscultation: Negative for rales, rhonchi, wheezes, diminished lung sounds or other Cardio regular rate, regular rhythm, S1 normal heart sound, S2 normal heart sound and no murmurs GI non-tender, non-distended and no masses Auscultation: normoactive bowel sounds Palpation: soft; Negative for tender, guarding, mass, pulsatile mass or rebound tenderness present Back/Spine no CVA tenderness General Back: Negative for CVA tenderness Cervical Spine: Negative for cervical spine tenderness Thoracic Spine / Upper Back: Negative for thoracic spinal tenderness Lumbar Spine / Lower Back: Negative for lumbar spinal tenderness Extremity full ROM General Extremety ED: Negative for edema or tenderness General Extremity: Negative for edema Neuro CN's II-XII intact bilaterally and moves all extremities Sensorium / Orientation: alert, oriented to person, oriented to place and oriented to time Motor Exam: strength 5/5 throughout Psych mental status grossly normal and thought process normal Appearance: Negative for unkempt Skin No no wounds Skin Narrative: Redness to his buttocks and mild breakdown of the skin. No deep ulcerations. General Skin Exam: Negative for jaundice or pallor Trauma: Negative for abrasion MDM MDM MDM Narrative Medical decision making narrative: 89-year-old male history of intermittent diarrhea 2 to 3 weeks does not sound like C. difficile he says it comes and goes. He has been on no recent antibio tics nor hospitalization. Screening labs to be obtained. There is a concern by some family members that he might be failure to thrive. But he and his stated he is feeding himself at home and dressing himself at home. He is able to walk through the house. Repeat exam no significant change at 2:05 PM. I spoke to the patient and his . He has had chronic COPD smoked for years he quit like 5 years ago. He was told at that time he had a chronic cough. Normally has a cough productive of altman sputum. He said recently has been more yellow. The nurses Paolo walked him he actually walked well but his pulse ox desaturated around 83%. He is not on oxygen at home. He states at home he walks his sit out and take multiple deep breaths and then he can continue. Chest x-ray shows a right pleural effusion cannot rule out a pneumonia. I will speak to the hospitalist about admitting this gentleman. Patient was given a dose of oral prednisone and a DuoNeb aerosol treatment for COPD. History & Record Review Discussion w/independent historian: Patient and Family Additional record(s) reviewed:: Prior inpatient record, Prior outpatient record, Prior ED visit and Prior labs Lab Data Attestation: I reviewed the patient's lab results. Lab results narrative: CBC unremarkable. White count of 6.9. H&H 15 and 44. Platelets 253. Chemistry shows sodium 137. Gap 11. Normal BUN of 18 creatinine 0.7. Glucose 107. Liver enzymes unremarkable other than alk phos of 140. Chest x-ray small right pleural effusion cannot rule out an infiltrate or pneumonia. Labs: Laboratory Results - last 24 hr 12/07/24 10:40 WBC 6.9 RBC 4.86 Hgb 15.0 Hct 44.8 MCV 92.2 MCH 30.9 MCHC 33.5 RDW Std Deviation 43.5 RDW Coeff of Michael 12.8 Plt Count 253 MPV 9.4 Immature Gran % (Auto) 1.000 H Neut % (Auto) 87.6 H Lymph % (Auto) 6.2 L [place] % (Auto) 4.8 Eos % (Auto) 0.1 Baso % (Auto) 0.3 Absolute Neuts (auto) 6.1 Absolute Lymphs (auto) 0.43 L Nucleated RBC % 0 Sodium 137 Potassium 4.5 Chloride 101 Carbon Dioxide 25.7 Anion Gap 11 BUN 18 Creatinine 0.78 Estim Creat Clear Calc 45.86 L Est GFR (MDRD) Non-Af 85 BUN/Creatinine Ratio 22.7 H Glucose 107 H Calcium 8.6 Total Bilirubin 0.40 AST 22 ALT 9 Alkaline Phosphatase 140 H Total Protein 7.2 Albumin 3.5 Globulin 3.7 Albumin/Globulin Ratio 0.9 Radiography Chest X-Ray - ED: 2 View, Read by ED Physician, Read by Radiologist, Heart, Mediastinum, Bony Structures, Chronic Changes, Right Infiltrate (Cannot rule out right sided infiltrate.) and Right Effusion Diagnostic Testing: Clinical Impression(s) from Imaging Studies Chest X-Ray 12/07/24 10:53 IMPRESSION: Worsening airspace disease and/or atelectasis in the inferior right upper lobe and right lower lobe. Small volume pleural fluid. Reading Location: [id number] Discharge Plan Dx/Rx/DC Orders Clinical Impression: Diarrhea, Generalized weakness, COPD exacerbation, Hypoxia, Pleural effusion on right Disposition Disposition: Acute Care Hospital [facility]
[2024-12-07] MEDS: 0.9% Normal Saline (1000mL) 1,000 ML 1000 ML IV (11:02)
[2024-12-07 11:08] LABS: Hematocrit 44.8 % (40-54); Hemoglobin 15.0 g/dL (13.0-16.5); Immature Granulocytes Count 0.070 X10^3/uL (0.0-0.0); Mean Corp Hgb Conc 33.5 g/dL (32-36); Mean Corpuscular Volume 92.2 fL (80-94); Mean Platelet Vol. 9.4 fl (6.2-12.0); NRBC Flagged by Analyzer 0 % (0-5); POSITIVE DIFFERENTIAL YES; Platelet Count 253 K/mm3 (150-450); RBC Distribution Width CV 12.8 % (11.6-14.6); RBC Distribution Width SD 43.5 fl (35.1-43.9); Red Blood Count 4.86 M/mm3 (4.6-6.2); White Blood Count 6.9 K/mm3 (4.4-11.0)
[2024-12-07 12:06] LABS: AST(SGOT) 22 U/L (<=37); Alanine Aminotransfer ALT/SGPT 9 U/L (<=46); Albumin, Serum 3.5 g/dL (3.4-4.8); Alkaline Phosphatase 140 U/L (40-129); Anion Gap 11 (5-15); BUN 18 mg/dL (4-19); BUN/Creat Ratio 22.7 RATIO (10-20); Calcium,Total 8.6 mg/dL (7.6-11.0); Carbon Dioxide 25.7 mmol/L (21.0-32.0); Chloride 101 mmol/L (98-108); Estimated Creatinine Clearance 45.86 ml/min (50-250); Globulin 3.7 g/dL (2.2-4.2); Glucose 107 mg/dL (70-99); Potassium 4.5 mmol/L (3.3-5.1)
--- NOTE | 2024-12-07 15:10 | CT_ITS ---
PROCEDURE: ABDOMEN/PELVIS W IV CONT ONLY 12/07/2024 REASON FOR EXAM: WEIGHT LOSS. PROSTATE CA HX TECHNIQUE: Procedure Code: [id number] Modality: CT Procedure: ABDOMEN/PELVIS W IV CONT ONLY Coronal and Sagittal reconstruction series were provided. CONTRAST: Information not supplied One or more dose reduction techniques were used (e.g., Automated exposure control, adjustment of the mA and/or kV according to patient size, use of iterative reconstruction technique. RADIATION DOSE SUMMARY: CTDlvol: 22 mGy DLP: 551 mGycm FINDINGS: There is a [id number] right-sided pleural effusion with adjacent airspace disease including an area of low-density within the parenchyma. Can not exclude superimposed pneumonia. No liver masses are seen. Dependent gallstones are present. Normal spleen. Pancreatic tail, head and body are grossly unremarkable. Left renal cyst is present. No left-sided hydronephrosis. Slight right renal atrophy with a right-sided nephroureteral stent in place. Prior internal fixation of bilateral hip fractures. No free-fluid. Moderate stool within the rectosigmoid. Mild small-bowel distention. Mild ectasia of the infrarenal abdominal aorta which measures 2.3 cm. Numerous chronic lumbar compression fractures without abnormal lucent or blastic lesions. CT/Abdomen/Pelvis W IV Cont ONLY IMPRESSION: Prominent right-sided pleural effusion with adjacent airspace disease. Choleli thiasis. Right-sided nephroureteral stent. Reading [facility]
--- NOTE | 2024-12-07 15:10 | CT_ITS ---
PROCEDURE: CTA CHEST W/WO CONTRAST 12/07/2024 REASON FOR EXAM: HYPOXIA.EFFUSION. ?? PNEUMONIA OR MASS TECHNIQUE: Procedure Code: [id number] Modality: CT Procedure: CTA CHEST W/WO CONTRAST Multiplanar Sagittal and Coronal images were obtained. 3D post processing was performed CONTRAST: Isovue 370 VOLUME: 100 mL One or more dose reduction techniques were used (e.g., Automated exposure control, adjustment of the mA and/or kV according to patient size, use of iterative reconstruction technique). RADIATION DOSE SUMMARY: CTDlvol: 7.6 mGy DLP: 551.67 mGycm COMPARISON: Prior chest radiograph done earlier in the day. FINDINGS: Hardware: None Lymph nodes: No suspicious lymph nodes are seen. Heart: The heart is nonenlarged. Coronary artery calcification. Thoracic Aorta: No thoracic aortic aneurysm or dissection. Atherosclerotic calcification of the thoracic aorta. Pulmonary Vessels: Well opacified. No evidence of pulmonary embolism. Lungs and Airways: Small to moderate-sized right pleural effusion with infiltration in the superior aspect of the right lower lobe. Can not rule out lung nodules. Repeat examination following treatment. Small amount of fluid is also seen in the right major fissure. Mild increased markings at the left lung base suggestive of 2 cm nodule in the posterior medial segment of the left lower lobe. Upper Abdomen: Multiple small gallstones. Small left renal cyst. Bones: Bone windows are unremarkable. Diffuse osteopenia with loss of height of mid and lower dorsal vertebrae. CT/CTA Chest W/WO Contrast IMPRESSION: Small to moderate-sized right pleural effusion with atelectasis and infiltrate in the right lower lobe. Nodular densities in the left lower lobe. Repeat examination following treatment recommended. Small gallstones. Reading Location: [id number]
--- NOTE | 2024-12-07 15:27 | CASEMGMT ---
Care Management Face to Face with and ROBIN for initial transition planning/care coordination assessment in the ED as patient was out of room for testing.? 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 ?Patients family willing to participate in assessment and is able to answer all questions appropriately.? Care providers, pharmacy, and demographics verified. Admitting Diagnosis: Diarrhea Other diagnosis history: ?arthritis, kidney failure, hyponatremia, prostatic cancer PCP: ?Cat Specialists: ?none [facility]erred Pharmacy: [facility] Insurance: ?Medicare Prescription Benefit: ?yes Living Will/HPOA: ?thinks? they have one completed LNOK: ? Living Arrangements: patient lives with in a two story home, 5 stairs to enter.? They do not use the upstairs.? reports that patient is independent with ADLs and that she completed IADLs. Wifes ROBIN states he feels they both need more assistance in the home.? Transportation: ? drives DME: ?cane, walker, grab bar in bathroom, shower chair, blood pressure cuff H[facility]: ?[facility] SNF/Rehab: ?None Community Resources: ?None Behavioral Health History: None Patient goals: Patient states patient wishes to discharge home.? Patient denies any further needs or concerns at this time. Disposition Plan: admission to acute; RN CM/SW to follow for discharge planning needs that may arise. Unique Mace, MATERIAL YARD CLERK, SNAP SHEARER
--- NOTE | 2024-12-07 17:00 | ED.RN ---
RADIOLOGY CALLED FOR OUTSTANDING CT RESULTS. RESPONSE THEY JUST GOT A BUNCH ALL AT ONCE, THEY'RE WORKING THROUGH IT
--- NOTE | 2024-12-07 18:18 | PCM.HP.STD ---
HPI - General General Date of Admission: 12/07/24 Date of Service: 12/07/24 Chief Complaint: Failure to thrive HPI Narrative ELIESER VILLEGAS, is a 89 M who presented to [facility] ED on 12/07/2024 with failure to thrive. Patient lives at home with his . Medical history significant for prostate cancer with chronic ureteral stent, malnutrition, and chronic sacral wound. Patient reports an approximate 40 to 50 pound weight loss over the past several months. He attributes this primarily to decreased appetite and ongoing bowel issues. States that he has had more frequent diarrhea over the past 2 to 3 weeks but has had intermittent diarrhea for the past few months. He denies any nausea or vomiting. Notes that he did try to start boost drinks a few months ago but had worsening diarrhea with this so he stopped drinking them. He has had worsening generalized weakness over these past few months as well. States he is still able to complete his ADLs at home. Over the past few days now he has had right sided chest discomfort. Denies any cough or sputum production. Denies any fevers or chills. In the ED he was normotensive, in normal sinus rhythm and his saturations in the low to mid 90s on room air at rest. CBC with WBC count 6.9 but 87% neutrophils noted. CMP was benign. CTA chest abdomen pelvis showed a small to moderate right-sided pleural effusion with atelectasis and infiltrate in the right lower lobe, nodular densities in the left lower lobe, cholelithiasis without evidence of cholecystitis, and a prior right sided nephroureteral stent noted. Given concern for failure to thrive and abnormal chest imaging, hospitalist was contacted for admission. I saw the patient at bedside in the ED, no family was present. Patient was fatigued appearing but was mentally sharp and answering questions appropriately for me. He noted that he feels like given his age he is slowing down. His main concern is the ongoing diarrhea that he has been having. Notes that when he eats, it seems like food seems to go through fairly quickly and leads to loose bowel movements. He does report right-sided chest pain but denies any pneumonia type symptoms at this time. No other acute concerns currently. Will be admitted for further management. [facility] Medical History Wears hearing aid Pressure ulcer Ambulates with cane Easy bruising History of broken collarbone Blackout Shortness of breath on exertion Hx of fracture of hip Former smoker Vitamin D insufficiency Abnormal results of thyroid function studies Loss of hearing Wears glasses Wears partial dentures Cancer Alcohol use Arthritis Back pain History of edema History of SIADH Chronic bronchitis Hydronephrosis Former smoker Closed intertrochanteric fracture of left femur Kidney failure Prostate cancer Hyponatremia Prostatic cancer Home Medications ?Medication ?Instructions ?Recorded ?Last Taken ?Type NK 03/31/24 Unknown History Allergy/AdvReac Type Severity Reaction Status Date / Time No Known Allergies Allergy Verified 12/07/24 10:18 Family History Mother Heart disease Father Heart disease Surgical History History of cystoscopy Hx of cystoscopy History of open reduction and internal fixation (ORIF) procedure History of open reduction and internal fixation (ORIF) procedure History of transurethral resection of prostate Status post appendectomy History of renal stent H/O hernia repair Social History household members: spouse and other details: 2 st0ry house. He sleeps downstairs in a recliner. 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 Tobacco: How many years used: 67 how long ago did patient quit smoking: He quit in 2019 alcohol intake: current alcohol intake frequency: holidays/special occasions only substance use type: does not use ROS Constitutional Constitutional: Reports fatigue and weakness; Denies chills or fever(s) Eyes Eyes: Denies change in vision Cardiovascular Cardiovascular: Reports chest pain; Denies dyspnea on exertion, edema, lightheadedness or palpitations Respiratory/Chest Respiratory/Chest: Denies cough, productive cough, shortness of breath at rest, shortness of breath with exertion or wheezing Gastrointestinal Gastrointestinal: Reports diarrhea; Denies abdominal pain, constipation, nausea or vomiting Genitourinary Genitourinary: Denies dysuria Musculoskeletal Musculoskeletal: Denies arthralgias or myalgias Neurologic Neurologic: Denies dizziness, focal weakness or headache(s) Vital Signs Vital Signs Vital Signs: 12/07/24 10:18 12/07/24 10:31 12/07/24 11:49 Temperature 98.4 F 98.4 F 98.2 F Temperature Source Oral Oral Temporal Pulse Rate 64 101 H 85 Respiratory Rate 18 22 H 22 H Respiratory Pattern Blood Pressure 151/114 H 136/69 H 125/70 H Blood Pressure Mean 126 91 88 Pulse Ox 95 94 93 Oxygen Delivery Method Room Air 12/07/24 12:23 12/07/24 13:00 12/07/24 13:55 Temperature 98.2 F 98 F Temperature Source Oral Temporal Pulse Rate 88 86 84 Respiratory Rate 24 H 23 H 25 H Respiratory Pattern Blood Pressure 132/76 H 135/79 H Blood Pressure Mean 94 97 Pulse Ox 94 94 93 Oxygen Delivery Method Room Air 12/07/24 14:00 12/07/24 14:19 12/07/24 14:20 Temperature 98 F Temperature Source Temporal Pulse Rate 89 82 80 Respiratory Rate 18 16 14 Respiratory Pattern Normal Blood Pressure 133/71 H Blood Pressure Mean 91 Pulse Ox 93 99 Oxygen Delivery Method 12/07/24 14:36 12/07/24 15:00 12/07/24 16:00 Temperature 98 F 98.3 F Temperature Source Oral Pulse Rate 80 85 100 Respiratory Rate 14 23 H 22 H Respiratory Pattern Blood Pressure 133/71 H 135/79 H Blood Pressure Mean 91 97 Pulse Ox 99 98 Oxygen Delivery Method Room Air 12/07/24 16:00 12/07/24 16:56 12/07/24 17:00 Temperature 98.3 F Temperature Source Oral Pulse Rate 91 97 92 Respiratory Rate 28 H 19 H 19 H Respiratory Pattern Blood Pressure 114/66 90/55 L Blood Pressure Mean 78 66 Pulse Ox 93 Oxygen Delivery Method Room Air 12/07/24 17:00 12/07/24 17:15 12/07/24 17:30 Temperature Temperature Source Pulse Rate 80 87 80 Respiratory Rate 20 H 21 H 22 H Respiratory Pattern Blood Pressure 90/55 L 104/61 110/69 Blood Pressure Mean 64 74 82 Pulse Ox 92 94 94 Oxygen Delivery Method Room Air 12/07/24 17:45 12/07/24 18:00 Temperature Temperature Source Pulse Rate 87 Respiratory Rate 20 H Respiratory Pattern Blood Pressure 112/66 127/69 H Blood Pressure Mean 81 84 Pulse Ox 93 Oxygen Delivery Method Room Air Weight Weight: 51.8 kg Body Mass Index (BMI) 16.8 Physical Exam Const alert, oriented x3 and no apparent distress Constitutional Narrative: Elderly male, thin and cachectic appearing, mildly fatigued appearing but otherwise mentally sharp, laying back fairly comfortably in bed, answering questions appropriately, in no acute distress. General Appearance: cooperative and comfortable HEENT normocephalic, head/scalp atraumatic, hearing grossly normal bilaterally, nasal mucous membranes and turbinates normal and moist oral mucous membranes Eyes PERRL, EOMs intact bilaterally and conjunctivae normal Neck full ROM Chest inspection of chest normal Resp normal respiratory effort and no use of accessory muscles Resp Narrative: Breathing comfortably on room air at rest. Diminished breath sounds in right lung base with mild crackles noted. Otherwise good air movement throughout with no wheezing noted. Cardio regular rate, regular rhythm, no murmurs and peripheral pulses 2+ throughout GI normal to inspection, nondistended, normoactive bowel sounds, soft to palpation, non-tender and non-distended Back/Spine normal ROM Extremity normal to inspection, full ROM and no pedal edema Skin no rashes or lesions noted Neuro moves all extremities and no focal motor deficits Psych mental status grossly normal Results Lab / Micro Data 12/07/24 10:40 12/07/24 10:40 Labs: Laboratory Results - last 24 hr 12/07/24 10:40: WBC 6.9, RBC 4.86, Hgb 15.0, Hct 44.8, MCV 92.2, MCH 30.9, MCHC 33.5, RDW Std Deviation 43.5, RDW Coeff of Michael 12.8, Plt Count 253, MPV 9.4, Immature Gran % (Auto) 1.000 H, Neut % (Auto) 87.6 H, Lymph % (Auto) 6.2 L, [place] % (Auto) 4.8, Eos % (Auto) 0.1, Baso % (Auto) 0.3, Absolute Neuts (auto) 6.1, Absolute Lymphs (auto) 0.43 L, Nucleated RBC % 0, Sodium 137, Potassium 4.5, Chloride 101, Carbon Dioxide 25.7, Anion Gap 11, BUN 18, Creatinine 0.78, Estim Creat Clear Calc 45.86 L, Est GFR (MDRD) Non-Af 85, BUN/Creatinine Ratio 22.7 H, Glucose 107 H, Calcium 8.6, Total Bilirubin 0.40, AST 22, ALT 9, Alkaline Phosphatase 140 H, Total Protein 7.2, Albumin 3.5, Globulin 3.7, Albumin/Globulin Ratio 0.9 Imaging Radiology Impression Chest X-Ray 12/07/24 10:53 IMPRESSION: Worsening airspace disease and/or atelectasis in the inferior right upper lobe and right lower lobe. Small volume pleural fluid. Reading Location: [id number] Abdomen/Pelvis CT 12/07/24 15:10 IMPRESSION: Prominent right-sided pleural effusion with adjacent airspace disease. Cholelithiasis. Right-sided nephroureteral stent. Reading [facility] Chest CTA 12/07/24 15:10 IMPRESSION: Small to moderate-sized right pleural effusion with atelectasis and infiltrate in the right lower lobe. Nodular densities in the left lower lobe. Repeat examination following treatment recommended. Small gallstones. Reading Location: [id number] Assessment & Plan Assessment/Plan (1) Failure to thrive: (2) Pleural effusion on right: PLAN: Plan Patient is an 89-year-old male who presented [facility] ED on 12/07/2024 with failure to thrive. 1. Adult failure to thrive ? Admit under inpatient status to [facility]. PT/OT/case management consulted. Nutrition consulted. Patient has been hospitalized here in the past, most recently in February 2024. Was noted then to have chronic malnutrition and chronic sacral wounds as below. He has required home health care in the last several months. Unclear to what degree his issues on this admission are acute or chronic. Appreciate therapy and nutrition recommendations. 2. Right sided pleural effusion with concern for community-acquired pneumonia ? CTA chest on admit showed a small to moderate right pleural effusion with atelectasis and infiltrate in the right lower lobe, as well as nodule densities in the left lower lobe of unclear etiology. Patient afebrile, no leukocytosis noted and no infectious symptoms noted. Orders placed for diagnostic and therapeutic thoracentesis for further evaluation. Will treat with IV ceftriaxone and azithromycin for now. ED physician had concern for COPD exacerbation but on exam, patient has no wheezing noted and is breathing comfortably on room air. Will order scheduled DuoNebs every 6 hours while awake but no need for steroids at this time. 3. Diarrhea ? Patient reports intermittent diarrhea for the past several weeks. Unclear etiology. CT abdomen pelvis with no concerning findings noted. Will treat symptomatically at this point. Chronic medical conditions: ? Chronic COPD: Stable on room air at rest in the ED and no wheezing on exam noted, not in acute exacerbation. Okay to treat with scheduled DuoNebs as above while inpatient with no need for steroids. ? History of prostate cancer s/p TURP and chronic ureteral stent placement: Follows with Dr. Hollingsworth. Most recent right sided stent change with retrograde pyelogram was done in August with no new findings noted. Continue outpatient follow-up. ? Chronic sacral wound: Stable. Will hold on wound care consult at this time. ? History of right hip fracture s/p ORIF repair DVT prophylaxis: Lovenox CODE STATUS: DNR CCA, DNI Expect disposition: TBD Total clinical time spent by myself addressing the patient's medical issues, reviewing all the data, and collaborating with patient's care team: 78 minutes. Charges/Coding Visit Charges Inpatient E&M: 58003 Init Hosp L3
[2024-12-07] MEDS: Ceftriaxone 2 GM in 0.9% Normal Saline (50mL MB+) 50 ML IV (20:05)
[2024-12-07 20:34] LABS: LDH 193 U/L (87-241)
[2024-12-07] MEDS: Azithromycin 500 MG in 0.9% Normal Saline (250mL Bag) 250 ML 255 MG IV (20:49)
[2024-12-08] VITALS (9 sets, daily range): BP systolic 107–124; BP diastolic 56–70; PULSE 74–104; RESP 16–26; TEMP 36.8–37.4; O2SAT 93–100
[2024-12-08 05:06] LABS: Hematocrit 36.6 % (40-54); Hemoglobin 12.2 g/dL (13.0-16.5); Mean Corp Hgb Conc 33.3 g/dL (32-36); Mean Corpuscular Volume 91.7 fL (80-94); Mean Platelet Vol. 8.9 fl (6.2-12.0); Platelet Count 244 K/mm3 (150-450); RBC Distribution Width CV 12.9 % (11.6-14.6); RBC Distribution Width SD 43.3 fl (35.1-43.9); Red Blood Count 3.99 M/mm3 (4.6-6.2); White Blood Count 10.4 K/mm3 (4.4-11.0)
[2024-12-08 05:47] LABS: Anion Gap 9 (5-15); BUN 16 mg/dL (4-19); BUN/Creat Ratio 20.7 RATIO (10-20); Calcium,Total 8.1 mg/dL (7.6-11.0); Carbon Dioxide 24.2 mmol/L (21.0-32.0); Chloride 102 mmol/L (98-108); Estimated Creatinine Clearance 45.33 ml/min (50-250); Glucose 145 mg/dL (70-99); Potassium 4.2 mmol/L (3.3-5.1)
--- NOTE | 2024-12-08 06:00 | US_ITS ---
PROCEDURE: THORACENTESIS W US 12/08/2024 REASON FOR EXAM: MODERATE R PLEURAL EFFUSION TECHNIQUE: Right THORACENTESIS W US FINDINGS: Initial images of the right pleural space show extensive loculation of the pleural fluid collection throughout visualized areas, via a posterior approach. Some areas show the likely presence of debris, as well. Procedure: Following informed consent, and using standard sterile technique, an ultrasound- guided right thoracentesis was performed via a posterolateral approach. 2% lidocaine local anesthesia was followed by placement of a 5 Telugu Yueh catheter into the right pleural fluid collection. Approximately 390 mL of cloudy yellow fluid was successfully removed. No complication was encountered, in the patient left the department in good condition without significant complaint. US/Thoracentesis W US IMPRESSION: Successful ultrasound-guided right thoracentesis. Laboratory results pending. Reading Location: [place] [address]
--- NOTE | 2024-12-08 08:00 | PN.HOSP_ITS ---
Reason for Visit Chief Complaint: Failure to thrive Subjective Subjective Feels weak. Coughing up some phlegm. Objective Data Objective Data Vital Signs: Vital Signs Temp Pulse Resp BP Pulse Ox O2 Del Method 36.8 C 86 18 109/63 95 Room Air 12/08/24 05:17 12/08/24 07:44 12/08/24 07:44 12/08/24 05:17 12/08/24 07:44 12/08/24 07:44 Oxygen Delivery Method Room Air Weight: 51.2 kg Body Mass Index (BMI) 16.2 Intake & Output: Intake and Output for Last 24 Hours 12/06/24 12/07/24 12/08/24 23:59 23:59 23:59 Intake Total 1305 / 1505 400 / 400 Balance 1305 / 1505 400 / 400 Lab / Micro Data 12/08/24 04:42 12/08/24 04:42 Labs: Laboratory Results - last 24 hr 12/07/24 10:40: WBC 6.9, RBC 4.86, Hgb 15.0, Hct 44.8, MCV 92.2, MCH 30.9, MCHC 33.5, RDW Std Deviation 43.5, RDW Coeff of Michael 12.8, Plt Count 253, MPV 9.4, I mmature Gran % (Auto) 1.000 H, Neut % (Auto) 87.6 H, Lymph % (Auto) 6.2 L, [place] % (Auto) 4.8, Eos % (Auto) 0.1, Baso % (Auto) 0.3, Absolute Neuts (auto) 6.1, A bsolute Lymphs (auto) 0.43 L, Nucleated RBC % 0, Sodium 137, Potassium 4.5, Chloride 101, Carbon Dioxide 25.7, Anion Gap 11, BUN 18, Creatinine 0.78, Estim Creat Clear Calc 45.86 L, Est GFR (MDRD) Non-Af 85, BUN/Creatinine Ratio 22.7 H, Glucose 107 H, Calcium 8.6, Total Bilirubin 0.40, AST 22, ALT 9, Alkaline Phosphatase 140 H, Lactate Dehydrogenase 193, Total Protein 7.2, Albumin 3.5, Globulin 3.7, Albumin/Globulin Ratio 0.9 12/08/24 04:42: WBC 10.4, RBC 3.99 L, Hgb 12.2 L, Hct 36.6 L, MCV 91.7, MCH 30.6, MCHC 33.3, RDW Std Deviation 43.3, RDW Coeff of Michael 12.9, Plt Count 244, MPV 8.9, Sodium 136, Potassium 4.2, Chloride 102, Carbon Dioxide 24.2, Anion Gap 9, BUN 16, Creatinine 0.78, Estim Creat Clear Calc 45.33 L, Est GFR (MDRD) Non- Af 85, BUN/Creatinine Ratio 20.7 H, Glucose 145 H, Calcium 8.1 Micro: Microbiology 12/07/24 21:45 Stool Enteric Bacteriology - Final 12/07/24 21:45 Stool Clostridioides difficile (PCR) - Final Radiography Diagnostic Testing: Radiology Impression Chest X-Ray 12/07/24 10:53 IMPRESSION: Worsening airspace disease and/or atelectasis in the inferior right upper lobe and right lower lobe. Small volume pleural fluid. Reading Location: [id number] Abdomen/Pelvis CT 12/07/24 15:10 IMPRESSION: Prominent right-sided pleural effusion with adjacent airspace disease. Cholelithiasis. Right-sided nephroureteral stent. Reading Location: [facility] Chest CTA 12/07/24 15:10 IMPRESSION: Small to moderate-sized right pleural effusion with atelectasis and infiltrate in the right lower lobe. Nodular densities in the left lower lobe. Repeat examination following treatment recommended. Small gallstones. Reading Location: [id number] Physical Exam Const alert and no apparent distress HEENT head/scalp atraumatic and moist oral mucous membranes Resp normal respiratory effort and no retractions Resp Narrative: diminished in the bases bilaterally. Cardio regular rate, regular rhythm, S1 normal heart sound and S2 normal heart sound Neuro Sensorium / Orientation: awake and alert Assessment & Plan Assessment/Plan (1) Pleural effusion on right: PLAN: Unclear type. No obvious CHF findings on CT scan. Concern for possible exudative process including pneumonia or even malignancy. Thoracentesis ordered with Cx, cytology, additional labs ordered. On antibiotics with ceftriaxone and azithromycin. Check sputum culture. Check antigens for receptor coccus and Legionella. (2) Failure to thrive: PLAN: PT OT evaluate and treat. Case management to assist on disposition. Stool studies negative for enteric panel as well as C. difficile. PLAN: Plan Chronic medical conditions: * Chronic COPD: Stable on room air at rest in the ED and no wheezing on exam noted, not in acute exacerbation. Okay to treat with scheduled DuoNebs as above while inpatient with no need for steroids. * History of prostate cancer s/p TURP and chronic ureteral stent placement: Follows with Dr. Hollingsworth. Most recent right sided stent change with retrograde pyelogram was done in August with no new findings noted. Continue outpatient follow-up. * Chronic sacral wound: Stable. Will hold on wound care consult at this time. * History of right hip fracture s/p ORIF repair VTE prophylaxis: LMWH. DW patient's son-in-law at bedside. Charges/Coding Visit Charges Inpatient E&M: 42289 Subs Hosp L2
[2024-12-08] MEDS: Ceftriaxone 2 GM in 0.9% Normal Saline (50mL MB+) 50 ML IV (09:29)
[2024-12-08] MEDS: Azithromycin 500 MG in 0.9% Normal Saline (250mL Bag) 250 ML 255 MG IV (10:19)
--- NOTE | 2024-12-08 13:16 | NURSING ---
Pt to radiology via bed for thoracentesis.
[2024-12-08] MEDS: Lidocaine 2% (20 ml mdv) 20 ML Vial INFILT (13:35)
--- NOTE | 2024-12-08 13:35 | FLU_PTH ---
PATIENT: ELIESER VILLEGAS LOC: MS3 U#:[id number] AGE/SX: 89/M [place] [facility] [place]07[facility]: Dr. Chet Ulloa DO : 1935 BED: 1 DIS: 12/11/2024 SPEC #: [id number] RECD: 12/08/24 14:03 STATUS: CASSIE REAnum #: [id number] SHILOH: 12/08/24 13:[address]: Chet Ulloa DEPT: CYTOLOGY RECD BY: Abdon Morgan ENTERED: 12/09/24 09:50 SP TYPE: Fluid OTHR DR: Dr. Baudilio Palomo, DO Dr. Johnny Shelton DO Tissues: A - Pleural fluid, NOS Procedures: Special Stain Group II Surgery Specimen Level IV Cytospin Fluid HEADER OPERATION: Ultrasound guided thoracentesis PRE-OP DIAGNOSIS: Pleural effusion TISSUE SUBMITTED: A- Thoracentesis fluid for cytology DIAGNOSIS CYTOLOGY A. Pleural fluid, thoracentesis (cytospin, cellblock): - No malignant cells identified. - Acute inflammation. CYTOLOGY STUDY Slides are reviewed. CYTOLOGY GROSS A. Received is 120 ml of yellow-cloudy fluid labeled with the patient's name and and designated per the requisition as Thoracentesis fluid. Submitted for cytology and cell block preparation. Mr 12/09/2024 CPT: 43805,03312
--- NOTE | 2024-12-08 13:45 | CASEMGMT ---
Social Work Pt's son-in-law asked to speak w/SW earlier today. CM went to the room and he had left. Pt's son in law back this afternoon w/pt's , RN made SW aware. SW went to room, he has again left. SW will attempt to follow up again this afternoon. SW did create in [facility] a list of longterm facilities in network w/pt's insurance, in pt's preferred geographic area and complete w/quality and resource use data. VESNA De Paz
[2024-12-08 14:01] LABS: Cytology, Body Fluid / CSF SEE PATHOLOGY REPORT
[2024-12-08 14:29] LABS: Body Fluid Mononuclear WBC # 1.041 10^3/uL; Body Fluid Mononuclear WBC % 8.0 %; Body Fluid Polynuclear WBC # 11.975 10^3/uL; Body Fluid Polynuclear WBC % 92.0 %; Red Cell Count/Body Fluid 0.005 10^6/ul
[2024-12-08 14:38] LABS: White Blood Count/Body Fluid 12.722 10^3/uL
[2024-12-08 14:39] LABS: Auto B Fluid Analyzer BKGD Ct COUNTS W/IN LIMITS (W/IN LIMITS); Source- Body Fluid THORACENTESIS
[2024-12-08 14:40] LABS: Appearance/Body Fluid SL CLDY; Color/Body Fluid LT YEL
--- NOTE | 2024-12-08 14:48 | CASEMGMT ---
Addendum entered by Ml Cisneros 12/08/24 15:35: Received confirmation that [facility] will be able to see pt on 12/15, updated pt. Original Note: TC to [facility], referral made for SN and DENTAL BILLING SPECIALIST with the request to not start until after 12/15 and to contact dtr Aileen. Spoke with Beba, she will review referral and advise if able to accept.
--- NOTE | 2024-12-08 14:51 | CASEMGMT ---
Social Work SW met w/pt's and son in law Juancarlos in the waiting room, pt participating in therapy. Juancarlos called pt's daughter Aileen on the phone, so she can be part of the conversation, she is in [place] As we met, pt walked w/therapy with a walker into the hallway and back to the room. SW spoke w/family in regard to discharge plan. We spoke about HHC and SNF. Pt's daughter states pt will not agree to SNF. We spoke about home health, pt's daughter would like this for pt but is not sure if pt will agree. She asked if he has to agree for SW to make the referral. SW explained it would be good if he was agreeable, otherwise he may not let HHC into the home. We spoke about HHC for therapy, and for a SW to see pt. They are agreeable to referral to [facility] so a list is not needed at this time. SW explained will speak w/pt also to make sure he is agreeable. SW explained can also provide a list of private hire aides, and home delivered meals. As per Aileen, pt and already have MOW and she may want to up the deliveries from 3 to 5 times per week. Aileen expressed concern about pt and caring for themselves at home, caring for their home, and personal care. Pt's states she thinks they do okay at home. (Juancarlos, son in law, did let SW know privately that pt's has dementia and is not able to even warm up a cup of coffee.) SW then went into room w/the family, Aileen still on the phone. SW met w/pt. Pt initially not agreeable for HHC for therapy. However, he is agreeable for longterm. CM will make referral to [facility] for nursing and SW. Daughter would like to be the contact, this was communicated to [facility]. SW also gave son in law information for private hire aide agencies, cleaning people and other home delivered meal programs. SW will continue to follow. VESNA De Paz
[2024-12-08 16:11] LABS: Body Fluid QC Type(s) BF1Q
[2024-12-08] MEDS: Juven (unflavored) Packet 1 PACKET PO (17:50)
[2024-12-08] MEDS: 0.9% Saline Lock 10 ML Syringe IV (21:41)
[2024-12-08 23:00] LABS: Neutrophil (Segs) 97 %
[2024-12-09] VITALS (7 sets, daily range): BP systolic 119–130; BP diastolic 69–88; PULSE 82–108; RESP 16–19; TEMP 36.6–37.2; O2SAT 92–95
[2024-12-09 05:50] LABS: Hematocrit 38.3 % (40-54); Hemoglobin 12.7 g/dL (13.0-16.5); Immature Granulocytes Count 0.190 X10^3/uL (0.0-0.0); Mean Corp Hgb Conc 33.2 g/dL (32-36); Mean Corpuscular Volume 90.8 fL (80-94); Mean Platelet Vol. 9.2 fl (6.2-12.0); NRBC Flagged by Analyzer 0 % (0-5); POSITIVE DIFFERENTIAL YES; Platelet Count 244 K/mm3 (150-450); RBC Distribution Width CV 12.9 % (11.6-14.6); RBC Distribution Width SD 43.0 fl (35.1-43.9); Red Blood Count 4.22 M/mm3 (4.6-6.2); White Blood Count 10.8 K/mm3 (4.4-11.0)
[2024-12-09 06:30] LABS: Anion Gap 11 (5-15); BUN 22 mg/dL (4-19); BUN/Creat Ratio 28.8 RATIO (10-20); Calcium,Total 8.3 mg/dL (7.6-11.0); Carbon Dioxide 21.4 mmol/L (21.0-32.0); Chloride 102 mmol/L (98-108); Estimated Creatinine Clearance 45.33 ml/min (50-250); Glucose 98 mg/dL (70-99); Potassium 4.2 mmol/L (3.3-5.1)
--- NOTE | 2024-12-09 08:30 | PCM.PN.HOSP ---
Reason for Visit Chief Complaint: Failure to thrive Subjective Subjective Feels weak. But wants to go home. Objective Data Objective Data Vital Signs: Vital Signs Temp Pulse Resp BP Pulse Ox O2 Del Method 36.9 C 87 19 H 119/70 95 Room Air 12/09/24 03:10 12/09/24 07:10 12/09/24 07:10 12/09/24 03:10 12/09/24 08:07 12/09/24 08:07 Oxygen Delivery Method Room Air Weight: 51.2 kg Body Mass Index (BMI) 16.2 Intake & Output: Intake and Output for Last 24 Hours 12/07/24 12/08/24 12/09/24 23:59 23:59 23:59 Intake Total 1305 / 1505 905 / 1105 200 / 200 Output Total 780 / 780 300 / 300 Balance 1305 / 1505 125 / 325 -100 / -100 Medical Nutrition Assessment Dietitian: Malnutrition Criteria Met Start: 12/08/24 16:29 Freq: Status: Active Protocol: Document 12/08/24 16:29 RMA (Rec: 12/08/24 16:29 RMA [id number]) Nutrition Malnutrition Evidence of Yes Malnutrition Exists Malnutrition (severe Chronic ): Evidenced By Suboptimal Energy Intake (Severe),Weight Loss (Moderate ),Physical Changes (Severe) Clinical Problem Chronic Disease or Condition Related Malnutrition Etiology Severe protein-calorie malnutrition in the context of chronic disease and debility related to inadequate energy/oral intake and increased energy expenditure Signs/Symptoms as evidenced by ~ 7-8% unintentional weight loss x 6 months, BMI 16.2, PO meeting less than 50% estimated nutrition needs x 1-2 months, muscle wasting/fat depletion in the clavicle, orbital, temporal region, arms and legs Status Active Problem Recommendation Dietitian Will continue liberalized regular diet. Recommendations/ Will add 240mL ensure plus HP w/ breakfast and dinner Changes tray. Will add Seth BID w/ medpass. Lab / Micro Data 12/09/24 05:25 12/09/24 05:25 Labs: Laboratory Results - last 24 hr 12/08/24 : Fluid Source THORACENTESIS, Fluid Color LT YEL, Fluid Appearance SL CLDY, Fluid WBC 12.722, Fluid RBC 0.005, Fluid Tot Cell Count 12.724, Fld Polynuclear WBCs # 11.975, Fld Polynuclear WBCs % 92.0, Fluid Mononuclear WBCs 1.041, Fld Mononuclear WBCs % 8.0, Fluid Neutrophils 97, Fluid Lymphocytes 1, Fluid Monocytes 2, Fl Pathologist Comment May follow, Fluid Total Protein 4.1, Fluid LDH 566, Fluid Comment 2 SEE COMMENT 12/09/24 05:25: WBC 10.8, RBC 4.22 L, Hgb 12.7 L, Hct 38.3 L, MCV 90.8, MCH 30.1, MCHC 33.2, RDW Std Deviation 43.0, RDW Coeff of Michael 12.9, Plt Count 244, MPV 9.2, Immature Gran % (Auto) 1.800 H, Neut % (Auto) 87.7 H, Lymph % (Auto) 4.4 L, [place] % (Auto) 5.8, Eos % (Auto) 0.0, Baso % (Auto) 0.3, Absolute Neuts (auto) 9.5 H, Absolute Lymphs (auto) 0.48 L, Nucleated RBC % 0, Sodium 134, Potassium 4.2, Chloride 102, Carbon Dioxide 21.4, Anion Gap 11, BUN 22 H, Creatinine 0.77, Estim Creat Clear Calc 45.33 L, Est GFR (MDRD) Non-Af 86, BUN/Creatinine Ratio 28.8 H, Glucose 98, Calcium 8.3 Micro: Microbiology 12/08/24 23:20 Urine, Random Legionella Antigen - Final 12/08/24 23:20 Urine, Random Streptococcus pneumoniae Antigen (M - Final 12/07/24 21:45 Stool Enteric Bacteriology - Final 12/07/24 21:45 Stool Clostridioides difficile (PCR) - Final Radiography Diagnostic Testing: Radiology Impression Thoracentesis Ultrasound 12/08/24 06:00 IMPRESSION: Successful ultrasound-guided right thoracentesis. Laboratory results pending. Reading Location: [place] [id number] Physical Exam Const Constitutional Narrative: Lying in bed. Awake and alert. No acute distress and afebrile. No respiratory stress. No conversational dyspnea. Resp normal respiratory effort and no retractions Resp Narrative: Diminished in the bases bilaterally. Cardio regular rate, regular rhythm, S1 normal heart sound and S2 normal heart sound GI normal to inspection, nondistended, normoactive bowel sounds, soft to palpation, non-tender and non-distended Neuro Sensorium / Orientation: awake and alert Assessment & Plan Assessment/Plan (1) Pleural effusion on right: PLAN: On antibiotics with ceftriaxone and azithromycin. Antigens for receptor streptococcus and Legionella are negative. Sputum culture pending Exudative Thoracentesis performed on 12/08 which removed 390cc fluid (2) Failure to thrive: PLAN: PT OT evaluate and treat. Case management to assist on disposition. Stool studies negative for enteric panel as well as C. difficile. Plan is for home health care upon discharge. PLAN: Plan Chronic medical conditions: Chronic COPD: Stable on room air at rest in the ED and no wheezing on exam noted, not in acute exacerbation. Okay to treat with scheduled DuoNebs as above while inpatient with no need for steroids. History of prostate cancer s/p TURP and chronic ureteral stent placement: Follows with Dr. Hollingsworth. Most recent right sided stent change with retrograde pyelogram was done in August with no new findings noted. Continue outpatient follow-up. Chronic sacral wound: Stable. Will hold on wound care consult at this time. History of right hip fracture s/p ORIF repair VTE prophylaxis: LMWH. Disposition: To be determined. Weight on culture results James anything does show up. Eventual plan is for the patient to go home with home health care. Charges/Coding Visit Charges Inpatient E&M: 65227 Subs Hosp L2
[2024-12-09] MEDS: Juven (unflavored) Packet 1 PACKET PO ×2 (08:40→16:35)
[2024-12-09] MEDS: Ceftriaxone 2 GM in 0.9% Normal Saline (50mL MB+) 50 ML IV (09:32)
[2024-12-09] MEDS: Azithromycin 500 MG in 0.9% Normal Saline (250mL Bag) 250 ML 255 MG IV (10:57)
[2024-12-10] VITALS (10 sets, daily range): BP systolic 110–123; BP diastolic 57–76; PULSE 76–100; RESP 17–20; TEMP 36.6–37.3; O2SAT 73–95
[2024-12-10 04:05] LABS: Hematocrit 38.1 % (40-54); Hemoglobin 12.5 g/dL (13.0-16.5); Immature Granulocytes Count 0.130 X10^3/uL (0.0-0.0); Mean Corp Hgb Conc 32.8 g/dL (32-36); Mean Corpuscular Volume 91.8 fL (80-94); Mean Platelet Vol. 9.4 fl (6.2-12.0); NRBC Flagged by Analyzer 0 % (0-5); POSITIVE DIFFERENTIAL YES; Platelet Count 245 K/mm3 (150-450); RBC Distribution Width CV 13.0 % (11.6-14.6); RBC Distribution Width SD 43.7 fl (35.1-43.9); Red Blood Count 4.15 M/mm3 (4.6-6.2); White Blood Count 9.9 K/mm3 (4.4-11.0)
[2024-12-10 04:26] LABS: Anion Gap 10 (5-15); BUN 30 mg/dL (4-19); BUN/Creat Ratio 38.5 RATIO (10-20); Calcium,Total 8.1 mg/dL (7.6-11.0); Carbon Dioxide 23.6 mmol/L (21.0-32.0); Chloride 100 mmol/L (98-108); Estimated Creatinine Clearance 45.33 ml/min (50-250); Glucose 107 mg/dL (70-99); Potassium 4.2 mmol/L (3.3-5.1)
[2024-12-10] MEDS: Juven (unflavored) Packet 1 PACKET PO ×2 (08:36→15:50)
[2024-12-10] MEDS: Azithromycin 500 MG in 0.9% Normal Saline (250mL Bag) 250 ML 250 MG IV (08:47)
[2024-12-10] MEDS: 0.9% Saline Lock 10 ML Syringe IV ×3 (08:48→23:05)
--- NOTE | 2024-12-10 08:58 | PN.HOSP_ITS ---
Reason for Visit Chief Complaint: Failure to thrive Subjective Subjective Still feeling weak. Objective Data Objective Data Vital Signs: Vital Signs Temp Pulse Resp BP Pulse Ox O2 Del Method 36.7 C 100 18 113/57 L 93 Room Air 12/10/24 08:35 12/10/24 08:35 12/10/24 08:35 12/10/24 08:35 12/10/24 08:35 12/10/24 08:35 Oxygen Delivery Method Room Air Weight: 51.2 kg Body Mass Index (BMI) 16.2 Intake & Output: Intake and Output for Last 24 Hours 12/08/24 12/09/24 12/10/24 23:59 23:59 23:59 Intake Total 905 / 1105 505 / 505 Output Total 780 / 780 300 / 800 850 / 850 Balance 125 / 325 205 / -295 -850 / -850 Medical Nutrition Assessment Dietitian: Malnutrition Criteria Met Start: 12/08/24 16:29 Freq: Status: Active Protocol: Document 12/08/24 16:29 RMA (Rec: 12/08/24 16:29 RMA [id number]) Nutrition Malnutrition Evidence of Yes Malnutrition Exists Malnutrition (severe Chronic ): Evidenced By Suboptimal Energy Intake (Severe),Weight Loss (Moderate ),Physical Changes (Severe) Clinical Problem Chronic Disease or Condition Related Malnutrition Etiology Severe protein-calorie malnutrition in the context of chronic disease and debility related to inadequate energy/oral intake and increased energy expenditure Signs/Symptoms as evidenced by ~ 7-8% unintentional weight loss x 6 months, BMI 16.2, PO meeting less than 50% estimated nutrition needs x 1-2 months, muscle wasting/fat depletion in the clavicle, orbital, temporal region, arms and legs Status Active Problem Recommendation Dietitian Will continue liberalized regular diet. Recommendations/ Will add 240mL ensure plus HP w/ breakfast and dinner Changes tray. Will add Seth BID w/ medpass. Lab / Micro Data 12/10/24 03:44 12/10/24 03:44 Labs: Laboratory Results - last 24 hr 12/10/24 03:44: WBC 9.9, RBC 4.15 L, Hgb 12.5 L, Hct 38.1 L, MCV 91.8, MCH 30.1, MCHC 32.8, RDW Std Deviation 43.7, RDW Coeff of Michael 13.0, Plt Count 245, MPV 9.4, Immature Gran % (Auto) 1.300 H, Neut % (Auto) 87.5 H, Lymph % (Auto) 4.5 L, [place] % (Auto) 6.3, Eos % (Auto) 0.1, Baso % (Auto) 0.3, Absolute Neuts (auto) 8.6 H, Absolute Lymphs (auto) 0.44 L, Nucleated RBC % 0, Sodium 134, Potassium 4.2, Chloride 100, Carbon Dioxide 23.6, Anion Gap 10, BUN 30 H, Creatinine 0.78, Estim Creat Clear Calc 45.33 L, Est GFR (MDRD) Non-Af 85, BUN/Creatinine Ratio 38.5 H, Glucose 107 H, Calcium 8.1 Micro: Microbiology 12/08/24 23:20 Sputum, Expectorated/Coughed Gram Stain - Final 12/08/24 23:20 Urine, Random Legionella Antigen - Final 12/08/24 23:20 Urine, Random Streptococcus pneumoniae Antigen (M - Final 12/07/24 21:45 Stool Enteric Bacteriology - Final 12/07/24 21:45 Stool Clostridioides difficile (PCR) - Final Physical Exam Const alert and no apparent distress Constitutional Narrative: Cachectic Resp normal respiratory effort, no retractions, no use of accessory muscles and clear to auscultation bilaterally Cardio regular rate and regular rhythm GI normal to inspection, nondistended, normoactive bowel sounds, soft to palpation, non-tender and non-distended Extremity normal to inspection and full ROM Neuro Sensorium / Orientation: awake and alert Assessment & Plan Assessment/Plan (1) Pleural effusion on right: PLAN: On antibiotics with ceftriaxone and azithromycin. Antigens for receptor streptococcus and Legionella are negative. Sputum culture pending Exudative Thoracentesis performed on 12/08 which removed 390cc fluid Cytology pending. Patient had ambulatory pulse ox and was 73% on room air, 74% on 1 L, 80% on 2 L and then 95% on 4 L. Will add methylprednisolone in addition to the antibiotics to see if there is improvements. (2) Failure to thrive: PLAN: PT OT evaluate and treat. Case management to assist on disposition. Stool studies negative for enteric panel as well as C. difficile. Plan is for home health care upon discharge. PLAN: Plan Chronic medical conditions: * Chronic COPD: Stable on room air at rest in the ED and no wheezing on exam noted, not in acute exacerbation. Okay to treat with scheduled DuoNebs as above while inpatient with no need for steroids. * History of prostate cancer s/p TURP and chronic ureteral stent placement: Follows with Dr. Hollingsworth. Most recent right sided stent change with retrograde pyelogram was done in August with no new findings noted. Continue outpatient follow-up. * Chronic sacral wound: Stable. Will hold on wound care consult at this time. * History of right hip fracture s/p ORIF repair VTE prophylaxis: LMWH. Disposition: To be determined. Weight on culture results James anything does show up. Eventual plan is for the patient to go home with home health care. Charges/Coding Visit Charges Inpatient E&M: 82742 Subs Hosp L2
[2024-12-10] MEDS: Ceftriaxone 2 GM in 0.9% Normal Saline (50mL MB+) 50 ML IV (11:16)
--- NOTE | 2024-12-10 12:26 | CASEMGMT ---
NIMCO ROSENBERG reviewed O2 testing, into pt room. Pt family member in the room, pt agreeable to discussing O2 needs. Discussed possible need for O2 at time of DC. Provided list of local DME providers in the area. Pt states I can do whatever I want to do when I go home. NIMCO ROSENBERG states just want to make sure you can go home safely and have O2 if you need it. Currently pt requiring O2 with ambulation. Pt states he does not want a portable tank. NIMCO ROSENBERG explained the hospital has tanks here and will have the concentrator delivered, Pt can follow up with PCP to get the intogen. Pt was not happy with this response and states they're just taking money off the bottom of these companies you tell me to use. NIMCO ROSENBERG again provided a verbal list of several companies, informed pt happy to send a referral to whatever DME company he chooses, that is why this NIMCO ROSENBERG is asking. Pt states he doesn't care, just use [facility].
[2024-12-11] MEDS: 0.9% Normal Saline (250mL Bag) 250 ML 15 ML IV (03:24)
[2024-12-11 06:31] LABS: Hematocrit 38.4 % (40-54); Hemoglobin 12.5 g/dL (13.0-16.5); Immature Granulocytes Count 0.100 X10^3/uL (0.0-0.0); Mean Corp Hgb Conc 32.6 g/dL (32-36); Mean Corpuscular Volume 92.3 fL (80-94); Mean Platelet Vol. 9.5 fl (6.2-12.0); NRBC Flagged by Analyzer 0 % (0-5); POSITIVE DIFFERENTIAL YES; Platelet Count 266 K/mm3 (150-450); RBC Distribution Width CV 13.1 % (11.6-14.6); RBC Distribution Width SD 44.2 fl (35.1-43.9); Red Blood Count 4.16 M/mm3 (4.6-6.2); White Blood Count 6.9 K/mm3 (4.4-11.0)
[2024-12-11 07:03] VITALS: BP 119/87; PULSE 83; RESP 20; TEMP 36.5; O2SAT 95
[2024-12-11 07:10] LABS: Anion Gap 10 (5-15); BUN 33 mg/dL (4-19); BUN/Creat Ratio 40.9 RATIO (10-20); Calcium,Total 8.5 mg/dL (7.6-11.0); Carbon Dioxide 25.3 mmol/L (21.0-32.0); Chloride 101 mmol/L (98-108); Estimated Creatinine Clearance 44.77 ml/min (50-250); Glucose 170 mg/dL (70-99); Potassium 4.4 mmol/L (3.3-5.1)
[2024-12-11] MEDS: 0.9% Saline Lock 10 ML Syringe IV ×2 (07:10→09:37)
--- NOTE | 2024-12-11 07:36 | PN.HOSP_ITS ---
Reason for Visit Chief Complaint: Failure to thrive Subjective Subjective No new events. Told nursing that he is not to use oxygen at home. States that he wants to have that portable condenser though but was made aware that we would not be able to facilitate that in the hospital. Objective Data Objective Data Vital Signs: Vital Signs Temp Pulse Resp BP Pulse Ox O2 Del Method 36.5 C L 83 20 H 119/87 H 95 Room Air 12/11/24 07:03 12/11/24 07:03 12/11/24 07:03 12/11/24 07:03 12/11/24 07:03 12/11/24 07:03 Oxygen Delivery Method Room Air Weight: 51.2 kg Body Mass Index (BMI) 16.2 Intake & Output: Intake and Output for Last 24 Hours 12/09/24 12/10/24 12/11/24 23:59 23:59 23:59 Intake Total 505 / 505 665 / 665 Output Total 300 / 800 850 / 850 Balance 205 / -295 -185 / -185 Medical Nutrition Assessment Dietitian: Malnutrition Criteria Met Start: 12/08/24 16:29 Freq: Status: Active Protocol: Document 12/08/24 16:29 RMA (Rec: 12/08/24 16:29 RMA [id number]) Nutrition Malnutrition Evidence of Yes Malnutrition Exists Malnutrition (severe Chronic ): Evidenced By Suboptimal Energy Intake (Severe),Weight Loss (Moderate ),Physical Changes (Severe) Clinical Problem Chronic Disease or Condition Related Malnutrition Etiology Severe protein-calorie malnutrition in the context of chronic disease and debility related to inadequate energy/oral intake and increased energy expenditure Signs/Symptoms as evidenced by ~ 7-8% unintentional weight loss x 6 months, BMI 16.2, PO meeting less than 50% estimated nutrition needs x 1-2 months, muscle wasting/fat depletion in the clavicle, orbital, temporal region, arms and legs Status Active Problem Recommendation Dietitian Will continue liberalized regular diet. Recommendations/ Will add 240mL ensure plus HP w/ breakfast and dinner Changes tray. Will add Seth BID w/ medpass. Lab / Micro Data 12/11/24 06:00 12/11/24 06:00 Labs: Laboratory Results - last 24 hr 12/11/24 06:00: WBC 6.9, RBC 4.16 L, Hgb 12.5 L, Hct 38.4 L, MCV 92.3, MCH 30.0, MCHC 32.6, RDW Std Deviation 44.2 H, RDW Coeff of Michael 13.1, Plt Count 266, MPV 9.5, Immature Gran % (Auto) 1.400 H, Neut % (Auto) 92.6 H, Lymph % (Auto) 3.3 L, [place] % (Auto) 2.6, Eos % (Auto) 0.0, Baso % (Auto) 0.1, Absolute Neuts (auto) 6.4, Absolute Lymphs (auto) 0.23 L, Nucleated RBC % 0, Sodium 137, Potassium 4.4, Chloride 101, Carbon Dioxide 25.3, Anion Gap 10, BUN 33 H, Creatinine 0.81, Estim Creat Clear Calc 44.77 L, Est GFR (MDRD) Non-Af 84, BUN/Creatinine Ratio 40.9 H, Glucose 170 H, Calcium 8.5 Micro: Microbiology 12/08/24 23:20 Sputum, Expectorated/Coughed Gram Stain - Final 12/08/24 23:20 Urine, Random Legionella Antigen - Final 12/08/24 23:20 Urine, Random Streptococcus pneumoniae Antigen (M - Final 12/07/24 21:45 Stool Enteric Bacteriology - Final 12/07/24 21:45 Stool Clostridioides difficile (PCR) - Final Physical Exam Const alert and no apparent distress Resp normal respiratory effort and no retractions Resp Narrative: Diminished breath sounds bilaterally Cardio regular rate, regular rhythm, S1 normal heart sound and S2 normal heart sound GI normal to inspection, nondistended, normoactive bowel sounds, soft to palpation, non-tender and non-distended Assessment & Plan Assessment/Plan (1) Pleural effusion on right: PLAN: On antibiotics with ceftriaxone and azithromycin. Antigens for receptor streptococcus and Legionella are negative. Sputum culture pending Exudative Thoracentesis performed on 12/08 which removed 390cc fluid Cytology pending. Patient had ambulatory pulse ox on 12/10 and was 73% on room air, 74% on 1 L, 80% on 2 L and then 95% on 4 L. Will add methylprednisolone in addition to the antibiotics to see if there is improvements. Ambulatory pulse ox on 12/11 shows that patient requires 2 L nasal cannula with activity. Patient expressing reluctance to use the oxygen at home saying that he does not need it. I told him that given his symptoms that he was having previously that he may have needed to before but we know now that he certainly needs it at rest. Patient will be discharged with oxygen. (2) Failure to thrive: PLAN: PT OT evaluate and treat. Case management to assist on disposition. Stool studies negative for enteric panel as well as C. difficile. Plan is for home health care upon discharge. PLAN: Plan Chronic medical conditions: * Chronic COPD: Stable on room air at rest in the ED and no wheezing on exam noted, not in acute exacerbation. Okay to treat with scheduled DuoNebs as above while inpatient with no need for steroids. * History of prostate cancer s/p TURP and chronic ureteral stent placement: Follows with Dr. Hollingsworth. Most recent right sided stent change with retrograde pyelogram was done in August with no new findings noted. Continue outpatient follow-up. * Chronic sacral wound: Stable. Will hold on wound care consult at this time. * History of right hip fracture s/p ORIF repair VTE prophylaxis: LMWH. Disposition: To be determined. Weight on culture results James anything does show up. Eventual plan is for the patient to go home with home health care.
[2024-12-11 08:56] VITALS: BP 138/88; PULSE 85; RESP 18; TEMP 36.4; O2SAT 93
[2024-12-11] MEDS: Juven (unflavored) Packet 1 PACKET PO (09:23)
[2024-12-11] MEDS: Ceftriaxone 2 GM in 0.9% Normal Saline (50mL MB+) 50 ML IV (09:26)
[2024-12-11] MEDS: Azithromycin 500 MG in 0.9% Normal Saline (250mL Bag) 250 ML 250 MG IV (10:04)
[2024-12-11 10:17] VITALS: O2SAT 84; O2SAT 91; O2SAT 92
--- NOTE | 2024-12-11 11:25 | PCM.DC.SUM ---
Providers Date of Admission: 12/07/24 Primary Care Physician: Dr. Johnny Shelton, DO Consultations 12/11/24 07:12 Consult: Onc/Wound/senior information developer Routine Comment: Reason for Consult:: buttocks pressure injury Reason For Visit: FAILURE TO THRIVE W/ WT LOSS, R PLEURAL EFFUSION Diagnosis Discharge Diagnosis (1) Pleural effusion on right: Status: Acute Code(s): J90 - Pleural effusion, not elsewhere classified Plan: On antibiotics with ceftriaxone and azithromycin. Antigens for receptor streptococcus and Legionella are negative. Sputum culture pending Exudative Thoracentesis performed on 12/08 which removed 390cc fluid Cytology pending. Patient had ambulatory pulse ox on 12/10 and was 73% on room air, 74% on 1 L, 80% on 2 L and then 95% on 4 L. Will add methylprednisolone in addition to the antibiotics to see if there is improvements. Ambulatory pulse ox on 12/11 shows that patient requires 2 L nasal cannula with activity. Patient expressing reluctance to use the oxygen at home saying that he does not need it. I told him that given his symptoms that he was having previously that he may have needed to before but we know now that he certainly needs it at rest. Patient will be discharged with oxygen. (2) Failure to thrive: Status: Acute Plan: PT OT evaluate and treat. Case management to assist on disposition. Stool studies negative for enteric panel as well as C. difficile. Plan is for home health care upon discharge. Plan Chronic medical conditions: Chronic COPD: Stable on room air at rest in the ED and no wheezing on exam noted, not in acute exacerbation. Okay to treat with scheduled DuoNebs as above while inpatient with no need for steroids. History of prostate cancer s/p TURP and chronic ureteral stent placement: Follows with Dr. Hollingsworth. Most recent right sided stent change with retrograde pyelogram was done in August with no new findings noted. Continue outpatient follow-up. Chronic sacral wound: Stable. Will hold on wound care consult at this time. History of right hip fracture s/p ORIF repair VTE prophylaxis: LMWH. Disposition: To be determined. Weight on culture results James anything does show up. Eventual plan is for the patient to go home with home health care. Medications at Discharge Home Medications acetaminophen 325 mg tablet 650 mg (2 x 325 mg) PO Q6H PRN PRN Pain 1-10 Or Fever>100.7 #30 tabs 12/11/24 albuterol sulfate 90 mcg/actuation breath activated powder inhaler 2 inh inhalation Q6H PRN shortness of breath #1 ea 12/11/24 amoxicillin 875 mg-potassium clavulanate 125 mg tablet 1 tab PO BID #10 tabs 12/11/24 arginine 7 gram-glutam 7 gram-CaHMB 1.5 ofmw-frglh-zs-min oral pwd pkt (Seth (with collagen)) 1 packet PO BIDCM #60 ea 12/11/24 prednisone 20 mg tablet 40 mg (2 x 20 mg) PO DAILY #10 tabs 12/11/24 Hospital Course Operations None Procedures Thoracentesis Summary of Care Provided Hospital Course: Greater than 30 minutes spent on discharge This is an 89-year-old male presents with just weakness and failure to thrive. Patient had a CT of the chest that showed no pulmonary embolism but did show a moderate size right pleural effusion with atelectasis. Patient underwent a thoracentesis on the that removed 390 cc of cloudy yellow fluid. It was exudative based on lights criteria. Sent off for cytology but which is still pending at this time. Patient was treated for pneumonia with antibiotics as well as COPD exacerbation with steroids. Patient does not require oxygen with rest but does require 2 L oxygen with activity. Patient expressing reluctance to use oxygen at home saying that he does not want to log the oxygen canister. Patient was told that he would just need it with activity and would just have a condenser at home but would use the canister when he would go out. He said that he did not want to go out but he did inquire about about the portable oxygen tank canisters. He was told that we would not be able to facilitate his outpatient but he could follow-up with a assistant offset press operator or his primary care doctor about seeing about arranging that. Given complaining of shortness of breath with activity for some time and he was stopped and get better so it is unclear if some of this is more chronic which I suspect. Do recommend the patient follow-up pulmonology in regards to the final results regards to the cytology of this pleural fluid. Patient will continue with antibiotics as well as steroids. Medical Records Data Medical Nutrition Assessment Dietitian: Malnutrition Criteria Met Start: 12/08/24 16:29 Freq: Status: Active Protocol: Document 12/08/24 16:29 RMA (Rec: 12/08/24 16:29 RMA [id number]) Nutrition Malnutrition Evidence of Yes Malnutrition Exists Malnutrition (severe Chronic ): Evidenced By Suboptimal Energy Intake (Severe),Weight Loss (Moderate ),Physical Changes (Severe) Clinical Problem Chronic Disease or Condition Related Malnutrition Etiology Severe protein-calorie malnutrition in the context of chronic disease and debility related to inadequate energy/oral intake and increased energy expenditure Signs/Symptoms as evidenced by ~ 7-8% unintentional weight loss x 6 months, BMI 16.2, PO meeting less than 50% estimated nutrition needs x 1-2 months, muscle wasting/fat depletion in the clavicle, orbital, temporal region, arms and legs Status Active Problem Recommendation Dietitian Will continue liberalized regular diet. Recommendations/ Will add 240mL ensure plus HP w/ breakfast and dinner Changes tray. Will add Seth BID w/ medpass. Weight / BMI Weight Weight: 51.2 kg Body Mass Index (BMI) 16.2 ABG / Lab / Microbiology Data 12/11/24 06:00 12/11/24 06:00 Laboratory: Laboratory Results - last 24 hr 12/11/24 06:00: WBC 6.9, RBC 4.16 L, Hgb 12.5 L, Hct 38.4 L, MCV 92.3, MCH 30.0, MCHC 32.6, RDW Std Deviation 44.2 H, RDW Coeff of Michael 13.1, Plt Count 266, MPV 9.5, Immature Gran % (Auto) 1.400 H, Neut % (Auto) 92.6 H, Lymph % (Auto) 3.3 L, [place] % (Auto) 2.6, Eos % (Auto) 0.0, Baso % (Auto) 0.1, Absolute Neuts (auto) 6.4, Absolute Lymphs (auto) 0.23 L, Nucleated RBC % 0, Sodium 137, Potassium 4.4, Chloride 101, Carbon Dioxide 25.3, Anion Gap 10, BUN 33 H, Creatinine 0.81, Estim Creat Clear Calc 44.77 L, Est GFR (MDRD) Non-Af 84, BUN/Creatinine Ratio 40.9 H, Glucose 170 H, Calcium 8.5 Microbiology: Microbiology 12/08/24 23:20 Sputum, Expectorated/Coughed Gram Stain - Final 12/08/24 23:20 Urine, Random Legionella Antigen - Final 12/08/24 23:20 Urine, Random Streptococcus pneumoniae Antigen (M - Final 12/07/24 21:45 Stool Enteric Bacteriology - Final 12/07/24 21:45 Stool Clostridioides difficile (PCR) - Final D/C Instructions DC O2, CPAP, BIPAP Needs Home O2 Discharge instructions: Yes Type of respiratory needs?: Oxygen Oxygen frequency: With Ambulation Oxygen liters per minute during Ambulation: 2 DC home with Oxygen: Yes Home O2 MD Review: I have reviewed the oxygen testing, and the patient qualifies for home oxygen equipment and portability. The patient is mobile in the home and the community. Meaningful Use Info Meaningful Use Meaningful Use Diagnoses (Choose all that apply): None applicable Discharge Plan Admission Admit Date/Time: 12/07/24 18:18 Primary Reason for Your Visit: pneumonia. Attending Provider: Chet Ulloa Primary Care Provider: Johnny Shelton Consulting Providers: Baudilio Palomo Discharge Orders/Prescriptions Prescriptions: New acetaminophen 325 mg Tablet 650 mg PO Q6H PRN PRN (Reason: Pain 1-10 Or Fever>100.7) Qty: 30 0RF Seth (with collagen) 7-7-1.5 gram Powder In Packet 1 packet PO BIDCM Qty: 60 0RF amoxicillin-pot clavulanate 875-125 mg tablet 1 tab PO BID Qty: 10 0RF albuterol sulfate 90 mcg/actuation aerosol powdr breath activated 2 inh inhalation Q6H PRN (Reason: shortness of breath) Qty: 1 0RF prednisone 20 mg tablet 40 mg PO DAILY Qty: 10 0RF Referrals / Follow Up: [facility] [Provider Group] - Within 1 Month Johnny Shelton DO [Primary Care Provider] - Within 2 Weeks Disposition Disposition (needs filled in before D/C Order can be placed): Home Health Service Charges/Coding Visit Charges Inpatient E&M: 43869 Disch Hosp >30min
[2024-12-11 11:51] VITALS: BP 109/63; PULSE 100; RESP 16; TEMP 36.3; O2SAT 92
[2024-12-13 11:02] LABS: Pathologist Comment/Body Fluid Reviewed
== END 2024-12-11 13:43 | disposition home health service (06) | DRG 193 ==
LOC: ED 14:09 → MS3 15:09
PROVIDERS: Admitting Provider Hospitalist; Emergency Provider Emergency Medicine; PCP Family Medicine
DX: J18.9 Pneumonia, unspecified organism (principal); E43 Unspecified severe protein-calorie malnutrition; J90 Pleural effusion, not elsewhere classified; J44.0 Chronic obstructive pulmonary disease with (acute) lower respiratory infection; J44.1 Chronic obstructive pulmonary disease with (acute) exacerbation; Z68.1 Body mass index [BMI] 19.9 or less, adult; L89.159 Pressure ulcer of sacral region, unspecified stage; Z66 Do not resuscitate; R62.7 Adult failure to thrive; R19.7 Diarrhea, unspecified; R09.02 Hypoxemia; Z96.0 Presence of urogenital implants; Z85.46 Personal history of malignant neoplasm of prostate; Z90.49 Acquired absence of other specified parts of digestive tract; Z87.81 Personal history of (healed) traumatic fracture; Z87.891 Personal history of nicotine dependence
CPT/HCPCS: 32555; 36415; 71046; 71275; 74177; 80048; 80053; 83615; 84157; 85025; 85027; 87070; 87205; 87449; 87493; 87506; 88108; 88305; 88313; 89050; 94640; 94668; 97162; 97166; 97530; 97535; 97802; 99285; Q9967; A4216; J0696

== ENCOUNTER 2025-01-06 11:57 | Inpatient (IN) | payer MEDICARE, OTHER, SELFPAY ==
[2021-09-09 14:02] VITALS: BMI 19.5
[2025-01-06] VITALS (31 sets, daily range): BP systolic 78–116; BP diastolic 41–94; PULSE 63–174; RESP 14–30; TEMP 36.3–36.9; O2SAT 82–100; BMI 17.8; BMI 16.5
--- NOTE | 2025-01-06 12:26 | EX.ED.DYSGE1 ---
HPI History of Present Illness Chief Complaint: Weakness Narrative Narrative: Patient is a 89-year-old male who is presenting with generalized weakness, illness and not feeling well. Patient is feeling worse today than he was a couple days ago. Patient was at home with his . and daughter at bedside. There is a home health care worker that goes into the house, and patient was more weak and not able to form ADLs today like he was on Thursday. Patient has used a cane in the past to help walk around, has been using a walker in the last week. Patient cannot use a walker at this time secondary to generalized weakness. Patient was in the hospital a few days last week. Patient has no history of atrial fibrillation or atrial flutter. When initially asked patient if he has emphysema or COPD, he says no. Daughter states that he has smoked his whole life, just quit smoking 6 years ago. Patient does not wear oxygen during the day or nighttime. Patient has no headache or fever. Patient does not feel his heart racing. No chest pain or shortness of breath. No abdominal pain nausea or vomiting. Patient does admit to overlies general weakness. Patient mouth is very dry. Patient has a history of emphysema COPD undiagnosed per patient and family. Patient does not wear oxygen at home during the day or nighttime. Patient's hard of hearing. REVIEW OF SYSTEMS: Unless otherwise stated in this report the patient's positive and negative responses for review of systems for constitutional, eyes, ENT, cardiovascular, respiratory, gastrointestinal, neurological, , musculoskeletal, and integument systems and related systems to the presenting problem are either stated in the history of present illness or were not pertinent or were negative for the symptoms and/or complaints related to the presenting medical problem. Vital signs reviewed and patient is not hypoxic, but patient was placed on 2 L nasal cannula for comfort. General: The patient appears well and in no apparent distress. Patient is resting comfortably on cart. Not toxic, lethargic, or listless. Cachectic in appearance Skin: Warm, dry, no pallor noted. There is no rash noted. Tenting of skin, sacral ulcerations to patient's sacrum, large stage I area covering most of his buttocks, sacrum. Patient has 4-5 small areas less than dime size of stage II ulcerations. No stage III or IV decubitus ulcers. These have been ongoing and chronic, are healing, no secondary signs of bleeding, drainage, or signs of infection. Head: Normocephalic, atraumatic Eye: Normal conjunctiva, no drainage, EOMI. PERRL. Ears, Nose, Mouth, and Throat: oral mucosa is very dry. Nares patent. Mouth without vesicles. Cardiovascular: Irregular irregular tachycardic Rate and Rhythm, no murmurs, gallops, or rubs Respiratory: Patient is in no distress, no accessory muscle use, lungs are clear to auscultation, no wheezing, rales or rhonchi Back: non-tender, no CVA tenderness bilaterally to percussion. NO CTLS midline or paraspinal tenderness to palpation. GI: Soft, no tenderness to palpation, no masses appreciated. No rebound, guarding, or rigidity noted. Patient is in a depends, patient has chronic sacral decubitus ulcer, Musculoskeletal: The patient has full range of motion of all extremities and joints with no difficulty. Patient has no motor, no sensory deficits. Neurological: A&O x4, normal speech, no focal neurological deficits. Psychiatric: Cooperative [facility] Medical History Wears hearing aid Pressure ulcer Ambulates with cane Easy bruising History of broken collarbone Blackout Shortness of breath on exertion Hx of fracture of hip Former smoker Vitamin D insufficiency Abnormal results of thyroid function studies Loss of hearing Wears glasses Wears partial dentures Cancer Alcohol use Arthritis Back pain History of edema History of SIADH Chronic bronchitis Hydronephrosis Former smoker Closed intertrochanteric fracture of left femur Kidney failure Prostate cancer Hyponatremia Prostatic cancer Home Medications ?Medication ?Instructions ?Recorded ?Last Taken ?Type acetaminophen 325 mg tablet 650 mg (2 x 325 mg) PO Q6H PRN PRN 12/11/24 Unknown Rx Pain 1-10 Or Fever>100.7 #30 tabs albuterol sulfate 90 mcg/actuation 2 inh inhalation Q6H PRN shortness 12/11/24 Unknown Rx breath activated powder inhaler of breath #1 ea amoxicillin 875 mg-potassium 1 tab PO BID #10 tabs 12/11/24 Unknown Rx clavulanate 125 mg tablet arginine 7 gram-glutam 7 1 packet PO BIDCM #60 ea 12/11/24 Unknown Rx gram-CaHMB 1.5 dakj-dpiil-zk-min oral pwd pkt (Seth (with collagen)) prednisone 20 mg tablet 40 mg (2 x 20 mg) PO DAILY #10 tabs 12/11/24 Unknown Rx Allergy/AdvReac Type Severity Reaction Status Date / Time No Known Allergies Allergy Verified 01/06/25 11:59 Family History Mother Heart disease Father Heart disease Surgical History History of cystoscopy Hx of cystoscopy History of open reduction and internal fixation (ORIF) procedure History of open reduction and internal fixation (ORIF) procedure History of transurethral resection of prostate Status post appendectomy History of renal stent H/O hernia repair Social History household members: spouse and other details: 2 stry house. He sleeps downstairs in a recliner. 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 Tobacco: How many years used: 67 how long ago did patient quit smoking: He quit in 2019 alcohol intake: current alcohol intake frequency: holidays/special occasions only substance use type: does not use EXAM Physical Exam Const Vital Signs: 01/06/25 12:01 01/06/25 12:04 01/06/25 12:06 Temperature 97.4 F L Temperature Source Oral Pulse Rate 174 H Respiratory Rate 18 Respiratory Effort Normal Non-Labored Blood Pressure 104/69 Blood Pressure Mean 80 Pulse Ox 82 99 Oxygen Delivery Method Room Air Room Air Oxygen Flow Rate (L/min) 2 01/06/25 12:30 01/06/25 12:41 01/06/25 12:45 Temperature Temperature Source Pulse Rate 124 H 130 H Respiratory Rate 30 H 21 H Respiratory Effort Blood Pressure 80/51 L 105/41 L Blood Pressure Mean 59 60 Pulse Ox 97 Oxygen Delivery Method Room Air Oxygen Flow Rate (L/min) 2 01/06/25 12:52 01/06/25 13:00 01/06/25 13:04 Temperature 98 F 97.7 F L Temperature Source Oral Oral Pulse Rate 93 99 81 Respiratory Rate 14 20 H 20 H Respiratory Effort Blood Pressure 105/41 L 78/48 L 82/43 L Blood Pressure Mean 62 59 56 Pulse Ox 95 99 Oxygen Delivery Method Room Air Oxygen Flow Rate (L/min) 01/06/25 13:15 01/06/25 13:30 01/06/25 13:45 Temperature Temperature Source Pulse Rate 76 77 79 Respiratory Rate 21 H 20 H 21 H Respiratory Effort Blood Pressure 78/44 L 82/43 L 91/61 Blood Pressure Mean 55 55 70 Pulse Ox 97 100 98 Oxygen Delivery Method Oxygen Flow Rate (L/min) 01/06/25 14:00 01/06/25 14:00 01/06/25 14:15 Temperature 97.4 F L Temperature Source Oral Pulse Rate 75 74 Respiratory Rate 18 19 H Respiratory Effort Blood Pressure 90/62 98/46 L 98/46 L Blood Pressure Mean 72 63 62 Pulse Ox 99 99 100 Oxygen Delivery Method Nasal Cannula Oxygen Flow Rate (L/min) 3 01/06/25 14:45 01/06/25 15:00 01/06/25 15:00 Temperature 97.5 F L Temperature Source Axillary Pulse Rate 77 79 Respiratory Rate 18 Respiratory Effort Blood Pressure 103/52 L 91/56 L 91/56 L Blood Pressure Mean 67 67 68 Pulse Ox 95 100 100 Oxygen Delivery Method Nasal Cannula Oxygen Flow Rate (L/min) 3 01/06/25 15:15 01/06/25 15:30 01/06/25 15:45 Temperature Temperature Source Pulse Rate 76 77 Respiratory Rate 16 14 Respiratory Effort Blood Pressure 85/58 L 91/59 L 107/56 L Blood Pressure Mean 68 69 70 Pulse Ox 99 94 100 Oxygen Delivery Method Oxygen Flow Rate (L/min) 01/06/25 16:00 01/06/25 16:00 Temperature 98.1 F Temperature Source Oral Pulse Rate 81 Respiratory Rate 18 Respiratory Effort Blood Pressure 101/50 L 103/55 L Blood Pressure Mean 67 71 Pulse Ox 99 94 Oxygen Delivery Method Oxygen Flow Rate (L/min) MDM MDM MDM Narrative Medical decision making narrative: Patient seen and examined: IV fluids, Cardizem, sepsis workup, patient will be admitted Differential diagnosis includes but is not limited to: New onset atrial fibrillation with RVR, dehydration, viral illness, electrolyte abnormality, dehydration, pneumonia, PE, Relevant laboratory interpretation: Patient white blood cell count 11.2. Patient's 2 troponins were 36 and then 33. Patient BUN and creatinine were 26/ 0.77 Radiological studies: Chest x-ray showed worsening right-sided airspace disease compared to December 07, 2024 CTA of the chest showed IMPRESSION: No evidence of pulmonary embolism. Stable right pleural effusion with acute angles suggesting loculation. Adjacent right lung densities likely representing mixed infectious or inflammatory process and atelectasis. Unchanged left lower lobe density that may represent scarring, though neoplasm cannot be excluded; consider PET-CT if clinically indicated. [id number] centrilobular emphysema. Stable compression deformities of the thoracic spine with diffuse osseous demineralization. Moderate atherosclerosis with coronary artery calcifications. Reevaluation: After patient was given 2 different injections of Cardizem 10 mg and then Cardizem 50 mg bolus, along with IV fluids, patient's heart rate improved to 80s over 90s, along with blood pressure had improved as well. Patient initially arrived with heart rate in the 170s. Patient has been afebrile. Social barriers to healthcare: There are no food insecurities, there is no issue with transportation, there are no insurance barriers Disposition: Patient will be admitted to the hospitalist. Patient's new onset A-fib with RVR. Patient was given aspirin. Patient was started on Zosyn and vancomycin, patient was just in the hospital a month ago with some type of weakness and illness per and daughter. Patient has chronic wounds to his sacrum, stage I and II, these have been going on for years, no significant worsening of his wounds today. Patient has been in the ER for over 6 to 7 hours, improving heart rate, blood pressure, obtaining the CTA of the chest and getting results and then hospitalization. 1700 I have spoken to Dr. Palomo. Patient has been started on antibiotics. Patient is being given fluids. Will give patient a dose of Lovenox prophylactically. Dr. Abebe will come to see and evaluate the patient and family at bedside patient is maintaining his heart rate and blood pressure with IV fluid maintenance. Patient is on no cardiac drip. Critical care time 45 minutes exclusive from separate billable procedures that were performed. The following was considered in the determination of critical care but not limited to the level of medical decision making, intensive cardiac and/or respiratory monitoring, frequent vital sign monitoring, evaluation of laboratory studies, evaluation of radiographic studies, oxygen monitoring, and constant monitoring and speaking to family at bedside. Lab Data Attestation: I reviewed the patient's lab results. Labs: Laboratory Results - last 24 hr 01/06/25 01/06/25 01/06/25 12:45 13:25 14:21 WBC 11.2 H RBC 4.77 Hgb 14.0 Hct 44.1 MCV 92.5 MCH 29.4 MCHC 31.7 L RDW Std Deviation 46.7 H RDW Coeff of Michael 13.7 Plt Count 184 MPV 10.4 Immature Gran % (Auto) 1.900 H Neut % (Auto) 88.6 H Lymph % (Auto) 3.9 L [place] % (Auto) 4.9 Eos % (Auto) 0.0 Baso % (Auto) 0.7 Absolute Neuts (auto) 9.9 H Absolute Lymphs (auto) 0.44 L Nucleated RBC % 0 PT 15.6 H INR 1.2 APTT 31.4 Sodium 133 Potassium 4.0 Chloride 99 Carbon Dioxide 23.7 Anion Gap 11 BUN 26 H Creatinine 0.77 Estim Creat Clear Calc 49.94 L Est GFR (MDRD) Non-Af 86 BUN/Creatinine Ratio 33.9 H Glucose 127 H Lactic Acid 2.0 Calcium 8.3 Magnesium 2.4 H Troponin T High Sens 36 H Troponin T Hi Sens 2 Hr 33 H NT pro BNP II 2677 H Urine Color Urine Clarity Urine pH Ur Specific [place] Urine Protein Urine Glucose (UA) Urine Ketones Urine Occult Blood Urine Nitrite Urine Bilirubin Urine Urobilinogen Ur Leukocyte Esterase 01/06/25 15:42 WBC RBC Hgb Hct MCV MCH MCHC RDW Std Deviation RDW Coeff of Michael Plt Count MPV Immature Gran % (Auto) Neut % (Auto) Lymph % (Auto) [place] % (Auto) Eos % (Auto) Baso % (Auto) Absolute Neuts (auto) Absolute Lymphs (auto) Nucleated RBC % PT INR APTT Sodium Potassium Chloride Carbon Dioxide Anion Gap BUN Creatinine Estim Creat Clear Calc Est GFR (MDRD) Non-Af BUN/Creatinine Ratio Glucose Lactic Acid Calcium Magnesium Troponin T High Sens Troponin T Hi Sens 2 Hr NT pro BNP II Urine Color Yellow Urine Clarity Clear Urine pH 6.0 Ur Specific [place] 1.010 Urine Protein 30 H Urine Glucose (UA) Normal Urine Ketones Negative Urine Occult Blood 50 H Urine Nitrite Negative Urine Bilirubin Negative Urine Urobilinogen 1 H Ur Leukocyte Esterase 100 H Radiography Chest X-Ray - ED: 1 View and Read by ED Physician (Chest x-ray shows right-sided airspace disease, more prominent today than compared to December 07. Questionable effusion versus pneumonia. No pneumothorax, no signs of diffuse pulmonary edema.) Diagnostic Testing: Clinical Impression(s) from Imaging Studies Chest X-Ray 01/06/25 13:30 IMPRESSION: Likely areas of consolidation in the right middle and lower lung field, predominating in the lower lobe, with underlying pleural effusion again identified. Loculated areas of posterior effusion are not excluded. PA and lateral views the chest are recommended, with consideration of CT if clinically indicated. [facility] Chest CTA 01/06/25 14:55 IMPRESSION: No evidence of pulmonary embolism. Stable right pleural effusion with acute angles suggesting loculation. Adjacent right lung densities likely representing mixed infectious or inflammatory process and atelectasis. Unchanged left lower lobe density that may represent scarring, though neoplasm cannot be excluded; consider PET-CT if clinically indicated. [id number]-[id number] centrilobular emphysema. Stable compression deformities of the thoracic spine with diffuse osseous demineralization. Moderate atherosclerosis with coronary artery calcifications. Reading Location: [address] EKG Initial EKG: Attestation: I personally reviewed and interpreted this EKG as follows: (EKG interpretation. Tachycardic rhythm at 176 beats a minute. Normal axis deviation. Tachycardic rhythm, QTc of 397. Nonspecific ST changes. Compared to EKG on March 14, 2024, tachycardic rhythm is new, patient was tacky at 123 on March 14, questionable MAT.) Comments: EKG #2. Irregular irregular at 108. Normal axis deviation. No acute ST elevation, no acute ectopy. QTc of 439. New onset A-fib. Discharge Plan Triage Chief Complaint: Weakness ED Provider: Quirino Dawn Dx/Rx/DC Orders Clinical Impression: Atrial fibrillation, new onset, Dyspnea, Dehydration, COPD exacerbation Prescriptions: No Action acetaminophen 325 mg Tablet 650 mg PO Q6H PRN PRN (Reason: Pain 1-10 Or Fever>100.7) Qty: 30 0RF Seth (with collagen) 7-7-1.5 gram Powder In Packet 1 packet PO BIDCM Qty: 60 0RF amoxicillin-pot clavulanate 875-125 mg tablet 1 tab PO BID Qty: 10 0RF albuterol sulfate 90 mcg/actuation aerosol powdr breath activated 2 inh inhalation Q6H PRN (Reason: shortness of breath) Qty: 1 0RF prednisone 20 mg tablet 40 mg PO DAILY Qty: 10 0RF Primary Care Provider: Johnny Shelton Referrals: Johnny Shelton DO [Primary Care Provider, Family Practice] Print Language: Tunisian
[2025-01-06] MEDS: 0.9% Normal Saline (1000mL) 1,000 ML 999 ML IV (12:27)
--- NOTE | 2025-01-06 13:00 | CM.ED ---
Social Work Handoff received from YUMIKO Elizondo at [facility]. SW at [facility] was working with [facility] for direct admission to TCU from community, as patient was still 4 days within 30 day window of a 3 midnight qualifying stay. However, patient requiring ambulance transport, and anticipated due to recent decline patient will come through the ED. Spoke cecy Oconnor in admissions at [facility]. Per Anastasia, if patient is cleared from the ED, could admit patient to TCU today. If patient is admitted, then will need to re-evaluate (and would also need to determine bed availability when patient is medically ready). Spoke with Marisa Ma RN. Updated of possible admit from ED to [facility], should patient be medically cleared by provider. If patient is admitted, SW or CM will follow with patient/family after admission. Plan: SW in ED or CM/SW staff on acute units remains available to assist as needs arise. -DONNA Rivera
[2025-01-06 13:08] LABS: Hematocrit 44.1 % (40-54); Hemoglobin 14.0 g/dL (13.0-16.5); Immature Granulocytes Count 0.210 X10^3/uL (0.0-0.0); Mean Corp Hgb Conc 31.7 g/dL (32-36); Mean Corpuscular Volume 92.5 fL (80-94); Mean Platelet Vol. 10.4 fl (6.2-12.0); NRBC Flagged by Analyzer 0 % (0-5); POSITIVE DIFFERENTIAL YES; Platelet Count 184 K/mm3 (150-450); RBC Distribution Width CV 13.7 % (11.6-14.6); RBC Distribution Width SD 46.7 fl (35.1-43.9); Red Blood Count 4.77 M/mm3 (4.6-6.2); White Blood Count 11.2 K/mm3 (4.4-11.0)
--- NOTE | 2025-01-06 13:30 | RAD_ITS ---
PROCEDURE: CHEST 1 VIEW (PORTABLE) 01/06/2025 REASON FOR EXAM: CHEST PAIN TECHNIQUE: Frontal view of the chest. COMPARISON: 03/09/2024 chest radiograph. 12/07/[address] FINDINGS: Normal cardiac silhouette. Normal pulmonary vasculature. Left lung appears clear. Pleural effusion again identified in the right lung base, with extensive area of overlying opacification of the right mid and lower lung field suggesting consolidation, although areas of posteriorly loculated effusion are not excluded. RAD/Chest 1 View (Portable) IMPRESSION: Likely areas of consolidation in the right middle and lower lung field, predomi nating in the lower lobe, with underlying pleural effusion again identified. Loculated areas of posterior effusion are not exclu ded. PA and lateral views the chest are recommended, with consideration of CT if cli nically indicated. Reading Location: [facility]
[2025-01-06 13:48] LABS: Magnesium 2.4 mg/dL (1.5-2.2)
[2025-01-06 14:09] LABS: Anion Gap 11 (5-15); BUN 26 mg/dL (4-19); BUN/Creat Ratio 33.9 RATIO (10-20); Calcium,Total 8.3 mg/dL (7.6-11.0); Carbon Dioxide 23.7 mmol/L (21.0-32.0); Chloride 99 mmol/L (98-108); Estimated Creatinine Clearance 49.94 ml/min (50-250); Glucose 127 mg/dL (70-99); Potassium 4.0 mmol/L (3.3-5.1); Pro- Brain NATRIURETIC PEPTIDE 2677 pg/mL (<=1800); Troponin T High Sensitivity 36 ng/L (<=22)
[2025-01-06 14:29] LABS: Prothrombin Time (Protime)PT. 15.6 SECONDS (11.7-14.9)
[2025-01-06 14:30] LABS: Partial Thromboplast Time 31.4 Seconds (24.1-36.2)
--- NOTE | 2025-01-06 14:55 | CT_ITS ---
PROCEDURE: CTA CHEST W/WO CONTRAST 01/06/2025 REASON FOR EXAM: RULE OUT PE TECHNIQUE: Procedure Code: [id number] Modality: CT Procedure: CTA CHEST W/WO CONTRAST Multiplanar Sagittal and Coronal images were obtained. One or more dose reduction techniques were used (e.g., Automated exposure control, adjustment of the mA and/or kV according to patient size, use of iterative reconstruction technique). COMPARISON: 12/07/2024. FINDINGS: The peripheral soft tissues are unremarkable. Degenerative changes of the spine. Diffuse osseous demineralization. Stable compression deformities of the thoracic spine. Moderate atherosclerosis. Normal caliber thoracic aorta. No mediastinal lymphadenopathy. Coronary artery calcifications are present. The heart is normal in size. No acute upper abdominal abnormalities. No pulmonary artery filling defects. Similar size of a right pleural effusion with acute angles suggesting it is loculated. Adjacent lower and upper lobe density with attenuation similar to paraspinal musculature suggestive that at least some component is infectious/inflammatory and some component may represent atelectasis. [id number] centrilobular emphysema. Unchanged density within the left lower lobe may represent scarring but a neoplastic process can not be completely excluded. Consider PET-CT if clinically indicated. CT/CTA Chest W/WO Contrast IMPRESSION: No evidence of pulmonary embolism. Stable right pleural effusion with acute angles suggesting loculation. Adjacent right lung densities likely representing mixed infectious or inflammat ory process and atelectasis. Unchanged left lower lobe density that may represent scarring, though neoplasm cannot be excluded; consider PET-CT if clinically indicated. Nceegwdp-ye-meodvp centrilobular emphysema. Stable compression deformities of the thoracic spine with diffuse osseous demin eralization. Moderate atherosclerosis with coronary artery calcifications. Reading Location: [address]
[2025-01-06 15:12] LABS: Troponin T High Sens 2 HR 33 ng/L (<=22)
[2025-01-06] MEDS: 0.9% Normal Saline (1000mL) 1,000 ML 150 ML IV (15:37)
[2025-01-06 16:20] LABS: Color, Urine Yellow (Yellow); Glucose, Dipstick Normal (Normal); Ketone-Dipstick Negative (Negative); Leukocyte Esterase-Dipstick 100 /ul (Negative); Nitrite-Dipstick Negative (Negative); Occult Blood-Urine 50 /ul (Negative); Protein-Dipstick 30 mg/dl (Negative); Specific Gravity, Urine 1.010 (1.002-1.030); Urine Bilirubin Dipstick Negative (Negative)
[2025-01-06] MEDS: Piperacil/Tazobactam 3.375 GM in 0.9% Normal Saline (50mL MB+) 50 ML IV ×2 (16:53→23:20)
--- NOTE | 2025-01-06 16:54 | PCM.HP.STD ---
HPI - General General Date of Admission: 01/06/25 Date of Service: 01/06/25 Chief Complaint: Generalized weakness and fatigue HPI Narrative ELIESER VILLEGAS, is a 89 M who presented to ED on 01/06/2025 with worsening generalized weakness and fatigue. Patient lives at home with his , daughter lives close by. 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 Patient was recently hospitalized here from 12/07-12/11 for pneumonia with right-sided pleural effusion as well as adult failure to thrive. He had thoracentesis done with 390 cc of fluid removed. Pleural fluid results showed an exudative effusion, and cytology showed acute inflammatory cells concerning for infectious cause and no malignant cells. He was treated with IV antibiotics with some improvement in symptoms. He did require 2 L nasal cannula on discharge. His therapy scores were borderline but he was able to be discharged home with home health care. Since returning home, patient has continued to be fairly weak but has been able to complete his ADLs with some assistance from family. However, over the past 2 to 3 days now he has become even more weak and essentially been unable to get out of bed due to weakness and fatigue. In the ED he was noted to be in new onset A-fib with RVR with rate to the 130s and was hypotensive to the 80s systolic. He was otherwise afebrile and satting in the mid to high 90s on 2 L nasal cannula at rest. CTA chest showed no PE, did show stable right pleural effusion with acute angle suggesting loculation as well as adjacent right lung densities likely representing mixed infectious versus inflammatory process as well as atelectasis. CBC and BMP were unremarkable. Troponin trend 36 > 33 > 41. BNP 2677. He was given 3 boluses of IV Cardizem in the ED with significant improvement in heart rate to the 80s, but he did remain in A-fib. He was also given 1 L of IV fluids in the ED with improvement in his blood pressure. Given these findings, hospitalist was contacted for admission. I saw the patient at bedside in the ED, and daughter were present. Patient was laying back in bed comfortably and in no acute distress. He appeared quite fatigued and weak. He answered most of my questions with short appropriate responses. He denied any acute pain or discomfort. Denied any palpitations. On discussion with patient and family, they were agreeable to starting a blood thinner for stroke prevention in the setting of new onset A-fib. He was given a dose of therapeutic Lovenox in the ED and will start Eliquis on admission. No other acute concerns currently. Will be admitted for further management. [facility] Medical History Wears hearing aid Pressure ulcer Ambulates with cane Easy bruising History of broken collarbone Blackout Shortness of breath on exertion Hx of fracture of hip Former smoker Vitamin D insufficiency Abnormal results of thyroid function studies Loss of hearing Wears glasses Wears partial dentures Cancer Alcohol use Arthritis Back pain History of edema History of SIADH Chronic bronchitis Hydronephrosis Former smoker Closed intertrochanteric fracture of left femur Kidney failure Prostate cancer Hyponatremia Prostatic cancer Home Medications ?Medication ?Instructions ?Recorded ?Last Taken ?Type acetaminophen 325 mg tablet 650 mg (2 x 325 mg) PO Q6H PRN PRN 12/11/24 Unknown Rx Pain 1-10 Or Fever>100.7 #30 tabs albuterol sulfate 90 mcg/actuation 2 inh inhalation Q6H PRN shortness 12/11/24 Unknown Rx breath activated powder inhaler of breath #1 ea Allergy/AdvReac Type Severity Reaction Status Date / Time No Known Allergies Allergy Verified 01/06/25 11:59 Family History Mother Heart disease Father Heart disease Surgical History History of cystoscopy Hx of cystoscopy History of open reduction and internal fixation (ORIF) procedure History of open reduction and internal fixation (ORIF) procedure History of transurethral resection of prostate Status post appendectomy History of renal stent H/O hernia repair Social History household members: spouse and other details: 2 st0ry house. He sleeps downstairs in a recliner. 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 Tobacco: How many years used: 67 how long ago did patient quit smoking: He quit in 2019 alcohol intake: current alcohol intake frequency: holidays/special occasions only substance use type: does not use ROS Constitutional Constitutional: Reports fatigue, malaise and weakness; Denies chills or fever(s) Eyes Eyes: Denies change in vision Cardiovascular Cardiovascular: Denies chest pain, dyspnea on exertion, edema, lightheadedness or palpitations Respiratory/Chest Respiratory/Chest: Denies cough, productive cough, shortness of breath at rest or wheezing Gastrointestinal Gastrointestinal: Denies abdominal pain Musculoskeletal Musculoskeletal: Denies arthralgias or myalgias Neurologic Neurologic: Denies dizziness, focal weakness, headache(s), numbness or tingling Vital Signs Vital Signs Vital Signs: 01/06/25 12:01 01/06/25 12:04 01/06/25 12:06 Temperature 97.4 F L Temperature Source Oral Pulse Rate 174 H Respiratory Rate 18 Respiratory Effort Normal Non-Labored Blood Pressure 104/69 Blood Pressure Mean 80 Pulse Ox 82 99 Oxygen Delivery Method Room Air Room Air Oxygen Flow Rate (L/min) 2 01/06/25 12:30 01/06/25 12:41 01/06/25 12:45 Temperature Temperature Source Pulse Rate 124 H 130 H Respiratory Rate 30 H 21 H Respiratory Effort Blood Pressure 80/51 L 105/41 L Blood Pressure Mean 59 60 Pulse Ox 97 Oxygen Delivery Method Room Air Oxygen Flow Rate (L/min) 2 01/06/25 12:52 01/06/25 13:00 01/06/25 13:04 Temperature 98 F 97.7 F L Temperature Source Oral Oral Pulse Rate 93 99 81 Respiratory Rate 14 20 H 20 H Respiratory Effort Blood Pressure 105/41 L 78/48 L 82/43 L Blood Pressure Mean 62 59 56 Pulse Ox 95 99 Oxygen Delivery Method Room Air Oxygen Flow Rate (L/min) 01/06/25 13:15 01/06/25 13:30 01/06/25 13:45 Temperature Temperature Source Pulse Rate 76 77 79 Respiratory Rate 21 H 20 H 21 H Respiratory Effort Blood Pressure 78/44 L 82/43 L 91/61 Blood Pressure Mean 55 55 70 Pulse Ox 97 100 98 Oxygen Delivery Method Oxygen Flow Rate (L/min) 01/06/25 14:00 01/06/25 14:00 01/06/25 14:15 Temperature 97.4 F L Temperature Source Oral Pulse Rate 75 74 Respiratory Rate 18 19 H Respiratory Effort Blood Pressure 90/62 98/46 L 98/46 L Blood Pressure Mean 72 63 62 Pulse Ox 99 99 100 Oxygen Delivery Method Nasal Cannula Oxygen Flow Rate (L/min) 3 01/06/25 14:45 01/06/25 15:00 01/06/25 15:00 Temperature 97.5 F L Temperature Source Axillary Pulse Rate 77 79 Respiratory Rate 18 Respiratory Effort Blood Pressure 103/52 L 91/56 L 91/56 L Blood Pressure Mean 67 67 68 Pulse Ox 95 100 100 Oxygen Delivery Method Nasal Cannula Oxygen Flow Rate (L/min) 3 01/06/25 15:15 01/06/25 15:30 01/06/25 15:45 Temperature Temperature Source Pulse Rate 76 77 Respiratory Rate 16 14 Respiratory Effort Blood Pressure 85/58 L 91/59 L 107/56 L Blood Pressure Mean 68 69 70 Pulse Ox 99 94 100 Oxygen Delivery Method Oxygen Flow Rate (L/min) 01/06/25 16:00 01/06/25 16:00 Temperature 98.1 F Temperature Source Oral Pulse Rate 81 Respiratory Rate 18 Respiratory Effort Blood Pressure 101/50 L 103/55 L Blood Pressure Mean 67 71 Pulse Ox 99 94 Oxygen Delivery Method Oxygen Flow Rate (L/min) Weight Weight: 56.4 kg Body Mass Index (BMI) 17.8 Physical Exam Const alert and no apparent distress Constitutional Narrative: Elderly male, thin and chronically ill-appearing, fatigued and weak appearing, otherwise laying back comfortably in bed, answering questions with short appropriate responses, in no acute distress. General Appearance: cooperative and comfortable HEENT normocephalic, head/scalp atraumatic, hearing grossly normal bilaterally, nasal mucous membranes and turbinates normal and moist oral mucous membranes Eyes PERRL, EOMs intact bilaterally and conjunctivae normal Neck full ROM Chest inspection of chest normal Resp normal respiratory effort and no use of accessory muscles Resp Narrative: Breathing comfortably on 2 L nasal cannula at rest. Crackles noted in bilateral lung bases but otherwise good air movement throughout with no wheezing noted. Cardio no murmurs and peripheral pulses 2+ throughout Cardio Narrative: A-fib, rate controlled. GI normal to inspection, nondistended, normoactive bowel sounds, soft to palpation, non-tender and non-distended Back/Spine normal ROM Extremity normal to inspection, full ROM and no pedal edema Skin Skin Narrative: Stage I-II sacral ulcers noted in very stages of healing. No open wounds noted. Neuro moves all extremities and no focal motor deficits Neuro Narrative: Generalized weakness noted. Psych mental status grossly normal Psych Narrative: Flat affect. Results Lab / Micro Data 01/06/25 12:45 01/06/25 12:45 Labs: Laboratory Results - last 24 hr 01/06/25 12:45: WBC 11.2 H, RBC 4.77, Hgb 14.0, Hct 44.1, MCV 92.5, MCH 29.4, MCHC 31.7 L, RDW Std Deviation 46.7 H, RDW Coeff of Michael 13.7, Plt Count 184, MPV 10.4, Immature Gran % (Auto) 1.900 H, Neut % (Auto) 88.6 H, Lymph % (Auto) 3.9 L, Karnes % (Auto) 4.9, Eos % (Auto) 0.0, Baso % (Auto) 0.7, Absolute Neuts (auto) 9.9 H, Absolute Lymphs (auto) 0.44 L, Nucleated RBC % 0, Sodium 133, Potassium 4.0, Chloride 99, Carbon Dioxide 23.7, Anion Gap 11, BUN 26 H, Creatinine 0.77, Estim Creat Clear Calc 49.94 L, Est GFR (MDRD) Non-Af 86, BUN/Creatinine Ratio 33.9 H, Glucose 127 H, Calcium 8.3, Magnesium 2.4 H, Troponin T High Sens 36 H, NT pro BNP II 2677 H 01/06/25 13:25: PT 15.6 H, INR 1.2, APTT 31.4 01/06/25 14:21: Lactic Acid 2.0, Troponin T Hi Sens 2 Hr 33 H 01/06/25 15:42: Urine Color Yellow, Urine Clarity Clear, Urine pH 6.0, Ur Specific Morse 1.010, Urine Protein 30 H, Urine Glucose (UA) Normal, Urine Ketones Negative, Urine Occult Blood 50 H, Urine Nitrite Negative, Urine Bilirubin Negative, Urine Urobilinogen 1 H, Ur Leukocyte Esterase 100 H Micro: Microbiology 01/06/25 13:30 Mucosa - Nose SARS-CoV-2, Influenza & RSV (PCR) - Final Imaging Radiology Impression Chest X-Ray 01/06/25 13:30 IMPRESSION: Likely areas of consolidation in the right middle and lower lung field, predominating in the lower lobe, with underlying pleural effusion again identified. Loculated areas of posterior effusion are not excluded. PA and lateral views the chest are recommended, with consideration of CT if clinically indicated. Reading Location[facility] Chest CTA 01/06/25 14:55 IMPRESSION: No evidence of pulmonary embolism. Stable right pleural effusion with acute angles suggesting loculation. Adjacent right lung densities likely representing mixed infectious or inflammatory process and atelectasis. Unchanged left lower lobe density that may represent scarring, though neoplasm cannot be excluded; consider PET-CT if clinically indicated. [id number]-[id number]-[id number] centrilobular emphysema. Stable compression deformities of the thoracic spine with diffuse osseous demineralization. Moderate atherosclerosis with coronary artery calcifications. Reading Location: [address] Assessment & Plan Assessment/Plan (1) Atrial fibrillation, new onset: PLAN: Plan Patient is an 89-year-old male who presented to ED on 01/06/2025 with generalized weakness and fatigue. 1. New onset A-fib with RVR ? Admit under inpatient status to PCU. EKG showed new onset A-fib with RVR with heart rate in the 130s, no ischemic changes noted. Troponin trend 36 > 33 > 41, mildly elevated suspected secondary to A-fib with RVR and mild degree of dehydration. BNP 2677. CTA chest with findings as below, no significant pulmonary edema noted and patient stable on home 2 L nasal cannula. Given 3 doses of IV Cardizem in the ED with significant rate improvement to the 80s. Will start p.o. Lopressor 25 mg twice daily. Echocardiogram ordered. Discussed with patient and family and they are agreeable to initiating anticoagulation. Given dose of therapeutic Lovenox in the ED and will start Eliquis tomorrow morning. Monitor cardiac telemetry. 2. Persistent right sided pneumonia with pleural effusion in setting of COPD with chronic hypoxic respiratory failure ? Buckle Gluer consulted. CTA chest showed stable right pleural effusion with acute angles suggesting loculation, as well as adjacent right lung densities likely representing mixed infectious versus inflammatory processes. Was hospitalized here from 12/07-12/11 for pneumonia, see HPI for further details. In short, had thoracentesis done with 390 cc of pleural fluid removed. Fluid studies showed an exudative effusion and cytology showed acute inflammatory cells but no malignant cells noted. Patient was treated with IV antibiotics while inpatient with some improvement and then discharged home to complete a course of p.o. antibiotics. He did require 2 L nasal cannula on discharge and is stable on 2 L nasal cannula at this time. Will treat with IV vancomycin and Zosyn for now. No systemic signs of infection noted. Appreciate further lean leader recommendations. 3. Adult failure to thrive ? PT/OT/case management consulted. Patient had borderline therapy scores during recent hospitalization in November but refused SNF placement and was discharged home with home health care. Patient has been essentially unable to get out of bed over the past few days and has not been completing his ADLs at home. Patient and family may be more amenable to SNF placement on this discharge if needed. Chronic medical conditions: ? Chronic sacral wounds: Noted to have stage I-II sacral ulcers in the ED and very stages of healing. No open wounds noted. No need for wound care consult at this time. ? History of prostate cancer s/p TURP and chronic ureteral stent placement: Follows with Dr. Hollingsworth. Most recent right sided stent change with retrograde pyelogram was done in August with no new findings noted. Continue outpatient follow-up. ? History of right hip fracture s/p ORIF repair DVT prophylaxis: Not indicated, on Eliquis CODE STATUS: DNR-CCA, DNI Expected disposition: TBD Total clinical time spent by myself addressing the patient's medical issues, reviewing all the data, and collaborating with patient's care team: 86 minutes. Charges/Coding Visit Charges Inpatient E&M: 11408 Init Hosp L3
[2025-01-06 17:27] LABS: Red Blood Cells-Urine 0-5 SEEN /hpf (0-5); Squamous Epithelial Cells - UA 0-5 SEEN /hpf (0-5)
[2025-01-06] MEDS: Vancomycin HCl 750 MG in 0.9% Normal Saline (250mL Bag) 250 ML 250 MG IV (17:27)
[2025-01-06 17:28] LABS: Mucous, Urine 1+ /hpf (<or=2+)
[2025-01-06 18:30] LABS: Reflex Lactate? Y
--- NOTE | 2025-01-06 19:21 | PCM.RX.CS ---
Consult Antibiotic Management Pharmacy has been consulted to manage selected antibiotic: Vancomycin Type of Intervention Type of Consult: New start Suspected Infection Suspected Infection: Pneumonia Prior Doses of Antibiotics Prior Doses of Antibiotics Received/Current Regimen: 750 mg in the ER @1727 Labs Labs: Sodium 133 mmol/L (133-145) 01/06/25 12:45 Potassium 4.0 mmol/L (3.3-5.1) 01/06/25 12:45 Chloride 99 mmol/L (98-108) 01/06/25 12:45 Carbon Dioxide 23.7 mmol/L (21.0-32.0) 01/06/25 12:45 Anion Gap 11 (5-15) 01/06/25 12:45 BUN 26 mg/dL (4-19) H 01/06/25 12:45 Creatinine 0.77 mg/dL (0.70-1.20) 01/06/25 12:45 Est GFR (MDRD) Non-Af 86 (>60) 01/06/25 12:45 BUN/Creatinine Ratio 33.9 RATIO (10-20) H 01/06/25 12:45 Glucose 127 mg/dL (70-99) H 01/06/25 12:45 Microbiology Microbiology: Microbiology 01/06/25 13:30 Mucosa - Nose SARS-CoV-2, Influenza & RSV (PCR) - Final Dosing Weight Weight used for dosin.6 kg Estimated Creatinine Clearance Estimated Creatinine Clearance: 50 ml/min Goal Trough Goal Trough: 15-20 mcg/mL Pharmacy Plan for Drug Dosing Pharmacy Plan for Drug Dosing: Consulting Physician: Dewey Indication: Pneumonia (new onset of A-FIB) Goal Trough: 15-20 SrCr: 0.77 mg/dL CrCl: 50ml/min Comments: Pharmacy Service monitor and adjust dosing as required. Vancomycin Dose: 500 mg q12h Pending Level: 01/08/2025 @0500 Follow-Up Labs Follow-Up Labs: Trough: Vancomycin Date/Time Labs Ordered Labs to be done on [date and time ordered]: 01/08/2025 @ 0500
--- NOTE | 2025-01-06 20:00 | NURSING ---
Unable to obtain blood sample for lactic acid per outreach worker. This RN attempted; unsuccessful x2. Primary RN made aware.
[2025-01-06 21:48] LABS: Troponin T High Sens 4 HR 41 ng/L (<=22)
--- NOTE | 2025-01-06 22:41 | CON.PCM.CC_ITS ---
HPI Consult Data Date of Consult: 01/06/25 HPI Narrative Reason for Consultation: Recurrent Pleural effusion, Pneumonia HPI Narrative: 89-year-old male with COPD not on home O2, Prostate cancer, Former smoker, SIADH, Recurrent Pleural effusion presented with generalized weakness, illness and not feeling well. Patient was at home with his and was not feeling well for last couple of days. There is a home health care worker that goes into the house, and patient was more weak and not able to form ADLs today like he was on Thursday. Patient has used a cane in the past to help walk around, has been using a walker in the last week. Patient cannot use a walker at this time secondary to generalized weakness. Patient was in the hospital a few days last week. Patient has no history of atrial fibrillation or atrial flutter. When initially asked patient if he has emphysema or COPD, he says no. He has smoked his whole life, just quit smoking 6 years ago. Patient does not wear oxygen during the day or nighttime. Patient has no headache or fever. Patient does not feel his heart racing. No chest pain or shortness of breath. No abdominal pain nausea or vomiting. Patient does admit to general weakness. Patient mouth is very dry. [facility] Medical History Wears hearing aid Pressure ulcer Ambulates with cane Easy bruising History of broken collarbone Blackout Shortness of breath on exertion Hx of fracture of hip Former smoker Vitamin D insufficiency Abnormal results of thyroid function studies Loss of hearing Wears glasses Wears partial dentures Cancer Alcohol use Arthritis Back pain History of edema History of SIADH Chronic bronchitis Hydronephrosis Former smoker Closed intertrochanteric fracture of left femur Kidney failure Prostate cancer Hyponatremia Prostatic cancer Home Medications ?Medication ?Instructions ?Recorded ?Last Taken ?Type acetaminophen 325 mg tablet 650 mg (2 x 325 mg) PO Q6H PRN PRN 12/11/24 Unknown Rx Pain 1-10 Or Fever>100.7 #30 tabs albuterol sulfate 90 mcg/actuation 2 inh inhalation Q6 H PRN shortness 12/11/24 Unknown Rx breath activated powder inhaler of breath #1 ea Allergy/AdvReac Type Severity Reaction Status Date / Time No Known Allergies Allergy Verified 01/06/25 11:59 Family History Mother Heart disease Father Heart disease Surgical History History of cystoscopy Hx of cystoscopy History of open reduction and internal fixation (ORIF) procedure History of open reduction and internal fixation (ORIF) procedure History of transurethral resection of prostate Status post appendectomy History of renal stent H/O hernia repair Social History household members: spouse and other details: 2 st0ry house. He sleeps downstairs in a recliner. 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 Tobacco: How many years used: 67 how long ago did patient quit smoking: He quit in 2019 alcohol intake: current alcohol intake frequency: holidays/special occasions only substance use type: does not use ROS ROS Narrative As per HPI Objective Data Objective Data Vital Signs: Vital Signs Last response 3 Temperature 36.9 C 01/06/25 20:30 Temperature Source Temporal 01/06/25 20:30 Pulse Rate 112 H 01/06/25 20:30 Respiratory Rate 16 01/06/25 20:30 Respiratory Effort Normal, Non-Labored 01/06/25 12:04 Blood Pressure 93/58 L 01/06/25 20:30 Blood Pressure Mean 69 01/06/25 20:30 Pulse Ox 96 01/06/25 20:30 Oxygen Delivery Method Nasal Cannula 01/06/25 20:30 Oxygen Flow Rate (L/min) 2 01/06/25 20:30 I&O: I&O Last 24 Hours 3 01/05/25 01/06/25 01/06/25 23:59 11:59 23:59 Intake Total 1000 / 1000 Balance 1000 / 1000 I&O: Total Stay 3 01/06/25 11:57 thru 01/06/25 18:41 Intake Total 1000 Balance 1000 Current Meds Ordered / Administered: Current meds ordered / Administered 3 Generic Name Dose Route Start Last Admin Trade Name Freq PRN Reason Stop Dose Admin Acetaminophen 650 mg 01/06/25 18:41 Acetaminophen 325 Mg Tablet PO Q6H PRN PRN Pain 1-10 Or Fever>100.7 Albuterol/Ipratropium 3 ml 01/06/25 22:45 Ipratropium/Albuterol Sulfate 3 Ml Ampul.Neb INHALATION Q6H.RT EDWARD Apixaban 5 mg 01/07/25 10:00 Apixaban 5 Mg Tablet PO BID EDWARD Sodium Chloride 1,000 mls @ 15 mls/hr 01/06/25 12:15 01/06/25 15:36 IV Not Given .Q48H EDWARD Sodium Chloride 1,000 mls @ 150 mls/hr 01/06/25 12:45 01/06/25 15:37 IV 150 mls/hr .Q6H40M EDWARD Administration Vancomycin IV-PHARMACY TO DOSE 500 mls @ 250 mls/hr 01/06/25 18:41 1 each/ Sodium Chloride IV X1 PRN Rx to Dose Protocol Piperacillin Sod/Tazobactam 50 mls @ 12.5 mls/hr 01/06/25 22:00 Sod 3.375 gm/ Sodium Chloride IV Q8 EDWARD Sodium Chloride 250 mls @ 15 mls/hr 01/06/25 18:48 IV .[id number] PRN Saline Flush Sodium Chloride 250 mls @ 15 mls/hr 01/06/25 18:48 IV .[id number] PRN Additional IVPB Infusion Vancomycin HCl 500 mg/ Sodium 110 mls @ 100 mls/hr 01/07/25 05:30 Chloride IV Q12H [facility] Influenza Virus Vaccine 180 mcg 01/07/25 10:00 Flu Vaccine High Dose 25-26(65yr Up) 180 Mcg/0.5 Ml Syringe IM 01/07/25 10:01 .ONCE ONE Melatonin 3 mg 01/06/25 18:41 Melatonin 3 Mg Tablet PO QHS PRN PRN INSOMNIA Methylprednisolone Sodium Succinate 40 mg 01/06/25 22:45 Methylprednisolone Sod Succ 40 Mg/Ml Vial IV Q8 [facility] Ondansetron HCl 4 mg 01/06/25 18:41 Ondansetron 4 Mg/2 Ml Vial IV Q8H PRN PRN NAUSEA/VOMITING Sodium Chloride 10 - 40 ml 01/06/25 18:48 0.9% Saline Lock 10 Ml Syringe IV UD PRN SALINE FLUSH Vancomycin Protocol 1 lab 01/08/25 04:00 Vancomycin Trough/Random Due MC 01/08/25 06:00 DAILY [facility] Physical Exam Narrative PHYSICAL EXAMINATION General: no acute distress; Cachectic, hard of hearing HEENT: PERRL; EOMI; Anicteric Sclera; No thyromegaly, JVD, Lymphadenopathy Cardiovascular: Regular Rate and Rhythm; No murmurs, rubs, gallops; no displaced PMI Respiratory: no crackles, wheezes, or rhonchi, coarse breath sounds Abdominal: Non-tender; Non-distended; Active BS x 4; No Hepatosplenomegaly Extremities: Warm, well perfused; No clubbing, cyanosis, edema; capillary refill < 2sec Neurological: unable to perform Lab / Micro Data 01/06/25 12:45 01/06/25 12:45 Labs: Laboratory Results - last 24 hr 01/06/25 12:45: WBC 11.2 H, RBC 4.77, Hgb 14.0, Hct 44.1, MCV 92.5, MCH 29.4, M CHC 31.7 L, RDW Std Deviation 46.7 H, RDW Coeff of Michael 13.7, Plt Count 184, MPV 10.4, Immature Gran % (Auto) 1.900 H, Neut % (Auto) 88.6 H, Lymph % (Auto) 3.9 L , [place] % (Auto) 4.9, Eos % (Auto) 0.0, Baso % (Auto) 0.7, Absolute Neuts (auto) 9.9 H, Absolute Lymphs (auto) 0.44 L, Nucleated RBC % 0, Sodium 133, Potassium 4.0, Chloride 99, Carbon Dioxide 23.7, Anion Gap 11, BUN 26 H, Creatinine 0.77, Estim Creat Clear Calc 49.94 L, Est GFR (MDRD) Non-Af 86, BUN/Creatinine Ratio 33.9 H, Glucose 127 H, Calcium 8.3, Magnesium 2.4 H, Troponin T High Sens 36 H, NT pro BNP II 2677 H 01/06/25 13:25: PT 15.6 H, INR 1.2, APTT 31.4 01/06/25 14:21: Lactic Acid 2.0, Troponin T Hi Sens 2 Hr 33 H 01/06/25 15:42: Urine Color Yellow, Urine Clarity Clear, Urine pH 6.0, Ur Specific [place] 1.010, Urine Protein 30 H, Urine Glucose (UA) Normal, Urine Ketones Negative, Urine Occult Blood 50 H, Urine Nitrite Negative, Urine Bilirubin Negative, Urine Urobilinogen 1 H, Ur Leukocyte Esterase 100 H, Urine RBC 0-5 SEEN, Urine WBC 5-10 SEEN, Ur Squamous Epith Cells 0-5 SEEN, Urine Bacteria 1+, Urine Mucus 1+ 01/06/25 19:48: Troponin T Hi Sens 4Hr 41 H Micro: Microbiology 01/06/25 13:30 Mucosa - Nose SARS-CoV-2, Influenza & RSV (PCR) - Final Imaging Radiology Impression Chest X-Ray 01/06/25 13:30 IMPRESSION: Likely areas of consolidation in the right middle and lower lung field, predominating in the lower lobe, with underlying pleural effusion again identified. Loculated areas of posterior effusion are not excluded. PA and lateral views the chest are recommended, with consideration of CT if clinically indicated. [facility] Chest CTA 01/06/25 14:55 IMPRESSION: No evidence of pulmonary embolism. Stable right pleural effusion with acute angles suggesting loculation. Adjacent right lung densities likely representing mixed infectious or inflammatory process and atelectasis. Unchanged left lower lobe density that may represent scarring, though neoplasm cannot be excluded; consider PET-CT if clinically indicated. [id number] centrilobular emphysema. Stable compression deformities of the thoracic spine with diffuse osseous demineralization. Moderate atherosclerosis with coronary artery calcifications. Reading Location: [address] Assessment and Plan . Assessment and plan: #Pneumonia #Loculated Effusion #UTI #COPD exacerbation #Former smoker #h/o Prostate cancer #SIADH Plan -Monitor patient's respiratory status and hemodynamics -Blood cultures, sputum cultures -IV abx-Vancomycin and Zosyn -ID consult -Check COVID/Flu A/B - negative -Check urine legionella and strep pneumoniae -Patient will need chest tube placement and trial of tPA and Dornase protocol for 3days. Discussed with hospitalist regarding recommendations. Plan to transfer if surgery can not placed chest tube. -Start on nebs -Start on steroids -Obtain ABG -If hypercapnic on ABG may need BiPAP Rest as per hospitalist. Critical Care Time: 70mins The entirety of this encounter was done via Telemedicine
--- NOTE | 2025-01-06 22:51 | PCM.HOSP.N ---
Hospitalist Note HR maintaining at 120-130 ventricular rate with short bursts to 150s. He received 3 separate boluses of diltiazem in the ER prior to arriving to the floor. BP 93/58. I ordered 5mg metoprolol IVP x1 with instructions to give 2.5mg now, wait 15minutes and give remaining 2.5mg.
--- NOTE | 2025-01-06 23:28 | PN.HOSP_ITS ---
Hospitalist Note Teleintensivist called me this evening to discuss the patient further. Given the CT chest findings of apparent loculated pleural effusion, he recommended that we proceed with chest tube placement and trial tPA and dornase protocol for 3 days. Unfortunately with no pulmonology in house this weekend, patient would need to be transferred to a tertiary facility for this. I discussed this over the phone with patient's daughter Aileen. She was at the bedside in the ED along with the patient's and she is heavily involved in the patient's care. On this discussion, she was concerned about the patient needing to have an invasive procedure done given his age, frailty and degree of debility. She wanted to hold off on transfer tonight and would like to discuss further with patient and patient's in the morning. She and family would also like to speak with human development professor if possible to discuss options with patient. Will hold off on initiating transfer at this time and continue to treat with IV antibiotics.
[2025-01-06 23:39] LABS: Allen Test Positive; Base Excess 6 mmol/L (-2 to +2); FI02 2.0; PO2 95 mmHG (75-100); SITE R Radial; SO2 98 % (95-99)
[2025-01-07] VITALS (10 sets, daily range): BP systolic 95–108; BP diastolic 54–66; PULSE 70–82; RESP 16–20; TEMP 36.3–36.9; O2SAT 92–96
[2025-01-07] MEDS: Vancomycin HCl 500 MG in 0.9% Normal Saline (100mL Bag) 100 ML 100 MG IV ×2 (05:02→17:33)
[2025-01-07] MEDS: 0.9% Normal Saline (250mL Bag) 250 ML 15 ML IV (05:03)
[2025-01-07] MEDS: 0.9% Saline Lock 10 ML Syringe IV ×3 (05:12→17:33)
[2025-01-07 06:25] LABS: Hematocrit 33.8 % (40-54); Hemoglobin 10.8 g/dL (13.0-16.5); Mean Corp Hgb Conc 32.0 g/dL (32-36); Mean Corpuscular Volume 90.1 fL (80-94); Mean Platelet Vol. 9.6 fl (6.2-12.0); Platelet Count 242 K/mm3 (150-450); RBC Distribution Width CV 13.8 % (11.6-14.6); RBC Distribution Width SD 45.5 fl (35.1-43.9); Red Blood Count 3.75 M/mm3 (4.6-6.2); White Blood Count 12.1 K/mm3 (4.4-11.0)
--- NOTE | 2025-01-07 06:35 | NURSING ---
Pt seems to have difficulty trusting staff. States, this is a scam. Pt requests to call his daughter, Aileen. This RN dialed pt room phone. This RN gave update to pt daughter and pt spoke with her as well.
[2025-01-07 06:50] LABS: Anion Gap 9 (5-15); BUN 21 mg/dL (4-19); BUN/Creat Ratio 32.1 RATIO (10-20); Calcium,Total 7.8 mg/dL (7.6-11.0); Carbon Dioxide 24.4 mmol/L (21.0-32.0); Chloride 103 mmol/L (98-108); Estimated Creatinine Clearance 44.80 ml/min (50-250); Glucose 135 mg/dL (70-99); Potassium 3.8 mmol/L (3.3-5.1)
[2025-01-07] MEDS: Piperacil/Tazobactam 3.375 GM in 0.9% Normal Saline (50mL MB+) 50 ML IV ×3 (06:50→21:49)
--- NOTE | 2025-01-07 07:28 | PCM.PN.HOSP ---
Reason for Visit Chief Complaint: Generalized weakness and fatigue Objective Data Objective Data Vital Signs: Vital Signs Temp Pulse Resp BP Pulse Ox O2 Del Method O2 Flow Rate 98.4 F 72 16 95/57 L 96 Nasal Cannula 1 01/07/25 02:23 01/07/25 02:23 01/07/25 02:23 01/07/25 02:23 01/07/25 02:23 01/07/25 03:00 01/07/25 02:23 Oxygen Flow Rate (L/min) 1 Oxygen Delivery Method Nasal Cannula Weight: 111 lb 8.862 oz Body Mass Index (BMI) 16.5 Intake & Output: Intake and Output for Last 24 Hours 01/05/25 01/06/25 01/07/25 23:59 23:59 23:59 Intake Total 5 / 5 50 / 50 Output Total 300 / 300 Balance 2314 / 2314 -250 / -250 Lab / Micro Data 01/07/25 05:18 01/07/25 05:18 Labs: Laboratory Results - last 24 hr 01/06/25 12:45: WBC 11.2 H, RBC 4.77, Hgb 14.0, Hct 44.1, MCV 92.5, MCH 29.4, MCHC 31.7 L, RDW Std Deviation 46.7 H, RDW Coeff of Michael 13.7, Plt Count 184, MPV 10.4, Immature Gran % (Auto) 1.900 H, Neut % (Auto) 88.6 H, Lymph % (Auto) 3.9 L, [place] % (Auto) 4.9, Eos % (Auto) 0.0, Baso % (Auto) 0.7, Absolute Neuts (auto) 9.9 H, Absolute Lymphs (auto) 0.44 L, Nucleated RBC % 0, Sodium 133, Potassium 4.0, Chloride 99, Carbon Dioxide 23.7, Anion Gap 11, BUN 26 H, Creatinine 0.77, Estim Creat Clear Calc 49.94 L, Est GFR (MDRD) Non-Af 86, BUN/Creatinine Ratio 33.9 H, Glucose 127 H, Calcium 8.3, Magnesium 2.4 H, Troponin T High Sens 36 H, NT pro BNP II 2677 H 01/06/25 13:25: PT 15.6 H, INR 1.2, APTT 31.4 01/06/25 14:21: Lactic Acid 2.0, Troponin T Hi Sens 2 Hr 33 H 01/06/25 15:42: Urine Color Yellow, Urine Clarity Clear, Urine pH 6.0, Ur Specific [place] 1.010, Urine Protein 30 H, Urine Glucose (UA) Normal, Urine Ketones Negative, Urine Occult Blood 50 H, Urine Nitrite Negative, Urine Bilirubin Negative, Urine Urobilinogen 1 H, Ur Leukocyte Esterase 100 H, Urine RBC 0-5 SEEN, Urine WBC 5-10 SEEN, Ur Squamous Epith Cells 0-5 SEEN, Urine Bacteria 1+, Urine Mucus 1+ 01/06/25 19:48: Troponin T Hi Sens 4Hr 41 H 01/06/25 23:59: Lactic Acid 1.6 01/07/25 05:18: WBC 12.1 H, RBC 3.75 L, Hgb 10.8 L, Hct 33.8 L, MCV 90.1, MCH 28.8, MCHC 32.0, RDW Std Deviation 45.5 H, RDW Coeff of Michael 13.8, Plt Count 242, MPV 9.6, Sodium 136, Potassium 3.8, Chloride 103, Carbon Dioxide 24.4, Anion Gap 9, BUN 21 H, Creatinine 0.65 L, Estim Creat Clear Calc 44.80 L, Est GFR (MDRD) Non-Af 90, BUN/Creatinine Ratio 32.1 H, Glucose 135 H, Calcium 7.8 Micro: Microbiology 01/06/25 15:42 Urine, Clean Catch Legionella Antigen - Final 01/06/25 15:42 Urine, Clean Catch Streptococcus pneumoniae Antigen (M - Final 01/06/25 13:30 Mucosa - Nose SARS-CoV-2, Influenza & RSV (PCR) - Final ABG Data ABG results: ABG 01/06/25 23:36 Specimen Type ART Sample Site R Radial pH 7.45 Bicarbonate Actual 29.6 H Total CO2 31 Base Excess 6 H O2 Saturation 98 O2 % 2.0 ABG pCO2 42.3 ABG pO2 95 Lawson Test Positive O2 Delivery Device Cannula Vent Mode Not entered Radiography Diagnostic Testing: Radiology Impression Chest X-Ray 01/06/25 13:30 IMPRESSION: Likely areas of consolidation in the right middle and lower lung field, predominating in the lower lobe, with underlying pleural effusion again identified. Loculated areas of posterior effusion are not excluded. PA and lateral views the chest are recommended, with consideration of CT if clinically indicated. Reading Location: [facility] Chest CTA 01/06/25 14:55 IMPRESSION: No evidence of pulmonary embolism. Stable right pleural effusion with acute angles suggesting loculation. Adjacent right lung densities likely representing mixed infectious or inflammatory process and atelectasis. Unchanged left lower lobe density that may represent scarring, though neoplasm cannot be excluded; consider PET-CT if clinically indicated. [id number] centrilobular emphysema. Stable compression deformities of the thoracic spine with diffuse osseous demineralization. Moderate atherosclerosis with coronary artery calcifications. Reading Location: [address] Physical Exam Narrative Seen and examined. Patient has 30 pack years of his smoking and COPD. Has chronic cough. Shortness of breath on exertion. Has a loculated right lower effusion and engineering intern recommended tube thoracostomy with fibrinolytics trial of tPA and dornase protocol for 3 days Physical exam General: Alert, Oriented x3, Cooperative HEENT: Atraumatic, PERRLA, EOMI, Normocephalic. Oral: No Gingival or Mucosal Lesions/ Ulcerations Neck: Supple, No JVD, Negative Carotid Bruits Chest wall/Lungs: Air entry diminished in bilateral lung bases right more than left. Mild coarse crepitations Cardiovascular: Sinus rate, Normal S1,S2, soft systolic murmur Abdomen: Bowel Sounds Present, Soft, Non Tender, Non-Distended : No dysuria. No renal angle tenderness. No suprapubic tenderness. Extremities: Mild pedal 2+ edema, Capillary Refill Less than 3 Seconds Skin: Small bruise over right knee Musculoskeletal: No Tenderness to Palpation of Joints or Extremities Neurological: Cranial nerves II-XII grossly intact, DTR 2+/4. No acute focal neurological deficit. Psych/Mental Status: Flat affect, Appropriate. Assessment & Plan Assessment/Plan (1) Atrial fibrillation, new onset: PLAN: Plan Patient is an 89-year-old male who presented to [facility] ED on 01/06/2025 with generalized weakness, not able to do ADLs and fatigue for last couple days. Usually uses cane but has been using walker last week but even he was not able to use on day of admission 1. New onset A-fib with RVR ? Admit under inpatient status to PCU. EKG showed new onset A-fib with RVR with heart rate in the 130s, no ischemic changes noted. Troponin trend 36 > 33 > 41, mildly elevated suspected secondary to A-fib with RVR and mild degree of dehydration. BNP 2677. CTA chest with findings as below, no significant pulmonary edema noted and patient stable on home 2 L nasal cannula. Given 3 doses of IV Cardizem in the ED with significant rate improvement to the 80s. On Lopressor 25 mg twice daily. Echocardiogram ordered. Discussed with patient and family and they are agreeable to initiating anticoagulation. Given dose of therapeutic Lovenox in the ED and started Eliquis tomorrow morning. 01/07: Twelve-lead EKG reviewed. First EKG shows SVT at 176 beats minute. Repeat EKG A-fib RVR 108 bpm. Patient converted overnight in sinus rhythm, heart rate is controlled, 82/min. rags laborer shows sinus rhythm. Continue metoprolol and Eliquis. [id number] score is is 4, 2 for age, 1 for CHF and 1 for PAD/ANGEL status post stent. CHF probably might be new as NT proBNP high 2677. 2D echo is ordered. 2. Persistent right sided pneumonia with pleural effusion in setting of COPD with chronic hypoxic respiratory failure ? Lead Neurodiagnostic Technologist consulted. CTA chest showed stable right pleural effusion with acute angles suggesting loculation, as well as adjacent right lung densities likely representing mixed infectious versus inflammatory processes. Was hospitalized here from 12/07-12/11 for pneumonia, had thoracentesis done with 390 cc of pleural fluid removed. Fluid studies showed an exudative effusion and cytology showed acute inflammatory cells but no malignant cells noted. Patient was treated with IV antibiotics and discharged on p.o. antibiotics. He did require 2 L nasal cannula on discharge and is stable on 2 L nasal cannula at this time. Started with IV vancomycin and Zosyn for now. No systemic signs of infection noted. Appreciate further magento developer recommendations. 01/06: Discussed with the family regarding the right lower loculated effusion with previous pleural fluid analysis shows exudative effusion. Patient was evaluated by engineering intern who recommended tube thoracostomy with fibrinolytics trial of tPA and dornase protocol for 3 days. Patient's daughter and son-in-law was given option for transfer for fumigate treatment with tube thoracostomy which will need thoracic surgery evaluation. They have not decided either way and therefore continue present treatment. Here, we can only do thoracocentesis but with loculated effusion it would not be complete and will recur as happened this time. On talking to the patient himself he said he is 89-year-old and does not want aggressive treatment and wants to be left alone. 3. Adult failure to thrive ? PT/OT/case management consulted. Patient had borderline therapy scores during recent hospitalization in November but refused SNF placement and was discharged home with home health care. Patient has been essentially unable to get out of bed over the past few days and has not been completing his ADLs at home. Patient and family may be more amenable to SNF placement on this discharge if needed. Chronic medical conditions: ? Chronic sacral wounds: Noted to have stage I-II sacral ulcers in the ED and very stages of healing. No open wounds noted. No need for wound care consult at this time. ? History of prostate cancer s/p TURP and chronic ureteral stent placement: Follows with Dr. Hollingsworth. Most recent right sided stent change with retrograde pyelogram was done in August with no new findings noted. Continue outpatient follow-up. ? History of right hip fracture s/p ORIF repair DVT prophylaxis: Not indicated, on Eliquis CODE STATUS: DNR-CCA, DNI Expected disposition: TBD Charges/Coding Addendum Addendum: Total time of the visit including total time spent in counseling or coordination of care, (more than 50% of the total time, spent in obtaining medical information from nurses and other ancillary care providers ,explaining to the patient about labs, imaging, diagnosis and management of active complex medical conditions), multiple active issues including loculated right pleural effusion, A-fib RVR and heart failure, review of labs and imaging is 35 minutes. Visit Charges Inpatient E&M: 56361 [facility] Hosp L3
--- NOTE | 2025-01-07 09:45 | ECHOCS_ITS ---
Reason For Study Reason For Study: SOB, AFib Procedure This was a 2D Doppler, Color Flow transthoracic echocardiogram. Exam performed portable in patient room. Left Ventricle Normal size and thickness. The left ventricular ejection fraction is 60 %. Unable to assess diastolic dysfunction due to arrhythmia. Right Ventricle Normal right ventricle. Atria The left and right atria are normal. Mitral Valve Moderate mitral annular calcification. Mild (1+) mitral valve insufficiency. Tricuspid Valve Moderate-Severe (3+) tricuspid valve insufficiency. RVSP estimated between 46-56 mmHg. Aortic Valve Moderate to severely calcified aortic valve. Mild aortic valve stenosis. Mean peak gradient 10 mmHg. Aortic valve area 1.5 cm??. Trivial aortic valve insufficiency. Pulmonic Valve The pulmonic valve is not well visualized. Great Vessels The aortic root is not well visualized. Pericardium/Pleural No pericardial effusion. MMode/2D Measurements & Calculations LVIDd: 3.6 cm IVSd: 0.91 cm LVOT diam: 2.2 cm LVIDs: 2.9 cm LVPWd: 0.77 cm LVOT area: 3.7 cm2 RVDd: 3.0 cm FS: 20.8 % LAV(MOD-bp): 32.9 ml LVAd ap4: 22.7 cm2 SV(MOD-sp4): 36.5 ml LAV(MOD-bp) Indexed: 20.5 ml/m2 LVLd ap4: 7.9 cm SI(MOD-sp4): 22.7 ml/m2 LAV(MOD-sp2): 30.7 ml EDV(MOD-sp4): 54.6 ml LAV(MOD-sp4): 27.9 ml EDV(sp4-el): 55.6 ml LVAs ap4: 12.1 cm2 LVLs ap4: 7.1 cm ESV(MOD-sp4): 18.2 ml ESV(sp4-el): 17.6 ml EF(MOD-sp4): 66.7 % EF(sp4-el): 68.4 % SV(sp4-el): 38.0 ml LA A4 area: 13.8 cm2 RA A4 area: 14.8 cm2 Time Measurements MV dec time: 0.26 sec Doppler Measurements & Calculations MV E max martinez: 60.6 cm/sec Lat Peak E' Martinez: 13.9 cm/sec Med Peak E' Martinez: 10.1 cm/sec MV A max martinez: 97.8 cm/sec E/E' lat: 4.4 E/E' med: 6.0 MV E/A: 0.62 MV V2 max: 128.6 cm/sec MV P1/2t max martinez: 63.1 cm/sec Ao V2 max: 207.3 cm/sec MV max P.6 mmHg MV P1/2t: 94.3 msec Ao max P.4 mmHg MV V2 mean: 55.0 cm/sec Ao V2 mean: 144.1 cm/sec MV mean P.5 mmHg MV dec slope: 195.9 cm/sec2 Ao mean P.6 mmHg MV V2 VTI: 25.6 cm MVA(P1/2t): 2.3 cm2 Ao V2 VTI: 42.7 cm AV (velocity ratio): 0.41 MVA(VTI): 2.5 cm2 URMILA(I,D): 1.5 cm2 URMILA(V,D): 1.5 cm2 LV V1 max: 81.3 cm/sec SV(LVOT): 64.3 ml TR max martinez: 322.0 cm/sec LV V1 max P.7 mmHg TR max P.5 mmHg LV V1 mean P.3 mmHg LV V1 mean: 51.2 cm/sec LV V1 VTI: 17.4 cm ECHO/Echo Complete Interpretation Summary The left ventricular ejection fraction is 60 %. Moderate mitral annular calcification. Mild (1+) mitral valve insufficiency. Moderate-Severe (3+) tricuspid valve insufficiency. RVSP estimated between 46-56 mmHg. Moderate to severely calcified aortic valve. Mild aortic valve stenosis. Mean p eak gradient 10 mmHg. Aortic valve area 1.5 cm??. Ordering Physician: Sung Sharma Performed By: Jarrell Garcia RCS
--- NOTE | 2025-01-07 10:41 | CASEMGMT ---
Social Work CHUN met with pt's dgt Aileen and her spouse and introduced self and role of SW. Per Aileen, pt is normally A&Ox3 but over the last few days has become increasingly confused. Pt lives at home with his . PT's has dementia and pt usually manages his per . Pt was receiving home health services through [facility]. [facility] was working to get pt directly admitted from home to TCU due to recent decline. TCU had accepted pt. Yesterday, pt became extremely weak and pt's dgt was not able to get pt in the car to bring to TCU and therefore EMS was called and pt was brought to the ED and subsequently admitted to acute hospital. Per physician, pt is here through the weekend and family is deciding if they would want pt to transfer to tertiary hospital if needed for a procedure. CHUN explained to Aileen, that SW would follow back up with family on Thursday to discuss discharge plan. Pt family uncertain about medical plan at this time. Family does not feel pt can return home. CHUN offered a SNF list of options and family declined the list at this time. CHUN will follow up on Thursday to continue discussion regarding SNF placement. CHUN sent email update to Anastasia in TCU with current situation. ISABELL Busch
[2025-01-07] MEDS: APIXABAN 5 MG TABLET PO ×2 (11:14→21:48)
[2025-01-07] MEDS: FLU VACCINE HIGH DOSE 25-26(65YR UP) 180 MCG/0.5 ML SYRINGE IM (11:15)
--- NOTE | 2025-01-07 17:52 | PN.CC_ITS ---
Objective Data Objective Data Vital Signs: Vital Signs Last response 3 Temperature 36.4 C L 01/07/25 16:00 Temperature Source Temporal 01/07/25 16:00 Pulse Rate 74 01/07/25 16:00 Pulse Strength Weak (1+) 01/07/25 08:31 Respiratory Rate 16 01/07/25 16:00 Respiratory Effort Normal, Non-Labored 01/07/25 08:33 Respiratory Depth Normal 01/07/25 08:33 Respiratory Pattern Normal 01/07/25 13:12 Blood Pressure 96/54 L 01/07/25 16:00 Blood Pressure Mean 68 01/07/25 16:00 Blood Pressure Source Monitor 01/07/25 11:13 Blood Pressure Position Semi-Fowlers 01/07/25 11:13 Blood Pressure Location Left Arm 01/07/25 11:13 Pulse Ox 93 01/07/25 16:00 Oxygen Delivery Method Room Air 01/07/25 16:08 Oxygen Flow Rate (L/min) 1 01/07/25 02:23 I&O: I&O Last 24 Hours 3 01/06/25 01/07/25 01/07/25 23:59 11:59 23:59 Intake Total 2315 / 2315 258.25 / 305.75 47.5 / 305.75 Output Total 300 / 300 Balance 2315 / 2315 -41.75 / 5.75 47.5 / 5.75 I&O: Total Stay 3 01/06/25 11:57 thru 01/07/25 14:30 Intake Total 2620.75 Output Total 300 Balance 2320.75 Current Meds Ordered / Administered: Current meds ordered / Administered 3 Generic Name Dose Route Start Last Admin Trade Name Freq PRN Reason Stop Dose Admin Acetaminophen 650 mg 01/06/25 18:41 Acetaminophen 325 Mg Tablet PO Q6H PRN PRN Pain 1-10 Or Fever>100.7 Albuterol/Ipratropium 3 ml 01/06/25 23:00 01/07/25 13:11 Ipratropium/Albuterol Sulfate 3 Ml Ampul.Neb INHALATION 3 ml Q6H.RT EDWARD Administration Apixaban 5 mg 01/07/25 10:00 01/07/25 11:14 Apixaban 5 Mg Tablet PO 5 mg BID EDWARD Administration Sodium Chloride 1,000 mls @ 15 mls/hr 01/06/25 12:15 01/06/25 15:36 IV Not Given .Q48H EDWARD Vancomycin IV-PHARMACY TO DOSE 500 mls @ 250 mls/hr 01/06/25 18:41 1 each/ Sodium Chloride IV X1 PRN Rx to Dose Protocol Piperacillin Sod/Tazobactam 50 mls @ 12.5 mls/hr 01/06/25 22:00 01/07/25 14:31 Sod 3.375 gm/ Sodium Chloride IV 12.5 mls/hr Q8 EDWARD Administration Sodium Chloride 250 mls @ 15 mls/hr 01/06/25 18:48 01/07/25 14:30 IV 0 mls/hr .[id number] PRN Infusion Saline Flush Sodium Chloride 250 mls @ 15 mls/hr 01/06/25 18:48 IV .[id number] PRN Additional IVPB Infusion Vancomycin HCl 500 mg/ Sodium 110 mls @ 100 mls/hr 01/07/25 05:30 01/07/25 17:33 Chloride IV 100 mls/hr Q12H EDWARD Administration Melatonin 3 mg 01/06/25 18:41 Melatonin 3 Mg Tablet PO QHS PRN PRN INSOMNIA Methylprednisolone Sodium Succinate 40 mg 01/06/25 22:45 01/07/25 14:33 Methylprednisolone Sod Succ 40 Mg/Ml Vial IV 40 mg Q8 EDWARD Administration Metoprolol Tartrate 25 mg 01/06/25 22:55 01/07/25 11:14 Metoprolol Tartrate 25 Mg Tablet PO 25 mg BID EDWARD Administration Protocol Ondansetron HCl 4 mg 01/06/25 18:41 Ondansetron 4 Mg/2 Ml Vial IV Q8H PRN PRN NAUSEA/VOMITING Sodium Chloride 10 - 40 ml 01/06/25 18:48 01/07/25 17:33 0.9% Saline Lock 10 Ml Syringe IV 10 ml UD PRN Administration SALINE FLUSH Vancomycin Protocol 1 lab 01/08/25 04:00 Vancomycin Trough/Random Due [facility] 01/08/25 06:00 DAILY ON LICENSE OF [facility] Lab / Micro Data 01/07/25 05:18 01/07/25 05:18 Labs: Laboratory Results - last 24 hr 01/06/25 19:48: Troponin T Hi Sens 4Hr 41 H 01/06/25 23:59: Lactic Acid 1.6 01/07/25 05:18: WBC 12.1 H, RBC 3.75 L, Hgb 10.8 L, Hct 33.8 L, MCV 90.1, MCH 28.8, MCHC 32.0, RDW Std Deviation 45.5 H, RDW Coeff of Michael 13.8, Plt Count 242, MPV 9.6, Sodium 136, Potassium 3.8, Chloride 103, Carbon Dioxide 24.4, Anion Gap 9, BUN 21 H, Creatinine 0.65 L, Estim Creat Clear Calc 44.80 L, Est GFR (MDRD) Non-Af 90, BUN/Creatinine Ratio 32.1 H, Glucose 135 H, Calcium 7.8 Micro: Microbiology 01/06/25 15:42 Urine, Clean Catch Legionella Antigen - Final 01/06/25 15:42 Urine, Clean Catch Streptococcus pneumoniae Antigen (M - Final 01/06/25 13:30 Mucosa - Nose SARS-CoV-2, Influenza & RSV (PCR) - Final ABG Data ABG results: ABG 01/06/25 23:36 Specimen Type ART Sample Site R Radial pH 7.45 Bicarbonate Actual 29.6 H Total CO2 31 Base Excess 6 H O2 Saturation 98 O2 % 2.0 ABG pCO2 42.3 ABG pO2 95 Lawson Test Positive O2 Delivery Device Cannula Vent Mode Not entered Imaging Radiology Impression Echocardiogram 01/07/25 09:45 Interpretation Summary The left ventricular ejection fraction is 60 %. Moderate mitral annular calcification. Mild (1+) mitral valve insufficiency. Moderate-Severe (3+) tricuspid valve insufficiency. RVSP estimated between 46-56 mmHg. Moderate to severely calcified aortic valve. Mild aortic valve stenosis. Mean peak gradient 10 mmHg. Aortic valve area 1.5 cm??. Ordering Physician: Sung Sharma Performed By: Jarrell Garcia RCS Assessment and Plan . Assessment and plan: Chart and data reviewed Elderly man admitted w/ generalized fatigue and malaise Treated as inpatient for infectious PNA a few weeks ago - required thora at that time - cloudy yellow fluid Imaging reviewed - he has significant underlying emphysema, also has a moderate sized effusion on the right which appears complicated and has enhancing pleura Very likely now a complicated parapneumonic effusion which is going to require drainage Given age and co-morbidities, tube/catheter placement w/ attempt at fibrinolysis seems reasonable, but I would not be surprised if he ultimately requires VATS I would solicit an opinion from thoracic surgery
[2025-01-08] VITALS (13 sets, daily range): BP systolic 100–118; BP diastolic 60–75; PULSE 75–157; RESP 16–22; TEMP 36.4–36.8; O2SAT 82–97
[2025-01-08 05:02] LABS: Hematocrit 33.9 % (40-54); Hemoglobin 10.8 g/dL (13.0-16.5); Immature Granulocytes Count 0.250 X10^3/uL (0.0-0.0); Mean Corp Hgb Conc 31.9 g/dL (32-36); Mean Corpuscular Volume 91.1 fL (80-94); Mean Platelet Vol. 9.3 fl (6.2-12.0); NRBC Flagged by Analyzer 0 % (0-5); POSITIVE DIFFERENTIAL YES; Platelet Count 260 K/mm3 (150-450); RBC Distribution Width CV 13.8 % (11.6-14.6); RBC Distribution Width SD 46.5 fl (35.1-43.9); Red Blood Count 3.72 M/mm3 (4.6-6.2); White Blood Count 13.7 K/mm3 (4.4-11.0)
[2025-01-08 05:25] LABS: Anion Gap 8 (5-15); BUN 26 mg/dL (4-19); BUN/Creat Ratio 36.6 RATIO (10-20); Calcium,Total 8.0 mg/dL (7.6-11.0); Carbon Dioxide 25.3 mmol/L (21.0-32.0); Chloride 104 mmol/L (98-108); Estimated Creatinine Clearance 44.80 ml/min (50-250); Glucose 209 mg/dL (70-99); Potassium 4.0 mmol/L (3.3-5.1)
[2025-01-08 05:29] LABS: Vancomycin, Trough Level 9.5 ug/mL (5.0-15.0)
--- NOTE | 2025-01-08 05:53 | PCM.RX.CS ---
Consult Antibiotic Management Pharmacy has been consulted to manage selected antibiotic: Vancomycin Type of Intervention Type of Consult: Follow-up Suspected Infection Suspected Infection: Pneumonia Labs Labs: Sodium 137 mmol/L (133-145) 01/08/25 04:42 Potassium 4.0 mmol/L (3.3-5.1) 01/08/25 04:42 Chloride 104 mmol/L (98-108) 01/08/25 04:42 Carbon Dioxide 25.3 mmol/L (21.0-32.0) 01/08/25 04:42 Anion Gap 8 (5-15) 01/08/25 04:42 BUN 26 mg/dL (4-19) H 01/08/25 04:42 Creatinine 0.70 mg/dL (0.70-1.20) 01/08/25 04:42 Est GFR (MDRD) Non-Af 88 (>60) 01/08/25 04:42 BUN/Creatinine Ratio 36.6 RATIO (10-20) H 01/08/25 04:42 Glucose 209 mg/dL (70-99) H 01/08/25 04:42 Vancomycin Trough 9.5 ug/mL (5.0-15.0) 01/08/25 04:42 Microbiology Microbiology: Microbiology 01/06/25 15:42 Urine, Clean Catch Legionella Antigen - Final 01/06/25 15:42 Urine, Clean Catch Streptococcus pneumoniae Antigen (M - Final 01/06/25 13:30 Mucosa - Nose SARS-CoV-2, Influenza & RSV (PCR) - Final Dosing Weight Weight used for dosin.6 kg Estimated Creatinine Clearance Estimated Creatinine Clearance: 45 Goal Trough Goal Trough: 15-20 mcg/mL Pharmacy Plan for Drug Dosing Pharmacy Plan for Drug Dosing: Vancomycin trough level of 9.5, drawn 11.25hrs post-dose, was below the target range of 15-20. Will increase dose to 1000mg q12h, and will draw another trough level prior to fourth dose of the new regimen. Pharmacy Service will continue to monitor and adjust dosing as required. Follow-Up Labs Follow-Up Labs: Trough: Vancomycin Date/Time Labs Ordered Labs to be done on [date and time ordered]: 01/09/25 @8735
[2025-01-08] MEDS: Vancomycin HCl 1,000 MG in 0.9% Normal Saline (250mL Bag) 250 ML 250 MG IV ×2 (06:01→18:08)
[2025-01-08] MEDS: Piperacil/Tazobactam 3.375 GM in 0.9% Normal Saline (50mL MB+) 50 ML IV ×3 (06:01→21:17)
[2025-01-08] MEDS: 0.9% Saline Lock 10 ML Syringe IV ×5 (06:02→21:18)
--- NOTE | 2025-01-08 07:41 | PCM.PN.HOSP ---
Reason for Visit Chief Complaint: Generalized weakness and fatigue Objective Data Objective Data Vital Signs: Vital Signs Temp Pulse Resp BP Pulse Ox O2 Del Method O2 Flow Rate 97.8 F 75 16 100/60 94 Room Air 1 01/08/25 03:00 01/08/25 03:00 01/08/25 03:00 01/08/25 03:00 01/08/25 03:00 01/08/25 03:05 01/07/25 02:23 Oxygen Flow Rate (L/min) 1 Oxygen Delivery Method Room Air Weight: 111 lb 8.862 oz Body Mass Index (BMI) 16.5 Intake & Output: Intake and Output for Last 24 Hours 01/06/25 01/07/25 01/08/25 23:59 23:59 23:59 Intake Total 2315 / 2315 465.75 / 465.75 474.25 / 474.25 Output Total 300 / 550 475 / 475 Balance 2315 / 2315 165.75 / -84.25 -0.75 / -0.75 Lab / Micro Data 01/08/25 04:42 01/08/25 04:42 Labs: Laboratory Results - last 24 hr 01/08/25 04:42: WBC 13.7 H, RBC 3.72 L, Hgb 10.8 L, Hct 33.9 L, MCV 91.1, MCH 29.0, MCHC 31.9 L, RDW Std Deviation 46.5 H, RDW Coeff of Michael 13.8, Plt Count 260, MPV 9.3, Immature Gran % (Auto) 1.800 H, Neut % (Auto) 93.8 H, Lymph % (Auto) 1.7 L, Butts % (Auto) 2.1, Eos % (Auto) 0.1, Baso % (Auto) 0.5, Absolute Neuts (auto) 12.8 H, Absolute Lymphs (auto) 0.23 L, Nucleated RBC % 0, Sodium 137, Potassium 4.0, Chloride 104, Carbon Dioxide 25.3, Anion Gap 8, BUN 26 H, Creatinine 0.70, Estim Creat Clear Calc 44.80 L, Est GFR (MDRD) Non-Af 88, BUN/Creatinine Ratio 36.6 H, Glucose 209 H, Calcium 8.0, Vancomycin Trough 9.5 Micro: Microbiology 01/06/25 15:42 Urine, Clean Catch Legionella Antigen - Final 01/06/25 15:42 Urine, Clean Catch Streptococcus pneumoniae Antigen (M - Final 01/06/25 13:30 Mucosa - Nose SARS-CoV-2, Influenza & RSV (PCR) - Final Radiography Diagnostic Testing: Radiology Impression Echocardiogram 01/07/25 09:45 Interpretation Summary The left ventricular ejection fraction is 60 %. Moderate mitral annular calcification. Mild (1+) mitral valve insufficiency. Moderate-Severe (3+) tricuspid valve insufficiency. RVSP estimated between 46-56 mmHg. Moderate to severely calcified aortic valve. Mild aortic valve stenosis. Mean peak gradient 10 mmHg. Aortic valve area 1.5 cm??. Ordering Physician: Sung Sharma Performed By: Jarrell Garcia RCS Physical Exam Narrative Seen and examined. No acute issues but chronic cough. Able to bring some phlegm. Patient has 30 pack years of his smoking and COPD. Shortness of breath on exertion. Has a loculated right lower effusion and dietary internship recommended tube thoracostomy with fibrinolytics trial of tPA and dornase protocol for 3 days Physical exam General: Alert, Oriented x3, Cooperative HEENT: Atraumatic, PERRLA, EOMI, Normocephalic. Oral: No Gingival or Mucosal Lesions/ Ulcerations Neck: Supple, No JVD, Negative Carotid Bruits Chest wall/Lungs: Air entry diminished in bilateral lung bases right more than left. Mild coarse crepitations mainly on right lung base Cardiovascular: Sinus rate, Normal S1,S2, soft systolic murmur Abdomen: Bowel Sounds Present, Soft, Non Tender, Non-Distended : No dysuria. No renal angle tenderness. No suprapubic tenderness. Extremities: Mild pedal 2+ edema, Capillary Refill Less than 3 Seconds Skin: Small bruise over right knee Musculoskeletal: No Tenderness to Palpation of Joints or Extremities Neurological: Cranial nerves II-XII grossly intact, DTR 2+/4. No acute focal neurological deficit. Psych/Mental Status: Flat affect, Appropriate. Assessment & Plan Assessment/Plan (1) Atrial fibrillation, new onset: PLAN: Plan Patient is an 89-year-old male who presented to [facility] ED on 01/06/2025 with generalized weakness, not able to do ADLs and fatigue for last couple days. Usually uses cane but has been using walker last week but even he was not able to use on day of admission 1. New onset A-fib with RVR ? Admit under inpatient status to PCU. EKG showed new onset A-fib with RVR with heart rate in the 130s, no ischemic changes noted. Troponin trend 36 > 33 > 41, mildly elevated suspected secondary to A-fib with RVR and mild degree of dehydration. BNP 2677. CTA chest with findings as below, no significant pulmonary edema noted and patient stable on home 2 L nasal cannula. Given 3 doses of IV Cardizem in the ED with significant rate improvement to the 80s. On Lopressor 25 mg twice daily. Echocardiogram ordered. Discussed with patient and family and they are agreeable to initiating anticoagulation. Given dose of therapeutic Lovenox in the ED and started Eliquis tomorrow morning. 01/07: Twelve-lead EKG reviewed. First EKG shows SVT at 176 beats minute. Repeat EKG A-fib RVR 108 bpm. Patient converted overnight in sinus rhythm, heart rate is controlled, 82/min. charge master specialist shows sinus rhythm. Continue metoprolol and Eliquis. [id number] score is is 4, 2 for age, 1 for CHF and 1 for PAD/ANGEL status post stent. CHF probably might be new as NT proBNP high 2677. 2D echo is ordered. 01/08: Heart rate is controlled. Echo on 01/07 shows mild AV stenosis, mean gradient 10 mm, URMILA area about 1.5 cm?, 3+ MR, RVSP 46 to 56 mmHg, mild MR with moderate to severely calcified aortic valve. EF 60%. Heart rate in 80s to 90s per minute, metoprolol dose increased to 37.5 mg twice daily. 2. Persistent right sided pneumonia with pleural effusion in setting of COPD with chronic hypoxic respiratory failure ? Shellfish Checker consulted. CTA chest showed stable right pleural effusion with acute angles suggesting loculation, as well as adjacent right lung densities likely representing mixed infectious versus inflammatory processes. Was hospitalized here from 12/07-12/11 for pneumonia, had thoracentesis done with 390 cc of pleural fluid removed. Fluid studies showed an exudative effusion and cytology showed acute inflammatory cells but no malignant cells noted. Patient was treated with IV antibiotics and discharged on p.o. antibiotics. He did require 2 L nasal cannula on discharge and is stable on 2 L nasal cannula at this time. Started with IV vancomycin and Zosyn for now. No systemic signs of infection noted. Appreciate further quality engineer medical device recommendations. 01/06: Discussed with the family regarding the right lower loculated effusion with previous pleural fluid analysis shows exudative effusion. Patient was evaluated by dietary internship who recommended tube thoracostomy with fibrinolytics trial of tPA and dornase protocol for 3 days. Patient's daughter and son-in-law was given option for transfer for fumigate treatment with tube thoracostomy which will need thoracic surgery evaluation. They have not decided either way and therefore continue present treatment. Here, we can only do thoracocentesis but with loculated effusion it would not be complete and will recur as happened this time. On talking to the patient himself he said he is 89-year-old and does not want aggressive treatment and wants to be left alone. 01/07: When asked the patient about transfer for loculated effusion treatment, he said he does not want to go want to stay here but will discuss with family. In meantime, ultrasound-guided thoracocentesis ordered for tomorrow with sarah Luis Overall, patient is high surgical risk because of poor functional status, multiple valvular heart disease, low nutritional status/failure to thrive with sacral decubitus ulcer, advanced COPD and advanced age 3. Adult failure to thrive ? PT/OT/case management consulted. Patient had borderline therapy scores during recent hospitalization in November but refused SNF placement and was discharged home with home health care. Patient has been essentially unable to get out of bed over the past few days and has not been completing his ADLs at home. Patient and family may be more amenable to SNF placement on this discharge if needed. Chronic medical conditions: ? Chronic sacral wounds: Noted to have stage I-II sacral ulcers in the ED and very stages of healing. No open wounds noted. No need for wound care consult at this time. ? History of prostate cancer s/p TURP and chronic ureteral stent placement: Follows with Dr. Hollingsworth. Most recent right sided stent change with retrograde pyelogram was done in August with no new findings noted. Continue outpatient follow-up. ? History of right hip fracture s/p ORIF repair DVT prophylaxis: Not indicated, on Eliquis CODE STATUS: DNR-CCA, DNI Clinical Impression(s) from Imaging Studies Chest X-Ray 01/06/25 13:30 IMPRESSION: Likely areas of consolidation in the right middle and lower lung field, predominating in the lower lobe, with underlying pleural effusion again identified. Loculated areas of posterior effusion are not excluded. PA and lateral views the chest are recommended, with consideration of CT if clinically indicated. Chest CTA 01/06/25 14:55 IMPRESSION: No evidence of pulmonary embolism. Stable right pleural effusion with acute angles suggesting loculation. Adjacent right lung densities likely representing mixed infectious or inflammatory process and atelectasis. Unchanged left lower lobe density that may represent scarring, though neoplasm cannot be excluded; consider PET-CT if clinically indicated. [id number] centrilobular emphysema. Stable compression deformities of the thoracic spine with diffuse osseous demineralization. Moderate atherosclerosis with coronary artery calcifications. Echocardiogram 01/07/25 09:45 Interpretation Summary The left ventricular ejection fraction is 60 %. Moderate mitral annular calcification. Mild (1+) mitral valve insufficiency. Moderate-Severe (3+) tricuspid valve insufficiency. RVSP estimated between 46-56 mmHg. Moderate to severely calcified aortic valve. Mild aortic valve stenosis. Mean peak gradient 10 mmHg. Aortic valve area 1.5 cm??. Charges/Coding Visit Charges Inpatient E&M: 14541 Subs Hosp L2
[2025-01-08] MEDS: APIXABAN 5 MG TABLET PO (09:09)
--- NOTE | 2025-01-08 18:02 | PCM.PN.TICU ---
Objective Data Objective Data Vital Signs: Vital Signs Last response Temperature 36.6 C 01/08/25 14:59 Temperature Source Temporal 01/08/25 14:59 Pulse Rate 92 01/08/25 14:59 Pulse Strength Weak (1+) 01/08/25 09:00 Respiratory Rate 17 01/08/25 14:59 Respiratory Effort Normal, Non-Labored 01/08/25 03:05 Respiratory Depth Normal 01/08/25 03:05 Respiratory Pattern Normal 01/08/25 13:07 Blood Pressure 115/62 01/08/25 14:59 Blood Pressure Mean 79 01/08/25 14:59 Blood Pressure Source Monitor 01/07/25 11:13 Blood Pressure Position Semi-Fowlers 01/07/25 11:13 Blood Pressure Location Left Arm 01/07/25 11:13 Pulse Ox 92 01/08/25 14:59 Oxygen Delivery Method Nasal Cannula 01/08/25 15:52 Oxygen Flow Rate (L/min) 2 01/08/25 15:52 I&O: I&O Last 24 Hours 01/07/25 01/08/25 01/08/25 23:59 11:59 23:59 Intake Total 207.5 / 465.75 524.25 / 524.25 Output Total 475 / 475 Balance 207.5 / -84.25 49.25 / 49.25 I&O: Total Stay 01/06/25 11:57 thru 01/08/25 10:20 Intake Total 3305.00 Output Total 775 Balance 2530.00 Current Meds Ordered / Administered: Current meds ordered / Administered Generic Name Dose Route Start Last Admin Trade Name Katy PRN Reason Stop Dose Admin Acetaminophen 650 mg 01/06/25 18:41 Acetaminophen 325 Mg Tablet PO Q6H PRN PRN Pain 1-10 Or Fever>100.7 Albuterol/Ipratropium 3 ml 01/06/25 23:00 01/08/25 12:45 Ipratropium/Albuterol Sulfate 3 Ml Ampul.Neb INHALATION 3 ml Q6H.RT EDWARD Administration Apixaban 5 mg 01/07/25 10:00 01/08/25 09:09 Apixaban 5 Mg Tablet PO 5 mg On Hold: 01/08/25 11:45 BID EDWARD Administration Sodium Chloride 1,000 mls @ 15 mls/hr 01/06/25 12:15 01/08/25 12:09 IV Not Given .Q48H EDWARD Vancomycin IV-PHARMACY TO DOSE 500 mls @ 250 mls/hr 01/06/25 18:41 1 each/ Sodium Chloride IV X1 PRN Rx to Dose Protocol Piperacillin Sod/Tazobactam 50 mls @ 12.5 mls/hr 01/06/25 22:00 01/08/25 14:52 Sod 3.375 gm/ Sodium Chloride IV 12.5 mls/hr Q8 EDWARD Administration Sodium Chloride 250 mls @ 15 mls/hr 01/06/25 18:48 01/08/25 05:14 IV Infused .[id number] PRN Infusion Saline Flush Sodium Chloride 250 mls @ 15 mls/hr 01/06/25 18:48 IV .[id number] PRN Additional IVPB Infusion Vancomycin HCl 1,000 mg/ 270 mls @ 250 mls/hr 01/08/25 06:00 01/08/25 07:20 Sodium Chloride IV Infused Q12H EDWARD Infusion Melatonin 3 mg 01/06/25 18:41 Melatonin 3 Mg Tablet PO QHS PRN PRN INSOMNIA Methylprednisolone Sodium Succinate 40 mg 01/06/25 22:45 01/08/25 14:51 Methylprednisolone Sod Succ 40 Mg/Ml Vial IV 40 mg Q8 EDWARD Administration Metoprolol Tartrate 37.5 mg 01/08/25 22:00 Metoprolol Tartrate 25 Mg Tablet PO BID [facility] Protocol Ondansetron HCl 4 mg 01/06/25 18:41 Ondansetron 4 Mg/2 Ml Vial IV Q8H PRN PRN NAUSEA/VOMITING Sodium Chloride 10 - 40 ml 01/06/25 18:48 01/08/25 14:50 0.9% Saline Lock 10 Ml Syringe IV 10 ml UD PRN Administration SALINE FLUSH Vancomycin Protocol 1 lab 01/09/25 16:30 Vancomycin Trough/Random Due [facility] 01/09/25 18:30 DAILY [facility] Lab / Micro Data 01/08/25 04:42 01/08/25 04:42 Labs: Laboratory Results - last 24 hr 01/08/25 04:42: WBC 13.7 H, RBC 3.72 L, Hgb 10.8 L, Hct 33.9 L, MCV 91.1, MCH 29.0, MCHC 31.9 L, RDW Std Deviation 46.5 H, RDW Coeff of Michael 13.8, Plt Count 260, MPV 9.3, Immature Gran % (Auto) 1.800 H, Neut % (Auto) 93.8 H, Lymph % (Auto) 1.7 L, Gates % (Auto) 2.1, Eos % (Auto) 0.1, Baso % (Auto) 0.5, Absolute Neuts (auto) 12.8 H, Absolute Lymphs (auto) 0.23 L, Nucleated RBC % 0, Sodium 137, Potassium 4.0, Chloride 104, Carbon Dioxide 25.3, Anion Gap 8, BUN 26 H, Creatinine 0.70, Estim Creat Clear Calc 44.80 L, Est GFR (MDRD) Non-Af 88, BUN/Creatinine Ratio 36.6 H, Glucose 209 H, Calcium 8.0, Vancomycin Trough 9.5 Micro: Microbiology 01/06/25 12:45 Blood Culture (Wb) - Right Wrist Blood Culture - Preliminary No growth in 48 hours. 01/06/25 14:24 Blood Culture (Wb) - Right Forearm Blood Culture - Preliminary No growth in 48 hours. 01/06/25 15:42 Urine, Clean Catch Urine Culture - Final Mixed Gram Positive Organisms Assessment and Plan . Assessment and plan: Elderly man admitted w/ generalized fatigue and malaise Treated as inpatient for infectious PNA a few weeks ago - required thora at that time - cloudy yellow fluid Imaging reviewed - he has significant underlying emphysema, also has a moderate sized effusion on the right which appears complicated and has enhancing pleura Very likely now a complicated parapneumonic effusion which is going to require drainage Given age and co-morbidities, tube/catheter placement w/ attempt at fibrinolysis seems reasonable, but I would not be surprised if he ultimately requires VATS I would solicit an opinion from thoracic surgery 01/08/25 Patient seen and examined. Chart and data reviewed. NAD, but he appears debilitated and chronically ill Breathing O2 2 LPM He is afebrile EXAM GEN NAD VS as above COR irreg CHEST decreased ABD soft EXT minimal edema CRYSTAL NF ASSESSMENT/RECOMMENDATION Complicated moderate sized right pleural effusion - very likely parapneumonic and organized Needs drainage - tube/catheter vs. VATS The entirety of this encounter was done via Telemedicine
[2025-01-08] MEDS: Digoxin 250 MCG/ML Ampul IV (21:17)
[2025-01-09] VITALS (40 sets, daily range): BP systolic 48–127; BP diastolic 37–82; PULSE 2–159; RESP 12–71; TEMP 35.7–36.9; O2SAT 68–100
[2025-01-09] MEDS: Diltiazem 125 MG in Dextrose 5%-Water (100mL Bag) 100 ML IV (00:12)
[2025-01-09] MEDS: Vancomycin HCl 1,000 MG in 0.9% Normal Saline (250mL Bag) 250 ML 250 MG IV (05:14)
[2025-01-09 05:50] LABS: Hematocrit 30.4 % (40-54); Hemoglobin 9.4 g/dL (13.0-16.5); Immature Granulocytes Count 0.230 X10^3/uL (0.0-0.0); Mean Corp Hgb Conc 30.9 g/dL (32-36); Mean Corpuscular Volume 93.5 fL (80-94); Mean Platelet Vol. 9.5 fl (6.2-12.0); NRBC Flagged by Analyzer 0 % (0-5); POSITIVE DIFFERENTIAL YES; Platelet Count 258 K/mm3 (150-450); RBC Distribution Width CV 13.9 % (11.6-14.6); RBC Distribution Width SD 47.0 fl (35.1-43.9); Red Blood Count 3.25 M/mm3 (4.6-6.2); White Blood Count 11.9 K/mm3 (4.4-11.0)
[2025-01-09 06:15] LABS: LDH 132 U/L (87-241)
[2025-01-09 06:20] LABS: Anion Gap 6 (5-15); BUN 31 mg/dL (4-19); BUN/Creat Ratio 48.7 RATIO (10-20); Calcium,Total 7.9 mg/dL (7.6-11.0); Carbon Dioxide 26.7 mmol/L (21.0-32.0); Chloride 106 mmol/L (98-108); Estimated Creatinine Clearance 44.80 ml/min (50-250); Glucose 166 mg/dL (70-99); Potassium 4.2 mmol/L (3.3-5.1)
[2025-01-09] MEDS: Piperacil/Tazobactam 3.375 GM in 0.9% Normal Saline (50mL MB+) 50 ML IV ×3 (06:34→21:04)
[2025-01-09] MEDS: 0.9% Saline Lock 10 ML Syringe IV ×3 (06:37→23:43)
--- NOTE | 2025-01-09 07:31 | CPS ---
Pt has been refusing i.s. & pep or has been unable to perform them. discontinued it.
--- NOTE | 2025-01-09 07:40 | EKG12_ITS ---
Test Reason : CONVERT TO NSR Blood Pressure : */* mmHG Vent. Rate : 80 BPM Atrial Rate : 80 BPM P-R Int : 108 ms QRS Dur : 78 ms QT Int : 340 ms P-R-T Axes : -1 9 8 degrees QTcB Int : 392 ms Sinus rhythm with short TX with Premature atrial complexes Otherwise normal ECG No previous ECGs available Confirmed by SHA CRABTREE, MAVIS ([id number]), news editor AMBROCIO ENRIQUEZ ([id number]) on 01/10/2025 7:57:08 AM Referred By: STORM Confirmed By: MAVIS DALTON MD
--- NOTE | 2025-01-09 09:00 | RAD_ITS ---
PROCEDURE: CHEST 1 VIEW (PORTABLE) 01/09/2025 REASON FOR EXAM: PNEUMONIA, HYPOXIA TECHNIQUE: Frontal view of the chest. COMPARISON: Prior study dated January 06, 2025. FINDINGS: Hardware: EKG electrodes are seen. Heart: Heart is nonenlarged. Lungs: Persistent opacification of the right hemithorax although there has been some improvement. Persistent blunting of both costophrenic angles. Increased markings at the left lung base which have worsened as compared to prior study. Bones: Degenerative changes are identified within the thoracic spine. RAD/Chest 1 View (Portable) IMPRESSION: Slight improvement in the right lung with the increased atelectasis and/or infi ltrate at the left lung base. Small bilateral pleural effusions. Reading Location: [place] [id number]
[2025-01-09 13:59] LABS: Hematocrit 28.4 % (40-54); Hemoglobin 8.4 g/dL (13.0-16.5)
--- NOTE | 2025-01-09 15:19 | CASEMGMT ---
Addendum entered by Shelby Gill 01/09/25 15:24: The daughter called SW back and confirmed the DC plan at this time is for the patient to DC to TCU. Original Note: Social Work SW called the daughter and left a message. Per physician patient is getting a scope and thoracentesis, but he needs to get Eliquis out of his system first. Patient was previously accepted TCU. SAGAR Burkett
[2025-01-09] MEDS: 0.9% Normal Saline (1000mL) 500 ML 250 ML IV (15:30)
--- NOTE | 2025-01-09 17:46 | CON.PCM.GI_ITS ---
HPI Consult Data Date of Consult: 01/09/25 HPI Narrative Reason for Consultation: GI bleed HPI Narrative: ELIESER VILLEGAS, is a 89-year-old male who lives with his significant other. He presents to the Emergency Department with worsening fatigue and weakness, and has noticed worsening melanotic (dark, tarry) stools. These symptoms follow a recent hospitalization for shortness of breath, where he was diagnosed with right-sided pneumonia with a right-sided pleural effusion, complicated by atrial fibrillation with rapid ventricular response. He denies hematochezia or hematemesis. He was seen by stitch bonding machine drawer in services over the weekend and they were recommended possible thoracentesis but he has not been stable enough to consider that procedure. [facility] Medical History Wears hearing aid Pressure ulcer Ambulates with cane Easy bruising History of broken collarbone Blackout Shortness of breath on exertion Hx of fracture of hip Former smoker Vitamin D insufficiency Abnormal results of thyroid function studies Loss of hearing Wears glasses Wears partial dentures Cancer Alcohol use Arthritis Back pain History of edema History of SIADH Chronic bronchitis Hydronephrosis Former smoker Closed intertrochanteric fracture of left femur Kidney failure Prostate cancer Hyponatremia Prostatic cancer Home Medications ?Medication ?Instructions ?Recorded ?Last Taken ?Type acetaminophen 325 mg tablet 650 mg (2 x 325 mg) PO Q6H PRN PRN 12/11/24 Unknown Rx Pain 1-10 Or Fever>100.7 #30 tabs albuterol sulfate 90 mcg/actuation 2 inh inhalation Q6 H PRN shortness 12/11/24 Unknown Rx breath activated powder inhaler of breath #1 ea Allergy/AdvReac Type Severity Reaction Status Date / Time No Known Allergies Allergy Verified 01/06/25 11:59 Family History Mother Heart disease Father Heart disease Surgical History History of cystoscopy Hx of cystoscopy History of open reduction and internal fixation (ORIF) procedure History of open reduction and internal fixation (ORIF) procedure History of transurethral resection of prostate Status post appendectomy History of renal stent H/O hernia repair Social History household members: spouse and other details: 2 st0ry house. He sleeps downstairs in a recliner. 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 Tobacco: How many years used: 67 how long ago did patient quit smoking: He quit in 2019 alcohol intake: current alcohol intake frequency: holidays/special occasions only substance use type: does not use ROS Constitutional Constitutional: Reports fatigue, malaise and weakness; Denies chills or fever(s) Eyes Eyes: Denies change in vision Cardiovascular Cardiovascular: Denies chest pain, dyspnea on exertion, edema, lightheadedness or palpitations Respiratory/Chest Respiratory/Chest: Denies cough, productive cough, shortness of breath at rest or wheezing Gastrointestinal Gastrointestinal: Denies abdominal pain Musculoskeletal Musculoskeletal: Denies arthralgias or myalgias Neurologic Neurologic: Denies dizziness, focal weakness, headache(s), numbness or tingling Physical Exam Narrative No acute issues but chronic cough. Physical exam General: Alert, Oriented x3, Cooperative HEENT: Atraumatic, PERRLA, EOMI, Normocephalic. Oral: No Gingival or Mucosal Lesions/ Ulcerations Neck: Supple, No JVD, Negative Carotid Bruits Chest wall/Lungs: Air entry diminished in bilateral lung bases right more than left. Mild coarse crepitations mainly on right lung base Cardiovascular: Sinus rate, Normal S1,S2, soft systolic murmur Abdomen: Bowel Sounds Present, Soft, Non Tender, Non-Distended : No dysuria. No renal angle tenderness. No suprapubic tenderness. Extremities: Mild pedal 2+ edema, Capillary Refill Less than 3 Seconds Skin: Small bruise over right knee Musculoskeletal: No Tenderness to Palpation of Joints or Extremities Neurological: Cranial nerves II-XII grossly intact, DTR 2+/4. No acute focal neurological deficit. Psych/Mental Status: Flat affect, Appropriate. Lab / Micro Data 01/09/25 13:43 01/09/25 05:21 Labs: Laboratory Results - last 24 hr 01/09/25 05:21: WBC 11.9 H, RBC 3.25 L, Hgb 9.4 L, Hct 30.4 L, MCV 93.5, MCH 28.9, MCHC 30.9 L, RDW Std Deviation 47.0 H, RDW Coeff of Michael 13.9, Plt Count 258, MPV 9.5, Immature Gran % (Auto) 1.900 H, Neut % (Auto) 91.0 H, Lymph % (Auto) 1.7 L, [place] % (Auto) 3.9, Eos % (Auto) 0.8, Baso % (Auto) 0.7, Absolute Neuts (auto) 10.8 H, Absolute Lymphs (auto) 0.20 L, Nucleated RBC % 0, Sodium 139, Potassium 4.2, Chloride 106, Carbon Dioxide 26.7, Anion Gap 6, BUN 31 H, C reatinine 0.65 L, Estim Creat Clear Calc 44.80 L, Est GFR (MDRD) Non-Af 90, B UN/Creatinine Ratio 48.7 H, Glucose 166 H, Calcium 7.9, Lactate Dehydrogenase 132, Total Protein 4.9 L 01/09/25 13:43: Hgb 8.4 L, Hct 28.4 L 01/09/25 16:04: Blood Type O POSITIVE, Antibody Screen NEGATIVE, Crossmatch See Detail Micro: Microbiology 01/09/25 07:35 Sputum, Expectorated/Coughed Gram Stain - Final 01/09/25 10:30 Stool Stool Occult Blood (VIVIAN) - Final Occult Blood Positive 01/06/25 12:45 Blood Culture (Wb) - Right Wrist Blood Culture - Preliminary No growth in 48 hours. 01/06/25 14:24 Blood Culture (Wb) - Right Forearm Blood Culture - Preliminary No growth in 48 hours. Imaging Radiology Impression Chest X-Ray 01/09/25 09:00 IMPRESSION: Slight improvement in the right lung with the increased atelectasis and/or infiltrate at the left lung base. Small bilateral pleural effusions. Reading Location: [facility] Assessment & Plan Assessment/Plan (1) GI bleed: PLAN: Assessment * Gastrointestinal (GI) Bleeding:?The primary concern is upper GI bleeding, as suggested by the melanotic (tarry) stools. The Eliquis (apixaban) the patient is taking for atrial fibrillation significantly increases the risk of bleeding and is likely a contributing factor. A definitive cause (e.g., ulcer, esophagitis) has not yet been identified. Patient stopped his Eliquis yesterday. * Acute on Chronic Congestive Heart Failure:?This diagnosis is based on the new onset of acute decompensation. It is likely precipitated or exacerbated by the recent pneumonia and the subsequent atrial fibrillation with RVR, which increases cardiac workload. Volume overload is suspected. * Anemia (likely secondary to GI bleed):?Given the melanotic stools, anemia is highly anticipated, leading to or worsening the patient's fatigue and weakness. The Eliquis increases the severity of the bleed and the risk of significant anemia. * Hypotension:?This is a morel finding that can be caused by the GI bleeding, the new congestive heart failure, or a combination of both. * Atrial Fibrillation with RVR:?The patient was recently diagnosed during his pneumonia admission. It is a critical component of his cardiac history that requires careful management, particularly given his current bleeding risk. Plan Gastrointestinal Bleeding: * Diagnostics:?Order stat CBC, BMP, PT/INR, and type and screen. Anticipate esophagogastroduodenoscopy (EGD) once stabilized. * Therapy:?Hold Eliquis immediately. Discuss with hematology or cardiology regarding reversal of Eliquis and management of his anticoagulation status, balancing the risk of bleeding versus the risk of stroke from his atrial fibrillation. * Agree with PPI therapy and possible Carafate therapy. Charges/Coding Visit Charges Inpatient E&M: 88290 Init Hosp L3
--- NOTE | 2025-01-09 18:13 | NURSING ---
This RN entered room, CONVEYOR INSTALLER's in room changing patient. Patient having copious amounts of bloody stool, very pale, checked VS, o2 68% 2L, BP 87/61. Attempted high flow canula, advanced to NRB, patients o2 still in 70s. Called in cupola charger, alerted MD to come see. Orders for fluids given. Patient flipped back into afib rvr with hr in the 150s, Dr Valdes back in to see patient and aware. FMS inserted, fluids started, respiratory called to set up airvo; once interventions complete, was able to change bed and get patient cleaned up. Dr Valdes aware patient not responding as much, family updated by dr Valdes. This RN also provided update. Family visiting with patient in room when this RN left, aware we were trying to make patient as comfortable as possible per family wishes.
--- NOTE | 2025-01-09 19:27 | PCM.PN.HOSP ---
Reason for Visit Chief Complaint: Generalized weakness and fatigue Subjective Subjective Patient was seen and examined today, I talked at length with the patient's family including his daughter, son-in-law, and about how aggressive to get with the patient's medical care at this time. They would like the patient to receive blood if necessary, undergo diagnostic testing, they would not prefer the patient to go to the ICU, they would not prefer any central lines or pressor therapy if necessary. Today patient's status deteriorated after he had a large episode of liquid stool which was melanotic. Patient's oxygen saturation dropped early this afternoon and he had to be put on Airvo to maintain his pulse ox. Patient's repeat hemoglobin today was 8.4, his hemoglobin earlier this morning was 9.4. Patient was unstable and unable to undergo an EGD today, I placed the patient on IV Protonix and ordered 2 units of packed red blood cells, a fluid bolus was also administered. Patient will remain on antibiotics for now, I stopped his vancomycin-I did not feel this was of any benefit for the patient. Patient currently is a DNR CC arrest, labs will be rechecked tomorrow morning. Patient was also given 2 units of plasma. Overall, the patient is frail and prognosis is guarded at this time. He will remain n.p.o. in case he is stable to undergo an EGD tomorrow. Objective Data Objective Data Vital Signs: Vital Signs Temp Pulse Resp BP Pulse Ox O2 Del Method O2 Flow Rate 96.6 F L 85 23 H 79/54 L 100 Airvo 35 01/09/25 18:15 01/09/25 18:15 01/09/25 18:15 01/09/25 18:15 01/09/25 18:15 01/09/25 18:38 01/09/25 17:55 FiO2 82 01/09/25 17:55 Oxygen Flow Rate (L/min) 35 Oxygen Delivery Method Airvo Weight: 50.6 kg Body Mass Index (BMI) 16.5 Intake & Output: Intake and Output for Last 24 Hours 01/07/25 01/08/25 01/09/25 23:59 23:59 23:59 Intake Total 465.75 / 465.75 1444.25 / 1444.25 961.08 / 961.08 Output Total 300 / 550 775 / 1025 600 / 600 Balance 165.75 / -84.25 669.25 / 419.25 361.08 / 361.08 Lab / Micro Data 01/09/25 13:43 01/09/25 05:21 Labs: Laboratory Results - last 24 hr 01/09/25 05:21: WBC 11.9 H, RBC 3.25 L, Hgb 9.4 L, Hct 30.4 L, MCV 93.5, MCH 28.9, MCHC 30.9 L, RDW Std Deviation 47.0 H, RDW Coeff of Michael 13.9, Plt Count 258, MPV 9.5, Immature Gran % (Auto) 1.900 H, Neut % (Auto) 91.0 H, Lymph % (Auto) 1.7 L, [place] % (Auto) 3.9, Eos % (Auto) 0.8, Baso % (Auto) 0.7, Absolute Neuts (auto) 10.8 H, Absolute Lymphs (auto) 0.20 L, Nucleated RBC % 0, Sodium 139, Potassium 4.2, Chloride 106, Carbon Dioxide 26.7, Anion Gap 6, BUN 31 H, Creatinine 0.65 L, Estim Creat Clear Calc 44.80 L, Est GFR (MDRD) Non-Af 90, BUN/Creatinine Ratio 48.7 H, Glucose 166 H, Calcium 7.9, Lactate Dehydrogenase 132, Total Protein 4.9 L 01/09/25 13:43: Hgb 8.4 L, Hct 28.4 L 01/09/25 16:04: Blood Type O POSITIVE, Antibody Screen NEGATIVE, Crossmatch See Detail Micro: Microbiology 01/09/25 07:35 Sputum, Expectorated/Coughed Gram Stain - Final 01/09/25 10:30 Stool Stool Occult Blood (VIVIAN) - Final Occult Blood Positive 01/06/25 12:45 Blood Culture (Wb) - Right Wrist Blood Culture - Preliminary No growth in 48 hours. 01/06/25 14:24 Blood Culture (Wb) - Right Forearm Blood Culture - Preliminary No growth in 48 hours. 01/06/25 15:42 Urine, Clean Catch Urine Culture - Final Mixed Gram Positive Organisms 01/06/25 15:42 Urine, Clean Catch Legionella Antigen - Final 01/06/25 15:42 Urine, Clean Catch Streptococcus pneumoniae Antigen (M - Final 01/06/25 13:30 Mucosa - Nose SARS-CoV-2, Influenza & RSV (PCR) - Final Radiography Diagnostic Testing: Radiology Impression Chest X-Ray 01/09/25 09:00 IMPRESSION: Slight improvement in the right lung with the increased atelectasis and/or infiltrate at the left lung base. Small bilateral pleural effusions. Reading Location: [facility] Physical Exam Const alert Constitutional Narrative: Patient is frail, he is minimally responsive to verbal and painful stimuli, he is lethargic General Appearance: well developed Orientation / Consciousness: lethargic HEENT normocephalic, head/scalp atraumatic and moist oral mucous membranes Eyes PERRL and conjunctivae normal Neck no JVD and thyroid normal General: trachea midline Resp Resp Narrative: Patient has scattered expiratory rhonchi, breath sounds are diminished bilaterally and respirations are rapid and shallow Auscultation: rhonchi; Negative for rales or wheezes Cardio no murmurs Cardio Narrative: Heart rate and rhythm is irregular GI normal to inspection, nondistended, normoactive bowel sounds, soft to palpation, non-tender and non-distended GI Narrative: Patient has a large amount of melanotic stool coming from the rectal area Extremity no clubbing, cyanosis or edema Neuro CN's II-XII intact bilaterally Neuro Narrative: Patient is lethargic, he responds to some verbal commands but does not carry on a conversation, patient is lethargic Psych Psych Narrative: Patient is lethargic Assessment & Plan Assessment/Plan (1) GI bleed: PLAN: Plan 1. Acute gastrointestinal bleed-felt to be secondary to upper GI source, patient is unstable at this time to undergo any diagnostic testing such as endoscopy. Patient will be given 2 units of fresh frozen plasma, 2 units of blood, and will continue on IV Protonix. He will be reevaluated tomorrow for possible endoscopy. Again, patient's overall medical condition is very poor, family is aware of this and they do not want aggressive care such as pressor administration, intubation, or transfer to the ICU. Patient's overall prognosis is guarded. #2 right lower lobe pneumonia-patient will continue on Zosyn #3 acute hypoxic respiratory failure secondary to pneumonia, COPD, and generalized deconditioning/weakness-patient is on Airvo at this time, again prognosis is guarded #4 acute anemia secondary to acute upper GI bleed-again patient will be given 2 units of packed red blood cells #5 paroxysmal atrial fibrillation with RVR-at the time of my examination, patient was in atrial fibrillation with a rapid heart rate, if this continues I will administer digoxin #6 adult failure to thrive-complicates care, management, recovery, and prognosis #7 severe chronic protein and caloric malnutrition-as evidenced by p.o. meeting less than 50% of estimated nutritional needs x 4 to 5 days, BMI of 16.5, severe muscle and fat depletion in the clavicle, orbital, temporal region, and arms-patient is currently n.p.o. due to his respiratory failure and upper GI bleed, nutritional services has recommended liberal regular diet with Seth Total clinical time spent by myself addressing the patient's medical issues, reviewing all of his data, and collaborating with the patient's care team: 50 minutes Charges/Coding Visit Charges Inpatient E&M: 63640 Subs Hosp L3
[2025-01-09] MEDS: Pantoprazole Sodium 40 MG in 0.9% Normal Saline (100mL MB+) 100 ML 300 MG IV (20:03)
--- NOTE | 2025-01-09 21:26 | PCM.HOSP.N ---
Hospitalist Note Notified by RT of pt's respiratory status having changed. RT presents hypoxic picture and consideration for placing him on BiPAP, but he is nonresponsive and unable to protect his airway. Pt assessed, found to have agonal breaths alternating with shallow tachypnea, rales to upper lobes, posterior oral congestion, with intercostal retractions. BP has been trending down, most recent 58/40, HR 86, with oxygen sat of 78-91%. TC placed to daughter, Aileen, and she was notified of imminent , she is on her way back in to the hospital. Pt's is at the bedside, but she is unaware of her spouse's situation with suspected undiagnosed dementia for her. Dtr reinforces desire to NOT have pt transported to ICU at this time. 2200-Aileen and her spouse arrived, given updates. Explained that in his unresponsive state, he is not feeling any pain. Explained his breathing pattern as part of the dying process. Reviewed CODE status changes, described DNRCC at length. Aileen explains that she is unsure if her sibling(s) will want to come in tonight. I instructed her to notify nrsg staff of their decision and we can withdraw care at that time, and explained that he is declining quickly. We can provide comfort medications as needed then. Explained the Airvo oxygenation may be prolonging his life as well. This unit of PRBCs will be completed, no further transfusion of any blood products. 2315-Family at bedside expresses desire to withdraw supportive care at this time, including oxygenation via Airvo. CODE status changed to DNRCC, comfort medications ordered. BP 55/41. Emotional support provided to family.
--- NOTE | 2025-01-10 01:30 | NURSING ---
Pt had asystole noted on telemetry, Pt was assessed by [facility] RN's. Pt was determined not to be breathing with absence of pulse. Family is at bedside. Code status is DNRCC. Emotional support given.
--- NOTE | 2025-01-10 03:13 | CPS ---
01/09/25 @1781 patient taken off AIRVO at this time per request of the family
--- NOTE | 2025-01-10 03:30 | NURSING ---
Pt was transferred to [facility] at this time
--- NOTE | 2025-01-10 03:36 | NURSING ---
Pt was taken to [facility] at this time. Belongings were already sent home with family-Aileen daughter.
--- NOTE | 2025-01-10 07:59 | EXP.PCM_ITS ---
Preliminary Cause of Preliminary Cause of Preliminary Cause of : Acute on chronic hypoxic respiratory failure secondary to pneumonia and underlying chronic obstructive pulmonary disease Date of Admission: 01/06/25 Date of : 01/10/25 Principle Diagnosis 1. Acute on chronic respiratory failure secondary to pneumonia and underlying chronic obstructive pulmonary disease #2 right lower lobe pneumonia #3 chronic obstructive pulmonary disease #4 new onset atrial fibrillation with RVR #5 failure to thrive #6 chronic severe protein and caloric malnutrition #7 acute upper GI bleed-exact etiology unclear #8 acute blood loss anemia from acute upper GI bleed Problem List: Active and Suspected Problems (Updated 01/09/25 @ 17:[address] Solares Friend, DO) GI bleed (Acute) Dehydration (Acute) Dyspnea (Acute) Atrial fibrillation, new onset (Acute) Hospital Course This 89-year-old white male was seen in the emergency room at [facility] after being brought in by squad due to generalized weakness at home, he was found to be hypoxic on his home oxygen setting of 2 L. Evaluation in the ER revealed the patient to be in atrial fibrillation with rapid ventricular response, chest x-ray showed evidence of right lower lobe infiltrate with loculated effusion. Conversations were carried out with the patient's family regarding transfer to a tertiary facility for treatment of the right pleural effusion, patient and patient's family decided not to have the patient transferred. Patient was admitted to PCU, he was placed on IV antibiotics and medications were administered for rate control. Patient was started on Eliquis. Patient ultimately converted to normal sinus rhythm, unfortunately on 01/09/2025, patient developed massive amounts of melanotic stool which was liquid in nature, patient's oxygenation declined and he had to be placed on Airvo. Patient was too unstable to undergo endoscopy. Conversations were carried out with the patient's daughter-she was the contact lens polisher to discuss healthcare issues with the patient due to the fact that the patient's had dementia. It was decided that the patient would not be transferred into the ICU or be placed on pressors or intubated. Patient's respiratory status declined further on 01/09/2025, ultimately the patient was placed on Airvo but this was withdrawn at the family's request and the patient ultimately at 1:30 AM on 01/10/2025.
== END 2025-01-10 03:36 | DRG 308 ==
LOC: ED 17:14 → PCU 17:19
PROVIDERS: Internal Medicine; Admitting Provider Hospitalist; Emergency Provider Emergency Medicine; PCP Family Medicine; Visit Provider Internal Medicine
DX: I48.0 Paroxysmal atrial fibrillation (principal); J18.9 Pneumonia, unspecified organism; J96.21 Acute and chronic respiratory failure with hypoxia; E43 Unspecified severe protein-calorie malnutrition; J44.0 Chronic obstructive pulmonary disease with (acute) lower respiratory infection; J96.11 Chronic respiratory failure with hypoxia; D62 Acute posthemorrhagic anemia; J44.1 Chronic obstructive pulmonary disease with (acute) exacerbation; J91.8 Pleural effusion in other conditions classified elsewhere; D68.32 Hemorrhagic disorder due to extrinsic circulating anticoagulants; K92.2 Gastrointestinal hemorrhage, unspecified; Z68.1 Body mass index [BMI] 19.9 or less, adult; R57.8 Other shock; L89.152 Pressure ulcer of sacral region, stage 2; Z66 Do not resuscitate; I50.9 Heart failure, unspecified; I34.0 Nonrheumatic mitral (valve) insufficiency; I47.10 Supraventricular tachycardia, unspecified; I25.10 Atherosclerotic heart disease of native coronary artery without angina pectoris; J43.2 Centrilobular emphysema; E86.0 Dehydration; I95.9 Hypotension, unspecified; T45.515A Adverse effect of anticoagulants, initial encounter; R62.7 Adult failure to thrive; H91.90 Unspecified hearing loss, unspecified ear; Z23 Encounter for immunization; Z79.899 Other long term (current) drug therapy; Z87.891 Personal history of nicotine dependence
CPT/HCPCS: 36415; 36600; 71045; 71275; 80048; 80202; 81001; 82274; 82803; 83605; 83615; 83735; 83880; 84155; 84484; 85014; 85018; 85025; 85027; 85610; 85730; 86850; 86900; 86901; 87040; 87070; 87086; 87088; 87205; 87449; 87631; 92610; 93005; 93306; 94640; 94660; 94762; 97162; 97166; 97802; 99285; P9016; Q9957; Q9967; A4216